=== PATIENT | female | born 1960 | race Two or more races ===

== ENCOUNTER 2022-11-18 09:34 | Emergency (ER) | payer MEDICARE, SELFPAY ==
[2022-11-18 09:54] VITALS: PULSE 75; RESP 18; TEMP 36.6; O2SAT 100; BMI 27.1
--- NOTE | 2022-11-18 09:59 | XR_ITS ---
The [address] [address] Patient Name: VIC POST MRN: [id number] date: 1960 Sex: F Assigned Patient Location: ER Current Patient Location: ED.MAIN Accession/Order Number: [id number] Exam Date: 11/18/2022 10:25 Report Date: 11/18/2022 11:14 At the request of: FLORIN RITTER Procedure: XR ribs RT min 3V w CXR1V PROCEDURE: XR shoulder RT min 2V, XR ribs RT min 3V w CXR1V HISTORY: fall COMPARISON: None. FINDINGS: BONES:Mild degenerative changes of the acromioclavicular joint and glenohumeral joint. Nondisplaced fractures involving the lateral right third and fourth ribs. SOFT TISSUES:No visible soft tissue swelling. EFFUSION:None visible. OTHER: Negative. XR/XR ribs RT min 3V w CXR1V IMPRESSION: 1. Acute, nondisplaced fractures of the lateral right third and fourth ribs. No appreciable pneumothorax or pleural effusion. 2. Mild degenerative changes of the shoulder joints. Electronically authenticated by: JAMES ALEX Date: 11/18/2022 11:14
--- NOTE | 2022-11-18 09:59 | XR_ITS ---
The [address] [address] Patient Name: VIC POST MRN: [id number] date: 1960 Sex: F Assigned Patient Location: ER Current Patient Location: ED.MAIN Accession/Order Number: [id number] Exam Date: 11/18/2022 10:25 Report Date: 11/18/2022 11:14 At the request of: FLORIN RITTER Procedure: XR shoulder RT min 2V PROCEDURE: XR shoulder RT min 2V, XR ribs RT min 3V w CXR1V HISTORY: fall COMPARISON: None. FINDINGS: BONES:Mild degenerative changes of the acromioclavicular joint and glenohumeral joint. Nondisplaced fractures involving the lateral right third and fourth ribs. SOFT TISSUES:No visible soft tissue swelling. EFFUSION:None visible. OTHER: Negative. XR/XR shoulder RT min 2V IMPRESSION: 1. Acute, nondisplaced fractures of the lateral right third and fourth ribs. No appreciable pneumothorax or pleural effusion. 2. Mild degenerative changes of the shoulder joints. Electronically authenticated by: JAMES ALEX Date: 11/18/2022 11:14
--- NOTE | 2022-11-18 09:59 | XR_ITS ---
The [address] [address] Patient Name: VIC POST MRN: [id number] date: 1960 Sex: F Assigned Patient Location: ER Current Patient Location: ER Accession/Order Number: [id number] Exam Date: 11/18/2022 10:25 Report Date: 11/18/2022 11:17 At the request of: FLORIN RITTER Procedure: XR wrist RT min 3V PROCEDURE: XR wrist RT min 3V HISTORY: fall ; pain after falling COMPARISON: None. FINDINGS: BONES:Thin curvilinear calcification lateral to the lateral margin of the distal radius without appreciable donor site. Intact carpal bones and joint spaces. SOFT TISSUES:No visible soft tissue swelling. Marked atherosclerotic disease. EFFUSION:None visible. OTHER: Negative. XR/XR wrist RT min 3V IMPRESSION: 1. Tiny cortical avulsion fracture from lateral margin of distal radius versus artifact from atherosclerotic disease. Correlate for tenderness in this area. Electronically authenticated by: JAMES ALEX Date: 11/18/2022 11:17
--- NOTE | 2022-11-18 10:00 | ED.FALL1 ---
HPI - Fall General Chief Complaint: Fall Stated Complaint: FELL INJURED R ARM Time Seen by Provider: 11/18/22 09:44 Source: patient Mode of arrival: walk-in History of Present Illness HPI Narrative: 62-year-old female presents for pain in her right wrist and shoulder and ribs. Two days ago she was walking and tripped on the sidewalk and fell and landed on this area. She didn't hit her head. She doesn't take blood thinners. the pain is moderate to severe and worse when she moves. No abdominal pain or complaints of shortness of breath. Related Data Home Medications Medication Instructions Recorded Confirmed atorvastatin 10 mg tablet 10 mg PO DAILY 11/18/22 11/18/22 carvedilol 25 mg tablet 25 mg PO BID 11/18/22 11/18/22 furosemide 40 mg tablet 40 mg PO BID 11/18/22 11/18/22 magnesium oxide 400 mg (241.3 mg 400 mg PO DAILY PRN constipation 11/18/22 11/18/22 magnesium) tablet pantoprazole 40 mg tablet,delayed 40 mg PO BID 11/18/22 11/18/22 release sodium di- and 1 tab PO QID 11/18/22 11/18/22 monophosphate-potassium phos monobasic 250 mg tablet (Loi-Phos Neutral) spironolactone 100 mg tablet 50 mg PO BID 11/18/22 11/18/22 ursodiol 300 mg capsule 300 mg PO QID 11/18/22 11/18/22 Previous Rx's Medication Instructions Recorded tramadol 50 mg tablet 50 mg PO Q8H PRN pain #20 tabs 11/18/22 Allergies Allergy/AdvReac Type Severity Reaction Status Date / Time No Known Drug Allergies Allergy Verified 11/18/22 09:57 Review of Systems ROS Narrative A ten point review of systems is negative except as noted above. Exam Narrative Exam Narrative: Nurses note and vital signs reviewed and patient is not hypoxic. General: The patient appears in no apparent distress. Skin: Warm, dry, no pallor noted. There is no rash noted. Head: Normocephalic, atraumatic Eye: Normal conjunctiva, no drainage Ears, Nose, Mouth, and Throat: oral mucosa is moist. Nares patent. Cardiovascular: Regular Rate and Rhythm Respiratory: Patient is in no distress, no accessory muscle use, lungs are clear to auscultation, no wheezing, rales or rhonchi Back: cervical, thoracic, lumbar spines are nontender GI: nontender Musculoskeletal: right hip is nontender. The right knee has some bruising and minimal tenderness. She has some mild swelling in the right wrist. Skin intact. Fingers have full range of motion. Right elbow nontender. She is reluctant to move her right shoulder and seems to have some tenderness in the scapular area. She also has some tenderness laterally in the rib region but no crepitus or break in the skin. Neurological: A&O Psychiatric: Cooperative Constitutional Vital Signs, click to edit/add: Last Vital Signs Temp 97.9 F 11/18/22 09:54 Pulse 75 11/18/22 09:54 Resp 18 11/18/22 09:54 BP 92/54 11/18/22 10:03 Pulse Ox 100 11/18/22 09:54 O2 Del Method Room Air 11/18/22 09:54 Course Vital Signs Vital signs: Vital Signs Temperature 97.9 F 11/18/22 09:54 Pulse Rate 75 11/18/22 09:54 Respiratory Rate 18 11/18/22 09:54 Pulse Oximetry 100 11/18/22 09:54 Oxygen Delivery Method Room Air 11/18/22 09:54 Temperature 97.9 F 11/18/22 09:54 Pulse Rate 75 11/18/22 09:54 Respiratory Rate 18 11/18/22 09:54 Blood Pressure 92/54 11/18/22 10:03 Pulse Oximetry 100 11/18/22 09:54 Oxygen Delivery Method Room Air 11/18/22 09:54 MDM - Fall MDM Narrative Medical decision making narrative: right 3rd and 4th rib fractures are identified. She had questionable avulsion fracture of the distal radius but on physical exam she has no tenderness in that area and I do not feel that is an acute fracture. Splint applied, application checked by me and found to be appropriate, she is neurovascularly intact. CAT scan also shows questionable liver finding. She'll raise sees a liver specialist in both [place] and in [place] and had an ultrasound of her liver two weeks ago. She'll follow-up with her established liver specialist in that regard. Treatment diagnosis and follow-up were discussed with the patient Differential Diagnosis Differential diagnosis: Likely fracture of wrist and other (rib fracture, chest contusion, pneumothorax) Lab Data Attestation: I reviewed the patient's lab results. Labs: Lab Results 11/18/22 Range/Units 11:29 WBC 8.0 (4.0-11.0) 10^3/uL RBC 3.42 L (4.20-5.40) 10^6/uL Hgb 10.7 L (12.0-16.0) g/dL Hct 31.2 L (36.0-48.0) % MCV 91.2 (81.0-99.0) fL MCH 31.3 (26.7-34.0) pg MCHC 34.3 (29.9-35.2) g/dL RDW 15.4 H (11.0-15.0) % Plt Count 73 L (150-450) 10^3/uL MPV 12.2 (9.5-13.5) fL Neut % (Auto) 79.9 H (43.0-75.0) % Lymph % (Auto) 8.1 L (20.5-60.0) % [facility] % (Auto) 11.0 (1.7-12.0) % Eos % (Auto) 0.2 L (0.9-7.0) % Baso % (Auto) 0.4 (0.2-2.0) % Neut # (Auto) 6.4 (1.4-6.5) 10^3/uL Lymph # (Auto) 0.7 L (1.2-3.8) 10^3/uL [facility] # (Auto) 0.9 H (0.3-0.8) 10^3/uL Eos # (Auto) 0.0 (0.0-0.7) 10^3/uL Baso # (Auto) 0.0 (0.0-0.1) 10^3/uL Abs Immat Gran (auto) 0.03 (0.00-0.03) 10^3/uL Imm/Tot Granulo (auto) 0.4 (0.0-0.5) % Sodium 126 L (136-145) mmol/L Potassium 4.5 (3.5-5.1) mmol/L Chloride 95 L (98-107) mmol/L Carbon Dioxide 26.5 (21.0-32.0) mmol/L Anion Gap 9.0 BUN 14.0 (7.0-18.0) mg/dL Creatinine 0.91 (0.55-1.02) mg/dL Est GFR ( Amer) >60 (>=60) Est GFR (Non-Af Amer) >60 (>=60) BUN/Creatinine Ratio 15.4 Glucose 370 H (74-106) mg/dL Calcium 7.6 L (8.5-10.1) mg/dL Imaging Data rib x-rays, chest CT, knee x-ray, wrist x-ray: Radiologist's impression: Procedure: CT chest w con EXAMINATION: CT chest w con HISTORY: fall, 3rd and 4th rib fractures COMPARISON: CT abdomen pelvis 03/30/2021 TECHNIQUE: Multi-planar CT images were obtained without and/or with IV contrast as indicated by examination type. Axial, Coronal, and Sagittal images. Dose reduction techniques were achieved by using automated exposure control and/or adjustment of mA and/or kV according to patient size and/or use of iterative reconstruction technique. FINDINGS: LUNGS: No visible pulmonary disease. PLEURA: No mass, effusion, or pneumothorax. VASCULATURE: No abnormality. FLORINA: No mass or adenopathy. MEDIASTINUM: No mass or adenopathy. CARDIAC: Atherosclerotic coronary artery disease. No pericardial effusion. AORTA: No aneurysm or dissection. CHEST WALL: No mass or axillary adenopathy. BONES: Nondisplaced acute fractures of the anterior lateral right third and fourth ribs (best seen on the coronal view). Sclerosis of a short segment of the anterior lateral left sixth and seventh ribs. LIMITED ABDOMEN: Heterogeneous nodular liver with new geographic shaped 6.0 x 4.6 x 4.7 cm area within the posterior medial right hepatic lobe demonstrating mixed density and heterogeneous enhancement. Limited images of the upper abdomen. OTHER: Negative. IMPRESSION: 1. Nondisplaced acute right third and fourth rib fractures. No pneumothorax or pleural effusion. 2. Sclerotic, slightly expansile appearance of the lateral left sixth and seventh ribs; old fractures versus bone lesions (new compared to 03/30/2021). 3. Heterogeneously enhancing geographic shaped lesion within posterior right hepatic lobe which is new since 03/30/2021 and suspicious for neoplasm. Follow-up CT abdomen pelvis with multiphase liver enhancement is recommended for further evaluation. 4. Heterogeneous nodular liver suggestive of cirrhosis. Electronically authenticated by: JAMES ALEX Date: 11/18/2022 12:26 Procedure: XR ribs RT min 3V w CXR1V PROCEDURE: XR shoulder RT min 2V, XR ribs RT min 3V w CXR1V HISTORY: fall COMPARISON: None. FINDINGS: BONES:Mild degenerative changes of the acromioclavicular joint and glenohumeral joint. Nondisplaced fractures involving the lateral right third and fourth ribs. SOFT TISSUES:No visible soft tissue swelling. EFFUSION:None visible. OTHER: Negative. IMPRESSION: 1. Acute, nondisplaced fractures of the lateral right third and fourth ribs. No appreciable pneumothorax or pleural effusion. 2. Mild degenerative changes of the shoulder joints. Electronically authenticated by: JAMES ALEX Date: 11/18/2022 11:14 Procedure: XR wrist RT min 3V PROCEDURE: XR wrist RT min 3V HISTORY: fall ; pain after falling COMPARISON: None. FINDINGS: BONES:Thin curvilinear calcification lateral to the lateral margin of the distal radius without appreciable donor site. Intact carpal bones and joint spaces. SOFT TISSUES:No visible soft tissue swelling. Marked atherosclerotic disease. EFFUSION:None visible. OTHER: Negative. IMPRESSION: 1. Tiny cortical avulsion fracture from lateral margin of distal radius versus artifact from atherosclerotic disease. Correlate for tenderness in this area. Electronically authenticated by: JAMES ALEX Date: 11/18/2022 11:17 Procedure: XR shoulder RT min 2V PROCEDURE: XR shoulder RT min 2V, XR ribs RT min 3V w CXR1V HISTORY: fall COMPARISON: None. FINDINGS: BONES:Mild degenerative changes of the acromioclavicular joint and glenohumeral joint. Nondisplaced fractures involving the lateral right third and fourth ribs. SOFT TISSUES:No visible soft tissue swelling. EFFUSION:None visible. OTHER: Negative. IMPRESSION: 1. Acute, nondisplaced fractures of the lateral right third and fourth ribs. No appreciable pneumothorax or pleural effusion. 2. Mild degenerative changes of the shoulder joints. Electronically authenticated by: JAMES ALEX Date: 11/18/2022 11:14 Procedure: XR knee RT 3V PROCEDURE: XR knee RT 3V HISTORY: fall COMPARISON: None. FINDINGS: BONES:No fracture, acute abnormality, or significant arthropathy. SOFT TISSUES:No visible soft tissue swelling. EFFUSION:None visible. OTHER: Atherosclerotic disease. IMPRESSION: 1. No acute bone abnormality or significant degenerative joint disease. Electronically authenticated by: JAMES ALEX Date: 11/18/2022 11:19 Discharge Plan Discharge Chief Complaint: Fall Clinical Impression: Closed rib fracture Patient Disposition: Home, Self-Care Time of Disposition Decision: 13:34 Condition: Good Mode of Transportation: Private Vehicle Prescriptions / Home Meds: New tramadol 50 mg tablet 50 mg PO Q8H PRN (Reason: pain) Qty: 20 0RF No Action atorvastatin 10 mg tablet 10 mg PO DAILY carvedilol 25 mg tablet 25 mg PO BID furosemide 40 mg tablet 40 mg PO BID magnesium oxide 400 mg (241.3 mg magnesium) tablet 400 mg PO DAILY PRN (Reason: constipation) pantoprazole 40 mg tablet,delayed release (DR/EC) 40 mg PO BID Loi-Phos 250 Neutral 250 mg tablet 1 tab PO QID spironolactone 100 mg tablet 50 mg PO BID ursodiol 300 mg capsule 300 mg PO QID Instructions: Rib Fracture (ED) Additional Instructions: follow-up with PCP in one week, return for any worsening symptoms Stand Alone Forms: Portal Instructions Referrals: Physician,Non-Staff, MD [Primary Care Provider] - 1 week
--- NOTE | 2022-11-18 10:01 | XR_ITS ---
The [address] [address] Patient Name: VIC POST MRN: [id number] date: 1960 Sex: F Assigned Patient Location: ER Current Patient Location: ED.MAIN Accession/Order Number: [id number] Exam Date: 11/18/2022 10:25 Report Date: 11/18/2022 11:19 At the request of: FLORIN RITTER Procedure: XR knee RT 3V PROCEDURE: XR knee RT 3V HISTORY: fall COMPARISON: None. FINDINGS: BONES:No fracture, acute abnormality, or significant arthropathy. SOFT TISSUES:No visible soft tissue swelling. EFFUSION:None visible. OTHER: Atherosclerotic disease. XR/XR knee RT 3V IMPRESSION: 1. No acute bone abnormality or significant degenerative joint disease. Electronically authenticated by: JAMES ALEX Date: 11/18/2022 11:19
[2022-11-18 10:03] VITALS: BP 92/54
--- NOTE | 2022-11-18 11:22 | CT_ITS ---
[address] [address] Patient Name: VIC POST MRN: [id number] date: 1960 Sex: F Assigned Patient Location: ER Current Patient Location: Accession/Order Number: [id number] Exam Date: 11/18/2022 11:55 Report Date: 11/18/2022 12:26 At the request of: FLORIN RITTER Procedure: CT chest w con EXAMINATION: CT chest w con HISTORY: fall, 3rd and 4th rib fractures COMPARISON: CT abdomen pelvis 03/30/2021 TECHNIQUE: Multi-planar CT images were obtained without and/or with IV contrast as indicated by examination type. Axial, Coronal, and Sagittal images. Dose reduction techniques were achieved by using automated exposure control and/or adjustment of mA and/or kV according to patient size and/or use of iterative reconstruction technique. FINDINGS: LUNGS: No visible pulmonary disease. PLEURA: No mass, effusion, or pneumothorax. VASCULATURE: No abnormality. FLORINA: No mass or adenopathy. MEDIASTINUM: No mass or adenopathy. CARDIAC: Atherosclerotic coronary artery disease. No pericardial effusion. AORTA: No aneurysm or dissection. CHEST WALL: No mass or axillary adenopathy. BONES: Nondisplaced acute fractures of the anterior lateral right third and fourth ribs (best seen on the coronal view). Sclerosis of a short segment of the anterior lateral left sixth and seventh ribs. LIMITED ABDOMEN: Heterogeneous nodular liver with new geographic shaped 6.0 x 4.6 x 4.7 cm area within the posterior medial right hepatic lobe demonstrating mixed density and heterogeneous enhancement. Limited images of the upper abdomen. OTHER: Negative. CT/CT chest w con IMPRESSION: 1. Nondisplaced acute right third and fourth rib fractures. No pneumothorax or pleural effusion. 2. Sclerotic, slightly expansile appearance of the lateral left sixth and seventh ribs; old fractures versus bone lesions (new compared to 03/30/2021). 3. Heterogeneously enhancing geographic shaped lesion within posterior right hepatic lobe which is new since 03/30/2021 and suspicious for neoplasm. Follow-up CT abdomen pelvis with multiphase liver enhancement is recommended for further evaluation. 4. Heterogeneous nodular liver suggestive of cirrhosis. Electronically authenticated by: JAMES ALEX Date: 11/18/2022 12:26
[2022-11-18 11:43] LABS: BUN Creatinine Ratio 15.4; Basophils Percent Auto 0.4 % (0.2-2.0); Calcium 7.6 mg/dL (8.5-10.1); Carbon Dioxide 26.5 mmol/L (21.0-32.0); Chloride 95 mmol/L (98-107); Eosinophils Percent Auto 0.2 % (0.9-7.0); Estimated GFR (African America >60 (>=60); Estimated GFR (Non-African Ame >60 (>=60); Glucose 370 mg/dL (74-106); Hematocrit 31.2 % (36.0-48.0); Hemoglobin 10.7 g/dL (12.0-16.0); Immature Granulocytes Abs Auto 0.03 10^3/uL (0.00-0.03); Immature Granulocytes Pct Auto 0.4 % (0.0-0.5); Lymphocytes Absolute Auto 0.7 10^3/uL (1.2-3.8); Lymphocytes Percent Auto 8.1 % (20.5-60.0); Mean Corpuscular HGB Conc 34.3 g/dL (29.9-35.2); Mean Corpuscular Hemoglobin 31.3 pg (26.7-34.0); Mean Corpuscular Volume 91.2 fL (81.0-99.0); Mean Platelet Volume 12.2 fL (9.5-13.5); Monocytes Absolute Auto 0.9 10^3/uL (0.3-0.8); Neutrophils Absolute Auto 6.4 10^3/uL (1.4-6.5); Neutrophils Percent Auto 79.9 % (43.0-75.0); Platelet Count 73 10^3/uL (150-450); Potassium 4.5 mmol/L (3.5-5.1); Red Blood Count 3.42 10^6/uL (4.20-5.40); Red Cell Distribution Width 15.4 % (11.0-15.0); Sodium 126 mmol/L (136-145)
--- NOTE | 2022-11-18 15:18 | RESP.RT ---
done per nursing
== END 2022-11-18 13:50 | disposition home or self-care (01) ==
PROVIDERS: Emergency Provider Emergency Medicine
DX: S22.41XA Multiple fractures of ribs, right side, initial encounter for closed fracture (principal); W01.0XXA Fall on same level from slipping, tripping and stumbling without subsequent striking against object, initial encounter; Z79.899 Other long term (current) drug therapy
CPT/HCPCS: 36415; 71101; 71260; 73030; 73110; 73562; 80048; 85025; 94667; 99284; Q9967

== ENCOUNTER 2023-06-22 15:01 | Emergency (ER) | payer MEDICARE, SELFPAY ==
[2023-06-22 15:25] VITALS: BP 127/65; PULSE 89; TEMP 36.7; O2SAT 99; BMI 24.9
--- NOTE | 2023-06-22 15:29 | XR_ITS ---
The [address] [address] Patient Name: VIC POST MRN: [id number] date: 1960 Sex: F Assigned Patient Location: ER Current Patient Location: ER Accession/Order Number: [id number] Exam Date: 06/22/2023 15:50 Report Date: 06/22/2023 16:19 At the request of: NASRA CALDWELL Procedure: XR knee RT 4V PROCEDURE: XR knee RT 4V COMPARISON: 11/18/2022 HISTORY: fall, right knee pain FINDINGS: BONES:No fracture, acute abnormality, or significant arthropathy. SOFT TISSUES:Medial soft tissue swelling EFFUSION:None visible. OTHER: Moderate vascular calcifications XR/XR knee RT 4V IMPRESSION: Medial soft tissue swelling, no acute fracture Electronically authenticated by: LAURENT PETTY Date: 06/22/2023 16:19
--- NOTE | 2023-06-22 15:30 | ED_ITS ---
HPI HPI - Extremity Injury (Lower) General Chief Complaint: Extremity Injury, Lower Stated Complaint: lower pain right knee Time Seen by Provider: 06/22/23 15:12 Source: patient Mode of arrival: Wheelchair Limitations: no limitations History of Present Illness HPI Narrative: Patient fell two days ago and landed onto a bent right knee. She complains of pain and swelling to the anterior right knee. She also scraped up the left knee but I can move it and put weight on it ok . Related Data Home Medications ?Medication ?Instructions ?Recorded ?Confirmed atorvastatin 10 mg tablet 10 mg PO DAILY 11/18/22 06/22/23 furosemide 40 mg tablet 40 mg PO BID 11/18/22 06/22/23 magnesium oxide 400 mg (241.3 mg 400 mg PO DAILY PRN constipation 11/18/22 06/22/23 magnesium) tablet pantoprazole 40 mg tablet,delayed 40 mg PO BID 11/18/22 06/22/23 release sodium di- and 1 tab PO QID 11/18/22 06/22/23 monophosphate-potassium phos monobasic 250 mg tablet (Loi-Phos Neutral) spironolactone 100 mg tablet 50 mg PO BID 11/18/22 06/22/23 ursodiol 300 mg capsule 300 mg PO QID 11/18/22 06/22/23 gabapentin 300 mg capsule 300 mg PO Q8H 06/22/23 06/22/23 Allergies Allergy/AdvReac Type Severity Reaction Status Date / Time No Known Drug Allergies Allergy Verified 11/18/22 09:57 Opioid HPI Opioid Management Most Recent Pain and Opioid Data: Last Pain Scale 7 06/22/23 15:27 Exam Narrative Exam Narrative: Vital signs reviewed and nurse's notes. The patient is not hypoxic. afebrile General: The patient appears well and in no apparent distress. Patient is resting comfortably on cart. GCS = 15. Skin: warm, intact, no pallor noted Head: Normocephalic, atraumatic Eye: Normal conjunctiva Cardiovascular: normal peripheral perfusion Respiratory: No acute distress, no accessory muscle use. Musculoskeletal: No evidence of deformity to the L knee, where superficial abras ions are noted but no erythema or sign of infection. RIGHT KNEE: There is moderate amount of suprapatellar swelling. There is no ecchymosis. No erythema or warmth noted. DP and PT pulses are intact 2+. Normal sensation, normal capillary refill less than 2 seconds. There is no cyanosis or mottling noted. The patient has tenderness to the medial aspect of the right knee. No pain with right patellar manipulation. The patient has no laxity with varus or valgus stressing. The patient has negative anterior drawer and Robin testing. The patient was able to flex and extend although with pain. Patient was able to extend leg off the cart without difficulty. No tenderness noted to the 5th MT, midfoot, ankle or proximal fibular area. The patient has no pelvic instability. The patient has no shortening or rotation noted to the bilateral lower extremities. Neurological: alert and orient x4, normal sensory and motor observed. Psychiatric: Cooperative Constitutional Vital Signs, click to edit/add: Last Vital Signs Temp 98.0 F 06/22/23 15:25 Pulse 89 06/22/23 15:25 Resp 16 06/22/23 15:25 BP 127/65 06/22/23 15:25 Pulse Ox 99 06/22/23 15:25 O2 Del Method Room Air 06/22/23 15:25 Course Vital Signs Vital signs: Vital Signs Temperature 98.0 F 06/22/23 15:25 Pulse Rate 89 06/22/23 15:25 Respiratory Rate 16 06/22/23 15:25 Blood Pressure 127/65 06/22/23 15:25 Pulse Oximetry 99 06/22/23 15:25 Oxygen Delivery Method Room Air 06/22/23 15:25 Temperature 98.0 F 06/22/23 15:25 Pulse Rate 89 06/22/23 15:25 Respiratory Rate 16 06/22/23 15:25 Blood Pressure 127/65 06/22/23 15:25 Pulse Oximetry 99 06/22/23 15:25 Oxygen Delivery Method Room Air 06/22/23 15:25 MDM - Extremity Injury (Lower) MDM Narrative Medical decision making narrative: Patient has liver problems and was reluctant to take tylenol or ibuprofen for the pain. Xrays of the right knee obtained. Imaging Data xr knee: Radiologist's impression: PROCEDURE: XR knee RT 4V COMPARISON: 11/18/2022 HISTORY: fall, right knee pain FINDINGS: BONES:No fracture, acute abnormality, or significant arthropathy. SOFT TISSUES:Medial soft tissue swelling EFFUSION:None visible. OTHER: Moderate vascular calcifications IMPRESSION: Medial soft tissue swelling, no acute fracture Electronically authenticated by: LAURENT PETTY Date: 06/22/2023 16:19 Discharge Plan Discharge Stand Alone Forms: Portal Instructions Chief Complaint: Extremity Injury, Lower Clinical Impression: Right knee sprain, Knee pain, right Patient Disposition: Home, Self-Care Time of Disposition Decision: 16:28 Prescriptions / Home Meds: No Action atorvastatin 10 mg tablet 10 mg PO DAILY furosemide 40 mg tablet 40 mg PO BID magnesium oxide 400 mg (241.3 mg magnesium) tablet 400 mg PO DAILY PRN (Reason: constipation) pantoprazole 40 mg tablet,delayed release (DR/EC) 40 mg PO BID Loi-Phos 250 Neutral 250 mg tablet 1 tab PO QID spironolactone 100 mg tablet 50 mg PO BID ursodiol 300 mg capsule 300 mg PO QID gabapentin 300 mg capsule 300 mg PO Q8H Print Language: Yoruba Instructions: Knee Sprain (ED), Knee Pain (ED) Referrals: FAY BERMUDEZ [Primary Care Provider] - 1 week Florentin Evans MD [Physician] - 06/28/23 9:30 am
== END 2023-06-22 16:38 | disposition home or self-care (01) ==
PROVIDERS: Emergency Provider Emergency Medicine; PCP Nurse Practitioner
DX: S83.91XA Sprain of unspecified site of right knee, initial encounter (principal); M25.561 Pain in right knee; W19.XXXA Unspecified fall, initial encounter; Z79.899 Other long term (current) drug therapy
CPT/HCPCS: 73564; 99283

== ENCOUNTER 2024-04-07 15:52 | Emergency (ER) | payer MEDICARE, SELFPAY ==
[2024-04-07 16:14] VITALS: BP 102/40; PULSE 70; TEMP 36.8; O2SAT 98; BMI 27.4
[2024-04-07 17:02] LABS: Internal Control Within Normal Limits; SARS-CoV-2 Ag NEGATIVE (NEGATIVE)
--- NOTE | 2024-04-07 17:41 | ED.URI1 ---
HPI - URI/Sore Throat General Chief Complaint: Upper Respiratory Infection Stated Complaint: Flu Symptoms Time Seen by Provider: 04/07/24 17:07 Source: patient History of Present Illness HPI Narrative: Patient is a 64-year-old female presents to the emergency department for 2-day history of flulike illness. She states her granddaughter had COVID last week. Patient has had no fevers, chest pain or shortness of breath. She reports a cough and nasal congestion and 2 days of diarrhea. No medications taken prior to arrival. She denies abdominal pain or vomiting. Related Data Home Medications ?Medication ?Instructions ?Recorded ?Confirmed atorvastatin 10 mg tablet 10 mg PO DAILY 11/18/22 06/22/23 furosemide 40 mg tablet 40 mg PO BID 11/18/22 06/22/23 magnesium oxide 400 mg (241.3 mg 400 mg PO DAILY PRN constipation 11/18/22 06/22/23 magnesium) tablet pantoprazole 40 mg tablet,delayed 40 mg PO BID 11/18/22 06/22/23 release sodium di- and 1 tab PO QID 11/18/22 06/22/23 monophosphate-potassium phos monobasic 250 mg tablet (Loi-Phos Neutral) spironolactone 100 mg tablet 50 mg PO BID 11/18/22 06/22/23 ursodiol 300 mg capsule 300 mg PO QID 11/18/22 06/22/23 gabapentin 300 mg capsule 300 mg PO Q8H 06/22/23 06/22/23 Previous Rx's ?Medication ?Instructions ?Recorded uadwiyphevlarna-znrnetapudlslsb-PG 10 ml PO Q6H PRN cold symptoms 04/07/24 2 mg-30 mg-10 mg/5 mL oral syrup #200 mL (Bromfed DM) ondansetron 4 mg disintegrating 4 mg PO Q6H PRN nausea and 04/07/24 tablet vomiting #12 tabs Allergies Allergy/AdvReac Type Severity Reaction Status Date / Time No Known Drug Allergies Allergy Verified 11/18/22 09:57 Review of Systems ROS Constitutional Denies: fever or chills Ears, nose, mouth, and throat Reports: nasal congestion; Denies: throat pain Cardiovascular Denies: chest pain Respiratory Reports: cough; Denies: shortness of breath Gastrointestinal Reports: diarrhea; Denies: nausea or vomiting Integumentary/Breast Denies: rash Neurological Denies: numbness in extremities or weakness in extremities Hematologic/Lymphatic Denies: easy bruising or easy bleeding PFSH PFS Social History Little interest or pleasure in doing things: not at all Feeling down, depressed, or hopeless: not at all Exam Narrative Exam Narrative: Gen.: Awake, alert, in no distress Head: Normocephalic, atraumatic ENT: Moist mucous membranes Respiratory: No respiratory distress, lungs clear bilaterally Cardio: Regular rate and rhythm Gastrointestinal: Abdomen is soft, nondistended and nontender to palpation Extremities: Moves extremities equally Psych: Normal mood and affect Neuro: No focal neuro deficit Skin: Warm, dry, intact Constitutional Vital Signs, click to edit/add: Last Vital Signs Temp 98.2 F 04/07/24 16:14 Pulse 70 04/07/24 16:14 Resp 18 04/07/24 16:14 BP 102/40 L 04/07/24 16:14 Pulse Ox 98 04/07/24 16:14 O2 Del Method Room Air 04/07/24 16:14 Course Vital Signs Vital signs: Vital Signs Temperature 98.2 F 04/07/24 16:14 Pulse Rate 70 04/07/24 16:14 Respiratory Rate 18 04/07/24 16:14 Blood Pressure 102/40 L 04/07/24 16:14 Pulse Oximetry 98 04/07/24 16:14 Oxygen Delivery Method Room Air 04/07/24 16:14 Temperature 98.2 F 04/07/24 16:14 Pulse Rate 70 04/07/24 16:14 Respiratory Rate 18 04/07/24 16:14 Blood Pressure 102/40 L 04/07/24 16:14 Pulse Oximetry 98 04/07/24 16:14 Oxygen Delivery Method Room Air 04/07/24 16:14 MDM - URI/Sore Throat MDM Narrative Medical decision making narrative: COVID test is negative, patient is hemodynamically stable with normal vital signs. She has no abdominal pain or vomiting. She has no complaints of chest pain or shortness of breath. She was given instructions for likely viral illness, Bromfed-DM and Zofran given for home. Push fluids. Return to the ER if symptoms change or worsen. SUPERVISED APC VISIT, PHYSICIAN ATTESTATION: Based on the medical record the care appears appropriate. ? Medical Records Attestation: I reviewed the patient's medical records. Lab Data Attestation: I reviewed the patient's lab results. Labs: Lab Results 04/07/24 Range/Units 16:20 SARS-CoV-2 Ag (CV2AG) Negative (NEGATIVE) Discharge Plan Discharge Chief Complaint: Upper Respiratory Infection Clinical Impression: Upper respiratory infection, Flu-like symptoms Patient Disposition: Home, Self-Care Time of Disposition Decision: 17:38 Condition: Good Prescriptions / Home Meds: New fopuymehcrqyhju-ynonpiuri-SY [Bromfed DM] 2-30-10 mg/5 mL syrup 10 ml PO Q6H PRN (Reason: cold symptoms) Qty: 200 0RF ondansetron 4 mg tablet,disintegrating 4 mg PO Q6H PRN (Reason: nausea and vomiting) Qty: 12 0RF No Action atorvastatin 10 mg tablet 10 mg PO DAILY furosemide 40 mg tablet 40 mg PO BID magnesium oxide 400 mg (241.3 mg magnesium) tablet 400 mg PO DAILY PRN (Reason: constipation) pantoprazole 40 mg tablet,delayed release (DR/EC) 40 mg PO BID Loi-Phos 250 Neutral 250 mg tablet 1 tab PO QID spironolactone 100 mg tablet 50 mg PO BID ursodiol 300 mg capsule 300 mg PO QID gabapentin 300 mg capsule 300 mg PO Q8H Print Language: Kazakh Instructions: Upper Respiratory Infection (ED) Referrals: FAY BERMUDEZ [Primary Care Provider] - 1 week
[2024-04-07] MEDS: ONDANSETRON 4 MG RAPDIS TABLET SL (18:10)
[2024-04-07] MEDS: DEXAMETHASONE SOD PHOS 10 MG/ML VIAL PO (18:10)
[2024-04-07 18:16] VITALS: PULSE 76; O2SAT 97; O2SAT 99
== END 2024-04-07 18:17 | disposition home or self-care (01) ==
PROVIDERS: Emergency Provider Student in an Organized Health Care Education/Training Program; PCP Nurse Practitioner
DX: J06.9 Acute upper respiratory infection, unspecified (principal); R05.9 Cough, unspecified
CPT/HCPCS: 87811; 99283; J1100; Q0162

== ENCOUNTER 2024-04-18 15:33 | Outpatient (OUT) | payer MEDICARE, SELFPAY ==
--- NOTE | 2024-04-18 16:00 | XR_ITS ---
The [address] [address] Patient Name: VIC POST MRN: [id number] date: 1960 Sex: F Assigned Patient Location: [facility] Current Patient Location: [facility] Accession/Order Number: [id number] Exam Date: 04/18/2024 16:37 Report Date: 04/18/2024 16:46 At the request of: FAY BERMUDEZ Procedure: XR chest 2V PA AND LATERAL CHEST: CLINICAL HISTORY: Wheezing, cough, body aches COMPARISON: 11/18/2022 chest x-ray and CT There is no focal parenchymal consolidation, effusion or pneumothorax. The cardiac, hilar and mediastinal silhouettes are within normal limits. There is no vascular congestion. There is subtle dextroscoliotic curvature. No acute osseous abnormalities are seen. There are hemostasis clips at the right upper quadrant. New embolization coils are present in the epigastric region. XR/XR chest 2V IMPRESSION: NO ACUTE CARDIOPULMONARY ABNORMALITY. Impression dictated by: Mari Tanner M.D.04/18/2024 4:46 PM Dictation Location: [place] [address] Electronically authenticated by: [id number] Y Date: 04/18/2024 16:46
== END 2024-04-18 15:34 | disposition home or self-care (01) ==
LOC: RAD 15:34
PROVIDERS: PCP Nurse Practitioner; Visit Provider Nurse Practitioner
DX: R06.02 Shortness of breath (principal); R06.2 Wheezing
CPT/HCPCS: 71046

== ENCOUNTER 2024-09-14 20:47 | Inpatient (IN) | payer MEDICARE, SELFPAY ==
[2024-09-14 20:52] VITALS: BP 155/94; PULSE 100; TEMP 37.2; O2SAT 98; BMI 20.1
[2024-09-14 20:53] VITALS: O2SAT 99
[2024-09-14 20:56] VITALS: BP 158/93; O2SAT 99
--- OUTSIDE RECORDS SUMMARY | 2024-09-14 20:56 | XMS_ITS | CCD ---
Author Organization [facility] CliniSymt Care Team Providers Care Distribution System Operator Name Role Phone DC Procedure Practitioner Unavailab ADALBERTO Campbell Surgeon Unavailable ADALBERTO VOGEL Attending Unavailable ADALBERTO VOGEL Admitting Unavailable SELF, REFERRED Referring Unavailable RAIN HEBERT Primary Care Unavailable PHONG, DR RAIN Strong Primary Care Unavailable PHONG, DR RAIN Strong Consulting Unavailable PHONG, DR RAIN Strong Attending Unavailable PHONG, DR RAIN Strong Admitting Unavailable LAURENT CLARK JR Attending Unavailable LAURENT CLARK JR Admitting Unavailable LAURENT CLARK JR Consulting Unavailable PHONG, DR RAIN Strong Primary Care Unavailable HEBERT, DR RAIN Strong Primary Care Unavailable MISC, DR LINDSEY Attending Unavailable MISC, DR LINDSEY Admitting Unavailable MISC, DR LINDSEY Consulting Unavailable FLORIN RITTER Admitting Unavailable FLORIN RITTER Attending Unavailable PHONG, DR RAIN Strong Primary Care Unavailable ZIEBER, DR JAMES Edward Consulting Unavailable FLORIN RITTER Consulting Unavailable JAVI, DR HAMMONDS Attending Unavailable JAVI, DR HAMMONDS Admitting Unavailable PHONG, DR RAIN Strong Primary Care Unavailable JAVI, DR HAMMONDS Consulting Unavailable JAVI, DR HAMMONDS Consulting Unavailable MARY, DR DELUNA Admitting Unavailable PHONG, DR RAIN Strong Primary Care Unavailable MARY, DR DELUNA Attending Unavailable Jena Melara Consulting Unavailable MARGARITA KEENE Attending Unavailable MARGARITA KEENE Admitting Unavailable MARGARITA KEENE Consulting Unavailable PHONG, DR RAIN Strong Primary Care Unavailable FELISHA DA SILVA Consulting Unavailable JOSIE PATTERSON Consulting Unavailable Sonal Jj Consulting Unavailable MAPUS, TONDRA Attending Unavailable MAPUS, TONDRA Admitting Unavailable MAPUS, TONDRA Consulting Unavailable PHONG, DR RAIN Strong Primary Care Unavailable LAURENT CLARK JR Attending Unavailable LAURENT CLARK JR Admitting Unavailable LAURENT CLARK JR Consulting Unavailable PHONG, DR RAIN Strong Primary Care Unavailable Mapus, Tondra Unavailable Laurnet Clark Unavailable Mickey Lovett Unavailable MD Rain Hebert Primary Care Provider Mapus RESAW FEEDER Tona Bryson Attending Provider MD Mickey Lovett Other Provider MD Rain Hebert Primary Care Provider Map, RESAW FEEDER Tondra K Attending Provider MD Nimesh Chin Attending Provider Nimesh Chin Unavailable MD Rain Hebert Primary Care Provider Mapus RESAW FEEDERWily Schulza Bryson Attending Provider MD Nimesh Chin Attending Provider NO FAMILY, PHYSICIAN Primary Care Provider Unava ilable MD Mickey Lovett Other Provider Al Gómez Unavailable Rain Hebert MD Primary Care Provider [phone] Nimesh Chin Unavailable MD Rain Hebert Primary Care Provider [employer] RESAW FEEDER Tona K Attending Provider NO FAMILY, PHYSICIAN Primary Care Provider Unava ilable MD Nimesh Chin Attending Provider MD Nimesh Chin Attending Provider [phone] JESSIE Lewis Primary Care Provider MD Mickey Lovett Other Provider Map[employer] RESAW FEEDER Tondra Massey Attending Provider [phone] NICOL Lewis-Jona Ward Primary Care Provider ALLY Elama Bryson Attending Provider MD Mickey Lovett Other Provider DO Harsha Wren Emergency Provider MD Danielle Sterling Admit Provider MD Danielle Glass Attending Provider Nimesh Chin MD Unavailable RAIN HEBERT Primary Care Unavailable SALLIE WEST ([place]) Referring Unavailable MD Arnoldo Arguello Attending Provider MD Nimesh Chin Other Provider Rain Hebert MD Primary Care Provider Joshua, JITTERBUG OPERATOR-C Chapis Ward Primary Care Provider ALLY Elam Attending Provider Joshua, JITTERBUG OPERATOR-C Chapis Ward Primary Care Provider MD Mickey Lovett Attending Provider MD Jena Cohen Referring Provider Joshua, Chapis L Admitting Unavailable Joshua, Chapis L Attending Unavailable Joshua, Chapis L Attending Unavailable Joshua, Chapis L Admitting Unavailable Joshua, Chapis L Attending Unavailable Joshua, Chapis L Attending Unavailable Joshua, Chapis L Attending Unavailable Joshua, Chapis L Primary Care Physician Dalia HOWE, Al Willams Unavailable Nimesh Chin MD Unavailable Joshua JITTERBUG OPERATOR-C, Chapis Ward Primary Care Provider Harsha Wren DO Emergency Provider Sarah Wolf MD Admit Provider Sarah Helm MD Attending Provider [phone] Teodora Fajardo MD Other Provider Rubin Kang MD Other Provider Jillian Mohan APRN Other Provider [phone] Jasiel Issa DO Other Provider Tremayne Pak MD Other Provider George Arciniega MD Other Provider Tamanna Barajas MD Other Provider Roger Robbins DO Other Provider Jena Long MD Other Provider Solo Waite DO Other Provider Forest Quiroz MD Attending Provider Darion Goss DO Emergency Provider [phone] Jordan Thomson DO Attending Provider Roger Robbins DO Attending Provider [phone] RAIN HEBERT Primary Care Unavailable Narda'ANGUIANOJENA Bolanos S Referring Unavailable NOEMI LOCKETT Attending Unavailable RAIN HEBERT Primary Care Unavailable Narda'JENA ANGUIANO Referring Unavailable Harsha Wren DO Emergency Provider Gini Roberto MD, Digna Other Provider Roger Robbins DO Attending Provider Tremayne Pak MD Attending Provider Kraig Hubbard DO Other Provider Kali Mccrary MD Other Provider Ricardo Mena DO Other Provider Emely HOWE, Deshaun Emergency Provider [phone] Mack Carmona MD Admit Provider Aly Hooks MD Attending Provider [phone] Scotty, Teodora Consulting Unavailable Forest Quiroz Attending Unavailable Chapis Lewis Primary Care Unavailable Sarah Helm Admitting Unavailable Rubin Kang Consulting Unavailable Jillian Mohan Consulting Unavailable Jasiel Issa Jr Consulting UnavailTremayne Mclaughlin Consulting Unavaila ble George Arciniega Consulting Unavailable Tamanna Barajas Consulting Unavailable Roger Robbins Consulting Unavailable Jena Long II Consulting UnavailSolo Jorge Consulting Unavailable Mack Carmona Admitting Unavailab Aly Villaseñor Attending Unavailable Joshua, Chapis Ward Primary Care Unavailable Keister, Darion Bolanos Attending Unavailable Keister, Darion A Admitting Unavailable Joshua, Chapis Ward Primary Care Unavailable Itzel, Roger A Attending Unavailable Itzel, Roger A Admitting Unavailable Joshua, Chapis Ward Primary Care Unavailable Jena Cohen Referring Unavailable Bakhous, Aziz Admitting Unavailable Joshua, Chapis Ward Primary Care Unavailable Bakhous, Aziz Attending Unavailable Bunting, Jordan R Attending Unavailable Bunting, Jordan R Admitting Unavailable Joshua, Chapis Ward Primary Care Unavailable Itzel, Roger A Attending Unavailable Itzel, Roger A Admitting Unavailable Joshua, Chapis Ward Primary Care Unavailable Joshua, Chapis L Attending Unavailable MOE KELLEY Attending Unavailab le Joshua, Chapis L Admitting Unavailable Joshua, Chapis L Attending Unavailable Joshua, Chapis L Attending Unavailable Joshua, Chapis L Attending Unavailable Allergies Allergy Classification Reported Allergen(s) Allergy Type Date of Onset Reaction(s) Facility (2 sources) No Known Medication Allergies; Translations: [No Known Medication Allergies] Propensity to adverse reactions (disorder) [facility] Medications Current Medications Medication Drug Class(es) Dates Sig (Normalized) Sig (Original) Acetaminophen / HYDROcodone (3 sources) Opioid Agonist HYDROcodone-Acet am inophen Active atorvastatin 10 mg oral tablet (20 sources) HMG-CoA Reductase Inhibitor Start: 01-03-2019 End: 06-04-2023 take 1 tablet by mouth once daily atorvastatin 10 mg Tab 10 mg = 1 tab(s), Oral, Daily, Refills(s) 0 Start Date: 01/03/19 Status: Ordered Repeat number: 1 blood sugar diagnostic (ONE TOUCH TEST MISC) (16 sources) blood sugar diagnostic (ONE TOUCH TEST MISC) Active blood sugar diag nostic (ONE TOUCH TEST MISC) Blood-Glucose Meter kit (2 sources) Start: 08-21-2024 Blood-Glucose Meter kit Active August 21, 2024 12:00am As Directed Calcium Carbonate-Vitamin D2 600 mg calcium- 200 unit tablet (2 sources) Start: 08-19-2024 take 1 tablet by mouth once daily Calcium Carbonate-Vitamin D2 600 mg calcium- 200 unit tablet Active 1 TAB PO Daily August 19, 2024 12:00am Complies with drug therapy 60 actuat fluticasone propionate 0.05 mg/actuat dry powder inhaler (16 sources) Corticosteroid take 1 puff(s) by inhalation twice daily Fluticasone Propionate 50 mcg/actuation diskus inhaler Inhale 1 Puff as instructed twice daily. Active Comment on above: Inhale 1 Puff as ins tructed twice daily. fluticasone / salmeterol (1 source) Corticosteroid, beta2-Adrenergic Agonist Start: 04-18-2024 End: 07-17-2024 take 1 puff(s) by inhalation twice daily Advair Diskus 250 mcg-50 mcg inhalation powder 1 puff(s), Inhalation, BID for 90 day(s), 180 EA, Refill(s) 0, [facility], 155.8, cm, 04/18/24 14:43:00 EST, Height/Length Dosing, 61.8, kg, 04/18/24 14:43:00 EST, Weight Dosing Start Date: 04/18/24 Stop Date: 07/17/24 Status: Ordered furosemide 20 mg oral tablet (20 sources) Loop Diuretic Start: 11-30-2023 take 1 tablet by mouth once daily Furosemide (Lasix) 20 mg tablet Active 20 MG PO Daily November 30, 2023 2:31pm Complies with drug therapy Start: 06-15-2023 End: 11-30-2023 take 1 tablet by mouth twice daily Furosemide (Lasix) 20 mg tablet Discontinued 20 MG PO Twice daily June 15, 2023 12:00am November 30, 2023 2:32pm Start: 06-01-2023 End: 08-27-2023 take 1 tablet by mouth once daily furosemide (LASIX) 20 mg tablet Take 1 tablet by mouth once daily. 90 tablet 3 08/27/2023 Active Start: 04-18-2023 End: 05-24-2023 take 1 tablet by mouth twice daily Furosemide 40 mg tablet Discontinued 40 MG PO Twice daily April 20, 2023 1:29pm May 24, 2023 1:16pm Start: 12-25-2020 take 1 tablet by karel th every twelve hours Furosemide 40 MG 1 tablet Orally TWICE A DAY for 30 days Apr, Active Start: 12-25-2020 take 40 mg by mouth once daily Furosemide Active 40 MG PO Daily April 20, 2023 12:29pm Start: 12-25-2020 End: 04-20-2023 take 1 tablet by mouth once daily Furosemide 20 mg tablet Discontinued 20 MG PO Daily December 25, 2020 12:00am April 20, 2023 1:29pm Comment on above: furosemide 40 mg tab let TAKE 1 TABLET BY MOUTH ONCE DAILY Take 1 tablet by karel th once daily. gabapentin 300 mg oral capsule (20 sources) Anti-epileptic Agent Start: End: take 1 capsule by mouth three times daily gabapentin 300 mg Cap 300 mg = 1 cap(s), Oral, TID, X 90 day(s), # 270 cap(s), Refills(s) 3, Pharmacy: [id number], 155.8, cm, 01/13/24 14:55:00 EST, Height/Length Dosing, 64.7, kg, 01/13/24 14:55:00 EST, Weight Dosing Start Date: 01/13/24 Stop Date: 01/07/25 Status: Ordered Quantity: 270.0 Unit: cap(s) Repeat number: 4 Comment on above: Take 300 mg by mouth three times daily. Insulin Aspart U-100 100 unit/mL (3 mL) Insulin Pen (4 sources) Start: 5 inject 4 [IU] by subcutaneous injection once before mealtime Insulin Aspart U-100 100 unit/mL (3 mL) Insulin Pen Active 4 UNIT SUBCUT 3x/Day before meals 0 July 08, 2024 12:00am 3 ml insulin aspart, human 100 unt/ml pen injector (20 sources) Insulin Analog Start: 5 inject 5 [IU] by subcutaneous injection once before mealtime Insulin Aspart U-100 100 unit/mL (3 mL) Insulin Pen Active 5 UNIT SUBCUT 3x/Day before meals 4.5 August 21, 2024 12:00am Complies with drug therapy Start: 08-19-2024 inject 10 [IU] by kay bcutaneous injection once before mealtime Insulin Aspart U-100 100 unit/mL (3 mL) Insulin Pen Active 10 UNIT SUBCUT 3x/Day before meals August 19, 2024 12:00am Complies with drug therapy Start: 07-08-2024 End: 08-19-2024 inject 4 [IU] by subcutaneous injection once before mealtime Insulin Aspart U-100 100 unit/mL (3 mL) Insulin Pen Discontinued 4 UNIT SUBCUT 3x/Day before meals 0 July 08, 2024 12:00am August 19, 2024 8:24pm Start: 07-21-2023 End: 07-21-2023 inject 50 [IU] by subcutaneous injection once daily Insulin Aspart (Niacinamide) (Fiasp Flextouch U-100 Insulin) 100 unit/mL (3 mL) insulin pen Active 0 SUBCUT Use as Directed July 21, 2023 2:32pm 4-6-8-10 units ac according to meal size plus ISS 1:30 ac, (hs if >200 half dose)(expect up to 50 units/day) Complies with drug therapy Start: 05-24-2023 End: 07-21-2023 Insulin Aspart U-100 (Novolo g Flexpen U-100 Insulin) 100 unit/mL (3 mL) insulin pen Discontinued 0 UNIT SUBCUT Every 6 hours Protocol: *If the corrective scale dose has been administered within the past 4 hours, do not use corrective scale again unless approved by prescriber* Condition: Corrective Scale #1 (TDI Condition: Dose/Route: Instructions: Condition: Fingerstick Blood Glucose Dose/Route: Insulin Units Condition: 150-199 mg/dl Dose/Route: 1 unit Condition: 200-249 mg/dl Dose/Route: 2 unit Condition: 250-299 mg/dl Dose/Route: 3 unit Condition: 300-349 mg/dl Dose/Route: 4 unit Condition: 350-399 mg/dl Dose/Route: 5 unit Condition: greater than or = 400 mg/dl Dose/Route: 6 unit Instructions: Call Provider June 15, 2023 1:44pm July 21, 2023 1:59pm Please contact the information source for Protocol details. Start: 04-20-2023 End: 05-24-2023 Insulin Aspart (Niacinamide) (Fiasp Flextouch U-100 Insulin) 100 unit/mL (3 mL) insulin pen Discontinued 0 SUBCUT .COMPLEX April 20, 2023 1:30pm May 24, 2023 1:16pm 8-10-15-18 units ac according to meal size plus ISS 1:20 ac, (hs if >200 half dose),(expect up to 50 units/day) Start: 04-18-2023 End: 04-20-2023 Insulin Aspart (Niacinamide) (Fiasp Flextouch U-100 Insulin) 100 unit/mL (3 mL) insulin pen Discontinued 0 SUBCUT .COMPLEX April 18, 2023 1:00am April 20, 2023 1:34pm subcutaneously; FreeTextSi-10-15-18 units ac according to meal size plus ISS 1:20 ac, (hs if >200 half dose). Subcutaneous qid; Note: Source Status: Taking(expect up to 50 units/day); Provider: Papa Massey Start: 02-11-2021 Fiasp FlexTouc h 100 UNIT/ML 10-12-15 units ac according to meal size. Corrective scale 1:20 ac (hs if >200 half dose) Subcutaneous as directed Aug, Active Start: 02-10-2021 inject 38 [IU] by kay bcutaneous injection once Fiasp FlexTouch 100 units/mL injectable solution See Instructions, 38 units sub q once a eber, Refills(s) 0 Start Date: 02/10/21 Status: Ordered Repeat number: 1 Fiasp FlexTouch 100 UNIT/ML 8-10-15-18 units ac according to meal size plus ISS 1:20 ac, (hs if >200 half dose). Subcutaneous qid (expect up to 50 units/day) Active 3 ml insulin glargine 100 unt/ml pen injector (20 sources) Insulin Analog Start: 08-19-2024 Insulin Glargi ne (Lantus Solostar U-100 Insulin) 100 unit/mL (3 mL) Insulin Pen Active 42 UNIT SUBCUT Twice daily August 19, 2024 12:00am Complies with drug therapy Start: 07-08-2024 End: 08-19-2024 Insulin Glargine (Lantus Yeimi ostar U-100 Insulin) 100 unit/mL (3 mL) Insulin Pen Discontinued 42 UNIT SUBCUT Daily 0 July 08, 2024 12:00am August 19, 2024 8:24pm Start: 05-31-2023 inject 30 [IU] by kay bcutaneous injection once daily in the morning insulin glargine 100 unit/mL (3 mL) Inject 30 Units subcutaneously every morning. Daily at 9 am 05/31/2023 Active Start: 07-14-2019 End: 04-20-2023 Insulin Glargine U-300 Conc (Toujeo Solostar U-300 Insulin) 300 unit/mL (1.5 mL) Insulin Pen Discontinued 40 UNIT SUBCUT Daily July 14, 2019 12:00am April 20, 2023 1:31pm Start: 01-03-2019 End: 07-14-2019 inject 25 [IU] by subcutaneous injection once daily Insulin Glargine (Lantus U-100 Insulin) 100 unit/mL Solution Discontinued 25 UNIT SUBCUT Daily January 03, 2019 1:00am July 14, 2019 7:57am insulin glargine U-300 conc (TOUJEO SOLOSTAR U-300 INSULIN) 300 unit/mL (1.5 mL) Inject 100 Units subcutaneously daily at bedtime. 0 Active Comment on above: Inject 100 Units sub cutaneously daily at bedtime. Inject 30 Units subc utaneously every morning. Daily at 9 am insulin lispro 100 unt/ml injectable solution (20 sources) Insulin Analog Start: 09-08-19 inject 38 [IU] by subcutaneous injection once daily HumaLOG 100 units/mL injectable solution 38 unit(s), SubCutaneous, Daily, # 10 mL, Refills(s) 3, Pharmacy: [id number], 155.8, cm, 08/30/24 14:09:00 EDT, Height/Length Dosing, 61.8, kg, 08/30/24 14:15:00 EDT, Weight Dosing Start Date: 09/07/24 Status: Ordered Quantity: 10.0 Unit: mL Repeat number: 4 Start: 05-31-2023 inject 5 [IU] by sub cutaneous injection at mealtime insulin lispro 100 unit/mL injection Inject 5 Units subcutaneously with meals. Please hold if skipping a meal 05/31/2023 Active Start: 08-23-2017 End: 08-23-2017 inject 3 [IU] by subcutaneous injection three times daily Insulin Lispro (Humalog U-100 Insulin) 100 unit/mL Cartridge Discontinued 3 UNITS SUBCUT Three times daily August 23, 2017 12:00am August 23, 2017 11:36am insulin lispro ( HUMALOG PEN SUBCUTANEOUS) Inject subcutaneously. 0 Active Comment on above: Inject subcutaneousl y. Inject 5 Units subcu taneously with meals. Please hold if skipping a meal isopropyl alcohol 0.7 ml/ml medicated pad (2 sources) Start: 08-22-19 Alcohol Swabs pads, medicated Active 1 PAD TOPICAL Four times daily 100 August 21, 2024 12:00am glucose checks four times daily Complies with drug therapy iv contrast (will be provided with radiology test) (1 source) Start: 07-20-19 End: 07-21-19 iv contrast (will be provided with radiology test) MRI PANC/TRISTAN Inject, intravenously, once for 1 dose. No IV access, insert saline lock prior to the beginning of sedation, infusion, injection of imaging exam. Discontinue saline lock post exam. If Pt. has a central line or IVAD, may access for administration according to line specific nursing protocol. Once exam is complete flush line and de-access according to line specific nursing protocol in the MR contrast administration guidelines link. 1 Each 0 07/20/2023 07/21/2023 Active levoFLOXacin 500 mg oral tablet (1 source) Quinolone Antimicrobial Start: 04-18-19 End: 04-25-19 take 1 tablet by mouth every twenty-four hours levofloxacin 500 mg Tab 500 mg = 1 tab(s), Oral, q24hr, X 7 day(s), # 7 tab(s), Refills(s) 0, Pharmacy: [id number], 155.8, cm, 04/18/24 14:43:00 EST, Height/Length Dosing, 61.8, kg, 04/18/24 14:43:00 EST, Weight Dosing Start Date: 04/18/24 Stop Date: 04/25/24 Status: Ordered magnesium oxide 400 mg oral tablet (20 sources) Start: 11-30-19 take 1 tablet by mouth once daily Magnesium Oxide 400 mg magnesium tablet Active 400 MG PO Daily November 30, 2023 12:00am Complies with drug therapy Start: 06-03-2023 End: 06-15-2023 take 1 capsule by mouth once daily Magnesium Oxide 400 mg magnesium capsule Discontinued 400 MG PO Daily June 03, 2023 5:20pm June 15, 2023 1:45pm Start: 04-18-2023 End: 05-24-2023 take 1 tablet by mouth once daily as needed Start: 07-14-2022 take 1 tablet by karel th every twenty-four hours Start: 07-13-2022 magnesium oxid e See Instructions, one orally daily, Refills(s) 0 Start Date: 07/13/22 Status: Ordered Repeat number: 1 Start: 07-13-2022 magnesium oxid e See Instructions, one orally daily, Refills(s) 0 Start Date: 07/13/22 Status: Ordered pantoprazole 40 mg delayed release oral tablet (20 sources) Proton Pump Inhibitor Start: 06-15-2023 take 1 tablet by mouth once daily Pantoprazole [address] Tab See Instructions, TAKE 1 TABLET BY MOUTH DAILY, # 90 tab(s), Refills(s) 3, Pharmacy: [id number], 155.8, cm, 12/21/22 13:11:00 EDT, Height/Length Dosing, 70, kg, 12/21/22 13:11:00 EDT, Weight Dosing Start Date: 01/10/24 Status: Ordered Quantity: 90.0 Unit: tab(s) Repeat number: 1 Start: 05-24-2023 End: 06-15-2023 take 40 mg intravenously twice daily Pantoprazole 40 mg Recon Soln Discontinued 40 MG IV-PUSH Twice daily May 24, 2023 12:00am June 15, 2023 1:45pm Start: 05-24-2023 End: 06-15-2023 take 40 mg intravenously twice daily Pantoprazole 40 mg Recon Soln Discontinued 40 MG IV-PUSH Twice daily May 24, 2023 12:00am June 15, 2023 1:45pm Start: 04-18-2023 take 1 tablet by mouth once da stanislaw Start: 10-27-2022 End: 05-24-2023 take 1 tablet by mouth twice daily Pantoprazole 40 mg tablet,delayed release (DR/EC) Discontinued 40 MG PO Twice daily 60 October 27, 2022 12:00am May 24, 2023 1:16pm Start: 01-03-2019 End: 10-27-2022 take 1 tablet by mouth once daily Pantoprazole 40 mg tablet,delayed release (DR/EC) Discontinued 40 MG PO Daily January 03, 2019 1:00am October 27, 2022 1:01pm Comment on above: Take 40 mg by mouth once daily. polyethylene glycol 3350 [id number] mg powder for oral solution (20 sources) Osmotic Laxative Start: 07-08-2024 Polyethylene Glycol 3350 (Miralax) 17 gram/dose powder Active 17 GM PO Daily as needed for constipation July 08, 2024 1:21pm Complies with drug therapy Start: 05-31-2023 End: 07-08-2024 Polyethylene Glycol 3350 (Mi ralax) 17 gram/dose powder Discontinued 17 GM PO Three times daily June 15, 2023 12:00am July 08, 2024 1:21pm Comment on above: Take 1 Packet by karel three times a day. Dissolve dose in 4 - 8 ounces of liquid and take as directed. rifAXIMin 550 mg oral tablet (10 sources) Rifamycin Antibacterial Start: End: take 1 tablet by mouth twice daily rifAXIMin (XIFAXAN) 550 mg tablet Indications: Hepatic encephalopathy (HCC) Take 1 tablet by mouth two times a day. 60 tablet 11 05/28/2023 05/22/2024 Active Comment on above: Take 1 tablet by karel two times a day. Sennosides (Senna Lax) 8.6 mg Tablet (4 sources) Start: 025 take 1 tablet by mouth twice daily as needed for constipation Sennosides (Senna Lax) 8.6 mg Tablet Active 8.6 MG PO Twice daily as needed for constipation 0 July 08, 2024 12:00am tiotropium (16 sources) Anticholinergic take 2 puff(s) by inhalation once daily tiotropium bromide 1.25 mcg/actuation mist Inhale 2 Puffs as instructed once daily. Active take 2 puff(s) by inhalation onc e daily tiotropium bromide 1.25 mcg/actuation mist Inhale 2 Puffs as instructed once daily. 0 Active Comment on above: Inhale 2 Puffs as in structed once daily. traMADol hydrochloride 50 mg oral tablet (3 sources) Opioid Agonist Start: 08-30-2024 take 1 tablet by mouth every four hours as needed for pain traMADOL 50 mg Tab TAKE 1 TABLET BY MOUTH EVERY 4 HOURS NEEDED FOR PAIN FOR 7 DAYS Start Date: 08/30/24 Status: Ordered Repeat number: 1 Start: 08-23-2024 take 1 tablet by karel th every four hours as needed for pain Tramadol 50 mg tablet Active 50 MG PO Q4H as needed for Pain 42 7 August 23, 2024 12:00am dispense 42 (forty-two) tablets diagnosis S72.141D Complies with drug therapy Vitamin A 8000 UNIT (20 sources) take 1 capsule by mouth once richi ly at mealtime take 1 capsule by mo uth once daily at mealtime Vitamin A 8000 UNIT 1 capsule with food or milk Orally Once a day Active Vitamin D 125 MCG (5000 UT) (20 sources) take 1 capsule by mouth two time s weekly take 1 capsule by mouth two time s weekly Vitamin D 125 MCG (5000 UT) 1 Capsule orally Twice a week Active Completed/Discontinued Medications Medication Drug Class(es) Dates Sig (Normalized) Sig (Original) acetaminophen 325 mg oral tablet (6 sources) Start: 07-08-2024 End: 08-21-2024 take 1-3 tablets by mouth every six hours as needed for pain Acetaminophen (Tylenol) 325 mg Tablet Discontinued 650 MG PO Every 6 hours as needed for Pain Scale 1 - 3 or fever 0 July 08, 2024 12:00am August 21, 2024 3:01pm 50 ml albumin human, senior living 250 mg/ml injection (12 sources) Human Serum Albumin Start: 05-24-2023 End: 06-15-2023 take 25 g intravenously twice daily Albumin, Human 25 % (Flexbumin 25 %) 25 % Parenteral Solution Discontinued 25 GM IV Twice daily 0 May 24, 2023 12:00am June 15, 2023 1:42pm albuterol 0.83 mg/ml inhalation solution (19 sources) beta2-Adrenergic Agonist Start: 05-24-2023 End: 06-15-2023 take 2.5 mg by inhalation every three hours as needed Albuterol Sulfate 2.5 mg /3 mL (0.083 %) Solution For Nebulization Discontinued 2.5 MG INHALATION Q3H as needed for Shortness Of Breath 0 May 24, 2023 12:00am June 15, 2023 1:42pm take 1 puff(s) by in halation every four hours as needed Ventolin HFA 90 MCG/ACT 1 puff as needed Inhalation every 4 hrs for 90 days Not-Taking Albuterol (Eqv-ProAir HFA) 90 mcg/inh inhalation aerosol (2 sources) Start: 04-18-2024 take 8.5 g by inhalation every six hours Albuterol (Eqv-ProAir HFA) 90 mcg/inh inhalation aerosol 180 mcg, 2 inh, Inhalation, q6hr, 8.5 gm, Refill(s) 0, [facility], 155.8, cm, 04/18/24 14:43:00 EST, Height/Length Dosing, 61.8, kg, 04/18/24 14:43:00 EST, Weight Dosing Start Date: 04/18/24 Status: Ordered Quantity: 8.5 Unit: g Repeat number: 1 Indications: Nasal congestion; Dizziness and giddiness; Nicotine dependence, unspecified, uncomplicated; Unspecified cirrhosis of liver; Hypo-osmolality and hyponatremia; Wheezing; Chronic obstructive pulmonary disease, unspecified; Body mass index [BMI] 25.0-25.9, adult; Hypomagnesemia; Start: 04-18-2024 take 8.5 g by inhala tion every six hours Albuterol (Eqv-ProAir HFA) 90 mcg/inh inhalation aerosol 180 mcg, 2 inh, Inhalation, q6hr, 8.5 gm, Refill(s) 0, [employer] #[id number], 155.8, cm, 04/18/24 14:43:00 EST, Height/Length Dosing, 61.8, kg, 04/18/24 14:43:00 EST, Weight Dosing Start Date: 04/18/24 Status: Ordered amitriptyline hydrochloride 10 mg oral tablet (4 sources) Tricyclic Antidepressant take 1 tablet by mouth once daily at bedtime amitriptyline (ELAVIL) 10 mg tablet Take 10 mg by mouth daily at bedtime. 0 Active Comment on above: Take 10 mg by mouth daily at bedtime. baclofen 10 mg oral tablet (20 sources) gamma-Aminobutyric Acid-ergic Agonist Start: End: take 1 tablet by mouth three times daily Baclofen 10 mg Tablet Discontinued 10 MG PO Three times daily August 23, 2017 12:00am July 14, 2019 7:56am Comment on above: Take 10 mg by mouth three times daily. carvedilol 25 mg oral tablet (20 sources) alpha-Adrenergic Bg, beta-Adrenergic Bg Start: take 25 mg by mouth once daily at mealtime Carvedilol Active 25 MG PO Daily May 24, 2023 12:00am must administer with a meal/food Start: 05-24-2023 End: 06-15-2023 take 1 tablet by mouth once daily Carvedilol 6.25 mg Tablet Discontinued 6.25 MG PO Daily May 24, 2023 12:00am June 15, 2023 1:43pm Hold for SBP Start: 01-03-2019 End: 10-27-2022 take 1 tablet by mouth once daily Carvedilol 25 mg tablet Discontinued 25 MG PO Daily January 03, 2019 1:00am October 27, 2022 1:00pm Start: 01-03-2019 End: 05-24-2023 take 1 tablet by mouth twice daily at mealtime Carvedilol 25 mg tablet Discontinued 25 MG PO Twice daily May 24, 2023 12:00am May 24, 2023 1:16pm must administer with a meal/food Comment on above: Take 25 mg by mouth twice daily with meals. cefdinir 300 mg oral capsule (6 sources) Cephalosporin Antibacterial Start: 2024 End: 2024 take [id number] capsule by mouth twice daily in the evening Cefdinir 300 mg Capsule Discontinued 300 MG PO Twice daily 0 July 08, 2024 12:00am July 10, 2024 12:13pm last dose 5 pm cefTRIAXone 1000 mg injection (12 sources) Cephalosporin Antibacterial Start: 2023 End: 2023 take 1 g intravenously every twenty-four hours Ceftriaxone 1 gram Recon Soln Discontinued 1 GM IV Q24H 0 May 24, 2023 12:00am June 15, 2023 1:43pm cholecalciferol 0.125 mg oral tablet (20 sources) Vitamin D Start: 2023 End: 2023 take 1 tablet by mouth every week Cholecalciferol (Vitamin D3) (Vitamin D3) 125 mcg (5,000 unit) tablet Discontinued 125 MCG PO every week June 15, 2023 1:43pm July 21, 2023 2:03pm Start: 12-25-2020 End: 04-20-2023 take 1 tablet by mouth once daily Cholecalciferol (Vitamin D3) (Vitamin D3) 125 mcg (5,000 unit) Tablet Discontinued 125 MCG PO Daily December 25, 2020 12:00am April 20, 2023 1:34pm Start: 12-25-2020 take 1 tablet by [facility] once daily cholecalciferol 5000 intl units (125 mcg) oral tab See Instructions, 3000 units orally daily, Refills(s) 0 Start Date: 12/25/20 Status: Ordered docusate sodium 100 mg oral capsule (20 sources) Start: 04-18-2023 End: 06-15-2023 take 1 capsule by mouth once daily Docusate Sodium 100 mg capsule Discontinued 100 MG PO Daily April 20, 2023 1:28pm May 24, 2023 1:26am Start: 12-21-2022 Colace 100 mg Cap 100 mg = 1 cap(s), Oral, TID, Oral, 0 Refill(s), Refills(s) 0 Start Date: 12/21/22 Status: Ordered Repeat number: 1 take [address] [facility] every twenty-four hours take [address] [facility] every twelve hours Docusate Sodium 100 MG 1 capsule as needed Orally twice a day Active Docusate Sodium Active ergocalciferol 1.25 mg oral capsule (20 sources) Provitamin D2 Compound Start: 07-21-2023 End: 06-30-2024 Ergocalciferol (Vitamin D2) 1,250 mcg (50,000 unit) capsule Discontinued [id number] UNIT PO every week November 30, 2023 2:42pm June 30, 2024 10:44pm Start: 07-21-2023 End: 11-30-2023 Ergocalciferol (Vitamin D2) 1,250 mcg (50,000 unit) capsule Discontinued [id number] UNIT PO every week July 21, 2023 12:00am November 30, 2023 2:42pm Start: 07-21-2023 End: 11-30-2023 take 45858 [IU] by mouth every week Ergocalciferol (Vitamin D2) Discontinued [id number] UNIT PO every week July 21, 2023 12:00am November 30, 2023 2:42pm Start: 07-21-2023 take 12132 [IU] by m outh every week Ergocalciferol (Vitamin D2) Active [id number] UNIT PO every week July 21, 2023 12:00am Start: 06-05-2023 End: 03-01-2024 take 1 capsule by mouth every week ergocalciferol 50,000 unit capsule (VITAMIN D2, DRISDOL) Indications: 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 7 capsule 01/18/2024 Active Comment on above: Take 1 capsule by mo uth one time a week for 7 doses. escitalopram 10 mg oral tablet (1 source) Serotonin Reuptake Inhibitor Start: 08-31-19 take 1 tablet by mouth once daily Lexapro 10 mg Tab 10 mg = 1 tab(s), Oral, Daily, # 90 tab(s), Refills(s) 0 Start Date: 08/30/24 Status: Ordered Quantity: 90.0 Unit: tab(s) Repeat number: 1 Indications: Major depressive disorder, single episode, moderate; Retention of urine, unspecified; Body mass index [BMI] 25.0-25.9, adult; Metabolic encephalopathy; Generalized anxiety disorder; Encounter for follow-up examination after completed treatment for conditions other than malignant neoplasm; Dependence on wheelchair; Unspecified visual loss; Biliary cirrhosis, unspecified; 30 actuat fluticasone furoate 0.2 mg/actuat / vilanterol 0.025 mg/actuat dry powder inhaler (7 sources) Corticosteroid, beta2-Adrenergic Agonist Start: 08-01-19 take 1 puff(s) by inhalation once daily Breo Ellipta 200-25 MCG/INH 1 puff Inhalation Once a day for 30 days Jul, Not-Taking folic acid 20 mg oral capsule (20 sources) Start: 08-24-19 18 End: 01-04-20 19 take 1 capsule by mouth once daily Folic Acid 20 mg Capsule Discontinued 20 MG PO Daily August 23, 2017 12:00am January 03, 2019 10:59am glucose 0.4 mg/mg oral gel (12 sources) Start: 05-24-19 End: 07-01-19 Dextrose (Glutose-15) 40 % Gel Discontinued 0.6 GM PO PRN as needed for Hypoglycemia May 24, 2023 12:00am June 30, 2024 11:27pm Handicap Placard (1 source) Start: 08-31-19 Handicap Placard Handicap Placard, See Instructions, 1 EA, 0, 5 years, Supply Start Date: 08/30/24 Status: Ordered Quantity: 1.0 Unit: EA Repeat number: 1 Indications: Retention of urine, unspecified; Metabolic encephalopathy; Encounter for follow-up examination after completed treatment for conditions other than malignant neoplasm; Dependence on wheelchair; Unspecified visual loss; Biliary cirrhosis, unspecified; Insulin Aspart U-100 (Novolog Flexpen U-100 Insulin) 100 unit/mL (3 mL) insulin pen (10 sources) Start: 06-15-19 End: 07-21-19 Insulin Aspart U-100 (Novolog Flexpen U-100 Insulin) 100 unit/mL (3 mL) insulin pen Discontinued 0 UNIT SUBCUT Every 6 hours June 15, 2023 1:44pm July 21, 2023 1:59pm Please contact the information source for Protocol details. Start: 06-15-2023 End: 07-21-2023 Insulin Aspart U-100 (Novolo g Flexpen U-100 Insulin) 100 unit/mL (3 mL) insulin pen Discontinued 0 UNIT SUBCUT Every 6 hours June 15, 2023 1:44pm July 21, 2023 1:59pm Start: 06-15-2023 Insulin Aspart U-100 (Novolog Flexpen U-100 Insulin) 100 unit/mL (3 mL) insulin pen Active 0 UNIT SUBCUT Every 6 hours June 15, 2023 1:44pm Insulin Aspart U-100 (Novolo g Flexpen U-100 Insulin) 100 unit/mL (3 mL) Insulin Pen (10 sources) Start: 05-24-2023 End: 06-15-2023 Insulin Aspart U-100 (Novolo g Flexpen U-100 Insulin) 100 unit/mL (3 mL) Insulin Pen Discontinued 0 UNIT SUBCUT Every 6 hours May 24, 2023 12:00am June 15, 2023 1:48pm Please contact the information source for Protocol details. Start: 05-24-2023 End: 06-15-2023 Insulin Aspart U-100 (Novolo g Flexpen U-100 Insulin) 100 unit/mL (3 mL) Insulin Pen Discontinued 0 UNIT SUBCUT Every 6 hours 0 May 24, 2023 12:00am June 15, 2023 1:48pm 3 ml insulin degludec 200 unt/ml pen injector (20 sources) Insulin Analog Start: 08-30-2024 inject 44 [IU] by subcutaneous injection once daily Tresiba FlexTouch 200 units/mL subcutaneous solution 44 unit(s), SubCutaneous, Daily, # 9 mL, Refills(s) 5, Pharmacy: [facility] #[id number], 155.8, cm, 08/30/24 14:09:00 EDT, Height/Length Dosing, 61.8, kg, 08/30/24 14:15:00 EDT, Weight Dosing Start Date: 08/30/24 Status: Ordered Quantity: 9.0 Unit: mL Repeat number: 6 Indications: Major depressive disorder, single episode, moderate; Body mass index [BMI] 25.0-25.9, adult; Retention of urine, unspecified; Metabolic encephalopathy; Generalized anxiety disorder; Encounter for follow-up examination after completed treatment for conditions other than malignant neoplasm; Dependence on wheelchair; Unspecified visual loss; Type 1 diabetes mellitus with hyperglycemia; Biliary cirrhosis, unspecified; Start: 07-21-2023 End: 07-08-2024 Insulin Degludec (Tresiba Flextouch U-100) 100 unit/mL (3 mL) insulin pen Discontinued 0 SUBCUT Daily July 21, 2023 12:00am July 08, 2024 1:21pm 30 units subcut QAM Start: 04-18-2023 End: 05-24-2023 Insulin Degludec (Tresiba Flextouch U-100) 100 unit/mL (3 mL) insulin pen Discontinued 38 UNIT SUBCUT Every morning April 20, 2023 1:30pm May 24, 2023 1:16pm Start: 09-23-2021 inject 38 [IU] by kay bcutaneous injection once daily in the morning Tresiba FlexTouch 100 UNIT/ML 38 units Subcutaneous once daily in the morning Aug, Active Start: 02-11-2021 inject 40 [IU] by kay bcutaneous injection once daily in the morning Tresiba FlexTouch 100 UNIT/ML 40 units Subcutaneous qam (titrate up to 50 units/day) Jan, Active Start: 02-10-2021 Tresiba FlexTo uch 100 units/mL subcutaneous solution See Instructions, use as directed sliding scale, Refills(s) 0 Start Date: 02/10/21 Status: Ordered Repeat number: 1 inject 36 [IU] by kay bcutaneous injection once daily in the morning Tresiba FlexTouch 100 UNIT/ML 36 units Subcutaneous once daily in the morning Active inject 34 [IU] by kay bcutaneous injection once daily in the morning Tresiba FlexTouch 100 UNIT/ML 34 units Subcutaneous qam (titrate up to 50 units/day) Active Insulin Degludec (Tresiba Flextouch U-100) 100 unit/mL (3 mL) insulin pen (20 sources) Start: 07-21-2023 End: 07-08-2024 Insulin Degludec (Tresiba Flextouch U-100) 100 unit/mL (3 mL) insulin pen Discontinued 0 SUBCUT Daily July 21, 2023 12:00am July 08, 2024 1:21pm 30 units subcut QAM Start: 07-21-2023 Insulin Deglud ec (Tresiba Flextouch U-100) 100 unit/mL (3 mL) insulin pen Active 0 SUBCUT Daily July 21, 2023 12:00am 30 units subcut QAM Start: 04-20-2023 End: 05-24-2023 Insulin Degludec (Tresiba Fl extouch U-100) 100 unit/mL (3 mL) insulin pen Discontinued 38 UNIT SUBCUT Every morning April 20, 2023 1:30pm May 24, 2023 1:16pm Start: 04-20-2023 Insulin Deglud ec (Tresiba Flextouch U-100) 100 unit/mL (3 mL) insulin pen Active 34 UNIT SUBCUT Every morning April 20, 2023 1:30pm Start: 04-20-2023 Insulin Deglud ec (Tresiba Flextouch U-100) 100 unit/mL (3 mL) insulin pen Active 38 UNIT SUBCUT Every morning April 20, 2023 12:30pm Start: 04-18-2023 End: 04-20-2023 Insulin Degludec (Tresiba Fl extouch U-100) 100 unit/mL (3 mL) insulin pen Discontinued 38 UNIT SUBCUT April 18, 2023 1:00am April 20, 2023 1:34pm [employer] units Subcutaneous once daily in the morning; Note: Source Status: Taking; Provider: Papa Massey Start: 04-18-2023 End: 04-20-2023 Insulin Degludec (Tresiba Fl extouch U-100) 100 unit/mL (3 mL) insulin pen Discontinued 38 UNIT SUBCUT April 18, 2023 12:00am April 20, 2023 12:34pm [employer] units Subcutaneous once daily in the morning; Note: Source Status: Taking; Provider: Papa Massey insulin glulisine, human 100 unt/ml injectable solution (20 sources) Insulin Analog Start: 07-14-2019 End: 04-20-2023 Insulin Glulisine U-100 (Apidra U-100 Insulin) 100 unit/mL Solution Discontinued 36 - 38 UNIT SUBCUT Every morning July 14, 2019 12:00am April 20, 2023 1:32pm inject 100 [IU] by s ubcutaneous injection three times daily at mealtime insulin glulisine U-100 (APIDRA SOLOSTAR U-100 INSULIN) 100 unit/mL sub-Q pen Inject 100 Units subcutaneously three times daily with meals. 0 Active Apidra 100 UNIT/ ML 1012-15 ac according to meal size plus ISS 1:15 ac, (hs if >200 half dose). SQ as directed Not-Taking Comment on above: Inject 100 Units sub cutaneously three times daily with meals. insulin isophane, human 70 unt/ml / insulin, regular, human 30 unt/ml injectable suspension (20 sources) Insulin Start: End: Insulin Nph And Regular Human 100 unit/mL (70-30) Suspension Discontinued 22 UNITS SUBCUT Twice daily August 23, 2017 12:00am January 03, 2019 10:59am insulin, regular, human 100 unt/ml injectable solution (4 sources) Insulin insulin regular human 100 unit/mL injection Inject subcutaneously three times daily before meals. 0 Active Comment on above: Inject subcutaneousl y three times daily before meals. melatonin 5 mg oral tablet (6 sources) Start: 025 End: 025 take 1 tablet by mouth once daily at bedtime Melatonin 5 mg Tablet Discontinued 5 MG PO Daily at bedtime 0 July 08, 2024 12:00am August 21, 2024 3:02pm metFORMIN hydrochloride 500 mg oral tablet (20 sources) Biguanide Start: 018 End: 019 take 1 tablet by mouth twice daily Metformin 500 mg Tablet Discontinued 500 MG PO Twice daily August 23, 2017 12:00am January 03, 2019 11:08am take 1 tablet by karel th once daily at breakfast metFORMIN (GLUCOPHAGE) 500 mg tablet Zeus e 500 mg by mouth daily with breakfast. 0 Active Comment on above: Take 500 mg by mouth daily with breakfast. Metoclopramide (7 sources) Dopamine-2 Receptor Antagonist Reglan Not-Taking midodrine hydrochloride 5 mg oral tablet (20 sources) alpha-Adrenergic Agonist Start: 05-24-19 End: 06-15-19 take 2 tablets by mouth once Midodrine 5 mg Tablet Discontinued 10 MG PO 3x/Day at 7a,12p,5p 0 May 24, 2023 12:00am June 15, 2023 1:45pm Start: 05-24-2023 End: 06-15-2023 take 10 mg by mouth once Midodrine Discontinued 10 MG PO 3x/Day at 7a,12p,5p 0 May 24, 2023 12:00am June 15, 2023 1:45pm Start: 04-18-2023 End: 05-24-2023 take 1 tablet by mouth three times daily Midodrine 5 mg tablet Discontinued 5 MG PO Three times daily April 20, 2023 1:32pm May 24, 2023 1:16pm Start: 04-18-2023 End: 04-20-2023 take 1 tablet by mouth three times daily Midodrine Discontinued 1 TAB PO Three times daily April 18, 2023 1:00am April 20, 2023 1:34pm [employer] tablet Orally Three times a day; Note: Source Status: Taking; Refills: 1; Qty: 270 tablets; Provider: Rachell Arevalo Start: 07-08-2021 midodrine (PRO AMATINE) 2.5 mg tablet Take by mouth q 8 HR. 0 07/08/2021 Active Start: 07-08-2021 take 1 tablet by karel th every eight hours Midodrine HCl 2.5 MG 1 tablet Orally Three times a day for 30 day(s) June, Active take 1 tablet by karel th every eight hours Midodrine HCl 5 MG 1 tablet Orally Three times a day for 90 days Active Comment on above: Take by mouth q 8 HR . MV-Min-Vit [id number] 1,000-50 mg tbef (4 sources) MV-Min-Vit B-[id number] 1,000-50 mg tbef Take by mouth. 0 Active Comment on above: Take by mouth. 24 hr nicotine 0.875 mg/hr transdermal system (6 sources) Cholinergic Nicotinic Agonist Start: 07-09-19 End: 08-22-19 apply 1 dose transdermal route every twenty-four hours Nicotine 21 mg/24 hr Patch 24 Hour Discontinued 21 MG TRANSDERML Daily July 08, 2024 12:00am August 21, 2024 3:02pm obeticholic acid 5 mg oral tablet (20 sources) Farnesoid X Receptor Agonist Start: 04-18-19 End: 06-15-19 take 1 tablet by mouth once daily Obeticholic Acid (Ocaliva) 5 mg tablet Discontinued 5 MG PO Daily April 20, 2023 1:00am June 15, 2023 1:45pm Start: 01-03-2019 End: 04-20-2023 take 2 tablets by mouth once daily Obeticholic Acid 5 mg tablet Discontinued 10 MG PO Daily January 03, 2019 1:00am April 20, 2023 1:33pm Start: 01-03-2019 End: 04-20-2023 take 10 mg by mouth once daily Obeticholic Acid Discon tinued 10 MG PO Daily January 03, 2019 1:00am April 20, 2023 1:33pm Start: 03-23-2018 take 1 tablet by karel th every twenty-four hours oxyCODONE hydrochloride 5 mg oral tablet (6 sources) Opioid Agonist Start: 07-08-2024 End: 08-21-2024 take 1 tablet by mouth every six hours as needed for pain Oxycodone 5 mg Tablet Discontinued 5 MG PO Every 6 hours as needed for Pain Scale 4 - 7 12 3 July 08, 2024 August 21, 2024 3:01pm Potassium (7 sources) Potassium Not-Taking Potassium Active potassium phosphate 155 mg / sodium phosphate, dibasic 852 mg / sodium phosphate, monobasic 130 mg oral tablet (20 sources) Start: 04-20-2023 End: 05-24-2023 take 2 tablets by mouth once daily Sod Phos Di, Richardson-K Phos Richardson (Phosphorous) 250 mg tablet Discontinued 2 TAB PO Daily April 20, 2023 1:33pm May 24, 2023 1:26am Start: 10-27-2022 End: 04-20-2023 take 4 tablets by mouth once daily Sod Phos Di, Richardson-K Phos Richardson (Phosphorous) 250 mg Tablet Discontinued 4 TAB PO Daily October 27, 2022 12:00am April 20, 2023 1:34pm Start: 07-14-2022 take 1 tablet by karel th every six hours Start: 07-13-2022 take 1 tablet by karel th three times daily potassium phosphate-sodium phosphate 250 mg-45 mg-298 mg oral tablet 1 tab(s), Oral, TID, Refill(s) 0, Oral, 0 Refill(s) Start Date: 07/13/22 Status: Ordered sennosides, senior living 8.6 mg oral tablet (2 sources) Start: 07-08-2024 End: 08-21-2024 take 1 tablet by mouth twice daily as needed for constipation Sennosides (Senna Lax) 8.6 mg Tablet Discontinued 8.6 MG PO Twice daily as needed for constipation 0 July 08, 2024 12:00am August 21, 2024 3:02pm spironolactone 100 mg oral tablet (20 sources) Aldosterone Antagonist Start: 06-15-2023 End: 07-21-2023 Spironolactone 100 mg tablet Discontinued 50 MG PO Once June 15, 2023 1:46pm July 21, 2023 2:01pm Start: 06-15-2023 End: 07-21-2023 take 50 mg by mouth once Spironolactone Discontinued 50 MG PO Once June 15, 2023 1:46pm July 21, 2023 2:01pm Start: 06-01-2023 End: 08-27-2023 take 1 tablet by mouth once daily Spironolactone 50 mg tablet Active 50 MG PO Daily July 21, 2023 12:00am Complies with drug therapy Start: 05-24-2023 End: 06-15-2023 Spironolactone 100 mg Tablet Discontinued 50 MG PO Twice daily 0 May 24, 2023 12:00am June 15, 2023 1:48pm Start: 05-24-2023 End: 06-15-2023 take 50 mg by mouth twice daily Spironolactone Discontinued 50 MG PO Twice daily 0 May 24, 2023 12:00am June 15, 2023 1:48pm Start: 05-04-2023 End: 05-24-2023 take 0.5 tablet by mouth twice daily Spironolactone 100 mg tablet Discontinued 100 MG PO Twice daily May 24, 2023 12:00am May 24, 2023 1:16pm patient take 1/2 tab twice a day Start: 05-07-2021 take 1 tablet by karel th every twelve hours Spironolactone 100 MG 1 tablet Orally TWICE A DAY for 30 days Apr, Active Start: 04-05-2021 spironolactone (ALDACTONE) 50 mg tablet Take 150 mg by mouth. 0 04/05/2021 Active Start: 12-25-2020 End: 05-04-2023 spironolactone 100 mg Tab 10 0 mg = 1 tab(s), Oral, Daily, Oral, 0 Refill(s), Refills(s) 0 Start Date: 12/25/20 Status: Ordered Repeat number: 1 take 0.5 tablet by [facility] twice daily Comment on above: Take 150 mg by mouth . Take 1 tablet by karel th once daily. ursodiol 250 mg oral tablet (20 sources) Bile Acid Start: 06-15-2023 take 1 tablet by mouth twice daily Ursodiol 250 mg tablet Active 250 MG PO Twice daily June 15, 2023 12:00am Complies with drug therapy Start: 05-31-2023 End: 05-23-2024 take 2 tablets by mouth twice daily at mealtime ursodiol 250 mg Tab 300 mg, TAKE 2 TABLETS BY MOUTH TWICE DAILY WITH MEALS Start Date: 04/18/24 Status: Ordered Repeat number: 1 Start: 11-21-2019 End: 06-15-2023 take 1 capsule by mouth four times daily Ursodiol 300 mg capsule Discontinued 300 MG PO Four times daily October 27, 2022 12:00am June 15, 2023 1:47pm take 1 capsule by mo uth twice daily ursodiol (ACTIGALL) 300 mg capsule Take 300 mg by mouth twice daily. 0 Active Comment on above: Take 300 mg by mouth twice daily. Take 2 tablets by mo uth two times a day with meals. vitamin a 17930 unt oral capsule (20 sources) Vitamin A Start: 07-21-2023 End: 06-30-2024 take 1 capsule by mouth once daily Vitamin A 3,000 mcg (10,000 unit) capsule Discontinued 3000 MCG PO Daily July 21, 2023 12:00am June 30, 2024 10:44pm Start: 05-31-2023 End: 07-05-2023 take 1 capsule by mouth once daily vitamin A (AQUASOL A) 10,000 unit capsule Take 1 capsule by mouth once daily. 30 capsule 1 07/05/2023 Active Start: 04-20-2023 End: 05-24-2023 Vitamin A 2,400 mcg capsule Discontinued 8000 UNIT PO Daily April 20, 2023 1:00am May 24, 2023 1:16pm Start: 04-20-2023 End: 05-24-2023 take 8000 [IU] by mouth once daily Vitamin A Discontinued 8000 UNIT PO Daily April 20, 2023 1:00am May 24, 2023 1:16pm Start: 04-20-2023 take 2400 ug by mout h once daily Vitamin A Active 2400 MCG PO Daily April 20, 2023 12:00am Start: 01-03-2018 take 1 capsule by mo ut once daily Vitamin A 8,000 unit capsule Take 1 capsule by mouth once daily. 30 capsule 0 01/03/2018 Active Comment on above: Take 1 capsule by mo uth once daily. Problems Active Problems Problem Classification Problem Date Documented Da te Episodic/Chronic Abdominal hernia (3 sources) Umbilical hernia with obstruction, without gangrene; Translations: [Other and unspecified ventral hernia with obstruction, without gangrene] Onset: Episodic Abdominal pain (4 sources) Unspecified abdominal pain; Translations: [UNSPECIFIED ABDOMINAL PAIN] Onset: 1 Episodic Administrative/social admission (20 sources) Dietary management surveillance; Translations: [Dietary counseling and surveillance] Onset: 1 Resolved: 2 Episodic Alcohol-related disorders (12 sources) Alcoholic cirrhosis; Translations: [Alcoholic cirrhosis of liver with ascites] Onset: 4 05-31-2023 Chronic Anal and rectal conditions (20 sources) Rectal pain; Translations: [Other specified diseases of anus and rectum] Episodic Anxiety disorders (1 source) Generalized anxiety disorder 08-30-2024 Chronic Blindness and vision defects (1 source) Blindness AND/OR vision impairment level 08-30-2024 Chronic Blindness and vision defects (20 sources) Presbyopia; Translations: [Presbyopia] Episodic Cataract (20 sources) Nuclear senile cataract; Translations: [Age-related nuclear cataract, bilateral] Chronic Chronic obstructive pulmonary disease and bronchiectasis (20 sources) Emphysema, unspecified; Translations: [Chronic obstructive lung disease] Onset: 2 01-12-2024 Chronic Comment on above: noted in 06/22/2023 POC page 2. added per [facility] policy. Coagulation and hemorrhagic disorders (17 sources) Thrombocytopenic disorder; Translations: [Thrombocytopenia, unspecified] Onset: 5 01-12-2024 Chronic Comment on above: noted in 06/22/2023 POC page 2. added per [facility] policy. Conditions associated with dizziness or vertigo (2 sources) Dizziness 04-18-2024 Episodic Deficiency and other anemia (13 sources) Anemia; Translations: [Anemia, unspecified] 05-24-2023 Episodic Deficiency and other anemia (4 sources) Anemia, unspecified; Translations: [Anemia, unspecified] 05-24-2023 Episodic Deficiency and other anemia (2 sources) Iron deficiency anemia 01-12-2024 Episodic Comment on above: noted in 06/22/2023 POC page 2. added per [facility] policy. 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 added per [facility] policy. Diabetes mellitus without complication (20 sources) Type 1 diabetes mellitus without complications; Translations: [Type 1 diabetes mellitus] Onset: 1 Resolved: 3 Chronic Comment on above: linked DM with HLD p er [facility] policy. Diabetes mellitus without complication (20 sources) Hyperglycemia; Translations: [Hyperglycemia, unspecified] Onset: 5 06-30-2024 Episodic Disorders of lipid metabolism (20 sources) Hyperlipidemia, unspecified; Translations: [Hyperlipidemia] Onset: 1 Resolved: 2 Chronic Comment on above: noted in 07/21/2023 Endocrinology Consult Note page 7. added per OP CDI policy. E Codes: Fall (18 sources) Fall; Translations: [Unspecified fall, initial encounter] Onset: 5 07-01-2024 Episodic Esophageal disorders (20 sources) Gastro-esophageal reflux disease without esophagitis; Translations: [Secondary esophageal varices without bleeding] Onset: 2 Resolved: 2 Chronic Comment on above: noted in 05/24/2023 [facility] DC Summary page 1. added per OP CDI policy. noted in 06/22/2023 POC page 2. added per OP CDI policy. Essential hypertension (20 sources) Hypertensive disorder; Translations: [Essential (primary) hypertension] Onset: 5 07-21-2023 Chronic Fluid and electrolyte disorders (20 sources) Hypo-osmolality and hyponatremia; Translations: [Hyponatremia] Onset: 2 Resolved: 2 Episodic Comment on above: noted in 12/09/2023 Nephrology Consult Note page 6. added per OP CDI policy. Fracture of neck of femur (hip) (20 sources) Closed fracture of hip; Translations: [Fracture of unspecified part of neck of right femur, initial encounter for closed fracture] Onset: 5 06-30-2024 Episodic Gastrointestinal hemorrhage (20 sources) Hematemesis; Translations: [Hematemesis] Episodic Genitourinary symptoms and ill-defined conditions (1 source) Retention of urine 08-30-2024 Episodic Glaucoma (20 sources) Open angle with borderline intraocular pressure; Translations: [Open angle with borderline findings, high risk, bilateral] Chronic Hemorrhoids (20 sources) Unspecified hemorrhoids; Translations: [Lesion of rectum] Onset: 4 Resolved: 4 Episodic Mood disorders (1 source) Moderate major depression 08-30-2024 Chronic Nutritional deficiencies (20 sources) Vitamin D deficiency, unspecified; Translations: [Vitamin D deficiency] Onset: 2 Resolved: 4 Chronic Comment on above: noted in 06/22/2023 HH POC page 2. added per OP CDI policy. noted in 12/09/2023 Nephrology Consult Note page 6. added per OP CDI policy. 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; Translations: [NURSING HOME CURRENT USE OF INSULIN] Onset: 1 Resolved: 2 Episodic Other aftercare (20 sources) Long-term current use of insulin; Translations: [termite exterminator (current) use of insulin] Episodic Other aftercare (1 source) Post-discharge follow-up 08-30-2024 Episodic Other circulatory disease (1 source) Presence of other vascular implants and grafts; Translations: [S/P TIPS (transjugular intrahepatic portosystemic shunt)] Onset: 4 Chronic Other circulatory disease (3 sources) Hypotension, unspecified Onset: 2 Resolved: 2 Episodic Other circulatory disease (12 sources) Chronic hypotension; Translations: [Other hypotension] 06-15-2023 Episodic Other connective tissue disease (1 source) Other muscle spasm; Translations: [OTHER MUSCLE SPASM] Onset: 2 Episodic Other connective tissue disease (1 source) Fibromyalgia; Translations: [FIBROMYALGIA] Onset: 2 Episodic Other connective tissue disease (2 sources) Weakness of right hand 12-21-2022 Episodic Other gastrointestinal disorders (20 sources) Constipation; Translations: [Constipation, unspecified] Episodic Other gastrointestinal disorders (2 sources) Lesion of rectum 01-12-2024 Episodic Comment on above: noted in 12/09/2023 Nephrology Consult Note page 6. added per OP [facility]I policy. Other gastrointestinal disorders (1 source) Other ascites; Translations: [Other ascites] Onset: 5 Episodic Other injuries and conditions due to external causes (12 sources) Wound 07-03-2024 Episodic Other injuries and conditions due to external causes (1 source) Encounter for examination and observation following other accident; Translations: [Encounter for examination and observation following other accident] Onset: 5 Episodic Other liver diseases (20 sources) Unspecified cirrhosis of liver; Translations: [Cirrhotic] Onset: 1 Resolved: 2 Chronic Other liver diseases (20 sources) Primary biliary cirrhosis; Translations: [Biliary cirrhosis] Onset: 2 Resolved: 2 Chronic Other liver diseases (20 sources) Primary biliary cholangitis; Translations: [Primary biliary cirrhosis] 10-13-2022 Chronic Other liver diseases (20 sources) Cirrhosis of liver; Translations: [Unspecified cirrhosis of liver] Onset: 4 Chronic Comment on above: noted in 12/09/2023 Nephrology Consult Note page 6. added per OP CDI policy. Other liver diseases (11 sources) Biliary cirrhosis; Translations: [Biliary cirrhosis, unspecified] 12-25-2020 Chronic Other liver diseases (12 sources) Portal hypertension; Translations: [Portal hypertension] Onset: 4 05-31-2023 Chronic Other liver diseases (12 sources) Portal hypertensive gastropathy; Translations: [Portal hypertension] 06-01-2023 Chronic Other liver diseases (3 sources) Portal hypertension; Translations: [Portal hypertension] 05-24-2023 Chronic Other lower respiratory disease (2 sources) Wheezing 04-18-2024 Episodic Other nervous system disorders (5 sources) Metabolic encephalopathy; Translations: [Metabolic encephalopathy] 08-19-2024 Chronic Other nervous system disorders (1 source) Metabolic encephalopathy; Translations: [Metabolic encephalopathy] Onset: 5 Chronic Other non-traumatic joint disorders (2 sources) Pain in wrist 12-21-2022 Episodic Other nutritional; endocrine; and metabolic disorders (20 sources) Hypophosphatemia; Translations: [Other disorders of phosphorus metabolism] Onset: 4 Resolved: 4 06-15-2023 Chronic Comment on above: noted in 12/09/2023 Nephrology Consult Note page 6. added per OP CDI policy. Other nutritional; endocrine; and metabolic disorders (20 sources) Hypomagnesemia; Translations: [Hypomagnesemia] 06-15-2023 Chronic Comment on above: noted in 12/09/2023 Nephrology Consult Note page 6. added per OP CDI policy. Other nutritional; endocrine; and metabolic disorders (5 sources) Hypomagnesemia; Translations: [Disorders of magnesium metabolism] Onset: 4 06-15-2023 Chronic Other nutritional; endocrine; and metabolic disorders (5 sources) Other disorders of phosphorus metabolism; Translations: [Disorders of phosphorus metabolism] Onset: 4 06-15-2023 Chronic Other nutritional; endocrine; and metabolic disorders (20 sources) Overweight; Translations: [Overweight] Episodic Other nutritional; endocrine; and metabolic disorders (20 sources) Body mass index 25-29 - overweight; Translations: [Body mass index (BMI) 28.0-28.9, adult] Episodic Other nutritional; endocrine; and metabolic disorders (3 sources) Body mass index (BMI) 26.0-26.9, adult Onset: 1 Resolved: 1 Episodic Other nutritional; endocrine; and metabolic disorders (2 sources) Body mass index (BMI) 25.0-25.9, adult Onset: 2 Resolved: 2 Episodic Other nutritional; endocrine; and metabolic disorders (1 source) Overweight in adulthood with body mass index of 25 or more but less than 30 08-30-2024 Episodic Other screening for suspected conditions (not mental disorders or infectious disease) (1 source) Patient encounter status; Translations: [Encounter for screening for osteoporosis] 07-05-2023 Episodic Other upper respiratory disease (20 sources) Allergic rhinitis; Translations: [Allergic rhinitis, unspecified] Chronic Other upper respiratory disease (2 sources) Congestion of nasal sinus 04-18-2024 Episodic Residual codes; unclassified (1 source) Dependence on wheelchair 08-30-2024 Chronic Residual codes; unclassified (1 source) Acquired absence of other specified parts of digestive tract; Translations: [ACQ ABSENCE OTH PART DIGESTV TRACT] Onset: 2 Episodic Residual codes; unclassified (3 sources) Other specified postprocedural states; Translations: [Other postprocedural status] Onset: 2 Resolved: 2 Episodic Residual codes; unclassified (5 sources) Patient's noncompliance with other medical treatment and regimen Onset: 2 Resolved: 2 Episodic Residual codes; unclassified (1 source) Body mass index (BMI) 24.0-24.9, adult Episodic Residual codes; unclassified (14 sources) Localized edema; Translations: [Localized edema] 06-15-2023 Episodic Comment on above: noted in 12/09/2023 Nephrology Consult Note page 6. added per OP [facility]I policy. Residual codes; unclassified (10 sources) Body mass index 20-24 - normal; Translations: [Body mass index (BMI) 22.0-22.9, adult] 07-21-2023 Episodic Residual codes; unclassified (1 source) Body mass index (BMI) 22.0-22.9, adult; Translations: [Body Mass Index between 19-24, adult] 07-21-2023 Episodic Residual codes; unclassified (2 sources) Tobacco user 01-13-2024 Episodic Residual codes; unclassified (4 sources) Altered mental status; Translations: [Altered mental status, unspecified] 08-19-2024 Episodic Residual codes; unclassified (4 sources) Postprocedural state finding; Translations: [Other specified postprocedural states] 07-26-2024 Episodic Residual codes; unclassified (1 source) Other specified health status; Translations: [Other specified health status] Onset: 5 Episodic Substance-related disorders (20 sources) Nicotine dependence, cigarettes, uncomplicated; Translations: [Nicotine dependence] Onset: 2 05-31-2023 Chronic Unclassified (1 source) CONTACT W/AND (SUSP) EXPOS COVID-19; Translations: [CONTACT W/AND (SUSP) EXPOS COVID-19] Onset: 2 Unclassified (2 sources) History of nicotine dependence 01-12-2024 Comment on above: noted in 06/22/2023 POC page 2. added per OP [facility]I policy. Unclassified (2 sources) Long-term current use of insulin 01-12-2024 Comment on above: noted in 06/22/2023 POC page 2. added per OP [facility]I policy. Unclassified (2 sources) Neuropathy due to type 1 diabetes mellitus 01-13-2024 Unclassified (4 sources) Please arrange a follow-up appointment once discharged from SNF. Unclassified (4 sources) You have been scheduled for a follow up appointment for the following date and time, please call to reschedule if needed. Unclassified (2 sources) You have been scheduled for a follow up appointment for the following date and time, please call to reschedule if needed. This appointment will be with KIKE Schwab. Past or Other Problems Problem Classification Problem Date Documented Da te Episodic/Chronic Acute posthemorrhagic anemia (9 sources) Acute posthemorrhagic anemia; Translations: [Acute posthemorrhagic anemia] Onset: 05-25-2023 Resolved: 05-31-2023 05-31-2023 Episodic Nausea and vomiting (4 sources) Nausea; Translations: [NAUSEA] Onset: 09-04-2020 Episodic Other aftercare (12 sources) Insulin dose changed; Translations: [[facility] (current) use of insulin] Onset: 05-28-2023 05-31-2023 Episodic Other circulatory disease (5 sources) Other hypotension; Translations: [Chronic hypotension] Onset: 11-23-2023 06-15-2023 Episodic Other endocrine disorders (9 sources) Hypoglycemia; Translations: [Hypoglycemia, unspecified] Onset: 05-25-2023 Resolved: 05-31-2023 05-31-2023 Chronic Other gastrointestinal disorders (20 sources) Ascites; Translations: [Other ascites] Onset: 05-29-2023 05-31-2023 Episodic Other gastrointestinal disorders (1 source) Personal history of other diseases of the digestive system Onset: 04-08-2021 Resolved: 04-08-2021 Episodic Residual codes; unclassified (9 sources) Localized edema; Translations: [Edema] Onset: 07-08-2021 Resolved: 10-14-2021 Episodic Results Test Name Value Interpretation Reference Range Facility Ambulatory Visit Summaryon 0 7-02-2025 Ambulatory Visit Summary Ambulatory Visit Summary TERESA LYLE :1960 Visit Date:08/30/2024 Ambulatory Visit Instructions Your Diagnosis Blindness Wheelchair dependent Hospital discharge follow-up Metabolic encephalopathy Urinary retention Biliary cirrhosis Moderate major depression Generalized anxiety disorder BMI 25.0-25.9,adult Your Care Team Attending Physician - Chapis Dumont Primary Care Physician - Chapis Dumont This Is Your Medications List Misc Prescription (Handicap Placard) albuterol (Albuterol (Eqv-ProAir HFA) 90 mcg/inh inhalation aerosol) atorvastatin (atorvastatin 10 mg Tab) docusate (Colace 100 mg Cap) furosemide (Lasix 40 mg Tab) gabapentin (gabapentin 300 mg Cap) insulin aspart (Fiasp FlexTouch 100 units/mL injectable solution) insulin degludec (Tresiba FlexTouch 100 units/mL subcutaneous solution) magnesium oxide pantoprazole (Pantoprazole [address] Tab) spironolactone (spironolactone 100 mg Tab) tramadol (traMADOL 50 mg Tab) ursodiol (ursodiol 250 mg Tab) Procedures Performed Colonoscopy, EGD (esophagogastroduodenoscop ic) electrohydraulic lithotripsy of bezoar in stomach. Discharge Vitals Temperature (Temporal Artery) 36.8 ???C Heart Rate (Peripheral) 100 Respiratory Rate 18 Blood Pressure 112/74 Height 155.8 cm Height 61 in Weight 61.80 kg Weight 136.246 lb BMI 25.46 What to do next Scheduled Follow-Up Appointments Wednesday 10:20 AM EDT With: NICOLE KELLEY PA-C Where: [facility] [address] [place] [address]- Wednesday 2:20 PM EDT With: Chapis Dumont Where: [address] [address]- Wednesday 2:30 PM EDT With: Where: [facility] [address] [address]- Medications What How Much When Why Instructions New Misc Prescription (Handicap Placchristal) See instructions Blindness Wheelchair dependent Hospital discharge follow-up Metabolic encephalopathy Urinary retention Biliary cirrhosis 5 years Printed Prescription Unchanged albuterol (Albuterol (Eqv-ProAir HFA) 90 mcg/ inh inhalation aerosol) 2 Inhalation Inhalation Every 6 hours Wheezing Cirrhosis of liver with ascites Congestion of nasal sinus Dizziness Hypomagnesemia Hypo-osmolality and hyponatremia BMI 25.0-25.9,adult Smoker Chronic obstructive pulmonary disease (COPD) Unchanged atorvastatin (atorvastatin 10 mg Tab) 1 Tablets By Mouth Every day Unchanged docusate (Colace 100 mg Cap) 1 Capsules By Mouth 3 times a day Oral, 0 Refill(s) Unchanged furosemide (Lasix 40 mg Tab) Oral, 0 Refill(s) Unchanged gabapentin (gabapentin 300 mg Cap) 1 Capsules By Mouth 3 times a day Duration: 90 Days Unchanged insulin aspart (Fiasp FlexTouch 100 units/ mL injectable solution) See instructions 38 units sub q once a eber Unchanged insulin degludec (Tresiba FlexTouch 100 units/ mL subcutaneous solution) See instructions use as directed sliding scale Unchanged magnesium oxide See instructions one orally daily Unchanged pantoprazole (Pantoprazole [address] Tab) See instructions TAKE 1 TABLET BY MOUTH DAILY Unchanged spironolactone (spironolactone 100 mg Tab) 1 Tablets By Mouth Every day Oral, 0 Refill(s) Unchanged tramadol (traMADOL 50 mg Tab) TAKE 1 TABLET BY MOUTH EVERY 4 HOURS NEEDED FOR PAIN FOR 7 DAYS Unchanged ursodiol (ursodiol 250 mg Tab) 300 Milligram TAKE 2 TABLETS BY MOUTH TWICE DAILY WITH MEALS Allergies No Known Medication Allergies Problems Ongoing - Any problem that you are currently receiving treatment for. Biliary cirrhosis Blindness BMI 25.0-25.9,adult Chronic obstructive pulmonary disease (COPD) Cirrhosis of liver Cirrhosis of liver with ascites Congestion of nasal sinus Diabetic neuropathy, type I diabetes mellitus Dizziness Esophageal varices determined by endoscopy Gastro-esophageal reflux disease without esophagitis Generalized anxiety disorder Hospital discharge follow-up Hyperlipidemia Hypertensive disorder Hypo-osmolality and hyponatremia Hypomagnesemia Hypophosphatemia Iron deficiency anemia Localized edema [facility] (current) use of insulin Metabolic encephalopathy Moderate major depression Moderate protein-calorie malnutrition Personal history of nicotine dependence Rectal varices Right hand weakness Right wrist pain Thrombocytopenia Type 1 diabetes mellitus with hyperglycemia Type 1 diabetes mellitus with hyperlipidemia Urinary retention Vitamin D deficiency Wheelchair dependent Wheezing Historical - Any problem that you are no longer receiving treatment for. Hyperlipidemia Type 1 diabetes mellitus Patient Survey You may receive a survey via text or e-mail asking about your office v (more content not included)... [facility] Family Medicine Office/Clini c Noteon 08-30-2024 Family Medicine Office/Clinic Note Family Medicine Office/Clinic Note [facility] Staff Teresa is a 64 year old female presenting with TCM: Feeling better since she has been home. Her daughter states she does not think the urinary retention has gotten better, her output seems low Hospital: [facility] Admission date: 08/19/24 Discharge date: 08/21/24 Symptoms the patient presented with: urinary retention has a Newman catheter- Has an appt with urology on 09/12/24 with Nicole Kelley PAVAN - 12 PHQ - 15 History of Present Illness pt presents today for TCM follow up Review of Systems PHQ Score Initial Depression Screen Score: 3 SCORE Detailed Depression Screen Score: 15 Total Depression Screen Score: 18 Physical Exam Vitals & Measurements T: 36.8 ???C(Temporal Artery) HR: 100(Peripheral) RR: 18 BP: 112/74 SpO2: 99% HT: 155.8 cm HT: 61 in WT: 61.80 kg WT: 136.246 lb BMI: 25.46 General: alert, no acute distress ENMT: oral mucosa moist, no pharyngeal erythema or exudate Cardiovascular: regular rate and rhythm, normal peripheral perfusion Respiratory: Lungs CTA, respirations non labored Extremities: no deformity, no trauma Neurological: oriented x 4, LOC appropriate for age, CN II-XII intact, motor strength equal & normal bilaterally, speech normal indwelling cath intact, draining dark yellow urine Assessment/Plan 1. Blindness (H54.7: Unspecified visual loss) scheduled for eye surgery on 09/08 Ordered: escitalopram, 10 mg = 1 tab(s), Oral, Daily, # 90 tab(s), Refills(s) 0 insulin degludec, 44 unit(s), SubCutaneous, Daily, # 9 mL, Refills(s) 5, Pharmacy: [facility], 155.8, cm, 08/30/24 14:09:00 EDT, Height/Length Dosing, 61.8, kg, 08/30/24 14:15:00 EDT, Weight Dosing Misc Prescription, Handicap Placard, See Instructions, 1 EA, 0, 5 years, Supply TCM [facility] 14 day disch [id number] 2. Wheelchair dependent (Z99.3: Dependence on wheelchair) currently uses wheelchair. will order handicap placard Ordered: escitalopram, 10 mg = 1 tab(s), Oral, Daily, # 90 tab(s), Refills(s) 0 insulin degludec, 44 unit(s), SubCutaneous, Daily, # 9 mL, Refills(s) 5, Pharmacy: [facility], 155.8, cm, 08/30/24 14:09:00 EDT, Height/Length Dosing, 61.8, kg, 08/30/24 14:15:00 EDT, Weight Dosing Misc Prescription, Handicap Placard, See Instructions, 1 EA, 0, 5 years, Supply [employer] [facility] 14 disch [id number] 3. Hospital discharge follow-up (Z09: Encounter for follow-up examination after completed treatment for conditions other than malignant neoplasm) pt presents today for hospital follow up. went to hospital with altered mental status. was treated for metabolic encephalopathy and UTI with retention. Ordered: escitalopram, 10 mg = 1 tab(s), Oral, Daily, # 90 tab(s), Refills(s) 0 insulin degludec, 44 unit(s), SubCutaneous, Daily, # 9 mL, Refills(s) 5, Pharmacy: [facility], 155.8, cm, 08/30/24 14:09:00 EDT, Height/Length Dosing, 61.8, kg, 08/30/24 14:15:00 EDT, Weight Dosing Misc Prescription, Handicap Placard, See Instructions, 1 EA, 0, 5 years, Supply [employer] [facility] 14 day disch [id number] 4. Metabolic encephalopathy (G93.41: Metabolic encephalopathy) stable upon D/C from hospital. Ordered: escitalopram, 10 mg = 1 tab(s), Oral, Daily, # 90 tab(s), Refills(s) 0 insulin degludec, 44 unit(s), SubCutaneous, Daily, # 9 mL, Refills(s) 5, Pharmacy: [facility], 155.8, cm, 08/30/24 14:09:00 EDT, Height/Length Dosing, 61.8, kg, 08/30/24 14:15:00 EDT, Weight Dosing Misc Prescription, Handicap Placard, See Instructions, 1 EA, 0, 5 years, Supply TCM [facility] 14 disch [id number] 5. Urinary retention (R33.9: Retention of urine, unspecified) Newman catheter intact. will follow up with urology in 2 weeks. draining dark yellow urine Ordered: escitalopram, 10 mg = 1 tab(s), Oral, Daily, # 90 tab(s), Refills(s) 0 insulin degludec, 44 unit(s), SubCutaneous, Daily, # 9 mL, Refills(s) 5, Pharmacy: [facility], 155.8, cm, 08/30/24 14:09:00 EDT, Height/Length Dosing, 61.8, kg, 08/30/24 14:15:00 EDT, Weight Dosing Misc Prescription, Handicap Placard, See Instructions, 1 EA, 0, 5 years, Supply TCM [facility] 14 disch [id number] 6. Biliary cirrhosis (K74.5: Biliary cirrhosis, unspecified) stable at this time Ordered: escitalopram, 10 mg = 1 tab(s), Oral, Daily, # 90 tab(s), Refills(s) 0 insulin degludec, 44 unit(s), SubCutaneous, Daily, # 9 mL, Refills(s) 5, Pharmacy: [facility], 155.8, cm, 08/30/24 14:09:00 EDT, Height/Length Dosing, 61.8, kg, 08/30/24 14:15:00 EDT, Weight Dosing Misc Prescription, Handicap Placard, See Instructions, 1 EA, 0, 5 years, Supply TCM [facility] 14 disch [id number] 7. Moderate major depression (F32.1: Major depressive disorder, single episode, moderate) pt has been through a lot with her health the last couple of months. is usually very independent and is trying to adjust to having people help her. with her vision loss she is unab (more content not included)... [facility] Comment on above: Result Comment: Elec tronically Signed By: Chapis Dumont\.br\Date and Time Signed: 08/30/24 14:47 EDT X-ray reportOrdered By: Farrukh Lange on 08-23-2024 Study report [facility] [address] [place] [address] XRay Report Signed Patient: Teresa Lyle MR#: [id number] : 1960 Acct:[id number] Age/Sex: 64 / F ADM Date: 5 Loc: [facility] Room: Type: [facility] CLI Attending Dr: Roger Robbins DO Copies to: Roger Robbins DO~ Ordering Provider: Roger Robbins DO Date of Service: 08/23/24 XR/XR femur RT 2V*: S72.141D - Displaced intertrochanteric fracture of right ... ([id number]) XR/XR pelvis 1-2V: S72.141D - Displaced intertrochanteric fracture of right ... 2 views of the right femur INDICATION: Follow-up right femur intramedullary rosina COMPARISON: 07/18/2024 Findings: Stable Postsurgical changes status post placement of intramedullary rosina and interlocking screw through the intertrochanteric hip fracture. Near-anatomic osseous alignment. There are vascular calculations. The remainder of the pelvis left hip intact. XR/XR pelvis 1-2V IMPRESSION: Expected postsurgical changes status post ORIF right femur fracture Impression dictated by: Navarro Lange M.D. 08/23/2024 6:47 PM Dictation Location: [place] [address] Transcribed By: [facility] 08/23/241846 Dictated By: Navarro Lange MD 08/23/241844 Signed By: 08/23/241846 [facility] Work Phone: XR femur RT 2V*on 08-23-2024 XR femur RT 2V* [facility] [address] [place] [address] XRay Report Signed Patient: Teresa Lyle MR#: [id number] : 1960 Acct:[id number] Age/Sex: 64 / F ADM Date: 08/23/24 Loc: [facility] Room: Type: [facility] CL Attending Dr: Roger Robbins DO Copies to: Roger Robbins DO Ordering Provider: Roger Robbins DO Date of Service: 08/23/24 XR/XR femur RT 2V*: S72.141D - Displaced intertrochanteric fracture of right ... ([id number]) XR/XR pelvis 1-2V: S72.141D - Displaced intertrochanteric fracture of right ... 2 views of the right femur INDICATION: Follow-up right femur intramedullary rosina COMPARISON: 07/18/2024 Findings: Stable Postsurgical changes status post placement of intramedullary rosina and interlocking screw through the intertrochanteric hip fracture. Near-anatomic osseous alignment. There are vascular calculations. The remainder of the pelvis left hip intact. XR/XR pelvis 1-2V IMPRESSION: Expected postsurgical changes status post ORIF right femur fracture Impression dictated by: Navarro Lange M.D. 08/23/2024 6:47 PM Dictation Location: [place] [address] Transcribed By: [facility] 08/23/241846 Dictated By: Navarro Lange MD 08/23/241844 Signed By: 08/23/241846 Normal [facility] Alanine aminotransferase [En zymatic activity/volume] in Serum or PlasmaOrdered By: Mack Carmona on 08-21-2024 ALT [Catalytic activity/Vol] 41 U/L Normal 7 [facility] Comment on above: Performed By: #### C MP ####[facility] [id number] [place] [address] [facility] Albumin [Mass/volume] in Ser um or Plasma by Bromocresol green (BCG) dye binding methoOrdered By: Mack Carmona on 08-21-2024 Albumin BCG dye [Mass/Vol] 2.2 g/dL Low 3.5-5.7 [facility] Alkaline phosphatase [Enzyma tic activity/volume] in Serum or PlasmaOrdered By: Mack Carmona on 08-21-2024 ALP [Catalytic activity/Vol] 292 U/L High 34-104 [facility] Comment on above: Performed By: #### C MP ####[place] [id number] [facility] Anisocytosis [Presence] in B lood by Light microscopyOrdered By: Mack Carmona on 08-21-2024 Anisocytosis Ql (Bld) Slight Normal [facility] Comment on above: Performed By: #### D IFF CBC ####[place] [id number] [facility] Aspartate aminotransferase [ Enzymatic activity/volume] in Serum or PlasmaOrdered By: Mack Carmona on 08-21-2024 AST [Catalytic activity/Vol] 61 U/L High 13-39 [facility] Comment on above: Performed By: #### C MP ####[place] [id number] [facility] Band form neutrophils/100 le ukocytes in Blood by Manual countOrdered By: Mack Carmona on 08-21-2024 Band form neutrophils/100 WBC (Bld) 3 % Normal 0-5 [facility] Comment on above: Performed By: #### D IFF CBC ####[place] [id number] [facility] Basophils Auto (Bld) [#/Vol] Ordered By: Mack Carmona on 08-21-2024 Basophils (Bld) [#/Vol] N/A [facility] Basophils/100 WBC Auto (Bld) Ordered By: Mackmatthew Carmona on 08-21-2024 Basophils/100 WBC (Bld) N/A [facility] Bilirubin.total [Mass/volume ] in Serum or PlasmaOrdered By: Mack Carmona on 08-21-2024 Bilirubin [Mass/Vol] 1.1 mg/dL High 0.3-1.0 [facility] Comment on above: Performed By: #### C MP ####[facility] Calcium [Mass/volume] in Ser um or PlasmaOrdered By: Mack Carmona on 08-21-2024 Calcium [Mass/Vol] 7.6 mg/dL Low 8.6-10.3 [facility] Comment on above: Performed By: #### C MP ####[facility] Capillary blood glucose elis urement by glucometer (mass/volume)Ordered By: Aly Hooks on 08-21-2024 Glucose [Mass/Vol] 387 mg/dL Normal [facility] Comment on above: Random Glucose Refer ence Range is dependent on time and content of last meal. Glucose of more than 200 mg/dL in a nonstressed, ambulatory subject supports the diagnosis of Diabetes Mellitus. Result Comment: [place] [facility] Glucose Reference Range is dependent on time and content of last meal. Glucose of more than 200 mg/dL in a nonstressed, ambulatory subject supports the diagnosis of Diabetes Mellitus. PERFORMED BY: [facility] [address] [place] [address] PATHOLOGIST BUILDING ENGINEER CHAD FREY M.D. Performed By: #### C RP, TSH3, ESR, BMP, BHOB, LIPASE, HEPATIC, SCAN CBC, PT #### [facility] [address] [place] [address] [place] Carbon dioxide, total [Moles /volume] in Serum or PlasmaOrdered By: Mack Carmona on 08-21-2024 CO2 [Moles/Vol] 25.9 mmol/L Normal 21.0-31.0 [facility] Comment on above: Performed By: #### C MP ####[facility] Chloride [Moles/volume] in S michael or PlasmaOrdered By: Mack Carmona on 08-21-2024 Chloride [Moles/Vol] 106 mmol/L Normal 98-107 [facility] Comment on above: Performed By: #### C MP ####[place] [address] [place] [address] [facility] Comprehensive Metabolic Pane gerhard 08-21-2024 Albumin [Mass/Vol] 2.2 g/dL Low 3.5-5.7 [facility] Comment on above: Performed By: #### C MP ####[place] [id number] [facility] Creatinine Clr Calc Pharmacy 96.11 Normal [facility] Comment on above: Result Comment: PERF ORMED BY: [facility] [address] [place] [id number] PATHOLOGIST BUILDING ENGINEER CHAD FREY M.D. Performed By: #### C MP ####[place] [id number] [facility] GFR/1.73 sq M.predicted MDRD (S/P/Bld) [Vol rate/Area] mL/min/{1.73_m2} Normal [facility] Comment on above: Performed By: #### C MP ####[address] [address] [facility] Creatinine [Mass/volume] in Serum or PlasmaOrdered By: Mack Carmona on 08-21-2024 Creatinine [Mass/Vol] 0.48 mg/dL Low 0.60-1.20 [facility] Comment on above: Performed By: #### C MP ####[place] [id number] [facility] Diff and CBCon 08-21-2024 Giant Platelet Tally 1 /100{WBC} Normal [facility] Comment on above: Performed By: #### D IFF CBC ####[place] [id number] [facility] Hypochromasia Slight Normal [facility] Comment on above: Performed By: #### D IFF CBC ####[address] [address] [facility] Mean Corpuscular HGB Conc 33.2 g/dL Normal 32.0-35.0 [facility] Comment on above: Performed By: #### D IFF CBC ####[place] [address] [place] [id number] [facility] Ovalocytes Slight Normal [facility] Comment on above: Performed By: #### D IFF CBC ####[address] [address] [facility] Platelet Estimate Decreased Normal Normal [facility] Comment on above: Performed By: #### D IFF CBC ####[place] [id number] [facility] Platelet Morphology Normal Normal Normal [facility] Comment on above: Result Comment: PERF ORMED BY: [facility] [address] [address] PATHOLOGIST BUILDING ENGINEER CHAD FREY M.D. Performed By: #### D IFF CBC ####[place] [id number] [facility] Poikilocytosis Slight Normal [facility] Comment on above: Performed By: #### D IFF CBC ####[place] [id number] [facility] White Blood Count 4.0 [CFU]/mL Normal 3.8-11.6 [facility] Comment on above: Performed By: #### D IFF CBC ####[place] [id number] [facility] Eosinophils Auto (Bld) [#/Vo l]Ordered By: Mack Carmona on 08-21-2024 Eosinophils (Bld) [#/Vol] N/A [facility] Eosinophils/100 WBC Auto (Bl d)Ordered By: Mack Carmona on 08-21-2024 Eosinophils/100 WBC (Bld) N/A [facility] Eosinophils/100 leukocytes i n Blood by Manual countOrdered By: Mack Carmona on 08-21-2024 Eosinophils/100 WBC (Bld) 3 % Normal 1-3 [facility] Comment on above: Performed By: #### D IFF CBC ####[facility] [address] [place] [id number] [facility] Erythrocyte distribution wid th [Ratio] by Automated countOrdered By: Mack Carmona on 08-21-2024 Erythrocyte distribution width (RBC) [Ratio] 25.1 % High 11.9-15.3 [facility] Comment on above: Performed By: #### D IFF CBC ####[facility] Erythrocyte morphology findi ng [Identifier] in BloodOrdered By: Mack Carmona on 08-21-2024 RBC morphology finding Nom (Bld) N/A [facility] Erythrocytes [#/volume] in B lood by Automated countOrdered By: Mack Carmona on 08-21-2024 RBC (Bld) [#/Vol] 4.40 10*6/uL Normal 3.60-5.00 [facility] Comment on above: Performed By: #### D IFF CBC ####[facility] [place] [id number] [facility] Giant platelets/100 leukocyt es [Ratio] in Blood by Manual countOrdered By: Mack Carmona on 08-21-2024 Giant platelets/100 WBC Manual cnt (Bld) [Ratio] 1 /100{WBC} [facility] Glucose Poct Glucometerson 0 08-21-2024 Glucose [Mass/Vol] 306 mg/dL Normal [facility] Comment on above: Result Comment: [place] Glucose Reference Range is dependent on time and content of last meal. Glucose of more than 200 mg/dL in a nonstressed, ambulatory subject supports the diagnosis of Diabetes Mellitus. PERFORMED BY: [facility] [address] [place] [address] PATHOLOGIST BUILDING ENGINEER CHAD FREY M.D. Performed By: #### C RP, TSH3, ESR, BMP, BHOB, LIPASE, HEPATIC, SCAN CBC, PT #### [facility] [address] Commemt1 Glu2: Cleaned Meter Normal [facility] Comment on above: Result Comment: PERF ORMED BY: [facility] [address] [place] [id number] PATHOLOGIST BUILDING ENGINEER CHAD FREY M.D. Performed By: #### G LUGM ####Point of Care testing, Glucose [Mass/Vol] 227 mg/dL Normal [facility] Comment on above: Result Comment: [place] [facility] Glucose Reference Range is dependent on time and content of last meal. Glucose of more than 200 mg/dL in a nonstressed, ambulatory subject supports the diagnosis of Diabetes Mellitus. Performed By: #### G LUGM ####Point of Care testing, Glucose [Mass/volume] in Ser um or PlasmaOrdered By: Mack Carmona on 08-21-2024 Glucose [Mass/Vol] 280 mg/dL Significant change down 70-100 [facility] Comment on above: Delta: 174 on -625ADA recommended reference rangeRandom Glucose Reference Range is dependent on time and content of last meal. Glucose of more than 200 mg/dL in a nonstressed, ambulatory subject supports the diagnosis of Diabetes Mellitus. Result Comment: [place] [facility] Glucose Reference Range is dependent on time and content of last meal. Glucose of more than 200 mg/dL in a nonstressed, ambulatory subject supports the diagnosis of Diabetes Mellitus. ADA recommended reference range Performed By: #### C MP ####[place] [address] [place] [id number] [facility] Hematocrit [Volume Fraction] of Blood by Automated countOrdered By: Mack Carmona on 08-21-2024 Hematocrit (Bld) [Volume fraction] 39.2 % Normal 34.0-46.4 [facility] Comment on above: Performed By: #### D IFF CBC ####[facility] Hemoglobin [Mass/volume] in BloodOrdered By: Mack Carmona on 08-21-2024 Hemoglobin (Bld) [Mass/Vol] 13.0 g/dL Normal 11.8-15.4 [facility] Comment on above: Performed By: #### D IFF CBC ####[address] Hypochromia LM Ql (Bld)Order ed By: Mack Carmona on 08-21-2024 Hypochromia Ql (Bld) Slight [facility] Leukocytes [#/volume] correc lyly for nucleated erythrocytes in Blood by Automated counOrdered By: Mack Carmona on 08-21-2024 WBC corrected for nucl RBC Auto (Bld) [#/Vol] 4.0 10*3/uL 3.8-11.6 [facility] Leukocytes [#/volume] in Blo od by Automated countOrdered By: Mack Carmona on 08-21-2024 WBC (Bld) [#/Vol] 4.0 10*3/uL Normal 3.8-11.6 [facility] Comment on above: Performed By: #### D IFF CBC ####[address] Lymphocytes Auto (Bld) [#/Vo l]Ordered By: Mack Carmona on 08-21-2024 Lymphocytes (Bld) [#/Vol] N/A [facility] Lymphocytes/100 WBC Auto (Bl d)Ordered By: Mack Carmona on 08-21-2024 Lymphocytes/100 WBC (Bld) N/A [facility] Lymphocytes/100 leukocytes i n Blood by Manual countOrdered By: Mack Carmona on 08-21-2024 Lymphocytes/100 WBC (Bld) 15 % Low 18-42 [facility] Comment on above: Performed By: #### D IFF CBC ####[address] MCH [Entitic mass] by Automa lyly countOrdered By: Mack Carmona on 08-21-2024 MCH (RBC) [Entitic mass] 29.6 pg Normal 24.7-34.3 [facility] Comment on above: Performed By: #### D IFF CBC ####[address] MCHC Auto (RBC) [Mass/Vol]Or dered By: Mack Carmona on 08-21-2024 MCHC (RBC) [Mass/Vol] 33.2 g/dL 32.0-35.0 [facility] MCV [Entitic volume] by Auto mated countOrdered By: Mack Carmona on 08-21-2024 MCV (RBC) [Entitic vol] 89.1 fL Normal 80-100 [facility] Comment on above: Performed By: #### D IFF CBC ####[facility] [address] [place] [address] [facility] Monocytes Auto (Bld) [#/Vol] Ordered By: Mack Carmona on 08-21-2024 Monocytes (Bld) [#/Vol] N/A [facility] Monocytes/100 WBC Auto (Bld) Ordered By: Mack Carmona on 08-21-2024 Monocytes/100 WBC (Bld) N/A [facility] Monocytes/100 leukocytes in Blood by Manual countOrdered By: Mack Carmona on 08-21-2024 Monocytes/100 WBC (Bld) 5 % Normal 2-11 [facility] Comment on above: Performed By: #### D IFF CBC ####[facility] [address] [place] [id number] [facility] Neutrophils Auto (Bld) [#/Vo l]Ordered By: Mack Carmona on 08-21-2024 Neutrophils (Bld) [#/Vol] N/A [facility] Neutrophils/100 WBC Auto (Bl d)Ordered By: Mack Carmona on 08-21-2024 Neutrophils/100 WBC (Bld) N/A [facility] No Panel InformationOrdered By: Mack Carmona on 08-21-2024 Estimated GFR (CKD-EPI) > 60.0 mL/Min [facility] Creatinine Clearance (Chem 96.11 [facility] Bedside Glucose Comment Glu2: cleaned meter [facility] Nucleated erythrocytes [Pres ence] in Blood by Automated countOrdered By: Mack Carmona on 08-21-2024 Nucleated RBC Auto Ql (Bld) N/A [facility] Ovalocytes [Presence] in Blo od by Light microscopyOrdered By: Mack Carmona on 08-21-2024 Ovalocytes LM Ql (Bld) Slight [facility] Platelet adequacy [Presence] in Blood by Light microscopyOrdered By: Mack Carmona on 08-21-2024 Platelets LM Ql (Bld) Decreased Normal [facility] Platelet mean volume [Entiti c volume] in Blood by Automated countOrdered By: Mack Carmona on 08-21-2024 Platelet mean volume (Bld) [Entitic vol] 9.2 fL Normal 6.3-10.7 [facility] Comment on above: Performed By: #### D IFF CBC ####[place] [address] Platelet morphology finding [Identifier] in BloodOrdered By: Mack Carmona on 08-21-2024 Platelet morphology finding Nom (Bld) Normal Normal [facility] Platelets [#/volume] in Bloo d by Automated countOrdered By: Mack Carmona on 08-21-2024 Platelets (Bld) [#/Vol] 62 10*3/uL Low 150-450 [facility] Comment on above: Performed By: #### D IFF CBC ####[place] [id number] [facility] Poikilocytosis [Presence] in Blood by Light microscopyOrdered By: Mack Carmona on 08-21-2024 Poikilocytosis LM Ql (Bld) [facility] Potassium [Moles/volume] in Serum or PlasmaOrdered By: Mack Carmona on 08-21-2024 Potassium [Moles/Vol] 4.9 mmol/L Normal 3.5-5.1 [facility] Comment on above: Performed By: #### C MP ####[address] Protein [Mass/volume] in Ser um or PlasmaOrdered By: Mack Carmona on 06-23-2025 Protein [Mass/Vol] 5.6 g/dL Low 6.4-8.9 [facility] Comment on above: Performed By: #### C MP ####[address] Segmented neutrophils/100 le ukocytes in Blood by Manual countOrdered By: Mack Carmona on 08-21-2024 Segmented neutrophils/100 WBC (Bld) 74 % High 50-70 [facility] Comment on above: Performed By: #### D IFF CBC ####[address] Serum globulin measurement b y calculation (mass/volume)Ordered By: Mack Carmona on Globulin (S) [Mass/Vol] 3.4 g/dL Normal [facility] Comment on above: Performed By: #### C MP ####[address] Serum or plasma albumin/glob ulin mass ratioOrdered By: Mack Carmona on 08-21-2024 Albumin/Globulin [Mass ratio] 0.6 {ratio} [facility] Comment on above: Performed By: #### C MP ####[address] Serum or plasma anion gap de terminationOrdered By: Mack Carmona on 08-21-2024 Anion gap [Moles/Vol] 6.0 mmol/L Normal 6.0-15.0 [facility] Comment on above: Performed By: #### C MP ####[address] Sodium [Moles/volume] in Ser um or PlasmaOrdered By: Mack Carmona on 08-21-2024 Sodium [Moles/Vol] 133 mmol/L Low 136-145 [facility] Comment on above: Performed By: #### C MP ####[address] Urea nitrogen [Mass/volume] in Serum or PlasmaOrdered By: Mack Carmona on 08-21-2024 Urea nitrogen [Mass/Vol] 10 mg/dL Normal 7-25 [facility] Comment on above: Performed By: #### C MP ####[facility] A1C with Estimated Average G luon 08-20-2024 Glucose [Mass/Vol] 263 mg/dL Normal [facility] Comment on above: Result Comment: PERF ORMED BY: [place] [address] PATHOLOGIST BUILDING ENGINEER CHAD FREY M.D. Performed By: #### C RP, TSH3, ESR, BMP, BHOB, LIPASE, HEPATIC, SCAN CBC, PT #### [address] BioFire Not Detectedon 08-20 [employer] Not Detected Not detected Normal Not Detecte [facility] Comment on above: Result Comment: This is a duplicate RP2.1 COVID (PCR) result to be used for statistical tracking purpose only. PERFORMED BY: [place] [address] PATHOLOGIST BUILDING ENGINEER CHAD FREY M.D. Performed By: #### C RP, TSH3, ESR, BMP, BHOB, LIPASE, HEPATIC, SCAN CBC, PT #### [facility] [address] [place] [address] Blood estimated average gluc ose determination by estimation from glycated hemoglobinOrdered By: Mack Carmona on 08-20-2024 Average glucose Estimated from glycated hemoglobin (Bld) [Mass/Vol] 263 mg/dL [facility] COVID-19 Detected/Not Detect edOrdered By: Mack Carmona on 08-20-2024 SARS-CoV-2 (COVID-19) RNA QUYNH+non-probe Ql (Nph) Not detected Not Detecte [facility] Comment on above: This is a duplicate RP2.1 COVID (PCR) result to be used for statistical tracking purpose only. Cholesterol [Mass/volume] in Serum or PlasmaOrdered By: Mack Carmona on 08-20-2024 Cholesterol [Mass/Vol] 148 mg/dL Normal 140-200 [facility] Comment on above: Chol less than 200 m g/dl low riskChol 201-239 mg/dl borderline riskChol 240 mg/dl and greater high risk Order Comment: GOPI Epps Result Comment: Chol less than 200 mg/dl low risk Chol 201-239 mg/dl borderline risk Chol 240 mg/dl and greater high risk Performed By: #### V [id number], PTT, SCAN CBC, PT, TSH3 wRFLX, [id number], LIPID, CMP, MG ####[facility] [address] [place] [address] [facility] Cholesterol in HDL [Mass/vol ume] in Serum or PlasmaOrdered By: Mack Carmona on 08-20-2024 Cholesterol in HDL [Mass/Vol] 58 mg/dL Normal 23-92 [facility] Comment on above: HDL CHOL ATP-III CLA SSIFICATION Cardiovascular RiskHDL > or equal to 60 mg/dL LOWHDL < 40 mg/dL HIGH Order Comment: [facility]I Epps Result Comment: HDL CHOL ATP-III CLASSIFICATION Cardiovascular Risk HDL > or equal to 60 mg/dL LOW HDL < 40 mg/dL HIGH Performed By: #### V [id number], PTT, SCAN CBC, PT, TSH3 wRFLX, [id number], LIPID, CMP, MG ####[facility] [address] [place] [address] [facility] Cholesterol in LDL Calc [Mas s/Vol]Ordered By: Mack Carmona on 08-20-2024 Cholesterol in LDL [Mass/Vol] 79 mg/dL 0-100 [facility] Comment on above: LDL ATP III CLASSIFI CATIONLDL less than 100 mg/dL OptimalLDL 100-129 mg/dL Near or above optimalLDL 130-159 mg/dL Borderline highLDL 160-189 mg/dL HighLDL greater than 189 mg/dL Very high Cholesterol in VLDL Calc [Ma ss/Vol]Ordered By: Mack Carmona on 08-20-2024 Cholesterol in VLDL [Mass/Vol] 11 mg/dL [facility] Comprehensive Metabolic Pane gerhard 06-22-2025 Albumin [Mass/Vol] 2.2 g/dL Low 3.5-5.7 [facility] Comment on above: Order Comment: FASTI NG Y Performed By: #### V [id number], PTT, SCAN CBC, PT, TSH3 wRFLX, [id number], LIPID, CMP, MG ####[place] [id number] [facility] Albumin/Globulin [Mass ratio] 0.6 {ratio} Normal [facility] Comment on above: Order Comment: FASTI NG Y Performed By: #### V [id number], PTT, SCAN CBC, PT, TSH3 wRFLX, [id number], LIPID, CMP, MG ####[place] [id number] [facility] ALP [Catalytic activity/Vol] 296 U/L High 34-104 [facility] Comment on above: Order Comment: FASTI NG Y Performed By: #### V [id number], PTT, SCAN CBC, PT, TSH3 wRFLX, [id number], LIPID, CMP, MG ####[address] ALT [Catalytic activity/Vol] 41 U/L Normal 7-52 [facility] Comment on above: Order Comment: FASTI NG Y Performed By: #### V [id number], PTT, SCAN CBC, PT, TSH3 wRFLX, [id number], LIPID, CMP, MG ####[address] Anion gap [Moles/Vol] 5.3 mmol/L Low 6.0-15.0 [facility] Comment on above: Order Comment: FASTI NG Y Performed By: #### V [id number], PTT, SCAN CBC, PT, TSH3 wRFLX, [id number], LIPID, CMP, MG ####[place] [id number] [facility] AST [Catalytic activity/Vol] 57 U/L High 13-39 [facility] Comment on above: Order Comment: FASTI NG Y Performed By: #### V [id number], PTT, SCAN CBC, PT, TSH3 wRFLX, [id number], LIPID, CMP, MG ####[address] Bilirubin [Mass/Vol] 1.0 mg/dL Normal 0.3-1.0 [facility] Comment on above: Order Comment: FASTI NG Y Performed By: #### V [id number], PTT, SCAN CBC, PT, TSH3 wRFLX, [id number], LIPID, CMP, MG ####[address] Calcium [Mass/Vol] 7.9 mg/dL Low 8.6-10.3 [facility] Comment on above: Order Comment: FASTI NG Y Performed By: #### V [id number], PTT, SCAN CBC, PT, TSH3 wRFLX, [id number], LIPID, CMP, MG ####[address] Chloride [Moles/Vol] 108 mmol/L High 98-107 [facility] Comment on above: Order Comment: FASTI NG Y Performed By: #### V [id number], PTT, SCAN CBC, PT, TSH3 wRFLX, [id number], LIPID, CMP, MG ####[address] CO2 [Moles/Vol] 25.8 mmol/L Normal 21.0-31.0 [facility] Comment on above: Order Comment: FASTI NG Y Performed By: #### V [id number], PTT, SCAN CBC, PT, TSH3 wRFLX, [id number], LIPID, CMP, MG ####[address] Creatinine [Mass/Vol] 0.34 mg/dL Low 0.60-1.20 [facility] Comment on above: Order Comment: FASTI NG Y Performed By: #### V [id number], PTT, SCAN CBC, PT, TSH3 wRFLX, [id number], LIPID, CMP, MG ####[facility] [address] Creatinine Clr Calc Pharmacy 135.69 Normal [facility] Comment on above: Order Comment: FASTI NG Y Performed By: #### V [id number], PTT, SCAN CBC, PT, TSH3 wRFLX, [id number], LIPID, CMP, MG ####[address] GFR/1.73 sq M.predicted MDRD (S/P/Bld) [Vol rate/Area] mL/min/{1.73_m2} Normal [facility] Comment on above: Order Comment: FASTI NG Y Performed By: #### V [id number], PTT, SCAN CBC, PT, TSH3 wRFLX, [id number], LIPID, CMP, MG ####[address] Globulin (S) [Mass/Vol] 3.5 g/dL Normal [facility] Comment on above: Order Comment: FASTI NG Y Performed By: #### V [id number], PTT, SCAN CBC, PT, TSH3 wRFLX, [id number], LIPID, CMP, MG ####[address] Glucose [Mass/Vol] 174 mg/dL Significant change down 70-100 [facility] Comment on above: Order Comment: FASTI NG Y Result Comment: [facility] Glucose Reference Range is dependent on time and content of last meal. Glucose of more than 200 mg/dL in a nonstressed, ambulatory subject supports the diagnosis of Diabetes Mellitus. ADA recommended reference range Performed By: #### V [id number], PTT, SCAN CBC, PT, TSH3 wRFLX, [id number], LIPID, CMP, MG ####[address] Potassium [Moles/Vol] 4.1 mmol/L Normal 3.5-5.1 [facility] Comment on above: Order Comment: FASTI NG Y Performed By: #### V [id number], PTT, SCAN CBC, PT, TSH3 wRFLX, [id number], LIPID, CMP, MG ####[facility] [place] [address] [facility] Protein [Mass/Vol] 5.7 g/dL Low 6.4-8.9 [facility] Comment on above: Order Comment: FASTI NG Y Performed By: #### V [id number], PTT, SCAN CBC, PT, TSH3 wRFLX, [id number], LIPID, CMP, MG ####[place] [id number] [place] [id number] [facility] Sodium [Moles/Vol] 135 mmol/L Significant change down 136-145 [facility] Comment on above: Order Comment: FASTI NG Y Performed By: #### V [id number], PTT, SCAN CBC, PT, TSH3 wRFLX, [id number], LIPID, CMP, MG ####[place] [address] [place] [address] [facility] Urea nitrogen [Mass/Vol] 9 mg/dL Normal 7-25 [facility] Comment on above: Order Comment: FASTI NG Y Performed By: #### V [id number], PTT, SCAN CBC, PT, TSH3 wRFLX, [id number], LIPID, CMP, MG ####[place] [address] [place] [id number] [facility] Folate [Mass/volume] in Seru m or PlasmaOrdered By: Mack Carmona on 08-20-2024 Folate [Mass/Vol] 13.1 ng/mL >5.9 [facility] Comment on above: Folate reference ran ge: >5.9 ng/mlThe WHO technical consultation on folate and vitamin [id number] has determined that folate concentrations lessthan 4 ng/ml are considered deficient. Glucose Poct Glucometerson 0 08-20-2024 Commemt1 Glu2: Cleaned Meter Normal [facility] Comment on above: Result Comment: PERF ORMED BY: [facility] [address] [place] [id number] PATHOLOGIST BUILDING ENGINEER CHAD FREY M.D. Performed By: #### G LULS ####Point of Care testing, Glucose [Mass/Vol] 322 mg/dL Normal [facility] Comment on above: Result Comment: [place] om Glucose Reference Range is dependent on time and content of last meal. Glucose of more than 200 mg/dL in a nonstressed, ambulatory subject supports the diagnosis of Diabetes Mellitus. Performed By: #### G LULS ####Point of Care testing, Glucose [Mass/Vol] 251 mg/dL Normal [facility] Comment on above: Result Comment: [place] Glucose Reference Range is dependent on time and content of last meal. Glucose of more than 200 mg/dL in a nonstressed, ambulatory subject supports the diagnosis of Diabetes Mellitus. PERFORMED BY: [place] [address] PATHOLOGIST BUILDING ENGINEER CHAD FREY M.D. Performed By: #### G LULS ####Point of Care testing, Glucose [Mass/Vol] 209 mg/dL Normal [facility] Comment on above: Result Comment: [place] Glucose Reference Range is dependent on time and content of last meal. Glucose of more than 200 mg/dL in a nonstressed, ambulatory subject supports the diagnosis of Diabetes Mellitus. PERFORMED BY: [place] [address] PATHOLOGIST BUILDING ENGINEER CHAD FREY M.D. Performed By: #### C RP, TSH3, ESR, BMP, BHOB, LIPASE, HEPATIC, SCAN CBC, PT #### [address] Glucose [Mass/Vol] 167 mg/dL Normal [facility] Comment on above: Result Comment: [place] Glucose Reference Range is dependent on time and content of last meal. Glucose of more than 200 mg/dL in a nonstressed, ambulatory subject supports the diagnosis of Diabetes Mellitus. PERFORMED BY: [place] [address] PATHOLOGIST BUILDING ENGINEER CHAD FREY M.D. Performed By: #### C RP, TSH3, ESR, BMP, BHOB, LIPASE, HEPATIC, SCAN CBC, PT #### [address] Hemoglobin A1c/Hemoglobin.to jesus alberto in BloodOrdered By: Mack Carmona on 08-20-2024 HbA1c (Bld) [Mass fraction] 10.8 % High 4.3-5.6 [facility] Comment on above: Increased risk for d iabetes: 5.7 - 6.4diabetes: >6.4glycemic control for adults with diabetes: <7.0 Result Comment: Incr eased risk for diabetes: 5.7 - 6.4 diabetes: >6.4 glycemic control for adults with diabetes: <7.0 Performed By: #### C RP, TSH3, ESR, BMP, BHOB, LIPASE, HEPATIC, SCAN CBC, PT #### [facility] [address] INR in Platelet poor plasma by Coagulation assayOrdered By: Mack Carmona on 08-20-2024 INR Coag (PPP) [Relative time] 1.1 {INR} Normal [facility] Comment on above: INR Therapeutic Rang e A) Pre- and Peroperative OAT started two weeks before surgery. NOT HIP SURGERY: 1.5 - 2.5 HIP SURGERY: 2 - 3B) Primary and secondary prevention of venous THROMBOSIS: 2 - 3C) Active venous thrombosis, pulmonary embolismand prevention of recurrent venous thrombosis: 2 - 3D) Prevention of arterial thromboembolismincluding patients with mechanical heart valves: 3 - 4.5 Result Comment: INR Therapeutic Range A) Pre- and Peroperative OAT started two weeks before surgery. NOT HIP SURGERY: 1.5 - 2.5 HIP SURGERY: 2 - 3 B) Primary and secondary prevention of venous THROMBOSIS: 2 - 3 C) Active venous thrombosis, pulmonary embolism and prevention of recurrent venous thrombosis: 2 - 3 D) Prevention of arterial thromboembolism including patients with mechanical heart valves: 3 - 4.5 Performed By: #### V [id number], PTT, SCAN CBC, PT, TSH3 wRFLX, [id number], LIPID, CMP, MG ####[facility] [id number] [place] [id number] [facility] Lipid Panelon 08-20-2024 LDL Cholesterol,Calculate d 79 mg/dL Normal 0-100 [facility] Comment on above: Order Comment: FASTI BELNE Y Result Comment: LDL ATP III CLASSIFICATION LDL less than 100 mg/dL Optimal LDL 100-129 mg/dL Near or above optimal LDL 130-159 mg/dL Borderline high LDL 160-189 mg/dL High LDL greater than 189 mg/dL Very high Performed By: #### V [id number], PTT, SCAN CBC, PT, TSH3 wRFLX, [id number], LIPID, CMP, MG ####[place] [address] Triglyceride w/Reflex 57 mg/dL Normal 0-149 [facility] Comment on above: Order Comment: FASTI NG Y Result Comment: TRIG ATP III CLASSIFICATION TRIG less than 150 mg/dL Normal TRIG 150-199 mg/dL Borderline high TRIG 200-500 mg/dL High TRIG greater than 500 mg/dL Very high Standard traceable to the Center for Disease Conrtrol and Prevention (CDC) test method. Performed By: #### V [id number], PTT, SCAN CBC, PT, TSH3 wRFLX, [id number], LIPID, CMP, MG ####[address] VLDL CHOLESTEROL 11 mg/dL Normal [facility] Comment on above: Order Comment: FASTI NG Y Performed By: #### V [id number], PTT, SCAN CBC, PT, TSH3 wRFLX, [id number], LIPID, CMP, MG ####[address] Magnesium [Mass/volume] in S michael or PlasmaOrdered By: Mack Carmona on 08-20-2024 Magnesium [Mass/Vol] 1.9 mg/dL Normal 1.9-2.7 [facility] Comment on above: Order Comment: FASTI NG Y Performed By: #### V [id number], PTT, SCAN CBC, PT, TSH3 wRFLX, [id number], LIPID, CMP, MG ####[address] Partial Thromboplastin Timeo n 08-20-2024 aPTT Coag (Bld) [Time] 30.8 s Normal 25.1-36.5 [facility] Comment on above: Result Comment: A he matocrit value greater than 55% may lead to inaccurate results in coagulation testing. Patients having hematocrit values >55% require a special collection tube for coagulation studies. Please contact the laboratory at [phone] for redraw instructions. PERFORMED BY: [facility] [address] [place] [address] PATHOLOGIST BUILDING ENGINEER CHAD FREY M.D. Performed By: #### V [id number], PTT, SCAN CBC, PT, TSH3 wRFLX, [id number], LIPID, CMP, MG ####[facility] [place] [address] [facility] Platelets Large [Presence] i n Blood by Light microscopyOrdered By: Mack Carmona on 08-20-2024 Platelets Large LM Ql (Bld) Slight [facility] Prothrombin time (PT)Ordered By: Mack Carmona on 08-20-2024 PT Coag (PPP) [Time] 12.5 s Normal 9.0-12.9 [facility] Comment on above: A hematocrit value g reater than 55% may lead to inaccurate results in coagulation testing. Patients having hematocrit values >55% require a special collection tube for coagulation studies. Please contact the laboratory at [phone] for redraw instructions. Result Comment: A he matocrit value greater than 55% may lead to inaccurate results in coagulation testing. Patients having hematocrit values >55% require a special collection tube for coagulation studies. Please contact the laboratory at [phone] for redraw instructions. Performed By: #### V [id number], PTT, SCAN CBC, PT, TSH3 wRFLX, [id number], LIPID, CMP, MG ####[facility] [place] [address] [facility] Respiratory (Upper) Panel, P CRon 08-20-2024 Respiratory (Upper) Panel, PCR Adenovirus Not detected Bordetella parapertussis Not detected Chlamydia pneumoniae Not detected Coronavirus 229E Not detected Coronavirus HKU1 Not detected Coronavirus NL63 Not detected Coronavirus OC43 Not detected Influenza A Not detected Influenza B Not detected Human Metapneumovirus Not detected Mycoplasma pneumoniae Not detected Parainfluenza Virus 1 Not detected Parainfluenza Virus 2 Not detected Parainfluenza Virus 3 Not detected Parainfluenza Virus 4 Not detected Bordetella pertussis-ptxP Not detected Human Rhino/Enterovirus Not detected Resp. Syncytial Virus Not detected COVID-19 Detected/Not Detected Not detected Blank Space -- FLUA TEST INCLUDES Influenza A tests for the following clinically FLUA TEST INCLUDES significant subtypes: FLUA TEST INCLUDES - Influenza A FLUA TEST INCLUDES - Influenza A H1 FLUA TEST INCLUDES - Influenza A H1 2009 FLUA TEST INCLUDES - Influenza A H3 Blank Space -- PERFORMED BY: [place] [address] PATHOLOGIST BUILDING ENGINEER CHAD FREY M.D. Normal [facility] Comment on above: Performed By: #### C RP, TSH3, ESR, BMP, BHOB, LIPASE, HEPATIC, SCAN CBC, PT #### [facility] [address] Respiratory pathogens DNA an d RNA panel - Nasopharynx by QUYNH with non-probe detectionOrdered By: Mack Carmona on 08-20-2024 Respiratory pathogens DNA and RNA panel QUYNH+non-probe (Nph) [facility] Scan and CBCon 08-20-2024 Anisocytosis Ql (Bld) Marked Normal [facility] Comment on above: Performed By: #### V [id number], PTT, SCAN CBC, PT, TSH3 wRFLX, [id number], LIPID, CMP, MG ####[facility] [id number] Basophils (Bld) [#/Vol] 0.0 10*3/uL Normal 0.0-0.2 [facility] Comment on above: Performed By: #### V [id number], PTT, SCAN CBC, PT, TSH3 wRFLX, [id number], LIPID, CMP, MG ####[address] Basophils/100 WBC (Bld) 1.4 % Normal . [facility] Comment on above: Performed By: #### V [id number], PTT, SCAN CBC, PT, TSH3 wRFLX, [id number], LIPID, CMP, MG ####[address] Eosinophils (Bld) [#/Vol] 0.2 10*3/uL Normal 0.0-0.45 [facility] Comment on above: Performed By: #### V [id number], PTT, SCAN CBC, PT, TSH3 wRFLX, [id number], LIPID, CMP, MG ####[address] Eosinophils/100 WBC (Bld) 5.7 % Normal . [facility] Comment on above: Performed By: #### V [id number], PTT, SCAN CBC, PT, TSH3 wRFLX, [id number], LIPID, CMP, MG ####[address] Erythrocyte distribution width (RBC) [Ratio] 25.2 % High 11.9-15.3 [facility] Comment on above: Performed By: #### V [id number], PTT, SCAN CBC, PT, TSH3 wRFLX, [id number], LIPID, CMP, MG ####[address] Hematocrit (Bld) [Volume fraction] 40.1 % Normal 34.0-46.4 [facility] Comment on above: Performed By: #### V [id number], PTT, SCAN CBC, PT, TSH3 wRFLX, [id number], LIPID, CMP, MG ####[address] Hemoglobin (Bld) [Mass/Vol] 13.0 g/dL Normal 11.8-15.4 [facility] Comment on above: Performed By: #### V [id number], PTT, SCAN CBC, PT, TSH3 wRFLX, [id number], LIPID, CMP, MG ####[address] Large Platelets Slight Normal [facility] Comment on above: Result Comment: PERF ORMED BY: [facility] [address] [place] [place] [address] PATHOLOGIST BUILDING ENGINEER CHAD FREY M.D. Performed By: #### V [id number], PTT, SCAN CBC, PT, TSH3 wRFLX, [id number], LIPID, CMP, MG ####[address] Lymphocytes (Bld) [#/Vol] 0.9 10*3/uL Low 1.00-4.8 [facility] Comment on above: Performed By: #### V [id number], PTT, SCAN CBC, PT, TSH3 wRFLX, [id number], LIPID, CMP, MG ####[address] Lymphocytes/100 WBC (Bld) 27.9 % Normal . [facility] Comment on above: Performed By: #### V [id number], PTT, SCAN CBC, PT, TSH3 wRFLX, [id number], LIPID, CMP, MG ####[address] MCH (RBC) [Entitic mass] 29.1 pg Normal 24.7-34.3 [facility] Comment on above: Performed By: #### V [id number], PTT, SCAN CBC, PT, TSH3 wRFLX, [id number], LIPID, CMP, MG ####[address] MCV (RBC) [Entitic vol] 90.3 fL Normal 80-100 [facility] Comment on above: Performed By: #### V [id number], PTT, SCAN CBC, PT, TSH3 wRFLX, [id number], LIPID, CMP, MG ####[address] Mean Corpuscular HGB Conc 32.3 g/dL Normal 32.0-35.0 [facility] Comment on above: Performed By: #### V [id number], PTT, SCAN CBC, PT, TSH3 wRFLX, [id number], LIPID, CMP, MG ####[address] Monocytes (Bld) [#/Vol] 0.3 10*3/uL Normal 0.0-0.8 [facility] Comment on above: Performed By: #### V [id number], PTT, SCAN CBC, PT, TSH3 wRFLX, [id number], LIPID, CMP, MG ####[address] Monocytes/100 WBC (Bld) 8.7 % Normal . [facility] Comment on above: Performed By: #### V [id number], PTT, SCAN CBC, PT, TSH3 wRFLX, [id number], LIPID, CMP, MG ####[address] Neutrophils (Bld) [#/Vol] 1.8 10*3/uL Normal 1.8-7.7 [facility] Comment on above: Performed By: #### V [id number], PTT, SCAN CBC, PT, TSH3 wRFLX, [id number], LIPID, CMP, MG ####[address] Neutrophils/100 WBC (Bld) 56.3 % Normal . [facility] Comment on above: Performed By: #### V [id number], PTT, SCAN CBC, PT, TSH3 wRFLX, [id number], LIPID, CMP, MG ####[address] NRBC% 0.1 /100{WBC} Normal 0-0.5 [facility] Comment on above: Performed By: #### V [id number], PTT, SCAN CBC, PT, TSH3 wRFLX, [id number], LIPID, CMP, MG ####[address] Platelet Estimate Decreased Normal Normal [facility] Comment on above: Performed By: #### V [id number], PTT, SCAN CBC, PT, TSH3 wRFLX, [id number], LIPID, CMP, MG ####[place] [id number] [facility] Platelet mean volume (Bld) [Entitic vol] 9.6 fL Normal 6.3-10.7 [facility] Comment on above: Performed By: #### V [id number], PTT, SCAN CBC, PT, TSH3 wRFLX, [id number], LIPID, CMP, MG ####[address] Platelets (Bld) [#/Vol] 54 10*3/uL Low 150-450 [facility] Comment on above: Performed By: #### V [id number], PTT, SCAN CBC, PT, TSH3 wRFLX, [id number], LIPID, CMP, MG ####[address] RBC (Bld) [#/Vol] 4.44 10*6/uL Normal 3.60-5.00 [facility] Comment on above: Performed By: #### V [id number], PTT, SCAN CBC, PT, TSH3 wRFLX, [id number], LIPID, CMP, MG ####[place] [id number] [facility] WBC (Bld) [#/Vol] 3.2 10*3/uL Low 3.8-11.6 [facility] Comment on above: Performed By: #### V [id number], PTT, SCAN CBC, PT, TSH3 wRFLX, [id number], LIPID, CMP, MG ####[place] [id number] [place] White Blood Count 3.2 [CFU]/mL Low 3.8-11.6 [facility] Comment on above: Performed By: #### V [id number], PTT, SCAN CBC, PT, TSH3 wRFLX, [id number], LIPID, CMP, MG ####[place] [address] Serum or plasma total choles terol/high density lipoprotein (HDL) cholesterol mass ratOrdered By: Mack Carmona on 08-20-2024 Cholesterol.total/Cho lesterol in HDL [Mass ratio] 2.6 {ratio} Normal <5.0 [facility] Comment on above: Order Comment: FASTI NG Y Performed By: #### V [id number], PTT, SCAN CBC, PT, TSH3 wRFLX, [id number], LIPID, CMP, MG ####[place] [address] Thyroid Stim Hormone w/Rflxo n 08-20-2024 Thyroid Stim Hormone w/Rflx 1.24 u[iU]/mL Normal 0.45-5.33 [facility] Comment on above: Order Comment: FASTI NG Y Performed By: #### V [id number], PTT, SCAN CBC, PT, TSH3 wRFLX, [id number], LIPID, CMP, MG ####[address] Thyrotropin [Units/volume] i n Serum or PlasmaOrdered By: Mack Carmona on 08-20-2024 TSH Qn 1.24 m[IU]/L 0.45-5.33 [facility] Triglyceride [Mass/volume] i n Serum or PlasmaOrdered By: Mack Carmona on 08-20-2024 Triglyceride [Mass/Vol] 57 mg/dL 0-149 [facility] Comment on above: TRIG ATP III CLASSIF ICATIONTRIG less than 150 mg/dL NormalTRIG 150-199 mg/dL Borderline highTRIG 200-500 mg/dL High TRIG greater than 500 mg/dL Very highStandard traceable to the Center for Disease Conrtrol and Prevention (CDC) test method. Vit. B12/Folate Profileon Folate 13.1 ng/mL Normal >5.9 [facility] Comment on above: Order Comment: FASTI NG Y Result Comment: Sophia te reference range: >5.9 ng/ml The WHO technical consultation on folate and vitamin b12 deficiencies has determined that folate concentrations less than 4 ng/ml are considered deficient. Performed By: #### V [id number], PTT, SCAN CBC, PT, TSH3 wRFLX, [id number], LIPID, CMP, MG ####[facility] [place] [address] [facility] Vitamin B12 ser/plasOrdered By: Mack Carmona on 08-20-2024 Cobalamin (Vitamin B12) [Mass/Vol] 1345 pg/mL High 180-914 [facility] Comment on above: Order Comment: FASTI NG Y Performed By: #### V [id number], PTT, SCAN CBC, PT, TSH3 wRFLX, [id number], LIPID, CMP, MG ####[place] [address] [place] [address] [facility] Vitamin D 25 Hydroxy Totalon 08-20-2024 Vitamin D 25 Hydroxy Total 26.3 ng/mL Low 30-100 [facility] Comment on above: Order Comment: FASTI NG Y Result Comment: DEVAN MIN D STATUS 25([place])VITAMIN D RANGE (ng/mL) Deficient <20 Insufficient 20 to <30 Sufficient 30 to 100 Reference: Mynor MF,Benson NC, Bola GIRON, et al. Evaluation,treatment, and prevention of vitamin D deficiency; an Endocrine Society clinical practice guideline. JCEM. 2010; 96(7):1911-30. PERFORMED BY: [facility] [address] [place] [address] PATHOLOGIST BUILDING ENGINEER CHAD FREY M.D. Performed By: #### V [id number], PTT, SCAN CBC, PT, TSH3 wRFLX, [id number], LIPID, CMP, MG ####[place] [address] [place] [address] [facility] Vitamin D+Metabolites [Mass/ volume] in Serum or PlasmaOrdered By: Mack Carmona on 08-20-2024 Vitamin D+Metabolites [Mass/Vol] 26.3 ng/mL Low 30-100 [facility] Comment on above: VITAMIN D STATUS 25( [place])VITAMIN D RANGE (ng/mL) Deficient <20 Insufficient 20 to <30Sufficient 30 to 100Reference: Mynor MF,Benson NC, Bola GIRON, et al. Evaluation,treatment, and prevention of vitamin D deficiency; an Endocrine Society clinical practice guideline. JCEM. 2010; 96(7):1911-30. aPTT in Platelet poor plasma by Coagulation assayOrdered By: Mack Carmona on 08-20-2024 aPTT Coag (PPP) [Time] 30.8 s 25.1-36.5 [facility] Comment on above: A hematocrit value g reater than 55% may lead to inaccurate results in coagulation testing. Patients having hematocrit values >55% require a special collection tube for coagulation studies. Please contact the laboratory at [phone] for redraw instructions. Acetaminophen [Mass/volume] in Serum or PlasmaOrdered By: Deshaun Han on 08-19-2024 Acetaminophen [Mass/Vol] 7.9 ug/mL Low 10.0-30.0 [facility] Comment on above: Result Comment: PERF ORMED BY: [facility] [address] [place] [address] PATHOLOGIST BUILDING ENGINEER CHAD FREY M.D. Performed By: #### C RP, TSH3, ESR, BMP, BHOB, LIPASE, HEPATIC, SCAN CBC, PT #### [facility] [address] [place] [id number] [facility] Amphetamine Screen Ql (U)Ord ered By: Deshaun Han on 08-19-2024 Amphetamines Ql (U) Negative Negative [facility] Appearance of UrineOrdered B y: Deshaun Han on 08-19-2024 Appearance (U) Clear Normal Clear [facility] Comment on above: Order Comment: Name Collection Type:: Clean-Voided Midstream Performed By: #### C RP, TSH3, ESR, BMP, BHOB, LIPASE, HEPATIC, SCAN CBC, PT #### [facility] [address] Barbiturates [Presence] in U rine by Screen methodOrdered By: Deshaun Han on 08-19-2024 Barbiturates Screen Ql (U) Negative Negative [facility] Basic Metabolic Panelon 07-31 Anion gap [Moles/Vol] 8.5 mmol/L Normal 6.0-15.0 [facility] Comment on above: Performed By: #### C RP, TSH3, ESR, BMP, BHOB, LIPASE, HEPATIC, SCAN CBC, PT #### [facility] [address] Calcium [Mass/Vol] 8.0 mg/dL Low 8.6-10.3 [facility] Comment on above: Performed By: #### C RP, TSH3, ESR, BMP, BHOB, LIPASE, HEPATIC, SCAN CBC, PT #### [facility] [address] Chloride [Moles/Vol] 101 mmol/L Normal 98-107 [facility] Comment on above: Performed By: #### C RP, TSH3, ESR, BMP, BHOB, LIPASE, HEPATIC, SCAN CBC, PT #### [facility] [address] CO2 [Moles/Vol] 24.3 mmol/L Normal 21.0-31.0 [facility] Comment on above: Performed By: #### C RP, TSH3, ESR, BMP, BHOB, LIPASE, HEPATIC, SCAN CBC, PT #### [facility] [address] Creatinine [Mass/Vol] 0.59 mg/dL Low 0.60-1.20 [facility] Comment on above: Performed By: #### C RP, TSH3, ESR, BMP, BHOB, LIPASE, HEPATIC, SCAN CBC, PT #### [facility] [address] Creatinine Clr Calc Pharmacy 78.19 Normal [facility] Comment on above: Performed By: #### C RP, TSH3, ESR, BMP, BHOB, LIPASE, HEPATIC, SCAN CBC, PT #### [facility] [address] [place] [id number] [place] GFR/1.73 sq M.predicted MDRD (S/P/Bld) [Vol rate/Area] mL/min/{1.73_m2} Normal [facility] Comment on above: Performed By: #### C RP, TSH3, ESR, BMP, BHOB, LIPASE, HEPATIC, SCAN CBC, PT #### [facility] [address] [place] [id number] [place] Glucose [Mass/Vol] 571 mg/dL Off scale high 70-100 [facility] Comment on above: Result Comment: Crit ical Result Called to and read back by: KEITH ARDON at: 08/19/2024 15:24:41 by:LFM Random Glucose Reference Range is dependent on time and content of last meal. Glucose of more than 200 mg/dL in a nonstressed, ambulatory subject supports the diagnosis of Diabetes Mellitus. ADA recommended reference range Performed By: #### C RP, TSH3, ESR, BMP, BHOB, LIPASE, HEPATIC, SCAN CBC, PT #### [facility] [address] [place] [id number] [place] Potassium [Moles/Vol] 4.8 mmol/L Normal 3.5-5.1 [facility] Comment on above: Result Comment: Hemo lysis is present at a level that could interfere with the result. Contact lab if redraw is required Performed By: #### C RP, TSH3, ESR, BMP, BHOB, LIPASE, HEPATIC, SCAN CBC, PT #### [facility] [address] [place] [address] [place] Sodium [Moles/Vol] 129 mmol/L Low 136-145 [facility] Comment on above: Performed By: #### C RP, TSH3, ESR, BMP, BHOB, LIPASE, HEPATIC, SCAN CBC, PT #### [facility] [address] [place] [address] [place] Urea nitrogen [Mass/Vol] 12 mg/dL Normal 7-25 [facility] Comment on above: Performed By: #### C RP, TSH3, ESR, BMP, BHOB, LIPASE, HEPATIC, SCAN CBC, PT #### [facility] [address] Benzodiazepines Screen Ql (U )Ordered By: Deshaun Han on 08-19-2024 Benzodiazepines Ql (U) Negative Negative [facility] Benzoylecgonine [Presence] i n Urine by Screen methodOrdered By: Deshaun Han on 08-19-2024 Benzoylecgonine Screen Ql (U) Negative Negative [facility] Beta Hydroxybuterateon 08-19 Beta Hydroxybuterate 0.15 mmol/L Normal 0.02-0.27 [facility] Comment on above: Performed By: #### C RP, TSH3, ESR, BMP, BHOB, LIPASE, HEPATIC, SCAN CBC, PT ####[facility] [id number] Beta hydroxybutyrate [Moles/ volume] in Serum or PlasmaOrdered By: Deshaun Han on 08-19-2024 Beta hydroxybutyrate [Moles/Vol] 0.15 mmol/L 0.02-0.27 [facility] Bilirubin Test strip Ql (U)O rdered By: Deshaun Han on 08-19-2024 Bilirubin Ql (U) Negative Negative [facility] Bilirubin.direct [Mass/volum e] in Serum or PlasmaOrdered By: Deshaun Han on 08-19-2024 Bilirubin.direct [Mass/Vol] 0.30 mg/dL High 0.03-0.18 [facility] Blood Cultureon 08-19-2024 Bacteria identified Cx Nom (Bld) NO GROWTH 5 DAYS PERFORMED BY: [place] [address] PATHOLOGIST BUILDING ENGINEER CHAD Sosa [facility] Comment on above: Performed By: #### C UBLD ####[facility] [id number] Bacteria identified Cx Nom (Bld) NO GROWTH 5 DAYS PERFORMED BY: [address] [place] [address] PATHOLOGIST BUILDING ENGINEER CHAD Sosa [facility] Comment on above: Performed By: #### C UBLD ####[address] C reactive protein [Mass/vol ume] in Serum or PlasmaOrdered By: Deshaun Han on 08-19-2024 CRP [Mass/Vol] 1.3 mg/dL High 0.0-0.5 [facility] C-Reactive Proteinon 025 C-Reactive Protein 1.3 mg/dL High 0.0-0.5 [facility] Comment on above: Performed By: #### C RP, TSH3, ESR, BMP, BHOB, LIPASE, HEPATIC, SCAN CBC, PT #### [address] Performed By: #### C RP, TSH3, ESR, BMP, BHOB, LIPASE, HEPATIC, SCAN CBC, PT ####[address] abdomen pelvis w conon CT abdomen pelvis w con [facility] [place] [address] CT Scan Report Signed Patient: Tersea Lyle MR#: [id number] : 1960 Acct:[id number] Age/Sex: 64 / F ADM Date: 08/19/24 Loc: Room: [address] [place] [address] Type: DIS INOo Attending Dr: Aly Hooks MD Copies to: MD Deshaun Mcgowan MD Ordering Provider: Deshaun Han MD Date of Service: 08/19/24 CT/CT abdomen pelvis w con: discharge from umbilicus, abdo pain CT ABDOMEN AND PELVIS WITH INTRAVENOUS CONTRAST: CLINICAL HISTORY: Constipation for 2 days. COMPARISON: None TECHNIQUE: Spiral images were obtained through the abdomen and pelvis following the administration of intravenous contrast. This CT exam was performed using one or more following dose reduction techniques: Automated exposure control, adjustment of the mA and/or kV according to patient size, or use of iterative reconstruction technique. FINDINGS: Lung Bases: [Minimal atelectasis.] Organs:Cirrhotic liver with TIPS shunt noted. Gallbladder has been removed. Splenomegaly measuring 13.6 cm. A focal pancreatic abnormality. Adrenal glands appear unremarkable. No enhancing renal mass or hydronephrosis. Abdominal aorta appears normal in caliber.[ GI: There appears to be coil embolization in the region of the GE junction. Stomach is nondistended. Small bowel appears nondilated. Appendix is normal. No acute colonic abnormality.[ Pelvis:[Urinary bladder is grossly distended to the L4 vertebral body level. Uterus is atrophic. Peritoneum/Retroperitoneum :No free air or free fluid or lymphadenopathy.[ Abd wall/Bones:Body wall anasarca. Small amount of fluid within it appears to be within a ventral hernia. Osseous structures demonstrate degenerative change. Chronic appearing compression deformity L2 vertebral body. Right hip hardware. CT/CT abdomen pelvis w con IMPRESSION: No acute findings. Impression dictated by: Rubin Aaron Jr., DJordanaOJordana 08/19/2024 4:25 PM Dictation Location: [place] [address] Transcribed By: [facility] 08/19/24 1625 Dictated By: Rubin Aaron Jr, DO 08/19/24 1614 Signed By: 08/19/24 1625 Normal [facility] CT head/brain wo conon 08-19 CT head/brain wo con [facility] [place] [address] [place] [address] CT Scan Report Signed Patient: Teresa Lyle MR#: [id number] : 1960 Acct:[id number] Age/Sex: 64 / F ADM Date: 08/19/24 Loc: 3T Room: [address] [place] [address] Type: DIS INOo Attending Dr: Aly Hooks MD Copies to: MD Deshaun Mcgowan MD Ordering Provider: Deshaun Han MD Date of Service: 08/19/24 CT/CT head/brain wo con: ams, unclear baseline CT BRAIN WITHOUT CONTRAST: CLINICAL HISTORY: Altered mental status COMPARISON: CT brain 06/30/2024 TECHNIQUE: Contiguous axial unenhanced images were obtained through the brain. This CT exam was performed using one or more following dose reduction techniques: Automated exposure control, adjustment of the mA and/or kV according to patient size, or use of iterative reconstruction technique. FINDINGS: There is no evidence of midline shift, intra or extra-axial fluid collection, hemorrhage or CT evidence of stroke. Cortical atrophy with chronic microvascular ischemic changes similar to the prior study. Posterior fossa appears unremarkable. Visualized intraorbital contents demonstrate no acute findings. Visualized paranasal sinuses are clear. The surrounding soft tissues are normal. CT/CT head/brain wo con IMPRESSION: NO ACUTE INTRACRANIAL ABNORMALITY. Impression dictated by: Rubin Aaron Jr., D.OJordana 08/19/2024 4:14 PM Dictation Location: [facility]--18 Transcribed By: [facility] 08/19/24 161 Dictated By: Rubin Aaron Jr, DO 08/19/24 1612 Signed By: 08/19/24 1614 Normal [facility] Cannabinoids [Presence] in U rine by Screen methodOrdered By: Deshaun Han on 08-19-2024 Cannabinoids Screen Ql (U) Negative Negative [facility] Comment on above: These are unconfirme d results and should not be used for legal purposes. Drug Cut-Off Concentration: AMPH 1000 ng/mL TIM 200 ng/mL DONI 200 ng/mL COCM 300 ng/mL OP 300 ng/mL PCP 25 ng/mL THC 20 ng/mL Color of Urine by AutoOrdere d By: Deshaun Han on 08-19-2024 Color (U) Light-yellow Normal Yellow [facility] Comment on above: Order Comment: Name Collection Type:: Clean-Voided Midstream Performed By: #### C RP, TSH3, ESR, BMP, BHOB, LIPASE, HEPATIC, SCAN CBC, PT #### [facility] [address] [place] [id number] [facility] Drug Screen,Urineon 08-20-19 Amphetamine Screen,Urine Negative Normal Negative [facility] Comment on above: Performed By: #### C RP, TSH3, ESR, BMP, BHOB, LIPASE, HEPATIC, SCAN CBC, PT #### [facility] [address] [place] [address] [facility] Barbiturate Screen,Urine Negative Normal Negative [facility] Comment on above: Performed By: #### C RP, TSH3, ESR, BMP, BHOB, LIPASE, HEPATIC, SCAN CBC, PT #### [facility] [address] Benzodiazepines Screen,Urine Negative Normal Negative [facility] Comment on above: Performed By: #### C RP, TSH3, ESR, BMP, BHOB, LIPASE, HEPATIC, SCAN CBC, PT #### [address] Cannabinoid Screen,Urine Negative Normal Negative [facility] Comment on above: Result Comment: Thes e are unconfirmed results and should not be used for legal purposes. Drug Cut-Off Concentration: AMPH 1000 ng/mL TIM 200 ng/mL DONI 200 ng/mL COCM 300 ng/mL OP 300 ng/mL PCP 25 ng/mL THC 20 ng/mL PERFORMED BY: [place] [address] PATHOLOGIST BUILDING ENGINEER CHAD FREY M.D. Performed By: #### C RP, TSH3, ESR, BMP, BHOB, LIPASE, HEPATIC, SCAN CBC, PT #### [address] Cocaine Screen,Urine Negative Normal Negative [facility] Comment on above: Performed By: #### C RP, TSH3, ESR, BMP, BHOB, LIPASE, HEPATIC, SCAN CBC, PT #### [address] Opiate Screen,Urine Negative Normal Negative [facility] Comment on above: Performed By: #### C RP, TSH3, ESR, BMP, BHOB, LIPASE, HEPATIC, SCAN CBC, PT #### [address] Phencyclidine Screen,Urine Negative Normal Negative [facility] Comment on above: Performed By: #### C RP, TSH3, ESR, BMP, BHOB, LIPASE, HEPATIC, SCAN CBC, PT #### [address] ECG 12 lead ECG 08-19-2024 ECG 12 lead ECG [facility] [place] [address] [place] [address] Electrocardiograph Report Signed Patient: Teresa Lyle MR#: [id number] : 1960 Acct:[id number] Age/Sex: 64 / F ADM Date: 08/19/24 Loc: Room: [address] [place] [address] Type: ADM IN Attending Dr: Mack Carmona MD Ordering Provider: Deshaun Han MD Date of Service: 08/19/24 ECG/ECG 12 lead ECG: Abdominal Pain Copies to: Test Reason : Blood Pressure : 141/65 mmHG Vent. Rate : 80 BPM Atrial Rate : 80 BPM P-R Int : 128 ms QRS Dur : 82 ms QT Int : 386 ms P-R-T Axes : 61 71 80 degrees QTcB Int : 445 ms Normal sinus rhythm Normal ECG When compared with ECG of 30-Jun-2024 19:29, QRS axis shifted left Confirmed by NAOMI TORRE DO ([id number]) on 08/20/2024 1:43:12 AM Referred By: Electronically Signed By: NAOMI TORRE DO Transcribed By: MUS Signed By Naomi Torre DO 0143 Normal [facility] Erythrocyte Sedimentation Ra tobias 08-19-2024 ESR (Bld) [Velocity] 59 mm/h High 0-29 [facility] Comment on above: Result Comment: PERF ORMED BY: [place] [address] PATHOLOGIST BUILDING ENGINEER CHAD FREY M.D. Performed By: #### C RP, TSH3, ESR, BMP, BHOB, LIPASE, HEPATIC, SCAN CBC, PT ####[facility] [id number] [place] [id number] [facility] Erythrocyte sedimentation ra te by Photometric methodOrdered By: Deshaun Han on 08-19-2024 ESR Photometric method (Bld) [Velocity] 59 mm/hr High 0-29 [facility] Ethanol [Mass/volume] in Ser um or PlasmaOrdered By: Deshaun Han on 08-19-2024 Ethanol [Mass/Vol] mg/dL Normal [facility] Comment on above: Performed By: #### C RP, TSH3, ESR, BMP, BHOB, LIPASE, HEPATIC, SCAN CBC, PT #### [address] Ethyl Alcohol Profileon 06-2 Percent Ethanol Not performed Normal [facility] Comment on above: Result Comment: PERF ORMED BY: [place] [address] PATHOLOGIST BUILDING ENGINEER CHAD FREY M.D. Performed By: #### C RP, TSH3, ESR, BMP, BHOB, LIPASE, HEPATIC, SCAN CBC, PT #### [address] Glucose Poct Glucometerson 0 08-19-2024 Glucose [Mass/Vol] 396 mg/dL Normal [facility] Comment on above: Result Comment: [place] om Glucose Reference Range is dependent on time and content of last meal. Glucose of more than 200 mg/dL in a nonstressed, ambulatory subject supports the diagnosis of Diabetes Mellitus. PERFORMED BY: [place] [address] PATHOLOGIST BUILDING ENGINEER CHAD FREY M.D. Performed By: #### G LULS ####Point of Care testing, Commemt1 Normal [facility] Comment on above: Result Comment: Glu2 : WILL NOTIFY DR/RN PERFORMED BY: [place] [address] PATHOLOGIST BUILDING ENGINEER CHAD FREY M.D. Performed By: #### C RP, TSH3, ESR, BMP, BHOB, LIPASE, HEPATIC, SCAN CBC, PT #### [address] Glucose [Mass/Vol] 424 mg/dL Off scale high [facility] Comment on above: Result Comment: [place] Glucose Reference Range is dependent on time and content of last meal. Glucose of more than 200 mg/dL in a nonstressed, ambulatory subject supports the diagnosis of Diabetes Mellitus. Performed By: #### C RP, TSH3, ESR, BMP, BHOB, LIPASE, HEPATIC, SCAN CBC, PT #### [facility] [address] Glucose [Mass/volume] in Uri ne by Test stripOrdered By: Deshaun Han on 08-19-2024 Glucose Test strip (U) [Mass/Vol] >=1000 mg/dL High Normal [facility] Hemoglobin Test strip Ql (U) Ordered By: Deshaun Han on 08-19-2024 Hemoglobin Ql (U) Negative Negative [facility] Hepatic Panelon 08-19-2024 Albumin [Mass/Vol] 2.6 g/dL Low 3.5-5.7 [facility] Comment on above: Performed By: #### C RP, TSH3, ESR, BMP, BHOB, LIPASE, HEPATIC, SCAN CBC, PT #### [facility] [address] Albumin/Globulin [Mass ratio] 0.7 {ratio} Normal [facility] Comment on above: Performed By: #### C RP, TSH3, ESR, BMP, BHOB, LIPASE, HEPATIC, SCAN CBC, PT #### [facility] [address] ALP [Catalytic activity/Vol] 345 U/L High 34-104 [facility] Comment on above: Performed By: #### C RP, TSH3, ESR, BMP, BHOB, LIPASE, HEPATIC, SCAN CBC, PT #### [facility] [address] ALT [Catalytic activity/Vol] 46 U/L Normal 7-52 [facility] Comment on above: Performed By: #### C RP, TSH3, ESR, BMP, BHOB, LIPASE, HEPATIC, SCAN CBC, PT #### [address] AST [Catalytic activity/Vol] 70 U/L High 13-39 [facility] Comment on above: Performed By: #### C RP, TSH3, ESR, BMP, BHOB, LIPASE, HEPATIC, SCAN CBC, PT #### [facility] [address] Bilirubin [Mass/Vol] 1.4 mg/dL High 0.3-1.0 [facility] Comment on above: Result Comment: Samp les from patients who have taken Naproxen have shown spurious elevation in Total Bilirubin levels. A metabolite of Naproxen, O-desmethylnaproxen, has been shown to interfere with the Jendrassik-Grof method for measuring Total Bilirubin. Performed By: #### C RP, TSH3, ESR, BMP, BHOB, LIPASE, HEPATIC, SCAN CBC, PT #### [address] Bilirubin,Indirect 1.1 mg/dL Normal [facility] Comment on above: Performed By: #### C RP, TSH3, ESR, BMP, BHOB, LIPASE, HEPATIC, SCAN CBC, PT #### [address] Bilirubin.indirect [Mass/Vol] 0.30 mg/dL High 0.03-0.18 [facility] Comment on above: Performed By: #### C RP, TSH3, ESR, BMP, BHOB, LIPASE, HEPATIC, SCAN CBC, PT #### [address] Globulin (S) [Mass/Vol] 4.0 g/dL Normal [facility] Comment on above: Performed By: #### C RP, TSH3, ESR, BMP, BHOB, LIPASE, HEPATIC, SCAN CBC, PT #### [address] Protein [Mass/Vol] 6.6 g/dL Normal 6.4-8.9 [facility] Comment on above: Performed By: #### C RP, TSH3, ESR, BMP, BHOB, LIPASE, HEPATIC, SCAN CBC, PT #### [address] Ketones [Presence] in Urine by Test stripOrdered By: Deshaun Han on 08-19-2024 Ketones Ql (U) Negative Normal Negative [facility] Comment on above: Order Comment: Name Collection Type:: Clean-Voided Midstream Performed By: #### C RP, TSH3, ESR, BMP, BHOB, LIPASE, HEPATIC, SCAN CBC, PT #### [facility] [address] Lactate [Moles/volume] in Se rum or PlasmaOrdered By: Deshaun Han on 08-19-2024 Lactate [Moles/Vol] 2.8 mmol/L Critically high 0.5-1.9 [facility] Comment on above: Critical Result : Ca lled to and read back by: COCO NEWMAN at: 08/19/2024 19:35:53 by:LFMLactic Acid reference range has been updated to 0.5 1.9 mmol/L and the critical range of 2.0 or greater. Lactic Acidon 08-19-2024 Lactate [Moles/Vol] 2.1 mmol/L Off scale high 0.5-1.9 [facility] Comment on above: Result Comment: Crit ical Result : Called to and read back by: TERESITA YOUNG at: 08/19/2024 15:25:19 by:LFM Lactic Acid reference range has been updated to 0.5 ? 1.9 mmol/L and the critical range of 2.0 or greater. PERFORMED BY: [place] [address] PATHOLOGIST BUILDING ENGINEER CHAD FREY M.D. Performed By: #### L ACTIC ####[facility] [id number] [place] [id number] [facility] Lactic Acid Reflexon 025 Lactic Acid Reflex 2.8 mmol/L Off scale high 0.5-1.9 [facility] Comment on above: Result Comment: Crit ical Result : Called to and read back by: COCO NEWMAN at: 08/19/2024 19:35:53 by:LFM Lactic Acid reference range has been updated to 0.5 ? 1.9 mmol/L and the critical range of 2.0 or greater. PERFORMED BY: [place] [address] PATHOLOGIST BUILDING ENGINEER CHAD FREY M.D. Performed By: #### C RP, TSH3, ESR, BMP, BHOB, LIPASE, HEPATIC, SCAN CBC, PT #### [facility] [address] Leukocyte esterase [Presence ] in Urine by Test stripOrdered By: Deshaun Han on 08-19-2024 Leukocyte esterase Test strip Ql (U) Negative Normal Negative [facility] Comment on above: Order Comment: Name Collection Type:: Clean-Voided Midstream Performed By: #### C RP, TSH3, ESR, BMP, BHOB, LIPASE, HEPATIC, SCAN CBC, PT #### [facility] [address] Lipase [Enzymatic activity/v olume] in Serum or PlasmaOrdered By: Deshaun Han on 08-19-2024 Lipase [Catalytic activity/Vol] 26.0 U/L Normal 11.0-82.0 [facility] Comment on above: Performed By: #### C RP, TSH3, ESR, BMP, BHOB, LIPASE, HEPATIC, SCAN CBC, PT #### [facility] [address] Monocyte distribution width [Entitic volume] in Blood by AutomatedOrdered By: Deshaun Han on 08-19-2024 Monocyte distribution width Auto (Bld) [Entitic vol] 19.02 % 0.00-20.00 [facility] Nitrite Test strip Ql (U)Ord ered By: Deshaun Han on 08-19-2024 Nitrite Ql (U) Negative Negative [facility] Opiates [Presence] in Urine by Screen methodOrdered By: Deshaun Han on 08-19-2024 Opiates Screen Ql (U) Negative Negative [facility] Phencyclidine Screen Ql (U)O rdered By: Deshaun Han on 08-19-2024 Phencyclidine Ql (U) Negative Negative [facility] Polychromasia [Presence] in Blood by Light microscopyOrdered By: Deshaun Han on 08-19-2024 Polychromasia LM Ql (Bld) Moderate [facility] Protein Test strip (U) [Mass /Vol]Ordered By: Deshaun Han on 08-19-2024 Protein (U) [Mass/Vol] Negative Negative [facility] Prothrombin Time INRon 08-19 INR Coag (PPP) [Relative time] 1.2 {INR} Normal [facility] Comment on above: Result Comment: INR Therapeutic Range A) Pre- and Peroperative OAT started two weeks before surgery. NOT HIP SURGERY: 1.5 - 2.5 HIP SURGERY: 2 - 3 B) Primary and secondary prevention of venous THROMBOSIS: 2 - 3 C) Active venous thrombosis, pulmonary embolism and prevention of recurrent venous thrombosis: 2 - 3 D) Prevention of arterial thromboembolism including patients with mechanical heart valves: 3 - 4.5 PERFORMED BY: [place] [address] PATHOLOGIST BUILDING ENGINEER CHAD FREY M.D. Performed By: #### C RP, TSH3, ESR, BMP, BHOB, LIPASE, HEPATIC, SCAN CBC, PT #### [place] [id number] [facility] PT Coag (PPP) [Time] 13.5 s High 9.0-12.9 [facility] Comment on above: Result Comment: A he matocrit value greater than 55% may lead to inaccurate results in coagulation testing. Patients having hematocrit values >55% require a special collection tube for coagulation studies. Please contact the laboratory at [phone] for redraw instructions. Performed By: #### C RP, TSH3, ESR, BMP, BHOB, LIPASE, HEPATIC, SCAN CBC, PT #### [place] [id number] [place] Salicylateon 08-19-2024 Salicylate <1.5 Low 15.0-30.0 [facility] Comment on above: Result Comment: Carmencita ents treated with Sulfasalazine may generate a false high result for Salicylate. Performed By: #### C RP, TSH3, ESR, BMP, BHOB, LIPASE, HEPATIC, SCAN CBC, PT #### [place] [address] [place] Salicylates [Mass/volume] in Serum or PlasmaOrdered By: Deshaun Han on 08-19-2024 Salicylates [Mass/Vol] mg/dL Low 15.0-30.0 [facility] Comment on above: Patients treated wit h Sulfasalazine may generate a false high result for Salicylate. Scan and CBCon 08-19-2024 Anisocytosis Ql (Bld) Slight Normal [facility] Comment on above: Performed By: #### C RP, TSH3, ESR, BMP, BHOB, LIPASE, HEPATIC, SCAN CBC, PT #### [address] Basophils (Bld) [#/Vol] 0.0 10*3/uL Normal 0.0-0.2 [facility] Comment on above: Performed By: #### C RP, TSH3, ESR, BMP, BHOB, LIPASE, HEPATIC, SCAN CBC, PT #### [address] Basophils/100 WBC (Bld) 0.8 % Normal . [facility] Comment on above: Performed By: #### C RP, TSH3, ESR, BMP, BHOB, LIPASE, HEPATIC, SCAN CBC, PT #### [address] Eosinophils (Bld) [#/Vol] 0.1 10*3/uL Normal 0.0-0.45 [facility] Comment on above: Performed By: #### C RP, TSH3, ESR, BMP, BHOB, LIPASE, HEPATIC, SCAN CBC, PT #### [address] Eosinophils/100 WBC (Bld) 2.6 % Normal . [facility] Comment on above: Performed By: #### C RP, TSH3, ESR, BMP, BHOB, LIPASE, HEPATIC, SCAN CBC, PT #### [address] Erythrocyte distribution width (RBC) [Ratio] 25.2 % High 11.9-15.3 [facility] Comment on above: Performed By: #### C RP, TSH3, ESR, BMP, BHOB, LIPASE, HEPATIC, SCAN CBC, PT #### [address] Hematocrit (Bld) [Volume fraction] 40.2 % Normal 34.0-46.4 [facility] Comment on above: Performed By: #### C RP, TSH3, ESR, BMP, BHOB, LIPASE, HEPATIC, SCAN CBC, PT #### [address] Hemoglobin (Bld) [Mass/Vol] 13.2 g/dL Normal 11.8-15.4 [facility] Comment on above: Performed By: #### C RP, TSH3, ESR, BMP, BHOB, LIPASE, HEPATIC, SCAN CBC, PT #### [address] Hypochromasia Slight Normal [facility] Comment on above: Performed By: #### C RP, TSH3, ESR, BMP, BHOB, LIPASE, HEPATIC, SCAN CBC, PT #### [address] Lymphocytes (Bld) [#/Vol] 0.8 10*3/uL Low 1.00-4.8 [facility] Comment on above: Performed By: #### C RP, TSH3, ESR, BMP, BHOB, LIPASE, HEPATIC, SCAN CBC, PT #### [address] Lymphocytes/100 WBC (Bld) 23.3 % Normal . [facility] Comment on above: Performed By: #### C RP, TSH3, ESR, BMP, BHOB, LIPASE, HEPATIC, SCAN CBC, PT #### [address] MCH (RBC) [Entitic mass] 29.7 pg Normal 24.7-34.3 [facility] Comment on above: Performed By: #### C RP, TSH3, ESR, BMP, BHOB, LIPASE, HEPATIC, SCAN CBC, PT #### [address] MCV (RBC) [Entitic vol] 90.7 fL Normal 80-100 [facility] Comment on above: Performed By: #### C RP, TSH3, ESR, BMP, BHOB, LIPASE, HEPATIC, SCAN CBC, PT #### [address] Mean Corpuscular HGB Conc 32.8 g/dL Normal 32.0-35.0 [facility] Comment on above: Performed By: #### C RP, TSH3, ESR, BMP, BHOB, LIPASE, HEPATIC, SCAN CBC, PT #### [address] Monocytes (Bld) [#/Vol] 0.3 10*3/uL Normal 0.0-0.8 [facility] Comment on above: Performed By: #### C RP, TSH3, ESR, BMP, BHOB, LIPASE, HEPATIC, SCAN CBC, PT #### [address] Monocytes/100 WBC (Bld) 19.02 % Normal 0.00-20.00 [facility] Comment on above: Performed By: #### C RP, TSH3, ESR, BMP, BHOB, LIPASE, HEPATIC, SCAN CBC, PT #### [address] Monocytes/100 WBC (Bld) 9.3 % Normal . [facility] Comment on above: Performed By: #### C RP, TSH3, ESR, BMP, BHOB, LIPASE, HEPATIC, SCAN CBC, PT #### [address] Neutrophils (Bld) [#/Vol] 2.1 10*3/uL Normal 1.8-7.7 [facility] [facility] Comment on above: Performed By: #### C RP, TSH3, ESR, BMP, BHOB, LIPASE, HEPATIC, SCAN CBC, PT #### [address] Neutrophils/100 WBC (Bld) 64.0 % Normal . [facility] Comment on above: Performed By: #### C RP, TSH3, ESR, BMP, BHOB, LIPASE, HEPATIC, SCAN CBC, PT #### [facility] [address] NRBC% 0.2 /100{WBC} Normal 0-0.5 The [facility] Comment on above: Performed By: #### C RP, TSH3, ESR, BMP, BHOB, LIPASE, HEPATIC, SCAN CBC, PT #### [facility] [address] Platelet Estimate Decreased Normal Normal The [facility] Comment on above: Performed By: #### C RP, TSH3, ESR, BMP, BHOB, LIPASE, HEPATIC, SCAN CBC, PT #### [address] Platelet mean volume (Bld) [Entitic vol] 9.9 fL Normal 6.3-10.7 The [facility] Comment on above: Performed By: #### C RP, TSH3, ESR, BMP, BHOB, LIPASE, HEPATIC, SCAN CBC, PT #### [facility] [address] Platelet Morphology Normal Normal Normal The [facility] Comment on above: Performed By: #### C RP, TSH3, ESR, BMP, BHOB, LIPASE, HEPATIC, SCAN CBC, PT #### [address] Platelets (Bld) [#/Vol] 56 10*3/uL Low 150-450 [facility] Comment on above: Performed By: #### C RP, TSH3, ESR, BMP, BHOB, LIPASE, HEPATIC, SCAN CBC, PT #### [address] Polychromasia Moderate Normal The [facility] Comment on above: Performed By: #### C RP, TSH3, ESR, BMP, BHOB, LIPASE, HEPATIC, SCAN CBC, PT #### [address] RBC (Bld) [#/Vol] 4.43 10*6/uL Normal 3.60-5.00 The [facility] Comment on above: Performed By: #### C RP, TSH3, ESR, BMP, BHOB, LIPASE, HEPATIC, SCAN CBC, PT #### [address] WBC (Bld) [#/Vol] 3.3 10*3/uL Low 3.8-11.6 The [facility] Comment on above: Performed By: #### C RP, TSH3, ESR, BMP, BHOB, LIPASE, HEPATIC, SCAN CBC, PT #### [address] White Blood Count 3.3 [CFU]/mL Low 3.8-11.6 The [facility] Comment on above: Performed By: #### C RP, TSH3, ESR, BMP, BHOB, LIPASE, HEPATIC, SCAN CBC, PT #### [address] Serum or plasma ethanol elis urement (mass/volume)Ordered By: Deshaun Han on 08-19-2024 Ethanol [Mass/Vol] TNP [facility] Comment on above: Test not performed Serum or plasma non-glucuron idated bilirubin measurement (mass/volume)Ordered By: Deshaun Han on 08-19-2024 Bilirubin.indirect [Mass/Vol] 1.1 mg/dL [facility] Specific gravity Test strip (U) [Rel density]Ordered By: Deshaun Han on 08-19-2024 Specific gravity (U) [Rel density] 1.029 1.001-1.03 0 [facility] Thyroid Stimulating Hormoneo n 08-19-2024 TSH Qn 1.23 m[IU]/L Normal 0.45-5.33 The [facility] Comment on above: Result Comment: PERF ORMED BY: [place] [address] PATHOLOGIST BUILDING ENGINEER CHAD FREY M.D. Performed By: #### C RP, TSH3, ESR, BMP, BHOB, LIPASE, HEPATIC, SCAN CBC, PT #### [place] [address] [place] Performed By: #### C RP, TSH3, ESR, BMP, BHOB, LIPASE, HEPATIC, SCAN CBC, PT ####[facility] Troponin I High Sensitivityo n 08-19-2024 Troponin I High Sensitivity 5 Normal 0-15 [facility] Comment on above: Result Comment: The Troponin units of report have been changed to meet the Chest Pain Accreditation requirement, element EC5.M1l2. Troponin units are changed from pg/ml to ng/L. Also, the decimal is removed and results are in whole numbers. PERFORMED BY: [place] [address] PATHOLOGIST BUILDING ENGINEER CHAD FREY M.D. Performed By: #### C RP, TSH3, ESR, BMP, BHOB, LIPASE, HEPATIC, SCAN CBC, PT #### [facility] [address] Troponin I.cardiac [Mass/vol ume] in Serum or Plasma by Detection limit <= 0.01 ng/mLOrdered By: Deshaun Han on 08-19-2024 Troponin I.cardiac DL <= 0.01 ng/mL [Mass/Vol] 5 ng/L 0-15 [facility] Comment on above: The Troponin units o f report have been changed to meet the Chest Pain Accreditation requirement, element EC5.M1l2. Troponin units are changed from pg/ml to ng/L. Also, the decimal is removed and results are in whole numbers. Urinalysison 08-19-2024 Bilirubin,Urine Negative Normal Negative The [facility] Comment on above: Order Comment: Name Collection Type:: Clean-Voided Midstream Performed By: #### C RP, TSH3, ESR, BMP, BHOB, LIPASE, HEPATIC, SCAN CBC, PT #### [facility] [address] Glucose Ql (U) >= Normal Normal The [facility] Comment on above: Order Comment: Name Collection Type:: Clean-Voided Midstream Performed By: #### C RP, TSH3, ESR, BMP, BHOB, LIPASE, HEPATIC, SCAN CBC, PT #### [address] Nitrite,Urine Negative Normal Negative The [facility] Comment on above: Order Comment: Name Collection Type:: Clean-Voided Midstream Performed By: #### C RP, TSH3, ESR, BMP, BHOB, LIPASE, HEPATIC, SCAN CBC, PT #### [address] Occult Blood,Urine Negative Normal Negative The [facility] Comment on above: Order Comment: Name Collection Type:: Clean-Voided Midstream Result Comment: PERF ORMED BY: [place] [address] PATHOLOGIST BUILDING ENGINEER CHAD FREY M.D. Performed By: #### C RP, TSH3, ESR, BMP, BHOB, LIPASE, HEPATIC, SCAN CBC, PT #### [address] Protein,Urine Negative Normal Negative [facility] Comment on above: Order Comment: Name Collection Type:: Clean-Voided Midstream Performed By: #### C RP, TSH3, ESR, BMP, BHOB, LIPASE, HEPATIC, SCAN CBC, PT #### [address] Specificy [place],Urine 1.029 Normal 1.001-1.03 0 [facility] Comment on above: Order Comment: Name Collection Type:: Clean-Voided Midstream Performed By: #### C RP, TSH3, ESR, BMP, BHOB, LIPASE, HEPATIC, SCAN CBC, PT #### [address] Urobilinogen,Urine Normal Normal Normal The [facility] Comment on above: Order Comment: Name Collection Type:: Clean-Voided Midstream Performed By: #### C RP, TSH3, ESR, BMP, BHOB, LIPASE, HEPATIC, SCAN CBC, PT #### [address] Urobilinogen Test strip (U) [Mass/Vol]Ordered By: Deshaun Han on 08-19-2024 Urobilinogen (U) [Mass/Vol] Normal mg/dL Normal [facility] pH of Urine by Test stripOrd ered By: Deshaun Han on 08-19-2024 pH (U) 7.0 [pH] Normal 5.0-9.0 [facility] Comment on above: Order Comment: Name Collection Type:: Clean-Voided Midstream Performed By: #### C RP, TSH3, ESR, BMP, BHOB, LIPASE, HEPATIC, SCAN CBC, PT #### [facility] [address] CNCOon 08-10-2024 CNCO Letter Text Normal [facility] X-ray reportOrdered By: Gerardo Cardenas on 07-26-2024 Study report [facility] [address] [place] [address] XRay Report Signed Patient: Teresa Lyle MR#: [id number] : 1960 Acct:[id number] Age/Sex: 64 / F ADM Date: 5 Loc: [facility] Room: Type: [facility] Attending Dr: Roegr Robbins DO Copies to: Roger Robbins DO~ Ordering Provider: Roger Robbins DO Date of Service: 07/26/24 XR/XR femur RT 2V*: S72.141D - Displaced intertrochanteric fracture of right ... XR femur RT 2V* 07/26/2024 2:52 PM SIGNS AND SYMPTOMS: Follow-up hardware fixation of right femur PROTOCOL: Frontal and lateral radiographs of the right femur COMPARISON: 07/10/2024 FINDINGS: There is hardware fixation of the right femur is redemonstration of an intertrochanteric fracture of the right hip. There is no hardware complication or change in alignment. Vascular calcifications are present in the soft tissues. XR/XR femur RT 2V* IMPRESSION: Status post hardware fixation of an intertrochanteric fracture of the right hip without hardware complication or malalignment. Impression dictated by: Gerardo Cardenas M.D. 07/26/2024 4:59 PM Dictation Location: RADIO-PC-23 Transcribed By: CHRISTIN 07/26/241658 Dictated By: Gerardo Cardenas II, MD 07/26/241657 Signed By: 07/26/241658 [facility] Work Phone: Study report [facility] [address] [place] [id number] XRay Report Signed Patient: Teresa Lyle MR#: [id number] : 1960 Acct:[id number] Age/Sex: 64 / F ADM Date: 5 Loc: [facility] Room: Type: [facility] Attending Dr: Roger Robbins DO Copies to: Roger Robbins DO~ Ordering Provider: Roger Robbins DO Date of Service: 07/26/24 XR/XR pelvis 1-2V: S72.141D - Displaced intertrochanteric fracture of right ... XR pelvis 1-2V 07/26/2024 2:52 PM SIGNS AND SYMPTOMS: ^S72.141D - Displaced intertrochanteric fracture of right ... PROTOCOL: Frontal radiograph of the pelvis COMPARISON: 07/10/2024 FINDINGS: There is intramedullary rosina fixation of an intertrochanteric fracture of the right hip similar prior exam. There is mild narrowing of the joint spaces of the hips. Vascular calcifications are present in the pelvis. XR/XR pelvis 1-2V IMPRESSION: No acute bony injury. Status post hardware fixation of an intertrochanteric fracture of the right hip without significant interval change. Impression dictated by: Gerardo Cardenas M.D. 07/26/2024 5:00 PM Dictation Location: RADIO-PC-23 Transcribed By: CHRISTIN 07/26/241699 Dictated By: Gerardo Cardenas II, MD 07/26/241658 Signed By: 07/26/241699 [facility] Work Phone: XR femur RT 2V*on 07-26-2024 XR femur RT 2V* [facility] [address] [place] [address] XRay Report Signed Patient: Teresa Lyle MR#: [id number] : 1960 Acct:[id number] Age/Sex: 64 / F ADM Date: 07/26/24 Loc: [facility] Room: Type: REG CLI Attending Dr: Roger Robbins DO Copies to: Roger Robbins DO Ordering Provider: Roger Robbins DO Date of Service: 07/26/24 XR/XR femur RT 2V*: S72.141D - Displaced intertrochanteric fracture of right ... XR femur RT 2V* 07/26/2024 2:52 PM SIGNS AND SYMPTOMS: Follow-up hardware fixation of right femur PROTOCOL: Frontal and lateral radiographs of the right femur COMPARISON: 07/10/2024 FINDINGS: There is hardware fixation of the right femur is redemonstration of an intertrochanteric fracture of the right hip. There is no hardware complication or change in alignment. Vascular calcifications are present in the soft tissues. XR/XR femur RT 2V* IMPRESSION: Status post hardware fixation of an intertrochanteric fracture of the right hip without hardware complication or malalignment. Impression dictated by: Gerardo Cardenas M.D. 07/26/2024 4:59 PM Dictation Location: [place] [address] Transcribed By: [facility] 07/26/241658 Dictated By: Gerardo Cardenas II, MD 07/26/24 165 Signed By: 07/26/24 1659 Normal [facility] XR pelvis 1-2Von 07-26-2024 XR pelvis 1-2V [facility] [address] [place] [address] XRay Report Signed Patient: Teresa Lyle MR#: [id number] : 1960 Acct:[id number] Age/Sex: 64 / F ADM Date: 07/26/24 Loc: [facility] Room: Type: REG CLI Attending Dr: Roger Robbins DO Copies to: Roger Robbins DO Ordering Provider: Roger Robbins DO Date of Service: 07/26/24 XR/XR pelvis 1-2V: S72.141D - Displaced intertrochanteric fracture of right ... XR pelvis 1-2V 07/26/2024 2:52 PM SIGNS AND SYMPTOMS: S72.141D - Displaced intertrochanteric fracture of right ... PROTOCOL: Frontal radiograph of the pelvis COMPARISON: 07/10/2024 FINDINGS: There is intramedullary rosina fixation of an intertrochanteric fracture of the right hip similar prior exam. There is mild narrowing of the joint spaces of the hips. Vascular calcifications are present in the pelvis. XR/XR pelvis 1-2V IMPRESSION: No acute bony injury. Status post hardware fixation of an intertrochanteric fracture of the right hip without significant interval change. Impression dictated by: Gerardo Cardenas M.D. 07/26/2024 5:00 PM Dictation Location: [place] [address] Transcribed By: [facility] 07/26/24 1700 Dictated By: Gerardo Cardenas II, MD 07/26/24 1659 Signed By: 07/26/24 1700 Normal [facility] Anisocytosis LM Ql (Bld)Orde red By: Jordan Thomson on 07-14-2024 Anisocytosis Ql (Bld) Anisocytosis [Pres ence] in Blood by Light microscopy [facility] Anisocytosis [Presence] in B lood by Light microscopyOrdered By: Jordan Thomson on 07-14-2024 Anisocytosis Ql (Bld) Marked Normal [facility] Comment on above: Performed By: #### C RP, TSH3, ESR, BMP, BHOB, LIPASE, HEPATIC, SCAN CBC, PT #### [facility] [address] Basophils Auto (Bld) [#/Vol] Ordered By: Jordan Thomson on 07-14-2024 Basophils (Bld) [#/Vol] Automated basophil count 0.0-0.2 [facility] Basophils [#/volume] in Bloo d by Automated countOrdered By: Jordan Thomson on 07-14-2024 Basophils (Bld) [#/Vol] 0.1 10*3/uL Normal 0.0-0.2 [facility] Comment on above: Performed By: #### C RP, TSH3, ESR, BMP, BHOB, LIPASE, HEPATIC, SCAN CBC, PT #### [facility] [address] [place] [address] [place] Basophils/100 WBC Auto (Bld) Ordered By: Jordan Bunting on 07-14-2024 Basophils/100 WBC (Bld) Automated basophil % . [facility] Basophils/100 leukocytes in Blood by Automated countOrdered By: Jordan Bunting on 07-14-2024 Basophils/100 WBC (Bld) 1.6 % Normal . [facility] Comment on above: Performed By: #### C RP, TSH3, ESR, BMP, BHOB, LIPASE, HEPATIC, SCAN CBC, PT #### [place] [address] [place] Eosinophils Auto (Bld) [#/Vo l]Ordered By: Jordan Bunting on 07-14-2024 Eosinophils (Bld) [#/Vol] Automated eosinophil count 0.0-0.45 [facility] Eosinophils [#/volume] in Bl ood by Automated countOrdered By: Jordan Bunting on 07-14-2024 Eosinophils (Bld) [#/Vol] 0.1 10*3/uL Normal 0.0-0.45 [facility] Comment on above: Performed By: #### C RP, TSH3, ESR, BMP, BHOB, LIPASE, HEPATIC, SCAN CBC, PT #### [facility] [address] [place] [address] [place] Eosinophils/100 WBC Auto (Bl d)Ordered By: Jordan Bunting on 07-14-2024 Eosinophils/100 WBC (Bld) Automated eosinophil % . [facility] Eosinophils/100 leukocytes i n Blood by Automated countOrdered By: Jordan Bunting on 07-14-2024 Eosinophils/100 WBC (Bld) 3.9 % Normal . [facility] Comment on above: Performed By: #### C RP, TSH3, ESR, BMP, BHOB, LIPASE, HEPATIC, SCAN CBC, PT #### [facility] [address] Erythrocyte distribution wid th Auto (RBC) [Ratio]Ordered By: Jordan Bunting on 07-14-2024 Erythrocyte distribution width (RBC) [Ratio] Erythrocyte distribution width [Ratio] by Automated count High 11.9-15.3 [facility] Erythrocyte distribution wid th [Ratio] by Automated countOrdered By: Jordan Bunting on 07-14-2024 Erythrocyte distribution width (RBC) [Ratio] 30.2 % High 11.9-15.3 [facility] Comment on above: Performed By: #### C RP, TSH3, ESR, BMP, BHOB, LIPASE, HEPATIC, SCAN CBC, PT #### [address] Erythrocyte morphology findi ng [Identifier] in BloodOrdered By: Jordan Bunting on 07-14-2024 RBC morphology finding Nom (Bld) RBC morphology [facility] RBC morphology finding Nom (Bld) N/A [facility] Erythrocytes [#/volume] in B lood by Automated countOrdered By: Jordan Bunting on 07-14-2024 RBC (Bld) [#/Vol] 3.99 10*6/uL Normal 3.60-5.00 [facility] Comment on above: Performed By: #### C RP, TSH3, ESR, BMP, BHOB, LIPASE, HEPATIC, SCAN CBC, PT #### [address] Hematocrit Auto (Bld) [Volum e fraction]Ordered By: Jordan Bunting on 07-14-2024 Hematocrit (Bld) [Volume fraction] Hematocrit [Volume Fraction] of Blood by Automated count Low 34.0-46.4 [facility] Hematocrit [Volume Fraction] of Blood by Automated countOrdered By: Jordan Bunting on 07-14-2024 Hematocrit (Bld) [Volume fraction] 32.9 % Low 34.0-46.4 [facility] Comment on above: Performed By: #### C RP, TSH3, ESR, BMP, BHOB, LIPASE, HEPATIC, SCAN CBC, PT #### [place] [address] [place] Hemoglobin [Mass/volume] in BloodOrdered By: Jordan Bunting on 07-14-2024 Hemoglobin (Bld) [Mass/Vol] Hemoglobin [Mass/volume] in Blood Low 11.8-15.4 [facility] Hemoglobin (Bld) [Mass/Vol] 10.6 g/dL Low 11.8-15.4 [facility] Comment on above: Performed By: #### C RP, TSH3, ESR, BMP, BHOB, LIPASE, HEPATIC, SCAN CBC, PT #### [facility] [address] Hypochromia LM Ql (Bld)Order ed By: Jordan Bunting on 07-14-2024 Hypochromia Ql (Bld) Hypochromia [Presen ce] in Blood by Light microscopy [facility] Hypochromia Ql (Bld) Moderate [facility] Leukocytes [#/volume] correc lyly for nucleated erythrocytes in Blood by Automated counOrdered By: Jordan Bunting on 07-14-2024 WBC corrected for nucl RBC Auto (Bld) [#/Vol] Leukocytes [#/volume] corrected for nucleated erythrocytes in Blood by Automated coun Low 3.8-11.6 [facility] WBC corrected for nucl RBC Auto (Bld) [#/Vol] 3.7 10*3/uL Low 3.8-11.6 [facility] Leukocytes [#/volume] in Blo od by Automated countOrdered By: Jordan Thomson on 07-14-2024 WBC (Bld) [#/Vol] 3.7 10*3/uL Low 3.8-11.6 [facility] Comment on above: Performed By: #### C RP, TSH3, ESR, BMP, BHOB, LIPASE, HEPATIC, SCAN CBC, PT #### [facility] [address] Lymphocytes Auto (Bld) [#/Vo l]Ordered By: Jordan Bunting on 07-14-2024 Lymphocytes (Bld) [#/Vol] Lymphocytes [#/volume] in Blood by Automated count Low 1.00-4.8 [facility] Lymphocytes [#/volume] in Bl ood by Automated countOrdered By: Jordan Bunting on 07-14-2024 Lymphocytes (Bld) [#/Vol] 0.8 10*3/uL Low 1.00-4.8 [facility] Comment on above: Performed By: #### C RP, TSH3, ESR, BMP, BHOB, LIPASE, HEPATIC, SCAN CBC, PT #### [facility] [address] Lymphocytes/100 WBC Auto (Bl d)Ordered By: Jordan Bunting on 07-14-2024 Lymphocytes/100 WBC (Bld) Lymphocytes/100 leukocytes in Blood by Automated count . [facility] Lymphocytes/100 leukocytes i n Blood by Automated countOrdered By: Jordan Bunting on 07-14-2024 Lymphocytes/100 WBC (Bld) 22.1 % Normal . [facility] Comment on above: Performed By: #### C RP, TSH3, ESR, BMP, BHOB, LIPASE, HEPATIC, SCAN CBC, PT #### [facility] [address] MCH Auto (RBC) [Entitic mass ]Ordered By: Jordan Bunting on 07-14-2024 MCH (RBC) [Entitic mass] MCH [Entitic mass] by Automated count 24.7-34.3 [facility] MCH [Entitic mass] by Automa lyly countOrdered By: Jordan Bunting on 07-14-2024 MCH (RBC) [Entitic mass] 26.6 pg Normal 24.7-34.3 [facility] Comment on above: Performed By: #### C RP, TSH3, ESR, BMP, BHOB, LIPASE, HEPATIC, SCAN CBC, PT #### [facility] [address] MCHC Auto (RBC) [Mass/Vol]Or dered By: Jordan Bunting on 07-14-2024 MCHC (RBC) [Mass/Vol] MCHC [Mass/volume] by Automated count 32.0-35.0 [facility] MCHC (RBC) [Mass/Vol] 32.2 g/dL 32.0-35.0 [facility] MCV Auto (RBC) [Entitic vol] Ordered By: Jordan Bunting on 07-14-2024 MCV (RBC) [Entitic vol] MCV [Entitic volume] by Automated count 80-100 [facility] MCV [Entitic volume] by Auto mated countOrdered By: Jordan Bunting on 07-14-2024 MCV (RBC) [Entitic vol] 82.6 fL Normal 80-100 [facility] Comment on above: Performed By: #### C RP, TSH3, ESR, BMP, BHOB, LIPASE, HEPATIC, SCAN CBC, PT #### [facility] [address] [place] [address] [place] Microcytes LM Ql (Bld)Ordere d By: Jordan Bunting on 07-14-2024 Microcytes Ql (Bld) Microcytes [Presence ] in Blood by Light microscopy [facility] Microcytes Ql (Bld) Slight [facility] Monocytes Auto (Bld) [#/Vol] Ordered By: Jordan Bunting on 07-14-2024 Monocytes (Bld) [#/Vol] Automated blood monocyte count 0.0-0.8 [facility] Monocytes [#/volume] in Bloo d by Automated countOrdered By: Jordan Bunting on 07-14-2024 Monocytes (Bld) [#/Vol] 0.4 10*3/uL Normal 0.0-0.8 [facility] Comment on above: Performed By: #### C RP, TSH3, ESR, BMP, BHOB, LIPASE, HEPATIC, SCAN CBC, PT #### [facility] [address] [place] [address] [place] Monocytes/100 WBC Auto (Bld) Ordered By: Jordan Bunting on 07-14-2024 Monocytes/100 WBC (Bld) Automated monocyte % . [facility] Monocytes/100 leukocytes in Blood by Automated countOrdered By: Jordan Bunting on 07-14-2024 Monocytes/100 WBC (Bld) 11.9 % Normal . [facility] Comment on above: Performed By: #### C RP, TSH3, ESR, BMP, BHOB, LIPASE, HEPATIC, SCAN CBC, PT #### [facility] [address] Neutrophils Auto (Bld) [#/Vo l]Ordered By: Jordan Bunting on 07-14-2024 Neutrophils (Bld) [#/Vol] Neutrophils [#/volume] in Blood by Automated count 1.8-7.7 [facility] Neutrophils [#/volume] in Bl ood by Automated countOrdered By: Jordan Bunting on 07-14-2024 Neutrophils (Bld) [#/Vol] 2.2 10*3/uL Normal 1.8-7.7 [facility] Comment on above: Performed By: #### C RP, TSH3, ESR, BMP, BHOB, LIPASE, HEPATIC, SCAN CBC, PT #### [facility] [address] Neutrophils/100 WBC Auto (Bl d)Ordered By: Jordan Bunting on 07-14-2024 Neutrophils/100 WBC (Bld) Automated neutrophil % . [facility] Neutrophils/100 leukocytes i n Blood by Automated countOrdered By: Jordan Bunting on 07-14-2024 Neutrophils/100 WBC (Bld) 60.5 % Normal . [facility] Comment on above: Performed By: #### C RP, TSH3, ESR, BMP, BHOB, LIPASE, HEPATIC, SCAN CBC, PT #### [facility] [address] Nucleated erythrocytes [Pres ence] in Blood by Automated countOrdered By: Jordan Bunting on 07-14-2024 Nucleated RBC Auto Ql (Bld) Nucleated erythrocytes [Presence] in Blood by Automated count 0-0.5 [facility] Nucleated RBC Auto Ql (Bld) 0.3 /100{WBC} 0-0.5 [facility] Platelet adequacy [Presence] in Blood by Light microscopyOrdered By: Jordan Bunting on 07-14-2024 Platelets LM Ql (Bld) Platelet adequacy [Presence] in Blood by Light microscopy Normal [facility] Platelets LM Ql (Bld) Decreased Normal [facility] Platelet mean volume Auto (B ld) [Entitic vol]Ordered By: Jordan Bunting on 07-14-2024 Platelet mean volume (Bld) [Entitic vol] Platelet mean volume [Entitic volume] in Blood by Automated count 6.3-10.7 [facility] Platelet mean volume [Entiti c volume] in Blood by Automated countOrdered By: Jordan Bunting on 07-14-2024 Platelet mean volume (Bld) [Entitic vol] 8.4 fL Normal 6.3-10.7 [facility] Comment on above: Performed By: #### C RP, TSH3, ESR, BMP, BHOB, LIPASE, HEPATIC, SCAN CBC, PT #### [facility] [address] Platelet morphology finding [Identifier] in BloodOrdered By: Jordan Bunting on 07-14-2024 Platelet morphology finding Nom (Bld) Platelet morphology finding [Identifier] in Blood Normal [facility] Platelet morphology finding Nom (Bld) Normal Normal [facility] Platelets Auto (Bld) [#/Vol] Ordered By: Jordan Bunting on 07-14-2024 Platelets (Bld) [#/Vol] Platelets [#/volume] in Blood by Automated count Low 150-450 [facility] Platelets [#/volume] in Bloo d by Automated countOrdered By: Jordan Bunting on 07-14-2024 Platelets (Bld) [#/Vol] 81 10*3/uL Low 150-450 [facility] Comment on above: Performed By: #### C RP, TSH3, ESR, BMP, BHOB, LIPASE, HEPATIC, SCAN CBC, PT #### [facility] [address] Polychromasia [Presence] in Blood by Light microscopyOrdered By: Jordan Bunting on 07-14-2024 Polychromasia LM Ql (Bld) Polychromasia [Presence] in Blood by Light microscopy [facility] Polychromasia LM Ql (Bld) Slight [facility] RBC Auto (Bld) [#/Vol]Ordere d By: Jordan Bunting on 07-14-2024 RBC (Bld) [#/Vol] Erythrocytes [#/volu me] in Blood by Automated count 3.60-5.00 [facility] Scan and CBCon 07-14-2024 Hypochromasia Moderate Normal [facility] Comment on above: Performed By: #### C RP, TSH3, ESR, BMP, BHOB, LIPASE, HEPATIC, SCAN CBC, PT #### [address] Mean Corpuscular HGB Conc 32.2 g/dL Normal 32.0-35.0 [facility] Comment on above: Performed By: #### C RP, TSH3, ESR, BMP, BHOB, LIPASE, HEPATIC, SCAN CBC, PT #### [address] Microcytosis Slight Normal [facility] Comment on above: Performed By: #### C RP, TSH3, ESR, BMP, BHOB, LIPASE, HEPATIC, SCAN CBC, PT #### [address] NRBC% 0.3 /100{WBC} Normal 0-0.5 [facility] Comment on above: Performed By: #### C RP, TSH3, ESR, BMP, BHOB, LIPASE, HEPATIC, SCAN CBC, PT #### [address] Platelet Estimate Decreased Normal Normal [facility] Comment on above: Performed By: #### C RP, TSH3, ESR, BMP, BHOB, LIPASE, HEPATIC, SCAN CBC, PT #### [address] Platelet Morphology Normal Normal Normal [facility] Comment on above: Result Comment: PERF ORMED BY: [place] [address] PATHOLOGIST BUILDING ENGINEER ADALBERTO MARTEL M.D. Performed By: #### C RP, TSH3, ESR, BMP, BHOB, LIPASE, HEPATIC, SCAN CBC, PT #### [address] Polychromasia Slight Normal [facility] Comment on above: Performed By: #### C RP, TSH3, ESR, BMP, BHOB, LIPASE, HEPATIC, SCAN CBC, PT #### [facility] [address] [place] [id number] [facility] Stomatocytes Slight Normal [facility] Comment on above: Performed By: #### C RP, TSH3, ESR, BMP, BHOB, LIPASE, HEPATIC, SCAN CBC, PT #### [facility] [address] [place] [id number] [place] Stomatocytes [Presence] in B lood by Light microscopyOrdered By: Jordan Thomson on 07-14-2024 Stomatocytes LM Ql (Bld) Red blood cell stomatocyte detection [facility] Stomatocytes LM Ql (Bld) Slight [facility] WBC Auto (Bld) [#/Vol]Ordere d By: Jordan Thomson on 07-14-2024 WBC (Bld) [#/Vol] Leukocytes [#/volume ] in Blood by Automated count Low 3.8-11.6 [facility] X-ray reportOrdered By: Gerardo Cardenas on 07-10-2024 Study report [facility] [place] [address] [place], [place] [id number] XRay Report Signed Patient: Teresa Lyle MR#: [id number] : 1960 Acct:[id number] Age/Sex: 64 / F ADM Date: Loc: ER Room: Type: [facility] ER Attending Dr: Copies to: Darion Goss DO~ Ordering Provider: Darion Goss DO Date of Service: 07/10/24 XR/XR pelvis 1-2V: . XR pelvis 1-2V 07/10/2024 12:51 PM SIGNS AND SYMPTOMS: Fall, recent right hip fracture PROTOCOL: Frontal radiograph of the pelvis COMPARISON: 07/02/2024 FINDINGS: There is hardware fixation of a previous intertrochanteric fracture of the righthip. No hardware complication or malalignment. There is mild narrowing of the joint spaces of the hips. The bony ring of the pelvis is intact. XR/XR pelvis 1-2V IMPRESSION: There is hardware fixation of a previous intertrochanteric fracture of the righthip. No hardware complication or malalignment. Impression dictated by: Gerardo Cardenas M.D. 07/10/2024 1:00 PM Dictation Location: RADIO-PC-24 Transcribed By: CHRISTIN 07/10/24 1300 Dictated By: Gerardo Cadrenas II, MD 07/10/241258 Signed By: 07/10/24 1300 [facility] Work Phone: Study report [place] [address] XRay Report Signed Patient: Teresa Lyle MR#: [id number] : 1960 Acct:[id number] Age/Sex: 64 / F ADM Date: 5 Loc: ER Room: Type: [facility] ER Attending Dr: Copies to: Darion Goss DO~ Ordering Provider: Darion Goss DO Date of Service: 07/10/24 XR/XR femur RT 2V*: Fall XR femur RT 2V* 07/10/2024 12:17 PM SIGNS AND SYMPTOMS: Fall, right hip and leg pain, recent right hip fracture PROTOCOL: Frontal and lateral radiographs of the right femur COMPARISON: 07/02/2024 FINDINGS: There is evidence of previous intramedullary rosina fixation of a fracture of the right femur with mild subluxation of the lesser trochanter similar to the prior exam. Skin donita overlie the lateral aspect of the right hip with improvementin subcutaneous emphysema. The visualized right hemipelvis is grossly intact. Vascular calcifications are present in the soft tissues. XR/XR femur RT 2V* IMPRESSION: There is evidence of previous intramedullary rosina fixation of a fracture of the right femur with mild subluxation of the lesser trochanter similar to the prior exam. No significant interval change. Impression dictated by: Gerardo Cardenas M.D. 07/10/2024 12:59 PM Dictation Location: RADIO-PC-24 Transcribed By: CHRISTIN 07/10/24 1259 Dictated By: Gerardo Cardenas II, MD 07/10/24 1250 Signed By: 07/10/241258 [facility] Work Phone: XR femur RT 2V*on 07-10-2024 XR femur RT 2V* [facility] [address] [address] XRay Report Signed Patient: Teresa Lyle MR#: [id number] : 1960 Acct:[id number] Age/Sex: 64 / F ADM Date: 07/10/24 Loc: ER Room: Type: [facility] ER Attending Dr: Copies to: Darion Goss DO Ordering Provider: Darion Goss DO Date of Service: 07/10/24 XR/XR femur RT 2V*: Fall XR femur RT 2V* 07/10/2024 12:17 PM SIGNS AND SYMPTOMS: Fall, right hip and leg pain, recent right hip fracture PROTOCOL: Frontal and lateral radiographs of the right femur COMPARISON: 07/02/2024 FINDINGS: There is evidence of previous intramedullary rosina fixation of a fracture of the right femur with mild subluxation of the lesser trochanter similar to the prior exam. Skin donita overlie the lateral aspect of the right hip with improvement in subcutaneous emphysema. The visualized right hemipelvis is grossly intact. Vascular calcifications are present in the soft tissues. XR/XR femur RT 2V* IMPRESSION: There is evidence of previous intramedullary rosina fixation of a fracture of the right femur with mild subluxation of the lesser trochanter similar to the prior exam. No significant interval change. Impression dictated by: Gerardo Cardenas M.D. 07/10/2024 12:59 PM Dictation Location: [place] [address] Transcribed By: [facility] 07/10/24 1259 Dictated By: Gerardo Cardenas II, MD 07/10/24 1258 Signed By: 07/10/24 1259 Normal [facility] XR pelvis 1-2Von 07-10-2024 XR pelvis 1-2V [facility] Main [address] [address] XRay Report Signed Patient: Teresa Lyle MR#: [id number] : 1960 Acct:[id number] Age/Sex: 64 / F ADM Date: 07/10/24 Loc: ER Room: Type: [facility] ER Attending Dr: Copies to: Darion Goss DO Ordering Provider: Darion Goss DO Date of Service: 07/10/24 XR/XR pelvis 1-2V: . XR pelvis 1-2V 07/10/2024 12:51 PM SIGNS AND SYMPTOMS: Fall, recent right hip fracture PROTOCOL: Frontal radiograph of the pelvis COMPARISON: 07/02/2024 FINDINGS: There is hardware fixation of a previous intertrochanteric fracture of the right hip. No hardware complication or malalignment. There is mild narrowing of the joint spaces of the hips. The bony ring of the pelvis is intact. XR/XR pelvis 1-2V IMPRESSION: There is hardware fixation of a previous intertrochanteric fracture of the right hip. No hardware complication or malalignment. Impression dictated by: Gerardo Cardenas M.D. 07/10/2024 1:00 PM Dictation Location: [place] [address] Transcribed By: [facility] 07/10/24 1300 Dictated By: Gerardo Cardenas II, MD 07/10/24 1259 Signed By: 07/10/24 1300 Normal [facility] Basic Metabolic Panelon 06-29 Creatinine Clr Calc Pharmacy 115.42 Normal [facility] Comment on above: Result Comment: PERF ORMED BY: [place] [address] PATHOLOGIST BUILDING ENGINEER ADALBERTO MARTEL M.D. Performed By: #### C RP, TSH3, ESR, BMP, BHOB, LIPASE, HEPATIC, SCAN CBC, PT #### [facility] [address] [place] [address] [place] GFR/1.73 sq M.predicted MDRD (S/P/Bld) [Vol rate/Area] mL/min/{1.73_m2} Normal [facility] Comment on above: Performed By: #### C RP, TSH3, ESR, BMP, BHOB, LIPASE, HEPATIC, SCAN CBC, PT #### [facility] [address] [place] [address] [place] Calcium [Mass/volume] in Ser um or PlasmaOrdered By: Sylvia Centeno on 07-08-2024 Calcium [Mass/Vol] Calcium [Mass/volume ] in Serum or Plasma Low 8.6-10.3 [facility] Calcium [Mass/Vol] 7.7 mg/dL Low 8.6-10.3 [facility] Comment on above: Performed By: #### C RP, TSH3, ESR, BMP, BHOB, LIPASE, HEPATIC, SCAN CBC, PT #### [facility] [address] Capillary blood glucose elis urement by glucometer (mass/volume)Ordered By: Forest Quiroz on 07-08-2024 Glucose [Mass/Vol] 193 mg/dL Normal [facility] Comment on above: Random Glucose Refer ence Range is dependent on time and content of last meal. Glucose of more than 200 mg/dL in a nonstressed, ambulatory subject supports the diagnosis of Diabetes Mellitus. Result Comment: [place] [facility] Glucose Reference Range is dependent on time and content of last meal. Glucose of more than 200 mg/dL in a nonstressed, ambulatory subject supports the diagnosis of Diabetes Mellitus. Performed By: #### C RP, TSH3, ESR, BMP, BHOB, LIPASE, HEPATIC, SCAN CBC, PT #### [facility] [address] [place] [address] [place] Carbon dioxide, total [Moles /volume] in Serum or PlasmaOrdered By: Sylvia Centeno on 07-08-2024 CO2 [Moles/Vol] Carbon dioxide, tota l [Moles/volume] in Serum or Plasma 21.0-31.0 [facility] CO2 [Moles/Vol] 24.7 mmol/L Normal 21.0-31.0 [facility] Comment on above: Performed By: #### C RP, TSH3, ESR, BMP, BHOB, LIPASE, HEPATIC, SCAN CBC, PT #### [facility] [address] Chloride [Moles/volume] in S michael or PlasmaOrdered By: Sylvia Centeno on 07-08-2024 Chloride [Moles/Vol] Chloride [Moles/vol ume] in Serum or Plasma 98-107 [facility] Chloride [Moles/Vol] 102 mmol/L Normal 98-107 [facility] Comment on above: Performed By: #### C RP, TSH3, ESR, BMP, BHOB, LIPASE, HEPATIC, SCAN CBC, PT #### [facility] [address] Creatinine [Mass/volume] in Serum or PlasmaOrdered By: Sylvia Centeno on 07-08-2024 Creatinine [Mass/Vol] Creatinine [Mass/v olume] in Serum or Plasma Low 0.60-1.20 [facility] Creatinine [Mass/Vol] 0.46 mg/dL Low 0.60-1.20 [facility] Comment on above: Performed By: #### C RP, TSH3, ESR, BMP, BHOB, LIPASE, HEPATIC, SCAN CBC, PT #### [facility] [address] Glucose Glucometer (BldC) [M ass/Vol]Ordered By: Forest Quiroz on 07-08-2024 Glucose [Mass/Vol] Capillary blood gluc ose measurement by glucometer (mass/volume) [facility] Comment on above: Random Glucose Refer ence Range is dependent on time and content of last meal. Glucose of more than 200 mg/dL in a nonstressed, ambulatory subject supports the diagnosis of Diabetes Mellitus. Glucose Poct Glucometerson 0 07-08-2024 Commemt1 Glu2: Cleaned Meter Normal [facility] Comment on above: Result Comment: PERF ORMED BY: [place] [address] PATHOLOGIST BUILDING ENGINEER ADALBERTO MARTEL M.D. Performed By: #### C RP, TSH3, ESR, BMP, BHOB, LIPASE, HEPATIC, SCAN CBC, PT #### [facility] [address] [id number] [facility] Commemt1 Glu2: Cleaned Meter Normal [facility] Comment on above: Result Comment: PERF ORMED BY: [place] [address] PATHOLOGIST BUILDING ENGINEER ADALBERTO MARTEL M.D. Performed By: #### C RP, TSH3, ESR, BMP, BHOB, LIPASE, HEPATIC, SCAN CBC, PT #### [facility] [address] [id number] [facility] Glucose [Mass/Vol] 177 mg/dL Normal [facility] Comment on above: Result Comment: [facility] Glucose Reference Range is dependent on time and content of last meal. Glucose of more than 200 mg/dL in a nonstressed, ambulatory subject supports the diagnosis of Diabetes Mellitus. Performed By: #### C RP, TSH3, ESR, BMP, BHOB, LIPASE, HEPATIC, SCAN CBC, PT #### [facility] [address] [place] [address] [place] Glucose [Mass/volume] in Ser um or PlasmaOrdered By: Sylvia Centeno on 07-08-2024 Glucose [Mass/Vol] Glucose [Mass/volume ] in Serum or Plasma 70-100 [facility] Comment on above: ADA recommended refe rence rangeRandom Glucose Reference Range is dependent on time and content of last meal. Glucose of more than 200 mg/dL in a nonstressed, ambulatory subject supports the diagnosis of Diabetes Mellitus. Glucose [Mass/Vol] 90 mg/dL Normal 70-100 [facility] Comment on above: ADA recommended refe rence rangeRandom Glucose Reference Range is dependent on time and content of last meal. Glucose of more than 200 mg/dL in a nonstressed, ambulatory subject supports the diagnosis of Diabetes Mellitus. Result Comment: [place] [facility] Glucose Reference Range is dependent on time and content of last meal. Glucose of more than 200 mg/dL in a nonstressed, ambulatory subject supports the diagnosis of Diabetes Mellitus. ADA recommended reference range Performed By: #### C RP, TSH3, ESR, BMP, BHOB, LIPASE, HEPATIC, SCAN CBC, PT #### [facility] [address] [id number] [facility] No Panel InformationOrdered By: Forest Quiroz on 07-08-2024 Bedside Glucose Comment Glu2: cleaned meter [facility] No Panel InformationOrdered By: Sylvia Centeno on 07-08-2024 Estimated GFR (CKD-EPI) > 60.0 mL/Min [facility] Creatinine Clearance (Chem 115.42 [facility] Potassium [Moles/volume] in Serum or PlasmaOrdered By: Sylvia Centeno on 07-08-2024 Potassium [Moles/Vol] Potassium [Moles/v olume] in Serum or Plasma 3.5-5.1 [facility] Potassium [Moles/Vol] 4.4 mmol/L Normal 3.5-5.1 [facility] Comment on above: Performed By: #### C RP, TSH3, ESR, BMP, BHOB, LIPASE, HEPATIC, SCAN CBC, PT #### [facility] [address] Serum or plasma anion gap de terminationOrdered By: Sylvia Centeno on 07-08-2024 Anion gap [Moles/Vol] Serum or plasma an ion gap determination 6.0-15.0 [facility] Anion gap [Moles/Vol] 8.7 mmol/L Normal 6.0-15.0 [facility] Comment on above: Performed By: #### C RP, TSH3, ESR, BMP, BHOB, LIPASE, HEPATIC, SCAN CBC, PT #### [facility] [address] Sodium [Moles/volume] in Ser um or PlasmaOrdered By: Sylvia Centeno on 07-08-2024 Sodium [Moles/Vol] Sodium [Moles/volume ] in Serum or Plasma Significant change up 136-145 [facility] Comment on above: Delta: 125 on Sodium [Moles/Vol] 131 mmol/L Significant change down 136-145 [facility] Comment on above: [place]: 125 on Performed By: #### C RP, TSH3, ESR, BMP, BHOB, LIPASE, HEPATIC, SCAN CBC, PT #### [facility] [address] Urea nitrogen [Mass/volume] in Serum or PlasmaOrdered By: Sylvia Centeno on 07-08-2024 Urea nitrogen [Mass/Vol] Urea nitrogen [Mass/volume] in Serum or Plasma 09-22 [facility] Urea nitrogen [Mass/Vol] 10 mg/dL Normal 09-22 [facility] Comment on above: Performed By: #### C RP, TSH3, ESR, BMP, BHOB, LIPASE, HEPATIC, SCAN CBC, PT #### [facility] [address] Basic Metabolic Panelon Anion gap [Moles/Vol] 8.8 mmol/L Normal 6.0-15.0 [facility] Comment on above: Performed By: #### B MP ####[place] [id number] [address] Calcium [Mass/Vol] 7.4 mg/dL Low 8.6-10.3 [facility] Comment on above: Performed By: #### B MP ####[place] [address] [address] Chloride [Moles/Vol] 97 mmol/L Low 98-107 [facility] Comment on above: Performed By: #### B MP ####[address] CO2 [Moles/Vol] 23.7 mmol/L Normal 21.0-31.0 [facility] Comment on above: Performed By: #### B MP ####[address] Creatinine [Mass/Vol] 0.48 mg/dL Low 0.60-1.20 [facility] Comment on above: Performed By: #### B MP ####[place] [phone] [facility] Creatinine Clr Calc Pharmacy 107.55 Normal [facility] Comment on above: Result Comment: PERF ORMED BY: [address] [place] [id number] PATHOLOGIST BUILDING ENGINEER ADALBERTO MARTEL M.D. Performed By: #### B MP ####[address] [address] [facility] GFR/1.73 sq M.predicted MDRD (S/P/Bld) [Vol rate/Area] mL/min/{1.73_m2} Normal [facility] Comment on above: Performed By: #### B MP ####[address] Glucose [Mass/Vol] 153 mg/dL High 70-100 [facility] Comment on above: Result Comment: [facility] Glucose Reference Range is dependent on time and content of last meal. Glucose of more than 200 mg/dL in a nonstressed, ambulatory subject supports the diagnosis of Diabetes Mellitus. ADA recommended reference range Performed By: #### B MP ####[address] Potassium [Moles/Vol] 4.5 mmol/L Normal 3.5-5.1 [facility] Comment on above: Performed By: #### B MP ####[address] Sodium [Moles/Vol] 125 mmol/L Low 136-145 [facility] Comment on above: Performed By: #### B MP ####[address] Urea nitrogen [Mass/Vol] 11 mg/dL Normal 7-25 [facility] Comment on above: Performed By: #### B MP ####[place] [address] [place] Basophils Auto (Bld) [#/Vol] Ordered By: Sylvia Centeno on 07-07-2024 Basophils (Bld) [#/Vol] Automated basophil count 0.0-0.2 [facility] Basophils [#/volume] in Bloo d by Automated countOrdered By: Sylvia Centeno on 07-07-2024 Basophils (Bld) [#/Vol] 0.1 10*3/uL Normal 0.0-0.2 [facility] Comment on above: Result Comment: PERF ORMED BY: [facility] [address] [place] [address] PATHOLOGIST BUILDING ENGINEER ADALBERTO MARTEL M.D. Performed By: #### C BC ####[address] Basophils/100 WBC Auto (Bld) Ordered By: Sylvia Centeno on 07-07-2024 Basophils/100 WBC (Bld) Automated basophil % . [facility] Basophils/100 leukocytes in Blood by Automated countOrdered By: Sylvia Jackson on 07-07-2024 Basophils/100 WBC (Bld) 0.8 % Normal . [facility] Comment on above: Performed By: #### C BC ####[address] Complete Blood Count Auto Di ffon 07-07-2024 Mean Corpuscular HGB Conc 32.4 g/dL Normal 32.0-35.0 [facility] Comment on above: Performed By: #### C BC ####[address] NRBC% 0.2 /100{WBC} Normal 0-0.5 [facility] Comment on above: Performed By: #### C BC ####[address] Eosinophils Auto (Bld) [#/Vo l]Ordered By: Sylvia Centeno on 07-07-2024 Eosinophils (Bld) [#/Vol] Automated eosinophil count 0.0-0.45 [facility] Eosinophils [#/volume] in Bl ood by Automated countOrdered By: Sylvia Jackson on 07-07-2024 Eosinophils (Bld) [#/Vol] 0.1 10*3/uL Normal 0.0-0.45 [facility] Comment on above: Performed By: #### C BC ####[address] Eosinophils/100 WBC Auto (Bl d)Ordered By: Sylvia Centeno on 07-07-2024 Eosinophils/100 WBC (Bld) Automated eosinophil % . [facility] Eosinophils/100 leukocytes i n Blood by Automated countOrdered By: Sylviawily GoldsmithRonelManuel on 07-07-2024 Eosinophils/100 WBC (Bld) 1.4 % Normal . [facility] Comment on above: Performed By: #### C BC ####[place] [address] [place] [address] [facility] Erythrocyte distribution wid th Auto (RBC) [Ratio]Ordered By: Sylvia GoldsmithRonel Manuel on 07-07-2024 Erythrocyte distribution width (RBC) [Ratio] Erythrocyte distribution width [Ratio] by Automated count High 11.9-15.3 [facility] Erythrocyte distribution wid th [Ratio] by Automated countOrdered By: Sylviawily GoldsmithRonelManuel on 07-07-2024 Erythrocyte distribution width (RBC) [Ratio] 21.1 % High 11.9-15.3 [facility] Comment on above: Performed By: #### C BC ####[place] [id number] [facility] Erythrocytes [#/volume] in B lood by Automated countOrdered By: Sylviawily GoldsmithRonel Caputoy on 07-07-2024 RBC (Bld) [#/Vol] 3.70 10*6/uL Normal 3.60-5.00 [facility] Comment on above: Performed By: #### C BC ####[address] [address] [facility] Glucose Poct Glucometerson 0 07-07-2024 Glucose [Mass/Vol] 174 mg/dL Normal [facility] Comment on above: Result Comment: [place] Glucose Reference Range is dependent on time and content of last meal. Glucose of more than 200 mg/dL in a nonstressed, ambulatory subject supports the diagnosis of Diabetes Mellitus. PERFORMED BY: [facility] [address] [place] [address] PATHOLOGIST BUILDING ENGINEER ADALBERTO MARTEL M.D. Performed By: #### G LULS ####Point of Care testing, Commemt1 Glu2: Cleaned Meter Normal [facility] Comment on above: Result Comment: PERF ORMED BY: [place] [address] PATHOLOGIST BUILDING ENGINEER ADALBERTO MARTEL M.D. Performed By: #### G LULS ####Point of Care testing, Glucose [Mass/Vol] 184 mg/dL Normal [facility] Comment on above: Result Comment: [place] [facility] Glucose Reference Range is dependent on time and content of last meal. Glucose of more than 200 mg/dL in a nonstressed, ambulatory subject supports the diagnosis of Diabetes Mellitus. Performed By: #### G LULS ####Point of Care testing, Glucose [Mass/Vol] 283 mg/dL Normal [facility] Comment on above: Result Comment: [place] [facility] Glucose Reference Range is dependent on time and content of last meal. Glucose of more than 200 mg/dL in a nonstressed, ambulatory subject supports the diagnosis of Diabetes Mellitus. PERFORMED BY: [place] [phone] PATHOLOGIST BUILDING ENGINEER ADALBERTO MARTEL M.D. Performed By: #### C RP, TSH3, ESR, BMP, BHOB, LIPASE, HEPATIC, SCAN CBC, PT #### [address] Glucose [Mass/Vol] 182 mg/dL Normal [facility] Comment on above: Result Comment: [place] [facility] Glucose Reference Range is dependent on time and content of last meal. Glucose of more than 200 mg/dL in a nonstressed, ambulatory subject supports the diagnosis of Diabetes Mellitus. PERFORMED BY: [place] [address] PATHOLOGIST BUILDING ENGINEER ADALBERTO MARTEL M.D. Performed By: #### G LULS ####Point of Care testing, Hematocrit Auto (Bld) [Volum e fraction]Ordered By: Sylvia Centeno on 07-07-2024 Hematocrit (Bld) [Volume fraction] Hematocrit [Volume Fraction] of Blood by Automated count Low 34.0-46.4 [facility] Hematocrit [Volume Fraction] of Blood by Automated countOrdered By: Sylvia Centeno on 07-07-2024 Hematocrit (Bld) [Volume fraction] 28.6 % Low 34.0-46.4 [facility] Comment on above: Performed By: #### C BC ####[facility] [place] [id number] [facility] Hemoglobin [Mass/volume] in BloodOrdered By: Sylvia Centeno on 07-07-2024 Hemoglobin (Bld) [Mass/Vol] Hemoglobin [Mass/volume] in Blood Low 11.8-15.4 [facility] Hemoglobin (Bld) [Mass/Vol] 9.3 g/dL Low 11.8-15.4 [facility] Comment on above: Performed By: #### C BC ####[place] [id number] [place] [id number] [facility] Leukocytes [#/volume] correc lyly for nucleated erythrocytes in Blood by Automated counOrdered By: Sylvia Centeno on 07-07-2024 WBC corrected for nucl RBC Auto (Bld) [#/Vol] Leukocytes [#/volume] corrected for nucleated erythrocytes in Blood by Automated coun 3.8-11.6 [facility] WBC corrected for nucl RBC Auto (Bld) [#/Vol] 6.5 10*3/uL 3.8-11.6 [facility] Leukocytes [#/volume] in Blo od by Automated countOrdered By: Sylvia Jackson on 07-07-2024 WBC (Bld) [#/Vol] 6.5 10*3/uL Normal 3.8-11.6 [facility] Comment on above: Performed By: #### C BC ####[place] [id number] [place] [id number] [facility] Lymphocytes Auto (Bld) [#/Vo l]Ordered By: Sylvia Centeno on 07-07-2024 Lymphocytes (Bld) [#/Vol] Lymphocytes [#/volume] in Blood by Automated count 1.00-4.8 [facility] Lymphocytes [#/volume] in Bl ood by Automated countOrdered By: Sylvia Jackson on 07-07-2024 Lymphocytes (Bld) [#/Vol] 1.0 10*3/uL Normal 1.00-4.8 [facility] Comment on above: Performed By: #### C BC ####[address] Lymphocytes/100 WBC Auto (Bl d)Ordered By: Sylvia Centeno on 07-07-2024 Lymphocytes/100 WBC (Bld) Lymphocytes/100 leukocytes in Blood by Automated count . [facility] Lymphocytes/100 leukocytes i n Blood by Automated countOrdered By: Sylvia Centeno on 07-07-2024 Lymphocytes/100 WBC (Bld) 14.7 % Normal . [facility] Comment on above: Performed By: #### C BC ####[address] MCH Auto (RBC) [Entitic mass ]Ordered By: Sylvia Centeno on 07-07-2024 MCH (RBC) [Entitic mass] MCH [Entitic mass] by Automated count 24.7-34.3 [facility] MCH [Entitic mass] by Automa lyly countOrdered By: Sylvia Centeno on 07-07-2024 MCH (RBC) [Entitic mass] 25.0 pg Normal 24.7-34.3 [facility] Comment on above: Performed By: #### C BC ####[address] MCHC Auto (RBC) [Mass/Vol]Or dered By: Sylvia Centeno on 07-07-2024 MCHC (RBC) [Mass/Vol] MCHC [Mass/volume] by Automated count 32.0-35.0 [facility] MCHC (RBC) [Mass/Vol] 32.4 g/dL 32.0-35.0 [facility] MCV Auto (RBC) [Entitic vol] Ordered By: Sylvia Centeno on 07-07-2024 MCV (RBC) [Entitic vol] MCV [Entitic volume] by Automated count Low 80-100 [facility] MCV [Entitic volume] by Auto mated countOrdered By: Sylvia Centeno on 07-07-2024 MCV (RBC) [Entitic vol] 77.2 fL Low 80-100 [facility] Comment on above: Performed By: #### C BC ####[place] [id number] [place] [id number] [facility] Monocytes Auto (Bld) [#/Vol] Ordered By: Sylvia Centeno on 07-07-2024 Monocytes (Bld) [#/Vol] Automated blood monocyte count High 0.0-0.8 [facility] Monocytes [#/volume] in Bloo d by Automated countOrdered By: Sylvia Centeno on 07-07-2024 Monocytes (Bld) [#/Vol] 0.9 10*3/uL High 0.0-0.8 [facility] Comment on above: Performed By: #### C BC ####[place] [id number] [facility] Monocytes/100 WBC Auto (Bld) Ordered By: Sylvia Centeno on 07-07-2024 Monocytes/100 WBC (Bld) Automated monocyte % . [facility] Monocytes/100 leukocytes in Blood by Automated countOrdered By: Sylvia Jackson on 07-07-2024 Monocytes/100 WBC (Bld) 13.6 % Normal . [facility] Comment on above: Performed By: #### C BC ####[place] [id number] [facility] Neutrophils Auto (Bld) [#/Vo l]Ordered By: Sylvia Centeno on 07-07-2024 Neutrophils (Bld) [#/Vol] Neutrophils [#/volume] in Blood by Automated count 1.8-7.7 [facility] Neutrophils [#/volume] in Bl ood by Automated countOrdered By: Sylvia Jackson on 07-07-2024 Neutrophils (Bld) [#/Vol] 4.5 10*3/uL Normal 1.8-7.7 [facility] Comment on above: Performed By: #### C BC ####[address] [place] [address] [facility] Neutrophils/100 WBC Auto (Bl d)Ordered By: Sylvia Centeno on 07-07-2024 Neutrophils/100 WBC (Bld) Automated neutrophil % . [facility] Neutrophils/100 leukocytes i n Blood by Automated countOrdered By: Sylvia Centeno on 07-07-2024 Neutrophils/100 WBC (Bld) 69.5 % Normal . [facility] Comment on above: Performed By: #### C BC ####[facility] [id number] [place] [address] [facility] Nucleated erythrocytes [Pres ence] in Blood by Automated countOrdered By: Sylvia Centeno on 07-07-2024 Nucleated RBC Auto Ql (Bld) Nucleated erythrocytes [Presence] in Blood by Automated count 0-0.5 [facility] Nucleated RBC Auto Ql (Bld) 0.2 /100{WBC} 0-0.5 [facility] Platelet mean volume Auto (B ld) [Entitic vol]Ordered By: Sylvia Centeno on 07-07-2024 Platelet mean volume (Bld) [Entitic vol] Platelet mean volume [Entitic volume] in Blood by Automated count 6.3-10.7 [facility] Platelet mean volume [Entiti c volume] in Blood by Automated countOrdered By: Sylvia Centeno on 07-07-2024 Platelet mean volume (Bld) [Entitic vol] 8.3 fL Normal 6.3-10.7 [facility] Comment on above: Performed By: #### C BC ####[facility] [id number] [place] [address] [facility] Platelets Auto (Bld) [#/Vol] Ordered By: Sylvia Centeno on 07-07-2024 Platelets (Bld) [#/Vol] Platelets [#/volume] in Blood by Automated count Low 150-450 [facility] Platelets [#/volume] in Bloo d by Automated countOrdered By: Sylvia Centeno on 07-07-2024 Platelets (Bld) [#/Vol] 136 10*3/uL Low 150-450 [facility] Comment on above: Performed By: #### C BC ####[address] RBC Auto (Bld) [#/Vol]Ordere d By: Sylvia Centeno on 07-07-2024 RBC (Bld) [#/Vol] Erythrocytes [#/volu me] in Blood by Automated count 3.60-5.00 [facility] WBC Auto (Bld) [#/Vol]Ordere d By: Sylvia Centeno on 07-07-2024 WBC (Bld) [#/Vol] Leukocytes [#/volume ] in Blood by Automated count 3.8-11.6 [facility] Complete Blood Count Auto Di ffon 07-06-2024 Basophils (Bld) [#/Vol] 0.1 10*3/uL Normal 0.0-0.2 [facility] Comment on above: Result Comment: PERF ORMED BY: [facility] [address] [place] [address] PATHOLOGIST BUILDING ENGINEER ADALBERTO MARTEL M.D. Performed By: #### C BC ####[address] Basophils/100 WBC (Bld) 0.8 % Normal . [facility] Comment on above: Performed By: #### C BC ####[address] Eosinophils (Bld) [#/Vol] 0.1 10*3/uL Normal 0.0-0.45 [facility] Comment on above: Performed By: #### C BC ####[address] Eosinophils/100 WBC (Bld) 1.4 % Normal . [facility] Comment on above: Performed By: #### C BC ####[address] Erythrocyte distribution width (RBC) [Ratio] 20.7 % High 11.9-15.3 [facility] Comment on above: Performed By: #### C BC ####[address] Hematocrit (Bld) [Volume fraction] 28.6 % Low 34.0-46.4 [facility] Comment on above: Performed By: #### C BC ####[address] Hemoglobin (Bld) [Mass/Vol] 9.3 g/dL Low 11.8-15.4 [facility] Comment on above: Performed By: #### C BC ####[address] Lymphocytes (Bld) [#/Vol] 1.4 10*3/uL Normal 1.00-4.8 [facility] Comment on above: Performed By: #### C BC ####[address] Lymphocytes/100 WBC (Bld) 16.6 % Normal . [facility] Comment on above: Performed By: #### C BC ####[address] MCH (RBC) [Entitic mass] 24.8 pg Normal 24.7-34.3 [facility] Comment on above: Performed By: #### C BC ####[address] MCV (RBC) [Entitic vol] 76.6 fL Low 80-100 [facility] Comment on above: Performed By: #### C BC ####[address] Mean Corpuscular HGB Conc 32.4 g/dL Normal 32.0-35.0 [facility] Comment on above: Performed By: #### C BC ####[address] Monocytes (Bld) [#/Vol] 1.2 10*3/uL High 0.0-0.8 [facility] Comment on above: Performed By: #### C BC ####[address] Monocytes/100 WBC (Bld) 14.0 % Normal . [facility] Comment on above: Performed By: #### C BC ####[place] [id number] [facility] Neutrophils (Bld) [#/Vol] 5.6 10*3/uL Normal 1.8-7.7 [facility] Comment on above: Performed By: #### C BC ####[address] Neutrophils/100 WBC (Bld) 67.2 % Normal . [facility] Comment on above: Performed By: #### C BC ####[address] NRBC% 0.8 /100{WBC} High 0-0.5 [facility] Comment on above: Performed By: #### C BC ####[address] Platelet mean volume (Bld) [Entitic vol] 8.5 fL Normal 6.3-10.7 [facility] Comment on above: Performed By: #### C BC ####[place] [id number] [facility] Platelets (Bld) [#/Vol] 152 10*3/uL Normal 150-450 [facility] Comment on above: Performed By: #### C BC ####[place] [id number] [facility] RBC (Bld) [#/Vol] 3.73 10*6/uL Normal 3.60-5.00 [facility] Comment on above: Performed By: #### C BC ####[place] [id number] [facility] WBC (Bld) [#/Vol] 8.3 10*3/uL Normal 3.8-11.6 [facility] Comment on above: Performed By: #### C BC ####[address] [place] [address] [facility] Glucose Poct Glucometerson 0 07-06-2024 Glucose [Mass/Vol] 245 mg/dL Normal [facility] Comment on above: Result Comment: [facility] Glucose Reference Range is dependent on time and content of last meal. Glucose of more than 200 mg/dL in a nonstressed, ambulatory subject supports the diagnosis of Diabetes Mellitus. PERFORMED BY: [place] [address] PATHOLOGIST BUILDING ENGINEER ADALBERTO MARTEL M.D. Performed By: #### G LULS ####Point of Care testing, Glucose [Mass/Vol] 138 mg/dL Normal [facility] Comment on above: Result Comment: [facility] Glucose Reference Range is dependent on time and content of last meal. Glucose of more than 200 mg/dL in a nonstressed, ambulatory subject supports the diagnosis of Diabetes Mellitus. PERFORMED BY: [place] [address] PATHOLOGIST BUILDING ENGINEER ADALBERTO MARTEL M.D. Performed By: #### G LULS ####Point of Care testing, Commemt1 Glu2: Cleaned Meter Normal [facility] Comment on above: Result Comment: PERF ORMED BY: [place] [address] PATHOLOGIST BUILDING ENGINEER ADALBERTO MARTEL M.D. Performed By: #### C RP, TSH3, ESR, BMP, BHOB, LIPASE, HEPATIC, SCAN CBC, PT #### [address] Glucose [Mass/Vol] 333 mg/dL Normal [facility] Comment on above: Result Comment: [facility] Glucose Reference Range is dependent on time and content of last meal. Glucose of more than 200 mg/dL in a nonstressed, ambulatory subject supports the diagnosis of Diabetes Mellitus. Performed By: #### C RP, TSH3, ESR, BMP, BHOB, LIPASE, HEPATIC, SCAN CBC, PT #### [address] Commemt1 Glu2: Cleaned Meter Normal [facility] Comment on above: Result Comment: PERF ORMED BY: [facility] [address] [facility] [place] [id number] PATHOLOGIST BUILDING ENGINEER ADALBERTO MARTEL M.D. Performed By: #### C RP, TSH3, ESR, BMP, BHOB, LIPASE, HEPATIC, SCAN CBC, PT #### [facility] [address] [place] [id number] [facility] Glucose [Mass/Vol] 270 mg/dL Normal [facility] Comment on above: Result Comment: [facility] Glucose Reference Range is dependent on time and content of last meal. Glucose of more than 200 mg/dL in a nonstressed, ambulatory subject supports the diagnosis of Diabetes Mellitus. Performed By: #### C RP, TSH3, ESR, BMP, BHOB, LIPASE, HEPATIC, SCAN CBC, PT #### [facility] [address] [place] [id number] [facility] No Panel InformationOrdered By: Sylvia Centeno on 07-06-2024 Urine Osmolality 502 mosm 250-900 [facility] Osmolality, Urineon 07-07-19 25 Osmolality, Urine 502 mosm Normal 250-900 [facility] Comment on above: Order Comment: SPOKE WITH ZAIDA, TRANSFERRED TO NURSE EXT WITH NO ANSWER @1503. CALLED AGAIN @1524 AND SPOKE TO ZAIDA AGAIN. SHE TOLD ME TO CALL 4N, I INFORMED HER OUR 3 EXTENTION NUMBERS FOR 4N STATED NUMBER NOT IN SERVICE. SHE DID NOT TRANSFER ME TO THE NURSE I NEEDED, STATED SHE WILL HAVE NURSE CALL ME. CALLED BACK AND SPOKE WITH A NURSE ON 4N. COLLECTION TIME 1430, COLLECTED BY LENCHO CINTRON [id number]) Result Comment: PERF ORMED BY: [facility] [address] [facility] [place] [id number] PATHOLOGIST BUILDING ENGINEER ADALBERTO MARTEL M.D. Performed By: #### C RP, TSH3, ESR, BMP, BHOB, LIPASE, HEPATIC, SCAN CBC, PT #### [facility] [address] [place] [id number] [facility] Sodium [Moles/volume] in Uri neOrdered By: Sylviawily RamirezManuel on 07-06-2024 Sodium (U) [Moles/Vol] Sodium [Moles/volume] in Urine [facility] Comment on above: No reference range e stablished Sodium (U) [Moles/Vol] 11.0 mmol/L Normal [facility] Comment on above: No reference range e stablished Order Comment: SPOKE WITH AARTI CERDA, TRANSFERRED TO NURSE EXT WITH NO ANSWER @1503. CALLED AGAIN @1524 AND SPOKE TO ZAIDA AGAIN. SHE TOLD ME TO CALL 4N, I INFORMED HER OUR 3 EXTENTION NUMBERS FOR 4N STATED NUMBER NOT IN SERVICE. SHE DID NOT TRANSFER ME TO THE NURSE I NEEDED, STATED SHE WILL HAVE NURSE CALL ME. CALLED BACK AND SPOKE WITH A NURSE ON 4N. COLLECTION TIME 1430, COLLECTED BY LENCHO CINTRON ([id number]) Result Comment: No r eference range established PERFORMED BY: [place] [address] PATHOLOGIST BUILDING ENGINEER ADALBERTO MARTEL M.D. Performed By: #### C RP, TSH3, ESR, BMP, BHOB, LIPASE, HEPATIC, SCAN CBC, PT #### [address] Basic Metabolic Panelon 05-0 Anion gap [Moles/Vol] 9.5 mmol/L Normal 6.0-15.0 [facility] Comment on above: Performed By: #### C RP, TSH3, ESR, BMP, BHOB, LIPASE, HEPATIC, SCAN CBC, PT #### [address] Calcium [Mass/Vol] 7.4 mg/dL Low 8.6-10.3 [facility] Comment on above: Performed By: #### C RP, TSH3, ESR, BMP, BHOB, LIPASE, HEPATIC, SCAN CBC, PT #### [address] Chloride [Moles/Vol] 97 mmol/L Low 98-107 [facility] Comment on above: Performed By: #### C RP, TSH3, ESR, BMP, BHOB, LIPASE, HEPATIC, SCAN CBC, PT #### [facility] [address] CO2 [Moles/Vol] 24.3 mmol/L Normal 21.0-31.0 [facility] Comment on above: Performed By: #### C RP, TSH3, ESR, BMP, BHOB, LIPASE, HEPATIC, SCAN CBC, PT #### [facility] [address] Creatinine [Mass/Vol] 0.39 mg/dL Low 0.60-1.20 [facility] Comment on above: Performed By: #### C RP, TSH3, ESR, BMP, BHOB, LIPASE, HEPATIC, SCAN CBC, PT #### [facility] [address] Creatinine Clr Calc Pharmacy 132.36 Normal [facility] Comment on above: Performed By: #### C RP, TSH3, ESR, BMP, BHOB, LIPASE, HEPATIC, SCAN CBC, PT #### [facility] [address] GFR/1.73 sq M.predicted MDRD (S/P/Bld) [Vol rate/Area] mL/min/{1.73_m2} Normal [facility] Comment on above: Performed By: #### C RP, TSH3, ESR, BMP, BHOB, LIPASE, HEPATIC, SCAN CBC, PT #### [facility] [address] Glucose [Mass/Vol] 204 mg/dL High 70-100 [facility] Comment on above: Result Comment: [place] Glucose Reference Range is dependent on time and content of last meal. Glucose of more than 200 mg/dL in a nonstressed, ambulatory subject supports the diagnosis of Diabetes Mellitus. ADA recommended reference range Performed By: #### C RP, TSH3, ESR, BMP, BHOB, LIPASE, HEPATIC, SCAN CBC, PT #### [facility] [address] Potassium [Moles/Vol] 4.8 mmol/L Normal 3.5-5.1 [facility] Comment on above: Performed By: #### C RP, TSH3, ESR, BMP, BHOB, LIPASE, HEPATIC, SCAN CBC, PT #### [address] Sodium [Moles/Vol] 126 mmol/L Low 136-145 [facility] Comment on above: Performed By: #### C RP, TSH3, ESR, BMP, BHOB, LIPASE, HEPATIC, SCAN CBC, PT #### [address] Urea nitrogen [Mass/Vol] 17 mg/dL Normal 7-25 [facility] Comment on above: Performed By: #### C RP, TSH3, ESR, BMP, BHOB, LIPASE, HEPATIC, SCAN CBC, PT #### [address] Complete Blood Count Auto Di ffon 07-05-2024 Basophils (Bld) [#/Vol] 0.1 10*3/uL Normal 0.0-0.2 [facility] Comment on above: Result Comment: PERF ORMED BY: [place] [address] PATHOLOGIST BUILDING ENGINEER ADALBERTO MARTEL M.D. Performed By: #### C BC, OSMO ####[address] Basophils/100 WBC (Bld) 0.7 % Normal . [facility] Comment on above: Performed By: #### C BC, OSMO ####[address] Eosinophils (Bld) [#/Vol] 0.1 10*3/uL Normal 0.0-0.45 [facility] Comment on above: Performed By: #### C BC, OSMO ####[address] Eosinophils/100 WBC (Bld) 1.0 % Normal . [facility] Comment on above: Performed By: #### C BC, OSMO ####[place] [id number] [facility] Erythrocyte distribution width (RBC) [Ratio] 20.9 % High 11.9-15.3 [facility] Comment on above: Performed By: #### C BC, OSMO ####[address] Hematocrit (Bld) [Volume fraction] 27.5 % Low 34.0-46.4 [facility] Comment on above: Performed By: #### C BC, OSMO ####[place] [id number] [facility] Hemoglobin (Bld) [Mass/Vol] 9.0 g/dL Low 11.8-15.4 [facility] Comment on above: Performed By: #### C BC, OSMO ####[address] Lymphocytes (Bld) [#/Vol] 1.4 10*3/uL Normal 1.00-4.8 [facility] Comment on above: Performed By: #### C BC, OSMO ####[address] Lymphocytes/100 WBC (Bld) 18.1 % Normal . [facility] Comment on above: Performed By: #### C BC, OSMO ####[place] [id number] [facility] MCH (RBC) [Entitic mass] 24.5 pg Low 24.7-34.3 [facility] Comment on above: Performed By: #### C BC, OSMO ####[place] [phone] [facility] MCV (RBC) [Entitic vol] 74.8 fL Low 80-100 [facility] Comment on above: Performed By: #### C BC, OSMO ####[place] [phone] [facility] Mean Corpuscular HGB Conc 32.8 g/dL Normal 32.0-35.0 [facility] Comment on above: Performed By: #### C BC, OSMO ####[address] [address] [facility] Monocytes (Bld) [#/Vol] 1.2 10*3/uL High 0.0-0.8 [facility] Comment on above: Performed By: #### C BC, OSMO ####[address] [address] [facility] Monocytes/100 WBC (Bld) 15.0 % Normal . [facility] Comment on above: Performed By: #### C AZALEA, OSMO ####[address] [address] [facility] Neutrophils (Bld) [#/Vol] 5.1 10*3/uL Normal 1.8-7.7 [facility] Comment on above: Performed By: #### C AZALEA, OSMO ####[place] [id number] [facility] Neutrophils/100 WBC (Bld) 65.2 % Normal . [facility] Comment on above: Performed By: #### C AZALEA, OSMO ####[address] [address] [facility] NRBC% 0.4 /100{WBC} Normal 0-0.5 [facility] Comment on above: Performed By: #### C AZALEA, OSMO ####[place] [id number] [facility] Platelet mean volume (Bld) [Entitic vol] 8.5 fL Normal 6.3-10.7 The [facility] Comment on above: Performed By: #### C BC, OSMO ####[address] [address] [facility] Platelets (Bld) [#/Vol] 130 10*3/uL Low 150-450 [facility] Comment on above: Performed By: #### C BC, OSMO ####[place] [id number] [facility] RBC (Bld) [#/Vol] 3.67 10*6/uL Normal 3.60-5.00 The [facility] Comment on above: Performed By: #### C BC, OSMO ####[facility] WBC (Bld) [#/Vol] 7.8 10*3/uL Normal 3.8-11.6 [facility] Comment on above: Performed By: #### C BC, OSMO ####[facility] [place] [id number] [facility] Cortisolon 07-05-2024 Cortisol 8.4 ug/dL Normal [facility] Comment on above: Result Comment: Refe rence range: AM 6 - 24 ug/dl PM <10 ug/dl [facility] user experience architect and method: [employer] UNICEL DXI, POLYCLONAL ANTIBODY CORTISOL ASSAY. PERFORMED BY: [place] [address] PATHOLOGIST BUILDING ENGINEER ADALBERTO MARTEL M.D. Performed By: #### C RP, TSH3, ESR, BMP, BHOB, LIPASE, HEPATIC, SCAN CBC, PT #### [facility] [address] Cortisol [Mass/volume] in Se rum or PlasmaOrdered By: Sylvia Centeno on 07-05-2024 Cortisol [Mass/Vol] Random cortisol measurement [facility] Comment on above: [facility] user experience architect and method:[employer] UNICEL DXI, POLYCLONAL ANTIBODY CORTISOL ASSAY.Reference range: AM 6 - 24 ug/dl PM <10 ug/dl Cortisol [Mass/Vol] 8.4 ug/dL [facility] Comment on above: [facility] user experience architect and method:[employer] UNICEL DXI, POLYCLONAL ANTIBODY CORTISOL ASSAY.Reference range: AM 6 - 24 ug/dl PM <10 ug/dl Glucose Poct Glucometerson 0 07-05-2024 Glucose [Mass/Vol] 327 mg/dL Normal [facility] Comment on above: Result Comment: [place] Glucose Reference Range is dependent on time and content of last meal. Glucose of more than 200 mg/dL in a nonstressed, ambulatory subject supports the diagnosis of Diabetes Mellitus. PERFORMED BY: [place] [id number] PATHOLOGIST BUILDING ENGINEER ADALBERTO MARTEL M.D. Performed By: #### C RP, TSH3, ESR, BMP, BHOB, LIPASE, HEPATIC, SCAN CBC, PT #### [facility] [address] [place] [address] [place] Glucose [Mass/Vol] 309 mg/dL Normal [facility] Comment on above: Result Comment: [place] [facility] Glucose Reference Range is dependent on time and content of last meal. Glucose of more than 200 mg/dL in a nonstressed, ambulatory subject supports the diagnosis of Diabetes Mellitus. PERFORMED BY: [place] [address] PATHOLOGIST BUILDING ENGINEER ADALBERTO MARTEL M.D. Performed By: #### C RP, TSH3, ESR, BMP, BHOB, LIPASE, HEPATIC, SCAN CBC, PT #### [place] [address] [place] Glucose [Mass/Vol] 326 mg/dL Normal [facility] Comment on above: Result Comment: [place] [facility] Glucose Reference Range is dependent on time and content of last meal. Glucose of more than 200 mg/dL in a nonstressed, ambulatory subject supports the diagnosis of Diabetes Mellitus. PERFORMED BY: [place] [address] PATHOLOGIST BUILDING ENGINEER ADALBERTO MARTEL M.D. Performed By: #### C RP, TSH3, ESR, BMP, BHOB, LIPASE, HEPATIC, SCAN CBC, PT #### [facility] [address] [place] [address] [place] Glucose [Mass/Vol] 285 mg/dL Normal [facility] Comment on above: Result Comment: [place] om Glucose Reference Range is dependent on time and content of last meal. Glucose of more than 200 mg/dL in a nonstressed, ambulatory subject supports the diagnosis of Diabetes Mellitus. PERFORMED BY: [place] [id number] PATHOLOGIST BUILDING ENGINEER ADALBERTO MARTEL M.D. Performed By: #### G VICKIE ####Point of Care testing, Magnesium [Mass/volume] in S michael or PlasmaOrdered By: Sylvia Centeno on 07-05-2024 Magnesium [Mass/Vol] Magnesium [Mass/vol ume] in Serum or Plasma 1.9-2.7 [facility] Magnesium [Mass/Vol] 1.9 mg/dL Normal 1.9-2.7 [facility] Comment on above: Performed By: #### C RP, TSH3, ESR, BMP, BHOB, LIPASE, HEPATIC, SCAN CBC, PT #### [facility] [address] Osmolalityon 07-05-2024 Osmolality 274 mosm Low 278-305 [facility] Comment on above: Result Comment: PERF ORMED BY: [place] [address] PATHOLOGIST BUILDING ENGINEER ADALBERTO MARTEL M.D. Performed By: #### C BC, OSMO ####[facility] [id number] Osmolality measurementOrdere d By: Sylvia Centeno on 07-05-2024 Osmolality (Unsp spec) [Osmolality] Osmolality measurement Low 278-305 [facility] Osmolality (Unsp spec) [Osmolality] 274 mosm Low 278-305 [facility] Thyrotropin [Units/volume] i n Serum or PlasmaOrdered By: Sylvia Centeno on 07-05-2024 TSH Qn Thyrotropin [Units/v olume] in Serum or Plasma 0.45-5.33 [facility] TSH Qn 1.72 m[IU]/L Normal 0.45-5.33 [facility] Comment on above: Performed By: #### C RP, TSH3, ESR, BMP, BHOB, LIPASE, HEPATIC, SCAN CBC, PT #### [facility] [address] US venous duplex LE RTon US venous duplex LE RT [facility] [address] [place] [address] [place] [address] Ultrasound Report Signed Patient: Teresa Lyle MR#: [id number] : 1960 Acct:[id number] Age/Sex: 64 / F ADM Date: 06/30/24 Loc: 4N Room: 6V7615-1 Type: ADM IN Attending Dr: Digna Roberto MD Ordering Provider: Sylvia Centeno APRN Date of Service: 07/04/24 US/US venous duplex LE RT: edema, calf pain, postop Copies to: ALLY Haddad MD RIGHT LOWER EXTREMITY VENOUS DUPLEX INDICATION: Right leg edema, pain and tenderness. Unilateral right lower extremity venous duplex Doppler study was obtained utilizing B-mode, color- flow and spectral Doppler. FINDINGS: The right common femoral, femoral, and popliteal veins showed adequate compressibility, color-flow and augmentation. The right posterior tibial and peroneal veins were compressible, as well as proximal greater saphenous vein. The contralateral left common femoral vein was compressible with color-flow and augmentation. US/US venous duplex LE RT IMPRESSION: NO EVIDENCE OF DEEP VENOUS THROMBOSIS IN THE RIGHT LOWER EXTREMITY. NO SUPERFICIAL THROMBOPHLEBITIS WAS NOTED. Impression dictated by: Harsha Garces MD,FACS,FSVS 07/05/2024 7:38 AM Dictation Location: [place] [address] Tech: Raegan Christianbarber Transcribed By: [facility] 07/05/24 0738 Dictated By: Harsha Garces MD 07/05/24 0737 Signed By: 07/05/24 0738 Normal [facility] Basic Metabolic Panelon Anion gap [Moles/Vol] 8.2 mmol/L Normal 6.0-15.0 [facility] Comment on above: Performed By: #### B MARCELL, CBC ####[facility] [id number] [place] [id number] [facility] Calcium [Mass/Vol] 7.6 mg/dL Low 8.6-10.3 [facility] Comment on above: Performed By: #### B MP, CBC ####[facility] [address] Chloride [Moles/Vol] 98 mmol/L Normal 98-107 [facility] Comment on above: Performed By: #### B MP, CBC ####[address] CO2 [Moles/Vol] 23.7 mmol/L Normal 21.0-31.0 [facility] Comment on above: Performed By: #### B MP, CBC ####[address] Creatinine [Mass/Vol] 0.42 mg/dL Low 0.60-1.20 [facility] Comment on above: Performed By: #### B MP, CBC ####[address] Creatinine Clr Calc Pharmacy 123.08 Normal [facility] Comment on above: Result Comment: PERF ORMED BY: [place] [address] PATHOLOGIST BUILDING ENGINEER ADALBERTO MARTEL M.D. Performed By: #### B MP, CBC ####[address] GFR/1.73 sq M.predicted MDRD (S/P/Bld) [Vol rate/Area] mL/min/{1.73_m2} Normal [facility] Comment on above: Performed By: #### B MP, CBC ####[address] Glucose [Mass/Vol] 276 mg/dL High 70-100 [facility] Comment on above: Result Comment: [place] Glucose Reference Range is dependent on time and content of last meal. Glucose of more than 200 mg/dL in a nonstressed, ambulatory subject supports the diagnosis of Diabetes Mellitus. ADA recommended reference range Performed By: #### B MP, CBC ####[address] Potassium [Moles/Vol] 4.9 mmol/L Normal 3.5-5.1 [facility] Comment on above: Performed By: #### B MP, CBC ####[address] Sodium [Moles/Vol] 125 mmol/L Low 136-145 [facility] Comment on above: Performed By: #### B MP, CBC ####[place] [id number] [facility] Urea nitrogen [Mass/Vol] 18 mg/dL Normal 7-25 [facility] Comment on above: Performed By: #### B MP, CBC ####[place] [id number] [facility] Complete Blood Count Auto Di ffon 07-04-2024 Basophils (Bld) [#/Vol] 0.0 10*3/uL Normal 0.0-0.2 [facility] Comment on above: Result Comment: PERF ORMED BY: [facility] [address] [facility] [place] [address] PATHOLOGIST BUILDING ENGINEER ADALBERTO MARTEL M.D. Performed By: #### B MP, CBC ####[address] Basophils/100 WBC (Bld) 0.5 % Normal . [facility] Comment on above: Performed By: #### B MP, CBC ####[address] Eosinophils (Bld) [#/Vol] 0.0 10*3/uL Normal 0.0-0.45 [facility] Comment on above: Performed By: #### B MP, CBC ####[place] [id number] [facility] Eosinophils/100 WBC (Bld) 0.4 % Normal . [facility] Comment on above: Performed By: #### B MP, CBC ####[address] Erythrocyte distribution width (RBC) [Ratio] 21.4 % High 11.9-15.3 [facility] Comment on above: Performed By: #### B MP, CBC ####[address] Hematocrit (Bld) [Volume fraction] 24.7 % Low 34.0-46.4 [facility] Comment on above: Performed By: #### B MP, CBC ####[address] Hemoglobin (Bld) [Mass/Vol] 7.7 g/dL Low 11.8-15.4 [facility] Comment on above: Performed By: #### B MP, CBC ####[address] Lymphocytes (Bld) [#/Vol] 1.1 10*3/uL Normal 1.00-4.8 [facility] Comment on above: Performed By: #### B MP, CBC ####[address] Lymphocytes/100 WBC (Bld) 16.2 % Normal . [facility] Comment on above: Performed By: #### B MP, CBC ####[address] MCH (RBC) [Entitic mass] 23.3 pg Low 24.7-34.3 [facility] Comment on above: Performed By: #### B MP, CBC ####[address] MCV (RBC) [Entitic vol] 74.5 fL Low 80-100 [facility] Comment on above: Performed By: #### B MP, CBC ####[address] Mean Corpuscular HGB Conc 31.3 g/dL Low 32.0-35.0 [facility] Comment on above: Performed By: #### B MP, CBC ####[address] Monocytes (Bld) [#/Vol] 1.0 10*3/uL High 0.0-0.8 [facility] Comment on above: Performed By: #### B MP, CBC ####[address] [address] [facility] Monocytes/100 WBC (Bld) 15.1 % Normal . [facility] Comment on above: Performed By: #### B MP, CBC ####[address] [address] [facility] Neutrophils (Bld) [#/Vol] 4.7 10*3/uL Normal 1.8-7.7 [facility] Comment on above: Performed By: #### B MP, CBC ####[address] [address] [facility] Neutrophils/100 WBC (Bld) 67.8 % Normal . [facility] Comment on above: Performed By: #### B MP, CBC ####[address] NRBC% 0.2 /100{WBC} Normal 0-0.5 [facility] Comment on above: Performed By: #### B MP, CBC ####[place] [id number] [facility] Platelet mean volume (Bld) [Entitic vol] 8.5 fL Normal 6.3-10.7 [facility] Comment on above: Performed By: #### B MP, CBC ####[address] [address] [facility] Platelets (Bld) [#/Vol] 116 10*3/uL Low 150-450 [facility] Comment on above: Performed By: #### B MP, CBC ####[address] [address] [facility] RBC (Bld) [#/Vol] 3.31 10*6/uL Low 3.60-5.00 [facility] Comment on above: Performed By: #### B MP, CBC ####[address] [address] [facility] WBC (Bld) [#/Vol] 6.9 10*3/uL Normal 3.8-11.6 [facility] Comment on above: Performed By: #### B MP, CBC ####[facility] [id number] Glucose Poct Glucometerson 0 07-04-2024 Glucose [Mass/Vol] 299 mg/dL Normal [facility] Comment on above: Result Comment: [place] om Glucose Reference Range is dependent on time and content of last meal. Glucose of more than 200 mg/dL in a nonstressed, ambulatory subject supports the diagnosis of Diabetes Mellitus. PERFORMED BY: [facility] 1111 [place] [address] PATHOLOGIST BUILDING ENGINEER ADALBERTO MARTEL M.D. Performed By: #### G LULS ####Point of Care testing, Glucose [Mass/Vol] 311 mg/dL Normal [facility] Comment on above: Result Comment: [place] Glucose Reference Range is dependent on time and content of last meal. Glucose of more than 200 mg/dL in a nonstressed, ambulatory subject supports the diagnosis of Diabetes Mellitus. PERFORMED BY: [place] [address] PATHOLOGIST BUILDING ENGINEER ADALBERTO MARTEL M.D. Performed By: #### G LULS ####Point of Care testing, Commemt1 Glu2: Cleaned Meter Normal [facility] Comment on above: Result Comment: PERF ORMED BY: [place] [address] PATHOLOGIST BUILDING ENGINEER ADALBERTO MARTEL M.D. Performed By: #### C RP, TSH3, ESR, BMP, BHOB, LIPASE, HEPATIC, SCAN CBC, PT #### [facility] [address] Glucose [Mass/Vol] 276 mg/dL Normal [facility] Comment on above: Result Comment: [place] Glucose Reference Range is dependent on time and content of last meal. Glucose of more than 200 mg/dL in a nonstressed, ambulatory subject supports the diagnosis of Diabetes Mellitus. Performed By: #### C RP, TSH3, ESR, BMP, BHOB, LIPASE, HEPATIC, SCAN CBC, PT #### [address] Glucose [Mass/Vol] 299 mg/dL Normal [facility] Comment on above: Result Comment: [facility] Glucose Reference Range is dependent on time and content of last meal. Glucose of more than 200 mg/dL in a nonstressed, ambulatory subject supports the diagnosis of Diabetes Mellitus. PERFORMED BY: [place] [address] PATHOLOGIST BUILDING ENGINEER ADALBERTO MARTEL M.D. Performed By: #### G VICKIE ####Point of Care testing, Aerobic culture with sensiti vityOrdered By: Digna Roberto on 07-03-2024 Bacteria identified Aer cx Nom (Unsp spec) Aerobic culture with sensitivity [facility] Bacteria identified Aer cx Nom (Unsp spec) 2 Days [facility] Basic Metabolic Panelon Anion gap [Moles/Vol] 9.6 mmol/L Normal 6.0-15.0 [facility] Comment on above: Performed By: #### C RP, TSH3, ESR, BMP, BHOB, LIPASE, HEPATIC, SCAN CBC, PT #### [address] Calcium [Mass/Vol] 7.4 mg/dL Low 8.6-10.3 [facility] Comment on above: Performed By: #### C RP, TSH3, ESR, BMP, BHOB, LIPASE, HEPATIC, SCAN CBC, PT #### [place] [address] [place] Chloride [Moles/Vol] 99 mmol/L Normal 98-107 [facility] Comment on above: Performed By: #### C RP, TSH3, ESR, BMP, BHOB, LIPASE, HEPATIC, SCAN CBC, PT #### [place] [address] [place] CO2 [Moles/Vol] 23.9 mmol/L Normal 21.0-31.0 [facility] Comment on above: Performed By: #### C RP, TSH3, ESR, BMP, BHOB, LIPASE, HEPATIC, SCAN CBC, PT #### [facility] [address] Creatinine [Mass/Vol] 0.49 mg/dL Low 0.60-1.20 [facility] Comment on above: Performed By: #### C RP, TSH3, ESR, BMP, BHOB, LIPASE, HEPATIC, SCAN CBC, PT #### [facility] [address] Creatinine Clr Calc Pharmacy 94.15 Normal [facility] Comment on above: Result Comment: PERF ORMED BY: [place] [address] PATHOLOGIST BUILDING ENGINEER ADALBERTO MARTEL M.D. Performed By: #### C RP, TSH3, ESR, BMP, BHOB, LIPASE, HEPATIC, SCAN CBC, PT #### [address] GFR/1.73 sq M.predicted MDRD (S/P/Bld) [Vol rate/Area] mL/min/{1.73_m2} Normal [facility] Comment on above: Performed By: #### C RP, TSH3, ESR, BMP, BHOB, LIPASE, HEPATIC, SCAN CBC, PT #### [address] Glucose [Mass/Vol] 291 mg/dL High 70-100 [facility] Comment on above: Result Comment: [facility] Glucose Reference Range is dependent on time and content of last meal. Glucose of more than 200 mg/dL in a nonstressed, ambulatory subject supports the diagnosis of Diabetes Mellitus. ADA recommended reference range Performed By: #### C RP, TSH3, ESR, BMP, BHOB, LIPASE, HEPATIC, SCAN CBC, PT #### [address] Potassium [Moles/Vol] 4.5 mmol/L Normal 3.5-5.1 [facility] Comment on above: Performed By: #### C RP, TSH3, ESR, BMP, BHOB, LIPASE, HEPATIC, SCAN CBC, PT #### [address] Sodium [Moles/Vol] 128 mmol/L Low 136-145 [facility] Comment on above: Performed By: #### C RP, TSH3, ESR, BMP, BHOB, LIPASE, HEPATIC, SCAN CBC, PT #### [address] Urea nitrogen [Mass/Vol] 18 mg/dL Normal 7-25 [facility] Comment on above: Performed By: #### C RP, TSH3, ESR, BMP, BHOB, LIPASE, HEPATIC, SCAN CBC, PT #### [address] Complete Blood Count Auto Di ffon 07-03-2024 Basophils (Bld) [#/Vol] 0.0 10*3/uL Normal 0.0-0.2 [facility] Comment on above: Result Comment: PERF ORMED BY: [place] [address] PATHOLOGIST BUILDING ENGINEER ADALBERTO MARTEL M.D. Performed By: #### C RP, TSH3, ESR, BMP, BHOB, LIPASE, HEPATIC, SCAN CBC, PT #### [address] Basophils/100 WBC (Bld) 0.6 % Normal . [facility] Comment on above: Performed By: #### C RP, TSH3, ESR, BMP, BHOB, LIPASE, HEPATIC, SCAN CBC, PT #### [address] Eosinophils (Bld) [#/Vol] 0.0 10*3/uL Normal 0.0-0.45 [facility] Comment on above: Performed By: #### C RP, TSH3, ESR, BMP, BHOB, LIPASE, HEPATIC, SCAN CBC, PT #### [address] Eosinophils/100 WBC (Bld) 0.4 % Normal . [facility] Comment on above: Performed By: #### C RP, TSH3, ESR, BMP, BHOB, LIPASE, HEPATIC, SCAN CBC, PT #### [address] Erythrocyte distribution width (RBC) [Ratio] 21.7 % High 11.9-15.3 [facility] Comment on above: Performed By: #### C RP, TSH3, ESR, BMP, BHOB, LIPASE, HEPATIC, SCAN CBC, PT #### [address] Hematocrit (Bld) [Volume fraction] 26.9 % Low 34.0-46.4 [facility] Comment on above: Performed By: #### C RP, TSH3, ESR, BMP, BHOB, LIPASE, HEPATIC, SCAN CBC, PT #### [address] Hemoglobin (Bld) [Mass/Vol] 8.6 g/dL Low 11.8-15.4 [facility] Comment on above: Performed By: #### C RP, TSH3, ESR, BMP, BHOB, LIPASE, HEPATIC, SCAN CBC, PT #### [address] Lymphocytes (Bld) [#/Vol] 0.6 10*3/uL Low 1.00-4.8 [facility] Comment on above: Performed By: #### C RP, TSH3, ESR, BMP, BHOB, LIPASE, HEPATIC, SCAN CBC, PT #### [address] Lymphocytes/100 WBC (Bld) 10.5 % Normal . [facility] Comment on above: Performed By: #### C RP, TSH3, ESR, BMP, BHOB, LIPASE, HEPATIC, SCAN CBC, PT #### [address] MCH (RBC) [Entitic mass] 24.1 pg Low 24.7-34.3 [facility] Comment on above: Performed By: #### C RP, TSH3, ESR, BMP, BHOB, LIPASE, HEPATIC, SCAN CBC, PT #### [address] MCV (RBC) [Entitic vol] 74.9 fL Low 80-100 [facility] Comment on above: Performed By: #### C RP, TSH3, ESR, BMP, BHOB, LIPASE, HEPATIC, SCAN CBC, PT #### [address] Mean Corpuscular HGB Conc 32.2 g/dL Normal 32.0-35.0 [facility] Comment on above: Performed By: #### C RP, TSH3, ESR, BMP, BHOB, LIPASE, HEPATIC, SCAN CBC, PT #### [address] Monocytes (Bld) [#/Vol] 0.9 10*3/uL High 0.0-0.8 [facility] Comment on above: Performed By: #### C RP, TSH3, ESR, BMP, BHOB, LIPASE, HEPATIC, SCAN CBC, PT #### [address] Monocytes/100 WBC (Bld) 15.7 % Normal . [facility] Comment on above: Performed By: #### C RP, TSH3, ESR, BMP, BHOB, LIPASE, HEPATIC, SCAN CBC, PT #### [address] Neutrophils (Bld) [#/Vol] 4.2 10*3/uL Normal 1.8-7.7 [facility] Comment on above: Performed By: #### C RP, TSH3, ESR, BMP, BHOB, LIPASE, HEPATIC, SCAN CBC, PT #### [address] Neutrophils/100 WBC (Bld) 72.8 % Normal . [facility] Comment on above: Performed By: #### C RP, TSH3, ESR, BMP, BHOB, LIPASE, HEPATIC, SCAN CBC, PT #### [address] NRBC% 0.1 /100{WBC} Normal 0-0.5 [facility] Comment on above: Performed By: #### C RP, TSH3, ESR, BMP, BHOB, LIPASE, HEPATIC, SCAN CBC, PT #### [facility] [address] Platelet mean volume (Bld) [Entitic vol] 9.1 fL Normal 6.3-10.7 [facility] Comment on above: Performed By: #### C RP, TSH3, ESR, BMP, BHOB, LIPASE, HEPATIC, SCAN CBC, PT #### [facility] [address] Platelets (Bld) [#/Vol] 106 10*3/uL Low 150-450 [facility] Comment on above: Performed By: #### C RP, TSH3, ESR, BMP, BHOB, LIPASE, HEPATIC, SCAN CBC, PT #### [facility] [address] RBC (Bld) [#/Vol] 3.59 10*6/uL Low 3.60-5.00 [facility] Comment on above: Performed By: #### C RP, TSH3, ESR, BMP, BHOB, LIPASE, HEPATIC, SCAN CBC, PT #### [address] WBC (Bld) [#/Vol] 5.8 10*3/uL Normal 3.8-11.6 [facility] Comment on above: Performed By: #### C RP, TSH3, ESR, BMP, BHOB, LIPASE, HEPATIC, SCAN CBC, PT #### [facility] [address] Glucose Poct Glucometerson 0 07-03-2024 Glucose [Mass/Vol] 279 mg/dL Normal [facility] Comment on above: Result Comment: [place] Glucose Reference Range is dependent on time and content of last meal. Glucose of more than 200 mg/dL in a nonstressed, ambulatory subject supports the diagnosis of Diabetes Mellitus. PERFORMED BY: [place] [address] PATHOLOGIST BUILDING ENGINEER ADALBERTO MARTEL M.D. Performed By: #### G LULS ####Point of Care testing, Glucose [Mass/Vol] 369 mg/dL Normal [facility] Comment on above: Result Comment: [facility] Glucose Reference Range is dependent on time and content of last meal. Glucose of more than 200 mg/dL in a nonstressed, ambulatory subject supports the diagnosis of Diabetes Mellitus. PERFORMED BY: [place] [address] PATHOLOGIST BUILDING ENGINEER ADALBERTO MARTEL M.D. Performed By: #### G LULS ####Point of Care testing, Commemt1 Normal [facility] Comment on above: Result Comment: Glu2 : WILL NOTIFY DR/RN Performed By: #### C RP, TSH3, ESR, BMP, BHOB, LIPASE, HEPATIC, SCAN CBC, PT #### [address] Commemt2 Cleaned Meter Normal [facility] Comment on above: Result Comment: PERF ORMED BY: [place] [address] PATHOLOGIST BUILDING ENGINEER ADALBERTO MARTEL M.D. Performed By: #### C RP, TSH3, ESR, BMP, BHOB, LIPASE, HEPATIC, SCAN CBC, PT #### [address] Glucose [Mass/Vol] 412 mg/dL Off scale high [facility] Comment on above: Result Comment: [facility] Glucose Reference Range is dependent on time and content of last meal. Glucose of more than 200 mg/dL in a nonstressed, ambulatory subject supports the diagnosis of Diabetes Mellitus. Performed By: #### C RP, TSH3, ESR, BMP, BHOB, LIPASE, HEPATIC, SCAN CBC, PT #### [address] Commemt1 Normal [facility] Comment on above: Result Comment: Glu2 : Will Repeat Test PERFORMED BY: [place] [id number] PATHOLOGIST BUILDING ENGINEER ADALBERTO MARTEL M.D. Performed By: #### C RP, TSH3, ESR, BMP, BHOB, LIPASE, HEPATIC, SCAN CBC, PT #### [facility] [address] [place] [id number] [facility] Glucose [Mass/Vol] 438 mg/dL Off scale high [facility] Comment on above: Result Comment: [place] Glucose Reference Range is dependent on time and content of last meal. Glucose of more than 200 mg/dL in a nonstressed, ambulatory subject supports the diagnosis of Diabetes Mellitus. Performed By: #### C RP, TSH3, ESR, BMP, BHOB, LIPASE, HEPATIC, SCAN CBC, PT #### [facility] [address] Glucose [Mass/Vol] 302 mg/dL Normal [facility] Comment on above: Result Comment: [facility] Glucose Reference Range is dependent on time and content of last meal. Glucose of more than 200 mg/dL in a nonstressed, ambulatory subject supports the diagnosis of Diabetes Mellitus. PERFORMED BY: [place] [address] PATHOLOGIST BUILDING ENGINEER ADALBERTO MARTEL M.D. Performed By: #### G VICKIE ####Point of Care testing, MRSA - MSSA Nasal PCRon MRSA - MSSA Nasal PCR MRSA Result MRSA Negative MSSA Result MSSA Negative Real-time PCR Test performed by real-time PCR Reference Range Reference Range for all targets = Neg / Not Detected Reference Note 20 -- Reference Note 26 -- PERFORMED BY: [place] [address] PATHOLOGIST BUILDING ENGINEER ADALBERTO MARTEL M.D. Normal [facility] Comment on above: Performed By: #### C RP, TSH3, ESR, BMP, BHOB, LIPASE, HEPATIC, SCAN CBC, PT #### [facility] [address] No Panel InformationOrdered By: Sylvia Centeno on 07-03-2024 Nasal Screen MRSA/MSSA [facility] No Panel InformationOrdered By: Digna Roberto on 07-03-2024 Bedside Glucose #2 Comment Cleaned meter [facility] Superficial Wound Cultureon 07-03-2024 Superficial Wound Culture Heavy Normal Skin Hortencia 2 Days PERFORMED BY: [place] [address] PATHOLOGIST BUILDING ENGINEER ADALBERTO MARTEL M.D. Normal [facility] Comment on above: Performed By: #### C USUP ####[address] BNP ser/plasOrdered By: Darin Waite on 07-02-2024 Natriuretic peptide B (Bld) [Mass/Vol] 50.0 pg/mL Normal 5-100 [facility] Comment on above: Result Comment: PERF ORMED BY: [place] [address] PATHOLOGIST BUILDING ENGINEER ADALBERTO MARTEL M.D. Performed By: #### C RP, TSH3, ESR, BMP, BHOB, LIPASE, HEPATIC, SCAN CBC, PT #### [address] Complete Blood Count Auto Di ffon 07-02-2024 Basophils (Bld) [#/Vol] 0.1 10*3/uL Normal 0.0-0.2 [facility] Comment on above: Result Comment: PERF ORMED BY: [place] [address] PATHOLOGIST BUILDING ENGINEER MOHAMED M EL-FAKHARANY M.D. Performed By: #### C RP, TSH3, ESR, BMP, BHOB, LIPASE, HEPATIC, SCAN CBC, PT #### [address] Basophils/100 WBC (Bld) 2.4 % Normal . [facility] Comment on above: Performed By: #### C RP, TSH3, ESR, BMP, BHOB, LIPASE, HEPATIC, SCAN CBC, PT #### [address] Eosinophils (Bld) [#/Vol] 0.1 10*3/uL Normal 0.0-0.45 [facility] Comment on above: Performed By: #### C RP, TSH3, ESR, BMP, BHOB, LIPASE, HEPATIC, SCAN CBC, PT #### [address] Eosinophils/100 WBC (Bld) 1.1 % Normal . [facility] Comment on above: Performed By: #### C RP, TSH3, ESR, BMP, BHOB, LIPASE, HEPATIC, SCAN CBC, PT #### [address] Erythrocyte distribution width (RBC) [Ratio] 21.2 % High 11.9-15.3 [facility] Comment on above: Performed By: #### C RP, TSH3, ESR, BMP, BHOB, LIPASE, HEPATIC, SCAN CBC, PT #### [address] Hematocrit (Bld) [Volume fraction] 28.1 % Low 34.0-46.4 [facility] Comment on above: Performed By: #### C RP, TSH3, ESR, BMP, BHOB, LIPASE, HEPATIC, SCAN CBC, PT #### [address] Hemoglobin (Bld) [Mass/Vol] 9.0 g/dL Low 11.8-15.4 [facility] Comment on above: Performed By: #### C RP, TSH3, ESR, BMP, BHOB, LIPASE, HEPATIC, SCAN CBC, PT #### [address] [place] [address] [place] Lymphocytes (Bld) [#/Vol] 0.9 10*3/uL Low 1.00-4.8 [facility] Comment on above: Performed By: #### C RP, TSH3, ESR, BMP, BHOB, LIPASE, HEPATIC, SCAN CBC, PT #### [address] Lymphocytes/100 WBC (Bld) 16.8 % Normal . [facility] Comment on above: Performed By: #### C RP, TSH3, ESR, BMP, BHOB, LIPASE, HEPATIC, SCAN CBC, PT #### [address] MCH (RBC) [Entitic mass] 23.5 pg Low 24.7-34.3 [facility] Comment on above: Performed By: #### C RP, TSH3, ESR, BMP, BHOB, LIPASE, HEPATIC, SCAN CBC, PT #### [address] MCV (RBC) [Entitic vol] 73.1 fL Low 80-100 [facility] Comment on above: Performed By: #### C RP, TSH3, ESR, BMP, BHOB, LIPASE, HEPATIC, SCAN CBC, PT #### [address] Mean Corpuscular HGB Conc 32.1 g/dL Normal 32.0-35.0 [facility] Comment on above: Performed By: #### C RP, TSH3, ESR, BMP, BHOB, LIPASE, HEPATIC, SCAN CBC, PT #### [address] Monocytes (Bld) [#/Vol] 0.7 10*3/uL Normal 0.0-0.8 [facility] Comment on above: Performed By: #### C RP, TSH3, ESR, BMP, BHOB, LIPASE, HEPATIC, SCAN CBC, PT #### [address] Monocytes/100 WBC (Bld) 14.2 % Normal . [facility] Comment on above: Performed By: #### C RP, TSH3, ESR, BMP, BHOB, LIPASE, HEPATIC, SCAN CBC, PT #### [address] Neutrophils (Bld) [#/Vol] 3.4 10*3/uL Normal 1.8-7.7 [facility] Comment on above: Performed By: #### C RP, TSH3, ESR, BMP, BHOB, LIPASE, HEPATIC, SCAN CBC, PT #### [address] Neutrophils/100 WBC (Bld) 65.5 % Normal . [facility] Comment on above: Performed By: #### C RP, TSH3, ESR, BMP, BHOB, LIPASE, HEPATIC, SCAN CBC, PT #### [address] NRBC% 0.1 /100{WBC} Normal 0-0.5 [facility] Comment on above: Performed By: #### C RP, TSH3, ESR, BMP, BHOB, LIPASE, HEPATIC, SCAN CBC, PT #### [address] Platelet mean volume (Bld) [Entitic vol] 8.3 fL Normal 6.3-10.7 [facility] Comment on above: Performed By: #### C RP, TSH3, ESR, BMP, BHOB, LIPASE, HEPATIC, SCAN CBC, PT #### [address] Platelets (Bld) [#/Vol] 88 10*3/uL Low 150-450 [facility] Comment on above: Performed By: #### C RP, TSH3, ESR, BMP, BHOB, LIPASE, HEPATIC, SCAN CBC, PT #### [address] RBC (Bld) [#/Vol] 3.84 10*6/uL Normal 3.60-5.00 The [facility] Comment on above: Performed By: #### C RP, TSH3, ESR, BMP, BHOB, LIPASE, HEPATIC, SCAN CBC, PT #### [facility] [address] WBC (Bld) [#/Vol] 5.2 10*3/uL Normal 3.8-11.6 [facility] Comment on above: Performed By: #### C RP, TSH3, ESR, BMP, BHOB, LIPASE, HEPATIC, SCAN CBC, PT #### [facility] [address] Glucose Poct Glucometerson 0 07-02-2024 Glucose [Mass/Vol] 351 mg/dL Normal [facility] Comment on above: Result Comment: [place] [facility] Glucose Reference Range is dependent on time and content of last meal. Glucose of more than 200 mg/dL in a nonstressed, ambulatory subject supports the diagnosis of Diabetes Mellitus. PERFORMED BY: [place] [address] PATHOLOGIST BUILDING ENGINEER ADALBERTO MARTEL M.D. Performed By: #### C RP, TSH3, ESR, BMP, BHOB, LIPASE, HEPATIC, SCAN CBC, PT #### [address] Glucose [Mass/Vol] 222 mg/dL Normal [facility] Comment on above: Result Comment: [place] Glucose Reference Range is dependent on time and content of last meal. Glucose of more than 200 mg/dL in a nonstressed, ambulatory subject supports the diagnosis of Diabetes Mellitus. PERFORMED BY: [place] [address] PATHOLOGIST BUILDING ENGINEER ADALBERTO MARTEL M.D. Performed By: #### G LULS ####Point of Care testing, Glucose [Mass/Vol] 267 mg/dL Normal [facility] Comment on above: Result Comment: [place] Glucose Reference Range is dependent on time and content of last meal. Glucose of more than 200 mg/dL in a nonstressed, ambulatory subject supports the diagnosis of Diabetes Mellitus. PERFORMED BY: [place] [phone] PATHOLOGIST BUILDING ENGINEER ADALBERTO MARTEL M.D. Performed By: #### G LULS ####Point of Care testing, Glucose [Mass/Vol] 266 mg/dL Normal [facility] Comment on above: Result Comment: [facility] Glucose Reference Range is dependent on time and content of last meal. Glucose of more than 200 mg/dL in a nonstressed, ambulatory subject supports the diagnosis of Diabetes Mellitus. PERFORMED BY: [place] [address] PATHOLOGIST BUILDING ENGINEER ADALBERTO MARTEL M.D. Performed By: #### C RP, TSH3, ESR, BMP, BHOB, LIPASE, HEPATIC, SCAN CBC, PT #### [address] Glucose [Mass/Vol] 208 mg/dL Normal [facility] Comment on above: Result Comment: [facility] Glucose Reference Range is dependent on time and content of last meal. Glucose of more than 200 mg/dL in a nonstressed, ambulatory subject supports the diagnosis of Diabetes Mellitus. PERFORMED BY: [place] [address] PATHOLOGIST BUILDING ENGINEER ADALBERTO MARTEL M.D. Performed By: #### C RP, TSH3, ESR, BMP, BHOB, LIPASE, HEPATIC, SCAN CBC, PT #### [address] Commemt1 Glu2: Cleaned Meter Normal [facility] Comment on above: Result Comment: PERF ORMED BY: [place] [address] PATHOLOGIST BUILDING ENGINEER ADALBERTO MARTEL M.D. Performed By: #### G LULS ####Point of Care testing, Glucose [Mass/Vol] 249 mg/dL Normal [facility] Comment on above: Result Comment: [place] Glucose Reference Range is dependent on time and content of last meal. Glucose of more than 200 mg/dL in a nonstressed, ambulatory subject supports the diagnosis of Diabetes Mellitus. Performed By: #### G LUGM ####Point of Care testing, INR in Platelet poor plasma by Coagulation assayOrdered By: Roger Robbins on 07-02-2024 INR Coag (PPP) [Relative time] INR in Platelet poor plasma by Coagulation assay [facility] Comment on above: INR Therapeutic Rang e A) Pre- and Peroperative OAT started two weeks before surgery. NOT HIP SURGERY: 1.5 - 2.5 HIP SURGERY: 2 - 3B) Primary and secondary prevention of venous THROMBOSIS: 2 - 3C) Active venous thrombosis, pulmonary embolismand prevention of recurrent venous thrombosis: 2 - 3D) Prevention of arterial thromboembolismincluding patients with mechanical heart valves: 3 - 4.5 INR Coag (PPP) [Relative time] 1.2 {INR} Normal [facility] Comment on above: INR Therapeutic Rang e A) Pre- and Peroperative OAT started two weeks before surgery. NOT HIP SURGERY: 1.5 - 2.5 HIP SURGERY: 2 - 3B) Primary and secondary prevention of venous THROMBOSIS: 2 - 3C) Active venous thrombosis, pulmonary embolismand prevention of recurrent venous thrombosis: 2 - 3D) Prevention of arterial thromboembolismincluding patients with mechanical heart valves: 3 - 4.5 Result Comment: INR Therapeutic Range A) Pre- and Peroperative OAT started two weeks before surgery. NOT HIP SURGERY: 1.5 - 2.5 HIP SURGERY: 2 - 3 B) Primary and secondary prevention of venous THROMBOSIS: 2 - 3 C) Active venous thrombosis, pulmonary embolism and prevention of recurrent venous thrombosis: 2 - 3 D) Prevention of arterial thromboembolism including patients with mechanical heart valves: 3 - 4.5 PERFORMED BY: [facility] [address] [place] [address] PATHOLOGIST BUILDING ENGINEER ADALBERTO MARTEL M.D. Performed By: #### P T ####[facility] [id number] [place] [address] [facility] Natriuretic peptide B [Mass/ Vol]Ordered By: Solo Waite on 07-02-2024 Natriuretic peptide B (Bld) [Mass/Vol] BNP ser/plas 5-100 [facility] Prothrombin time (PT)Ordered By: Roger Robbins on 07-02-2024 PT Coag (PPP) [Time] Prothrombin time (PT) High 9.0- 12.9 [facility] Comment on above: A hematocrit value g reater than 55% may lead to inaccurate results in coagulation testing. Patients having hematocrit values >55% require a special collection tube for coagulation studies. Please contact the laboratory at [phone] for redraw instructions. PT Coag (PPP) [Time] 14.0 s High 9.0-12.9 [facility] Comment on above: A hematocrit value g reater than 55% may lead to inaccurate results in coagulation testing. Patients having hematocrit values >55% require a special collection tube for coagulation studies. Please contact the laboratory at [phone] for redraw instructions. Result Comment: A he matocrit value greater than 55% may lead to inaccurate results in coagulation testing. Patients having hematocrit values >55% require a special collection tube for coagulation studies. Please contact the laboratory at [phone] for redraw instructions. Performed By: #### P T ####[facility] [id number] X-ray reportOrdered By: Loco Aaron on 07-02-2024 Study report [facility] [address] [place] [address] [place] [address] XRay Report Signed Patient: Teresa Lyle MR#: [id number] : 1960 Acct:[id number] Age/Sex: 64 / F ADM Date: 5 Loc: Room: [address] [place] [address] Type: ADM IN Attending Dr: Digna Roberto MD Copies to: DO Digna Peraza MD~ Ordering Provider: Roger Robbins DO Date of Service: 07/02/24 XR/XR hip RT min 2V(w/wo pelvis)*: . Intraoperative study. Reason for exam: Right TFN Findings: 6 images were obtained intraoperatively. Hardware was placed Cumulative Air Kerma in mGy: 10.6 mGy XR/XR hip RT min 2V(w/wo pelvis)* Impression: Intraoperative study. Impression dictated by: Rubin Aaron Jr., D.O. 07/02/2024 8:33 PM Dictation Location: RADIO-PC-18 Transcribed By: CHRISTIN 07/02/242032 Dictated By: Rubin Aaron Jr, DO 07/02/242031 Signed By: 07/02/242032 [facility] X-ray reportOrdered By: Farrukh Lange on 07-02-2024 Study report [place] [address] XRay Report Signed Patient: Teresa Lyle MR#: [id number] : 1960 Acct:[id number] Age/Sex: 64 / F ADM Date: Loc: Room: [address] [place] [address] Type: ADM IN Attending Dr: Digna Roberto MD Copies to: DO Digna Peraza MD~ Ordering Provider: Roger Robbins DO Date of Service: 07/02/24 XR/XR pelvis 1-2V: Hip Fracture Post op ([id number]) XR/XR femur RT 2V*: Hip Fracture Post op X-ray femur, 2 views, single view pelvis INDICATION: Postop fracture COMPARISON: 06/30/2024: Postsurgical changes status post placement of intramedullary rosina and interlocking screw through the intertrochanteric hip fracture. Near-anatomic osseous alignment. Overlying gas and surgical clips consistent with interval surgery. There are vascular calculations. The remainder of the pelvis left hip intact. XR/XR femur RT 2V* IMPRESSION: Expected postsurgical changes status post ORIF right hip fracture Impression dictated by: Navarro Lange M.D. 07/02/2024 9:51 AM Dictation Location: RADIO-PC-29 Transcribed By: CHRISTIN 07/02/24950 Dictated By: Navarro Lange MD 07/02/24946 Signed By: 07/02/24950 [facility] Work Phone: XR hip RT min 2V(w/wo pelvis )*on 07-02-2024 XR hip RT min 2V(w/wo pelvis)* [facility] Main [address] [address] XRay Report Signed Patient: Teresa Lyle MR#: [id number] : 1960 Acct:[id number] Age/Sex: 64 / F ADM Date: 06/30/24 Loc: 4N Room: [address] [place] [address] Type: ADM IN Attending Dr: Digna Roberto MD Copies to: DO Digna Peraza MD Ordering Provider: Roger Robbins DO Date of Service: 07/02/24 XR/XR hip RT min 2V(w/wo pelvis)*: . Intraoperative study. Reason for exam: Right TFN Findings: 6 images were obtained intraoperatively. Hardware was placed Cumulative Air Kerma in mGy: 10.6 mGy XR/XR hip RT min 2V(w/wo pelvis)* Impression: Intraoperative study. Impression dictated by: Rubin Aaron Jr., D.OJordana 07/02/2024 8:33 PM Dictation Location: RADIO-PC-18 Transcribed By: [facility] 07/02/242032 Dictated By: Rubin Aaron Jr, DO 07/02/242031 Signed By: 07/02/242032 Normal [facility] XR pelvis 1-2Von 07-02-2024 XR pelvis 1-2V [address] [address] XRay Report Signed Patient: Teresa Lyle MR#: [id number] : 1960 Acct:[id number] Age/Sex: 64 / F ADM Date: 06/30/24 Loc: 4N Room: [address] [place] [address] Type: ADM IN Attending Dr: Digna Roberto MD Copies to: DO Digna Peraza MD Ordering Provider: Roger Robbins DO Date of Service: 07/02/24 XR/XR pelvis 1-2V: Hip Fracture Post op ([id number]) XR/XR femur RT 2V*: Hip Fracture Post op X-ray femur, 2 views, single view pelvis INDICATION: Postop fracture COMPARISON: 06/30/2024: Postsurgical changes status post placement of intramedullary rosina and interlocking screw through the intertrochanteric hip fracture. Near-anatomic osseous alignment. Overlying gas and surgical clips consistent with interval surgery. There are vascular calculations. The remainder of the pelvis left hip intact. XR/XR femur RT 2V* IMPRESSION: Expected postsurgical changes status post ORIF right hip fracture Impression dictated by: Navarro Lange M.D. 07/02/2024 9:51 AM Dictation Location: [facility]- Transcribed By: [facility] 07/02/2451 Dictated By: Navarro Lange MD 07/02/2447 Signed By: 07/02/2451 Normal [facility] A1C with Estimated Average G neeru 07-01-2024 Glucose [Mass/Vol] 332 mg/dL Normal [facility] Comment on above: Result Comment: PERF ORMED BY: [facility] [address] [address] PATHOLOGIST BUILDING ENGINEER ADALBERTO MARTEL M.D. Performed By: #### P TT, PT, MG, BMP, FE and TIBC, A1C WTH eA, SABAS, CBC ####[place] [id number] [place] [id number] [facility] Basic Metabolic Panelon 05-0 Anion gap [Moles/Vol] 7.5 mmol/L Normal 6.0-15.0 [facility] Comment on above: Performed By: #### P TT, PT, MG, BMP, FE and TIBC, A1C WTH eA, SABAS, CBC ####[place] [address] [place] [address] [facility] Calcium [Mass/Vol] 7.7 mg/dL Low 8.6-10.3 [facility] Comment on above: Performed By: #### P TT, PT, MG, BMP, FE and TIBC, A1C WTH eA, SABAS, CBC ####[place] [address] [place] [id number] [facility] Chloride [Moles/Vol] 105 mmol/L Normal 98-107 [facility] Comment on above: Performed By: #### P TT, PT, MG, BMP, FE and TIBC, A1C WTH eA, SABAS, CBC ####[address] CO2 [Moles/Vol] 23.5 mmol/L Normal 21.0-31.0 [facility] Comment on above: Performed By: #### P TT, PT, MG, BMP, FE and TIBC, A1C WTH eA, SABAS, CBC ####[address] Creatinine [Mass/Vol] 0.39 mg/dL Low 0.60-1.20 [facility] Comment on above: Performed By: #### P TT, PT, MG, BMP, FE and TIBC, A1C WTH eA, SABAS, CBC ####[address] Creatinine Clr Calc Pharmacy 118.29 Normal [facility] Comment on above: Performed By: #### P TT, PT, MG, BMP, FE and TIBC, A1C WTH eA, SABAS, CBC ####[address] GFR/1.73 sq M.predicted MDRD (S/P/Bld) [Vol rate/Area] mL/min/{1.73_m2} Normal [facility] Comment on above: Performed By: #### P TT, PT, MG, BMP, FE and TIBC, A1C WTH eA, SABAS, CBC ####[address] Glucose [Mass/Vol] 294 mg/dL Significant change up 70-100 [facility] Comment on above: Result Comment: [place] Glucose Reference Range is dependent on time and content of last meal. Glucose of more than 200 mg/dL in a nonstressed, ambulatory subject supports the diagnosis of Diabetes Mellitus. ADA recommended reference range Performed By: #### P TT, PT, MG, BMP, FE and TIBC, A1C WTH eA, SABAS, CBC ####[address] [place] [address] [place] Potassium [Moles/Vol] 4.0 mmol/L Normal 3.5-5.1 [facility] Comment on above: Performed By: #### P TT, PT, MG, BMP, FE and TIBC, A1C WTH eA, SABAS, CBC ####[place] [address] [address] Sodium [Moles/Vol] 132 mmol/L Low 136-145 [facility] Comment on above: Performed By: #### P TT, PT, MG, BMP, FE and TIBC, A1C WTH eA, SABAS, CBC ####[place] [address] [address] Urea nitrogen [Mass/Vol] 11 mg/dL Normal 7-25 [facility] Comment on above: Performed By: #### P TT, PT, MG, BMP, FE and TIBC, A1C WTH eA, SABAS, CBC ####[place] [address] [address] Blood estimated average gluc ose determination by estimation from glycated hemoglobinOrdered By: Coco Zamora on 07-01-2024 Average glucose Estimated from glycated hemoglobin (Bld) [Mass/Vol] Glucose mean value [Mass/volume] in Blood Estimated from glycated hemoglobin [facility] Average glucose Estimated from glycated hemoglobin (Bld) [Mass/Vol] 332 mg/dL [facility] Complete Blood Count Auto Di ffon 07-01-2024 Basophils (Bld) [#/Vol] 0.1 10*3/uL Normal 0.0-0.2 [facility] Comment on above: Result Comment: PERF ORMED BY: [facility] [address] [place] [address] PATHOLOGIST BUILDING ENGINEER ADALBERTO MARTEL M.D. Performed By: #### C RP, TSH3, ESR, BMP, BHOB, LIPASE, HEPATIC, SCAN CBC, PT #### [facility] [address] Basophils/100 WBC (Bld) 1.3 % Normal . [facility] Comment on above: Performed By: #### C RP, TSH3, ESR, BMP, BHOB, LIPASE, HEPATIC, SCAN CBC, PT #### [address] Eosinophils (Bld) [#/Vol] 0.1 10*3/uL Normal 0.0-0.45 [facility] Comment on above: Performed By: #### C RP, TSH3, ESR, BMP, BHOB, LIPASE, HEPATIC, SCAN CBC, PT #### [address] Eosinophils/100 WBC (Bld) 2.0 % Normal . [facility] Comment on above: Performed By: #### C RP, TSH3, ESR, BMP, BHOB, LIPASE, HEPATIC, SCAN CBC, PT #### [address] Erythrocyte distribution width (RBC) [Ratio] 21.2 % High 11.9-15.3 [facility] Comment on above: Performed By: #### C RP, TSH3, ESR, BMP, BHOB, LIPASE, HEPATIC, SCAN CBC, PT #### [address] Hematocrit (Bld) [Volume fraction] 28.2 % Low 34.0-46.4 [facility] Comment on above: Performed By: #### C RP, TSH3, ESR, BMP, BHOB, LIPASE, HEPATIC, SCAN CBC, PT #### [address] Hemoglobin (Bld) [Mass/Vol] 9.0 g/dL Low 11.8-15.4 [facility] Comment on above: Performed By: #### C RP, TSH3, ESR, BMP, BHOB, LIPASE, HEPATIC, SCAN CBC, PT #### [address] Lymphocytes (Bld) [#/Vol] 1.0 10*3/uL Normal 1.00-4.8 [facility] Comment on above: Performed By: #### C RP, TSH3, ESR, BMP, BHOB, LIPASE, HEPATIC, SCAN CBC, PT #### [address] Lymphocytes/100 WBC (Bld) 18.3 % Normal . [facility] Comment on above: Performed By: #### C RP, TSH3, ESR, BMP, BHOB, LIPASE, HEPATIC, SCAN CBC, PT #### [address] MCH (RBC) [Entitic mass] 23.5 pg Low 24.7-34.3 [facility] Comment on above: Performed By: #### C RP, TSH3, ESR, BMP, BHOB, LIPASE, HEPATIC, SCAN CBC, PT #### [address] MCV (RBC) [Entitic vol] 73.2 fL Low 80-100 [facility] Comment on above: Performed By: #### C RP, TSH3, ESR, BMP, BHOB, LIPASE, HEPATIC, SCAN CBC, PT #### [address] Mean Corpuscular HGB Conc 32.1 g/dL Normal 32.0-35.0 [facility] Comment on above: Performed By: #### C RP, TSH3, ESR, BMP, BHOB, LIPASE, HEPATIC, SCAN CBC, PT #### [address] Monocytes (Bld) [#/Vol] 0.7 10*3/uL Normal 0.0-0.8 [facility] Comment on above: Performed By: #### C RP, TSH3, ESR, BMP, BHOB, LIPASE, HEPATIC, SCAN CBC, PT #### [address] Monocytes/100 WBC (Bld) 13.8 % Normal . [facility] Comment on above: Performed By: #### C RP, TSH3, ESR, BMP, BHOB, LIPASE, HEPATIC, SCAN CBC, PT #### [address] Neutrophils (Bld) [#/Vol] 3.4 10*3/uL Normal 1.8-7.7 [facility] Comment on above: Performed By: #### C RP, TSH3, ESR, BMP, BHOB, LIPASE, HEPATIC, SCAN CBC, PT #### [facility] [address] Neutrophils/100 WBC (Bld) 64.6 % Normal . [facility] Comment on above: Performed By: #### C RP, TSH3, ESR, BMP, BHOB, LIPASE, HEPATIC, SCAN CBC, PT #### [facility] [address] NRBC% 0.1 /100{WBC} Normal 0-0.5 [facility] Comment on above: Performed By: #### C RP, TSH3, ESR, BMP, BHOB, LIPASE, HEPATIC, SCAN CBC, PT #### [facility] [address] Platelet mean volume (Bld) [Entitic vol] 8.4 fL Normal 6.3-10.7 The [facility] Comment on above: Performed By: #### C RP, TSH3, ESR, BMP, BHOB, LIPASE, HEPATIC, SCAN CBC, PT #### [facility] [address] [place] [address] [place] Platelets (Bld) [#/Vol] 85 10*3/uL Significant change down 150-450 [facility] Comment on above: Performed By: #### C RP, TSH3, ESR, BMP, BHOB, LIPASE, HEPATIC, SCAN CBC, PT #### [facility] [address] [place] [address] [place] RBC (Bld) [#/Vol] 3.85 10*6/uL Normal 3.60-5.00 The [facility] Comment on above: Performed By: #### C RP, TSH3, ESR, BMP, BHOB, LIPASE, HEPATIC, SCAN CBC, PT #### [facility] [address] [place] [address] [place] WBC (Bld) [#/Vol] 5.3 10*3/uL Normal 3.8-11.6 The [facility] Comment on above: Performed By: #### C RP, TSH3, ESR, BMP, BHOB, LIPASE, HEPATIC, SCAN CBC, PT #### [address] Basophils (Bld) [#/Vol] 0.0 10*3/uL Normal 0.0-0.2 [facility] Comment on above: Result Comment: PERF ORMED BY: [place] [address] PATHOLOGIST BUILDING ENGINEER ADALBERTO MARTEL M.D. Performed By: #### P TT, PT, MG, BMP, FE and TIBC, A1C WTH eA, SABAS, CBC ####[address] Basophils/100 WBC (Bld) 0.8 % Normal . [facility] Comment on above: Performed By: #### P TT, PT, MG, BMP, FE and TIBC, A1C WTH eA, SABAS, CBC ####[address] Eosinophils (Bld) [#/Vol] 0.1 10*3/uL Normal 0.0-0.45 [facility] Comment on above: Performed By: #### P TT, PT, MG, BMP, FE and TIBC, A1C WTH eA, SABAS, CBC ####[address] Eosinophils/100 WBC (Bld) 1.1 % Normal . [facility] Comment on above: Performed By: #### P TT, PT, MG, BMP, FE and TIBC, A1C WTH eA, SABAS, CBC ####[address] Erythrocyte distribution width (RBC) [Ratio] 21.8 % High 11.9-15.3 [facility] Comment on above: Performed By: #### P TT, PT, MG, BMP, FE and TIBC, A1C WTH eA, SABAS, CBC ####[place] [address] [place] Hematocrit (Bld) [Volume fraction] 29.5 % Low 34.0-46.4 [facility] Comment on above: Performed By: #### P TT, PT, MG, BMP, FE and TIBC, A1C WTH eA, SABAS, CBC ####[address] Hemoglobin (Bld) [Mass/Vol] 9.5 g/dL Low 11.8-15.4 [facility] Comment on above: Performed By: #### P TT, PT, MG, BMP, FE and TIBC, A1C WTH eA, SABAS, CBC ####[address] Lymphocytes (Bld) [#/Vol] 0.8 10*3/uL Low 1.00-4.8 [facility] Comment on above: Performed By: #### P TT, PT, MG, BMP, FE and TIBC, A1C WTH eA, SABAS, CBC ####[address] Lymphocytes/100 WBC (Bld) 13.6 % Normal . [facility] Comment on above: Performed By: #### P TT, PT, MG, BMP, FE and TIBC, A1C WTH eA, SABAS, CBC ####[address] MCH (RBC) [Entitic mass] 23.7 pg Low 24.7-34.3 [facility] Comment on above: Performed By: #### P TT, PT, MG, BMP, FE and TIBC, A1C WTH eA, SABAS, CBC ####[address] MCV (RBC) [Entitic vol] 73.9 fL Low 80-100 [facility] Comment on above: Performed By: #### P TT, PT, MG, BMP, FE and TIBC, A1C WTH eA, SABAS, CBC ####[address] Mean Corpuscular HGB Conc 32.1 g/dL Normal 32.0-35.0 [facility] Comment on above: Performed By: #### P TT, PT, MG, BMP, FE and TIBC, A1C WTH eA, SABAS, CBC ####[address] Monocytes (Bld) [#/Vol] 0.8 10*3/uL Normal 0.0-0.8 [facility] Comment on above: Performed By: #### P TT, PT, MG, BMP, FE and TIBC, A1C WTH eA, SABAS, CBC ####[address] Monocytes/100 WBC (Bld) 12.8 % Normal . [facility] Comment on above: Performed By: #### P TT, PT, MG, BMP, FE and TIBC, A1C WTH eA, SABAS, CBC ####[address] Neutrophils (Bld) [#/Vol] 4.2 10*3/uL Normal 1.8-7.7 [facility] Comment on above: Performed By: #### P TT, PT, MG, BMP, FE and TIBC, A1C WTH eA, SABAS, CBC ####[address] Neutrophils/100 WBC (Bld) 71.7 % Normal . [facility] Comment on above: Performed By: #### P TT, PT, MG, BMP, FE and TIBC, A1C WTH eA, SABAS, CBC ####[address] NRBC% 0.1 /100{WBC} Normal 0-0.5 The [facility] Comment on above: Performed By: #### P TT, PT, MG, BMP, FE and TIBC, A1C WTH eA, SABAS, CBC ####[address] Platelet mean volume (Bld) [Entitic vol] 8.8 fL Normal 6.3-10.7 The [facility] Comment on above: Performed By: #### P TT, PT, MG, BMP, FE and TIBC, A1C WTH eA, SABAS, CBC ####[place] [id number] [facility] Platelets (Bld) [#/Vol] 58 10*3/uL Low 150-450 [facility] Comment on above: Performed By: #### P TT, PT, MG, BMP, FE and TIBC, A1C WTH eA, SABAS, CBC ####[place] [id number] [facility] RBC (Bld) [#/Vol] 3.99 10*6/uL Normal 3.60-5.00 The [facility] Comment on above: Performed By: #### P TT, PT, MG, BMP, FE and TIBC, A1C WTH eA, SABAS, CBC ####[address] WBC (Bld) [#/Vol] 5.9 10*3/uL Normal 3.8-11.6 The [facility] Comment on above: Performed By: #### P TT, PT, MG, BMP, FE and TIBC, A1C WTH eA, SABAS, CBC ####[address] Ferritin [Mass/volume] in Se rum or PlasmaOrdered By: Coco Zamora on 07-01-2024 Ferritin [Mass/Vol] Ferritin [Mass/volum e] in Serum or Plasma 11.0-306.8 [facility] Ferritin [Mass/Vol] 11.3 ng/mL Normal 11.0-306.8 [facility] Comment on above: Result Comment: PERF ORMED BY: [facility] [address] [place] [id number] PATHOLOGIST BUILDING ENGINEER ADALBERTO MARTEL M.D. Performed By: #### P TT, PT, MG, BMP, FE and TIBC, A1C WTH eA, SABAS, CBC ####[place] [id number] [facility] Glucose Poct Glucometerson 0 07-01-2024 Glucose [Mass/Vol] 261 mg/dL Normal The [facility] Comment on above: Result Comment: [place] om Glucose Reference Range is dependent on time and content of last meal. Glucose of more than 200 mg/dL in a nonstressed, ambulatory subject supports the diagnosis of Diabetes Mellitus. PERFORMED BY: [place] [address] PATHOLOGIST BUILDING ENGINEER ADALBERTO MARTEL M.D. Performed By: #### C RP, TSH3, ESR, BMP, BHOB, LIPASE, HEPATIC, SCAN CBC, PT #### [address] Glucose [Mass/Vol] 351 mg/dL Normal [facility] Comment on above: Result Comment: [place] om Glucose Reference Range is dependent on time and content of last meal. Glucose of more than 200 mg/dL in a nonstressed, ambulatory subject supports the diagnosis of Diabetes Mellitus. PERFORMED BY: [place] [address] PATHOLOGIST BUILDING ENGINEER ADALBERTO MARTEL M.D. Performed By: #### G LULS ####Point of Care testing, Glucose [Mass/Vol] 270 mg/dL Normal [facility] Comment on above: Result Comment: [place] om Glucose Reference Range is dependent on time and content of last meal. Glucose of more than 200 mg/dL in a nonstressed, ambulatory subject supports the diagnosis of Diabetes Mellitus. PERFORMED BY: [place] [address] PATHOLOGIST BUILDING ENGINEER ADALBERTO MARTEL M.D. Performed By: #### C RP, TSH3, ESR, BMP, BHOB, LIPASE, HEPATIC, SCAN CBC, PT #### [address] Glucose [Mass/Vol] 269 mg/dL Normal [facility] Comment on above: Result Comment: [place] Glucose Reference Range is dependent on time and content of last meal. Glucose of more than 200 mg/dL in a nonstressed, ambulatory subject supports the diagnosis of Diabetes Mellitus. PERFORMED BY: [place] [address] PATHOLOGIST BUILDING ENGINEER ADALBERTO MARTEL M.D. Performed By: #### C RP, TSH3, ESR, BMP, BHOB, LIPASE, HEPATIC, SCAN CBC, PT #### [facility] [address] Commemt1 Normal [facility] Comment on above: Result Comment: Glu2 : WILL NOTIFY DR/RN PERFORMED BY: [place] [address] PATHOLOGIST BUILDING ENGINEER ADALBERTO MARTEL M.D. Performed By: #### C RP, TSH3, ESR, BMP, BHOB, LIPASE, HEPATIC, SCAN CBC, PT #### [facility] [address] [place] [id number] [facility] Glucose [Mass/Vol] 430 mg/dL Off scale high Th e [facility] Comment on above: Result Comment: [place] Glucose Reference Range is dependent on time and content of last meal. Glucose of more than 200 mg/dL in a nonstressed, ambulatory subject supports the diagnosis of Diabetes Mellitus. Performed By: #### C RP, TSH3, ESR, BMP, BHOB, LIPASE, HEPATIC, SCAN CBC, PT #### [facility] [address] [place] [id number] [facility] Hemoglobin A1c/Hemoglobin.to jesus alberto in BloodOrdered By: Coco Zamora on 07-01-2024 HbA1c (Bld) [Mass fraction] Hemoglobin A1c percentage High 4.3-5.6 [facility] Comment on above: Increased risk for d iabetes: 5.7 - 6.4diabetes: >6.4glycemic control for adults with diabetes: <7.0 HbA1c (Bld) [Mass fraction] 13.2 % High 4.3-5.6 [facility] Comment on above: Increased risk for d iabetes: 5.7 - 6.4diabetes: >6.4glycemic control for adults with diabetes: <7.0 Result Comment: Incr eased risk for diabetes: 5.7 - 6.4 diabetes: >6.4 glycemic control for adults with diabetes: <7.0 Performed By: #### P TT, PT, MG, BMP, FE and TIBC, A1C WTH eA, SABAS, CBC ####[address] Iron [Mass/volume] in Serum or PlasmaOrdered By: Coco Zamora on 07-01-2024 Iron [Mass/Vol] Iron [Mass/volume] i n Serum or Plasma Low 50-212 [facility] Iron [Mass/Vol] 17 ug/dL Low 50-212 [facility] Comment on above: Performed By: #### P TT, PT, MG, BMP, FE and TIBC, A1C WTH eA, SABAS, CBC ####[address] Iron and TIBC Profileon 05-0 % Iron Saturation 5.2 % Low 20-50 The [facility] Comment on above: Performed By: #### P TT, PT, MG, BMP, FE and TIBC, A1C WTH eA, SABAS, CBC ####[address] Total Iron Binding Capacity 328 ug/dL Normal 255-450 [facility] Comment on above: Performed By: #### P TT, PT, MG, BMP, FE and TIBC, A1C WTH eA, SABAS, CBC ####[address] LeukoReduced RBCon LeukoReduced RBC TRANSFUSED 07/04/24 1330 Normal [facility] Magnesiumon 07-01-2024 Magnesium [Mass/Vol] 1.8 mg/dL Low 1.9-2.7 [facility] Comment on above: Performed By: #### P TT, PT, MG, BMP, FE and TIBC, A1C WTH eA, SABAS, CBC ####[address] Partial Thromboplastin Timeo n 07-01-2024 aPTT Coag (Bld) [Time] 37.3 s High 25.1-36.5 [facility] Comment on above: Result Comment: A he matocrit value greater than 55% may lead to inaccurate results in coagulation testing. Patients having hematocrit values >55% require a special collection tube for coagulation studies. Please contact the laboratory at [phone] for redraw instructions. PERFORMED BY: [facility] [address] [place] [id number] PATHOLOGIST BUILDING ENGINEER ADALBERTO MARTEL M.D. Performed By: #### P TT, PT, MG, BMP, FE and TIBC, A1C WTH eA, SABAS, CBC ####[place] [address] [place] [address] [facility] Platelet Pheresis LRon 07-01 Platelet Pheresis LR TRANSFUSED 07/01/24 1736 Normal [facility] Prothrombin Time INRon 07-01 INR Coag (PPP) [Relative time] 1.2 {INR} Normal [facility] Comment on above: Result Comment: INR Therapeutic Range A) Pre- and Peroperative OAT started two weeks before surgery. NOT HIP SURGERY: 1.5 - 2.5 HIP SURGERY: 2 - 3 B) Primary and secondary prevention of venous THROMBOSIS: 2 - 3 C) Active venous thrombosis, pulmonary embolism and prevention of recurrent venous thrombosis: 2 - 3 D) Prevention of arterial thromboembolism including patients with mechanical heart valves: 3 - 4.5 Performed By: #### P TT, PT, MG, BMP, FE and TIBC, A1C WTH eA, SABAS, CBC ####[place] [id number] [facility] PT Coag (PPP) [Time] 13.6 s High 9.0-12.9 [facility] Comment on above: Result Comment: A he matocrit value greater than 55% may lead to inaccurate results in coagulation testing. Patients having hematocrit values >55% require a special collection tube for coagulation studies. Please contact the laboratory at [phone] for redraw instructions. Performed By: #### P TT, PT, MG, BMP, FE and TIBC, A1C WTH eA, SABAS, CBC ####[place] [id number] [facility] Serum or plasma 25-hydroxyca lciferol measurement (mass/volume)Ordered By: Coco Zamora on 07-01-2024 25-hydroxyvitamin D2 [Mass/Vol] Serum or plasma 25-hydroxycalciferol measurement (mass/volume) . [facility] Comment on above: This test was develo ped and its performance characteristicsdetermined by [facility]. It has not been cleared or approvedby the Food and Drug Administration. 25-hydroxyvitamin D2 [Mass/Vol] 11 ng/mL . [facility] Comment on above: This test was develo ped and its performance characteristicsdetermined by [facility]. It has not been cleared or approvedby the Food and Drug Administration. Serum or plasma 25-hydroxyvi tamin D measurement (mass/volume)Ordered By: Coco Zamora on 07-01-2024 25-hydroxyvitamin D [Mass/Vol] Serum or plasma 25-hydroxyvitamin D measurement (mass/volume) Low . [facility] Comment on above: Reference Range:All Ages: Target levels 30 - 100 25-hydroxyvitamin D [Mass/Vol] 15 ng/mL Low . [facility] Comment on above: Reference Range:All Ages: Target levels 30 - 100 Serum or plasma calcidiol me asurement (mass/volume)Ordered By: Coco Zamora on 07-01-2024 25-hydroxyvitamin D3 [Mass/Vol] Serum or plasma calcidiol measurement (mass/volume) . [facility] Comment on above: This test was develo ped and its performance characteristicsdetermined by [facility]. It has not been cleared or approvedby the Food and Drug Administration.Performed at: [facility] [id number] [place], [place] [id number] Director: John Rao MD, Phone: [phone] 25-hydroxyvitamin D3 [Mass/Vol] 4.2 ng/mL . [facility] Comment on above: This test was develo ped and its performance characteristicsdetermined by [facility]. It has not been cleared or approvedby the Food and Drug Administration.Performed at: [facility] [id number] [place], [place] [id number] Director: John Rao MD, Phone: [phone] Serum or plasma iron binding capacity measurement (mass/volume)Ordered By: Coco Zamora on 07-01-2024 Iron binding capacity [Mass/Vol] Iron binding capacity [Mass/volume] in Serum or Plasma 255-450 [facility] Iron binding capacity [Mass/Vol] 328 ug/dL 255-450 [facility] Serum or plasma iron saturat ion measurement (mass fraction)Ordered By: Coco Zamora on 07-01-2024 Iron saturation [Mass fraction] Iron saturation [Mass Fraction] in Serum or Plasma Low 20-50 [facility] Iron saturation [Mass fraction] 5.2 % Low 20-50 [facility] Transferrin [Mass/volume] in Serum or PlasmaOrdered By: Coco Zamora on 07-01-2024 Transferrin [Mass/Vol] Transferrin [Mass/volume] in Serum or Plasma 203-362 [facility] Transferrin [Mass/Vol] 234 mg/dL Normal -362 [facility] Comment on above: Performed By: #### P TT, PT, MG, BMP, FE and TIBC, A1C WTH eA, SABAS, CBC ####[facility] [id number] [place] [id number] [facility] Type and Screenon 07-01-2024 ABO and Rh group Nom (Bld) Blood group A Rh(D) positive Normal [facility] Comment on above: Order Comment: Trans fuse now? Y Number of units to transfuse now? 2 Comment Hold 1 unit for OR procedure tomorrow Transfuse now? N Transfuse now? Y Number of units to transfuse now? 1 Vitamin D 25 Hydroxy,Tot+D2+ D3on 07-01-2024 [facility] Vitamin D 25 OH 15 ng/mL Low . [facility] Comment on above: Result Comment: Refe rence Range: All Ages: Target levels 30 - 100 Performed By: #### V ITD+D2+D3 ####[facility] , Vitamin D-2 11 ng/mL Normal . [facility] Comment on above: Result Comment: This test was developed and its performance characteristics determined by [facility]. It has not been cleared or approved by the Food and Drug Administration. Performed By: #### V ITD+D2+D3 ####[facility] , Vitamin D-3 4.2 ng/mL Normal . [facility] Comment on above: Result Comment: This test was developed and its performance characteristics determined by [facility]. It has not been cleared or approved by the Food and Drug Administration. Performed at: [facility] [address] [place] [id number] [employer] Professor: John Rao MD, Phone: [phone] PERFORMED BY: [place] [address] PATHOLOGIST BUILDING ENGINEER ADALBERTO MATREL M.D. Performed By: #### V ITD+D2+D3 ####[facility] , aPTT in Platelet poor plasma by Coagulation assayOrdered By: Coco Zamora on 07-01-2024 aPTT Coag (PPP) [Time] Activated partial thromboplastin time (aPTT) in platelet poor plasma by coagulation a High 25.1-36.5 [facility] Comment on above: A hematocrit value g reater than 55% may lead to inaccurate results in coagulation testing. Patients having hematocrit values >55% require a special collection tube for coagulation studies. Please contact the laboratory at [phone] for redraw instructions. aPTT Coag (PPP) [Time] 37.3 s High 25.1-36.5 [facility] Comment on above: A hematocrit value g reater than 55% may lead to inaccurate results in coagulation testing. Patients having hematocrit values >55% require a special collection tube for coagulation studies. Please contact the laboratory at [phone] for redraw instructions. Alanine aminotransferase [En zymatic activity/volume] in Serum or PlasmaOrdered By: Harsha Wren on 06-30-2024 ALT [Catalytic activity/Vol] Alanine aminotransferase [Enzymatic activity/volume] in Serum or Plasma [facility] ALT [Catalytic activity/Vol] 34 U/L Normal [address] Comment on above: Performed By: #### C RP, TSH3, ESR, BMP, BHOB, LIPASE, HEPATIC, SCAN CBC, PT #### [facility] [address] [place] [address] [place] Albumin [Mass/volume] in Ser um or Plasma by Bromocresol green (BCG) dye binding methoOrdered By: Harsha Yolette on 06-30-2024 Albumin BCG dye [Mass/Vol] Albumin [Mass/volume] in Serum or Plasma by Bromocresol green (BCG) dye binding metho Low 3.5-5.7 [facility] Albumin BCG dye [Mass/Vol] 2.4 g/dL Low 3.5-5.7 [facility] Alkaline phosphatase [Enzyma tic activity/volume] in Serum or PlasmaOrdered By: Harsha Wren on 06-30-2024 ALP [Catalytic activity/Vol] Alkaline phosphatase [Enzymatic activity/volume] in Serum or Plasma High 34-104 [facility] ALP [Catalytic activity/Vol] 201 U/L [facility] 34-104 [facility] Comment on above: Performed By: #### C RP, TSH3, ESR, BMP, BHOB, LIPASE, HEPATIC, SCAN CBC, PT #### [facility] [address] Appearance of UrineOrdered B y: Harsha Villaarthy on 06-30-2024 Appearance (U) Urine appearance Clear [facility] Appearance (U) Clear Normal Clear [facility] Comment on above: Order Comment: Name Collection Type:: Newman Catheter Performed By: #### U A ####[facility] Aspartate aminotransferase [ Enzymatic activity/volume] in Serum or PlasmaOrdered By: Harsha Wren on 06-30-2024 AST [Catalytic activity/Vol] Aspartate aminotransferase [Enzymatic activity/volume] in Serum or Plasma High 13-39 [facility] AST [Catalytic activity/Vol] 43 U/L [facility] 13-39 [facility] Comment on above: Performed By: #### C RP, TSH3, ESR, BMP, BHOB, LIPASE, HEPATIC, SCAN CBC, PT #### [facility] [address] Basic Metabolic Panelon 050 Anion gap [Moles/Vol] 11.3 mmol/L Normal 6.0-15.0 [facility] Comment on above: Performed By: #### C RP, TSH3, ESR, BMP, BHOB, LIPASE, HEPATIC, SCAN CBC, PT #### [facility] [address] Calcium [Mass/Vol] 8.0 mg/dL Low 8.6-10.3 [facility] Comment on above: Performed By: #### C RP, TSH3, ESR, BMP, BHOB, LIPASE, HEPATIC, SCAN CBC, PT #### [facility] [address] Chloride [Moles/Vol] 98 mmol/L Normal 98-107 [facility] Comment on above: Performed By: #### C RP, TSH3, ESR, BMP, BHOB, LIPASE, HEPATIC, SCAN CBC, PT #### [address] CO2 [Moles/Vol] 23.2 mmol/L Normal 21.0-31.0 [facility] Comment on above: Performed By: #### C RP, TSH3, ESR, BMP, BHOB, LIPASE, HEPATIC, SCAN CBC, PT #### [facility] [address] Creatinine [Mass/Vol] 0.59 mg/dL Low 0.60-1.20 [facility] Comment on above: Performed By: #### C RP, TSH3, ESR, BMP, BHOB, LIPASE, HEPATIC, SCAN CBC, PT #### [address] Creatinine Clr Calc Pharmacy 85.81 Normal [facility] Comment on above: Performed By: #### C RP, TSH3, ESR, BMP, BHOB, LIPASE, HEPATIC, SCAN CBC, PT #### [place] [address] [place] GFR/1.73 sq M.predicted MDRD (S/P/Bld) [Vol rate/Area] mL/min/{1.73_m2} Normal [facility] Comment on above: Performed By: #### C RP, TSH3, ESR, BMP, BHOB, LIPASE, HEPATIC, SCAN CBC, PT #### [facility] [address] Glucose [Mass/Vol] 605 mg/dL Off scale high 70-100 [facility] Comment on above: Result Comment: Crit ical Result Called to and read back by: YUE MICHEL at: 06/30/2024 21:23:58 by:LFM Random Glucose Reference Range is dependent on time and content of last meal. Glucose of more than 200 mg/dL in a nonstressed, ambulatory subject supports the diagnosis of Diabetes Mellitus. ADA recommended reference range Performed By: #### C RP, TSH3, ESR, BMP, BHOB, LIPASE, HEPATIC, SCAN CBC, PT #### [facility] [address] Potassium [Moles/Vol] 4.5 mmol/L Normal 3.5-5.1 [facility] Comment on above: Performed By: #### C RP, TSH3, ESR, BMP, BHOB, LIPASE, HEPATIC, SCAN CBC, PT #### [facility] [address] Sodium [Moles/Vol] 128 mmol/L Low 136-145 [facility] Comment on above: Performed By: #### C RP, TSH3, ESR, BMP, BHOB, LIPASE, HEPATIC, SCAN CBC, PT #### [facility] [address] Urea nitrogen [Mass/Vol] 10 mg/dL Normal 7-25 [facility] Comment on above: Performed By: #### C RP, TSH3, ESR, BMP, BHOB, LIPASE, HEPATIC, SCAN CBC, PT #### [facility] [address] [place] [address] [place] Basophils Auto (Bld) [#/Vol] Ordered By: Harsha Wren on 06-30-2024 Basophils (Bld) [#/Vol] Automated basophil count 0.0-0.2 [facility] Basophils/100 WBC Auto (Bld) Ordered By: Harsha Wren on 06-30-2024 Basophils/100 WBC (Bld) Automated basophil % . [facility] Bilirubin Test strip Ql (U)O rdered By: Harsha Wren on 06-30-2024 Bilirubin Ql (U) Bilirubin.total [Pre sence] in Urine by Test strip Negative [facility] Bilirubin Ql (U) Negative Negative [facility] Bilirubin.direct [Mass/volum e] in Serum or PlasmaOrdered By: Harsha Wren on 06-30-2024 Bilirubin.direct [Mass/Vol] Bilirubin.direct [Mass/volume] in Serum or Plasma High 0.03-0.18 [facility] Bilirubin.direct [Mass/Vol] 0.50 mg/dL High 0.03-0.18 [facility] Bilirubin.total [Mass/volume ] in Serum or PlasmaOrdered By: Harsha Wren on 06-30-2024 Bilirubin [Mass/Vol] Bilirubin.total [Mass/volume] in Serum or Plasma High 0.3-1.0 [facility] Bilirubin [Mass/Vol] 1.2 mg/dL High 0.3-1.0 [facility] Comment on above: Performed By: #### C RP, TSH3, ESR, BMP, BHOB, LIPASE, HEPATIC, SCAN CBC, PT #### [address] cervical spine wo conon 0 06-30-2024 CT cervical spine wo con [facility] [address] [place] [address] [place] [address] CT Scan Report Signed Patient: Teresa Lyle MR#: [id number] : 1960 Acct:[id number] Age/Sex: 64 / F ADM Date: 06/30/24 Loc: ER Room: Type: [facility] ER Attending Dr: Copies to: Harsha Wren DO Ordering Provider: Harsha Wren DO Date of Service: 06/30/24 CT/CT cervical spine wo con: r/o fx CT CERVICAL SPINE WITHOUT CONTRAST WITH 3D RECONSTRUCTIONS: CLINICAL HISTORY: Fell down 3 steps, right hip pain COMPARISON: None TECHNIQUE: Spiral axial unenhanced images were obtained through the cervical spine. Sagittal, coronal and 3D volume-rendered reconstructions were also reviewed. This CT exam was performed using one or more following dose reduction techniques: Automated exposure control, adjustment of the mA and/or kV according to patient size, or use of iterative reconstruction technique. FINDINGS: No fracture malalignment. Mild multilevel degenerative changes with intervertebral space narrowing greatest C5-C6. Overall mild multilevel facet arthropathy. Mild dextrocurvature. Lung apices are grossly clear. No prevertebral soft tissue swelling CT/CT cervical spine wo con IMPRESSION: NO CERVICAL SPINE FRACTURE Impression dictated by: Navarro Lange M.D. 06/30/2024 8:34 PM Dictation Location: [place] [address] Transcribed By: [facility] 06/30/242033 Dictated By: Navarro Lange MD 06/30/242030 Signed By: 06/30/242033 Normal [facility] CT head/brain wo conon 06-30 CT head/brain wo con [facility] [place] [address] CT Scan Report Signed Patient: Teresa Lyle MR#: [id number] : 1960 Acct:[id number] Age/Sex: 64 / F ADM Date: 06/30/24 Loc: ER Room: Type: PRE ER Attending Dr: Copies to: Harsha Wren DO Ordering Provider: Harsha Wren DO Date of Service: 06/30/24 CT/CT head/brain wo con: r/o ich CT BRAIN WITHOUT CONTRAST: CLINICAL HISTORY: Fell down 3 steps, right-sided hip pain COMPARISON: None TECHNIQUE: Contiguous axial unenhanced images were obtained through the brain. This CT exam was performed using one or more following dose reduction techniques: Automated exposure control, adjustment of the mA and/or kV according to patient size, or use of iterative reconstruction technique. FINDINGS: There is no evidence of midline shift, intra or extra-axial fluid collection, hemorrhage or CT evidence of large vascular distribution stroke. There are intracranial vascular calc ifications Visualized intraorbital contents appear unremarkable. Mild ethmoid sinus mucoperiosteal thickening The surrounding soft tissues are normal. CT/CT head/brain wo con IMPRESSION: NO ACUTE INTRACRANIAL ABNORMALITY. Impression dictated by: Navarro Lange M.D. 06/30/2024 8:22 PM Dictation Location: [facility]- Transcribed By: [place] 06/30/242021 Dictated By: Navarro Lange MD 06/30/242016 Signed By: 06/30/242021 Normal [facility] Calcium [Mass/volume] in Ser um or PlasmaOrdered By: Harsha Wren on 06-30-2024 Calcium [Mass/Vol] Calcium [Mass/volume ] in Serum or Plasma Low 8.6-10.3 [facility] Carbon dioxide, total [Moles /volume] in Serum or PlasmaOrdered By: Harsha Wren on 06-30-2024 CO2 [Moles/Vol] Carbon dioxide, tota l [Moles/volume] in Serum or Plasma 21.0-31.0 [facility] Chloride [Moles/volume] in S michael or PlasmaOrdered By: Harsha Wren on 06-30-2024 Chloride [Moles/Vol] Chloride [Moles/vol ume] in Serum or Plasma 98-107 [facility] Color Auto (U)Ordered By: Felicity Wren on 06-30-2024 Color (U) Color of Urine by Auto [facility] Color of Urine by AutoOrdere d By: Harsha Wren on 06-30-2024 Color (U) Light-yellow Normal Yellow [facility] Comment on above: Order Comment: Name Collection Type:: Newman Catheter Performed By: #### U A ####[facility] [place] [id number] [facility] Complete Blood Count Auto Di ffon 06-30-2024 Basophils (Bld) [#/Vol] 0.1 10*3/uL Normal 0.0-0.2 [facility] Comment on above: Result Comment: PERF ORMED BY: [facility] [address] [place] [id number] PATHOLOGIST BUILDING ENGINEER ADALBERTO MARTEL M.D. Performed By: #### C RP, TSH3, ESR, BMP, BHOB, LIPASE, HEPATIC, SCAN CBC, PT #### [address] Basophils/100 WBC (Bld) 1.1 % Normal . [facility] Comment on above: Performed By: #### C RP, TSH3, ESR, BMP, BHOB, LIPASE, HEPATIC, SCAN CBC, PT #### [address] Eosinophils (Bld) [#/Vol] 0.1 10*3/uL Normal 0.0-0.45 [facility] Comment on above: Performed By: #### C RP, TSH3, ESR, BMP, BHOB, LIPASE, HEPATIC, SCAN CBC, PT #### [address] Eosinophils/100 WBC (Bld) 1.0 % Normal . [facility] Comment on above: Performed By: #### C RP, TSH3, ESR, BMP, BHOB, LIPASE, HEPATIC, SCAN CBC, PT #### [address] Erythrocyte distribution width (RBC) [Ratio] 22.6 % High 11.9-15.3 [facility] Comment on above: Performed By: #### C RP, TSH3, ESR, BMP, BHOB, LIPASE, HEPATIC, SCAN CBC, PT #### [address] Hematocrit (Bld) [Volume fraction] 35.1 % Normal 34.0-46.4 [facility] Comment on above: Performed By: #### C RP, TSH3, ESR, BMP, BHOB, LIPASE, HEPATIC, SCAN CBC, PT #### [address] Hemoglobin (Bld) [Mass/Vol] 11.0 g/dL Low 11.8-15.4 [facility] Comment on above: Performed By: #### C RP, TSH3, ESR, BMP, BHOB, LIPASE, HEPATIC, SCAN CBC, PT #### [address] Lymphocytes (Bld) [#/Vol] 0.7 10*3/uL Low 1.00-4.8 [facility] Comment on above: Performed By: #### C RP, TSH3, ESR, BMP, BHOB, LIPASE, HEPATIC, SCAN CBC, PT #### [address] Lymphocytes/100 WBC (Bld) 13.2 % Normal . [facility] Comment on above: Performed By: #### C RP, TSH3, ESR, BMP, BHOB, LIPASE, HEPATIC, SCAN CBC, PT #### [address] MCH (RBC) [Entitic mass] 23.4 pg Low 24.7-34.3 [facility] Comment on above: Performed By: #### C RP, TSH3, ESR, BMP, BHOB, LIPASE, HEPATIC, SCAN CBC, PT #### [address] MCV (RBC) [Entitic vol] 75.1 fL Low 80-100 [facility] Comment on above: Performed By: #### C RP, TSH3, ESR, BMP, BHOB, LIPASE, HEPATIC, SCAN CBC, PT #### [address] Mean Corpuscular HGB Conc 31.2 g/dL Low 32.0-35.0 [facility] Comment on above: Performed By: #### C RP, TSH3, ESR, BMP, BHOB, LIPASE, HEPATIC, SCAN CBC, PT #### [address] Monocytes (Bld) [#/Vol] 0.5 10*3/uL Normal 0.0-0.8 [facility] Comment on above: Performed By: #### C RP, TSH3, ESR, BMP, BHOB, LIPASE, HEPATIC, SCAN CBC, PT #### [address] Monocytes/100 WBC (Bld) 20.23 % High 0.00-20.00 [facility] Comment on above: Result Comment: For adults in ED, MDW > 20.0 may be associated with a higher risk of sepsis during the first 12 hrs of hospital admission Performed By: #### C RP, TSH3, ESR, BMP, BHOB, LIPASE, HEPATIC, SCAN CBC, PT #### [address] Monocytes/100 WBC (Bld) 10.2 % Normal . [facility] Comment on above: Performed By: #### C RP, TSH3, ESR, BMP, BHOB, LIPASE, HEPATIC, SCAN CBC, PT #### [address] Neutrophils (Bld) [#/Vol] 3.9 10*3/uL Normal 1.8-7.7 [facility] Comment on above: Performed By: #### C RP, TSH3, ESR, BMP, BHOB, LIPASE, HEPATIC, SCAN CBC, PT #### [address] Neutrophils/100 WBC (Bld) 74.5 % Normal . [facility] Comment on above: Performed By: #### C RP, TSH3, ESR, BMP, BHOB, LIPASE, HEPATIC, SCAN CBC, PT #### [address] NRBC% 0.0 /100{WBC} Normal 0-0.5 [facility] Comment on above: Performed By: #### C RP, TSH3, ESR, BMP, BHOB, LIPASE, HEPATIC, SCAN CBC, PT #### [address] Platelet mean volume (Bld) [Entitic vol] 8.8 fL Normal 6.3-10.7 [facility] Comment on above: Performed By: #### C RP, TSH3, ESR, BMP, BHOB, LIPASE, HEPATIC, SCAN CBC, PT #### [address] Platelets (Bld) [#/Vol] 65 10*3/uL Low 150-450 [facility] Comment on above: Performed By: #### C RP, TSH3, ESR, BMP, BHOB, LIPASE, HEPATIC, SCAN CBC, PT #### [facility] [address] [place] [id number] [facility] RBC (Bld) [#/Vol] 4.68 10*6/uL Normal 3.60-5.00 [facility] Comment on above: Performed By: #### C RP, TSH3, ESR, BMP, BHOB, LIPASE, HEPATIC, SCAN CBC, PT #### [facility] [address] [place] [id number] [facility] WBC (Bld) [#/Vol] 5.2 10*3/uL Normal 3.8-11.6 [facility] Comment on above: Performed By: #### C RP, TSH3, ESR, BMP, BHOB, LIPASE, HEPATIC, SCAN CBC, PT #### [facility] [address] [place] [phone] [facility] Creatinine [Mass/volume] in Serum or PlasmaOrdered By: Harsha Wren on 06-30-2024 Creatinine [Mass/Vol] Creatinine [Mass/v olume] in Serum or Plasma Low 0.60-1.20 [facility] ECG 12 lead ECGon 06-30-2024 ECG 12 lead ECG [facility] [address] [place] [address] [place] [address] Electrocardiograph Report Signed Patient: Teresa Lyle MR#: [id number] : 1960 Acct:[id number] Age/Sex: 64 / F ADM Date: 06/30/24 Loc: Room: 6D2719-6 Type: ADM IN Attending Dr: Digna Roberto MD Ordering Provider: Harsha Wren DO Date of Service: 06/30/2404/25/1924 ECG/ECG 12 lead ECG: Extremity Injury, Lower Copies to: Test Reason : Blood Pressure : 157/69 mmHG Vent. Rate : 85 BPM Atrial Rate : 85 BPM P-R Int : 132 ms QRS Dur : 80 ms QT Int : 366 ms P-R-T Axes : 64 105 51 degrees QTcB Int : 435 ms Normal sinus rhythm Rightward axis Confirmed by Harsha Wren DO ([id number]) on 07/02/2024 1:07:04 AM Referred By: Electronically Signed By: Harsha Wren DO Transcribed By: MUS Signed By Harsha Wren DO 0107 Normal [facility] Eosinophils Auto (Bld) [#/Vo l]Ordered By: Harsha Wren on 06-30-2024 Eosinophils (Bld) [#/Vol] Automated eosinophil count 0.0-0.45 [facility] Eosinophils/100 WBC Auto (Bl d)Ordered By: Harsha Wren on 06-30-2024 Eosinophils/100 WBC (Bld) Automated eosinophil % . [facility] Erythrocyte distribution wid th Auto (RBC) [Ratio]Ordered By: Harsha Wren on 06-30-2024 Erythrocyte distribution width (RBC) [Ratio] Erythrocyte distribution width [Ratio] by Automated count High 11.9-15.3 [facility] Globulin Calc (S) [Mass/Vol] Ordered By: Harsha Wren on 06-30-2024 Globulin (S) [Mass/Vol] Serum globulin measurement by calculation (mass/volume) [facility] Glucose Glucometer (BldC) [M ass/Vol]Ordered By: Sarah Helm on 06-30-2024 Glucose [Mass/Vol] Capillary blood gluc ose measurement by glucometer (mass/volume) Critically high [facility] Comment on above: Random Glucose Refer ence Range is dependent on time and content of last meal. Glucose of more than 200 mg/dL in a nonstressed, ambulatory subject supports the diagnosis of Diabetes Mellitus. Glucose Poct Glucometerson 0 06-30-2024 Commemt1 Normal [facility] Comment on above: Result Comment: Glu2 : WILL NOTIFY DR/RN Performed By: #### C RP, TSH3, ESR, BMP, BHOB, LIPASE, HEPATIC, SCAN CBC, PT #### [facility] [address] [place] [address] Commemt2 Cleaned Meter Normal [facility] Comment on above: Result Comment: PERF ORMED BY: [address] [place] [address] PATHOLOGIST BUILDING ENGINEER ADALBERTO MARTEL M.D. Performed By: #### C RP, TSH3, ESR, BMP, BHOB, LIPASE, HEPATIC, SCAN CBC, PT #### [facility] [address] [place] [address] [place] Glucose [Mass/Vol] 408 mg/dL Off scale high Th [facility] Comment on above: Result Comment: [place] Glucose Reference Range is dependent on time and content of last meal. Glucose of more than 200 mg/dL in a nonstressed, ambulatory subject supports the diagnosis of Diabetes Mellitus. Performed By: #### C RP, TSH3, ESR, BMP, BHOB, LIPASE, HEPATIC, SCAN CBC, PT #### [facility] [address] [place] [address] [place] Glucose [Mass/volume] in Ser um or PlasmaOrdered By: Harsha Wren on 06-30-2024 Glucose [Mass/Vol] Glucose [Mass/volume ] in Serum or Plasma Critically high 70-100 [facility] Comment on above: Critical Result Call ed to and read back by: YUE MICHEL at: 06/30/2024 21:23:58 by:[email or web address] recommended reference rangeRandom Glucose Reference Range is dependent on time and content of last meal. Glucose of more than 200 mg/dL in a nonstressed, ambulatory subject supports the diagnosis of Diabetes Mellitus. Glucose [Mass/volume] in Uri ne by Test stripOrdered By: Harsha Wren on 06-30-2024 Glucose Test strip (U) [Mass/Vol] Glucose [Mass/volume] in Urine by Test strip [facility] Normal [facility] Glucose Test strip (U) [Mass/Vol] >=1000 mg/dL [facility] Hematocrit Auto (Bld) [Volum e fraction]Ordered By: Harsha Wren on 06-30-2024 Hematocrit (Bld) [Volume fraction] Hematocrit [Volume Fraction] of Blood by Automated count 34.0-46.4 [facility] Hemoglobin Test strip Ql (U) Ordered By: Harsha Wren on 06-30-2024 Hemoglobin Ql (U) Hemoglobin [Presence ] in Urine by Test strip Negative [facility] Hemoglobin Ql (U) Negative Negative [facility] Hemoglobin [Mass/volume] in BloodOrdered By: Harsha Wren on 06-30-2024 Hemoglobin (Bld) [Mass/Vol] Hemoglobin [Mass/volume] in Blood Low 11.8-15.4 [facility] Hepatic Panelon 06-30-2024 Albumin [Mass/Vol] 2.4 g/dL Low 3.5-5.7 [facility] Comment on above: Performed By: #### C RP, TSH3, ESR, BMP, BHOB, LIPASE, HEPATIC, SCAN CBC, PT #### [facility] [address] Bilirubin,Indirect 0.7 mg/dL Normal [facility] Comment on above: Performed By: #### C RP, TSH3, ESR, BMP, BHOB, LIPASE, HEPATIC, SCAN CBC, PT #### [facility] [address] Bilirubin.indirect [Mass/Vol] 0.50 mg/dL High 0.03-0.18 [facility] Comment on above: Performed By: #### C RP, TSH3, ESR, BMP, BHOB, LIPASE, HEPATIC, SCAN CBC, PT #### [facility] [address] Ketones Test strip Ql (U)Ord ered By: Harsha Wren on 06-30-2024 Ketones Ql (U) Ketones [Presence] i n Urine by Test strip Negative [facility] Ketones [Presence] in Urine by Test stripOrdered By: Harsha Wren on 06-30-2024 Ketones Ql (U) Negative Normal Negative [facility] Comment on above: Order Comment: Name Collection Type:: Newman Catheter Performed By: #### U A ####[facility] Leukocyte esterase [Presence ] in Urine by Test stripOrdered By: Harsha Wren on 06-30-2024 Leukocyte esterase Test strip Ql (U) Leukocyte esterase [Presence] in Urine by Test strip Negative [facility] Leukocyte esterase Test strip Ql (U) Negative Normal Negative [facility] Comment on above: Order Comment: Name Collection Type:: Newman Catheter Performed By: #### U A ####[facility] [address] Leukocytes [#/volume] correc lyly for nucleated erythrocytes in Blood by Automated counOrdered By: Harsha Wren on 06-30-2024 WBC corrected for nucl RBC Auto (Bld) [#/Vol] Leukocytes [#/volume] corrected for nucleated erythrocytes in Blood by Automated coun 3.8-11.6 [facility] Lipase [Enzymatic activity/v olume] in Serum or PlasmaOrdered By: Harsha Wren on 06-30-2024 Lipase [Catalytic activity/Vol] Lipase [Enzymatic activity/volume] in Serum or Plasma 11.0-82.0 [facility] Lipase [Catalytic activity/Vol] 58.0 U/L Normal 11.0-82.0 [facility] Comment on above: Result Comment: PERF ORMED BY: [facility] [address] [place] [address] PATHOLOGIST BUILDING ENGINEER ADALBERTO MARTEL M.D. Performed By: #### C RP, TSH3, ESR, BMP, BHOB, LIPASE, HEPATIC, SCAN CBC, PT #### [facility] [address] Lymphocytes Auto (Bld) [#/Vo l]Ordered By: Harsha Wren on 06-30-2024 Lymphocytes (Bld) [#/Vol] Lymphocytes [#/volume] in Blood by Automated count Low 1.00-4.8 [facility] Lymphocytes/100 WBC Auto (Bl d)Ordered By: Harsha Wren on 06-30-2024 Lymphocytes/100 WBC (Bld) Lymphocytes/100 leukocytes in Blood by Automated count . [facility] MCH Auto (RBC) [Entitic mass ]Ordered By: Harsha Wren on 06-30-2024 MCH (RBC) [Entitic mass] MCH [Entitic mass] by Automated count Low 24.7-34.3 [facility] MCHC Auto (RBC) [Mass/Vol]Or dered By: Harsha Wren on 06-30-2024 MCHC (RBC) [Mass/Vol] MCHC [Mass/volume] by Automated count Low 32.0-35.0 [facility] MCV Auto (RBC) [Entitic vol] Ordered By: Harsha Wren on 06-30-2024 MCV (RBC) [Entitic vol] MCV [Entitic volume] by Automated count Low 80-100 [facility] Monocyte distribution width [Entitic volume] in Blood by AutomatedOrdered By: Harsha Wren on 06-30-2024 Monocyte distribution width Auto (Bld) [Entitic vol] Monocyte distribution width [Entitic volume] in Blood by Automated High 0.00-20.00 [facility] Comment on above: For adults in ED, MD W > 20.0 may be associated with a higher risk of sepsis during the first 12 hrs of hospital admission Monocyte distribution width Auto (Bld) [Entitic vol] 20.23 % High 0.00-20.00 [facility] Comment on above: For adults in ED, MD W > 20.0 may be associated with a higher risk of sepsis during the first 12 hrs of hospital admission Monocytes Auto (Bld) [#/Vol] Ordered By: Harsha Wren on 06-30-2024 Monocytes (Bld) [#/Vol] Automated blood monocyte count 0.0-0.8 [facility] Monocytes/100 WBC Auto (Bld) Ordered By: Harsha Wren on 06-30-2024 Monocytes/100 WBC (Bld) Automated monocyte % . [facility] Neutrophils Auto (Bld) [#/Vo l]Ordered By: Harsha Wren on 06-30-2024 Neutrophils (Bld) [#/Vol] Neutrophils [#/volume] in Blood by Automated count 1.8-7.7 [facility] Neutrophils/100 WBC Auto (Bl d)Ordered By: Harsha Wren on 06-30-2024 Neutrophils/100 WBC (Bld) Automated neutrophil % . [facility] Nitrite Test strip Ql (U)Ord ered By: Harsha Wren on 06-30-2024 Nitrite Ql (U) Nitrite [Presence] i n Urine by Test strip Negative [facility] Nitrite Ql (U) Negative Negative [facility] No Panel InformationOrdered By: Sarah Helm on 06-30-2024 Bedside Glucose #2 Comment Cleaned meter [facility] Bedside Glucose Comment See comment [facility] Comment on above: Glu2: WILL NOTIFY DR /RN No Panel InformationOrdered By: Harsha Wren on 06-30-2024 Estimated GFR (CKD-EPI) > 60.0 mL/Min [facility] Creatinine Clearance (Chem 85.81 [facility] Nucleated erythrocytes [Pres ence] in Blood by Automated countOrdered By: Harsha Wren on 06-30-2024 Nucleated RBC Auto Ql (Bld) Nucleated erythrocytes [Presence] in Blood by Automated count 0-0.5 [facility] Platelet mean volume Auto (B ld) [Entitic vol]Ordered By: Harsha Wren on 06-30-2024 Platelet mean volume (Bld) [Entitic vol] Platelet mean volume [Entitic volume] in Blood by Automated count 6.3-10.7 [facility] Platelets Auto (Bld) [#/Vol] Ordered By: Harsha Wren on 06-30-2024 Platelets (Bld) [#/Vol] Platelets [#/volume] in Blood by Automated count Low 150-450 [facility] Potassium [Moles/volume] in Serum or PlasmaOrdered By: Harsha Wren on 06-30-2024 Potassium [Moles/Vol] Potassium [Moles/v olume] in Serum or Plasma 3.5-5.1 [facility] Protein Test strip (U) [Mass /Vol]Ordered By: Harsha Wren on 06-30-2024 Protein (U) [Mass/Vol] Protein [Mass/volume] in Urine by Test strip Negative [facility] Protein (U) [Mass/Vol] Negative Negative [facility] Protein [Mass/volume] in Ser um or PlasmaOrdered By: Harsha Wren on 06-30-2024 Protein [Mass/Vol] Protein [Mass/volume ] in Serum or Plasma 6.4-8.9 [facility] Protein [Mass/Vol] 6.5 g/dL Normal 6.4-8.9 [facility] Comment on above: Performed By: #### C RP, TSH3, ESR, BMP, BHOB, LIPASE, HEPATIC, SCAN CBC, PT #### [facility] [address] RBC Auto (Bld) [#/Vol]Ordere d By: Harsha Wren on 06-30-2024 RBC (Bld) [#/Vol] Erythrocytes [#/volu me] in Blood by Automated count 3.60-5.00 [facility] Serum globulin measurement b y calculation (mass/volume)Ordered By: Harsha Wren on 06-30-2024 Globulin (S) [Mass/Vol] 4.1 g/dL Normal [facility] Comment on above: Performed By: #### C RP, TSH3, ESR, BMP, BHOB, LIPASE, HEPATIC, SCAN CBC, PT #### [address] Serum or plasma albumin/glob ulin mass ratioOrdered By: Harsha Wren on 06-30-2024 Albumin/Globulin [Mass ratio] Serum or plasma albumin/globulin mass ratio [facility] Albumin/Globulin [Mass ratio] 0.6 {ratio} Normal [facility] Comment on above: Performed By: #### C RP, TSH3, ESR, BMP, BHOB, LIPASE, HEPATIC, SCAN CBC, PT #### [facility] [address] [place] [address] Serum or plasma anion gap de terminationOrdered By: Harsha Wren on 06-30-2024 Anion gap [Moles/Vol] Serum or plasma an ion gap determination 6.0-15.0 [facility] Serum or plasma non-glucuron idated bilirubin measurement (mass/volume)Ordered By: Harsha Wren on 06-30-2024 Bilirubin.indirect [Mass/Vol] Serum or plasma non-glucuronidated bilirubin measurement (mass/volume) [facility] Bilirubin.indirect [Mass/Vol] 0.7 mg/dL [facility] Sodium [Moles/volume] in Ser um or PlasmaOrdered By: Harsha Wren on 06-30-2024 Sodium [Moles/Vol] Sodium [Moles/volume ] in Serum or Plasma Low 136-145 [facility] Specific gravity Test strip (U) [Rel density]Ordered By: Harsha Wren on 06-30-2024 Specific gravity (U) [Rel density] Specific gravity of Urine by Test strip 1.001-1.03 0 [facility] Specific gravity (U) [Rel density] 1.027 1.001-1.03 0 [facility] Urea nitrogen [Mass/volume] in Serum or PlasmaOrdered By: Harsha Wren on 06-30-2024 Urea nitrogen [Mass/Vol] Urea nitrogen [Mass/volume] in Serum or Plasma 7 [facility] Urinalysison 06-30-2024 Bilirubin,Urine Negative Normal Negative [facility] Comment on above: Order Comment: Name Collection Type:: Newman Catheter Performed By: #### U A ####[place] [address] [place] [address] [facility] Glucose Ql (U) >= High Normal [facility] Comment on above: Order Comment: Name Collection Type:: Newman Catheter Performed By: #### U A ####[address] [address] [facility] Nitrite,Urine Negative Normal Negative [facility] Comment on above: Order Comment: Name Collection Type:: Newman Catheter Performed By: #### U A ####[address] [address] [facility] Occult Blood,Urine Negative Normal Negative [facility] Comment on above: Order Comment: Name Collection Type:: Newman Catheter Result Comment: PERF ORMED BY: [facility] [address] [place] [address] PATHOLOGIST BUILDING ENGINEER ADALBERTO MARTEL M.D. Performed By: #### U A ####[address] [address] [facility] Protein,Urine Negative Normal Negative [facility] Comment on above: Order Comment: Name Collection Type:: Newman Catheter Performed By: #### U A ####[address] [address] [facility] Specificy [place],Urine 1.027 Normal 1.001-1.03 0 [facility] Comment on above: Order Comment: Name Collection Type:: Newman Catheter Performed By: #### U A ####[place] [address] Urobilinogen,Urine Normal Normal Normal [facility] Comment on above: Order Comment: Name Collection Type:: Newman Catheter Performed By: #### U A ####[place] [address] [place] [id number] [facility] Urobilinogen Test strip (U) [Mass/Vol]Ordered By: Harsha Wren on 06-30-2024 Urobilinogen (U) [Mass/Vol] Urobilinogen [Mass/volume] in Urine by Test strip Normal [facility] Urobilinogen (U) [Mass/Vol] Normal mg/dL Normal [facility] WBC Auto (Bld) [#/Vol]Ordere d By: Harsha Wren on 06-30-2024 WBC (Bld) [#/Vol] Leukocytes [#/volume ] in Blood by Automated count 3.8-11.6 [facility] X-ray reportOrdered By: Farrukh Lange on 06-30-2024 Study report [place] [address] XRay Report Signed Patient: Teresa Lyle MR#: [id number] : 1960 Acct:[id number] Age/Sex: 64 / F ADM Date: Loc: ER Room: Type: [facility] ER Attending Dr: Copies to: Harsha Wren DO~ Ordering Provider: Harsha Wren DO Date of Service: 06/30/24 XR/XR chest 1V portable: Extremity Injury, Lower SINGLE VIEW CHEST CLINICAL HISTORY: Fall on stairs, pain right leg, history of the leg in external rotation COMPARISON: None FINDINGS: Unremarkable cardiomediastinal silhouette.. Suspected TIPS. Surgical clips right upper quadrant. Lungs are clear. No effusion or pneumothorax XR/XR chest 1V portable IMPRESSION: NO ACUTE FINDINGS Impression dictated by: Navarro Lange M.D. 06/30/2024 9:07 PM Dictation Location: RADIO-PC-29 Transcribed By: CHRISTIN 06/30/242106 Dictated By: Navarro Lange MD 06/30/242104 Signed By: 06/30/242106 [facility] Work Phone: Study report [place] [address] XRay Report Signed Patient: Teresa Lyle MR#: [id number] : 1960 Acct:[id number] Age/Sex: 64 / F ADM Date: 5 Loc: ER Room: Type: [facility] ER Attending Dr: Copies to: Harsha Wren DO~ Ordering Provider: Harsha Wren DO Date of Service: 06/30/24 XR/XR ankle RT min 3V*: Extremity Injury, Lower ([id number]) XR/XR femur RT 2V*: Extremity Injury, Lower ([id number]) XR/XR pelvis 1-2V: Extremity Injury, Lower ([id number]) XR/XR tibia fibula RT 2V*: Extremity Injury, Lower AP PELVIS/2 VIEWS OF THE FEMUR, SINGLE LATERAL VIEW OF THE TIBIA-FIBULA AND 2 VIEWS OF THE RIGHT ANKLE: CLINICAL HISTORY: Fell down 3 steps, right hip pain COMPARISON: None FINDINGS: Pelvis is intact. Left hip and proximal femur intact. There is a right sided intertrochanteric hip fracture. Avulsion of the lesser trochanter noted. . 90 degrees of angulation noted. The remainder of the right femur is intact. There are vascular calcifications. No hip dislocation. Degenerative changes at the level of the knee. Degenerative changes at level of the ankle. Otherwise no fractures involving the tibia fibula on the single lateral view XR/XR pelvis 1-2V IMPRESSION: RIGHT-SIDED INTERTROCHANTERIC HIP FRACTURE WITH 90 DEGREES ANGULATION. NO PELVIC FRACTURE, ADDITIONAL RIGHT FEMUR FRACTURE, RIGHT ANKLE FRACTURE, OR RIGHT TIBIA-FIBULA FRACTURE IDENTIFIED. Impression dictated by: Navarro Lange M.D. 06/30/2024 8:31 PM Dictation Location: RADIO-PC-29 Transcribed By: CHRISTIN 06/30/242030 Dictated By: Navarro Lange MD 06/30/242025 Signed By: 06/30/242030 [facility] Work Phone: XR ankle RT min 3V*on 2024 XR ankle RT min 3V* [facility] [place] [address] [place] [address] XRay Report Signed Patient: Teresa Lyle MR#: [id number] : 1960 Acct:[id number] Age/Sex: 64 / F ADM Date: 06/30/24 Loc: ER Room: Type: [facility] ER Attending Dr: Copies to: Harsha Wren DO Ordering Provider: Harsha Wren DO Date of Service: 06/30/24 XR/XR ankle RT min 3V*: Extremity Injury, Lower ([id number]) XR/XR femur RT 2V*: Extremity Injury, Lower ([id number]) XR/XR pelvis 1-2V: Extremity Injury, Lower ([id number]) XR/XR tibia fibula RT 2V*: Extremity Injury, Lower AP PELVIS/2 VIEWS OF THE FEMUR, SINGLE LATERAL VIEW OF THE TIBIA-FIBULA AND 2 VIEWS OF THE RIGHT ANKLE: CLINICAL HISTORY: Fell down 3 steps, right hip pain COMPARISON: None FINDINGS: Pelvis is intact. Left hip and proximal femur intact. There is a right sided intertrochanteric hip fracture. Avulsion of the lesser trochanter noted. . 90 degrees of angulation noted. The remainder of the right femur is intact. There are vascular calcifications. No hip dislocation. Degenerative changes at the level of the knee. Degenerative changes at level of the ankle. Otherwise no fractures involving the tibia fibula on the single lateral view XR/XR pelvis 1-2V IMPRESSION: RIGHT-SIDED INTERTROCHANTERIC HIP FRACTURE WITH 90 DEGREES ANGULATION. NO PELVIC FRACTURE, ADDITIONAL RIGHT FEMUR FRACTURE, RIGHT ANKLE FRACTURE, OR RIGHT TIBIA-FIBULA FRACTURE IDENTIFIED. Impression dictated by: Navarro Lange M.D. 06/30/2024 8:31 PM Dictation Location: RADIO-PC-29 Transcribed By: CHRISTIN 06/30/242030 Dictated By: Navarro Lange MD 06/30/242025 Signed By: 06/30/242030 Normal [facility] XR chest 1V portableon 06-30 XR chest 1V portable [facility] [place] [address] XRay Report Signed Patient: Teresa Lyle MR#: [id number] : 1960 Acct:[id number] Age/Sex: 64 / F ADM Date: 06/30/24 Loc: ER Room: Type: [facility] ER Attending Dr: Copies to: Harsha Wren DO Ordering Provider: Harsha Wren DO Date of Service: 06/30/24 XR/XR chest 1V portable: Extremity Injury, Lower SINGLE VIEW CHEST CLINICAL HISTORY: Fall on stairs, pain right leg, history of the leg in external rotation COMPARISON: None FINDINGS: Unremarkable cardiomediastinal silhouette.. Suspected TIPS. Surgical clips right upper quadrant. Lungs are clear. No effusion or pneumothorax XR/XR chest 1V portable IMPRESSION: NO ACUTE FINDINGS Impression dictated by: Navarro Lange M.D. 06/30/2024 9:07 PM Dictation Location: RADIO-PC-29 Transcribed By: [facility] 06/30/242106 Dictated By: Navarro Lange MD 06/30/242104 Signed By: 06/30/242106 Normal [facility] pH Test strip (U)Ordered By: Harsha Wren on 06-30-2024 pH (U) pH of Urine by Test strip 5.0-9.0 [facility] pH of Urine by Test stripOrd ered By: Harsha Wren on 06-30-2024 pH (U) 6.5 [pH] Normal 5.0-9.0 [facility] Comment on above: Order Comment: Name Collection Type:: Newman Catheter Performed By: #### U A ####[facility] [id number] [place] [address] [place] Reminderson 04-24-2024 Reminders Reminders From: Chapis Dumont To: B - Clinical; Sent: 04/21/2024 08:25:37 EST Show up: 04/21/2024 08:23:00 EST Subject: Ambulatory Reminder Due Date/Time: 04/22/2024 08:22:00 EST she is anemic and her diabetes is out of control. HGBA1C is 11. Is she taking any medication for her diabetes? It says joanne on her list, but I do not see where she has filled it. I will send in iron supplements and medication for her diabetes as soon as I find out what, if anything, she is taking Results: Date Result Name Ind Value Ref Range 04/18/2024 15:15 WBC 8.9 E9/L (4.0 - 11.0) 04/18/2024 15:15 RBC 4.9 E12/L (4.3 - 5.9) 04/18/2024 15:15 HGB ((L)) 11.0 gm/dL (12.0 - 16.0) 04/18/2024 15:15 Hct 35.4 % (34.0 - 46.0) 04/18/2024 15:15 MCV ((L)) 72.5 fL (80.0 - 100.0) 04/18/2024 15:15 MCH ((L)) 22.6 pg (27.0 - 34.0) 04/18/2024 15:15 MCHC ((L)) 31.1 gm/dL (31.4 - 36.0) 04/18/2024 15:15 RDW ((H)) 23.8 % (10.9 - 14.2) 04/18/2024 15:15 Platelet ((L)) 89.0 E9/L (150.0 - 500.0) 04/18/2024 15:15 MPV 9.8 fL (6.4 - 10.8) 04/18/2024 15:15 Neutro Auto ((H)) 84.4 % (36.0 - 75.0) 04/18/2024 15:15 Lymph Auto ((L)) 10.0 % (14.0 - 50.0) 04/18/2024 15:15 Richardson Auto 4.8 % (4.0 - 14.0) 04/18/2024 15:15 Eos Auto 0.2 % (0.0 - 8.0) 04/18/2024 15:15 Basophil Auto 0.6 % (0.0 - 2.0) 04/18/2024 15:15 Neutro Absolute 7.5 E9/L (2.0 - 7.5) 04/18/2024 15:15 Lymph Absolute ((L)) 0.9 E9/L (1.0 - 4.0) 04/18/2024 15:15 Richardson Absolute 0.4 E9/L (0.2 - 1.0) 04/18/2024 15:15 Eos Absolute 0.0 E9/L (0.0 - 0.5) 04/18/2024 15:15 Basophil Absolute 0.0 E9/L (0.0 - 0.2) 04/18/2024 15:15 RBC Morph SEE MORPHOLOGY 04/18/2024 15:15 Microcyte PRESENT 04/18/2024 15:15 Hypochromasia PRESENT 04/18/2024 15:15 Ovalocytes PRESENT 04/18/2024 15:15 Glucose Lvl ((H)) 330 mg/dL (55 - 199) 04/18/2024 15:15 BUN 6 mg/dL (5 - 21) 04/18/2024 15:15 Creatinine 0.5 mg/dL (0.5 - 1.3) 04/18/2024 15:15 eGFR 106 mL/min/1.73 m2 (>=59 - ) 04/18/2024 15:15 BUN/Creat Ratio 12 (10 - 20) 04/18/2024 15:15 Sodium Lvl ((L)) 129 mmol/L (135 - 145) 04/18/2024 15:15 Potassium Lvl 4.8 mmol/L (3.5 - 5.3) 04/18/2024 15:15 Chloride ((L)) 99 mmol/L (101 - 111) 04/18/2024 15:15 CO2 25 mmol/L (21 - 31) 04/18/2024 15:15 AGAP 10 mEq/L (6 - 16) 04/18/2024 15:15 Calcium Lvl ((L)) 7.6 mg/dL (8.9 - 11.1) 04/18/2024 15:15 Alk Phos ((H)) 219 Int._Unit/L (21 - 98) 04/18/2024 15:15 ALT 22 Int._Unit/L (6 - 46) 04/18/2024 15:15 AST 39 Int._Unit/L (5 - 43) 04/18/2024 15:15 Total Protein 7.2 gm/dL (6.0 - 7.8) 04/18/2024 15:15 Albumin Lvl ((L)) 2.5 gm/dL (3.3 - 5.0) 04/18/2024 15:15 Globulin ((H)) 4.7 gm/dL (1.4 - 4.0) 04/18/2024 15:15 A/G Ratio ((L)) 0.5 (1.1 - 2.2) 04/18/2024 15:15 Bili Total ((H)) 2.0 mg/dL (0.0 - 1.1) 04/18/2024 15:15 Hgb A1C % ((H)) 11.8 % ( - <=5.9) 04/18/2024 15:15 Chol ((L)) 86 mg/dL (120 - 200) 04/18/2024 15:15 Trig 69 mg/dL ( - <=149) 04/18/2024 15:15 HDL 26 mg/dL 04/18/2024 15:15 LDL Direct 49 mg/dL ( - <=129) 04/18/2024 15:15 VLDL 14 mg/dL (7 - 40) 04/18/2024 15:15 TSH 1.38 mcIU/mL (0.34 - 5.60) LVM for pt to return call, please advise pt of message below Pt returned call and informed of lab results. Not sure how accurate this information is. Pt seemed to unsure of her answers. She does not check her blood sugars. She states she is taking lantus 30 u daily and another short acting insulin on a sliding scale but does not check her blood sugars( she called it uyen) . She said she takes about 5-6 units in am and if she eats at lunch she will take another 7 units. She states she is due to see her Diabetes provider Ajay Elam and will contact them. From: Cassia French LPN (B - Clinical) To: Chapis Dumont; Sent: 04/24/2024 15:08:40 EST Show up: 04/24/2024 15:08:00 EST Subject: Lab results Normal [facility] CBC w/ Auto Diffon 5 Basophils/100 WBC (Bld) 0.6 % Normal 0.0-2.0 [facility] Comment on above: Performed By: #### 2 [id number] #### [facility] [address] [place] [address] Basophils/Leukocytes Auto (Bld) [Pure # fraction] 0.0 E9/L Normal 0.0-0.2 [facility] Comment on above: Performed By: #### 2 [id number] #### [facility] [address] [place] [address] Eosinophils (Bld) [#/Vol] 0.0 E9/L Normal 0.0-0.5 [facility] Comment on above: Performed By: #### 2 872372 #### [facility] [address] [place] [address] Eosinophils/100 WBC (Bld) 0.2 % Normal 0.0-8.0 [facility] Comment on above: Performed By: #### 2 855951 #### [facility] [address] [place] [address] Erythrocyte distribution width (RBC) [Ratio] 23.8 % High 10.9-14.2 [facility] Comment on above: Performed By: #### 2 100758 #### [facility] [address] [place] [address] Hematocrit (Bld) [Volume fraction] 35.4 % Normal 34.0-46.0 [facility] Comment on above: Performed By: #### 2 116472 #### [facility] [address] [place] [address] Hemoglobin (Bld) [Mass/Vol] 11.0 g/dL Low 12.0-16.0 [facility] Comment on above: Performed By: #### 2 [id number] #### [facility] [address] [place] [address] Hypochromia Auto Ql (Bld) PRESENT Invalid Interpretation Code [facility] Comment on above: Performed By: #### 2 [id number] #### [facility] [address] [place] [address] Lymphocytes (Bld) [#/Vol] 0.9 E9/L Low 1.0-4.0 [facility] Comment on above: Performed By: #### 2 847735 #### [facility] [address] [place] [address] Lymphocytes/100 WBC (Bld) 10.0 % Low 14.0-50.0 [facility] Comment on above: Performed By: #### 2 444593 #### [facility] [address] [place] [address] MCH (RBC) [Entitic mass] 22.6 pg Low 27.0-34.0 [facility] Comment on above: Performed By: #### 2 [id number] #### [facility] [address] [place] [address] MCHC (RBC) [Mass/Vol] 31.1 g/dL Low 31.4-36.0 [facility] Comment on above: Performed By: #### 2 363459 #### [facility] [address] [place] [address] MCV (RBC) [Entitic vol] 72.5 fL Low 80.0-100.0 [facility] Comment on above: Performed By: #### 2 657371 #### [facility] [address] [place] [address] Microcytes Ql (Bld) PRESENT Invalid Interpretation Code [facility] Comment on above: Performed By: #### 2 914202 #### [facility] [address] [place] [address] Monocytes (Bld) [#/Vol] 0.4 E9/L Normal 0.2-1.0 [facility] Comment on above: Performed By: #### 2 184996 #### [facility] [address] [place] [address] Neutrophils (Bld) [#/Vol] 7.5 E9/L Normal 2.0-7.5 [facility] Comment on above: Performed By: #### 2 125154 #### [facility] [address] [place] [address] Neutrophils/100 WBC (Bld) 84.4 % High 36.0-75.0 [facility] Comment on above: Performed By: #### 2 587215 #### [facility] [address] [place] [address] Ovalocytes LM Ql (Bld) PRESENT Invalid Interpretation Code [facility] Comment on above: Performed By: #### 2 807905 #### [facility] [address] [place] [address] Platelet mean volume (Bld) [Entitic vol] 9.8 fL Normal 6.4-10.8 [facility] Comment on above: Performed By: #### 2 449092 #### [facility] [address] [place] [address] Platelets (Bld) [#/Vol] 89.0 E9/L Low 150.0-500. 0 [facility] Comment on above: Result Comment: Cheryl pheral smear review performed. Performed By: #### 2 103083 #### [facility] [address] [place] [address] RBC (Bld) [#/Vol] 4.9 E12/L Normal 4.3-5.9 [facility] Comment on above: Performed By: #### 2 297807 #### [facility] [address] [place] [address] RBC size Nom (Bld) SEE MORPHOLOGY Invalid Interpretation Code [facility] Comment on above: Performed By: #### 2 528791 #### [facility] [address] [place] [address] WBC corrected for nucl RBC Auto (Bld) [#/Vol] 8.9 E9/L Normal 4.0-11.0 [facility] Comment on above: Performed By: #### 2 042695 #### [facility] [address] [place] [address] CMPon 04-19-2024 Albumin [Mass/Vol] 2.5 g/dL Low 3.3-5.0 [facility] Comment on above: Performed By: #### 2 174915 #### [facility] [address] [place] [address] Albumin/Globulin (S) [Mass conc ratio] 0.5 Low 1.1-2.2 [facility] Comment on above: Performed By: #### 2 241989 #### [facility] [address] [place] [address] ALP [Catalytic activity/Vol] 219 Int._Unit/L High 21-98 [facility] Comment on above: Performed By: #### 2 751356 #### [facility] [address] [place] [address] ALT No additional P-5'-P [Catalytic activity/Vol] 22 Int._Unit/L Normal 6-46 [facility] Comment on above: Performed By: #### 2 218305 #### [facility] [address] [place] [address] Anion gap [Moles/Vol] 10 mmol/L Normal 6-16 [facility] Comment on above: Performed By: #### 2 336850 #### [facility] [address] [place] [address] AST [Catalytic activity/Vol] 39 Int._Unit/L Normal 5-43 [facility] Comment on above: Performed By: #### 2 454403 #### [facility] [address] [place] [address] Bilirubin [Mass/Vol] 2.0 mg/dL High 0.0-1.1 [facility] Comment on above: Performed By: #### 2 398447 #### [facility] [address] [place] [address] Calcium [Mass/Vol] 7.6 mg/dL Low 8.9-11.1 [facility] Comment on above: Performed By: #### 2 457470 #### [facility] [address] [place] [address] Chloride [Moles/Vol] 99 mmol/L Low 101-111 [facility] Comment on above: Performed By: #### 2 403127 #### [facility] [address] [place] [address] CO2 [Moles/Vol] 25 mmol/L Normal 21-31 [facility] Comment on above: Performed By: #### 2 597849 #### [facility] [address] [place] [address] Creatinine [Mass/Vol] 0.5 mg/dL Normal 0.5-1.3 [facility] Comment on above: Performed By: #### 2 856810 #### [facility] [address] [place] [address] Globulin (S) [Mass/Vol] 4.7 g/dL High 1.4-4.0 [facility] Comment on above: Performed By: #### 2 182298 #### [facility] [address] [place] [address] Glucose [Mass/Vol] 330 mg/dL High 55-199 [facility] Comment on above: Performed By: #### 2 521066 #### [facility] [address] [place] [address] Potassium [Moles/Vol] 4.8 mmol/L Normal 3.5-5.3 [facility] Comment on above: Performed By: #### 2 713051 #### [facility] [address] [place] [address] Protein [Mass/Vol] 7.2 g/dL Normal 6.0-7.8 [facility] Comment on above: Performed By: #### 2 822472 #### [facility] [address] [place] [address] Sodium [Moles/Vol] 129 mmol/L Low 135-145 [facility] Comment on above: Performed By: #### 2 352565 #### [facility] [address] [place] [address] Urea nitrogen [Mass/Vol] 6 mg/dL Normal 5-21 [facility] Comment on above: Performed By: #### 2 876058 #### [facility] [address] [place] [address] Urea nitrogen/Creatinine [Mass ratio] 12 No Units Normal 10-20 [facility] Comment on above: Performed By: #### 2 702831 #### [facility] [address] [place] [address] [id number] 04-19-2024 HbA1c (Bld) [Mass fraction] 11.8 % High <=5.9 [facility] Comment on above: Performed By: #### 7 [id number] #### [facility] [address] [place] [address] Lipid Panelon 04-19-2024 Cholesterol [Mass/Vol] 86 mg/dL Low 120-200 [facility] Comment on above: Performed By: #### 2 206070 #### [facility] [address] [place] [address] Cholesterol in HDL [Mass/Vol] 26 mg/dL Invalid Interpretation Code [facility] Comment on above: Result Comment: '>= 60 LOW RISK' '<= 40 HIGH RISK' Performed By: #### 2 685544 #### [facility] [address] [place] [address] Cholesterol in LDL [Mass/Vol] 49 mg/dL Normal <=129 [facility] Comment on above: Performed By: #### 2 974146 #### [facility] [address] [place] [address] Cholesterol in VLDL [Mass/Vol] 14 mg/dL Normal 7-40 [facility] Comment on above: Performed By: #### 2 806910 #### [facility] [address] [place] [address] Triglyceride [Mass/Vol] 69 mg/dL Normal <=149 [facility] Comment on above: Performed By: #### 2 561045 #### [facility] [address] [place] [address] TSHon 04-19-2024 TSH Qn 1.38 m[IU]/L Normal 0.34-5.60 [facility] Comment on above: Performed By: #### 2 208091 #### [facility] [address] [place] [address] eGFRon 04-19-2024 eGFR 106 mL/min/1.73 m2 Normal >=59 [facility] Comment on above: Performed By: #### 1 [id number] #### [facility] [address] [place] [address] Family Medicine Office/Clini c Noteon 04-18-2024 Family Medicine Office/Clinic Note Family Medicine Office/Clinic Note HPI Staff Please speak with patient about scheduling an AWV, patient has declined in past. [place] is a 64 year old female presenting for sick visit Respiratory C/O: Onset: 1 week Body aches: yes Chest congestion: yes Chills: no Cough: yes Sputum production: yes Sore throat: no Ear complaints: yes Eye itching/watering: no Fever: no Headache: yes Nasal congestion: yes Nasal discharge: yes Poor appetite: yes Reduced activity: yes Sinus pain/pressure: yes Sneezing: no Wheezing: no Ill contacts: no Remedies tried: Questions/Concerns: Pt has fallen a few times recently no injuries. Was seen at [facility] ER on 04/06 for URI covid test was negative History of Present Illness PT PRESENTS TODAY FOR ER FOLLOW UP. Review of Systems PHQ Score Initial Depression Screen Score: 0 SCORE Physical Exam Vitals & Measurements T: 36.9 ???C(Tympanic) HR: 76(Peripheral) RR: 18 BP: 130/74 SpO2: 96% HT: 61 in HT: 155.8 cm WT: 61.80 kg WT: 136.246 lb BMI: 25.46 General: alert, no acute distress ENMT: oral mucosa moist, no pharyngeal erythema or exudate Cardiovascular: regular rate and rhythm, normal peripheral perfusion Respiratory: Lungs expiratory wheezes, respirations non labored Extremities: no deformity, no trauma Neurological: oriented x 4, LOC appropriate for age, CN II-XII intact, motor strength equal & normal bilaterally, speech normal Assessment/Plan 1. Wheezing (R06.2: Wheezing) chest x ray ordered. 40mg kenalog given in office. Ordered: albuterol, 180 mcg, 2 inh, Inhalation, q6hr, 8.5 gm, Refill(s) 0, [facility], 155.8, cm, 04/18/24 14:43:00 EST, Height/Length Dosing, 61.8, kg, 04/18/24 14:43:00 EST, Weight Dosing fluticasone-salmeterol, 1 puff(s), Inhalation, BID for 90 day(s), 180 EA, Refill(s) 0, [facility], 155.8, cm, 04/18/24 14:43:00 EST, Height/Length Dosing, 61.8, kg, 04/18/24 14:43:00 EST, Weight Dosing levofloxacin, 500 mg = 1 tab(s), Oral, q24hr, X 7 day(s), # 7 tab(s), Refills(s) 0, Pharmacy: [facility], 155.8, cm, 04/18/24 14:43:00 EST, Height/Length Dosing, 61.8, kg, 04/18/24 14:43:00 EST, Weight Dosing triamcinolone, 40 mg = 1 mL, Injection, IntraARTICULAR, Once, Stop date 04/18/24 15:03:00 EST, Routine, Start date 04/18/24 15:03:00 EST, 04/18/24 15:03:00 EST CBC w/ Auto Diff Comprehensive Metabolic Panel HgbA1c Lab Specimen Collect 29217 Lipid Panel Thyroid Stimulating Hormone 2. Congestion of nasal sinus (R09.81: Nasal congestion) covid and flu negative Ordered: albuterol, 180 mcg, 2 inh, Inhalation, q6hr, 8.5 gm, Refill(s) 0, [facility], 155.8, cm, 04/18/24 14:43:00 EST, Height/Length Dosing, 61.8, kg, 04/18/24 14:43:00 EST, Weight Dosing fluticasone-salmeterol, 1 puff(s), Inhalation, BID for 90 day(s), 180 EA, Refill(s) 0, [facility], 155.8, cm, 04/18/24 14:43:00 EST, Height/Length Dosing, 61.8, kg, 04/18/24 14:43:00 EST, Weight Dosing levofloxacin, 500 mg = 1 tab(s), Oral, q24hr, X 7 day(s), # 7 tab(s), Refills(s) 0, Pharmacy: [facility], 155.8, cm, 04/18/24 14:43:00 EST, Height/Length Dosing, 61.8, kg, 04/18/24 14:43:00 EST, Weight Dosing triamcinolone, 40 mg = 1 mL, Injection, IntraARTICULAR, Once, Stop date 04/18/24 15:03:00 EST, Routine, Start date 04/18/24 15:03:00 EST, 04/18/24 15:03:00 EST CBC w/ Auto Diff Comprehensive Metabolic Panel HgbA1c Lab Specimen Collect [id number] Lipid Panel Thyroid Stimulating Hormone 3. Dizziness (R42: Dizziness and giddiness) CBC checked Ordered: albuterol, 180 mcg, 2 inh, Inhalation, q6hr, 8.5 gm, Refill(s) 0, [facility], 155.8, cm, 04/18/24 14:43:00 EST, Height/Length Dosing, 61.8, kg, 04/18/24 14:43:00 EST, Weight Dosing fluticasone-salmeterol, 1 puff(s), Inhalation, BID for 90 day(s), 180 EA, Refill(s) 0, [facility], 155.8, cm, 04/18/24 14:43:00 EST, Height/Length Dosing, 61.8, kg, 04/18/24 14:43:00 EST, Weight Dosing levofloxacin, 500 mg = 1 tab(s), Oral, q24hr, X 7 day(s), # 7 tab(s), Refills(s) 0, Pharmacy: [facility], 155.8, cm, 04/18/24 14:43:00 EST, Height/Length Dosing, 61.8, kg, 04/18/24 14:43:00 EST, Weight Dosing triamcinolone, 40 mg = 1 mL, Injection, IntraARTICULAR, Once, Stop date 04/18/24 15:03:00 EST, Routine, Start date 04/18/24 15:03:00 EST, 04/18/24 15:03:00 EST CBC w/ Auto Diff Comprehensive Metabolic Panel HgbA1c Lab Specimen Collect 53941 Lipid Panel Thyroid Stimulating Hormone 4. Hypomagnesemia (E83.42: Hypomagnesemia) CMP drawn Ordered: albuterol, 180 mcg, 2 inh, Inhalation, q6hr, 8.5 gm, Refill(s) 0, [facility], 155.8, cm, 04/18/24 14:43:00 EST, Height/Length Dosing, 61.8, kg, 04/18/24 14:43:00 EST, Weight Dosing fluticasone-salmeterol, 1 puff(s), Inhalation, BID for 90 day(s), 180 EA, Refill(s) 0, [facility], 155.8, cm, 04/18/24 14:43:00 EST, Height/Length Dosing, 61.8, (more content not included)... Normal [facility] Comment on above: Result Comment: Elec tronically Signed By: Chapis [email or web address].[email or web address]\Date and Time Signed: 04/18/24 15:41 EST Anthony 01-18-2024 CNOV Office Visit (GASTA5 ) -- TERESA LYLE ([id number]) 1960 F Date Time Provider Department 01/18/24 11:30 AM NOEMI LOCKETT GASTA5 During your visit today, we recorded the following information about you: Temperature Pulse Blood pressure Weight 98.5 degrees 84/minute 126/41 63.6 kg Height 1.575 m Noemi Lockett APRN.CNP 01/19/2024 4:47 PM Signed NAME: Teresa Lyle CLINIC NO: [id number] REFERRING PHYSICIAN: Jena Cohen PRESENTING COMPLAINT: follow up HPI: Teresa Lyle is a 63 year old female is here on follow up for 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 Pmhx includes DM, GERD, COPD, fibromylgia, ventral hernia, arthritis GAL with Dr. Cohen on 07/05/23. 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 Now s/p hospitalization for variceal bleeding locally-s/p EGD locally with varices; transferred here, and underwent TIPS with substantial reduction in hepatic venous pressure gradient. No further issues with bleeding Lower extremity edema managed with diuretics Hepatic encephalopathy managed with MiraLAX (unfortunately, unable to afford rifaximin)-but per her sister, relatively intact mental status when taking medicines When last seen, relatively low MELD -likely too early still to begin transplant eval Long discussion today re issues, complications of liver disease, threshold for OLT eval, process, etc. Suggested 1. Portal Htn Liver vascular Dopplers every 6 months 2. Cirrhosis -labs pending from today to recalc MELD -imaging per protocol 3. PBC -currently on uros, with most recent labs with normalization of alkaline phosphatase -BMD 4. OLT -likely still too early to be considered - will plan to f/u in liver clinic 5. Volume overload -2 g sodium diet (not yet adherent) -Daily weights -Continue current diuretics Interval hx: She is doing ok Here today with her sister Concerned about feeling bloated, wondering if she is retaining water Currently taking Chris 500 mg BID PT currently denies jaundice, confusion/disorientation, ascites, hematemesis, dark/tarry stools, curt colored stools, or dark urine. All other systems reviewed and are negative REVIEW OF SYSTEMS GENERAL: No unexplained weight changes or fevers. HEENT: Negative for severe headaches, negative for changes in hearing or vision. NECK: Negative for lumps, masses or pain. RESPIRATORY: Negative for coughing, wheezing or significant dyspnea. CARDIOVASCULAR: Negative for chest pain or heart palpitations. GASTROINTESTINAL: Negative for rectal bleeding or black tarry stools. GENITOURINARY: Negative for dysuria or urinary incontinence. MUSCULOSKELETAL: Negative for unexplained joint pains, dislocations or fractures. NEUROLOGIC: Negative for unexplained weakness or vertigo. SKIN: Negative for new lesions or rashes. ENDOCRINE: Negative for cold or heat intolerance . Current Outpatient Medications Medication Sig Dispense Refill furosemide (LASIX) 20 mg tablet Take 1 tablet by mouth once daily. 90 tablet 3 spironolactone (ALDACTONE) 50 mg tablet Take 1 tablet by mouth once daily. 90 tablet 3 ursodiol (CHRIS) 250 mg tablet Take 2 tablets by mouth two times a day with meals. 120 tablet 11 vitamin A (AQUASOL A) 10,000 unit capsule Take 1 capsule by mouth once daily. 30 capsule 1 ergocalciferol 50,000 unit capsule (VITAMIN D2, DRISDOL) Take 1 capsule by mouth one time a week for 7 doses. 7 capsule 0 insulin glargine 100 unit/mL (3 mL) Inject 30 Units subcutaneously every morning. Daily at 9 am polyethylene glycol 3350 17 gram packet Take 1 Packet by mouth three times a day. Dissolve dose in 4 - 8 ounces of liquid and take as directed. 100 Packet 1 insulin lispro 100 unit/mL injection Inject 5 Units subcutaneously with meals. Please hold if skipping a meal rifAXIMin (XIFAXAN) 550 mg tablet Take 1 tablet by mouth two times a day. 60 tablet 11 atorvastatin (LIPITOR) 10 mg tablet gabapentin (NEURONTIN) 300 mg capsule Take 300 mg by mouth three times daily. pantoprazole DR (PROTONIX) 40 mg tablet Take 40 mg by mouth once daily. blood sugar diagnostic ([facility] [place]) (Patient not taking: Reported on 08/17/2022) Fluticasone Propionate 50 mcg/actuation diskus inhaler Inhale 1 Puff as instructed twice daily. (Patient not taking: Reported on 06/11/2023) tiotropium bromide 1.25 mcg/actuation mist Inhale 2 Puffs as instructed once daily. (Patient not t (more content not included)... 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 Now status post right hepatic vein to right portal vein TIPS. TECHNIQUE: Magnet: 1.5T scanner. Multiplanar MRI of the abdomen with multiple sequences, performed before and after intravenous contrast. Additional MR cholangiopancreatography sequences were performed. Image post-processing {Maximum intensity Projection (MIP), Volume-rendered (VR), Surface shaded display images (SSD) or complex volumetric analysis} was performed with images created, reviewed and archived, but without concurrent physician supervision. Contrast: Intravenous: 11 ml of Dotarem COMPARISON: Ultrasound 07/05/2023, 06/06/2023, CT abdomen pelvis 05/24/2023. RESULT: Liver: Cirrhotic liver morphology with diffuse T2 bright parenchymal lacelike fibrosis, periportal edema and hypertrophy of the caudate lobe consistent with known diagnosis of primary biliary cholangitis. No hepatic steatosis. Multiple regenerative nodules. No mass. Biliary: No intrahepatic or extrahepatic bile duct dilation. No biliary filling defect. Gallbladder is absent. Spleen: No mass. No splenomegaly. Pancreas: Normal caliber main pancreatic duct. Multifocal cystic pancreatic lesions communicating with the main duct likely side branch IPMNs and without worrisome features. For example: * 1.1 cm cystic pancreatic body lesion (8:26). * 1.9 cm multicystic pancreatic tail lesion (8:22). Adrenals: No mass. Kidneys: No solid or cystic mass. No hydronephrosis. GI: No dilated bowel or wall thickening along imaged segments. Lymph nodes: Nonspecific, 1.0 cm short axis diameter aortocaval node (24:57). No additional abnormally enlarged lymph nodes. Mesentery / Peritoneum / Retroperitoneum: Trace perihepatic ascites. No mass. Trace volume abdominal ascites. Vasculature: The celiac axis and SMA are patent. The portal vein, splenic vein, SMV, and hepatic veins are patent. Patent right hepatic vein to right portal vein TIPS within the sensitivity secondary to artifact. No aortic or iliac artery aneurysm. Recanalized paraumbilical vein. Bones/Soft Tissues: Degenerative changes. Fat and fluid containing ventral epigastric hernia. Lower chest: Unremarkable. 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 Now status post right hepatic vein to right portal vein TIPS. TECHNIQUE: Magnet: 1.5T scanner. Multiplanar MRI of the abdomen with multiple sequences, performed before and after intravenous contrast. Additional MR cholangiopancreatography sequences were performed. Image post-processing {Maximum intensity Projection (MIP), Volume-rendered (VR), Surface shaded display images (SSD) or complex volumetric analysis} was performed with images created, reviewed and archived, but without concurrent physician supervision. Contrast: Intravenous: 11 ml of Dotarem COMPARISON: Ultrasound 07/05/2023, 06/06/2023, CT abdomen pelvis 05/24/2023. RESULT: Liver: Cirrhotic liver morphology with diffuse T2 bright parenchymal lacelike fibrosis, periportal edema and hypertrophy of the caudate lobe consistent with known diagnosis of primary biliary cholangitis. No hepatic steatosis. Multiple regenerative nodules. No mass. Biliary: No intrahepatic or extrahepatic bile duct dilation. No biliary filling defect. Gallbladder is absent. Spleen: No mass. No splenomegaly. Pancreas: Normal caliber main pancreatic duct. Multifocal cystic pancreatic lesions communicating with the main duct likely side branch IPMNs and without worrisome features. For example: * 1.1 cm cystic pancreatic body lesion (8:26). * 1.9 cm multicystic pancreatic tail lesion (8:22). Adrenals: No mass. Kidneys: No solid or cystic mass. No hydronephrosis. GI: No dilated bowel or wall thickening along imaged segments. Lymph nodes: Nonspecific, 1.0 cm short axis diameter aortocaval node (24:57). No additional abnormally enlarged lymph nodes. Mesentery / Peritoneum / Retroperitoneum: Trace perihepatic ascites. No mass. Trace volume abdominal ascites. Vasculature: The celiac axis and SMA are patent. The portal vein, splenic vein, SMV, and hepatic veins are patent. Patent right hepatic vein to right portal vein TIPS within the sensitivity secondary to artifact. No aortic or iliac artery aneurysm. Recanalized paraumbilical vein. Bones/Soft Tissues: Degenerative changes. Fat and fluid containing ventral epigastric hernia. Lower chest: Unremarkable. IMPRESSION IMPRESSION: Cirrhotic liver morphology and sequela of portal hypertension secondary to primary biliary cholangitis. No hepatic lesion. Multifocal cystic pancreatic lesions, likely side branch IPMNs and without worrisome features. See guidance as below. ACTIONABLE RESULT: FOLLOW-UP Acuity: Actionable Findings: Pancreas/Biliary Routing Code: PB_1 Recommendation: MRI PANCREAS/BILIARY WO/W IV CONTRAST Time Frame: In one year. COMMUNICATION: Results will be communicated with the ordering provider via [employer] staff message or phone message by [facility] within 2 business days of report finalization. 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 Now status post right hepatic vein to right portal vein TIPS. TECHNIQUE: Magnet: 1.5T scanner. Multiplanar MRI of the abdomen with multiple sequences, performed before and after intravenous contrast. Additional MR cholangiopancreatography sequences were performed. Image post-processing {Maximum intensity Projection (MIP), Volume-rendered (VR), Surface shaded display images (SSD) or complex volumetric analysis} was performed with images created, reviewed and archived, but without concurrent physician supervision. Contrast: Intravenous: 11 ml of Dotarem COMPARISON: Ultrasound 07/05/2023, 06/06/2023, CT abdomen pelvis 05/24/2023. RESULT: Liver: Cirrhotic liver morphology with diffuse T2 bright parenchymal lacelike fibrosis, periportal edema and hypertrophy of the caudate lobe consistent with known diagnosis of primary biliary cholangitis. No hepatic steatosis. Multiple regenerative nodules. No mass. Biliary: No intrahepatic or extrahepatic bile duct dilation. No biliary filling defect. Gallbladder is absent. Spleen: No mass. No splenomegaly. Pancreas: Normal caliber main pancreatic duct. Multifocal cystic pancreatic lesions communicating with the main duct likely side branch IPMNs and without worrisome features. For example: * 1.1 cm cystic pancreatic body lesion (8:26). * 1.9 cm multicystic pancreatic tail lesion (8:22). Adrenals: No mass. Kidneys: No solid or cystic mass. No hydronephrosis. GI: No dilated bowel or wall thickening along imaged segments. Lymph nodes: Nonspecific, 1.0 cm short axis diameter aortocaval node (24:57). No additional abnormally enlarged lymph nodes. Mesentery / Peritoneum / Retroperitoneum: Trace perihepatic ascites. No mass. Trace volume abdominal ascites. Vasculature: The celiac axis and SMA are patent. The portal vein, splenic vein, SMV, and hepatic veins are patent. Patent right hepatic vein to right portal vein TIPS within the sensitivity secondary to artifact. No aortic or iliac artery aneurysm. Recanalized paraumbilical vein. Bones/Soft Tissues: Degenerative changes. Fat and fluid containing ventral epigastric hernia. Lower chest: Unremarkable. 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 Now status post right hepatic vein to right portal vein TIPS. TECHNIQUE: Magnet: 1.5T scanner. Multiplanar MRI of the abdomen with multiple sequences, performed before and after intravenous contrast. Additional MR cholangiopancreatography sequences were performed. Image post-processing {Maximum intensity Projection (MIP), Volume-rendered (VR), Surface shaded display images (SSD) or complex volumetric analysis} was performed with images created, reviewed and archived, but without concurrent physician supervision. Contrast: Intravenous: 11 ml of Dotarem COMPARISON: Ultrasound 07/05/2023, 06/06/2023, CT abdomen pelvis 05/24/2023. RESULT: Liver: Cirrhotic liver morphology with diffuse T2 bright parenchymal lacelike fibrosis, periportal edema and hypertrophy of the caudate lobe consistent with known diagnosis of primary biliary cholangitis. No hepatic steatosis. Multiple regenerative nodules. No mass. Biliary: No intrahepatic or extrahepatic bile duct dilation. No biliary filling defect. Gallbladder is absent. Spleen: No mass. No splenomegaly. Pancreas: Normal caliber main pancreatic duct. Multifocal cystic pancreatic lesions communicating with the main duct likely side branch IPMNs and without worrisome features. For example: * 1.1 cm cystic pancreatic body lesion (8:26). * 1.9 cm multicystic pancreatic tail lesion (8:22). Adrenals: No mass. Kidneys: No solid or cystic mass. No hydronephrosis. GI: No dilated bowel or wall thickening along imaged segments. Lymph nodes: Nonspecific, 1.0 cm short axis diameter aortocaval node (24:57). No additional abnormally enlarged lymph nodes. Mesentery / Peritoneum / Retroperitoneum: Trace perihepatic ascites. No mass. Trace volume abdominal ascites. Vasculature: The celiac axis and SMA are patent. The portal vein, splenic vein, SMV, and hepatic veins are patent. Patent right hepatic vein to right portal vein TIPS within the sensitivity secondary to artifact. No aortic or iliac artery aneurysm. Recanalized paraumbilical vein. Bones/Soft Tissues: Degenerative changes. Fat and fluid containing ventral epigastric hernia. Lower chest: Unremarkable. IMPRESSION IMPRESSION: Cirrhotic liver morphology and sequela of portal hypertension secondary to primary biliary cholangitis. No hepatic lesion. Multifocal cystic pancreatic lesions, likely side branch IPMNs and without worrisome features. See guidance as below. ACTIONABLE RESULT: FOLLOW-UP Acuity: Actionable Findings: Pancreas/Biliary Routing Code: PB_1 Recommendation: MRI PANCREAS/BILIARY WO/W IV CONTRAST Time Frame: In one year. COMMUNICATION: Results will be communicated with the ordering provider via [employer] staff message or phone message by [facility] within 2 business days of report finalization. 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 Now status post right hepatic vein to right portal vein TIPS. TECHNIQUE: Magnet: 1.5T scanner. Multiplanar MRI of the abdomen with multiple sequences, performed before and after intravenous contrast. Additional MR cholangiopancreatography sequences were performed. Image post-processing {Maximum intensity Projection (MIP), Volume-rendered (VR), Surface shaded display images (SSD) or complex volumetric analysis} was performed with images created, reviewed and archived, but without concurrent physician supervision. Contrast: Intravenous: 11 ml of Dotarem COMPARISON: Ultrasound 07/05/2023, 06/06/2023, CT abdomen pelvis 05/24/2023. RESULT: Liver: Cirrhotic liver morphology with diffuse T2 bright parenchymal lacelike fibrosis, periportal edema and hypertrophy of the caudate lobe consistent with known diagnosis of primary biliary cholangitis. No hepatic steatosis. Multiple regenerative nodules. No mass. Biliary: No intrahepatic or extrahepatic bile duct dilation. No biliary filling defect. Gallbladder is absent. Spleen: No mass. No splenomegaly. Pancreas: Normal caliber main pancreatic duct. Multifocal cystic pancreatic lesions communicating with the main duct likely side branch IPMNs and without worrisome features. For example: * 1.1 cm cystic pancreatic body lesion (8:26). * 1.9 cm multicystic pancreatic tail lesion (8:22). Adrenals: No mass. Kidneys: No solid or cystic mass. No hydronephrosis. GI: No dilated bowel or wall thickening along imaged segments. Lymph nodes: Nonspecific, 1.0 cm short axis diameter aortocaval node (24:57). No additional abnormally enlarged lymph nodes. Mesentery / Peritoneum / Retroperitoneum: Trace perihepatic ascites. No mass. Trace volume abdominal ascites. Vasculature: The celiac axis and SMA are patent. The portal vein, splenic vein, SMV, and hepatic veins are patent. Patent right hepatic vein to right portal vein TIPS within the sensitivity secondary to artifact. No aortic or iliac artery aneurysm. Recanalized paraumbilical vein. Bones/Soft Tissues: Degenerative changes. Fat and fluid containing ventral epigastric hernia. Lower chest: Unremarkable. IMPRESSION: Cirrhotic liver morphology and sequela of portal hypertension secondary to primary biliary cholangitis. No hepatic lesion. Multifocal cystic pancreatic lesions, likely side branch IPMNs and without worrisome features. See guidance as below. ACTIONABLE RESULT: FOLLOW-UP Acuity: Actionable Findings: Pancreas/Biliary Routing Code: PB_1 Recommendation: MRI PANCREAS/BILIARY WO/W IV CONTRAST Time Frame: In one year. COMMUNICATION: Results will be communicated with the ordering provider via [employer] staff message or phone message by [facility] within 2 business days of report finalization. 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 Now status post right hepatic vein to right portal vein TIPS. TECHNIQUE: Magnet: 1.5T scanner. Multiplanar MRI of the abdomen with multiple sequences, performed before and after intravenous contrast. Additional MR cholangiopancreatography sequences were performed. Image post-processing {Maximum intensity Projection (MIP), Volume-rendered (VR), Surface shaded display images (SSD) or complex volumetric analysis} was performed with images created, reviewed and archived, but without concurrent physician supervision. Contrast: Intravenous: 11 ml of Dotarem COMPARISON: Ultrasound 07/05/2023, 06/06/2023, CT abdomen pelvis 05/24/2023. RESULT: Liver: Cirrhotic liver morphology with diffuse T2 bright parenchymal lacelike fibrosis, periportal edema and hypertrophy of the caudate lobe consistent with known diagnosis of primary biliary cholangitis. No hepatic steatosis. Multiple regenerative nodules. No mass. Biliary: No intrahepatic or extrahepatic bile duct dilation. No biliary filling defect. Gallbladder is absent. Spleen: No mass. No splenomegaly. Pancreas: Normal caliber main pancreatic duct. Multifocal cystic pancreatic lesions communicating with the main duct likely side branch IPMNs and without worrisome features. For example: * 1.1 cm cystic pancreatic body lesion (8:26). * 1.9 cm multicystic pancreatic tail lesion (8:22). Adrenals: No mass. Kidneys: No solid or cystic mass. No hydronephrosis. GI: No dilated bowel or wall thickening along imaged segments. Lymph nodes: Nonspecific, 1.0 cm short axis diameter aortocaval node (24:57). No additional abnormally enlarged lymph nodes. Mesentery / Peritoneum / Retroperitoneum: Trace perihepatic ascites. No mass. Trace volume abdominal ascites. Vasculature: The celiac axis and SMA are patent. The portal vein, splenic vein, SMV, and hepatic veins are patent. Patent right hepatic vein to right portal vein TIPS within the sensitivity secondary to artifact. No aortic or iliac artery aneurysm. Recanalized paraumbilical vein. Bones/Soft Tissues: Degenerative changes. Fat and fluid containing ventral epigastric hernia. Lower chest: Unremarkable. IMPRESSION: Cirrhotic liver morphology and sequela of portal hypertension secondary to primary biliary cholangitis. No hepatic lesion. Multifocal cystic pancreatic lesions, likely side branch IPMNs and without worrisome features. See guidance as below. ACTIONABLE RESULT: FOLLOW-UP Acuity: Actionable Findings: Pancreas/Biliary Routing Code: PB_1 Recommendation: MRI PANCREAS/BILIARY WO/W IV CONTRAST Time Frame: In one year. COMMUNICATION: Results will be communicated with the ordering provider via [employer] staff message or phone message by [facility] within 2 business days of report finalization. --END OF FINDING-- Tire Finisher: EDDIE Transcribe Date/Time: Jan 18 2024 11:12A Dictated by : JOSE RAMON JENNINGS MD This examination was interpreted and the report reviewed and electronically signed by: ALEXEY SILVA MD on Jan 18 2024 4:53PM EST [id number] ACTIONABLE Invalid Interpretation Code [facility] No Panel InformationOrdered By: [facility] Provider on 01-18-2024 Interpretation and review of laboratory results Abnormal [facility] Radiology Result ACTIONABLE Abnormal [facility] Comment on above: This report contains an incidental or actionable finding. This finding may be a new finding separate from the reason your provider ordered the imaging test or it may be an already known finding that needs additional or continued follow-up. Because of this incidental or actionable finding, you may need another test (imaging or a different type of test). Please contact your provider for the next steps. [facility] No Panel Informationon 01-17 IMPRESSION: Cirrhotic liver morphology and sequela of portal hypertension secondary to primary biliary cholangitis. No hepatic lesion. Multifocal cystic pancreatic lesions, likely side branch IPMNs and without worrisome features. See guidance as below. ACTIONABLE RESULT: FOLLOW-UP Acuity: Actionable Findings: Pancreas/Biliary Routing Code: PB_1 Recommendation: MRI PANCREAS/BILIARY WO/W IV CONTRAST Time Frame: In one year. COMMUNICATION: Results will be communicated with the ordering provider via [employer] staff message or phone message by [facility] within 2 business days of report finalization. 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 Moderate protein-calorie malnutrition BMI 26.0-26.9,adult Smoker Your Care Team Attending Physician - Chapis Dumont Primary Care Physician - Chapis Dumont This Is Your Medications List atorvastatin (atorvastatin 10 mg Tab) carvedilol (Coreg 25 mg Tab) cholecalciferol (cholecalciferol 5000 intl units (125 mcg) oral tab) docusate (Colace 100 mg Cap) furosemide (Lasix 40 mg Tab) gabapentin (gabapentin 300 mg Cap) insulin aspart (Fiasp FlexTouch 100 units/mL injectable solution) insulin degludec (Tresiba FlexTouch 100 units/mL subcutaneous solution) insulin glulisine (Apidra 100 units/mL injectable solution) magnesium oxide meloxicam (meloxicam 7.5 mg Tab) midodrine (midodrine 2.5 mg oral tablet) obeticholic acid (Ocaliva 5 mg oral tablet) pantoprazole (Pantoprazole [address] Tab) potassium phosphate-sodium phosphate (potassium phosphate-sodium phosphate 250 mg-45 mg-298 mg oral tablet) spironolactone (spironolactone 100 mg Tab) ursodiol (ursodiol 300 mg Cap) Procedures Performed Colonoscopy, EGD (esophagogastroduodenoscop ic) electrohydraulic lithotripsy of bezoar in stomach. Discharge Vitals Temperature (Oral) 36.7 ???C Heart Rate (Peripheral) 84 Respiratory Rate 20 Blood Pressure 154/88 Height 155.8 cm Height 61 in Weight 64.7 kg Weight 142.639 lb BMI 26.65 Medications What How Much When Why Instructions New gabapentin (gabapentin 300 mg Cap) 1 Capsules By Mouth 3 times a day Duration: 90 Days Refills: 3 Pickup at [id number] Unchanged atorvastatin (atorvastatin 10 mg Tab) 1 Tablets By Mouth Every day Unchanged carvedilol (Coreg 25 mg Tab) 1 Tablets By Mouth 2 times a day Oral, 0 Refill(s) Unchanged cholecalciferol (cholecalciferol 5000 intl units (125 mcg) oral tab) See instructions 3000 units orally daily Unchanged docusate (Colace 100 mg Cap) 1 Capsules By Mouth 3 times a day Oral, 0 Refill(s) Unchanged furosemide (Lasix 40 mg Tab) Oral, 0 Refill(s) Unchanged insulin aspart (Fiasp FlexTouch 100 units/ mL injectable solution) See instructions 38 units sub q once a eber Unchanged insulin degludec (Tresiba FlexTouch 100 units/ mL subcutaneous solution) See instructions use as directed sliding scale Unchanged insulin glulisine (Apidra 100 units/ mL injectable solution) Subcutaneous, 0 Refill(s) Unchanged magnesium oxide See instructions one orally daily Unchanged meloxicam (meloxicam 7.5 mg Tab) 1 Tablets By Mouth Every day Right wrist pain Right hand weakness BMI 28.0-28.9,adult Over weight Smoker Unchanged midodrine (midodrine 2.5 mg oral tablet) 1 Tablets By Mouth 3 times a day Oral, 0 Refill(s) Unchanged obeticholic acid (Ocaliva 5 mg oral tablet) 1 Tablets By Mouth Every day Oral, 0 Refill(s) Unchanged pantoprazole (Pantoprazole [address] Tab) See instructions TAKE 1 TABLET BY MOUTH DAILY Unchanged potassium phosphate-sodium phosphate (potassium phosphate-sodium phosphate 250 mg-45 mg-298 mg oral tablet) 1 Tablets By Mouth 3 times a day Oral, 0 Refill(s) Unchanged spironolactone (spironolactone 100 mg Tab) 1 Tablets By Mouth Every day Oral, 0 Refill(s) Unchanged ursodiol (ursodiol 300 mg Cap) 1 Capsules By Mouth 4 times a day Oral, 0 Refill(s) Pharmacy Information [id number]: [address] [id number] [phone] Allergies No Known Medication Allergies Problems Ongoing - Any problem that you are currently receiving treatment for. 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 Hyperlipidemia Type 1 diabetes mellitus Patient Survey You may receive a survey via text or e-mail asking about your office visit. Please share your experience with us by completing your survey. We appreciate your feedback and thank you for choosing us for your care. Normal [facility] Family Medicine Office/Clini c Noteon 01-13-2024 Family Medicine Office/Clinic Note Family Medicine Office/Clinic Note HPI Staff eTresa is a 63 year old female presenting for medication refill Gabapentin needs refilled [facility] said she was too young to get bone density US scheduled @ on February 16 she thinks it is for pancreas History of Present Illness pt presents today for med refill Review of Systems PHQ Score Initial Depression Screen Score: 0 SCORE Physical Exam Vitals & Measurements T: 36.7 ???C(Oral) HR: 84(Peripheral) RR: 20 BP: 154/88 SpO2: 98% HT: 61 in HT: 155.8 cm WT: 64.7 kg WT: 142.639 lb BMI: 26.65 General: alert, no acute distress ENMT: oral mucosa moist, no pharyngeal erythema or exudate Cardiovascular: regular rate and rhythm, normal peripheral perfusion Respiratory: Lungs CTA, respirations non labored Extremities: no deformity, no trauma Neurological: oriented x 4, LOC appropriate for age, CN II-XII intact, motor strength equal & normal bilaterally, speech normal Assessment/Plan 1. Diabetic neuropathy, type I diabetes mellitus (E10.40: Type 1 diabetes mellitus with diabetic neuropathy, unspecified) pt states the gabapentin has really helped with the neuropathy pain. she has nopt had any falls since starting it. 2. 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 Moderate protein-calorie malnutrition (E44.0: Moderate protein-calorie malnutrition) 4. BMI 26.0-26.9,adult (Z68.26: Body mass index [BMI] 26.0-26.9, adult) BMI education given 5. Smoker (F17.200: Nicotine dependence, unspecified, uncomplicated) consider not smoking Orders: gabapentin, 300 mg = 1 cap(s), Oral, TID, X 90 day(s), # 270 cap(s), Refills(s) 3, Pharmacy: [id number], 155.8, cm, 01/13/24 14:55:00 EST, Height/Length Dosing, 64.7, kg, 01/13/24 14:55:00 EST, Weight Dosing gabapentin, 300 mg = 1 cap(s), Oral, TID, # 90 cap(s), Refills(s) 5, Pharmacy: [id number], 155.8, cm, 12/21/22 13:11:00 EDT, Height/Length Dosing, 70, kg, 12/21/22 13:11:00 EDT, Weight Dosing pantoprazole, 40 mg = 1 tab(s), Oral, Daily, # 90 tab(s), Refills(s) 3, Pharmacy: [id number], 155.8, cm, 12/21/22 13:11:00 EDT, Height/Length Dosing, 70, kg, 12/21/22 13:11:00 EDT, Weight Dosing Follow-up No qualifying data available Problem List/Past Medical History Ongoing Chronic obstructive pulmonary disease (COPD) Cirrhosis of liver with ascites Diabetic neuropathy, type I diabetes mellitus Esophageal varices determined by endoscopy Gastro-esophageal reflux disease without esophagitis Hyperlipidemia Hypertensive disorder Hypo-osmolality and hyponatremia Hypomagnesemia Hypophosphatemia Iron deficiency anemia Localized edema [facility] (current) use of insulin Moderate protein-calorie malnutrition Personal history of nicotine dependence Rectal varices Right hand weakness Right wrist pain Thrombocytopenia Type 1 diabetes mellitus with hyperglycemia Type 1 diabetes mellitus with hyperlipidemia Vitamin D deficiency Historical Hyperlipidemia Type 1 diabetes mellitus Procedure/Surgical History Colonoscopy, EGD (esophagogastroduodenoscop ic) electrohydraulic lithotripsy of bezoar in stomach. Medications Apidra 100 units/mL injectable solution atorvastatin 10 mg Tab, 10 mg= 1 tab(s), Oral, Daily cholecalciferol 5000 intl units (125 mcg) oral tab, See Instructions Colace 100 mg Cap, 100 mg= 1 cap(s), Oral, TID Coreg 25 mg Tab, 25 mg= 1 tab(s), Oral, BID Fiasp FlexTouch 100 units/mL injectable solution, See Instructions gabapentin 300 mg Cap, 300 mg= 1 cap(s), Oral, TID, 3 refills Lasix 40 mg Tab magnesium oxide, See Instructions meloxicam 7.5 mg Tab, 7.5 mg= 1 tab(s), Oral, Daily midodrine 2.5 mg oral tablet, 2.5 mg= 1 tab(s), Oral, TID Ocaliva 5 mg oral tablet, 5 mg= 1 tab(s), Oral, Daily Pantoprazole [address] Tab, See Instructions potassium phosphate-sodium phosphate 250 mg-45 mg-298 mg oral tablet, 1 tab(s), Oral, TID spironolactone 100 mg Tab, 100 mg= 1 tab(s), Oral, Daily Tresiba FlexTouch 100 units/mL subcutaneous solution, See Instructions ursodiol 300 mg Cap, 300 mg= 1 cap(s), Oral, QID Allergies No Known Medication Allergies Social History Alcohol Never., 01/13/2024 Substance Abuse Never., 01/13/2024 Tobacco 10 or more cigarettes (1/2 pack or more)/day in last 30 days Tobacco Use:., 01/13/2024 Family History Family history is negative Immunizations Vaccine Date Status influenza virus vaccine, inactivated 10/20/2021 Recorded SARSCoV2 mRNA(fzbtaaony-criw-uzcbzp ) vac 05/27/2021 Recorded hepatitis B adult vaccine 10/23/2020 Recorded SARS-CoV-2 (COVID-19) mRNA BNT-162b2 vax 07/24/2020 Recorded SARS-CoV-2 (COVID-19) mRNA BNT-162b2 vax 07/03/2020 Recorded influenza virus vaccine, inactivated 11/01/2019 Recorded pneumococcal 23-valent vaccine 11/23/2017 Recorded influenza virus vaccine, inactivated 11/23/2017 Recorded influenza vir (more content not included)... Normal [facility] Comment on above: Result Comment: Elec tronically Signed By: Chapis Dumont\Date and Time Signed: 01/13/24 15:10 EST AFP Tumor Marker, Serumon AFP Tumor Marker, Serum <1.8 Normal 0.0-9.2 [facility] Comment on above: Result Comment: [facility] Electrochemiluminescence Immunoassay (ECLIA) Values obtained with different assay methods or kits cannot be used interchangeably. Results cannot be interpreted as absolute evidence of the presence or absence of malignant disease. This test is not interpretable in females. Performed at: [facility] [id number] [employer] Professor: Bret Montgomery PhD, Phone: [phone] PERFORMED BY: [place] [address] PATHOLOGIST BUILDING ENGINEER CLAU PONCE M.D. Performed By: #### C RP, TSH3, ESR, BMP, BHOB, LIPASE, HEPATIC, SCAN CBC, PT #### [address] Alanine aminotransferase [En zymatic activity/volume] in Serum or PlasmaOrdered By: Jena Cohen on 11-23-2023 ALT [Catalytic activity/Vol] 25 U/L Normal 7-52 [facility] Comment on above: Performed By: #### C RP, TSH3, ESR, BMP, BHOB, LIPASE, HEPATIC, SCAN CBC, PT #### [place] [address] [place] Albumin [Mass/volume] in Ser um or Plasma by Bromocresol green (BCG) dye binding methoOrdered By: Jena Cohen on 11-23-2023 Albumin BCG dye [Mass/Vol] 2.8 g/dL Low 3.5-5.7 [facility] Alkaline phosphatase [Enzyma tic activity/volume] in Serum or PlasmaOrdered By: Jena Cohen on 11-23-2023 ALP [Catalytic activity/Vol] 222 U/L High 34-104 [facility] Comment on above: Performed By: #### C RP, TSH3, ESR, BMP, BHOB, LIPASE, HEPATIC, SCAN CBC, PT #### [facility] [address] Anisocytosis [Presence] in B lood by Light microscopyOrdered By: Jena Cohen on 11-23-2023 Anisocytosis Ql (Bld) Marked Normal [facility] Comment on above: Performed By: #### C RP, TSH3, ESR, BMP, BHOB, LIPASE, HEPATIC, SCAN CBC, PT #### [address] Aspartate aminotransferase [ Enzymatic activity/volume] in Serum or PlasmaOrdered By: Jena Cohen on 11-23-2023 AST [Catalytic activity/Vol] 43 U/L High 13-39 [facility] Comment on above: Performed By: #### C RP, TSH3, ESR, BMP, BHOB, LIPASE, HEPATIC, SCAN CBC, PT #### [address] Automated basophil %Ordered By: Jena Cohen on 11-23-2023 Basophils/100 WBC (Bld) 1.0 % Normal . [facility] Comment on above: Performed By: #### C RP, TSH3, ESR, BMP, BHOB, LIPASE, HEPATIC, SCAN CBC, PT #### [address] Automated basophil countOrde red By: Jena Cohen on 11-23-2023 Basophils (Bld) [#/Vol] 0.0 10*3/uL Normal 0.0-0.2 [facility] Comment on above: Performed By: #### C RP, TSH3, ESR, BMP, BHOB, LIPASE, HEPATIC, SCAN CBC, PT #### [address] Automated blood monocyte cou ntOrdered By: Jena Cohen on 11-23-2023 Monocytes (Bld) [#/Vol] 0.4 10*3/uL Normal 0.0-0.8 [facility] Comment on above: Performed By: #### C RP, TSH3, ESR, BMP, BHOB, LIPASE, HEPATIC, SCAN CBC, PT #### [address] [place] [address] [place] Automated eosinophil %Ordere d By: Jena Cohen on 11-23-2023 Eosinophils/100 WBC (Bld) 4.4 % Normal . [facility] Comment on above: Performed By: #### C RP, TSH3, ESR, BMP, BHOB, LIPASE, HEPATIC, SCAN CBC, PT #### [facility] [address] Automated eosinophil countOr dered By: Jena Cohen on 11-23-2023 Eosinophils (Bld) [#/Vol] 0.2 10*3/uL Normal 0.0-0.45 [facility] Comment on above: Performed By: #### C RP, TSH3, ESR, BMP, BHOB, LIPASE, HEPATIC, SCAN CBC, PT #### [facility] [address] Automated monocyte %Ordered By: Jena Cohen on 11-23-2023 Monocytes/100 WBC (Bld) 10.4 % Normal . [facility] Comment on above: Performed By: #### C RP, TSH3, ESR, BMP, BHOB, LIPASE, HEPATIC, SCAN CBC, PT #### [facility] [address] Automated neutrophil %Ordere d By: Jena Cohen on 11-23-2023 Neutrophils/100 WBC (Bld) 62.1 % Normal . [facility] Comment on above: Performed By: #### C RP, TSH3, ESR, BMP, BHOB, LIPASE, HEPATIC, SCAN CBC, PT #### [facility] [address] Basic Metabolic Panelon 10-31 GFR/1.73 sq M.predicted MDRD (S/P/Bld) [Vol rate/Area] mL/min/{1.73_m2} Normal [facility] Comment on above: Performed By: #### C RP, TSH3, ESR, BMP, BHOB, LIPASE, HEPATIC, SCAN CBC, PT #### [address] Bilirubin.direct [Mass/volum e] in Serum or PlasmaOrdered By: Jena Cohen on 11-23-2023 Bilirubin.direct [Mass/Vol] 0.70 mg/dL High 0.03-0.18 [facility] Bilirubin.total [Mass/volume ] in Serum or PlasmaOrdered By: Jena Cohen on 11-23-2023 Bilirubin [Mass/Vol] 1.5 mg/dL High 0.3-1.0 [facility] Comment on above: Samples from patient s who have taken Naproxen have shown spurious elevation in Total Bilirubin levels. A metabolite of Naproxen, O-desmethylnaproxen, has been shown to interfere with the Jendrassik-Grof method for measuring Total Bilirubin. Result Comment: Samp les from patients who have taken Naproxen have shown spurious elevation in Total Bilirubin levels. A metabolite of Naproxen, O-desmethylnaproxen, has been shown to interfere with the Jendrassik-Grof method for measuring Total Bilirubin. Performed By: #### C RP, TSH3, ESR, BMP, BHOB, LIPASE, HEPATIC, SCAN CBC, PT #### [facility] [address] [place] [address] [place] Calcium [Mass/volume] in Ser um or PlasmaOrdered By: Jena Cohen on 11-23-2023 Calcium [Mass/Vol] 8.0 mg/dL Low 8.6-10.3 [facility] Comment on above: Result Comment: PERF ORMED BY: [facility] [address] [place] [address] PATHOLOGIST BUILDING ENGINEER CLAU PONCE M.D. Performed By: #### C RP, TSH3, ESR, BMP, BHOB, LIPASE, HEPATIC, SCAN CBC, PT #### [facility] [address] [place] [id number] [place] Carbon dioxide, total [Moles /volume] in Serum or PlasmaOrdered By: Jena Cohen on 11-23-2023 CO2 [Moles/Vol] 25.9 mmol/L Normal 21.0-31.0 [facility] Comment on above: Performed By: #### C RP, TSH3, ESR, BMP, BHOB, LIPASE, HEPATIC, SCAN CBC, PT #### [facility] [address] [place] [address] [place] Chloride [Moles/volume] in S michael or PlasmaOrdered By: Jena Cohen on 11-23-2023 Chloride [Moles/Vol] 103 mmol/L Normal 98-107 [facility] Comment on above: Performed By: #### C RP, TSH3, ESR, BMP, BHOB, LIPASE, HEPATIC, SCAN CBC, PT #### [facility] [address] Creatinine [Mass/volume] in Serum or PlasmaOrdered By: Jena Cohen on 11-23-2023 Creatinine [Mass/Vol] 0.61 mg/dL Normal 0.60-1.20 [facility] Comment on above: Performed By: #### C RP, TSH3, ESR, BMP, BHOB, LIPASE, HEPATIC, SCAN CBC, PT #### [facility] [address] Erythrocyte distribution wid th [Ratio] by Automated countOrdered By: Jena Cohen on 11-23-2023 Erythrocyte distribution width (RBC) [Ratio] 20.5 % High 11.9-15.3 [facility] Comment on above: Performed By: #### C RP, TSH3, ESR, BMP, BHOB, LIPASE, HEPATIC, SCAN CBC, PT #### [facility] [address] [place] [address] [place] Erythrocytes [#/volume] in B lood by Automated countOrdered By: Jena Cohen on 11-23-2023 RBC (Bld) [#/Vol] 4.48 10*6/uL Normal 3.60-5.00 [facility] Comment on above: Performed By: #### C RP, TSH3, ESR, BMP, BHOB, LIPASE, HEPATIC, SCAN CBC, PT #### [facility] [address] [place] [address] [place] Glucose [Mass/volume] in Ser um or PlasmaOrdered By: Jena Cohen on 11-23-2023 Glucose [Mass/Vol] 334 mg/dL High 70-100 [facility] Comment on above: ADA recommended refe rence rangeRandom Glucose Reference Range is dependent on time and content of last meal. Glucose of more than 200 mg/dL in a nonstressed, ambulatory subject supports the diagnosis of Diabetes Mellitus. Result Comment: [place] om Glucose Reference Range is dependent on time and content of last meal. Glucose of more than 200 mg/dL in a nonstressed, ambulatory subject supports the diagnosis of Diabetes Mellitus. ADA recommended reference range Performed By: #### C RP, TSH3, ESR, BMP, BHOB, LIPASE, HEPATIC, SCAN CBC, PT #### [facility] [address] Hematocrit [Volume Fraction] of Blood by Automated countOrdered By: Jena Cohen on 11-23-2023 Hematocrit (Bld) [Volume fraction] 31.2 % Low 34.0-46.4 [facility] Comment on above: Performed By: #### C RP, TSH3, ESR, BMP, BHOB, LIPASE, HEPATIC, SCAN CBC, PT #### [facility] [address] Hemoglobin [Mass/volume] in BloodOrdered By: Jena Cohen on 11-23-2023 Hemoglobin (Bld) [Mass/Vol] 9.7 g/dL Low 11.8-15.4 [facility] Comment on above: Performed By: #### C RP, TSH3, ESR, BMP, BHOB, LIPASE, HEPATIC, SCAN CBC, PT #### [facility] [address] Hepatic Panelon 11-23-2023 Albumin [Mass/Vol] 2.8 g/dL Low 3.5-5.7 [facility] Comment on above: Performed By: #### C RP, TSH3, ESR, BMP, BHOB, LIPASE, HEPATIC, SCAN CBC, PT #### [facility] [address] Bilirubin,Indirect 0.8 mg/dL Normal [facility] Comment on above: Performed By: #### C RP, TSH3, ESR, BMP, BHOB, LIPASE, HEPATIC, SCAN CBC, PT #### [facility] [address] Bilirubin.indirect [Mass/Vol] 0.70 mg/dL High 0.03-0.18 [facility] Comment on above: Performed By: #### C RP, TSH3, ESR, BMP, BHOB, LIPASE, HEPATIC, SCAN CBC, PT #### [address] Hypochromia LM Ql (Bld)Order ed By: Jena Cohen on 11-23-2023 Hypochromia Ql (Bld) Moderate [facility] INR in Platelet poor plasma by Coagulation assayOrdered By: Jena Cohen on 11-23-2023 INR Coag (PPP) [Relative time] 1.2 {INR} Normal [facility] Comment on above: INR Therapeutic Rang e A) Pre- and Peroperative OAT started two weeks before surgery. NOT HIP SURGERY: 1.5 - 2.5 HIP SURGERY: 2 - 3B) Primary and secondary prevention of venous THROMBOSIS: 2 - 3C) Active venous thrombosis, pulmonary embolismand prevention of recurrent venous thrombosis: 2 - 3D) Prevention of arterial thromboembolismincluding patients with mechanical heart valves: 3 - 4.5 Result Comment: INR Therapeutic Range A) Pre- and Peroperative OAT started two weeks before surgery. NOT HIP SURGERY: 1.5 - 2.5 HIP SURGERY: 2 - 3 B) Primary and secondary prevention of venous THROMBOSIS: 2 - 3 C) Active venous thrombosis, pulmonary embolism and prevention of recurrent venous thrombosis: 2 - 3 D) Prevention of arterial thromboembolism including patients with mechanical heart valves: 3 - 4.5 PERFORMED BY: [place] [address] PATHOLOGIST BUILDING ENGINEER CLAU PONCE M.D. Performed By: #### C RP, TSH3, ESR, BMP, BHOB, LIPASE, HEPATIC, SCAN CBC, PT #### [address] Leukocytes [#/volume] correc lyly for nucleated erythrocytes in Blood by Automated counOrdered By: Jena Cohen on 11-23-2023 WBC corrected for nucl RBC Auto (Bld) [#/Vol] 3.7 10*3/uL Low 3.8-11.6 [facility] Leukocytes [#/volume] in Blo od by Automated countOrdered By: Jena Cohen on 11-23-2023 WBC (Bld) [#/Vol] 3.7 10*3/uL Low 3.8-11.6 [facility] Comment on above: Performed By: #### C RP, TSH3, ESR, BMP, BHOB, LIPASE, HEPATIC, SCAN CBC, PT #### [address] Lymphocytes [#/volume] in Bl ood by Automated countOrdered By: Jena Cohen on 11-23-2023 Lymphocytes (Bld) [#/Vol] 0.8 10*3/uL Low 1.00-4.8 [facility] Comment on above: Performed By: #### C RP, TSH3, ESR, BMP, BHOB, LIPASE, HEPATIC, SCAN CBC, PT #### [facility] [address] Lymphocytes/100 leukocytes i n Blood by Automated countOrdered By: Jena Cohen on 11-23-2023 Lymphocytes/100 WBC (Bld) 22.1 % Normal . [facility] Comment on above: Performed By: #### C RP, TSH3, ESR, BMP, BHOB, LIPASE, HEPATIC, SCAN CBC, PT #### [facility] [address] MCH [Entitic mass] by Automa lyly countOrdered By: Jena Cohen on 11-23-2023 MCH (RBC) [Entitic mass] 21.7 pg Low 24.7-34.3 [facility] Comment on above: Performed By: #### C RP, TSH3, ESR, BMP, BHOB, LIPASE, HEPATIC, SCAN CBC, PT #### [address] MCHC Auto (RBC) [Mass/Vol]Or dered By: Jena Cohen on 11-23-2023 MCHC (RBC) [Mass/Vol] 31.2 g/dL Low 32.0-35.0 [facility] MCV [Entitic volume] by Auto mated countOrdered By: Jena Cohen on 11-23-2023 MCV (RBC) [Entitic vol] 69.6 fL Low 80-100 [facility] Comment on above: Performed By: #### C RP, TSH3, ESR, BMP, BHOB, LIPASE, HEPATIC, SCAN CBC, PT #### [facility] [address] Magnesium [Mass/volume] in S michael or PlasmaOrdered By: Mickey Lovett on 11-23-2023 Magnesium [Mass/Vol] 1.7 mg/dL Low 1.9-2.7 [facility] Comment on above: Performed By: #### C RP, TSH3, ESR, BMP, BHOB, LIPASE, HEPATIC, SCAN CBC, PT #### [facility] [address] Microcytes LM Ql (Bld)Ordere d By: Jena Cohen on 11-23-2023 Microcytes Ql (Bld) Moderate [facility] Neutrophils [#/volume] in Bl ood by Automated countOrdered By: Jena Cohen on 11-23-2023 Neutrophils (Bld) [#/Vol] 2.3 10*3/uL Normal 1.8-7.7 [facility] Comment on above: Performed By: #### C RP, TSH3, ESR, BMP, BHOB, LIPASE, HEPATIC, SCAN CBC, PT #### [facility] [address] No Panel InformationOrdered By: Jena Cohen on 11-23-2023 Estimated GFR (CKD-EPI) > 60.0 mL/Min [facility] Creatinine Clearance (Chem N/A [facility] Nucleated erythrocytes [Pres ence] in Blood by Automated countOrdered By: Jena Cohen on 11-23-2023 Nucleated RBC Auto Ql (Bld) 0.2 /100{WBC} 0-0.5 [facility] Ovalocyte detectionOrdered B y: Jena Cohen on 11-23-2023 Ovalocytes LM Ql (Bld) Slight [facility] Phosphate [Mass/volume] in S michael or PlasmaOrdered By: Mickey Lovett on 11-23-2023 Phosphate [Mass/Vol] 3.5 mg/dL Normal 2.5-4.5 [facility] Comment on above: Performed By: #### R ENAL ####[facility] [id number] Platelet adequacy [Presence] in Blood by Light microscopyOrdered By: Jena Cohen on 11-23-2023 Platelets LM Ql (Bld) Decreased Normal [facility] Platelet mean volume [Entiti c volume] in Blood by Automated countOrdered By: Jena Cohen on 11-23-2023 Platelet mean volume (Bld) [Entitic vol] 9.0 fL Normal 6.3-10.7 [facility] Comment on above: Performed By: #### C RP, TSH3, ESR, BMP, BHOB, LIPASE, HEPATIC, SCAN CBC, PT #### [facility] [address] [place] [address] [place] Platelet morphology finding [Identifier] in BloodOrdered By: Jena Cohen on 11-23-2023 Platelet morphology finding Nom (Bld) Normal Normal [facility] Platelets [#/volume] in Bloo d by Automated countOrdered By: Jena Cohen on 11-23-2023 Platelets (Bld) [#/Vol] 63 10*3/uL Low 150-450 [facility] Comment on above: Performed By: #### C RP, TSH3, ESR, BMP, BHOB, LIPASE, HEPATIC, SCAN CBC, PT #### [facility] [address] [place] [address] [place] Poikilocytosis [Presence] in Blood by Light microscopyOrdered By: Jena Cohen on 11-23-2023 Poikilocytosis LM Ql (Bld) [facility] Polychromasia [Presence] in Blood by Light microscopyOrdered By: Jena Cohen on 11-23-2023 Polychromasia LM Ql (Bld) [facility] Potassium [Moles/volume] in Serum or PlasmaOrdered By: Jena Cohen on 11-23-2023 Potassium [Moles/Vol] 4.1 mmol/L Normal 3.5-5.1 [facility] Comment on above: Performed By: #### C RP, TSH3, ESR, BMP, BHOB, LIPASE, HEPATIC, SCAN CBC, PT #### [facility] [address] Protein [Mass/volume] in Ser um or PlasmaOrdered By: Jena Cohen on 11-23-2023 Protein [Mass/Vol] 6.9 g/dL Normal 6.4-8.9 [facility] Comment on above: Performed By: #### C RP, TSH3, ESR, BMP, BHOB, LIPASE, HEPATIC, SCAN CBC, PT #### [facility] [address] Prothrombin time (PT)Ordered By: Jena Cohen on 11-23-2023 PT Coag (PPP) [Time] 14.2 s High 9.0-12.9 [facility] Comment on above: A hematocrit value g reater than 55% may lead to inaccurate results in coagulation testing. Patients having hematocrit values >55% require a special collection tube for coagulation studies. Please contact the laboratory at [phone] for redraw instructions. Result Comment: A he matocrit value greater than 55% may lead to inaccurate results in coagulation testing. Patients having hematocrit values >55% require a special collection tube for coagulation studies. Please contact the laboratory at [phone] for redraw instructions. Performed By: #### C RP, TSH3, ESR, BMP, BHOB, LIPASE, HEPATIC, SCAN CBC, PT #### [facility] [address] RBC morphologyOrdered By: Mirian Cohen on 11-23-2023 RBC morphology finding Nom (Bld) N/A [facility] Renal Function Panelon 11-22 Albumin [Mass/Vol] 2.7 g/dL Low 3.5-5.7 [facility] Comment on above: Result Comment: PERF ORMED BY: [facility] [place] [id number] PATHOLOGIST BUILDING ENGINEER CLAU PONCE M.D. Performed By: #### R ENAL ####[place] [id number] [facility] Anion gap [Moles/Vol] 7.0 mmol/L Normal 6.0-15.0 [facility] Comment on above: Performed By: #### R ENAL ####[address] Calcium [Mass/Vol] 7.9 mg/dL Low 8.6-10.3 [facility] Comment on above: Performed By: #### R ENAL ####[address] Chloride [Moles/Vol] 103 mmol/L Normal 98-107 [facility] Comment on above: Performed By: #### R ENAL ####[address] CO2 [Moles/Vol] 26.1 mmol/L Normal 21.0-31.0 [facility] Comment on above: Performed By: #### R ENAL ####[address] Creatinine [Mass/Vol] 0.61 mg/dL Normal 0.60-1.20 [facility] Comment on above: Performed By: #### R ENAL ####[address] GFR/1.73 sq M.predicted MDRD (S/P/Bld) [Vol rate/Area] mL/min/{1.73_m2} Normal [facility] Comment on above: Performed By: #### R ENAL ####[address] Glucose [Mass/Vol] 337 mg/dL High 70-100 [facility] Comment on above: Result Comment: [place] Glucose Reference Range is dependent on time and content of last meal. Glucose of more than 200 mg/dL in a nonstressed, ambulatory subject supports the diagnosis of Diabetes Mellitus. ADA recommended reference range Performed By: #### R ENAL ####[place] [id number] Potassium [Moles/Vol] 4.1 mmol/L Normal 3.5-5.1 [facility] Comment on above: Performed By: #### R ENAL ####[place] [address] Sodium [Moles/Vol] 132 mmol/L Low 136-145 [facility] Comment on above: Performed By: #### R ENAL ####[place] [address] Urea nitrogen [Mass/Vol] 10 mg/dL Normal 7-25 [facility] Comment on above: Performed By: #### R ENAL ####[address] Scan and CBCon 11-23-2023 Hypochromasia Moderate Normal [facility] Comment on above: Performed By: #### C RP, TSH3, ESR, BMP, BHOB, LIPASE, HEPATIC, SCAN CBC, PT #### [facility] [address] Mean Corpuscular HGB Conc 31.2 g/dL Low 32.0-35.0 [facility] Comment on above: Performed By: #### C RP, TSH3, ESR, BMP, BHOB, LIPASE, HEPATIC, SCAN CBC, PT #### [facility] [address] Microcytosis Moderate Normal [facility] Comment on above: Performed By: #### C RP, TSH3, ESR, BMP, BHOB, LIPASE, HEPATIC, SCAN CBC, PT #### [facility] [address] NRBC% 0.2 /100{WBC} Normal 0-0.5 [facility] Comment on above: Performed By: #### C RP, TSH3, ESR, BMP, BHOB, LIPASE, HEPATIC, SCAN CBC, PT #### [address] Ovalocytes Slight Normal [facility] Comment on above: Performed By: #### C RP, TSH3, ESR, BMP, BHOB, LIPASE, HEPATIC, SCAN CBC, PT #### [facility] [address] Platelet Estimate Decreased Normal Normal [facility] Comment on above: Performed By: #### C RP, TSH3, ESR, BMP, BHOB, LIPASE, HEPATIC, SCAN CBC, PT #### [facility] [address] Platelet Morphology Normal Normal Normal [facility] Comment on above: Result Comment: PERF ORMED BY: [place] [address] PATHOLOGIST BUILDING ENGINEER CLAU PONCE M.D. Performed By: #### C RP, TSH3, ESR, BMP, BHOB, LIPASE, HEPATIC, SCAN CBC, PT #### [address] Poikilocytosis Slight Normal [facility] Comment on above: Performed By: #### C RP, TSH3, ESR, BMP, BHOB, LIPASE, HEPATIC, SCAN CBC, PT #### [address] Polychromasia Slight Normal [facility] Comment on above: Performed By: #### C RP, TSH3, ESR, BMP, BHOB, LIPASE, HEPATIC, SCAN CBC, PT #### [address] Tear Drop Cells Slight Normal [facility] Comment on above: Performed By: #### C RP, TSH3, ESR, BMP, BHOB, LIPASE, HEPATIC, SCAN CBC, PT #### [address] Serum globulin measurement b y calculation (mass/volume)Ordered By: Jena Cohen on 11-23-2023 Globulin (S) [Mass/Vol] 4.1 g/dL Normal [facility] Comment on above: Performed By: #### C RP, TSH3, ESR, BMP, BHOB, LIPASE, HEPATIC, SCAN CBC, PT #### [facility] [address] Serum or plasma albumin/glob ulin mass ratioOrdered By: Jena Cohen on 11-23-2023 Albumin/Globulin [Mass ratio] 0.7 {ratio} Normal [facility] Comment on above: Performed By: #### C RP, TSH3, ESR, BMP, BHOB, LIPASE, HEPATIC, SCAN CBC, PT #### [facility] [address] Serum or plasma [id number] protein tumor marker measurement (mass/volume)Ordered By: Jena Cohen on 11-23-2023 AFP.tumor marker [Mass/Vol] ng/mL 0.0-9.2 [facility] Comment on above: [employer] El ectrochemiluminescence Immunoassay(ECLIA)Values obtained with different assay methods or kits cannotbe used interchangeably. Results cannot be interpreted asabsolute evidence of the presence or absence of malignantdisease.This test is not interpretable in females.Performed at: [facility] Director: Bret Montogmery PhD, Phone: [phone] Serum or plasma anion gap de terminationOrdered By: Jena Cohen on 11-23-2023 Anion gap [Moles/Vol] 7.2 mmol/L Normal 6.0-15.0 [facility] Comment on above: Performed By: #### C RP, TSH3, ESR, BMP, BHOB, LIPASE, HEPATIC, SCAN CBC, PT #### [address] Serum or plasma non-glucuron idated bilirubin measurement (mass/volume)Ordered By: Jena Cohen on 11-23-2023 Bilirubin.indirect [Mass/Vol] 0.8 mg/dL [facility] Sodium [Moles/volume] in Ser um or PlasmaOrdered By: Jena Cohen on 11-23-2023 Sodium [Moles/Vol] 132 mmol/L Low 136-145 [facility] Comment on above: Performed By: #### C RP, TSH3, ESR, BMP, BHOB, LIPASE, HEPATIC, SCAN CBC, PT #### [facility] [address] Teardrop cell detectionOrder ed By: Jena Cohen on 11-23-2023 Dacrocytes LM Ql (Bld) Slight [facility] Urea nitrogen [Mass/volume] in Serum or PlasmaOrdered By: Jena Cohen on 11-23-2023 Urea nitrogen [Mass/Vol] 10 mg/dL Normal 7-25 [facility] Comment on above: Performed By: #### C RP, TSH3, ESR, BMP, BHOB, LIPASE, HEPATIC, SCAN CBC, PT #### [facility] [address] [place] [id number] [facility] Vitamin D 25 Hydroxy Totalon 11-23-2023 Vitamin D 25 Hydroxy Total 25.6 ng/mL Low 30-100 [facility] Comment on above: Result Comment: DEVAN MIN D STATUS 25(OH)VITAMIN D RANGE (ng/mL) Deficient <20 Insufficient 20 to <30 Sufficient 30 to 100 Reference: Benson Teran, Bola GIRON, et al. Evaluation,treatment, and prevention of vitamin D deficiency; an Endocrine Society clinical practice guideline. JCEM. 2010; 96(7):1911-30. PERFORMED BY: [place] [address] PATHOLOGIST BUILDING ENGINEER CLAU PONCE M.D. Performed By: #### C RP, TSH3, ESR, BMP, BHOB, LIPASE, HEPATIC, SCAN CBC, PT #### [facility] [address] [place] [id number] [facility] Vitamin D+Metabolites [Mass/ volume] in Serum or PlasmaOrdered By: Mickey Lovett on 11-23-2023 Vitamin D+Metabolites [Mass/Vol] 25.6 ng/mL Low 30-100 [facility] Comment on above: VITAMIN D STATUS 25( OH)VITAMIN D RANGE (ng/mL) Deficient <20 Insufficient 20 to <30Sufficient 30 to 100Reference: Benson Teran, Bola GIRON, et al. Evaluation,treatment, and prevention of vitamin D deficiency; an Endocrine Society clinical practice guideline. JCEM. 2010; 96(7):1911-30. Consultation Noteon 07-22-19 Consultation Note [id number] Normal [facility] Record[facility] 2023 Home Health Records [id number] Normal [facility] Alanine aminotransferase [En zymatic activity/volume] in Serum or PlasmaOrdered By: Ajay Elam on 07-16-2023 ALT [Catalytic activity/Vol] 19 U/L 7-52 [facility] Albumin [Mass/volume] in Ser um or Plasma by Bromocresol green (BCG) dye binding methoOrdered By: Ajay Elam on 07-16-2023 Albumin BCG dye [Mass/Vol] 2.8 g/dL 3.5-5.7 [facility] Alkaline phosphatase [Enzyma tic activity/volume] in Serum or PlasmaOrdered By: Ajay Elam on 07-16-2023 ALP [Catalytic activity/Vol] 227 U/L 34-104 [facility] Aspartate aminotransferase [ Enzymatic activity/volume] in Serum or PlasmaOrdered By: Ajay Elam on 07-16-2023 AST [Catalytic activity/Vol] 36 U/L 13-39 [facility] Bilirubin.total [Mass/volume ] in Serum or PlasmaOrdered By: Ajay Elam on 07-16-2023 Bilirubin [Mass/Vol] 1.5 mg/dL 0.3-1.0 [facility] Comment on above: Samples from patient s who have taken Naproxen have shown spurious elevation in Total Bilirubin levels. A metabolite of Naproxen, O-desmethylnaproxen, has been shown to interfere with the Ashley method for measuring Total Bilirubin. Calcium [Mass/volume] in Ser um or PlasmaOrdered By: Ajay Elam on 07-16-2023 Calcium [Mass/Vol] 8.3 mg/dL 8.6-10.3 [facility] Carbon dioxide, total [Moles /volume] in Serum or PlasmaOrdered By: Ajay Elam on 07-16-2023 CO2 [Moles/Vol] 26.4 mmol/L 21.0-31.0 [facility] Chloride [Moles/volume] in S michael or PlasmaOrdered By: Ajay Elam on 07-16-2023 Chloride [Moles/Vol] 103 mmol/L 98-107 [facility] Cholesterol [Mass/volume] in Serum or PlasmaOrdered By: Ajay Elam on 07-16-2023 Cholesterol [Mass/Vol] 116 mg/dL 140-200 [facility] Comment on above: Chol less than 200 m g/dl low riskChol 201-239 mg/dl borderline riskChol 240 mg/dl and greater high risk Cholesterol in LDL Calc [Mas s/Vol]Ordered By: Ajay Elam on 07-16-2023 Cholesterol in LDL [Mass/Vol] 55 mg/dL 0-100 [facility] Comment on above: LDL ATP III CLASSIFI CATIONLDL less than 100 mg/dL OptimalLDL 100-129 mg/dL Near or above optimalLDL 130-159 mg/dL Borderline highLDL 160-189 mg/dL HighLDL greater than 189 mg/dL Very high Cholesterol in VLDL Calc [Ma ss/Vol]Ordered By: Ajay Elam on 07-16-2023 Cholesterol in VLDL [Mass/Vol] 15 mg/dL [facility] Creatinine [Mass/volume] in Serum or PlasmaOrdered By: Ajay Elam on 07-16-2023 Creatinine [Mass/Vol] 0.55 mg/dL 0.60-1.20 [facility] Creatinine [Mass/volume] in UrineOrdered By: Ajay Elam on 07-16-2023 Creatinine (U) [Mass/Vol] 81.0 mg/dL [facility] Comment on above: No reference range e stablished Globulin Calc (S) [Mass/Vol] Ordered By: Ajay Elam on 07-16-2023 Globulin (S) [Mass/Vol] 4.2 g/dL [facility] Glucose [Mass/volume] in Ser um or PlasmaOrdered By: Ajay Elam on 07-16-2023 Glucose [Mass/Vol] 197 mg/dL 70-100 [facility] Comment on above: ADA recommended refe rence rangeRandom Glucose Reference Range is dependent on time and content of last meal. Glucose of more than 200 mg/dL in a nonstressed, ambulatory subject supports the diagnosis of Diabetes Mellitus. Glucose mean value [Mass/vol ume] in Blood Estimated from glycated hemoglobinOrdered By: Ajay Elam on 07-16-2023 Average glucose Estimated from glycated hemoglobin (Bld) [Mass/Vol] 237 mg/dL [facility] Hemoglobin A1c percentageOrd ered By: Ajay Elam on 07-16-2023 HbA1c (Bld) [Mass fraction] 9.9 % 4.3-5.6 [facility] Comment on above: Increased risk for d iabetes: 5.7 - 6.4diabetes: >6.4glycemic control for adults with diabetes: <7.0 Microalbumin [Mass/volume] i n UrineOrdered By: Ajay Elam on 07-16-2023 Albumin DL <= 20 mg/L (U) [Mass/Vol] mg/dL 0.0-1.8 [facility] No Panel InformationOrdered By: Ajay Elam on 07-16-2023 Estimated GFR (CKD-EPI) > 60.0 mL/Min [facility] Creatinine Clearance (Chem N/A [facility] Potassium [Moles/volume] in Serum or PlasmaOrdered By: Ajay Elam on 07-16-2023 Potassium [Moles/Vol] 4.6 mmol/L 3.5-5.1 [facility] Protein [Mass/volume] in Ser um or PlasmaOrdered By: Ajay Elam on 07-16-2023 Protein [Mass/Vol] 7.0 g/dL 6.4-8.9 [facility] Serum or plasma albumin/glob ulin mass ratioOrdered By: Ajay Elam on 07-16-2023 Albumin/Globulin [Mass ratio] 0.7 {ratio} [facility] Serum or plasma anion gap de terminationOrdered By: Ajay Elam on 07-16-2023 Anion gap [Moles/Vol] 8.2 mmol/L 6.0-15.0 [facility] Serum or plasma high density lipoprotein (HDL) cholesterol measurementOrdered By: Ajay Elam on 07-16-2023 Cholesterol in HDL [Mass/Vol] 45 mg/dL 23-92 [facility] Comment on above: HDL CHOL ATP-III CLA SSIFICATION Cardiovascular RiskHDL > or equal to 60 mg/dL LOWHDL < 40 mg/dL HIGH Serum or plasma total choles terol/high density lipoprotein (HDL) cholesterol mass ratOrdered By: Ajay Elam on 07-16-2023 Cholesterol.total/Cho lesterol in HDL [Mass ratio] 2.6 {ratio} <5.0 [facility] Sodium [Moles/volume] in Ser um or PlasmaOrdered By: Ajay Elam on 07-16-2023 Sodium [Moles/Vol] 133 mmol/L 136-145 [facility] Triglyceride [Mass/volume] i n Serum or PlasmaOrdered By: Ajay Elam on 07-16-2023 Triglyceride [Mass/Vol] 79 mg/dL 0-149 [facility] Comment on above: TRIG ATP III CLASSIF ICATIONTRIG less than 150 mg/dL NormalTRIG 150-199 mg/dL Borderline highTRIG 200-500 mg/dL High TRIG greater than 500 mg/dL Very highStandard traceable to the Center for Disease Conrtrol and Prevention (CDC) test method. Urea nitrogen [Mass/volume] in Serum or PlasmaOrdered By: Ajay Elam on 07-16-2023 Urea nitrogen [Mass/Vol] 11 mg/dL 7- [facility] Urine microalbumin/creatinin e mass ratioOrdered By: Ajay Elam on 07-16-2023 Albumin/Creatinine DL <= 20 mg/L (U) [Mass ratio] TNP [facility] Comment on above: Test not performed [facility] Health Record[facility] 2023 Home Health Records [id number] Normal [facility] No Panel InformationOrdered By: Ccf Provider on 07-05-2023 Interpretation and review of laboratory results Abnormal [facility] Radiology Result ACTIONABLE Abnormal [facility] Comment on above: This report contains an incidental or actionable finding. This finding may be a new finding separate from the reason your provider ordered the imaging test or it may be an already known finding that needs additional or continued follow-up. Because of this incidental or actionable finding, you may need another test (imaging or a different type of test). Please contact your provider for the next steps. [facility] No Panel Informationon 07-04 IMPRESSION: PATENT TIPS WITHOUT VELOCITY GRADIENT. PATENT HEPATIC VASCULATURE WITH APPROPRIATELY DIRECTED FLOW. CIRRHOTIC LIVER MORPHOLOGY. NO HEPATIC LESION. NO SPLENOMEGALY OR ASCITES. TWO SUBCENTIMETER ANECHOIC/HYPOECHOIC PANCREAS HEAD LESIONS WHICH WERE NOT VISUALIZED ON PRIOR ULTRASOUND, AND ARE EVALUATED WITH LIMITATION ON PRIOR PORTAL VENOUS PHASE CT. AT CLINICAL DISCRETION THESE MAY BE FOLLOWED WITH MRCP/PANCREAS-BILIARY MRI. ACTIONABLE RESULT: FOLLOW-UP Acuity: Actionable Findings: Pancreas/Biliary Routing Code: PB_1 Recommendation: MRI PANCREAS/BILIARY WO/W IV CONTRAST Time Frame: At the discretion of the clinical team. COMMUNICATION: Results will be communicated with the ordering provider via [employer] staff message or phone message by [facility] Support Services within 2 business days of report finalization. --END OF FINDING-- [employer]ire Finisher: [employer] Transcribe Date/Time: Jul 05 2023 1:50P Dictated by : VERONA SANDRA MD This examination was interpreted and the report reviewed and electronically signed by: VERONA SANDRA MD on Jul 05 2023 2:01PM [facility] DIVISION OF RADIOLOGY Radiology Study observation (narrative) [facility] US.doppler Abdominal vessels on 07-05-2023 * * *Final Report* * * DATE OF EXAM: Jul 05 2023 1:15PM [facility] 1233 - US ABD LIVER VASCULAR / PROCEDURE REASON: S/P TIPS (transjugular intrahepatic portosystemic shunt) * * * * Physician Interpretation * * * * EXAMINATION: LIVER VASCULAR ULTRASOUND WITH DOPPLER IMAGING CLINICAL HISTORY: Cirrhosis, status post TIPS TECHNIQUE: Sonography of the liver with color and spectral Doppler imaging of the hepatic vasculature was performed. Images were obtained and stored in a permanent archive. MQ: [id number] COMPARISON: CT 05/24/2023, liver vascular ultrasound 06/03/2023 RESULT: Sonographic Findings: Pancreas: Normal sonographic appearance. Portions obscured: tail Other: 0.5 x 1.0 cm low-attenuation/anechoic ventral pancreas head lesion corresponding to a small low-attenuation lesion on prior CT (3:38), likely a small side branch IPMN. In addition, there is a 1.0 x 0.7 cm lesion more inferiorly the pancreas head not well imaged on the prior exam. Liver: Echotexture: Coarse Echogenicity: Heterogeneous Surface contour: Nodular Lesions: None. Biliary: No intrahepatic biliary duct dilation. CBD: 0.2 cm at the hilum. Gallbladder: Prior cholecystectomy Right Kidney: No hydronephrosis. Spleen: Craniocaudal length 10.0 cm, normal. There are no splenic lesions. Other: No significant ascites HEPATIC VASCULATURE: PORTAL SYSTEM: -Splenic Vein: Patent with antegrade flow (towards the liver). -Main PV: Patent with phasic antegrade flow (towards liver and TIPS). 41 cm/sec -Right anterior PV: Patent with retrograde flow (towards TIPS). -Right posterior PV: Not identified separately from the TIPS. -Left PV: Patent with retrograde flow (towards TIPS). Splenorenal shunt: Area obscured Recanalized paraumbilical vein: Present TIPS extends from the right hepatic vein to the right portal vein. The TIPS is patent. Stent near portal vein: 95 cm/s Mid stent: 140 - 150 cm/s Stent near hepatic vein: 144 cm/s HEPATIC ARTERIES: - Main GIRON: Normal waveform PSV: 86-104 cm/sec. RI: 0.77, 0.78 - Right anterior GIRON: Normal waveform - Right posterior GIRON: Normal waveform - Left GIRON: Normal waveform HEPATIC VEINS: -Left: Patent with triphasic waveform. -Middle: Patent with triphasic waveform. -Right: Patent with triphasic waveform. IVC: Patent with normal, phasic wave form. DIVISION OF RADIOLOGY Provider, [facility] - 07/05/2023 * * *Final Report* * * DATE OF EXAM: Jul 05 2023 1:15PM JOSE 1233 - US ABD LIVER VASCULAR / PROCEDURE REASON: S/P TIPS (transjugular intrahepatic portosystemic shunt) * * * * Physician Interpretation * * * * EXAMINATION: LIVER VASCULAR ULTRASOUND WITH DOPPLER IMAGING CLINICAL HISTORY: Cirrhosis, status post TIPS TECHNIQUE: Sonography of the liver with color and spectral Doppler imaging of the hepatic vasculature was performed. Images were obtained and stored in a permanent archive. MQ: USLV_1 COMPARISON: CT 05/24/2023, liver vascular ultrasound 06/03/2023 RESULT: Sonographic Findings: Pancreas: Normal sonographic appearance. Portions obscured: tail Other: 0.5 x 1.0 cm low-attenuation/anechoic ventral pancreas head lesion corresponding to a small low-attenuation lesion on prior CT (3:38), likely a small side branch IPMN. In addition, there is a 1.0 x 0.7 cm lesion more inferiorly the pancreas head not well imaged on the prior exam. Liver: Echotexture: Coarse Echogenicity: Heterogeneous Surface contour: Nodular Lesions: None. Biliary: No intrahepatic biliary duct dilation. CBD: 0.2 cm at the hilum. Gallbladder: Prior cholecystectomy Right Kidney: No hydronephrosis. Spleen: Craniocaudal length 10.0 cm, normal. There are no splenic lesions. Other: No significant ascites HEPATIC VASCULATURE: PORTAL SYSTEM: -Splenic Vein: Patent with antegrade flow (towards the liver). -Main PV: Patent with phasic antegrade flow (towards liver and TIPS). 41 cm/sec -Right anterior PV: Patent with retrograde flow (towards TIPS). -Right posterior PV: Not identified separately from the TIPS. -Left PV: Patent with retrograde flow (towards TIPS). Splenorenal shunt: Area obscured Recanalized paraumbilical vein: Present TIPS extends from the right hepatic vein to the right portal vein. The TIPS is patent. Stent near portal vein: 95 cm/s Mid stent: 140 - 150 cm/s Stent near hepatic vein: 144 cm/s HEPATIC ARTERIES: - Main GIRON: Normal waveform PSV: 86-104 cm/sec. RI: 0.77, 0.78 - Right anterior GIRON: Normal waveform - Right posterior GIRON: Normal waveform - Left GIRON: Normal waveform HEPATIC VEINS: -Left: Patent with triphasic waveform. -Middle: Patent with triphasic waveform. -Right: Patent with triphasic waveform. IVC: Patent with normal, phasic wave form. IMPRESSION IMPRESSION: PATENT TIPS WITHOUT VELOCITY GRADIENT. PATENT HEPATIC VASCULATURE WITH APPROPRIATELY DIRECTED FLOW. CIRRHOTIC LIVER MORPHOLOGY. NO HEPATIC LESION. NO SPLENOMEGALY OR ASCITES. TWO SUBCENTIMETER ANECHOIC/HYPOECHOIC PANCREAS HEAD LESIONS WHICH WERE NOT VISUALIZED ON PRIOR ULTRASOUND, AND ARE EVALUATED WITH LIMITATION ON PRIOR PORTAL VENOUS PHASE CT. AT CLINICAL DISCRETION THESE MAY BE FOLLOWED WITH MRCP/PANCREAS-BILIARY MRI. ACTIONABLE RESULT: FOLLOW-UP Acuity: Actionable Findings: Pancreas/Biliary Routing Code: PB_1 Recommendation: MRI PANCREAS/BILIARY WO/W IV CONTRAST Time Frame: At the discretion of the clinical team. COMMUNICATION: Results will be communicated with the ordering provider via [employer] staff message or phone message by Imaging Support Services within 2 business days of report finalization. --END OF FINDING-- Tire Finisher: PSCB Transcribe Date/Time: Jul 05 2023 1:50P Dictated by : VERONA SANDRA MD This examination was interpreted and the report reviewed and electronically signed by: VERONA SANDRA MD on Jul 05 2023 2:01PM [facility] US.doppler Unspecified body regionon 07-05-2023 * * *Final Report* * * DATE OF EXAM: Jul 05 2023 1:47PM JOSE 1033 - US DOPPLER COMPLETE / PROCEDURE REASON: S/P TIPS (transjugular intrahepatic portosystemic shunt) * * * * Physician Interpretation * * * * EXAMINATION: LIVER VASCULAR ULTRASOUND WITH DOPPLER IMAGING CLINICAL HISTORY: Cirrhosis, status post TIPS TECHNIQUE: Sonography of the liver with color and spectral Doppler imaging of the hepatic vasculature was performed. Images were obtained and stored in a permanent archive. MQ: USLV_1 COMPARISON: CT 05/24/2023, liver vascular ultrasound 06/03/2023 RESULT: Sonographic Findings: Pancreas: Normal sonographic appearance. Portions obscured: tail Other: 0.5 x 1.0 cm low-attenuation/anechoic ventral pancreas head lesion corresponding to a small low-attenuation lesion on prior CT (3:38), likely a small side branch IPMN. In addition, there is a 1.0 x 0.7 cm lesion more inferiorly the pancreas head not well imaged on the prior exam. Liver: Echotexture: Coarse Echogenicity: Heterogeneous Surface contour: Nodular Lesions: None. Biliary: No intrahepatic biliary duct dilation. CBD: 0.2 cm at the hilum. Gallbladder: Prior cholecystectomy Right Kidney: No hydronephrosis. Spleen: Craniocaudal length 10.0 cm, normal. There are no splenic lesions. Other: No significant ascites HEPATIC VASCULATURE: PORTAL SYSTEM: -Splenic Vein: Patent with antegrade flow (towards the liver). -Main PV: Patent with phasic antegrade flow (towards liver and TIPS). 41 cm/sec -Right anterior PV: Patent with retrograde flow (towards TIPS). -Right posterior PV: Not identified separately from the TIPS. -Left PV: Patent with retrograde flow (towards TIPS). Splenorenal shunt: Area obscured Recanalized paraumbilical vein: Present TIPS extends from the right hepatic vein to the right portal vein. The TIPS is patent. Stent near portal vein: 95 cm/s Mid stent: 140 - 150 cm/s Stent near hepatic vein: 144 cm/s HEPATIC ARTERIES: - Main GIRON: Normal waveform PSV: 86-104 cm/sec. RI: 0.77, 0.78 - Right anterior GIRON: Normal waveform - Right posterior GIRON: Normal waveform - Left GIRON: Normal waveform HEPATIC VEINS: -Left: Patent with triphasic waveform. -Middle: Patent with triphasic waveform. -Right: Patent with triphasic waveform. IVC: Patent with normal, phasic wave form. DIVISION OF RADIOLOGY Provider, [facility] - 07/05/2023 * * *Final Report* * * DATE OF EXAM: Jul 05 2023 1:47PM JOSE 1033 - US DOPPLER COMPLETE / PROCEDURE REASON: S/P TIPS (transjugular intrahepatic portosystemic shunt) * * * * Physician Interpretation * * * * EXAMINATION: LIVER VASCULAR ULTRASOUND WITH DOPPLER IMAGING CLINICAL HISTORY: Cirrhosis, status post TIPS TECHNIQUE: Sonography of the liver with color and spectral Doppler imaging of the hepatic vasculature was performed. Images were obtained and stored in a permanent archive. MQ: USLV_1 COMPARISON: CT 05/24/2023, liver vascular ultrasound 06/03/2023 RESULT: Sonographic Findings: Pancreas: Normal sonographic appearance. Portions obscured: tail Other: 0.5 x 1.0 cm low-attenuation/anechoic ventral pancreas head lesion corresponding to a small low-attenuation lesion on prior CT (3:38), likely a small side branch IPMN. In addition, there is a 1.0 x 0.7 cm lesion more inferiorly the pancreas head not well imaged on the prior exam. Liver: Echotexture: Coarse Echogenicity: Heterogeneous Surface contour: Nodular Lesions: None. Biliary: No intrahepatic biliary duct dilation. CBD: 0.2 cm at the hilum. Gallbladder: Prior cholecystectomy Right Kidney: No hydronephrosis. Spleen: Craniocaudal length 10.0 cm, normal. There are no splenic lesions. Other: No significant ascites HEPATIC VASCULATURE: PORTAL SYSTEM: -Splenic Vein: Patent with antegrade flow (towards the liver). -Main PV: Patent with phasic antegrade flow (towards liver and TIPS). 41 cm/sec -Right anterior PV: Patent with retrograde flow (towards TIPS). -Right posterior PV: Not identified separately from the TIPS. -Left PV: Patent with retrograde flow (towards TIPS). Splenorenal shunt: Area obscured Recanalized paraumbilical vein: Present TIPS extends from the right hepatic vein to the right portal vein. The TIPS is patent. Stent near portal vein: 95 cm/s Mid stent: 140 - 150 cm/s Stent near hepatic vein: 144 cm/s HEPATIC ARTERIES: - Main GIRON: Normal waveform PSV: 86-104 cm/sec. RI: 0.77, 0.78 - Right anterior GIRON: Normal waveform - Right posterior GIRON: Normal waveform - Left GIRON: Normal waveform HEPATIC VEINS: -Left: Patent with triphasic waveform. -Middle: Patent with triphasic waveform. -Right: Patent with triphasic waveform. IVC: Patent with normal, phasic wave form. IMPRESSION IMPRESSION: PATENT TIPS WITHOUT VELOCITY GRADIENT. PATENT HEPATIC VASCULATURE WITH APPROPRIATELY DIRECTED FLOW. CIRRHOTIC LIVER MORPHOLOGY. NO HEPATIC LESION. NO SPLENOMEGALY OR ASCITES. TWO SUBCENTIMETER ANECHOIC/HYPOECHOIC PANCREAS HEAD LESIONS WHICH WERE NOT VISUALIZED ON PRIOR ULTRASOUND, AND ARE EVALUATED WITH LIMITATION ON PRIOR PORTAL VENOUS PHASE CT. AT CLINICAL DISCRETION THESE MAY BE FOLLOWED WITH MRCP/PANCREAS-BILIARY MRI. ACTIONABLE RESULT: FOLLOW-UP Acuity: Actionable Findings: Pancreas/Biliary Routing Code: PB_1 Recommendation: MRI PANCREAS/BILIARY WO/W IV CONTRAST Time Frame: At the discretion of the clinical team. COMMUNICATION: Results will be communicated with the ordering provider via [employer] staff message or phone message by Imaging Support Services within 2 business days of report finalization. --END OF FINDING-- Tire Finisher: EDDIE Transcribe Date/Time: Jul 05 2023 1:50P Dictated by : VERONA SANDRA MD This examination was interpreted and the report reviewed and electronically signed by: VERONA SANDRA MD on Jul 05 2023 2:01PM [facility] Retail - Clinical Noteon Retail - Clinical Note [id number]#1.00TIFF Normal [facility] ED Note-Physicianon 06-23-19 ED Note-Physician [id number]#1.00TIFF [facility] RAD - MISCon 06-23-2023 RAD - MISC [id number]#1.00TIFF [facility] Home Health Recordson 2023 Home Health Records [id number]#1.00TIFF [facility] Consultation Noteon 06-21-19 Consultation Note [id number]#1.00TIFF [facility] Home Health Recordson 2023 Home Health Records [id number]#1.00TIFF Normal [facility] US ABD LIVER VASCULARon US ABD LIVER VASCULAR * * *Final Report* * * DATE OF EXAM: Jun 03 2023 3:06PM FVU 1233 - US ABD LIVER VASCULAR / PROCEDURE REASON: S/P TIPS (transjugular intrahepatic portosystemic shunt) * * * * Physician Interpretation * * * * EXAMINATION: LIVER VASCULAR ULTRASOUND WITH DOPPLER IMAGING CLINICAL HISTORY: Cirrhosis post TIPS 05/28/2023. TECHNIQUE: Sonography of the liver with color and spectral Doppler imaging of the hepatic vasculature was performed. Images were obtained and stored in a permanent archive. MQ: USLV_1 COMPARISON: Ultrasound 05/25/2023, 11/15/2019, CT 05/24/2023. RESULT: Sonographic Findings: Pancreas: Normal sonographic appearance where visualized. Portions obscured: Head and tail. Liver: Echotexture: Coarse Echogenicity: Heterogeneous Surface contour: Nodular Lesions: None. Biliary: No intrahepatic biliary duct dilation. CBD: 0.2 cm at the hilum. Gallbladder: Cholecystectomy. Right Kidney: No hydronephrosis. Spleen: Craniocaudal length 12.2 cm, normal. There are no splenic lesions. Other: Small volume ascites. HEPATIC VASCULATURE: PORTAL SYSTEM: -Splenic Vein: Patent with antegrade flow (towards the liver). -Main PV: Patent with phasic antegrade flow (towards liver and TIPS). 53 cm/sec -Right anterior PV: Poorly seen, appears patent with retrograde flow where visualized (towards TIPS). -Right posterior PV: Not identified separately from the TIPS. -Left PV: Poorly seen. Splenorenal shunt: Not seen. Recanalized paraumbilical vein: Not seen. TIPS extends from the right hepatic vein to the right portal vein. The TIPS appears grossly patent, however assessment is technically limited by artifact. Stent near portal vein: 126 - 204 cm/s Mid stent: 156 - 188 cm/s Stent near hepatic vein: 107 - 130 cm/s HEPATIC ARTERIES: - Main GIRON: Normal waveform PSV: 177 cm/sec. RI: 0.78 - Right anterior GIRON: Normal waveform - Right posterior GIRON: Normal waveform - Left GIRON: Normal waveform HEPATIC VEINS: -Left: Patent with triphasic waveform. -Middle: Patent with triphasic waveform. -Right: Not identified separately from the TIPS. IVC: Patent with normal, phasic waveform where visualized. IMPRESSION: TIPS appears grossly patent, however technically limited by artifact. Technically limited Doppler assessment of the intrahepatic portal veins with main and anterior right portal veins grossly patent with appropriately directed flow post TIPS as detailed. Short interval sonographic surveillance recommended. Cirrhotic liver morphology. No focal hepatic lesions. Small volume ascites. Tire Finisher: EDDIE Transcribe Date/Time: Jun 06 2023 2:35P Dictated by : VICKY ARCEO DO This examination was interpreted and the report reviewed and electronically signed by: VICKY ARCEO DO on Jun 06 2023 2:50PM EST [id number] [facility] US DOPPLER COMPLETEon 2023 US DOPPLER COMPLETE * * *Final Report* * * DATE OF EXAM: Jun 03 2023 3:06PM FVU 1033 - US DOPPLER COMPLETE / PROCEDURE REASON: S/P TIPS (transjugular intrahepatic portosystemic shunt) * * * * Physician Interpretation * * * * EXAMINATION: LIVER VASCULAR ULTRASOUND WITH DOPPLER IMAGING CLINICAL HISTORY: Cirrhosis post TIPS 05/28/2023. TECHNIQUE: Sonography of the liver with color and spectral Doppler imaging of the hepatic vasculature was performed. Images were obtained and stored in a permanent archive. MQ: USLV_1 COMPARISON: Ultrasound 05/25/2023, 11/15/2019, CT 05/24/2023. RESULT: Sonographic Findings: Pancreas: Normal sonographic appearance where visualized. Portions obscured: Head and tail. Liver: Echotexture: Coarse Echogenicity: Heterogeneous Surface contour: Nodular Lesions: None. Biliary: No intrahepatic biliary duct dilation. CBD: 0.2 cm at the hilum. Gallbladder: Cholecystectomy. Right Kidney: No hydronephrosis. Spleen: Craniocaudal length 12.2 cm, normal. There are no splenic lesions. Other: Small volume ascites. HEPATIC VASCULATURE: PORTAL SYSTEM: -Splenic Vein: Patent with antegrade flow (towards the liver). -Main PV: Patent with phasic antegrade flow (towards liver and TIPS). 53 cm/sec -Right anterior PV: Poorly seen, appears patent with retrograde flow where visualized (towards TIPS). -Right posterior PV: Not identified separately from the TIPS. -Left PV: Poorly seen. Splenorenal shunt: Not seen. Recanalized paraumbilical vein: Not seen. TIPS extends from the right hepatic vein to the right portal vein. The TIPS appears grossly patent, however assessment is technically limited by artifact. Stent near portal vein: 126 - 204 cm/s Mid stent: 156 - 188 cm/s Stent near hepatic vein: 107 - 130 cm/s HEPATIC ARTERIES: - Main GIRON: Normal waveform PSV: 177 cm/sec. RI: 0.78 - Right anterior GIRON: Normal waveform - Right posterior GIRON: Normal waveform - Left GIRON: Normal waveform HEPATIC VEINS: -Left: Patent with triphasic waveform. -Middle: Patent with triphasic waveform. -Right: Not identified separately from the TIPS. IVC: Patent with normal, phasic waveform where visualized. IMPRESSION: TIPS appears grossly patent, however technically limited by artifact. Technically limited Doppler assessment of the intrahepatic portal veins with main and anterior right portal veins grossly patent with appropriately directed flow post TIPS as detailed. Short interval sonographic surveillance recommended. Cirrhotic liver morphology. No focal hepatic lesions. Small volume ascites. Tire Finisher: EDDIE Transcribe Date/Time: Jun 06 2023 2:35P Dictated by : VICKY ARCEO DO This examination was interpreted and the report reviewed and electronically signed by: VICKY ARCEO DO on Jun 06 2023 2:50PM EST [id number] [facility] [place] 06-02-19 [facility] Case Information Case Priority: None Programs: -- Referral Source: Rf Design Engineer Referral Reason: Care coordination Case Type: Transition Care Management Risk Score: -- Case Status: Enrolled (June 02, 2023) Date Assigned: June 02, 2023 Assigned By: Hayden Sahu Date Enrolled: June 02, 2023 Assigned Primary Personnel: Hayden Sahu Assigned Secondary Personnel: -- Case Physician: Chapis Dumont Problems Ongoing Hypertensive disorder Right hand weakness Right wrist pain Historical Hyperlipidemia Type 1 diabetes mellitus Procedure/Surgical History Colonoscopy, EGD (esophagogastroduodenoscop ic) electrohydraulic lithotripsy of bezoar in stomach. Home Medications Apidra 100 units/mL injectable solution atorvastatin 10 mg Tab, 10 mg= 1 tab(s), Oral, Daily cholecalciferol 5000 intl units (125 mcg) oral tab, See Instructions Colace 100 mg Cap, 100 mg= 1 cap(s), Oral, TID Coreg 25 mg Tab, 25 mg= 1 tab(s), Oral, BID Fiasp FlexTouch 100 units/mL injectable solution, See Instructions gabapentin 300 mg Cap, 300 mg= 1 cap(s), Oral, TID gabapentin 300 mg Cap, 300 mg= 1 cap(s), Oral, TID, 5 refills Lasix 40 mg Tab magnesium oxide, See Instructions meloxicam 7.5 mg Tab, 7.5 mg= 1 tab(s), Oral, Daily midodrine 2.5 mg oral tablet, 2.5 mg= 1 tab(s), Oral, TID Ocaliva 5 mg oral tablet, 5 mg= 1 tab(s), Oral, Daily Pantoprazole [address] Tab, 40 mg= 1 tab(s), Oral, Daily Pantoprazole [address] Tab, 40 mg= 1 tab(s), Oral, Daily, 3 refills potassium phosphate-sodium phosphate 250 mg-45 mg-298 mg oral tablet, 1 tab(s), Oral, TID spironolactone 100 mg Tab, 100 mg= 1 tab(s), Oral, Daily Tresiba FlexTouch 100 units/mL subcutaneous solution, See Instructions ursodiol 300 mg Cap, 300 mg= 1 cap(s), Oral, QID Allergies No Known Medication Allergies Social History Tobacco 10 or more cigarettes (1/2 pack or more)/day in last 30 days Tobacco Use:. Never Smokeless Tobacco Use:. Cigarettes, 12/21/2022 Family History Family history is negative Screenings and Assessments 06/02/23 10:41:00 Result Name Value Comment Phone Call Monitoring Consent Agreed to continue call Phone Verification Patient Information Full name, street address and date of verified CM Program Enrollment Provides verbal consent for enrollment Goals and Interventions Care Plan Progress Note Admit Date: 05/24/23- [facility] Date of Discharge: 05/31/23- [facility], NO D/C SUMMARY AVAILABLE Follow-up appointment scheduled? no, patient has [facility] f/u this week, patient not sure on date, will arrange PCP f/u there after. Patient did not want to double schedule Did you understand your discharge instructions? yes Are you able to follow them? yes Did you receive new medications? yes, unable to review at time of call Have you filled the Rx's? yes Are you taking them as prescribed? yes Are you having difficulty eating or swallowing your pills? no Are you having any stomach upset, diarrhea or constipation? no How are you sleeping? fine Are you having any pain? no Do you have everything you need at home to care for yourself? yes Do you have Home Health? yes, [facility] Called patient for initial Transitional Care Management Program call. No d/c summary available. Patient states she understands her d/c instructions and denies any questions. Reviewed dx of esophageal varices and rectal varices. Patient underwent a TIPS procedure on 05/27. Patient unable to reconcile medications at time of call, will complete at OV. Patient states she is doing 'okay.' Patient has not yet picked up her walker, states she has the rx. CN discussed area suppliers. Patient states home health is coming to home today. Patient states she has a follow up with sx and US sometime this week, she can't recall at the time. Patient states her bowels are normal and denies any urinary system issues. Patient states she is eating good. Denies any unusual bleeding. Patient does not currently have PCP f/u scheduled. States she would like to arrange, however she does not remember when her [facility] f/u is and will call back after she finds the information to arrange. TCM program and gave contact info. Patient denies any further questions or concerns. Communication Events Date: June 02, 2023 Method: Phone call Type: Outbound Duration (min): 8 Outcome: Case discussion Contact Type: patient care coordinator Contact Name: Hayden Sahu Notes: TCM#1- see tcm note. Created By: Hayden Sahu [facility] ED Note-Physicianon 05-25-19 24 ED Note-Physician [id number]#1.00TIFF [facility] Operative Reporton Operative Report [id number]#1.00TIFF [facility] Outside Hospital Correspo ndenceon 05-25-2023 Outside [facility] Correspondence [id number]#1.00TIFF [facility] Absolute reticulocyte countO rdered By: Harsha Wren on 05-24-2023 Reticulocytes (Bld) [#/Vol] 0.036 10*6/uL 0.024-0.08 4 [facility] Activated partial thrombopla stin time (aPTT) in platelet poor plasma by coagulation aOrdered By: Danielle Glass on 05-24-2023 aPTT Coag (PPP) [Time] 46.8 s 25.1-36.5 [facility] Comment on above: A hematocrit value g reater than 55% may lead to inaccurate results in coagulation testing. Patients having hematocrit values >55% require a special collection tube for coagulation studies. Please contact the laboratory at [phone] for redraw instructions. Alanine aminotransferase [En zymatic activity/volume] in Serum or PlasmaOrdered By: Harsha Wren on 05-24-2023 ALT [Catalytic activity/Vol] 13 U/L 7-52 [facility] Albumin [Mass/volume] in Bod y fluidOrdered By: Arnoldo Arguello on 05-24-2023 Albumin (Body fld) [Mass/Vol] < 1.5 g/dL [facility] Comment on above: No reference range e stablished Albumin [Mass/volume] in Ser um or Plasma by Bromocresol green (BCG) dye binding methoOrdered By: Harsha Wren on 05-24-2023 Albumin BCG dye [Mass/Vol] 2.3 g/dL 3.5-5.7 [facility] Alkaline phosphatase [Enzyma tic activity/volume] in Serum or PlasmaOrdered By: Harsha Wren on 05-24-2023 ALP [Catalytic activity/Vol] 129 U/L 34-104 [facility] Anisocytosis LM Ql (Bld)Orde red By: Harsha Wren on 05-24-2023 Anisocytosis Ql (Bld) S[facility] Aspartate aminotransferase [ Enzymatic activity/volume] in Serum or PlasmaOrdered By: Harsha Wren on 05-24-2023 AST [Catalytic activity/Vol] 33 U/L 13-39 [facility] Basophils Auto (Bld) [#/Vol] Ordered By: Harsha Wren on 05-24-2023 Basophils (Bld) [#/Vol] N/A [facility] Basophils/100 WBC Auto (Bld) Ordered By: Harsha Wren on 05-24-2023 Basophils/100 WBC (Bld) N/A [facility] Bilirubin.direct [Mass/volum e] in Serum or PlasmaOrdered By: Harsha Wren on 05-24-2023 Bilirubin.direct [Mass/Vol] 0.30 mg/dL 0.03-0.18 [facility] Bilirubin.total [Mass/volume ] in Serum or PlasmaOrdered By: Harsha Wren on 05-24-2023 Bilirubin [Mass/Vol] 1.0 mg/dL 0.3-1.0 [facility] Body fluid differential cell countOrdered By: Arnoldo Arguello on 05-24-2023 Differential panel (Body fld) 78 % [facility] Comment on above: The reference interv al and other method performance specifications have not been established for this body fluid. The test result must be integrated into the clinical context for interpretation. Calcium [Mass/volume] in Ser um or PlasmaOrdered By: Danielle Glass on 05-24-2023 Calcium [Mass/Vol] 7.5 mg/dL 8.6-10.3 [facility] Calcium [Mass/volume] in Ser um or PlasmaOrdered By: Harsha Wren on 05-24-2023 Calcium [Mass/Vol] 7.4 mg/dL 8.6-10.3 [facility] Carbon dioxide, total [Moles /volume] in Serum or PlasmaOrdered By: Danielle Glass on 05-24-2023 CO2 [Moles/Vol] 25.2 mmol/L 21.0-31.0 [facility] Carbon dioxide, total [Moles /volume] in Serum or PlasmaOrdered By: Harsha Wren on 05-24-2023 CO2 [Moles/Vol] 23.0 mmol/L 21.0-31.0 [facility] [facility] Cells Counted Total [#] in B betty fluidOrdered By: Arnoldo Arguello on 05-24-2023 Cells Counted Total (Body fld) [#] 32 mm^3 [facility] Comment on above: The reference interv al and other method performance specifications have not been established for this body fluid. The test result must be integrated into the clinical context for interpretation. Chloride [Moles/volume] in S michael or PlasmaOrdered By: Danielle Glass on 05-24-2023 Chloride [Moles/Vol] 105 mmol/L 98-107 [facility] Chloride [Moles/volume] in S michael or PlasmaOrdered By: Harsha Wren on 05-24-2023 Chloride [Moles/Vol] 103 mmol/L 98-107 [facility] Color of Spun Body fluidOrde red By: Arnoldo Arguello on 05-24-2023 Color (Spun body fld) Straw [facility] Comment on above: The reference interv al and other method performance specifications have not been established for this body fluid. The test result must be integrated into the clinical context for interpretation. Creatinine [Mass/volume] in Serum or PlasmaOrdered By: Danielle Glass on 05-24-2023 Creatinine [Mass/Vol] 0.70 mg/dL 0.60-1.20 [facility] Creatinine [Mass/volume] in Serum or PlasmaOrdered By: Harsha Wren on 05-24-2023 Creatinine [Mass/Vol] 0.75 mg/dL 0.60-1.20 [facility] Determination of appearance of body fluidOrdered By: Arnoldo Arguello on 05-24-2023 Appearance (Body fld) Clear [facility] Comment on above: The reference interv al and other method performance specifications have not been established for this body fluid. The test result must be integrated into the clinical context for interpretation. Eosinophils Auto (Bld) [#/Vo l]Ordered By: Harsha Wren on 05-24-2023 Eosinophils (Bld) [#/Vol] N/A [facility] Eosinophils/100 WBC Auto (Bl d)Ordered By: Harsha Wren on 05-24-2023 Eosinophils/100 WBC (Bld) N/A [facility] Erythrocyte distribution wid th Auto (RBC) [Ratio]Ordered By: Danielle Yvonnedarvin on 05-24-2023 Erythrocyte distribution width (RBC) [Ratio] 22.3 % 11.9-15.3 [facility] Erythrocyte distribution wid th Auto (RBC) [Ratio]Ordered By: Harsha Wren on 05-24-2023 Erythrocyte distribution width (RBC) [Ratio] 20.9 % 11.9-15.3 [facility] Evaluation of color of body fluidOrdered By: Arnoldo Arguello on 05-24-2023 Color (Body fld) Straw [facility] Comment on above: The reference interv al and other method performance specifications have not been established for this body fluid. The test result must be integrated into the clinical context for interpretation. Ferritin [Mass/volume] in Se rum or PlasmaOrdered By: Harsha Wren on 05-24-2023 Ferritin [Mass/Vol] 12.7 ng/mL 11.0-306.8 [facility] Globulin Calc (S) [Mass/Vol] Ordered By: Harsha Wren on 05-24-2023 Globulin (S) [Mass/Vol] 3.7 g/dL [facility] Glucose Glucometer (BldC) [M ass/Vol]Ordered By: Arnoldo Arguello on 05-24-2023 Glucose [Mass/Vol] 89 mg/dL [facility] Comment on above: Random Glucose Refer ence Range is dependent on time and content of last meal. Glucose of more than 200 mg/dL in a nonstressed, ambulatory subject supports the diagnosis of Diabetes Mellitus. Glucose [Mass/volume] in Ser um or PlasmaOrdered By: Danielle Glass on 05-24-2023 Glucose [Mass/Vol] 37 mg/dL 70-100 [facility] Comment on above: Delta: 195 on Critical Result Called to and read back by: RAMÓN FIGUEROA at: 05/24/2023 10:02:08 by:LFMADA recommended reference rangeRandom Glucose Reference Range is dependent on time and content of last meal. Glucose of more than 200 mg/dL in a nonstressed, ambulatory subject supports the diagnosis of Diabetes Mellitus. Glucose [Mass/volume] in Ser um or PlasmaOrdered By: Harsha Wren on 05-24-2023 Glucose [Mass/Vol] 195 mg/dL 70-100 [facility] Comment on above: ADA recommended refe rence rangeRandom Glucose Reference Range is dependent on time and content of last meal. Glucose of more than 200 mg/dL in a nonstressed, ambulatory subject supports the diagnosis of Diabetes Mellitus. Gram stain for investigation of transfusion reactionOrdered By: Arnoldo Arguello on 05-24-2023 Microscopic observation Gram stain Nom (Unsp spec) No Anaerobes Isolated 3 Days [facility] Hematocrit Auto (Bld) [Volum e fraction]Ordered By: Danielle Glass on 05-24-2023 Hematocrit (Bld) [Volume fraction] 24.6 % 34.0-46.4 [facility] Hematocrit Auto (Bld) [Volum e fraction]Ordered By: Harsha Wren on 05-24-2023 Hematocrit (Bld) [Volume fraction] 21.5 % 34.0-46.4 [facility] Hemoglobin [Mass/volume] in BloodOrdered By: Danielle Glass on 05-24-2023 Hemoglobin (Bld) [Mass/Vol] 7.9 g/dL 11.8-15.4 [facility] Hemoglobin [Mass/volume] in BloodOrdered By: Harsha Wren on 05-24-2023 Hemoglobin (Bld) [Mass/Vol] 6.7 g/dL 11.8-15.4 [facility] Hypochromia LM Ql (Bld)Order ed By: Harsha Wren on 05-24-2023 Hypochromia Ql (Bld) Moderate [facility] INR in Platelet poor plasma by Coagulation assayOrdered By: Danielle lGass on 05-24-2023 INR Coag (PPP) [Relative time] 1.3 {INR} [facility] Comment on above: INR Therapeutic Rang e A) Pre- and Peroperative OAT started two weeks before surgery. NOT HIP SURGERY: 1.5 - 2.5 HIP SURGERY: 2 - 3B) Primary and secondary prevention of venous THROMBOSIS: 2 - 3C) Active venous thrombosis, pulmonary embolismand prevention of recurrent venous thrombosis: 2 - 3D) Prevention of arterial thromboembolismincluding patients with mechanical heart valves: 3 - 4.5 Iron [Mass/volume] in Serum or PlasmaOrdered By: Harsha Wren on 05-24-2023 Iron [Mass/Vol] 15 ug/dL 50-212 [facility] Iron binding capacity [Mass/ volume] in Serum or PlasmaOrdered By: Harsha Wren on 05-24-2023 Iron binding capacity [Mass/Vol] 381 ug/dL 255-450 [facility] Lactate dehydrogenase [Enzym atic activity/volume] in Body fluid by Lactate to pyruvatOrdered By: Arnoldo Arguello on 05-24-2023 LDH Lactate to pyruvate reaction (Body fld) [Catalytic activity/Vol] 41 [IU]/mL [facility] Comment on above: No reference range e stablished Leukocytes [#/volume] correc lyly for nucleated erythrocytes in Blood by Automated counOrdered By: Danielle Glass on 05-24-2023 WBC corrected for nucl RBC Auto (Bld) [#/Vol] 4.8 10*3/uL 3.8-11.6 [facility] Leukocytes [#/volume] correc lyly for nucleated erythrocytes in Blood by Automated counOrdered By: Harsha Wren on 05-24-2023 WBC corrected for nucl RBC Auto (Bld) [#/Vol] 5.4 10*3/uL 3.8-11.6 [facility] Lipase [Enzymatic activity/v olume] in Serum or PlasmaOrdered By: Harsha Wren on 05-24-2023 Lipase [Catalytic activity/Vol] 32.0 U/L 11.0-82.0 [facility] Lymphocytes Auto (Bld) [#/Vo l]Ordered By: Harsha Wren on 05-24-2023 Lymphocytes (Bld) [#/Vol] N/A [facility] Lymphocytes/100 WBC Auto (Bl d)Ordered By: Hasrha Wren on 05-24-2023 Lymphocytes/100 WBC (Bld) N/A [facility] MCH Auto (RBC) [Entitic mass ]Ordered By: Danielle Glass on 05-24-2023 MCH (RBC) [Entitic mass] 22.8 pg 24.7-34.3 [facility] MCH Auto (RBC) [Entitic mass ]Ordered By: Harsha Wren on 05-24-2023 MCH (RBC) [Entitic mass] 21.4 pg 24.7-34.3 [facility] MCHC Auto (RBC) [Mass/Vol]Or dered By: Danielle Glass on 05-24-2023 MCHC (RBC) [Mass/Vol] 32.3 g/dL 32.0-35.0 [facility] MCHC Auto (RBC) [Mass/Vol]Or dered By: Harsha Wren on 05-24-2023 MCHC (RBC) [Mass/Vol] 31.3 g/dL 32.0-35.0 [facility] MCV Auto (RBC) [Entitic vol] Ordered By: Danielle Glass on 05-24-2023 MCV (RBC) [Entitic vol] 70.5 fL 80-100 [facility] MCV Auto (RBC) [Entitic vol] Ordered By: Harsha Wren on 05-24-2023 MCV (RBC) [Entitic vol] 68.6 fL 80-100 [facility] Manual body fluid eosinophil s/100 leukocytesOrdered By: Arnoldo Arguello on 05-24-2023 Eosinophils/100 WBC Manual cnt (Body fld) 0 /100{WBC} 0-3 [facility] Manual body fluid erythrocyt es count (number/volume)Ordered By: Arnoldo Arguello on 05-24-2023 RBC Manual cnt (Body fld) [#/Vol] 115 /uL [facility] Comment on above: The reference interv al and other method performance specifications have not been established for this body fluid. The test result must be integrated into the clinical context for interpretation. Manual body fluid lymphocyte s/100 leukocytesOrdered By: Arnoldo Arguello on 05-24-2023 Lymphocytes/100 WBC Manual cnt (Body fld) 22 % [facility] Comment on above: The reference interv al and other method performance specifications have not been established for this body fluid. The test result must be integrated into the clinical context for interpretation. Microcytes LM Ql (Bld)Ordere d By: Harsha Wren on 05-24-2023 Microcytes Ql (Bld) Slight [facility] Monocyte distribution width [Entitic volume] in Blood by AutomatedOrdered By: Harsha Wren on 05-24-2023 Monocyte distribution width Auto (Bld) [Entitic vol] 17.10 % 0.00-20.00 [facility] Monocytes Auto (Bld) [#/Vol] Ordered By: Harsha Wren on 05-24-2023 Monocytes (Bld) [#/Vol] N/A [facility] Monocytes/100 WBC Auto (Bld) Ordered By: Harsha Wren on 05-24-2023 Monocytes/100 WBC (Bld) N/A [facility] Neutrophils Auto (Bld) [#/Vo l]Ordered By: Harsha Wren on 05-24-2023 Neutrophils (Bld) [#/Vol] N/A [facility] Neutrophils/100 WBC Auto (Bl d)Ordered By: Harsha Wren on 05-24-2023 Neutrophils/100 WBC (Bld) N/A [facility] Neutrophils/100 WBC Manual c nt (Body fld)Ordered By: Arnoldo Arguello on 05-24-2023 Neutrophils/100 WBC (Body fld) 0 % [facility] Comment on above: The reference interv al and other method performance specifications have not been established for this body fluid. The test result must be integrated into the clinical context for interpretation. No Panel InformationOrdered By: Arnoldo Arguello on 05-24-2023 Bedside Glucose Comment See comment [facility] Comment on above: Glu2: Result Not Con firmed No Panel InformationOrdered By: Danielle Glass on 05-24-2023 Estimated GFR (CKD-EPI) > 60.0 mL/Min [facility] Creatinine Clearance (Chem 75.22 [facility] No Panel InformationOrdered By: Harsha Wren on 05-24-2023 Estimated GFR (CKD-EPI) > 60.0 mL/Min [facility] Creatinine Clearance (Chem 70.32 [facility] Nucleated erythrocytes [Pres ence] in Blood by Automated countOrdered By: Harsha Wren on 05-24-2023 Nucleated RBC Auto Ql (Bld) N/A [facility] Platelet adequacy [Presence] in Blood by Light microscopyOrdered By: Harsha Wren on 05-24-2023 Platelets LM Ql (Bld) Decreased Normal [facility] Platelet mean volume Auto (B ld) [Entitic vol]Ordered By: Danielle Glass on 05-24-2023 Platelet mean volume (Bld) [Entitic vol] 9.1 fL 6.3-10.7 [facility] Platelet mean volume Auto (B ld) [Entitic vol]Ordered By: Harsha Wren on 05-24-2023 Platelet mean volume (Bld) [Entitic vol] 9.2 fL 6.3-10.7 [facility] Platelet morphology finding [Identifier] in BloodOrdered By: Harsha Wren on 05-24-2023 Platelet morphology finding Nom (Bld) N/A [facility] Platelets Auto (Bld) [#/Vol] Ordered By: Danielle Glass on 05-24-2023 Platelets (Bld) [#/Vol] 96 10*3/uL 150-450 [facility] Platelets Auto (Bld) [#/Vol] Ordered By: Harsha Wren on 05-24-2023 Platelets (Bld) [#/Vol] 88 10*3/uL 150-450 [facility] Platelets Large [Presence] i n Blood by Light microscopyOrdered By: Harsha Wren on 05-24-2023 Platelets Large LM Ql (Bld) Slight [facility] Polychromasia [Presence] in Blood by Light microscopyOrdered By: Harsha Wren on 05-24-2023 Polychromasia LM Ql (Bld) Moderate [facility] Potassium [Moles/volume] in Serum or PlasmaOrdered By: Danielle Glass on 05-24-2023 Potassium [Moles/Vol] 3.8 mmol/L 3.5-5.1 [facility] Potassium [Moles/volume] in Serum or PlasmaOrdered By: Harsha Wren on 05-24-2023 Potassium [Moles/Vol] 3.9 mmol/L 3.5-5.1 [facility] Protein [Mass/volume] in Bod y fluidOrdered By: Arnoldo Arguello on 05-24-2023 Protein (Body fld) [Mass/Vol] g/dL [facility] Protein [Mass/volume] in Ser um or PlasmaOrdered By: Harsha Wren on 05-24-2023 Protein [Mass/Vol] 6.0 g/dL 6.4-8.9 [facility] Prothrombin time (PT)Ordered By: Danielle Glass on 05-24-2023 PT Coag (PPP) [Time] 15.4 s 9.0-12.9 [facility] Comment on above: A hematocrit value g reater than 55% may lead to inaccurate results in coagulation testing. Patients having hematocrit values >55% require a special collection tube for coagulation studies. Please contact the laboratory at [phone] for redraw instructions. RBC Auto (Bld) [#/Vol]Ordere d By: Danielle Glass on 05-24-2023 RBC (Bld) [#/Vol] 3.48 10*6/uL 3.60-5.00 [facility] RBC Auto (Bld) [#/Vol]Ordere d By: Harsha Wren on 05-24-2023 RBC (Bld) [#/Vol] 3.13 10*6/uL 3.60-5.00 [facility] RBC morphologyOrdered By: Felicity Wren on 05-24-2023 RBC morphology finding Nom (Bld) N/A [facility] Reticulocytes/100 RBC Auto ( Bld)Ordered By: Harsha Wren on 05-24-2023 Reticulocytes/100 RBC (Bld) 1.2 % 0.5-1.5 [facility] Serum or plasma albumin/glob ulin mass ratioOrdered By: Harsha Wren on 05-24-2023 Albumin/Globulin [Mass ratio] 0.6 {ratio} [facility] Serum or plasma anion gap de terminationOrdered By: Danielle Glass on 05-24-2023 Anion gap [Moles/Vol] 6.6 mmol/L 6.0-15.0 [facility] Serum or plasma anion gap de terminationOrdered By: Harsha Wren on 05-24-2023 Anion gap [Moles/Vol] 8.9 mmol/L 6.0-15.0 [facility] Serum or plasma non-glucuron idated bilirubin measurement (mass/volume)Ordered By: Harsha Wren on 05-24-2023 Bilirubin.indirect [Mass/Vol] 0.7 mg/dL [facility] Sodium [Moles/volume] in Ser um or PlasmaOrdered By: Danielle Glass on 05-24-2023 Sodium [Moles/Vol] 133 mmol/L 136-145 [facility] Sodium [Moles/volume] in Ser um or PlasmaOrdered By: Harsha Wren on 05-24-2023 Sodium [Moles/Vol] 131 mmol/L 136-145 [facility] Transferrin [Mass/volume] in Serum or PlasmaOrdered By: Harsha Wren on 05-24-2023 Transferrin [Mass/Vol] 272 mg/dL 203-362 [facility] Urea nitrogen [Mass/volume] in Serum or PlasmaOrdered By: Danielle Glass on 05-24-2023 Urea nitrogen [Mass/Vol] 12 mg/dL 09-22 [facility] Urea nitrogen [Mass/volume] in Serum or PlasmaOrdered By: Harsha Wren on 05-24-2023 Urea nitrogen [Mass/Vol] 13 mg/dL 09-22 [facility] WBC Auto (Bld) [#/Vol]Ordere d By: Harsha Wren on 05-24-2023 WBC (Bld) [#/Vol] 5.4 10*3/uL 3.8-11.6 [facility] Consultation Noteon 04-21-19 Consultation Note [id number] Normal [facility] Glucose mean value [Mass/vol ume] in Blood Estimated from glycated hemoglobinOrdered By: Ajay Elam on 04-13-2023 Average glucose Estimated from glycated hemoglobin (Bld) [Mass/Vol] 252 mg/dL [facility] Hemoglobin A1c percentageOrd ered By: Ajay Elam on 04-13-2023 HbA1c (Bld) [Mass fraction] 10.4 % 4.3-5.6 [facility] Comment on above: Increased risk for d iabetes: 5.7 - 6.4diabetes: >6.4glycemic control for adults with diabetes: <7.0 Alanine aminotransferase [En zymatic activity/volume] in Serum or PlasmaOrdered By: Mickey Lovett on 02-02-2023 ALT [Catalytic activity/Vol] 14 U/L [facility] Albumin [Mass/volume] in Ser um or Plasma by Bromocresol green (BCG) dye binding methoOrdered By: Mickey Lovett on 02-02-2023 Albumin BCG dye [Mass/Vol] 2.5 g/dL 3.5-5.7 [facility] Alkaline phosphatase [Enzyma tic activity/volume] in Serum or PlasmaOrdered By: Mickey Lovett on 02-02-2023 ALP [Catalytic activity/Vol] 193 U/L 34-104 [facility] Aspartate aminotransferase [ Enzymatic activity/volume] in Serum or PlasmaOrdered By: Mickey Lovett on 02-02-2023 AST [Catalytic activity/Vol] 26 U/L 13-39 [facility] Bilirubin.total [Mass/volume ] in Serum or PlasmaOrdered By: Mcikey Lovett on 02-02-2023 Bilirubin [Mass/Vol] 1.2 mg/dL 0.3-1.0 [facility] Calcium [Mass/volume] in Ser um or PlasmaOrdered By: Mickey Lovett on 02-02-2023 Calcium [Mass/Vol] 7.8 mg/dL 8.6-10.3 [facility] Carbon dioxide, total [Moles /volume] in Serum or PlasmaOrdered By: Mickey Lovett on 02-02-2023 CO2 [Moles/Vol] 27.0 mmol/L 21.0-31.0 [facility] Chloride [Moles/volume] in S michael or PlasmaOrdered By: Mickey Lovett on 02-02-2023 Chloride [Moles/Vol] 102 mmol/L 98-107 [facility] Creatinine [Mass/volume] in Serum or PlasmaOrdered By: Mickey Lovett on 02-02-2023 Creatinine [Mass/Vol] 0.60 mg/dL 0.60-1.20 [facility] Globulin Calc (S) [Mass/Vol] Ordered By: Mickey Lovett on 02-02-2023 Globulin (S) [Mass/Vol] 3.7 g/dL [facility] Glucose Glucometer (BldC) [M ass/Vol]Ordered By: Nimesh Chin on 02-02-2023 Glucose [Mass/Vol] 131 mg/dL [facility] Comment on above: Random Glucose Refer ence Range is dependent on time and content of last meal. Glucose of more than 200 mg/dL in a nonstressed, ambulatory subject supports the diagnosis of Diabetes Mellitus. Glucose [Mass/volume] in Ser um or PlasmaOrdered By: Mickey Lovett on 02-02-2023 Glucose [Mass/Vol] 124 mg/dL 70-100 [facility] Comment on above: ADA recommended refe rence rangeRandom Glucose Reference Range is dependent on time and content of last meal. Glucose of more than 200 mg/dL in a nonstressed, ambulatory subject supports the diagnosis of Diabetes Mellitus. Magnesium [Mass/volume] in S michael or PlasmaOrdered By: Mickey Lovett on 02-02-2023 Magnesium [Mass/Vol] 1.7 mg/dL 1.9-2.7 [facility] No Panel InformationOrdered By: Nimesh Chni on 02-02-2023 Bedside Glucose Comment Glu2: cleaned meter [facility] No Panel InformationOrdered By: Mickey Lovett on 02-02-2023 Estimated GFR (CKD-EPI) > 60.0 mL/Min [facility] Creatinine Clearance (Chem 90.73 [facility] Phosphate [Mass/volume] in S michael or PlasmaOrdered By: Mickey Lovett on 02-02-2023 Phosphate [Mass/Vol] 2.9 mg/dL 2.5-4.5 [facility] Potassium [Moles/volume] in Serum or PlasmaOrdered By: Mickey Lovett on 02-02-2023 Potassium [Moles/Vol] 3.9 mmol/L 3.5-5.1 [facility] Protein [Mass/volume] in Ser um or PlasmaOrdered By: Mickey Lovett on 02-02-2023 Protein [Mass/Vol] 6.2 g/dL 6.4-8.9 [facility] Serum or plasma albumin/glob ulin mass ratioOrdered By: Mickey Lovett on 02-02-2023 Albumin/Globulin [Mass ratio] 0.7 {ratio} [facility] Serum or plasma anion gap de terminationOrdered By: Mickey Lovett on 02-02-2023 Anion gap [Moles/Vol] 6.9 mmol/L 6.0-15.0 [facility] Sodium [Moles/volume] in Ser um or PlasmaOrdered By: Mickey Lovett on 02-02-2023 Sodium [Moles/Vol] 132 mmol/L 136-145 [facility] Urea nitrogen [Mass/volume] in Serum or PlasmaOrdered By: Mickey Lovett on 02-02-2023 Urea nitrogen [Mass/Vol] 9 mg/dL 7-25 [facility] Vitamin D+Metabolites [Mass/ volume] in Serum or PlasmaOrdered By: Mickey Lovett on 02-02-2023 Vitamin D+Metabolites [Mass/Vol] 31.1 ng/mL 30-100 [facility] Comment on above: VITAMIN D STATUS 25( [place])VITAMIN D RANGE (ng/mL) Deficient <20 Insufficient 20 to <30Sufficient 30 to 100Reference: Mynor MF,Benson FORDE, Bola GIRON, et al. Evaluation,treatment, and prevention of vitamin D deficiency; an Endocrine Society clinical practice guideline. JCEM. 2010; 96(7):1911-30. A1C HEMOGLOBINon 11-11-2022 HbA1c (Bld) [Mass fraction] 11.6 % [facility] [employer] Other Glucose - FINGER STICKon Glucose [Mass/Vol] 139 mg/dL [facility] [employer] Other HbA1c (Bld) [Mass fraction]o n 11-11-2022 A1C HEMOGLOBIN [facility] [employer] Other Glucose Glucometer (BldC) [M ass/Vol]Ordered By: Nimesh Chin on 10-27-2022 Glucose [Mass/Vol] 118 mg/dL [facility] Comment on above: Random Glucose Refer ence Range is dependent on time and content of last meal. Glucose of more than 200 mg/dL in a nonstressed, ambulatory subject supports the diagnosis of Diabetes Mellitus. No Panel InformationOrdered By: Nimesh Chin on 10-27-2022 Bedside Glucose Comment Glu2: cleaned meter [facility] Activated partial thrombopla stin time (aPTT) in platelet poor plasma by coagulation aOrdered By: Nimesh Chin on 10-08-2022 aPTT Coag (PPP) [Time] 45.7 s 25.1-36.5 [facility] Alanine aminotransferase [En zymatic activity/volume] in Serum or PlasmaOrdered By: Nimesh Chin on 10-08-2022 ALT [Catalytic activity/Vol] 28 U/L 7-52 [facility] Albumin [Mass/volume] in Ser um or Plasma by Bromocresol green (BCG) dye binding methoOrdered By: Nimesh Chin on 10-08-2022 Albumin BCG dye [Mass/Vol] 2.8 g/dL 3.5-5.7 [facility] Alkaline phosphatase [Enzyma tic activity/volume] in Serum or PlasmaOrdered By: Nimesh Chin on 10-08-2022 ALP [Catalytic activity/Vol] 196 U/L 34-104 [facility] Anisocytosis LM Ql (Bld)Orde red By: Nimesh Chin on 10-08-2022 Anisocytosis Ql (Bld) Slight [facility] Aspartate aminotransferase [ Enzymatic activity/volume] in Serum or PlasmaOrdered By: Nimesh Chin on 10-08-2022 AST [Catalytic activity/Vol] 52 U/L 13-39 [facility] Basophils Auto (Bld) [#/Vol] Ordered By: Nimesh Chin on 10-08-2022 Basophils (Bld) [#/Vol] 0.1 10*3/uL 0.0-0.2 [facility] Basophils/100 WBC Auto (Bld) Ordered By: Nimesh Chin on 10-08-2022 Basophils/100 WBC (Bld) 1.1 % . [facility] Bilirubin.total [Mass/volume ] in Serum or PlasmaOrdered By: Nimesh Chin on 10-08-2022 Bilirubin [Mass/Vol] 1.1 mg/dL 0.3-1.0 [facility] Calcium [Mass/volume] in Ser um or PlasmaOrdered By: Nimesh Chin on 10-08-2022 Calcium [Mass/Vol] 8.2 mg/dL 8.6-10.3 [facility] Carbon dioxide, total [Moles /volume] in Serum or PlasmaOrdered By: Nimesh Chin on 10-08-2022 CO2 [Moles/Vol] 26.5 mmol/L 21.0-31.0 [facility] Chloride [Moles/volume] in S michael or PlasmaOrdered By: Nimesh Chin on 10-08-2022 Chloride [Moles/Vol] 101 mmol/L 98-107 [facility] Creatinine [Mass/volume] in Serum or PlasmaOrdered By: Nimesh Chin on 10-08-2022 Creatinine [Mass/Vol] 0.69 mg/dL 0.60-1.20 [facility] Eosinophils Auto (Bld) [#/Vo l]Ordered By: Nimesh Chin on 10-08-2022 Eosinophils (Bld) [#/Vol] 0.1 10*3/uL 0.0-0.45 [facility] Eosinophils/100 WBC Auto (Bl d)Ordered By: Nimesh Chin on 10-08-2022 Eosinophils/100 WBC (Bld) 1.6 % . [facility] Erythrocyte distribution wid th Auto (RBC) [Ratio]Ordered By: Nimesh Chin on 10-08-2022 Erythrocyte distribution width (RBC) [Ratio] 16.8 % 11.9-15.3 [facility] Globulin Calc (S) [Mass/Vol] Ordered By: Nimesh Chin on 10-08-2022 Globulin (S) [Mass/Vol] 3.8 g/dL [facility] Glucose [Mass/volume] in Ser um or PlasmaOrdered By: Nimesh Chin on 10-08-2022 Glucose [Mass/Vol] 158 mg/dL 70-100 [facility] Comment on above: ADA recommended refe rence rangeRandom Glucose Reference Range is dependent on time and content of last meal. Glucose of more than 200 mg/dL in a nonstressed, ambulatory subject supports the diagnosis of Diabetes Mellitus. Hematocrit Auto (Bld) [Volum e fraction]Ordered By: Nimesh Chin on 10-08-2022 Hematocrit (Bld) [Volume fraction] 40.5 % 34.0-46.4 [facility] Hemoglobin [Mass/volume] in BloodOrdered By: Nimesh Chin on 10-08-2022 Hemoglobin (Bld) [Mass/Vol] 13.4 g/dL 11.8-15.4 [facility] Leukocytes [#/volume] correc lyly for nucleated erythrocytes in Blood by Automated counOrdered By: Nimesh Chin on 10-08-2022 WBC corrected for nucl RBC Auto (Bld) [#/Vol] 4.7 10*3/uL 3.8-11.6 [facility] Lymphocytes Auto (Bld) [#/Vo l]Ordered By: Nimesh Chin on 10-08-2022 Lymphocytes (Bld) [#/Vol] 0.7 10*3/uL 1.00-4.8 [facility] Lymphocytes/100 WBC Auto (Bl d)Ordered By: Nimesh Chin on 10-08-2022 Lymphocytes/100 WBC (Bld) 14.5 % . [facility] MCH Auto (RBC) [Entitic mass ]Ordered By: Nimesh Chin on 10-08-2022 MCH (RBC) [Entitic mass] 29.9 pg 24.7-34.3 [facility] MCHC Auto (RBC) [Mass/Vol]Or dered By: Nimesh Chin on 10-08-2022 MCHC (RBC) [Mass/Vol] 33.1 g/dL 32.0-35.0 [facility] MCV Auto (RBC) [Entitic vol] Ordered By: Nimesh Chin on 10-08-2022 MCV (RBC) [Entitic vol] 90.4 fL 80-100 [facility] Monocytes Auto (Bld) [#/Vol] Ordered By: Nimesh Chin on 10-08-2022 Monocytes (Bld) [#/Vol] 0.5 10*3/uL 0.0-0.8 [facility] Monocytes/100 WBC Auto (Bld) Ordered By: Nimesh Chin on 10-08-2022 Monocytes/100 WBC (Bld) 10.9 % . [facility] Neutrophils Auto (Bld) [#/Vo l]Ordered By: Nimesh Chin on 10-08-2022 Neutrophils (Bld) [#/Vol] 3.4 10*3/uL 1.8-7.7 [facility] Neutrophils/100 WBC Auto (Bl d)Ordered By: Nimesh Chin on 10-08-2022 Neutrophils/100 WBC (Bld) 71.9 % . [facility] No Panel InformationOrdered By: Nimesh Chin on 10-08-2022 Estimated GFR (CKD-EPI) > 60.0 mL/Min [facility] Creatinine Clearance (Chem N/A [facility] Nucleated erythrocytes [Pres ence] in Blood by Automated countOrdered By: Nimesh Chin on 10-08-2022 Nucleated RBC Auto Ql (Bld) 0.2 /100{WBC} 0-0.5 [facility] Platelet adequacy [Presence] in Blood by Light microscopyOrdered By: Nimesh Chin on 10-08-2022 Platelets LM Ql (Bld) Decreased Normal [facility] Platelet mean volume Auto (B ld) [Entitic vol]Ordered By: Nimesh Chin on 10-08-2022 Platelet mean volume (Bld) [Entitic vol] 10.5 fL 6.3-10.7 [facility] Platelet morphology finding [Identifier] in BloodOrdered By: Nimesh Chin on 10-08-2022 Platelet morphology finding Nom (Bld) N/A [facility] Platelets Auto (Bld) [#/Vol] Ordered By: Nimesh Chin on 10-08-2022 Platelets (Bld) [#/Vol] 63 10*3/uL 150-450 [facility] Potassium [Moles/volume] in Serum or PlasmaOrdered By: Nimesh Chin on 10-08-2022 Potassium [Moles/Vol] 4.1 mmol/L 3.5-5.1 [facility] Protein [Mass/volume] in Ser um or PlasmaOrdered By: Nimesh Chin on 10-08-2022 Protein [Mass/Vol] 6.6 g/dL 6.4-8.9 [facility] RBC Auto (Bld) [#/Vol]Ordere d By: Nimesh Chin on 10-08-2022 RBC (Bld) [#/Vol] 4.48 10*6/uL 3.60-5.00 [facility] RBC morphologyOrdered By: Yolanda Chin on 10-08-2022 RBC morphology finding Nom (Bld) N/A [facility] Serum or plasma albumin/glob ulin mass ratioOrdered By: Nimesh Chin on 10-08-2022 Albumin/Globulin [Mass ratio] 0.7 {ratio} [facility] Serum or plasma [id number] protein tumor marker measurement (mass/volume)Ordered By: Nimesh Chin on 10-08-2022 AFP.tumor marker [Mass/Vol] ng/mL 0.0-9.2 [facility] Comment on above: [employer] El ectrochemiluminescence Immunoassay(ECLIA)Values obtained with different assay methods or kits cannotbe used interchangeably. Results cannot be interpreted asabsolute evidence of the presence or absence of malignantdisease.This test is not interpretable in females.Performed at: [facility] [id number] Director: Bret Montgomery PhD, Phone: [phone] Serum or plasma anion gap de terminationOrdered By: Nimesh Chin on 10-08-2022 Anion gap [Moles/Vol] 9.6 mmol/L 6.0-15.0 [facility] Sodium [Moles/volume] in Ser um or PlasmaOrdered By: Nimesh Chin on 10-08-2022 Sodium [Moles/Vol] 133 mmol/L 136-145 [facility] Urea nitrogen [Mass/volume] in Serum or PlasmaOrdered By: Nimesh Chin on 10-08-2022 Urea nitrogen [Mass/Vol] 13 mg/dL 7-25 [facility] WBC Auto (Bld) [#/Vol]Ordere d By: Nimesh Chin on 10-08-2022 WBC (Bld) [#/Vol] 4.7 10*3/uL 3.8-11.6 [facility] A1C HEMOGLOBINon 08-03-2022 HbA1c (Bld) [Mass fraction] 13.2 % [employer] Other Glucose - FINGER [employer]on Glucose [Mass/Vol] 202 mg/dL [employer] Other HbA1c (Bld) [Mass fraction]o n 08-03-2022 A1C HEMOGLOBIN [employer] Other Alanine aminotransferase [En zymatic activity/volume] in Serum or PlasmaOrdered By: Mickey Lovett on 07-01-2022 ALT [Catalytic activity/Vol] 35 U/L 7-52 [facility] Albumin [Mass/volume] in Ser um or Plasma by Bromocresol green (BCG) dye binding methoOrdered By: Mickey Lovett on 07-01-2022 Albumin BCG dye [Mass/Vol] 3.0 g/dL 3.5-5.7 [facility] Alkaline phosphatase [Enzyma tic activity/volume] in Serum or PlasmaOrdered By: Mickey Lovett on 07-01-2022 ALP [Catalytic activity/Vol] 231 U/L 34-104 [facility] Aspartate aminotransferase [ Enzymatic activity/volume] in Serum or PlasmaOrdered By: Mickey Lovett on 07-01-2022 AST [Catalytic activity/Vol] 53 U/L 13-39 [facility] Bilirubin.total [Mass/volume ] in Serum or PlasmaOrdered By: Mickey Lovett on 07-01-2022 Bilirubin [Mass/Vol] 1.0 mg/dL 0.3-1.0 [facility] Calcium [Mass/volume] in Ser um or PlasmaOrdered By: Mickey Lovett on 07-01-2022 Calcium [Mass/Vol] 8.1 mg/dL 8.6-10.3 [facility] Carbon dioxide, total [Moles /volume] in Serum or PlasmaOrdered By: Mickey Lovett on 07-01-2022 CO2 [Moles/Vol] 26.9 mmol/L 21.0-31.0 [facility] Chloride [Moles/volume] in S michael or PlasmaOrdered By: Mickey Lovett on 07-01-2022 Chloride [Moles/Vol] 99 mmol/L 98-107 [facility] Creatinine [Mass/volume] in Serum or PlasmaOrdered By: Mickey Lovett on 07-01-2022 Creatinine [Mass/Vol] 0.76 mg/dL 0.60-1.20 [facility] Globulin Calc (S) [Mass/Vol] Ordered By: Mickey Lovett on 07-01-2022 Globulin (S) [Mass/Vol] 4.1 g/dL [facility] Glucose Glucometer (BldC) [M ass/Vol]Ordered By: Nimesh Chin on 07-01-2022 Glucose [Mass/Vol] 126 mg/dL [facility] Comment on above: Random Glucose Refer ence Range is dependent on time and content of last meal. Glucose of more than 200 mg/dL in a nonstressed, ambulatory subject supports the diagnosis of Diabetes Mellitus. Glucose [Mass/volume] in Ser um or PlasmaOrdered By: Mickey Lovett on 07-01-2022 Glucose [Mass/Vol] 136 mg/dL 70-100 [facility] Comment on above: ADA recommended refe rence rangeRandom Glucose Reference Range is dependent on time and content of last meal. Glucose of more than 200 mg/dL in a nonstressed, ambulatory subject supports the diagnosis of Diabetes Mellitus. Magnesium [Mass/volume] in S michael or PlasmaOrdered By: Mickey Lovett on 07-01-2022 Magnesium [Mass/Vol] 1.8 mg/dL 1.9-2.7 [facility] No Panel InformationOrdered By: Nimesh Chin on 07-01-2022 Bedside Glucose Comment Glu2: cleaned meter [facility] No Panel InformationOrdered By: Mickey Lovett on 07-01-2022 Estimated GFR (CKD-EPI) > 60.0 mL/Min [facility] Creatinine Clearance (Chem 70.95 [facility] Phosphate [Mass/volume] in S michael or PlasmaOrdered By: Mickey Lovett on 07-01-2022 Phosphate [Mass/Vol] 3.4 mg/dL 3.7-7.2 [facility] Potassium [Moles/volume] in Serum or PlasmaOrdered By: Mickey Lovett on 07-01-2022 Potassium [Moles/Vol] 4.2 mmol/L 3.5-5.1 [facility] Protein [Mass/volume] in Ser um or PlasmaOrdered By: Mickey Lovett on 07-01-2022 Protein [Mass/Vol] 7.1 g/dL 6.4-8.9 [facility] Serum or plasma albumin/glob ulin mass ratioOrdered By: Mickey Lovett on 07-01-2022 Albumin/Globulin [Mass ratio] 0.7 {ratio} [facility] Serum or plasma anion gap de terminationOrdered By: Mickey Lovett on 07-01-2022 Anion gap [Moles/Vol] 10.3 mmol/L 6.0-15.0 [facility] Sodium [Moles/volume] in Ser um or PlasmaOrdered By: Mickey Lovett on 07-01-2022 Sodium [Moles/Vol] 132 mmol/L 136-145 [facility] Urea nitrogen [Mass/volume] in Serum or PlasmaOrdered By: Mickey Lovett on 07-01-2022 Urea nitrogen [Mass/Vol] 20 mg/dL 7-25 [facility] A1C HEMOGLOBINon 04-20-2022 HbA1c (Bld) [Mass fraction] 11.9 % [employer] Other Basophils Auto (Bld) [#/Vol] Ordered By: Nimesh Chin on 04-20-2022 Basophils (Bld) [#/Vol] 0.1 10*3/uL 0.0-0.2 [facility] Basophils/100 WBC Auto (Bld) Ordered By: Nimesh Chin on 04-20-2022 Basophils/100 WBC (Bld) 0.8 % . [facility] Body fluid albumin measureme nt (mass/volume)Ordered By: Nimesh Chin on 04-20-2022 Albumin (Body fld) [Mass/Vol] 2.8 g/dL 3.2-5.5 [facility] Creatinine and Glomerular fi ltration rate.predicted panel (S/P/Bld)Ordered By: Nmiesh Chin on 04-20-2022 Creatinine [Mass/Vol] 0.76 mg/dL 0.44-1.03 [facility] Eosinophils Auto (Bld) [#/Vo l]Ordered By: Nimesh Chin on 04-20-2022 Eosinophils (Bld) [#/Vol] 0.1 10*3/uL 0.0-0.45 [facility] Eosinophils/100 WBC Auto (Bl d)Ordered By: Nimesh Chin on 04-20-2022 Eosinophils/100 WBC (Bld) 1.0 % . [facility] Erythrocyte distribution wid th Auto (RBC) [Ratio]Ordered By: Nimesh Chin on 04-20-2022 Erythrocyte distribution width (RBC) [Ratio] 13.6 % 11.9-15.3 [facility] Estimated glomerular filtrat ion rate (GFR) non- AmericanOrdered By: Nimesh Chin on 04-20-2022 GFR/1.73 sq M.predicted among non-blacks MDRD (S/P/Bld) [Vol rate/Area] > 60 mL/Min [facility] Globulin Calc (S) [Mass/Vol] Ordered By: Nimesh Chin on 04-20-2022 Globulin (S) [Mass/Vol] 4.3 g/dL [facility] Glucose - FINGER [employer]on Glucose [Mass/Vol] 239 mg/dL [employer] Other HbA1c (Bld) [Mass fraction]o n 04-20-2022 A1C HEMOGLOBIN [employer] Other Hematocrit Auto (Bld) [Volum e fraction]Ordered By: Nimesh Chin on 04-20-2022 Hematocrit (Bld) [Volume fraction] 42.1 % 34.0-46.4 [facility] Hemoglobin [Mass/volume] in BloodOrdered By: Nimesh Chin on 04-20-2022 Hemoglobin (Bld) [Mass/Vol] 14.0 g/dL 11.8-15.4 [facility] - CoagulationOrde red By: Nimesh Chin on 04-20-2022 PT Coag (PPP) [Time] 13.5 s 9.0-12.9 [facility] Leukocytes [#/volume] correc lyly for nucleated erythrocytes in Blood by Automated counOrdered By: Nimesh Chin on 04-20-2022 WBC corrected for nucl RBC Auto (Bld) [#/Vol] 6.6 10*3/uL 3.8-11.6 [facility] Lymphocytes Auto (Bld) [#/Vo l]Ordered By: Nimesh Chin on 04-20-2022 Lymphocytes (Bld) [#/Vol] 0.9 10*3/uL 1.00-4.8 [facility] Lymphocytes/100 WBC Auto (Bl d)Ordered By: Nimesh Chin on 04-20-2022 Lymphocytes/100 WBC (Bld) 13.0 % . [facility] MCH Auto (RBC) [Entitic mass ]Ordered By: Nimesh Chin on 04-20-2022 MCH (RBC) [Entitic mass] 31.4 pg 24.7-34.3 [facility] MCHC Auto (RBC) [Mass/Vol]Or dered By: Nimesh Chin on 04-20-2022 MCHC (RBC) [Mass/Vol] 33.3 g/dL 32.0-35.0 [facility] MCV Auto (RBC) [Entitic vol] Ordered By: Nimesh Chin on 04-20-2022 MCV (RBC) [Entitic vol] 94.4 fL 80-100 [facility] Monocytes Auto (Bld) [#/Vol] Ordered By: iNmesh Chin on 04-20-2022 Monocytes (Bld) [#/Vol] 0.5 10*3/uL 0.0-0.8 [facility] Monocytes/100 WBC Auto (Bld) Ordered By: Nimesh hCin on 04-20-2022 Monocytes/100 WBC (Bld) 7.4 % . [facility] Neutrophils Auto (Bld) [#/Vo l]Ordered By: Nimesh Chin on 04-20-2022 Neutrophils (Bld) [#/Vol] 5.1 10*3/uL 1.8-7.7 [facility] Neutrophils/100 WBC Auto (Bl d)Ordered By: Nimesh Chin on 04-20-2022 Neutrophils/100 WBC (Bld) 77.8 % . [facility] No Panel InformationOrdered By: Nimesh Chin on 04-20-2022 Estimated GFR () > 60 mL/Min [facility] Comment on above: GFR estimated refere nce range: According to KDOQI guidelines, <60 ml/min/1.73m2 is sufficient to diagnose a patient with chronic kidney disease. Pharmacy Creatinine Clearance (Chem N/A [facility] Nucleated erythrocytes [Pres ence] in Blood by Automated countOrdered By: Nimesh Chin on 04-20-2022 Nucleated RBC Auto Ql (Bld) 0.3 /100{WBC} 0-0.5 [facility] Platelet adequacy [Presence] in Blood by Light microscopyOrdered By: Nimesh Chin on 04-20-2022 Platelets LM Ql (Bld) Decreased Normal [facility] Platelet mean volume Auto (B ld) [Entitic vol]Ordered By: Nimesh Chin on 04-20-2022 Platelet mean volume (Bld) [Entitic vol] 11.4 fL 6.3-10.7 [facility] Platelet morphology finding [Identifier] in BloodOrdered By: Nimesh Chin on 04-20-2022 Platelet morphology finding Nom (Bld) N/A [facility] Platelet poor plasma interna tional normalized ratio (INR) by coagulation assay (relatOrdered By: Nimesh Chin on 04-20-2022 INR Coag (PPP) [Relative time] 1.2 {INR} [facility] Comment on above: INR Therapeutic Rang e A) Pre- and Peroperative OAT started two weeks before surgery. NOT HIP SURGERY: 1.5 - 2.5 HIP SURGERY: 2 - 3B) Primary and secondary prevention of venous THROMBOSIS: 2 - 3C) Active venous thrombosis, pulmonary embolismand prevention of recurrent venous thrombosis: 2 - 3D) Prevention of arterial thromboembolismincluding patients with mechanical heart valves: 3 - 4.5 Platelets Auto (Bld) [#/Vol] Ordered By: Nimesh Chin on 04-20-2022 Platelets (Bld) [#/Vol] 80 10*3/uL 150-450 [facility] Protein [Mass/volume] in Ser um or PlasmaOrdered By: Nimesh Chin on 04-20-2022 Protein [Mass/Vol] 7.1 g/dL 6.1-7.9 [facility] RBC Auto (Bld) [#/Vol]Ordere d By: Nimesh Chin on 04-20-2022 RBC (Bld) [#/Vol] 4.46 10*6/uL 3.60-5.00 [facility] RBC morphologyOrdered By: Yolanda Chin on 04-20-2022 RBC morphology finding Nom (Bld) Normal Normal [facility] Serum or plasma alanine grajeda otransferase measurement without P-5'-P (enzymatic activiOrdered By: Nimesh Chin on 04-20-2022 ALT No additional P-5'-P [Catalytic activity/Vol] 26 U/L 10-60 [facility] Serum or plasma albumin/glob ulin mass ratioOrdered By: Nimesh Chin on 04-20-2022 Albumin/Globulin [Mass ratio] 0.7 {ratio} [facility] Serum or plasma alkaline jordan sphatase measurement (enzymatic activity/volume)Ordered By: Nimesh Chin on 04-20-2022 ALP [Catalytic activity/Vol] 211 U/L 32-92 [facility] Serum or plasma [id number] protein tumor marker measurement (mass/volume)Ordered By: Nimesh Chin on 04-20-2022 AFP.tumor marker [Mass/Vol] 2.0 ng/mL 0.0-9.2 [facility] Comment on above: [employer] El ectrochemiluminescence Immunoassay(ECLIA)Values obtained with different assay methods or kits cannotbe used interchangeably. Results cannot be interpreted asabsolute evidence of the presence or absence of malignantdisease.This test is not interpretable in females.Performed at: [facility] [id number] Director: Bret Montgomery PhD, Phone: [phone] Serum or plasma anion gap de terminationOrdered By: Nimesh Chin on 04-20-2022 Anion gap [Moles/Vol] 11.9 mmol/L 6.0-15.0 [facility] Serum or plasma aspartate am inotransferase measurement (enzymatic activity/volume)Ordered By: Nimesh Chin on 04-20-2022 AST [Catalytic activity/Vol] 49 U/L 10-42 [facility] Serum or plasma calcium elis urement (mass/volume)Ordered By: Nimesh Chin on 04-20-2022 Calcium [Mass/Vol] 8.7 mg/dL 8.2-10.2 [facility] Serum or plasma chloride neo surement (moles/volume)Ordered By: Nimesh Chin on 04-20-2022 Chloride [Moles/Vol] 94 mmol/L 95-114 [facility] Serum or plasma glucose elis urement (mass/volume)Ordered By: Nimesh Chin on 04-20-2022 Glucose [Mass/Vol] 217 mg/dL 70-100 [facility] Comment on above: ADA recommended refe rence rangeRandom Glucose Reference Range is dependent on time and content of last meal. Glucose of more than 200 mg/dL in a nonstressed, ambulatory subject supports the diagnosis of Diabetes Mellitus. Serum or plasma potassium me asurement (moles/volume)Ordered By: Nimesh Chin on 04-20-2022 Potassium [Moles/Vol] 4.8 mmol/L 3.5-5.1 [facility] Serum or plasma sodium measu rement (moles/volume)Ordered By: Nimesh Chin on 04-20-2022 Sodium [Moles/Vol] 128 mmol/L 136-146 [facility] Serum or plasma total biliru bin measurement (mass/volume)Ordered By: Nimesh Chin on 04-20-2022 Bilirubin [Mass/Vol] 1.4 mg/dL 0.3-1.2 [facility] Comment on above: Samples from patient s who have taken Naproxen have shown spurious elevation in Total Bilirubin levels. A metabolite of Naproxen, O-desmethylnaproxen, has been shown to interfere with the Handy-Danny method for measuring Total Bilirubin. Serum or plasma total carbon dioxide measurement (moles/volume)Ordered By: Nimesh Chin on 04-20-2022 CO2 [Moles/Vol] 26.9 mmol/L 22.0-30.0 [facility] Serum or plasma urea nitroge n measurement (mass/volume)Ordered By: Nimesh Chin on 04-20-2022 Urea nitrogen [Mass/Vol] 15 mg/dL 9-23 [facility] WBC Auto (Bld) [#/Vol]Ordere d By: Nimesh Chin on 04-20-2022 WBC (Bld) [#/Vol] 6.6 10*3/uL 3.8-11.6 [facility] Albumin [Mass/volume] in Ser um or PlasmaOrdered By: Ajay Elam on 02-25-2022 Albumin [Mass/Vol] 3.1 g/dL 3.2-5.5 [facility] Basophils Auto (Bld) [#/Vol] Ordered By: Laurent Clark on 02-25-2022 Basophils (Bld) [#/Vol] 0.0 10*3/uL 0.0-0.2 [facility] Basophils/100 WBC Auto (Bld) Ordered By: Laurent Clark on 02-25-2022 Basophils/100 WBC (Bld) 0.7 % . [facility] Cholesterol [Mass/volume] in Serum or PlasmaOrdered By: Ajay Elam on 02-25-2022 Cholesterol [Mass/Vol] 130 mg/dL 140-200 [facility] Comment on above: Chol less than 200 m g/dl low riskChol 201-239 mg/dl borderline riskChol 240 mg/dl and greater high risk Cholesterol in LDL Calc [Mas s/Vol]Ordered By: Ajay Elam on 02-25-2022 Cholesterol in LDL [Mass/Vol] 59 mg/dL 0-100 [facility] Comment on above: LDL ATP III CLASSIFI CATIONLDL less than 100 mg/dL OptimalLDL 100-129 mg/dL Near or above optimalLDL 130-159 mg/dL Borderline highLDL 160-189 mg/dL HighLDL greater than 189 mg/dL Very high Cholesterol in VLDL Calc [Ma ss/Vol]Ordered By: Ajay Elam on 02-25-2022 Cholesterol in VLDL [Mass/Vol] 16 mg/dL [facility] Creatinine [Mass/volume] in UrineOrdered By: Ajay Elam on 02-25-2022 Creatinine (U) [Mass/Vol] 107.5 mg/dL [facility] Comment on above: No reference range e stablished Creatinine and Glomerular fi ltration rate.predicted panel (S/P/Bld)Ordered By: Ajay Elam on 02-25-2022 Creatinine [Mass/Vol] 0.76 mg/dL 0.44-1.03 [facility] Eosinophils Auto (Bld) [#/Vo l]Ordered By: Laurent Clark on 02-25-2022 Eosinophils (Bld) [#/Vol] 0.1 10*3/uL 0.0-0.45 [facility] Eosinophils/100 WBC Auto (Bl d)Ordered By: Laurent Clark on 02-25-2022 Eosinophils/100 WBC (Bld) 1.9 % . [facility] Erythrocyte distribution wid th Auto (RBC) [Ratio]Ordered By: Laurent Clark on 02-25-2022 Erythrocyte distribution width (RBC) [Ratio] 13.1 % 11.9-15.3 [facility] Estimated glomerular filtrat ion rate (GFR) non- AmericanOrdered By: Ajay Elam on 02-25-2022 GFR/1.73 sq M.predicted among non-blacks MDRD (S/P/Bld) [Vol rate/Area] > 60 mL/Min [facility] Globulin Calc (S) [Mass/Vol] Ordered By: Ajay Elam on 02-25-2022 Globulin (S) [Mass/Vol] 4.6 g/dL [facility] Hematocrit Auto (Bld) [Volum e fraction]Ordered By: Lauretn Clark on 02-25-2022 Hematocrit (Bld) [Volume fraction] 46.1 % 34.0-46.4 [facility] Hemoglobin [Mass/volume] in BloodOrdered By: Laurent Clark on 02-25-2022 Hemoglobin (Bld) [Mass/Vol] 15.7 g/dL 11.8-15.4 [facility] - Chemistry and C hemistry - challengeOrdered By: Mickey Lovett on 02-25-2022 Magnesium [Mass/Vol] 1.8 mg/dL 1.6-2.6 [facility] - CoagulationOrde red By: Laurent Clark on 02-25-2022 PT Coag (PPP) [Time] 13.0 s 9.0-12.9 [facility] Leukocytes [#/volume] correc lyly for nucleated erythrocytes in Blood by Automated counOrdered By: Laurent Clark on 02-25-2022 WBC corrected for nucl RBC Auto (Bld) [#/Vol] 5.6 10*3/uL 3.8-11.6 [facility] Lymphocytes Auto (Bld) [#/Vo l]Ordered By: Laurent Clark on 02-25-2022 Lymphocytes (Bld) [#/Vol] 0.7 10*3/uL 1.00-4.8 [facility] Lymphocytes/100 WBC Auto (Bl d)Ordered By: Laurent Clark on 02-25-2022 Lymphocytes/100 WBC (Bld) 11.7 % . [facility] MCH Auto (RBC) [Entitic mass ]Ordered By: Lauernt Clark on 02-25-2022 MCH (RBC) [Entitic mass] 32.9 pg 24.7-34.3 [facility] MCHC Auto (RBC) [Mass/Vol]Or dered By: Laurent Clark on 02-25-2022 MCHC (RBC) [Mass/Vol] 34.2 g/dL 32.0-35.0 [facility] MCV Auto (RBC) [Entitic vol] Ordered By: Laurent Clark on 02-25-2022 MCV (RBC) [Entitic vol] 96.2 fL 80-100 [facility] Monocytes Auto (Bld) [#/Vol] Ordered By: Laurent Clark on 02-25-2022 Monocytes (Bld) [#/Vol] 0.4 10*3/uL 0.0-0.8 [facility] Monocytes/100 WBC Auto (Bld) Ordered By: Laurent Clark on 02-25-2022 Monocytes/100 WBC (Bld) 7.6 % . [facility] Neutrophils Auto (Bld) [#/Vo l]Ordered By: Laurent Clark on 02-25-2022 Neutrophils (Bld) [#/Vol] 4.4 10*3/uL 1.8-7.7 [facility] Neutrophils/100 WBC Auto (Bl d)Ordered By: Laurent Clark on 02-25-2022 Neutrophils/100 WBC (Bld) 78.1 % . [facility] No Panel InformationOrdered By: Ajay Elam on 02-25-2022 Estimated GFR () > 60 mL/Min [facility] Comment on above: GFR estimated refere nce range: According to KDOQI guidelines, <60 ml/min/1.73m2 is sufficient to diagnose a patient with chronic kidney disease. Pharmacy Creatinine Clearance (Chem N/A [facility] Nucleated erythrocytes [Pres ence] in Blood by Automated countOrdered By: Laurent Clark on 02-25-2022 Nucleated RBC Auto Ql (Bld) 0.2 /100{WBC} 0-0.5 [facility] Phosphate [Mass/volume] in S michael or PlasmaOrdered By: Mickey Lovett on 02-25-2022 Phosphate [Mass/Vol] 3.8 mg/dL 2.5-4.6 [facility] Platelet adequacy [Presence] in Blood by Light microscopyOrdered By: Laurent Clark on 02-25-2022 Platelets LM Ql (Bld) Decreased Normal [facility] Platelet mean volume Auto (B ld) [Entitic vol]Ordered By: Laurent Clark on 02-25-2022 Platelet mean volume (Bld) [Entitic vol] 10.2 fL 6.3-10.7 [facility] Platelet morphology finding [Identifier] in BloodOrdered By: Laurent Clark on 02-25-2022 Platelet morphology finding Nom (Bld) N/A [facility] Platelet poor plasma interna tional normalized ratio (INR) by coagulation assay (relatOrdered By: Laurent Clark on 02-25-2022 INR Coag (PPP) [Relative time] 1.2 {INR} [facility] Comment on above: INR Therapeutic Rang e A) Pre- and Peroperative OAT started two weeks before surgery. NOT HIP SURGERY: 1.5 - 2.5 HIP SURGERY: 2 - 3B) Primary and secondary prevention of venous THROMBOSIS: 2 - 3C) Active venous thrombosis, pulmonary embolismand prevention of recurrent venous thrombosis: 2 - 3D) Prevention of arterial thromboembolismincluding patients with mechanical heart valves: 3 - 4.5 Platelets Auto (Bld) [#/Vol] Ordered By: Laurent Clark on 02-25-2022 Platelets (Bld) [#/Vol] 69 10*3/uL 150-450 [facility] Platelets Large [Presence] i n Blood by Light microscopyOrdered By: Laurent Clark on 02-25-2022 Platelets Large LM Ql (Bld) Slight [facility] Polychromasia [Presence] in Blood by Light microscopyOrdered By: Laurent Clark on 02-25-2022 Polychromasia LM Ql (Bld) Slight [facility] Protein [Mass/volume] in Ser um or PlasmaOrdered By: Ajay Elam on 02-25-2022 Protein [Mass/Vol] 7.7 g/dL 6.1-7.9 [facility] RBC Auto (Bld) [#/Vol]Ordere d By: Laurent Clark on 02-25-2022 RBC (Bld) [#/Vol] 4.79 10*6/uL 3.60-5.00 [facility] RBC morphologyOrdered By: Michael Clark on 02-25-2022 RBC morphology finding Nom (Bld) N/A [facility] Serum or plasma alanine grajeda otransferase measurement without P-5'-P (enzymatic activiOrdered By: Ajay Elam on 02-25-2022 ALT No additional P-5'-P [Catalytic activity/Vol] 34 U/L 10-60 [facility] Serum or plasma albumin/glob ulin mass ratioOrdered By: Ajay Elam on 02-25-2022 Albumin/Globulin [Mass ratio] 0.7 {ratio} [facility] Serum or plasma alkaline jordan sphatase measurement (enzymatic activity/volume)Ordered By: Ajay Elam on 02-25-2022 ALP [Catalytic activity/Vol] 160 U/L 32-92 [facility] Serum or plasma [id number] protein tumor marker measurement (mass/volume)Ordered By: Laurent Clark on 02-25-2022 AFP.tumor marker [Mass/Vol] 2.7 ng/mL 0.0-9.2 [facility] Comment on above: [employer] El ectrochemiluminescence Immunoassay(ECLIA)Values obtained with different assay methods or kits cannotbe used interchangeably. Results cannot be interpreted asabsolute evidence of the presence or absence of malignantdisease.This test is not interpretable in females.Performed at: [facility] [address] [id number] Director: Bret Montgomery PhD, Phone: [phone] Serum or plasma anion gap de terminationOrdered By: Ajay Elam on 02-25-2022 Anion gap [Moles/Vol] 13.4 mmol/L 6.0-15.0 [facility] Serum or plasma aspartate am inotransferase measurement (enzymatic activity/volume)Ordered By: Ajay Elam on 02-25-2022 AST [Catalytic activity/Vol] 49 U/L 10-42 [facility] Serum or plasma calcium elis urement (mass/volume)Ordered By: Ajay Elam on 02-25-2022 Calcium [Mass/Vol] 8.8 mg/dL 8.2-10.2 [facility] Serum or plasma chloride neo surement (moles/volume)Ordered By: Ajay Elam on 02-25-2022 Chloride [Moles/Vol] 94 mmol/L 95-114 [facility] Serum or plasma glucose elis urement (mass/volume)Ordered By: Ajay Elam on 02-25-2022 Glucose [Mass/Vol] 308 mg/dL 70-100 [facility] Comment on above: ADA recommended refe rence rangeRandom Glucose Reference Range is dependent on time and content of last meal. Glucose of more than 200 mg/dL in a nonstressed, ambulatory subject supports the diagnosis of Diabetes Mellitus. Serum or plasma high density lipoprotein (HDL) cholesterol measurementOrdered By: Ajay Elam on 02-25-2022 Cholesterol in HDL [Mass/Vol] 54 mg/dL 35-85 [facility] Comment on above: HDL CHOL ATP-III CLA SSIFICATION Cardiovascular RiskHDL > or equal to 60 mg/dL LOWHDL < 40 mg/dL HIGH Serum or plasma potassium me asurement (moles/volume)Ordered By: Ajay Elam on 02-25-2022 Potassium [Moles/Vol] 4.8 mmol/L 3.5-5.1 [facility] Serum or plasma sodium measu rement (moles/volume)Ordered By: Ajay Elam on 02-25-2022 Sodium [Moles/Vol] 126 mmol/L 136-146 [facility] Serum or plasma total biliru bin measurement (mass/volume)Ordered By: Ajay Elam on 02-25-2022 Bilirubin [Mass/Vol] 1.7 mg/dL 0.3-1.2 [facility] Comment on above: Samples from patient s who have taken Naproxen have shown spurious elevation in Total Bilirubin levels. A metabolite of Naproxen, O-desmethylnaproxen, has been shown to interfere with the Handy-Danny method for measuring Total Bilirubin. Serum or plasma total carbon dioxide measurement (moles/volume)Ordered By: Ajay Elam on 02-25-2022 CO2 [Moles/Vol] 23.4 mmol/L 22.0-30.0 [facility] Serum or plasma total choles terol/high density lipoprotein (HDL) cholesterol mass ratOrdered By: Ajay Elam on 02-25-2022 Cholesterol.total/Cho lesterol in HDL [Mass ratio] 2.4 {ratio} <5.0 [facility] Serum or plasma urea nitroge n measurement (mass/volume)Ordered By: Ajay Elam on 02-25-2022 Urea nitrogen [Mass/Vol] 14 mg/dL 9- [facility] Triglyceride [Mass/volume] i n Serum or PlasmaOrdered By: Ajay [facility] on 02-25-2022 Triglyceride [Mass/Vol] 83 mg/dL 35-149 [facility] Comment on above: TRIG ATP III CLASSIF ICATIONTRIG less than 150 mg/dL NormalTRIG 150-199 mg/dL Borderline highTRIG 200-500 mg/dL High TRIG greater than 500 mg/dL Very highStandard traceable to the Center for Disease Conrtrol and Prevention (CDC) test method. Urine microalbumin measureme nt with detection limit of 20 mg/L or less (mass/volume)Ordered By: Ajay Elam on 02-25-2022 Albumin DL <= 20 mg/L (U) [Mass/Vol] 0.4 mg/dL 0.0-1.8 [facility] Urine microalbumin/creatinin e mass ratioOrdered By: Ajay Elam on 02-25-2022 Albumin/Creatinine DL <= 20 mg/L (U) [Mass ratio] 3.0 mg/g 0.0-30.0 [facility] Comment on above: 30-300 mg/g indicate s an increased risk for diabetic nephropathy. Greater than 300 mg/g is consistent with clinical nephropathy. (Am. J. Kidney Disease 1995, 25:107) WBC Auto (Bld) [#/Vol]Ordere d By: Laurent Clark on 02-25-2022 WBC (Bld) [#/Vol] 5.6 10*3/uL 3.8-11.6 [facility] A1C HEMOGLOBINon 01-05-2022 HbA1c (Bld) [Mass fraction] 11 % [employer] Other Glucose - FINGER STICKon Glucose [Mass/Vol] 195 mg/dL [employer] Other HbA1c (Bld) [Mass fraction]o n 01-05-2022 A1C HEMOGLOBIN [employer] Other A1C HEMOGLOBINon 09-23-2021 HbA1c (Bld) [Mass fraction] 9.3 % [employer] [facility] [employer] Other Glucose - FINGER STICKon Glucose [Mass/Vol] 151 mg/dL [employer] Other HbA1c (Bld) [Mass fraction]o n 09-23-2021 A1C HEMOGLOBIN [employer] Other OSMOLALITYon 05-14-2021 Osmolality [Osmolality] 273 mosm/kg Critically low 275-295 [facility] Comment on above: Performed By: #### C BC #### [facility] [address] [place] [address] Edy Mari OSMOLALITY URINEon Osmolality, Urine 221 mOsmol/kg Normal [facility] Comment on above: Result Comment: 24 h r : 300 - 900 Random: 50 - 1400 After 12hr fluid restriction: >850 Performed By: #### C BC #### [facility] [address] [id number] Edy Mari MAGNESIUMon 05-12-2021 Magnesium [Mass/Vol] 1.7 mg/dL Normal 1.6-2.3 [facility] Comment on above: Performed By: #### C MP #### [facility] [address] [place], [place] [phone] Edy Mari PROF CHEM 8 (BAS METB)on Anion gap [Moles/Vol] 10.0 mmol/L Normal [facility] Comment on above: Performed By: #### C MP #### [facility] [address] [place] [address] Edy Mari Calcium [Mass/Vol] 8.1 mg/dL Critically low 8.4-10.2 [facility] Comment on above: Performed By: #### C MP #### [facility] [address] [place] [address] Edy Mari Chloride [Moles/Vol] 93 mmol/L Critically low 98-107 [facility] Comment on above: Performed By: #### C MP #### [facility] [address] [place] [address] Edy Mari CO2 [Moles/Vol] 30.2 mmol/L Critically high 22.0-30.0 [facility] Comment on above: Performed By: #### C MP #### [facility] [address] [place] [address] Edy Mari Creatinine [Mass/Vol] 0.75 mg/dL Normal 0.52-1.04 [facility] Comment on above: Performed By: #### C MP #### [facility] [address] [place], [place] [address] Edy Mari EGFR-AF NIGERIAN >60 Normal >=60 [facility] Comment on above: Performed By: #### C MP #### [facility] [address] [place], [place] [address] Edy Mari EGFR-NON AF NIGERIAN >60 Normal >=60 [facility] Comment on above: Performed By: #### C MP #### [facility] [address] [place], [place] [phone] Edy Mari Glucose [Mass/Vol] 269 mg/dL Critically high 74-106 [facility] Comment on above: Performed By: #### C MP #### [facility] [address] [employer] [place] [address] Edy Mari Potassium [Moles/Vol] 4.2 mmol/L Normal 3.4-5.0 [facility] Comment on above: Performed By: #### C MP #### [facility] [address] [place] [address] Edy Mari Sodium [Moles/Vol] 129 mmol/L Critically low 137-145 [facility] Comment on above: Performed By: #### C MP #### [facility] [address] [place] [address] Edy Mari Urea nitrogen [Mass/Vol] 11.0 mg/dL Normal 7.0-17.0 [facility] Comment on above: Performed By: #### C MP #### [facility] [address] [place], [place] [address] Edy Mari Urea nitrogen/Creatinine [Mass ratio] 14.7 mg/mg Normal [facility] Comment on above: Performed By: #### C MP #### [facility] [address] [place], [place] [phone] Edy Mari SODIUM RANDOM URINEon 2021 Sodium (U) [Moles/Vol] 68 mmol/L Normal 30-90 [facility] Comment on above: Performed By: #### C MP #### [facility] [address] [place], [place] [address] Edy Mari VITAMIN D 25 OHon 05-12-2021 VIT D 25-OH 37.7 ng/mL Normal [facility] Comment on above: Performed By: #### C BC #### [facility] [address] [place] [address] Edy Mari VIT D RANGES SEE BELOW Normal [facility] Comment on above: Result Comment: <20 ng/mL Vit D deficient 20 - <30 ng/mL Vit D insufficient 30 - 100 ng/mL Vit D sufficient >100 ng/mL Potential Toxicity Performed By: #### C BC #### [facility] [address] [place] [address] Edy Mari ACETONE SERUMon 05-09-2021 ACETONE Negative Normal NEGATIVE [facility] Comment on above: Performed By: #### C BC #### [facility] [address] [place], [place] [address] Edy Mari CBC AUTO DIFFon 05-09-2021 BASO # 0.1 103/ul Normal 0.0-0.1 [facility] Comment on above: Performed By: #### C MP #### [facility] [address] [id number] Edy Mari Basophils/100 WBC (Bld) 0.7 % Normal 0.2-2.0 [facility] Comment on above: Performed By: #### C MP #### [facility] [address] [phone] Edy Mari EO # 0.2 103/ul Normal 0.0-0.7 [facility] Comment on above: Performed By: #### C MP #### [facility] [address] [phone] Edy Mari Eosinophils/100 WBC (Bld) 2.0 % Normal 0.9-7.0 [facility] Comment on above: Performed By: #### C MP #### [facility] [address] [phone] Edy Mari Erythrocyte distribution width (RBC) [Ratio] 12.8 % Normal 11.0-15.0 [facility] Comment on above: Performed By: #### C MP #### [facility] [address] [place], [place] [address] Edy Mari Hematocrit (Bld) [Volume fraction] 43.1 % Normal 36.0-48.0 [facility] Comment on above: Performed By: #### C MP #### [facility] [address] [phone] Edy Mari Hemoglobin (Bld) [Mass/Vol] 15.1 g/dL Normal 12.0-16.0 [facility] Comment on above: Performed By: #### C MP #### [facility] [address] [phone] Edy Mari IG # 0.03 10e3/ul Normal 0.00-0.03 [facility] Comment on above: Performed By: #### C MP #### [facility] [address] [place], [place] [address] Edy Mari IG % 0.4 % Normal 0.0-0.5 [facility] Comment on above: Performed By: #### C MP #### [facility] [address] [place], [place] [address] Edy Mari LYMPH # 1.0 103/ul Critically low 1.2-3.8 [facility] Comment on above: Performed By: #### C MP #### [facility] [address] [place], [place] [address] Edy Guerra Lymphocytes/100 WBC (Bld) 13.0 % Critically low 20.5-60.0 [facility] Comment on above: Performed By: #### C MP #### [facility] [address] [place], [place] [address] Edy Guerra MANUAL DIFF REQ NO Normal [facility] Comment on above: Performed By: #### C MP #### [facility] [address] [place], [place] [address] Edyjax Salmeronen MCH (RBC) [Entitic mass] 32.1 pg Normal 26.7-34.0 [facility] Comment on above: Performed By: #### C MP #### [facility] [address] [place], [place] [address] Edyjax Guerra MCHC (RBC) [Mass/Vol] 35.0 g/dL Normal 29.9-35.2 [facility] Comment on above: Performed By: #### C MP #### [facility] [address] [place] [address] Edyjax Guerra MCV (RBC) [Entitic vol] 91.7 fL Normal 81.0-99.0 [facility] Comment on above: Performed By: #### C MP #### [facility] [address] [place], [place] [address] Edy Mari MONO # 0.7 103/ul Normal 0.3-0.8 [facility] Comment on above: Performed By: #### C MP #### [facility] [address] [place], [place] [address] Edyjax Guerra Monocytes/100 WBC (Bld) 8.8 % Normal 1.7-12.0 [facility] Comment on above: Performed By: #### C MP #### [facility] [address] [place], [place] [address] Edy Guerra NEUT # 5.6 103/ul Normal 1.4-6.5 [facility] Comment on above: Performed By: #### C MP #### [facility] [address] [place], [place] [address] Edy Guerra Neutrophils/100 WBC (Bld) 75.1 % Critically high 43.0-75.0 [facility] Comment on above: Performed By: #### C MP #### [facility] [address] [place] [address] Edy Guerra Platelet mean volume (Bld) [Entitic vol] 10.8 fL Normal 9.5-13.5 [facility] Comment on above: Performed By: #### C MP #### [facility] [address] [place] [address] Edyjax Salmeronen PLT 115 103/ul Critically low 150-450 [facility] Comment on above: Performed By: #### C MP #### [facility] [address] [place] [address] Edy Mari RBC 4.70 106/ul Normal 4.20-5.40 [facility] Comment on above: Performed By: #### C MP #### [facility] [address] [place] [address] Edyjax Salmeronen WBC 7.4 103/ul Normal 4.0-11.0 [facility] Comment on above: Performed By: #### C MP #### [facility] [address] [place], [place] [address] Edyjax Guerra ER URINE PROFILEon 2 Bilirubin Ql (U) Negative Normal NEGATIVE [facility] Comment on above: Performed By: #### C BC #### [facility] [address] [place], [place] [address] Edy Mari Clarity (U) CLEAR Normal CLEAR [facility] Comment on above: Performed By: #### C BC #### [facility] [address] [place] [address] Edy Mari Color (U) LT. YELLOW Normal YELLOW [facility] Comment on above: Performed By: #### C BC #### [facility] [address] [place] [address] Edy Mari ERUAHD A micrscopic examina tion will be performed if indicated. Normal [facility] Comment on above: Performed By: #### C BC #### [facility] [address] [place] [address] Edy Mari Glucose Ql (U) >1000 Abnormal NEGATIVE [facility] Comment on above: Performed By: #### C BC #### [facility] [address] [place] [address] Edy Mari Hemoglobin Ql (U) Negative Normal NEGATIVE [facility] Comment on above: Performed By: #### C BC #### [facility] [address] [place] [address] Edy Mari Ketones Ql (U) Negative Normal NEGATIVE [facility] Comment on above: Performed By: #### C BC #### [facility] [address] [place] [address] Edy Mari LEUKOCYTES Negative Normal NEGATIVE [facility] Comment on above: Performed By: #### C BC #### [facility] [address] [place] [address] Edy Mari Nitrite Ql (U) Negative Normal NEGATIVE [facility] Comment on above: Performed By: #### C BC #### [facility] [address] [place] [address] Edy Mari pH (U) 6.5 [pH] Normal 5-9 [facility] Comment on above: Performed By: #### C BC #### [facility] [address] [place] [address] Edy Mari SPEC GRAVITY <=1.005 Abnormal 1.005-<=1. 025 [facility] Comment on above: Performed By: #### C BC #### [facility] [address] [place] [address] Edy Mari UA PROTEIN Negative Normal NEGATIVE/ TRACE [facility] Comment on above: Performed By: #### C BC #### [facility] [address] [place] [address] Edy Guerra UR MICRO IND NOT INDICATED Normal [facility] Comment on above: Performed By: #### C BC #### [facility] [address] [place], [place] [address] Edy Guerra Urobilinogen Qn (U) 0.2 {Bin'U}/dL Normal 0.2 - 1. 0 [facility] Comment on above: Performed By: #### C BC #### [facility] [address] [place], [place] [address] Edy Guerra PH VENOUS BLOODon 05-09-2021 PCO2 VENOUS 43.4 mmHg Normal 40.0-52.0 [facility] Comment on above: Performed By: #### C BC #### [facility] [address] [place] [address] Edy Guerra pH VENOUS 7.431 Critically high 7.330-7.43 0 [facility] Comment on above: Performed By: #### C BC #### [facility] [address] [place] [address] Edy Guerra POINT OF CARE GLUCOSEon 04-29 Glucose [Mass/Vol] 222 mg/dL Critically high 74-106 [facility] Comment on above: Performed By: #### C BC #### [facility] [address] [place], [place] [address] Edy Guerra PROF 14(COMP METB)on 022 Albumin [Mass/Vol] 2.4 g/dL Critically low 3.5-5.0 [facility] Comment on above: Performed By: #### C MP #### [facility] [address] [place], [place] [address] Edy Mari Albumin/Globulin [Mass ratio] 0.5 {ratio} Normal [facility] Comment on above: Performed By: #### C MP #### [facility] [address] [place] [address] Edy Mari ALP [Catalytic activity/Vol] 125 U/L Normal 38-126 [facility] Comment on above: Performed By: #### C MP #### [facility] [address], [place] [address] Edy Mari ALT [Catalytic activity/Vol] 19 U/L Normal 9-52 [facility] Comment on above: Performed By: #### C MP #### [facility] [address], [place] [address] Edy Mari Anion gap [Moles/Vol] 8.8 mmol/L Normal [facility] Comment on above: Performed By: #### C MP #### [facility] [address] [phone] Edy Mari AST [Catalytic activity/Vol] 24 U/L Normal 14-36 [facility] Comment on above: Performed By: #### C MP #### [facility] [address] [place], [place] [address] Edy Mari Bilirubin [Mass/Vol] 1.2 mg/dL Normal 0.2-1.3 [facility] Comment on above: Performed By: #### C MP #### [facility] [address], [place] [address] Edy Mari Calcium [Mass/Vol] 8.0 mg/dL Critically low 8.4-10.2 [facility] Comment on above: Performed By: #### C MP #### [facility] [address] [place], [place] [address] Edy Mari Chloride [Moles/Vol] 91 mmol/L Critically low 98-107 [facility] Comment on above: Performed By: #### C MP #### [facility] [address], [place] [address] Edy Mari CO2 [Moles/Vol] 27.4 mmol/L Normal 22.0-30.0 [facility] Comment on above: Performed By: #### C MP #### [facility] [address], [place] [address] Edy Mari Creatinine [Mass/Vol] 0.72 mg/dL Normal 0.52-1.04 [facility] Comment on above: Performed By: #### C MP #### [facility] [address] [phone] Edy Mari EGFR-AF NIGERIAN >60 Normal >=60 [facility] Comment on above: Performed By: #### C MP #### [facility] [address] [phone] Edy Mari EGFR-NON AF NIGERIAN >60 Normal >=60 [facility] Comment on above: Performed By: #### C MP #### [facility] [address] [address] Edy Mari Globulin (S) [Mass/Vol] 4.4 g/dL Normal [facility] Comment on above: Performed By: #### C MP #### [facility] [address] [place] [address] Edy Mari Glucose [Mass/Vol] 307 mg/dL Critically high 74-106 [facility] Comment on above: Performed By: #### C MP #### [facility] [address] [address] Edy Mari Potassium [Moles/Vol] 4.2 mmol/L Normal 3.4-5.0 [facility] Comment on above: Performed By: #### C MP #### [facility] [address] [place] [address] Edy Mari Protein [Mass/Vol] 6.8 g/dL Normal 6.1-8.2 [facility] Comment on above: Performed By: #### C MP #### [facility] [address] [place] [address] Edy Mari Sodium [Moles/Vol] 123 mmol/L Critically low 137-145 [facility] Comment on above: Result Comment: TEST REPEATED CRITICAL VALUE VERIFIED Performed By: #### C MP #### [facility] [address] [place] [address] Edy Mari Urea nitrogen [Mass/Vol] 10.0 mg/dL Normal 7.0-17.0 [facility] Comment on above: Performed By: #### C MP #### [facility] [address] [place] [address] Edy Guerra Urea nitrogen/Creatinine [Mass ratio] 13.9 mg/mg Normal [facility] Comment on above: Performed By: #### C MP #### [facility] [address] [phone] Edy Guerra PROF CHEM 8 (BAS METB)on Anion gap [Moles/Vol] 9.1 mmol/L Normal [facility] Comment on above: Performed By: #### C BC #### [facility] [address] [phone] Edy Mari Calcium [Mass/Vol] 7.4 mg/dL Critically low 8.4-10.2 [facility] Comment on above: Performed By: #### C BC #### [facility] [address] [address] Edy Mari Chloride [Moles/Vol] 94 mmol/L Critically low 98-107 [facility] Comment on above: Performed By: #### C BC #### [facility] [address] [phone] Edy Mari CO2 [Moles/Vol] 26.8 mmol/L Normal 22.0-30.0 [facility] Comment on above: Performed By: #### C BC #### [facility] [address] [place], [place] [address] Edy Mari Creatinine [Mass/Vol] 0.81 mg/dL Normal 0.52-1.04 [facility] Comment on above: Performed By: #### C BC #### [facility] [address] [place], [place] [address] Edy Mari EGFR-AF NIGERIAN >60 Normal >=60 [facility] Comment on above: Performed By: #### C BC #### [facility] [address] [place], [place] [address] Edy Mari EGFR-NON AF NIGERIAN >60 Normal >=60 [facility] Comment on above: Performed By: #### C BC #### [facility] [address] [phone] Edy Mari Glucose [Mass/Vol] 535 mg/dL Critically high 74-106 T [facility] Comment on above: Performed By: #### C BC #### [facility] [address] [id number] Edy Mari Potassium [Moles/Vol] 4.9 mmol/L Normal 3.4-5.0 [facility] Comment on above: Performed By: #### C BC #### [facility] [address] [id number] Edy Mari Sodium [Moles/Vol] 125 mmol/L Critically low 137-145 [facility] Comment on above: Performed By: #### C BC #### [facility] [address] [place], [place] [id number] Edy Mari Urea nitrogen [Mass/Vol] 9.0 mg/dL Normal 7.0-17.0 [facility] Comment on above: Performed By: #### C BC #### [facility] [address] [place] [address] Edy Mari Urea nitrogen/Creatinine [Mass ratio] 11.1 mg/mg Normal [facility] Comment on above: Performed By: #### C BC #### [facility] [address] [place], [place] [id number] Edy Mari CBC AUTO DIFFon 03-31-2021 BASO # 0.1 103/ul Normal 0.0-0.1 [facility] Comment on above: Performed By: #### C MP #### [facility] [address] [place], [place] [id number] Edy Mari Basophils/100 WBC (Bld) 0.6 % Normal 0.2-2.0 [facility] Comment on above: Performed By: #### C MP #### [facility] [address] [place], [place] [id number] Edy Mari EO # 0.1 103/ul Normal 0.0-0.7 [facility] Comment on above: Performed By: #### C MP #### [facility] [address] [place], [place] [phone] Edy Mari Eosinophils/100 WBC (Bld) 0.9 % Normal 0.9-7.0 [facility] Comment on above: Performed By: #### C MP #### [facility] [address] [address] Edyjax Guerra Erythrocyte distribution width (RBC) [Ratio] 13.7 % Normal 11.0-15.0 [facility] Comment on above: Performed By: #### C MP #### [facility] [address] [address] Edy Mari Hematocrit (Bld) [Volume fraction] 50.9 % Critically high 36.0-48.0 [facility] Comment on above: Performed By: #### C MP #### [facility] [address] [place] [address] Edy Mari Hemoglobin (Bld) [Mass/Vol] 17.1 g/dL Critically high 12.0-16.0 [facility] Comment on above: Performed By: #### C MP #### [facility] [address] [place] [address] Edy Mari IG # 0.03 10e3/ul Normal 0.00-0.03 [facility] Comment on above: Performed By: #### C MP #### [facility] [address] [place] [address] Edy Mari IG % 0.3 % Normal 0.0-0.5 [facility] Comment on above: Performed By: #### C MP #### [facility] [address] [place] [address] Edy Mari LYMPH # 1.1 103/ul Critically low 1.2-3.8 [facility] Comment on above: Performed By: #### C MP #### [facility] [address] [place] [address] Edy Guerra Lymphocytes/100 WBC (Bld) 10.0 % Critically low 20.5-60.0 [facility] Comment on above: Performed By: #### C MP #### [facility] [address] [place], [place] [phone] Edy Guerra MANUAL DIFF REQ NO Normal [facility] Comment on above: Performed By: #### C MP #### [facility] [address], [place] [address] Edyjax Guerra MCH (RBC) [Entitic mass] 31.6 pg Normal 26.7-34.0 [facility] Comment on above: Performed By: #### C MP #### [facility] [address] [id number] Edy Guerra MCHC (RBC) [Mass/Vol] 33.6 g/dL Normal 29.9-35.2 [facility] Comment on above: Performed By: #### C MP #### [facility] [address] [phone] Edyjax Guerra MCV (RBC) [Entitic vol] 94.1 fL Normal 81.0-99.0 [facility] Comment on above: Performed By: #### C MP #### [facility] [address] [place], [place] [address] Edy Salmeronen MONO # 1.0 103/ul Critically high 0.3-0.8 [facility] Comment on above: Performed By: #### C MP #### [facility] [address] [id number] Edyjax Salmeronen Monocytes/100 WBC (Bld) 9.3 % Normal 1.7-12.0 [facility] Comment on above: Performed By: #### C MP #### [facility] [address] [phone] Edy Guerra NEUT # 8.5 103/ul Critically high 1.4-6.5 [facility] Comment on above: Performed By: #### C MP #### [facility] [address] [place], [place] [phone] Edy Mari Neutrophils/100 WBC (Bld) 78.9 % Critically high 43.0-75.0 [facility] Comment on above: Performed By: #### C MP #### [facility] [address] [phone] Edy Mari Platelet mean volume (Bld) [Entitic vol] 11.5 fL Normal 9.5-13.5 [facility] Comment on above: Performed By: #### C MP #### [facility] [address], [place] [address] Edy Guerra PLT 91 103/ul Critically low 150-450 [facility] Comment on above: Performed By: #### C MP #### [facility] [address], [place] [address] Edy Guerra RBC 5.41 106/ul Critically high 4.20-5.40 [facility] Comment on above: Performed By: #### C MP #### [facility] [address], [place] [address] Edy Salmeronen WBC 10.8 103/ul Normal 4.0-11.0 [facility] Comment on above: Performed By: #### C MP #### [facility] [address], [place] [address] ABD/PELV W CONon 03-31-19 CT ABD/PELV W CON EXAMINATION: CT SCAN OF THE ABDOMEN AND PELVIS WITH INTRAVENOUS CONTRAST DATE OF EXAM: 03/30/2021 11:23 PM EST HISTORY: GENERALIZED ABDOMINAL PAIN in a 61-year-old female COMPARISON: 10/02/2020. TECHNIQUE: CT examination of the abdomen and pelvis was performed following the intravenous administration of IV contrast. CT dose lowering techniques were used, to include: automated exposure control, adjustment for patient size, and/or use of iterative reconstruction. Contrast: Omnipaque 300 FINDINGS: Lines and Tubes: None Lower Chest: Heart measures within normal with coronary artery calcifications. Free Air: None. Liver: The liver is shrunken with a nodular contour and heterogeneous parenchyma. There is perihepatic free fluid. Gallbladder: Removed Common Bile Duct: Mildly prominent in this patient who is status post cholecystectomy. Pancreas: There is a fluid attenuating region seen in the pancreatic tail that measures approximately 17 mm. The pancreatic duct is unaltered limits of normal. Several fluid attenuating regions which are subcentimeter in size are seen within the pancreatic head. Spleen: Normal Adrenal Glands: Right: Normal Left: Normal Kidneys: Right Kidney: Normal. Right Ureter: Normal. Left Kidney: Normal. Left Ureter: Normal. GI Tract: Stomach: Decompressed Small Bowel: There is fluid filled dilated small bowel which is seen within the umbilical hernia. Abdominal wall defect in the umbilicus measures 3.4 cm x 2.6 cm. There is dilated fluid-filled small bowel with prominent small bowel wall concerning for early vascular compromise within the abdominal wall hernia. There is also a focal loop of small bowel seen within the anterior right hemipelvis that measures 3 cm. Appendix: Normal on axial image 92 and coronal image 39 through 35 Large Bowel: Diverticulosis seen in the sigmoid colon. Decompressed Mesentery/Peritoneum: There is edema and inflammation seen within the small bowel mesentery with prominent vessels within the mesentery. Vasculature: Aorta: Normal. IVC: Normal. Suzie Vein: Normal. Retroperitoneum: Normal Abdominal/Pelvic Wall: Abdominal wall defect in the umbilicus measures 3.4 cm x 2.6 cm. There is dilated fluid-filled small bowel with prominent small bowel wall concerning for early vascular compromise within the abdominal wall hernia. Bladder: Bladder wall is prominent. Reproductive: The uterus is in neutral position. Musculoskeletal: Normal Free Fluid: There is free fluid seen in bilateral colonic gutters. There is also free fluid seen in the pelvis. IMPRESSION: 1. Small bowel obstruction caused by a small bowel and omental fat filled umbilical hernia with dilated small bowel within the hernia and prominence wall enhancement concerning for early vascular compromise and/or strangulation. General surgery consultation is recommended. 2. Bladder wall prominence. Please correlate for cystitis. 3. Normal appendix. 4. Diverticulosis. 5. Pancreatic tail and head cystic lesions with the largest seen in the tail. 6. Status post cholecystectomy. 7. Cirrhotic liver. Critical results were called by Dr. Sonal Jj MD to Dr. Keene At 03/31/2021 12:12 AM EST. Electronically authenticated by: SONAL JJ Date: 2021-03-31 00:39 Normal [facility] Covid-19 PCR (CVDTBH)on 03-03 SARS-CoV-2 (COVID-19) RNA QUYNH+probe Ql (Unsp spec) Not detected Normal NOT DETECTED [facility] Comment on above: Result Comment: This test is not yet approved or cleared by the [place] FDA. When there are no FDA-approved or cleared tests available, and other criteria are met, FDA can make tests available under an emergency access mechanism called an Emergency Use Authorization (EUA). The EUA for this test is supported by the [place] of Health and Human Service's (HHS's) declaration that circumstances exist to justify the emergency use of in vitro diagnostics for the detection and/or diagnosis of the virus that causes COVID-19. This EUA will remain in effect (meaning this test can be used) for the duration of the COVID-19 declaration justifying emergency of IVDs, unless it is terminated or revoked by FDA (after which the test may no longer be used). When diagnostic testing is negative, the possibility of a false negative should be considered in the context of a patient's recent exposures and the presence of clinical signs and symptoms consistent with SARS-CoV-2. Performed By: #### C MP #### [facility] [address] [place] [address] Edy Guerra LACTATE/LACTIC ACIDon 2021 Lactate [Moles/Vol] 2.1 mmol/L Critically high 0.7-2.0 [facility] Comment on above: Performed By: #### C BC #### [facility] [address] [place] [address] Edy Guerra PROF 14(COMP METB)on 022 Albumin [Mass/Vol] 3.2 g/dL Critically low 3.5-5.0 [facility] Comment on above: Performed By: #### C MP #### [facility] [address] [place] [address] Dr. Dallin Harper Albumin/Globulin [Mass ratio] 0.6 {ratio} Normal [facility] Comment on above: Performed By: #### C MP #### [facility] [address] [place] [address] Dr. Dallin Harper ALP [Catalytic activity/Vol] 168 U/L Critically high 38-126 [facility] Comment on above: Performed By: #### C MP #### [facility] [address] [place] [address] Dr. Dallin Harper ALT [Catalytic activity/Vol] 22 U/L Normal 9-52 [facility] Comment on above: Performed By: #### C MP #### [facility] [address] [place] [address] Dr. Dallin Harper Anion gap [Moles/Vol] 11.5 mmol/L Normal [facility] Comment on above: Performed By: #### C MP #### [facility] [address] [address] [address] Dallin Harper AST [Catalytic activity/Vol] 30 U/L Normal 14-36 [facility] Comment on above: Performed By: #### C MP #### [facility] [address] [address] [address] Dallin Harper Bilirubin [Mass/Vol] 1.8 mg/dL Critically high 0.2-1.3 [facility] Comment on above: Performed By: #### C MP #### [facility] [address] [address] [address] Dallin Harper Calcium [Mass/Vol] 9.0 mg/dL Normal 8.4-10.2 [facility] Comment on above: Performed By: #### C MP #### [facility] [address] [address] [address] Dallin Harper Chloride [Moles/Vol] 95 mmol/L Critically low 98-107 [facility] Comment on above: Performed By: #### C MP #### [facility] [address] [address] [address] Dallin Harper CO2 [Moles/Vol] 26.0 mmol/L Normal 22.0-30.0 [facility] Comment on above: Performed By: #### C MP #### [facility] [address] [address] [address] Dallin Harper Creatinine [Mass/Vol] 0.93 mg/dL Normal 0.52-1.04 [facility] Comment on above: Performed By: #### C MP #### [facility] [address] [address] [address] Dallin Harper EGFR-AF NIGERIAN >60 Normal >=60 [facility] Comment on above: Performed By: #### C MP #### [facility] [address] [address] [address] Dallin Harper EGFR-NON AF NIGERIAN >60 Normal >=60 [facility] Comment on above: Performed By: #### C MP #### [facility] [address] [address] [address] Dallin Harper Globulin (S) [Mass/Vol] 5.3 g/dL Normal [facility] Comment on above: Performed By: #### C MP #### [facility] [address] [address] [address] Dallin Harper Glucose [Mass/Vol] 289 mg/dL Critically high 74-106 [facility] Comment on above: Performed By: #### C MP #### [facility] [address] [address] [address] Dallin Harper Potassium [Moles/Vol] 4.5 mmol/L Normal 3.4-5.0 [facility] Comment on above: Performed By: #### C MP #### [facility] [address] [address] [address] Dallin Harper Protein [Mass/Vol] 8.5 g/dL Critically high 6.1-8.2 [facility] Comment on above: Performed By: #### C MP #### [facility] [address] [address] [address] Dallin Harper Sodium [Moles/Vol] 128 mmol/L Critically low 137-145 [facility] Comment on above: Performed By: #### C MP #### [facility] [address] [address] [address] Dallin Harper Urea nitrogen [Mass/Vol] 20.0 mg/dL Critically high 7.0-17.0 [facility] Comment on above: Performed By: #### C MP #### [facility] [address] [address] [address] Dallin Harper Urea nitrogen/Creatinine [Mass ratio] 21.5 mg/mg Normal [facility] Comment on above: Performed By: #### C MP #### [facility] [address] [place] [address] Dr. Dallin Harper XR CHEST 1 Von 03-31-2021 XR CHEST 1 V XR CHEST 1 V 03/31/2021 3:13 AM EST Indication: NAUSEA WITH VOMITING, UNSPECIFIED Technique: Portable AP radiograph of the chest was obtained. Comparison: February 11, 2020 Findings: The lungs are adequately inflated. No acute rib fractures, pneumothorax or mediastinal shift. No consolidation, edema, or effusion. Heart is normal in size and contour. Enteric tube noted with tip and side-port below the diaphragm. There is diffuse gaseous distention of bowel in the upper abdomen. Impression: 1. No acute findings in the chest. 2. Diffuse gaseous distention of bowel in the upper abdomen. Enteric tube in adequate position. Electronically authenticated by: FELISHA DA SILVA Date: 2021-03-31 03:58 Normal [facility] LIPID PROFILEon 02-18-2021 CHOL-HDL RATIO NORM SEE BELOW Normal [facility] Comment on above: Result Comment: 3.3 - 4.4 LOW RISK 4.4 - 7.1 AVERAGE RISK 7.1 - 11.0 MODERATE RISK >11.0 HIGH RISK Performed By: #### L IPID, CMP #### [facility] [address] [address] [address] Dallin Harper Cholesterol [Mass/Vol] 94 mg/dL Normal <=200 [facility] Comment on above: Performed By: #### L IPID, CMP #### [facility] [address] [address] [address] Dallin Harper Cholesterol in HDL [Mass/Vol] 44 mg/dL Normal [facility] Comment on above: Performed By: #### L IPID, CMP #### [facility] [address] [address] [address] Dallin Harper Cholesterol in LDL [Mass/Vol] 38.4 mg/dL Normal [facility] Comment on above: Performed By: #### L IPID, CMP #### [facility] [address] [address] [address] Dallin Harper Cholesterol.total/Cho lesterol in HDL [Mass ratio] 2.1 {ratio} Normal [facility] Comment on above: Performed By: #### L IPID, CMP #### [facility] [address] [address] [address] Dallin Harper HDL NORMAL > or = 60 mg/dl - LO W CARDIOVASCULAR RISK <40 mg/dl - HIGH CARDIOVASCULAR RISK Normal [facility] Comment on above: Performed By: #### L IPID, CMP #### [facility] [address] [address] [address] Dallin Harper LDL CALC NORMAL SEE BELOW Normal [facility] Comment on above: Result Comment: <100 mg/dl OPTIMAL 100 - 129 mg/dl NEAR OR ABOVE OPTIMAL 130 - 159 mg/dl BORDERLINE HIGH 160 - 189 mg/dl HIGH >190 mg/dl VERY HIGH Performed By: #### L IPID, CMP #### [facility] [address] [address] [address] Dallin Harper Triglyceride [Mass/Vol] 58 mg/dL Normal <=150 [facility] Comment on above: Performed By: #### L IPID, CMP #### [facility] [address] [address] [address] Dallin Harper VLDL CALC 11.6 mg/dL Normal [facility] Comment on above: Performed By: #### L IPID, CMP #### [facility] [address] [address] [address] Dallin Harper MICROALB CREAT RATIO RANDOMo n 02-18-2021 mALB <1.3 Normal <=30.0 [facility] Comment on above: Performed By: #### C MP #### [facility] [address] [place] [address] Edy Guerra URINE CREAT 55.13 mg/dL Normal 20.00-300. 00 [facility] Comment on above: Performed By: #### C MP #### [facility] [address] [address] Edy Guerra PROF 14(COMP METB)on 021 Albumin [Mass/Vol] 2.6 g/dL Critically low 3.5-5.0 [facility] Comment on above: Performed By: #### L IPID, CMP #### [facility] [address] [place] [address] Dr. Dallin Harper Albumin/Globulin [Mass ratio] 0.5 {ratio} Normal [facility] Comment on above: Performed By: #### L IPID, CMP #### [facility] [address] [address] [address] Dallin Harper ALP [Catalytic activity/Vol] 158 U/L Critically high 38-126 [facility] Comment on above: Performed By: #### L IPID, CMP #### [facility] [address] [address] [address] Dallin Harper ALT [Catalytic activity/Vol] 17 U/L Normal 9-52 [facility] Comment on above: Performed By: #### L IPID, CMP #### [facility] [address] [address] [address] Dallin Harper Anion gap [Moles/Vol] 11.0 mmol/L Normal [facility] Comment on above: Performed By: #### L IPID, CMP #### [facility] [address] [address] [address] Dallin Harper AST [Catalytic activity/Vol] 28 U/L Normal 14-36 [facility] Comment on above: Performed By: #### L IPID, CMP #### [facility] [address] [address] [address] Dallin Harper Bilirubin [Mass/Vol] 1.0 mg/dL Normal 0.2-1.3 [facility] Comment on above: Performed By: #### L IPID, CMP #### [facility] [address] [address] [address] Dallin Harper Calcium [Mass/Vol] 8.5 mg/dL Normal 8.4-10.2 [facility] Comment on above: Performed By: #### L IPID, CMP #### [facility] [address] [address] [address] Dallin Harper Chloride [Moles/Vol] 102 mmol/L Normal 98-107 [facility] Comment on above: Performed By: #### L IPID, CMP #### [facility] [address] [address] [address] Dallin Harper CO2 [Moles/Vol] 28.7 mmol/L Normal 22.0-30.0 [facility] Comment on above: Performed By: #### L IPID, CMP #### [facility] [address] [address] [address] Dallin Harper Creatinine [Mass/Vol] 0.60 mg/dL Normal 0.52-1.04 [facility] Comment on above: Performed By: #### L IPID, CMP #### [facility] [address] [address] [address] Dallin Harper EGFR-AF NIGERIAN >60 Normal >=60 [facility] Comment on above: Performed By: #### L IPID, CMP #### [facility] [address] [address] [address] Dallin Harper EGFR-NON AF NIGERIAN >60 Normal >=60 [facility] Comment on above: Performed By: #### L IPID, CMP #### [facility] [address] [address] [address] Dallin Harper Globulin (S) [Mass/Vol] 4.8 g/dL Normal [facility] Comment on above: Performed By: #### L IPID, CMP #### [facility] [address] [address] [address] Dallin Harper Glucose [Mass/Vol] 229 mg/dL Critically high 74-106 [facility] Comment on above: Performed By: #### L IPID, CMP #### [facility] [address] [address] [address] Dallin Harper Potassium [Moles/Vol] 4.7 mmol/L Normal 3.4-5.0 [facility] Comment on above: Performed By: #### L IPID, CMP #### [facility] [address] [address] [address] Dallin Hraper Protein [Mass/Vol] 7.4 g/dL Normal 6.1-8.2 [facility] Comment on above: Performed By: #### L IPID, CMP #### [facility] [address] [address] [address] Dallin Harper Sodium [Moles/Vol] 137 mmol/L Normal 137-145 [facility] Comment on above: Performed By: #### L IPID, CMP #### [facility] [address] [address] [address] Dallin Harper Urea nitrogen [Mass/Vol] 8.0 mg/dL Normal 7.0-17.0 [facility] Comment on above: Performed By: #### L IPID, CMP #### [facility] [address] [address] [address] Dallin Harper Urea nitrogen/Creatinine [Mass ratio] 13.3 mg/mg Normal [facility] Comment on above: Performed By: #### L IPID, CMP #### [facility] [address] [address] [address] Dallin Harper A1C HEMOGLOBINon 02-11-2021 HbA1c (Bld) [Mass fraction] 8.8 % [employer] Other Glucose - FINGER STICKon Glucose [Mass/Vol] 129 mg/dL [employer] Other HbA1c (Bld) [Mass fraction]o n 02-11-2021 A1C HEMOGLOBIN [facility] [employer] Other PROF CHEM 8 (BAS METB)on Anion gap [Moles/Vol] 9.1 mmol/L Normal [facility] Comment on above: Performed By: #### C BC #### [facility] [address] [address] Edy Mari Calcium [Mass/Vol] 8.0 mg/dL Critically low 8.4-10.2 [facility] Comment on above: Performed By: #### C BC #### [facility] [address] [address] Edy Mari Chloride [Moles/Vol] 103 mmol/L Normal 98-107 [facility] Comment on above: Performed By: #### C BC #### [facility] [address] [address] Edy Mari CO2 [Moles/Vol] 28.1 mmol/L Normal 22.0-30.0 [facility] Comment on above: Performed By: #### C BC #### [facility] [address] [id number] Edy Mari Creatinine [Mass/Vol] 0.55 mg/dL Normal 0.52-1.04 [facility] Comment on above: Performed By: #### C BC #### [facility] [address] [id number] Edy Mari EGFR-AF NIGERIAN >60 Normal >=60 [facility] Comment on above: Performed By: #### C BC #### [facility] [address] [place] [address] Edy Mari EGFR-NON AF NIGERIAN >60 Normal >=60 [facility] Comment on above: Performed By: #### C BC #### [facility] Laboratory [address] [place] [address] Edy Mari Glucose [Mass/Vol] 173 mg/dL Critically high 74-106 T [facility] Comment on above: Performed By: #### C BC #### [facility] [address] [place] [address] Edy Mari Potassium [Moles/Vol] 4.2 mmol/L Normal 3.4-5.0 [facility] Comment on above: Performed By: #### C BC #### [facility] [address] [place] [address] Edy Mari Sodium [Moles/Vol] 136 mmol/L Critically low 137-145 Th [facility] Comment on above: Performed By: #### C BC #### [facility] [address] [place] [address] Edy Mari Urea nitrogen [Mass/Vol] 8.0 mg/dL Normal 7.0-17.0 [facility] Comment on above: Performed By: #### C BC #### [facility] [address] [place] [address] Edy Mari Urea nitrogen/Creatinine [Mass ratio] 14.5 mg/mg Normal [facility] Comment on above: Performed By: #### C BC #### [facility] [address] [place], [place] [id number] Edy Mari AFP (TUMOR MARKER)on 021 AFP, Serum, Tumor Marker 1.7 ng/mL Normal 0.0-8.3 [facility] Comment on above: Result Comment: [employer] Electrochemiluminescence Immunoassay (ECLIA) . Values obtained with different assay methods or kits cannot be used interchangeably. Results cannot be interpreted as absolute evidence of the presence or absence of malignant disease. . This test is not interpretable in females. Performed By: #### C MP #### [facility] [address] [place] [address] Edy Mari CBC AUTO DIFFon 10-29-2020 BASO # 0.1 103/ul Normal 0.0-0.1 [facility] Comment on above: Performed By: #### C BC #### [facility] [address] [place] [address] Edy Mari Basophils/100 WBC (Bld) 0.7 % Normal 0.2-2.0 [facility] Comment on above: Performed By: #### C BC #### [facility] [address] [place] [address] Edy Mari EO # 0.2 103/ul Normal 0.0-0.7 [facility] Comment on above: Performed By: #### C BC #### [facility] [address] [place] [address] Edy Mari Eosinophils/100 WBC (Bld) 2.2 % Normal 0.9-7.0 [facility] Comment on above: Performed By: #### C BC #### [facility] [address] [place] [address] Edy Mari Erythrocyte distribution width (RBC) [Ratio] 13.4 % Normal 11.0-15.0 [facility] Comment on above: Performed By: #### C BC #### [facility] [address] [place] [address] Edy Mari Hematocrit (Bld) [Volume fraction] 44.8 % Normal 36.0-48.0 [facility] Comment on above: Performed By: #### C BC #### [facility] [address] [place], [place] [id number] Edy Mari Hemoglobin (Bld) [Mass/Vol] 15.2 g/dL Normal 12.0-16.0 [facility] Comment on above: Performed By: #### C BC #### [facility] [address] [place] [address] Edyjax Guerra IG # 0.02 10e3/ul Normal 0.00-0.03 [facility] Comment on above: Performed By: #### C BC #### [facility] [address] [place] [address] Edyjax Guerra IG % 0.3 % Normal 0.0-0.5 [facility] Comment on above: Performed By: #### C BC #### [facility] [address] [place] [address] Edyjax Guerra LYMPH # 1.1 103/ul Critically low 1.2-3.8 [facility] Comment on above: Performed By: #### C BC #### [facility] [address] [place] [address] Edy Guerra Lymphocytes/100 WBC (Bld) 15.0 % Critically low 20.5-60.0 [facility] Comment on above: Performed By: #### C BC #### [facility] [address] [place] [address] Edy Guerra MANUAL DIFF REQ NO Normal [facility] Comment on above: Performed By: #### C BC #### [facility] [address] [place] [address] Edy Guerra MCH (RBC) [Entitic mass] 32.8 pg Normal 26.7-34.0 [facility] Comment on above: Performed By: #### C BC #### [facility] [address] [place] [address] Edy Guerra MCHC (RBC) [Mass/Vol] 33.9 g/dL Normal 29.9-35.2 [facility] Comment on above: Performed By: #### C BC #### [facility] [address] [place] [address] Edy Guerra MCV (RBC) [Entitic vol] 96.8 fL Normal 81.0-99.0 [facility] Comment on above: Performed By: #### C BC #### [facility] [address] [place], [place] [address] Edy Salmeronen MONO # 0.8 103/ul Normal 0.3-0.8 [facility] Comment on above: Performed By: #### C BC #### [facility] [address] [place] [id number] Edyjax Salmeronen Monocytes/100 WBC (Bld) 10.6 % Normal 1.7-12.0 [facility] Comment on above: Performed By: #### C BC #### [facility] [address] [place] [id number] Edy Mari NEUT # 5.2 103/ul Normal 1.4-6.5 [facility] Comment on above: Performed By: #### C BC #### [facility] [address] [place], [place] [address] Edy Mari Neutrophils/100 WBC (Bld) 71.2 % Normal 43.0-75.0 [facility] Comment on above: Performed By: #### C BC #### [facility] [address] [place], [place] [address] Edyjax Guerra Platelet mean volume (Bld) [Entitic vol] 11.5 fL Normal 9.5-13.5 [facility] Comment on above: Performed By: #### C BC #### [facility] [address] [place], [place] [address] Edy Mari PLT 106 103/ul Critically low 150-450 [facility] Comment on above: Performed By: #### C BC #### [facility] [address] [place], [place] [address] Edy Mari RBC 4.63 106/ul Normal 4.20-5.40 [facility] Comment on above: Performed By: #### C BC #### [facility] [address] [place], [place] [address] Edy Mari WBC 7.3 103/ul Normal 4.0-11.0 [facility] Comment on above: Performed By: #### C BC #### [facility] [address] [place] [id number] Edy Mari PROF 14(COMP METB)on 021 Albumin [Mass/Vol] 2.6 g/dL Critically low 3.5-5.0 [facility] Comment on above: Performed By: #### C MP #### [facility] [address] [place] [id number] Edy Mari Albumin/Globulin [Mass ratio] 0.5 {ratio} Normal [facility] Comment on above: Performed By: #### C MP #### [facility] [address] [place] [id number] Edy Mari ALP [Catalytic activity/Vol] 194 U/L Critically high 38-126 [facility] Comment on above: Performed By: #### C MP #### [facility] [address] [place] [address] Edy Mari ALT [Catalytic activity/Vol] 23 U/L Normal 9-52 [facility] Comment on above: Performed By: #### C MP #### [facility] [address] [place], [place] [address] Edy Mari Anion gap [Moles/Vol] 10.2 mmol/L Normal [facility] Comment on above: Performed By: #### C MP #### [facility] [address] [place] [address] Edy Mari AST [Catalytic activity/Vol] 40 U/L Critically high 14-36 [facility] Comment on above: Performed By: #### C MP #### [facility] [address] [place], [place] [address] Edy Mari Bilirubin [Mass/Vol] 1.3 mg/dL Normal 0.2-1.3 [facility] Comment on above: Performed By: #### C MP #### [facility] [address] [place], [place] [address] Edy Mari Calcium [Mass/Vol] 8.7 mg/dL Normal 8.4-10.2 [facility] Comment on above: Performed By: #### C MP #### [facility] [address] [employer] [place] [address] Edy Mari Chloride [Moles/Vol] 93 mmol/L Critically low 98-107 [facility] Comment on above: Performed By: #### C MP #### [facility] [address] [place] [phone] Edy Mari CO2 [Moles/Vol] 28.5 mmol/L Normal 22.0-30.0 [facility] Comment on above: Performed By: #### C MP #### [facility] [address] [place] [address] Edy Mari Creatinine [Mass/Vol] 0.72 mg/dL Normal 0.52-1.04 [facility] Comment on above: Performed By: #### C MP #### [facility] [address] [place] [address] Edy Mari EGFR-AF NIGERIAN >60 Normal >=60 [facility] Comment on above: Performed By: #### C MP #### [facility] [address] [place] [address] Edy Mari EGFR-NON AF NIGERIAN >60 Normal >=60 [facility] Comment on above: Performed By: #### C MP #### [facility] [address] [place], [place] [address] Edy Mari Globulin (S) [Mass/Vol] 5.3 g/dL Normal [facility] Comment on above: Performed By: #### C MP #### [facility] [address] [place] [address] Edy Mari Glucose [Mass/Vol] 237 mg/dL Critically high 74-106 [facility] Comment on above: Performed By: #### C MP #### [facility] [address] [place] [address] Edy Mari Potassium [Moles/Vol] 4.7 mmol/L Normal 3.4-5.0 [facility] Comment on above: Performed By: #### C MP #### [facility] [address] [place] [address] Edy Mari Protein [Mass/Vol] 7.9 g/dL Normal 6.1-8.2 [facility] Comment on above: Performed By: #### C MP #### [facility] [address] [place] [phone] Edy Mari Sodium [Moles/Vol] 127 mmol/L Critically low 137-145 [facility] Comment on above: Performed By: #### C MP #### [facility] [address] [place] [phone] Edy Mari Urea nitrogen [Mass/Vol] 8.0 mg/dL Normal 7.0-17.0 [facility] Comment on above: Performed By: #### C MP #### [facility] [address] [place] [phone] Edyjax Guerra Urea nitrogen/Creatinine [Mass ratio] 11.1 mg/mg Normal [facility] Comment on above: Performed By: #### C MP #### [facility] [address] [place] [address] Edy Guerra PROTIMEon 10-29-2020 INR Coag (PPP) [Relative time] 1.18 {INR} Normal [facility] Comment on above: Performed By: #### C BC #### [facility] [address] [place], [place] [address] Edy Mari INR GUIDELINES SEE BELOW Normal [facility] Comment on above: Result Comment: GABY RED INR: 2.0 - 3.0 CONDITIONS NOT LISTED BELOW 2.5 - 3.5 FOR PROSTHETIC HEART VALVE REPLACEMENT 2.5 - 3.5 RECURRENT THROMBOSIS Performed By: #### C BC #### [facility] [address] [place], [place] [address] Edy Mari PT Coag (PPP) [Time] 12.6 s Critically high 9.0-11.6 [facility] Comment on above: Performed By: #### C BC #### [facility] [address] [place], [place] [address] Edyjax Guerra BASIC METABOLIC PANELon 09-30 Calcium [Mass/Vol] 7.7 mg/dL Low 8.6-10.3 [facility] Comment on above: Order Comment: No: D o not add to previous draw Performed By: #### 1 69, 12787 #### [facility] [address] [place] [address], [place] Chloride [Moles/Vol] 102 mmol/L Normal 98-107 [facility] Comment on above: Order Comment: No: D o not add to previous draw Performed By: #### 1 69, 90731 #### [facility] [address] [place] [address], [place] CO2 [Moles/Vol] 23 mmol/L Normal 21-31 [facility] Comment on above: Order Comment: No: D o not add to previous draw Performed By: #### 1 69, 00812 #### [facility] [address] [place] [address], [place] Creatinine [Mass/Vol] 0.57 mg/dL Low 0.60-1.20 [facility] Comment on above: Order Comment: No: D o not add to previous draw Performed By: #### 1 69, 22698 #### [facility] [address] [place] [address], [place] GFR/1.73 sq M.predicted among blacks MDRD (S/P/Bld) [Vol rate/Area] mL/min/{1.73_m2} Normal >60 [facility] Comment on above: Order Comment: No: D o not add to previous draw Performed By: #### 1 69, 34211 #### [facility] [address] [place] [address], [place] GFR/1.73 sq M.predicted among non-blacks MDRD (S/P/Bld) [Vol rate/Area] mL/min/{1.73_m2} Normal >60 [facility] Comment on above: Order Comment: No: D o not add to previous draw Performed By: #### 1 69, 85284 #### [facility] [address] [place] [address], [place] Glucose [Mass/Vol] 226 mg/dL High 70-100 [facility] Comment on above: Order Comment: No: D o not add to previous draw Performed By: #### 1 69, 52690 #### [facility] [address] [place] [address], [facility] Potassium [Moles/Vol] 4.4 mmol/L Normal 3.5-5.1 [facility] Comment on above: Order Comment: No: D o not add to previous draw Performed By: #### 1 69, 26469 #### [facility] [address] [place] [address], [facility] Sodium [Moles/Vol] 131 mmol/L Low 136-145 [facility] Comment on above: Order Comment: No: D o not add to previous draw Performed By: #### 1 69, 12086 #### [facility] [address] Urea nitrogen [Mass/Vol] 10 mg/dL Normal 7-25 [facility] Comment on above: Order Comment: No: D o not add to previous draw Performed By: #### 1 69, 19962 #### [facility] [address] [facility] [place] [address], [facility] CBC W/DIFFon 10-18-2020 ABS IMM GRANS 0.0 10*3/uL Normal 0.0-0.2 [facility] Comment on above: Order Comment: No: D o not add to previous draw Performed By: #### 9 9908, 36883 #### [facility] [address] [place] [address], [facility] ABS NEUTROPHILS 5.1 10*3/uL Normal 1.6-7.6 [facility] Comment on above: Order Comment: No: D o not add to previous draw Performed By: #### 9 9908, 31439 #### [facility] [address] [place] [id number], [facility] Basophils (Bld) [#/Vol] 0.0 10*3/uL Normal 0.0-0.2 [facility] Comment on above: Order Comment: No: D o not add to previous draw Performed By: #### 9 9908, 75953 #### [facility] [address] [place] [address], [place] Basophils/100 WBC (Bld) 0.6 % Normal 0.0-1.0 [facility] Comment on above: Order Comment: No: D o not add to previous draw Performed By: #### 9 9908, 26286 #### [facility] [address] [place] [address], [place] Eosinophils (Bld) [#/Vol] 0.1 10*3/uL Normal 0.0-0.5 [facility] Comment on above: Order Comment: No: D o not add to previous draw Performed By: #### 9 9908, 43509 #### [facility] [address] [place] [id number], [place] Eosinophils/100 WBC (Bld) 1.8 % Normal 0.0-6.0 [facility] Comment on above: Order Comment: No: D o not add to previous draw Performed By: #### 9 9908, 86633 #### [facility] [address] [place] [id number], [place] Erythrocyte distribution width (RBC) [Ratio] 13.0 % Normal 11.5-15.0 [facility] Comment on above: Order Comment: No: D o not add to previous draw Performed By: #### 9 9908, 90784 #### [facility] [address] [place] [address], [place] Hematocrit (Bld) [Volume fraction] 39.2 % Normal 36.0-45.0 [facility] Comment on above: Order Comment: No: D o not add to previous draw Performed By: #### 9 9908, 50224 #### [facility] [address] [place] [address], [place] Hemoglobin (Bld) [Mass/Vol] 13.2 g/dL Normal 12.0-15.0 [facility] Comment on above: Order Comment: No: D o not add to previous draw Performed By: #### 9 9908, 11481 #### [facility] [address] [place] [address], [facility] IMM PLATELET FRAC 7.0 % High 0.8-6.3 [facility] Comment on above: Order Comment: No: D o not add to previous draw Performed By: #### 9 9908, 60560 #### [facility] [address] [place] [address], [facility] IMMATURE GRANS 0.4 % Normal 0.0-1.0 [facility] Comment on above: Order Comment: No: D o not add to previous draw Performed By: #### 9 9908, 69871 #### [facility] [address] [place] [address], [facility] Lymphocytes (Bld) [#/Vol] 1.0 10*3/uL Low 1.2-4.0 [facility] Comment on above: Order Comment: No: D o not add to previous draw Performed By: #### 9 9908, 88341 #### [facility] [address] [facility] [place] [address], [facility] Lymphocytes/100 WBC (Bld) 14.5 % Low 20.0-45.0 [facility] Comment on above: Order Comment: No: D o not add to previous draw Performed By: #### 9 9908, 64472 #### [facility] [address] [place] [id number], [facility] MCH (RBC) [Entitic mass] 32.7 pg Normal 27.0-33.0 [facility] Comment on above: Order Comment: No: D o not add to previous draw Performed By: #### 9 9908, 17606 #### [facility] [address] [place] [address], [facility] MCHC (RBC) [Mass/Vol] 33.7 g/dL Normal 32.0-35.0 [facility] Comment on above: Order Comment: No: D o not add to previous draw Performed By: #### 9 9908, 35790 #### [facility] [address] [place] [id number], [facility] MCV (RBC) [Entitic vol] 97.0 fL Normal 82.0-98.0 [facility] Comment on above: Order Comment: No: D o not add to previous draw Performed By: #### 9 9908, 29771 #### [facility] [address] [place] [address], [facility] Monocytes (Bld) [#/Vol] 0.8 10*3/uL Normal 0.1-1.0 [facility] Comment on above: Order Comment: No: D o not add to previous draw Performed By: #### 9 9908, 12826 #### [facility] [address] [place] [address], [facility] MONOS 11.3 % Normal 5.0-12.0 [facility] Comment on above: Order Comment: No: D o not add to previous draw Performed By: #### 9 9908, 25604 #### [facility] [address] [place] [id number], [facility] Neutrophils/100 WBC (Bld) 71.4 % Normal 40.0-72.0 [facility] Comment on above: Order Comment: No: D o not add to previous draw Performed By: #### 9 9908, 54830 #### [facility] [address] [place] [id number], [place] Nucleated RBC/100 WBC (Bld) [Ratio] 0 % Normal 0-0 [facility] Comment on above: Order Comment: No: D o not add to previous draw Performed By: #### 9 9908, 02929 #### [facility] [address] [place] [address], [facility] PLAT CNT 90 10*3/uL Low 150-400 [facility] Comment on above: Order Comment: No: D o not add to previous draw Performed By: #### 9 9908, 12937 #### [facility] [address] [place] [address], [place] RBC (Bld) [#/Vol] 4.04 10*6/uL Normal 3.80-5.00 [facility] Comment on above: Order Comment: No: D o not add to previous draw Performed By: #### 9 9908, 37363 #### [facility] [address] [place] [address], [facility] WBC (Bld) [#/Vol] 7.17 10*3/uL Normal 4.00-10.60 [facility] Comment on above: Order Comment: No: D o not add to previous draw Performed By: #### 9 9908, 20256 #### [facility] [address] [place] [address], [facility] MAGNESIUM BLOODon 10-18-2020 Magnesium [Mass/Vol] 1.6 mg/dL Low 1.9-2.7 [facility] Comment on above: Order Comment: No: D o not add to previous draw Performed By: #### 1 69, 75211 #### [facility] [address] [place] [address], [facility] POC GLUCOSE LABon 10-18-2020 Glucose [Mass/Vol] 261 mg/dL High 70-100 [facility] Comment on above: Performed By: #### 1 69, 45188 #### [facility] [address] [place] [address], [place] Glucose [Mass/Vol] 153 mg/dL High 70-100 [facility] Comment on above: Performed By: #### 1 69, 52124 #### [facility] [address] [place] [address], [facility] BASIC METABOLIC PANELon 08-1 Calcium [Mass/Vol] 7.8 mg/dL Low 8.6-10.3 [facility] Comment on above: Order Comment: No: D o not add to previous draw Performed By: #### 0 0071, 12081 #### [facility] [address] [place] [address], [place] Chloride [Moles/Vol] 104 mmol/L Normal 98-107 [facility] Comment on above: Order Comment: No: D o not add to previous draw Performed By: #### 0 0071, 07884 #### [facility] [address] [place] [address], [facility] CO2 [Moles/Vol] 25 mmol/L Normal 21-31 [facility] Comment on above: Order Comment: No: D o not add to previous draw Performed By: #### 0 0071, 67078 #### [facility] [address] [place] [address], [place] Creatinine [Mass/Vol] 0.45 mg/dL Low 0.60-1.20 [facility] Comment on above: Order Comment: No: D o not add to previous draw Performed By: #### 0 0071, 67813 #### [facility] [address] [place] [address], [place] GFR/1.73 sq M.predicted among blacks MDRD (S/P/Bld) [Vol rate/Area] mL/min/{1.73_m2} Normal >60 [facility] Comment on above: Order Comment: No: D o not add to previous draw Performed By: #### 0 0071, 54487 #### [facility] [address] [place] [address], [place] GFR/1.73 sq M.predicted among non-blacks MDRD (S/P/Bld) [Vol rate/Area] mL/min/{1.73_m2} Normal >60 [facility] Comment on above: Order Comment: No: D o not add to previous draw Performed By: #### 0 0071, 42850 #### [facility] [address] [place] [address], [place] Glucose [Mass/Vol] 53 mg/dL Low 70-100 [facility] Comment on above: Order Comment: No: D o not add to previous draw Performed By: #### 0 0071, 47863 #### [facility] [address] [place] [address], [facility] Potassium [Moles/Vol] 4.3 mmol/L Normal 3.5-5.1 [facility] Comment on above: Order Comment: No: D o not add to previous draw Performed By: #### 0 0071, 04959 #### [facility] [address] [place] [address], [place] Sodium [Moles/Vol] 134 mmol/L Low 136-145 [facility] Comment on above: Order Comment: No: D o not add to previous draw Performed By: #### 0 0071, 54800 #### [facility] [address] [place] [address], [facility] Urea nitrogen [Mass/Vol] 7 mg/dL Normal 7-25 [facility] Comment on above: Order Comment: No: D o not add to previous draw Performed By: #### 0 0071, 17272 #### [facility] [address] [place] [address], [facility] CBC COMPLETE BLOOD COUNTon 0 - Erythrocyte distribution width (RBC) [Ratio] 13.3 % Normal 11.5-15.0 [facility] Comment on above: Order Comment: No: D o not add to previous draw Performed By: #### 1 0070, 24778 #### [facility] [address] [place] [address], [place] Hematocrit (Bld) [Volume fraction] 42.8 % Normal 36.0-45.0 [facility] Comment on above: Order Comment: No: D o not add to previous draw Performed By: #### 1 69, 22629 #### [facility] [address] [place] [address], [facility] Hemoglobin (Bld) [Mass/Vol] 13.8 g/dL Normal 12.0-15.0 [facility] Comment on above: Order Comment: No: D o not add to previous draw Performed By: #### 1 69, 23447 #### [facility] [address] [place] [address], [facility] IMM PLATELET FRAC 5.9 % Normal 0.8-6.3 [facility] Comment on above: Order Comment: No: D o not add to previous draw Performed By: #### 1 69, #### [facility] [address] [facility] [place] [id number], [facility] MCH (RBC) [Entitic mass] 32.1 pg Normal 27.0-33.0 [facility] Comment on above: Order Comment: No: D o not add to previous draw Performed By: #### 1 69, 95704 #### [facility] [address] [facility] [place] [address], [facility] MCHC (RBC) [Mass/Vol] 32.2 g/dL Normal 32.0-35.0 [facility] Comment on above: Order Comment: No: D o not add to previous draw Performed By: #### 1 69, 45897 #### [facility] [address] [place] [address], [facility] MCV (RBC) [Entitic vol] 99.5 fL High 82.0-98.0 [facility] Comment on above: Order Comment: No: D o not add to previous draw Performed By: #### 1 69, 28295 #### [facility] [address] [place] [id number], [facility] Nucleated RBC/100 WBC (Bld) [Ratio] 0 % Normal 0-0 [facility] Comment on above: Order Comment: No: D o not add to previous draw Performed By: #### 1 69, 21439 #### [facility] [address] [place] [address], [facility] PLAT CNT 97 10*3/uL Low 150-400 [facility] Comment on above: Order Comment: No: D o not add to previous draw Result Comment: Prev iously Resulted 109 Performed By: #### 1 69, 58346 #### [facility] [address] [place] [address], [place] RBC (Bld) [#/Vol] 4.30 10*6/uL Normal 3.80-5.00 [facility] Comment on above: Order Comment: No: D o not add to previous draw Performed By: #### 1 69, 80307 #### [facility] [address] [place] [address], [place] WBC (Bld) [#/Vol] 6.62 10*3/uL Normal 4.00-10.60 [facility] Comment on above: Order Comment: No: D o not add to previous draw Performed By: #### 1 69, 64889 #### [facility] [address] [place] [address], [place] MAGNESIUM BLOODon 10-17-2020 Magnesium [Mass/Vol] 1.9 mg/dL Normal 1.9-2.7 [facility] Comment on above: Order Comment: No: D o not add to previous draw Performed By: #### 0 0071, 40861 #### [facility] [address] [place] [address], [place] POC GLUCOSE LABon 10-17-2020 Glucose [Mass/Vol] 205 mg/dL High 70-100 [facility] Comment on above: Performed By: #### 9 9909, 81234 #### [facility] [address] [place] [address], [place] Glucose [Mass/Vol] 165 mg/dL High 70-100 [facility] Comment on above: Performed By: #### 1 69, 49664 #### [facility] [address] [place] [address], [place] Glucose [Mass/Vol] 190 mg/dL High 70-100 [facility] Comment on above: Performed By: #### 1 69, 34859 #### [facility] [address] [place] [address], [place] Glucose [Mass/Vol] 228 mg/dL High 70-100 [facility] Comment on above: Performed By: #### 1 69, 56820 #### [facility] [address] [place] [address], [place] Glucose [Mass/Vol] 162 mg/dL High 70-100 [facility] Comment on above: Performed By: #### 1 69, 78852 #### [facility] [address] [place] [address], [place] Glucose [Mass/Vol] 66 mg/dL Low 70-100 [facility] Comment on above: Performed By: #### 9 09, 63763 #### [facility] [address] [facility] [place] [address], [facility] *AFB CULTUREon 10-16-2020 *AFB CULTURE Clinical Report: (D) Specimen/Source: FLUID/PARACENTESIS FLUID Collected: 10/16/2020 13:15 Status: Final Last Updated: 12/30/2020 07:37 (1) Paracentesis Fluid AFB (Final) No Acid Fast Bacilli Seen CULT RES (Final) No growth after 42 days of incubation Normal [facility] Comment on above: Order Comment: No: D o not add to previous draw Performed By: #### 1 69, 96600 #### [facility] [address] [facility] [place] [address], [facility] *ANAEROBIC CULTUREon 021 *ANAEROBIC CULTURE Clinical Report: (D) Specimen/Source: FLUID/PARACENTESIS FLUID Collected: 10/16/2020 13:15 Status: Final Last Updated: 10/21/2020 09:04 (1) Paracentesis FLuid No: Do not add to previous draw CULT RES (Final) No Anaerobes Isolated 5 Days Normal [facility] Comment on above: Order Comment: Parac entesis FLuidNo: Do not add to previous draw Performed By: #### 9 9909, 07310 #### [facility] [address] [facility]. [address] *BODY FLUID CULTUREon 2020 *BODY FLUID CULTURE Clinical Report: (D) Specimen/Source: FLUID/PARACENTESIS FLUID Collected: 10/16/2020 13:15 Status: Final Last Updated: 10/21/2020 08:49 (1) No: Do not add to previous draw GRAM (Final) Polys Present No Bacteria Seen CYTOSPUN (Final) This Gram Stain was done on a cytocentrifuged specimen CULT RES (Final) No Growth Day 5 Normal [facility] Comment on above: Order Comment: No: D o not add to previous draw Performed By: #### 9 9909, 13448 #### [facility] [address] [facility] [place] [address], [facility] ALBUMIN FLUID MISCon 021 Albumin [Mass/Vol] g/dL Normal [facility] Comment on above: Result Comment: The reference range and other method performance specifications have not been established for this test in fluids. the test result should be integrated into the clinical context for interpretation. Performed By: #### 1 0070, 73644 #### [facility] [address] [place] [address], [facility] BASIC METABOLIC PANELon 09-29 Calcium [Mass/Vol] 8.0 mg/dL Low 8.6-10.3 [facility] Comment on above: Order Comment: No: D o not add to previous draw Performed By: #### 9 9909, 85122 #### [facility] [address] [place] [address], [place] Chloride [Moles/Vol] 106 mmol/L Normal 98-107 [facility] Comment on above: Order Comment: No: D o not add to previous draw Performed By: #### 9 9908, 70651 #### [facility] [address] [place] [address], [place] CO2 [Moles/Vol] 22 mmol/L Normal 21-31 [facility] Comment on above: Order Comment: No: D o not add to previous draw Performed By: #### 9 9908, 01540 #### [facility] [address] [place] [address], [place] Creatinine [Mass/Vol] 0.40 mg/dL Low 0.60-1.20 [facility] Comment on above: Order Comment: No: D o not add to previous draw Performed By: #### 9 9908, 38227 #### [facility] [address] [place] [address], [place] GFR/1.73 sq M.predicted among blacks MDRD (S/P/Bld) [Vol rate/Area] mL/min/{1.73_m2} Normal >60 [facility] Comment on above: Order Comment: No: D o not add to previous draw Performed By: #### 9 9908, 40481 #### [facility] [address] [place] [address], [place] GFR/1.73 sq M.predicted among non-blacks MDRD (S/P/Bld) [Vol rate/Area] mL/min/{1.73_m2} Normal >60 [facility] Comment on above: Order Comment: No: D o not add to previous draw Performed By: #### 9 9908, 16788 #### [facility] [address] [place] [address], [place] Glucose [Mass/Vol] 76 mg/dL Normal 70-100 [facility] Comment on above: Order Comment: No: D o not add to previous draw Performed By: #### 9 9908, 83831 #### [facility] [address] Potassium [Moles/Vol] 4.0 mmol/L Normal 3.5-5.1 [facility] Comment on above: Order Comment: No: D o not add to previous draw Performed By: #### 9 9908, 86187 #### [facility] [address] [facility] [address] Sodium [Moles/Vol] 134 mmol/L Low 136-145 [facility] Comment on above: Order Comment: No: D o not add to previous draw Performed By: #### 9 9908, 45442 #### [facility] [address] [facility]. [address] Urea nitrogen [Mass/Vol] 6 mg/dL Low 7-25 [facility] Comment on above: Order Comment: No: D o not add to previous draw Performed By: #### 9 9908, 14940 #### [facility] [address] [facility]. [address] CBC W/DIFFon 10-16-2020 ABS IMM GRANS 0.0 10*3/uL Normal 0.0-0.2 [facility] Comment on above: Order Comment: No: D o not add to previous draw Performed By: #### 9 9909, 03628 #### [facility] [address] [facility] [place] [address], [facility] ABS NEUTROPHILS 4.3 10*3/uL Normal 1.6-7.6 [facility] Comment on above: Order Comment: No: D o not add to previous draw Performed By: #### 9 9908, 03611 #### [facility] [address] [facility] [place] [address], [facility] Basophils (Bld) [#/Vol] 0.1 10*3/uL Normal 0.0-0.2 [facility] Comment on above: Order Comment: No: D o not add to previous draw Performed By: #### 9 9908, 71146 #### [facility] [address] [place] [address], [facility] Basophils/100 WBC (Bld) 1.0 % Normal 0.0-1.0 [facility] Comment on above: Order Comment: No: D o not add to previous draw Performed By: #### 9 9908, 45923 #### [facility] [address] [place] [address], [facility] Eosinophils (Bld) [#/Vol] 0.2 10*3/uL Normal 0.0-0.5 [facility] Comment on above: Order Comment: No: D o not add to previous draw Performed By: #### 9 9908, 85208 #### [facility] [address] [place] [address], [facility] Eosinophils/100 WBC (Bld) 2.7 % Normal 0.0-6.0 [facility] Comment on above: Order Comment: No: D o not add to previous draw Performed By: #### 9 9908, 93486 #### [facility] [address] [place] [address], [facility] Erythrocyte distribution width (RBC) [Ratio] 13.4 % Normal 11.5-15.0 [facility] Comment on above: Order Comment: No: D o not add to previous draw Performed By: #### 9 9908, 33143 #### [facility] [address] [place] [address], [place] Hematocrit (Bld) [Volume fraction] 43.6 % Normal 36.0-45.0 [facility] Comment on above: Order Comment: No: D o not add to previous draw Performed By: #### 9 9908, 40828 #### [facility] [address] [place] [address], [place] Hemoglobin (Bld) [Mass/Vol] 14.4 g/dL Normal 12.0-15.0 [facility] Comment on above: Order Comment: No: D o not add to previous draw Performed By: #### 9 9908, 77081 #### [facility] [address] [place] [id number], [facility] IMM PLATELET FRAC 5.7 % Normal 0.8-6.3 [facility] Comment on above: Order Comment: No: D o not add to previous draw Performed By: #### 9 9908, 23110 #### [facility] [address] [place] [address], [facility] IMMATURE GRANS 0.4 % Normal 0.0-1.0 [facility] Comment on above: Order Comment: No: D o not add to previous draw Performed By: #### 9 9908, 59548 #### [facility] [address] [place] [id number], [facility] Lymphocytes (Bld) [#/Vol] 1.1 10*3/uL Low 1.2-4.0 [facility] Comment on above: Order Comment: No: D o not add to previous draw Performed By: #### 9 9908, 26264 #### [facility] [address] [facility] [place] [address], [facility] Lymphocytes/100 WBC (Bld) 16.6 % Low 20.0-45.0 [facility] Comment on above: Order Comment: No: D o not add to previous draw Performed By: #### 9 9908, 86969 #### [facility] [address] [place] [id number], [facility] MCH (RBC) [Entitic mass] 32.6 pg Normal 27.0-33.0 [facility] Comment on above: Order Comment: No: D o not add to previous draw Performed By: #### 9 9908, 40974 #### [facility] [address] [place] [address], [facility] MCHC (RBC) [Mass/Vol] 33.0 g/dL Normal 32.0-35.0 [facility] Comment on above: Order Comment: No: D o not add to previous draw Performed By: #### 9 9908, 26029 #### [facility] [address] [facility] [place] [address], [facility] MCV (RBC) [Entitic vol] 98.6 fL High 82.0-98.0 [facility] Comment on above: Order Comment: No: D o not add to previous draw Performed By: #### 9 9908, 16480 #### [facility] [address] [place] [address], [facility] Monocytes (Bld) [#/Vol] 0.9 10*3/uL Normal 0.1-1.0 [facility] Comment on above: Order Comment: No: D o not add to previous draw Performed By: #### 9 9908, 68062 #### [facility] [address] [facility]. [address] MONOS 14.1 % High 5.0-12.0 [facility] Comment on above: Order Comment: No: D o not add to previous draw Performed By: #### 9 9908, 87359 #### [facility] [address] [facility] [place] [address], [facility] Neutrophils/100 WBC (Bld) 65.2 % Normal 40.0-72.0 [facility] Comment on above: Order Comment: No: D o not add to previous draw Performed By: #### 9 9908, 30065 #### [facility] [address] [facility] [place] [address], [facility] Nucleated RBC/100 WBC (Bld) [Ratio] 0 % Normal 0-0 [facility] Comment on above: Order Comment: No: D o not add to previous draw Performed By: #### 9 9908, 87019 #### [facility] [address] [facility] [place] [address], [facility] PLAT CNT 109 10*3/uL Low 150-400 [facility] Comment on above: Order Comment: No: D o not add to previous draw Performed By: #### 9 9909, 07287 #### [facility] [address] [place] [address], [facility] RBC (Bld) [#/Vol] 4.42 10*6/uL Normal 3.80-5.00 [facility] Comment on above: Order Comment: No: D o not add to previous draw Performed By: #### 9 9909, 60789 #### [facility] [address] [place] [address], [facility] WBC (Bld) [#/Vol] 6.67 10*3/uL Normal 4.00-10.60 [facility] Comment on above: Order Comment: No: D o not add to previous draw Performed By: #### 9 9909, 67515 #### [facility] [address] [facility] [place] [address], [facility] CT ABDOMEN AND PELVIS W IV C [facility] 10-16-2020 CT ABDOMEN AND PELVIS W IV CONTRAST [facility] Department of Radiology [address] [place] [id number] Patient Name: TERESA LYLE : 1960 Sex: F Age: Race: NA Pt. Location: [facility] Patient Status: E Ordered Date: 10/15/2020 8:45:00 PM Completed Date: 10/15/2020 10:01 PM Requesting Provider: OPAL MOSES Attending Provider: JAISON JOHNS Report Copy To: Signs & Symptoms: Abdominal Pain(specify) History: See Comments Comments: Obstruction Exam: CT ABDOMEN AND PELVIS W IV CONTRAST CT ABDOMEN AND PELVIS W IV CONTRAST 10/15/2020 10:01 PM CLINICAL INDICATION: Abdominal Pain(specify) TECHNOLOGIST COMMENTS: abdomen pain, constipation, and painful urination for one month QUESTION FOR THE RADIOLOGIST: Obstruction PROTOCOL: Axial CT images of the abdomen/pelvis were obtained with IV contrast. CONTRAST: Contrast: OMNIPAQUE 350 (LOCM), 100 milliliter, Intravenous TECHNIQUE: Multiple detector CT axial slices of the abdomen and pelvis were obtained with IV contrast. Multiplanar reformats were performed and viewed on a separate workstation and reviewed to further define anatomy and possible pathology. All CT scans at this facility use dose modulation, iterative reconstruction, and/or weight based dosing when appropriate to reduce radiation dose to as low as reasonably achievable COMPARISON: None. FINDINGS: Lung bases show no acute findings No free air Large amount of free fluid throughout the abdomen and pelvis and extending through a ventral hernia into the subcutaneous tissues. The liver is cirrhotic and nodular and hypoplastic. Clean pancreas adrenal glands and kidneys show no acute findings Uterus and adnexa unremarkable No evidence for small bowel obstruction IMPRESSION: 1. No acute findings 2. Extensive ascites and evidence for cirrhotic liver as well as a large ventral hernia contains ascites. It's possible that this is symptomatic and should be correlated clinically. The fluid within the hernia measures as much as 12 cm diameter. Electronically signed: Duran Archibald. Transcribed by: [email or web address], User Resident: Electronically Signed by: DURAN ARCHIBALD @ 10/15/2020 10:16 PM Normal [facility] Comment on above: Order Comment: Obstr uction FLUID CELL COUNTon 1 Lymphocytes/100 WBC (Bld) 19 % Normal [facility] Comment on above: Order Comment: Parac entesis FLuidNo: Do not add to previous draw Performed By: #### 9 9909, 56460 #### [facility] [address] [place] [address], [facility] MESOTHELIAL 65 % Normal [facility] Comment on above: Order Comment: Parac entesis FLuidNo: Do not add to previous draw Performed By: #### 9 9908, 70325 #### [facility] [address] [place] [address], [place] OTHER F1 Diff done by cytospin Normal [facility] Comment on above: Order Comment: Parac entesis FLuidNo: Do not add to previous draw Performed By: #### 9 9908, 97045 #### [facility] [address] [place] [address], [place] OTHER F3 Checked by Berta Urbina M.D. Normal [facility] Comment on above: Order Comment: Parac entesis FLuidNo: Do not add to previous draw Result Comment: Resu lt changed by JIMENA on 10/17/2020 10:09. The previous value was Preliminary report; verified report to follow. Performed By: #### 9 9908, 31726 #### [facility] [address] [place] [address], [place] RBC 2553 RBC/uL Normal [facility] Comment on above: Order Comment: Parac entesis FLuidNo: Do not add to previous draw Performed By: #### 9 9908, 71558 #### [facility] [address] [place] [address], [place] SEGS 16 % Normal [facility] Comment on above: Order Comment: Parac entesis FLuidNo: Do not add to previous draw Performed By: #### 9 9908, 43569 #### [facility] [address] [place] [address], [place] SOURCE Paracentesis Normal [facility] Comment on above: Order Comment: Parac entesis FLuidNo: Do not add to previous draw Performed By: #### 9 9908, 14576 #### [facility] [address] [place] [address], [place] TOTAL VOLUME 1000 ml Normal [facility] Comment on above: Order Comment: Parac entesis FLuidNo: Do not add to previous draw Performed By: #### 9 9909, 03362 #### [facility] [address] [place] [address], [facility] WBC 372 WBC/uL Normal [facility] Comment on above: Order Comment: Parac entesis FLuidNo: Do not add to previous draw Result Comment: Some reference interval(s) and other method performance specifications have not been established for analytes on this body fluid. The test result must be integrated into the clinical context for interpretation. Performed By: #### 9 9909, 01424 #### [facility] [address] [place] [id number], [facility] LDH FLUIDon 10-16-2020 LDH 74 Units/L Normal [facility] Comment on above: Order Comment: No: D o not add to previous draw Result Comment: The reference range and other method performance specifications have not been established for this test in fluids. the test result should be integrated into the clinical context for interpretation. Performed By: #### 1 0070, 98379 #### [facility] [address] [place] [address], [facility] LIVER BATTERYon 10-16-2020 Albumin [Mass/Vol] 2.4 g/dL Low 3.5-5.7 [facility] Comment on above: Order Comment: No: D o not add to previous draw Performed By: #### 9 99, 62920 #### [facility] [address] [place] [address], [facility] ALKALINE PHOSPH 160 IU/L High 34-104 [facility] Comment on above: Order Comment: No: D o not add to previous draw Performed By: #### 9 9909, 01942 #### [facility] [address] [place] [id number], [facility] ALT [Catalytic activity/Vol] 10 U/L Normal 7-52 [facility] Comment on above: Order Comment: No: D o not add to previous draw Performed By: #### 9 99, 50586 #### [facility] [address] [place] [address], [facility] AST [Catalytic activity/Vol] 25 U/L Normal 13-39 [facility] Comment on above: Order Comment: No: D o not add to previous draw Performed By: #### 9 99, 73112 #### [facility] [address] [place] [address], [place] Bilirubin [Mass/Vol] 1.0 mg/dL Normal 0.3-1.0 [facility] Comment on above: Order Comment: No: D o not add to previous draw Performed By: #### 9 [id number], 08520 #### [facility] [address] [place] [address], [facility] Bilirubin.direct [Mass/Vol] 0.4 mg/dL High 0.0-0.2 [facility] Comment on above: Order Comment: No: D o not add to previous draw Performed By: #### 9 9908, 18527 #### [facility] [address] [place] [address], [facility] Protein [Mass/Vol] 5.8 g/dL Low 6.0-8.3 [facility] Comment on above: Order Comment: No: D o not add to previous draw Performed By: #### 9 9909, 79104 #### [facility] [address] [place] [address], [place] MAGNESIUM BLOODon 10-16-2020 Magnesium [Mass/Vol] 1.6 mg/dL Low 1.9-2.7 [facility] Comment on above: Order Comment: No: D o not add to previous draw Performed By: #### 9 9908, 49738 #### [facility] [address] [place] [address], [place] PHOSPHORUS BLOODon Phosphate [Mass/Vol] 3.9 mg/dL Normal 2.5-5.0 [facility] Comment on above: Order Comment: No: D o not add to previous draw Performed By: #### 9 9908, 16957 #### [facility] [address] [place] [address], [place] POC GLUCOSE LABon 10-16-2020 Glucose [Mass/Vol] 268 mg/dL High 70-100 [facility] Comment on above: Performed By: #### 1 69, 38880 #### [facility] [address] [place] [address], [place] Glucose [Mass/Vol] 142 mg/dL High 70-100 [facility] Comment on above: Performed By: #### 9 9908, 01170 #### [facility] [address] [place] [address], [place] Glucose [Mass/Vol] 91 mg/dL Normal 70-100 [facility] Comment on above: Performed By: #### 1 69, 63771 #### [facility] [address] [place] [address], [place] Glucose [Mass/Vol] 77 mg/dL Normal 70-100 [facility] Comment on above: Order Comment: No: D o not add to previous draw Performed By: #### 1 69, 47571 #### [facility] [address] [place] [address], [place] Glucose [Mass/Vol] 74 mg/dL Normal 70-100 [facility] Comment on above: Performed By: #### 1 69, 60966 #### [facility] [address] [place] [address], [place] T PROT FLUIDon 10-16-2020 Protein [Mass/Vol] g/dL Normal [facility] Comment on above: Result Comment: The reference range and other method performance specifications have not been established for this test in fluids. the test result should be integrated into the clinical context for interpretation. Performed By: #### 1 69, 43290 #### [facility] [address] [place] [address], [place] US PARACENTESISon 10-16-2020 US PARACENTESIS [facility] Department of Radiology [address] [place] [address] Patient Name: TERESA LYLE : 1960 Sex: F Age: Race: NA Pt. Location: [id number] Patient Status: I Ordered Date: 10/16/2020 11:45:00 AM Completed Date: 10/16/2020 02:04 PM Requesting Provider: MATT GIBBONS Attending Provider: ADALBERTO VOGEL Report Copy To: Signs & Symptoms: Abnormal Labs History: See Comments Comments: Please drain: diagnostic reasons Exam: US PARACENTESIS US PARACENTESIS 10/16/2020 2:04 PM CLINICAL INDICATIONS: Abnormal Labs TECHNOLOGIST COMMENTS: QUESTION FOR THE RADIOLOGIST: Please drain: diagnostic reasons PROTOCOL: COMPARISON: Abdomen and pelvis CT from the day before. FINDINGS: Ultrasound examination of the abdomen revealed the presence of small to moderate amount of ascites in all quadrants with adjacent peristalsing bowel loops visualized and moderately distended urinary bladder in the pelvis. The procedure was explained in details to the patient and informed consent was obtained. The skin was prepped in sterile fashion. 1% lidocaine was used for local anesthesia. Access into the ascitic fluid from right lower abdomen approach was achieved and 1.4 L of clear yellowish straw color fluid was obtained using vacuum bottles. Post procedure adequate hemostasis was achieved by manual compression. Patient tolerated the procedure well. IMPRESSION: Successful ultrasound-guided paracentesis without complications Electronically signed: Ike Rodriguez Transcribed by: [id number], User Resident: Electronically Signed by: IKE MARTINObey @ 10/16/2020 02:24 PM Normal [facility] Comment on above: Order Comment: No: D o not add to previous draw APTTon 10-15-2020 aPTT Coag (Bld) [Time] 40.4 s High 25.0-35.0 [facility] Comment on above: Result Comment: ALL RESULTS MUST BE INTERPRETED WITH RESPECT TO BLOOD DRAWING ARTIFACT OR DILUTION ERROR OF ANTICOAGULANT AT THE TIME OF SAMPLING. THE APTT SHOULD NOT BE USED TO MONITOR UNFRACTIONATED HEPARIN THERAPY, THIS LABORATORY NO LONGER HAS AN ESTABLISHED THERAPEUTIC RANGE BASED ON THE APTT. IT IS RECOMMENDED THAT THE UFH - HEPARIN ASSAY (ANTI-XA ACTIVITY) BE USED FOR THIS PURPOSE. Performed By: #### 1 0070, 34690 #### [facility] [address] [place] [address], [facility] BASIC METABOLIC PANELon 09-29 Calcium [Mass/Vol] 8.3 mg/dL Low 8.6-10.3 [facility] Comment on above: Performed By: #### 9 9909, 71088 #### [facility] [address] [place] [address], [facility] Chloride [Moles/Vol] 100 mmol/L Normal 98-107 [facility] Comment on above: Performed By: #### 9 9909, 71166 #### [facility] [address] [place] [id number], [facility] CO2 [Moles/Vol] 24 mmol/L Normal 21-31 [facility] Comment on above: Performed By: #### 9 9909, 34159 #### [facility] [address] [place] [id number], [facility] Creatinine [Mass/Vol] 0.47 mg/dL Low 0.60-1.20 [facility] Comment on above: Performed By: #### 9 9909, 29307 #### [facility] [address] [place] [address], [facility] GFR/1.73 sq M.predicted among blacks MDRD (S/P/Bld) [Vol rate/Area] mL/min/{1.73_m2} Normal >60 [facility] Comment on above: Performed By: #### 9 9908, 17399 #### [facility] [address] [place] [address], [place] GFR/1.73 sq M.predicted among non-blacks MDRD (S/P/Bld) [Vol rate/Area] mL/min/{1.73_m2} Normal >60 [facility] Comment on above: Performed By: #### 9 9908, 61354 #### [facility] [address] [place] [address], [facility] Glucose [Mass/Vol] 164 mg/dL High 70-100 [facility] Comment on above: Performed By: #### 9 9908, 76338 #### [facility] [address] [place] [address], [facility] Potassium [Moles/Vol] 4.1 mmol/L Normal 3.5-5.1 [facility] Comment on above: Performed By: #### 9 9908, 67664 #### [facility] [address] [place] [address], [place] Sodium [Moles/Vol] 129 mmol/L Low 136-145 [facility] Comment on above: Performed By: #### 9 9908, 62017 #### [facility] [address] [place] [address], [place] Urea nitrogen [Mass/Vol] 7 mg/dL Normal 7-25 [facility] Comment on above: Performed By: #### 9 9908, 82167 #### [facility] [address] [place] [address], [place] CBC W/DIFFon 10-15-2020 ABS IMM GRANS 0.0 10*3/uL Normal 0.0-0.2 [facility] Comment on above: Performed By: #### 9 9908, 01200 #### [facility] [address] [place] [address], [facility] ABS NEUTROPHILS 5.4 10*3/uL Normal 1.6-7.6 [facility] Comment on above: Performed By: #### 9 9908, 08434 #### [facility] [address] [place] [address], [facility] Basophils (Bld) [#/Vol] 0.1 10*3/uL Normal 0.0-0.2 [facility] Comment on above: Performed By: #### 9 9908, 77524 #### [facility] [address] [place] [address], [facility] Basophils/100 WBC (Bld) 0.8 % Normal 0.0-1.0 [facility] Comment on above: Performed By: #### 9 9908, 95185 #### [facility] [address] [facility] [place] [address], [facility] Eosinophils (Bld) [#/Vol] 0.2 10*3/uL Normal 0.0-0.5 [facility] Comment on above: Performed By: #### 9 9908, 58550 #### [facility] [address] [place] [address], [facility] Eosinophils/100 WBC (Bld) 2.2 % Normal 0.0-6.0 [facility] Comment on above: Performed By: #### 9 9908, 70827 #### [facility] [address] [place] [address], [facility] Erythrocyte distribution width (RBC) [Ratio] 13.2 % Normal 11.5-15.0 [facility] Comment on above: Performed By: #### 9 9908, 53295 #### [facility] [address] [place] [address], [facility] Hematocrit (Bld) [Volume fraction] 43.0 % Normal 36.0-45.0 [facility] Comment on above: Performed By: #### 9 9908, 23035 #### [facility] [address] [facility] [place] [address], [facility] Hemoglobin (Bld) [Mass/Vol] 14.5 g/dL Normal 12.0-15.0 [facility] Comment on above: Performed By: #### 9 9908, 81551 #### [facility] [address] [facility] IMMATURE GRANS 0.3 % Normal 0.0-1.0 [facility] Comment on above: Performed By: #### 9 9908, 62569 #### [facility] [address] [facility]. [address] Lymphocytes (Bld) [#/Vol] 1.1 10*3/uL Low 1.2-4.0 [facility] Comment on above: Performed By: #### 9908, 82258 #### [facility] [address] [facility]. [address] Lymphocytes/100 WBC (Bld) 14.5 % Low 20.0-45.0 [facility] Comment on above: Performed By: #### 9908, 08300 #### [facility] [address] [facility] [place] [address], [facility] MCH (RBC) [Entitic mass] 32.5 pg Normal 27.0-33.0 [facility] Comment on above: Performed By: #### 9 9908, 38045 #### [facility] [address] [facility] [place] [address], [facility] MCHC (RBC) [Mass/Vol] 33.7 g/dL Normal 32.0-35.0 [facility] Comment on above: Performed By: #### 9908, 26210 #### [facility] [address] [facility]. [address] MCV (RBC) [Entitic vol] 96.4 fL Normal 82.0-98.0 [facility] Comment on above: Performed By: #### 9 9908, 80996 #### [facility] [address] [facility] [place] [address], [facility] Monocytes (Bld) [#/Vol] 0.9 10*3/uL Normal 0.1-1.0 [facility] Comment on above: Performed By: #### 9 9908, 76215 #### [facility] [address] [facility]. [address] MONOS 11.3 % Normal 5.0-12.0 [facility] Comment on above: Performed By: #### 9 9908, 21717 #### [facility] [address] [facility]. [address] Neutrophils/100 WBC (Bld) 70.9 % Normal 40.0-72.0 [facility] Comment on above: Performed By: #### 9 9908, 51592 #### [facility] [address] [facility]. [address] Nucleated RBC/100 WBC (Bld) [Ratio] 0 % Normal 0-0 [facility] Comment on above: Performed By: #### 9 9908, 10988 #### [facility] [address] [facility] [place] [address], [facility] PLAT CNT 108 10*3/uL Low 150-400 [facility] Comment on above: Performed By: #### 9 9908, 24877 #### [facility] [address] [facility] [place] [address], [facility] RBC (Bld) [#/Vol] 4.46 10*6/uL Normal 3.80-5.00 [facility] Comment on above: Performed By: #### 9 9908, 80961 #### [facility] [address] [facility] [place] [address], [facility] WBC (Bld) [#/Vol] 7.63 10*3/uL Normal 4.00-10.60 [facility] Comment on above: Performed By: #### 9 9908, 48645 #### [facility] [address] [place] [address], [facility] LACTATE WITH REFLEXon 2020 Lactate [Moles/Vol] 0.9 mmol/L Normal .5-2.2 [facility] Comment on above: Performed By: #### 3 1414 #### [facility] [address] [facility] [place] [address], [facility] LIVER BATTERYon 10-15-2020 Albumin [Mass/Vol] 2.7 g/dL Low 3.5-5.7 [facility] Comment on above: Performed By: #### 9 9908, 55413 #### [facility] [address] [place] [address], [facility] ALKALINE PHOSPH 175 IU/L High 34-104 [facility] Comment on above: Performed By: #### 9 9908, 37502 #### [facility] [address] [facility] [place] [address], [facility] ALT [Catalytic activity/Vol] 12 U/L Normal 7-52 [facility] Comment on above: Performed By: #### 9 9908, 10613 #### [facility] [address] [place] [address], [facility] AST [Catalytic activity/Vol] 28 U/L Normal 13-39 [facility] Comment on above: Performed By: #### 9 9908, 10574 #### [facility] [address] [place] [address], [facility] Bilirubin [Mass/Vol] 1.2 mg/dL High 0.3-1.0 [facility] Comment on above: Performed By: #### 9 9908, 55724 #### [facility] [address] [place] [address], [facility] Bilirubin.direct [Mass/Vol] 0.4 mg/dL High 0.0-0.2 [facility] Comment on above: Performed By: #### 9 9909, 43791 #### [facility] [address] [place] [address], [facility] Protein [Mass/Vol] 6.4 g/dL Normal 6.0-8.3 [facility] Comment on above: Performed By: #### 9 9909, 41561 #### [facility] [address] [facility] [address] POC SARS COV2 ANTIGEN NEGATI VEon 10-15-2020 POC SARS COV2 ANTIGEN NEG Negative Normal NEGATIVE [facility] Comment on above: Result Comment: Nega tive results from patients with symptom onset beyond seven days, should be treated presumptive and confirmation with a molecular assay, if necessary, for patient management, may be performed. Negative results do not rule out SARS-CoV-2 infection and should not be used as the sole basis for treatment or patient management decisions, including infection control decisions. Negative results should be considered in the context of a patient?s recent exposures, history and the presence of clinical signs and symptoms consistent with COVID-19. The [employer] COVID-19 Ag Card is a lateral flow immunoassay intended for the qualitative detection of nucleocapsid protein antigen from SARS-CoV-2 in direct nasal swabs from individuals within the first seven days of symptom onset. Testing is limited to laboratories certified under the Clinical Laboratory Improvement Amendments of 1988 (CLIA), 42 U.S.C. ???263a, that meet the requirements to perform moderate, high or waived complexity tests. This test is authorized for use at the Point of Care (POC), i.e., in patient care settings operating under a CLIA Certificate of Waiver, Certificate of Compliance, or Certificate of Accreditation. Performed By: #### 1 0070, 99708 #### [facility] [address] [place] [address], [facility] PROTHROMBIN TIMEon INR Coag (PPP) [Relative time] 1.13 {INR} Normal 0.91-1.16 [facility] Comment on above: Result Comment: ACCC P RECOMMENDED INR FOR WARFARIN THERAPY -------- ------- CONDITION INR PROPHYLAXIS OF VENOUS THROMBOSIS 2-3 (HIGH-RISK SURGERY) TREATMENT OF VENOUS THROMBOSIS 2-3 TREATMENT OF PULMONARY EMBOLISM 2-3 PREVENTION OF SYSTEMIC EMBOLISM: 2-3 ACUTE MYOCARDIAL INFARCTION TISSUE HEART VALVES VALVULAR HEART DISEASE ATRIAL FIBRILLATION RECURRENT SYSTEMIC EMBOLISM MECHANICAL HEART VALVE 2.5-3.5 FROM: ORAL ANTICOAGULANTS. MECHANISM OF ACTION, CLINICAL EFFECTIVENESS, AND OPTIMAL THERAPEUTIC RANGE. CHEST 1995;108:231S-246S. Performed By: #### 1 69, 48279 #### [facility] [address] [place] [address], [facility] PT Coag (PPP) [Time] 14.6 s Normal 12.3-14.8 [facility] Comment on above: Result Comment: ALL RESULTS MUST BE INTERPRETED WITH RESPECT TO BLOOD DRAWING ARTIFACT OR DILUTION ERROR OF ANTICOAGULANT AT THE TIME OF SAMPLING. Performed By: #### 1 007, 87644 #### [facility] [address] [place] [id number], [facility] TYPE AND SCREENon 10-15-2020 ABO INTERPRETATION A Normal [facility] Comment on above: Performed By: #### 1 69, 10820 #### [facility] [address] [place] [address], [place] RH INTERPRETATION Positive Normal [facility] Comment on above: Performed By: #### 1 007, 30257 #### [facility] [address] [place] [address], [facility] URINALYSIS REFLEXon 10-16-19 21 Appearance (U) CLEAR Normal CLEAR [facility] Comment on above: Order Comment: Crite libby for reflexing a culture was not met. Please call the lab at [phone] within 24 hours of collection time if culture is needed Performed By: #### 3 0965 #### [facility] [address] [place] [address], [place] Bilirubin Ql (U) Negative Normal NEGATIVE [facility] Comment on above: Order Comment: Crite libby for reflexing a culture was not met. Please call the lab at [phone] within 24 hours of collection time if culture is needed Performed By: #### 3 0965 #### [facility] [address] [place] [address], [place] Color (U) YELLOW Normal YELLOW [facility] Comment on above: Order Comment: Crite libby for reflexing a culture was not met. Please call the lab at [phone] within 24 hours of collection time if culture is needed Performed By: #### 3 0965 #### [facility] [address] [address], [place] Glucose Ql (U) Negative Normal NEGATIVE [facility] Comment on above: Order Comment: Crite libby for reflexing a culture was not met. Please call the lab at [phone] within 24 hours of collection time if culture is needed Performed By: #### 3 0965 #### [facility] [address] [place] [address], [place] Hemoglobin Ql (U) Negative Normal NEGATIVE [facility] Comment on above: Order Comment: Crite libby for reflexing a culture was not met. Please call the lab at [phone] within 24 hours of collection time if culture is needed Performed By: #### 3 0965 #### [facility] [address] [place] [address], [place] KETONE Negative Normal NEGATIVE [facility] Comment on above: Order Comment: Crite libby for reflexing a culture was not met. Please call the lab at [phone] within 24 hours of collection time if culture is needed Performed By: #### 3 0965 #### [facility] [address] [place] [address], [place] LEUK MINDA Negative Normal NEGATIVE [facility] Comment on above: Order Comment: Crite libby for reflexing a culture was not met. Please call the lab at [phone] within 24 hours of collection time if culture is needed Performed By: #### 3 0965 #### [facility] [address] [place] [address], [place] MICRO NOT DONE Normal [facility] Comment on above: Order Comment: Crite libby for reflexing a culture was not met. Please call the lab at [phone] within 24 hours of collection time if culture is needed Result Comment: Micr oscopics not performed on urines with negative chemical reactions unless requested in original order Performed By: #### 3 0965 #### [facility] [address] [facility] [place] [address], [place] Nitrite Ql (U) Negative Normal NEGATIVE [facility] Comment on above: Order Comment: Crite libby for reflexing a culture was not met. Please call the lab at [phone] within 24 hours of collection time if culture is needed Performed By: #### 3 0965 #### [facility] [address] [facility] [place] [address], [facility] pH (U) 8.0 [pH] Normal 5.0-8.0 [facility] Comment on above: Order Comment: Crite libby for reflexing a culture was not met. Please call the lab at [phone] within 24 hours of collection time if culture is needed Performed By: #### 3 0965 #### [facility] [address] [place] [address], [place] Protein Ql (U) Negative Normal NEGATIVE [facility] Comment on above: Order Comment: Crite libby for reflexing a culture was not met. Please call the lab at [phone] within 24 hours of collection time if culture is needed Performed By: #### 3 0965 #### [facility] [address] [place] [address], [facility] SPEC GRAV 1.005 Low 1.015-1.02 0 [facility] Comment on above: Order Comment: Crite libby for reflexing a culture was not met. Please call the lab at [phone] within 24 hours of collection time if culture is needed Performed By: #### 3 0965 #### [facility] [address] [place] [address], [facility] AMYLASEon 10-02-2020 Amylase [Catalytic activity/Vol] 34 U/L Normal 31-110 [facility] Comment on above: Performed By: #### C BC #### [facility] [address] [place] [address] Edy Mari CBC AUTO DIFFon 10-02-2020 BASO # 0.1 103/ul Normal 0.0-0.1 [facility] Comment on above: Performed By: #### C BC #### [facility] [address] [place] [address] Edy Mari Basophils/100 WBC (Bld) 0.5 % Normal 0.2-2.0 [facility] Comment on above: Performed By: #### C BC #### [facility] [address] [place] [address] Edy Mari EO # 0.1 103/ul Normal 0.0-0.7 [facility] Comment on above: Performed By: #### C BC #### [facility] [address] [place] [address] Edy Mari Eosinophils/100 WBC (Bld) 0.6 % Critically low 0.9-7.0 [facility] Comment on above: Performed By: #### C BC #### [facility] [address] [place] [address] Edy Mari Erythrocyte distribution width (RBC) [Ratio] 13.7 % Normal 11.0-15.0 [facility] Comment on above: Performed By: #### C BC #### [facility] [address] [place] [address] Edy Mari Hematocrit (Bld) [Volume fraction] 48.5 % Critically high 36.0-48.0 [facility] Comment on above: Performed By: #### C BC #### [facility] [address] [place] [address] Edy Guerra Hemoglobin (Bld) [Mass/Vol] 16.1 g/dL Critically high 12.0-16.0 [facility] Comment on above: Performed By: #### C BC #### [facility] [address] [place] [address] Edy Guerra IG # 0.03 10e3/ul Normal 0.00-0.03 [facility] Comment on above: Performed By: #### C BC #### [facility] [address] [place] [address] Edy Guerra IG % 0.3 % Normal 0.0-0.5 [facility] Comment on above: Performed By: #### C BC #### [facility] [address] [place] [address] Edy Guerra LYMPH # 0.9 103/ul Critically low 1.2-3.8 [facility] Comment on above: Performed By: #### C BC #### [facility] [address] [place] [address] Edy Guerra Lymphocytes/100 WBC (Bld) 9.2 % Critically low 20.5-60.0 [facility] Comment on above: Performed By: #### C BC #### [facility] [address] [place] [address] Edy Guerra MANUAL DIFF REQ NO Normal [facility] Comment on above: Performed By: #### C BC #### [facility] [address] [place], [place] [id number] Edy Guerra MCH (RBC) [Entitic mass] 32.3 pg Normal 26.7-34.0 [facility] Comment on above: Performed By: #### C BC #### [facility] [address] [place] [address] Edy Guerra MCHC (RBC) [Mass/Vol] 33.2 g/dL Normal 29.9-35.2 [facility] Comment on above: Performed By: #### C BC #### [facility] [address] [id number] Edy Guerra MCV (RBC) [Entitic vol] 97.4 fL Normal 81.0-99.0 [facility] Comment on above: Performed By: #### C BC #### [facility] [address] [id number] Edy Guerra MONO # 0.8 103/ul Normal 0.3-0.8 [facility] Comment on above: Performed By: #### C BC #### [facility] [address] [id number] Edy Guerra Monocytes/100 WBC (Bld) 8.1 % Normal 1.7-12.0 [facility] Comment on above: Performed By: #### C BC #### [facility] [address] [id number] Edy Salmeronen NEUT # 8.0 103/ul Critically high 1.4-6.5 [facility] Comment on above: Performed By: #### C BC #### [facility] [address] [place], [place] [phone] Edy Guerra Neutrophils/100 WBC (Bld) 81.3 % Critically high 43.0-75.0 [facility] Comment on above: Performed By: #### C BC #### [facility] [address] [id number] Edy Guerra Platelet mean volume (Bld) [Entitic vol] 12.7 fL Normal 9.5-13.5 [facility] Comment on above: Performed By: #### C BC #### [facility] [address] [id number] Edyjax Salmeronen PLT 85 103/ul Critically low 150-450 [facility] Comment on above: Performed By: #### C BC #### [facility] [address] [id number] Edy Mari RBC 4.98 106/ul Normal 4.20-5.40 [facility] Comment on above: Performed By: #### C BC #### [facility] [address], [place] [address] Edy Guerra WBC 9.8 103/ul Normal 4.0-11.0 [facility] Comment on above: Performed By: #### C BC #### [facility] [address], [place] [address] ABD/PELV W CONon 10-03-19 CT ABD/PELV W CON EXAMINATION: CT ABD/ PELV W CON HISTORY: UNSPECIFIED ABDOMINAL PAIN ; new onset pain and nausea; umbilical hernia for 5 months COMPARISON: CT abdomen pelvis 09/04/2020 TECHNIQUE: CT images were created with IV contrast. Axial, Coronal, and Sagittal images. Dose reduction techniques were achieved by using automated exposure control and/or adjustment of mA and/or kV according to patient size and/or use of iterative reconstruction technique. FINDINGS: LUNG BASES: No visible pulmonary or pleural disease. LIVER: Small liver with marked nodularity consistent with cirrhosis. Moderate amount of free fluid surrounding the liver and scattered throughout the abdomen and pelvis consistent with ascites. BILIARY: Cholecystectomy. PANCREAS: No lesion, fluid collection, ductal dilatation, or atrophy. SPLEEN: Mild splenomegaly, 12.7 cm. Collateral circulation within the upper abdomen and anterior abdomen along with enlarged paraesophageal vessels. ADRENALS: No mass or enlargement. KIDNEYS: No mass, obstruction, or calcification. BOWEL/MESENTERY: Abnormally distended air and fluid-filled small bowel, 3.2 cm in diameter. Mild circumferential wall thickening of the proximal colon. Diverticulosis of the distal colon without acute inflammatory changes. The colon is empty of stool. Large periumbilical hernia containing a loop of small bowel with abnormal dilation of the bowel proximal to the hernia sac and collapsed small bowel distal to the hernia sac. AORTA/VASCULAR: Marked atherosclerotic disease of the aorta and major branches. No aneurysm. RETROPERITONEUM: Mild lymphadenopathy. LYMPH NODES: No pelvic lymphadenopathy. URINARY BLADDER: No visible focal wall thickening, lesion, or calculus. PELVIC ORGANS: Small mass within the right fundal region, likely a leiomyoma. ABDOMINAL WALL: Large periumbilical hernia, 12.1 cm in diameter with wide neck. Hernia sac contains a loop of small bowel which shows mild wall thickening. Large amount of fluid within the hernia sac. BONES: No bony lesion or fracture. OTHER: Negative. IMPRESSION: 1. Distal small bowel obstruction secondary to a loop of small bowel within the periumbilical large hernia sac; bowel is obstructed proximal to this point. 2. Diverticulosis of the mid and distal colon without acute inflammatory changes. 3. Cirrhosis: Small nodular appearance of liver, moderate-large amount of ascites, mild splenomegaly, and collateral circulation well demonstrated within the upper abdomen. Electronically authenticated by: JAMES ALEX Date: 2020-10-02 15:36 Normal [facility] LACTATE/LACTIC ACIDon 2020 Lactate [Moles/Vol] 1.7 mmol/L Normal 0.7-2.0 [facility] Comment on above: Performed By: #### C BC #### [facility] [address] [place], [place] [phone] Edy Mari LIPASEon 10-02-2020 Lipase [Catalytic activity/Vol] 56.0 U/L Normal 23.0-300.0 [facility] Comment on above: Performed By: #### C BC #### [facility] [address] [place], [place] [phone] Edy Mari LIVER PROFILEon 10-02-2020 Albumin [Mass/Vol] 2.6 g/dL Critically low 3.5-5.0 [facility] Comment on above: Performed By: #### C BC #### [facility] [address] [place], [place] [phone] Edy Mari Albumin/Globulin [Mass ratio] 0.6 {ratio} Normal [facility] Comment on above: Performed By: #### C BC #### [facility] [address] [place], [place] [phone] Edy Mari ALP [Catalytic activity/Vol] 203 U/L Critically high 38-126 [facility] Comment on above: Performed By: #### C BC #### [facility] [address] [place], [place] [phone] Edy Mari ALT [Catalytic activity/Vol] 21 U/L Normal 9-52 [facility] Comment on above: Performed By: #### C BC #### [facility] [address] [place] [employer] [place] [address] Edy Mari AST [Catalytic activity/Vol] 43 U/L Critically high 14-36 [facility] Comment on above: Performed By: #### C BC #### [facility] [address] [place] [address] Edy Mari BILI, CONJUGATED 0.5 mg/dL Critically high 0.0-0.3 [facility] Comment on above: Performed By: #### C BC #### [facility] [address] [place], [place] [phone] Edy Mari Bilirubin [Mass/Vol] 1.5 mg/dL Critically high 0.2-1.3 [facility] Comment on above: Performed By: #### C BC #### [facility] [address] [place], [place] [phone] Edy Mari Globulin (S) [Mass/Vol] 4.7 g/dL Normal [facility] Comment on above: Performed By: #### C BC #### [facility] [address] [place], [place] [address] Edy Mari Protein [Mass/Vol] 7.3 g/dL Normal 6.1-8.2 [facility] Comment on above: Performed By: #### C BC #### [facility] [address] [place], [place] [address] Edy Mari PROF CHEM 8 (BAS METB)on Anion gap [Moles/Vol] 15.3 mmol/L Normal [facility] Comment on above: Performed By: #### C BC #### [facility] [address] [place], [place] [address] Edy Mari Calcium [Mass/Vol] 8.5 mg/dL Normal 8.4-10.2 [facility] Comment on above: Performed By: #### C BC #### [facility] [address] [place], [place] [address] Edy Mari Chloride [Moles/Vol] 100 mmol/L Normal 98-107 [facility] Comment on above: Performed By: #### C BC #### [facility] [address] [place], [place] [address] Edy Mari CO2 [Moles/Vol] 23.5 mmol/L Normal 22.0-30.0 [facility] Comment on above: Performed By: #### C BC #### [facility] [address], [place] [address] Edy Mari Creatinine [Mass/Vol] 0.74 mg/dL Normal 0.52-1.04 [facility] Comment on above: Performed By: #### C BC #### [facility] [address], [place] [address] Edy Mari EGFR-AF NIGERIAN >60 Normal >=60 [facility] Comment on above: Performed By: #### C BC #### [facility] [address] [phone] Edy Mari EGFR-NON AF NIGERIAN >60 Normal >=60 [facility] Comment on above: Performed By: #### C BC #### [facility] [address] [place], [place] [phone] Edy Mari Glucose [Mass/Vol] 245 mg/dL Critically high 74-106 [facility] Comment on above: Performed By: #### C BC #### [facility] [address], [place] [address] Edy Mari Potassium [Moles/Vol] 4.8 mmol/L Normal 3.4-5.0 [facility] Comment on above: Performed By: #### C BC #### [facility] [address] [place], [place] [address] Edy Mari Sodium [Moles/Vol] 134 mmol/L Critically low 137-145 [facility] Comment on above: Performed By: #### C BC #### [facility] [address] [place] [address] Edy Mari Urea nitrogen [Mass/Vol] 13.0 mg/dL Normal 7.0-17.0 [facility] Comment on above: Performed By: #### C BC #### [facility] [address], [place] [address] Edy Mari Urea nitrogen/Creatinine [Mass ratio] 17.6 mg/mg Normal [facility] Comment on above: Performed By: #### C BC #### [facility] [address] [place] [address] Edy Guerra PROTIMEon 10-02-2020 INR Coag (PPP) [Relative time] 1.14 {INR} Normal [facility] Comment on above: Performed By: #### P TT, PT #### [facility] [address] [place] [address] Edy Guerra INR GUIDELINES SEE BELOW Normal [facility] Comment on above: Result Comment: GABY RED INR: 2.0 - 3.0 CONDITIONS NOT LISTED BELOW 2.5 - 3.5 FOR PROSTHETIC HEART VALVE REPLACEMENT 2.5 - 3.5 RECURRENT THROMBOSIS Performed By: #### P TT, PT #### [facility] [address] [place] [address] Edy Guerra PT Coag (PPP) [Time] 12.2 s Critically high 9.0-11.6 [facility] Comment on above: Performed By: #### P TT, PT #### [facility] [address] [place] [address] Edy Guerra PTTon 10-02-2020 aPTT Coag (Bld) [Time] 36.0 s Normal 22.3-36.2 [facility] Comment on above: Performed By: #### P TT, PT #### [facility] [address] [place] [address] Edy Mari CBC AUTO DIFFon 09-04-2020 BASO # 0.0 103/ul Normal 0.0-0.1 [facility] Comment on above: Performed By: #### C BC #### [facility] [address] [place] [address] Edy Guerra Basophils/100 WBC (Bld) 0.5 % Normal 0.2-2.0 [facility] Comment on above: Performed By: #### C BC #### [facility] [address] [place] [address] Edy Mari EO # 0.2 103/ul Normal 0.0-0.7 [facility] Comment on above: Performed By: #### C BC #### [facility] [address] [phone] Edy Mari Eosinophils/100 WBC (Bld) 2.0 % Normal 0.9-7.0 [facility] Comment on above: Performed By: #### C BC #### [facility] [address] [place] [address] Edy Mari Erythrocyte distribution width (RBC) [Ratio] 14.1 % Normal 11.0-15.0 [facility] Comment on above: Performed By: #### C BC #### [facility] [address] [place] [address] Edy Mari Hematocrit (Bld) [Volume fraction] 42.7 % Normal 36.0-48.0 [facility] Comment on above: Performed By: #### C BC #### [facility] [address] [place] [address] Edy Mari Hemoglobin (Bld) [Mass/Vol] 14.7 g/dL Normal 12.0-16.0 [facility] Comment on above: Performed By: #### C BC #### [facility] [address] [place] [address] Edy Mari IG # 0.02 10e3/ul Normal 0.00-0.03 [facility] Comment on above: Performed By: #### C BC #### [facility] [address] [place] [address] Edy Mari IG % 0.2 % Normal 0.0-0.5 [facility] Comment on above: Performed By: #### C BC #### [facility] [address] [place] [address] Edy Mari LYMPH # 0.9 103/ul Critically low 1.2-3.8 [facility] Comment on above: Performed By: #### C BC #### [facility] [address] [place] [address] Edy Mari Lymphocytes/100 WBC (Bld) 10.9 % Critically low 20.5-60.0 [facility] Comment on above: Performed By: #### C BC #### [facility] [address] [place] [address] Edy Guerra MANUAL DIFF REQ NO Normal [facility] Comment on above: Performed By: #### C BC #### [facility] [address] [address] Edy Guerra MCH (RBC) [Entitic mass] 33.1 pg Normal 26.7-34.0 [facility] Comment on above: Performed By: #### C BC #### [facility] [address] [place] [address] Edy Guerra MCHC (RBC) [Mass/Vol] 34.4 g/dL Normal 29.9-35.2 [facility] Comment on above: Performed By: #### C BC #### [facility] [address] [place] [address] Edy Guerra MCV (RBC) [Entitic vol] 96.2 fL Normal 81.0-99.0 [facility] Comment on above: Performed By: #### C BC #### [facility] [address] [place] [address] Edy Guerra MONO # 0.7 103/ul Normal 0.3-0.8 [facility] Comment on above: Performed By: #### C BC #### [facility] [address] [place] [address] Edy Guerra Monocytes/100 WBC (Bld) 8.1 % Normal 1.7-12.0 [facility] Comment on above: Performed By: #### C BC #### [facility] [address] [place] [address] Edy Guerra NEUT # 6.8 103/ul Critically high 1.4-6.5 [facility] Comment on above: Performed By: #### C BC #### [facility] [address] [place], [place] [phone] Edy Guerra Neutrophils/100 WBC (Bld) 78.3 % Critically high 43.0-75.0 [facility] Comment on above: Performed By: #### C BC #### [facility] [address] [place] [address] Edyjax Guerra Platelet mean volume (Bld) [Entitic vol] 12.1 fL Normal 9.5-13.5 [facility] Comment on above: Performed By: #### C BC #### [facility] [address], [place] [address] Edy Guerra PLT 80 103/ul Critically low 150-450 [facility] Comment on above: Performed By: #### C BC #### [facility] [address], [place] [address] Edy Guerra RBC 4.44 106/ul Normal 4.20-5.40 [facility] Comment on above: Performed By: #### C BC #### [facility] [address], [place] [address] Edy Guerra WBC 8.6 103/ul Normal 4.0-11.0 [facility] Comment on above: Performed By: #### C BC #### [facility] [address], [place] [address] ABD/PELV W CONon 09-05-[address] ABD/PELV W CON EXAMINATION: CT ABD/ PELV W CON HISTORY: Acute left sided abdominal pain with nausea COMPARISON: Small bowel series x-rays 08/07/2019 TECHNIQUE: CT abdomen pelvis multiple axial views after administration of 100 mL Omnipaque 300 IV contrast. Coronal and sagittal reformats. Dose reduction techniques were achieved by using automated exposure control and/or adjustment of mA and/or kV according to patient size and/or use of iterative reconstruction technique. FINDINGS: Large left lower ventral abdominal wall hernia sac containing multiple loops of dilated fluid-filled small bowel, but with a small wall defect of less than 8 mm. Cirrhotic morphology of the liver with moderate right perihepatic ascites. Large intrapelvic ascites. Borderline spleen 12.5 cm craniocaudal length. Portal venous vasculature without filling defect. Moderate gastroesophageal varices and ventral abdominal peritoneal venous collaterals. Pancreas, adrenal glands, kidneys are otherwise unremarkable. Right colonic wall is edematous thickening. Uterus and pelvic structures are unremarkable. Urinary bladder demonstrate mild circumferential wall thickening, correlate with urinalysis for underlying urinary tract inflammation or infection. There are no dilated appendix. No acute bony abnormality. Diffuse atheromatous calcified plaque throughout the visualized intra-abdominal arterial vasculature. IMPRESSION: Large left lower ventral abdominal wall hernia sac containing multiple loops of dilated fluid-filled small bowel, but with a small wall defect of less than 8 mm. Correlate clinically for incarceration or strangulation with probable developing partial mall bowel obstruction. Cirrhotic morphology of the liver with intra-abdominal and pelvic ascites, gastroesophageal varices, and borderline splenomegaly. Additional findings as above. Electronically authenticated by: JENA MELARA Date: 2020-09-04 03:20 Normal [facility] URINE PROFILEon 1 Bilirubin Ql (U) Negative Normal NEGATIVE [facility] Comment on above: Performed By: #### C MP #### [facility] [address] [place] [address] Edy Mari Clarity (U) CLEAR Normal CLEAR [facility] Comment on above: Performed By: #### C MP #### [facility] [address] [place] [address] Edy Mari Color (U) LT. YELLOW Normal YELLOW [facility] Comment on above: Performed By: #### C MP #### [facility] [address] [place] [address] Edy Mari ERUAHD A micrscopic examina tion will be performed if indicated. Normal [facility] Comment on above: Performed By: #### C MP #### [facility] [address] [place] [address] Edy Mari Glucose Ql (U) 250 mg/dl Abnormal NEGATIVE [facility] Comment on above: Performed By: #### C MP #### [facility] [address] [place] [address] Edy Mari Hemoglobin Ql (U) Negative Normal NEGATIVE [facility] Comment on above: Performed By: #### C MP #### [facility] [address] [place] [address] Edy Mari Ketones Ql (U) Negative Normal NEGATIVE [facility] Comment on above: Performed By: #### C MP #### [facility] [address] [place] [address] Edy Mari LEUKOCYTES Negative Normal NEGATIVE [facility] Comment on above: Performed By: #### C MP #### [facility] [address] [place] [address] Edy Guerra Nitrite Ql (U) Negative Normal NEGATIVE [facility] Comment on above: Performed By: #### C MP #### [facility] [address] [place], [place] [address] Edy Guerra pH (U) 6.5 [pH] Normal 5-9 [facility] Comment on above: Performed By: #### C MP #### [facility] [address] [place] [address] Edy Guerra SPEC GRAVITY 1.015 Normal 1.005-<=1. 025 [facility] Comment on above: Performed By: #### C MP #### [facility] [address] [place] [address] Edy Guerra UA PROTEIN Negative Normal NEGATIVE/ TRACE [facility] Comment on above: Performed By: #### C MP #### [facility] [address] [place] [address] Edy Guerra UR MICRO IND NOT INDICATED Normal [facility] Comment on above: Performed By: #### C MP #### [facility] [address] [place] [address] Edy Guerra Urobilinogen Qn (U) 0.2 {Bin'U}/dL Normal 0.2 - 1. 0 [facility] Comment on above: Performed By: #### C MP #### [facility] [address] [place] [address] Edy Guerra LACTATE/LACTIC ACIDon 2020 Lactate [Moles/Vol] 1.2 mmol/L Normal 0.7-2.0 [facility] Comment on above: Performed By: #### L ACT #### [facility] [address] [place], [place] [phone] Edy Guerra PROF 14(COMP METB)on 021 Albumin [Mass/Vol] 2.4 g/dL Critically low 3.5-5.0 [facility] Comment on above: Performed By: #### C BC #### [facility] [address] [place] [address] Edy Mari Albumin/Globulin [Mass ratio] 0.5 {ratio} Normal [facility] Comment on above: Performed By: #### C BC #### [facility] [address], [place] [address] Edy Mari ALP [Catalytic activity/Vol] 211 U/L Critically high 38-126 [facility] Comment on above: Performed By: #### C BC #### [facility] [address], [place] [address] Edy Mari ALT [Catalytic activity/Vol] 28 U/L Normal 9-52 [facility] Comment on above: Performed By: #### C BC #### [facility] [address] [id number] Edy Mari Anion gap [Moles/Vol] 9.8 mmol/L Normal [facility] Comment on above: Performed By: #### C BC #### [facility] [address] [place] [address] Edy Mari AST [Catalytic activity/Vol] 46 U/L Critically high 14-36 [facility] Comment on above: Performed By: #### C BC #### [facility] [address] [place] [id number] Edy Mari Bilirubin [Mass/Vol] 1.1 mg/dL Normal 0.2-1.3 [facility] Comment on above: Performed By: #### C BC #### [facility] [address] [place], [place] [id number] Edy Mari Calcium [Mass/Vol] 8.2 mg/dL Critically low 8.4-10.2 [facility] Comment on above: Performed By: #### C BC #### [facility] [address] [place] [id number] Edy Mari Chloride [Moles/Vol] 100 mmol/L Normal 98-107 [facility] Comment on above: Performed By: #### C BC #### [facility] [address] [place] [address] Edy Mari CO2 [Moles/Vol] 25.7 mmol/L Normal 22.0-30.0 [facility] Comment on above: Performed By: #### C BC #### [facility] [address], [place] [address] Edy Mari Creatinine [Mass/Vol] 0.74 mg/dL Normal 0.52-1.04 [facility] Comment on above: Performed By: #### C BC #### [facility] [address], [place] [address] Edy Mari EGFR-AF NIGERIAN >60 Normal >=60 [facility] Comment on above: Performed By: #### C BC #### [facility] [address], [place] [address] Edy Mari EGFR-NON AF NIGERIAN >60 Normal >=60 [facility] Comment on above: Performed By: #### C BC #### [facility] [address] [place], [place] [phone] Edy Mari Globulin (S) [Mass/Vol] 4.8 g/dL Normal [facility] Comment on above: Performed By: #### C BC #### [facility] [address] [place] [address] Edy Mari Glucose [Mass/Vol] 259 mg/dL Critically high 74-106 [facility] Comment on above: Performed By: #### C BC #### [facility] [address] [place], [place] [phone] Edy Mari Potassium [Moles/Vol] 4.5 mmol/L Normal 3.4-5.0 [facility] Comment on above: Performed By: #### C BC #### [facility] [address] [place] [address] Edy Mari Protein [Mass/Vol] 7.2 g/dL Normal 6.1-8.2 [facility] Comment on above: Performed By: #### C BC #### [facility] [address] [place], [place] [phone] Edy Mari Sodium [Moles/Vol] 131 mmol/L Critically low 137-145 [facility] Comment on above: Performed By: #### C BC #### [facility] [address] [place], [place] [phone] Edy Mari Urea nitrogen [Mass/Vol] 11.0 mg/dL Normal 7.0-17.0 [facility] Comment on above: Performed By: #### C BC #### [facility] [address], [place] [address] Edy Guerra Urea nitrogen/Creatinine [Mass ratio] 14.9 mg/mg Normal [facility] Comment on above: Performed By: #### C BC #### [facility] [address], [place] [address] Edy Guerra Body fluid albumin measureme nt (mass/volume)on 12-20-2017 Albumin (Body fld) [Mass/Vol] 3.3 g/dL 3.2-5.5 [facility] Cholesterol [Mass/volume] in Serum or Plasmaon 12-20-2017 Cholesterol [Mass/Vol] 194 mg/dL 140-200 [facility] Comment on above: Chol less than 200 m g/dl low riskChol 201-239 mg/dl borderline riskChol 240 mg/dl and greater high risk Cholesterol in LDL Calc [Mas s/Vol]on 12-20-2017 Cholesterol in LDL [Mass/Vol] 110 mg/dL 0-100 [facility] Comment on above: LDL ATP III CLASSIFI CATIONLDL less than 100 mg/dL OptimalLDL 100-129 mg/dL Near or above optimalLDL 130-159 mg/dL Borderline highLDL 160-189 mg/dL HighLDL greater than 189 mg/dL Very high Cholesterol in VLDL Calc [Ma ss/Vol]on 12-20-2017 Cholesterol in VLDL [Mass/Vol] 19 mg/dL [facility] Creatinine [Mass/volume] in Urineon 12-20-2017 Creatinine (U) [Mass/Vol] 11.6 mg/dL [facility] Comment on above: No reference range e stablished Creatinine and Glomerular fi ltration rate.predicted panel (S/P/Bld)on 12-20-2017 Creatinine [Mass/Vol] 0.54 mg/dL 0.44-1.03 [facility] Estimated glomerular filtrat ion rate (GFR) non- Americanon 12-20-2017 GFR/1.73 sq M.predicted among non-blacks MDRD (S/P/Bld) [Vol rate/Area] mL/min/{1.73_m2} [facility] Globulin Calc (S) [Mass/Vol] on 12-20-2017 Globulin (S) [Mass/Vol] 4.0 g/dL [facility] - Chemistry and C hemistry - challengeon 12-20-2017 Cholesterol.total/Cho lesterol in HDL [Mass ratio] 3.0 {ratio} <5.0 [facility] GFR/1.73 sq M.predicted among blacks MDRD (S/P/Bld) [Vol rate/Area] mL/min/{1.73_m2} [facility] Comment on above: GFR estimated refere nce range: According to KDOQI guidelines, <60 ml/min/1.73m2 is sufficient to diagnose a patient with chronic kidney disease. No Panel Informationon 12-20 Pharmacy Creatinine Clearance (Chem N/A [facility] Protein [Mass/volume] in Ser um or Plasmaon 12-20-2017 Protein [Mass/Vol] 7.3 g/dL 6.1-7.9 [facility] Serum or plasma alanine grajeda otransferase measurement without P-5'-P (enzymatic activion 12-20-2017 ALT No additional P-5'-P [Catalytic activity/Vol] 27 U/L [facility] Serum or plasma albumin/glob ulin mass ratioon 12-20-2017 Albumin/Globulin [Mass ratio] 0.8 {ratio} [facility] Serum or plasma alkaline jordan sphatase measurement (enzymatic activity/volume)on 12-20-2017 ALP [Catalytic activity/Vol] 185 U/L 32-92 [facility] Serum or plasma aspartate am inotransferase measurement (enzymatic activity/volume)on 12-20-2017 AST [Catalytic activity/Vol] 41 U/L [facility] Serum or plasma calcidiol me asurement (mass/volume)on 12-20-2017 25-hydroxyvitamin D3 [Mass/Vol] 31.3 ng/mL 30-100 [facility] Comment on above: VITAMIN D STATUS 25( [place])VITAMIN D RANGE (ng/mL) Deficient <20 Insufficient 20 to <30Sufficient 30 to 100Reference: Mynor MF,Benson NC, Bola GIRON, et al. Evaluation,treatment, and prevention of vitamin D deficiency; an Endocrine Society clinical practice guideline. JCEM. 2010; 96(7):1911-30. Serum or plasma calcium elis urement (mass/volume)on 12-20-2017 Calcium [Mass/Vol] 8.8 mg/dL 8.2-10.2 [facility] Serum or plasma chloride neo surement (moles/volume)on 12-20-2017 Chloride [Moles/Vol] 103 mmol/L 95-114 [facility] Serum or plasma glucose elis urement (mass/volume)on 12-20-2017 Glucose [Mass/Vol] 172 mg/dL 70-100 [facility] Comment on above: ADA recommended refe rence rangeRandom Glucose Reference Range is dependent on time and content of last meal. Glucose of more than 200 mg/dL in a nonstressed, ambulatory subject supports the diagnosis of Diabetes Mellitus. Serum or plasma high density lipoprotein (HDL) cholesterol measurementon 12-20-2017 Cholesterol in HDL [Mass/Vol] 65 mg/dL 35-85 [facility] Comment on above: HDL CHOL ATP-III CLA SSIFICATION Cardiovascular RiskHDL > or equal to 60 mg/dL LOWHDL < 40 mg/dL HIGH Serum or plasma potassium me asurement (moles/volume)on 12-20-2017 Potassium [Moles/Vol] 4.0 mmol/L 3.5-5.1 [facility] Serum or plasma sodium measu rement (moles/volume)on 12-20-2017 Sodium [Moles/Vol] 137 mmol/L 136-146 [facility] Serum or plasma total biliru bin measurement (mass/volume)on 12-20-2017 Bilirubin [Mass/Vol] 1.2 mg/dL 0.3-1.2 [facility] Serum or plasma total carbon dioxide measurement (moles/volume)on 12-20-2017 CO2 [Moles/Vol] 25.8 mmol/L 22.0-30.0 [facility] Serum or plasma urea nitroge n measurement (mass/volume)on 12-20-2017 Urea nitrogen [Mass/Vol] 6 mg/dL - [facility] Triglyceride [Mass/volume] i n Serum or Plasmaon 12-20-2017 Triglyceride [Mass/Vol] 97 mg/dL 35-149 [facility] Comment on above: TRIG ATP III CLASSIF ICATIONTRIG less than 150 mg/dL NormalTRIG 150-199 mg/dL Borderline highTRIG 200-500 mg/dL High TRIG greater than 500 mg/dL Very highStandard traceable to the Center for Disease Conrtrol and Prevention (CDC) test method. Urine microalbumin measureme nt with detection limit of 20 mg/L or less (mass/volume)on 12-20-2017 Albumin DL <= 20 mg/L (U) [Mass/Vol] mg/dL 0.0-1.8 [facility] Urine microalbumin/creatinin e mass ratioon 12-20-2017 Albumin/Creatinine DL <= 20 mg/L (U) [Mass ratio] TNP [facility] Comment on above: Test not performed Vitamin B12 ser/plason 12-20 Cobalamin (Vitamin B12) [Mass/Vol] 823 pg/mL 180-914 [facility] Vital Signs Date Time Vital Sign Value Performing Clinician Facility 08-21-2024 16:00-0400 Body temperature 97.8 [degF] Chapis Joshua JITTERBUG OPERATOR-C Work Phone: [facility] 08-21-2024 16:00-0400 Diastolic blood pressure 73 mm[Hg] Chapis Joshua JITTERBUG OPERATOR-C Work Phone: [facility] 08-21-2024 16:00-0400 Heart rate 89 /min Chapis Joshua JITTERBUG OPERATOR-C Work Phone: [facility] 08-21-2024 16:00-0400 Respiratory rate 18 /min Chapis Joshua JITTERBUG OPERATOR-C Work Phone: [facility] 08-21-2024 16:00-0400 SaO2% (BldA) [Mass fraction] 100 % Chapis Joshua JITTERBUG OPERATOR-C Work Phone: [facility] 08-21-2024 16:00-0400 Systolic blood pressure 124 mm[Hg] Chapis Joshua JITTERBUG OPERATOR-C Work Phone: [facility] 08-21-2024 06:00-0400 Body weight 54.5 kg Chapis Joshua JITTERBUG OPERATOR-C Work Phone: [facility] 08-19-2024 21:03-0400 Body height 157.48 cm Chapis Joshua JITTERBUG OPERATOR-C Work Phone: [facility] 07-10-2024 15:08-0400 Diastolic blood pressure 72 mm[Hg] Chapis Joshua JITTERBUG OPERATOR-C Work Phone: [facility] 07-10-2024 15:08-0400 Heart rate 93 /min Chapis Joshau JITTERBUG OPERATOR-C Work Phone: [facility] 07-10-2024 15:08-0400 Respiratory rate 16 /min Chapis Joshua JITTERBUG OPERATOR-C Work Phone: [facility] 07-10-2024 15:08-0400 SaO2% (BldA) [Mass fraction] 100 % Chapis Joshua JITTERBUG OPERATOR-C Work Phone: [facility] 07-10-2024 15:08-0400 Systolic blood pressure 156 mm[Hg] Chapis Joshua JITTERBUG OPERATOR-C Work Phone: [facility] 07-10-2024 12:09-0400 Body height 165.1 cm Chapis Joshua JITTERBUG OPERATOR-C Work Phone: [facility] 07-10-2024 12:09-0400 Body temperature 97.8 [degF] Chapis Joshua JITTERBUG OPERATOR-C Work Phone: [facility] 07-10-2024 12:09-0400 Body weight 64.7 kg Chapis Joshua JITTERBUG OPERATOR-C Work Phone: [facility] 07-08-2024 12:00-0400 Body temperature 97.4 [degF] Chapis Joshua JITTERBUG OPERATOR-C Work Phone: [facility] 07-08-2024 12:00-0400 Diastolic blood pressure 65 mm[Hg] Chapis Joshua JITTERBUG OPERATOR-C Work Phone: [facility] 07-08-2024 12:00-0400 Heart rate 97 /min Chapis Joshua JITTERBUG OPERATOR-C Work Phone: [facility] 07-08-2024 12:00-0400 Respiratory rate 16 /min Chapis Joshua JITTERBUG OPERATOR-C Work Phone: [facility] 07-08-2024 12:00-0400 SaO2% (BldA) [Mass fraction] 98 % Chapis Joshua JITTERBUG OPERATOR-C Work Phone: [facility] 07-08-2024 12:00-0400 Systolic blood pressure 119 mm[Hg] Chapis Joshua JITTERBUG OPERATOR-C Work Phone: [facility] 07-08-2024 06:06-0400 Body weight 69 kg Chapis Joshua JITTERBUG OPERATOR-C Work Phone: [facility] 07-07-2024 16:29-0400 Body height 157.48 cm Chapis Joshua JITTERBUG OPERATOR-C Work Phone: [facility] 07-02-2024 09:20-0400 Inhaled oxygen flow rate 8 L/min Chapis Joshua JITTERBUG OPERATOR-C Work Phone: [facility] 06-30-2024 21:41-0400 Diastolic blood pressure 69 mm[Hg] Chapis Joshua JITTERBUG OPERATOR-C Work Phone: [facility] 06-30-2024 21:41-0400 Heart rate 95 /min Chapis Joshua JITTERBUG OPERATOR-C Work Phone: [facility] 06-30-2024 21:41-0400 Respiratory rate 16 /min Chapis Joshua JITTERBUG OPERATOR-C Work Phone: [facility] 06-30-2024 21:41-0400 SaO2% (BldA) [Mass fraction] 99 % Chapis Joshua JITTERBUG OPERATOR-C Work Phone: [facility] 06-30-2024 21:41-0400 Systolic blood pressure 155 mm[Hg] Chapis Joshua JITTERBUG OPERATOR-C Work Phone: [facility] 06-30-2024 19:20-0400 Body height 157.48 cm Chapis Joshua JITTERBUG OPERATOR-C Work Phone: [facility] 06-30-2024 19:20-0400 Body temperature 98.1 [degF] Chapis Joshua JITTERBUG OPERATOR-C Work Phone: [facility] 06-30-2024 19:20-0400 Body weight 62.3 kg Chapis Joshua JITTERBUG OPERATOR-C Work Phone: [facility] 01-18-2024 11:30-0500 Body height 157.5 cm Noemi Lockett RESAW FEEDER.CIRCULATION ASSISTANT Work Phone: [facility] 01-18-2024 11:30-0500 Body mass index (BMI) [Ratio] 25.65 kg/m2 Noemi Lockett RESAW FEEDER.CIRCULATION ASSISTANT Work Phone: [facility] 01-18-2024 11:30-0500 Body temperature 98.49 [degF] Noemi Lockett RESAW FEEDER.CIRCULATION ASSISTANT Work Phone: [facility] 01-18-2024 11:30-0500 Body weight 63.6 kg Noemi Lockett RESAW FEEDER.CIRCULATION ASSISTANT Work Phone: [facility] 01-18-2024 11:30-0500 Diastolic blood pressure 41 mm[Hg] Noemi Lockett APRN.CIRCULATION ASSISTANT Work Phone: [facility] Comment on above: Patient states headache lack of sleep no distress 01-18-2024 11:30-0500 Heart rate 84 /min Noemi Lockett RESAW FEEDER.CIRCULATION ASSISTANT Work Phone: [facility] 01-18-2024 11:30-0500 SaO2% (BldA) [Mass fraction] 100 % Noemi Lockett RESAW FEEDER.CIRCULATION ASSISTANT Work Phone: [facility] 01-18-2024 11:30-0500 Systolic blood pressure 126 mm[Hg] Noemi Lockett RESAW FEEDER.CIRCULATION ASSISTANT Work Phone: [facility] Comment on above: Patient states headache lack of sleep no distress 11-30-2023 10:26-0400 Body height 157.48 cm JITTERBUG OPERATOR-C Chapis Joshua Work Phone: [facility] 11-30-2023 10:26-0400 Body mass index (BMI) [Ratio] 24.7 kg/m2 JITTERBUG OPERATOR-C Chapis Joshua Work Phone: [facility] 11-30-2023 10:26-0400 Body temperature 98 [degF] JITTERBUG OPERATOR-C Chapis Joshua Work Phone: [facility] 11-30-2023 10:26-0400 Body weight 61.34 kg JITTERBUG OPERATOR-C Chapis Joshua Work Phone: [facility] 11-30-2023 10:26-0400 Diastolic blood pressure 61 mm[Hg] JITTERBUG OPERATOR-C Chapis Joshua Work Phone: [facility] 11-30-2023 10:26-0400 Heart rate 81 /min JITTERBUG OPERATOR-C Chapis Joshua Work Phone: [facility] 11-30-2023 10:26-0400 Respiratory rate 16 /min JITTERBUG OPERATOR-C Chapis Joshua Work Phone: [facility] 11-30-2023 10:26-0400 SaO2% (BldA) [Mass fraction] 99 % JITTERBUG OPERATOR-C Chapis Joshua Work Phone: [facility] 11-30-2023 10:26-0400 Systolic blood pressure 143 mm[Hg] JITTERBUG OPERATOR-C Chapis Joshua Work Phone: [facility] 07-21-2023 13:54-0400 Body height 157.48 cm JITTERBUG OPERATOR-C Chapis Joshua Work Phone: [facility] 07-21-2023 13:54-0400 Body mass index (BMI) [Ratio] 22.6 kg/m2 JITTERBUG OPERATOR-C Chapis Joshua Work Phone: [facility] 07-21-2023 13:54-0400 Body weight 56.24 kg JITTERBUG OPERATOR-C Chapis Joshua Work Phone: [facility] 07-21-2023 13:54-0400 Diastolic blood pressure 74 mm[Hg] JITTERBUG OPERATOR-C Chapis Joshua Work Phone: [facility] 07-21-2023 13:54-0400 Heart rate 80 /min JITTERBUG OPERATOR-C Chapis Joshua Work Phone: [facility] 07-21-2023 13:54-0400 Respiratory rate 18 /min JITTERBUG OPERATOR-C Chapis Joshua Work Phone: [facility] 07-21-2023 13:54-0400 SaO2% (BldA) [Mass fraction] 99 % JITTERBUG OPERATOR-C Chapis Joshua Work Phone: [facility] 07-21-2023 13:54-0400 Systolic blood pressure 133 mm[Hg] JITTERBUG OPERATOR-C Chapis Joshua Work Phone: [facility] 07-05-2023 10:53-0400 Body height 157.5 cm Jena Cohen MD Work Phone: [facility] 07-05-2023 10:53-0400 Body mass index (BMI) [Ratio] 23.15 kg/m2 Jena Cohen MD Work Phone: [facility] 07-05-2023 10:53-0400 Body temperature 98.1 [degF] Jena Cohen MD Work Phone: [facility] 07-05-2023 10:53-0400 Body weight 57.4 kg Jena Cohen MD Work Phone: [facility] 07-05-2023 10:53-0400 Diastolic blood pressure 51 mm[Hg] Jena Cohen MD Work Phone: [facility] 07-05-2023 10:53-0400 Heart rate 86 /min Jena Cohen MD Work Phone: [facility] 07-05-2023 10:53-0400 SaO2% (BldA) [Mass fraction] 100 % Jena Cohen MD Work Phone: [facility] 07-05-2023 10:53-0400 Systolic blood pressure 110 mm[Hg] Jena Cohen MD Work Phone: [facility] 06-15-2023 13:40-0400 Body height 157.48 cm JITTERBUG OPERATOR-C Chapis Joshua Work Phone: [facility] 06-15-2023 13:40-0400 Body mass index (BMI) [Ratio] 23.4 kg/m2 JITTERBUG OPERATOR-C Chapis Joshua Work Phone: [facility] 06-15-2023 13:40-0400 Body temperature 96 [degF] JITTERBUG OPERATOR-C Chapis Joshua Work Phone: [facility] 06-15-2023 13:40-0400 Body weight 58.17 kg JITTERBUG OPERATOR-C Chapis Joshua Work Phone: [facility] 06-15-2023 13:40-0400 Diastolic blood pressure 68 mm[Hg] JITTERBUG OPERATOR-C Chapis Joshua Work Phone: [facility] 06-15-2023 13:40-0400 Heart rate 84 /min JITTERBUG OPERATOR-C Chapis Joshua Work Phone: [facility] 06-15-2023 13:40-0400 Respiratory rate 16 /min JITTERBUG OPERATOR-C Chapis Joshua Work Phone: [facility] 06-15-2023 13:40-0400 SaO2% (BldA) [Mass fraction] 99 % JITTERBUG OPERATOR-C Chapis Joshua Work Phone: [facility] 06-15-2023 13:40-0400 Systolic blood pressure 130 mm[Hg] JITTERBUG OPERATOR-C Chapis Joshua Work Phone: [facility] 06-11-2023 16:05-0400 Body height 157.5 cm Moon Bhardwajdenberry RESAW FEEDER.CIRCULATION ASSISTANT Work Phone: [facility] 06-11-2023 16:05-0400 Body temperature 97.39 [degF] Moon Rosinadenberry RESAW FEEDER.CIRCULATION ASSISTANT Work Phone: [facility] 06-11-2023 16:05-0400 Body weight 61.5 kg Moon Roddenberry RESAW FEEDER.CIRCULATION ASSISTANT Work Phone: [facility] 06-11-2023 16:05-0400 Diastolic blood pressure 51 mm[Hg] Moon Roddenberry RESAW FEEDER.CIRCULATION ASSISTANT Work Phone: [facility] 06-11-2023 16:05-0400 Heart rate 84 /min Moon Rosinadenberry RESAW FEEDER.CIRCULATION ASSISTANT Work Phone: [facility] 06-11-2023 16:05-0400 SaO2% (BldA) [Mass fraction] 100 % Moon Rosinadenberry RESAW FEEDER.CIRCULATION ASSISTANT Work Phone: [facility] 06-11-2023 16:05-0400 Systolic blood pressure 127 mm[Hg] Moon Roddenberry RESAW FEEDER.CIRCULATION ASSISTANT Work Phone: [facility] 05-24-2023 21:00-0400 Diastolic blood pressure 59 mm[Hg] JITTERBUG OPERATOR-C Chapis Joshua Work Phone: [facility] 05-24-2023 21:00-0400 Heart rate 72 /min JITTERBUG OPERATOR-C Chapis Joshua Work Phone: [facility] 05-24-2023 21:00-0400 Respiratory rate 20 /min JITTERBUG OPERATOR-C Chapis Joshua Work Phone: [facility] 05-24-2023 21:00-0400 SaO2% (BldA) [Mass fraction] 100 % JITTERBUG OPERATOR-C Chapis Joshua Work Phone: [facility] 05-24-2023 21:00-0400 Systolic blood pressure 111 mm[Hg] JITTERBUG OPERATOR-C Chapis Joshua Work Phone: [facility] 05-24-2023 16:04-0400 Body temperature 97.5 [degF] JITTERBUG OPERATOR-C Chapis Joshua Work Phone: [facility] 05-24-2023 15:11-0400 Inhaled oxygen flow rate 2 L/min JITTERBUG OPERATOR-C Chapis Joshua Work Phone: [facility] 05-24-2023 03:02-0400 Body height 157.48 cm JITTERBUG OPERATOR-C Chapis Joshua Work Phone: [facility] 05-24-2023 03:02-0400 Body temperature 98.6 [degF] JITTERBUG OPERATOR-C Chapis Joshua Work Phone: [facility] 05-24-2023 03:02-0400 Body weight 66 kg JITTERBUG OPERATOR-C Chapis Joshua Work Phone: [facility] 05-24-2023 03:02-0400 Diastolic blood pressure 68 mm[Hg] JITTERBUG OPERATOR-C Chapis Joshua Work Phone: [facility] 05-24-2023 03:02-0400 Heart rate 88 /min JITTERBUG OPERATOR-C Chapis Joshua Work Phone: [facility] 05-24-2023 03:02-0400 Respiratory rate 24 /min JITTERBUG OPERATOR-C Chapis Joshua Work Phone: [facility] 05-24-2023 03:02-0400 SaO2% (BldA) [Mass fraction] 99 % JITTERBUG OPERATOR-C Chapis Joshua Work Phone: [facility] 05-24-2023 03:02-0400 Systolic blood pressure 145 mm[Hg] JITTERBUG OPERATOR-C Chapis Joshua Work Phone: [facility] 02-09-2023 11:40-0500 Body height 157.48 cm JITTERBUG OPERATOR-C Chapis Joshua Work Phone: [facility] 02-02-2023 13:20-0500 Diastolic blood pressure 73 mm[Hg] JITTERBUG OPERATOR-C Chapis Joshua Work Phone: [facility] 02-02-2023 13:20-0500 Heart rate 61 /min JITTERBUG OPERATOR-C Chapis Joshua Work Phone: [facility] 02-02-2023 13:20-0500 Respiratory rate 18 /min JITTERBUG OPERATOR-C Chaips Joshua Work Phone: [facility] 02-02-2023 13:20-0500 SaO2% (BldA) [Mass fraction] 100 % JITTERBUG OPERATOR-C Chapis Joshua Work Phone: [facility] 02-02-2023 13:20-0500 Systolic blood pressure 106 mm[Hg] JITTERBUG OPERATOR-C Chapis Joshua Work Phone: [facility] 02-02-2023 11:42-0500 Body height 157.48 cm JITTERBUG OPERATOR-C Chapis Joshua Work Phone: [facility] 02-02-2023 11:42-0500 Body weight 68.94 kg JITTERBUG OPERATOR-C Chapis Joshua Work Phone: [facility] 11-11-2022 15:15-0400 Body height 157.48 cm Tondra Mapus Other [employer] Other 11-11-2022 15:15-0400 Body mass index (BMI) [Ratio] 24.91 kg/m2 Tondra Mapus Other [employer] Other 11-11-2022 15:15-0400 Body weight 61.78 kg Tondra Mapus Other [employer] Other 11-11-2022 15:15-0400 Diastolic blood pressure 68 mm[Hg] Tondra Mapus Other [employer] Other 11-11-2022 15:15-0400 Respiratory rate 18 /min Tondra Mapus Other [employer] Other 11-11-2022 15:15-0400 SaO2% (BldA) [Mass fraction] 99 % Tondra Mapus Other [employer] Other 11-11-2022 15:15-0400 Systolic blood pressure 119 mm[Hg] Tondra Mapus Other [employer] Other 10-27-2022 13:33-0400 Diastolic blood pressure 58 mm[Hg] MD Rain Hebert Work Phone: [facility] 10-27-2022 13:33-0400 Heart rate 87 /min MD Rain Hebert Work Phone: [facility] 10-27-2022 13:33-0400 Respiratory rate 16 /min MD Rain Hebert Work Phone: [facility] 10-27-2022 13:33-0400 SaO2% (BldA) [Mass fraction] 100 % MD Rain Hebert Work Phone: [facility] 10-27-2022 13:33-0400 Systolic blood pressure 108 mm[Hg] MD Rain Hebert Work Phone: [facility] 10-27-2022 11:12-0400 Body height 157.48 cm MD Rain Hebert Work Phone: [facility] 10-27-2022 11:12-0400 Body weight 68.03 kg MD Rain Hebert Work Phone: [facility] 10-08-2022 14:45-0400 Body height 157.48 cm Nimesh Chin Other [facility] [employer] Other 10-08-2022 14:45-0400 Body mass index (BMI) [Ratio] 26.15 kg/m2 Nimesh Chin Other [employer] Other 10-08-2022 14:45-0400 Body weight 64.86 kg Nimehs Chin Other [employer] Other 10-08-2022 14:45-0400 Diastolic blood pressure 74 mm[Hg] Nimesh Chin Other [employer] Other 10-08-2022 14:45-0400 Systolic blood pressure 110 mm[Hg] Nimesh Chin Other [employer] Other 08-17-2022 12:57-0400 Body height 157.5 cm Moon Roddenberry RESAW FEEDER.CIRCULATION ASSISTANT Work Phone: [facility] 08-17-2022 12:57-0400 Body temperature 98.01 [degF] Moon Roddenberry RESAW FEEDER.CIRCULATION ASSISTANT Work Phone: [facility] 08-17-2022 12:57-0400 Body weight 62.32 kg Moon Roddenberry RESAW FEEDER.CIRCULATION ASSISTANT Work Phone: [facility] 08-17-2022 12:57-0400 Diastolic blood pressure 59 mm[Hg] Moon Roddenberry RESAW FEEDER.CIRCULATION ASSISTANT Work Phone: [facility] 08-17-2022 12:57-0400 Heart rate 77 /min Moon Roddenberry RESAW FEEDER.CIRCULATION ASSISTANT Work Phone: [facility] 08-17-2022 12:57-0400 SaO2% (BldA) [Mass fraction] 98 % Moon Roddenberry RESAW FEEDER.CIRCULATION ASSISTANT Work Phone: [facility] 08-17-2022 12:57-0400 Systolic blood pressure 120 mm[Hg] Moon Roddenberry RESAW FEEDER.CIRCULATION ASSISTANT Work Phone: [facility] 08-03-2022 15:00-0400 Body height 157.48 cm Tondra Mapus Other [employer] Other 08-03-2022 15:00-0400 Body mass index (BMI) [Ratio] 26.23 kg/m2 Tondra Mapus Other [employer] Other 08-03-2022 15:00-0400 Body weight 65.05 kg Tondra Mapus Other [employer] Other 08-03-2022 15:00-0400 Diastolic blood pressure 70 mm[Hg] Tondra Mapus Other [employer] Other 08-03-2022 15:00-0400 Respiratory rate 18 /min Tondra Mapus Other [employer] Other 08-03-2022 15:00-0400 SaO2% (BldA) [Mass fraction] 98 % Tondra Mapus Other [employer] Other 08-03-2022 15:00-0400 Systolic blood pressure 106 mm[Hg] Tondra Mapus Other [employer] Other 07-01-2022 10:38-0400 Diastolic blood pressure 58 mm[Hg] MD Rain Hebert Work Phone: [facility] 07-01-2022 10:38-0400 Heart rate 68 /min MD Rain Hebert Work Phone: [facility] 07-01-2022 10:38-0400 Respiratory rate 16 /min MD Rain Hebert Work Phone: [facility] 07-01-2022 10:38-0400 SaO2% (BldA) [Mass fraction] 100 % MD Rain Hebert Work Phone: [facility] 07-01-2022 10:38-0400 Systolic blood pressure 96 mm[Hg] MD Rain Hebert Work Phone: [facility] 07-01-2022 08:27-0400 Body height 157.48 cm MD Rain Hebert Work Phone: [facility] 07-01-2022 08:27-0400 Body weight 67.58 kg MD Rain Hebert Work Phone: [facility] 04-20-2022 15:00-0500 Body height 157.48 cm Tondra Mapus Other [employer] Other 04-20-2022 15:00-0500 Body mass index (BMI) [Ratio] 25.86 kg/m2 Tondra Mapus Other [employer] Other 04-20-2022 15:00-0500 Body weight 64.14 kg Tondra Mapus Other [employer] Other 04-20-2022 15:00-0500 Diastolic blood pressure 65 mm[Hg] Tondra Mapus Other [employer] Other 04-20-2022 15:00-0500 Respiratory rate 18 /min Tondra Mapus Other [employer] Other 04-20-2022 15:00-0500 SaO2% (BldA) [Mass fraction] 99 % Tondra Mapus Other [employer] Other 04-20-2022 15:00-0500 Systolic blood pressure 108 mm[Hg] Tondra Mapus Other [employer] Other 03-18-2022 14:00-0500 Body height 157.48 cm Nimesh Chin Other [employer] Other 03-18-2022 14:00-0500 Body mass index (BMI) [Ratio] 25.05 kg/m2 Nimesh Chin Other [employer] Other 03-18-2022 14:00-0500 Body weight 62.14 kg Nimesh Chin Other [employer] Other 03-18-2022 14:00-0500 Diastolic blood pressure 58 mm[Hg] Nimesh Kiddy Other [employer] Other 03-18-2022 14:00-0500 Systolic blood pressure 104 mm[Hg] Nimesh Chin Other [employer] Other 03-10-2022 15:40-0500 Body height 157.48 cm Aziz Subtexts Other [employer] Other 03-10-2022 15:40-0500 Body mass index (BMI) [Ratio] 25.02 kg/m2 [employer]iz [employer] Other [employer] Other 03-10-2022 15:40-0500 Body temperature 97.7 [degF] Aziz Bakhous Other [employer] Other 03-10-2022 15:40-0500 Body weight 62.05 kg Aziz Bakhous Other [employer] Other 03-10-2022 15:40-0500 Diastolic blood pressure 40 mm[Hg] Aziz Bakhous Other [employer] Other 03-10-2022 15:40-0500 Respiratory rate 16 /min Aziz Bakleslies Other [employer] Other 03-10-2022 15:40-0500 SaO2% (BldA) [Mass fraction] 97 % Mickey Melaras Other [employer] Other 03-10-2022 15:40-0500 Systolic blood pressure 80 mm[Hg] Christosiz Bakleslies Other [employer] Other 01-05-2022 16:00-0500 Body height 157.48 cm Tondra Mapus Other [employer] Other 01-05-2022 16:00-0500 Body mass index (BMI) [Ratio] 26.52 kg/m2 Tondra Mapus Other [employer] Other 01-05-2022 16:00-0500 Body weight 65.77 kg Tondra Mapus Other [employer] Other 01-05-2022 16:00-0500 Diastolic blood pressure 64 mm[Hg] Tondra Mapus Other [employer] Other 01-05-2022 16:00-0500 Respiratory rate 16 /min Tondra Mapus Other [employer] Other 01-05-2022 16:00-0500 SaO2% (BldA) [Mass fraction] 100 % Tondra Mapus Other [employer] Other 01-05-2022 16:00-0500 Systolic blood pressure 111 mm[Hg] Tondra Mapus Other [employer] Other 09-23-2021 15:30-0400 Body height 157.48 cm Tondra Mapus Other [employer] Other 09-23-2021 15:30-0400 Body mass index (BMI) [Ratio] 25.53 kg/m2 Tondra Mapus Other [employer] Other 09-23-2021 15:30-0400 Body weight 63.32 kg Tondra Mapus Other [employer] Other 09-23-2021 15:30-0400 Diastolic blood pressure 70 mm[Hg] Tondra Mapus Other [employer] Other 09-23-2021 15:30-0400 Respiratory rate 18 /min Tondra Mapus Other [employer] Other 09-23-2021 15:30-0400 SaO2% (BldA) [Mass fraction] 100 % Tondra Mapus Other [employer] Other 09-23-2021 15:30-0400 Systolic blood pressure 111 mm[Hg] Tondra Mapus Other [employer] Other 08-12-2021 16:30-0400 Body height 157.48 cm Laurent Clark Other [employer] Other 08-12-2021 16:30-0400 Body mass index (BMI) [Ratio] 25.24 kg/m2 Laurent Clark Other [employer] Other 08-12-2021 16:30-0400 Body weight 62.6 kg Laurent Clark Other [employer] Other 08-12-2021 16:30-0400 Diastolic blood pressure 68 mm[Hg] Laurent Clark Other [employer] Other 08-12-2021 16:30-0400 Systolic blood pressure 125 mm[Hg] Laurent Clark Other [employer] Other 07-08-2021 16:00-0400 Body height 157.48 cm Azdiogo [employer] Other [employer] Other 07-08-2021 16:00-0400 Body mass index (BMI) [Ratio] 25.09 kg/m2 [employer] Other [employer] Other 07-08-2021 16:00-0400 Body temperature 97.3 [degF] Aziz [employer] Other [employer] Other 07-08-2021 16:00-0400 Body weight 62.23 kg Azdiogo [employer] Other [employer] Other 07-08-2021 16:00-0400 Diastolic blood pressure 49 mm[Hg] Aziz [employer] Other [employer] Other 07-08-2021 16:00-0400 Respiratory rate 20 /min Aziz [employer] Other [employer] Other 07-08-2021 16:00-0400 SaO2% (BldA) [Mass fraction] 98 % Azdiogo Bakhous Other [employer] Other 07-08-2021 16:00-0400 Systolic blood pressure 91 mm[Hg] Mickey Lovett Other [employer] Other 04-08-2021 16:15-0500 Body height 157.48 cm Laurent Clark Other [employer] Other 04-08-2021 16:15-0500 Body mass index (BMI) [Ratio] 23.77 kg/m2 Laurent Clark Other [employer] Other 04-08-2021 16:15-0500 Body weight 58.97 kg Laurent Clark Other [employer] Other 02-11-2021 16:30-0500 Body height 157.48 cm Tondra Mapus Other [employer] Other 02-11-2021 16:30-0500 Body mass index (BMI) [Ratio] 26.52 kg/m2 Tondra Mapus Other [employer] Other 02-11-2021 16:30-0500 Body weight 65.77 kg Tondra Mapus Other [employer] Other 02-11-2021 16:30-0500 Diastolic blood pressure 66 mm[Hg] Tondra Mapus Other [employer] Other 02-11-2021 16:30-0500 Respiratory rate 16 /min Tondra Mapus Other [employer] Other 02-11-2021 16:30-0500 SaO2% (BldA) [Mass fraction] 99 % Ajay Kiddus Other [facility] [employer] Other 02-11-2021 16:30-0500 Systolic blood pressure 112 mm[Hg] Ajay Kiddus Other [facility] [employer] Other 12-22-2018 14:36-0400 Body height 157.48 cm MD Rain Hebert Work Phone: [facility] 12-22-2018 14:36-0400 Body weight 63.23 kg MD Rain Hebert Work Phone: [facility] Encounters Encounter Date Encounter Type Care Provider Facility Start: 10-11-2024 ambulatory Chapis L Joshua Facility: [facility] Start: 09-12-2024 ambulatory PA-C NICOLE KELLEY Facility:[facility] Start: 09-12-2024 End: 09-12-2024 Patient encounter procedure [facility] Start: 09-11-2024 ambulatory Chapis Joshua Facility:[facility] Start: 08-30-2024 End: 08-30-2024 ambulatory Chapis L Joshua Facility:[facility] Selma linn Start: 08-23-2024 End: 08-23-2024 Patient encounter procedure Roger Robbins [facility] Work Phone: Start: 08-23-2024 End: 08-23-2024 ambulatory Chapis Sylvia Joshua JITTERBUG OPERATOR-C Work Phone: [facility] Work Phone: Start: 08-22-2024 ambulatory Chapis L Joshua Facility: [id number] Start: 08-19-2024 End: 08-21-2024 ambulatory Mack Carmona Facility:[facility] Start: 08-19-2024 End: 08-21-2024 Evaluation and management of inpatient Aly Hooks MD -[facility] Work Phone: Start: 07-26-2024 End: 07-26-2024 ambulatory Chapis Ward Joshua JITTERBUG OPERATOR-C Work Phone: [facility] Work Phone: Start: 07-26-2024 End: 07-26-2024 Patient encounter procedure Chapis Joshua JITTERBUG OPERATOR-C Work Phone: [facility] Work Phone: Start: 07-26-2024 End: 07-26-2024 Patient encounter procedure Chapis Joshua JITTERBUG OPERATOR-C Work Phone: [facility] Start: 07-26-2024 End: 07-26-2024 ambulatory Chapis Ward Joshua JITTERBUG OPERATOR-C Work Phone: [facility] Work Phone: Start: 07-14-2024 End: 07-14-2024 ambulatory Jordan R Bunting Facility:[facility] Start: 07-14-2024 End: 07-14-2024 Departed Referred Chapis Joshua JITTERBUG OPERATOR-C Work Phone: [facility] Work Phone: Start: 07-10-2024 End: 07-10-2024 Emergency department patient visit Chapis Joshua JITTERBUG OPERATOR-C Work Phone: [facility] Work Phone: Start: 07-03-2024 Non-patient / Non-visit Chapis Joshua JITTERBUG OPERATOR-C Work Phone: [facility] Work Phone: Start: 07-01-2024 Non-patient / Non-visit Chapis Joshua JITTERBUG OPERATOR-C Work Phone: [facility] Work Phone: Start: 06-30-2024 End: 07-08-2024 Evaluation and management of inpatient Chapis Joshua JITTERBUG OPERATOR-C Work Phone: [facility] Work Phone: Start: 06-28-2024 End: 06-28-2024 ambulatory No Follow Up Required Community Outreach Start: 06-28-2024 End: 06-28-2024 Follow-up encounter No Follow Up Required Community Outreach Comment on above: Community Outreach ( Screening Mammogram Referral/ Learning And Development Specialist/) Start: 06-27-2024 End: 06-27-2024 ambulatory No Follow Up Required [facility] Out[facility] Start: 06-27-2024 End: 06-27-2024 Follow-up encounter No Follow Up Required Community Outreach Comment on above: Community Outreach ( Screening Mammogram Referral/ Learning And Development Specialist ) Start: 04-18-2024 End: 04-18-2024 Lab Drop off Chapis L Joshua [facility] Start: 04-18-2024 End: 04-18-2024 ambulatory Chapis L Joshua Facility:[facility] Start: 01-18-2024 End: 01-18-2024 Patient encounter procedure Noemi Lockett RESAW FEEDER.CIRCULATION ASSISTANT Work Phone: Gastroenterology Comment on above: 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); Vitamin D deficiency Start: 01-18-2024 End: 01-18-2024 ambulatory [facility] Facility:[facility] Start: 01-18-2024 End: 01-18-2024 ambulatory [facility] Facility:[facility] Start: 01-18-2024 End: 01-18-2024 Subsequent hospital visit by physician Mri 4 [facility] (I-Stat/1.5t/3t) Work Phone: MRI Q Comment on above: 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) [K74.3] Start: 01-13-2024 End: 01-13-2024 ambulatory Chapis L Joshua Facility:[facility] Josephine esteves Start: 11-30-2023 End: 11-30-2023 ambulatory JITTERBUG OPERATOR-C Chapis Sylvia Joshua Work Phone: [facility] Work Phone: Start: 11-30-2023 End: 11-30-2023 Patient encounter procedure JITTERBUG OPERATOR-C Chapis Lewis Work Phone: [facility] Nephrology [facility] Work Phone: Start: 11-23-2023 End: 11-23-2023 Patient encounter procedure JITTERBUG OPERATOR-C Chapis Lewis Work Phone: [facility] [place] Work Phone: Start: 11-23-2023 End: 11-23-2023 ambulatory JITTERBUG OPERATOR-C Chapis Sylvia Lewis Work Phone: [facility] Work Phone: Start: 08-27-2023 Refill Jena bolanos MD Work Phone: [facility] Comment on above: Refill Request Start: 07-21-2023 End: 07-21-2023 ambulatory JITTERBUG OPERATOR-C Chapis Lewis Work Phone: [facility] Work Phone: Start: 07-21-2023 End: 07-21-2023 Patient encounter procedure JITTERBUG OPERATOR-Jona Chapis Joshua Work Phone: [facility] Work Phone: Start: 07-20-2023 Orders Only Jena bolanos MD Work Phone: Gastroenterology Comment on above: 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) Start: 07-16-2023 Telephone encounter Jena Lyon MD Work Phone: Gastroenterology Start: 07-16-2023 End: 07-16-2023 ambulatory JITTERBUG OPERATOR-C Chapis Lewis Work Phone: [facility] Work Phone: Start: 07-16-2023 End: 07-16-2023 Patient encounter procedure JITTERBUG OPERATOR-C Chapis Lewis Work Phone: [facility] [place] Work Phone: Start: 07-05-2023 End: 07-05-2023 Subsequent hospital visit by physician Main A21 5 Work Phone: Radiology Comment on above: 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] Start: 07-05-2023 End: 07-05-2023 Patient encounter procedure Jena Cohen MD Work Phone: Gastroenterology Comment on above: Encounter for screen ing for osteoporosis (Primary Dx); 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); Esophageal varices without bleeding, unspecified esophageal varices type (HCC); Malnutrition of moderate degree (HCC) Start: 06-30-2023 End: 06-30-2023 ambulatory Chapis L Joshua Facility:[facility] Start: 06-29-2023 End: 06-29-2023 ambulatory Chapis L Joshua Facility:[facility] Start: 06-15-2023 Telephone encounter Moon brooks APRN.CIRCULATION ASSISTANT Work Phone: Gastroenterology Comment on above: [facility] Start: 06-15-2023 End: 06-15-2023 ambulatory JITTERBUG OPERATOR-C Chapis Lewis Work Phone: [facility] Work Phone: Start: 06-15-2023 End: 06-15-2023 Patient encounter procedure JITTERBUG OPERATOR-C Chapis Lewis Work Phone: [facility] Nephrology [facility] Work Phone: Start: 06-11-2023 End: 06-11-2023 Patient encounter procedure Moon Roper APRN.CIRCULATION ASSISTANT Work Phone: Gastroenterology Comment on above: 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); Esophageal varices without bleeding, unspecified esophageal varices type (HCC); Malnutrition of moderate degree (HCC) Start: 06-03-2023 ambulatory RAIN Lemons ity:[facility] Start: 06-03-2023 End: 06-03-2023 Subsequent hospital visit by physician [facility] Work Phone: Radiology Comment on above: 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] Start: 06-02-2023 End: 06-14-2023 ambulatory Chapis Lewis Facility:[id number] Start: 05-24-2023 End: 05-24-2023 Non-patient / Non-visit JITTERBUG OPERATOR-C Chapis Lewis Work Phone: [facility] Gastroenterology Work Phone: Start: 05-24-2023 End: 05-24-2023 Non-patient / Non-visit JITTERBUG OPERATOR-C Chapis Lewis Work Phone: [facility] Work Phone: Start: 05-24-2023 End: 05-24-2023 Evaluation and management of inpatient JITTERBUG OPERATOR-C Chapis Lewis Work Phone: [facility] Work Phone: Start: 04-20-2023 End: 04-20-2023 ambulatory JITTERBUG OPERATOR-C Chapis Lewis Work Phone: [facility] Work Phone: Start: 04-20-2023 End: 04-20-2023 Patient encounter procedure JITTERBUG OPERATOR-C Chapis Lewis Work Phone: [facility] Work Phone: Start: 04-13-2023 End: 04-13-2023 ambulatory JITTERBUG OPERATOR-C Chapis Lewis Work Phone: [facility] Work Phone: Start: 04-13-2023 End: 04-13-2023 Patient encounter procedure JITTERBUG OPERATOR-C Chapis Lewis Work Phone: [facility] [place] Work Phone: Start: 04-01-2023 End: 04-01-2023 ambulatory Tondra Mapus Other [employer] Other Start: 04-01-2023 Telephone encounter Tondra Mapus [facility] Start: 03-17-2023 End: 03-17-2023 ambulatory Tondra Mapus Other [employer] Other Start: 03-17-2023 Telephone encounter Tondra Mapus [facility] Start: 03-10-2023 End: 03-10-2023 ambulatory Azdiogo Melaras Other [employer] Other Start: 03-10-2023 Telephone encounter Azdiogo Melaras [facility] Start: 2023 End: 2023 ambulatory Nimesh Chin Other [employer] Other Start: 2023 Telephone encounter Nimesh Chin [facility] Start: 02-11-2023 End: 02-11-2023 ambulatory Tondra Mapus Other [employer] Other Start: 02-11-2023 Telephone encounter Tondra Mapus [facility] Start: 02-09-2023 End: 02-09-2023 Patient encounter procedure JITTERBUG OPERATOR-C Chapis Lewis Work Phone: [facility] Work Phone: Start: 02-04-2023 End: 02-04-2023 ambulatory Nimesh Chin Other [employer] Other Start: 02-04-2023 Telephone encounter Nimesh DHILLON [facility] Gastroenterology Start: 02-02-2023 End: 02-02-2023 Admission to same day surgery center JESSIE Lewis Work Phone: [facility] Work Phone: Start: 01-27-2023 End: 01-27-2023 ambulatory Nimesh Chin Other [employer] Other Start: 01-27-2023 Telephone encounter Nimesh DHILLON [facility] Gastroenterology Start: 12-02-2022 End: 12-02-2022 ambulatory Nimesh Chin Other [employer] Other Start: 12-02-2022 Telephone encounter Nimesh DHILLON [facility] Gastroenterology Start: 11-11-2022 (DM) Diabetes Tondra Mapus [facility] Start: 11-11-2022 End: 11-11-2022 ambulatory Tondra Mapus Other [employer] Other Start: 10-28-2022 End: 10-28-2022 ambulatory Tondra Mapus Other [employer] Other Start: 10-28-2022 Telephone encounter Tondra Mapus [facility] Start: 10-27-2022 Telephone encounter Nimesh DHILLON [facility] Gastroenterology Start: 10-27-2022 End: 10-27-2022 Admission to same day surgery center MD Rain Hebert Work Phone: [facility] Work Phone: Start: 10-27-2022 End: 10-27-2022 ambulatory MD Rain Hebert Work Phone: [facility] Work Phone: Start: 10-20-2022 End: 10-20-2022 ambulatory MD Rain Hebert Work Phone: [facility] Work Phone: Start: 10-20-2022 End: 10-20-2022 Patient encounter procedure MD Rain Hebert Work Phone: [facility] Work Phone: Start: 10-13-2022 Orders Only Moon jang RESAW FEEDER.CIRCULATION ASSISTANT Work Phone: Gastroenterology Comment on above: Rectal varices (Prim nat Dx); Primary biliary cirrhosis (HCC) Consult (TIPS) Start: 10-08-2022 End: 10-08-2022 ambulatory MD Rain Hebert Work Phone: [facility] Other Start: 10-08-2022 End: 10-08-2022 Patient encounter procedure Nimesh AGUILLON Gastroenterology Start: 08-28-2022 Telephone encounter Moon brooks RESAW FEEDER.CIRCULATION ASSISTANT Work Phone: Gastroenterology Comment on above: Request Outside [facility] Records Start: 08-17-2022 End: 08-17-2022 Patient encounter procedure Moon Roper RESAW FEEDER.CIRCULATION ASSISTANT Work Phone: Gastroenterology Comment on above: 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) Start: 08-03-2022 Registered Recurring MD Rain maldonado Work Phone: [facility] Work Phone: Start: 08-03-2022 (DM) Diabetes Tondra Mapus [facility] Start: 08-03-2022 End: 08-03-2022 ambulatory Tondra Mapus Other [employer] Other Start: 07-23-2022 End: 07-23-2022 ambulatory Tondra Mapus Other [employer] Other Start: 07-23-2022 Telephone encounter Tondra Mapus [facility] Start: 07-02-2022 End: 07-02-2022 ambulatory Nimesh Chin Other [employer] Other Start: 07-02-2022 Telephone encounter Nimesh DHILLON G Gastroenterology Start: 07-01-2022 End: 07-01-2022 Admission to same day surgery center MD Rain Hebert Work Phone: [facility] Work Phone: Start: 07-01-2022 End: 07-01-2022 ambulatory MD Rain Hebert Work Phone: [facility] Work Phone: Start: 05-25-2022 End: 05-25-2022 ambulatory Nimesh Chin Other [employer] Other Start: 05-25-2022 Telephone encounter Nimesh DHILLON G Gastroenterology Start: 04-27-2022 End: 04-27-2022 ambulatory Tondra Elam Other [employer] Other Start: 04-27-2022 Telephone encounter Ajay Delvalle [facility] Start: 04-20-2022 End: 04-20-2022 Patient encounter procedure MD Rain Hebert Work Phone: [facility] [place] Work Phone: Start: 04-20-2022 Registered Recurring MD Rain maldonado Work Phone: [facility] Work Phone: Start: 04-20-2022 (DM) Diabetes Tondrbehzad Elam [facility] Start: 04-20-2022 End: 04-20-2022 ambulatory MD Rain Hebert Work Phone: [facility] Work Phone: Start: 03-18-2022 End: 03-18-2022 ambulatory Nimesh Chin Other [employer] Other Start: 03-18-2022 Patient encounter procedure Nimesh Chin [facility] Start: 03-10-2022 End: 03-10-2022 ambulatory Aziz Bakhous Other [employer] Other Start: 03-10-2022 Office outpatient visit 25 minutes Aziz Bakhous [facility] Start: 03-06-2022 End: 03-06-2022 ambulatory Tondra Mapus Other [employer] Other Start: 03-06-2022 Telephone encounter Tondra Mapus [facility] Start: 02-25-2022 End: 02-25-2022 ambulatory MD Rain Hebert Work Phone: [facility] [facility] Work Phone: Start: 02-25-2022 End: 02-25-2022 Patient encounter procedure MD Rain Hebert Work Phone: [facility] [place] Work Phone: Start: 01-05-2022 Registered Recurring MD Rain maldonado Work Phone: [facility] Work Phone: Start: 01-05-2022 (DM) Diabetes Tondra Mapus [facility] Start: 01-05-2022 End: 01-05-2022 ambulatory Tondra Mapus Other [employer] Other Start: 10-15-2021 End: 10-15-2021 ambulatory Tondra Mapus Other [employer] Other Start: 10-15-2021 Telephone encounter Tondra Mapus [facility] Start: 10-14-2021 End: 10-14-2021 ambulatory Laurent Clark Other [employer] Other Start: 10-14-2021 Telephone encounter Laurent Clark [facility] Start: 10-13-2021 End: 10-13-2021 ambulatory Laurent Clark Other [employer] Other Start: 10-13-2021 Telephone encounter Laurent Clark [facility] Start: 10-06-2021 End: 10-06-2021 ambulatory Tondra Mapus Other [employer] Other Start: 10-06-2021 Telephone encounter Tondra Mapus [facility] Start: 09-23-2021 (DM) Diabetes Tondra Mapus [facility] Start: 09-23-2021 End: 09-23-2021 ambulatory Tondra Mapus Other [employer] Other Start: 08-12-2021 End: 08-12-2021 ambulatory Laurent Clark Other [employer] Other Start: 08-12-2021 Office outpatient visit 25 minutes Laurent Clark [facility] Start: 08-05-2021 End: 08-05-2021 ambulatory Tondra Mapus Other [employer] Other Start: 08-05-2021 Telephone encounter Tondra Mapus [facility] Start: 07-16-2021 End: 07-16-2021 ambulatory Tondra Mapus Other [employer] Other Start: 07-16-2021 Telephone encounter Tondra Mapus [facility] Start: 07-08-2021 End: 07-08-2021 ambulatory Christosdiogo Melaras Other [employer] Other Start: 07-08-2021 Office outpatient ne w 30 minutes Mickey Lovett [facility] Start: 06-18-2021 End: 06-18-2021 ambulatory Tondra Mapus Other [employer] Other Start: 06-18-2021 Telephone encounter Tondra Mapus [facility] Start: 05-12-2021 End: 05-13-[address] RAIN HEBERT Facility:[facility]1 Start: 05-09-2021 End: 05-09-[address] NASRA CALDWELL Facility:[facility]1 Start: 05-08-2021 End: 05-08-2021 ambulatory Tondra Mapus Other [employer] Other Start: 05-08-2021 Telephone encounter Tondra Mapus [facility] Start: 05-07-2021 End: 05-08-2021 ambulatory LAURENT CLARK Facility:[facility]1 Start: 05-07-2021 Telephone encounter Laurent Clark [facility] Start: 05-05-2021 End: 05-05-2021 ambulatory Laurent Clark Other [employer] Other Start: 05-05-2021 Telephone encounter Laurent Clark [facility] Start: 04-16-2021 End: 04-16-2021 ambulatory Tondra Mapus Other [employer] Other Start: 04-16-2021 Telephone encounter Tondra Mapus [facility] Start: 04-09-2021 End: 04-09-2021 ambulatory Laurent Clakr Other [employer] Other Start: 04-09-2021 Telephone encounter Laurent Clark [facility] Start: 04-08-2021 End: 04-08-2021 ambulatory Laurent Clark Other [employer] Other Start: 04-08-2021 Office outpatient visit 25 minutes Laurent Clark [facility] Start: 03-30-2021 End: 03-31-2021 ambulatory MARGARITA KEENE Facility:[facility]1 Start: 03-18-2021 End: 03-18-2021 ambulatory Laurent Amber Other [employer] Other Start: 03-18-2021 Telephone encounter Laurent Amber [facility] Start: 02-19-2021 End: 02-19-2021 ambulatory Tondra Mapus Other [employer] Other Start: 02-19-2021 Telephone encounter Tondra Mapus [facility] Start: 02-18-2021 End: 02-19-2021 ambulatory TONDRA MAPUS Facility:[facility]1 Start: 02-11-2021 (DM) Diabetes Tondra Mapus [facility] Start: 02-11-2021 End: 02-11-2021 ambulatory Tondra Mapus Other [employer] Other Start: 12-18-2020 Telephone encounter Tondra Mapus [facility] Start: 12-04-2020 End: 12-05-[address] RAIN HEBERT Facility:[facility]1 Start: 10-29-2020 End: 10-30-2020 ambulatory LAURENT CLARK JR Facility:[facility]1 Start: 10-16-2020 End: 10-18-2020 ambulatory DC Facility:[facility] Start: 10-02-2020 End: 10-02-2020 ambulatory FLORIN RITTER Facility:[facility]1 Start: 09-04-2020 End: 09-04-[address] NASRA CALDWELL Facility:[facility]1 Procedures Date Procedure Procedure Detail Performing Clinician Start: 08-23-2024 Plain radiography of pelvis Chapis Lewis [employer] Work Phone: Start: 08-23-2024 Plain X-ray of right femur Chapis Lewis N P[facility] Work Phone: Start: 08-20-2024 Respiratory Panel (PCR) Chapis Lewis [employer] Work Phone: Start: 08-19-2024 CT of head without contrast Chapis Joshua [employer] Work Phone: Start: 08-19-2024 Computed tomography of abdomen and pelvis with contrast Chapis Joshua [employer] Work Phone: Start: 07-26-2024 Plain radiography of pelvis Chapis Joshua [employer] Work Phone: Start: 07-26-2024 Plain X-ray of right femur Chapis Joshua N [facility] Work Phone: Start: 07-10-2024 Plain radiography of pelvis Chapis Joshua [employer] Work Phone: Start: 07-10-2024 Plain X-ray of right femur Chapis Joshua N [facility] Work Phone: Start: 07-04-2024 Duplex scan of lower limb veins Chapis Hari wab [employer] Work Phone: Start: 07-03-2024 Aerobic microbial culture Chapis Joshua [employer] Work Phone: Start: 07-03-2024 Nasal Screen MRSA/MSSA Chapis Joshua [employer] Work Phone: Start: 07-02-2024 Plain radiography of pelvis Chapis Joshua [employer] Work Phone: Start: 07-02-2024 Plain X-ray of right femur Chapis Joshua N P[facility] Work Phone: Start: 07-02-2024 Plain X-ray of right hip Chapis Joshua [employer] Work Phone: Start: 07-01-2024 Antibody screen Teodora Fajardo Comment on above: Order Comment: Transfuse now? Y Number o f units to transfuse now? 2 Comment Hold 1 unit for OR procedure tomorrow Transfuse now? N Transfuse now? Y Number of units to transfuse now? 1 Result Comment: PERF ORMED BY: [facility] [address] [place] [address] PATHOLOGIST BUILDING ENGINEER ADALBERTO MARTEL M.D. Start: 06-30-2024 Plain X-ray of right tibia and right fibula Chapis Joshua [employer] Work Phone: Start: 06-30-2024 X-ray of right ankle Chapis Villagomezab [employer] Work Phone: Start: 06-30-2024 CT cervical spine without contrast Chapis Villagomezab [employer] Work Phone: Start: 06-30-2024 CT of head without contrast Chapis Villagomezab [employer] Work Phone: Start: 06-30-2024 Plain chest X-ray Chapis Villagomezab [employer] Work Phone: Start: 06-30-2024 Plain radiography of pelvis Chapis Villagomezab [employer] Work Phone: Start: 06-30-2024 Plain X-ray of right femur Chapis Villagomezab N P-C Work Phone: Start: 01-18-2024 3d rendering w/interp&postproc diff work station Jena Cohen MD Work Phone: Start: 01-18-2024 Mri abdomen w/o & w/contrast material Jena Cohen MD Work Phone: Start: 07-05-2023 Dup-scan artl aisha abdl/pel/scrot&/rpr orgn com Sallie STOKES-Jona Work Phone: Start: 07-05-2023 US ABD LIVER VASCULAR Sallie STOKES-C Work Phone: Start: 05-29-2023 H/O: surgery S/P TIPS (transjugular intrahepatic portosystemic shunt) Us 2 Work Phone: Start: 05-24-2023 Investigation of transfusion reaction [employer] Chapis Joshua Work Phone: Start: 05-24-2023 Ultrasonography guided puncture and aspiration of abdomen [employer] Chapis Joshua Work Phone: Start: 05-24-2023 Computed tomography of abdomen and pelvis with contrast [employer] Chapis Joshua Work Phone: Start: 02-02-2023 Esophagogastroduodenoscopy JESSIE botello Work Phone: Start: 10-27-2022 Esophagogastroduodenoscopy MD Rain Hebert Work Phone: Start: 10-20-2022 Ultrasound elastography of liver MD Rain Hebert Work Phone: Start: 07-01-2022 Destruction internal hemorrhoid thermal energy MD Rain Hebert Work Phone: Start: 10-15-2020 Antibody screen Comment on above: Performed By: #### [id number] #### [address] Start: 10-15-2020 Abdom paracentesis dx/ther w/imaging guidance ADALBERTO VOGEL Colonoscopy Chapis Lewis Esophagogastroduoden oscopic electrohydraulic lithotripsy of bezoar in stomach Chapis Lewis H/O: surgery S/P TIPS (transjugular intrahepatic portosystemic shunt) [facility] Work Phone: H/O: surgery S/P TIPS (transjugular intrahepatic portosystemic shunt) [facility] 5 Work Phone: Plan of Treatment Date Care Activity Detail Author Start: 10-23-2025 LIPID SCREEN LIPID SCREEN [facility] Start: 08-23-2024 Plain radiography of pelvis XR pelvis 1-2V [facility] Start: 08-23-2024 Plain X-ray of right femur XR femur RT 2V* [facility] Start: 08-23-2024 XR Femur - right 2 Views [facility] Start: 08-23-2024 XR Pelvis 1 or 2 Views [facility] Start: 08-21-2024 [facility] Start: 08-19-2024 [facility] Start: 08-19-2024 Hospital admission [facility] Start: 08-19-2024 Bacteria identified in Blood by Culture Blood Culture [facility] Start: 07-26-2024 Plain radiography of pelvis XR pelvis 1-2V [facility] Start: 07-26-2024 Plain X-ray of right femur XR femur RT 2V* [facility] Start: 07-26-2024 XR Femur - right 2 Views [facility] Start: 07-26-2024 XR Pelvis 1 or 2 Views [facility] Start: 07-12-2024 End: 07-12-2024 Patient encounter procedure 07/12/2024 1:00 PM EDT Office Visit Gastroenterology [address] [address] Jena Cohen MD [address] [place] [address] biliary cirrhosis f/u - ok per pt Sujit R [facility]SS Gastroenterology Comment on above: biliary cirrhosis f/u - ok per pt Sujit R PSS Start: 07-09-2024 [facility] Start: 07-08-2024 [facility] Start: 07-03-2024 Administration of prophylactic treatment [facility] Start: 07-03-2024 Referral to rehabilitation physician [facility] Start: 07-01-2024 aPTT in Platelet poor plasma by Coagulation assay [facility] Start: 07-01-2024 [facility] Start: 06-30-2024 Consultation [facility] Start: 06-30-2024 [facility] Start: 06-30-2024 Hospital admission [facility] Start: 06-30-2024 Reposition Right Hip Joint with Internal Fixation Device, Percutaneous Approach Reposition Right Hip Joint with Internal Fixation Device, Percutaneous Approach [facility] Start: 05-23-2024 Diabetic foot examination Diabetic Foot Exam [facility] Start: 04-01-2024 DIABETES SCREEN DIABETES SCREEN [facility] Start: 01-18-2024 End: 04-18-2024 [id number] [Mass/volume] in Serum or Plasma ALPHA FETOPROTEIN Lab Routine 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) Expected: 01/18/2024, Expires: 04/18/2024 [facility] Comment on above: Expected: 01/18/2024, Expires: Start: 01-18-2024 End: 01-17-2025 Basic metabolic 2000 panel - Serum or Plasma BASIC METABOLIC PANEL Lab Routine 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) Expected: 01/18/2024, Expires: 01/17/2025 [facility] Comment on above: Expected: 01/18/2024, Expires: Start: 01-18-2024 End: 01-17-2025 CBC W Auto Differential panel - Blood COMPLETE BLOOD COUNT AND DIFFERENTIAL Lab Routine 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) Expected: 01/18/2024, Expires: 01/17/2025 [facility] Comment on above: Expected: 01/18/2024, Expires: Start: 01-18-2024 End: 01-17-2025 Hepatic function 2000 panel - Serum or Plasma HEPATIC FUNCTION PNL Lab Routine 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) Expected: 01/18/2024, Expires: 01/17/2025 [facility] Work Phone: Comment on above: Expected: 01/18/2024, Expires: Start: 01-18-2024 End: 01-17-2025 PT panel - Platelet poor plasma by Coagulation assay PROTHROMBIN TIME Lab Routine 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) Expected: 01/18/2024, Expires: 01/17/2025 [facility] Comment on above: Expected: 01/18/2024, Expires: Start: 01-18-2024 End: 04-18-2024 Retinol [Mass/volume] in Serum or Plasma VITAMIN A/RETINOL Lab Routine 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) Expected: 01/18/2024, Expires: 04/18/2024 [facility] Comment on above: Expected: 01/18/2024, Expires: Start: 01-18-2024 End: 01-18-2024 Patient encounter procedure 01/18/2024 11:30 AM EST Office Visit Gastroenterology [address] [place] [address] Jena Cohen MD [address] [place] [address] Primary Biliary Cirrhosis Follow Up Gastroenterology Comment on above: Primary Biliary Cirrhosis Follow Up Start: 01-18-2024 End: 01-18-2024 Patient encounter procedure Radiology Comment on above: Encounter for screening for osteoporosis [Z13.820] DXA Start: 01-18-2024 End: 01-18-2024 Patient encounter procedure MRI Q Comment on above: MRI 3D POST PROCESSING DXA Start: 01-05-2024 End: 08-03-2024 US.doppler Abdominal vessels US ABD LIVER VASCULAR Radiology Routine Encounter for screening for osteoporosis Expected: 01/05/2024, Expires: 08/03/2024 [facility] Comment on above: Expected: 01/05/2024, Expires: Start: 11-27-2023 Hemoglobin A1c measurement HbA1C [facility] Start: 10-31-2023 Covid-19 Vaccine ( season) Covid-19 Vaccine () [facility] Start: 10-31-2023 Influenza vaccination [facility] Start: 07-20-2023 End: 07-20-2023 ambulatory 07/20/2023 1:30 PM EDT Radiology Radiology [address] [address] F/U (EM) prepped BT Radiology Comment on above: F/U (EM) prepped BT Start: 07-16-2023 [facility] Start: 06-11-2023 End: 09-10-2023 CBC W Auto Differential panel - Blood COMPLETE BLOOD COUNT AND DIFFERENTIAL Lab Routine 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) Expected: 06/11/2023, Expires: 09/10/2023 [facility] Work Phone: Comment on above: Expected: 06/11/2023, Expires: Start: 06-11-2023 End: 09-10-2023 Comprehensive metabolic 2000 panel - Serum or Plasma COMPREHENSIVE METABOLIC PANEL Lab Routine 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) Expected: 06/11/2023, Expires: 09/10/2023 [facility] Work Phone: Comment on above: Expected: 06/11/2023, Expires: 4 Start: 06-11-2023 End: 09-10-2023 Hepatitis B virus surface Ab [Presence] in Serum HEPATITIS B SURFACE ANTIBODY Lab Routine 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) Expected: 06/11/2023, Expires: 09/10/2023 [facility] Work Phone: Comment on above: Expected: 06/11/2023, Expires: 4 Start: 06-11-2023 End: 09-10-2023 PT panel - Platelet poor plasma by Coagulation assay PROTHROMBIN TIME Lab Routine 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) Expected: 06/11/2023, Expires: 09/10/2023 [facility] Work Phone: Comment on above: Expected: 06/11/2023, Expires: Start: 05-24-2023 Drainage of Peritoneal Cavity, Percutaneous Approach Drainage of Peritoneal Cavity, Percutaneous Approach [facility] Start: 05-24-2023 Inspection of Upper Intestinal Tract, Via Natural or Artificial Opening Endoscopic Inspection of Upper Intestinal Tract, Via Natural or Artificial Opening Endoscopic [facility] Start: 05-24-2023 [facility] Start: 05-24-2023 Referral to oracle fusion middleware architect [facility] Start: 05-24-2023 Hospital admission [facility] Start: 05-24-2023 Sleep disorder assessment [facility] Start: 05-24-2023 [facility] Start: 05-24-2023 Computed tomography of abdomen and pelvis with contrast CT abdomen pelvis w con [facility] Start: 05-24-2023 CT Abdomen and Pelvis W contrast IV [facility] Start: 05-24-2023 [facility] Start: 03-01-2023 Behavioral Health Screening Behavioral Health Screening [facility] Start: 02-02-2023 [facility] Start: 11-17-2022 End: 01-17-2023 CBC W Auto Differential panel - Blood CBC + DIFF Lab Routine 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) Expected: 11/17/2022 (Approximate), Expires: 01/17/2023 [facility] Work Phone: Comment on above: Expected: 11/17/2022 (Approximate), Expi res: 01/17/2023 Start: 11-17-2022 End: 01-17-2023 Comprehensive metabolic 2000 panel - Serum or Plasma COMP METABOLIC PANEL Lab Routine 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) Expected: 11/17/2022 (Approximate), Expires: 01/17/2023 [facility] Work Phone: Comment on above: Expected: 11/17/2022 (Approximate), Expi res: 01/17/2023 Start: 10-30-2022 Covid-19 Vaccine () Covid-19 Vaccine () [facility] Start: 10-30-2022 Influenza vaccination INFLUENZA (#1) [facility] Start: 10-27-2022 [facility] Start: 10-20-2022 [facility] Start: 08-17-2022 End: 10-17-2022 PT panel - Platelet poor plasma by Coagulation assay PROTHROMBIN TIME/PT Lab Routine 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) Expected: 08/17/2022 (Approximate), Expires: 10/17/2022 [facility] Work Phone: Comment on above: Expected: 08/17/2022 (Approximate), Expi res: 10/17/2022 Start: 07-01-2022 [facility] Start: 2022 RSV Vaccine (1 - 1-dose 60+ series) RSV Vaccine (1 - 1-dose 60+ series) [facility] Start: 2022 RSV Vaccine (1 - Risk 60-74 years 1-dose series) RSV Vaccine (1 - Risk 60-74 years 1-dose series) [facility] Start: 03-01-2022 DEPRESSION ASSESSMENT DEPRESSION ASSESSMENT [facility] Start: 10-23-2021 Hepatitis B surface antibody level LDL Cholesterol [facility] Start: 07-22-2021 COVID-19 VACCINE (4 - Booster for Pfizer series) COVID-19 VACCINE (4 - Booster for Pfizer series) [facility] Start: 07-22-2021 COVID-19 VACCINE (4 - Pfizer series) COVID-19 VACCINE (4 - Pfizer series) [facility] Start: 11-20-2020 HEPATITIS B (2 of 2 - CpG risk 2-dose series) HEPATITIS B (2 of 2 - CpG risk 2-dose series) [facility] Start: 11-20-2020 Hepatitis B Vaccine (2 of 2 - CpG risk 2-dose series) Hepatitis B Vaccine (2 of 2 - CpG risk 2-dose series) [facility] Start: 11-23-2018 Pneumococcal vaccination Pneumococcal Vaccine (2 of 2 - PCV) [facility] Start: 11-23-2018 Pneumococcal Vaccine: 50+ (2 of 2 - PCV) Pneumococcal Vaccine: 50+ (2 of 2 - PCV) [facility] Start: 2012 SHINGRIX VACCINE (1 of 2) SHINGRIX VACCINE (1 of 2) [facility] Start: 2007 COLOGUARD (FIT-DNA) COLOGUARD (FIT-DNA) [facility] Start: 2007 Colonoscopy COLONOSCOPY [facility] Start: 2007 COLORECTAL CANCER SCREENING COLORECTAL CANCER SCREENING [facility] Start: [address] COLONOGRAPHY [facility] Start: 2007 FECAL OCCULT BLOOD FECAL OCCULT BLOOD [facility] Start: 2007 Screening for malignant neoplasm of colon [facility] Start: 2007 SIGMOIDOSCOPY SIGMOIDOSCOPY [facility] Start: 2002 Mammography MAMMOGRAM [facility] Start: 2002 Screening for malignant neoplasm of breast Mammogram Screening [facility] Start: 1992 HPV TESTING HPV TESTING [facility] Start: 1992 Screening for malignant neoplasm of cervix HPV Testing [facility] Start: 1983 PAP TESTING PAP TESTING [facility] Start: 1983 Screening for malignant neoplasm of cervix [facility] Start: 1981 Urine microalbumin profile [facility] Start: 1980 Annual PCP Team Chronic Disease Visit Annual PCP Team Chronic Disease Visit [facility] Start: 1980 Anxiety Screening Anxiety Screening [facility] Start: 1980 Depression Screening Depression Screening [facility] Start: 1972 Glaucoma screening Dilated Retinal Exam [facility] Start: 1972 Hepatitis B screening Urine Albumin:Creatinine Ratio [facility] Start: 1968 PNEUMOCOCCAL (1 - PCV) PNEUMOCOCCAL (1 - PCV) [facility] End: 07-04-2024 [id number] [Mass/volume] in Serum or Plasma ALPHA FETOPROTEIN Lab Routine Encounter for screening for osteoporosis 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 tumor marker [Mass/volume] in Serum or Plasma [facility] [id number]. 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) Every 3 months for 4 Occurrences starting 07/05/2023 until 07/04/2024 [facility] Comment on above: Every 3 months for 4 Occurrences startin g 07/05/2023 until 07/04/2024 End: 07-04-2024 CBC W Auto Differential panel - Blood COMPLETE BLOOD COUNT AND DIFFERENTIAL Lab Routine Encounter for screening for osteoporosis 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) Every 3 months for 4 Occurrences starting 07/05/2023 until 07/04/2024 [facility] Comment on above: Every 3 months for 4 Occurrences startin g 07/05/2023 until 07/04/2024 Comprehensive metabo lic 2000 panel - Serum or Plasma [facility] End: 08-03-2024 DXA Skeletal system.axial Views for bone density DXA-AXIAL SKELETON Radiology Routine Encounter for screening for osteoporosis 1 Occurrences starting 07/05/2023 until 08/03/2024 [facility] Work Phone: Comment on above: 1 Occurrences starting 07/05/2023 until 08/03/2024 End: 07-04-2024 Hepatic function 2000 panel - Serum or Plasma HEPATIC FUNCTION PNL Lab Routine Encounter for screening for osteoporosis 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) Every 3 months for 4 Occurrences starting 07/05/2023 until 07/04/2024 [facility] Comment on above: Every 3 months for 4 Occurrences startin g 07/05/2023 until 07/04/2024 INR in Platelet poor plasma by Coagulation assay [facility] End: 08-18-2024 MR Biliary ducts and Pancreatic duct WO and W contrast IV MRI PANC/TRISTAN WO/W IVCON Radiology Routine 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) 1 Occurrences starting 07/20/2023 until 08/18/2024 [facility] Work Phone: Comment on above: 1 Occurrences starting 07/20/2023 until 08/18/2024 End: 08-18-2024 MR Unspecified body region 3D post processing MRI 3D POST PROCESSING Radiology Routine 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) 1 Occurrences starting 07/20/2023 until 08/18/2024 [facility] Comment on above: 1 Occurrences starting 07/20/2023 until 08/18/2024 Patient Education [facility] Work Phone: Patient referral [facility] Work Phone: Prothrombin time (PT) [facility] End: 07-04-2024 PT panel - Platelet poor plasma by Coagulation assay PROTHROMBIN TIME Lab Routine Encounter for screening for osteoporosis 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) Every 3 months for 4 Occurrences starting 07/05/2023 until 07/04/2024 [facility] Comment on above: Every 3 months for 4 Occurrences startin g 07/05/2023 until 07/04/2024 Renal function 1999 panel - Serum or Plasma [facility] Renal function 1999 panel - Serum or Plasma [facility] US.doppler Abdominal vessels US ABD LIVER VASCULAR Radiology Routine S/P TIPS (transjugular intrahepatic portosystemic shunt) 06/03/2023 3:06 PM EDT [facility] Work Phone: US.doppler Unspecifi ed body region US DOPPLER COMPLETE Radiology Routine S/P TIPS (transjugular intrahepatic portosystemic shunt) 06/03/2023 3:06 PM EDT [facility] Work Phone: End: 08-03-2024 US.doppler Unspecified body region US DOPPLER COMPLETE Radiology Routine Encounter for screening for osteoporosis 1 Occurrences starting 07/05/2023 until 08/03/2024 [facility] Comment on above: 1 Occurrences starting 07/05/2023 until 08/03/2024 [facility] Immunizations Immunization Date Immunization Notes Care Provider Lydia bui 10-20-2021 influenza virus vaccine, unspecified formulation Us 2 Work Phone: [facility] 05-27-2021 SARS-CoV-2 mRNA (deimrdcyeak-pxae-gcxar se) vaccine Chapis Joshua [facility] 10-23-2020 Hepatitis B vaccine (recombinant), CpG adjuvanted Moon Roddenberry RESAW FEEDER.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 Work Phone: [facility] 10-23-2020 hepatitis B vaccine, adult dosage Chapis Joshua [facility] 10-23-2020 hepatitis B vaccine, unspecified formulation Moon Roddenberry RESAW FEEDER.CIRCULATION ASSISTANT Work Phone: [facility] 07-24-2020 COVID-19 mRNA, Comirnaty (Pfizer) MD Rain Hebert Work Phone: [facility] 07-03-2020 COVID-19 mRNA, Comirnaty (Pfizer) MD Rain Hebert Work Phone: [facility] 11-01-2019 influenza virus vaccine, unspecified formulation Chapis Joshua [facility] 11-23-2017 influenza virus vaccine, unspecified formulation Chapis Joshua [facility] 11-23-2017 pneumococcal polysaccharide vaccine, 23 valent Chapis Joshua [facility] 11-21-2016 influenza virus vaccine, unspecified formulation Chapis Joshua [facility] 11-06-2015 influenza virus vaccine, unspecified formulation Chapis Joshua [facility] 12-12-2014 influenza virus vaccine, unspecified formulation Chapis Joshua [facility] Payers Date Payer Category Payer Medicare [id number] 2023 Self-pay [id number] 2017 Medicare [id number] 2017 Medicare (Managed Care) O [employer] HMO [id number] 1960 Unknown [id number] 2.16840.1.716212.3.579. 2.647 1960 Unknown [id number] 2.16840.1.330684.3.579. 2.593 1962 Unknown [id number] 2.16.840.1.729618.3.579. 2.593 1962 Unknown [id number] 2.16.840.1.489832.3.579. 2.593 1962 Unknown [id number] 2.16.840.1.389239.3.579. 2.593 1962 Unknown [id number] 2.16.840.1.152025.3.579. 2.593 1962 Unknown [id number] 2.16.840.1.918387.3.579. 2.593 1962 Unknown [id number] 2.16.840.1.025158.3.579. 2.593 1962 Unknown [id number] 2.16.840.1.262420.3.579. 2.593 1962 Unknown [id number] 2.16.840.1.126584.3.579. 2.593 1962 Unknown [id number] 2.16.840.1.028814.3.579. 2.727 1962 Unknown [id number] 2.16.840.1.123556.3.579. 2.727 1962 Unknown [id number] 2.16.840.1.566343.3.579. 2.727 1962 Unknown [id number] 2.16.840.1.697047.3.579. 2.727 1962 Unknown [id number] 2.16.840.1.117731.3.579. 2.727 1962 Unknown [id number] 2.16.840.1.202367.3.579. 2.727 1962 Unknown [id number] 2.16.840.1.704625.3.579. 2.727 1962 Unknown [id number] 2.16.840.1.159950.3.579. 2.727 1962 Unknown [id number] 2.16.840.1.627763.3.579. 2.727 1962 Unknown [id number] 2.16.840.1.539359.3.579. 2.727 1959 Unknown [id number] Unknown [id number] Unknown HCAP/HFA/FAP Active [id number] Unknown [id number] 2.16.840.1.410169.3.579. 2.531 Unknown [id number] 2.16.840.1.984253.3.579. 2.531 Unknown [id number] 2.16.840.1.510467.3.579. 2.531 Unknown [id number] 2.16.840.1.839560.3.579. 2.531 Unknown [id number] 2.16.840.1.728536.3.579. 2.531 Unknown [id number] 2.16.840.1.984471.3.579. 2.531 Unknown [id number] 2.16.840.1.089906.3.579. 2.531 Social History Date Type Detail Facility Start: 08-17-2022 End: 05-26-2023 Sex Assigned At [facility] Start: 12-25-2020 End: 07-10-2024 Tobacco smoking status MTIS Smoker (finding) [facility] Start: 1960 Sex Assigned At Female [facility] Start: 08-17-2022 End: 08-19-2024 Tobacco smoking status [facility] Smokes tobacco daily [facility] History of tobacco use Cigarette Smoker C [facility] Start: 08-17-2022 End: 05-26-2023 Cigarettes smoked current (pack per day) - Reported 1 [facility] Start: 08-17-2022 End: 01-18-2024 Tobacco use and exposure Smokeless tobacco non-user [facility] Start: 08-17-2022 End: 01-18-2024 Alcohol intake Ex-drinker (finding) [facility] Start: 1960 Sex Assigned At Not on file C [facility] National Score (1-10 0), lower number is lower risk 74 [facility] Start: 04-13-2023 Tobacco smoking stat us MTIS Tobacco smoking consumption unknown (finding) [facility] Has the electric, Spock, oil, or water company threatened to shut off services in your home in past 12Mo No [facility] (I/We) worried елена er (my/our) food would run out before (I/we) got money to buy more. Sometimes true [facility] Start: 01-13-2024 Tobacco smoking status Heavy t obacco smoker (finding) [facility] Start: 06-30-2024 End: 07-27-2024 Sex Female (finding) [facility] Start: 08-20-2024 SDOH Follow up SDOH Follow up [facility] Work Phone: Start: 08-30-2024 Tobacco smoking status Light t obacco smoker (finding) [facility] Sexual Orientation [facility] Medical Equipment Procedure Code Equipment Code Equipment Origin al Text Equipment Identifier Dates ORIF, hip Orthopaedic bone screw, non-bioabsorbable, non-sterile ()[id number] FDA Start: 07-02-2024 ORIF, hip Femur nail, sterile ( [id number] FDA Start: 07-02-2024 ORIF, hip Spiral blade [id number] FDA Start: 07-02-2024 [id number] Start: 08-23-2013 Comment on above: before meals and at bedtime. Use as instructed lancets (OneTouc h Delica Plus Lancet) Start: 04-18-2023 lancets (OneTouc h Delica Plus Lancet) Start: 04-18-2023 Coil Embl 14mmx4 0cm Conc 3d - [id number] Start: 05-28-2023 Coil Embl 14mmx4 0cm Conc 3d - [id number] Start: 05-28-2023 Stent Endopros 8 cm 8-10mm [place] - [id number] Start: 05-28-2023 lancets (OneTouc h Delica Plus Lancet) Start: 04-18-2023 End: 05-24-2023 lancets (OneTouc h Delica Plus Lancet) Start: 04-18-2023 End: 05-24-2023 lancets (OneTouc h Delica Plus Lancet) Start: 04-18-2023 End: 05-24-2023 Blood Sugar Diagnostic (Onetouch Ultra Test) strip Start: 10-05-2023 lancets (OneTouc h Delica Plus Lancet) Start: 04-18-2023 End: 05-24-2023 Blood Sugar Diagnostic (Onetouch Ultra Test) strip Start: 10-05-2023 lancets (OneTouc h Delica Plus Lancet) Start: 04-18-2023 End: 05-24-2023 Blood Sugar Diagnostic (Onetouch Ultra Test) strip Start: 10-05-2023 lancets (OneTouc h Delica Plus Lancet) Start: 04-18-2023 End: 05-24-2023 Blood Sugar Diagnostic (Onetouch Ultra Test) strip Start: 10-05-2023 lancets (OneTouc h Delica Plus Lancet) Start: 04-18-2023 End: 05-24-2023 Blood Sugar Diagnostic (Onetouch Ultra Test) strip Start: 10-05-2023 lancets (OneTouc h Delica Plus Lancet) Start: 04-18-2023 End: 05-24-2023 Blood Sugar Diagnostic (Onetouch Ultra Test) strip Start: 10-05-2023 lancets (OneTouc h Delica Plus Lancet) Start: 04-18-2023 End: 05-24-2023 Blood Sugar Diagnostic (Onetouch Ultra Test) strip Start: 10-05-2023 lancets (OneTouc h Delica Plus Lancet) Start: 04-18-2023 End: 05-24-2023 Blood Sugar Diagnostic (Onetouch Ultra Test) strip Start: 10-05-2023 Blood Sugar Diagnostic strip Start: 08-21-2024 Lancets misc Start: 08-21-2024 Pen Needle, Diabetic (Ulticare Pen Needle) 31 gauge x 3/16 Needle Start: 08-21-2024 lancets (OneTouc h Delica Plus Lancet) Start: 04-18-2023 End: 05-24-2023 Blood Sugar Diagnostic (Onetouch Ultra Test) strip Start: 10-05-2023 Blood Sugar Diagnostic strip Start: 08-21-2024 Lancets misc Start: 08-21-2024 Pen Needle, Diabetic (Ulticare Pen Needle) 31 gauge x 3/16 Needle Start: 08-21-2024 lancets (OneTouc h Delica Plus Lancet) Start: 04-18-2023 End: 05-24-2023 Goals Date Patient Goal Desired Activity /State Functional Status Date Assessment Result Facility 08-21-2024 Functional status Patient at Baseline [facility] Work Phone: 07-08-2024 Functional status Patient is Pro gressing Toward Baseline [facility] Work Phone: 05-24-2023 Functional status Patient is Pro gressing Toward Baseline [facility] Work Phone: Mental Status Date Assessment Result Facility 08-21-2024 Cognitive function Cognitive Sta tus Patient at Baseline [facility] Work Phone: 07-08-2024 Cognitive function Cognitive Sta tus Patient is Progressing Toward Baseline [facility] Work Phone: 05-24-2023 Cognitive function Cognitive Sta tus Patient is Progressing Toward Baseline [facility] Work Phone: Clinical Notes 10-19-2020 to 07-08-2024 Note Date & Type Note Facility 07-08-2024 Discharge summary [facility] 07-05-2024 Progress note Note Date/Time July 05, 2024 8:40pm [facility] [address] [place] [address] Hospitalist Progress Note Signed Patient: Teresa Lyle MR#: [id number] : 1960 Acct:[id number] Age/Sex: 64 / F Adm Date: 5 Loc: 4N Room: [address] [place] [address] Type: ADM IN Attending Dr: Digna Roberto MD Copies to: ~ Date of Service: 07/05/2024 Subjective Subjective Narrative: Patient seen and examined. Resting in bed. Ongoing right hip pain, edema in leg. Adequate intake. Nursing with no concerns, bowel regimen held with looserstools. Insurance denied inpatient rehab, referral has been sent to facility per case management. Exam Physical Exam Vital Signs: Temp Pulse Resp BP Pulse Ox O2 Del Method O2 Flow Rate 99.8 F H 103 H 16 132/66 99 Room Air 8 07/05/24 08:00 07/05/24 08:00 07/05/24 08:00 07/05/24 08:00 07/05/24 08:00 07/05/24 08:00 07/02/24 09:20 Narrative: CONST- alert, in bed, elderly female, legally blind CARD- RRR no abnormal heart tones PULM- dimin without wheeze or rhonchi, RA ABD- S/NT, NABS EXTREM- 1+RLE edema, calves nontender Skin?right hip surgical dressing in place site not seen. Umbilical dressing present Objective Lab Results 07/05/24 04:47 07/05/24 04:47 Microbiology Results Microbiology 07/03/24 10:45 Umbilical Superficial Wound Culture - Final Heavy Normal Skin Hortencia 2 Days Meds Allergies and Active Meds Allergies No Known Allergies Allergy (Verified 06/30/24 19:20) Active Meds: Active Medications Generic Name Dose Route Start Last Admin Trade Name Freq PRN Reason Stop Dose Admin Acetaminophen 650 mg 06/30/24 22:32 07/02/24 13:44 Acetaminophen 325 Mg Tablet PO 06/30/25 21:59 650 mg Q6HR PRN Administration Pain Scale 1 - 3 or fever Atorvastatin Calcium 10 mg 07/01/24 09:00 07/05/24 08:20 Atorvastatin 10 Mg Tablet PO 07/01/25 08:59 10 mg DAILY HARI Administration Dextrose 0 gm 06/30/24 22:05 Dextrose 50% In Water 25 Gm/50 Ml Syringe IV-PUSH 06/30/25 22:04 PRN PRN Hypoglycemia Enoxaparin Sodium 40 mg 07/05/24 10:00 Enoxaparin 40 Mg/0.4 Ml Syringe SUBCUT 07/05/25 09:59 DAILY@1000 HARI Furosemide 20 mg 07/01/24 09:00 07/04/24 08:57 Furosemide 20 Mg Tablet PO 07/01/25 08:59 20 mg DAILY HARI Administration Glucose 0 gm 06/30/24 22:05 Dextrose 40% Gel 15 Gm Tube PO 06/30/25 22:04 PRN PRN Hypoglycemia Hydromorphone HCl 0.5 mg 06/30/24 22:00 07/04/24 02:28 Hydromorphone 0.5 Mg/0.5 Ml Syringe IV-PUSH 0.5 mg Q4H PRN Administration Pain Scale 8 - 10 Ceftriaxone Sodium 1 gm in 50 mls @ 100 mls/hr 07/03/24 15:30 07/04/24 17:06 Rocephin IV 100 mls/hr Q24H HARI Administration Insulin Aspart 0 units 07/01/24 08:00 07/05/24 08:19 Insulin Aspart 300 Units/3 Ml SUBCUT 07/01/25 07:59 4 units TID.WM.HS HARI Administration Protocol Insulin Aspart 4 units 07/01/24 11:30 07/05/24 08:19 Insulin Aspart 300 Units/3 Ml SUBCUT 07/01/25 11:29 4 units TID.AC HARI Administration Insulin Glargine 24 units 07/01/24 09:00 07/05/24 08:19 Insulin Glargine 300 Units/3 Ml Insuln.Pen SUBCUT 07/01/25 08:59 24 units DAILY HARI Administration Lactulose 10 gm 06/30/24 22:00 Lactulose 20 Gm/30 Ml Udc PO 06/30/25 21:59 DAILY PRN Constipation Lidocaine HCl 0.1 ml 06/30/24 23:04 Lidocaine 1% 50 Ml Vial INTRADERMA PREOP PRN Venipuncture x 1 Dose Magnesium Oxide 400 mg 07/01/24 09:00 07/05/24 08:20 Magnesium Oxide 400 Mg Tablet PO 07/01/25 08:59 400 mg DAILY HARI Administration Melatonin 5 mg 07/04/24 22:00 07/04/24 21:25 Melatonin 5 Mg Tablet PO 07/04/25 21:59 5 mg QHS HARI Administration Nicotine 1 each 07/01/24 10:50 07/05/24 08:21 Nicotine Patch 21 Mg/24hr 1 Each Patch.Td24 TRANSDERML 08/11/24 09:01 Not Given DAILY HARI Ursodiol 250 Mg 250 mg 07/01/24 09:00 07/05/24 08:21 Tablet PO 07/01/25 08:59 250 mg BID HARI Administration Ondansetron HCl 4 mg 06/30/24 22:00 Ondansetron 4 Mg/2 Ml Vial IV-PUSH 06/30/25 21:59 Q6H PRN Nausea And Vomiting Oxycodone HCl 5 mg 06/30/24 22:00 07/05/24 08:20 Oxycodone Ir 5 Mg Tablet PO 5 mg Q6HR PRN Administration Pain Scale 4 - 7 Pantoprazole Sodium 40 mg 07/01/24 09:00 07/05/24 08:21 Pantoprazole 40 Mg Tablet.Dr PO 07/01/25 08:59 40 mg DAILY HARI Administration Polyethylene Glycol 17 gm 07/01/24 09:00 07/05/24 08:21 Polyethylene Glycol 3350 17 Gm Powd.Pack PO 07/01/25 08:59 Not Given TID HARI Sennosides 8.6 mg 07/01/24 09:00 07/05/24 08:21 Sennosides 8.6 Mg Tablet PO 07/01/25 08:59 Not Given BID HARI Sodium Chloride 0 ml 06/30/24 19:23 07/05/24 09:35 Sodium Chloride 0.9 % 10 Ml Syringe IV-PUSH 06/30/25 19:22 10 ml PRN PRN Administration Flush Sodium Chloride 0 ml 07/01/24 07:00 Sodium Chloride 0.9 % 10 Ml Syringe IV-PUSH 07/01/25 06:59 PRN PRN Flush Spironolactone 50 mg 07/01/24 09:00 07/05/24 08:21 Spironolactone 50 Mg Tablet PO 07/01/25 08:59 50 mg DAILY HARI Administration A&P - Hospitalist Assessment/Plan (1) Closed right hip fracture: (2) Diabetes: (3) Hyperglycemia: (4) Thrombocytopenia: (5) Primary biliary cholangitis: (6) Tobacco dependence: Plan Closed right intertrochanteric fracture s/p ORIF 07/23 Macrocytic anemia, iron deficient - Orthopedics on consult for further plan of care postop, pain management, bowelregimen - Transfuse 2 units platelets preop, Ferrlecit. 07/04 transfuse 1 unit PRBC - Therapy evaluations postop, plan inpatient rehab pending insurance approval. Probable discharge next 24-48hr - RLE edema/ calf pain- u/s negative for DVT. Enoxaparin for DVT prophylaxis Chronic drainage from prior umbilical hernia repair site?reported approximately 5 years ago at the [facility] - Seen by wound nurses, culture obtained?no growth to date, MRSA swab negative - Surgical consult appreciated with removal of old sutures noted in umbilicus - Ceftriaxone- plan 1 week antibiotic therapy regardless of culture results due to malodorous purulent drainage from site of old/ chronic would, initially IV x3days then will change to PO Hyponatremia -hold furosemide -TSH 1.72, cortisol 8.4. Urine sodium pending Hypomagnesemia resolved - Replete, trend lab T1DM with hyperglycemia, uncontrolled -Glargine, SSIC, A1c 9.4. Insulin increased 07/05 Tobacco dependence -Nicotine replacement, smoking cessation education Chronic conditions 1. PBC/Thrombocytopenia likely due to liver disease- no signs of bleeding, continues spironolactone, furosemide on hold 2. HLD?atorvastatin, ursodiol 3. Legal blindness 4. GERD-pantoprazole Documented By: Sylvia Centeno APRN 09/22 1148 Signed By: <Electronically signed by ALLY Centeno> 07/05/24 1217 <Electronically signed by Digna Roberto MD> 07/05/242039 [facility] Work Phone: [phone] 399-181505-07-2025 [place] [address] Hospitalist Progress Note Signed Patient: Teresa Lyle MR#: [id number] : 1960 Acct:[id number] Age/Sex: 64 / F Adm Date: 5 Loc: Room: [address] [place] [address] Type: ADM IN Attending Dr: Digna Roberto MD Copies to: ~ Date of Service: 07/05/2024 Subjective Subjective Narrative: Patient seen and examined. Resting in bed. Ongoing right hip pain, edema in leg. Adequate intake. Nursing with no concerns, bowel regimen held with looserstools. Insurance denied inpatient rehab, referral has been sent to facility per case management. Exam Physical Exam Vital Signs: Temp Pulse Resp BP Pulse Ox O2 Del Method O2 Flow Rate 99.8 F H 103 H 16 132/66 99 Room Air 8 07/05/24 08:00 07/05/24 08:00 07/05/24 08:00 07/05/24 08:00 07/05/24 08:00 07/05/24 08:00 07/02/24 09:20 Narrative: CONST- alert, in bed, elderly female, legally blind CARD- RRR no abnormal heart tones PULM- dimin without wheeze or rhonchi, RA ABD- S/NT, NABS EXTREM- 1+RLE edema, calves nontender Skin?right hip surgical dressing in place site not seen. Umbilical dressing present Objective Lab Results 07/05/24 04:47 07/05/24 04:47 Microbiology Results Microbiology 07/03/24 10:45 Umbilical Superficial Wound Culture - Final Heavy Normal Skin Hortencia 2 Days Meds Allergies and Active Meds Allergies No Known Allergies Allergy (Verified 06/30/24 19:20) Active Meds: Active Medications Generic Name Dose Route Start Last Admin Trade Name Freq PRN Reason Stop Dose Admin Acetaminophen 650 mg 06/30/24 22:32 07/02/24 13:44 Acetaminophen 325 Mg Tablet PO 06/30/25 21:59 650 mg Q6HR PRN Administration Pain Scale 1 - 3 or fever Atorvastatin Calcium 10 mg 07/01/24 09:00 07/05/24 08:20 Atorvastatin 10 Mg Tablet PO 07/01/25 08:59 10 mg DAILY HARI Administration Dextrose 0 gm 06/30/24 22:05 Dextrose 50% In Water 25 Gm/50 Ml Syringe IV-PUSH 06/30/25 22:04 PRN PRN Hypoglycemia Enoxaparin Sodium 40 mg 07/05/24 10:00 Enoxaparin 40 Mg/0.4 Ml Syringe SUBCUT 07/05/25 09:59 DAILY@1000 HARI Furosemide 20 mg 07/01/24 09:00 07/04/24 08:57 Furosemide 20 Mg Tablet PO 07/01/25 08:59 20 mg DAILY HARI Administration Glucose 0 gm 06/30/24 22:05 Dextrose 40% Gel 15 Gm Tube PO 06/30/25 22:04 PRN PRN Hypoglycemia Hydromorphone HCl 0.5 mg 06/30/24 22:00 07/04/24 02:28 Hydromorphone 0.5 Mg/0.5 Ml Syringe IV-PUSH 0.5 mg Q4H PRN Administration Pain Scale 8 - 10 Ceftriaxone Sodium 1 gm in 50 mls @ 100 mls/hr 07/03/24 15:30 07/04/24 17:06 Rocephin IV 100 mls/hr Q24H HARI Administration Insulin Aspart 0 units 07/01/24 08:00 07/05/24 08:19 Insulin Aspart 300 Units/3 Ml SUBCUT 07/01/25 07:59 4 units TID.WM.HS HARI Administration Protocol Insulin Aspart 4 units 07/01/24 11:30 07/05/24 08:19 Insulin Aspart 300 Units/3 Ml SUBCUT 07/01/25 11:29 4 units TID.AC HARI Administration Insulin Glargine 24 units 07/01/24 09:00 07/05/24 08:19 Insulin Glargine 300 Units/3 Ml Insuln.Pen SUBCUT 07/01/25 08:59 24 units DAILY HARI Administration Lactulose 10 gm 06/30/24 22:00 Lactulose 20 Gm/30 Ml Udc PO 06/30/25 21:59 DAILY PRN Constipation Lidocaine HCl 0.1 ml 06/30/24 23:04 Lidocaine 1% 50 Ml Vial INTRADERMA PREOP PRN Venipuncture x 1 Dose Magnesium Oxide 400 mg 07/01/24 09:00 07/05/24 08:20 Magnesium Oxide 400 Mg Tablet PO 07/01/25 08:59 400 mg DAILY HARI Administration Melatonin 5 mg 07/04/24 22:00 07/04/24 21:25 Melatonin 5 Mg Tablet PO 07/04/25 21:59 5 mg QHS HARI Administration Nicotine 1 each 07/01/24 10:50 07/05/24 08:21 Nicotine Patch 21 Mg/24hr 1 Each Patch.Td24 TRANSDERML 08/11/24 09:01 Not Given DAILY HARI Ursodiol 250 Mg 250 mg 07/01/24 09:00 07/05/24 08:21 Tablet PO 07/01/25 08:59 250 mg BID HARI Administration Ondansetron HCl 4 mg 06/30/24 22:00 Ondansetron 4 Mg/2 Ml Vial IV-PUSH 06/30/25 21:59 Q6H PRN Nausea And Vomiting Oxycodone HCl 5 mg 06/30/24 22:00 07/05/24 08:20 Oxycodone Ir 5 Mg Tablet PO 5 mg Q6HR PRN Administration Pain Scale 4 - 7 Pantoprazole Sodium 40 mg 07/01/24 09:00 07/05/24 08:21 Pantoprazole 40 Mg Tablet. PO 07/01/25 08:59 40 mg DAILY HARI Administration Polyethylene Glycol 17 gm 07/01/24 09:00 07/05/24 08:21 Polyethylene Glycol 3350 17 Gm Powd.Pack PO 07/01/25 08:59 Not Given TID HARI Sennosides 8.6 mg 07/01/24 09:00 07/05/24 08:21 Sennosides 8.6 Mg Tablet PO 07/01/25 08:59 Not Given BID HARI Sodium Chloride 0 ml 06/30/24 19:23 07/05/24 09:35 Sodium Chloride 0.9 % 10 Ml Syringe IV-PUSH 06/30/25 19:22 10 ml PRN PRN Administration Flush Sodium Chloride 0 ml 07/01/24 07:00 Sodium Chloride 0.9 % 10 Ml Syringe IV-PUSH 07/01/25 06:59 PRN PRN Flush Spironolactone 50 mg 07/01/24 09:00 07/05/24 08:21 Spironolactone 50 Mg Tablet PO 07/01/25 08:59 50 mg DAILY HARI Administration A&P - Hospitalist Assessment/Plan (1) Closed right hip fracture: (2) Diabetes: (3) Hyperglycemia: (4) Thrombocytopenia: (5) Primary biliary cholangitis: (6) Tobacco dependence: Plan Closed right intertrochanteric fracture s/p ORIF 07/23 Macrocytic anemia, iron deficient - Orthopedics on consult for further plan of care postop, pain management, bowelregimen - Transfuse 2 units platelets preop, Ferrlecit. 5/6 transfuse 1 unit PRBC - Therapy evaluations postop, plan inpatient rehab pending insurance approval. Probable discharge next 24-48hr - RLE edema/ calf pain- u/s negative for DVT. Enoxaparin for DVT prophylaxis Chronic drainage from prior umbilical hernia repair site?reported approximately 5 years ago at the [facility] - Seen by wound nurses, culture obtained?no growth to date, MRSA swab negative - Surgical consult appreciated with removal of old sutures noted in umbilicus - Ceftriaxone- plan 1 week antibiotic therapy regardless of culture results due to malodorous purulent drainage from site of old/ chronic would, initially IV x3days then will change to PO Hyponatremia -hold furosemide -TSH 1.72, cortisol 8.4. Urine sodium pending Hypomagnesemia resolved - Replete, trend lab T1DM with hyperglycemia, uncontrolled -Glargine, SSIC, A1c 9.4. Insulin increased 07/05 Tobacco dependence -Nicotine replacement, smoking cessation education Chronic conditions 1. PBC/Thrombocytopenia likely due to liver disease- no signs of bleeding, continues spironolactone, furosemide on hold 2. HLD?atorvastatin, ursodiol 3. Legal blindness 4. GERD-pantoprazole Documented By: Sylvia Centeno APRN 09/22 1148 Signed By: 07/05/24 1217 07/05/242039 [facility]05-07-2025 Radiology Diagnostic study note [facility] [place] [address] [place] [address] Ultrasound Report Signed Patient: Teresa Lyle MR#: [id number] : 1960 Acct:[id number] Age/Sex: 64 / F ADM Date: 5 Loc: Room: [address] [place] [address] Type: ADM IN Attending Dr: Digna Roberto MD Ordering Provider: Sylvia Centeno APRN Date of Service: 07/04/24 US/US venous duplex LE RT: edema, calf pain, postop Copies to: ALLY Haddad MD~ RIGHT LOWER EXTREMITY VENOUS DUPLEX INDICATION: Right leg edema, pain and tenderness. Unilateral right lower extremity venous duplex Doppler study was obtained utilizing B-mode, color-flow and spectral Doppler. FINDINGS: The right common femoral, femoral, and popliteal veins showed adequate compressibility, color-flow and augmentation. The right posterior tibial and peroneal veins were compressible, as wellas proximal greater saphenous vein. The contralateral left common femoral vein was compressible with color-flow and augmentation. US/US venous duplex LE RT IMPRESSION: NO EVIDENCE OF DEEP VENOUS THROMBOSIS IN THE RIGHT LOWER EXTREMITY. NO SUPERFICIAL THROMBOPHLEBITISWAS NOTED. Impression dictated by: Harsha Garces MD,FACS,FSVS 07/05/2024 7:38 AM Dictation Location: [place] [address] Tech: Raegan Wright Transcribed By: PWS 07/05/24737 Dictated By: Harsha Garces MD 07/05/2437 Signed By: 07/05/24737 [facility] Work Phone: [phone] Progress note Author Sylvia Centeno [facility] Note Date/Time July 04, 2024 5:18pm [facility] [address] [place] [address] Hospitalist Progress Note Signed Patient: Teresa Lyle MR#: [id number] : 1960 Acct:[id number] Age/Sex: 64 / F Adm Date: 5 Loc: Room: [address] [place] [address] Type: ADM IN Attending Dr: Digna Roberto MD Copies to: ~ Date of Service: 07/02/2024 Subjective Subjective Narrative: Patient seen and examined. Sister is present visiting. Patient is still sleepyafter hip surgery today. She indicates pain is minimal. Liquid lunch is at bedside and she is not interested in eating just yet. Denies any abdominal painor nausea. No shortness of breath or chest pain. Exam Physical Exam Vital Signs: Temp Pulse Resp BP Pulse Ox O2 Del Method O2 Flow Rate 97.8 F 98 16 119/57 L 96 Room Air 8 07/02/24 09:55 07/02/24 09:55 07/02/24 09:55 07/02/24 09:55 07/02/24 09:55 07/02/24 10:56 07/02/24 09:20 Narrative: CONST- alert, in bed, elderly female CARD- RRR no abnormal heart tones PULM- dimin without wheeze or rhonchi, RA ABD- S/NT, NABS EXTREM- no edema BLE, calves nontender Objective Lab Results 07/02/24 06:57 07/01/24 05:50 Meds Allergies and Active Meds Allergies No Known Allergies Allergy (Verified 06/30/24 19:20) Active Meds: Active Medications Generic Name Dose Route Start Last Admin Trade Name Freq PRN Reason Stop Dose Admin Acetaminophen 650 mg 06/30/24 22:32 07/01/24 15:09 Acetaminophen 325 Mg Tablet PO 06/30/25 21:59 650 mg Q6HR PRN Administration Pain Scale 1 - 3 or fever Atorvastatin Calcium 10 mg 07/01/24 09:00 07/02/24 10:39 Atorvastatin 10 Mg Tablet PO 07/01/25 08:59 10 mg DAILY HARI Administration Dextrose 0 gm 06/30/24 22:05 Dextrose 50% In Water 25 Gm/50 Ml Syringe IV-PUSH 06/30/25 22:04 PRN PRN Hypoglycemia Furosemide 20 mg 07/01/24 09:00 07/02/24 10:39 Furosemide 20 Mg Tablet PO 07/01/25 08:59 20 mg DAILY HARI Administration Glucose 0 gm 06/30/24 22:05 Dextrose 40% Gel 15 Gm Tube PO 06/30/25 22:04 PRN PRN Hypoglycemia Hydromorphone HCl 0.5 mg 06/30/24 22:00 07/02/24 04:50 Hydromorphone 0.5 Mg/0.5 Ml Syringe IV-PUSH 0.5 mg Q4H PRN Administration Pain Scale 8 - 10 Lactated Ringer's 1,000 mls @ 50 mls/hr 07/01/24 00:05 07/01/24 21:58 Lactated Ringers IV 07/01/25 00:04 50 mls/hr .Q20H HARI Administration Ferric Sodium Gluconate 110 mls @ 110 mls/hr 07/02/24 09:00 07/02/24 10:47 Complex 125 mg/ Sodium IV 07/05/24 09:01 110 mls/hr Chloride QAM HARI Administration Cefazolin Sodium 1 gm in 50 mls @ 100 mls/hr 07/02/24 14:30 Ancef IV 07/02/24 22:59 Q8H HARI Insulin Aspart 0 units 07/01/24 08:00 07/02/24 11:53 Insulin Aspart 300 Units/3 Ml SUBCUT 07/01/25 07:59 8 units TID.WM.HS HARI Administration Protocol Insulin Aspart 4 units 07/01/24 11:30 07/02/24 11:54 Insulin Aspart 300 Units/3 Ml SUBCUT 07/01/25 11:29 4 units TID.AC HARI Administration Insulin Glargine 24 units 07/01/24 09:00 07/02/24 10:39 Insulin Glargine 300 Units/3 Ml Insuln.Pen SUBCUT 07/01/25 08:59 24 units DAILY HARI Administration Insulin Human Regular 0 unit 07/02/24 09:30 07/02/24 09:34 Insulin Regular, Human 1,000 Unit/10 Ml SUBCUT 07/02/24 12:30 3 unit PROTOCOL HARI Administration Protocol Lactulose 10 gm 06/30/24 22:00 Lactulose 20 Gm/30 Ml Udc PO 06/30/25 21:59 DAILY PRN Constipation Lidocaine HCl 0.1 ml 06/30/24 23:04 Lidocaine 1% 50 Ml Vial INTRADERMA PREOP PRN Venipuncture x 1 Dose Magnesium Oxide 400 mg 07/01/24 09:00 07/02/24 10:38 Magnesium Oxide 400 Mg Tablet PO 07/01/25 08:59 400 mg DAILY HARI Administration Nicotine 1 each 07/01/24 10:50 07/02/24 10:40 Nicotine Patch 21 Mg/24hr 1 Each Patch.Td24 TRANSDERML 08/11/24 09:01 1 each DAILY AHRI Administration Ursodiol 250 Mg 250 mg 07/01/24 09:00 07/02/24 10:39 Tablet PO 07/01/25 08:59 250 mg BID HARI Administration Ondansetron HCl 4 mg 06/30/24 22:00 Ondansetron 4 Mg/2 Ml Vial IV-PUSH 06/30/25 21:59 Q6H PRN Nausea And Vomiting Oxycodone HCl 5 mg 06/30/24 22:00 07/01/24 15:09 Oxycodone Ir 5 Mg Tablet PO 5 mg Q6HR PRN Administration Pain Scale 4 - 7 Pantoprazole Sodium 40 mg 07/01/24 09:00 07/02/24 10:39 Pantoprazole 40 Mg Tablet.Dr PO 07/01/25 08:59 40 mg DAILY HARI Administration Polyethylene Glycol 17 gm 07/01/24 09:00 07/02/24 10:38 Polyethylene Glycol 3350 17 Gm Powd.Pack PO 07/01/25 08:59 17 gm TID HARI Administration Sennosides 8.6 mg 07/01/24 09:00 07/02/24 10:38 Sennosides 8.6 Mg Tablet PO 07/01/25 08:59 8.6 mg BID HARI Administration Sodium Chloride 0 ml 06/30/24 19:23 06/30/24 20:28 Sodium Chloride 0.9 % 10 Ml Syringe IV-PUSH 06/30/25 19:22 10 ml PRN PRN Administration Flush Sodium Chloride 0 ml 07/01/24 07:00 Sodium Chloride 0.9 % 10 Ml Syringe IV-PUSH 07/01/25 06:59 PRN PRN Flush Spironolactone 50 mg 07/01/24 09:00 07/02/24 10:40 Spironolactone 50 Mg Tablet PO 07/01/25 08:59 50 mg DAILY HARI Administration A&P - Hospitalist Assessment/Plan (1) Closed right hip fracture: (2) Diabetes: (3) Hyperglycemia: (4) Thrombocytopenia: (5) Primary biliary cholangitis: (6) Tobacco dependence: Plan Closed right intertrochanteric fracture s/p ORIF 07/23 Macrocytic anemia, iron deficient - Orthopedics on consult for further plan of care postop - Transfuse 2 units platelets preop, Ferrlecit - Therapy evaluations postop - Cefazolin postop per Ortho preference Hypomagnesemia - Replete, trend lab T1DM with hyperglycemia, uncontrolled -Glargine, SSI C, A1c 9.4 Tobacco dependence -Nicotine replacement, smoking cessation education Chronic conditions 1. PBC/Thrombocytopenia likely due to liver disease- no signs of bleeding, continues furosemide and spironolactone 2. HLD?atorvastatin, ursodiol Documented By: Sylvia Centeno APRN 06/23 1220 Signed By: <Electronically signed by ALLY Centeno> 07/02/24 1644 <Electronically signed by Digna Roberto MD> 07/04/24 1710 [facility] Work Phone: [phone]) 528-917305-06-2025 Progress note Author Sylvia Centeno [facility] Note Date/Time July 04, 2024 5:18pm [facility] [address] [place] [address] Hospitalist Progress Note Signed Patient: Teresa Lyle MR#: [id number] : 1960 Acct:[id number] Age/Sex: 64 / F Adm Date: 5 Loc: 4N Room: [address] [place] [address] Type: ADM IN Attending Dr: Digna Roberto MD Copies to: ~ Date of Service: 07/04/2024 Subjective Subjective Narrative: Patient is seen and examined. Her Sister Susanna is present bedside. Patient states she had an omelette for breakfast today. Currently reporting her postoperative pain is 8. On exam she has some edema of the right lower extremity with associated calf tenderness. She offers no other complaints. Nursing staff indicates the patient had some confusion last evening after increased dose of Dilaudid. Exam Physical Exam Vital Signs: Temp Pulse Resp BP Pulse Ox O2 Del Method O2 Flow Rate 97.2 F L 106 H 15 117/56 L 98 Room Air 8 07/04/24 11:50 07/04/24 11:50 07/04/24 11:50 07/04/24 11:50 07/04/24 11:50 07/04/24 09:21 07/02/24 09:20 Narrative: CONST- alert, in bed, elderly female CARD- RRR no abnormal heart tones PULM- dimin without wheeze or rhonchi, RA ABD- S/NT, NABS EXTREM- no edema BLE, calves nontender Skin?right hip surgical dressing in place site not seen. Umbilical dressing present Objective Lab Results 07/04/24 06:26 07/04/24 06:26 Microbiology Results Microbiology 07/03/24 10:45 Umbilical Superficial Wound Culture - Preliminary Moderate Normal Skin Hortencia 1 Day 07/03/24 15:15 Nasal Nasal Screen MRSA/MSSA - Final Meds Allergies and Active Meds Allergies No Known Allergies Allergy (Verified 06/30/24 19:20) Active Meds: Active Medications Generic Name Dose Route Start Last Admin Trade Name Freq PRN Reason Stop Dose Admin Acetaminophen 650 mg 06/30/24 22:32 07/02/24 13:44 Acetaminophen 325 Mg Tablet PO 06/30/25 21:59 650 mg Q6HR PRN Administration Pain Scale 1 - 3 or fever Atorvastatin Calcium 10 mg 07/01/24 09:00 07/04/24 08:57 Atorvastatin 10 Mg Tablet PO 07/01/25 08:59 10 mg DAILY HARI Administration Dextrose 0 gm 06/30/24 22:05 Dextrose 50% In Water 25 Gm/50 Ml Syringe IV-PUSH 06/30/25 22:04 PRN PRN Hypoglycemia Furosemide 20 mg 07/01/24 09:00 07/04/24 08:57 Furosemide 20 Mg Tablet PO 07/01/25 08:59 20 mg DAILY HARI Administration Glucose 0 gm 06/30/24 22:05 Dextrose 40% Gel 15 Gm Tube PO 06/30/25 22:04 PRN PRN Hypoglycemia Hydromorphone HCl 0.5 mg 06/30/24 22:00 07/04/24 02:28 Hydromorphone 0.5 Mg/0.5 Ml Syringe IV-PUSH 0.5 mg Q4H PRN Administration Pain Scale 8 - 10 Lactated Ringer's 1,000 mls @ 50 mls/hr 07/01/24 00:05 07/04/24 08:59 Lactated Ringers IV 07/01/25 00:04 Not Given .Q20H HARI Ferric Sodium Gluconate 110 mls @ 110 mls/hr 07/02/24 09:00 07/04/24 09:02 Complex 125 mg/ Sodium IV 07/05/24 09:01 110 mls/hr Chloride QAM HARI Administration Ceftriaxone Sodium 1 gm in 50 mls @ 100 mls/hr 07/03/24 15:30 07/03/24 15:03 Rocephin IV 100 mls/hr Q24H HARI Administration Sodium Chloride 100 mls @ 20 mls/hr 07/04/24 09:52 0.9% Sodium Chloride 100 Ml IV 07/05/24 09:51 PROTOCOL PRN BLOOD TRANSFUSION Insulin Aspart 0 units 07/01/24 08:00 07/04/24 11:47 Insulin Aspart 300 Units/3 Ml SUBCUT 07/01/25 07:59 8 units TID.WM.HS HARI Administration Protocol Insulin Aspart 4 units 07/01/24 11:30 07/04/24 11:47 Insulin Aspart 300 Units/3 Ml SUBCUT 07/01/25 11:29 4 units TID.AC HARI Administration Insulin Glargine 24 units 07/01/24 09:00 07/04/24 08:14 Insulin Glargine 300 Units/3 Ml Insuln.Pen SUBCUT 07/01/25 08:59 24 units DAILY HARI Administration Lactulose 10 gm 06/30/24 22:00 Lactulose 20 Gm/30 Ml Udc PO 06/30/25 21:59 DAILY PRN Constipation Lidocaine HCl 0.1 ml 06/30/24 23:04 Lidocaine 1% 50 Ml Vial INTRADERMA PREOP PRN Venipuncture x 1 Dose Magnesium Oxide 400 mg 07/01/24 09:00 07/04/24 08:56 Magnesium Oxide 400 Mg Tablet PO 07/01/25 08:59 400 mg DAILY HARI Administration Melatonin 5 mg 07/04/24 22:00 Melatonin 5 Mg Tablet PO 07/04/25 21:59 QHS HARI Nicotine 1 each 07/01/24 10:50 07/04/24 08:59 Nicotine Patch 21 Mg/24hr 1 Each Patch.Td24 TRANSDERML 08/11/24 09:01 Not Given DAILY HARI Ursodiol 250 Mg 250 mg 07/01/24 09:00 07/04/24 08:59 Tablet PO 07/01/25 08:59 250 mg BID HARI Administration Ondansetron HCl 4 mg 06/30/24 22:00 Ondansetron 4 Mg/2 Ml Vial IV-PUSH 06/30/25 21:59 Q6H PRN Nausea And Vomiting Oxycodone HCl 5 mg 06/30/24 22:00 07/04/24 08:57 Oxycodone Ir 5 Mg Tablet PO 5 mg Q6HR PRN Administration Pain Scale 4 - 7 Pantoprazole Sodium 40 mg 07/01/24 09:00 07/04/24 08:57 Pantoprazole 40 Mg Tablet.Dr PO 07/01/25 08:59 40 mg DAILY HARI Administration Polyethylene Glycol 17 gm 07/01/24 09:00 07/04/24 08:56 Polyethylene Glycol 3350 17 Gm Powd.Pack PO 07/01/25 08:59 17 gm TID HARI Administration Sennosides 8.6 mg 07/01/24 09:00 07/04/24 08:57 Sennosides 8.6 Mg Tablet PO 07/01/25 08:59 8.6 mg BID HARI Administration Sodium Chloride 0 ml 06/30/24 19:23 06/30/24 20:28 Sodium Chloride 0.9 % 10 Ml Syringe IV-PUSH 06/30/25 19:22 10 ml PRN PRN Administration Flush Sodium Chloride 0 ml 07/01/24 07:00 Sodium Chloride 0.9 % 10 Ml Syringe IV-PUSH 07/01/25 06:59 PRN PRN Flush Spironolactone 50 mg 07/01/24 09:00 07/04/24 09:00 Spironolactone 50 Mg Tablet PO 07/01/25 08:59 Not Given DAILY HARI Trazodone HCl 25 mg 07/03/24 22:39 Trazodone 50 Mg Tablet PO 07/03/25 22:38 QHS PRN Insomnia A&P - Hospitalist Assessment/Plan (1) Closed right hip fracture: (2) Diabetes: (3) Hyperglycemia: (4) Thrombocytopenia: (5) Primary biliary cholangitis: (6) Tobacco dependence: Plan Closed right intertrochanteric fracture s/p ORIF 07/23 Macrocytic anemia, iron deficient - Orthopedics on consult for further plan of care postop, pain management, bowelregimen - Transfuse 2 units platelets preop, Ferrlecit. 07/04 transfuse 1 unit PRBC - Therapy evaluations postop, plan inpatient rehab pending insurance approval. Probable discharge next 24-48hr - RLE edema/ calf pain- u/s to r/o DVT. Enoxaparin added DVT prophylaxis - 07/04 episode of confusion noted last brian, mentation improved today Chronic drainage from prior umbilical hernia repair site?reported approximately 5 years ago at the [facility] - Seen by wound nurses, culture obtained?pending, MRSA swab negative - Surgical consult appreciated with removal of old sutures noted in umbilicus - Ceftriaxone- plan 1 week antibiotic therapy regardless of culture results due to malodorous purulent drainage from site of old/ chronic would, initially IV x3days then will change to PO Hyponatremia -hold furosemide -lab workup pending Hypomagnesemia - Replete, trend lab T1DM with hyperglycemia, uncontrolled -Glargine, SSIC, A1c 9.4 Tobacco dependence -Nicotine replacement, smoking cessation education Chronic conditions 1. PBC/Thrombocytopenia likely due to liver disease- no signs of bleeding, continues furosemide and spironolactone 2. HLD?atorvastatin, ursodiol 3. Legal blindness 4. GERD-pantoprazole Documented By: Sylvia Centeno APRN 08/23 1225 Signed By: <Electronically signed by ALLY Centeno> 07/04/24 1417 <Electronically signed by Digna Roberto MD> 07/04/24 2028 [facility] Work Phone: [phone] 647-693905-06-2025 [place] [id number] Progress Note Signed Patient: Teresa Lyle MR#: [id number] : 1960 Acct:[id number] Age/Sex: 64 / F Adm Date: 5 Loc: Room: [address] [place] [address] Type: ADM IN Attending Dr: Digna Roberto MD Copies to: ~ Date of Service: 07/02/2024 Subjective Subjective Narrative: Patient seen and examined. Sister is present visiting. Patient is still sleepyafter hip surgery today. She indicates pain is minimal. Liquid lunch is at bedside and she is not interested in eating just yet. Denies any abdominal painor nausea. No shortness of breath or chest pain. Exam Physical Exam Vital Signs: Temp Pulse Resp BP Pulse Ox O2 Del Method O2 Flow Rate 97.8 F 98 16 119/57 L 96 Room Air 8 07/02/24 09:55 07/02/24 09:55 07/02/24 09:55 07/02/24 09:55 07/02/24 09:55 07/02/24 10:56 07/02/24 09:20 Narrative: CONST- alert, in bed, elderly female CARD- RRR no abnormal heart tones PULM- dimin without wheeze or rhonchi, RA ABD- S/NT, NABS EXTREM- no edema BLE, calves nontender Objective Lab Results 07/02/24 06:57 07/01/24 05:50 Meds Allergies and Active Meds Allergies No Known Allergies Allergy (Verified 06/30/24 19:20) Active Meds: Active Medications Generic Name Dose Route Start Last Admin Trade Name Freq PRN Reason Stop Dose Admin Acetaminophen 650 mg 06/30/24 22:32 07/01/24 15:09 Acetaminophen 325 Mg Tablet PO 06/30/25 21:59 650 mg Q6HR PRN Administration Pain Scale 1 - 3 or fever Atorvastatin Calcium 10 mg 07/01/24 09:00 07/02/24 10:39 Atorvastatin 10 Mg Tablet PO 07/01/25 08:59 10 mg DAILY HARI Administration Dextrose 0 gm 06/30/24 22:05 Dextrose 50% In Water 25 Gm/50 Ml Syringe IV-PUSH 06/30/25 22:04 PRN PRN Hypoglycemia Furosemide 20 mg 07/01/24 09:00 07/02/24 10:39 Furosemide 20 Mg Tablet PO 07/01/25 08:59 20 mg DAILY HARI Administration Glucose 0 gm 06/30/24 22:05 Dextrose 40% Gel 15 Gm Tube PO 06/30/25 22:04 PRN PRN Hypoglycemia Hydromorphone HCl 0.5 mg 06/30/24 22:00 07/02/24 04:50 Hydromorphone 0.5 Mg/0.5 Ml Syringe IV-PUSH 0.5 mg Q4H PRN Administration Pain Scale 8 - 10 Lactated Ringer's 1,000 mls @ 50 mls/hr 07/01/24 00:05 07/01/24 21:58 Lactated Ringers IV 07/01/25 00:04 50 mls/hr .Q20H HARI Administration Ferric Sodium Gluconate 110 mls @ 110 mls/hr 07/02/24 09:00 07/02/24 10:47 Complex 125 mg/ Sodium IV 07/05/24 09:01 110 mls/hr Chloride QAM HARI Administration Cefazolin Sodium 1 gm in 50 mls @ 100 mls/hr 07/02/24 14:30 Ancef IV 07/02/24 22:59 Q8H HARI Insulin Aspart 0 units 07/01/24 08:00 07/02/24 11:53 Insulin Aspart 300 Units/3 Ml SUBCUT 07/01/25 07:59 8 units TID.WM.HS HARI Administration Protocol Insulin Aspart 4 units 07/01/24 11:30 07/02/24 11:54 Insulin Aspart 300 Units/3 Ml SUBCUT 07/01/25 11:29 4 units TID.AC HARI Administration Insulin Glargine 24 units 07/01/24 09:00 07/02/24 10:39 Insulin Glargine 300 Units/3 Ml Insuln.Pen SUBCUT 07/01/25 08:59 24 units DAILY HARI Administration Insulin Human Regular 0 unit 07/02/24 09:30 07/02/24 09:34 Insulin Regular, Human 1,000 Unit/10 Ml SUBCUT 07/02/24 12:30 3 unit PROTOCOL HARI Administration Protocol Lactulose 10 gm 06/30/24 22:00 Lactulose 20 Gm/30 Ml Udc PO 06/30/25 21:59 DAILY PRN Constipation Lidocaine HCl 0.1 ml 06/30/24 23:04 Lidocaine 1% 50 Ml Vial INTRADERMA PREOP PRN Venipuncture x 1 Dose Magnesium Oxide 400 mg 07/01/24 09:00 07/02/24 10:38 Magnesium Oxide 400 Mg Tablet PO 07/01/25 08:59 400 mg DAILY HARI Administration Nicotine 1 each 07/01/24 10:50 07/02/24 10:40 Nicotine Patch 21 Mg/24hr 1 Each Patch.Td24 TRANSDERML 08/11/24 09:01 1 each DAILY HARI Administration Ursodiol 250 Mg 250 mg 07/01/24 09:00 07/02/24 10:39 Tablet PO 07/01/25 08:59 250 mg BID HARI Administration Ondansetron HCl 4 mg 06/30/24 22:00 Ondansetron 4 Mg/2 Ml Vial IV-PUSH 06/30/25 21:59 Q6H PRN Nausea And Vomiting Oxycodone HCl 5 mg 06/30/24 22:00 07/01/24 15:09 Oxycodone Ir 5 Mg Tablet PO 5 mg Q6HR PRN Administration Pain Scale 4 - 7 Pantoprazole Sodium 40 mg 07/01/24 09:00 07/02/24 10:39 Pantoprazole 40 Mg Tablet.Dr PO 07/01/25 08:59 40 mg DAILY HARI Administration Polyethylene Glycol 17 gm 07/01/24 09:00 07/02/24 10:38 Polyethylene Glycol 3350 17 Gm Powd.Pack PO 07/01/25 08:59 17 gm TID HARI Administration Sennosides 8.6 mg 07/01/24 09:00 07/02/24 10:38 Sennosides 8.6 Mg Tablet PO 07/01/25 08:59 8.6 mg BID HARI Administration Sodium Chloride 0 ml 06/30/24 19:23 06/30/24 20:28 Sodium Chloride 0.9 % 10 Ml Syringe IV-PUSH 06/30/25 19:22 10 ml PRN PRN Administration Flush Sodium Chloride 0 ml 07/01/24 07:00 Sodium Chloride 0.9 % 10 Ml Syringe IV-PUSH 07/01/25 06:59 PRN PRN Flush Spironolactone 50 mg 07/01/24 09:00 07/02/24 10:40 Spironolactone 50 Mg Tablet PO 07/01/25 08:59 50 mg DAILY HARI Administration A&P - Hospitalist Assessment/Plan (1) Closed right hip fracture: (2) Diabetes: (3) Hyperglycemia: (4) Thrombocytopenia: (5) Primary biliary cholangitis: (6) Tobacco dependence: Plan Closed right intertrochanteric fracture s/p ORIF 07/23 Macrocytic anemia, iron deficient - Orthopedics on consult for further plan of care postop - Transfuse 2 units platelets preop, Ferrlecit - Therapy evaluations postop - Cefazolin postop per Ortho preference Hypomagnesemia - Replete, trend lab T1DM with hyperglycemia, uncontrolled -Glargine, SSI C, A1c 9.4 Tobacco dependence -Nicotine replacement, smoking cessation education Chronic conditions 1. PBC/Thrombocytopenia likely due to liver disease- no signs of bleeding, continues furosemide andspironolactone 2. HLD?atorvastatin, ursodiol Documented By: Sylvia Centeno APRN 06/23 1220 Signed By: 07/02/24 1644 07/04/24 1718 [facility]05-06-2025 [place] [address] Hospitalist Progress Note Signed Patient: Teresa Lyle MR#: [id number] : 1960 Acct:[id number] Age/Sex: 64 / F Adm Date: 5 Loc: 4N Room: 5U8153-9 Type: ADM IN Attending Dr: Digna Roberto MD Copies to: ~ Date of Service: 07/04/2024 Subjective Subjective Narrative: Patient is seen and examined. Her Sister Susanna is present bedside. Patient states she had an omelette for breakfast today. Currently reporting her postoperative pain is 8. On exam she has some edema of the right lower extremity with associated calf tenderness. She offers no other complaints. Nursingstaff indicates the patient had some confusion last evening after increased dose of Dilaudid. Exam Physical Exam Vital Signs: Temp Pulse Resp BP Pulse Ox O2 Del Method O2 Flow Rate 97.2 F L 106 H 15 117/56 L 98 Room Air 8 07/04/24 11:50 07/04/24 11:50 07/04/24 11:50 07/04/24 11:50 07/04/24 11:50 07/04/24 09:21 07/02/24 09:20 Narrative: CONST- alert, in bed, elderly female CARD- RRR no abnormal heart tones PULM- dimin without wheeze or rhonchi, RA ABD- S/NT, NABS EXTREM- no edema BLE, calves nontender Skin?right hip surgical dressing in place site not seen. Umbilical dressing present Objective Lab Results 07/04/24 06:26 07/04/24 06:26 Microbiology Results Microbiology 07/03/24 10:45 Umbilical Superficial Wound Culture - Preliminary Moderate Normal Skin Hortencia 1 Day 07/03/24 15:15 Nasal Nasal Screen MRSA/MSSA - Final Meds Allergies and Active Meds Allergies No Known Allergies Allergy (Verified 06/30/24 19:20) Active Meds: Active Medications Generic Name Dose Route Start Last Admin Trade Name Freq PRN Reason Stop Dose Admin Acetaminophen 650 mg 06/30/24 22:32 07/02/24 13:44 Acetaminophen 325 Mg Tablet PO 06/30/25 21:59 650 mg Q6HR PRN Administration Pain Scale 1 - 3 or fever Atorvastatin Calcium 10 mg 07/01/24 09:00 07/04/24 08:57 Atorvastatin 10 Mg Tablet PO 07/01/25 08:59 10 mg DAILY HARI Administration Dextrose 0 gm 06/30/24 22:05 Dextrose 50% In Water 25 Gm/50 Ml Syringe IV-PUSH 06/30/25 22:04 PRN PRN Hypoglycemia Furosemide 20 mg 07/01/24 09:00 07/04/24 08:57 Furosemide 20 Mg Tablet PO 07/01/25 08:59 20 mg DAILY HARI Administration Glucose 0 gm 06/30/24 22:05 Dextrose 40% Gel 15 Gm Tube PO 06/30/25 22:04 PRN PRN Hypoglycemia Hydromorphone HCl 0.5 mg 06/30/24 22:00 07/04/24 02:28 Hydromorphone 0.5 Mg/0.5 Ml Syringe IV-PUSH 0.5 mg Q4H PRN Administration Pain Scale 8 - 10 Lactated Ringer's 1,000 mls @ 50 mls/hr 07/01/24 00:05 07/04/24 08:59 Lactated Ringers IV 07/01/25 00:04 Not Given .Q20H HARI Ferric Sodium Gluconate 110 mls @ 110 mls/hr 07/02/24 09:00 07/04/24 09:02 Complex 125 mg/ Sodium IV 07/05/24 09:01 110 mls/hr Chloride QAM HARI Administration Ceftriaxone Sodium 1 gm in 50 mls @ 100 mls/hr 07/03/24 15:30 07/03/24 15:03 Rocephin IV 100 mls/hr Q24H HARI Administration Sodium Chloride 100 mls @ 20 mls/hr 07/04/24 09:52 0.9% Sodium Chloride 100 Ml IV 07/05/24 09:51 PROTOCOL PRN BLOOD TRANSFUSION Insulin Aspart 0 units 07/01/24 08:00 07/04/24 11:47 Insulin Aspart 300 Units/3 Ml SUBCUT 07/01/25 07:59 8 units TID.WM.HS HARI Administration Protocol Insulin Aspart 4 units 07/01/24 11:30 07/04/24 11:47 Insulin Aspart 300 Units/3 Ml SUBCUT 07/01/25 11:29 4 units TID.AC HARI Administration Insulin Glargine 24 units 07/01/24 09:00 07/04/24 08:14 Insulin Glargine 300 Units/3 Ml Insuln.Pen SUBCUT 07/01/25 08:59 24 units DAILY HARI Administration Lactulose 10 gm 06/30/24 22:00 Lactulose 20 Gm/30 Ml Udc PO 06/30/25 21:59 DAILY PRN Constipation Lidocaine HCl 0.1 ml 06/30/24 23:04 Lidocaine 1% 50 Ml Vial INTRADERMA PREOP PRN Venipuncture x 1 Dose Magnesium Oxide 400 mg 07/01/24 09:00 07/04/24 08:56 Magnesium Oxide 400 Mg Tablet PO 07/01/25 08:59 400 mg DAILY HARI Administration Melatonin 5 mg 07/04/24 22:00 Melatonin 5 Mg Tablet PO 07/04/25 21:59 QHS HARI Nicotine 1 each 07/01/24 10:50 07/04/24 08:59 Nicotine Patch 21 Mg/24hr 1 Each Patch.Td24 TRANSDERML 08/11/24 09:01 Not Given DAILY HARI Ursodiol 250 Mg 250 mg 07/01/24 09:00 07/04/24 08:59 Tablet PO 07/01/25 08:59 250 mg BID HARI Administration Ondansetron HCl 4 mg 06/30/24 22:00 Ondansetron 4 Mg/2 Ml Vial IV-PUSH 06/30/25 21:59 Q6H PRN Nausea And Vomiting Oxycodone HCl 5 mg 06/30/24 22:00 07/04/24 08:57 Oxycodone Ir 5 Mg Tablet PO 5 mg Q6HR PRN Administration Pain Scale 4 - 7 Pantoprazole Sodium 40 mg 07/01/24 09:00 07/04/24 08:57 Pantoprazole 40 Mg Tablet.Dr PO 07/01/25 08:59 40 mg DAILY HARI Administration Polyethylene Glycol 17 gm 07/01/24 09:00 07/04/24 08:56 Polyethylene Glycol 3350 17 Gm Powd.Pack PO 07/01/25 08:59 17 gm TID HARI Administration Sennosides 8.6 mg 07/01/24 09:00 07/04/24 08:57 Sennosides 8.6 Mg Tablet PO 07/01/25 08:59 8.6 mg BID HARI Administration Sodium Chloride 0 ml 06/30/24 19:23 06/30/24 20:28 Sodium Chloride 0.9 % 10 Ml Syringe IV-PUSH 06/30/25 19:22 10 ml PRN PRN Administration Flush Sodium Chloride 0 ml 07/01/24 07:00 Sodium Chloride 0.9 % 10 Ml Syringe IV-PUSH 07/01/25 06:59 PRN PRN Flush Spironolactone 50 mg 07/01/24 09:00 07/04/24 09:00 Spironolactone 50 Mg Tablet PO 07/01/25 08:59 Not Given DAILY HARI Trazodone HCl 25 mg 07/03/24 22:39 Trazodone 50 Mg Tablet PO 07/03/25 22:38 QHS PRN Insomnia A&P - Hospitalist Assessment/Plan (1) Closed right hip fracture: (2) Diabetes: (3) Hyperglycemia: (4) Thrombocytopenia: (5) Primary biliary cholangitis: (6) Tobacco dependence: Plan Closed right intertrochanteric fracture s/p ORIF 07/23 Macrocytic anemia, iron deficient - Orthopedics on consult for further plan of care postop, pain management, bowelregimen - Transfuse 2 units platelets preop, Ferrlecit. 07/04 transfuse 1 unit PRBC - Therapy evaluations postop, plan inpatient rehab pending insurance approval. Probable discharge next 24-48hr - RLE edema/ calf pain- u/s to r/o DVT. Enoxaparin added DVT prophylaxis - 07/04 episode of confusion noted last brian, mentation improved today Chronic drainage from prior umbilical hernia repair site?reported approximately 5 years ago at the [facility] - Seen by wound nurses, culture obtained?pending, MRSA swab negative - Surgical consult appreciated with removal of old sutures noted in umbilicus - Ceftriaxone- plan 1 week antibiotic therapy regardless of culture results due to malodorous purulent drainage from site of old/ chronic would, initially IV x3days then will change to PO Hyponatremia -hold furosemide -lab workup pending Hypomagnesemia - Replete, trend lab T1DM with hyperglycemia, uncontrolled -Glargine, SSIC, A1c 9.4 Tobacco dependence -Nicotine replacement, smoking cessation education Chronic conditions 1. PBC/Thrombocytopenia likely due to liver disease- no signs of bleeding, continues furosemide andspironolactone 2. HLD?atorvastatin, ursodiol 3. Legal blindness 4. GERD-pantoprazole Documented By: Sylvia Centeno APRN 08/23 1225 Signed By: 07/04/24 1417 07/04/24 1718 [facility]05-06-2025 Progress note Author Roger Robbins [facility] Note Date/Time July 04, 2024 11:27a m [facility] [address] [place] [address] Orthopedic Progress Note Signed Patient: Teresa Lyle MR#: [id number] : 1960 Acct:[id number] Age/Sex: 64 / F Adm Date: 5 Loc: 4N Room: 2J3099-9 Type: ADM IN Attending Dr: Digna Roberto MD Copies to: ~ Date of Service: 07/04/2024 Subjective Subjective Interval History: Patient doing well this morning. No acute complaints. Exam Physical Exam Vital Signs: Temp Pulse Resp BP Pulse Ox O2 Del Method O2 Flow Rate 98.8 F 113 H 17 112/65 94 L Room Air 8 07/04/24 08:20 07/04/24 08:20 07/04/24 08:20 07/04/24 08:20 07/04/24 08:20 07/04/24 09:21 07/02/24 09:20 Narrative: Patient seen evaluated on regular nursing floor. She is resting in supine position. She is alert and pleasant conversation. No acute distress. Right hip evaluated. Surgical dressings benign. Thigh is soft compressible. Motion is tolerable. Able to move the foot and ankle today without difficulty. No abnormal calf tenderness Objective Labs Labs: Laboratory Results - last 24 hr 07/01/24 07/03/24 07/03/24 05:50 12:34 12:36 Corrected WBC Uncorrected WBC Count RBC Hgb Hct MCV MCH MCHC RDW Plt Count MPV Neut % (Auto) Lymph % (Auto) Richardson % (Auto) Eos % (Auto) Baso % (Auto) Nucleat RBC Rel Count Neut # (Auto) Lymph # (Auto) Richardson # (Auto) Eos # (Auto) Baso # (Auto) PHA Creatinine Clear Sodium Potassium Chloride Carbon Dioxide Anion Gap BUN Creatinine Est GFR (CKD-EPI) Glucose POC Glucose 438 H* 412 H* POC Glucose Comment Calcium Blood Type A Positive Antibody Screen Negative Crossmatch ([facility]) See Detail 07/03/24 07/03/24 07/03/24 12:36 15:26 21:01 Corrected WBC Uncorrected WBC Count RBC Hgb Hct MCV MCH MCHC RDW Plt Count MPV Neut % (Auto) Lymph % (Auto) Richardson % (Auto) Eos % (Auto) Baso % (Auto) Nucleat RBC Rel Count Neut # (Auto) Lymph # (Auto) Richardson # (Auto) Eos # (Auto) Baso # (Auto) PHA Creatinine Clear Sodium Potassium Chloride Carbon Dioxide Anion Gap BUN Creatinine Est GFR (CKD-EPI) Glucose POC Glucose 369 279 POC Glucose Comment Cleaned meter Calcium Blood Type Antibody Screen Crossmatch ([facility]) 07/04/24 07/04/24 06:26 07:45 Corrected WBC 6.9 Uncorrected WBC Count 6.9 RBC 3.31 L Hgb 7.7 L Hct 24.7 L MCV 74.5 L MCH 23.3 L MCHC 31.3 L RDW 21.4 H Plt Count 116 L MPV 8.5 Neut % (Auto) 67.8 Lymph % (Auto) 16.2 Richardson % (Auto) 15.1 Eos % (Auto) 0.4 Baso % (Auto) 0.5 Nucleat RBC Rel Count 0.2 Neut # (Auto) 4.7 Lymph # (Auto) 1.1 Richardson # (Auto) 1.0 H Eos # (Auto) 0.0 Baso # (Auto) 0.0 PHA Creatinine Clear 123.08 Sodium 125 L Potassium 4.9 Chloride 98 Carbon Dioxide 23.7 Anion Gap 8.2 BUN 18 Creatinine 0.42 L Est GFR (CKD-EPI) > 60.0 Glucose 276 H POC Glucose 299 POC Glucose Comment Calcium 7.6 L Blood Type Antibody Screen Crossmatch ([facility]) Micro Microbiology Results: Microbiology 07/03/24 10:45 Umbilical Superficial Wound Culture - Preliminary Moderate Normal Skin Hortencia 1 Day 07/03/24 15:15 Nasal Nasal Screen MRSA/MSSA - Final Assessment / Plan Assessment and plan (1) Intertrochanteric fracture of right hip: Code(s): S72.141A - Displaced intertrochanteric fracture of right femur, initial encounter for closed fracture Plan POD #2 S/P left TFN for intertrochanteric hip fracture -WBAT -DVT prophylaxis per primary -Pain control per primary -PT/OT -Maintain postoperative dressing, change as needed -Ice to the operative site as needed -ABLA, Hgb 7.7 (8.6), monitor vitals transfuse per primary -Calcium/vitamin D supplementation -Protein supplementation -Stable for discharge from orthopedic standpoint -Plan for follow-up in office as scheduled, call office with any questions or concerns No further intervention from orthopedic standpoint. We will plan for follow-up x-rays and wound check in approximately 3 weeks. Maintain all hospital precautions until follow-up. Will need to consider DEXA scan at follow-up visit. Continue baseline calcium and vitamin D supplementation along with protein supplementation with every meal. Dr. Roger Robbins [facility] [address] [place], [place] [address] Documented By: Roger Robbins DO 07/04/24 1126 Signed By: <Electronically signed by Roger Robbins DO> 07/04/24 1127 [facility] Work Phone: 1(874) 520-315305-06-[address] [address] Orthopedic Progress Note Signed Patient: Teresa Lyle MR#: [id number] : 1960 Acct:[id number] Age/Sex: 64 / F Adm Date: 5 Loc: 4N Room: 4V6995-0 Type: ADM IN Attending Dr: Digna Roberto MD Copies to: ~ Date of Service: 07/04/2024 Subjective Subjective Interval History: Patient doing well this morning. No acute complaints. Exam Physical Exam Vital Signs: Temp Pulse Resp BP Pulse Ox O2 Del Method O2 Flow Rate 98.8 F 113 H 17 112/65 94 L Room Air 8 07/04/24 08:20 07/04/24 08:20 07/04/24 08:20 07/04/24 08:20 07/04/24 08:20 07/04/24 09:21 07/02/24 09:20 Narrative: Patient seen evaluated on regular nursing floor. She is resting in supine position. She is alert and pleasant conversation. No acute distress. Right hip evaluated. Surgical dressings benign. Thigh is soft compressible. Motion is tolerable. Able to move the foot and ankle today without difficulty. No abnormal calf tenderness Objective Labs Labs: Laboratory Results - last 24 hr 07/01/24 07/03/24 07/03/24 05:50 12:34 12:36 Corrected WBC Uncorrected WBC Count RBC Hgb Hct MCV MCH MCHC RDW Plt Count MPV Neut % (Auto) Lymph % (Auto) Richardson % (Auto) Eos % (Auto) Baso % (Auto) Nucleat RBC Rel Count Neut # (Auto) Lymph # (Auto) Richardson # (Auto) Eos # (Auto) Baso # (Auto) PHA Creatinine Clear Sodium Potassium Chloride Carbon Dioxide Anion Gap BUN Creatinine Est GFR (CKD-EPI) Glucose POC Glucose 438 H* 412 H* POC Glucose Comment Calcium Blood Type A Positive Antibody Screen Negative Crossmatch ([facility]) See Detail 07/03/24 07/03/24 07/03/24 12:36 15:26 21:01 Corrected WBC Uncorrected WBC Count RBC Hgb Hct MCV MCH MCHC RDW Plt Count MPV Neut % (Auto) Lymph % (Auto) Richardson % (Auto) Eos % (Auto) Baso % (Auto) Nucleat RBC Rel Count Neut # (Auto) Lymph # (Auto) Richardson # (Auto) Eos # (Auto) Baso # (Auto) PHA Creatinine Clear Sodium Potassium Chloride Carbon Dioxide Anion Gap BUN Creatinine Est GFR (CKD-EPI) Glucose POC Glucose 369 279 POC Glucose Comment Cleaned meter Calcium Blood Type Antibody Screen Crossmatch ([facility]) 07/04/24 07/04/24 06:26 07:45 Corrected WBC 6.9 Uncorrected WBC Count 6.9 RBC 3.31 L Hgb 7.7 L Hct 24.7 L MCV 74.5 L MCH 23.3 L MCHC 31.3 L RDW 21.4 H Plt Count 116 L MPV 8.5 Neut % (Auto) 67.8 Lymph % (Auto) 16.2 Richardson % (Auto) 15.1 Eos % (Auto) 0.4 Baso % (Auto) 0.5 Nucleat RBC Rel Count 0.2 Neut # (Auto) 4.7 Lymph # (Auto) 1.1 Richardson # (Auto) 1.0 H Eos # (Auto) 0.0 Baso # (Auto) 0.0 PHA Creatinine Clear 123.08 Sodium 125 L Potassium 4.9 Chloride 98 Carbon Dioxide 23.7 Anion Gap 8.2 BUN 18 Creatinine 0.42 L Est GFR (CKD-EPI) > 60.0 Glucose 276 H POC Glucose 299 POC Glucose Comment Calcium 7.6 L Blood Type Antibody Screen Crossmatch ([facility]) Micro Microbiology Results: Microbiology 07/03/24 10:45 Umbilical Superficial Wound Culture - Preliminary Moderate Normal Skin Hortencia 1 Day 07/03/24 15:15 Nasal Nasal Screen MRSA/MSSA - Final Assessment / Plan Assessment and plan (1) Intertrochanteric fracture of right hip: Code(s): S72.141A - Displaced intertrochanteric fracture of right femur, initial encounter for closed fracture Plan POD #2 S/P left TFN for intertrochanteric hip fracture -WBAT -DVT prophylaxis per primary -Pain control per primary -PT/OT -Maintain postoperative dressing, change as needed -Ice to the operative site as needed -ABLA, Hgb 7.7 (8.6), monitor vitals transfuse per primary -Calcium/vitamin D supplementation -Protein supplementation -Stable for discharge from orthopedic standpoint -Plan for follow-up in office as scheduled, call office with any questions or concerns No further intervention from orthopedic standpoint. We will plan for follow-up x-rays and wound check in approximately 3 weeks. Maintain all hospital precautions until follow-up. Will need to consider DEXA scan at follow-up visit. Continue baseline calcium and vitamin D supplementation along with protein supplementation with every meal. Dr[facility] [address] [place] [address] Documented By: Roger Robbins DO 07/04/24 112 Signed By: 07/04/24 1127 [facility]05-06-2025 Progress note Author Sylvia Centeno [facility] Note Date/Time July 03, 2024 10:23p m [facility] [address] [place] [address] Hospitalist Progress Note Signed Patient: Teresa Lyle MR#: [id number] : 1960 Acct:[id number] Age/Sex: 64 / F Adm Date: 5 Loc: 4N Room: [address] [place] [address] Type: ADM IN Attending Dr: Digna Roberto MD Copies to: ~ Date of Service: 07/03/2024 Subjective Subjective Narrative: Patient is seen and examined. No visitors are present. She awakens for my visit but mostly keeps her eyes shut. She indicates she is having some right hip pain, just finished working with therapy and being dialyzed out. Nursing staff brings to provider attention umbilical dressing from prior umbilical hernia repair. No records are available in clinasymt or the [facility] EMR. I did discuss with her daughter Ladi, reports that she had complications after gallbladder surgery resulting in umbilical hernia and underwent hernia repair approximately 5 years ago as a part of [facility]. Daughter indicates there has been pain and drainage at the site ongoing since that time.. Seen by wound staff with culture obtained, appearance of sutures within the umbilicus are noted, malodorous purulent discharge reported. Exam Physical Exam Vital Signs: Temp Pulse Resp BP Pulse Ox O2 Del Method O2 Flow Rate 98.8 F 103 H 18 132/67 98 Room Air 8 07/03/24 07:57 07/03/24 07:57 07/03/24 07:57 07/03/24 07:57 07/03/24 07:57 07/03/24 08:00 07/02/24 09:20 Narrative: CONST- alert, in bed, elderly female CARD- RRR no abnormal heart tones PULM- dimin without wheeze or rhonchi, RA ABD- S/NT, NABS EXTREM- no edema BLE, calves nontender Skin?right hip surgical dressing in place site not seen. Ambulatory with dressing present, noted malodorous purulent drainage Objective Lab Results 07/03/24 05:42 07/03/24 05:42 Meds Allergies and Active Meds Allergies No Known Allergies Allergy (Verified 06/30/24 19:20) Active Meds: Active Medications Generic Name Dose Route Start Last Admin Trade Name Freq PRN Reason Stop Dose Admin Acetaminophen 650 mg 06/30/24 22:32 07/02/24 13:44 Acetaminophen 325 Mg Tablet PO 06/30/25 21:59 650 mg Q6HR PRN Administration Pain Scale 1 - 3 or fever Atorvastatin Calcium 10 mg 07/01/24 09:00 07/03/24 08:30 Atorvastatin 10 Mg Tablet PO 07/01/25 08:59 10 mg DAILY HARI Administration Dextrose 0 gm 06/30/24 22:05 Dextrose 50% In Water 25 Gm/50 Ml Syringe IV-PUSH 06/30/25 22:04 PRN PRN Hypoglycemia Furosemide 20 mg 07/01/24 09:00 07/03/24 08:30 Furosemide 20 Mg Tablet PO 07/01/25 08:59 20 mg DAILY HARI Administration Glucose 0 gm 06/30/24 22:05 Dextrose 40% Gel 15 Gm Tube PO 06/30/25 22:04 PRN PRN Hypoglycemia Hydromorphone HCl 0.5 mg 06/30/24 22:00 07/03/24 09:23 Hydromorphone 0.5 Mg/0.5 Ml Syringe IV-PUSH 0.5 mg Q4H PRN Administration Pain Scale 8 - 10 Lactated Ringer's 1,000 mls @ 50 mls/hr 07/01/24 00:05 07/02/24 16:39 Lactated Ringers IV 07/01/25 00:04 Not Given .Q20H HARI Ferric Sodium Gluconate 110 mls @ 110 mls/hr 07/02/24 09:00 07/03/24 08:41 Complex 125 mg/ Sodium IV 07/05/24 09:01 110 mls/hr Chloride QAM HARI Administration Insulin Aspart 0 units 07/01/24 08:00 07/03/24 08:31 Insulin Aspart 300 Units/3 Ml SUBCUT 07/01/25 07:59 12 units TID.WM.HS HARI Administration Protocol Insulin Aspart 4 units 07/01/24 11:30 07/03/24 08:31 Insulin Aspart 300 Units/3 Ml SUBCUT 07/01/25 11:29 4 units TID.AC HARI Administration Insulin Glargine 24 units 07/01/24 09:00 07/03/24 08:30 Insulin Glargine 300 Units/3 Ml Insuln.Pen SUBCUT 07/01/25 08:59 24 units DAILY HARI Administration Lactulose 10 gm 06/30/24 22:00 Lactulose 20 Gm/30 Ml Udc PO 06/30/25 21:59 DAILY PRN Constipation Lidocaine HCl 0.1 ml 06/30/24 23:04 Lidocaine 1% 50 Ml Vial INTRADERMA PREOP PRN Venipuncture x 1 Dose Magnesium Oxide 400 mg 07/01/24 09:00 07/03/24 08:29 Magnesium Oxide 400 Mg Tablet PO 07/01/25 08:59 400 mg DAILY HARI Administration Nicotine 1 each 07/01/24 10:50 07/03/24 08:32 Nicotine Patch 21 Mg/24hr 1 Each Patch.Td24 TRANSDERML 08/11/24 09:01 Not Given DAILY HARI Ursodiol 250 Mg 250 mg 07/01/24 09:00 07/03/24 08:33 Tablet PO 07/01/25 08:59 250 mg BID HARI Administration Ondansetron HCl 4 mg 06/30/24 22:00 Ondansetron 4 Mg/2 Ml Vial IV-PUSH 06/30/25 21:59 Q6H PRN Nausea And Vomiting Oxycodone HCl 5 mg 06/30/24 22:00 07/02/24 21:06 Oxycodone Ir 5 Mg Tablet PO 5 mg Q6HR PRN Administration Pain Scale 4 - 7 Pantoprazole Sodium 40 mg 07/01/24 09:00 07/03/24 08:29 Pantoprazole 40 Mg Tablet. PO 07/01/25 08:59 40 mg DAILY HARI Administration Polyethylene Glycol 17 gm 07/01/24 09:00 07/03/24 08:29 Polyethylene Glycol 3350 17 Gm Powd.Pack PO 07/01/25 08:59 17 gm TID HARI Administration Sennosides 8.6 mg 07/01/24 09:00 07/03/24 08:33 Sennosides 8.6 Mg Tablet PO 07/01/25 08:59 Not Given BID HARI Sodium Chloride 0 ml 06/30/24 19:23 06/30/24 20:28 Sodium Chloride 0.9 % 10 Ml Syringe IV-PUSH 06/30/25 19:22 10 ml PRN PRN Administration Flush Sodium Chloride 0 ml 07/01/24 07:00 Sodium Chloride 0.9 % 10 Ml Syringe IV-PUSH 07/01/25 06:59 PRN PRN Flush Spironolactone 50 mg 07/01/24 09:00 07/03/24 08:30 Spironolactone 50 Mg Tablet PO 07/01/25 08:59 50 mg DAILY HARI Administration A&P - Hospitalist Assessment/Plan (1) Closed right hip fracture: (2) Diabetes: (3) Hyperglycemia: (4) Thrombocytopenia: (5) Primary biliary cholangitis: (6) Tobacco dependence: Plan Closed right intertrochanteric fracture s/p ORIF 07/23 Macrocytic anemia, iron deficient - Orthopedics on consult for further plan of care postop - Transfuse 2 units platelets preop, Ferrlecit - Therapy evaluations postop Chronic drainage from prior umbilical hernia repair site?reported approximately 5 years ago at the [facility] - Seen by wound nurses, culture obtained?pending, MRSA swab pending - Surgical consult - Ceftriaxone Hypomagnesemia - Replete, trend lab T1DM with hyperglycemia, uncontrolled -Glargine, SSIC, A1c 9.4 Tobacco dependence -Nicotine replacement, smoking cessation education Chronic conditions 1. PBC/Thrombocytopenia likely due to liver disease- no signs of bleeding, continues furosemide and spironolactone 2. HLD?atorvastatin, ursodiol Documented By: Sylvia Centeno APRN 07/23 1038 Signed By: <Electronically signed by ALLY Centeno> 07/03/24 1432 <Electronically signed by Digna Roberto MD> 07/03/24 8938 [facility] Work Phone: [phone]) 115-497005-05-2025 Consult note Author Kraig Hubbard [facility] Note Date/Time July 03, 2024 8:45pm [facility] [address] [place] [address] General Surgery Consult Note Signed Patient: Teresa Lyle MR#: [id number] : 1960 Acct:[id number] Age/Sex: 64 / F Adm Date: 5 Loc: Room: [address] [place] [address] Type: ADM IN Attending Dr: Digna Roberto MD Copies to: DO Chapis Madrid CNP, MD~ History of Present Illness Date of consult: 07/03/2024 Requesting/Attending Provider: Digna Roberto MD History of present illness: [place] was admitted for an ankle fracture and is currently under the care of the hospitalist as well as orthopedic surgeon. I was consulted for a longstanding chronic wound of the umbilicus. The patient states that she had surgery in the past to repair an umbilical hernia, the area however continues to seep and is not healing. She does have a specialist in [place] that take care of her. She apparently was not offered additional surgical treatment. [facility] Medical History Esophageal varices with band ligation BMI 22.0-22.9, adult Dietary counseling and surveillance Hyperlipidemia Lower GI bleed Diabetes type 2 Dietary counseling and surveillance Type 1 diabetes mellitus with hyperglycemia Vitamin D deficiency HTN (hypertension) GERD (gastroesophageal reflux disease) Asthma Arthritis Umbilical hernia PVD (peripheral vascular disease) COPD (chronic obstructive pulmonary disease) Rheumatoid arthritis Diabetes Surgical History History of hernia repair S/P TIPS (transjugular intrahepatic portosystemic shunt) History of cholecystectomy History of esophagogastroduodenoscopy (EGD) Family History Mother Diabetes Heart disease Father Diabetes Sister Diabetes Sister Diabetes Brother Cancer Legacy FamHx Relation: Brother(s); Legacy FamHx Problem: Diagnosed with Cancer Family history of mental disorder Legacy FamHx Relation: Brother(s); Legacy FamHx Problem: Diagnosed with Mental Illness Diabetes Legacy FamHx Relation: Brother(s) Father Dementia Diabetes Family/Other Legacy FamHx Problem: DENIES FAMILY HX OF COLON CANCER:1 daughter insulin resistant:1 sister cancer liver:1 brother blood cancer:1 brother cirrhois Grandparent Legacy FamHx Relation: Maternal Grand Father Grandparent Legacy FamHx Relation: Maternal Grand Mother Grandparent Diabetes Legacy FamHx Relation: Paternal Grand Father Legacy FamHx Relation: Paternal Grand Father Grandparent Legacy FamHx Relation: Paternal Grand Mother Diabetes Legacy FamHx Relation: Paternal Grand Mother Mother Diabetes Heart disease 63 yrs Mother Diabetes Sister Cancer Legacy FamHx Problem: Diagnosed with Cancer Diabetes Social History Smoking Status: Current every day smoker Tobacco Type: cigarettes Substance Use Type: None Social History Comments: muscle and tissue damage lives in a duplex Allergies & Medications Medications and Allergies Allergies No Known Allergies Allergy (Verified 06/30/24 19:20) Home Medications gabapentin 300 mg capsule 300 mg PO TID #0 caps 05/24/23 [Rx Confirmed 06/30/24] atorvastatin 10 mg tablet 10 mg PO DAILY 90 days #90 tabs 06/04/23 [Rx Confirmed 06/30/24] pantoprazole 40 mg tablet,delayed release 40 mg PO DAILY 06/15/23 [History Confirmed 06/30/24] polyethylene glycol 3350 17 gram/dose oral powder (Miralax) 17 g PO TID 06/15/23[History Confirmed 06/30/24] ursodiol 250 mg tablet 250 mg PO BID 06/15/23 [History Confirmed 06/30/24] insulin aspart (niacinamide)(U-100) 100 unit/mL(3 mL) subcutaneous pen (Fiasp FlexTouch U-100 Insulin) See Rx Instructions subcut USEASDIRECTD 90 days #15 mL 07/21/23 [Rx Confirmed 06/30/24] insulin degludec 100 unit/mL (3 mL) subcutaneous pen (Tresiba FlexTouch U-100 insulin) See Rx Instructions subcut DAILY 07/21/23 [History Confirmed 06/30/24] spironolactone 50 mg tablet 50 mg PO DAILY 07/21/23 [History Confirmed 06/30/24] blood sugar diagnostic (SAY Media Ultra Test strips) #400 ea 10/05/23 [Rx Confirmed 06/30/24] furosemide 20 mg tablet (Lasix) 20 mg PO DAILY 11/30/23 [History Confirmed 06/30/24] magnesium oxide 400 mg PO DAILY #90 tabs 11/30/23 [Rx Confirmed 06/30/24] Active Medications Acetaminophen (Acetaminophen 325 Mg Tablet) 650 mg PO Q6HR PRN PRN Reason: Pain Scale 1 - 3 or fever Stop: 06/30/25 21:59 Last Admin: 07/02/24 13:44 Dose: 650 mg Atorvastatin Calcium (Atorvastatin 10 Mg Tablet) 10 mg PO DAILY HARI Stop: 07/01/25 08:59 Last Admin: 07/03/24 08:30 Dose: 10 mg Dextrose (Dextrose 50% In Water 25 Gm/50 Ml Syringe) 0 gm IV-PUSH PRN PRN PRN Reason: Hypoglycemia Stop: 06/30/25 22:04 Furosemide (Furosemide 20 Mg Tablet) 20 mg PO DAILY HARI Stop: 07/01/25 08:59 Last Admin: 07/03/24 08:30 Dose: 20 mg Glucose (Dextrose 40% Gel 15 Gm Tube) 0 gm PO PRN PRN PRN Reason: Hypoglycemia Stop: 06/30/25 22:04 Hydromorphone HCl (Hydromorphone 0.5 Mg/0.5 Ml Syringe) 0.5 mg IV-PUSH Q4H PRN PRN Reason: Pain Scale 8 - 10 Last Admin: 07/03/24 15:31 Dose: 0.5 mg Lactated Ringer's (Lactated Ringers) 1,000 mls @ 50 mls/hr IV .Q20H HARI Stop: 07/01/25 00:04 Last Admin: 07/03/24 13:04 Dose: 50 mls/hr Ferric Sodium Gluconate Complex 125 mg/ Sodium Chloride 110 mls @ 110 mls/hr IVQAM [facility] Stop: 07/05/24 09:01 Last Admin: 07/03/24 08:41 Dose: 110 mls/hr Ceftriaxone Sodium (Rocephin) 1 gm in 50 mls @ 100 mls/hr IV Q24H [facility] Last Admin: 07/03/24 15:03 Dose: 100 mls/hr Insulin Aspart (Insulin Aspart 300 Units/3 Ml) 0 units SUBCUT TID.WM.HS [facility]; Protocol Stop: 07/01/25 07:59 Last Admin: 07/03/24 17:13 Dose: 14 units Insulin Aspart (Insulin Aspart 300 Units/3 Ml) 4 units SUBCUT TID.AC [facility] Stop: 07/01/25 11:29 Last Admin: 07/03/24 17:13 Dose: 4 units Insulin Glargine (Insulin Glargine 300 Units/3 Ml Insuln.Pen) 24 units SUBCUT DAILY [facility] Stop: 07/01/25 08:59 Last Admin: 07/03/24 08:30 Dose: 24 units Lactulose (Lactulose 20 Gm/30 Ml Udc) 10 gm PO DAILY PRN PRN Reason: Constipation Stop: 06/30/25 21:59 Lidocaine HCl (Lidocaine 1% 50 Ml Vial) 0.1 ml INTRADERMA PREOP PRN PRN Reason: Venipuncture x 1 Dose Magnesium Oxide (Magnesium Oxide 400 Mg Tablet) 400 mg PO DAILY [facility] Stop: 07/01/25 08:59 Last Admin: 07/03/24 08:29 Dose: 400 mg Nicotine (Nicotine Patch 21 Mg/24hr 1 Each Patch.Td24) 1 each TRANSDERML DAILY [facility] Stop: 08/11/24 09:01 Last Admin: 07/03/24 08:32 Dose: Not Given Ursodiol 250 Mg (Tablet) 250 mg PO BID [facility] Stop: 07/01/25 08:59 Last Admin: 07/03/24 08:33 Dose: 250 mg Ondansetron HCl (Ondansetron 4 Mg/2 Ml Vial) 4 mg IV-PUSH Q6H PRN PRN Reason: Nausea And Vomiting Stop: 06/30/25 21:59 Oxycodone HCl (Oxycodone Ir 5 Mg Tablet) 5 mg PO Q6HR PRN PRN Reason: Pain Scale 4 - 7 Last Admin: 07/03/24 14:26 Dose: 5 mg Pantoprazole Sodium (Pantoprazole 40 Mg Tablet.Dr) 40 mg PO DAILY HARI Stop: 07/01/25 08:59 Last Admin: 07/03/24 08:29 Dose: 40 mg Polyethylene Glycol (Polyethylene Glycol 3350 17 Gm Powd.Pack) 17 gm PO TID HARI Stop: 07/01/25 08:59 Last Admin: 07/03/24 14:23 Dose: 17 gm Sennosides (Sennosides 8.6 Mg Tablet) 8.6 mg PO BID HARI Stop: 07/01/25 08:59 Last Admin: 07/03/24 08:33 Dose: Not Given Sodium Chloride (Sodium Chloride 0.9 % 10 Ml Syringe) 0 ml IV-PUSH PRN PRN PRN Reason: Flush Stop: 06/30/25 19:22 Last Admin: 06/30/24 20:28 Dose: 10 ml Sodium Chloride (Sodium Chloride 0.9 % 10 Ml Syringe) 0 ml IV-PUSH PRN PRN PRN Reason: Flush Stop: 07/01/25 06:59 Spironolactone (Spironolactone 50 Mg Tablet) 50 mg PO DAILY [facility] Stop: 07/01/25 08:59 Last Admin: 07/03/24 08:30 Dose: 50 mg Exam Physical Exam Vital Signs: Temp Pulse Resp BP Pulse Ox O2 Del Method O2 Flow Rate 98.5 F 103 H 18 118/65 98 Room Air 8 07/03/24 15:10 07/03/24 15:10 07/03/24 15:10 07/03/24 15:10 07/03/24 15:10 07/03/24 16:00 07/02/24 09:20 Const General: cooperative Nutritional Appearance: average body habitus Orientation: alert, awake and oriented x3 Resp Effort & Inspection: normal respiratory effort and able to speak in complete sentences Auscultation: clear to auscultation bilaterally GI Inspection: non-distended Palpation: soft and no guarding Auscultation: normal bowel sounds Other: Examination of her abdomen shows a nonhealing wound of the umbilicus. There is some drainage in the area in addition there are several heavy #1 Prolene suturesthat are sticking out of the wound. On examination they are not providing any function there is loosely lying there. They did will however prevent healing ofthe wound as they protrude through the skin. Results - Gen. Surgery Intake and Output 24 hour I&O: Intake & Output 07/03/24 07/03/24 07/03/24 07:59 15:59 23:59 Intake Total 630 / 730 100 / 730 Output Total 650 / 1250 350 / 1250 250 / 1250 Balance -650 / -520 280 / -520 -150 / -520 Weight 66.7 kg Labs 07/03/24 05:42 07/03/24 05:42 Laboratory Results - last 72 hr 07/03/24 15:26: POC Glucose 369 07/03/24 12:36: POC Glucose Comment Cleaned meter 07/03/24 12:36: POC Glucose 412 H*, POC Glucose Comment 07/03/24 12:34: POC Glucose 438 H*, POC Glucose Comment 07/03/24 07:52: POC Glucose 302 07/03/24 05:42: Corrected WBC 5.8, Uncorrected WBC Count 5.8, RBC 3.59 L, Hgb 8.6 L, Hct 26.9 L, MCV 74.9 L, MCH 24.1 L, MCHC 32.2, RDW 21.7 H, Plt Count 106 L, MPV 9.1, Neut % (Auto) 72.8, Lymph % (Auto) 10.5, Richardson % (Auto) 15.7, Eos % (Auto) 0.4, Baso % (Auto) 0.6, Nucleat RBC Rel Count 0.1, Neut # (Auto) 4.2, Lymph # (Auto) 0.6 L, Richardson # (Auto) 0.9 H, Eos # (Auto) 0.0, Baso # (Auto) 0.0, PHA Creatinine Clear 94.15, Sodium 128 L, Potassium 4.5, Chloride 99, Carbon Dioxide 23.9, Anion Gap 9.6, BUN 18, Creatinine 0.49 L, Est GFR (CKD-EPI) > 60.0, Glucose 291 H, Calcium 7.4 L 07/02/24 21:06: POC Glucose 351 07/02/24 16:37: POC Glucose 222 07/02/24 11:52: POC Glucose 267 07/02/24 10:37: POC Glucose 266 07/02/24 09:28: POC Glucose 208 07/02/24 07:54: POC Glucose 249, POC Glucose Comment Glu2: cleaned meter 07/02/24 06:57: Corrected WBC 5.2, Uncorrected WBC Count 5.2, RBC 3.84, Hgb 9.0 L, Hct 28.1 L, MCV 73.1 L, MCH 23.5 L, MCHC 32.1, RDW 21.2 H, Plt Count 88 L, MPV 8.3, Neut % (Auto) 65.5, Lymph % (Auto) 16.8, Richardson % (Auto) 14.2, Eos % (Auto) 1.1, Baso % (Auto) 2.4, Nucleat RBC Rel Count 0.1, Neut # (Auto) 3.4, Lymph # (Auto) 0.9 L, Richardson # (Auto) 0.7, Eos # (Auto) 0.1, Baso # (Auto) 0.1, PT14.0 H, INR 1.2, B- Natriuretic Peptide 50.0 07/01/24 22:11: Corrected WBC 5.3, Uncorrected WBC Count 5.3, RBC 3.85, Hgb 9.0 L, Hct 28.2 L, MCV 73.2 L, MCH 23.5 L, MCHC 32.1, RDW 21.2 H, Plt Count 85 L D, MPV 8.4, Neut % (Auto) 64.6, Lymph % (Auto) 18.3, Richardson % (Auto) 13.8, Eos % (Auto) 2.0, Baso % (Auto) 1.3, Nucleat RBC Rel Count 0.1, Neut # (Auto) 3.4, Lymph # (Auto) 1.0, Richardson # (Auto) 0.7, Eos # (Auto) 0.1, Baso # (Auto) 0.1 07/01/24 21:54: POC Glucose 261 07/01/24 16:44: POC Glucose 351 07/01/24 11:58: POC Glucose 270 07/01/24 09:02: POC Glucose 269 07/01/24 05:50: Corrected WBC 5.9, Uncorrected WBC Count 5.9, RBC 3.99, Hgb 9.5 L, Hct 29.5 L, MCV 73.9 L, MCH 23.7 L, MCHC 32.1, RDW 21.8 H, Plt Count 58 L, MPV 8.8, Neut % (Auto) 71.7, Lymph % (Auto) 13.6, Richardson % (Auto) 12.8, Eos % (Auto) 1.1, Baso % (Auto) 0.8, Nucleat RBC Rel Count 0.1, Neut # (Auto) 4.2, Lymph # (Auto) 0.8 L, Richardson # (Auto) 0.8, Eos # (Auto) 0.1, Baso # (Auto) 0.0, PT13.6 H, INR 1.2, APTT 37.3 H, PHA Creatinine Clear 118.29, Sodium 132 L, Potassium 4.0, Chloride 105, Carbon Dioxide 23.5, Anion Gap 7.5, BUN 11, Creatinine 0.39 L, Est GFR (CKD-EPI) > 60.0, Glucose 294 H D, Estimat Average Glucose 332, Hemoglobin A1c 13.2 H, Calcium 7.7 L, Magnesium 1.8 L, Iron 17 L, TIBC 328, Iron Saturation 5.2 L, Transferrin 234, Ferritin 11.3, Blood Type A Positive, Antibody Screen Negative 07/01/24 00:26: POC Glucose 430 H*, POC Glucose Comment 06/30/24 22:41: POC Glucose Comment Cleaned meter 06/30/24 22:41: POC Glucose 408 H*, POC Glucose Comment 06/30/24 20:50: Urine Color Light-yellow, Urine Appearance Clear, Urine pH 6.5, Ur Specific [place] 1.027, Urine Protein Negative, Urine Glucose (UA) >=1000 H, Urine Ketones Negative, Urine Occult Blood Negative, Urine Nitrite Negative, Urine Bilirubin Negative, Urine Urobilinogen Normal, Ur Leukocyte Esterase Negative 06/30/24 20:36: Corrected WBC 5.2, Uncorrected WBC Count 5.2, RBC 4.68, Hgb 11.0L, Hct 35.1, MCV 75.1 L, MCH 23.4 L, MCHC 31.2 L, RDW 22.6 H, Plt Count 65 L, MPV 8.8, Neut % (Auto) 74.5, Lymph % (Auto) 13.2, Richardson % (Auto) 10.2, Eos % (Auto) 1.0, Baso % (Auto) 1.1, Nucleat RBC Rel Count 0.0, Neut # (Auto) 3.9, Lymph # (Auto) 0.7 L, Richardson # (Auto) 0.5, Eos # (Auto) 0.1, Baso # (Auto) 0.1, Monocyte Dist Width 20.23 H, PHA Creatinine Clear 85.81, Sodium 128 L, Potassium4.5, Chloride 98, Carbon Dioxide 23.2, Anion Gap 11.3, BUN 10, Creatinine 0.59 L, Est GFR (CKD-EPI) > 60.0, Glucose 605 H*, Calcium 8.0 L, Total Bilirubin 1.2 H, Direct Bilirubin 0.50 H, Indirect Bilirubin 0.7, AST 43 H, ALT 34, Alkaline Phosphatase 201 H, Total Protein 6.5, Albumin 2.4 L, Globulin 4.1, Albumin/Globulin Ratio 0.6, Lipase 58.0 Microbiology Microbiology - Results from entire visit 07/03/24 15:15 Nasal Nasal Screen MRSA/MSSA - Final A&P - General Surgery (1) Closed right hip fracture: (2) Diabetes: (3) Hyperglycemia: (4) Thrombocytopenia: (5) Primary biliary cholangitis: (6) Tobacco dependence: (7) Non-healing wound: Plan On examination she has a nonhealing wound part of the issue is that she has heavy #1 Prolene sutures that are protruding through the incision preventing closure. The sutures on examination are not providing any function they do not hold any wound close they are just at this time loosely mobile. I therefore resected the sutures and dressed the wound. She can continue with wound care atthis time there is nothing further that I can offer her. If additional surgery is needed to possibly remove a mesh if there is a mesh in there then she will need to go back to her original surgeon or to someone at the [facility] where she is being treated for her cirrhosis. I will sign off the case at this time. Documented By: Kraig Hubbard DO 07/03/24 20 37 Signed By: <Electronically signed by Kraig Hubbard DO> 07/03/242044 [facility] Work Phone: [phone] 412-972105-05-2025 [place] [address] Hospitalist Progress Note Signed Patient: Teresa Lyle MR#: [id number] : 1960 Acct:[id number] Age/Sex: 64 / F Adm Date: 5 Loc: Room: [address] [place] [address] Type: ADM IN Attending Dr: Digna Roberto MD Copies to: ~ Date of Service: 07/03/2024 Subjective Subjective Narrative: Patient is seen and examined. No visitors are present. She awakens for my visit but mostly keeps her eyes shut. She indicates she is having some right hip pain, just finished working with therapy andbeing dialyzed out. Nursing staff brings to provider attention umbilical dressing from prior umbilical hernia repair. No records are available in [facility] or the [facility] EMR. I did discuss with her daughter Ladi, reports that she had complications after gallbladder surgery resulting in umbilical hernia and underwent hernia repair approximately 5 years ago as a part of [facility]. Daughter indicates there has been pain and drainage at the site ongoing since that time.. Seen by wound staff with culture obtained, appearance of sutures within the umbilicus are noted, malodorous purulent discharge reported. Exam Physical Exam Vital Signs: Temp Pulse Resp BP Pulse Ox O2 Del Method O2 Flow Rate 98.8 F 103 H 18 132/67 98 Room Air 8 07/03/24 07:57 07/03/24 07:57 07/03/24 07:57 07/03/24 07:57 07/03/24 07:57 07/03/24 08:00 07/02/24 09:20 Narrative: CONST- alert, in bed, elderly female CARD- RRR no abnormal heart tones PULM- dimin without wheeze or rhonchi, RA ABD- S/NT, NABS EXTREM- no edema BLE, calves nontender Skin?right hip surgical dressing in place site not seen. Ambulatory with dressing present, noted malodorous purulent drainage Objective Lab Results 07/03/24 05:42 07/03/24 05:42 Meds Allergies and Active Meds Allergies No Known Allergies Allergy (Verified 06/30/24 19:20) Active Meds: Active Medications Generic Name Dose Route Start Last Admin Trade Name Freq PRN Reason Stop Dose Admin Acetaminophen 650 mg 06/30/24 22:32 07/02/24 13:44 Acetaminophen 325 Mg Tablet PO 06/30/25 21:59 650 mg Q6HR PRN Administration Pain Scale 1 - 3 or fever Atorvastatin Calcium 10 mg 07/01/24 09:00 07/03/24 08:30 Atorvastatin 10 Mg Tablet PO 07/01/25 08:59 10 mg DAILY HARI Administration Dextrose 0 gm 06/30/24 22:05 Dextrose 50% In Water 25 Gm/50 Ml Syringe IV-PUSH 06/30/25 22:04 PRN PRN Hypoglycemia Furosemide 20 mg 07/01/24 09:00 07/03/24 08:30 Furosemide 20 Mg Tablet PO 07/01/25 08:59 20 mg DAILY HARI Administration Glucose 0 gm 06/30/24 22:05 Dextrose 40% Gel 15 Gm Tube PO 06/30/25 22:04 PRN PRN Hypoglycemia Hydromorphone HCl 0.5 mg 06/30/24 22:00 07/03/24 09:23 Hydromorphone 0.5 Mg/0.5 Ml Syringe IV-PUSH 0.5 mg Q4H PRN Administration Pain Scale 8 - 10 Lactated Ringer's 1,000 mls @ 50 mls/hr 07/01/24 00:05 07/02/24 16:39 Lactated Ringers IV 07/01/25 00:04 Not Given .Q20H HARI Ferric Sodium Gluconate 110 mls @ 110 mls/hr 07/02/24 09:00 07/03/24 08:41 Complex 125 mg/ Sodium IV 07/05/24 09:01 110 mls/hr Chloride QAM HARI Administration Insulin Aspart 0 units 07/01/24 08:00 07/03/24 08:31 Insulin Aspart 300 Units/3 Ml SUBCUT 07/01/25 07:59 12 units TID.WM.HS HARI Administration Protocol Insulin Aspart 4 units 07/01/24 11:30 07/03/24 08:31 Insulin Aspart 300 Units/3 Ml SUBCUT 07/01/25 11:29 4 units TID.AC HARI Administration Insulin Glargine 24 units 07/01/24 09:00 07/03/24 08:30 Insulin Glargine 300 Units/3 Ml Insuln.Pen SUBCUT 07/01/25 08:59 24 units DAILY HARI Administration Lactulose 10 gm 06/30/24 22:00 Lactulose 20 Gm/30 Ml Udc PO 06/30/25 21:59 DAILY PRN Constipation Lidocaine HCl 0.1 ml 06/30/24 23:04 Lidocaine 1% 50 Ml Vial INTRADERMA PREOP PRN Venipuncture x 1 Dose Magnesium Oxide 400 mg 07/01/24 09:00 07/03/24 08:29 Magnesium Oxide 400 Mg Tablet PO 07/01/25 08:59 400 mg DAILY HARI Administration Nicotine 1 each 07/01/24 10:50 07/03/24 08:32 Nicotine Patch 21 Mg/24hr 1 Each Patch.Td24 TRANSDERML 08/11/24 09:01 Not Given DAILY HARI Ursodiol 250 Mg 250 mg 07/01/24 09:00 07/03/24 08:33 Tablet PO 07/01/25 08:59 250 mg BID HARI Administration Ondansetron HCl 4 mg 06/30/24 22:00 Ondansetron 4 Mg/2 Ml Vial IV-PUSH 06/30/25 21:59 Q6H PRN Nausea And Vomiting Oxycodone HCl 5 mg 06/30/24 22:00 07/02/24 21:06 Oxycodone Ir 5 Mg Tablet PO 5 mg Q6HR PRN Administration Pain Scale 4 - 7 Pantoprazole Sodium 40 mg 07/01/24 09:00 07/03/24 08:29 Pantoprazole 40 Mg Tablet.Dr PO 07/01/25 08:59 40 mg DAILY HARI Administration Polyethylene Glycol 17 gm 07/01/24 09:00 07/03/24 08:29 Polyethylene Glycol 3350 17 Gm Powd.Pack PO 07/01/25 08:59 17 gm TID HARI Administration Sennosides 8.6 mg 07/01/24 09:00 07/03/24 08:33 Sennosides 8.6 Mg Tablet PO 07/01/25 08:59 Not Given BID HARI Sodium Chloride 0 ml 06/30/24 19:23 06/30/24 20:28 Sodium Chloride 0.9 % 10 Ml Syringe IV-PUSH 06/30/25 19:22 10 ml PRN PRN Administration Flush Sodium Chloride 0 ml 07/01/24 07:00 Sodium Chloride 0.9 % 10 Ml Syringe IV-PUSH 07/01/25 06:59 PRN PRN Flush Spironolactone 50 mg 07/01/24 09:00 07/03/24 08:30 Spironolactone 50 Mg Tablet PO 07/01/25 08:59 50 mg DAILY HARI Administration A&P - Hospitalist Assessment/Plan (1) Closed right hip fracture: (2) Diabetes: (3) Hyperglycemia: (4) Thrombocytopenia: (5) Primary biliary cholangitis: (6) Tobacco dependence: Plan Closed right intertrochanteric fracture s/p ORIF 07/23 Macrocytic anemia, iron deficient - Orthopedics on consult for further plan of care postop - Transfuse 2 units platelets preop, Ferrlecit - Therapy evaluations postop Chronic drainage from prior umbilical hernia repair site?reported approximately 5 years ago at the [facility] - Seen by wound nurses, culture obtained?pending, MRSA swab pending - Surgical consult - Ceftriaxone Hypomagnesemia - Replete, trend lab T1DM with hyperglycemia, uncontrolled -Glargine, SSIC, A1c 9.4 Tobacco dependence -Nicotine replacement, smoking cessation education Chronic conditions 1. PBC/Thrombocytopenia likely due to liver disease- no signs of bleeding, continues furosemide andspironolactone 2. HLD?atorvastatin, ursodiol Documented By: Sylvia Centeno APRN 07/23 1038 Signed By: 07/03/24 1432 07/03/24 2223 [facility]05-05-2025 [place] [address] General Surgery Consult Note Signed Patient: Teresa Lyle MR#: [id number] : 1960 Acct:[id number] Age/Sex: 64 / F Adm Date: 5 Loc: N Room: [address] [place] [address] Type: ADM IN Attending Dr: Digna Roberto MD Copies to: DO Chapis Madrid CNP, MD~ History of Present Illness Date of consult: 07/03/2024 Requesting/Attending Provider: Digna Roberto MD History of present illness: [place] was admitted for an ankle fracture and is currently under the care of the hospitalist as wellas orthopedic surgeon. I was consulted for a longstanding chronic wound of the umbilicus. The patient states that she had surgery in the past to repair an umbilical hernia, the area however continuesto seep and is not healing. She does have a specialist in [place] that take care of her. She apparently was not offered additional surgical treatment. [facility] Medical History Esophageal varices with band ligation BMI 22.0-22.9, adult Dietary counseling and surveillance Hyperlipidemia Lower GI bleed Diabetes type 2 Dietary counseling and surveillance Type 1 diabetes mellitus with hyperglycemia Vitamin D deficiency HTN (hypertension) GERD (gastroesophageal reflux disease) Asthma Arthritis Umbilical hernia PVD (peripheral vascular disease) COPD (chronic obstructive pulmonary disease) Rheumatoid arthritis Diabetes Surgical History History of hernia repair S/P TIPS (transjugular intrahepatic portosystemic shunt) History of cholecystectomy History of esophagogastroduodenoscopy (EGD) Family History Mother Diabetes Heart disease Father Diabetes Sister Diabetes Sister Diabetes Brother Cancer Legacy FamHx Relation: Brother(s); Legacy FamHx Problem: Diagnosed with Cancer Family history of mental disorder Legacy FamHx Relation: Brother(s); Legacy FamHx Problem: Diagnosed with Mental Illness Diabetes Legacy FamHx Relation: Brother(s) Father Dementia Diabetes Family/Other Legacy FamHx Problem: DENIES FAMILY HX OF COLON CANCER:1 daughter insulin resistant:1 sister cancer liver:1 brother blood cancer:1 brother cirrhois Grandparent Legacy FamHx Relation: Maternal Grand Father Grandparent Legacy FamHx Relation: Maternal Grand Mother Grandparent Diabetes Legacy FamHx Relation: Paternal Grand Father Legacy FamHx Relation: Paternal Grand Father Grandparent Legacy FamHx Relation: Paternal Grand Mother Diabetes Legacy FamHx Relation: Paternal Grand Mother Mother Diabetes Heart disease 63 yrs Mother Diabetes Sister Cancer Legacy FamHx Problem: Diagnosed with Cancer Diabetes Social History Smoking Status: Current every day smoker Tobacco Type: cigarettes Substance Use Type: None Social History Comments: muscle and tissue damage lives in a duplex Allergies & Medications Medications and Allergies Allergies No Known Allergies Allergy (Verified 06/30/24 19:20) Home Medications gabapentin 300 mg capsule 300 mg PO TID #0 caps 05/24/23 [Rx Confirmed 06/30/24] atorvastatin 10 mg tablet 10 mg PO DAILY 90 days #90 tabs 06/04/23 [Rx Confirmed 06/30/24] pantoprazole 40 mg tablet,delayed release 40 mg PO DAILY 06/15/23 [History Confirmed 06/30/24] polyethylene glycol 3350 17 gram/dose oral powder (Miralax) 17 g PO TID 06/15/23[History Confirmed 06/30/24] ursodiol 250 mg tablet 250 mg PO BID 06/15/23 [History Confirmed 06/30/24] insulin aspart (niacinamide)(U-100) 100 unit/mL(3 mL) subcutaneous pen (Fiasp FlexTouch U-100 Insulin) See Rx Instructions subcut USEASDIRECTD 90 days #15 mL 07/21/23 [Rx Confirmed 06/30/24] insulin degludec 100 unit/mL (3 mL) subcutaneous pen (Tresiba FlexTouch U-100 insulin) See Rx Instructions subcut DAILY 07/21/23 [History Confirmed 06/30/24] spironolactone 50 mg tablet 50 mg PO DAILY 07/21/23 [History Confirmed 06/30/24] blood sugar diagnostic (Enable HealthcareTouch Ultra Test strips) #400 ea 10/05/23 [Rx Confirmed 06/30/24] furosemide 20 mg tablet (Lasix) 20 mg PO DAILY 11/30/23 [History Confirmed 06/30/24] magnesium oxide 400 mg PO DAILY #90 tabs 11/30/23 [Rx Confirmed 06/30/24] Active Medications Acetaminophen (Acetaminophen 325 Mg Tablet) 650 mg PO Q6HR PRN PRN Reason: Pain Scale 1 - 3 or fever Stop: 06/30/25 21:59 Last Admin: 07/02/24 13:44 Dose: 650 mg Atorvastatin Calcium (Atorvastatin 10 Mg Tablet) 10 mg PO DAILY HARI Stop: 07/01/25 08:59 Last Admin: 07/03/24 08:30 Dose: 10 mg Dextrose (Dextrose 50% In Water 25 Gm/50 Ml Syringe) 0 gm IV-PUSH PRN PRN PRN Reason: Hypoglycemia Stop: 06/30/25 22:04 Furosemide (Furosemide 20 Mg Tablet) 20 mg PO DAILY [facility] Stop: 07/01/25 08:59 Last Admin: 07/03/24 08:30 Dose: 20 mg Glucose (Dextrose 40% Gel 15 Gm Tube) 0 gm PO PRN PRN PRN Reason: Hypoglycemia Stop: 06/30/25 22:04 Hydromorphone HCl (Hydromorphone 0.5 Mg/0.5 Ml Syringe) 0.5 mg IV-PUSH Q4H PRN PRN Reason: Pain Scale 8 - 10 Last Admin: 07/03/24 15:31 Dose: 0.5 mg Lactated Ringer's (Lactated Ringers) 1,000 mls @ 50 mls/hr IV .Q20H [facility] Stop: 07/01/25 00:04 Last Admin: 07/03/24 13:04 Dose: 50 mls/hr Ferric Sodium Gluconate Complex 125 mg/ Sodium Chloride 110 mls @ 110 mls/hr IVQAM [facility] Stop: 07/05/24 09:01 Last Admin: 07/03/24 08:41 Dose: 110 mls/hr Ceftriaxone Sodium (Rocephin) 1 gm in 50 mls @ 100 mls/hr IV Q24H [facility] Last Admin: 07/03/24 15:03 Dose: 100 mls/hr Insulin Aspart (Insulin Aspart 300 Units/3 Ml) 0 units SUBCUT TID.WM.HS [facility]; Protocol Stop: 07/01/25 07:59 Last Admin: 07/03/24 17:13 Dose: 14 units Insulin Aspart (Insulin Aspart 300 Units/3 Ml) 4 units SUBCUT TID.AC [facility] Stop: 07/01/25 11:29 Last Admin: 07/03/24 17:13 Dose: 4 units Insulin Glargine (Insulin Glargine 300 Units/3 Ml Insuln.Pen) 24 units SUBCUT DAILY [facility] Stop: 07/01/25 08:59 Last Admin: 07/03/24 08:30 Dose: 24 units Lactulose (Lactulose 20 Gm/30 Ml Udc) 10 gm PO DAILY PRN PRN Reason: Constipation Stop: 06/30/25 21:59 Lidocaine HCl (Lidocaine 1% 50 Ml Vial) 0.1 ml INTRADERMA PREOP PRN PRN Reason: Venipuncture x 1 Dose Magnesium Oxide (Magnesium Oxide 400 Mg Tablet) 400 mg PO DAILY [facility] Stop: 07/01/25 08:59 Last Admin: 07/03/24 08:29 Dose: 400 mg Nicotine (Nicotine Patch 21 Mg/24hr 1 Each Patch.Td24) 1 each TRANSDERML DAILY HARI Stop: 08/11/24 09:01 Last Admin: 07/03/24 08:32 Dose: Not Given Ursodiol 250 Mg (Tablet) 250 mg PO BID [facility] Stop: 07/01/25 08:59 Last Admin: 07/03/24 08:33 Dose: 250 mg Ondansetron HCl (Ondansetron 4 Mg/2 Ml Vial) 4 mg IV-PUSH Q6H PRN PRN Reason: Nausea And Vomiting Stop: 06/30/25 21:59 Oxycodone HCl (Oxycodone Ir 5 Mg Tablet) 5 mg PO Q6HR PRN PRN Reason: Pain Scale 4 - 7 Last Admin: 07/03/24 14:26 Dose: 5 mg Pantoprazole Sodium (Pantoprazole 40 Mg Tablet.Dr) 40 mg PO DAILY [facility] Stop: 07/01/25 08:59 Last Admin: 07/03/24 08:29 Dose: 40 mg Polyethylene Glycol (Polyethylene Glycol 3350 17 Gm Powd.Pack) 17 gm PO TID [facility] Stop: 07/01/25 08:59 Last Admin: 07/03/24 14:23 Dose: 17 gm Sennosides (Sennosides 8.6 Mg Tablet) 8.6 mg PO BID [facility] Stop: 07/01/25 08:59 Last Admin: 07/03/24 08:33 Dose: Not Given Sodium Chloride (Sodium Chloride 0.9 % 10 Ml Syringe) 0 ml IV-PUSH PRN PRN PRN Reason: Flush Stop: 06/30/25 19:22 Last Admin: 06/30/24 20:28 Dose: 10 ml Sodium Chloride (Sodium Chloride 0.9 % 10 Ml Syringe) 0 ml IV-PUSH PRN PRN PRN Reason: Flush Stop: 07/01/25 06:59 Spironolactone (Spironolactone 50 Mg Tablet) 50 mg PO DAILY [facility] Stop: 07/01/25 08:59 Last Admin: 07/03/24 08:30 Dose: 50 mg Exam Physical Exam Vital Signs: Temp Pulse Resp BP Pulse Ox O2 Del Method O2 Flow Rate 98.5 F 103 H 18 118/65 98 Room Air 8 07/03/24 15:10 07/03/24 15:10 07/03/24 15:10 07/03/24 15:10 07/03/24 15:10 07/03/24 16:00 07/02/24 09:20 Const General: cooperative Nutritional Appearance: average body habitus Orientation: alert, awake and oriented x3 Resp Effort & Inspection: normal respiratory effort and able to speak in complete sentences Auscultation: clear to auscultation bilaterally GI Inspection: non-distended Palpation: soft and no guarding Auscultation: normal bowel sounds Other: Examination of her abdomen shows a nonhealing wound of the umbilicus. There is some drainage in thearea in addition there are several heavy #1 Prolene suturesthat are sticking out of the wound. On examination they are not providing any function there is loosely lying there. They did will however prevent healing ofthe wound as they protrude through the skin. Results - Gen. Surgery Intake and Output 24 hour I&O: Intake & Output 07/03/24 07/03/24 07/03/24 07:59 15:59 23:59 Intake Total 630 / 730 100 / 730 Output Total 650 / 1250 350 / 1250 250 / 1250 Balance -650 / -520 280 / -520 -150 / -520 Weight 66.7 kg Labs 07/03/24 05:42 07/03/24 05:42 Laboratory Results - last 72 hr 07/03/24 15:26: POC Glucose 369 07/03/24 12:36: POC Glucose Comment Cleaned meter 07/03/24 12:36: POC Glucose 412 H*, POC Glucose Comment 07/03/24 12:34: POC Glucose 438 H*, POC Glucose Comment 07/03/24 07:52: POC Glucose 302 07/03/24 05:42: Corrected WBC 5.8, Uncorrected WBC Count 5.8, RBC 3.59 L, Hgb 8.6 L, Hct 26.9 L, MCV 74.9 L, MCH 24.1 L, MCHC 32.2, RDW 21.7 H, Plt Count 106 L, MPV 9.1, Neut % (Auto) 72.8, Lymph % (Auto) 10.5, Richardson % (Auto) 15.7, Eos % (Auto) 0.4, Baso % (Auto) 0.6, Nucleat RBC Rel Count 0.1, Neut# (Auto) 4.2, Lymph # (Auto) 0.6 L, Richardson # (Auto) 0.9 H, Eos # (Auto) 0.0, Baso # (Auto) 0.0, PHA Creatinine Clear 94.15, Sodium 128 L, Potassium 4.5, Chloride 99, Carbon Dioxide 23.9, Anion Gap 9.6,BUN 18, Creatinine 0.49 L, Est GFR (CKD-EPI) > 60.0, Glucose 291 H, Calcium 7.4 L 07/02/24 21:06: POC Glucose 351 07/02/24 16:37: POC Glucose 222 07/02/24 11:52: POC Glucose 267 07/02/24 10:37: POC Glucose 266 07/02/24 09:28: POC Glucose 208 07/02/24 07:54: POC Glucose 249, POC Glucose Comment Glu2: cleaned meter 07/02/24 06:57: Corrected WBC 5.2, Uncorrected WBC Count 5.2, RBC 3.84, Hgb 9.0 L, Hct 28.1 L, MCV 73.1 L, MCH 23.5 L, MCHC 32.1, RDW 21.2 H, Plt Count 88 L, MPV 8.3, Neut % (Auto) 65.5, Lymph % (Auto) 16.8, Richardson % (Auto) 14.2, Eos % (Auto) 1.1, Baso % (Auto) 2.4, Nucleat RBC Rel Count 0.1, Neut # (Auto) 3.4, Lymph # (Auto) 0.9 L, Richardson # (Auto) 0.7, Eos # (Auto) 0.1, Baso # (Auto) 0.1, PT14.0 H, INR 1.2, B-Natriuretic Peptide 50.0 07/01/24 22:11: Corrected WBC 5.3, Uncorrected WBC Count 5.3, RBC 3.85, Hgb 9.0 L, Hct 28.2 L, MCV 73.2 L, MCH 23.5 L, MCHC 32.1, RDW 21.2 H, Plt Count 85 L D, MPV 8.4, Neut % (Auto) 64.6, Lymph % (Auto) 18.3, Richardson % (Auto) 13.8, Eos % (Auto) 2.0, Baso % (Auto) 1.3, Nucleat RBC Rel Count 0.1, Neut # (Auto) 3.4, Lymph # (Auto) 1.0, Richardson # (Auto) 0.7, Eos # (Auto) 0.1, Baso # (Auto) 0.1 07/01/24 21:54: POC Glucose 261 07/01/24 16:44: POC Glucose 351 07/01/24 11:58: POC Glucose 270 07/01/24 09:02: POC Glucose 269 07/01/24 05:50: Corrected WBC 5.9, Uncorrected WBC Count 5.9, RBC 3.99, Hgb 9.5 L, Hct 29.5 L, MCV 73.9 L, MCH 23.7 L, MCHC 32.1, RDW 21.8 H, Plt Count 58 L, MPV 8.8, Neut % (Auto) 71.7, Lymph % (Auto) 13.6, Richardson % (Auto) 12.8, Eos % (Auto) 1.1, Baso % (Auto) 0.8, Nucleat RBC Rel Count 0.1, Neut # (Auto) 4.2, Lymph # (Auto) 0.8 L, Richardson # (Auto) 0.8, Eos # (Auto) 0.1, Baso # (Auto) 0.0, PT13.6 H, INR 1.2, APTT 37.3 H, PHA Creatinine Clear 118.29, Sodium 132 L, Potassium 4.0, Chloride 105, CarbonDioxide 23.5, Anion Gap 7.5, BUN 11, Creatinine 0.39 L, Est GFR (CKD-EPI) > 60.0, Glucose 294 H D, Estimat Average Glucose 332, Hemoglobin A1c 13.2 H, Calcium 7.7 L, Magnesium 1.8 L, Iron 17 L, TIBC 328, Iron Saturation 5.2 L, Transferrin 234, Ferritin 11.3, Blood Type A Positive, Antibody Screen Negative 07/01/24 00:26: POC Glucose 430 H*, POC Glucose Comment 06/30/24 22:41: POC Glucose Comment Cleaned meter 06/30/24 22:41: POC Glucose 408 H*, POC Glucose Comment 06/30/24 20:50: Urine Color Light-yellow, Urine Appearance Clear, Urine pH 6.5, Ur Specific Gravity1.027, Urine Protein Negative, Urine Glucose (UA) >=1000 H, Urine Ketones Negative, Urine OccultBlood Negative, Urine Nitrite Negative, Urine Bilirubin Negative, Urine Urobilinogen Normal, Ur Leukocyte Esterase Negative 06/30/24 20:36: Corrected WBC 5.2, Uncorrected WBC Count 5.2, RBC 4.68, Hgb 11.0L, Hct 35.1, MCV 75.1 L, MCH 23.4 L, MCHC 31.2 L, RDW 22.6 H, Plt Count 65 L, MPV 8.8, Neut % (Auto) 74.5, Lymph % (Auto) 13.2, Richardson % (Auto) 10.2, Eos % (Auto) 1.0, Baso % (Auto) 1.1, Nucleat RBC Rel Count 0.0, Neut # (Auto) 3.9, Lymph # (Auto) 0.7 L, Richardson # (Auto) 0.5, Eos # (Auto) 0.1, Baso # (Auto) 0.1, Monocyte Dist Width 20.23 H, PHA Creatinine Clear 85.81, Sodium 128 L, Potassium4.5, Chloride 98, Carbon Dioxide 23.2, Anion Gap 11.3, BUN 10, Creatinine 0.59 L, Est GFR (CKD-EPI) > 60.0, Glucose 605 H*, Calcium 8.0 L, Total Bilirubin 1.2 H, Direct Bilirubin 0.50 H, Indirect Bilirubin 0.7, AST 43 H, ALT 34, Alkaline Phosphatase 201 H, Total Protein 6.5, Albumin 2.4 L, Globulin 4.1, Albumin/Globulin Ratio0.6, Lipase 58.0 Microbiology Microbiology - Results from entire visit 07/03/24 15:15 Nasal Nasal Screen MRSA/MSSA - Final A&P - General Surgery (1) Closed right hip fracture: (2) Diabetes: (3) Hyperglycemia: (4) Thrombocytopenia: (5) Primary biliary cholangitis: (6) Tobacco dependence: (7) Non-healing wound: Plan On examination she has a nonhealing wound part of the issue is that she has heavy #1 Prolene sutures that are protruding through the incision preventing closure. The sutures on examination are not providing any function they do not hold any wound close they are just at this time loosely mobile. I therefore resected the sutures and dressed the wound. She can continue with wound care atthis time there is nothing further that I can offer her. If additional surgery is needed to possibly remove a mesh if there is a mesh in there then she will need to go back to her original surgeon or to someone at the [facility] where she is being treated for her cirrhosis. I will sign off the case at this time. Documented By: Kraig Hubbard, 07/03/24 Signed By: 07/03/242044 [facility]05-05-2025 Consult note Author Tremayne Pak [facility] Note Date/Time July 03, 2024 1:47pm [facility] [address] [place] [address] Physiatry (Rehab) Consult Note Signed Patient: Teresa Lyle MR#: [id number] : 1960 Acct:[id number] Age/Sex: 64 / F Adm Date: 5 Loc: Room: [address] [place] [address] Type: ADM IN Attending Dr: Digna Roberto MD Copies to: MD Chapis Delatorre CIRCULATION ASSISTANT Digna Roberto MD~ HPI Consult Date: 07/03/24 Requesting Physician: Digna Roberto MD Primary Care Provider: Chapis Lewis NP-C Consult Narrative Reason for consult: Evaluation for inpatient rehab HPI: Ms. Lyle is a 64 year old female with a PMH of cirrhosis of the liver, primary biliary sclerosis, rectal varices, esophageal varices, TIPS procedure, T2DM, COPD, PVD who presents with multifactorial functional decline in the setting of right hip fracture s/p TFN. Patient seen today. Lying in bed. Admits to significant pain in the right hip. No chest pain, SOB, fever, chills. Noted functional deficits. Review of Systems Review of Systems All other systems reviewed & are negative unless noted below or in HPI [facility] Medical History Esophageal varices with band ligation BMI 22.0-22.9, adult Dietary counseling and surveillance Hyperlipidemia Lower GI bleed Diabetes type 2 Dietary counseling and surveillance Type 1 diabetes mellitus with hyperglycemia Vitamin D deficiency HTN (hypertension) GERD (gastroesophageal reflux disease) Asthma Arthritis Umbilical hernia PVD (peripheral vascular disease) COPD (chronic obstructive pulmonary disease) Rheumatoid arthritis Diabetes Surgical History History of hernia repair S/P TIPS (transjugular intrahepatic portosystemic shunt) History of cholecystectomy History of esophagogastroduodenoscopy (EGD) Family History Mother Diabetes Heart disease Father Diabetes Sister Diabetes Sister Diabetes Brother Cancer Legacy FamHx Relation: Brother(s); Legacy FamHx Problem: Diagnosed with Cancer Family history of mental disorder Legacy FamHx Relation: Brother(s); Legacy FamHx Problem: Diagnosed with Mental Illness Diabetes Legacy FamHx Relation: Brother(s) Father Dementia Diabetes Family/Other Legacy FamHx Problem: DENIES FAMILY HX OF COLON CANCER:1 daughter insulin resistant:1 sister cancer liver:1 brother blood cancer:1 brother cirrhois Grandparent Legacy FamHx Relation: Maternal Grand Father Grandparent Legacy FamHx Relation: Maternal Grand Mother Grandparent Diabetes Legacy FamHx Relation: Paternal Grand Father Legacy FamHx Relation: Paternal Grand Father Grandparent Legacy FamHx Relation: Paternal Grand Mother Diabetes Legacy FamHx Relation: Paternal Grand Mother Mother Diabetes Heart disease 63 yrs Mother Diabetes Sister Cancer Legacy FamHx Problem: Diagnosed with Cancer Diabetes Social History Smoking Status: Current every day smoker Tobacco Type: cigarettes Substance Use Type: None Social History Comments: muscle and tissue damage lives in a duplex Meds Medications and Allergies Allergies No Known Allergies Allergy (Verified 06/30/24 19:20) Home Medications gabapentin 300 mg capsule 300 mg PO TID #0 caps 05/24/23 [Rx Confirmed 06/30/24] atorvastatin 10 mg tablet 10 mg PO DAILY 90 days #90 tabs 06/04/23 [Rx Confirmed 06/30/24] pantoprazole 40 mg tablet,delayed release 40 mg PO DAILY 06/15/23 [History Confirmed 06/30/24] polyethylene glycol 3350 17 gram/dose oral powder (Miralax) 17 g PO TID 06/15/23[History Confirmed 06/30/24] ursodiol 250 mg tablet 250 mg PO BID 06/15/23 [History Confirmed 06/30/24] insulin aspart (niacinamide)(U-100) 100 unit/mL(3 mL) subcutaneous pen (Fiasp FlexTouch U-100 Insulin) See Rx Instructions subcut USEASDIRECTD 90 days #15 mL 07/21/23 [Rx Confirmed 06/30/24] insulin degludec 100 unit/mL (3 mL) subcutaneous pen (Tresiba FlexTouch U-100 insulin) See Rx Instructions subcut DAILY 07/21/23 [History Confirmed 06/30/24] spironolactone 50 mg tablet 50 mg PO DAILY 07/21/23 [History Confirmed 06/30/24] blood sugar diagnostic (Enable HealthcareTouch Ultra Test strips) #400 ea 10/05/23 [Rx Confirmed 06/30/24] furosemide 20 mg tablet (Lasix) 20 mg PO DAILY 11/30/23 [History Confirmed 06/30/24] magnesium oxide 400 mg PO DAILY #90 tabs 11/30/23 [Rx Confirmed 06/30/24] Exam Physical Exam Vital Signs: Temp Pulse Resp BP Pulse Ox O2 Del Method O2 Flow Rate 98.4 F 103 H 18 118/66 98 Room Air 8 07/03/24 12:00 07/03/24 12:00 07/03/24 12:00 07/03/24 12:00 07/03/24 12:00 07/03/24 12:00 07/02/24 09:20 Narrative: NAD. Resting in bed. Appears uncomfortable due to pain Extremities well perfused No respiratory distress RLE strength and ROM limited by pain Abdomen soft, non distended Results - Phys. Rehab Labs Labs: Laboratory Results - last 24 hr 07/01/24 07/02/24 07/02/24 05:50 16:37 21:06 Corrected WBC Uncorrected WBC Count RBC Hgb Hct MCV MCH MCHC RDW Plt Count MPV Neut % (Auto) Lymph % (Auto) Richardson % (Auto) Eos % (Auto) Baso % (Auto) Nucleat RBC Rel Count Neut # (Auto) Lymph # (Auto) Richardson # (Auto) Eos # (Auto) Baso # (Auto) PHA Creatinine Clear Sodium Potassium Chloride Carbon Dioxide Anion Gap BUN Creatinine Est GFR (CKD-EPI) Glucose POC Glucose 222 351 POC Glucose Comment Calcium Blood Type A Positive Antibody Screen Negative 07/03/24 07/03/24 07/03/24 05:42 07:52 12:34 Corrected WBC 5.8 Uncorrected WBC Count 5.8 RBC 3.59 L Hgb 8.6 L Hct 26.9 L MCV 74.9 L MCH 24.1 L MCHC 32.2 RDW 21.7 H Plt Count 106 L MPV 9.1 Neut % (Auto) 72.8 Lymph % (Auto) 10.5 Richardson % (Auto) 15.7 Eos % (Auto) 0.4 Baso % (Auto) 0.6 Nucleat RBC Rel Count 0.1 Neut # (Auto) 4.2 Lymph # (Auto) 0.6 L Richardson # (Auto) 0.9 H Eos # (Auto) 0.0 Baso # (Auto) 0.0 PHA Creatinine Clear 94.15 Sodium 128 L Potassium 4.5 Chloride 99 Carbon Dioxide 23.9 Anion Gap 9.6 BUN 18 Creatinine 0.49 L Est GFR (CKD-EPI) > 60.0 Glucose 291 H POC Glucose 302 438 H* POC Glucose Comment Calcium 7.4 L Blood Type Antibody Screen 07/03/24 07/03/24 12:36 12:36 Corrected WBC Uncorrected WBC Count RBC Hgb Hct MCV MCH MCHC RDW Plt Count MPV Neut % (Auto) Lymph % (Auto) Richardson % (Auto) Eos % (Auto) Baso % (Auto) Nucleat RBC Rel Count Neut # (Auto) Lymph # (Auto) Richardson # (Auto) Eos # (Auto) Baso # (Auto) PHA Creatinine Clear Sodium Potassium Chloride Carbon Dioxide Anion Gap BUN Creatinine Est GFR (CKD-EPI) Glucose POC Glucose 412 H* POC Glucose Comment Cleaned meter Calcium Blood Type Antibody Screen Assessment/Plan (1) Fall: (2) Intertrochanteric fracture of right hip: (3) Tobacco dependence: (4) Vitamin D deficiency: (5) HTN (hypertension): Qualifiers: Hypertension type: unspecified Qualified Code(s): I10 - Essential (primary) hypertension (6) Hyperlipidemia: Qualifiers: Hyperlipidemia type: unspecified Qualified Code(s): E78.5 - Hyperlipidemia, unspecified (7) Cirrhosis of liver with ascites: Qualifiers: Hepatic cirrhosis type: unspecified hepatic cirrhosis Qualified Code(s): K74.60 - Unspecified cirrhosis of liver; R18.8 - Other ascites (8) Impaired mobility and activities of daily living: Plan This is a 64-year-old female who presents with multifactorial functional declinein the setting of right femur fracture s/p TFN. She has continued impaired mobility and impaired independence with ADLs and IADLs requiring PT/OT 5-7 days/week 3 hours/day to maximize safety and independence with functional ability and self-care. Primary Rehabilitation Diagnosis: Hip fracture Patient is appropriate for acute inpatient rehab facility once medically stable per primary service and consultants. The patient has functional deficits requiring both active and ongoing therapeutic intervention of at least 2 disciplines of therapy, physical therapy/Occupational Therapy +/- speech therapy. Patient has worked appropriately with multiple disciplines of therapy on acute care, and demonstrates ability to tolerate and participate and make reasonable gains with at least a 15 hour/week inpatient rehabilitation program. Due to medical complexity as noted, rehabilitation physician supervision is bothreasonable and necessary, including [id number] visits at least 3 days/week with the need to treat, manage and modify course of treatment, including participating in at least once weekly interdisciplinary team conferences. The patient requires multidisciplinary rehabilitation treatment including rehabilitation physician at least 3 times per week, 24-hour rehabilitation nursing, physical occupational therapy, plus/minus speech-language pathology, rehabilitation case management, nutrition services, plus minus rehabilitation psychology. This case cannot be best/most appropriately managed at a lower level of care. Estimated length of rehabilitation stay: 12 Days Prior Level of Function: IND Expected functional status at discharge from rehab: Self-care (ADLs) : Mod I Bed Mobility/Transfers: Mod I Ambulation: Mod I There is a reasonable plan in place for discharge to the community. Overall prognosis is fair to good to make functional gains that would make substantial difference in the eventual discharge setting. Patient was personally seen by me, Dr. Pak, on the day of encounter, reviewed the history and the relevant portions of the chart, including current orders, allied health and contamination consultant notes, labs/imaging and performed carbone elements of exam and I formulated the plan of care and facilitated the medical decision making. I completed a substantive portion of this encounter, the medical decision makingportion of this note in its entirety, including Allied health note review, nursing note review, contamination consultant note review, discussion with nursing and case management, and more than 50% of my time was spent on counseling and coordination of care, time spent 50 minutes Documented By: Tremayne Pak MD [id number] Signed By: <Electronically signed by Tremayne Pak MD> 07/03/24 1342 [facility] Work Phone: [phone] 305-932505-05-2025 [place] [address] Physiatry (Rehab) Consult Note Signed Patient: Teresa Lyle MR#: [id number] : 1960 Acct:[id number] Age/Sex: 64 / F Adm Date: 5 Loc: 4N Room: [address] [place] [address] Type: ADM IN Attending Dr: Digna Roberto MD Copies to: MD Chapis Delatorre CIRCULATION ASSISTANT Digna Roberto MD~ HPI Consult Date: 07/03/24 Requesting Physician: Digna Roberto MD Primary Care Provider: Chapis Lewis JITTERBUG OPERATOR-C Consult Narrative Reason for consult: Evaluation for inpatient rehab HPI: Ms. Lyle is a 64 year old female with a PMH of cirrhosis of the liver, primary biliary sclerosis, rectal varices, esophageal varices, TIPS procedure, T2DM, COPD, PVD who presents with multifactorial functional decline in the setting of right hip fracture s/p TFN. Patient seen today. Lying in bed. Admits to significant pain in the right hip. No chest pain, SOB, fever, chills. Noted functional deficits. Review of Systems Review of Systems All other systems reviewed & are negative unless noted below or in HPI [facility] Medical History Esophageal varices with band ligation BMI 22.0-22.9, adult Dietary counseling and surveillance Hyperlipidemia Lower GI bleed Diabetes type 2 Dietary counseling and surveillance Type 1 diabetes mellitus with hyperglycemia Vitamin D deficiency HTN (hypertension) GERD (gastroesophageal reflux disease) Asthma Arthritis Umbilical hernia PVD (peripheral vascular disease) COPD (chronic obstructive pulmonary disease) Rheumatoid arthritis Diabetes Surgical History History of hernia repair S/P TIPS (transjugular intrahepatic portosystemic shunt) History of cholecystectomy History of esophagogastroduodenoscopy (EGD) Family History Mother Diabetes Heart disease Father Diabetes Sister Diabetes Sister Diabetes Brother Cancer Legacy FamHx Relation: Brother(s); Legacy FamHx Problem: Diagnosed with Cancer Family history of mental disorder Legacy FamHx Relation: Brother(s); Legacy FamHx Problem: Diagnosed with Mental Illness Diabetes Legacy FamHx Relation: Brother(s) Father Dementia Diabetes Family/Other Legacy FamHx Problem: DENIES FAMILY HX OF COLON CANCER:1 daughter insulin resistant:1 sister cancer liver:1 brother blood cancer:1 brother cirrhois Grandparent Legacy FamHx Relation: Maternal Grand Father Grandparent Legacy FamHx Relation: Maternal Grand Mother Grandparent Diabetes Legacy FamHx Relation: Paternal Grand Father Legacy FamHx Relation: Paternal Grand Father Grandparent Legacy FamHx Relation: Paternal Grand Mother Diabetes Legacy FamHx Relation: Paternal Grand Mother Mother Diabetes Heart disease 63 yrs Mother Diabetes Sister Cancer Legacy FamHx Problem: Diagnosed with Cancer Diabetes Social History Smoking Status: Current every day smoker Tobacco Type: cigarettes Substance Use Type: None Social History Comments: muscle and tissue damage lives in a duplex Meds Medications and Allergies Allergies No Known Allergies Allergy (Verified 06/30/24 19:20) Home Medications gabapentin 300 mg capsule 300 mg PO TID #0 caps 05/24/23 [Rx Confirmed 06/30/24] atorvastatin 10 mg tablet 10 mg PO DAILY 90 days #90 tabs 06/04/23 [Rx Confirmed 06/30/24] pantoprazole 40 mg tablet,delayed release 40 mg PO DAILY 06/15/23 [History Confirmed 06/30/24] polyethylene glycol 3350 17 gram/dose oral powder (Miralax) 17 g PO TID 06/15/23[History Confirmed 06/30/24] ursodiol 250 mg tablet 250 mg PO BID 06/15/23 [History Confirmed 06/30/24] insulin aspart (niacinamide)(U-100) 100 unit/mL(3 mL) subcutaneous pen (Fiasp FlexTouch U-100 Insulin) See Rx Instructions subcut USEASDIRECTD 90 days #15 mL 07/21/23 [Rx Confirmed 06/30/24] insulin degludec 100 unit/mL (3 mL) subcutaneous pen (Tresiba FlexTouch U-100 insulin) See Rx Instructions subcut DAILY 07/21/23 [History Confirmed 06/30/24] spironolactone 50 mg tablet 50 mg PO DAILY 07/21/23 [History Confirmed 06/30/24] blood sugar diagnostic (Enable HealthcareTouch Ultra Test strips) #400 ea 10/05/23 [Rx Confirmed 06/30/24] furosemide 20 mg tablet (Lasix) 20 mg PO DAILY 11/30/23 [History Confirmed 06/30/24] magnesium oxide 400 mg PO DAILY #90 tabs 11/30/23 [Rx Confirmed 06/30/24] Exam Physical Exam Vital Signs: Temp Pulse Resp BP Pulse Ox O2 Del Method O2 Flow Rate 98.4 F 103 H 18 118/66 98 Room Air 8 07/03/24 12:00 07/03/24 12:00 07/03/24 12:00 07/03/24 12:00 07/03/24 12:00 07/03/24 12:00 07/02/24 09:20 Narrative: NAD. Resting in bed. Appears uncomfortable due to pain Extremities well perfused No respiratory distress RLE strength and ROM limited by pain Abdomen soft, non distended Results - Phys. Rehab Labs Labs: Laboratory Results - last 24 hr 07/01/24 07/02/24 07/02/24 05:50 16:37 21:06 Corrected WBC Uncorrected WBC Count RBC Hgb Hct MCV MCH MCHC RDW Plt Count MPV Neut % (Auto) Lymph % (Auto) Richardson % (Auto) Eos % (Auto) Baso % (Auto) Nucleat RBC Rel Count Neut # (Auto) Lymph # (Auto) Richardson # (Auto) Eos # (Auto) Baso # (Auto) PHA Creatinine Clear Sodium Potassium Chloride Carbon Dioxide Anion Gap BUN Creatinine Est GFR (CKD-EPI) Glucose POC Glucose 222 351 POC Glucose Comment Calcium Blood Type A Positive Antibody Screen Negative 07/03/24 07/03/24 07/03/24 05:42 07:52 12:34 Corrected WBC 5.8 Uncorrected WBC Count 5.8 RBC 3.59 L Hgb 8.6 L Hct 26.9 L MCV 74.9 L MCH 24.1 L MCHC 32.2 RDW 21.7 H Plt Count 106 L MPV 9.1 Neut % (Auto) 72.8 Lymph % (Auto) 10.5 Richardson % (Auto) 15.7 Eos % (Auto) 0.4 Baso % (Auto) 0.6 Nucleat RBC Rel Count 0.1 Neut # (Auto) 4.2 Lymph # (Auto) 0.6 L Richardson # (Auto) 0.9 H Eos # (Auto) 0.0 Baso # (Auto) 0.0 PHA Creatinine Clear 94.15 Sodium 128 L Potassium 4.5 Chloride 99 Carbon Dioxide 23.9 Anion Gap 9.6 BUN 18 Creatinine 0.49 L Est GFR (CKD-EPI) > 60.0 Glucose 291 H POC Glucose 302 438 H* POC Glucose Comment Calcium 7.4 L Blood Type Antibody Screen 07/03/24 07/03/24 12:36 12:36 Corrected WBC Uncorrected WBC Count RBC Hgb Hct MCV MCH MCHC RDW Plt Count MPV Neut % (Auto) Lymph % (Auto) Richardson % (Auto) Eos % (Auto) Baso % (Auto) Nucleat RBC Rel Count Neut # (Auto) Lymph # (Auto) Richardson # (Auto) Eos # (Auto) Baso # (Auto) PHA Creatinine Clear Sodium Potassium Chloride Carbon Dioxide Anion Gap BUN Creatinine Est GFR (CKD-EPI) Glucose POC Glucose 412 H* POC Glucose Comment Cleaned meter Calcium Blood Type Antibody Screen Assessment/Plan (1) Fall: (2) Intertrochanteric fracture of right hip: (3) Tobacco dependence: (4) Vitamin D deficiency: (5) HTN (hypertension): Qualifiers: Hypertension type: unspecified Qualified Code(s): I10 - Essential (primary) hypertension (6) Hyperlipidemia: Qualifiers: Hyperlipidemia type: unspecified Qualified Code(s): E78.5 - Hyperlipidemia, unspecified (7) Cirrhosis of liver with ascites: Qualifiers: Hepatic cirrhosis type: unspecified hepatic cirrhosis Qualified Code(s): K74.60 - Unspecified cirrhosis of liver; R18.8 - Other ascites (8) Impaired mobility and activities of daily living: Plan This is a 64-year-old female who presents with multifactorial functional declinein the setting of right femur fracture s/p TFN. She has continued impaired mobility and impaired independence with ADLsand IADLs requiring PT/OT 5-7 days/week 3 hours/day to maximize safety and independence with functional ability and self-care. Primary Rehabilitation Diagnosis: Hip fracture Patient is appropriate for acute inpatient rehab facility once medically stable per primary serviceand consultants. The patient has functional deficits requiring both active and ongoing therapeutic intervention of at least 2 disciplines of therapy, physical therapy/Occupational Therapy +/- speech t herapy. Patient has worked appropriately with multiple disciplines of therapy on acute care, and demonstrates ability to tolerate and participate and make reasonable gains with at least a 15 hour/week inpatient rehabilitation program. Due to medical complexity as noted, rehabilitation physician supervision is bothreasonable and necessary, including [id number] visits at least 3 days/week with the need to treat, manage and modify course of treatment, including participating in at least once weekly interdisciplinary team conferences. The patient requires multidisciplinary rehabilitation treatment including rehabilitation physician at least 3 times per week, 24-hour rehabilitation nursing, physical occupational therapy, plus/minusspeech-language pathology, rehabilitation case management, nutrition services, plus minus rehabilitation psychology. This case cannot be best/most appropriately managed at a lower level of care. Estimated length of rehabilitation stay: 12 Days Prior Level of Function: IND Expected functional status at discharge from rehab: Self-care (ADLs) : Mod I Bed Mobility/Transfers: Mod I Ambulation: Mod I There is a reasonable plan in place for discharge to the community. Overall prognosis is fair to good to make functional gains that would make substantial difference in the eventual discharge setting. Patient was personally seen by me, Dr. Pak, on the day of encounter, reviewed the history and the relevant portions of the chart, including current orders, allied health and contamination consultant notes, labs/imaging and performed carbone elements of exam and I formulated the plan of care and facilitated the medical decision making. I completed a substantive portion of this encounter, the medical decision makingportion of this note in its entirety, including Allied health note review, nursing note review, contamination consultant note review,discussion with nursing and case management, and more than 50% of my time was spent on counseling and coordination of care, time spent 50 minutes Documented By: Tremayne Pak MD 1332 Signed By: 07/03/24 1347 [facility]05-05-2025 Progress note Author Roger Robbins [facility] Note Date/Time July 03, 2024 8:21am [facility] [address] [place], [place] [id number] Orthopedic Progress Note Signed Patient: Teresa Lyle MR#: [id number] : 1960 Acct:[id number] Age/Sex: 64 / F Adm Date: 5 Loc: 4N Room: 2C8637-6 Type: ADM IN Attending Dr: Digna Roberto MD Copies to: ~ Date of Service: 07/03/2024 Subjective Subjective Interval History: Patient doing well today. No complaints. Pain well-controlled Exam Physical Exam Vital Signs: Temp Pulse Resp BP Pulse Ox O2 Del Method O2 Flow Rate 98.7 F 100 16 132/68 96 Room Air 8 07/03/24 04:35 07/03/24 04:35 07/03/24 04:35 07/03/24 04:35 07/03/24 04:35 07/03/24 04:35 07/02/24 09:20 Narrative: Patient seen evaluated on regular nursing floor. She is resting in supine position. She is alert and pleasant conversation. No acute distress. Right hip evaluated. Surgical dressings benign. Thigh is soft compressible. Motions tolerable. Able to move the foot and ankle today without difficulty. No abnormal calf tenderness Objective Labs Labs: Laboratory Results - last 24 hr 07/01/24 07/02/24 07/02/24 05:50 06:57 07:54 Corrected WBC Uncorrected WBC Count RBC Hgb Hct MCV MCH MCHC RDW Plt Count MPV Neut % (Auto) Lymph % (Auto) Richardson % (Auto) Eos % (Auto) Baso % (Auto) Nucleat RBC Rel Count Neut # (Auto) Lymph # (Auto) Richardson # (Auto) Eos # (Auto) Baso # (Auto) PT 14.0 H INR 1.2 PHA Creatinine Clear Sodium Potassium Chloride Carbon Dioxide Anion Gap BUN Creatinine Est GFR (CKD-EPI) Glucose POC Glucose 249 POC Glucose Comment Glu2: cleaned meter Calcium B-Natriuretic Peptide 50.0 Blood Type A Positive Antibody Screen Negative 05/06/2307/02/24 07/02/24 09:28 10:37 11:52 Corrected WBC Uncorrected WBC Count RBC Hgb Hct MCV MCH MCHC RDW Plt Count MPV Neut % (Auto) Lymph % (Auto) Richardson % (Auto) Eos % (Auto) Baso % (Auto) Nucleat RBC Rel Count Neut # (Auto) Lymph # (Auto) Richardson # (Auto) Eos # (Auto) Baso # (Auto) PT INR PHA Creatinine Clear Sodium Potassium Chloride Carbon Dioxide Anion Gap BUN Creatinine Est GFR (CKD-EPI) Glucose POC Glucose 208 266 267 POC Glucose Comment Calcium B-Natriuretic Peptide Blood Type Antibody Screen 07/02/24 07/02/24 07/03/24 16:37 21:06 05:42 Corrected WBC 5.8 Uncorrected WBC Count 5.8 RBC 3.59 L Hgb 8.6 L Hct 26.9 L MCV 74.9 L MCH 24.1 L MCHC 32.2 RDW 21.7 H Plt Count 106 L MPV 9.1 Neut % (Auto) 72.8 Lymph % (Auto) 10.5 Richardson % (Auto) 15.7 Eos % (Auto) 0.4 Baso % (Auto) 0.6 Nucleat RBC Rel Count 0.1 Neut # (Auto) 4.2 Lymph # (Auto) 0.6 L Richardson # (Auto) 0.9 H Eos # (Auto) 0.0 Baso # (Auto) 0.0 PT INR PHA Creatinine Clear 94.15 Sodium 128 L Potassium 4.5 Chloride 99 Carbon Dioxide 23.9 Anion Gap 9.6 BUN 18 Creatinine 0.49 L Est GFR (CKD-EPI) > 60.0 Glucose 291 H POC Glucose 222 351 POC Glucose Comment Calcium 7.4 L B-Natriuretic Peptide Blood Type Antibody Screen Assessment / Plan Assessment and plan (1) Intertrochanteric fracture of right hip: Code(s): S72.141A - Displaced intertrochanteric fracture of right femur, initial encounter for closed fracture Plan POD #1 S/P left TFN for intertrochanteric hip fracture -WBAT -Antibiotic prophylaxis for 23 hours -DVT prophylaxis per primary -Pain control per primary -PT/OT -Maintain postoperative dressing, change as needed -Ice to the operative site as needed -ABLA, Hgb 8.6, monitor vitals transfuse per primary -Calcium/vitamin D supplementation -Protein supplementation, shakes with every meal -Stable for discharge from orthopedic standpoint -Plan for follow-up in office as scheduled, call office with any questions or concerns We will plan for follow-up x-rays and wound check in approximately 3 weeks. Maintain all hospital precautions until follow-up. Will need to consider DEXA scan at follow-up visit. Continue baseline calcium and vitamin D supplementation along with protein supplementation with every meal. Dr. Roger Robbins [facility] [address] [facility] [place], [place] [address] Documented By: Roger Robbins DO 07/03/24 0734 Signed By: <Electronically signed by Roger Robbins DO> 07/03/24 0821 [facility] Work Phone: [phone]) 906-615205-05-[address] [address] Orthopedic Progress Note Signed Patient: Teresa Lyle MR#: [id number] : 1960 Acct:[id number] Age/Sex: 64 / F Adm Date: 5 Loc: 4N Room: [address] [place] [address] Type: ADM IN Attending Dr: Digna Roberto MD Copies to: ~ Date of Service: 07/03/2024 Subjective Subjective Interval History: Patient doing well today. No complaints. Pain well-controlled Exam Physical Exam Vital Signs: Temp Pulse Resp BP Pulse Ox O2 Del Method O2 Flow Rate 98.7 F 100 16 132/68 96 Room Air 8 07/03/24 04:35 07/03/24 04:35 07/03/24 04:35 07/03/24 04:35 07/03/24 04:35 07/03/24 04:35 07/02/24 09:20 Narrative: Patient seen evaluated on regular nursing floor. She is resting in supine position. She is alert and pleasant conversation. No acute distress. Right hip evaluated. Surgical dressings benign. Thigh is soft compressible. Motions tolerable. Ableto move the foot and ankle today without difficulty. No abnormal calf tenderness Objective Labs Labs: Laboratory Results - last 24 hr 07/01/24 07/02/24 07/02/24 05:50 06:57 07:54 Corrected WBC Uncorrected WBC Count RBC Hgb Hct MCV MCH MCHC RDW Plt Count MPV Neut % (Auto) Lymph % (Auto) Richardson % (Auto) Eos % (Auto) Baso % (Auto) Nucleat RBC Rel Count Neut # (Auto) Lymph # (Auto) Richardson # (Auto) Eos # (Auto) Baso # (Auto) PT 14.0 H INR 1.2 PHA Creatinine Clear Sodium Potassium Chloride Carbon Dioxide Anion Gap BUN Creatinine Est GFR (CKD-EPI) Glucose POC Glucose 249 POC Glucose Comment Glu2: cleaned meter Calcium B-Natriuretic Peptide 50.0 Blood Type A Positive Antibody Screen Negative 07/02/24 07/02/24 07/02/24 09:28 10:37 11:52 Corrected WBC Uncorrected WBC Count RBC Hgb Hct MCV MCH MCHC RDW Plt Count MPV Neut % (Auto) Lymph % (Auto) Richardson % (Auto) Eos % (Auto) Baso % (Auto) Nucleat RBC Rel Count Neut # (Auto) Lymph # (Auto) Richardson # (Auto) Eos # (Auto) Baso # (Auto) PT INR PHA Creatinine Clear Sodium Potassium Chloride Carbon Dioxide Anion Gap BUN Creatinine Est GFR (CKD-EPI) Glucose POC Glucose 208 266 267 POC Glucose Comment Calcium B-Natriuretic Peptide Blood Type Antibody Screen 07/02/24 07/02/24 07/03/24 16:37 21:06 05:42 Corrected WBC 5.8 Uncorrected WBC Count 5.8 RBC 3.59 L Hgb 8.6 L Hct 26.9 L MCV 74.9 L MCH 24.1 L MCHC 32.2 RDW 21.7 H Plt Count 106 L MPV 9.1 Neut % (Auto) 72.8 Lymph % (Auto) 10.5 Richardson % (Auto) 15.7 Eos % (Auto) 0.4 Baso % (Auto) 0.6 Nucleat RBC Rel Count 0.1 Neut # (Auto) 4.2 Lymph # (Auto) 0.6 L Richardson # (Auto) 0.9 H Eos # (Auto) 0.0 Baso # (Auto) 0.0 PT INR PHA Creatinine Clear 94.15 Sodium 128 L Potassium 4.5 Chloride 99 Carbon Dioxide 23.9 Anion Gap 9.6 BUN 18 Creatinine 0.49 L Est GFR (CKD-EPI) > 60.0 Glucose 291 H POC Glucose 222 351 POC Glucose Comment Calcium 7.4 L B-Natriuretic Peptide Blood Type Antibody Screen Assessment / Plan Assessment and plan (1) Intertrochanteric fracture of right hip: Code(s): S72.141A - Displaced intertrochanteric fracture of right femur, initial encounter for closed fracture Plan POD #1 S/P left TFN for intertrochanteric hip fracture -WBAT -Antibiotic prophylaxis for 23 hours -DVT prophylaxis per primary -Pain control per primary -PT/OT -Maintain postoperative dressing, change as needed -Ice to the operative site as needed -ABLA, Hgb 8.6, monitor vitals transfuse per primary -Calcium/vitamin D supplementation -Protein supplementation, shakes with every meal -Stable for discharge from orthopedic standpoint -Plan for follow-up in office as scheduled, call office with any questions or concerns We will plan for follow-up x-rays and wound check in approximately 3 weeks. Maintain all hospital precautions until follow-up. Will need to consider DEXA scan at follow-up visit. Continue baseline calcium and vitamin D supplementation along with protein supplementation with every meal. Dr. [facility] [address] [place] [address] Documented By: Roger Robbins DO 07/03/24 0734 Signed By: 07/03/24 0821 [facility]05-04-2025 Progress note Author Yahaira Turner [facility] Note Date/Time July 02, 2024 1:39pm [facility] [address] [place] [address] Hospitalist Progress Note Signed Patient: Teresa Lyle MR#: [id number] : 1960 Acct:[id number] Age/Sex: 64 / F Adm Date: 5 Loc: 4N Room: 2C1861-2 Type: ADM IN Attending Dr: Digna Roberto MD Copies to: ~ Date of Service: 07/01/2024 Subjective Subjective Narrative: Seen and examined at bedside, sleepy, comfortably and reporting minimal pain, onroom air with SpO2 above 90%. No fever or chills noted vital signs with blood pressure well-controlled. Discussed plan of care with her, agreeable. Exam Physical Exam Vital Signs: Temp Pulse Resp BP Pulse Ox O2 Del Method 98.2 F 87 16 123/69 100 Room Air 07/01/24 08:00 07/01/24 08:00 07/01/24 08:00 07/01/24 08:00 07/01/24 08:00 07/01/24 08:00 Narrative: CONST-sleepy, easily arousable, cooperative CARDIAC?normal rate, regular rhythm, normal S1 & S2. PULM?diminished without wheeze or rhonchi, RA, no accessory muscle use or cough noted ABD ? Soft. Bowel sounds are normal. No distention No tenderness EXTREM?right lower extremity tenderness SKIN? W/D good turgor Objective Lab Results 07/01/24 05:50 07/01/24 05:50 Meds Allergies and Active Meds Allergies No Known Allergies Allergy (Verified 06/30/24 19:20) Active Meds: Active Medications Generic Name Dose Route Start Last Admin Trade Name Freq PRN Reason Stop Dose Admin Acetaminophen 650 mg 06/30/24 22:32 06/30/24 23:33 Acetaminophen 325 Mg Tablet PO 06/30/25 21:59 650 mg Q6HR PRN Administration Pain Scale 1 - 3 or fever Atorvastatin Calcium 10 mg 07/01/24 09:00 Atorvastatin 10 Mg Tablet PO 07/01/25 08:59 DAILY HARI Dextrose 0 gm 06/30/24 22:05 Dextrose 50% In Water 25 Gm/50 Ml Syringe IV-PUSH 06/30/25 22:04 PRN PRN Hypoglycemia Furosemide 20 mg 07/01/24 09:00 Furosemide 20 Mg Tablet PO 07/01/25 08:59 DAILY HARI Glucose 0 gm 06/30/24 22:05 Dextrose 40% Gel 15 Gm Tube PO 06/30/25 22:04 PRN PRN Hypoglycemia Hydromorphone HCl 0.5 mg 06/30/24 22:00 07/01/24 05:50 Hydromorphone 0.5 Mg/0.5 Ml Syringe IV-PUSH 0.5 mg Q4H PRN Administration Pain Scale 8 - 10 Lactated Ringer's 1,000 mls @ 50 mls/hr 07/01/24 00:05 06/30/24 23:34 Lactated Ringers IV 07/01/25 00:04 50 mls/hr .Q20H HARI Administration Lactated Ringer's 1,000 mls @ 20 mls/hr 07/01/24 07:00 07/01/24 09:04 Lactated Ringers IV 07/02/24 06:59 Not Given .Q24H ONE Ferric Sodium Gluconate 110 mls @ 110 mls/hr 07/02/24 09:00 Complex 125 mg/ Sodium IV 07/05/24 09:01 Chloride QAM [facility] Insulin Aspart 0 units 07/01/24 08:00 07/01/24 09:04 Insulin Aspart 300 Units/3 Ml SUBCUT 07/01/25 07:59 8 units TID.WM.HS [facility] Administration Protocol Insulin Glargine 24 units 07/01/24 09:00 Insulin Glargine 300 Units/3 Ml Insuln.Pen SUBCUT 07/01/25 08:59 DAILY HARI Lactulose 10 gm 06/30/24 22:00 Lactulose 20 Gm/30 Ml Udc PO 06/30/25 21:59 DAILY PRN Constipation Lidocaine HCl 0.1 ml 06/30/24 23:04 Lidocaine 1% 50 Ml Vial INTRADERMA PREOP PRN Venipuncture x 1 Dose Magnesium Oxide 400 mg 07/01/24 09:00 Magnesium Oxide 400 Mg Tablet PO 07/01/25 08:59 DAILY [facility] Non-Formulary Medication 0 unit 07/01/24 08:30 Insulin Aspart (Niacinamide) [Fiasp Flextouch U-100 Insulin] SUBCUT 07/02/2607:29 USEASDIRECTD [facility] Ursodiol 250 Mg 250 mg 07/01/24 09:00 Tablet PO 07/01/25 08:59 BID [facility] Ondansetron HCl 4 mg 06/30/24 22:00 Ondansetron 4 Mg/2 Ml Vial IV-PUSH 06/30/25 21:59 Q6H PRN Nausea And Vomiting Oxycodone HCl 5 mg 06/30/24 22:00 06/30/24 23:33 Oxycodone Ir 5 Mg Tablet PO 5 mg Q6HR PRN Administration Pain Scale 4 - 7 Pantoprazole Sodium 40 mg 07/01/24 09:00 Pantoprazole 40 Mg Tablet. PO 07/01/25 08:59 DAILY [facility] Polyethylene Glycol 17 gm 07/01/24 09:00 Polyethylene Glycol 3350 17 Gm Powd.Pack PO 07/01/25 08:59 TID [facility] Sennosides 8.6 mg 07/01/24 09:00 Sennosides 8.6 Mg Tablet PO 07/01/25 08:59 BID HARI Sodium Chloride 0 ml 06/30/24 19:23 06/30/24 20:28 Sodium Chloride 0.9 % 10 Ml Syringe IV-PUSH 06/30/25 19:22 10 ml PRN PRN Administration Flush Sodium Chloride 0 ml 07/01/24 07:00 Sodium Chloride 0.9 % 10 Ml Syringe IV-PUSH 07/01/25 06:59 PRN PRN Flush Spironolactone 50 mg 07/01/24 09:00 Spironolactone 50 Mg Tablet PO 07/01/25 08:59 DAILY HARI A&P - Hospitalist Assessment/Plan (1) Closed right hip fracture: (2) Diabetes: (3) Hyperglycemia: (4) Thrombocytopenia: (5) Primary biliary cholangitis: (6) Tobacco dependence: Plan *CLOSED RIGHT INTERTROCHANTERIC FRACTURE *MICROCYTIC ANEMIA * Orthopedics consulted, plan for fixation of her right hip was deferred today due to hyperglycemia and hemoglobin of 9.5.. N.p.o. after midnight in anticipation of surgery tomorrow * Hemoglobin 9.5, drop 11.0 on admission, 1 unit PRBCs ordered by orthopedics * Anemia panel with low iron and low iron saturation,Start IV Ferrlecit 125 mg x 4 doses * Continue pain management with Acetaminophen, Oxy IR, hydromorphone as needed * Continue Zofran as needed * PT/OT to eval and treat postop * Continue to monitor CBC Hypomagnesemia?replenish T1DM with hyperglycemia, uncontrolled * Fingersticks ACHS,Lantus 24 units daily, 4 units with meals SSIC, A1c, 9.4 Vitamin D i pending * Pseudohyponatremia- corrected sodium 136 for hyperglycemia Tobacco dependence?tobacco cessation, nicotine patch Chronic conditions 1.PBC/Thrombocytopenia likely due to liver disease- no signs of bleeding, current level 65,000-on furosemide, spironolactone 2.HLD?atorvastatin, ursodiol DVT PPx?SCDs Diet order?1800 ADA, n.p.o. midnight CODE STATUS?full code Documented By: Yahaira Turner APRN 07/01/24 1015 Signed By: <Electronically signed by ALLY Turner> 07/01/24 1140 <Electronically signed by Digna Roberto MD> 07/02/24 1339 [facility] Work Phone: 1(895) 789-687805-04-2025 [place] [address] Hospitalist Progress Note Signed Patient: Teresa Lyle MR#: [id number] : 1960 Acct:[id number] Age/Sex: 64 / F Adm Date: 5 Loc: 4N Room: [address] [place] [address] Type: ADM IN Attending Dr: Digna Roberto MD Copies to: ~ Date of Service: 07/01/2024 Subjective Subjective Narrative: Seen and examined at bedside, sleepy, comfortably and reporting minimal pain, onroom air with SpO2 above 90%. No fever or chills noted vital signs with blood pressure well-controlled. Discussed plan of care with her, agreeable. Exam Physical Exam Vital Signs: Temp Pulse Resp BP Pulse Ox O2 Del Method 98.2 F 87 16 123/69 100 Room Air 07/01/24 08:00 07/01/24 08:00 07/01/24 08:00 07/01/24 08:00 07/01/24 08:00 07/01/24 08:00 Narrative: CONST-sleepy, easily arousable, cooperative CARDIAC?normal rate, regular rhythm, normal S1 & S2. PULM?diminished without wheeze or rhonchi, RA, no accessory muscle use or cough noted ABD ? Soft. Bowel sounds are normal. No distention No tenderness EXTREM?right lower extremity tenderness SKIN? W/D good turgor Objective Lab Results 07/01/24 05:50 07/01/24 05:50 Meds Allergies and Active Meds Allergies No Known Allergies Allergy (Verified 06/30/24 19:20) Active Meds: Active Medications Generic Name Dose Route Start Last Admin Trade Name Freq PRN Reason Stop Dose Admin Acetaminophen 650 mg 06/30/24 22:32 06/30/24 23:33 Acetaminophen 325 Mg Tablet PO 06/30/25 21:59 650 mg Q6HR PRN Administration Pain Scale 1 - 3 or fever Atorvastatin Calcium 10 mg 07/01/24 09:00 Atorvastatin 10 Mg Tablet PO 07/01/25 08:59 DAILY HARI Dextrose 0 gm 06/30/24 22:05 Dextrose 50% In Water 25 Gm/50 Ml Syringe IV-PUSH 06/30/25 22:04 PRN PRN Hypoglycemia Furosemide 20 mg 07/01/24 09:00 Furosemide 20 Mg Tablet PO 07/01/25 08:59 DAILY [facility] Glucose 0 gm 06/30/24 22:05 Dextrose 40% Gel 15 Gm Tube PO 06/30/25 22:04 PRN PRN Hypoglycemia Hydromorphone HCl 0.5 mg 06/30/24 22:00 07/01/24 05:50 Hydromorphone 0.5 Mg/0.5 Ml Syringe IV-PUSH 0.5 mg Q4H PRN Administration Pain Scale 8 - 10 Lactated Ringer's 1,000 mls @ 50 mls/hr 07/01/24 00:05 06/30/24 23:34 Lactated Ringers IV 07/01/25 00:04 50 mls/hr .Q20H HARI Administration Lactated Ringer's 1,000 mls @ 20 mls/hr 07/01/24 07:00 07/01/24 09:04 Lactated Ringers IV 07/02/24 06:59 Not Given .Q24H ONE Ferric Sodium Gluconate 110 mls @ 110 mls/hr 07/02/24 09:00 Complex 125 mg/ Sodium IV 07/05/24 09:01 Chloride QAM [facility] Insulin Aspart 0 units 07/01/24 08:00 07/01/24 09:04 Insulin Aspart 300 Units/3 Ml SUBCUT 07/01/25 07:59 8 units TID.WM.HS [facility] Administration Protocol Insulin Glargine 24 units 07/01/24 09:00 Insulin Glargine 300 Units/3 Ml Insuln.Pen SUBCUT 07/01/25 08:59 DAILY HARI Lactulose 10 gm 06/30/24 22:00 Lactulose 20 Gm/30 Ml Udc PO 06/30/25 21:59 DAILY PRN Constipation Lidocaine HCl 0.1 ml 06/30/24 23:04 Lidocaine 1% 50 Ml Vial INTRADERMA PREOP PRN Venipuncture x 1 Dose Magnesium Oxide 400 mg 07/01/24 09:00 Magnesium Oxide 400 Mg Tablet PO 07/01/25 08:59 DAILY [facility] Non-Formulary Medication 0 unit 07/01/24 08:30 Insulin Aspart (Niacinamide) [Fiasp Flextouch U-100 Insulin] SUBCUT 07/02/2607:29 USEASDIRECTD [facility] Ursodiol 250 Mg 250 mg 07/01/24 09:00 Tablet PO 07/01/25 08:59 BID [facility] Ondansetron HCl 4 mg 06/30/24 22:00 Ondansetron 4 Mg/2 Ml Vial IV-PUSH 06/30/25 21:59 Q6H PRN Nausea And Vomiting Oxycodone HCl 5 mg 06/30/24 22:00 06/30/24 23:33 Oxycodone Ir 5 Mg Tablet PO 5 mg Q6HR PRN Administration Pain Scale 4 - 7 Pantoprazole Sodium 40 mg 07/01/24 09:00 Pantoprazole 40 Mg Tablet. PO 07/01/25 08:59 DAILY HARI Polyethylene Glycol 17 gm 07/01/24 09:00 Polyethylene Glycol 3350 17 Gm Powd.Pack PO 07/01/25 08:59 TID [facility] Sennosides 8.6 mg 07/01/24 09:00 Sennosides 8.6 Mg Tablet PO 07/01/25 08:59 BID [facility] Sodium Chloride 0 ml 06/30/24 19:23 06/30/24 20:28 Sodium Chloride 0.9 % 10 Ml Syringe IV-PUSH 06/30/25 19:22 10 ml PRN PRN Administration Flush Sodium Chloride 0 ml 07/01/24 07:00 Sodium Chloride 0.9 % 10 Ml Syringe IV-PUSH 07/01/25 06:59 PRN PRN Flush Spironolactone 50 mg 07/01/24 09:00 Spironolactone 50 Mg Tablet PO 07/01/25 08:59 DAILY [facility] A&P - Hospitalist Assessment/Plan (1) Closed right hip fracture: (2) Diabetes: (3) Hyperglycemia: (4) Thrombocytopenia: (5) Primary biliary cholangitis: (6) Tobacco dependence: Plan *CLOSED RIGHT INTERTROCHANTERIC FRACTURE *MICROCYTIC ANEMIA * Orthopedics consulted, plan for fixation of her right hip was deferred today due to hyperglycemiaand hemoglobin of 9.5.. N.p.o. after midnight in anticipation of surgery tomorrow * Hemoglobin 9.5, drop 11.0 on admission, 1 unit PRBCs ordered by orthopedics * Anemia panel with low iron and low iron saturation,Start IV Ferrlecit 125 mg x 4 doses * Continue pain management with Acetaminophen, Oxy IR, hydromorphone as needed * Continue Zofran as needed * PT/OT to eval and treat postop * Continue to monitor CBC Hypomagnesemia?replenish T1DM with hyperglycemia, uncontrolled * Fingersticks ACHS,Lantus 24 units daily, 4 units with meals SSIC, A1c, 9.4 Vitamin D i pending * Pseudohyponatremia- corrected sodium 136 for hyperglycemia Tobacco dependence?tobacco cessation, nicotine patch Chronic conditions 1.PBC/Thrombocytopenia likely due to liver disease- no signs of bleeding, current level 65,000-on furosemide, spironolactone 2.HLD?atorvastatin, ursodiol DVT PPx?SCDs Diet order?1800 ADA, n.p.o. midnight CODE STATUS?full code Documented By: Yahaira Turner APRN 07/01/24 1015 Signed By: 07/01/24 1140 07/02/24 1339 [facility]05-03-2025 Consult note Author Roger Robbins [facility] Note Date/Time July 01, 2024 11:33a m [facility] [address] [place] [address] Orthopedic Consult Note Signed Patient: Teresa Lyle MR#: [id number] : 1960 Acct:[id number] Age/Sex: 64 / F Adm Date: 5 Loc: Room: [address] [place] [address] Type: ADM IN Attending Dr: Digna Roberto MD Copies to: DO Digna Rizo CNP, MD~ History of Present Illness HPI Consult date: 07/01/2024 Requesting provider: Digna Roberto MD Consult reason: fracture History of present illness: 64-year-old female with significant Past medical history presenting with a rightintertrochanteric hip fracture. Patient had ground-level fall which resulted inright hip pain and inability to ambulate. Brought to emergency department wherex-rays were done of the pelvis and right femur showing a right intertrochanterichip fracture. Other imaging workup was found to be negative. She has poorly controlled diabetes with initial glucose readings in the 600s. She has chronic liver disease as well as pack-a-day smoker. She has chronic anemia. She does admit to right hip pain. Pain medications help. Denies numbness or tingling ofthe right lower extremity [facility] Medical History Esophageal varices with band ligation BMI 22.0-22.9, adult Dietary counseling and surveillance Hyperlipidemia Lower GI bleed Diabetes type 2 Dietary counseling and surveillance Type 1 diabetes mellitus with hyperglycemia Vitamin D deficiency HTN (hypertension) GERD (gastroesophageal reflux disease) Asthma Arthritis Umbilical hernia PVD (peripheral vascular disease) COPD (chronic obstructive pulmonary disease) Rheumatoid arthritis Diabetes Surgical History History of hernia repair S/P TIPS (transjugular intrahepatic portosystemic shunt) History of cholecystectomy History of esophagogastroduodenoscopy (EGD) Family History Mother Diabetes Heart disease Father Diabetes Sister Diabetes Sister Diabetes Brother Cancer Legacy FamHx Relation: Brother(s); Legacy FamHx Problem: Diagnosed with Cancer Family history of mental disorder Legacy FamHx Relation: Brother(s); Legacy FamHx Problem: Diagnosed with Mental Illness Diabetes Legacy FamHx Relation: Brother(s) Father Dementia Diabetes Family/Other Legacy FamHx Problem: DENIES FAMILY HX OF COLON CANCER:1 daughter insulin resistant:1 sister cancer liver:1 brother blood cancer:1 brother cirrhois Grandparent Legacy FamHx Relation: Maternal Grand Father Grandparent Legacy FamHx Relation: Maternal Grand Mother Grandparent Diabetes Legacy FamHx Relation: Paternal Grand Father Legacy FamHx Relation: Paternal Grand Father Grandparent Legacy FamHx Relation: Paternal Grand Mother Diabetes Legacy FamHx Relation: Paternal Grand Mother Mother Diabetes Heart disease 63 yrs Mother Diabetes Sister Cancer Legacy FamHx Problem: Diagnosed with Cancer Diabetes Social History Smoking Status: Current every day smoker Tobacco Type: cigarettes Substance Use Type: None Social History Comments: muscle and tissue damage lives in a duplex Allergies & Medications Medications and Allergies Allergies No Known Allergies Allergy (Verified 06/30/24 19:20) Home Medications gabapentin 300 mg capsule 300 mg PO TID #0 caps 05/24/23 [Rx Confirmed 06/30/24] atorvastatin 10 mg tablet 10 mg PO DAILY 90 days #90 tabs 06/04/23 [Rx Confirmed 06/30/24] pantoprazole 40 mg tablet,delayed release 40 mg PO DAILY 06/15/23 [History Confirmed 06/30/24] polyethylene glycol 3350 17 gram/dose oral powder (Miralax) 17 g PO TID 06/15/23[History Confirmed 06/30/24] ursodiol 250 mg tablet 250 mg PO BID 06/15/23 [History Confirmed 06/30/24] insulin aspart (niacinamide)(U-100) 100 unit/mL(3 mL) subcutaneous pen (Fiasp FlexTouch U-100 Insulin) See Rx Instructions subcut USEASDIRECTD 90 days #15 mL 07/21/23 [Rx Confirmed 06/30/24] insulin degludec 100 unit/mL (3 mL) subcutaneous pen (Tresiba FlexTouch U-100 insulin) See Rx Instructions subcut DAILY 07/21/23 [History Confirmed 06/30/24] spironolactone 50 mg tablet 50 mg PO DAILY 07/21/23 [History Confirmed 06/30/24] blood sugar diagnostic (OneTouch Ultra Test strips) #400 ea 10/05/23 [Rx Confirmed 06/30/24] furosemide 20 mg tablet (Lasix) 20 mg PO DAILY 11/30/23 [History Confirmed 06/30/24] magnesium oxide 400 mg PO DAILY #90 tabs 11/30/23 [Rx Confirmed 06/30/24] Exam Physical Exam Vital Signs: Temp Pulse Resp BP Pulse Ox O2 Del Method 98.2 F 90 18 136/67 98 Room Air 07/01/24 04:10 07/01/24 04:10 07/01/24 04:10 07/01/24 04:10 07/01/24 04:10 07/01/24 04:10 Narrative: Patient seen evaluated on regular nursing floor. She is resting in supine position. She is alert and pleasant conversation. No acute distress. Right hip is evaluated. Her leg is shortened and externally rotated. Her thighis soft compressible. Pain with any motion of the hip. No tenderness of the knee. Able move the ankle up and down without difficulty and wiggle toes. Footis warm and well-perfused with normal sensation. Results - Orthopedics Lab Results 07/01/24 05:50 07/01/24 05:50 Labs: Laboratory Results - Last 48 hrs. 07/01/24 05:50: Corrected WBC 5.9, Uncorrected WBC Count 5.9, RBC 3.99, Hgb 9.5 L, Hct 29.5 L, MCV 73.9 L, MCH 23.7 L, MCHC 32.1, RDW 21.8 H, Plt Count 58 L, MPV 8.8, Neut % (Auto) 71.7, Lymph % (Auto) 13.6, Richardson % (Auto) 12.8, Eos % (Auto) 1.1, Baso % (Auto) 0.8, Nucleat RBC Rel Count 0.1, Neut # (Auto) 4.2, Lymph # (Auto) 0.8 L, Richardson # (Auto) 0.8, Eos # (Auto) 0.1, Baso # (Auto) 0.0 07/01/24 00:26: POC Glucose 430 H*, POC Glucose Comment 06/30/24 22:41: POC Glucose Comment Cleaned meter 06/30/24 22:41: POC Glucose 408 H*, POC Glucose Comment 06/30/24 20:50: Urine Color Light-yellow, Urine Appearance Clear, Urine pH 6.5, Ur Specific [place] 1.027, Urine Protein Negative, Urine Glucose (UA) >=1000 H, Urine Ketones Negative, Urine Occult Blood Negative, Urine Nitrite Negative, Urine Bilirubin Negative, Urine Urobilinogen Normal, Ur Leukocyte Esterase Negative 06/30/24 20:36: Corrected WBC 5.2, Uncorrected WBC Count 5.2, RBC 4.68, Hgb 11.0L, Hct 35.1, MCV 75.1 L, MCH 23.4 L, MCHC 31.2 L, RDW 22.6 H, Plt Count 65 L, MPV 8.8, Neut % (Auto) 74.5, Lymph % (Auto) 13.2, Richardson % (Auto) 10.2, Eos % (Auto) 1.0, Baso % (Auto) 1.1, Nucleat RBC Rel Count 0.0, Neut # (Auto) 3.9, Lymph # (Auto) 0.7 L, Richardson # (Auto) 0.5, Eos # (Auto) 0.1, Baso # (Auto) 0.1, Monocyte Dist Width 20.23 H, PHA Creatinine Clear 85.81, Sodium 128 L, Potassium4.5, Chloride 98, Carbon Dioxide 23.2, Anion Gap 11.3, BUN 10, Creatinine 0.59 L, Est GFR (CKD-EPI) > 60.0, Glucose 605 H*, Calcium 8.0 L, Total Bilirubin 1.2 H, Direct Bilirubin 0.50 H, Indirect Bilirubin 0.7, AST 43 H, ALT 34, Alkaline Phosphatase 201 H, Total Protein 6.5, Albumin 2.4 L, Globulin 4.1, Albumin/Globulin Ratio 0.6, Lipase 58.0 H & H 06/30/24 07/01/24 Range/Units 20:36 05:50 Hgb 11.0 L 9.5 L (11.8-15.4) g/dL Hct 35.1 29.5 L (34.0-46.4) % All other labs are normal. Imaging & Diagnostic Results Imaging/Diagnostics: X-rays of the pelvis and right hip are reviewed. They show a comminuted right intertrochanteric fracture with shortening and varus angulation. Large lesser trochanter comminution Assessment/Plan (1) Intertrochanteric fracture of right hip: Code(s): S72.141A - Displaced intertrochanteric fracture of right femur, initial encounter for closed fracture Plan Philly presents with right intertrochanteric hip fracture. At this juncture we have discussed the findings and diagnosis as well as personally reviewed appropriate imaging and performed interpretation of related testing and examination with the patient in office today. Prior medical notes from the ED and hospital service and history have been reviewed. I do recommend surgical intervention for fixation of her right hip. I do not feel that she is medicallyoptimized currently in order to proceed with surgery. She has been hyperglycemicsince admission. She also has hypoalbuminemia. Anemia with hemoglobin 9.5. Platelets of 65K. Today we will plan to obtain and transfuse 2 units of platelets in preparation for surgical intervention tomorrow. We will need to repeat a CBC after those platelets are transfused. If her hemoglobin drops I would recommend 1U PRBC be transfused as well. Will need an extra unit of platelets on hold for surgery. Optimize glucose control. N.p.o. after midnightfor surgical intervention tomorrow Teresa presents with right intertrochanteric hip fracture. At this juncture we have discussed the findings and diagnosis as well as reviewed appropriate imaging and performed interpretation of testing. Surgical intervention is recommended. Prior medical notes and history have been reviewed. Surgical versusnon-operative management have been discussed in detail and non-operative management was given as an option. The risks of surgical intervention were given. Pre-operative optimization will be done prior to surgical procedure to limit cheryl-operative risks. I have discussed the planned procedure, how and who performs the procedure, and the personnel involved. Cardiovascular, pulmonary, and other life threatening episodes can occur during surgery although there is alow risk of these happening. Surgical risks including bleeding, neurovascular injury, wound closure problems, clotting disorders including pulmoary embolism and infection were discussed. Cheryl-operative risks including infection, bleeding, wound healing problems, and need for further surgery were discussed. It was discussed that there is a possibility of blood transfusion with any surgical procedure and the risks involved in receiving a blood transfusion. Possibility of, and need for, future bracing or DME use, physical or occupational therapy, mental therapy, rehabilitation, pain management and need for secondary procedures was discussed. I have warned against smoking and the use of tobacco products due to the risks associated with them, in particular, poor healing. I have advised against the detention use of narcotic pain medication. I have advised to follow all post-operative instructions in order toobtain the best outcome. Informed consent has been verbally affirmed and signed as indicated. Plan for right hip long TFN The patient has been involved in our cooperative treatment plan and agrees to move forward with treatment at this time. Documented By: Roger Robbins DO 07/01/24 0704 Signed By: <Electronically signed by Roger Robbins DO> 07/01/24 8326 [facility] Work Phone: [phone] [address] Orthopedic Consult Note Signed Patient: Teresa Lyle MR#: [id number] : 1960 Acct:[id number] Age/Sex: 64 / F Adm Date: 5 Loc: 4N Room: 3D3133-1 Type: ADM IN Attending Dr: Digna Roberto MD Copies to: DO Digna Rizo CNP, MD~ History of Present Illness HPI Consult date: 07/01/2024 Requesting provider: Digna Roberto MD Consult reason: fracture History of present illness: 64-year-old female with significant Past medical history presenting with a rightintertrochanteric hip fracture. Patient had ground-level fall which resulted inright hip pain and inability to ambulate. Brought to emergency department wherex-rays were done of the pelvis and right femur showing a right intertrochanterichip fracture. Other imaging workup was found to be negative. She has poorly controlled diabetes with initial glucose readings in the 600s. She has chronic liver disease as well as pack-a-day smoker. She has chronic anemia. She does admit to right hip pain. Pain medications help. Denies numbness or tingling ofthe right lower extremity [facility] Medical History Esophageal varices with band ligation BMI 22.0-22.9, adult Dietary counseling and surveillance Hyperlipidemia Lower GI bleed Diabetes type 2 Dietary counseling and surveillance Type 1 diabetes mellitus with hyperglycemia Vitamin D deficiency HTN (hypertension) GERD (gastroesophageal reflux disease) Asthma Arthritis Umbilical hernia PVD (peripheral vascular disease) COPD (chronic obstructive pulmonary disease) Rheumatoid arthritis Diabetes Surgical History History of hernia repair S/P TIPS (transjugular intrahepatic portosystemic shunt) History of cholecystectomy History of esophagogastroduodenoscopy (EGD) Family History Mother Diabetes Heart disease Father Diabetes Sister Diabetes Sister Diabetes Brother Cancer Legacy FamHx Relation: Brother(s); Legacy FamHx Problem: Diagnosed with Cancer Family history of mental disorder Legacy FamHx Relation: Brother(s); Legacy FamHx Problem: Diagnosed with Mental Illness Diabetes Legacy FamHx Relation: Brother(s) Father Dementia Diabetes Family/Other Legacy FamHx Problem: DENIES FAMILY HX OF COLON CANCER:1 daughter insulin resistant:1 sister cancer liver:1 brother blood cancer:1 brother cirrhois Grandparent Legacy FamHx Relation: Maternal Grand Father Grandparent Legacy FamHx Relation: Maternal Grand Mother Grandparent Diabetes Legacy FamHx Relation: Paternal Grand Father Legacy FamHx Relation: Paternal Grand Father Grandparent Legacy FamHx Relation: Paternal Grand Mother Diabetes Legacy FamHx Relation: Paternal Grand Mother Mother Diabetes Heart disease 63 yrs Mother Diabetes Sister Cancer Legacy FamHx Problem: Diagnosed with Cancer Diabetes Social History Smoking Status: Current every day smoker Tobacco Type: cigarettes Substance Use Type: None Social History Comments: muscle and tissue damage lives in a duplex Allergies & Medications Medications and Allergies Allergies No Known Allergies Allergy (Verified 06/30/24 19:20) Home Medications gabapentin 300 mg capsule 300 mg PO TID #0 caps 05/24/23 [Rx Confirmed 06/30/24] atorvastatin 10 mg tablet 10 mg PO DAILY 90 days #90 tabs 06/04/23 [Rx Confirmed 06/30/24] pantoprazole 40 mg tablet,delayed release 40 mg PO DAILY 06/15/23 [History Confirmed 06/30/24] polyethylene glycol 3350 17 gram/dose oral powder (Miralax) 17 g PO TID 06/15/23[History Confirmed 06/30/24] ursodiol 250 mg tablet 250 mg PO BID 06/15/23 [History Confirmed 06/30/24] insulin aspart (niacinamide)(U-100) 100 unit/mL(3 mL) subcutaneous pen (Fiasp FlexTouch U-100 Insulin) See Rx Instructions subcut USEASDIRECTD 90 days #15 mL 07/21/23 [Rx Confirmed 06/30/24] insulin degludec 100 unit/mL (3 mL) subcutaneous pen (Tresiba FlexTouch U-100 insulin) See Rx Instructions subcut DAILY 07/21/23 [History Confirmed 06/30/24] spironolactone 50 mg tablet 50 mg PO DAILY 07/21/23 [History Confirmed 06/30/24] blood sugar diagnostic (Ansibleuch Ultra Test strips) #400 ea 10/05/23 [Rx Confirmed 06/30/24] furosemide 20 mg tablet (Lasix) 20 mg PO DAILY 11/30/23 [History Confirmed 06/30/24] magnesium oxide 400 mg PO DAILY #90 tabs 11/30/23 [Rx Confirmed 06/30/24] Exam Physical Exam Vital Signs: Temp Pulse Resp BP Pulse Ox O2 Del Method 98.2 F 90 18 136/67 98 Room Air 07/01/24 04:10 07/01/24 04:10 07/01/24 04:10 07/01/24 04:10 07/01/24 04:10 07/01/24 04:10 Narrative: Patient seen evaluated on regular nursing floor. She is resting in supine position. She is alert and pleasant conversation. No acute distress. Right hip is evaluated. Her leg is shortened and externally rotated. Her thighis soft compressible.Pain with any motion of the hip. No tenderness of the knee. Able move the ankle up and down withoutdifficulty and wiggle toes. Footis warm and well-perfused with normal sensation. Results - Orthopedics Lab Results 07/01/24 05:50 07/01/24 05:50 Labs: Laboratory Results - Last 48 hrs. 07/01/24 05:50: Corrected WBC 5.9, Uncorrected WBC Count 5.9, RBC 3.99, Hgb 9.5 L, Hct 29.5 L, MCV 73.9 L, MCH 23.7 L, MCHC 32.1, RDW 21.8 H, Plt Count 58 L, MPV 8.8, Neut % (Auto) 71.7, Lymph % (Auto) 13.6, Richardson % (Auto) 12.8, Eos % (Auto) 1.1, Baso % (Auto) 0.8, Nucleat RBC Rel Count 0.1, Neut # (Auto) 4.2, Lymph # (Auto) 0.8 L, Richardson # (Auto) 0.8, Eos # (Auto) 0.1, Baso # (Auto) 0.0 07/01/24 00:26: POC Glucose 430 H*, POC Glucose Comment 06/30/24 22:41: POC Glucose Comment Cleaned meter 06/30/24 22:41: POC Glucose 408 H*, POC Glucose Comment 06/30/24 20:50: Urine Color Light-yellow, Urine Appearance Clear, Urine pH 6.5, Ur Specific Gravity1.027, Urine Protein Negative, Urine Glucose (UA) >=1000 H, Urine Ketones Negative, Urine OccultBlood Negative, Urine Nitrite Negative, Urine Bilirubin Negative, Urine Urobilinogen Normal, Ur Leukocyte Esterase Negative 06/30/24 20:36: Corrected WBC 5.2, Uncorrected WBC Count 5.2, RBC 4.68, Hgb 11.0L, Hct 35.1, MCV 75.1 L, MCH 23.4 L, MCHC 31.2 L, RDW 22.6 H, Plt Count 65 L, MPV 8.8, Neut % (Auto) 74.5, Lymph % (Auto) 13.2, Richardson % (Auto) 10.2, Eos % (Auto) 1.0, Baso % (Auto) 1.1, Nucleat RBC Rel Count 0.0, Neut # (Auto) 3.9, Lymph # (Auto) 0.7 L, Richardson # (Auto) 0.5, Eos # (Auto) 0.1, Baso # (Auto) 0.1, Monocyte Dist Width 20.23 H, PHA Creatinine Clear 85.81, Sodium 128 L, Potassium4.5, Chloride 98, Carbon Dioxide 23.2, Anion Gap 11.3, BUN 10, Creatinine 0.59 L, Est GFR (CKD-EPI) > 60.0, Glucose 605 H*, Calcium 8.0 L, Total Bilirubin 1.2 H, Direct Bilirubin 0.50 H, Indirect Bilirubin 0.7, AST 43 H, ALT 34, Alkaline Phosphatase 201 H, Total Protein 6.5, Albumin 2.4 L, Globulin 4.1, Albumin/Globulin Ratio0.6, Lipase 58.0 H & H 06/30/24 07/01/24 Range/Units 20:36 05:50 Hgb 11.0 L 9.5 L (11.8-15.4) g/dL Hct 35.1 29.5 L (34.0-46.4) % All other labs are normal. Imaging & Diagnostic Results Imaging/Diagnostics: X-rays of the pelvis and right hip are reviewed. They show a comminuted right intertrochanteric fracture with shortening and varus angulation. Large lesser trochanter comminution Assessment/Plan (1) Intertrochanteric fracture of right hip: Code(s): S72.141A - Displaced intertrochanteric fracture of right femur, initial encounter for closed fracture Plan Philly presents with right intertrochanteric hip fracture. At this juncture we have discussed the findings and diagnosis as well as personally reviewed appropriate imaging and performed interpretationof related testing and examination with the patient in office today. Prior medical notes from the ED and hospital service and history have been reviewed. I do recommend surgical intervention for fixation of her right hip. I do not feel that she is medicallyoptimized currently in order to proceed with surgery. She has been hyperglycemicsince admission. She also has hypoalbuminemia. Anemia with hemo globin 9.5. Platelets of 65K. Today we will plan to obtain and transfuse 2 units of platelets in preparation for surgical intervention tomorrow. We will need to repeat a CBC after those platelets aretransfused. If her hemoglobin drops I would recommend 1U PRBC be transfused as well. Will need an extra unit of platelets on hold for surgery. Optimize glucose control. N.p.o. after midnightfor surgical intervention tomorrow Teresa presents with right intertrochanteric hip fracture. At this juncture we have discussed the findings and diagnosis as well as reviewed appropriate imaging and performed interpretation of testing. Surgical intervention is recommended. Prior medical notes and history have been reviewed. Surgical versusnon-operative management have been discussed in detail and non-operative management was given as an option. The risks of surgical intervention were given. Pre-operative optimization will be done prior to surgical procedure to limit cheryl-operative risks. I have discussed the planned procedure, how and who performs the procedure, and the personnel involved. Cardiovascular, pulmonary, and other life threatening episodes can occur during surgery although there is alow risk of these happening. Surgical risks including bleeding, neurovascular injury, wound closure problems, clotting disorders including pulmoary embolism and infection were discussed. Cheryl-operative risks including infection, bleeding, wound healing problems, and need for further surgery were discussed. It was discussed that there is a possibility of blood transfusion with any surgical procedure and the risks involved inreceiving a blood transfusion. Possibility of, and need for, future bracing or DME use, physical oroccupational therapy, mental therapy, rehabilitation, pain management and need for secondary procedures was discussed. I have warned against smoking and the use of tobacco products due to the risks associated with them, in particular, poor healing. I have advised against the superintendent terminal use of narcotic pain medication. I have advised to follow all post-operative instructions in order toobtain the best outcome. Informed consent has been verbally affirmed and signed as indicated. Plan for right hip long TFN The patient has been involved in our cooperative treatment plan and agrees to move forward with treatment at this time. Documented By: Roger Robbins DO 07/01/24 0704 Signed By: 07/01/24 1133 [facility]05-03-2025 History and physical note Author Coco Zamora [facility] Note Date/Time July 01, 2024 12:11a m [facility] [address] [place] [address] Hospitalist H&P Signed Patient: Teresa Lyle MR#: [id number] : 1960 Acct:[id number] Age/Sex: 64 / F Adm Date: 5 Loc: 4N Room: [address] [place] [address] Type: ADM IN Attending Dr: Sarah Helm MD Copies to: MD Coco Finn CNP, RESAW FEEDER~ HPI DATE OF EXAMINATION: 06/30/24 CHIEF COMPLAINT: right leg pain after fall from the stairs HISTORY OF PRESENT ILLNESS: Ms. Lyle is a 64-year-old female with a PMH of cirrhosis of the liver, primary biliary sclerosis, rectal varices, esophageal varices, TIPS procedure, T2DM, COPD, PVD, cataracts?poor vision that presented to the emergency room tonight for right lower extremity pain after falling up the stairs. Patient states that she was cleaning up a dog mess on the stairs and she slipped and fell. She denies any dizziness, does not believe she hit her head but she is not sure, denies loss of consciousness. She reports that she has cataracts and up until April she had blurry vision, daughter at bedside said after said she cannot see much of anything. States that she does have appointmentset up with nephrology. Daughter reports that patient has been lost to some follow-ups due to lack of transportation. She sees a Dr. Cohen in [place] for her liver disease and she is also to see Dr. Chin but has not seen him yet. States that she did not take her insulin today, states sometimes she forgets before she starts eating. She is a pack-a-day smoker, denies alcohol or marijuana use. She denies chest pain, shortness of breath, fever or chills, nausea vomiting. Pelvic x-ray shows a right-sided intertrochanteric hip fracture with 90 degrees angulation, no other acute fracture, no pelvic fracture. CT of the head showed no acute intracranial abnormality. Chest x-ray showed no acute cardiopulmonary findings. CT of the C-spine showed no cervical spine fracture. Right ankle andtib-fib were negative for fracture. EKG is sinus rhythm. She received 10 unitsof regular insulin IV and hydromorphone, 1 L saline bolus. She will be admittedas inpatient to the surgical floor. Review of Systems Review of Systems Review of systems: A 10 point review of systems was obtained, negative unless noted in the HPI or below. [facility] Medical History Esophageal varices with band ligation BMI 22.0-22.9, adult Dietary counseling and surveillance Hyperlipidemia Lower GI bleed Diabetes type 2 Dietary counseling and surveillance Type 1 diabetes mellitus with hyperglycemia Vitamin D deficiency HTN (hypertension) GERD (gastroesophageal reflux disease) Asthma Arthritis Umbilical hernia PVD (peripheral vascular disease) COPD (chronic obstructive pulmonary disease) Rheumatoid arthritis Diabetes Surgical History History of hernia repair S/P TIPS (transjugular intrahepatic portosystemic shunt) History of cholecystectomy History of esophagogastroduodenoscopy (EGD) Family History Mother Diabetes Heart disease Father Diabetes Sister Diabetes Sister Diabetes Brother Cancer Legacy FamHx Relation: Brother(s); Legacy FamHx Problem: Diagnosed with Cancer Family history of mental disorder Legacy FamHx Relation: Brother(s); Legacy FamHx Problem: Diagnosed with Mental Illness Diabetes Legacy FamHx Relation: Brother(s) Father Dementia Diabetes Family/Other Legacy FamHx Problem: DENIES FAMILY HX OF COLON CANCER:1 daughter insulin resistant:1 sister cancer liver:1 brother blood cancer:1 brother cirrhois Grandparent Legacy FamHx Relation: Maternal Grand Father Grandparent Legacy FamHx Relation: Maternal Grand Mother Grandparent Diabetes Legacy FamHx Relation: Paternal Grand Father Legacy FamHx Relation: Paternal Grand Father Grandparent Legacy FamHx Relation: Paternal Grand Mother Diabetes Legacy FamHx Relation: Paternal Grand Mother Mother Diabetes Heart disease 63 yrs Mother Diabetes Sister Cancer Legacy FamHx Problem: Diagnosed with Cancer Diabetes Social History Marital Status: Smoking Status: Current every day smoker Tobacco Type: cigarettes Substance Use Type: None Social History Comments: muscle and tissue damage lives in a duplex Meds Medications and Allergies Allergies No Known Allergies Allergy (Verified 06/30/24 19:20) Home Medications gabapentin 300 mg capsule 300 mg PO TID #0 caps 05/24/23 [Rx Confirmed 06/30/24] atorvastatin 10 mg tablet 10 mg PO DAILY 90 days #90 tabs 06/04/23 [Rx Confirmed 06/30/24] pantoprazole 40 mg tablet,delayed release 40 mg PO DAILY 06/15/23 [History Confirmed 06/30/24] polyethylene glycol 3350 17 gram/dose oral powder (Miralax) 17 g PO TID 06/15/23[History Confirmed 06/30/24] ursodiol 250 mg tablet 250 mg PO BID 06/15/23 [History Confirmed 06/30/24] insulin aspart (niacinamide)(U-100) 100 unit/mL(3 mL) subcutaneous pen (Fiasp FlexTouch U-100 Insulin) See Rx Instructions subcut USEASDIRECTD 90 days #15 mL 07/21/23 [Rx Confirmed 06/30/24] insulin degludec 100 unit/mL (3 mL) subcutaneous pen (Tresiba FlexTouch U-100 insulin) See Rx Instructions subcut DAILY 07/21/23 [History Confirmed 06/30/24] spironolactone 50 mg tablet 50 mg PO DAILY 07/21/23 [History Confirmed 06/30/24] blood sugar diagnostic (Enable HealthcareTouch Ultra Test strips) #400 ea 10/05/23 [Rx Confirmed 06/30/24] furosemide 20 mg tablet (Lasix) 20 mg PO DAILY 11/30/23 [History Confirmed 06/30/24] magnesium oxide 400 mg PO DAILY #90 tabs 11/30/23 [Rx Confirmed 06/30/24] Exam Physical Exam Vital Signs: Temp Pulse Resp BP Pulse Ox O2 Del Method 98.1 F 95 16 155/69 H 99 Room Air 06/30/24 19:20 06/30/24 21:41 06/30/24 21:41 06/30/24 21:41 06/30/24 21:41 06/30/24 21:41 Narrative: CONST- Older than stated age HEAD - Normocephalic and atraumatic EENT-Sclera nonicteric, conjunctive are non-erythemic, dry oral mucosa, pharynx clear, poor vision NECK-Supple, no cervical lymphadenopathy CARDIAC-normal rate, regular rhythm, S1 & S2. PULM-diminished without wheeze or rhonchi, RA, no accessory muscle use or cough noted, clubbing to fingers ABD - Soft. Bowel sounds are normal. No distention. No tenderness EXTREM- scant edema BLE calves, tenderness and pain to RLE SKIN- W/D good turgor MS- MAEX4 spontaneously, RLE shortened, outward rotation, swelling to hip NEURO- A&Ox3 speech clear and tongue midline, equal facial symmetry, no focal motor deficits PSYCH-Mood, affect, and behavior appropriate Results - Hospitalist H&P Lab Results Labs: Laboratory Last Values Corrected WBC 5.2 X10E3/uL (3.8-11.6) 06/30/24 20:36 Uncorrected WBC Count 5.2 x10E3/uL (3.8-11.6) 06/30/24 20:36 RBC 4.68 x10E6/uL (3.60-5.00) 06/30/24 20:36 Hgb 11.0 g/dL (11.8-15.4) L 06/30/24 20:36 Hct 35.1 % (34.0-46.4) 06/30/24 20:36 MCV 75.1 fl (80-100) L 06/30/24 20:36 MCH 23.4 pg (24.7-34.3) L 06/30/24 20:36 MCHC 31.2 g/dL (32.0-35.0) L 06/30/24 20:36 RDW 22.6 % (11.9-15.3) H 06/30/24 20:36 Plt Count 65 x10E3/uL (150-450) L 06/30/24 20:36 MPV 8.8 fl (6.3-10.7) 06/30/24 20:36 Neut % (Auto) 74.5 % (.) 06/30/24 20:36 Lymph % (Auto) 13.2 % (.) 06/30/24 20:36 Richardson % (Auto) 10.2 % (.) 06/30/24 20: Eos % (Auto) 1.0 % (.) 06/30/24: Baso % (Auto) 1.1 % (.) 06/30/24 20: Nucleat RBC Rel Count 0.0 /100 WBC (0-0.5) 06/30/24: Neut # (Auto) 3.9 x10E3/uL (1.8-7.7) 06/30/24 20: Lymph # (Auto) 0.7 x10E3/uL (1.00-4.8) L 06/30/24 20:36 Richardson # (Auto) 0.5 x10E3/uL (0.0-0.8) 06/30/24 20: Eos # (Auto) 0.1 x10E3/uL (0.0-0.45) 06/30/24: Baso # (Auto) 0.1 x10E3/uL (0.0-0.2) 06/30/24: Monocyte Dist Width 20.23 % (0.00-20.00) H 06/30/24 20: PHA Creatinine Clear 85.81 06/30/24 20: Sodium 128 mmol/L (136-145) L 06/30/24 20: Potassium 4.5 mmol/L (3.5-5.1) 06/30/24 20: Chloride 98 mmol/L (98-107) 06/30/24: Carbon Dioxide 23.2 mmol/L (21.0-31.0) 06/30/24: Anion Gap 11.3 mEq/L (6.0-15.0) 06/30/24 20:36 BUN 10 mg/dL (7-25) 06/30/24: Creatinine 0.59 mg/dL (0.60-1.20) L 06/30/24 20:36 Est GFR (CKD-EPI) > 60.0 mL/Min 06/30/24 20:36 Glucose 605 mg/dL (70-100) H* 06/30/24 20:36 Calcium 8.0 mg/dL (8.6-10.3) L 06/30/24 20:36 Total Bilirubin 1.2 mg/dl (0.3-1.0) H 06/30/24 20:36 Direct Bilirubin 0.50 mg/dL (0.03-0.18) H 06/30/24 20:36 Indirect Bilirubin 0.7 mg/dL 06/30/24 20:36 AST 43 U/L (13-39) H 06/30/24 20:36 ALT 34 U/L (7-52) 06/30/24 20:36 Alkaline Phosphatase 201 U/L (34-104) H 06/30/24 20:36 Total Protein 6.5 gm/dL (6.4-8.9) 06/30/24 20:36 Albumin 2.4 gm/dL (3.5-5.7) L 06/30/24 20:36 Globulin 4.1 gm/dL 06/30/24 20:36 Albumin/Globulin Ratio 0.6 06/30/24 20:36 Lipase 58.0 U/L (11.0-82.0) 06/30/24 20:36 Urine Color Light-yellow (Yellow) 06/30/24 20:50 Urine Appearance Clear (Clear) 06/30/24 20:50 Urine pH 6.5 (5.0-9.0) 06/30/24 20:50 Ur Specific [place] 1.027 (1.001-1.030) 06/30/24 20:50 Urine Protein Negative mg/dL (Negative) 06/30/24 20:50 Urine Glucose (UA) >=1000 mg/dL (Normal) H 06/30/24 20:50 Urine Ketones Negative (Negative) 06/30/24 20:50 Urine Occult Blood Negative (Negative) 06/30/24 20:50 Urine Nitrite Negative (Negative) 06/30/24 20:50 Urine Bilirubin Negative (Negative) 06/30/24 20:50 Urine Urobilinogen Normal mg/dL (Normal) 06/30/24 20:50 Ur Leukocyte Esterase Negative (Negative) 06/30/24 20:50 Assessment & Plan Assessment/Plan (1) Closed right hip fracture: (2) Diabetes: (3) Hyperglycemia: (4) Thrombocytopenia: (5) Primary biliary cholangitis: (6) Tobacco dependence: Plan Closed right intertrochanteric fracture - Consult orthopedics - Acetaminophen, Oxy IR, hydromorphone as needed - Zofran as needed - NPO at midnight, LR @ 50cc/hr - CBC, BMP, Mag, PT/INR, PTT in am - PT/OT post op DM with Hyperglycemia- uncontrolled T1DM - Fingersticks ACHS, SSIC, A1c, Vitamin D in am - Pseudohyponatremia- corrected sodium 136 for hyperglycemia Tobacco dependence?tobacco cessation Chronic conditions Thrombocytopenia likely due to liver disease- no signs of bleeding, current level 65,000 PBC HTN HLD COPD DVT PPx?SCDs Diet order?1800 ADA, n.p.o. midnight CODE STATUS?full code Attending Physician Attestation: I personally reviewed the history, performed the carbone elements of the exam, formulated the plan of care and confirmed the written note. I agree with the findings and plan as documented in this note and have edited it if needed to reflect my findings and plan. Sarah Cao MD IP vs OBS Justification Based on differential dx, clinical care plan, and risk of adverse events, if untreated, in my clinical judgement this patient requires an acute care setting as: INPATIENT because of an expectation of an over 2 midnight stay. Estimated length of stay (# of days): 3 Documented By: Coco Zamora APRN 06/30/242206 Signed By: <Electronically signed by ALLY Zamora> 06/30/242256 <Electronically signed by Sarah Helm MD> 07/01/24 0011 [facility] Work Phone: 1(567) 921-695805-03-2025 History and physical [place] [id number] Hospitalist H&P Signed Patient: Teresa Lyle MR#: [id number] : 1960 Acct:[id number] Age/Sex: 64 / F Adm Date: 5 Loc: 4N Room: 6O8600-1 Type: ADM IN Attending Dr: Sarah Helm MD Copies to: MD Coco Finn CNP, RESAW FEEDER~ HPI DATE OF EXAMINATION: 06/30/24 CHIEF COMPLAINT: right leg pain after fall from the stairs HISTORY OF PRESENT ILLNESS: Ms. Lyle is a 64-year-old female with a PMH of cirrhosis of the liver, primary biliary sclerosis, rectal varices, esophageal varices, TIPS procedure, T2DM, COPD, PVD, cataracts?poor vision that presented to the emergency room tonight for right lower extremity pain after falling up the stairs. Patient states that she was cleaning up a dog mess on the stairs and she slipped and fell. She denies any dizziness, does not believe she hit her head but she is not sure, denies loss of consciousness. She reports that she has cataracts and up until April she had blurry vision, daughter at bedside said after e said she cannot see much of anything. States that she does have appointmentset up with nephrology. Daughter reports that patient has been lost to some follow- ups due to lack of transportation. She sees a Dr. Cohen in [place] for her liver disease and she is also to see Dr. Chin but has not seen him yet. States that she did not take her insulin today, states sometimes sheforgets before she starts eating. She is a pack-a-day smoker, denies alcohol or marijuana use. She denies chest pain, shortness of breath, fever or chills, nausea vomiting. Pelvic x-ray shows a right-sided intertrochanteric hip fracture with 90 degrees angulation, no other acute fracture, no pelvic fracture. CT of the head showed no acute intracranial abnormality. Chestx-ray showed no acute cardiopulmonary findings. CT of the C-spine showed no cervical spine fracture. Right ankle andtib-fib were negative for fracture. EKG is sinus rhythm. She received 10 unitsof regular insulin IV and hydromorphone, 1 L saline bolus. She will be admittedas inpatient to the surgical floor. Review of Systems Review of Systems Review of systems: A 10 point review of systems was obtained, negative unless noted in the HPI or below. PMFSH Medical History Esophageal varices with band ligation BMI 22.0-22.9, adult Dietary counseling and surveillance Hyperlipidemia Lower GI bleed Diabetes type 2 Dietary counseling and surveillance Type 1 diabetes mellitus with hyperglycemia Vitamin D deficiency HTN (hypertension) GERD (gastroesophageal reflux disease) Asthma Arthritis Umbilical hernia PVD (peripheral vascular disease) COPD (chronic obstructive pulmonary disease) Rheumatoid arthritis Diabetes Surgical History History of hernia repair S/P TIPS (transjugular intrahepatic portosystemic shunt) History of cholecystectomy History of esophagogastroduodenoscopy (EGD) Family History Mother Diabetes Heart disease Father Diabetes Sister Diabetes Sister Diabetes Brother Cancer Legacy FamHx Relation: Brother(s); Legacy FamHx Problem: Diagnosed with Cancer Family history of mental disorder Legacy FamHx Relation: Brother(s); Legacy FamHx Problem: Diagnosed with Mental Illness Diabetes Legacy FamHx Relation: Brother(s) Father Dementia Diabetes Family/Other Legacy FamHx Problem: DENIES FAMILY HX OF COLON CANCER:1 daughter insulin resistant:1 sister cancer liver:1 brother blood cancer:1 brother cirrhois Grandparent Legacy FamHx Relation: Maternal Grand Father Grandparent Legacy FamHx Relation: Maternal Grand Mother Grandparent Diabetes Legacy FamHx Relation: Paternal Grand Father Legacy FamHx Relation: Paternal Grand Father Grandparent Legacy FamHx Relation: Paternal Grand Mother Diabetes Legacy FamHx Relation: Paternal Grand Mother Mother Diabetes Heart disease 63 yrs Mother Diabetes Sister Cancer Legacy FamHx Problem: Diagnosed with Cancer Diabetes Social History Marital Status: Smoking Status: Current every day smoker Tobacco Type: cigarettes Substance Use Type: None Social History Comments: muscle and tissue damage lives in a duplex Meds Medications and Allergies Allergies No Known Allergies Allergy (Verified 06/30/24 19:20) Home Medications gabapentin 300 mg capsule 300 mg PO TID #0 caps 05/24/23 [Rx Confirmed 06/30/24] atorvastatin 10 mg tablet 10 mg PO DAILY 90 days #90 tabs 06/04/23 [Rx Confirmed 06/30/24] pantoprazole 40 mg tablet,delayed release 40 mg PO DAILY 06/15/23 [History Confirmed 06/30/24] polyethylene glycol 3350 17 gram/dose oral powder (Miralax) 17 g PO TID 06/15/23[History Confirmed 06/30/24] ursodiol 250 mg tablet 250 mg PO BID 06/15/23 [History Confirmed 06/30/24] insulin aspart (niacinamide)(U-100) 100 unit/mL(3 mL) subcutaneous pen (Fiasp FlexTouch U-100 Insulin) See Rx Instructions subcut USEASDIRECTD 90 days #15 mL 07/21/23 [Rx Confirmed 06/30/24] insulin degludec 100 unit/mL (3 mL) subcutaneous pen (Tresiba FlexTouch U-100 insulin) See Rx Instructions subcut DAILY 07/21/23 [History Confirmed 06/30/24] spironolactone 50 mg tablet 50 mg PO DAILY 07/21/23 [History Confirmed 06/30/24] blood sugar diagnostic (Ansibleuch Ultra Test strips) #400 ea 10/05/23 [Rx Confirmed 06/30/24] furosemide 20 mg tablet (Lasix) 20 mg PO DAILY 11/30/23 [History Confirmed 06/30/24] magnesium oxide 400 mg PO DAILY #90 tabs 11/30/23 [Rx Confirmed 06/30/24] Exam Physical Exam Vital Signs: Temp Pulse Resp BP Pulse Ox O2 Del Method 98.1 F 95 16 155/69 H 99 Room Air 06/30/24 19:20 06/30/24 21:41 06/30/24 21:41 06/30/24 21:41 06/30/24 21:41 06/30/24 21:41 Narrative: CONST- Older than stated age HEAD - Normocephalic and atraumatic EENT-Sclera nonicteric, conjunctive are non-erythemic, dry oral mucosa, pharynx clear, poor vision NECK-Supple, no cervical lymphadenopathy CARDIAC-normal rate, regular rhythm, S1 & S2. PULM-diminished without wheeze or rhonchi, RA, no accessory muscle use or cough noted, clubbing to fingers ABD - Soft. Bowel sounds are normal. No distention. No tenderness EXTREM- scant edema BLE calves, tenderness and pain to RLE SKIN- W/D good turgor MS- MAEX4 spontaneously, RLE shortened, outward rotation, swelling to hip NEURO- A&Ox3 speech clear and tongue midline, equal facial symmetry, no focal motor deficits PSYCH-Mood, affect, and behavior appropriate Results - Hospitalist H&P Lab Results Labs: Laboratory Last Values Corrected WBC 5.2 X10E3/uL (3.8-11.6) 06/30/24 20:36 Uncorrected WBC Count 5.2 x10E3/uL (3.8-11.6) 06/30/24 20:36 RBC 4.68 x10E6/uL (3.60-5.00) 06/30/24 20:36 Hgb 11.0 g/dL (11.8-15.4) L 06/30/24 20:36 Hct 35.1 % (34.0-46.4) 06/30/24 20:36 MCV 75.1 fl (80-100) L 06/30/24 20:36 MCH 23.4 pg (24.7-34.3) L 06/30/24 20:36 MCHC 31.2 g/dL (32.0-35.0) L 06/30/24 20:36 RDW 22.6 % (11.9-15.3) H 06/30/24 20:36 Plt Count 65 x10E3/uL (150-450) L 06/30/24 20:36 MPV 8.8 fl (6.3-10.7) 06/30/24 20:36 Neut % (Auto) 74.5 % (.) 06/30/24 20:36 Lymph % (Auto) 13.2 % (.) 06/30/24 20:36 Richardson % (Auto) 10.2 % (.) 06/30/24 20:36 Eos % (Auto) 1.0 % (.) 06/30/24 20: Baso % (Auto) 1.1 % (.) 06/30/24 20:36 Nucleat RBC Rel Count 0.0 /100 WBC (0-0.5) 06/30/24 20:36 Neut # (Auto) 3.9 x10E3/uL (1.8-7.7) 06/30/24 20:36 Lymph # (Auto) 0.7 x10E3/uL (1.00-4.8) L 06/30/24 20:36 Richardson # (Auto) 0.5 x10E3/uL (0.0-0.8) 06/30/24 20:36 Eos # (Auto) 0.1 x10E3/uL (0.0-0.45) 06/30/24 20:36 Baso # (Auto) 0.1 x10E3/uL (0.0-0.2) 06/30/24 20:36 Monocyte Dist Width 20.23 % (0.00-20.00) H 06/30/24 20:36 PHA Creatinine Clear 85.81 06/30/24 20:36 Sodium 128 mmol/L (136-145) L 06/30/24 20:36 Potassium 4.5 mmol/L (3.5-5.1) 06/30/24 20:36 Chloride 98 mmol/L (98-107) 06/30/24 20:36 Carbon Dioxide 23.2 mmol/L (21.0-31.0) 06/30/24 20:36 Anion Gap 11.3 mEq/L (6.0-15.0) 06/30/24 20:36 BUN 10 mg/dL (7-25) 06/30/24 20:36 Creatinine 0.59 mg/dL (0.60-1.20) L 06/30/24 20:36 Est GFR (CKD-EPI) > 60.0 mL/Min 06/30/24 20:36 Glucose 605 mg/dL (70-100) H* 06/30/24 20:36 Calcium 8.0 mg/dL (8.6-10.3) L 06/30/24 20:36 Total Bilirubin 1.2 mg/dl (0.3-1.0) H 06/30/24 20:36 Direct Bilirubin 0.50 mg/dL (0.03-0.18) H 06/30/24 20:36 Indirect Bilirubin 0.7 mg/dL 06/30/24 20:36 AST 43 U/L (13-39) H 06/30/24 20:36 ALT 34 U/L (7-52) 06/30/24 20:36 Alkaline Phosphatase 201 U/L (34-104) H 06/30/24 20:36 Total Protein 6.5 gm/dL (6.4-8.9) 06/30/24 20:36 Albumin 2.4 gm/dL (3.5-5.7) L 06/30/24 20:36 Globulin 4.1 gm/dL 06/30/24 20:36 Albumin/Globulin Ratio 0.6 06/30/24 20:36 Lipase 58.0 U/L (11.0-82.0) 06/30/24 20:36 Urine Color Light-yellow (Yellow) 06/30/24 20:50 Urine Appearance Clear (Clear) 06/30/24 20:50 Urine pH 6.5 (5.0-9.0) 06/30/24 20:50 Ur Specific [place] 1.027 (1.001-1.030) 06/30/24 20:50 Urine Protein Negative mg/dL (Negative) 06/30/24 20:50 Urine Glucose (UA) >=1000 mg/dL (Normal) H 06/30/24 20:50 Urine Ketones Negative (Negative) 06/30/24 20:50 Urine Occult Blood Negative (Negative) 06/30/24 20:50 Urine Nitrite Negative (Negative) 06/30/24 20:50 Urine Bilirubin Negative (Negative) 06/30/24 20:50 Urine Urobilinogen Normal mg/dL (Normal) 06/30/24 20:50 Ur Leukocyte Esterase Negative (Negative) 06/30/24 20:50 Assessment & Plan Assessment/Plan (1) Closed right hip fracture: (2) Diabetes: (3) Hyperglycemia: (4) Thrombocytopenia: (5) Primary biliary cholangitis: (6) Tobacco dependence: Plan Closed right intertrochanteric fracture - Consult orthopedics - Acetaminophen, Oxy IR, hydromorphone as needed - Zofran as needed - NPO at midnight, LR @ 50cc/hr - CBC, BMP, Mag, PT/INR, PTT in am - PT/OT post op DM with Hyperglycemia- uncontrolled T1DM - Fingersticks ACHS, SSIC, A1c, Vitamin D in am - Pseudohyponatremia- corrected sodium 136 for hyperglycemia Tobacco dependence?tobacco cessation Chronic conditions Thrombocytopenia likely due to liver disease- no signs of bleeding, current level 65,000 PBC HTN HLD COPD DVT PPx?SCDs Diet order?1800 ADA, n.p.o. midnight CODE STATUS?full code Attending Physician Attestation: I personally reviewed the history, performed the carbone elements of the exam, formulated the plan of care and confirmed the written note. I agree with the findings and plan as documented in this note and have edited it if needed to reflect my findings and plan. Sarah Cao MD IP vs OBS Justification Based on differential dx, clinical care plan, and risk of adverse events, if untreated, in my clinical judgement this patient requires an acute care setting as: INPATIENT because of an expectation ofan over 2 midnight stay. Estimated length of stay (# of days): 3 Documented By: Coco Zamora, RESAW FEEDER 06/30/242206 Signed By: 06/30/24225607/01/24 0011 [facility]05-02-2025 Evaluation note* Diagnosis Onset Date Resolution Status Admit Date Cirrhosis of liver with ascites acut e June 30, 2024 9:16pm Closed right hip fracture acute June 30, 2024 9:16pm Diabetes acute June 30, 2024 9:16pm Fall acute June 30, 2024 9:16pm HTN (hypertension) acute June d2024 9:16pm Hyperglycemia acute June 30 9:16pm Hyperlipidemia acute June 30 025 9:16pm Impaired mobility and activi ties of daily living acute June 30, 2024 9: 16pm Intertrochanteric fracture o f right hip acute June 30, 2024 9: 16pm Non-healing wound acute June 9:16pm Primary biliary cholangitis acute June 30, 2024 9:16pm Thrombocytopenia acute June 30, 2024 9:16pm Tobacco dependence acute June d2024 9:16pm Vitamin D deficiency acute June 30, 2024 9:16pm [facility] Work Phone: 1(862) 785-682605-02-2025 Evaluation note* Diagnosis Onset Date Resolution Status Admit Date Cirrhosis of liver with ascites acut e June 30, 2024 9:16pm Diabetes acute June 30, 2024 9:16pm HTN (hypertension) acute June d2024 9:16pm Hyperlipidemia acute May 2nd, 2 025 9:16pm Impaired mobility and activi ties of daily living acute June 30, 2024 9: 16pm Intertrochanteric fracture o f right hip acute June 30, 2024 9: 16pm Non-healing wound acute June 9:16pm Primary biliary cholangitis acute June 30, 2024 9:16pm Thrombocytopenia acute June 30, 2024 9:16pm Tobacco dependence acute June d2024 9:16pm Vitamin D deficiency acute June 30, 2024 9:16pm Fall resolved June 30, 2024 9:16pm Hyperglycemia resolved June 30 9:16pm Closed right hip fracture deleted June 30, 2024 9:16pm Intertrochanteric fracture o f right hip acute July 26, 2024 2:13pm Other specified postprocedur al states noneactive July 26, 2024 2:13pm [facility] Work Phone: 1(851) 719-216805-02-2025 Evaluation note* Diagnosis Onset Date Resolution Status Admit Date Cirrhosis of liver with ascites acut e June 30, 2024 9:16pm Diabetes acute June 30, 2024 9:16pm HTN (hypertension) acute June 9:16pm Hyperlipidemia acute June 30 025 9:16pm Impaired mobility and activi ties of daily living acute June 30, 2024 9: 16pm Intertrochanteric fracture o f right hip acute June 30, 2024 9: 16pm Non-healing wound acute June 9:16pm Primary biliary cholangitis acute June 30, 2024 9:16pm Thrombocytopenia acute June 30, 2024 9:16pm Tobacco dependence acute June 2n d2024 9:16pm Vitamin D deficiency acute June 30, 2024 9:16pm Fall resolved June 30, 2024 9:16pm Hyperglycemia resolved June 30 9:16pm Closed right hip fracture deleted June 30, 2024 9:16pm Intertrochanteric fracture o f right hip acute July 26, 2024 2:13pm Other specified postprocedur al states noneactive July 26, 2024 2:13pm Acute metabolic encephalopathy acute August 19, 2024 5:37pm Altered mental status acute Jul 5:37pm Hyperglycemia acute August 19, 2024 5:37pm Intertrochanteric fracture o f right hip acute August 23, 2024 2:42pm Other specified postprocedur al states noneactive August 23, 2024 2:42pm [facility] Work Phone: 1(359) 748-971205-02-2025 Radiology Diagnostic study [facility] [place] [address] [place], [place] [id number] CT Scan Report Signed Patient: Teresa Lyle MR#: [id number] : 1960 Acct:[id number] Age/Sex: 64 / F ADM Date: 5 Loc: ER Room: Type: [facility] ER Attending Dr: Copies to: Harsha Wren DO~ Ordering Provider: Harsha Wren DO Date of Service: 06/30/24 CT/CT cervical spine wo con: r/o fx CT CERVICAL SPINE WITHOUT CONTRAST WITH 3D RECONSTRUCTIONS: CLINICAL HISTORY: Fell down 3 steps, right hip pain COMPARISON: None TECHNIQUE: Spiral axial unenhanced images were obtained through the cervical spine. Sagittal, coronal and 3D volume-rendered reconstructions were also reviewed. This CT exam was performed using one or more following dose reductiontechniques: Automated exposure control, adjustment of the mA and/or kV accordingto patient size, or use of iterative reconstruction technique. FINDINGS: No fracture malalignment. Mild multilevel degenerative changes with intervertebral space narrowing greatest C5-C6. Overall mild multilevel facet arthropathy. Mild dextrocurvature. Lung apices are grossly clear. No prevertebral soft tissue swelling CT/CT cervical spine wo con IMPRESSION: NO CERVICAL SPINE FRACTURE Impression dictated by: Navarro Lange M.D. 06/30/2024 8:34 PM Dictation Location: [place] [address] Transcribed By: [facility] 06/30/242033 Dictated By: Navarro Lange MD 06/30/242030 Signed By: 06/30/242033 [facility] Work Phone: 1(638) 359-667305-02-2025 [facility] [address] [address] [address] Scan Report Signed Patient: Teresa Lyle MR#: [id number] : 1960 Acct:[id number] Age/Sex: 64 / F ADM Date: 5 Loc: ER Room: Type: PRE ER Attending Dr: Copies to: Harsha Wren DO~ Ordering Provider: Harsha Wren DO Date of Service: 06/30/24 CT/CT head/brain wo con: r/o ich CT BRAIN WITHOUT CONTRAST: CLINICAL HISTORY: Fell down 3 steps, right-sided hip pain COMPARISON: None TECHNIQUE: Contiguous axial unenhanced images were obtained through the brain. This CT exam was performed using one or more following dose reduction techniques: Automated exposure control, adjustmentof the mA and/or kV accordingto patient size, or use of iterative reconstruction technique. FINDINGS: There is no evidence of midline shift, intra or extra-axial fluid collection, hemorrhage or CT evidence of large vascular distribution stroke. There are intracranial vascular calcifications Visualized intraorbital contents appear unremarkable. Mild ethmoid sinus mucoperiosteal thickening The surrounding soft tissues are normal. CT/CT head/brain wo con IMPRESSION: NO ACUTE INTRACRANIAL ABNORMALITY. Impression dictated by: Navarro Lange M.D. 06/30/2024 8:22 PM Dictation Location: [place] [address] Transcribed By: [facility] 06/30/242021 Dictated By: Navarro Lange MD 06/30/242016 Signed By: 06/30/242021 [facility] Work Phone: 1([phone]) 455-727305-02-2025 Evaluation note* Diagnosis Onset Date Resolution Status Admit Date Closed right hip fracture acute June 30, 2024 9:16pm Diabetes acute June 30, 2024 9:16pm Hyperglycemia acute June 30 9:16pm Primary biliary cholangitis acute June 30, 2024 9:16pm Thrombocytopenia acute June 30, 2024 9:16pm Tobacco dependence acute June 9:16pm [facility] Work Phone: 1(355) 583-886204-30-2025 NoteHNO ID: [id number] Author: ?, ?, ? Service: ? Author Type: ? Type: Progress Notes Filed: 06/28/2024 11:18 Note Text: [facility] Provider Action/FYI Patient is referred by Gary for screening mammogram. LMOVM to call me back to schedule. Letter sent. [facility] History of Present illness Narrative* Laz Reed - 06/28/2024 11:14 AM EDT [facility] Provider Action/FYI Patient is referred by Gary for screening mammogram. LMOVM to call me back to schedule. Letter sent. Laz Reed [facility] NotePatient Outreach (HEMAC[facility]) TERESA LYLE ([id number]) 1960 F Date Time Provider Department 06/28/24 NO FOLLOW UP REQUIRED HEMACO During your visit today, we recorded the following information about you: Laz Reed 06/28/2024 11:18 AM Signed [facility] Provider Action/THEODOREI Patient is referred by Gary for screening mammogram. LMOVM to call me back to schedule. Letter sent. Laz Reed Allergies As of Date: 06/28/2024 (No Known Allergies) Date Reviewed: 01/18/2024 Reviewed by: Arelis Montalvo LPN - Fully Assessed Reason for Visit: Community Outreach [Other] Cmt: Screening Mammogram Referral/ Learning And Development Specialist Prescriptions as of 06/28/2024 - ergocalciferol 50,000 unit capsule (VITAMIN D2, DRISDOL) Take 1 capsule by mouth one time a week for 7 doses. - furosemide (LASIX) 20 mg tablet Take 1 tablet by mouth once daily. - spironolactone (ALDACTONE) 50 mg tablet Take 1 tablet by mouth once daily. - vitamin A (AQUASOL A) 10,000 unit capsule Take 1 capsule by mouth once daily. - insulin glargine 100 unit/mL (3 mL) Inject 30 Units subcutaneously every morning. Daily at 9 am - polyethylene glycol 3350 17 gram packet Take 1 Packet by mouth three times a day. Dissolve dose in 4 - 8 ounces of liquid and take as directed. - insulin lispro 100 unit/mL injection Inject 5 Units subcutaneously with meals. Please hold if skipping a meal - atorvastatin (LIPITOR) 10 mg tablet - blood sugar diagnostic (ONE TOUCH [facility]) - gabapentin (NEURONTIN) 300 mg capsule Take 300 mg by mouth three times daily. - pantoprazole DR (PROTONIX) 40 mg tablet Take 40 mg by mouth once daily. - Fluticasone Propionate 50 mcg/actuation diskus inhaler Inhale 1 Puff as instructed twice daily. - tiotropium bromide 1.25 mcg/actuation mist Inhale 2 Puffs as instructed once daily. - blood sugar diagnostic test strip before meals and at bedtime. 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*05/25/2023 ABLA (acute blood loss anemia) [D62] 05/25/2023 05/31/2023 Hypoglycemia [E16.2] 05/25/2023 05/31/2023 Nicotine use disorder, F17.2 [F17.200] 05/27/2023 Malnutrition of moderate degree (HCC) [E44.0] 05/27/2023 Hypophosphataemia [E83.39] 05/28/2023 05/31/2023 Type 2 diabetes mellitus with hyperglycemia, wi*05/28/2023 Insulin dose changed (HCC) [Z79.4] 05/28/2023 Portal hypertension (HCC) [K76.6] 05/28/2023 Esophageal varices without bleeding (HCC) [I85.*05/29/2023 Other ascites [R18.8] 05/29/2023 S/P TIPS (transjugular intrahepatic portosystem*05/29/2023 Vitamin D deficiency [E55.9] 05/29/2023 Alcoholic cirrhosis of liver with ascites (HCC)*05/29/2023 Frailty [R54] 05/29/2023 Moderate protein-calorie malnutrition (HCC) [E4*05/29/2023 05/31/2023 Letter Text Encounter Status:Closed by LAZ REED on 06/28/24[facility] 06-27-2024 NoteHNO ID: [id number] Author: ?, ?, ? Service: ? Author Type: ? Type: Progress Notes Filed: 06/27/2024 15:39 Note Text: [facility] Provider Action/FYI Patient is referred by Gary for screening mammogram. LMOVM to call me back to schedule. [facility] History of Present illness Narrative* Laz Reed - 06/27/2024 3:12 PM EDT [facility] Provider Action/FYI Patient is referred by Gary for screening mammogram. LMOVM to call me back to schedule. Laz Reed documented [facility] NotePatient Outreach ([facility]) TERESA LYLE ([id number]) 1960 F Date Time Provider Department 06/27/24 NO FOLLOW UP REQUIRED HEMACO During your visit today, we recorded the following information about you: Laz Reed 06/27/2024 3:39 PM Signed [facility] Provider Action/THEODOREI Patient is referred by Gary for screening mammogram. LMOVM to call me back to schedule. Laz Reed Allergies As of Date: 06/27/2024 (No Known Allergies) Date Reviewed: 01/18/2024 Reviewed by: Rocky Jason, Arelis, MANUFACTURING ENGINEERING MANAGER - Fully Assessed Reason for Visit: Community Outreach [Other] Cmt: Screening Mammogram Referral/ Learning And Development Specialist Prescriptions as of 06/27/2024 - ergocalciferol 50,000 unit capsule (VITAMIN D2, DRISDOL) Take 1 capsule by mouth one time a week for 7 doses. - furosemide (LASIX) 20 mg tablet Take 1 tablet by mouth once daily. - spironolactone (ALDACTONE) 50 mg tablet Take 1 tablet by mouth once daily. - vitamin A (AQUASOL A) 10,000 unit capsule Take 1 capsule by mouth once daily. - insulin glargine 100 unit/mL (3 mL) Inject 30 Units subcutaneously every morning. Daily at 9 am - polyethylene glycol 3350 17 gram packet Take 1 Packet by mouth three times a day. Dissolve dose in 4 - 8 ounces of liquid and take as directed. - insulin lispro 100 unit/mL injection Inject 5 Units subcutaneously with meals. Please hold if skipping a meal - atorvastatin (LIPITOR) 10 mg tablet - blood sugar diagnostic (ONE TOUCH TEST [facility]) - gabapentin (NEURONTIN) 300 mg capsule Take 300 mg by mouth three times daily. - pantoprazole DR (PROTONIX) 40 mg tablet Take 40 mg by mouth once daily. - Fluticasone Propionate 50 mcg/actuation diskus inhaler Inhale 1 Puff as instructed twice daily. - tiotropium bromide 1.25 mcg/actuation mist Inhale 2 Puffs as instructed once daily. - blood sugar diagnostic test strip before meals and at bedtime. 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*05/25/2023 ABLA (acute blood loss anemia) [D62] 05/25/2023 05/31/2023 Hypoglycemia [E16.2] 05/25/2023 05/31/2023 Nicotine use disorder, F17.2 [F17.200] 05/27/2023 Malnutrition of moderate degree (HCC) [E44.0] 05/27/2023 Hypophosphataemia [E83.39] 05/28/2023 05/31/2023 Type 2 diabetes mellitus with hyperglycemia, wi*05/28/2023 Insulin dose changed (HCC) [Z79.4] 05/28/2023 Portal hypertension (HCC) [K76.6] 05/28/2023 Esophageal varices without bleeding (HCC) [I85.*05/29/2023 Other ascites [R18.8] 05/29/2023 S/P TIPS (transjugular intrahepatic portosystem*05/29/2023 Vitamin D deficiency [E55.9] 05/29/2023 Alcoholic cirrhosis of liver with ascites (HCC)*05/29/2023 Frailty [R54] 05/29/2023 Moderate protein-calorie malnutrition (HCC) [E4*05/29/2023 05/31/2023 Encounter Status:Closed by LAZ REED on 06/27/24[facility] 04-18-2024 Evaluation + Plan note Diagnostic Tests Pending * CBC w/ Auto Diff 04/18/24 * Comprehensive Metabolic Panel 04/18/24 * HgbA1c 04/18/24 * Lipid Panel 04/18/24 * Thyroid Stimulating Hormone 04/18/24 [facility] [id number] Instructions* Patient Instructions* Noemi Lockett APRN.CNP - 01/18/2024 12:01 PM EST Blood work in April locally Schedule bone density scan to be done near you Continue with medications as prescribed Follow up in [address] Cohen [facility] NoteHNO ID: [id number] Author: NOEMI LOCKETT APRN.CNP Service: ? Author Type: Nurse Practitioner Type: Progress Notes Filed: 01/19/2024 16:47 Note Text: NAME: Teresa Lyle [facility] NO: [id number] REFERRING PHYSICIAN: Jena Cohen PRESENTING COMPLAINT: follow up HPI: Teresa Lyle is a 63 year old female is here on follow up for 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 Pmhx includes DM, GERD, COPD, fibromylgia, ventral hernia, arthritis GAL with Dr. Cohen on 07/05/23. 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 Now s/p hospitalization for variceal bleeding locally-s/p EGD locally with varices; transferred here, and underwent TIPS with substantial reduction in hepatic venous pressure gradient. No further issues with bleeding Lower extremity edema managed with diuretics Hepatic encephalopathy managed with MiraLAX (unfortunately, unable to afford rifaximin)-but per her sister, relatively intact mental status when taking medicines When last seen, relatively low MELD -likely too early still to begin transplant eval Long discussion today re issues, complications of liver disease, threshold for OLT eval, process, etc. Suggested 1. Portal Htn Liver vascular Dopplers every 6 months 2. Cirrhosis -labs pending from today to recalc MELD -imaging per protocol 3. PBC -currently on uros, with most recent labs with normalization of alkaline phosphatase -BMD 4. OLT -likely still too early to be considered - will plan to f/u in liver clinic 5. Volume overload -2 g sodium diet (not yet adherent) -Daily weights -Continue current diuretics Interval hx: She is doing ok Here today with her sister Concerned about feeling bloated, wondering if she is retaining water Currently taking Chris 500 mg BID PT currently denies jaundice, confusion/disorientation, ascites, hematemesis, dark/tarry stools, curt colored stools, or dark urine. All other systems reviewed and are negative REVIEW OF SYSTEMS GENERAL: No unexplained weight changes or fevers. HEENT: Negative for severe headaches, negative for changes in hearing or vision. NECK: Negative for lumps, masses or pain. RESPIRATORY: Negative for coughing, wheezing or significant dyspnea. CARDIOVASCULAR: Negative for chest pain or heart palpitations. GASTROINTESTINAL: Negative for rectal bleeding or black tarry stools. GENITOURINARY: Negative for dysuria or urinary incontinence. MUSCULOSKELETAL: Negative for unexplained joint pains, dislocations or fractures. NEUROLOGIC: Negative for unexplained weakness or vertigo. SKIN: Negative for new lesions or rashes. ENDOCRINE: Negative for cold or heat intolerance . Current Outpatient Medications Medication Sig Dispense Refill furosemide (LASIX) 20 mg tablet Take 1 tablet by mouth once daily. 90 tablet 3 spironolactone (ALDACTONE) 50 mg tablet Take 1 tablet by mouth once daily. 90 tablet 3 ursodiol (CHRIS) 250 mg tablet Take 2 tablets by mouth two times a day with meals. 120 tablet 11 vitamin A (AQUASOL A) 10,000 unit capsule Take 1 capsule by mouth once daily. 30 capsule 1 ergocalciferol 50,000 unit capsule (VITAMIN D2, DRISDOL) Take 1 capsule by mouth one time a week for 7 doses. 7 capsule 0 insulin glargine 100 unit/mL (3 mL) Inject 30 Units subcutaneously every morning. Daily at 9 am polyethylene glycol 3350 17 gram packet Take 1 Packet by mouth three times a day. Dissolve dose in 4 - 8 ounces of liquid and take as directed. 100 Packet 1 insulin lispro 100 unit/mL injection Inject 5 Units subcutaneously with meals. Please hold if skipping a meal rifAXIMin (XIFAXAN) 550 mg tablet Take 1 tablet by mouth two times a day. 60 tablet 11 atorvastatin (LIPITOR) 10 mg tablet gabapentin (NEURONTIN) 300 mg capsule Take 300 mg by mouth three times daily. pantoprazole DR (PROTONIX) 40 mg tablet Take 40 mg by mouth once daily. blood sugar diagnostic ([facility] [place] [facility]) (Patient not taking: Reported on 08/17/2022) Fluticasone Propionate 50 mcg/actuation diskus inhaler Inhale 1 Puff as instructed twice daily. (Patient not taking: Reported on 06/11/2023) tiotropium bromide 1.25 mcg/actuation mist Inhale 2 Puffs as instructed once daily. (Patient not taking: Reported on 08/17/2022) blood sugar diagnostic test strip before meals and at bedtime. Use as instructed (Patient not taking: Reported on 08/17/2022) No current facility-administered medications for this visit. ALLERGIES No Known Allergies Social History Tobacco Use Sm (more content not included)...[facility]11-19-2024 History of Present illness Narrative* Noemi Lockett, ALLY.CIRCULATION ASSISTANT - 01/18/2024 11:43 AM EST NAME: Teresa Lyle CLINIC NO: [id number] REFERRING PHYSICIAN: Jena Cohen PRESENTING COMPLAINT: follow up HPI: Teresa Lyle is a 63 year old female is here on follow up for 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 Pmhx includes DM, GERD, COPD, fibromylgia, ventralhernia, arthritis GAL with Dr. Cohen on 07/05/23. 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 Now s/p hospitalization for variceal bleeding locally-s/p EGD locally with varices; transferred here, and underwent TIPS with substantial reduction in hepatic venous pressure gradient. No further issues with bleeding Lower extremity edema managed with diuretics Hepatic encephalopathy managed with MiraLAX (unfortunately, unable to afford rifaximin)-but per hersister, relatively intact mental status when taking medicines When last seen, relatively low MELD -likely too early still to begin transplant eval Long discussion today re issues, complications of liver disease, threshold for OLT eval, process, etc. Suggested 1. Portal Htn Liver vascular Dopplers every 6 months 2. Cirrhosis -labs pending from today to recalc MELD -imaging per protocol 3. PBC -currently on uros, with most recent labs with normalization of alkaline phosphatase -BMD 4. OLT -likely still too early to be considered - will plan to f/u in liver clinic 5. Volume overload -2 g sodium diet (not yet adherent) -Daily weights -Continue current diuretics Interval hx: She is doing ok Here today with her sister Concerned about feeling bloated, wondering if she is retaining water Currently taking Chris 500 mg BID PT currently denies jaundice, confusion/disorientation, ascites, hematemesis, dark/tarry stools, curt colored stools, or dark urine. All other systems reviewed and are negative REVIEW OF SYSTEMS GENERAL: No unexplained weight changes or fevers. HEENT: Negative for severe headaches, negative for changes in hearing or vision. NECK: Negative for lumps, masses or pain. RESPIRATORY: Negative for coughing, wheezing or significant dyspnea. CARDIOVASCULAR: Negative for chest pain or heart palpitations. GASTROINTESTINAL: Negative for rectal bleeding or black tarry stools. GENITOURINARY: Negative for dysuria or urinary incontinence. MUSCULOSKELETAL: Negative for unexplained joint pains, dislocations or fractures. NEUROLOGIC: Negative for unexplained weakness or vertigo. SKIN: Negative for new lesions or rashes. ENDOCRINE: Negative for cold or heat intolerance . Current Outpatient Medications Medication Sig Dispense Refill furosemide (LASIX) 20 mg tablet Take 1 tablet by mouth once daily. 90 tablet 3 spironolactone (ALDACTONE) 50 mg tablet Take 1 tablet by mouth once daily. 90 tablet 3 ursodiol (CHRIS) 250 mg tablet Take 2 tablets by mouth two times a day with meals. 120 tablet 11 vitamin A (AQUASOL A) 10,000 unit capsule Take 1 capsule by mouth once daily. 30 capsule 1 ergocalciferol 50,000 unit capsule (VITAMIN D2, DRISDOL) Take 1 capsule by mouth one time a week for 7 doses. 7 capsule 0 insulin glargine 100 unit/mL (3 mL) Inject 30 Units subcutaneously every morning. Daily at 9 am polyethylene glycol 3350 17 gram packet Take 1 Packet by mouth three times a day. Dissolve dose in 4 - 8 ounces of liquid and take as directed. 100 Packet 1 insulin lispro 100 unit/mL injection Inject 5 Units subcutaneously with meals. Please hold if skipping a meal rifAXIMin (XIFAXAN) 550 mg tablet Take 1 tablet by mouth two times a day. 60 tablet 11 atorvastatin (LIPITOR) 10 mg tablet gabapentin (NEURONTIN) 300 mg capsule Take 300 mg by mouth three times daily. pantoprazole DR (PROTONIX) 40 mg tablet Take 40 mg by mouth once daily. blood sugar diagnostic ([facility] [place] [facility]) (Patient not taking: Reported on 08/17/2022) Fluticasone Propionate 50 mcg/actuation diskus inhaler Inhale 1 Puff as instructed twice daily. (Patient not taking: Reported on 06/11/2023) tiotropium bromide 1.25 mcg/actuation mist Inhale 2 Puffs as instructed once daily. (Patient not taking: Reported on 08/17/2022) blood sugar diagnostic test strip before meals and at bedtime. Use as instructed (Patient not taking: Reported on 08/17/2022) No current facility-administered medications for this visit. ALLERGIES No Known Allergies Social History Tobacco Use Smoking status: Every Day Current packs/day: 1.00 Types: Cigarettes Smokeless tobacco: Never Substance Use Topics Alcohol use: Not Currently Drug use: Not Currently PAST MEDICAL HISTORY Diagnosis Date Arthritis Ascites Chronic back pain COPD (chronic obstructive pulmonary disease) (HCC) Current every day smoker 1 PPD Diabetes (HCC) Esophageal varices (HCC) s/p band ligation Fibromyalgia GERD (gastroesophageal reflux disease) Hyperlipidemia Peripheral neuropathy Primary biliary cirrhosis (HCC) @SHX@ No family history on file. PHYSICAL EXAM BP 126/41[Patient states headache lack of sleep no distress[ Pulse 84 Temp (Src) 98.5 (Temporal) Ht 5' 2 (1.58m) Wt 140 lb 3.4 oz (63.6kg) SpO2 100% BMI 25.64 kg/(m^2). General Appearance: Well appearing, alert, in no acute distress, well-hydrated, well nourished. Eyes: PERRLA, conjunctiva and sclera normal Oropharynx: Lips, tongue, and oral mucosa normal. There is no thrush or oral ulcers. Lungs:breathing comfortably Heart: regular rate Abdomen: not distended Extremities: no cyanosis or edema Skin: no jaundice, no spider angiomas, no palmar erythema Neuro:alert, oriented x 3, pleasant and in no acute distress Recent Labs: Hemoglobin (g/dL) Date Value 07/05/2023 10.0 10/23/2020 14.3 Hematocrit (%) Date Value 07/05/2023 32.9 10/23/2020 43.2 WBC (k/uL) Date Value 07/05/2023 4.40 10/23/2020 7.80 Glucose (mg/dL) Date Value 07/05/2023 339 10/23/2020 250 Potassium (mmol/L) Date Value 07/05/2023 4.7 04/04/2021 4.0 10/23/2020 4.2 Sodium (mmol/L) Date Value 07/05/2023 128 10/23/2020 129 Chloride (mmol/L) Date Value 07/05/2023 96 10/23/2020 96 CO2 (mmol/L) Date Value 07/05/2023 24 10/23/2020 25 Creatinine (mg/dL) Date Value 07/05/2023 0.47 10/23/2020 0.56 BUN (mg/dL) Date Value 07/05/2023 14 10/23/2020 9 Anion Gap (mmol/L) Date Value 07/05/2023 8 10/23/2020 8 Calcium (mg/dL) Date Value 10/23/2020 8.7 Calcium, Total (mg/dL) Date Value 07/05/2023 8.6 Albumin (g/dL) Date Value 07/05/2023 2.8 (L) Bilirubin, Total (mg/dL) Date Value 07/05/2023 1.2 Bilirubin, Conjug (mg/dL) Date Value 10/23/2020 0.4 (H) Alkaline Phosphatase (U/L) Date Value 07/05/2023 274 (H) AST (U/L) Date Value 07/05/2023 36 (H) ALT (U/L) Date Value 07/05/2023 20 Protein, Total (g/dL) Date Value 07/05/2023 7.3 Imaging: LVUS 07/05/23 IMPRESSION: PATENT TIPS WITHOUT VELOCITY GRADIENT. PATENT HEPATIC VASCULATURE WITH APPROPRIATELY DIRECTED FLOW. CIRRHOTIC LIVER MORPHOLOGY. NO HEPATIC LESION. NO SPLENOMEGALY OR ASCITES. TWO SUBCENTIMETER ANECHOIC/HYPOECHOIC PANCREAS HEAD LESIONS WHICH WERE NOT VISUALIZED ON PRIOR ULTRASOUND, AND ARE EVALUATED WITH LIMITATION ON PRIOR PORTAL VENOUS PHASE CT. AT CLINICAL DISCRETION THESE MAY BE FOLLOWED WITH MRCP/PANCREAS-BILIARY MRI. LVUS 06/06/23 IMPRESSION: TIPS appears grossly patent, however technically limited by artifact. Technically limited Doppler assessment of the intrahepatic portal veins with main and anterior right portal veins grossly patent with appropriately directed flow post TIPS as detailed. Short interval sonographic surveillance recommended. Cirrhotic liver morphology. No focal hepatic lesions. Small volume ascites. Assessment IMPRESSION/ PLAN Teresa Lyle is a 63 year old female is here on follow up for PBS related cirrhosis c/b portl htn( ascites, PHG, EVL) now s/p TIPS in 04/2023, reduction of portosystemic gradient from 18 mmHg to 6 mmHg . Pmhx includes DM, GERD, COPD, fibromylgia, ventral hernia, arthritis MELD 3.0: 18 at 07/05/2023 10:22 AM MELD-Na: 9 at 07/05/2023 10:22 AM Calculated from: Serum Creatinine: 0.47 mg/dL (Using min of 1 mg/dL) at 07/05/2023 10:22 AM Serum Sodium: 128 mmol/L at 07/05/2023 10:22 AM Total Bilirubin: 1.2 mg/dL at 07/05/2023 10:22 AM Serum Albumin: 2.8 g/dL at 07/05/2023 10:22 AM INR(ratio): 1.2 at 07/05/2023 10:22 AM Age at listing (hypothetical): 63 years Sex: Female at 07/05/2023 10:22 AM EV: hx of EVL, now s/p TIPS procedure Ascites: s/p TIPS, last paracentesis in 04/2023. HE: On miralax. Could not afford Rifaximin at the time. Sx managed but having around 2 bowel movements/day HCC Screening: LVUS 07/05/23 with no liver lesion, MRCP completed today, results are pending. Bone Health: needs bone density scan completed, will send order with her to have done locally. Follow up in [address] Vicki Lockett APRN.COURT Lockett APRN.COURT January 18, 2024 11:43 AM documented in this [facility]Cl[facility] History of Present illness Narrative* Samantha Eaton RN - 01/18/2024 8:30 AM EST Radiology Service Progress Note DATE OF SERVICE: January 18, 2024 TIME: 9:13 AM PATIENT WEIGHT: 142 LBS PATIENT IDENTITY VERIFICATION COMPLETED USING TWO (2) STANDARD IDENTIFIERS: Name and Date of confirmed by patient verbally and Name and Date of confirmed by identification band. FALL SCREENING: Has the patient had 2 falls in the last year or 1 fall with injury or currently using an Ambulatory Assistive Device (Walker, Cane, Wheelchair, Crutches, etc.)? Yes, Patient High Riskfor Falls What interventions were put in place to prevent falls during this visit? Non- Skid Socks Used, Yellow Falls Risk Wristband Applied, Instructed Patient to Call for Help if Needed, Offered Assistance with Transfers/Clothing, Instructed Patient to Remain Seated (Not on Exam Table) Until Exam, and Increased Observations by Caregivers PATIENT GENDER DATA: Female. status: : No status: NO. ALLERGIES: Reviewed and unchanged CONTRAST ALLERGY: No EXAM: MRI - CONTRAST TYPE: GROUP II IV SITE: Ambulatory: A peripheral IV was started in the Left antecubital site with a Angio cath: 22gauge. and A Saline lock was inserted per protocol IV SITE APPEARANCE: Clean,Dry and Intact SIGNATURE: Samantha Eaton RN PATIENT NAME: Teresa Lyle DATE: January 18, 2024 TIME: 9:13 AM * Susanna Murry RT(R) - 01/18/2024 8:30 AM EST Radiology Service Progress Note PATIENT NAME: Teresa Lyle DATE OF SERVICE: January 18, 2024 TIME: 10:11 AM PATIENT IDENTITY VERIFICATION COMPLETED USING TWO (2) IDENTIFIERS: Name and Date of confirmedby patient verbally and Name and Date of confirmed by identification band. FALL SCREENING: Has the patient had 2 falls in the last year or 1 fall with injury or currently using an Ambulatory Assistive Device (Walker, Cane, Wheelchair, Crutches, etc.)? Yes, Patient High Riskfor Falls What interventions were put in place to prevent falls during this visit? Yellow Falls Risk Wristband Applied, Instructed Patient to Call for Help if Needed, Offered Assistance with Transfers/Clothing, Instructed Patient to Remain Seated (Not on Exam Table) Until Exam, Increased Observations by Caregivers, and Patient Refused Interventions/Assistance PATIENT GENDER DATA: Female. status: : No status: NO. PATIENT RELEVANT IMPLANT DATA REVIEWED: Yes PATIENT PRESENTS WITH AN IMPLANTABLE OR ATTACHED BIOLOGY SPECIMEN TECHNICIAN: No RADIOLOGY DEPARTMENT: MR; Exam(s) Completed: Body: Pancreas/Biliary PERIPHERAL IV DATA: Site assessment: Clean,Dry and Intact, Site disposition Discontinued SIGNED BY: RT Ju(R) January 18, 2024 10:11 AM documented in this encounterClerm[facility]11-[facility]24 NoteHNO ID: [id number] Author: SAMANTHA EATON RN Service: Nursing Author Type: Registered Nurse Type: Progress Notes Filed: 01/18/2024 09:19 Note Text: Radiology Service Progress Note DATE OF SERVICE: January 18, 2024 TIME: 9:13 AM PATIENT WEIGHT: 142 LBS PATIENT IDENTITY VERIFICATION COMPLETED USING TWO (2) STANDARD IDENTIFIERS: Name and Date of confirmed by patient verbally and Name and Date of confirmed by identification band. FALL SCREENING: Has the patient had 2 falls in the last year or 1 fall with injury or currently using an Ambulatory Assistive Device (Walker, Cane, Wheelchair, Crutches, etc.)? Yes, Patient High Risk for Falls What interventions were put in place to prevent falls during this visit? Non-Skid Socks Used, Yellow Falls Risk Wristband Applied, Instructed Patient to Call for Help if Needed, Offered Assistance with Transfers/Clothing, Instructed Patient to Remain Seated (Not on Exam Table) Until Exam, and Increased Observations by Caregivers PATIENT GENDER DATA: Female. status: : No status: NO. ALLERGIES: Reviewed and unchanged CONTRAST ALLERGY: No EXAM: MRI - CONTRAST TYPE: GROUP II IV SITE: Ambulatory: A peripheral IV was started in the Left antecubital site with a Angio cath: 22 gauge. and A Saline lock was inserted per protocol IV SITE APPEARANCE: Clean,Dry and Intact SIGNATURE: Samantha Eaton RN PATIENT NAME: Teresa Lyle DATE: January 18, 2024 TIME: 9:13 [facility]11-19-2024 NoteHNO ID: [id number] Author: SUSANNA MURRY RT(R) Service: Radiology Author Type: Technologist Type: Progress Notes Filed: 01/18/2024 10:12 Note Text: Radiology Service Progress Note PATIENT NAME: Teresa Lyle DATE OF SERVICE: January 18, 2024 TIME: 10:11 AM PATIENT IDENTITY VERIFICATION COMPLETED USING TWO (2) IDENTIFIERS: Name and Date of confirmed by patient verbally and Name and Date of confirmed by identification band. FALL SCREENING: Has the patient had 2 falls in the last year or 1 fall with injury or currently using an Ambulatory Assistive Device (Walker, Cane, Wheelchair, Crutches, etc.)? Yes, Patient High Risk for Falls What interventions were put in place to prevent falls during this visit? Yellow Falls Risk Wristband Applied, Instructed Patient to Call for Help if Needed, Offered Assistance with Transfers/Clothing, Instructed Patient to Remain Seated (Not on Exam Table) Until Exam, Increased Observations by Caregivers, and Patient Refused Interventions/Assistance PATIENT GENDER DATA: Female. status: : No status: NO. PATIENT RELEVANT IMPLANT DATA REVIEWED: Yes PATIENT PRESENTS WITH AN IMPLANTABLE OR ATTACHED BIOLOGY SPECIMEN TECHNICIAN: No RADIOLOGY DEPARTMENT: MR; Exam(s) Completed: Body: Pancreas/Biliary PERIPHERAL IV DATA: Site assessment: Clean,Dry and Intact, Site disposition Discontinued SIGNED BY: Susanna Murry, RT(R) January 18, 2024 10:11 [facility]05-18-2024 Telephone encounter Note* Telephone Encounter - Jena Cohen MD - 07/17/2023 10:34 PM EDT I think this is in reference to the bone mineral density test - can you try and figure out why this fails diagnostic necessity ? Thanks [facility] Miscellaneous Notes* Telephone Encounter - Jena Cohen MD - 07/17/2023 10:34 PM EDT I think this is in reference to the bone mineral density test - can you try and figure out why this fails diagnostic necessity ? Thanks * Telephone Encounter - Yoko Platt - 07/16/2023 3:59 PM EDT Diagnosis Fails Medical Necessity Fax from [facility] Scanned under external correspondence/Insurance Yoko Newells[employer] documented in this encounterClerm[facility]05-[facility] Telephone encounter Note * Telephone Encounter - Yoko Platt - 07/16/2023 3:59 PM EDT Diagnosis Fails Medical Necessity Fax from [facility] Scanned under external correspondence/Insurance Yoko Newellsolo [employer] [facility]-06-[facility] Instructions* Patient Instructions* Jena Cohen MD - 07/05/2023 12:19 PM EDT BONE MINERAL DENSITY PATIENT INSTRUCTIONS Bone mineral density testing measures the amount of calcium in certain parts of your bones. This information determines how strong your bones are. The test is used to detect osteoporosis, a disease in which the bone's mineral content and density are low, increasing a person's risk of fractures. Thelumbar spine (lower back) and the hip are the skeletal sites usually examined. For the test, remember that: 1. You cannot take this test if you are . 2. Eat a normal diet on the day of the test. 3. Take your medications as you normally would. 4. DO NOT take calcium supplements (such as Tums) for 24 hours before the test. 5. On the day of the test, leave valuables (jewelry or credit cards) at home. 6. The test should be performed prior to oral, rectal or IV contrast studies, or at least 7 days after any of these studies. For the test, you may be asked to wear a hospital gown. You will lie on your back, on a padded table, in a comfortable position. Generally, you can resume your usual activities immediately. documented in this encounterClerm[facility]05-06-2024 History of Present illness Narrative* Jena Cohen MD - 07/05/2023 11:48 AM EDT Hepatology Staff I saw and examined the patient. I agree with the resident's findings and plan of care. 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 [place] -h/o chronic back pain - on steroids, baclofen, amitryptylline -h/o EtOh: 20-> max 12 beers/d ~ 2x/ mo -> stopped mother's day 2019 -s/p EGD / colonoscopy -hemorrhoids Liver disease has been c/b -UGIB attrib to EV -s/p EGD 07/2017 w EVL as inpt at [place] -s/p f/u EGD done at [facility] 09/17/2017 -+/- HE -vol overload; on aldactone 100 (08/28/2019) + lasix 20 mg/d (started 08/07/2019) -portal Htn -ascites - s/p LVP x 1 @ [facility] -itching - now resolved Since last seen -still seeing GI locally: Dr Gómez then Dr Paredes, now Dr Gale -had been getting Egds locally -stopped obeticholic acid -developed GI bleed w BRBPR -s/p admission here 05/24/2023- 05/31/2023 Per d/c summary PROCEDURES DURING HOSPITALIZATION: >EGD at OSH 05/23: Large EV, severe PHG, not banded given significant scarring from prior banding >ECHO - May 25, EF 54%, normal LV and RV function, no valvular disease >TIPS 05/28/23 - reduction in gradient to 16mmHg from 6mmHg >LVUS 05/25/23- cirrhotic liver, mild tristan dil, s/p cholecystectomy, mod volume ascites, bidirectional flow in right posterior portal vein and left portal vein 2/2 portal HTN >Paracentesis 05/27/23- 4.7 liters removed, negative for SBP. HOSPITAL COURSE: Ms. 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 She was transferred to the [facility] MICU 05/23, where she was HDS on RA. Hepatology evaluated pt in ICU; started uroso, work up for TIPS, ceftriaxone, and octreotide for portal HTN bleed. Patient underwent LVUS, and ECHO for TIPS work up, ECHO with normal RV, normal RVSP, EF ~50% and thus underwent TIPS completed on May 27 with reduction in HVPG 16 mmHg-->6 mmHg. She completed a 7 day course of IV Ceftriaxone 1g. Octreotide was discontinued post-TIPS Post TIPS, patient was groggy and confused. She was empirically started on lactulose and Rifaximin.Patient's mental status continued to improve and she was switched to Miralax. Low dose diuretics started on 05/29 (lasix 20 mg daily and aldactone 50 mg daily) As an inpt underwent TIPS placement 05/28/23 with reduction of portosystemic gradient from 18 mmHg to 6 mmHg after dilatation with 8 mm balloon. Coil embolization of esophageal varix -s/p US done 06/03/23 IMPRESSION: TIPS appears grossly patent, however technically limited by artifact. Technically limited Doppler assessment of the intrahepatic portal veins with main and anterior right portal veins grossly patent with appropriately directed flow post TIPS as detailed. Short intervalsonographic surveillance recommended. Cirrhotic liver morphology. No focal hepatic lesions. Small volume ascites. -seen in followup by Moon Roper 06/11/23 -still smoking 1 ppd -has lost significant weight -taking miralax titrated to effect Current Outpatient Medications on File Prior to Visit Medication Sig insulin regular human (NOVOLIN R REGULAR U-100 INSULN) 100 unit/mL injection Inject subcutaneously three times daily before meals. baclofen (LIORESAL) 10 mg tablet Take 10 mg by mouth three times daily. blood sugar diagnostic (ONE TOUCH TEST MISC) gabapentin (NEURONTIN) 300 mg capsule Take 300 mg by mouth three times daily. amitriptyline (ELAVIL) 10 mg tablet Take 10 mg by mouth daily at bedtime. insulin lispro (HUMALOG PEN SUBCUTANEOUS) Inject subcutaneously. pantoprazole DR (PROTONIX) 40 mg tablet Take 40 mg by mouth once daily. carvedilol (COREG) 25 mg tablet Take 25 mg by mouth twice daily with meals. Fluticasone Propionate 50 mcg/actuation diskus inhaler Inhale 1 Puff as instructed twice daily. tiotropium bromide (SPIRIVA RESPIMAT) 1.25 mcg/actuation mist Inhale 2 Puffs as instructed once daily. MV-Min-Vit [id number] (AIR PROTECTOR) 1,000-50 mg tbef Take by mouth. blood sugar diagnostic (FREESTYLE INSULINX) test strip before meals and at bedtime. Use as instructed Vitamin A 8,000 unit capsule Take 1 capsule by mouth once daily. metFORMIN (GLUCOPHAGE) 500 mg tablet Take 500 mg by mouth daily with breakfast. ursodiol (ACTIGALL) 300 mg capsule Take 300 mg by mouth twice daily. No current facility-administered medications on file prior to visit. O/E BP 110/51 (BP Site: Left Arm, BP Position: Sitting, BP Cuff Size: Regular Adult) Pulse 86 Temp 36.7 C (98.1 F) (Temporal) Ht 157.5 cm (5' 2 ) Wt 57.4 kg (126 lb 8.7 oz) SpO2 100% BMI 23.15 kg/m Body mass index is 23.15 kg/m . skin: w+d HEENT: nc/at Chest: clear to A+P CVS: rrr Abd: soft, nt, nd/scaphoid. 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 Now s/p hospitalization for variceal bleeding locally-s/p EGD locally with varices; transferred here, and underwent TIPS with substantial reduction in hepatic venous pressure gradient. No further issues with bleeding Lower extremity edema managed with diuretics Hepatic encephalopathy managed with MiraLAX (unfortunately, unable to afford rifaximin)-but per hersister, relatively intact mental status when taking medicines When last seen, relatively low MELD -likely too early still to begin transplant eval Long discussion today re issues, complications of liver disease, threshold for OLT eval, process, etc. Suggested 1. Portal Htn Liver vascular Dopplers every 6 months 2. Cirrhosis -labs pending from today to recalc MELD -imaging per protocol 3. PBC -currently on uros, with most recent labs with normalization of alkaline phosphatase -BMD 4. OLT -likely still too early to be considered - will plan to f/u in liver clinic 5. Volume overload -2 g sodium diet (not yet adherent) -Daily weights -Continue current diuretics F/u on phone RTC ~ 4- 5 mo Jena Cohen MD MELD 3.0: 12 at 05/31/2023 6:52 AM MELD-Na: 9 at 05/31/2023 6:52 AM Calculated from: Serum Creatinine: 0.54 mg/dL (Using min of 1 mg/dL) at 05/30/2023 4:05 AM Serum Sodium: 137 mmol/L at 05/30/2023 4:05 AM Total Bilirubin: 1.0 mg/dL at 05/30/2023 4:05 AM Serum Albumin: 2.2 g/dL at 05/30/2023 4:05 AM INR(ratio): 1.3 at 05/31/2023 6:52 AM Age at listing (hypothetical): 63 years Sex: Female at 05/31/2023 6:52 AM * Ronny Medina MD - 07/05/2023 11:02 AM EDT NAME: Teresa Lyle CLINIC NO: [id number] REFERRING PHYSICIAN: Nimesh Chin PRESENTING COMPLAINT: PBC cirrhosis HPI: Teresa Lyle is a 62 year old female with PMHx COPD, T2DM c/b peripheral neuropathy, tobaccoabuse, cholecystectomy, fibromyalgia, chronic back pain, diagnosed with PBC at the time of cholecystectomy,is here on follow up for PBC cirrhosis c/b GI bleed and esophageal varices. Last seen by Dr. Cohen 10/23/20. Admitted 05/23-05/31/23 for GI bleed with subsequent TIPS placement Per hospital discharge summary: Ms. 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 She was transferred to the [facility] MICU 05/23, where she was HDS on RA. Hepatology evaluated pt in ICU; started uroso, work up for TIPS, ceftriaxone, and octreotide for portal HTN bleed. Patient underwent LVUS, and ECHO for TIPS work up, ECHO with normal RV, normal RVSP, EF ~50% and thus underwent TIPS completed on May 27 with reduction in HVPG 16 mmHg-->6 mmHg. She completed a 7 day course of IV Ceftriaxone 1g. Octreotide was discontinued post-TIPS Post TIPS, patient was groggy and confused. She was empirically started on lactulose and Rifaximin.Patient's mental status continued to improve and she was switched to Miralax. Low dose diuretics started on 05/29 (lasix 20 mg daily and aldactone 50 mg daily) Patient was skilled for home with [facility] and deemed stable for discharge on 05/31/2023 Since Last visit 06/11/23: Overall, feeling much improved since admission Taking Miralax TID, reports having 3 BM. Still on ursodiol 250mg BID Takes Lasix 40mg BID, 50mg daily, and Atorvastatin 10mg. Stopped Midodrine and Carvedilol. Scheudled for Liver Vascular US Today 07/05/23 Had total of 6.2L drained in para at [facility], 4.7L at [facility] (05/27/23). ETOH use: Denies Nutrition: predominantly eating fruits / salads, chicken for protein. EV: Denies. S/p TIPS placement 05/28/23 Ascites: Left lower leg edema. Improved on Lasix 20mg BID, Aldactone 50 mg tablet . States she usually adheres to low Na diet. HE: Much improved since admission. States Miralax 3x daily 2BMs. HCC screening: LVUS 06/03/23 with patent TIPS/ cirrhotic liver morphology. No focal hepatic lesions. Endorses weight loss (Wt 169 lbs in 05/22, 135 lbs in 06/11/23, 126 lbs today 07/05/23). Denies jaundice, RUQ pain, N/V/D/Constipation, hematochezia, hematemesis, ascites, episodes of confusion. IMAGING: US ABD Liver Vascualr 06/03/23 TIPS appears grossly patent, however technically limited by artifact. Technically limited Doppler assessment of the intrahepatic portal veins with main and anterior right portal veins grossly patent with appropriately directed flow post TIPS as detailed. Short interval sonographic surveillance recommended. Cirrhotic liver morphology. No focal hepatic lesions. Small volume ascites REVIEW OF SYSTEMS GENERAL: No unexplained weight changes or fevers. GASTROINTESTINAL: BRBPR occasionally. GENITOURINARY: Negative for dysuria or urinary incontinence. MUSCULOSKELETAL: Negative for unexplained joint pains, dislocations or fractures. NEUROLOGIC: Negative for unexplained weakness or vertigo. SKIN: Negative for new lesions or rashes. Pruritus. Current Outpatient Medications Medication Sig Dispense Refill ursodiol (CHRIS) 250 mg tablet Take 2 tablets by mouth two times a day with meals. 360 tablet 2 insulin glargine 100 unit/mL (3 mL) Inject 30 Units subcutaneously every morning. Daily at 9 am furosemide (LASIX) 20 mg tablet Take 1 tablet by mouth once daily. spironolactone (ALDACTONE) 50 mg tablet Take 1 tablet by mouth once daily. ergocalciferol 50,000 unit capsule (VITAMIN D2, DRISDOL) Take 1 capsule by mouth one time a week for 7 doses. 7 capsule 0 polyethylene glycol 3350 17 gram packet Take 1 Packet by mouth three times a day. Dissolve dose in 4 - 8 ounces of liquid and take as directed. 100 Packet 1 insulin lispro 100 unit/mL injection Inject 5 Units subcutaneously with meals. Please hold if skipping a meal vitamin A (AQUASOL A) 10,000 unit capsule Take 1 capsule by mouth once daily. 30 capsule 1 rifAXIMin (XIFAXAN) 550 mg tablet Take 1 tablet by mouth two times a day. 60 tablet 11 atorvastatin (LIPITOR) 10 mg tablet gabapentin (NEURONTIN) 300 mg capsule Take 300 mg by mouth three times daily. pantoprazole DR (PROTONIX) 40 mg tablet Take 40 mg by mouth once daily. blood sugar diagnostic (ONE TOUCH TEST [facility]) (Patient not taking: Reported on 08/17/2022) Fluticasone Propionate 50 mcg/actuation diskus inhaler Inhale 1 Puff as instructed twice daily. (Patient not taking: Reported on 06/11/2023) tiotropium bromide 1.25 mcg/actuation mist Inhale 2 Puffs as instructed once daily. (Patient not taking: Reported on 08/17/2022) blood sugar diagnostic test strip before meals and at bedtime. Use as instructed (Patient not taking: Reported on 08/17/2022) No current facility-administered medications for this visit. ALLERGIES No Known Allergies Social History Tobacco Use Smoking status: Every Day Packs/day: 1 Types: Cigarettes Smokeless tobacco: Never Substance Use Topics Alcohol use: Not Currently Drug use: Not Currently PAST MEDICAL HISTORY Diagnosis Date Arthritis Ascites Chronic back pain COPD (chronic obstructive pulmonary disease) ([facility]) Current every day smoker 1 PPD Diabetes (HCC) Esophageal varices (HCC) s/p band ligation Fibromyalgia GERD (gastroesophageal reflux disease) Hyperlipidemia Peripheral neuropathy Primary biliary cirrhosis (HCC) @[facility]@ No family history on file. PHYSICAL EXAM BP 110/51 Pulse 86 Temp (Src) 98.1 (Temporal) Ht 5' 2 (1.58m) Wt 126 lb 8.7 oz (57.4kg) SpO2 100% BMI 23.14 kg/(m^2). General Appearance: Thin, alert, in no acute distress, well-hydrated, well nourished. Eyes: conjunctiva and sclera normal Abdomen: not distended, soft and depressible, no guarding or rebound, no palpable. No mass, no organomegaly. . Extremities: Clubbed fingers on all digits in both hands. Skin: no jaundice, no spider angiomas, no palmar erythema Neuro:alert, oriented x 3, pleasant and in no acute distress Recent Labs: Hemoglobin (g/dL) Date Value 05/31/2023 8.2 10/23/2020 14.3 Hematocrit (%) Date Value 05/31/2023 25.7 10/23/2020 43.2 WBC (k/uL) Date Value 05/31/2023 5.29 10/23/2020 7.80 Glucose (mg/dL) Date Value 05/30/2023 79 10/23/2020 250 Potassium (mmol/L) Date Value 05/30/2023 4.1 04/04/2021 4.0 10/23/2020 4.2 Sodium (mmol/L) Date Value 05/30/2023 137 10/23/2020 129 Chloride (mmol/L) Date Value 05/30/2023 106 10/23/2020 96 CO2 (mmol/L) Date Value 05/30/2023 24 10/23/2020 25 Creatinine (mg/dL) Date Value 05/30/2023 0.54 10/23/2020 0.56 BUN (mg/dL) Date Value 05/30/2023 9 10/23/2020 9 Anion Gap (mmol/L) Date Value 05/30/2023 7 10/23/2020 8 Calcium (mg/dL) Date Value 10/23/2020 8.7 Calcium, Total (mg/dL) Date Value 05/30/2023 7.3 Albumin (g/dL) Date Value 05/30/2023 2.2 (L) Bilirubin, Total (mg/dL) Date Value 05/30/2023 1.0 Bilirubin, Conjug (mg/dL) Date Value 10/23/2020 0.4 (H) Alkaline Phosphatase (U/L) Date Value 05/30/2023 118 AST (U/L) Date Value 05/30/2023 133 (H) ALT (U/L) Date Value 05/30/2023 56 (H) Protein, Total (g/dL) Date Value 05/30/2023 4.9 (L) MELD 3.0: 12 at 05/31/2023 6:52 AM MELD-Na: 9 at 05/31/2023 6:52 AM Calculated from: Serum Creatinine: 0.54 mg/dL (Using min of 1 mg/dL) at 05/30/2023 4:05 AM Serum Sodium: 137 mmol/L at 05/30/2023 4:05 AM Total Bilirubin: 1.0 mg/dL at 05/30/2023 4:05 AM Serum Albumin: 2.2 g/dL at 05/30/2023 4:05 AM INR(ratio): 1.3 at 05/31/2023 6:52 AM Age at listing (hypothetical): 63 years Sex: Female at 05/31/2023 6:52 AM Assessment IMPRESSION Teresa Lyle is a 62 year old female with PMHx COPD, T2DM c/b peripheral neuropathy, tobacco abuse, cholecystectomy, fibromyalgia, chronic back pain, diagnosed with PBC at the time of cholecystectomy,is here on follow up for PBC cirrhosis c/b GI bleed and esophageal varices. Patient was admitted to [facility] then transferred to [facility] on 05/23 - 05/31/23 for portal-HTN related bleeding 2/2 large EV. She underwent two paracentesis on 05/23 and 05/26 (6.2L and 4.7L, negative for SBP) and underwent TIPSon 05/28/23 with reduction in HVPG from 16 -> 6 mmHg. She was started on Lactulose before switching to miralax in patient, as well as low dose diuretics. Current calculated MELD score of 12 labs from 05/2023. PLAN Cirrhosis: - likely 2/2 PBC with possible [place] - MELD of 12 - S/p TIPS 05/28/23 - Reduction in gradient from 16 mmHg to 6 mmHg - Paracentesis: 05/22 6.2L + 4.7 L - PBC: continue Chris Rectal hemorrhage/varices: - flex sig 04/2022 with rectal varices - does not have follow up with Dr. Chin scheduled. Advised to continue following up locally as sheis not interested in following up at [facility] EV: BRBPR. Continue Coreg. Will obtain records. If no recent EGD, may need EGD given rectal varices. Ascites: continue with current diuretics. <2,000mg Na diet. - History of 2x Paracentesis (05/23 [facility] 6.2L + 05/26 [facility]: 4.7 L) HE: Was previously on Lactulose, converted to Miralax TID with ~3 Bms daily, no corroboration on HE. documented [facility] Miscellaneous Notes* Telephone Encounter - Julia Banda RN - 06/15/2023 2:54 PM EDT Received message from Moon Roper CNP and speciality pharmacy that pt needs assistance withcompleting [employer] PAP application. Outgoing call placed to pt. Pt verified by name and . Pt states they did not complete their portion of the [employer] forms for Xifaxan. Pt's portion to be overnighted to her home address. Office portion completed and faxed to [employer]. Julia Banda RN June 15, 2023 3:22 PM documented in this encounterClermont [facility]04-12-2024 Instructions* Patient Instructions* Moon Roper APRN.COURT - 06/11/2023 5:03 PM EDT Please continue ursodiol 500mg twice daily Please continue Miralax with goal of 3 bowel movements daily Please adhere to <2,000mg sodium diet Please be 6 hours fasting prior to your next ultrasound documented in this encounterClerm[facility]04-12-2024 History of Present illness Narrative* Moon Roper APRN.CNP - 06/11/2023 4:00 PM EDT NAME: Teresa Lyle CLINIC NO: [id number] REFERRING PHYSICIAN: Sallie West PRESENTING COMPLAINT: hospital discharge follow up HPI: Teresa Lyle is a 63 year old female is here on follow up for hospital discharge. Admitted 05/23-05/31/23 for GI bleed with subsequent TIPS placement Per hospital discharge summary: Ms. 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 She was transferred to the [facility] MICU 05/23, where she was HDS on RA. Hepatology evaluated pt in ICU; started uroso, work up for TIPS, ceftriaxone, and octreotide for portal HTN bleed. Patient underwent LVUS, and ECHO for TIPS work up, ECHO with normal RV, normal RVSP, EF ~50% and thus underwent TIPS completed on May 27 with reduction in HVPG 16 mmHg-->6 mmHg. She completed a 7 day course of IV Ceftriaxone 1g. Octreotide was discontinued post-TIPS Post TIPS, patient was groggy and confused. She was empirically started on lactulose and Rifaximin.Patient's mental status continued to improve and she was switched to Miralax. Low dose diuretics started on 05/29 (lasix 20 mg daily and aldactone 50 mg daily) Patient was skilled for home with [facility] and deemed stable for discharge on 05/31/2023 Since admission: Overall, feeling much improved since admission Still on ursodiol 500mg BID ETOH use: Denies Nutrition: Improved since admission, admits increased protein intake EV: Denies. S/p TIPS placement 05/28/23 Ascites: Left lower leg edema. Improved on Lasix 20mg BID, Aldactone 50 mg tablet . States she usually adheres to low Na diet. HE: Much improved since admission. States Miralax 3x daily 2BMs. HCC screening: LVUS 06/03/23 with patent TIPS/ cirrhotic liver morphology. No focal hepatic lesions. Denies jaundice, RUQ pain, nausea, vomiting, constipation, diarrhea, hematochezia, hematemesis, ascites, episodes of confusion. IMAGING: LVUS 06/03/23: IMPRESSION: TIPS appears grossly patent, however technically limited by artifact. Technically limited Doppler assessment of the intrahepatic portal veins with main and anterior right portal veins grossly patent with appropriately directed flow post TIPS as detailed. Short interval sonographic surveillance recommended. Cirrhotic liver morphology. No focal hepatic lesions. Small volume ascites. RESULT: Sonographic Findings: Pancreas: Normal sonographic appearance where visualized. Portions obscured: Head and tail. Liver: Echotexture: Coarse Echogenicity: Heterogeneous Surface contour: Nodular Lesions: None. Biliary: No intrahepatic biliary duct dilation. CBD: 0.2 cm at the hilum. Gallbladder: Cholecystectomy. Right Kidney: No hydronephrosis. Spleen: Craniocaudal length 12.2 cm, normal. There are no splenic lesions. Other: Small volume ascites. HEPATIC VASCULATURE: PORTAL SYSTEM: -Splenic Vein: Patent with antegrade flow (towards the liver). -Main PV: Patent with phasic antegrade flow (towards liver and TIPS). 53 cm/sec -Right anterior PV: Poorly seen, appears patent with retrograde flow where visualized (towards TIPS). -Right posterior PV: Not identified separately from the TIPS. -Left PV: Poorly seen. Splenorenal shunt: Not seen. Recanalized paraumbilical vein: Not seen. TIPS extends from the right hepatic vein to the right portal vein. The TIPS appears grossly patent, however assessment is technically limited by artifact. Stent near portal vein: 126 - 204 cm/s Mid stent: 156 - 188 cm/s Stent near hepatic vein: 107 - 130 cm/s HEPATIC ARTERIES: - Main GIRON: Normal waveform PSV: 177 cm/sec. RI: 0.78 - Right anterior GIRON: Normal waveform - Right posterior GIRON: Normal waveform - Left GIRON: Normal waveform HEPATIC VEINS: -Left: Patent with triphasic waveform. -Middle: Patent with triphasic waveform. -Right: Not identified separately from the TIPS. IVC: Patent with normal, phasic waveform where visualized. REVIEW OF SYSTEMS GENERAL: No unexplained weight changes or fevers. GASTROINTESTINAL: Negative for rectal bleeding or black tarry stools. MUSCULOSKELETAL: Negative for unexplained joint pains, dislocations or fractures. No asterixis. NEUROLOGIC: Negative for unexplained weakness or vertigo. SKIN: Negative for new lesions or rashes. Current Outpatient Medications Medication Sig Dispense Refill ursodiol (CHRIS) 250 mg tablet Take 2 tablets by mouth two times a day with meals. insulin glargine 100 unit/mL (3 mL) Inject 30 Units subcutaneously every morning. Daily at 9 am furosemide (LASIX) 20 mg tablet Take 1 tablet by mouth once daily. spironolactone (ALDACTONE) 50 mg tablet Take 1 tablet by mouth once daily. ergocalciferol 50,000 unit capsule (VITAMIN D2, DRISDOL) Take 1 capsule by mouth one time a week for 7 doses. 7 capsule 0 polyethylene glycol 3350 17 gram packet Take 1 Packet by mouth three times a day. Dissolve dose in 4 - 8 ounces of liquid and take as directed. 100 Packet 1 insulin lispro 100 unit/mL injection Inject 5 Units subcutaneously with meals. Please hold if skipping a meal vitamin A (AQUASOL A) 10,000 unit capsule Take 1 capsule by mouth once daily. 30 capsule 1 rifAXIMin (XIFAXAN) 550 mg tablet Take 1 tablet by mouth two times a day. 60 tablet 11 atorvastatin (LIPITOR) 10 mg tablet blood sugar diagnostic ([facility]) (Patient not taking: Reported on 08/17/2022) gabapentin (NEURONTIN) 300 mg capsule Take 300 mg by mouth three times daily. pantoprazole DR (PROTONIX) 40 mg tablet Take 40 mg by mouth once daily. Fluticasone Propionate 50 mcg/actuation diskus inhaler Inhale 1 Puff as instructed twice daily. (Patient not taking: Reported on 08/17/2022) tiotropium bromide 1.25 mcg/actuation mist Inhale 2 Puffs as instructed once daily. (Patient not taking: Reported on 08/17/2022) blood sugar diagnostic test strip before meals and at bedtime. Use as instructed (Patient not taking: Reported on 08/17/2022) No current facility-administered medications for this visit. ALLERGIES No Known Allergies Social History Tobacco Use Smoking status: Every Day Packs/day: 1 Types: Cigarettes Smokeless tobacco: Never Substance Use Topics Alcohol use: Not Currently Drug use: Not Currently PAST MEDICAL HISTORY Diagnosis Date Arthritis Ascites Chronic back pain COPD (chronic obstructive pulmonary disease) (HCC) Current every day smoker 1 PPD Diabetes (HCC) Esophageal varices (HCC) s/p band ligation Fibromyalgia GERD (gastroesophageal reflux disease) Hyperlipidemia Peripheral neuropathy Primary biliary cirrhosis (HCC) @SHX@ No family history on file. PHYSICAL EXAM There were no vitals taken for this visit. General Appearance: Well appearing, alert, in no acute distress, well-hydrated, well nourished. Eyes: conjunctiva and sclera normal Abdomen: not distended Extremities: no cyanosis. 1+ edema Skin: no jaundice, no spider angiomas, no palmar erythema Neuro:alert, oriented x 3, pleasant and in no acute distress Recent Labs: Hemoglobin (g/dL) Date Value 05/31/2023 8.2 10/23/2020 14.3 Hematocrit (%) Date Value 05/31/2023 25.7 10/23/2020 43.2 WBC (k/uL) Date Value 05/31/2023 5.29 10/23/2020 7.80 Glucose (mg/dL) Date Value 05/30/2023 79 10/23/2020 250 Potassium (mmol/L) Date Value 05/30/2023 4.1 04/04/2021 4.0 10/23/2020 4.2 Sodium (mmol/L) Date Value 05/30/2023 137 10/23/2020 129 Chloride (mmol/L) Date Value 05/30/2023 106 10/23/2020 96 CO2 (mmol/L) Date Value 05/30/2023 24 10/23/2020 25 Creatinine (mg/dL) Date Value 05/30/2023 0.54 10/23/2020 0.56 BUN (mg/dL) Date Value 05/30/2023 9 10/23/2020 9 Anion Gap (mmol/L) Date Value 05/30/2023 7 10/23/2020 8 Calcium (mg/dL) Date Value 10/23/2020 8.7 Calcium, Total (mg/dL) Date Value 05/30/2023 7.3 Albumin (g/dL) Date Value 05/30/2023 2.2 (L) Bilirubin, Total (mg/dL) Date Value 05/30/2023 1.0 Bilirubin, Conjug (mg/dL) Date Value 10/23/2020 0.4 (H) Alkaline Phosphatase (U/L) Date Value 05/30/2023 118 AST (U/L) Date Value 05/30/2023 133 (H) ALT (U/L) Date Value 05/30/2023 56 (H) Protein, Total (g/dL) Date Value 05/30/2023 4.9 (L) MELD 3.0: 12 at 05/31/2023 6:52 AM MELD-Na: 9 at 05/31/2023 6:52 AM Calculated from: Serum Creatinine: 0.54 mg/dL (Using min of 1 mg/dL) at 05/30/2023 4:05 AM Serum Sodium: 137 mmol/L at 05/30/2023 4:05 AM Total Bilirubin: 1.0 mg/dL at 05/30/2023 4:05 AM Serum Albumin: 2.2 g/dL at 05/30/2023 4:05 AM INR(ratio): 1.3 at 05/31/2023 6:52 AM Age at listing (hypothetical): 63 years Sex: Female at 05/31/2023 6:52 AM Assessment IMPRESSION Teresa Lyle is a 63 year old female is here on follow up for hospital discharge. [facility] completed on May 27 with reduction in HVPG 16 mmHg-->6 mmHg. Post TIPS,patient was groggy and confused. She was empirically started on lactulose and Rifaximin. Patient's mental status continued to improve and she was switched to Miralax. Low dose diuretics started on 05/29 (lasix 20 mg daily and aldactone 50 mg daily). She has been doing well since discharge with improvement in both fluid retention and confusion. Her MELD 3.0 score is 12 from 05/31/23. 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 Not immune to HBV. Received 1 Heplisav vaccine dose. Will assess for immunity to HBV. Follow up as scheduled. Please contact sooner if you have questions or problems develop. Moon Roper APRN.CNP June 11, 2023 12:44 PM documented in this [facility]Cl[facility]04[facility] NoteHNO ID: [id number] Author: AMAYA DOMÍNGUEZ RDMS Service: ? Author Type: Technologist Type: Progress Notes Filed: 06/03/2023 15:07 Note Text: Radiology Service Progress Note PATIENT NAME: Teresa Lyle DATE OF SERVICE: June 03, 2023 TIME: 3:07 PM PATIENT IDENTITY VERIFICATION COMPLETED USING TWO (2) IDENTIFIERS: Name and Date of confirmed by patient verbally and Name and Date of confirmed by identification band. FALL SCREENING: Has the patient had 2 falls in the last year or 1 fall with injury or currently using an Ambulatory Assistive Device (Walker, Cane, Wheelchair, Crutches, etc.)? No PATIENT GENDER DATA: Female. status: : No status: N/A PATIENT RELEVANT IMPLANT DATA REVIEWED: Not Applicable PATIENT PRESENTS WITH AN IMPLANTABLE OR ATTACHED BIOLOGY SPECIMEN TECHNICIAN: No RADIOLOGY DEPARTMENT: Ultrasound PERIPHERAL IV DATA: Not applicable SIGNED BY: Amaya Domínguez RDMS June 03, 2023 3:07 [facility]04-04-2024 History of Present illness Narrative* Amaya Domínguez RDMS - 06/03/2023 1:45 PM EDT Radiology Service Progress Note PATIENT NAME: Teresa Lyle DATE OF SERVICE: June 03, 2023 TIME: 3:07 PM PATIENT IDENTITY VERIFICATION COMPLETED USING TWO (2) IDENTIFIERS: Name and Date of confirmedby patient verbally and Name and Date of confirmed by identification band. FALL SCREENING: Has the patient had 2 falls in the last year or 1 fall with injury or currently using an Ambulatory Assistive Device (Walker, Cane, Wheelchair, Crutches, etc.)? No PATIENT GENDER DATA: Female. status: : No status: N/A PATIENT RELEVANT IMPLANT DATA REVIEWED: Not Applicable PATIENT PRESENTS WITH AN IMPLANTABLE OR ATTACHED BIOLOGY SPECIMEN TECHNICIAN: No RADIOLOGY DEPARTMENT: Ultrasound PERIPHERAL IV DATA: Not applicable SIGNED BY: Amaya Domínguez RDMS June 03, 2023 3:07 PM documented in this encounterClerm[facility]03-30-2024 History of Past illness Narrative* Problem Noted Date Diagnosed Date Resolved Date Moderate protein-calorie malnutrition 05/29/2023 05/31/2023 Hypophosphataemia 05/28/2023 05/31/2023 ABLA (acute blood loss anemia) 05/25/2023 05/31/2023 Hypoglycemia 05/25/2023 05/31/2023 Rectal varices 05/24/2023 05/31/2023 documented as of this encounter (statuses as of 06/04/2023) [facility]03-30[facility] History of Past illness Narrative* Problem Noted Date Diagnosed Date Resolved Date Moderate protein-calorie malnutrition 05/29/2023 05/31/2023 Hypophosphataemia 05/28/2023 05/31/2023 ABLA (acute blood loss anemia) 05/25/2023 05/31/2023 Hypoglycemia 05/25/2023 05/31/2023 Rectal varices 05/24/2023 05/31/2023 documented as of this encounter (statuses as of 06/16/2023) [facility]03-30[facility] History of Past illness Narrative* Problem Noted Date Diagnosed Date Resolved Date Moderate protein-calorie malnutrition 05/29/2023 05/31/2023 Hypophosphataemia 05/28/2023 05/31/2023 ABLA (acute blood loss anemia) 05/25/2023 05/31/2023 Hypoglycemia 05/25/2023 05/31/2023 Rectal varices 05/24/2023 05/31/2023 documented as of this encounter (statuses as of 06/17/2023) [facility]03-28-2024 [id number] [facility]01-10-2024 Evaluation note* Encounter Date Diagnosis Assessment Notes Treatment Notes Treatment Clinical Notes Mar, Hypotension, unspecified hypotension type (ICD-10 - I95.9) [employer] Other 12-14-2023 Evaluation note* Encounter Date Diagnosis Assessment Notes Treatment Notes Treatment Clinical Notes Jan, Hyperlipidemia LDL goal <100 (ICD-10 - E78.5) [employer] Other 09-13-2023 Evaluation note* Encounter Date Diagnosis Assessment Notes Treatment Notes Treatment Clinical Notes Oct, Type 1 diabetes mellitus (ICD-10 - E10.9) Learning About Low Blood Sugar (Hypoglycemia) in Diabetes material was printed 1. Uncontrolled, Type 1 diabetes with A1C of 11.6%. 2. Blood glucose above target. Glucose checks noted once daily, pt likely missing meal dosing through the day. Discussed with pt cgm, pt agreeable to sending order. Reviewed with pt she will need to schedule apt with DE when gets device for instruction on use/application. Pt verbalizes understanding. 3. Patient is alert, oriented and receptive to making changes or counseling. Notes: Seen for an assessment of current glucose pattern, changes in treatment plan, with this time spent in counseling and coordination of care related to diabetes, risks, and benefits of treatment, medications, and side effects. TOPICS REVIEWED: 1. Time was spent reviewing: a. Basic concepts of diabetes, progressive beta cell , concepts of basal/bolus/correct sandy insulin requirements. Basal: The goal is fasting blood glucose of 90-130mg. IF fasting blood glucose starts to run under 100mg 3x's/ week, decrease dose by 10%. Bolus: The goal is to hold the blood glucose level steady meal to meal. If pt. is going to have increased physical activity after a meal, decrease the schedule meal dose prior to the activity by 30-50%. If pt. skips a meal do not take this dose. Correction: The goal is to correct an elevated glucose back into the 100-150mg range b. Nutrition: Concepts of healthy diet, encouraged to decrease saturated fat in diet and increase non-starchy vegetables and fruits in diet. BMI: Pt. needs to select one small change to decrease caloric intake or increase physical activity to help decrease weight. c. Correct treatment of hypoglycemia, carry a glucose source at all times on your person, in vehicles, and at bedside. Can use glucose tablets/4, four ounces of pop or juice equal to 15 G of carbohydrate. Blood glucose should be 100 mg/dl or higher when driving. d. ADA glucose goals for age and medical complexity reviewed e. Patient questions addressed 2. Activity/exercise: Encouraged to start any form of physical activity. Start low level and increase slowly to a minimal goal of 150 minutes/week. Limit activity to what is allowed by other issues such as cardiac, pulmonary or orthopedic restrictions. 3. Standards of care: Reminded to have an annual dilated eye exam, A1C every 3 months, urine testing for microalbumin once/year, check feet daily and report any cuts or sores that do not appear to be healing. 4. Meter: Plan to check blood glucose: Please check blood glucose levels 4 times/day. Back to back meals reveal effectiveness of bolus dosing. The blood glucose data is used to determine insulin doses, and confirm symptoms for hypoglycemia and hyperglcyemia. 5. [facility]. Contact office if any issues or concerns with patterns of hypoglycemia, hyperglycemia, or diabetes medication issues. 6. Prescriptions: ALEXX PAP: Fiasp, Tresiba given today; order for dexcom g7 cgm quality control/sensors to dme. 7. Prescriptions will not be filled unless you are compliant with follow up appointments or have a follow up appointment scheduled as ordered by your provider. Refills should be requested at the time of your visit. 8. Pt would greatly benefit from detention personal use of CGM device with ability for high/low alarm feature. Recommend insulin injections >3 times/day with insulin to carb ratio/corrective factor and requires frequent self adjustment of insulin based on carbohydrate intake, physical activity blood glucose monitoring. A CGM would improve ease of access to glucose results and reduce risk of hypoglcyemia/hyperg lycemia. Oct, Insulin long-term use (ICD-10 - Z79.4) Oct, Dietary counseling and surveillance (ICD-10 - Z71.3) see above 13 Oct, 2022 Hyperlipidemia, unspecified hyperlipidemia type (ICD-10 - E78.5) 01/2022 ldl 59 at target, on statin. Oct, Non-adherence to medical treatment (ICD-10 - Z91.19) see above 13 Oct, 2022 BMI 24.0-24.9, adult (ICD-10 - Z68.24) [employer] Other [id number] Procedure [facility]08-15-2023 Miscellaneous Notes* Telephone Encounter - Julia Banda RN - 10/13/2022 12:26 PM EDT Incoming call from patient. Pt verified by name and . Reviewed Moon Roper CNP message in detail. Ph# provided for scheduling. Pt is scheduled with Dr. Cohen for 11/24/22. Plans to keep this for now. Julia Banda RN October 13, 2022 12:27 PM * Telephone Encounter - Julia Banda RN - 10/13/2022 12:00 PM EDT Called pt with no answer. VVM left for pt to return call to office when able. Office ph# provided. Julia Banda RN October 13, 2022 12:01 PM * Telephone Encounter - Julia Banda RN - 10/13/2022 11:55 AM EDT ----- Message from Moon Roper APRN.CIRCULATION ASSISTANT sent at 10/13/2022 7:24 AM EDT ----- Honorio Dumont, This is a patient who formerly saw Dr. Cohen although due to location, follows with local GI. She was sent for possible TIPS procedure given rectal variceal hemorrhage. We reviewed TIPS procedure along with risks/benefits. Patient did not seem amenable to TIPS given risks and coming back to [facility] given her location. However, I reviewed her records and please call patient and advise that given her rectal bleed, I placed an order for a TIPS consultation. If she is open to the consult, please help arrange scheduling. She also mentioned that she would like to be followed locally; however, she stated she did not have follow up with local GI planned. Please ensure that she schedules follows up locally. If not, please help arrange follow up with Dr. Cohen in 3 months. Thanks in advance, Moon documented in this encounterCl[facility]08-10-2023 Evaluation note* Encounter Date Diagnosis Assessment Notes Treatment Notes Treatment Clinical Notes Sep, Primary biliary cirrhosis (ICD-10 - K74.3) Patient reports that she has a small amount of intermittent rectal bleeding Paitent is to increase corig to BID Paitent is due for blood work today Patient is to have a fibroscan to be scheduled today [employer] Other 07-10-2023 Miscellaneous Notes* Telephone Encounter - Julia Banda RN - 09/07/2022 12:56 PM EDT Records received in chart. Julia Banda RN September 07, 2022 12:56 PM * Telephone Encounter - Julia Banda RN - 08/28/2022 3:23 PM EDT Outgoing call placed to pt. Pt verified by name and . Pt confirms location and ph# of Dr. Chin. Pt gives consent to obtain medical records. Dr. Nimesh Chin: Medical records request form faxed. Julia Banda RN August 28, 2022 3:34 PM * Telephone Encounter - Julia Banda RN - 08/28/2022 1:54 PM EDT ----- Message from Moon Roper APRN.CIRCULATION ASSISTANT sent at 08/27/2022 8:32 AM EDT ----- Regarding: Outside Records Hi Julia, This patient came for possible TIPS. I can see a referral was placed, but I cannot see any recent records from her local GI (Dr. Nimesh Chin - [place], [place]). Is there any way we can obtain her flex sig report and recent records? (Last imaging, last EGD). Please let me know if any other information is needed, and please let me know when that informationis obtained. Thanks in advance, Moon documented in this encounterCl[facility]06-19-2023 History of Present illness Narrative* Moon Roper APRN.COURT - 08/17/2022 12:54 PM EDT NAME: Teresa Lyle [facility] NO: [id number] REFERRING PHYSICIAN: Nimesh Chin PRESENTING COMPLAINT: PBC cirrhosis HPI: Teresa Lyle is a 62 year old female with PMHx COPD, T2DM c/b peripheral neuropathy, tobaccoabuse, cholecystectomy, fibromyalgia, chronic back pain, diagnosed with PBC at the time of cholecystectomy,is here on follow up for PBC cirrhosis c/b GI bleed and esophageal varices. Last seen by Dr. Cohen 10/23/20. 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, diagnosed at time of cholecystectomy Course has been c/b fatigue (in setting of fibromyalgia), portal Htn - s/p EV bleeding -> s/p EVL to obliteration Previously referred for OLT eval, albeit w low MELD / MELD na (=7) - and therefore deferred Now referred back in the context of development of volume overload Managed with diuretics, and an no added salt diet, with resolution Most recent labs however still with relatively low MELD (based on bloodwork from [place] from , MELD Na = 7)-likely too early still to begin transplant eval Interested in hernia repair, but recent development of ascites implying portal Htn Long discussion today re issues, complications of liver disease, threshold for OLT eval, process, implications of portal Htn / ascites on surgical outcome. Suggested 1. Portal Htn -cont NSBB -Continues to undergo screening EGD w EVL to obliteration by Dr Gómez 2. Cirrhosis -labs pending from today to recalc MELD -imaging per protocol (will request images from outside hospital but will plan repeat ultrasound today) -PETH 3. PBC -currently on uros + obeticholic acid - but based on most recent labs, still with elevated alkalinephosphatase Will repeat antimitochondrial antibody status, confirm dosing based on weight Consider addition of fibrates -BMD 4. OLT -likely still too early to be considered - will plan to f/u in liver clinic 5. Volume overload -2 g sodium diet (not yet adherent) -Daily weights -Continue current diuretics 6. RHM Discussed issues / overlap of liver disease and metabolic syndrome, risk of progression -strongly recommended to stop smoking, improved DM control (?consult w endocrine given Hgb A1C >8) F/u on phone RTC ~ 4- 5 mo Since last visit: Following locally with Dr. Nimesh Chin, referred here for possible TIPS evaluation due to rectal varices (Flex sig 04/2022: cannot see report, only referral) Cannot see records PBC: On Ocaliva 5 mg daily, Ursodiol 300 mg TID Placed on midodrine 2.5 mg per nephrology about 1 year prior. Still on Coreg 25 mg daily. Reports pruritus States umbilical hernia repair surgery about 2-3 yrs ago ([facility]) Now with leaking of serosanguinous fluid from umbilicus for the last 6 months. Has not followed up with general surgery States nausea 3 times per week. Eating makes it worse. Dramamine helps alleviate nausea. Constipation/diarrhea occasionally BRBPR occasionally, sometimes fills up toilet bowl. Last episode over 1 month prior. She told Dr. Chin who advised likely rectal varices Episodes of confusion - forgets where she is going some times Uncontrolled DMII.On Trusiba for about one year. Metabolic syndrome risk factors: DMII, high HDL States she does not want to follow up here if she does not have to 07/04/2022 lab work: A1c 13.2 AP 231, AST/ALT 53/35 T. Bili 1.0 Cr 0.76 Na 132 INR 1.2 (04/2022) Plt 80 (04/2022) EV: Admits BRBPR s/p felx sig (04/2022) with rectal varices. Last EGD 12/2018 (cannot see records) that I can review. On Coreg 25 mg daily. Ascites: Aldactone 100 mg daily, Lasix 40 mg daily States she follows with nephrology [id number] locally 07/14 d/t to water pills . Reports recently being told to decrease Aldactone back to 50 mg daily HE: States worsening confusion, sometimes forgets where she is HCC screening: Most recent CTAP w IV CON 03/30/21 with no hepatic lesion noted. Denies jaundice, abdominal pain, vomiting, constipation, hematemesis, ascites. IMAGING: CTAP 03/30/21: EXAMINATION: CT SCAN OF THE ABDOMEN AND PELVIS WITH INTRAVENOUS CONTRAST DATE OF EXAM: 03/30/2021 11:23 PM EST HISTORY: GENERALIZED ABDOMINAL PAIN in a 61-year-old female COMPARISON: 10/02/2020. TECHNIQUE: CT examination of the abdomen and pelvis was performed following the intravenous administration of IV contrast. CT dose lowering techniques were used, to include: automated exposure control, adjustment for patient size, and/or use of iterative reconstruction. Contrast: Omnipaque 300 FINDINGS: Lines and Tubes: None Lower Chest: Heart measures within normal with coronary artery calcifications. Free Air: None. Liver: The liver is shrunken with a nodular contour and heterogeneous parenchyma. There is perihepatic free fluid. Gallbladder: Removed Common Bile Duct: Mildly prominent in this patient who is status post cholecystectomy. Pancreas: There is a fluid attenuating region seen in the pancreatic tail that measures approximately 17 mm. The pancreatic duct is unaltered limits of normal. Several fluid attenuating regions which are subcentimeter in size are seen within the pancreatic head. Spleen: Normal Adrenal Glands: Right: Normal Left: Normal Kidneys: Right Kidney: Normal. Right Ureter: Normal. Left Kidney: Normal. Left Ureter: Normal. GI Tract: Stomach: Decompressed Small Bowel: There is fluid filled dilated small bowel which is seen within the umbilical hernia. Abdominal wall defect in the umbilicus measures 3.4 cm x 2.6 cm. There is dilated fluid-filled small bowel with prominent small bowel wall concerning for early vascular compromise within the abdominal wall hernia. There is also a focal loop of small bowel seen within the anterior right hemipelvis that measures 3 cm. Appendix: Normal on axial image 92 and coronal image 39 through 35 Large Bowel: Diverticulosis seen in the sigmoid colon. Decompressed Mesentery/Peritoneum: There is edema and inflammation seen within the small bowel mesentery with prominent vessels within the mesentery. Vasculature: Aorta: Normal. IVC: Normal. Suzie Vein: Normal. Retroperitoneum: Normal Abdominal/Pelvic Wall: Abdominal wall defect in the umbilicus measures 3.4 cm x 2.6 cm. There is dilated fluid-filled small bowel with prominent small bowel wall concerning for early vascular compromise within the abdominal wall hernia. Bladder: Bladder wall is prominent. Reproductive: The uterus is in neutral position. Musculoskeletal: Normal Free Fluid: There is free fluid seen in bilateral colonic gutters. There is also free fluid seen in the pelvis. IMPRESSION: 1. Small bowel obstruction caused by a small bowel and omental fat filled umbilical hernia with dilated small bowel within the hernia and prominence wall enhancement concerning for early vascular compromise and/or strangulation. General surgery consultation is recommended. 2. Bladder wall prominence. Please correlate for cystitis. 3. Normal appendix. 4. Diverticulosis. 5. Pancreatic tail and head cystic lesions with the largest seen in the tail. 6. Status post cholecystectomy. 7. Cirrhotic liver. Critical results were called by Dr. Sonal Jj MD to Dr. Keene At 03/31/2021 12:12 AM EST. Electronically authenticated by: SONAL JJ Date: 2021-03-31 00:39 REVIEW OF SYSTEMS GENERAL: No unexplained weight changes or fevers. GASTROINTESTINAL: BRBPR occasionally. GENITOURINARY: Negative for dysuria or urinary incontinence. MUSCULOSKELETAL: Negative for unexplained joint pains, dislocations or fractures. NEUROLOGIC: Negative for unexplained weakness or vertigo. SKIN: Negative for new lesions or rashes. Pruritus. Current Outpatient Medications Medication Sig Dispense Refill atorvastatin (LIPITOR) 10 mg tablet furosemide (LASIX) 40 mg tablet furosemide 40 mg tablet TAKE 1 TABLET BY MOUTH ONCE DAILY spironolactone (ALDACTONE) 50 mg tablet Take 150 mg by mouth. midodrine (PROAMATINE) 2.5 mg tablet Take by mouth q 8 HR. insulin glargine U-300 conc (TOUJEO SOLOSTAR U-300 INSULIN) 300 unit/mL (1.5 mL) Inject 100 Units subcutaneously daily at bedtime. insulin glulisine U-100 (APIDRA SOLOSTAR U-100 INSULIN) 100 unit/mL sub-Q pen Inject 100 Units subcutaneously three times daily with meals. gabapentin (NEURONTIN) 300 mg capsule Take 300 mg by mouth three times daily. pantoprazole DR (PROTONIX) 40 mg tablet Take 40 mg by mouth once daily. carvedilol (COREG) 25 mg tablet Take 25 mg by mouth twice daily with meals. Vitamin A 8,000 unit capsule Take 1 capsule by mouth once daily. 30 capsule 0 insulin regular human (NOVOLIN R REGULAR U-100 INSULN) 100 unit/mL injection Inject subcutaneously three times daily before meals. baclofen (LIORESAL) 10 mg tablet Take 10 mg by mouth three times daily. blood sugar diagnostic ([facility]) amitriptyline (ELAVIL) 10 mg tablet Take 10 mg by mouth daily at bedtime. metFORMIN (GLUCOPHAGE) 500 mg tablet Take 500 mg by mouth daily with breakfast. insulin lispro (HUMALOG PEN SUBCUTANEOUS) Inject subcutaneously. Fluticasone Propionate 50 mcg/actuation diskus inhaler Inhale 1 Puff as instructed twice daily. tiotropium bromide (SPIRIVA RESPIMAT) 1.25 mcg/actuation mist Inhale 2 Puffs as instructed once daily. MV-Min-Vit [id number] (AIR PROTECTOR) 1,000-50 mg tbef Take by mouth. ursodiol (ACTIGALL) 300 mg capsule Take 300 mg by mouth twice daily. blood sugar diagnostic (FREESTYLE INSULINX) test strip before meals and at bedtime. Use as instructed No current facility-administered medications for this visit. ALLERGIES No Known Allergies Social History Tobacco Use Smoking status: Every Day Smokeless tobacco: Never PAST MEDICAL HISTORY Diagnosis Date Arthritis Ascites Chronic back pain COPD (chronic obstructive pulmonary disease) (HCC) Current every day smoker 1 PPD Diabetes (HCC) Esophageal varices (HCC) s/p band ligation Fibromyalgia GERD (gastroesophageal reflux disease) Hyperlipidemia Peripheral neuropathy Primary biliary cirrhosis (HCC) @SHX@ No family history on file. PHYSICAL EXAM There were no vitals taken for this visit. General Appearance: Well appearing, alert, in no acute distress, well-hydrated, well nourished. Eyes: conjunctiva and sclera normal Abdomen: not distended, soft and depressible, no guarding or rebound, no palpable. No mass, no organomegaly. Serous fluid noted surrounding umbilicus. Extremities: no cyanosis or edema Skin: no jaundice, no spider angiomas, no palmar erythema Neuro:alert, oriented x 3, pleasant and in no acute distress Recent Labs: Hemoglobin (g/dL) Date Value 10/23/2020 14.3 Hematocrit (%) Date Value 10/23/2020 43.2 WBC (k/uL) Date Value 10/23/2020 7.80 Glucose (mg/dL) Date Value 10/23/2020 250 Potassium (mmol/L) Date Value 04/04/2021 4.0 10/23/2020 4.2 Sodium (mmol/L) Date Value 10/23/2020 129 Chloride (mmol/L) Date Value 10/23/2020 96 CO2 (mmol/L) Date Value 10/23/2020 25 Creatinine (mg/dL) Date Value 10/23/2020 0.56 BUN (mg/dL) Date Value 10/23/2020 9 Anion Gap (mmol/L) Date Value 10/23/2020 8 Calcium (mg/dL) Date Value 10/23/2020 8.7 Albumin (g/dL) Date Value 10/23/2020 2.9 (L) Bilirubin, Total (mg/dL) Date Value 10/23/2020 0.7 Bilirubin, Conjug (mg/dL) Date Value 10/23/2020 0.4 (H) Alkaline Phosphatase (U/L) Date Value 10/23/2020 200 (H) AST (U/L) Date Value 10/23/2020 35 ALT (U/L) Date Value 10/23/2020 15 Protein, Total (g/dL) Date Value 10/23/2020 7.3 Computed MELD-Na unavailable. Necessary lab results were not found in the last year. Computed MELD unavailable. Necessary lab results were not found in the last year. Assessment IMPRESSION Teresa Lyle is a 62 year old female with PMHx COPD, T2DM c/b peripheral neuropathy, tobacco abuse, cholecystectomy, fibromyalgia, chronic back pain, diagnosed with PBC at the time of cholecystectomy,is here on follow up for PBC cirrhosis c/b GI bleed and esophageal varices. She also Since last visit with Dr. Cohen 10/23/20, she has been managed locally by Dr. Nimesh Chin who has referred [facility]to [facility] for possible TIPS procedure d/t rectal hemorrhage s/p flex sig 04/2022. Discussed TIPS procedure with patient. She is reluctant to move forward at this time; however, will request records to besent over for further evaluation before referring for TIPS evaluation. Patient does state worsening confusion although no asterixis or overt signs of HE were noted on exam today. Will obtain records to determine if she is need of HCC screening/EGD. Current calculated MELD score of 8 labs from 06/2022 (INR 04/2022), too well for transplant evaluation at this time. PLAN Cirrhosis: - likely r/t PBC with possible [place] - MELD of 8, too well for transplant - PBC: continue Chris and Ocaliva - will obtain new MELD labs today Rectal hemorrhage/varices: - flex sig 04/2022 with rectal varices - TIPS procedure and risks/benefits discussed, she is not interested in TIPS procedure at this time - Will try to obtain records including flex sig report - does not have follow up with Dr. Chin scheduled. Advised to continue following up locally as sheis not interested in following up at [facility] EV: BRBPR. Continue Coreg. Will obtain records. If no recent EGD, may need EGD given rectal varices. Ascites: continue with current diuretics. <2,000mg Na diet. HE: will continue to monitor for now. Advised discussion of trialing lactulose with local GI; however, would like to obtain records beforehand. HCC screening: to obtain recent records before placing imaging. Umbilical leaking: - s/p umbilical hernia repair surgery - advised to discuss with general surgery Follow up in [address] Cohen. Please contact sooner if you have questions or problems develop. Moon Roper APRN.CNP August 17, 2022 12:57 PM [facility]* Encounter Date Diagnosis Assessment Notes Treatment Notes Treatment Clinical Notes Jul, Type 1 diabetes mellitus (ICD-10 - E10.9) Learning About Low Blood Sugar (Hypoglycemia) in Diabetes material was printed 1. Uncontrolled, Type 1 diabetes with A1C of 13.2%. 2. Blood glucose above target. Recommend increasing tresiba to 38 units qam. Modify fiasp to 8-10-15-18 units ac according to meal size plus corrective cecy 1:20 ac, (hs if >200 half dose). Recommend testing glucose ac, hs and being consistent with taking meal/corrective insulin as above, admits to not taking enough insulin for meals. Pt verbalizes understanding. Declines referral to [place]. Note: pt reports can't afford cgm. 3. Patient is alert, oriented and receptive to making changes or counseling. Notes: Seen for an assessment of current glucose pattern, changes in treatment plan, with this time spent in counseling and coordination of care related to diabetes, risks, and benefits of treatment, medications, and side effects. TOPICS REVIEWED: 1. Time was spent reviewing: a. Basic concepts of diabetes, progressive beta cell , concepts of basal/bolus/correct sandy insulin requirements. Basal: The goal is fasting blood glucose of 90-130mg. IF fasting blood glucose starts to run under 100mg 3x's/ week, decrease dose by 10%. Bolus: The goal is to hold the blood glucose level steady meal to meal. If pt. is going to have increased physical activity after a meal, decrease the schedule meal dose prior to the activity by 30-50%. If pt. skips a meal do not take this dose. Correction: The goal is to correct an elevated glucose back into the 100-150mg range b. Nutrition: Concepts of healthy diet, encouraged to decrease saturated fat in diet and increase non-starchy vegetables and fruits in diet. BMI: Pt. needs to select one small change to decrease caloric intake or increase physical activity to help decrease weight. c. Correct treatment of hypoglycemia, carry a glucose source at all times on your person, in vehicles, and at bedside. Can use glucose tablets/4, four ounces of pop or juice equal to 15 G of carbohydrate. Blood glucose should be 100 mg/dl or higher when driving. d. ADA glucose goals for age and medical complexity reviewed e. Patient questions addressed 2. Activity/exercise: Encouraged to start any form of physical activity. Start low level and increase slowly to a minimal goal of 150 minutes/week. Limit activity to what is allowed by other issues such as cardiac, pulmonary or orthopedic restrictions. 3. Standards of care: Reminded to have an annual dilated eye exam, A1C every 3 months, urine testing for microalbumin once/year, check feet daily and report any cuts or sores that do not appear to be healing. 4. Meter: Plan to check blood glucose: Please check blood glucose levels 4 times/day. Back to back meals reveal effectiveness of bolus dosing. The blood glucose data is used to determine insulin doses, and confirm symptoms for hypoglycemia and hyperglcyemia. 5. [facility] Contact office if any issues or concerns with patterns of hypoglycemia, hyperglycemia, or diabetes medication issues. 6. Prescriptions: [employer] PAP: Fiasp, Tresiba/pen needles picked up today 7. Prescriptions will not be filled unless you are compliant with follow up appointments or have a follow up appointment scheduled as ordered by your provider. Refills should be requested at the time of your visit. 8. Recommend referral to [place], pt declines. Jul, Insulin long-term use (ICD-10 - Z79.4) Jul, Dietary counseling and surveillance (ICD-10 - Z71.3) see above Jul, Hyperlipidemia, unspecified hyperlipidemia type (ICD-10 - E78.5) 01/2022 ldl 59 at target, on statin. Jul, Non-adherence to medical treatment (ICD-10 - Z91.19) see above Jul, BMI 26.0-26.9,adult (ICD-10 - Z68.26) see above [employer] Other 05-04-2023 Evaluation note* Encounter Date Diagnosis Assessment Notes Treatment Notes Treatment Clinical Notes June, Primary biliary cirrhosis (ICD-10 - K74.3) [employer] Other 05-03-2023 [facility] Encounter Date Diagnosis Assessment Notes Treatment Notes Treatment Clinical Notes Apr, Primary biliary cirrhosis (ICD-10 - K74.3) [employer] Other 02-20-2023 Evaluation note* Encounter Date Diagnosis Assessment Notes Treatment Notes Treatment Clinical Notes Apr, Type 1 diabetes mellitus (ICD-10 - E10.9) Learning About Low Blood Sugar (Hypoglycemia) in Diabetes material was printed 1. Uncontrolled, Type 1 diabetes with A1C of 11.9%. 2. Blood glucose above target. Readings often above target from missed meal dose or underestimation of insulin for carbs. Pt reports only taking 8-10 units of fiasp with meals. Reviewed with pt meal dosing 6-9-12-15 units ac according to meal size plus corrective scale ac. Pt has not been consistent with testing glucose ac, hs- which contributes to higher glucose pattern when not using corrective scale. Recommend she increase tresiba from 34 to 36 units am. Pt verbalizes understanding. Note: pt reported could not afford carmelita cgm. 3. Patient is alert, oriented and receptive to making changes or counseling. Notes: Seen for an assessment of current glucose pattern, changes in treatment plan, with this time spent in counseling and coordination of care related to diabetes, risks, and benefits of treatment, medications, and side effects. TOPICS REVIEWED: 1. Time was spent reviewing: a. Basic concepts of diabetes, progressive beta cell , concepts of basal/bolus/correcti ve insulin requirements. Basal: The goal is fasting blood glucose of 90-130mg. IF fasting blood glucose starts to run under 100mg 3x's/ week, decrease dose by 10%. Bolus: The goal is to hold the blood glucose level steady meal to meal. If pt. is going to have increased physical activity after a meal, decrease the schedule meal dose prior to the activity by 30-50%. If pt. skips a meal do not take this dose. Correction: The goal is to correct an elevated glucose back into the 100-150mg range b. Nutrition: Concepts of healthy diet, encouraged to decrease saturated fat in diet and increase non-starchy vegetables and fruits in diet. BMI: Pt. needs to select one small change to decrease caloric intake or increase physical activity to help decrease weight. c. Correct treatment of hypoglycemia, carry a glucose source at all times on your person, in vehicles, and at bedside. Can use glucose tablets/4, four ounces of pop or juice equal to 15 G of carbohydrate. Blood glucose should be 100 mg/dl or higher when driving. d. ADA glucose goals for age and medical complexity reviewed e. Patient questions addressed 2. Activity/exercise: Encouraged to start any form of physical activity. Start low level and increase slowly to a minimal goal of 150 minutes/week. Limit activity to what is allowed by other issues such as cardiac, pulmonary or orthopedic restrictions. 3. Standards of care: Reminded to have an annual dilated eye exam, A1C every 3 months, urine testing for microalbumin once/year, check feet daily and report any cuts or sores that do not appear to be healing. 4. Meter: Plan to check blood glucose: Please check blood glucose levels 4 times/day. Back to back meals reveal effectiveness of bolus dosing. The blood glucose data is used to determine insulin doses, and confirm symptoms for hypoglycemia and hyperglcyemia. 5. [facility]. Contact office if any issues or concerns with patterns of hypoglycemia, hyperglycemia, or diabetes medication issues. 6. Prescriptions: Gets [employer] for tresiba/fiasp. Refill request for Atorvastatin sent to [facility] in [place] 04/20/22 7. Prescriptions will not be filled unless you are compliant with follow up appointments or have a follow up appointment scheduled as ordered by your provider. Refills should be requested at the time of your visit. Apr, Insulin long-term use (ICD-10 - Z79.4) Apr, Dietary counseling and surveillance (ICD-10 - Z71.3) see above Apr, Hyperlipidemia, unspecified hyperlipidemia type (ICD-10 - E78.5) 01/2022 ldl 59 at target, on statin. Apr, Non-adherence to medical treatment (ICD-10 - Z91.19) see above Apr, BMI 25.0-25.9,adult (ICD-10 - Z68.25) [employer] Other 01-18-2023 Evaluation note* Encounter Date Diagnosis Assessment Notes Treatment Notes Treatment Clinical Notes Mar, Hemorrhoids (ICD-10 - K64.9) Flex sig +/- HET Mar, Rectal bleeding (ICD-10 - K62.5) Mar, Primary biliary cirrhosis (ICD-10 - K74.3) Labs as indicated above [employer] Other 01-10-2023 Evaluation note* Encounter Date Diagnosis Assessment Notes Treatment Notes Treatment Clinical Notes Mar, Hyponatremia (ICD-10 - E87.1) Hyponatremia is likely from liver cirrhosis with depleted intravascular volume from third spacing from hypoalbuminemia. Pt has been on high spironolactone which also causes sodium renal loss.Low BP also causes ADH upgrade. Serum sodium has been between 126-1 29 depending on the serum glucose level. Patient asymptomatic. Please avoid thiazide diuretics Mar, Localized edema (ICD-10 - R60.0) well controlled. Will decrease aldactone to 50 mg PO BID for low BP Mar, Cirrhosis of liver without ascites, unspecified hepatic cirrhosis type (ICD-10 - K74.60) From primary biliary cirrhosis. Patient follows with GI Mar, Hypotension, unspecified hypotension type (ICD-10 - I95.9) Likely from diuretics and and liver cirrhosis. I will reduce aldactone dose and increase midodrine to 5 mg PO TID [employer] Other 11-07-2022 Evaluation note* Encounter Date Diagnosis Assessment Notes Treatment Notes Treatment Clinical Notes Dec, Type 1 diabetes mellitus (ICD-10 - E10.9) Learning About Low Blood Sugar (Hypoglycemia) in Diabetes material was printed 1. Uncontrolled, Type 1 diabetes with A1C of 11%. 2. Blood glucose above target. Pt had increased tresiba to 40 units, recommend based on her weight she reduce to 34 units once daily. Readings often above target from missed meal dose or underestimation of insulin for carbs. Modified her meal dosing- see above. Note: pt could not afford carmelita cgm. 3. Patient is alert, oriented and receptive to making changes or counseling. Notes: Seen for an assessment of current glucose pattern, changes in treatment plan, with this time spent in counseling and coordination of care related to diabetes, risks, and benefits of treatment, medications, and side effects. TOPICS REVIEWED: 1. Time was spent reviewing: a. Basic concepts of diabetes, progressive beta cell , concepts of basal/bolus/correct sandy insulin requirements. Basal: The goal is fasting blood glucose of 90-130mg. IF fasting blood glucose starts to run under 100mg 3x's/ week, decrease dose by 10%. Bolus: The goal is to hold the blood glucose level steady meal to meal. If pt. is going to have increased physical activity after a meal, decrease the schedule meal dose prior to the activity by 30-50%. If pt. skips a meal do not take this dose. Correction: The goal is to correct an elevated glucose back into the 100-150mg range b. Nutrition: Concepts of healthy diet, encouraged to decrease saturated fat in diet and increase non-starchy vegetables and fruits in diet. BMI: Pt. needs to select one small change to decrease caloric intake or increase physical activity to help decrease weight. c. Correct treatment of hypoglycemia, carry a glucose source at all times on your person, in vehicles, and at bedside. Can use glucose tablets/4, four ounces of pop or juice equal to 15 G of carbohydrate. Blood glucose should be 100 mg/dl or higher when driving. d. ADA glucose goals for age and medical complexity reviewed e. Patient questions addressed 2. Activity/exercise: Encouraged to start any form of physical activity. Start low level and increase slowly to a minimal goal of 150 minutes/week. Limit activity to what is allowed by other issues such as cardiac, pulmonary or orthopedic restrictions. 3. Standards of care: Reminded to have an annual dilated eye exam, A1C every 3 months, urine testing for microalbumin once/year, check feet daily and report any cuts or sores that do not appear to be healing. 4. Meter: Plan to check blood glucose: Please check blood glucose levels 4 times/day. Back to back meals reveal effectiveness of bolus dosing. The blood glucose data is used to determine insulin doses, and confirm symptoms for hypoglycemia and hyperglcyemia. 5. [facility]. Contact office if any issues or concerns with patterns of hypoglycemia, hyperglycemia, or diabetes medication issues. 6. Prescriptions: Gets [employer] pap for tresiba/fiasp 7. Prescriptions will not be filled unless you are compliant with follow up appointments or have a follow up appointment scheduled as ordered by your provider. Refills should be requested at the time of your visit. Dec, Insulin long-term use (ICD-10 - Z79.4) Dec, Dietary counseling and surveillance (ICD-10 - Z71.3) see above Dec, Hyperlipidemia, unspecified hyperlipidemia type (ICD-10 - E78.5) 01/2021 ldl 38.4, on statin. Dec, Non-adherence to medical treatment (ICD-10 - Z91.19) Dec, BMI 26.0-26.9,adult (ICD-10 - Z68.26) [employer] Other 08-16-2022 Evaluation note* Encounter Date Diagnosis Assessment Notes Treatment Notes Treatment Clinical Notes Sep, Localized edema (ICD-10 - R60.0) [employer] Other 08-15-2022 Evaluation note* Encounter Date Diagnosis Assessment Notes Treatment Notes Treatment Clinical Notes Sep, Localized edema (ICD-10 - R60.0) [employer] Other 07-26-2022 Evaluation note* Encounter Date Diagnosis Assessment Notes Treatment Notes Treatment Clinical Notes Aug, Type 1 diabetes mellitus (ICD-10 - E10.9) Learning About Low Blood Sugar (Hypoglycemia) in Diabetes material was printed 1. Uncontrolled, Type 1 diabetes with A1C of 9.3%. 2. Blood glucose improved, remain above target. Several incidence of hypglycemia recommend she reduce tresiba from 40 to 38 units. Readings often above target from missed meal dose or underestimation of insulin for carbs. Will also modify corrective scale, see above. Note: pt could not afford carmelita cgm. 3. Patient is alert, oriented and receptive to making changes or counseling. Notes: Seen for an assessment of current glucose pattern, changes in treatment plan, with this time spent in counseling and coordination of care related to diabetes, risks, and benefits of treatment, medications, and side effects. TOPICS REVIEWED: 1. Time was spent reviewing: a. Basic concepts of diabetes, progressive beta cell , concepts of basal/bolus/correcti ve insulin requirements. Basal: The goal is fasting blood glucose of 90-130mg. IF fasting blood glucose starts to run under 100mg 3x's/ week, decrease dose by 10%. Bolus: The goal is to hold the blood glucose level steady meal to meal. If pt. is going to have increased physical activity after a meal, decrease the schedule meal dose prior to the activity by 30-50%. If pt. skips a meal do not take this dose. Correction: The goal is to correct an elevated glucose back into the 100-150mg range b. Nutrition: Concepts of healthy diet, encouraged to decrease saturated fat in diet and increase non-starchy vegetables and fruits in diet. BMI: Pt. needs to select one small change to decrease caloric intake or increase physical activity to help decrease weight. c. Correct treatment of hypoglycemia, carry a glucose source at all times on your person, in vehicles, and at bedside. Can use glucose tablets/4, four ounces of pop or juice equal to 15 G of carbohydrate. Blood glucose should be 100 mg/dl or higher when driving. d. ADA glucose goals for age and medical complexity reviewed e. Patient questions addressed 2. Activity/exercise: Encouraged to start any form of physical activity. Start low level and increase slowly to a minimal goal of 150 minutes/week. Limit activity to what is allowed by other issues such as cardiac, pulmonary or orthopedic restrictions. 3. Standards of care: Reminded to have an annual dilated eye exam, A1C every 3 months, urine testing for microalbumin once/year, check feet daily and report any cuts or sores that do not appear to be healing. 4. Meter: Plan to check blood glucose: Please check blood glucose levels 4 times/day. Back to back meals reveal effectiveness of bolus dosing. The blood glucose data is used to determine insulin doses, and confirm symptoms for hypoglycemia and hyperglcyemia. 5. [facility] 3 [facility]. Contact office if any issues or concerns with patterns of hypoglycemia, hyperglycemia, or diabetes medication issues. 6. Prescriptions: Gets [employer] pap for tresiba/fiasp 7. [facility]pt [facility] for [facility]21 Aug, Insulin long-term use (ICD-10 - Z79.4) Aug, Dietary counseling and surveillance (ICD-10 - Z71.3) see above Aug, Hyperlipidemia, unspecified hyperlipidemia type (ICD-10 - E78.5) 01/2021 ldl 38.4, on statin. Aug, BMI 25.0-25.9,adult (ICD-10 - Z68.25) Aug, Non-adherence to medical treatment (ICD-10 - Z91.19) [employer] Other 06-14-2022 Evaluation note* Encounter Date Diagnosis Assessment Notes Treatment Notes Treatment Clinical Notes Jul, Primary biliary cirrhosis (ICD-10 - K74.3) CONTINUE URSODIOL 300 MG QID CONTINUE OCALIVA 5 MG DAILY Jul, Secondary esophageal varices without bleeding (ICD-10 - I85.10) [employer] Other 05-10-2022 Evaluation note* Encounter Date Diagnosis Assessment Notes Treatment Notes Treatment Clinical Notes June, Hyponatremia (ICD-10 - E87.1) Hyponatremia is likely from liver cirrhosis with depleted intravascular volume from third spacing from hypoalbuminemia. Also patient had dose of spironolactone which also causes sodium renal loss. Serum sodium has been between 126-1 29 depending on the serum glucose level. Patient asymptomatic. I will continue same dose of Lasix and spironolactone. Advised the patient to follow low-sodium diet with fluid restriction Please avoid thiazide diuretics June, Localized edema (ICD-10 - R60.0) June, Cirrhosis of liver without ascites, unspecified hepatic cirrhosis type (ICD-10 - K74.60) From primary biliary cirrhosis. Patient follows with GI June, Hypotension, unspecified hypotension type (ICD-10 - I95.9) Likely from diuretics and and liver cirrhosis. I will start the patient on midodrine 2.5 mg 3 times daily June, Other Patient only on Coreg and diuretics. Low blood pressure noted. I will start midodrine 2.5 mg 3 times daily. [employer] Other 03-09-2022 Evaluation note* Encounter Date Diagnosis Assessment Notes Treatment Notes Treatment Clinical Notes Apr, Primary biliary cirrhosis (ICD-10 - K74.3) Apr, Secondary esophageal varices without bleeding (ICD-10 - I85.10) [employer] Other 03-07-2022 Evaluation note* Encounter Date Diagnosis Assessment Notes Treatment Notes Treatment Clinical Notes Apr, Primary biliary cirrhosis (ICD-10 - K74.3) [employer] Other 02-09-2022 Evaluation note* Encounter Date Diagnosis Assessment Notes Treatment Notes Treatment Clinical Notes Apr, Primary biliary cirrhosis (ICD-10 - K74.3) [employer] Other 02-08-2022 Evaluation note* Encounter Date Diagnosis Assessment Notes Treatment Notes Treatment Clinical Notes Apr, Primary biliary cirrhosis (ICD-10 - K74.3) CONTINUE ALL MEDICATIONS WITHOUT CHANGE F/U HERE 3 WEEKS Apr, Other specified postprocedural states (ICD-10 - Z98.890) Apr, Personal history of other diseases of the digestive system (ICD-10 - Z87.19) Apr, Other PT ENCOURAGED T O MAKE FOLLOW UP APPT WITH SURGEON REGARDING DRAINAGE TUBES BEING REMOVED CONTINUE ALL MEDICATIONS WITHOUT CHANGE [employer] Other 01-18-2022 Evaluation note* Encounter Date Diagnosis Assessment Notes Treatment Notes Treatment Clinical Notes Mar, Primary biliary cirrhosis (ICD-10 - K74.3) [employer] Other 12-14-2021 Evaluation note* Encounter Date Diagnosis Assessment Notes Treatment Notes Treatment Clinical Notes Jan, Type 1 diabetes mellitus (ICD-10 - E10.9) Learning About Low Blood Sugar (Hypoglycemia) in Diabetes material was printed 1. Uncontrolled, Type 1 diabetes with A1C of 8.8%. 2. Blood glucose above target with a great deal of variability. According to [employer] cgm download 01/29/2021- 1: Avg glucose 213. >250-32%, >180-30%, 70-180-36%, <70-1%, <54-1%. CV 34.3%. Reviewed download with pt, readings above target either from missed meal dose or underestimation of carbs for meal. Reviewed with pt for higher carb meals will need to use large meal dosing. Reviewed importance of prebolus, will switch from apidra to fiasp ability to bolus 5 minutes ac and from toujeo to tresiba- pt filled out rx assist for alexx. Discussed with pt consideration of SAID pump. Discussed insulin pump with pt, she declines. 3. Patient is alert, oriented and receptive to making changes or counseling. Notes: Seen for an assessment of current glucose pattern, changes in treatment plan, with this time spent in counseling and coordination of care related to diabetes, risks, and benefits of treatment, medications, and side effects. TOPICS REVIEWED: 1. Time was spent reviewing: a. Basic concepts of diabetes, progressive beta cell , concepts of basal/bolus/correct sandy insulin requirements. Basal: The goal is fasting blood glucose of 90-130mg. IF fasting blood glucose starts to run under 100mg 3x's/ week, decrease dose by 10%. Bolus: The goal is to hold the blood glucose level steady meal to meal. If pt. is going to have increased physical activity after a meal, decrease the schedule meal dose prior to the activity by 30-50%. If pt. skips a meal do not take this dose. Correction: The goal is to correct an elevated glucose back into the 100-150mg range b. Nutrition: Concepts of healthy diet, encouraged to decrease saturated fat in diet and increase non-starchy vegetables and fruits in diet. BMI: Pt. needs to select one small change to decrease caloric intake or increase physical activity to help decrease weight. c. Correct treatment of hypoglycemia, carry a glucose source at all times on your person, in vehicles, and at bedside. Can use glucose tablets/4, four ounces of pop or juice equal to 15 G of carbohydrate. Blood glucose should be 100 mg/dl or higher when driving. d. ADA glucose goals for age and medical complexity reviewed e. Patient questions addressed 2. Activity/exercise: Encouraged to start any form of physical activity. Start low level and increase slowly to a minimal goal of 150 minutes/week. Limit activity to what is allowed by other issues such as cardiac, pulmonary or orthopedic restrictions. 3. Standards of care: Reminded to have an annual dilated eye exam, A1C every 3 months, urine testing for microalbumin once/year, check feet daily and report any cuts or sores that do not appear to be healing. 4. Meter: Plan to check blood glucose: Please check blood glucose levels 4 times/day. Back to back meals reveal effectiveness of bolus dosing. The blood glucose data is used to determine insulin doses, and confirm symptoms for hypoglycemia and hyperglcyemia. 5. [facility]. Contact office if any issues or concerns with patterns of hypoglycemia, hyperglycemia, or diabetes medication issues. 6. Prescriptions: applied for pap for tresiba/fiasp through a[facility] will be sent in after 03/01/20. She reports has one toujeo pen left, she was given sample toujeo max x2 pens today- she reports she is ok on the apidra. 14 Jan, 2021 Insulin long-term use (ICD-10 - Z79.4) Jan, Dietary counseling and surveillance (ICD-10 - Z71.3) see above 14 Jan, 2021 Hyperlipidemia, unspecified hyperlipidemia type (ICD-10 - E78.5) 06/2019 ldl 43, on statin. 14 Jan, 2021 BMI 26.0-26.9,adult (ICD-10 - Z68.26) see above [employer] Other 08-21-2021 NoteMR#: [id number] I [facility] Pt. Name: Teresa Lyle Admitted: 10/15/2020 Discharged: 10/18/2020 Date of : 1960 Physician: Bri Best MD DISCHARGE SUMMARY PRINCIPAL DIAGNOSIS: Ventral hernia without obstruction. SECONDARY DIAGNOSES: Decompensated liver cirrhosis with ascites, chronic obstructive pulmonary disease, and diabetes. PROCEDURES AND TREATMENT: Include the following; 60-year-old female with past medical history of diabetes, COPD, and liver cirrhosis, presented to the emergency department for evaluation of abdominal hernia, which has been becoming larger. The patient reported that her hernia had not been reducible for the past [address] scan was obtained at an outside hospital that showed partial obstruction due to hernia. She was directed to come to [facility] for further evaluation. In the emergency department, hernia was reducible. New CT scan was obtained that was negative for acute findings, but did reveal excessive ascites and evidence for cirrhotic liver as well as large ventral hernia containing ascites. She was admitted for observation and for GI consultation. GI team saw and evaluated the patient. They ordered a paracentesis that was completed with 1.4 L of fluid removed. There was no evidence of SBP. GI team also started the patient on salt restriction to 2 g per day as well as 20 mg of Lasix to be added to her current home medication, which she tolerated without any effect on blood pressure. Today, decision was made that the patient could safely be discharged home with followup with her motor vehicle dispatcher at [facility]. The patient was instructed that after ascites improved, she could follow up with the surgical team to discuss hernia repair. The patient stated that she already had followup appointment scheduled with motor vehicle dispatcher at [facility]. All discharge instructions were explained to the patient. She verbalized understanding and was agreeable with the plan. She was then discharged to home in stable condition. The patient was seen and examined on day of discharge and this discharge summary is in conjunction with any daily progress note from the day of discharge. Electronically Signed by: Bri Best MD 11/13/2020 11:03 A Bri Best MD I personally saw this patient on the day of the encounter, performed the carbone portion(s) of the service and participated in the management and confirm the resident's documentation. Please note there may be an additional personal documentation from me. Date Dict: 10/18/2020/03:01 Myra/Natalie Patterson CNP Date Trans: 10/19/2020 05:55 A/zee [id number] cc: Rain Hebert M.D. [address] [place], [place] [address]Discharge summary Author Sylvia Centeno [facility] Note Date/Time July 08, 2024 4:13p [facility] ENTER [address] [place] [address] Discharge Summary Signed Patient: Teresa Lyle MR#: [id number] : 1960 Acct:[id number] Age/Sex: 64 / F Adm Date: 5 Loc: 4N Room: 4F2399-[address]: Forest Quiroz MD Copies to: Chapis Lewis [facility] ALLY Haddad MD~ Providers Date of Admission: 06/30/24 Date of Discharge: 07/08/24 Discharging Provider: Forest Quiroz Additional Discharging Provider: Forest Quiroz Primary Care Provider: Chapis Lewis Consults: 06/30/24 22:00 Consult to Orthopedic Surgery Routine Comment: Consulting Provider: [facility] Reason For Exam: right hip fracture Has Provider Been Notified: Yes Date of Notification: 07/01/24 Time of Notification: 08:32 Extended Comment: on schedule for OR 07/02/24 09:20 Consult to Occupational Therapy Routine Comment: Physician Instructions: Consult to OT for:: Evaluation and Treat Consult to Physical Therapy Routine Comment: Physician Instructions: Consult to PT for:: Evaluation and Treat 07/03/24 06:25 Consult to Physiatry Routine Comment: Consulting Provider: [facility] - Rehab Reason For Exam: rehab Has Provider Been Notified: Yes Date of Notification: 07/03/24 Time of Notification: 06:07/03/24 10:57 Consult to General Surgery Routine Comment: Consulting Provider: [facility] Reason For Exam: old umb hernia site infection and ?sutures Has Provider Been Notified: Yes Date of Notification: 07/03/24 Time of Notification: 11:17 Discharge Diagnosis (1) Closed right hip fracture: (2) Diabetes: (3) Hyperglycemia: (4) Thrombocytopenia: (5) Primary biliary cholangitis: (6) Tobacco dependence: Final Diagnosis Final Discharge Diagnosis: Closed right hip fracture Diabetes with hyperglycemia Primary biliary cholangitis with thrombocytopenia Tobacco dependence Complication from prior umbilical hernia repair site Acute blood loss anemia Hyponatremia Hypomagnesemia Summary Hospital Course Hospital course: This is a 64-year-old female with a history of primary biliary cholangitis with thrombocytopenia, hyperlipidemia, legal blindness, GERD, diabetes, anemia, tobacco dependence. She presented to the hospital June 30 after sustaining a fallwith right intertrochanteric fracture. She underwent ORIF July 02 with orthopedicservices. She had postoperative anemia, did require 1 unit PRBC transfusion on July 04. She also received Ferrlecit in hospital as well as 2 units of platelets preoperatively. Postoperative edema of the right lower extremity ultrasound with no evidence for DVT. She was seen by therapy services with recommendationsfor ongoing rehab, denied inpatient rehab unit and eventually [facility], noting she wasactually medically stable for discharge July 05. She also during hospital stay had drainage from a prior umbilical hernia repair site that was done approximately 5 years prior, she was seen by surgical services with concern for old sutures still noted in the umbilicus as well as treated with antibiotic therapy due to purulent discharge from the site however culture without any growth. Furosemide was held while in hospital for for several days due to hyponatremia, resumed prior to discharge. Magnesium was repleted for low levels. Glucoses were elevated and A1c was noted to be 9.4 during hospital stay, glargine was increased during hospitalization. She was provided with nicotine replacement and coached on smoking cessation education during hospital stay. Chronic conditions otherwise remained stable while in hospital. Time Spent with Patient Time spent providing/coordinating discharge services (# min): 40 Surgeries and Procedures Operation Date: 07/01/24 12:30 <No data on this case meets the specified criteria> Operation Date: 07/02/24 08:00 Actual Procedures p OR Right Hip TFN (Right) - Roger Robbins, DO Discharge Plan Discharge Plan Patient Disposition: [facility] Facility Activity: Ambulate as Tolerated Comment: See ortho recs below Diet: Diabetic Additional Instructions: SNF to manage: -PT/OT to eval and treat -Monitor VS per protocol -High fall risk precautions -Perform GI and orthopedic assessments -Turn and reposition every 2 hours -Offload heels every 2 hours -Dietitian recommendations: Glucerna, 1 container, BID with meals -Monitor FSBS ACHS -Change dressing daily: *umbilicus surgical site- Clean with Vashe. Skin prep the cheryl wound. Silvasorb gel to the wound bed. Top with Telfa and secure with Opsite. -Change dressing every 3 days: *Mepilex border foam to Coccyx for added protection. -See ortho recs below -Continue use of incentive spirometry every 4 hours while awake -Care to be managed by SNF providers. Orthopedic surgery discharge instructions You are to remain weightbearing as tolerated on your operative extremity. You may change your dressings as needed after discharge from hospital. One week after surgery you may leave the incision open to air as long as there is no drainage. Ice the operative area for the first week after surgery, 20 minutes on and 20 minutes off for 3 hours a day. Continue therapy as instructed. Work on range of motion exercises as instructed in the hospital. Take all medications as prescribed. You should take calcium and vitamin D supplementation as well as a multivitamin. I also recommend using boost shakes for protein supplementation which will help with healing. Your sutures/donita may be removed 3 weeks postoperatively as long as there is no incisional drainage or issues. X-ray should be taken of your operative site at 3 weeks, 6 weeks and 3 months postoperatively. These can be taken at your care facility, if you are still residing in one, and sent to Dr. Robbins's office for review. You do not need to come in if you are still staying at a care facility. If you have been discharged from a care facility, or you are discharged home after yourhospital stay, you should follow-up with Dr. Robbins at 3 weeks, 6 weeks and 3 months postoperatively. Please monitor wound for any increased redness, irritation, pain or drainage. If there are any questions or concerns please callDr. Robbins's office. Dr. Roger Robbins [facility] [address] [place] [address] Instructions: Hope Pamphlet Prescriptions: New sennosides [Senna Lax] 8.6 mg Tablet 8.6 mg PO BID PRN (Reason: constipation) Qty: 0 0RF nicotine 21 mg/24 hr Patch 24 Hour 21 mg transdermal DAILY Qty: 0 0RF cefdinir 300 mg Capsule 300 mg PO BID Qty: 0 0RF Rx Instructions: last dose 07/09 pm insulin aspart U-100 100 unit/mL (3 mL) Insulin Pen 4 unit subcut TID.AC Qty: 0 0RF insulin glargine [Lantus Solostar U-100 Insulin] 100 unit/mL (3 mL) Insulin Pen 42 unit subcut DAILY Qty: 0 0RF melatonin 5 mg Tablet 5 mg PO QHS Qty: 0 0RF acetaminophen [Tylenol] 325 mg Tablet 650 mg PO Q6HR PRN (Reason: Pain Scale 1 - 3 or fever) Qty: 0 0RF oxycodone 5 mg Tablet 5 mg PO Q6HR PRN (Reason: Pain Scale 4 - 7) 3 Days Qty: 12 0RF Continued (DME) OneTouch Ultra Test Strip See Rx Instructions .ROUTE .MEDSUPPLY Qty: 400 1RF Rx Instructions: As directed four times a day gabapentin 300 mg Capsule 300 mg PO TID 3 Days Qty: 9 0RF pantoprazole 40 mg tablet,delayed release (DR/EC) 40 mg PO DAILY ursodiol 250 mg tablet 250 mg PO BID furosemide [Lasix] 20 mg tablet 20 mg PO DAILY magnesium oxide 400 mg magnesium tablet 400 mg PO DAILY Qty: 90 1RF atorvastatin 10 mg tablet 10 mg PO DAILY 90 Days Qty: 90 3RF spironolactone 50 mg tablet 50 mg PO DAILY Fiasp FlexTouch U-100 Insulin 100 unit/mL (3 mL) insulin pen See Rx Instructions subcut USEASDIRECTD 90 Days Qty: 15 0RF Rx Instructions: 4-6-8-10 units ac according to meal size plus ISS 1:30 ac, (hs if >200 half dose)(expect up to 50 units/day) Changed polyethylene glycol 3350 [Miralax] 17 gram/dose powder 17 g PO DAILY PRN (Reason: constipation) Qty: 1 0RF Discontinued insulin degludec [Tresiba FlexTouch U-100] 100 unit/mL (3 mL) insulin pen See Rx Instructions subcut DAILY Rx Instructions: 30 units subcut QAM Follow Up: Roger Robbins DO [Active Staff] - 07/26/24 2:15 pm (You have been scheduled for a follow up appointment for the following date and time, please call to reschedule if needed.) Chapis Lewis, NICOL-C [Primary Care Provider] - (Please arrange a follow-up appointment once discharged from SNF. ) Exam Physical Exam Vital Signs: Temp Pulse Resp BP Pulse Ox O2 Del Method O2 Flow Rate 97.4 F L 97 16 119/65 98 Room Air 8 07/08/24 12:00 07/08/24 12:00 07/08/24 12:00 07/08/24 12:00 07/08/24 12:00 07/08/24 12:00 07/02/24 09:20 Narrative: CONST- alert, in chair, elderly female, legally blind CARD- RRR no abnormal heart tones PULM- dimin without wheeze or rhonchi, RA ABD- S/NT, NABS EXTREM- 1+RLE edema, calves nontender Skin?right hip surgical dressing in place site not seen. Umbilical dressing present Diagnostic Studies Completed and Pending Studies Pending studies at discharge: 07/09/24 05:00 BMP [Basic Metabolic Panel] [CHEM] IN AM Labs on day of discharge: 07/08/24 11:10: POC Glucose 193, POC Glucose Comment Glu2: cleaned meter 07/08/24 07:44: POC Glucose 177, POC Glucose Comment Glu2: cleaned meter 07/08/24 05:11: PHA Creatinine Clear 115.42, Sodium 131 L D, Potassium 4.4, Chloride 102, Carbon Dioxide 24.7, Anion Gap 8.7, BUN 10, Creatinine 0.46 L, Est GFR (CKD-EPI) > 60.0, Glucose 90, Calcium 7.7 L 07/07/24 21:04: POC Glucose 174 07/07/24 16:39: POC Glucose 184, POC Glucose Comment Glu2: cleaned meter 07/01/24 05:50: 25-OH Vitamin D Total 15 L, 1,25 Dihydroxy Vit D2 11, 25-Hydroxy Vitamin D3 4.2 Attending Provider Attestation Attending Physician Attestation: I reviewed the history and current clinical course. I formulated the plan of care together with Ms. Jacobo CNP and confirmed above written note. Documented By: Sylvia Centeno APRN 06/29 1324 Signed By: <Electronically signed by ALLY Centeno> 07/08/24 1611 <Electronically signed by Forest Quiroz MD> 07/09/24 1525 [facility] Work Phone: Evaluation + Plan note Future Appointments Appointment Date:09/20/2024 01:30:00 PM Scheduled Provider:Berta Abreu PA-C Location:[facility] Appointment Type:URO New Patient Appointment Date:10/11/2024 02:20:00 PM Scheduled Provider:Chapis Dumont Location:[facility] Appointment Type:FM Open Appointment Date:10/11/2024 02:30:00 PM Scheduled Provider: Location:[facility] Appointment Type: Medicare Wellness Subsequent [facility] evaluation noteNo InformationNort [employer] Other Evaluation noteNo assessment information available [facility] Work Phone: evaluylcxf note* Diagnosis 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 Rectal varices- Primary Unspecified hemorrhoids without mention of complication Primary biliary cirrhosis (HCC) Biliary cirrhosis [facility] Diagnosis Onset Date Resolution Status Dietary counseling and surveillance acute Hyperlipidemia acute Type 1 diabetes mellitus with hyperglycemia acute [facility] Work Phone: evaluation note* Diagnosis Onset Date Resolution Status Dietary counseling and surveillance acute Hyperlipidemia acute Type 1 diabetes mellitus with hyperglycemia acute Anemia acute BRBPR (bright red blood per rectum) acute GI bleed acute [facility] Work Phone: Evaluation note* Diagnosis S/P TIPS (transjugular intrahepatic portosystemic shunt) Other postprocedural status [facility] Diagnosis Onset Date Resolution Status Dietary counseling and surveillance acute Type 1 diabetes mellitus with hyperglycemia acute Anemia acute Diabetes acute Esophageal varices determined by endoscopy acute GI bleed acute Portal hypertensive gastropathy acute Primary biliary cholangitis acute Rectal varices acute Chronic hypotension acute Cirrhosis of liver with ascites acute Hypomagnesemia acute Hyponatremia acute Hypophosphatemia acute Localized edema acute Vitamin D deficiency acute [facility] Work Phone: Evaluation note* Diagnosis 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 Esophageal varices without bleeding, unspecified esophageal varices type (HCC) Malnutrition of moderate degree (HCC) Malnutrition of moderate degree [facility] Diagnosis S/P TIPS (transjugular intrahepatic portosystemic shunt) Other postprocedural status [facility] Diagnosis Encounter for screening for osteoporosis- Primary Special screening for osteoporosis 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) Esophageal varices without bleeding, unspecified esophageal varices type (HCC) Malnutrition of moderate degree (HCC) Malnutrition of moderate degree [facility] Diagnosis 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 [facility] Diagnosis Onset Date Resolution Status Anemia acute Diabetes acute Esophageal varices determined by endoscopy acute GI bleed acute Portal hypertensive gastropathy acute Primary biliary cholangitis acute Rectal varices acute Chronic hypotension acute Cirrhosis of liver with ascites acute Hypomagnesemia acute Hyponatremia acute Hypophosphatemia acute Localized edema acute Vitamin D deficiency acute [facility] Work Phone: Evaluation note* Diagnosis Onset Date Resolution Status Anemia acute Diabetes acute Esophageal varices determined by endoscopy acute GI bleed acute Portal hypertensive gastropathy acute Primary biliary cholangitis acute Rectal varices acute Chronic hypotension acute Cirrhosis of liver with ascites acute Hypomagnesemia acute Hyponatremia acute Hypophosphatemia acute Localized edema acute Vitamin D deficiency acute BMI 22.0-22.9, adult acute Dietary counseling and surveillance acute HTN (hypertension) acute Hyperlipidemia acute Type 1 diabetes mellitus with hyperglycemia acute [facility] Work Phone: Evaluation note* Diagnosis Onset Date Resolution Status Chronic hypotension acute Cirrhosis of liver with ascites acute Hypomagnesemia acute Hyponatremia acute Hypophosphatemia acute Localized edema acute Vitamin D deficiency acute [facility] Work Phone: Evaluation note* Diagnosis 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) [facility] 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 Vitamin D deficiency Unspecified vitamin D deficiency [facility] Author Nimesh Chin [facility] July 01, 2022 9:56am Note Date/Time July 01, 2022 9:56am [facility] EN[facility] [address] [place] [address] Gastroenterology H&P Signed Patient: Teresa Lyle MR#: [id number] : 1960 Acct:[id number] Age/Sex: 62 / F Adm Date: 3 Loc: Room: Type: [facility] Attending Dr: Nimesh Chin MD Copies to: Nimesh Chin MD NO FAMILY PHYSICIAN~ Date of Service: 07/01/2022 HISTORY & PHYSICAL: Patient's history with special attention to the cardiovascular, pulmonary systems and the current problem was reviewed with the patient immediately prior to the procedure. Present medications and doses reviewed in the EMR. Allergies and pertinent laboratory tests were also reviewedat this time in the EMR. The physical examination, as below, was then performed. Indication, assessment and HPI: This is a 62-year-old female who presents for flex sig to evaluate rectal bleeding, history of PBC and clinically significant portal hypertension Family history of GI malignancy? No PHYSICAL EXAMINATION Mouth and Pharynx : Moist mucus membranes, normal dentition Cardiac: Regular rate, regular rhythm Pulmonary: Clear to auscultation bilaterally, no wheezing Neurological: Alert and oriented x3, no focal deficits noted Abdomen: Abdomen soft, non-tender REVIEW OF SYSTEMS Constitutional: Denies malaise, fevers Cardiovascular: Denies chest pain, palpitations Respiratory: Denies shortness of breath, wheezing Gastrointestinal: Per HPI Genitourinary: Denies dysuria, polyuria Musculoskeletal: Denies joint swelling, joint stiffness Neurological: Denies numbness, tingling Integumentary: Denies rashes, skin lesions Endocrine: Denies fatigue, weight loss Written informed consent obtained from the patient. Risks (including but not limited to perforation, infection, bloating, bleeding, need for emergent surgeryand loss of life), benefits and alternatives explained and questions answered. The patient verbalized understanding. Based on history patient is an appropriate candidate for the procedure. 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 Medical History Neuropathy of legs Medical History asthma Medical History COPD Medical History allergic rhinitis Surgical History Cholecystectomy Surgical History HERNIA Surgical History bands on esophagus for varicosi ties Surgical History EGD 01/17 Hospitalization History SEE ABOVE SURGERY Hospitalization History RT FX FOOT Hospitalization History hiatal hernial/ duodenit is, gastritis 06/2017 Hospitalization History [facility] 09[facility]2020 [employer] Other Hisdmiy general Narrative - Reported* Type Description Date Medical History Diagnosed with DM as Gestational DM since that time Medical History Arthritis Medical History 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 Medical History Neuropathy of legs Medical History asthma Medical History COPD Medical History allergic rhinitis Surgical History Cholecystectomy Surgical History HERNIA Surgical History bands on esophagus for varicosi ties Surgical History EGD 01/17 Surgical History Hernia repair 03/31/2021 Hospitalization History SEE ABOVE SURGERY Hospitalization History RT FX FOOT Hospitalization History hiatal hernial/ duodenit is, gastritis 06/2017 Hospitalization History [facility] 09[facility]2020 Hospitalization History [facility] -Hernia repair 03/31/2021 [employer] Other Hismueq general Narrative - Reported* Type Description Date Medical History Diagnosed with DM as Gestational DM since that time Medical History Arthritis Medical History 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 Medical History Neuropathy of legs Medical History asthma Medical History COPD Medical History allergic rhinitis Surgical History Cholecystectomy Surgical History HERNIA Surgical History bands on esophagus for varicosi ties Surgical History EGD 01/17 Surgical History Hernia repair 03/31/2021 Hospitalization History SEE ABOVE SURGERY Hospitalization History RT FX FOOT Hospitalization History hiatal hernial/ duodenit is, gastritis 06/2017 Hospitalization History [facility]2020 Hospitalization History [facility] -Hernia repair 03/31/2021 [employer] Other Hisstsz general Narrative - Reported* Type Description Date Medical History Diagnosed with DM as Gestational DM since that time Medical History Arthritis Medical History 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 Medical History Neuropathy of legs Medical History asthma Medical History COPD Medical History allergic rhinitis Surgical History Cholecystectomy Surgical History HERNIA Surgical History bands on esophagus for varicosi ties Surgical History EGD 01/17 Surgical History Hernia repair 03/31/2021 Surgical History PARTIAL COLONOSCOPY 06/30/2022 Hospitalization History SEE ABOVE SURGERY Hospitalization History RT FX FOOT Hospitalization History hiatal hernial/ duodenit is, gastritis 06/2017 Hospitalization History [facility]2020 Hospitalization History [facility] -Hernia repair 03/31/2021 [employer] Other Hospital course Narrative No data available for this section [facility] Hospital Discharge instructions Additional Instructions DISCHARGE INSTRUCTIONS FOR FLEXIBLE SIGMOIDOSCOPY WHAT TO EXPECT: - You may feel full, gassy or cramping after your procedure. In some cases, this may be from a few hours to a day. Walking may help relieve the discomfort. - You should begin to recover from anesthesia within 1 hour of the procedure, however may feel groggy for the next 24 hours. DO's AND DON'Ts: - Call your doctor right away if you have a hard abdomen, severe pain, are passing lots of bright red blood or clots. - Call your doctor if you develop any rashes, hives or difficulty breathing. - Let your doctor know if you have not had a bowel movement by 3 days after your procedure. - If you take 81 mg aspirin for your heart it is safe to resume this medication. - If you take other blood thinner medications your doctor will instruct you when these can safely be resumed. - Do NOT drive for 24 hours. - Do NOT operate machinery such as power tools, Delphin mowers, snow blowers, sewing machines, etc. for 24 hours. - Avoid alcoholic beverages and drugs for allergies, nerves, or sleep. - Do NOT stay alone. Do NOT leave your child unattended. - Do NOT make important personal or business decisions or sign any legal documents. - Eat solid foods and drink liquids in smaller amounts than usual until normal appetite returns. If you should experience an upset stomach, liquids high in sugar content (soda, Alonso-Aid, non-acid juices) are recommended. - You can resume normal activities tomorrow. FOLLOW UP & RECOMMENDATIONS: -Dr. Chin's office will give you referral to [facility] pathology for consideration of the special procedure for your rectal bleeding -Notify the doctor if you have any problems. -Follow up with PCP. -Office number [phone].[facility] Work Phone: Hospital Discharge instructions Additional Instructions DISCHARGE INSTRUCTIONS FOR UPPER ENDOSCOPY WHAT TO EXPECT: - You may feel full, gassy or cramping after your procedure. In some cases, this may be from a few hours to a day. Walking may help relieve the discomfort. - Your throat may feel sore today from the scope that the doctor passed through your throat to visualize your stomach. Take a throat lozenge or suck on ice to ease the discomfort. - You may notice some streaks of blood in your sputum if the doctor has taken a biopsy. - You should begin to recover from anesthesia within 1 hour of the procedure, however may feel groggy for the next 24 hours. DO's AND DON'Ts: - Call your doctor right away if you have a hard abdomen, severe pain, vomiting or if you cough up large amounts of blood. - Call your doctor if you develop any rashes, hives or difficulty breathing. - If you take 81 mg aspirin for your heart it is safe to resume this medication. - If you take other blood thinner medications your doctor will instruct you when these can safely be resumed. - Do NOT drive for 24 hours. - Do NOT operate machinery such as power tools, lawn mowers, snow blowers, sewing machines, etc. for 24 hours. - Avoid alcoholic beverages and drugs for allergies, nerves, or sleep. - Do NOT stay alone. Do NOT leave your child unattended. - Do NOT make important personal or business decisions or sign any legal documents. - Eat solid foods and drink liquids in smaller amounts than usual until normal appetite returns. If you should experience an upset stomach, liquids high in sugar content (soda, Alonso-Aid, non-acid juices) are recommended. - Do NOT smoke. - Do take it easy today. You need not stay in bed, but avoid strenuous activities such as jogging or working out. FOLLOW UP & RECOMMENDATIONS: -You can have a full liquid diet for the remainder of the day, starting tomorrow you should be on a soft diet for 24 to 48 hours. -Make sure you take your carvedilol 25 mg twice daily -Increase your pantoprazole to 40 mg twice daily. Take this 30 minutes before your first meal and 30 minutes before your last meal the day. -Dr. Chin's office will schedule you a repeat EGD in about 12 weeks -Keep your office appointment as scheduled -Notify the doctor if you have any problems. -Follow up with PCP. -Office number [phone].[facility] Work Phone: Hospital Discharge instructions No data available for this section [facility] Hospital Discharge instructions Additional Instructions If your symptoms return/worsen or you develop any further concerns or symptoms please see your doctor or return to the emergency department immediately. It is imperative that you go over today's visit and all results with your primary care provider.[facility] Work Phone: Progress note No data available for this section [facility] Reason for referral (narrative)* Reason Referral to [facility] for TIPS evaluation due to rectal varices. Please send flex sig report. Diagnosis 1 Primary biliary cirr hosis (K74.3) Referral Organization [facility] Referring Provider First Name Nimesh Referring Provider Last Name Elsy Referring Provider Specialty Gastroenter ology Referred Organization [facility] [address] [place] [place],[address] Referred Provider Specialty Hepatology Referral Priority Routine [employer] Other Reason for referral (narrative)* Diagnostic Procedure Only (Routine) - Closed Specialty Diagnoses / Procedures Referred By Contac t Referred To Contact US IMAGING Diagnoses S/P TIPS (transjugular intrahepatic portosystemic shunt) Procedures US DOPPLER COMPLETE DUP-SCAN ARTL AISHA ABDL/PEL/SCROT&/RPR ORGN COM Sallie West PA-C [address] [place] [address] [facility] [place] [address] Referral ID Status Reason Start Date Expiration Date V isits Requested Visits Authorized [id number] Closed Auto-Generate d Referral 06/29/2023 06/28/2024 1 1 * Diagnostic Procedure Only (Routine) - Closed Specialty Diagnoses / Procedures Referred By Contac t Referred To Contact US IMAGING Diagnoses S/P TIPS (transjugular intrahepatic portosystemic shunt) Procedures US ABD LIVER VASCULAR US ABDOMINAL REAL TIME W/IMAGE LIMITED DUP-SCAN ARTL AISHA ABDL/PEL/SCROT&/RPR ORGN COM Sallie West PA-C [address] [place] [address] Us Imaging [facility] Referral ID Status Reason Start Date Expiration Date V isits Requested Visits Authorized [id number] Closed Auto-Generate d Referral 06/29/2023 06/28/2024 1 [facility] Diagnostic Procedure Only (Routine) - Pending Review Specialty Diagnoses / Procedures Referred By Contac t Referred To Contact US IMAGING Diagnoses Encounter for screening for osteoporosis Procedures US DOPPLER COMPLETE DUP-SCAN ARTL AISHA ABDL/PEL/SCROT&/RPR ORGN COM Jena Cohen MD [address] [facility] [address] [place] [id number] [place] [address] Referral ID Status Reason Start Date Expiration Date Visits Requested Visits Authorized [id number] Pending Review Auto-Generat ed Referral 07/05/2023 08/03/2024 1 1 * Diagnostic Procedure Only (Routine) - Authorized Specialty Diagnoses / Procedures Referred By Contac t Referred To Contact US IMAGING Diagnoses Encounter for screening for osteoporosis Procedures US ABD LIVER VASCULAR US ABDOMINAL REAL TIME W/IMAGE LIMITED DUP-SCAN ARTL AISHA ABDL/PEL/SCROT&/RPR ORGN COM Jena Cohen MD [address] [place] [address] [facility] [place] [address] Referral ID Status Reason Start Date Expiration Date Visits Requested Visits Authorized [id number] Authorized Auto-Generat ed Referral 01/05/2024 08/03/2024 1 1 * Diagnostic Procedure Only (Routine) - Pending Review Specialty Diagnoses / Procedures Referred By Contac t Referred To Contact XR IMAGING Diagnoses Encounter for screening for osteoporosis Procedures DXA-AXIAL SKELETON Jena Cohen MD [address] [place] [address] Xr Imaging [facility] Referral ID Status Reason Start Date Expiration Date Visits Requested Visits Authorized [id number] Pending Review Auto-Generat ed Referral 07/05/2023 08/03/2024 1 1 [facility] for visit Narrative* Diagnostic Procedure Only (Routine) - Closed Specialty Diagnoses / Procedures Referred By Contac t Referred To Contact US IMAGING Diagnoses S/P TIPS (transjugular intrahepatic portosystemic shunt) Procedures US ABD LIVER VASCULAR US ABDOMINAL REAL TIME W/IMAGE LIMITED DUP-SCAN ARTL AISHA ABDL/PEL/SCROT&/RPR ORGN COM Sallie West PA-C [address] [place] [id number] [facility] [place] [address] Referral ID Status Reason Start Date Expiration Date V isits Requested Visits Authorized [id number] Closed Auto-Generate d Referral 05/28/2023 06/26/2024 1 1 [facility] for visit Narrative* Diagnostic Procedure Only (Routine) - Closed Specialty Diagnoses / Procedures Referred By Rl t Referred To Contact US IMAGING Diagnoses S/P TIPS (transjugular intrahepatic portosystemic shunt) Procedures US DOPPLER COMPLETE DUP-SCAN ARTL AISHA ABDL/PEL/SCROT&/RPR ORGN COM Sallie West PA-C [address] [place] [address] [facility] [place] [address] Referral ID Status Reason Start Date Expiration Date V isits Requested Visits Authorized [id number] Closed Auto-Generate d Referral 06/29/2023 06/28/2024 1 1 [facility] Summary Purpose Family History Relationship Condition Age at Onset Recorded Date/T lisset Not Specified Diabetes mellitus Unknown Heart disease Unknown father Diabetes mellitus Unknown sister Diabetes mellitus Unknown Relationship Condition Age at Onset Recorded Date/T lisset Not Specified Diabetes mellitus Unknown Heart disease Unknown father Diabetes mellitus Unknown sister Diabetes mellitus Unknown brother Malignant neoplasm Unknown Family history of mental disorder Unknown Diabetes mellitus Unknown father Dementia Unknown family member Unknown grandparent Unknown grandparent Diabetes mellitus Unknown Unknown sister Malignant neoplasm Unknown Relationship Condition Age at Onset Recorded Date/T lisset mother Diabetes mellitus Unknown Heart disease Unknown father Diabetes mellitus Unknown sister Diabetes mellitus Unknown brother Malignant neoplasm Unknown Family history of mental disorder Unknown Diabetes mellitus Unknown father Dementia Unknown family member Unknown grandparent Unknown grandparent Diabetes mellitus Unknown Unknown sister Malignant neoplasm Unknown Advance Directives Advance Directive Response Recorded Date/ Time Advance Directives No August 19 10:22am Advance Directive Response Recorded Date/ Time Advance Directives No August 19 11:22am Advance Directive Response Recorded Date/ Time Advance Directives No April 5:31pm Date Activated Date Inactivated Comments 05/24/2023 11:51 PM 06/01/2023 12:46 AM Question Answer Comments Full Code Order Discussed With: Patient Date Activated Date Inactivated Comments 05/24/2023 11:51 PM 06/01/2023 12:46 AM Question Answer Comments Full Code Order Discussed With: Patient Chief Complaint and Reason for Visit Chief Complaint E10.49 E87.1 R60.0 K74.6 I95.9 E10.9 E7835 Chief Complaint E87.1 R60.0 K74.6 I9 5.9 E10.9 E7835 E10.49 K74.3 Chief Complaint E10.49 K74.3 hemorrhoid, rectal bleed e87.1 r60.0 k74.60 I95.9 Chief Complaint E10.49 K76.3 Chief Complaint E10.49 K76.3 Primary Biliary Cirrhosis Chief Complaint E10.49 K76.3 Primary Biliary Cirrhosis Cirrhosis Chief Complaint Esophageal Varices Renal 6 Month Follow Up E10.9 E87.1 R60.0 K74.60 I95.9 E83.42 E83.39 Chief Complaint Esophageal Varices Renal 6 Month Follow Up E10.9 E87.1 R60.0 K74.60 I95.9 E83.42 E83.39 Reason for Visit Dietary counseling a nd surveillance Hyperlipidemia Type 1 diabetes mellitus with hyperglycemia Chief Complaint E10.9 E87.1 R60.0 K7 4.60 I95.9 E83.42 E83.39 abd swelling,rectal bleeding,rt leg swelling Reason for Visit Dietary counseling a nd surveillance Hyperlipidemia Type 1 diabetes mellitus with hyperglycemia Anemia BRBPR (bright red blood per rectum) GI bleed Chief Complaint E10.9 E87.1 R60.0 K7 4.60 I95.9 E83.42 E83.39 abd swelling,rectal bleeding,rt leg swelling abd swelling,rectal bleeding,rt leg swelling abd swelling,rectal bleeding,rt leg swelling RENAL 6 month f/u Reason for Visit Dietary counseling a nd surveillance Type 1 diabetes mellitus with hyperglycemia Anemia Diabetes Esophageal varices determined by endoscopy GI bleed Portal hypertensive gastropathy Primary biliary cholangitis Rectal varices Chronic hypotension Cirrhosis of liver with ascites Hypomagnesemia Hyponatremia Hypophosphatemia Localized edema Vitamin D deficiency Chief Complaint abd swelling,rectal bleeding,rt leg swelling abd swelling,rectal bleeding,rt leg swelling abd swelling,rectal bleeding,rt leg swelling RENAL 6 month f/u e87.1 r60.0 k74.60 I95.9 e83.42 e83.39 Reason for Visit Anemia Diabetes Esophageal varices determined by endoscopy GI bleed Portal hypertensive gastropathy Primary biliary cholangitis Rectal varices Chronic hypotension Cirrhosis of liver with ascites Hypomagnesemia Hyponatremia Hypophosphatemia Localized edema Vitamin D deficiency Chief Complaint abd swelling,rectal bleeding,rt leg swelling abd swelling,rectal bleeding,rt leg swelling abd swelling,rectal bleeding,rt leg swelling RENAL 6 month f/u e87.1 r60.0 k74.60 I95.9 e83.42 e83.39 meter Reason for Visit Anemia Diabetes Esophageal varices determined by endoscopy GI bleed Portal hypertensive gastropathy Primary biliary cholangitis Rectal varices Chronic hypotension Cirrhosis of liver with ascites Hypomagnesemia Hyponatremia Hypophosphatemia Localized edema Vitamin D deficiency BMI 22.0-22.9, adult Dietary counseling and surveillance HTN (hypertension) Hyperlipidemia Type 1 diabetes mellitus with hyperglycemia Chief Complaint Z13.820 K74.3 E83.39 E55.9 E83.42 I95.89 K74.60 Chief Complaint Z13.820 K74.3 E83.39 E55.9 E83.42 I95.89 K74.60 RENAL 6 MONTH F/U Reason for Visit Chronic hypotension Cirrhosis of liver with ascites Hypomagnesemia Hyponatremia Hypophosphatemia Localized edema Vitamin D deficiency Chief Complaint Admit Date fall June 30, 2024 9:16pm Reason for Visit Admit Date Closed right hip fracture June 30, 2024 9:16pm Diabetes June 30, 2024 9:16pm Hyperglycemia June 30, 2024 9:16pm Primary biliary cholangitis June 30 9:16pm Thrombocytopenia June 30, 2024 9:16pm Tobacco dependence June 30, 2024 9:16pm Chief Complaint Admit Date fall June 30, 2024 9:16pm fall July 01, 2024 7:04am fall July 03, 2024 1:32pm Reason for Visit Admit Date Cirrhosis of liver with ascites June 30, 2024 9:16pm Closed right hip fracture June 30, 2024 9:16pm Diabetes June 30, 2024 9:16pm Fall June 30, 2024 9:16pm HTN (hypertension) June 30, 2024 9:16pm Hyperglycemia June 30, 2024 9:16pm Hyperlipidemia June 30, 2024 9:16pm Impaired mobility and activities of zane y living June 30, 2024 9:16pm Intertrochanteric fracture of right hip June 30, 2024 9:16pm Non-healing wound June 30, 2024 9:16pm Primary biliary cholangitis June 30 9:16pm Thrombocytopenia June 30, 2024 9:16pm Tobacco dependence June 30, 2024 9:16pm Vitamin D deficiency June 30, 2024 9:16p m Chief Complaint Admit Date fall June 30, 2024 9:16pm fall July 01, 2024 7:04am fall July 03, 2024 1:32pm fall July 10, 2024 12:06 pm Chief Complaint Admit Date fall June 30, 2024 9:16pm fall July 01, 2024 7:04am fall July 03, 2024 1:32pm fall July 10, 2024 12:06 pm I10 I73.9 J45. J44.9 July 14, 2024 7:15 am S72.141D - Displaced intertrochanteric f racture of July 26, 2024 7:25am 3 WK POST OP July 26, 2024 2:13p m Reason for Visit Admit Date Cirrhosis of liver with ascites June 30, 2024 9:16pm Diabetes June 30, 2024 9:16pm HTN (hypertension) June 30, 2024 9:16pm Hyperlipidemia June 30, 2024 9:16pm Impaired mobility and activities of zane y living June 30, 2024 9:16pm Intertrochanteric fracture of right hip June 30, 2024 9:16pm Non-healing wound June 30, 2024 9:16pm Primary biliary cholangitis June 30 9:16pm Thrombocytopenia June 30, 2024 9:16pm Tobacco dependence June 30, 2024 9:16pm Vitamin D deficiency June 30, 2024 9:16p m Fall June 30, 2024 9:16pm Hyperglycemia June 30, 2024 9:16pm Closed right hip fracture June 30, 2024 9:16pm Intertrochanteric fracture of right hip July 26, 2024 2:13pm Other specified postprocedural states Ma y 2024 2:13pm Chief Complaint Admit Date fall June 30, 2024 9:16pm fall July 01, 2024 7:04am fall July 03, 2024 1:32pm fall July 10, 2024 12:06 pm I10 I73.9 J45. J44.9 July 14, 2024 7:15 am S72.141D - Displaced intertrochanteric f racture of July 26, 2024 7:25am 3 WK POST OP July 26, 2024 2:13p m abd pain August 19, 2024 5:37 pm S72.141D - Displaced intertrochanteric f racture of August 23, 2024 2:33pm 4 WEEKS August 23, 2024 2:42 pm Reason for Visit Admit Date Cirrhosis of liver with ascites June 30, 2024 9:16pm Diabetes June 30, 2024 9:16pm HTN (hypertension) June 30, 2024 9:16pm Hyperlipidemia June 30, 2024 9:16pm Impaired mobility and activities of zane y living June 30, 2024 9:16pm Intertrochanteric fracture of right hip June 30, 2024 9:16pm Non-healing wound June 30, 2024 9:16pm Primary biliary cholangitis June 30 9:16pm Thrombocytopenia June 30, 2024 9:16pm Tobacco dependence June 30, 2024 9:16pm Vitamin D deficiency June 30, 2024 9:16p m Fall June 30, 2024 9:16pm Hyperglycemia June 30, 2024 9:16pm Closed right hip fracture June 30, 2024 9:16pm Intertrochanteric fracture of right hip July 26, 2024 2:13pm Other specified postprocedural states Ma y 2024 2:13pm Acute metabolic encephalopathy July 5:37pm Altered mental status August 19, 2024 5: 37pm Hyperglycemia August 19, 2024 5:37 pm Intertrochanteric fracture of right hip August 23, 2024 2:42pm Other specified postprocedural states 2024 2:42pm Reason for Referral Specialty Diagnoses / Procedures Referred By Rl t Referred To Contact MR IMAGING Diagnoses 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) Procedures MRI 3D POST PROCESSING 3D RENDERING W/INTERP&POSTPROC DIFF WORK STATION Jena Cohen MD [address] [place] [phone] Mr Imaging [facility] Referral ID Status Reason Start Date Expiration Date Visits Requested Visits Authorized [id number] Pending Review Auto-Generat ed Referral 07/20/2023 08/18/2024 1 1 Specialty Diagnoses / Procedures Referred By Contac t Referred To Contact MR IMAGING Diagnoses 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) Procedures MRI PANC/RTISTAN WO/W IVCON MRI ABDOMEN W/O & W/CONTRAST MATERIAL Jena Cohen MD [address] [place] [address] Mr Imaging [facility] Referral ID Status Reason Start Date Expiration Date Visits Requested Visits Authorized [id number] Pending Review Auto-Generat ed Referral 07/20/2023 08/18/2024 1 1 Specialty Diagnoses / Procedures Referred By Contac t Referred To Contact Diagnoses Rectal varices Primary biliary cirrhosis (HCC) Procedures CONSULT TO TIPS CLINIC OFFICE/OUTPATIENT [facility] 60-74 MINUTES Moon Roper APRN.CIRCULATION ASSISTANT [address] [place] [id number] Referral ID Status Reason Start Date Expiration Date Visits Requested Visits Authorized [id number] Authorized PCP Requested Referral 10/13/2022 10/13/2023 1 1 Additional Source Comments INFORMATION SOURCE (unrecogn ized section and content) DATE CREATED AUTHOR 01/19/2021 [facility] DATE CREATED AUTHOR AUTHOR'S ORGANIZ ATION 05/14/2021 [facility] DATE CREATED AUTHOR AUTHOR'S ORGANIZ ATION 06/06/2023 [facility] DATE CREATED AUTHOR AUTHOR'S ORGANIZ ATION 04/20/2024 [facility] DATE CREATED AUTHOR AUTHOR'S ORGANIZ ATION 04/21/2024 [facility] DATE CREATED AUTHOR AUTHOR'S ORGANIZ ATION 08/13/2024 [facility] DATE CREATED AUTHOR AUTHOR'S ORGANIZ ATION 09/10/2024 [facility] DATE CREATED AUTHOR AUTHOR'S ORGANIZ ATION 09/11/2024 Manolo Amezcua [facility] REASON FOR VISIT (unrecogniz ed section and content) Reason Comments New Patient Primary biliary cirr hosis Reason Comments Request Outside Medical Records Reason Comments Consult TIPS [facility] Reason Comments New Patient Follow up hospital d ischarge Reason Comments Established Patient Follow up Biliary Ci rrhosis Reason Onset Date Comments Refill Request 08/27/2023 Reason Comments Radiology MRI Specialty Diagnoses / Procedures Referred By Contac t Referred To Contact MR IMAGING Diagnoses 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) Procedures MRI PANC/TRISTAN WO/W IVCON MRI ABDOMEN W/O & W/CONTRAST MATERIAL Jena Cohen MD [address] [place] [address] [place] [id number] Referral ID Status Reason Start Date Expiration Date V isits Requested Visits Authorized [id number] Closed Auto-Generate d Referral 07/20/2023 08/18/2024 1 1 Reason Comments Established Patient Hepatic cirrhosis du e to primary biliary cholangitis Reason Onset Date Comments Community Outreach 06/27/2024 Screening Nasim mogram Referral/ Learning And Development Specialist Reason Onset Date Comments Community Outreach 06/28/2024 Screening Nasim mogram Referral/ Learning And Development Specialist Care Teams (unrecognized sec tion and content) Personnel Name: Chapis Dumont Address: [address] [place] [address]- Telecom: Team Status: Active Member Role Status Dates Chapis Lewis NP-Jona Primary Care Provider Active Team Status: Inactive Member Role Status Dates JESSIE Lee Primary Care Provider Active Start: June 30, 2024 End: July 08, 2024 Harsha Wren DO Emergency Provider Active Start: June 30, 2024 End: July 08, 2024 Sarah Helm MD Admit Provider Active Sta rt: June 30, 2024 End: July 08, 2024 Teodora Fajardo MD Other Provider Active Start: Felicity epps 2024 End: July 08, 2024 Rubin Kang MD Other Provider Active Start: Luis Antonio perry 2024 End: July 08, 2024 Jillian Mohan APRN Other Provider Active St art: June 30, 2024 End: July 08, 2024 Jasiel Issa Jr, DO Other Provider Active S tart: June 30, 2024 End: July 08, 2024 Tremayne Pak MD Other Provider Active Start: June 30, 2024 End: July 08, 2024 George Arciniega MD Other Provider Active Start: M ay 2024 End: July 08, 2024 Tamanna Barajas MD Other Provider Active Star t: June 30, 2024 End: July 08, 2024 Roger Robbins DO Other Provider Active Start : June 30, 2024 End: July 08, 2024 Jena Long II, MD Other Provider Active S tart: June 30, 2024 End: July 08, 2024 Solo Waite DO Other Provider Active Start: June 30, 2024 End: July 08, 2024 Forest Quiroz MD Attending Provider Active S tart: June 30, 2024 End: July 08, 2024 Team Status: Active Member Role Status Dates Chapis Lewis JITTERBUG OPERATOR-C Primary Care Provider Active Start: July 01, 2024 Harsha Wren DO Emergency Provider Active Start: July 01, 2024 Sarah Helm MD Admit Provider Active Sta rt: July 01, 2024 Digna Roberto MD Other Provider Active Start: M ay 2024 George Arciniega MD Other Provider Active Start: M ay 2024 Tamanna Barajas MD Other Provider Active Star t: July 01, 2024 Roger Robbins DO Attending Provider, Other Provider Active Start: July 01, 2024 Jena Long II, MD Other Provider Active S tart: July 01, 2024 Solo Waite DO Other Provider Active Start: July 01, 2024 Team Status: Active Member Role Status Dates Chapis Lewis JITTERBUG OPERATOR-C Primary Care Provider Active Start: July 03, 2024 Harsha Wren DO Emergency Provider Active Start: July 03, 2024 Sarah Helm MD Admit Provider Active Sta rt: July 03, 2024 Digna Roberto MD Other Provider Active Start: M ay 2024 George Arciniega MD Other Provider Active Start: M ay 2024 Tamanna Barajas MD Other Provider Active Star t: July 03, 2024 Roger Robbins , DO Other Provider Active Start : July 03, 2024 Jena Long II, MD Other Provider Active S tart: July 03, 2024 Solo Waite , DO Other Provider Active Start: July 03, 2024 Teodora Fajardo MD Other Provider Active Start: Ma y 2024 Rubin Kang MD Other Provider Active Start: M ay 2024 Jillian Mohan APRN Other Provider Active St art: July 03, 2024 Jasiel Issa Jr, DO Other Provider Active S tart: July 03, 2024 Tremayne Pak MD Attending Pr juanita, Other Provider Active Start: July 03, 2024 Kraig Hubbard , DO Other Provider Active Sta rt: July 03, 2024 Kali Mccrary MD Other Provider Active Start: July 03, 2024 Ricardo Mena , Other Provider Active Start: Ma y 2024 Team Status: Active Member Role Status Dates Chapis Lewis NP-C Primary Care Provider Active Start: June 30, 2024 Harsha Wren , DO Emergency Provider Active Start: June 30, 2024 Sarah Helm MD Admit Provider, A ttending Provider Active Start: June 30, 2024 Team Status: Active Member Role Status Dates PHYSICIAN NO FAMILY Primary Care Provider Active Team Status: Active Member Role Status Dates Rain Hebert MD Primary Care Provider Active Ajay Elam APRN Attending Provider Active Team Status: Inactive Member Role Status Dates Rain Hebert MD Primary Care Provider Active Nimesh Chin MD Attending Provider Active Team Status: Inactive Member Role Status Dates Nimesh Chin MD Attending Provider Active PHYSICIAN NO FAMILY Primary Care Provider Active Mickey Lovett MD Other Provider Active Team Status: Inactive Member Role Status Dates Rain Hebert MD Primary Care Provider Active Ajay Elam APRN Attending Provider Active Mickey Lovett MD Other Provider Active Team Status: Active Member Role Status Dates Rain Hebert MD Primary Care Provider Active Distribution System Operator Relationship Specialty Start Date End Date Rain Hebert MD [address] [place] [address] [phone] (work) PCP - General Family Medicine 09/25/19 Al G[facility]mez [address] [place] [address] Gastroenterology 09/22/19 Nimesh Chin [address] [place] [address] Referring Gastroenterology 07/06/22 Distribution System Operator Relationship Specialty Start Date End Date Rain Hebert MD [address] [place] [address] PCP - General Family Medicine 09/25/19 Al G[facility]mez [address] [place] [address] Gastroenterology 09/22/19 Nimesh Chin [address] [place] [address] Referring Gastroenterology 07/06/22 Team Status: Inactive Member Role Status Dates PHYSICIAN NO FAMILY Primary Care Provider Active Nimesh Chin MD Attending Provider Active Distribution System Operator Relationship Specialty Start Date End Date Rain Hebert MD [address] [place] [address] PCP - General Family Medicine 09/25/19 Al G[facility]mez [address] [place] [address] Gastroenterology 09/22/19 Nimesh Chin [address] [place] [address] Referring Gastroenterology 07/06/22 Team Status: Inactive Member Role Status Dates Nimesh Chin MD Attending Provider Active S tart: February 02, 2023 End: February 02, 2023 Chapis eLwis NP-C Primary Care Provider Active Start: February 02, 2023 End: February 02, 2023 Mickey Lovett MD Other Provider Active Start: Janell 2022 End: February 02, 2023 Team Status: Inactive Member Role Status Dates Mickey Lovett MD Attending Provider Active Star t: February 09, 2023 End: February 09, 2023 Team Status: Inactive Member Role Status Dates Chapis Lewis JITTERBUG OPERATOR-C Primary Care Provider Active Start: April 13, 2023 End: April 13, 2023 Ajay Elam APRN Attending Provider Active Start: April 13, 2023 End: April 13, 2023 Mickey Lovett MD Other Provider Active Start: [facility] 2023 End: April 13, 2023 Team Status: Inactive Member Role Status Dates Chapis Lewis JITTERBUG OPERATOR-C Primary Care Provider Active Start: April 20, 2023 End: April 20, 2023 Ajay Elam APRN Attending Provider Active Start: April 20, 2023 End: April 20, 2023 Team Status: Active Member Role Status Dates Chapis Lewis JITTERBUG OPERATOR-C Primary Care Provider Active Start: May 24, 2023 Harsha Wren DO Emergency Provider Active Start: May 24, 2023 Danielle Glass MD Admit Provider, Atte nding Provider Active Start: May 24, 2023 Distribution System Operator Relationship Specialty Start Date End Date Rain Hebert MD [address] [facility] [place] [address] PCP - General Family Medicine 09/25/19 Al G[address]mez [address] [place] [address] Gastroenterology 09/22/19 Nimesh Chin MD [address] [place] [address] [place] [address] Referring Gastroenterology 07/06/22 Team Status: Inactive Member Role Status Dates Chapis Lewis NP-C Primary Care Provider Active Start: May 24, 2023 End: May 24, 2023 Harsha Wren DO Emergency Provider Active Start: May 24, 2023 End: May 24, 2023 Danielle Glass MD Admit Provider Active Start: May 24, 2023 End: May 24, 2023 Arnoldo Arguello MD Attending Provider Active Sta rt: May 24, 2023 End: May 24, 2023 Nimesh Chin MD Other Provider Active Start : May 24, 2023 End: May 24, 2023 Team Status: Active Member Role Status Dates Chapis Lewis JITTERBUG OPERATOR-C Primary Care Provider Active Start: May 24, 2023 End: May 24, 2023 Harsha Wren DO Emergency Provider Active Start: May 24, 2023 End: May 24, 2023 Danielle Galss MD Admit Provider, Atte nding Provider, Other Provider Active Start: May 24, 2023 End: May 24, 2023 Team Status: Active Member Role Status Dates Chapis Lewis NP-C Primary Care Provider Active Start: May 24, 2023 End: May 24, 2023 Harsha Wren DO Emergency Provider Active Start: May 24, 2023 End: May 24, 2023 Danielle Glass MD Admit Provider Active Start: May 24, 2023 End: May 24, 2023 Arnoldo Arguello MD Other Provider Active Start: May 24, 2023 End: May 24, 2023 Nimesh Chin MD Attending Provider, Other Provider Active Start: May 24, 2023 End: May 24, 2023 Team Status: Inactive Member Role Status Dates Chapis Lewis NP-C Primary Care Provider Active Start: June 15, 2023 End: June 15, 2023 Mickey Lovett MD Attending Provider Active Star t: June 15, 2023 End: June 15, 2023 Distribution System Operator Relationship Specialty Start Date End Date Rain Hebert MD [address] [place] [address] PCP - General Family Medicine 09/25/19 [place] [address] Gastroenterology 09/22/19 [place] [address] Referring Gastroenterology 07/06/22 Distribution System Operator Relationship Specialty Start Date End Date Rain Hebert MD [address] [place] [address] PCP - General Family Medicine 09/25/19 [place] [address] Gastroenterology 09/22/19 Nimesh Chin MD [address] [place] [address] Referring Gastroenterology 07/06/22 Distribution System Operator Relationship Specialty Start Date End Date Rain Hebert MD [address] [place] [address] PCP - General Family Medicine 09/25/19 Al G[address]z [address] [place] [address] Gastroenterology 09/22/19 Nimesh Chin MD [address] [place] [address] Referring Gastroenterology 07/06/22 Distribution System Operator Relationship Specialty Start Date End Date Rain Hebert MD [address] [place] [address] PCP - General Family Medicine 09/25/19 Al G[address] [facility] [place] [address] Gastroenterology 09/22/19 Nimesh Chin MD Mary [address] [facility] [place] [address] Referring Gastroenterology 07/06/22 Team Status: Inactive Member Role Status Dates Chapis Lewis NP-C Primary Care Provider Active Start: July 16, 2023 End: July 16, 2023 Ajay Elam APRN Attending Provider Active Start: July 16, 2023 End: July 16, 2023 Team Status: Inactive Member Role Status Dates Chapis Lewis NP-C Primary Care Provider Active Start: July 21, 2023 End: July 21, 2023 Ajay Elam APRN Attending Provider Active Start: July 21, 2023 End: July 21, 2023 Distribution System Operator Relationship Specialty Start Date End Date Rain Hebert MD [address] [place] [address] PCP - General Family Medicine 09/25/19 Al G[address]me[address] [facility] [place] [address] Gastroenterology 09/22/19 Nimesh Chin MD [address] [facility] [place] [address] Referring Gastroenterology 07/06/22 Team Status: Inactive Member Role Status Dates JESSIE Lee Primary Care Provider Active Start: November 23, 2023 End: November 23, 2023 Mickey Lovett MD Attending Provider Active Star t: November 23, 2023 End: November 23, 2023 Jena Cohen MD Referring Provider Active Sta rt: November 23, 2023 End: November 23, 2023 Team Status: Inactive Member Role Status Dates JESSIE Lee Primary Care Provider Active Start: November 30, 2023 End: November 30, 2023 Mickey Lovett MD Attending Provider Active Star t: November 30, 2023 End: November 30, 2023 Distribution System Operator Relationship Specialty Start Date End Date Rain Hebert MD [address] [facility] [place] [address] PCP - General Family Medicine 09/25/19 Al Gómez [address] [facility] [address] [place] [address] Gastroenterology 09/22/19 Nimesh Chin MD [address] [place] [address] Referring Gastroenterology 07/06/22 Distribution System Operator Relationship Specialty Start Date End Date Rain Hebert MD [address] [facility] [place] [address] PCP - General Family Medicine 09/25/19 Al Gómez [address] [place] [address] Gastroenterology 09/22/19 Nimesh Chin MD [address] [address] Referring Gastroenterology 07/06/22 Distribution System Operator Relationship Specialty Start Date End Date Rain Hebert MD [address] [facility] [place] [place] [address] PCP - General Family Medicine 09/25/19 Al Gómez MD [address] [place] [address] Gastroenterology 09/22/19 Nimesh Chin MD [address] [place] [address] Referring Gastroenterology 07/06/22 Team Status: Inactive Member Role Status Dates Chapis Lewis JITTERBUG OPERATOR-C Primary Care Provider Active Start: July 10, 2024 End: July 10, 2024 Darion Goss DO Emergency Provider Active Start: July 10, 2024 End: July 10, 2024 Team Status: Inactive Member Role Status Dates Chapis Lewis JITTERBUG OPERATOR-C Primary Care Provider Active Start: July 14, 2024 End: July 14, 2024 Jordan Thomson DO Attending Provider Active Start: July 14, 2024 End: July 14, 2024 Team Status: Active Member Role Status Dates Roger Robbins DO Attending Provider Active S tart: July 26, 2024 Chapis Lewis JITTERBUG OPERATOR-C Primary Care Provider Active Start: July 26, 2024 Team Status: Inactive Member Role Status Dates Chapis Lewis NP-C Primary Care Provider Active Start: July 26, 2024 End: July 26, 2024 Roger Robbins DO Attending Provider Active S tart: July 26, 2024 End: July 26, 2024 Team Status: Inactive Member Role Status Dates Roger Robbins , DO Attending Provider Active S tart: July 26, 2024 End: July 26, 2024 Chapis Sylvia Joshua , JITTERBUG OPERATOR-C Primary Care Provider Active Start: July 26, 2024 End: July 26, 2024 Team Status: Active Member Role Status Dates Chapis Lewis JITTERBUG OPERATOR-C Primary Care Provider Active Start: July 01, 2024 Harsha Wren , DO Emergency Provider Active Start: July 01, 2024 Sarah Helm MD Admit Provider Active Sta rt: July 01, 2024 Digna Roberto MD Other Provider Active Start: M ay 2024 George Arciniega MD Other Provider Active Start: M ay 2024 Tamanna Barajas MD Other Provider Active Star t: July 01, 2024 Roger Robbins , DO Attending Provider Active S tart: July 01, 2024 Roger Robbins , DO Other Provider Active Start : July 01, 2024 Jena Long II, MD Other Provider Active S tart: July 01, 2024 Solo Waite , DO Other Provider Active Start: July 01, 2024 Team Status: Active Member Role Status Dates Chapis Lewis JITTERBUG OPERATOR-C Primary Care Provider Active Start: July 03, 2024 Harsha Wren , Emergency Provider Active Start: July 03, 2024 Sarah Helm MD Admit Provider Active Sta rt: July 03, 2024 Digna Roberto MD Other Provider Active Start: M ay 2024 George Arciniega MD Other Provider Active Start: M ay 2024 Tamanna Barajas MD Other Provider Active Star t: July 03, 2024 Roger Robbins DO Other Provider Active Start : July 03, 2024 Jena Long II, MD Other Provider Active S tart: July 03, 2024 Solo Waite DO Other Provider Active Start: July 03, 2024 Teodora Fajardo MD Other Provider Active Start: Ma y 2024 Rubin Kang MD Other Provider Active Start: M ay 2024 Jillian Mohan APRN Other Provider Active St art: July 03, 2024 Jasiel Issa Jr DO Other Provider Active S tart: July 03, 2024 Tremayne Pak MD Attending Provider Active Start: July 03, 2024 Tremayne Pak MD Other Provider Active Start: July 03, 2024 Kraig Hubbard , Other Provider Active Sta rt: July 03, 2024 Kali Mccrary MD Other Provider Active Start: July 03, 2024 Ricardo Mena DO Other Provider Active Start: Felicity epps 2024 Team Status: Inactive Member Role Status Dates Deshaun Han MD Emergency Provider Active Sta rt: August 19, 2024 End: August 21, 2024 Mack Carmona MD Admit Provider Active Start: August 19, 2024 End: August 21, 2024 Aly Hooks MD Attending Provider Active Start: August 19, 2024 End: August 21, 2024 Chapis Lewis JITTERBUG OPERATOR-C Primary Care Provider Active Start: August 19, 2024 End: August 21, 2024 Team Status: Active Member Role Status Dates Roger Robbins DO Attending Provider Active S tart: August 23, 2024 Chapis Lewis , JITTERBUG OPERATOR-C Primary Care Provider Active Start: August 23, 2024 Team Status: Inactive Member Role Status Dates Chapis Lewis JITTERBUG OPERATOR-C Primary Care Provider Active Start: August 23, 2024 End: August 23, 2024 Roger Robbins DO Attending Provider Active S tart: August 23, 2024 End: August 23, 2024 Team Status: Inactive Member Role Status Dates Roger Robbins DO Attending Provider Active S tart: August 23, 2024 End: August 23, 2024 Chapis Lewis , JITTERBUG OPERATOR-C Primary Care Provider Active Start: August 23, 2024 End: August 23, 2024 Goals (unrecognized section and content) Goals may be documented in a n alternate section Source Comments (unrecognize d section and content) In the event this informatio n is protected by the Federal Confidentiality of Alcohol and Drug Abuse Patient Records regulations: The Federal rules restrict any use of the information to criminally investigate or prosecute any alcohol or drug abuse patient.[facility] the event this information is protected by the Federal Confidentiality of Alcohol and Drug Abuse Patient Records regulations: The Federal rules restrict any use of the information to criminally investigate or prosecute any alcohol or drug abuse patient.[facility] the event this information is protected by the Federal Confidentiality of Alcohol and Drug Abuse Patient Records regulations: The Federal rules restrict any use of the information to criminally investigate or prosecute any alcohol or drug abuse patient.[facility] the event this information is protected by the Federal Confidentiality of Alcohol and Drug Abuse Patient Records regulations: The Federal rules restrict any use of the information to criminally investigate or prosecute any alcohol or drug abuse patient.[facility] the event this information is protected by the Federal Confidentiality of Alcohol and Drug Abuse Patient Records regulations: The Federal rules restrict any use of the information to criminally investigate or prosecute any alcohol or drug abuse patient.[facility] the event this information is protected by the Federal Confidentiality of Alcohol and Drug Abuse Patient Records regulations: The Federal rules restrict any use of the information to criminally investigate or prosecute any alcohol or drug abuse patient.[facility] the event this information is protected by the Federal Confidentiality of Alcohol and Drug Abuse Patient Records regulations: The Federal rules restrict any use of the information to criminally investigate or prosecute any alcohol or drug abuse patient.[facility] the event this information is protected by the Federal Confidentiality of Alcohol and Drug Abuse Patient Records regulations: The Federal rules restrict any use of the information to criminally investigate or prosecute any alcohol or drug abuse patient.[facility] the event this information is protected by the Federal Confidentiality of Alcohol and Drug Abuse Patient Records regulations: The Federal rules restrict any use of the information to criminally investigate or prosecute any alcohol or drug abuse patient.[facility] the event this information is protected by the Federal Confidentiality of Alcohol and Drug Abuse Patient Records regulations: The Federal rules restrict any use of the information to criminally investigate or prosecute any alcohol or drug abuse patient.[facility] the event this information is protected by the Federal Confidentiality of Alcohol and Drug Abuse Patient Records regulations: The Federal rules restrict any use of the information to criminally investigate or prosecute any alcohol or drug abuse patient.[facility] the event this information is protected by the Federal Confidentiality of Alcohol and Drug Abuse Patient Records regulations: The Federal rules restrict any use of the information to criminally investigate or prosecute any alcohol or drug abuse patient.[facility] the event this information is protected by the Federal Confidentiality of Alcohol and Drug Abuse Patient Records regulations: The Federal rules restrict any use of the information to criminally investigate or prosecute any alcohol or drug abuse patient.[facility] the event this information is protected by the Federal Confidentiality of Alcohol and Drug Abuse Patient Records regulations: The Federal rules restrict any use of the information to criminally investigate or prosecute any alcohol or drug abuse patient.[facility] the event this information is protected by the Federal Confidentiality of Alcohol and Drug Abuse Patient Records regulations: The Federal rules restrict any use of the information to criminally investigate or prosecute any alcohol or drug abuse patient.[facility] the event this information is protected by the Federal Confidentiality of Alcohol and Drug Abuse Patient Records regulations: The Federal rules restrict any use of the information to criminally investigate or prosecute any alcohol or drug abuse patient.[facility] FOR RECORDS PERTAINING TO PATIENTS WHO ARE OR HAVE BEEN ENROLLED IN A CHEMICAL DEPENDENCY/SUBSTANCEABUSE PROGRAM, SOME INFORMATION MAY BE OMITTED. This clinical summary was aggregated from multiple sources. Caution should be exercised in using it in the provision of clinical care. This summary normalizes information from multiple sources, and as a consequence, information in this document may materially change the coding, format and clinical context of patient data. In addition, data may be omitted in some cases. CLINICAL DECISIONS SHOULD BE BASED ON THE PRIMARY CLINICAL RECORDS. [facility]. provides no warranty or guarantee of the accuracy or completeness of information in this document.
[2024-09-14 21:00] VITALS: BP 167/79; O2SAT 100
--- NOTE | 2024-09-14 21:13 | XR_ITS ---
The [address] [address] Patient Name: VIC POST MRN: [id number] date: 1960 Sex: F Assigned Patient Location: ED.MAIN Current Patient Location: ED.MAIN Accession/Order Number: [id number] Exam Date: 09/14/2024 22:43 Report Date: 09/14/2024 22:46 At the request of: MARGARITA STEPHENS MD Procedure: XR chest 1V XR chest 1V 09/14/2024 10:34 PM SIGNS AND SYMPTOMS: Altered mental status, confusion PROTOCOL: Frontal radiograph of the chest COMPARISON: 04/18/2024 FINDINGS: The trachea is midline. The heart and mediastinal structures are within normal limits. The lung parenchyma is clear. The bony thorax is intact. XR/XR chest 1V IMPRESSION: No acute cardiopulmonary pathology. Impression dictated by: Gerardo Cardenas M.D. 09/14/2024 10:46 PM Dictation Location: [place] [address] Electronically authenticated by: [id number] Date: 09/14/2024 22:46
--- NOTE | 2024-09-14 21:13 | CT_ITS ---
The [address] [address] Patient Name: VIC POST MRN: [id number] date: 1960 Sex: F Assigned Patient Location: ED.MAIN Current Patient Location: ED.MAIN Accession/Order Number: [id number] Exam Date: 09/14/2024 22:47 Report Date: 09/14/2024 22:52 At the request of: MARGARITA STEPHENS MD Procedure: CT head/brain wo con CT head/brain wo con 09/14/2024 10:34 PM SIGNS AND SYMPTOMS: ^altered mental status TECHNIQUE:Multi-detector CT axial slices of the brain were obtained without IV contrast. CT was performed with one or more of the following dose reduction techniques: Automated exposure control, adjustment of the mA and/or kV according to patient size, or use of iterative reconstruction technique. COMPARISON: None. FINDINGS: There is no shift of the midline structures, acute intracranial bleeding, mass effects, or evidence of acute ischemia. Benign-appearing calcifications are present in the deep robles nuclei. Atherosclerotic changes are noted in the intracranial segments of the internal carotid arteries and V4 segment of the left vertebral artery. The ventricular system is normal in size. The brainstem and the cerebellum are unremarkable. The visualized intraorbital contents, the visualized paranasal sinuses, and the infratemporal soft tissues show no acute abnormality. The osseous structures in the skull base and the calvarium show no abnormality. CT/CT head/brain wo con IMPRESSION: No acute intracranial pathology. Impression dictated by: Gerardo Cardenas M.D. 09/14/2024 10:52 PM Dictation Location: [place] [address] Electronically authenticated by: [id number] Y Date: 09/14/2024 22:52
--- NOTE | 2024-09-14 21:13 | ECG_ITS ---
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
--- NOTE | 2024-09-14 21:15 | ED.AMS1 ---
HPI - Altered Mental Status General Chief Complaint: Altered Mental Status Stated Complaint: other Time Seen by Provider: 09/14/24 21:09 Source: EMR Mode of arrival: ambulance History of Present Illness HPI narrative: brought to ER from home. History limited as patient is by herself. Reported altered mental status. She is disoriented. Does not know where she is , the year etc. She is in no distress. has indwelling shipman. Patient has history of STANTON cirrhosis Related Data Home Medications ?Medication ?Instructions ?Recorded ?Confirmed atorvastatin 10 mg tablet 10 mg PO DAILY 11/18/22 09/14/24 furosemide 40 mg tablet 40 mg PO BID 11/18/22 09/14/24 magnesium oxide 400 mg (241.3 mg 400 mg PO DAILY constipation 11/18/22 09/15/24 magnesium) tablet pantoprazole 40 mg tablet,delayed 40 mg PO DAILY 11/18/22 09/15/24 release spironolactone 100 mg tablet 50 mg PO BID 11/18/22 09/14/24 ursodiol 300 mg capsule 300 mg PO QID 11/18/22 09/14/24 gabapentin 300 mg capsule 300 mg PO Q8H 06/22/23 09/14/24 albuterol sulfate 90 mcg/actuation 2 inh inhalation Q6H PRN shortness 09/14/24 09/14/24 aerosol inhaler of breath or wheezing insulin aspart 1 sliding scale dose subcut 09/14/24 09/14/24 (niacinamide)(U-100) 100 unit/mL(3 USEASDIRECTD mL) subcutaneous pen (Fiasp FlexTouch U-100 Insulin) insulin degludec 200 unit/mL (3 40 unit subcut BID 09/14/24 09/14/24 mL) subcutaneous pen (Tresiba FlexTouch U-200 insulin) polyethylene glycol 3350 17 17 g PO TID 09/15/24 09/15/24 gram/dose oral powder (Miralax) tramadol 50 mg tablet 50 mg PO Q4H PRN pain 09/15/24 09/15/24 Allergies Allergy/AdvReac Type Severity Reaction Status Date / Time No Known Drug Allergies Allergy Verified 09/14/24 21:43 Review of Systems ROS Status of ROS unobtainable due to mental status [facility] Medical History (Updated 07/18/25 @ 12:05 by Arnoldo Arguello MD) COPD (chronic obstructive pulmonary disease) ?J44.9 - Chronic obstructive pulmonary disease, unspecified (ICD-10) Urinary retention ?R33.9 - Retention of urine, unspecified (ICD-10) Nonalcoholic steatohepatitis (STANTON) ?K75.81 - Nonalcoholic steatohepatitis (STANTON) (ICD-10) Surgical History (Updated 09/15/24 @ 09:41 by Anila Kong RN) S/P TIPS (transjugular intrahepatic portosystemic shunt) ?Z95.828 - Presence of other vascular implants and grafts (ICD-10) History of open reduction and internal fixation (ORIF) procedure ?Z98.890 - Other specified postprocedural states (ICD-10) Family History (Updated 09/15/24 @ 10:14 by Anila Kong RN) Mother Family history of myocardial infarction Family history of CHF (congestive heart failure) Family history of diabetes mellitus Sister Family history of hypertension Brother Family history of cancer Social History (Updated 09/15/24 @ 10:13 by Anila Kong RN) Within the past year, how often did you have a drink containing alcohol: never Score interpretation: A score less than 3 is consistent with normal alcohol consumption. Smoking status: Current some day smoker Non-prescribed substance use: denies use Highest level of school completed/degree received: high school graduate Little interest or pleasure in doing things: not at all Feeling down, depressed, or hopeless: more than half the days Exam Constitutional Vital Signs, click to edit/add: Last Vital Signs Temp 98.0 F 09/18/24 11:59 Pulse 100 H 09/18/24 11:59 Resp 16 09/18/24 11:59 BP 140/73 09/18/24 11:59 Pulse Ox 99 09/18/24 11:59 O2 Del Method Room Air 09/18/24 11:59 Common normals: no apparent distress and alert HENMT Common normals: normocephalic and head/scalp atraumatic Eye Common normals: PERRL and EOMs intact bilaterally Respiratory Common normals: normal respiratory effort, no retractions, no use of accessory muscles and clear to auscultation bilaterally Cardio Common normals: regular rate, regular rhythm, S1 normal heart sound and S2 normal heart sound GI Common normals: Normal to inspection, nondistended, normoactive bowel sounds present, soft to palpation and non-tender Extremity Common normals: normal to inspection Neuro Common normals: CN's II-XII intact bilaterally and moves all extremities Sensorium/orientation: oriented to person Course Vital Signs Vital signs: Vital Signs Temperature 98.9 F 09/14/24 20:52 Pulse Rate 100 H 09/14/24 20:52 Respiratory Rate 20 09/14/24 20:52 Blood Pressure 155/94 H 09/14/24 20:52 Pulse Oximetry 98 09/14/24 20:52 Oxygen Delivery Method Room Air 09/14/24 20:52 Temperature 98.0 F 09/18/24 11:59 Pulse Rate 100 H 09/18/24 11:59 Respiratory Rate 16 09/18/24 11:59 Blood Pressure 140/73 09/18/24 11:59 Pulse Oximetry 99 09/18/24 11:59 Oxygen Delivery Method Room Air 09/18/24 11:59 MDM - Altered Mental Status MDM Narrative Medical decision making narrative: patient presents with altered mental state. History of STANTON cirrhosis. Non compliant with lactulose. No complaint of pain. Oriented to self. No distress and cooperative. CT brain and cxray neg. labs with elevated ammonia level and UA positive but patient has shipman in place and is afebrile. Discussed with hospitalist and will plan in patient admission Lab Data Labs: Lab Results 09/14/24 09/14/24 09/15/24 Range/Units 21:00 21:40 00:12 WBC 6.4 (4.0-11.0) 10^3/uL RBC 5.45 H (4.20-5.40) 10^6/uL Hgb 16.2 H (12.0-16.0) g/dL Hct 48.5 H (36.0-48.0) % MCV 89.0 (81.0-99.0) fL MCH 29.7 (26.7-34.0) pg MCHC 33.4 (29.9-35.2) g/dL RDW 17.5 H (11.0-15.0) % Plt Count 94 L (150-450) 10^3/uL MPV 10.8 (9.5-13.5) fL Seg Neuts % (Manual) 84.0 H (43.0-75.0) Lymphocytes % (Manual) 10.0 L (20.5-60.0) % Monocytes % (Manual) 6.0 (1.7-12.0) % Eosinophils % (Manual) 0.0 L (0.9-7.0) % Basophils % (Manual) 0.0 L (0.2-2.0) % Neutrophils # (Manual) 5.37 (1.4-6.5) 10^3/uL Lymphocytes # (Manual) 0.64 L (1.20-3.80) 10^3/uL Monocytes # (Manual) 0.38 (0.30-0.80) 10^3/uL Eosinophils # (Manual) 0.00 (0.00-0.70) 10^3/uL Basophils # (Manual) 0.00 (0.00-0.10) 10^3/uL Sodium 137 (136-145) mmol/L Potassium 4.7 (3.5-5.1) mmol/L Chloride 106 (98-107) mmol/L Carbon Dioxide 24.6 (21.0-32.0) mmol/L Anion Gap 11.1 BUN 11.0 (7.0-18.0) mg/dL Creatinine 0.57 (0.55-1.02) mg/dL Est GFR ( Amer) >60 (>=60 mL/min/1.73m^2) Est GFR (Non-Af Amer) >60 (>=60 mL/min/1.73m^2) BUN/Creatinine Ratio 19.3 Glucose 131 H (74-106) mg/dL Lactate 2.1 H* (0.4-2.0) mmol/L Calcium 9.0 (8.5-10.1) mg/dL Total Bilirubin 1.9 H (0.2-1.0) mg/dL AST 66 H (15-37) U/L ALT 39 (14-59) U/L Alkaline Phosphatase 379 H (46-116) U/L Ammonia 73 H* (11-32) umol/L Troponin I High Sens 6.2 (4.0-51.3) pg/mL Total Protein 7.8 (6.4-8.2) g/dL Albumin 2.2 L (3.4-5.0) g/dL Globulin 5.6 g/dL Albumin/Globulin Ratio 0.4 Urine Color Lt. yellow (YELLOW) Urine Clarity Sl cloudy (CLEAR) Urine pH 7.0 (5.0-9.0) Ur Specific [place] <=1.005 A (1.005-1.025) Urine Protein Negative (NEG/TRACE) mg/dL Urine Glucose (UA) Negative (NEGATIVE) mg/dL Urine Ketones Negative (NEGATIVE) mg/dL Urine Occult Blood Moderate A (NEGATIVE) Urine Nitrite Negative (NEGATIVE) Urine Bilirubin Negative (NEGATIVE) Urine Urobilinogen 2.0 A (0.2-1.0) EU/dL Ur Leukocyte Esterase Large A (NEGATIVE) Urine RBC 10-20 A (0-2) #/HPF Urine WBC 50-75 A (NONE SEEN) #/HPF Ur Squamous Epith Cells Few A (NONE/RARE) #/LPF Urine Crystals None seen (None Seen) #/HPF Urine Bacteria Large A (NONE SEEN) #/HPF Urine Casts None seen (NONE SEEN) #/LPF Urine Mucus Moderate A (NONE SEEN) Ur Culture Indicated? Yes-[facility] Ethanol Quant <3 mg/dL Specimen Source Blood A.calcoaceticus-baumannii cmplx PCR Not detected (NOT DETECTE) Bacteroides fragilis Not detected (NOT DETECTE) Isabel albicans (PCR) Not detected (NOT DETECTE) Isabel auris (PCR) Not detected (NOT DETECTE) C. glabrata (PCR) Not detected (NOT DETECTE) C. krusei (PCR) Not detected (NOT DETECTE) C. parapsilosis (PCR) Not detected (NOT DETECTE) C. tropicalis (PCR) Not detected (NOT DETECTE) C. neoform/gattii (PCR) Not detected (NOT DETECTE) Enterobacterales (PCR) Not detected (NOT DETECTE) E. cloacae complex PCR Not detected (NOT DETECTE) Enterococc faecalis PCR Not detected (NOT DETECTE) Enterococc faecium PCR Not detected (NOT DETECTE) E. coli (PCR) Not detected (NOT DETECTE) H. influenzae (PCR) Not detected (NOT DETECTE) Klebsiella aerogenes (PCR) Not detected (NOT DETECTE) Klebsiella oxytoca PCR Not detected (NOT DETECTE) K. pneumoniae group (PCR) Not detected (NOT DETECTE) List. monocytogenes PCR Not detected (NOT DETECTE) N. meningitidis (PCR) Not detected (NOT DETECTE) Proteus spp. (copies/mL) Not detected (NOT DETECTE) Salmonella spp. (PCR) Not detected (NOT DETECTE) Serratia marcescens PCR Not detected (NOT DETECTE) Staphylococcus sp PCR Detected A* (NOT DETECTE) Staph aureus (PCR) Not detected (NOT DETECTE) mecA/C & MREJ Resist Gene Not applicable (NOT DETECTE) mecA/C-Methicil Resis Gene Not detected (NOT DETECTE) mcr-1 Colistin Res Gene PCR Not applicable (NOT DETECTE) Staph epidermidis (PCR) Detected A* (NOT DETECTE) Staph lugdunensis (TEM-PCR) Not detected (NOT DETECTE) S. maltophilia (PCR) Not detected (NOT DETECTE) Streptococcus sp PCR Not detected (NOT DETECTE) Strep agalactiae (PCR) Not detected (NOT DETECTE) Strep pneumoniae (PCR) Not detected (NOT DETECTE) S. pyogenes (PCR) Not detected (NOT DETECTE) P. aeruginosa (PCR) Not detected (NOT DETECTE) Diego/B-Vanco Res Genes Not applicable (NOT DETECTE) blaIMP Car res Gene PCR Not applicable (NOT DETECTE) KPC (blaKPC) Detect PCR Not applicable (NOT DETECTE) NDM (blaNDM) Detect PCR Not applicable (NOT DETECTE) OXA-48 Carbapenem Resis Gene (PCR) Not applicable (NOT DETECTE) blaVIM Car Res Gene PCR Not applicable (NOT DETECTE) CTX-M ESBL (PCR) Not applicable (NOT DETECTE) Discharge Plan Discharge Chief Complaint: Altered Mental Status Clinical Impression: Altered mental status, Hyperammonemia, Pyuria Patient Disposition: Admitted As Inpatient Discharge Date/Time: 09/15/24 01:30
[2024-09-14 21:21] VITALS: O2SAT 99
[2024-09-14 21:27] LABS: Glucose Urine UA NEGATIVE (NEGATIVE)
[2024-09-14 21:30] VITALS: BP 172/86
[2024-09-14 21:40] LABS: Cast Seen? NONE SEEN #/LPF (NONE SEEN); Crystals Seen? None Seen #/HPF (None Seen); Urine Culture Indicated YES-FRMC
[2024-09-14 21:59] LABS: Hematocrit 48.5 % (36.0-48.0); Hemoglobin 16.2 g/dL (12.0-16.0); Mean Corpuscular HGB Conc 33.4 g/dL (29.9-35.2); Mean Corpuscular Hemoglobin 29.7 pg (26.7-34.0); Mean Corpuscular Volume 89.0 fL (81.0-99.0); Platelet Count 94 10^3/uL (150-450); Red Blood Count 5.45 10^6/uL (4.20-5.40); White Blood Count 6.4 10^3/uL (4.0-11.0)
[2024-09-14 22:21] LABS: Anion Gap 11.1
[2024-09-14 22:23] LABS: Alanine Aminotransferase 39 U/L (14-59); Albumin Globulin Ratio 0.4; Albumin Level 2.2 g/dL (3.4-5.0); Alkaline Phosphatase 379 U/L (46-116); Aspartate Amino Transferase 66 U/L (15-37); Blood Urea Nitrogen 11.0 mg/dL (7.0-18.0); Calcium 9.0 mg/dL (8.5-10.1); Carbon Dioxide 24.6 mmol/L (21.0-32.0); Chloride 106 mmol/L (98-107); Estimated GFR (African America >60 (>=60 mL/min/1.73m^2); Estimated GFR (Non-African Ame >60 (>=60 mL/min/1.73m^2); Globulin 5.6 g/dL; Glucose 131 mg/dL (74-106); Potassium 4.7 mmol/L (3.5-5.1); Sodium 137 mmol/L (136-145); Total Protein 7.8 g/dL (6.4-8.2)
[2024-09-14 22:27] LABS: Basophils Abs Manual 0.00 10^3/uL (0.00-0.10); Basophils Percent Manual 0.0 % (0.2-2.0); Eosinophils Absolute Manual 0.00 10^3/uL (0.00-0.70); Eosinophils Percent Manual 0.0 % (0.9-7.0); Lymphocytes Absolute Manual 0.64 10^3/uL (1.20-3.80); Lymphocytes Percent Manual 10.0 % (20.5-60.0); Monocytes Absolute Manual 0.38 10^3/uL (0.30-0.80); Monocytes Percent Manual 6.0 % (1.7-12.0); Segmented Neut Absolute Manual 5.37 10^3/uL (1.4-6.5); Segmented Neutrophils % Manual 84.0 (43.0-75.0)
[2024-09-14 22:33] LABS: Ammonia 73 umol/L (11-32); Lactate/Lactic Acid 2.1 mmol/L (0.4-2.0)
[2024-09-15] VITALS (14 sets, daily range): BP systolic 129–175; BP diastolic 68–84; PULSE 78–98; TEMP 36.6–37; O2SAT 96–99; BMI 20.9
--- OUTSIDE RECORDS SUMMARY | 2024-09-15 01:38 | XMS_ITS | CCD ---
Author Organization [facility] CliniSyky Care Team Providers Care Criminal Lawyer Name Role Phone CT Procedure Practitioner Unavailab ADALBERTO Campbell Surgeon Unavailable [...] Care Unavailable JAVI, DR HAMMONDS Consulting Unavailable AJVI, DR HAMMONDS Consulting Unavailable MARY, DR DELUNA [...] Strong Primary Care Unavailable [place], Tondra Unavailable Laurent Clark Unavailable Mickey Lovett Unavailable MD Rain Hebert Primary Care Provider [place] NIGHT COURT MAGISTRATE Tona Bryson Attending Provider [phone] MD Mickey Lovett Other Provider MD Rain Hebert Primary Care Provider [phone] Map, NIGHT COURT MAGISTRATE Tondra K Attending Provider [phone] MD Nimesh Chin Attending Provider Nimesh Chin Unavailable MD Rain Hebert Primary Care Provider [place] NIGHT COURT MAGISTRATEWily Schulza Bryson Attending Provider MD Nimesh Chin Attending Provider NO FAMILY, PHYSICIAN Primary Care Provider Unava ilable MD Mickey Lovett Other Provider Al Gómez Unavailable Rain Hebert MD Primary Care Provider Nimesh Chin Unavailable MD Rain Hebert Primary Care Provider [place] NIGHT COURT MAGISTRATE Tona K Attending Provider NO FAMILY, PHYSICIAN Primary Care Provider Unava ilable MD Nimesh Chin Attending Provider [phone] MD Nimesh Chin Attending Provider [phone] JESSIE Lewis Primary Care Provider MD Mickey Lovett Other Provider [place] NIGHT [address] MAGISTRATE Tondra Massey Attending Provider NICOL Lewis-Jona Ward Primary Care Provider ALLY Elama Bryson Attending Provider MD Mickey Lovett Other Provider DO Harsha Wren Emergency Provider MD Danielle Sterling Admit Provider MD Danielle Glass Attending Provider Nimesh Chin MD Unavailable RAIN HEBERT Primary Care Unavailable SALLIE WEST ([place]) Referring Unavailable MD Arnoldo Arguello Attending Provider MD Nimesh Chin Other Provider Rain Hebert MD Primary Care Provider [phone] Joshua, ASSOCIATE PROFESSOR OF COMMUNICATION-C Chapis Ward Primary Care Provider ALLY Elam Attending Provider Joshua, ASSOCIATE PROFESSOR OF COMMUNICATION-C Chapis Ward Primary Care Provider MD Mickey [...] Willams Unavailable Nimesh Chin MD Unavailable Joshua ASSOCIATE PROFESSOR OF COMMUNICATION-C, Chapis Ward Primary Care Provider [phone] Harsha Wren DO Emergency Provider Sarah Wolf MD Admit Provider Sarah Helm MD Attending Provider Teodora Fajardo MD Other Provider Rubin Kang MD Other Provider Jillian Mohan APRN Other Provider Jasiel Issa DO Other Provider Tremayne Pak MD Other Provider [phone] George Arciniega MD Other Provider Tamanna Barajas MD Other Provider Roger Robbins DO Other Provider Jena Long MD Other Provider Solo Waite DO Other Provider Forest Quiroz MD Attending Provider [phone] Darion Goss DO Emergency Provider Jordan Thomson DO Attending Provider Roger Robbins DO Attending Provider RAIN HEBERT Primary Care Unavailable Narda'ANGUIANOJENA Bolanos S Referring Unavailable NOEMI LOCKETT Attending Unavailable RAIN HEBERT Primary Care Unavailable Narda'JENA ANGUIANO Referring Unavailable Harsha Wren DO Emergency Provider Gini Roberto MD, Digna Other Provider Roger Robbins DO Attending Provider Tremayne Pak MD Attending Provider [phone] Kraig Hubbard DO Other Provider Kali Mccrary MD Other Provider Ricardo Mena DO Other Provider Emely HOWE, Deshaun Emergency Provider [phone] Mack Carmona MD Admit Provider lAy Hooks MD Attending Provider Scotty, Teodora Consulting Unavailable Forest Quiroz Attending [...] Medication Allergies] Propensity to adverse reactions (disorder) [facility] Repository Medications Current Medications Medication Drug Class(es) [...] for 90 day(s), 180 EA, Refill(s) 0, [facility], 155.8, cm, 04/18/24 14:43:00 EST, Height/Length [...] day(s), # 270 cap(s), Refills(s) 3, Pharmacy: [facility], 155.8, cm, 01/13/24 14:55:00 EST, Height/Length [...] Daily, # 10 mL, Refills(s) 3, Pharmacy: [facility], 155.8, cm, 08/30/24 14:09:00 EDT, Height/Length [...] day(s), # 7 tab(s), Refills(s) 0, Pharmacy: [facility], 155.8, cm, 04/18/24 14:43:00 EST, Height/Length [...] DAILY, # 90 tab(s), Refills(s) 3, Pharmacy: [facility], 155.8, cm, 12/21/22 13:11:00 EDT, Height/Length [...] by mouth once daily. polyethylene glycol 3350 15025 mg powder for oral solution (20 sources) [...] 21, 2024 3:01pm 50 ml albumin human, custodial 250 mg/ml injection (12 sources) Human Serum [...] inh, Inhalation, q6hr, 8.5 gm, Refill(s) 0, [facility], 155.8, cm, 04/18/24 14:43:00 EST, [...] inh, Inhalation, q6hr, 8.5 gm, Refill(s) 0, [facility], 155.8, cm, 04/18/24 14:43:00 EST, [...] Cephalosporin Antibacterial Start: 2024 End: 2024 take [id number] capsule by mouth twice daily in the [...] 1:34pm Start: 12-25-2020 take 1 tablet by [facility] once daily cholecalciferol 5000 intl units [...] Repeat number: 1 take 1 capsule by [facility] every twenty-four hours take 1 capsule by [facility] every twelve hours Docusate Sodium 100 MG 1 capsule as needed Orally twice a day Active Docusate Sodium Active ergocalciferol 1.25 mg oral capsule (20 sources) Provitamin D2 Compound Start: 07-21-2023 End: 06-30-2024 Ergocalciferol (Vitamin D2) 1,250 mcg (50,000 unit) capsule Discontinued 79169 UNIT PO every week November 30, 2023 2:42pm June 30, 2024 10:44pm Start: 07-21-2023 End: 11-30-2023 Ergocalciferol (Vitamin D2) 1,250 mcg (50,000 unit) capsule Discontinued 64493 UNIT PO every week July 21, 2023 12:00am November 30, 2023 2:42pm Start: 07-21-2023 End: 11-30-2023 take 54217 [IU] by mouth every week Ergocalciferol (Vitamin D2) Discontinued 12890 UNIT PO every week July 21, 2023 12:00am November 30, 2023 2:42pm Start: 07-21-2023 take 37981 [IU] by m outh every week Ergocalciferol (Vitamin D2) Active 61321 UNIT PO every week July 21, 2023 [...] Daily, # 9 mL, Refills(s) 5, Pharmacy: [facility], 155.8, cm, 08/30/24 14:09:00 EDT, Height/Length [...] by mouth q 8 HR . MV-Min-Vit Q-Judc-Dpxtoq-Hb124 1,000-50 mg tbef (4 sources) MV-Min-Vit U-Dfoe-Rdimbv-Hb124 1,000-50 mg tbef Take by mouth. 0 [...] by mouth once daily Sod Phos Di, Power-K Phos Power (Phosphorous) 250 mg tablet Discontinued 2 TAB PO Daily April 20, 2023 1:33pm May 24, 2023 1:26am Start: 10-27-2022 End: 04-20-2023 take 4 tablets by mouth once daily Sod Phos Di, Power-K Phos Power (Phosphorous) 250 mg Tablet Discontinued 4 TAB PO Daily October 27, 2022 12:00am April 20, 2023 1:34pm Start: 07-14-2022 take 1 tablet by k[facility] every six hours Start: 07-13-2022 take 1 tablet by k[facility] three times daily potassium phosphate-sodium phosphate 250 mg-45 mg-298 mg oral tablet 1 tab(s), Oral, TID, Refill(s) 0, Oral, 0 Refill(s) Start Date: 07/13/22 Status: Ordered sennosides, custodial 8.6 mg oral tablet (2 sources) Start: [...] Repeat number: 1 take 0.5 tablet by [facility] twice daily Comment on above: Take [...] times a day with meals. vitamin a 79576 unt oral capsule (20 sources) Vitamin A [...] Chronic Comment on above: noted in 05/24/2023 [facility] [place] Summary page 1. added per OP [...] 2 Chronic Other aftercare (1 source) Other correction (current) drug therapy; Translations: [OTH MANAGER WOUND CARE CURRENT DRUG THERAPY] Onset: 2 Episodic Other aftercare (7 sources) superintendent terminal (current) use of insulin; Translations: [RESIDENTIAL CURRENT USE OF INSULIN] Onset: 1 Resolved: 2 Episodic Other aftercare (20 sources) Long-term current use of insulin; Translations: [superintendent terminal (current) use of insulin] Episodic Other aftercare [...] aftercare (12 sources) Insulin dose changed; Translations: [[facility] (current) use of insulin] Onset: 05-28-2023 05-31-2023 [...] NICOLE KELLEY PA-C Where: [facility] [address] [place] [address]- Wednesday 2:20 PM EDT With: Chapis Dumont Where: [address] [address]- Wednesday 2:30 PM EDT With: Where: [facility] Medicine [address] [address]- Medications What How Much When Why Instructions [...] Hypomagnesemia Hypophosphatemia Iron deficiency anemia Localized edema [facility] (current) use of insulin Metabolic encephalopathy Moderate [...] office v (more content not included)... Normal [facility] Family Medicine Office/Clini c Noteon 08-30-2024 Family Medicine Office/Clinic Note Family Medicine Office/Clinic Note [facility] Staff Teresa is a 64 year old female presenting with TCM: Feeling better since she has been home. Her daughter states she does not think the urinary retention has gotten better, her output seems low Hospital: [facility] [place]mission date: 08/19/24 Discharge date: 08/21/24 Symptoms [...] Daily, # 9 mL, Refills(s) 5, Pharmacy: [facility], 155.8, cm, 08/30/24 14:09:00 EDT, Height/Length Dosing, 61.8, kg, 08/30/24 14:15:00 EDT, Weight Dosing Misc Prescription, Handicap Placard, See Instructions, 1 EA, 0, 5 years, Supply TCM [facility] 14 day disch [id number] 2. Wheelchair dependent (Z99.3: Dependence on wheelchair) currently uses wheelchair. will order handicap placard Ordered: escitalopram, 10 mg = 1 tab(s), Oral, Daily, # 90 tab(s), Refills(s) 0 insulin degludec, 44 unit(s), SubCutaneous, Daily, # 9 mL, Refills(s) 5, Pharmacy: [facility], 155.8, cm, 08/30/24 14:09:00 EDT, Height/Length Dosing, 61.8, kg, 08/30/24 14:15:00 EDT, Weight Dosing Misc Prescription, Handicap Placard, See Instructions, 1 EA, 0, 5 years, Supply [employer] [facility] 14 disch [id number] 3. Hospital discharge follow-up (Z09: Encounter for [...] Daily, # 9 mL, Refills(s) 5, Pharmacy: [facility], 155.8, cm, 08/30/24 14:09:00 EDT, Height/Length Dosing, 61.8, kg, 08/30/24 14:15:00 EDT, Weight Dosing Misc Prescription, Handicap Placard, See Instructions, 1 EA, 0, 5 years, Supply [employer] [facility] 14 day disch 58665 4. Metabolic encephalopathy (G93.41: Metabolic encephalopathy) stable upon D/C from hospital. Ordered: escitalopram, 10 mg = 1 tab(s), Oral, Daily, # 90 tab(s), Refills(s) 0 insulin degludec, 44 unit(s), SubCutaneous, Daily, # 9 mL, Refills(s) 5, Pharmacy: [facility], 155.8, cm, 08/30/24 14:09:00 EDT, Height/Length Dosing, 61.8, kg, 08/30/24 14:15:00 EDT, Weight Dosing Misc Prescription, Handicap Placard, See Instructions, 1 EA, 0, 5 years, Supply TCM [facility] 14 disch [id number] 5. Urinary retention (R33.9: Retention of urine, unspecified) Newman catheter intact. will follow up with urology in 2 weeks. draining dark yellow urine Ordered: escitalopram, 10 mg = 1 tab(s), Oral, Daily, # 90 tab(s), Refills(s) 0 insulin degludec, 44 unit(s), SubCutaneous, Daily, # 9 mL, Refills(s) 5, Pharmacy: [facility], 155.8, cm, 08/30/24 14:09:00 EDT, Height/Length Dosing, 61.8, kg, 08/30/24 14:15:00 EDT, Weight Dosing Misc Prescription, Handicap Placard, See Instructions, 1 EA, 0, 5 years, Supply TCM [facility] 14 disch 70650 6. Biliary cirrhosis (K74.5: Biliary cirrhosis, unspecified) stable at this time Ordered: escitalopram, 10 mg = 1 tab(s), Oral, Daily, # 90 tab(s), Refills(s) 0 insulin degludec, 44 unit(s), SubCutaneous, Daily, # 9 mL, Refills(s) 5, Pharmacy: [facility], 155.8, cm, 08/30/24 14:09:00 EDT, Height/Length Dosing, 61.8, kg, 08/30/24 14:15:00 EDT, Weight Dosing Misc Prescription, Handicap Placard, See Instructions, 1 EA, 0, 5 years, Supply TCM [facility] 14 disch [id number] 7. Moderate major depression (F32.1: Major depressive disorder, single episode, moderate) pt has been through a lot with her health the last couple of months. is usually very independent and is trying to adjust to having people help her. with her vision loss she is unab (more content not included)... Normal [facility] Comment on above: Result Comment: Elec tronically Signed By: Chapis Dumont\.br\Date and Time Signed: 08/30/24 14:47 EDT X-ray reportOrdered By: Farrukh Lange on 08-23-2024 Study report [facility] [address] [place] [address] XRay Report Signed Patient: Teresa yLle MR#: [id number] : 1960 Acct:[id number] Age/Sex: 64 / F ADM Date: 5 Loc: [facility] Room: Type: [facility] CLI Attending Dr: Roger Robbins DO Copies to: Roger Robbins DO~ Ordering Provider: Roger Robbins DO Date of Service: 08/23/24 XR/XR femur RT 2V*: S72.141D - Displaced intertrochanteric fracture of right ... ([id number]) XR/XR pelvis 1-2V: S72.141D - Displaced intertrochanteric [...] Lange M.D. 08/23/2024 6:47 PM Dictation Location: [place] [address] Transcribed By: [facility] 08/23/241846 Dictated By: Navarro Lange MD 08/23/241844 Signed By: 08/23/241846 [facility] Work Phone: XR femur RT 2V*on 08-23-2024 XR femur RT 2V* [facility] [address] [place] [address] XRay Report Signed Patient: Teresa Lyle MR#: [id number] : 1960 Acct:[id number] Age/Sex: 64 / F ADM Date: 08/23/24 Loc: [facility] Room: Type: [facility] CL Attending Dr: Roger Robbins DO Copies to: Roger Robbins DO Ordering Provider: Roger Robbins DO Date of Service: 08/23/24 XR/XR femur RT 2V*: S72.141D - Displaced intertrochanteric fracture of right ... ([id number]) XR/XR pelvis 1-2V: S72.141D - Displaced intertrochanteric [...] Lange M.D. 08/23/2024 6:47 PM Dictation Location: [place] [address] Transcribed By: [facility] 08/23/241846 Dictated By: Navarro Lange MD 08/23/241844 Signed By: 08/23/241846 Normal [facility] Alanine aminotransferase [En zymatic activity/volume] in Serum or PlasmaOrdered By: Mack Carmona on 08-21-2024 ALT [Catalytic activity/Vol] 41 U/L Normal 7 [facility] Comment on above: Performed By: #### C MP ####[facility] [address] [place] [address] [facility] Albumin [Mass/volume] in Ser um or Plasma by Bromocresol green (BCG) dye binding methoOrdered By: Mack Carmona on 08-21-2024 Albumin BCG dye [Mass/Vol] 2.2 g/dL Low 3.5-5.7 [facility] Alkaline phosphatase [Enzyma tic activity/volume] in Serum or PlasmaOrdered By: Mack Carmona on 08-21-2024 ALP [Catalytic activity/Vol] 292 U/L High 34-104 [facility] Comment on above: Performed By: #### C MP ####[place] [id number] [facility] Anisocytosis [Presence] in B lood by Light microscopyOrdered By: Mack Carmona on 08-21-2024 Anisocytosis Ql (Bld) Slight Normal [facility] Comment on above: Performed By: #### D IFF CBC ####[place] [id number] [facility] Aspartate aminotransferase [ Enzymatic activity/volume] in Serum or PlasmaOrdered By: Mack Carmona on 08-21-2024 AST [Catalytic activity/Vol] 61 U/L High 13-39 [facility] Comment on above: Performed By: #### C MP ####[place] [id number] [facility] Band form neutrophils/100 le ukocytes in Blood by Manual countOrdered By: Mack Carmona on 08-21-2024 Band form neutrophils/100 WBC (Bld) 3 % Normal 0-5 [facility] Comment on above: Performed By: #### D IFF CBC ####[place] [id number] [facility] Basophils Auto (Bld) [#/Vol] Ordered By: Mack Carmona on 08-21-2024 Basophils (Bld) [#/Vol] N/A [facility] Basophils/100 WBC Auto (Bld) Ordered By: Mackmatthew Carmona on 08-21-2024 Basophils/100 WBC (Bld) N/A [facility] Bilirubin.total [Mass/volume ] in Serum or PlasmaOrdered By: Mack Carmona on 08-21-2024 Bilirubin [Mass/Vol] 1.1 mg/dL High 0.3-1.0 [facility] Comment on above: Performed By: #### C MP ####[facility] Calcium [Mass/volume] in Ser um or PlasmaOrdered By: Mack Carmona on 08-21-2024 Calcium [Mass/Vol] 7.6 mg/dL Low 8.6-10.3 [facility] Comment on above: Performed By: #### C MP ####[facility] Capillary blood glucose elis urement by glucometer (mass/volume)Ordered By: Aly Hooks on 08-21-2024 Glucose [Mass/Vol] 387 mg/dL Normal [facility] Comment on above: Random Glucose Refer ence Range is dependent on time and content of last meal. Glucose of more than 200 mg/dL in a nonstressed, ambulatory subject supports the diagnosis of Diabetes Mellitus. Result Comment: [place] om Glucose Reference Range is dependent on time and content of last meal. Glucose of more than 200 mg/dL in a nonstressed, ambulatory subject supports the diagnosis of Diabetes Mellitus. PERFORMED BY: [facility] [address] [place] [address] PATHOLOGIST KEY BED INSTALLER CHAD FREY M.D. Performed By: #### C RP, TSH3, ESR, BMP, BHOB, LIPASE, HEPATIC, SCAN CBC, PT #### [facility] [address] [place] [address] [place] Carbon dioxide, total [Moles /volume] in Serum or PlasmaOrdered By: Mack Carmona on 08-21-2024 CO2 [Moles/Vol] 25.9 mmol/L Normal 21.0-31.0 [facility] Comment on above: Performed By: #### C MP ####[facility] Chloride [Moles/volume] in S michael or PlasmaOrdered By: Mack Carmona on 08-21-2024 Chloride [Moles/Vol] 106 mmol/L Normal 98-107 [facility] Comment on above: Performed By: #### C MP ####[place] [address] [place] [address] [facility] Comprehensive Metabolic Pane gerhard 08-21-2024 Albumin [Mass/Vol] 2.2 g/dL Low 3.5-5.7 [facility] Comment on above: Performed By: #### C MP ####[place] [id number] [facility] Creatinine Clr Calc Pharmacy 96.11 Normal [facility] Comment on above: Result Comment: PERF ORMED BY: [facility] [address] [place] [id number] PATHOLOGIST KEY BED INSTALLER CHAD FREY M.D. Performed By: #### C MP ####[place] [id number] [facility] GFR/1.73 sq M.predicted MDRD (S/P/Bld) [Vol rate/Area] mL/min/{1.73_m2} Normal [facility] Comment on above: Performed By: #### C MP ####[address] [address] [facility] Creatinine [Mass/volume] in Serum or PlasmaOrdered By: Mack Carmona on 08-21-2024 Creatinine [Mass/Vol] 0.48 mg/dL Low 0.60-1.20 [facility] Comment on above: Performed By: #### C MP ####[place] [id number] [facility] Diff and CBCon 08-21-2024 Giant Platelet Tally 1 /100{WBC} Normal [facility] Comment on above: Performed By: #### D IFF CBC ####[place] [id number] [facility] Hypochromasia Slight Normal [facility] Comment on above: Performed By: #### D IFF CBC ####[address] [address] [facility] Mean Corpuscular HGB Conc 33.2 g/dL Normal 32.0-35.0 [facility] Comment on above: Performed By: #### D IFF CBC ####[place] [address] [place] [id number] [facility] Ovalocytes Slight Normal [facility] Comment on above: Performed By: #### D IFF CBC ####[address] [address] [facility] Platelet Estimate Decreased Normal Normal [facility] Comment on above: Performed By: #### D IFF CBC ####[place] [id number] [facility] Platelet Morphology Normal Normal Normal [facility] Comment on above: Result Comment: PERF ORMED BY: [facility] [address] [place] [address] PATHOLOGIST KEY BED INSTALLER CHAD FREY M.D. Performed By: #### D IFF CBC ####[place] [id number] [facility] Poikilocytosis Slight Normal [facility] Comment on above: Performed By: #### D IFF CBC ####[place] [id number] [facility] White Blood Count 4.0 [CFU]/mL Normal 3.8-11.[address] [facility] Comment on above: Performed By: #### D IFF CBC ####[place] [id number] [facility] Eosinophils Auto (Bld) [#/Vo l]Ordered By: Mack Carmona on 08-21-2024 Eosinophils (Bld) [#/Vol] N/A [facility] Eosinophils/100 WBC Auto (Bl d)Ordered By: Mack Carmona on 08-21-2024 Eosinophils/100 WBC (Bld) N/A [facility] Eosinophils/100 leukocytes i n Blood by Manual countOrdered By: Mack Carmona on 08-21-2024 Eosinophils/100 WBC (Bld) 3 % Normal 1-3 [facility] Comment on above: Performed By: #### D IFF CBC ####[facility] [address] [place] [id number] [facility] Erythrocyte distribution wid th [Ratio] by Automated countOrdered By: Mack Carmona on 08-21-2024 Erythrocyte distribution width (RBC) [Ratio] 25.1 % High 11.9-15.3 [facility] Comment on above: Performed By: #### D IFF CBC ####[facility] Erythrocyte morphology findi ng [Identifier] in BloodOrdered By: Mack Carmona on 08-21-2024 RBC morphology finding Nom (Bld) N/A [facility] Erythrocytes [#/volume] in B lood by Automated countOrdered By: Mack Carmona on 08-21-2024 RBC (Bld) [#/Vol] 4.40 10*6/uL Normal 3.60-5.00 [facility] Comment on above: Performed By: #### D IFF CBC ####[facility] [place] [id number] [facility] Giant platelets/100 leukocyt es [Ratio] in Blood by Manual countOrdered By: Mack Carmona on 08-21-2024 Giant platelets/100 WBC Manual cnt (Bld) [Ratio] 1 /100{WBC} [facility] Glucose Poct Glucometerson 0 08-21-2024 Glucose [Mass/Vol] 306 mg/dL Normal [facility] Comment on above: Result Comment: [place] Glucose Reference Range is dependent on time and content of last meal. Glucose of more than 200 mg/dL in a nonstressed, ambulatory subject supports the diagnosis of Diabetes Mellitus. PERFORMED BY: [facility] [address] [place] [address] PATHOLOGIST KEY BED INSTALLER CHAD FREY M.D. Performed By: #### C RP, TSH3, ESR, BMP, BHOB, LIPASE, HEPATIC, SCAN CBC, PT #### [facility] [address] Commemt1 Glu2: Cleaned Meter Normal [facility] Comment on above: Result Comment: PERF ORMED BY: [facility] [address] [place] [id number] PATHOLOGIST KEY BED INSTALLER CHAD FREY M.D. Performed By: #### G LUGM ####Point of Care testing, Glucose [Mass/Vol] 227 mg/dL Normal [facility] Comment on above: Result Comment: [place] om Glucose Reference Range is dependent on time and content of last meal. Glucose of more than 200 mg/dL in a nonstressed, ambulatory subject supports the diagnosis of Diabetes Mellitus. Performed By: #### G LUGM ####Point of Care testing, Glucose [Mass/volume] in Ser um or PlasmaOrdered By: Mack Carmona on 08-21-2024 Glucose [Mass/Vol] 280 mg/dL Significant change down 70-100 [facility] Comment on above: Delta: 174 on -625ADA recommended reference rangeRandom Glucose Reference Range is dependent on time and content of last meal. Glucose of more than 200 mg/dL in a nonstressed, ambulatory subject supports the diagnosis of Diabetes Mellitus. Result Comment: [place] Glucose Reference Range is dependent on time and content of last meal. Glucose of more than 200 mg/dL in a nonstressed, ambulatory subject supports the diagnosis of Diabetes Mellitus. ADA recommended reference range Performed By: #### C MP ####[place] [address] [place] [id number] [facility] Hematocrit [Volume Fraction] of Blood by Automated countOrdered By: Mack Carmona on 08-21-2024 Hematocrit (Bld) [Volume fraction] 39.2 % Normal 34.0-46.4 [facility] Comment on above: Performed By: #### D IFF CBC ####[facility] Hemoglobin [Mass/volume] in BloodOrdered By: Mack Carmona on 08-21-2024 Hemoglobin (Bld) [Mass/Vol] 13.0 g/dL Normal 11.8-15.4 [facility] Comment on above: Performed By: #### D IFF CBC ####[address] Hypochromia LM Ql (Bld)Order ed By: Mack Carmona on 08-21-2024 Hypochromia Ql (Bld) Slight [facility] Leukocytes [#/volume] correc lyly for nucleated erythrocytes in Blood by Automated counOrdered By: Mack Carmona on 08-21-2024 WBC corrected for nucl RBC Auto (Bld) [#/Vol] 4.0 10*3/uL 3.8-11.6 [facility] Leukocytes [#/volume] in Blo od by Automated countOrdered By: Mack Carmona on 08-21-2024 WBC (Bld) [#/Vol] 4.0 10*3/uL Normal 3.8-11.6 [facility] Comment on above: Performed By: #### D IFF CBC ####[address] Lymphocytes Auto (Bld) [#/Vo l]Ordered By: Mack Carmona on 08-21-2024 Lymphocytes (Bld) [#/Vol] N/A [facility] Lymphocytes/100 WBC Auto (Bl d)Ordered By: Mack Carmona on 08-21-2024 Lymphocytes/100 WBC (Bld) N/A [facility] Lymphocytes/100 leukocytes i n Blood by Manual countOrdered By: Mack Carmona on 08-21-2024 Lymphocytes/100 WBC (Bld) 15 % Low 18-42 [facility] Comment on above: Performed By: #### D IFF CBC ####[address] MCH [Entitic mass] by Automa lyly countOrdered By: Mack Carmona on 08-21-2024 MCH (RBC) [Entitic mass] 29.6 pg Normal 24.7-34.3 [facility] Comment on above: Performed By: #### D IFF CBC ####[address] MCHC Auto (RBC) [Mass/Vol]Or dered By: Mack Carmona on 08-21-2024 MCHC (RBC) [Mass/Vol] 33.2 g/dL 32.0-35.0 [facility] MCV [Entitic volume] by Auto mated countOrdered By: Mack Carmona on 08-21-2024 MCV (RBC) [Entitic vol] 89.1 fL Normal 80-100 [facility] Comment on above: Performed By: #### D IFF CBC ####[facility] [address] [place] [address] [facility] Monocytes Auto (Bld) [#/Vol] Ordered By: Mack Carmona on 08-21-2024 Monocytes (Bld) [#/Vol] N/A [facility] Monocytes/100 WBC Auto (Bld) Ordered By: Mack Carmona on 08-21-2024 Monocytes/100 WBC (Bld) N/A [facility] Monocytes/100 leukocytes in Blood by Manual countOrdered By: Mack Camrona on 08-21-2024 Monocytes/100 WBC (Bld) 5 % Normal 2-11 [facility] Comment on above: Performed By: #### D IFF CBC ####[facility] [address] [place] [id number] [facility] Neutrophils Auto (Bld) [#/Vo l]Ordered By: Mack Carmona on 08-21-2024 Neutrophils (Bld) [#/Vol] N/A [facility] Neutrophils/100 WBC Auto (Bl d)Ordered By: Mack Carmona on 08-21-2024 Neutrophils/100 WBC (Bld) N/A [facility] No Panel InformationOrdered By: Mack Carmona on 08-21-2024 Estimated GFR (CKD-EPI) > 60.0 mL/Min [facility] Creatinine Clearance (Chem 96.11 [facility] Bedside Glucose Comment Glu2: cleaned meter [facility] Nucleated erythrocytes [Pres ence] in Blood by Automated countOrdered By: Mack Carmona on 08-21-2024 Nucleated RBC Auto Ql (Bld) N/A [facility] Ovalocytes [Presence] in Blo od by Light microscopyOrdered By: Mack Carmona on 08-21-2024 Ovalocytes LM Ql (Bld) Slight [facility] Platelet adequacy [Presence] in Blood by Light microscopyOrdered By: Mack Carmona on 08-21-2024 Platelets LM Ql (Bld) Decreased Normal [facility] Platelet mean volume [Entiti c volume] in Blood by Automated countOrdered By: Mack Carmona on 08-21-2024 Platelet mean volume (Bld) [Entitic vol] 9.2 fL Normal 6.3-10.7 [facility] Comment on above: Performed By: #### D IFF CBC ####[place] [address] Platelet morphology finding [Identifier] in BloodOrdered By: Mack Carmona on 08-21-2024 Platelet morphology finding Nom (Bld) Normal Normal [facility] Platelets [#/volume] in Bloo d by Automated countOrdered By: Mack Carmona on 08-21-2024 Platelets (Bld) [#/Vol] 62 10*3/uL Low 150-450 [facility] Comment on above: Performed By: #### D IFF CBC ####[place] [id number] [facility] Poikilocytosis [Presence] in Blood by Light microscopyOrdered By: Mack Carmona on 08-21-2024 Poikilocytosis LM Ql (Bld) [facility] Potassium [Moles/volume] in Serum or PlasmaOrdered By: Mack Carmona on 08-21-2024 Potassium [Moles/Vol] 4.9 mmol/L Normal 3.5-5.1 [facility] Comment on above: Performed By: #### C MP ####[address] Protein [Mass/volume] in Ser um or PlasmaOrdered By: Mack Carmona on 06-23-2025 Protein [Mass/Vol] 5.6 g/dL Low 6.4-8.9 [facility] Comment on above: Performed By: #### C MP ####[address] Segmented neutrophils/100 le ukocytes in Blood by Manual countOrdered By: Mack Carmona on 08-21-2024 Segmented neutrophils/100 WBC (Bld) 74 % High 50-70 [facility] Comment on above: Performed By: #### D IFF CBC ####[address] Serum globulin measurement b y calculation (mass/volume)Ordered By: Mack Carmona on Globulin (S) [Mass/Vol] 3.4 g/dL Normal [facility] Comment on above: Performed By: #### C MP ####[address] Serum or plasma albumin/glob ulin mass ratioOrdered By: Mack Carmona on 08-21-2024 Albumin/Globulin [Mass ratio] 0.6 {ratio} [facility] Comment on above: Performed By: #### C MP ####[address] Serum or plasma anion gap de terminationOrdered By: Mack Carmona on 08-21-2024 Anion gap [Moles/Vol] 6.0 mmol/L Normal 6.0-15.0 [facility] Comment on above: Performed By: #### C MP ####[address] Sodium [Moles/volume] in Ser um or PlasmaOrdered By: Mack Carmona on 08-21-2024 Sodium [Moles/Vol] 133 mmol/L Low 136-145 [facility] Comment on above: Performed By: #### C MP ####[address] Urea nitrogen [Mass/volume] in Serum or PlasmaOrdered By: Mack Carmona on 08-21-2024 Urea nitrogen [Mass/Vol] 10 mg/dL Normal 7-25 [facility] Comment on above: Performed By: #### C MP ####[facility] A1C with Estimated Average G luon 08-20-2024 Glucose [Mass/Vol] 263 mg/dL Normal [facility] Comment on above: Result Comment: PERF ORMED BY: [place] [address] PATHOLOGIST KEY BED INSTALLER CHAD FREY M.D. Performed By: #### C RP, TSH3, ESR, BMP, BHOB, LIPASE, HEPATIC, SCAN CBC, PT #### [address] BioFire Not Detectedon 08-20 BioFire Not Detected Not detected Normal Not Detecte [facility] Comment on above: Result Comment: This is a duplicate RP2.1 COVID (PCR) result to be used for statistical tracking purpose only. PERFORMED BY: [place] [address] PATHOLOGIST KEY BED INSTALLER CHAD FREY M.D. Performed By: #### C RP, TSH3, ESR, BMP, BHOB, LIPASE, HEPATIC, SCAN CBC, PT #### [facility] [address] [place] [address] Blood estimated average gluc ose determination by estimation from glycated hemoglobinOrdered By: Mack Carmona on 08-20-2024 Average glucose Estimated from glycated hemoglobin (Bld) [Mass/Vol] 263 mg/dL [facility] COVID-19 Detected/Not Detect edOrdered By: Mack Carmona on 08-20-2024 SARS-CoV-2 (COVID-19) RNA QUYNH+non-probe Ql (Nph) Not detected Not Detecte [facility] Comment on above: This is a duplicate RP2.1 COVID (PCR) result to be used for statistical tracking purpose only. Cholesterol [Mass/volume] in Serum or PlasmaOrdered By: Mack Carmona on 08-20-2024 Cholesterol [Mass/Vol] 148 mg/dL Normal 140-200 [facility] Comment on above: Chol less than 200 m g/dl low riskChol 201-239 mg/dl borderline riskChol 240 mg/dl and greater high risk Order Comment: GOPI Epps Result Comment: Chol less than 200 mg/dl low risk Chol 201-239 mg/dl borderline risk Chol 240 mg/dl and greater high risk Performed By: #### V [id number], PTT, SCAN CBC, PT, TSH3 wRFLX, [id number], LIPID, CMP, MG ####[facility] [id number] [place] [address] [facility] Cholesterol in HDL [Mass/vol ume] in Serum or PlasmaOrdered By: Mack Carmona on 08-20-2024 Cholesterol in HDL [Mass/Vol] 58 mg/dL Normal 23-92 [facility] Comment on above: HDL CHOL ATP-III CLA SSIFICATION Cardiovascular RiskHDL > or equal to 60 mg/dL LOWHDL < 40 mg/dL HIGH Order Comment: GOPI Epps Result Comment: HDL CHOL ATP-III CLASSIFICATION Cardiovascular Risk HDL > or equal to 60 mg/dL LOW HDL < 40 mg/dL HIGH Performed By: #### V [id number], PTT, SCAN CBC, PT, TSH3 wRFLX, [id number], LIPID, CMP, MG ####[facility] [id number] [place] [address] [facility] Cholesterol in LDL Calc [Mas s/Vol]Ordered By: Mack Carmona on 08-20-2024 Cholesterol in LDL [Mass/Vol] 79 mg/dL 0-100 [facility] Comment on above: LDL ATP III CLASSIFI CATIONLDL less than 100 mg/dL OptimalLDL 100-129 mg/dL Near or above optimalLDL 130-159 mg/dL Borderline highLDL 160-189 mg/dL HighLDL greater than 189 mg/dL Very high Cholesterol in VLDL Calc [Ma ss/Vol]Ordered By: Mack Carmona on 08-20-2024 Cholesterol in VLDL [Mass/Vol] 11 mg/dL [facility] Comprehensive Metabolic Pane gerhard 06-22-2025 Albumin [Mass/Vol] 2.2 g/dL Low 3.5-5.7 [facility] Comment on above: Order Comment: FASTI NG Y Performed By: #### V [id number], PTT, SCAN CBC, PT, TSH3 wRFLX, [id number], LIPID, CMP, MG ####[place] [id number] [facility] Albumin/Globulin [Mass ratio] 0.6 {ratio} Normal [facility] Comment on above: Order Comment: FASTI NG Y Performed By: #### V [id number], PTT, SCAN CBC, PT, TSH3 wRFLX, [id number], LIPID, CMP, MG ####[place] [id number] [facility] ALP [Catalytic activity/Vol] 296 U/L High 34-104 [facility] Comment on above: Order Comment: FASTI NG Y Performed By: #### V [id number], PTT, SCAN CBC, PT, TSH3 wRFLX, [id number], LIPID, CMP, MG ####[address] ALT [Catalytic activity/Vol] 41 U/L Normal 7-52 [facility] Comment on above: Order Comment: FASTI NG Y Performed By: #### V [id number], PTT, SCAN CBC, PT, TSH3 wRFLX, [id number], LIPID, CMP, MG ####[address] Anion gap [Moles/Vol] 5.3 mmol/L Low 6.0-15.0 [facility] Comment on above: Order Comment: FASTI NG Y Performed By: #### V [id number], PTT, SCAN CBC, PT, TSH3 wRFLX, [id number], LIPID, CMP, MG ####[place] [id number] [facility] AST [Catalytic activity/Vol] 57 U/L High 13-39 [facility] Comment on above: Order Comment: FASTI NG Y Performed By: #### V [id number], PTT, SCAN CBC, PT, TSH3 wRFLX, [id number], LIPID, CMP, MG ####[address] Bilirubin [Mass/Vol] 1.0 mg/dL Normal 0.3-1.0 [facility] Comment on above: Order Comment: FASTI NG Y Performed By: #### V [id number], PTT, SCAN CBC, PT, TSH3 wRFLX, [id number], LIPID, CMP, MG ####[address] Calcium [Mass/Vol] 7.9 mg/dL Low 8.6-10.3 [facility] Comment on above: Order Comment: FASTI NG Y Performed By: #### V [id number], PTT, SCAN CBC, PT, TSH3 wRFLX, [id number], LIPID, CMP, MG ####[address] Chloride [Moles/Vol] 108 mmol/L High 98-107 [facility] Comment on above: Order Comment: FASTI NG Y Performed By: #### V [id number], PTT, SCAN CBC, PT, TSH3 wRFLX, [id number], LIPID, CMP, MG ####[address] CO2 [Moles/Vol] 25.8 mmol/L Normal 21.0-31.0 [facility] Comment on above: Order Comment: FASTI NG Y Performed By: #### V [id number], PTT, SCAN CBC, PT, TSH3 wRFLX, [id number], LIPID, CMP, MG ####[address] Creatinine [Mass/Vol] 0.34 mg/dL Low 0.60-1.20 [facility] Comment on above: Order Comment: FASTI NG Y Performed By: #### V [id number], PTT, SCAN CBC, PT, TSH3 wRFLX, [id number], LIPID, CMP, MG ####[facility] [address] Creatinine Clr Calc Pharmacy 135.69 Normal [facility] Comment on above: Order Comment: FASTI NG Y Performed By: #### V [id number], PTT, SCAN CBC, PT, TSH3 wRFLX, [id number], LIPID, CMP, MG ####[address] GFR/1.73 sq M.predicted MDRD (S/P/Bld) [Vol rate/Area] mL/min/{1.73_m2} Normal [facility] Comment on above: Order Comment: FASTI NG Y Performed By: #### V [id number], PTT, SCAN CBC, PT, TSH3 wRFLX, [id number], LIPID, CMP, MG ####[address] Globulin (S) [Mass/Vol] 3.5 g/dL Normal [facility] Comment on above: Order Comment: FASTI NG Y Performed By: #### V [id number], PTT, SCAN CBC, PT, TSH3 wRFLX, [id number], LIPID, CMP, MG ####[address] Glucose [Mass/Vol] 174 mg/dL Significant change down 70-100 [facility] Comment on above: Order Comment: FASTI NG Y Result Comment: [facility] Glucose Reference Range is dependent on time and content of last meal. Glucose of more than 200 mg/dL in a nonstressed, ambulatory subject supports the diagnosis of Diabetes Mellitus. ADA recommended reference range Performed By: #### V [id number], PTT, SCAN CBC, PT, TSH3 wRFLX, [id number], LIPID, CMP, MG ####[address] Potassium [Moles/Vol] 4.1 mmol/L Normal 3.5-5.1 [facility] Comment on above: Order Comment: FASTI NG Y Performed By: #### V [id number], PTT, SCAN CBC, PT, TSH3 wRFLX, [id number], LIPID, CMP, MG ####[facility] [place] [address] [facility] Protein [Mass/Vol] 5.7 g/dL Low 6.4-8.9 [facility] Comment on above: Order Comment: FASTI NG Y Performed By: #### V [id number], PTT, SCAN CBC, PT, TSH3 wRFLX, [id number], LIPID, CMP, MG ####[place] [address] [place] [id number] [facility] Sodium [Moles/Vol] 135 mmol/L Significant change down 136-145 [facility] Comment on above: Order Comment: FASTI NG Y Performed By: #### V [id number], PTT, SCAN CBC, PT, TSH3 wRFLX, [id number], LIPID, CMP, MG ####[place] [address] [place] [address] [facility] Urea nitrogen [Mass/Vol] 9 mg/dL Normal 7-25 [facility] Comment on above: Order Comment: FASTI NG Y Performed By: #### V [id number], PTT, SCAN CBC, PT, TSH3 wRFLX, [id number], LIPID, CMP, MG ####[place] [address] [place] [id number] [facility] Folate [Mass/volume] in Seru m or PlasmaOrdered By: Mack Carmona on 08-20-2024 Folate [Mass/Vol] 13.1 ng/mL >5.9 [facility] Comment on above: Folate reference ran ge: >5.9 ng/mlThe WHO technical consultation on folate and vitamin [id number] has determined that folate concentrations lessthan 4 ng/ml are considered deficient. Glucose Poct Glucometerson 0 08-20-2024 Commemt1 Glu2: Cleaned Meter Normal [facility] Comment on above: Result Comment: PERF ORMED BY: [facility] [address] [place] [id number] PATHOLOGIST KEY BED INSTALLER CHAD FREY M.D. Performed By: #### G LULS ####Point of Care testing, Glucose [Mass/Vol] 322 mg/dL Normal [facility] Comment on above: Result Comment: [place] Glucose Reference Range is dependent on time and content of last meal. Glucose of more than 200 mg/dL in a nonstressed, ambulatory subject supports the diagnosis of Diabetes Mellitus. Performed By: #### G LULS ####Point of Care testing, Glucose [Mass/Vol] 251 mg/dL Normal [facility] Comment on above: Result Comment: [place] Glucose Reference Range is dependent on time and content of last meal. Glucose of more than 200 mg/dL in a nonstressed, ambulatory subject supports the diagnosis of Diabetes Mellitus. PERFORMED BY: [place] [address] PATHOLOGIST KEY BED INSTALLER CHAD FREY M.D. Performed By: #### G LULS ####Point of Care testing, Glucose [Mass/Vol] 209 mg/dL Normal [facility] Comment on above: Result Comment: [place] Glucose Reference Range is dependent on time and content of last meal. Glucose of more than 200 mg/dL in a nonstressed, ambulatory subject supports the diagnosis of Diabetes Mellitus. PERFORMED BY: [place] [address] PATHOLOGIST KEY BED INSTALLER CHAD FREY M.D. Performed By: #### C RP, TSH3, ESR, BMP, BHOB, LIPASE, HEPATIC, SCAN CBC, PT #### [address] Glucose [Mass/Vol] 167 mg/dL Normal [facility] Comment on above: Result Comment: [place] Glucose Reference Range is dependent on time and content of last meal. Glucose of more than 200 mg/dL in a nonstressed, ambulatory subject supports the diagnosis of Diabetes Mellitus. PERFORMED BY: [place] [address] PATHOLOGIST KEY BED INSTALLER CHAD FREY M.D. Performed By: #### C RP, TSH3, ESR, BMP, BHOB, LIPASE, HEPATIC, SCAN CBC, PT #### [address] Hemoglobin A1c/Hemoglobin.to jesus alberto in BloodOrdered By: Mack Carmona on 08-20-2024 HbA1c (Bld) [Mass fraction] 10.8 % High 4.3-5.6 [facility] Comment on above: Increased risk for d iabetes: 5.7 - 6.4diabetes: >6.4glycemic control for adults with diabetes: <7.0 Result Comment: Incr eased risk for diabetes: 5.7 - 6.4 diabetes: >6.4 glycemic control for adults with diabetes: <7.0 Performed By: #### C RP, TSH3, ESR, BMP, BHOB, LIPASE, HEPATIC, SCAN CBC, PT #### [facility] [address] INR in Platelet poor plasma by Coagulation assayOrdered By: Mack Carmona on 08-20-2024 INR Coag (PPP) [Relative time] 1.1 {INR} Normal [facility] Comment on above: INR Therapeutic Rang e [...] 3 - 4.5 Performed By: #### V [id number], PTT, SCAN CBC, PT, TSH3 wRFLX, [id number], LIPID, CMP, MG ####[facility] [address] [place] [id number] [facility] Lipid Panelon 08-20-2024 LDL Cholesterol,Calculate d 79 mg/dL Normal 0-100 [facility] Comment on above: Order Comment: FASTI BELEN Y Result Comment: LDL ATP III CLASSIFICATION LDL less than 100 mg/dL Optimal LDL 100-129 mg/dL Near or above optimal LDL 130-159 mg/dL Borderline high LDL 160-189 mg/dL High LDL greater than 189 mg/dL Very high Performed By: #### V [id number], PTT, SCAN CBC, PT, TSH3 wRFLX, [id number], LIPID, CMP, MG ####[place] [address] Triglyceride w/Reflex 57 mg/dL Normal 0-149 [facility] Comment on above: Order Comment: FASTI NG Y Result Comment: TRIG ATP III CLASSIFICATION TRIG less than 150 mg/dL Normal TRIG 150-199 mg/dL Borderline high TRIG 200-500 mg/dL High TRIG greater than 500 mg/dL Very high Standard traceable to the Center for Disease Conrtrol and Prevention (CDC) test method. Performed By: #### V [id number], PTT, SCAN CBC, PT, TSH3 wRFLX, [id number], LIPID, CMP, MG ####[address] VLDL CHOLESTEROL 11 mg/dL Normal [facility] Comment on above: Order Comment: FASTI NG Y Performed By: #### V [id number], PTT, SCAN CBC, PT, TSH3 wRFLX, [id number], LIPID, CMP, MG ####[address] Magnesium [Mass/volume] in S michael or PlasmaOrdered By: Mack Carmona on 08-20-2024 Magnesium [Mass/Vol] 1.9 mg/dL Normal 1.9-2.7 [facility] Comment on above: Order Comment: FASTI NG Y Performed By: #### V [id number], PTT, SCAN CBC, PT, TSH3 wRFLX, [id number], LIPID, CMP, MG ####[address] Partial Thromboplastin Timeo n 08-20-2024 aPTT Coag (Bld) [Time] 30.8 s Normal 25.1-36.5 [facility] Comment on above: Result Comment: A he matocrit value greater than 55% may lead to inaccurate results in coagulation testing. Patients having hematocrit values >55% require a special collection tube for coagulation studies. Please contact the laboratory at [phone] for redraw instructions. PERFORMED BY: [facility] [address] [place] [address] PATHOLOGIST KEY BED INSTALLER CHAD FREY M.D. Performed By: #### V [id number], PTT, SCAN CBC, PT, TSH3 wRFLX, [id number], LIPID, CMP, MG ####[facility] [place] [address] [facility] Platelets Large [Presence] i n Blood by Light microscopyOrdered By: Mack Carmona on 08-20-2024 Platelets Large LM Ql (Bld) Slight [facility] Prothrombin time (PT)Ordered By: Mack Carmona on 08-20-2024 PT Coag (PPP) [Time] 12.5 s Normal 9.0-12.9 [facility] Comment on above: A hematocrit value g reater than 55% may lead to inaccurate results in coagulation testing. Patients having hematocrit values >55% require a special collection tube for coagulation studies. Please contact the laboratory at [phone] for redraw instructions. Result Comment: A he matocrit value greater than 55% may lead to inaccurate results in coagulation testing. Patients having hematocrit values >55% require a special collection tube for coagulation studies. Please contact the laboratory at [phone] for redraw instructions. Performed By: #### V [id number], PTT, SCAN CBC, PT, TSH3 wRFLX, [id number], LIPID, CMP, MG ####[facility] [place] [address] [facility] Respiratory (Upper) Panel, P CRon 08-20-2024 Respiratory [...] A H3 Blank Space -- PERFORMED BY: [place] [address] PATHOLOGIST KEY BED INSTALLER CHAD FREY M.D. Normal [facility] Comment on above: Performed By: #### C RP, TSH3, ESR, BMP, BHOB, LIPASE, HEPATIC, SCAN CBC, PT #### [facility] [address] Respiratory pathogens DNA an d RNA panel - Nasopharynx by QUYNH with non-probe detectionOrdered By: Mack Carmona on 08-20-2024 Respiratory pathogens DNA and RNA panel QUYNH+non-probe (Nph) [facility] Scan and CBCon 08-20-2024 Anisocytosis Ql (Bld) Marked Normal [facility] Comment on above: Performed By: #### V [id number], PTT, SCAN CBC, PT, TSH3 wRFLX, [id number], LIPID, CMP, MG ####[facility] [id number] Basophils (Bld) [#/Vol] 0.0 10*3/uL Normal 0.0-0.2 [facility] Comment on above: Performed By: #### V [id number], PTT, SCAN CBC, PT, TSH3 wRFLX, [id number], LIPID, CMP, MG ####[address] Basophils/100 WBC (Bld) 1.4 % Normal . [facility] Comment on above: Performed By: #### V [id number], PTT, SCAN CBC, PT, TSH3 wRFLX, [id number], LIPID, CMP, MG ####[address] Eosinophils (Bld) [#/Vol] 0.2 10*3/uL Normal 0.0-0.45 [facility] [facility] Comment on above: Performed By: #### V [id number], PTT, SCAN CBC, PT, TSH3 wRFLX, [id number], LIPID, CMP, MG ####[address] Eosinophils/100 WBC (Bld) 5.7 % Normal . [facility] Comment on above: Performed By: #### V [id number], PTT, SCAN CBC, PT, TSH3 wRFLX, [id number], LIPID, CMP, MG ####[address] Erythrocyte distribution width (RBC) [Ratio] 25.2 % High 11.9-15.3 [facility] Comment on above: Performed By: #### V [id number], PTT, SCAN CBC, PT, TSH3 wRFLX, [id number], LIPID, CMP, MG ####[address] Hematocrit (Bld) [Volume fraction] 40.1 % Normal 34.0-46.4 [facility] Comment on above: Performed By: #### V [id number], PTT, SCAN CBC, PT, TSH3 wRFLX, [id number], LIPID, CMP, MG ####[address] Hemoglobin (Bld) [Mass/Vol] 13.0 g/dL Normal 11.8-15.4 [facility] Comment on above: Performed By: #### V [id number], PTT, SCAN CBC, PT, TSH3 wRFLX, [id number], LIPID, CMP, MG ####[address] Large Platelets Slight Normal [facility] Comment on above: Result Comment: PERF ORMED BY: [facility] [address] [place] [address] PATHOLOGIST KEY BED INSTALLER CHAD FREY M.D. Performed By: #### V [id number], PTT, SCAN CBC, PT, TSH3 wRFLX, [id number], LIPID, CMP, MG ####[address] Lymphocytes (Bld) [#/Vol] 0.9 10*3/uL Low 1.00-4.8 [facility] Comment on above: Performed By: #### V [id number], PTT, SCAN CBC, PT, TSH3 wRFLX, [id number], LIPID, CMP, MG ####[address] Lymphocytes/100 WBC (Bld) 27.9 % Normal . [facility] Comment on above: Performed By: #### V [id number], PTT, SCAN CBC, PT, TSH3 wRFLX, [id number], LIPID, CMP, MG ####[address] MCH (RBC) [Entitic mass] 29.1 pg Normal 24.7-34.3 [facility] Comment on above: Performed By: #### V [id number], PTT, SCAN CBC, PT, TSH3 wRFLX, [id number], LIPID, CMP, MG ####[address] MCV (RBC) [Entitic vol] 90.3 fL Normal 80-100 [facility] Comment on above: Performed By: #### V [id number], PTT, SCAN CBC, PT, TSH3 wRFLX, [id number], LIPID, CMP, MG ####[address] Mean Corpuscular HGB Conc 32.3 g/dL Normal 32.0-35.0 [facility] Comment on above: Performed By: #### V [id number], PTT, SCAN CBC, PT, TSH3 wRFLX, [id number], LIPID, CMP, MG ####[address] Monocytes (Bld) [#/Vol] 0.3 10*3/uL Normal 0.0-0.8 [facility] Comment on above: Performed By: #### V [id number], PTT, SCAN CBC, PT, TSH3 wRFLX, [id number], LIPID, CMP, MG ####[address] Monocytes/100 WBC (Bld) 8.7 % Normal . [facility] Comment on above: Performed By: #### V [id number], PTT, SCAN CBC, PT, TSH3 wRFLX, [id number], LIPID, CMP, MG ####[address] Neutrophils (Bld) [#/Vol] 1.8 10*3/uL Normal 1.8-7.7 [facility] Comment on above: Performed By: #### V [id number], PTT, SCAN CBC, PT, TSH3 wRFLX, [id number], LIPID, CMP, MG ####[address] Neutrophils/100 WBC (Bld) 56.3 % Normal . [facility] Comment on above: Performed By: #### V [id number], PTT, SCAN CBC, PT, TSH3 wRFLX, [id number], LIPID, CMP, MG ####[address] NRBC% 0.1 /100{WBC} Normal 0-0.5 [facility] Comment on above: Performed By: #### V [id number], PTT, SCAN CBC, PT, TSH3 wRFLX, [id number], LIPID, CMP, MG ####[address] Platelet Estimate Decreased Normal Normal [facility] Comment on above: Performed By: #### V [id number], PTT, SCAN CBC, PT, TSH3 wRFLX, [id number], LIPID, CMP, MG ####[place] [id number] [facility] Platelet mean volume (Bld) [Entitic vol] 9.6 fL Normal 6.3-10.7 [facility] Comment on above: Performed By: #### V [id number], PTT, SCAN CBC, PT, TSH3 wRFLX, [id number], LIPID, CMP, MG ####[address] Platelets (Bld) [#/Vol] 54 10*3/uL Low 150-450 [facility] Comment on above: Performed By: #### V [id number], PTT, SCAN CBC, PT, TSH3 wRFLX, [id number], LIPID, CMP, MG ####[address] RBC (Bld) [#/Vol] 4.44 10*6/uL Normal 3.60-5.[address] [facility] Comment on above: Performed By: #### V [id number], PTT, SCAN CBC, PT, TSH3 wRFLX, [id number], LIPID, CMP, MG ####[place] [id number] [facility] WBC (Bld) [#/Vol] 3.2 10*3/uL Low 3.8-11.6 [facility] Comment on above: Performed By: #### V [id number], PTT, SCAN CBC, PT, TSH3 wRFLX, [id number], LIPID, CMP, MG ####[place] [id number] [place] White Blood Count 3.2 [CFU]/mL Low 3.8-11.[address] [facility] Comment on above: Performed By: #### V [id number], PTT, SCAN CBC, PT, TSH3 wRFLX, [id number], LIPID, CMP, MG ####[place] [address] Serum or plasma total choles terol/high density lipoprotein (HDL) cholesterol mass ratOrdered By: Mack Carmona on 08-20-2024 Cholesterol.total/Cho lesterol in HDL [Mass ratio] 2.6 {ratio} Normal <5.0 [facility] Comment on above: Order Comment: FASTI NG Y Performed By: #### V [id number], PTT, SCAN CBC, PT, TSH3 wRFLX, [id number], LIPID, CMP, MG ####[place] [address] Thyroid Stim Hormone w/Rflxo n 08-20-2024 Thyroid Stim Hormone w/Rflx 1.24 u[iU]/mL Normal 0.45-5.33 [facility] Comment on above: Order Comment: FASTI NG Y Performed By: #### V [id number], PTT, SCAN CBC, PT, TSH3 wRFLX, [id number], LIPID, CMP, MG ####[address] Thyrotropin [Units/volume] i n Serum or PlasmaOrdered By: Mack Carmona on 08-20-2024 TSH Qn 1.24 m[IU]/L 0.45-5.33 [facility] Triglyceride [Mass/volume] i n Serum or PlasmaOrdered By: Mack Carmona on 08-20-2024 Triglyceride [Mass/Vol] 57 mg/dL 0-149 [facility] Comment on above: TRIG ATP III CLASSIF ICATIONTRIG less than 150 mg/dL NormalTRIG 150-199 mg/dL Borderline highTRIG 200-500 mg/dL High TRIG greater than 500 mg/dL Very highStandard traceable to the Center for Disease Conrtrol and Prevention (CDC) test method. Vit. B12/Folate Profileon Folate 13.1 ng/mL Normal >5.9 [facility] Comment on above: Order Comment: FASTI NG Y Result Comment: Sophia te reference range: >5.9 ng/ml The WHO technical consultation on folate and vitamin b12 deficiencies has determined that folate concentrations less than 4 ng/ml are considered deficient. Performed By: #### V [id number], PTT, SCAN CBC, PT, TSH3 wRFLX, [id number], LIPID, CMP, MG ####[facility] [place] [address] [facility] Vitamin B12 ser/plasOrdered By: Mack Carmona on 08-20-2024 Cobalamin (Vitamin B12) [Mass/Vol] 1345 pg/mL High 180-914 [facility] Comment on above: Order Comment: FASTI NG Y Performed By: #### V [id number], PTT, SCAN CBC, PT, TSH3 wRFLX, [id number], LIPID, CMP, MG ####[place] [address] [place] [address] [facility] Vitamin D 25 Hydroxy Totalon 08-20-2024 Vitamin D 25 Hydroxy Total 26.3 ng/mL Low 30-100 [facility] Comment on above: Order Comment: FASTI NG Y Result Comment: DEVAN MIN D STATUS 25(OH)VITAMIN D RANGE (ng/mL) Deficient <20 Insufficient 20 to <30 Sufficient 30 to 100 Reference: Mynor MF,Benson NC, Bola GIRON, et al. Evaluation,treatment, and prevention of vitamin D deficiency; an Endocrine Society clinical practice guideline. JCEM. 2010; 96(7):1911-30. PERFORMED BY: [facility] [address] [place] [address] PATHOLOGIST KEY BED INSTALLER CHAD FREY M.D. Performed By: #### V [id number], PTT, SCAN CBC, PT, TSH3 wRFLX, [id number], LIPID, CMP, MG ####[place] [address] [place] [address] [facility] Vitamin D+Metabolites [Mass/ volume] in Serum or PlasmaOrdered By: Mack Carmona on 08-20-2024 Vitamin D+Metabolites [Mass/Vol] 26.3 ng/mL Low 30-100 [facility] Comment on above: VITAMIN D STATUS 25( [place])VITAMIN D RANGE (ng/mL) Deficient <20 Insufficient 20 to <30Sufficient 30 to 100Reference: Mynor MF,Benson NC, Bola GIRON, et al. Evaluation,treatment, and prevention of vitamin D deficiency; an Endocrine Society clinical practice guideline. JCEM. 2010; 96(7):1911-30. aPTT in Platelet poor plasma by Coagulation assayOrdered By: Mack Carmona on 08-20-2024 aPTT Coag (PPP) [Time] 30.8 s 25.1-36.5 [facility] Comment on above: A hematocrit value g reater than 55% may lead to inaccurate results in coagulation testing. Patients having hematocrit values >55% require a special collection tube for coagulation studies. Please contact the laboratory at [phone] for redraw instructions. Acetaminophen [Mass/volume] in Serum or PlasmaOrdered By: Deshaun Han on 08-19-2024 Acetaminophen [Mass/Vol] 7.9 ug/mL Low 10.0-30.0 [facility] Comment on above: Result Comment: PERF ORMED BY: [facility] [address] [place] [address] PATHOLOGIST KEY BED INSTALLER CHAD FREY M.D. Performed By: #### C RP, TSH3, ESR, BMP, BHOB, LIPASE, HEPATIC, SCAN CBC, PT #### [facility] [address] [place] [id number] [facility] Amphetamine Screen Ql (U)Ord ered By: Deshaun Han on 08-19-2024 Amphetamines Ql (U) Negative Negative [facility] Appearance of UrineOrdered B y: Deshaun Han on 08-19-2024 Appearance (U) Clear Normal Clear [facility] Comment on above: Order Comment: Name Collection Type:: Clean-Voided Midstream Performed By: #### C RP, TSH3, ESR, BMP, BHOB, LIPASE, HEPATIC, SCAN CBC, PT #### [facility] [address] Barbiturates [Presence] in U rine by Screen methodOrdered By: Deshaun Han on 08-19-2024 Barbiturates Screen Ql (U) Negative Negative [facility] Basic Metabolic Panelon 07-31 Anion gap [Moles/Vol] 8.5 mmol/L Normal 6.0-15.0 [facility] Comment on above: Performed By: #### C RP, TSH3, ESR, BMP, BHOB, LIPASE, HEPATIC, SCAN CBC, PT #### [facility] [address] Calcium [Mass/Vol] 8.0 mg/dL Low 8.6-10.3 [facility] Comment on above: Performed By: #### C RP, TSH3, ESR, BMP, BHOB, LIPASE, HEPATIC, SCAN CBC, PT #### [facility] [address] Chloride [Moles/Vol] 101 mmol/L Normal 98-107 [facility] Comment on above: Performed By: #### C RP, TSH3, ESR, BMP, BHOB, LIPASE, HEPATIC, SCAN CBC, PT #### [facility] [address] CO2 [Moles/Vol] 24.3 mmol/L Normal 21.0-31.0 [facility] Comment on above: Performed By: #### C RP, TSH3, ESR, BMP, BHOB, LIPASE, HEPATIC, SCAN CBC, PT #### [facility] [address] Creatinine [Mass/Vol] 0.59 mg/dL Low 0.60-1.20 [facility] Comment on above: Performed By: #### C RP, TSH3, ESR, BMP, BHOB, LIPASE, HEPATIC, SCAN CBC, PT #### [facility] [address] Creatinine Clr Calc Pharmacy 78.19 Normal [facility] Comment on above: Performed By: #### C RP, TSH3, ESR, BMP, BHOB, LIPASE, HEPATIC, SCAN CBC, PT #### [facility] [address] [place] [id number] [place] GFR/1.73 sq M.predicted MDRD (S/P/Bld) [Vol rate/Area] mL/min/{1.73_m2} Normal [facility] Comment on above: Performed By: #### C RP, TSH3, ESR, BMP, BHOB, LIPASE, HEPATIC, SCAN CBC, PT #### [facility] [address] [place] [id number] [place] Glucose [Mass/Vol] 571 mg/dL Off scale high 70-100 [facility] Comment on above: Result Comment: [...] BHOB, LIPASE, HEPATIC, SCAN CBC, PT #### [facility] [address] [place] [id number] [place] Potassium [Moles/Vol] 4.8 mmol/L Normal 3.5-5.1 [facility] Comment on above: Result Comment: Hemo lysis is present at a level that could interfere with the result. Contact lab if redraw is required Performed By: #### C RP, TSH3, ESR, BMP, BHOB, LIPASE, HEPATIC, SCAN CBC, PT #### [facility] [address] [place] [address] [place] Sodium [Moles/Vol] 129 mmol/L Low 136-145 [facility] Comment on above: Performed By: #### C RP, TSH3, ESR, BMP, BHOB, LIPASE, HEPATIC, SCAN CBC, PT #### [facility] [address] [place] [address] [place] Urea nitrogen [Mass/Vol] 12 mg/dL Normal 7-25 [facility] Comment on above: Performed By: #### C RP, TSH3, ESR, BMP, BHOB, LIPASE, HEPATIC, SCAN CBC, PT #### [facility] [address] Benzodiazepines Screen Ql (U )Ordered By: Deshaun Han on 08-19-2024 Benzodiazepines Ql (U) Negative Negative [facility] Benzoylecgonine [Presence] i n Urine by Screen methodOrdered By: Deshaun Han on 08-19-2024 Benzoylecgonine Screen Ql (U) Negative Negative [facility] Beta Hydroxybuterateon 08-19 Beta Hydroxybuterate 0.15 mmol/L Normal 0.02-0.27 [facility] Comment on above: Performed By: #### C RP, TSH3, ESR, BMP, BHOB, LIPASE, HEPATIC, SCAN CBC, PT ####[facility] [id number] Beta hydroxybutyrate [Moles/ volume] in Serum or PlasmaOrdered By: Deshaun Han on 08-19-2024 Beta hydroxybutyrate [Moles/Vol] 0.15 mmol/L 0.02-0.27 [facility] Bilirubin Test strip Ql (U)O rdered By: Deshaun Han on 08-19-2024 Bilirubin Ql (U) Negative Negative [facility] Bilirubin.direct [Mass/volum e] in Serum or PlasmaOrdered By: Deshaun Han on 08-19-2024 Bilirubin.direct [Mass/Vol] 0.30 mg/dL High 0.03-0.18 [facility] Blood Cultureon 08-19-2024 Bacteria identified Cx Nom (Bld) NO GROWTH 5 DAYS PERFORMED BY: [place] [address] PATHOLOGIST KEY BED INSTALLER CHAD Sosa [facility] Comment on above: Performed By: #### C UBLD ####[facility] [id number] Bacteria identified Cx Nom (Bld) NO GROWTH 5 DAYS PERFORMED BY: [address] [place] [address] PATHOLOGIST KEY BED INSTALLER CHAD Sosa [facility] Comment on above: Performed By: #### C UBLD ####[address] C reactive protein [Mass/vol ume] in Serum or PlasmaOrdered By: Deshaun Han on 08-19-2024 CRP [Mass/Vol] 1.3 mg/dL High 0.0-0.5 [facility] C-Reactive Proteinon 025 C-Reactive Protein 1.3 mg/dL High 0.0-0.5 [facility] Comment on above: Performed By: #### C RP, TSH3, ESR, BMP, BHOB, LIPASE, HEPATIC, SCAN CBC, PT #### [address] Performed By: #### C RP, TSH3, ESR, BMP, BHOB, LIPASE, HEPATIC, SCAN CBC, PT ####[address] abdomen pelvis w conon CT abdomen pelvis w con [facility] [place] [address] CT Scan Report Signed Patient: Teresa Lyle MR#: [id number] : 1960 Acct:[id number] Age/Sex: 64 / F ADM Date: 08/19/24 Loc: Room: [address] [place] [address] Type: DIS INOo Attending Dr: Aly Hooks [...] Jr., DJordanaOJordana 08/19/2024 4:25 PM Dictation Location: [place] [address] Transcribed By: [facility] 08/19/24 1625 Dictated By: Rubin Aaron Jr, DO 08/19/24 1614 Signed By: 08/19/24 1625 Normal [facility] CT head/brain wo conon 08-19 CT head/brain wo con [facility] [place] [address] [place] [address] CT Scan Report Signed Patient: Teresa Lyle MR#: [id number] : 1960 Acct:[id number] Age/Sex: 64 / F ADM Date: 08/19/24 Loc: 3T Room: [address] [place] [address] Type: DIS INOo Attending Dr: Aly Hooks [...] Jr., D.OJordana 08/19/2024 4:14 PM Dictation Location: [facility]--18 Transcribed By: [facility] 08/19/24 161 Dictated By: Rubin Aaron Jr, DO 08/19/24 1612 Signed By: 08/19/24 1614 Normal [facility]ician [facility] Cannabinoids [Presence] in U rine by Screen methodOrdered By: Deshaun Han on 08-19-2024 Cannabinoids Screen Ql (U) Negative Negative [facility] Comment on above: These are unconfirme d results and should not be used for legal purposes. Drug Cut-Off Concentration: AMPH 1000 ng/mL ITM 200 ng/mL DONI 200 ng/mL COCM 300 ng/mL OP 300 ng/mL PCP 25 ng/mL THC 20 ng/mL Color of Urine by AutoOrdere d By: Deshaun Han on 08-19-2024 Color (U) Light-yellow Normal Yellow [facility] Comment on above: Order Comment: Name Collection Type:: Clean-Voided Midstream Performed By: #### C RP, TSH3, ESR, BMP, BHOB, LIPASE, HEPATIC, SCAN CBC, PT #### [facility] [address] [place] [id number] [facility] Drug Screen,Urineon 08-20-19 Amphetamine Screen,Urine Negative Normal Negative [facility] Comment on above: Performed By: #### C RP, TSH3, ESR, BMP, BHOB, LIPASE, HEPATIC, SCAN CBC, PT #### [facility] [address] [place] [address] [facility] Barbiturate Screen,Urine Negative Normal Negative [facility] Comment on above: Performed By: #### C RP, TSH3, ESR, BMP, BHOB, LIPASE, HEPATIC, SCAN CBC, PT #### [facility] [address] Benzodiazepines Screen,Urine Negative Normal Negative [facility] Comment on above: Performed By: #### C RP, TSH3, ESR, BMP, BHOB, LIPASE, HEPATIC, SCAN CBC, PT #### [address] Cannabinoid Screen,Urine Negative Normal Negative [facility] Comment on above: Result Comment: Thes e are unconfirmed results and should not be used for legal purposes. Drug Cut-Off Concentration: AMPH 1000 ng/mL TIM 200 ng/mL DONI 200 ng/mL COCM 300 ng/mL OP 300 ng/mL PCP 25 ng/mL THC 20 ng/mL PERFORMED BY: [place] [address] PATHOLOGIST KEY BED INSTALLER CHAD FERY M.D. Performed By: #### C RP, TSH3, ESR, BMP, BHOB, LIPASE, HEPATIC, SCAN CBC, PT #### [address] Cocaine Screen,Urine Negative Normal Negative [facility] Comment on above: Performed By: #### C RP, TSH3, ESR, BMP, BHOB, LIPASE, HEPATIC, SCAN CBC, PT #### [address] Opiate Screen,Urine Negative Normal Negative [facility] Comment on above: Performed By: #### C RP, TSH3, ESR, BMP, BHOB, LIPASE, HEPATIC, SCAN CBC, PT #### [address] Phencyclidine Screen,Urine Negative Normal Negative [facility] Comment on above: Performed By: #### C RP, TSH3, ESR, BMP, BHOB, LIPASE, HEPATIC, SCAN CBC, PT #### [address] ECG 12 lead ECG 08-19-2024 ECG 12 lead ECG [facility] [place] [address] [place] [address] Electrocardiograph Report Signed Patient: Teresa Lyle MR#: [id number] : 1960 Acct:[id number] Age/Sex: 64 / F ADM Date: 08/19/24 Loc: Room: [address] [place] [address] Type: ADM IN Attending Dr: Mack Carmona [...] By Naomi Torre DO 0143 Normal [facility] Erythrocyte Sedimentation Ra tobias 08-19-2024 ESR (Bld) [Velocity] 59 mm/h High 0-29 [facility] Comment on above: Result Comment: PERF ORMED BY: [place] [address] PATHOLOGIST KEY BED INSTALLER CHAD FREY M.D. Performed By: #### C RP, TSH3, ESR, BMP, BHOB, LIPASE, HEPATIC, SCAN CBC, PT ####[facility] [id number] [place] [id number] [facility] Erythrocyte sedimentation ra te by Photometric methodOrdered By: Deshaun Han on 08-19-2024 ESR Photometric method (Bld) [Velocity] 59 mm/hr High 0-29 [facility] Ethanol [Mass/volume] in Ser um or PlasmaOrdered By: Deshaun Han on 08-19-2024 Ethanol [Mass/Vol] mg/dL Normal [facility] Comment on above: Performed By: #### C RP, TSH3, ESR, BMP, BHOB, LIPASE, HEPATIC, SCAN CBC, PT #### [address] Ethyl Alcohol Profileon 06-2 Percent Ethanol Not performed Normal [facility] Comment on above: Result Comment: PERF ORMED BY: [place] [address] PATHOLOGIST KEY BED INSTALLER CHAD FREY M.D. Performed By: #### C RP, TSH3, ESR, BMP, BHOB, LIPASE, HEPATIC, SCAN CBC, PT #### [address] Glucose Poct Glucometerson 0 08-19-2024 Glucose [Mass/Vol] 396 mg/dL Normal [facility] Comment on above: Result Comment: [place] om Glucose Reference Range is dependent on time and content of last meal. Glucose of more than 200 mg/dL in a nonstressed, ambulatory subject supports the diagnosis of Diabetes Mellitus. PERFORMED BY: [place] [address] PATHOLOGIST KEY BED INSTALLER CHAD FREY M.D. Performed By: #### G LULS ####Point of Care testing, Commemt1 Normal [facility] Comment on above: Result Comment: Glu2 : WILL NOTIFY DR/RN PERFORMED BY: [place] [address] PATHOLOGIST KEY BED INSTALLER CHAD FREY M.D. Performed By: #### C RP, TSH3, ESR, BMP, BHOB, LIPASE, HEPATIC, SCAN CBC, PT #### [address] Glucose [Mass/Vol] 424 mg/dL Off scale high [facility] Comment on above: Result Comment: [place] Glucose Reference Range is dependent on time and content of last meal. Glucose of more than 200 mg/dL in a nonstressed, ambulatory subject supports the diagnosis of Diabetes Mellitus. Performed By: #### C RP, TSH3, ESR, BMP, BHOB, LIPASE, HEPATIC, SCAN CBC, PT #### [facility] [address] Glucose [Mass/volume] in Uri ne by Test stripOrdered By: Deshaun Han on 08-19-2024 Glucose Test strip (U) [Mass/Vol] >=1000 mg/dL High Normal [facility] Hemoglobin Test strip Ql (U) Ordered By: Deshaun Han on 08-19-2024 Hemoglobin Ql (U) Negative Negative [facility] Hepatic Panelon 08-19-2024 Albumin [Mass/Vol] 2.6 g/dL Low 3.5-5.7 [facility] Comment on above: Performed By: #### C RP, TSH3, ESR, BMP, BHOB, LIPASE, HEPATIC, SCAN CBC, PT #### [facility] [address] Albumin/Globulin [Mass ratio] 0.7 {ratio} Normal [facility] Comment on above: Performed By: #### C RP, TSH3, ESR, BMP, BHOB, LIPASE, HEPATIC, SCAN CBC, PT #### [facility] [address] ALP [Catalytic activity/Vol] 345 U/L High 34-104 [facility] Comment on above: Performed By: #### C RP, TSH3, ESR, BMP, BHOB, LIPASE, HEPATIC, SCAN CBC, PT #### [facility] [address] ALT [Catalytic activity/Vol] 46 U/L Normal 7-52 [facility] Comment on above: Performed By: #### C RP, TSH3, ESR, BMP, BHOB, LIPASE, HEPATIC, SCAN CBC, PT #### [address] AST [Catalytic activity/Vol] 70 U/L High 13-39 [facility] Comment on above: Performed By: #### C RP, TSH3, ESR, BMP, BHOB, LIPASE, HEPATIC, SCAN CBC, PT #### [facility] [address] Bilirubin [Mass/Vol] 1.4 mg/dL High 0.3-1.0 [facility] Comment on above: Result Comment: Samp les from patients who have taken Naproxen have shown spurious elevation in Total Bilirubin levels. A metabolite of Naproxen, O-desmethylnaproxen, has been shown to interfere with the Jendrassik-Grof method for measuring Total Bilirubin. Performed By: #### C RP, TSH3, ESR, BMP, BHOB, LIPASE, HEPATIC, SCAN CBC, PT #### [address] Bilirubin,Indirect 1.1 mg/dL Normal [facility] Comment on above: Performed By: #### C RP, TSH3, ESR, BMP, BHOB, LIPASE, HEPATIC, SCAN CBC, PT #### [address] Bilirubin.indirect [Mass/Vol] 0.30 mg/dL High 0.03-0.18 [facility] Comment on above: Performed By: #### C RP, TSH3, ESR, BMP, BHOB, LIPASE, HEPATIC, SCAN CBC, PT #### [address] Globulin (S) [Mass/Vol] 4.0 g/dL Normal [facility] Comment on above: Performed By: #### C RP, TSH3, ESR, BMP, BHOB, LIPASE, HEPATIC, SCAN CBC, PT #### [address] Protein [Mass/Vol] 6.6 g/dL Normal 6.4-8.9 [facility] Comment on above: Performed By: #### C RP, TSH3, ESR, BMP, BHOB, LIPASE, HEPATIC, SCAN CBC, PT #### [address] Ketones [Presence] in Urine by Test stripOrdered By: Deshaun Han on 08-19-2024 Ketones Ql (U) Negative Normal Negative [facility] Comment on above: Order Comment: Name Collection Type:: Clean-Voided Midstream Performed By: #### C RP, TSH3, ESR, BMP, BHOB, LIPASE, HEPATIC, SCAN CBC, PT #### [facility] [address] Lactate [Moles/volume] in Se rum or PlasmaOrdered By: Deshaun Han on 08-19-2024 Lactate [Moles/Vol] 2.8 mmol/L Critically high 0.5-1.9 [facility] Comment on above: Critical Result : Ca lled to and read back by: COCO NEWMAN at: 08/19/2024 19:35:53 by:LFMLactic Acid reference range has been updated to 0.5 1.9 mmol/L and the critical range of 2.0 or greater. Lactic Acidon 08-19-2024 Lactate [Moles/Vol] 2.1 mmol/L Off scale high 0.5-1.9 [facility] Comment on above: Result Comment: Crit ical Result : Called to and read back by: TERESITA YOUNG at: 08/19/2024 15:25:19 by:LFM Lactic Acid reference range has been updated to 0.5 ? 1.9 mmol/L and the critical range of 2.0 or greater. PERFORMED BY: [place] [address] PATHOLOGIST KEY BED INSTALLER CHAD FREY M.D. Performed By: #### L ACTIC ####[facility] [id number] [place] [id number] [facility] Lactic Acid Reflexon 025 Lactic Acid Reflex 2.8 mmol/L Off scale high 0.5-1.9 [facility] Comment on above: Result Comment: Crit ical Result : Called to and read back by: COCO NEWMAN at: 08/19/2024 19:35:53 by:LFM Lactic Acid reference range has been updated to 0.5 ? 1.9 mmol/L and the critical range of 2.0 or greater. PERFORMED BY: [place] [address] PATHOLOGIST KEY BED INSTALLER CHAD FREY M.D. Performed By: #### C RP, TSH3, ESR, BMP, BHOB, LIPASE, HEPATIC, SCAN CBC, PT #### [facility] [address] Leukocyte esterase [Presence ] in Urine by Test stripOrdered By: Deshaun Han on 08-19-2024 Leukocyte esterase Test strip Ql (U) Negative Normal Negative [facility] Comment on above: Order Comment: Name Collection Type:: Clean-Voided Midstream Performed By: #### C RP, TSH3, ESR, BMP, BHOB, LIPASE, HEPATIC, SCAN CBC, PT #### [facility] [address] Lipase [Enzymatic activity/v olume] in Serum or PlasmaOrdered By: Deshaun Han on 08-19-2024 Lipase [Catalytic activity/Vol] 26.0 U/L Normal 11.0-82.0 [facility] Comment on above: Performed By: #### C RP, TSH3, ESR, BMP, BHOB, LIPASE, HEPATIC, SCAN CBC, PT #### [facility] [address] Monocyte distribution width [Entitic volume] in Blood by AutomatedOrdered By: Deshaun Han on 08-19-2024 Monocyte distribution width Auto (Bld) [Entitic vol] 19.02 % 0.00-20.00 [facility] Nitrite Test strip Ql (U)Ord ered By: Deshaun Han on 08-19-2024 Nitrite Ql (U) Negative Negative [facility] Opiates [Presence] in Urine by Screen methodOrdered By: Deshaun Han on 08-19-2024 Opiates Screen Ql (U) Negative Negative [facility] Phencyclidine Screen Ql (U)O rdered By: Deshaun Han on 08-19-2024 Phencyclidine Ql (U) Negative Negative [facility] Polychromasia [Presence] in Blood by Light microscopyOrdered By: Deshaun Han on 08-19-2024 Polychromasia LM Ql (Bld) Moderate [facility] Protein Test strip (U) [Mass /Vol]Ordered By: Deshaun Han on 08-19-2024 Protein (U) [Mass/Vol] Negative Negative [facility] Prothrombin Time INRon 08-19 INR Coag (PPP) [Relative time] 1.2 {INR} Normal [facility] Comment on above: Result Comment: [...] heart valves: 3 - 4.5 PERFORMED BY: [place] [address] PATHOLOGIST KEY BED INSTALLER CHAD FREY M.D. Performed By: #### C RP, TSH3, ESR, BMP, BHOB, LIPASE, HEPATIC, SCAN CBC, PT #### [place] [id number] [facility] PT Coag (PPP) [Time] 13.5 s High 9.0-12.9 [facility] Comment on above: Result Comment: A he matocrit value greater than 55% may lead to inaccurate results in coagulation testing. Patients having hematocrit values >55% require a special collection tube for coagulation studies. Please contact the laboratory at [phone] for redraw instructions. Performed By: #### C RP, TSH3, ESR, BMP, BHOB, LIPASE, HEPATIC, SCAN CBC, PT #### [place] [id number] [place] Salicylateon 08-19-2024 Salicylate <1.5 Low 15.0-30.0 [facility] Comment on above: Result Comment: Carmencita ents treated with Sulfasalazine may generate a false high result for Salicylate. Performed By: #### C RP, TSH3, ESR, BMP, BHOB, LIPASE, HEPATIC, SCAN CBC, PT #### [place] [address] [place] Salicylates [Mass/volume] in Serum or PlasmaOrdered By: Deshaun Han on 08-19-2024 Salicylates [Mass/Vol] mg/dL Low 15.0-30.0 [facility] Comment on above: Patients treated wit h Sulfasalazine may generate a false high result for Salicylate. Scan and CBCon 08-19-2024 Anisocytosis Ql (Bld) Slight Normal [facility] Comment on above: Performed By: #### C RP, TSH3, ESR, BMP, BHOB, LIPASE, HEPATIC, SCAN CBC, PT #### [address] Basophils (Bld) [#/Vol] 0.0 10*3/uL Normal 0.0-0.2 [facility] Comment on above: Performed By: #### C RP, TSH3, ESR, BMP, BHOB, LIPASE, HEPATIC, SCAN CBC, PT #### [address] Basophils/100 WBC (Bld) 0.8 % Normal . [facility] Comment on above: Performed By: #### C RP, TSH3, ESR, BMP, BHOB, LIPASE, HEPATIC, SCAN CBC, PT #### [address] Eosinophils (Bld) [#/Vol] 0.1 10*3/uL Normal 0.0-0.45 [facility] Comment on above: Performed By: #### C RP, TSH3, ESR, BMP, BHOB, LIPASE, HEPATIC, SCAN CBC, PT #### [address] Eosinophils/100 WBC (Bld) 2.6 % Normal . [facility] Comment on above: Performed By: #### C RP, TSH3, ESR, BMP, BHOB, LIPASE, HEPATIC, SCAN CBC, PT #### [address] Erythrocyte distribution width (RBC) [Ratio] 25.2 % High 11.9-15.3 [facility] Comment on above: Performed By: #### C RP, TSH3, ESR, BMP, BHOB, LIPASE, HEPATIC, SCAN CBC, PT #### [address] Hematocrit (Bld) [Volume fraction] 40.2 % Normal 34.0-46.4 [facility] Comment on above: Performed By: #### C RP, TSH3, ESR, BMP, BHOB, LIPASE, HEPATIC, SCAN CBC, PT #### [address] Hemoglobin (Bld) [Mass/Vol] 13.2 g/dL Normal 11.8-15.4 [facility] Comment on above: Performed By: #### C RP, TSH3, ESR, BMP, BHOB, LIPASE, HEPATIC, SCAN CBC, PT #### [address] Hypochromasia Slight Normal [facility] Comment on above: Performed By: #### C RP, TSH3, ESR, BMP, BHOB, LIPASE, HEPATIC, SCAN CBC, PT #### [address] Lymphocytes (Bld) [#/Vol] 0.8 10*3/uL Low 1.00-4.8 [facility] Comment on above: Performed By: #### C RP, TSH3, ESR, BMP, BHOB, LIPASE, HEPATIC, SCAN CBC, PT #### [address] Lymphocytes/100 WBC (Bld) 23.3 % Normal . [facility] Comment on above: Performed By: #### C RP, TSH3, ESR, BMP, BHOB, LIPASE, HEPATIC, SCAN CBC, PT #### [address] MCH (RBC) [Entitic mass] 29.7 pg Normal 24.7-34.3 [facility] Comment on above: Performed By: #### C RP, TSH3, ESR, BMP, BHOB, LIPASE, HEPATIC, SCAN CBC, PT #### [address] MCV (RBC) [Entitic vol] 90.7 fL Normal 80-100 [facility] Comment on above: Performed By: #### C RP, TSH3, ESR, BMP, BHOB, LIPASE, HEPATIC, SCAN CBC, PT #### [address] Mean Corpuscular HGB Conc 32.8 g/dL Normal 32.0-35.0 [facility] Comment on above: Performed By: #### C RP, TSH3, ESR, BMP, BHOB, LIPASE, HEPATIC, SCAN CBC, PT #### [address] Monocytes (Bld) [#/Vol] 0.3 10*3/uL Normal 0.0-0.8 [facility] Comment on above: Performed By: #### C RP, TSH3, ESR, BMP, BHOB, LIPASE, HEPATIC, SCAN CBC, PT #### [address] Monocytes/100 WBC (Bld) 19.02 % Normal 0.00-20.00 [facility] Comment on above: Performed By: #### C RP, TSH3, ESR, BMP, BHOB, LIPASE, HEPATIC, SCAN CBC, PT #### [address] Monocytes/100 WBC (Bld) 9.3 % Normal . [facility] Comment on above: Performed By: #### C RP, TSH3, ESR, BMP, BHOB, LIPASE, HEPATIC, SCAN CBC, PT #### [address] Neutrophils (Bld) [#/Vol] 2.1 10*3/uL Normal 1.8-7.7 [facility] Comment on above: Performed By: #### C RP, TSH3, ESR, BMP, BHOB, LIPASE, HEPATIC, SCAN CBC, PT #### [address] Neutrophils/100 WBC (Bld) 64.0 % Normal . [facility] Comment on above: Performed By: #### C RP, TSH3, ESR, BMP, BHOB, LIPASE, HEPATIC, SCAN CBC, PT #### [facility] [address] NRBC% 0.2 /100{WBC} Normal 0-0.5 [facility] Comment on above: Performed By: #### C RP, TSH3, ESR, BMP, BHOB, LIPASE, HEPATIC, SCAN CBC, PT #### [facility] [address] Platelet Estimate Decreased Normal Normal [facility] Comment on above: Performed By: #### C RP, TSH3, ESR, BMP, BHOB, LIPASE, HEPATIC, SCAN CBC, PT #### [address] Platelet mean volume (Bld) [Entitic vol] 9.9 fL Normal 6.3-10.7 [facility] Comment on above: Performed By: #### C RP, TSH3, ESR, BMP, BHOB, LIPASE, HEPATIC, SCAN CBC, PT #### [facility] [address] Platelet Morphology Normal Normal Normal [facility] Comment on above: Performed By: #### C RP, TSH3, ESR, BMP, BHOB, LIPASE, HEPATIC, SCAN CBC, PT #### [address] Platelets (Bld) [#/Vol] 56 10*3/uL Low 150-450 [facility] Comment on above: Performed By: #### C RP, TSH3, ESR, BMP, BHOB, LIPASE, HEPATIC, SCAN CBC, PT #### [address] Polychromasia Moderate Normal [facility] Comment on above: Performed By: #### C RP, TSH3, ESR, BMP, BHOB, LIPASE, HEPATIC, SCAN CBC, PT #### [address] RBC (Bld) [#/Vol] 4.43 10*6/uL Normal 3.60-5.[address] [facility] Comment on above: Performed By: #### C RP, TSH3, ESR, BMP, BHOB, LIPASE, HEPATIC, SCAN CBC, PT #### [address] WBC (Bld) [#/Vol] 3.3 10*3/uL Low 3.8-11.6 [facility] Comment on above: Performed By: #### C RP, TSH3, ESR, BMP, BHOB, LIPASE, HEPATIC, SCAN CBC, PT #### [address] White Blood Count 3.3 [CFU]/mL Low 3.8-11.[address] [facility] Comment on above: Performed By: #### C RP, TSH3, ESR, BMP, BHOB, LIPASE, HEPATIC, SCAN CBC, PT #### [address] Serum or plasma ethanol elis urement (mass/volume)Ordered By: Deshaun Han on 08-19-2024 Ethanol [Mass/Vol] TNP [facility] Comment on above: Test not performed Serum or plasma non-glucuron idated bilirubin measurement (mass/volume)Ordered By: Deshaun Han on 08-19-2024 Bilirubin.indirect [Mass/Vol] 1.1 mg/dL [facility] Specific gravity Test strip (U) [Rel density]Ordered By: Deshaun Han on 08-19-2024 Specific gravity (U) [Rel density] 1.029 1.001-1.03 0 [facility] Thyroid Stimulating Hormoneo n 08-19-2024 TSH Qn 1.23 m[IU]/L Normal 0.45-5.33 [facility] Comment on above: Result Comment: PERF ORMED BY: [place] [address] PATHOLOGIST KEY BED INSTALLER CHAD FREY M.D. Performed By: #### C RP, TSH3, ESR, BMP, BHOB, LIPASE, HEPATIC, SCAN CBC, PT #### [place] [address] [place] Performed By: #### C RP, TSH3, ESR, BMP, BHOB, LIPASE, HEPATIC, SCAN CBC, PT ####[facility] Troponin I High Sensitivityo n 08-19-2024 Troponin I High Sensitivity 5 Normal 0-15 [facility] Comment on above: Result Comment: The Troponin units of report have been changed to meet the Chest Pain Accreditation requirement, element EC5.M1l2. Troponin units are changed from pg/ml to ng/L. Also, the decimal is removed and results are in whole numbers. PERFORMED BY: [place] [address] PATHOLOGIST KEY BED INSTALLER CHAD FREY M.D. Performed By: #### C RP, TSH3, ESR, BMP, BHOB, LIPASE, HEPATIC, SCAN CBC, PT #### [facility] [address] Troponin I.cardiac [Mass/vol ume] in Serum or Plasma by Detection limit <= 0.01 ng/mLOrdered By: Deshaun Han on 08-19-2024 Troponin I.cardiac DL <= 0.01 ng/mL [Mass/Vol] 5 ng/L 0-15 [facility] Comment on above: The Troponin units o f report have been changed to meet the Chest Pain Accreditation requirement, element EC5.M1l2. Troponin units are changed from pg/ml to ng/L. Also, the decimal is removed and results are in whole numbers. Urinalysison 08-19-2024 Bilirubin,Urine Negative Normal Negative [facility] Comment on above: Order Comment: Name Collection Type:: Clean-Voided Midstream Performed By: #### C RP, TSH3, ESR, BMP, BHOB, LIPASE, HEPATIC, SCAN CBC, PT #### [facility] [address] Glucose Ql (U) >= Normal Normal [facility] Comment on above: Order Comment: Name Collection Type:: Clean-Voided Midstream Performed By: #### C RP, TSH3, ESR, BMP, BHOB, LIPASE, HEPATIC, SCAN CBC, PT #### [address] Nitrite,Urine Negative Normal Negative [facility] Comment on above: Order Comment: Name Collection Type:: Clean-Voided Midstream Performed By: #### C RP, TSH3, ESR, BMP, BHOB, LIPASE, HEPATIC, SCAN CBC, PT #### [address] Occult Blood,Urine Negative Normal Negative [facility] Comment on above: Order Comment: Name Collection Type:: Clean-Voided Midstream Result Comment: PERF ORMED BY: [place] [address] PATHOLOGIST KEY BED INSTALLER CHAD FREY M.D. Performed By: #### C RP, TSH3, ESR, BMP, BHOB, LIPASE, HEPATIC, SCAN CBC, PT #### [address] Protein,Urine Negative Normal Negative [facility] Comment on above: Order Comment: Name Collection Type:: Clean-Voided Midstream Performed By: #### C RP, TSH3, ESR, BMP, BHOB, LIPASE, HEPATIC, SCAN CBC, PT #### [address] Specificy [place],Urine 1.029 Normal 1.001-1.03 0 [facility] Comment on above: Order Comment: Name Collection Type:: Clean-Voided Midstream Performed By: #### C RP, TSH3, ESR, BMP, BHOB, LIPASE, HEPATIC, SCAN CBC, PT #### [address] Urobilinogen,Urine Normal Normal Normal [facility] Comment on above: Order Comment: Name Collection Type:: Clean-Voided Midstream Performed By: #### C RP, TSH3, ESR, BMP, BHOB, LIPASE, HEPATIC, SCAN CBC, PT #### [address] Urobilinogen Test strip (U) [Mass/Vol]Ordered By: Deshaun Han on 08-19-2024 Urobilinogen (U) [Mass/Vol] Normal mg/dL Normal [facility] pH of Urine by Test stripOrd ered By: Deshaun Han on 08-19-2024 pH (U) 7.0 [pH] Normal 5.0-9.0 [facility] Comment on above: Order Comment: Name Collection Type:: Clean-Voided Midstream Performed By: #### C RP, TSH3, ESR, BMP, BHOB, LIPASE, HEPATIC, SCAN CBC, PT #### [facility] [address] CNCOon 08-10-2024 CNCO Letter Text Normal [facility] X-ray reportOrdered By: Gerardo Cardenas on 07-26-2024 Study report [facility] [address] [place] [address] XRay Report Signed Patient: Teresa Lyle MR#: [id number] : 1960 Acct:[id number] Age/Sex: 64 / F ADM Date: 5 Loc: [facility] Room: Type: [facility] Attending Dr: Roger Robbins DO Copies to: [...] Cardenas II, MD 07/26/241657 Signed By: 07/26/241658 [facility] Work Phone: Study report [facility] [address] [place] [id number] XRay Report Signed Patient: Teresa Lyle MR#: [id number] : 1960 Acct:[id number] Age/Sex: 64 / F ADM Date: 5 Loc: [facility] Room: Type: [facility] Attending Dr: Roger Robbins DO Copies to: [...] Cardenas II, MD 07/26/241658 Signed By: 07/26/241699 [facility] Work Phone: XR femur RT 2V*on 07-26-2024 XR femur RT 2V* [facility] [address] [place] [address] XRay Report Signed Patient: Teresa Lyle MR#: [id number] : 1960 Acct:[id number] Age/Sex: 64 / F ADM Date: 07/26/24 Loc: [facility] Room: Type: REG CLI Attending Dr: Roger [...] Cardenas M.D. 07/26/2024 4:59 PM Dictation Location: [place] [address] Transcribed By: [facility] 07/26/241658 Dictated By: Gerardo Cardenas II, MD 07/26/24 165 Signed By: 07/26/24 1659 Normal [facility] XR pelvis 1-2Von 07-26-2024 XR pelvis 1-2V [facility] [address] [place] [address] XRay Report Signed Patient: Teresa Lyle MR#: [id number] : 1960 Acct:[id number] Age/Sex: 64 / F ADM Date: 07/26/24 Loc: [facility] Room: Type: REG CLI Attending Dr: Roger [...] Cardenas M.D. 07/26/2024 5:00 PM Dictation Location: [place] [address] Transcribed By: [facility] 07/26/24 1700 Dictated By: Gerardo Cardenas II, MD 07/26/24 1659 Signed By: 07/26/24 1700 Normal [facility] Anisocytosis LM Ql (Bld)Orde red By: Jordan Thomson on 07-14-2024 Anisocytosis Ql (Bld) Anisocytosis [Pres ence] in Blood by Light microscopy [facility] Anisocytosis [Presence] in B lood by Light microscopyOrdered By: Jordan Thomson on 07-14-2024 Anisocytosis Ql (Bld) Marked Normal [facility] Comment on above: Performed By: #### C RP, TSH3, ESR, BMP, BHOB, LIPASE, HEPATIC, SCAN CBC, PT #### [facility] [address] Basophils Auto (Bld) [#/Vol] Ordered By: Jordan Thomson on 07-14-2024 Basophils (Bld) [#/Vol] Automated basophil count 0.0-0.2 [facility] Basophils [#/volume] in Bloo d by Automated countOrdered By: Jordan Thomson on 07-14-2024 Basophils (Bld) [#/Vol] 0.1 10*3/uL Normal 0.0-0.2 [facility] Comment on above: Performed By: #### C RP, TSH3, ESR, BMP, BHOB, LIPASE, HEPATIC, SCAN CBC, PT #### [facility] [address] [place] [address] [place] Basophils/100 WBC Auto (Bld) Ordered By: Jordan Bunting on 07-14-2024 Basophils/100 WBC (Bld) Automated basophil % . [facility] Basophils/100 leukocytes in Blood by Automated countOrdered By: Jordan Bunting on 07-14-2024 Basophils/100 WBC (Bld) 1.6 % Normal . [facility] Comment on above: Performed By: #### C RP, TSH3, ESR, BMP, BHOB, LIPASE, HEPATIC, SCAN CBC, PT #### [place] [address] [place] Eosinophils Auto (Bld) [#/Vo l]Ordered By: Jordan Bunting on 07-14-2024 Eosinophils (Bld) [#/Vol] Automated eosinophil count 0.0-0.45 [facility] Eosinophils [#/volume] in Bl ood by Automated countOrdered By: Jordan Bunting on 07-14-2024 Eosinophils (Bld) [#/Vol] 0.1 10*3/uL Normal 0.0-0.45 [facility] Comment on above: Performed By: #### C RP, TSH3, ESR, BMP, BHOB, LIPASE, HEPATIC, SCAN CBC, PT #### [facility] [address] [place] [address] [place] Eosinophils/100 WBC Auto (Bl d)Ordered By: Jordan Bunting on 07-14-2024 Eosinophils/100 WBC (Bld) Automated eosinophil % . [facility] Eosinophils/100 leukocytes i n Blood by Automated countOrdered By: Jordan Bunting on 07-14-2024 Eosinophils/100 WBC (Bld) 3.9 % Normal . [facility] Comment on above: Performed By: #### C RP, TSH3, ESR, BMP, BHOB, LIPASE, HEPATIC, SCAN CBC, PT #### [facility] [address] Erythrocyte distribution wid th Auto (RBC) [Ratio]Ordered By: Jordan Bunting on 07-14-2024 Erythrocyte distribution width (RBC) [Ratio] Erythrocyte distribution width [Ratio] by Automated count High 11.9-15.3 [facility] Erythrocyte distribution wid th [Ratio] by Automated countOrdered By: Jordan Bunting on 07-14-2024 Erythrocyte distribution width (RBC) [Ratio] 30.2 % High 11.9-15.3 [facility] Comment on above: Performed By: #### C RP, TSH3, ESR, BMP, BHOB, LIPASE, HEPATIC, SCAN CBC, PT #### [address] Erythrocyte morphology findi ng [Identifier] in BloodOrdered By: Jordan Bunting on 07-14-2024 RBC morphology finding Nom (Bld) RBC morphology [facility] RBC morphology finding Nom (Bld) N/A [facility] Erythrocytes [#/volume] in B lood by Automated countOrdered By: Jordan Bunting on 07-14-2024 RBC (Bld) [#/Vol] 3.99 10*6/uL Normal 3.60-5.00 [facility] Comment on above: Performed By: #### C RP, TSH3, ESR, BMP, BHOB, LIPASE, HEPATIC, SCAN CBC, PT #### [address] Hematocrit Auto (Bld) [Volum e fraction]Ordered By: Jordan Bunting on 07-14-2024 Hematocrit (Bld) [Volume fraction] Hematocrit [Volume Fraction] of Blood by Automated count Low 34.0-46.4 [facility] Hematocrit [Volume Fraction] of Blood by Automated countOrdered By: Jordan Bunting on 07-14-2024 Hematocrit (Bld) [Volume fraction] 32.9 % Low 34.0-46.4 [facility] Comment on above: Performed By: #### C RP, TSH3, ESR, BMP, BHOB, LIPASE, HEPATIC, SCAN CBC, PT #### [place] [address] [place] Hemoglobin [Mass/volume] in BloodOrdered By: Jordan Bunting on 07-14-2024 Hemoglobin (Bld) [Mass/Vol] Hemoglobin [Mass/volume] in Blood Low 11.8-15.4 [facility] Hemoglobin (Bld) [Mass/Vol] 10.6 g/dL Low 11.8-15.4 [facility] Comment on above: Performed By: #### C RP, TSH3, ESR, BMP, BHOB, LIPASE, HEPATIC, SCAN CBC, PT #### [facility] [address] Hypochromia LM Ql (Bld)Order ed By: Jordan Bunting on 07-14-2024 Hypochromia Ql (Bld) Hypochromia [Presen ce] in Blood by Light microscopy [facility] Hypochromia Ql (Bld) Moderate [facility] Leukocytes [#/volume] correc lyly for nucleated erythrocytes in Blood by Automated counOrdered By: Jordan Bunting on 07-14-2024 WBC corrected for nucl RBC Auto (Bld) [#/Vol] Leukocytes [#/volume] corrected for nucleated erythrocytes in Blood by Automated coun Low 3.8-11.6 [facility] WBC corrected for nucl RBC Auto (Bld) [#/Vol] 3.7 10*3/uL Low 3.8-11.6 [facility] Leukocytes [#/volume] in Blo od by Automated countOrdered By: Jordan Thomson on 07-14-2024 WBC (Bld) [#/Vol] 3.7 10*3/uL Low 3.8-11.6 [facility] Comment on above: Performed By: #### C RP, TSH3, ESR, BMP, BHOB, LIPASE, HEPATIC, SCAN CBC, PT #### [facility] [address] Lymphocytes Auto (Bld) [#/Vo l]Ordered By: Jordan Bunting on 07-14-2024 Lymphocytes (Bld) [#/Vol] Lymphocytes [#/volume] in Blood by Automated count Low 1.00-4.8 [facility] Lymphocytes [#/volume] in Bl ood by Automated countOrdered By: Jordan Bunting on 07-14-2024 Lymphocytes (Bld) [#/Vol] 0.8 10*3/uL Low 1.00-4.8 [facility] Comment on above: Performed By: #### C RP, TSH3, ESR, BMP, BHOB, LIPASE, HEPATIC, SCAN CBC, PT #### [facility] [address] Lymphocytes/100 WBC Auto (Bl d)Ordered By: Jordan Bunting on 07-14-2024 Lymphocytes/100 WBC (Bld) Lymphocytes/100 leukocytes in Blood by Automated count . [facility] Lymphocytes/100 leukocytes i n Blood by Automated countOrdered By: Jordan Bunting on 07-14-2024 Lymphocytes/100 WBC (Bld) 22.1 % Normal . [facility] Comment on above: Performed By: #### C RP, TSH3, ESR, BMP, BHOB, LIPASE, HEPATIC, SCAN CBC, PT #### [facility] [address] MCH Auto (RBC) [Entitic mass ]Ordered By: Jordan Bunting on 07-14-2024 MCH (RBC) [Entitic mass] MCH [Entitic mass] by Automated count 24.7-34.3 [facility] MCH [Entitic mass] by Automa lyly countOrdered By: Jordan Bunting on 07-14-2024 MCH (RBC) [Entitic mass] 26.6 pg Normal 24.7-34.3 [facility] Comment on above: Performed By: #### C RP, TSH3, ESR, BMP, BHOB, LIPASE, HEPATIC, SCAN CBC, PT #### [facility] [address] MCHC Auto (RBC) [Mass/Vol]Or dered By: Jordan Bunting on 07-14-2024 MCHC (RBC) [Mass/Vol] MCHC [Mass/volume] by Automated count 32.0-35.0 [facility] MCHC (RBC) [Mass/Vol] 32.2 g/dL 32.0-35.0 [facility] MCV Auto (RBC) [Entitic vol] Ordered By: Jordan Bunting on 07-14-2024 MCV (RBC) [Entitic vol] MCV [Entitic volume] by Automated count 80-100 [facility] MCV [Entitic volume] by Auto mated countOrdered By: Jordan Bunting on 07-14-2024 MCV (RBC) [Entitic vol] 82.6 fL Normal 80-100 [facility] Comment on above: Performed By: #### C RP, TSH3, ESR, BMP, BHOB, LIPASE, HEPATIC, SCAN CBC, PT #### [facility] [address] [place] [address] [place] Microcytes LM Ql (Bld)Ordere d By: Jordan Bunting on 07-14-2024 Microcytes Ql (Bld) Microcytes [Presence ] in Blood by Light microscopy [facility] Microcytes Ql (Bld) Slight [facility] Monocytes Auto (Bld) [#/Vol] Ordered By: Jordan Bunting on 07-14-2024 Monocytes (Bld) [#/Vol] Automated blood monocyte count 0.0-0.8 [facility] Monocytes [#/volume] in Bloo d by Automated countOrdered By: Jordan Bunting on 07-14-2024 Monocytes (Bld) [#/Vol] 0.4 10*3/uL Normal 0.0-0.8 [facility] Comment on above: Performed By: #### C RP, TSH3, ESR, BMP, BHOB, LIPASE, HEPATIC, SCAN CBC, PT #### [facility] [address] [place] [address] [place] Monocytes/100 WBC Auto (Bld) Ordered By: Jordan Bunting on 07-14-2024 Monocytes/100 WBC (Bld) Automated monocyte % . [facility] Monocytes/100 leukocytes in Blood by Automated countOrdered By: Jordan Bunting on 07-14-2024 Monocytes/100 WBC (Bld) 11.9 % Normal . [facility] Comment on above: Performed By: #### C RP, TSH3, ESR, BMP, BHOB, LIPASE, HEPATIC, SCAN CBC, PT #### [facility] [address] Neutrophils Auto (Bld) [#/Vo l]Ordered By: Jordan Bunting on 07-14-2024 Neutrophils (Bld) [#/Vol] Neutrophils [#/volume] in Blood by Automated count 1.8-7.7 [facility] Neutrophils [#/volume] in Bl ood by Automated countOrdered By: Jordan Bunting on 07-14-2024 Neutrophils (Bld) [#/Vol] 2.2 10*3/uL Normal 1.8-7.7 [facility] Comment on above: Performed By: #### C RP, TSH3, ESR, BMP, BHOB, LIPASE, HEPATIC, SCAN CBC, PT #### [facility] [address] Neutrophils/100 WBC Auto (Bl d)Ordered By: Jordan Bunting on 07-14-2024 Neutrophils/100 WBC (Bld) Automated neutrophil % . [facility] Neutrophils/100 leukocytes i n Blood by Automated countOrdered By: Jordan Bunting on 07-14-2024 Neutrophils/100 WBC (Bld) 60.5 % Normal . [facility] Comment on above: Performed By: #### C RP, TSH3, ESR, BMP, BHOB, LIPASE, HEPATIC, SCAN CBC, PT #### [facility] [address] Nucleated erythrocytes [Pres ence] in Blood by Automated countOrdered By: Jordan Bunting on 07-14-2024 Nucleated RBC Auto Ql (Bld) Nucleated erythrocytes [Presence] in Blood by Automated count 0-0.5 [facility] Nucleated RBC Auto Ql (Bld) 0.3 /100{WBC} 0-0.5 [facility] Platelet adequacy [Presence] in Blood by Light microscopyOrdered By: Jordan Bunting on 07-14-2024 Platelets LM Ql (Bld) Platelet adequacy [Presence] in Blood by Light microscopy Normal [facility] Platelets LM Ql (Bld) Decreased Normal [facility] Platelet mean volume Auto (B ld) [Entitic vol]Ordered By: Jordan Bunting on 07-14-2024 Platelet mean volume (Bld) [Entitic vol] Platelet mean volume [Entitic volume] in Blood by Automated count 6.3-10.7 [facility] Platelet mean volume [Entiti c volume] in Blood by Automated countOrdered By: Jordan Bunting on 07-14-2024 Platelet mean volume (Bld) [Entitic vol] 8.4 fL Normal 6.3-10.7 [facility] Comment on above: Performed By: #### C RP, TSH3, ESR, BMP, BHOB, LIPASE, HEPATIC, SCAN CBC, PT #### [facility] [address] Platelet morphology finding [Identifier] in BloodOrdered By: Jordan Bunting on 07-14-2024 Platelet morphology finding Nom (Bld) Platelet morphology finding [Identifier] in Blood Normal [facility] Platelet morphology finding Nom (Bld) Normal Normal [facility] Platelets Auto (Bld) [#/Vol] Ordered By: Jordan Bunting on 07-14-2024 Platelets (Bld) [#/Vol] Platelets [#/volume] in Blood by Automated count Low 150-450 [facility] Platelets [#/volume] in Bloo d by Automated countOrdered By: Jordan Bunting on 07-14-2024 Platelets (Bld) [#/Vol] 81 10*3/uL Low 150-450 [facility] Comment on above: Performed By: #### C RP, TSH3, ESR, BMP, BHOB, LIPASE, HEPATIC, SCAN CBC, PT #### [facility] [address] Polychromasia [Presence] in Blood by Light microscopyOrdered By: Jordan Bunting on 07-14-2024 Polychromasia LM Ql (Bld) Polychromasia [Presence] in Blood by Light microscopy [facility] Polychromasia LM Ql (Bld) Slight [facility] RBC Auto (Bld) [#/Vol]Ordere d By: Jordan Bunting on 07-14-2024 RBC (Bld) [#/Vol] Erythrocytes [#/volu me] in Blood by Automated count 3.60-5.00 [facility] Scan and CBCon 07-14-2024 Hypochromasia Moderate Normal [facility] Comment on above: Performed By: #### C RP, TSH3, ESR, BMP, BHOB, LIPASE, HEPATIC, SCAN CBC, PT #### [address] Mean Corpuscular HGB Conc 32.2 g/dL Normal 32.0-35.0 [facility] Comment on above: Performed By: #### C RP, TSH3, ESR, BMP, BHOB, LIPASE, HEPATIC, SCAN CBC, PT #### [address] Microcytosis Slight Normal [facility] Comment on above: Performed By: #### C RP, TSH3, ESR, BMP, BHOB, LIPASE, HEPATIC, SCAN CBC, PT #### [address] NRBC% 0.3 /100{WBC} Normal 0-0.5 [facility] Comment on above: Performed By: #### C RP, TSH3, ESR, BMP, BHOB, LIPASE, HEPATIC, SCAN CBC, PT #### [address] Platelet Estimate Decreased Normal Normal [facility] Comment on above: Performed By: #### C RP, TSH3, ESR, BMP, BHOB, LIPASE, HEPATIC, SCAN CBC, PT #### [address] Platelet Morphology Normal Normal Normal [facility] Comment on above: Result Comment: PERF ORMED BY: [place] [address] PATHOLOGIST KEY BED INSTALLER ADALBERTO MARTEL M.D. Performed By: #### C RP, TSH3, ESR, BMP, BHOB, LIPASE, HEPATIC, SCAN CBC, PT #### [address] Polychromasia Slight Normal [facility] Comment on above: Performed By: #### C RP, TSH3, ESR, BMP, BHOB, LIPASE, HEPATIC, SCAN CBC, PT #### [facility] [address] [place] [id number] [facility] Stomatocytes Slight Normal [facility] Comment on above: Performed By: #### C RP, TSH3, ESR, BMP, BHOB, LIPASE, HEPATIC, SCAN CBC, PT #### [facility] [address] [place] [id number] [place] Stomatocytes [Presence] in B lood by Light microscopyOrdered By: Jordan Thomson on 07-14-2024 Stomatocytes LM Ql (Bld) Red blood cell stomatocyte detection [facility] Stomatocytes LM Ql (Bld) Slight [facility] WBC Auto (Bld) [#/Vol]Ordere d By: Jordan Thomson on 07-14-2024 WBC (Bld) [#/Vol] Leukocytes [#/volume ] in Blood by Automated count Low 3.8-11.6 [facility] X-ray reportOrdered By: Gerardo Cardenas on 07-10-2024 Study report [facility] [address] [place] [address] [place], [place] [id number] XRay Report Signed Patient: Teresa Lyle MR#: [id number] : 1960 Acct:[id number] Age/Sex: 64 / F ADM Date: Loc: ER Room: Type: [facility] ER Attending Dr: Copies to: Darion Goss [...] By: CHRISTIN 07/10/24 1300 Dictated By: Gerardo Cardenas II, MD 07/10/241258 Signed By: 07/10/24 1300 [facility] Work Phone: Study report [facility] [place] [address] XRay Report Signed Patient: Teresa Lyle MR#: [id number] : 1960 Acct:[id number] Age/Sex: 64 / F ADM Date: 5 Loc: ER Room: Type: [facility] ER Attending Dr: Copies to: Darion Goss [...] Dictated By: Gerardo Cardenas II, MD 07/10/24 1254 Signed By: 07/10/241258 [facility] Work Phone: XR femur RT 2V*on 07-10-2024 XR femur RT 2V* [facility] Main [address] [address] XRay Report Signed Patient: Teresa Lyle MR#: [id number] : 1960 Acct:[id number] Age/Sex: 64 / F ADM Date: 07/10/24 Loc: ER Room: Type: [facility] ER Attending Dr: Copies to: Darion Goss [...] Cardenas M.D. 07/10/2024 12:59 PM Dictation Location: [place] [address] Transcribed By: [facility] 07/10/24 1259 Dictated By: Gerardo Cardenas II, MD 07/10/24 1258 Signed By: 07/10/24 1259 Normal [facility] XR pelvis 1-2Von 07-10-2024 XR pelvis 1-2V [facility] Main [address] [address] XRay Report Signed Patient: Teresa Lyle MR#: [id number] : 1960 Acct:[id number] Age/Sex: 64 / F ADM Date: 07/10/24 Loc: ER Room: Type: [facility] ER Attending Dr: Copies to: Darion Goss [...] Cardenas M.D. 07/10/2024 1:00 PM Dictation Location: [place] [address] Transcribed By: [facility] 07/10/24 1300 Dictated By: Gerardo Cardenas II, MD 07/10/24 1259 Signed By: 07/10/24 1300 Normal [facility] Basic Metabolic Panelon 06-29 Creatinine Clr Calc Pharmacy 115.42 Normal [facility] Comment on above: Result Comment: PERF ORMED BY: [place] [address] PATHOLOGIST KEY BED INSTALLER ADALBERTO MARTEL M.D. Performed By: #### C RP, TSH3, ESR, BMP, BHOB, LIPASE, HEPATIC, SCAN CBC, PT #### [facility] [address] [place] [address] [place] GFR/1.73 sq M.predicted MDRD (S/P/Bld) [Vol rate/Area] mL/min/{1.73_m2} Normal [facility] Comment on above: Performed By: #### C RP, TSH3, ESR, BMP, BHOB, LIPASE, HEPATIC, SCAN CBC, PT #### [facility] [address] [place] [address] [place] Calcium [Mass/volume] in Ser um or PlasmaOrdered By: Sylvia Centeno on 07-08-2024 Calcium [Mass/Vol] Calcium [Mass/volume ] in Serum or Plasma Low 8.6-10.3 [facility] Calcium [Mass/Vol] 7.7 mg/dL Low 8.6-10.3 [facility] Comment on above: Performed By: #### C RP, TSH3, ESR, BMP, BHOB, LIPASE, HEPATIC, SCAN CBC, PT #### [facility] [address] Capillary blood glucose elis urement by glucometer (mass/volume)Ordered By: Forest Quiroz on 07-08-2024 Glucose [Mass/Vol] 193 mg/dL Normal [facility] Comment on above: Random Glucose Refer ence Range is dependent on time and content of last meal. Glucose of more than 200 mg/dL in a nonstressed, ambulatory subject supports the diagnosis of Diabetes Mellitus. Result Comment: [place] [facility] Glucose Reference Range is dependent on time and content of last meal. Glucose of more than 200 mg/dL in a nonstressed, ambulatory subject supports the diagnosis of Diabetes Mellitus. Performed By: #### C RP, TSH3, ESR, BMP, BHOB, LIPASE, HEPATIC, SCAN CBC, PT #### [facility] [address] [place] [address] [place] Carbon dioxide, total [Moles /volume] in Serum or PlasmaOrdered By: Sylvia Centeno on 07-08-2024 CO2 [Moles/Vol] Carbon dioxide, tota l [Moles/volume] in Serum or Plasma 21.0-31.0 [facility] CO2 [Moles/Vol] 24.7 mmol/L Normal 21.0-31.0 [facility] Comment on above: Performed By: #### C RP, TSH3, ESR, BMP, BHOB, LIPASE, HEPATIC, SCAN CBC, PT #### [facility] [address] Chloride [Moles/volume] in S [place] or PlasmaOrdered By: Sylvia Centeno on 07-08-2024 Chloride [Moles/Vol] Chloride [Moles/vol ume] in Serum or Plasma 98-107 [facility] Chloride [Moles/Vol] 102 mmol/L Normal 98-107 [facility] Comment on above: Performed By: #### C RP, TSH3, ESR, BMP, BHOB, LIPASE, HEPATIC, SCAN CBC, PT #### [facility] [address] Creatinine [Mass/volume] in Serum or PlasmaOrdered By: Sylvia Centeno on 07-08-2024 Creatinine [Mass/Vol] Creatinine [Mass/v olume] in Serum or Plasma Low 0.60-1.20 [facility] Creatinine [Mass/Vol] 0.46 mg/dL Low 0.60-1.20 [facility] Comment on above: Performed By: #### C RP, TSH3, ESR, BMP, BHOB, LIPASE, HEPATIC, SCAN CBC, PT #### [facility] [address] Glucose Glucometer (BldC) [M ass/Vol]Ordered By: Forest Quiroz on 07-08-2024 Glucose [Mass/Vol] Capillary blood gluc ose measurement by glucometer (mass/volume) [facility] Comment on above: Random Glucose Refer ence Range is dependent on time and content of last meal. Glucose of more than 200 mg/dL in a nonstressed, ambulatory subject supports the diagnosis of Diabetes Mellitus. Glucose Poct Glucometerson 0 07-08-2024 Commemt1 Glu2: Cleaned Meter Normal [facility] Comment on above: Result Comment: PERF ORMED BY: [place] [address] PATHOLOGIST KEY BED INSTALLER ADALBERTO MARTEL M.D. Performed By: #### C RP, TSH3, ESR, BMP, BHOB, LIPASE, HEPATIC, SCAN CBC, PT #### [facility] [address] [place] [id number] [facility] Commemt1 Glu2: Cleaned Meter Normal [facility] Comment on above: Result Comment: PERF ORMED BY: [place] [address] PATHOLOGIST KEY BED INSTALLER ADALBERTO MARTEL M.D. Performed By: #### C RP, TSH3, ESR, BMP, BHOB, LIPASE, HEPATIC, SCAN CBC, PT #### [facility] [address] [place] [id number] [facility] Glucose [Mass/Vol] 177 mg/dL Normal [facility] Comment on above: Result Comment: [facility] Glucose Reference Range is dependent on time and content of last meal. Glucose of more than 200 mg/dL in a nonstressed, ambulatory subject supports the diagnosis of Diabetes Mellitus. Performed By: #### C RP, TSH3, ESR, BMP, BHOB, LIPASE, HEPATIC, SCAN CBC, PT #### [facility] [address] [place] [address] [place] Glucose [Mass/volume] in Ser um or PlasmaOrdered By: Sylvia Centeno on 07-08-2024 Glucose [Mass/Vol] Glucose [Mass/volume ] in Serum or Plasma 70-100 [facility] Comment on above: ADA recommended refe rence rangeRandom Glucose Reference Range is dependent on time and content of last meal. Glucose of more than 200 mg/dL in a nonstressed, ambulatory subject supports the diagnosis of Diabetes Mellitus. Glucose [Mass/Vol] 90 mg/dL Normal 70-100 [facility] Comment on above: ADA recommended refe rence rangeRandom Glucose Reference Range is dependent on time and content of last meal. Glucose of more than 200 mg/dL in a nonstressed, ambulatory subject supports the diagnosis of Diabetes Mellitus. Result Comment: [place] [facility] Glucose Reference Range is dependent on time and content of last meal. Glucose of more than 200 mg/dL in a nonstressed, ambulatory subject supports the diagnosis of Diabetes Mellitus. ADA recommended reference range Performed By: #### C RP, TSH3, ESR, BMP, BHOB, LIPASE, HEPATIC, SCAN CBC, PT #### [facility] [address] [place] [id number] [facility] No Panel InformationOrdered By: Forest Quiroz on 07-08-2024 Bedside Glucose Comment Glu2: cleaned meter [facility] No Panel InformationOrdered By: Sylvia Centeno on 07-08-2024 Estimated GFR (CKD-EPI) > 60.0 mL/Min [facility] Pharmacy Creatinine Clearance (Chem 115.42 [facility] Potassium [Moles/volume] in Serum or PlasmaOrdered By: Sylvia Centeno on 07-08-2024 Potassium [Moles/Vol] Potassium [Moles/v olume] in Serum or Plasma 3.5-5.1 [facility] Potassium [Moles/Vol] 4.4 mmol/L Normal 3.5-5.1 [facility] Comment on above: Performed By: #### C RP, TSH3, ESR, BMP, BHOB, LIPASE, HEPATIC, SCAN CBC, PT #### [facility] [address] Serum or plasma anion gap de terminationOrdered By: Sylvia Centeno on 07-08-2024 Anion gap [Moles/Vol] Serum or plasma an ion gap determination 6.0-15.0 [facility] Anion gap [Moles/Vol] 8.7 mmol/L Normal 6.0-15.0 [facility] Comment on above: Performed By: #### C RP, TSH3, ESR, BMP, BHOB, LIPASE, HEPATIC, SCAN CBC, PT #### [facility] [address] Sodium [Moles/volume] in Ser um or PlasmaOrdered By: Sylvia Centeno on 07-08-2024 Sodium [Moles/Vol] Sodium [Moles/volume ] in Serum or Plasma Significant change up 136-145 [facility] Comment on above: Delta: 125 on Sodium [Moles/Vol] 131 mmol/L Significant change down 136-145 [facility] Comment on above: [place]: 125 on Performed By: #### C RP, TSH3, ESR, BMP, BHOB, LIPASE, HEPATIC, SCAN CBC, PT #### [facility] [address] Urea nitrogen [Mass/volume] in Serum or PlasmaOrdered By: Sylvia Centeno on 07-08-2024 Urea nitrogen [Mass/Vol] Urea nitrogen [Mass/volume] in Serum or Plasma 09-22 [facility] Urea nitrogen [Mass/Vol] 10 mg/dL Normal 09-22 [facility] Comment on above: Performed By: #### C RP, TSH3, ESR, BMP, BHOB, LIPASE, HEPATIC, SCAN CBC, PT #### [facility] [address] Basic Metabolic Panelon Anion gap [Moles/Vol] 8.8 mmol/L Normal 6.0-15.0 [facility] Comment on above: Performed By: #### B MP ####[place] [id number] [address] Calcium [Mass/Vol] 7.4 mg/dL Low 8.6-10.3 [facility] Comment on above: Performed By: #### B MP ####[place] [address] [address] Chloride [Moles/Vol] 97 mmol/L Low 98-107 [facility] Comment on above: Performed By: #### B MP ####[address] CO2 [Moles/Vol] 23.7 mmol/L Normal 21.0-31.0 [facility] Comment on above: Performed By: #### B MP ####[address] Creatinine [Mass/Vol] 0.48 mg/dL Low 0.60-1.20 [facility] Comment on above: Performed By: #### B MP ####[place] [id number] [facility] Creatinine Clr Calc Pharmacy 107.55 Normal [facility] Comment on above: Result Comment: PERF ORMED BY: [address] [place] [id number] PATHOLOGIST KEY BED INSTALLER ADALBERTO MARTEL M.D. Performed By: #### B MP ####[address] [address] [facility] GFR/1.73 sq M.predicted MDRD (S/P/Bld) [Vol rate/Area] mL/min/{1.73_m2} Normal [facility] Comment on above: Performed By: #### B MP ####[address] Glucose [Mass/Vol] 153 mg/dL High 70-100 [facility] Comment on above: Result Comment: [facility] Glucose Reference Range is dependent on time and content of last meal. Glucose of more than 200 mg/dL in a nonstressed, ambulatory subject supports the diagnosis of Diabetes Mellitus. ADA recommended reference range Performed By: #### B MP ####[address] Potassium [Moles/Vol] 4.5 mmol/L Normal 3.5-5.1 [facility] Comment on above: Performed By: #### B MP ####[address] Sodium [Moles/Vol] 125 mmol/L Low 136-145 [facility] Comment on above: Performed By: #### B MP ####[address] Urea nitrogen [Mass/Vol] 11 mg/dL Normal 7-25 [facility] Comment on above: Performed By: #### B MP ####[place] [address] [place] Basophils Auto (Bld) [#/Vol] Ordered By: Sylvia Centeno on 07-07-2024 Basophils (Bld) [#/Vol] Automated basophil count 0.0-0.2 [facility] Basophils [#/volume] in Bloo d by Automated countOrdered By: Sylvia Centeno on 07-07-2024 Basophils (Bld) [#/Vol] 0.1 10*3/uL Normal 0.0-0.2 [facility] Comment on above: Result Comment: PERF ORMED BY: [facility] [address] [place] [address] PATHOLOGIST KEY BED INSTALLER ADALBERTO MARTEL M.D. Performed By: #### C BC ####[address] Basophils/100 WBC Auto (Bld) Ordered By: Sylvia Centeno on 07-07-2024 Basophils/100 WBC (Bld) Automated basophil % . [facility] Basophils/100 leukocytes in Blood by Automated countOrdered By: Sylvia Jackson on 07-07-2024 Basophils/100 WBC (Bld) 0.8 % Normal . [facility] Comment on above: Performed By: #### C BC ####[address] Complete Blood Count Auto Di ffon 07-07-2024 Mean Corpuscular HGB Conc 32.4 g/dL Normal 32.0-35.0 [facility] Comment on above: Performed By: #### C BC ####[address] NRBC% 0.2 /100{WBC} Normal 0-0.5 [facility] Comment on above: Performed By: #### C BC ####[address] Eosinophils Auto (Bld) [#/Vo l]Ordered By: Sylvia Centeno on 07-07-2024 Eosinophils (Bld) [#/Vol] Automated eosinophil count 0.0-0.45 [facility] Eosinophils [#/volume] in Bl ood by Automated countOrdered By: Sylvia Jackson on 07-07-2024 Eosinophils (Bld) [#/Vol] 0.1 10*3/uL Normal 0.0-0.45 [facility] Comment on above: Performed By: #### C BC ####[address] Eosinophils/100 WBC Auto (Bl d)Ordered By: Sylvia Centeno on 07-07-2024 Eosinophils/100 WBC (Bld) Automated eosinophil % . [facility] Eosinophils/100 leukocytes i n Blood by Automated countOrdered By: Sylviawily GoldsmithRonelManuel on 07-07-2024 Eosinophils/100 WBC (Bld) 1.4 % Normal . [facility] Comment on above: Performed By: #### C BC ####[address] [place] [address] [facility] Erythrocyte distribution wid th Auto (RBC) [Ratio]Ordered By: Sylvia GoldsmithRonel Manuel on 07-07-2024 Erythrocyte distribution width (RBC) [Ratio] Erythrocyte distribution width [Ratio] by Automated count High 11.9-15.3 [facility] Erythrocyte distribution wid th [Ratio] by Automated countOrdered By: Sylviawily GoldsmithRonelManuel on 07-07-2024 Erythrocyte distribution width (RBC) [Ratio] 21.1 % High 11.9-15.3 [facility] Comment on above: Performed By: #### C BC ####[place] [id number] [facility] Erythrocytes [#/volume] in B lood by Automated countOrdered By: Sylviawily GoldsmithRonel Caputoy on 07-07-2024 RBC (Bld) [#/Vol] 3.70 10*6/uL Normal 3.60-5.00 [facility] Comment on above: Performed By: #### C BC ####[address] [address] [facility] Glucose Poct Glucometerson 0 07-07-2024 Glucose [Mass/Vol] 174 mg/dL Normal [facility] Comment on above: Result Comment: [place] Glucose Reference Range is dependent on time and content of last meal. Glucose of more than 200 mg/dL in a nonstressed, ambulatory subject supports the diagnosis of Diabetes Mellitus. PERFORMED BY: [facility] [address] [place] [address] PATHOLOGIST KEY BED INSTALLER ADALBERTO MARTEL M.D. Performed By: #### G LULS ####Point of Care testing, Commemt1 Glu2: Cleaned Meter Normal [facility] Comment on above: Result Comment: PERF ORMED BY: [place] [address] PATHOLOGIST KEY BED INSTALLER ADALBERTO MARTEL M.D. Performed By: #### G LULS ####Point of Care testing, Glucose [Mass/Vol] 184 mg/dL Normal [facility] Comment on above: Result Comment: [place] om Glucose Reference Range is dependent on time and content of last meal. Glucose of more than 200 mg/dL in a nonstressed, ambulatory subject supports the diagnosis of Diabetes Mellitus. Performed By: #### G LULS ####Point of Care testing, Glucose [Mass/Vol] 283 mg/dL Normal [facility] Comment on above: Result Comment: [place] om Glucose Reference Range is dependent on time and content of last meal. Glucose of more than 200 mg/dL in a nonstressed, ambulatory subject supports the diagnosis of Diabetes Mellitus. PERFORMED BY: [place] [phone] PATHOLOGIST KEY BED INSTALLER ADALBERTO MARTEL M.D. Performed By: #### C RP, TSH3, ESR, BMP, BHOB, LIPASE, HEPATIC, SCAN CBC, PT #### [address] Glucose [Mass/Vol] 182 mg/dL Normal [facility] Comment on above: Result Comment: [place] om Glucose Reference Range is dependent on time and content of last meal. Glucose of more than 200 mg/dL in a nonstressed, ambulatory subject supports the diagnosis of Diabetes Mellitus. PERFORMED BY: [place] [address] PATHOLOGIST KEY BED INSTALLER ADALBERTO MARTEL M.D. Performed By: #### G LULS ####Point of Care testing, Hematocrit Auto (Bld) [Volum e fraction]Ordered By: Sylvia Centeno on 07-07-2024 Hematocrit (Bld) [Volume fraction] Hematocrit [Volume Fraction] of Blood by Automated count Low 34.0-46.4 [facility] Hematocrit [Volume Fraction] of Blood by Automated countOrdered By: Sylvia Centeno on 07-07-2024 Hematocrit (Bld) [Volume fraction] 28.6 % Low 34.0-46.4 [facility] Comment on above: Performed By: #### C BC ####[id number] [facility] Hemoglobin [Mass/volume] in BloodOrdered By: Sylvia Centeno on 07-07-2024 Hemoglobin (Bld) [Mass/Vol] Hemoglobin [Mass/volume] in Blood Low 11.8-15.4 [facility] Hemoglobin (Bld) [Mass/Vol] 9.3 g/dL Low 11.8-15.4 [facility] Comment on above: Performed By: #### C BC ####[address] [place] [id number] [facility] Leukocytes [#/volume] correc lyly for nucleated erythrocytes in Blood by Automated counOrdered By: Sylvia Centeno on 07-07-2024 WBC corrected for nucl RBC Auto (Bld) [#/Vol] Leukocytes [#/volume] corrected for nucleated erythrocytes in Blood by Automated coun 3.8-11.6 [facility] WBC corrected for nucl RBC Auto (Bld) [#/Vol] 6.5 10*3/uL 3.8-11.6 [facility] Leukocytes [#/volume] in Blo od by Automated countOrdered By: Sylvia Jackson on 07-07-2024 WBC (Bld) [#/Vol] 6.5 10*3/uL Normal 3.8-11.6 [facility] Comment on above: Performed By: #### C BC ####[address] [place] [id number] [facility] Lymphocytes Auto (Bld) [#/Vo l]Ordered By: Sylvia Centeno on 07-07-2024 Lymphocytes (Bld) [#/Vol] Lymphocytes [#/volume] in Blood by Automated count 1.00-4.8 [facility] Lymphocytes [#/volume] in Bl ood by Automated countOrdered By: Sylvia Jackson on 07-07-2024 Lymphocytes (Bld) [#/Vol] 1.0 10*3/uL Normal 1.00-4.8 [facility] Comment on above: Performed By: #### C BC ####[address] Lymphocytes/100 WBC Auto (Bl d)Ordered By: Sylvia Centeno on 07-07-2024 Lymphocytes/100 WBC (Bld) Lymphocytes/100 leukocytes in Blood by Automated count . [facility] Lymphocytes/100 leukocytes i n Blood by Automated countOrdered By: Sylvia Centeno on 07-07-2024 Lymphocytes/100 WBC (Bld) 14.7 % Normal . [facility] Comment on above: Performed By: #### C BC ####[address] MCH Auto (RBC) [Entitic mass ]Ordered By: Sylvia Centeno on 07-07-2024 MCH (RBC) [Entitic mass] MCH [Entitic mass] by Automated count 24.7-34.3 [facility] MCH [Entitic mass] by Automa lyly countOrdered By: Sylvia Centeno on 07-07-2024 MCH (RBC) [Entitic mass] 25.0 pg Normal 24.7-34.3 [facility] Comment on above: Performed By: #### C BC ####[address] MCHC Auto (RBC) [Mass/Vol]Or dered By: Sylvia Centeno on 07-07-2024 MCHC (RBC) [Mass/Vol] MCHC [Mass/volume] by Automated count 32.0-35.0 [facility] MCHC (RBC) [Mass/Vol] 32.4 g/dL 32.0-35.0 [facility] MCV Auto (RBC) [Entitic vol] Ordered By: Sylvia Centeno on 07-07-2024 MCV (RBC) [Entitic vol] MCV [Entitic volume] by Automated count Low 80-100 [facility] MCV [Entitic volume] by Auto mated countOrdered By: Sylvia Centeno on 07-07-2024 MCV (RBC) [Entitic vol] 77.2 fL Low 80-100 [facility] Comment on above: Performed By: #### C BC ####[address] [place] [id number] [facility] Monocytes Auto (Bld) [#/Vol] Ordered By: Sylvia Centeno on 07-07-2024 Monocytes (Bld) [#/Vol] Automated blood monocyte count High 0.0-0.8 [facility] Monocytes [#/volume] in Bloo d by Automated countOrdered By: Sylvia Centeno on 07-07-2024 Monocytes (Bld) [#/Vol] 0.9 10*3/uL High 0.0-0.8 [facility] Comment on above: Performed By: #### C BC ####[place] [id number] [facility] Monocytes/100 WBC Auto (Bld) Ordered By: Sylvia Centeno on 07-07-2024 Monocytes/100 WBC (Bld) Automated monocyte % . [facility] Monocytes/100 leukocytes in Blood by Automated countOrdered By: Sylvia Jackson on 07-07-2024 Monocytes/100 WBC (Bld) 13.6 % Normal . [facility] Comment on above: Performed By: #### C BC ####[place] [id number] [facility] Neutrophils Auto (Bld) [#/Vo l]Ordered By: Sylvia Centeno on 07-07-2024 Neutrophils (Bld) [#/Vol] Neutrophils [#/volume] in Blood by Automated count 1.8-7.7 [facility] Neutrophils [#/volume] in Bl ood by Automated countOrdered By: Sylvia Jackson on 07-07-2024 Neutrophils (Bld) [#/Vol] 4.5 10*3/uL Normal 1.8-7.7 [facility] Comment on above: Performed By: #### C BC ####[address] [place] [address] [facility] Neutrophils/100 WBC Auto (Bl d)Ordered By: Sylvia Centeno on 07-07-2024 Neutrophils/100 WBC (Bld) Automated neutrophil % . [facility] Neutrophils/100 leukocytes i n Blood by Automated countOrdered By: Sylvia Centeno on 07-07-2024 Neutrophils/100 WBC (Bld) 69.5 % Normal . [facility] Comment on above: Performed By: #### C BC ####[facility] [id number] [place] [address] [facility] Nucleated erythrocytes [Pres ence] in Blood by Automated countOrdered By: Sylvia Centeno on 07-07-2024 Nucleated RBC Auto Ql (Bld) Nucleated erythrocytes [Presence] in Blood by Automated count 0-0.5 [facility] Nucleated RBC Auto Ql (Bld) 0.2 /100{WBC} 0-0.5 [facility] Platelet mean volume Auto (B ld) [Entitic vol]Ordered By: Sylvia Centeno on 07-07-2024 Platelet mean volume (Bld) [Entitic vol] Platelet mean volume [Entitic volume] in Blood by Automated count 6.3-10.7 [facility] Platelet mean volume [Entiti c volume] in Blood by Automated countOrdered By: Sylvia Centeno on 07-07-2024 Platelet mean volume (Bld) [Entitic vol] 8.3 fL Normal 6.3-10.7 [facility] Comment on above: Performed By: #### C BC ####[facility] [id number] [place] [address] [facility] Platelets Auto (Bld) [#/Vol] Ordered By: Sylvia Centeno on 07-07-2024 Platelets (Bld) [#/Vol] Platelets [#/volume] in Blood by Automated count Low 150-450 [facility] Platelets [#/volume] in Bloo d by Automated countOrdered By: Sylvia Centeno on 07-07-2024 Platelets (Bld) [#/Vol] 136 10*3/uL Low 150-450 [facility] Comment on above: Performed By: #### C BC ####[address] RBC Auto (Bld) [#/Vol]Ordere d By: Sylvia Centeno on 07-07-2024 RBC (Bld) [#/Vol] Erythrocytes [#/volu me] in Blood by Automated count 3.60-5.00 [facility] WBC Auto (Bld) [#/Vol]Ordere d By: Sylvia Centeno on 07-07-2024 WBC (Bld) [#/Vol] Leukocytes [#/volume ] in Blood by Automated count 3.8-11.6 [facility] Complete Blood Count Auto Di ffon 07-06-2024 Basophils (Bld) [#/Vol] 0.1 10*3/uL Normal 0.0-0.2 [facility] Comment on above: Result Comment: PERF ORMED BY: [facility] [address] [place] [address] PATHOLOGIST KEY BED INSTALLER ADALBERTO MARTEL M.D. Performed By: #### C BC ####[address] Basophils/100 WBC (Bld) 0.8 % Normal . [facility] Comment on above: Performed By: #### C BC ####[address] Eosinophils (Bld) [#/Vol] 0.1 10*3/uL Normal 0.0-0.45 [facility] Comment on above: Performed By: #### C BC ####[address] Eosinophils/100 WBC (Bld) 1.4 % Normal . [facility] Comment on above: Performed By: #### C BC ####[address] Erythrocyte distribution width (RBC) [Ratio] 20.7 % High 11.9-15.3 [facility] Comment on above: Performed By: #### C BC ####[address] Hematocrit (Bld) [Volume fraction] 28.6 % Low 34.0-46.4 [facility] Comment on above: Performed By: #### C BC ####[address] Hemoglobin (Bld) [Mass/Vol] 9.3 g/dL Low 11.8-15.4 [facility] Comment on above: Performed By: #### C BC ####[address] Lymphocytes (Bld) [#/Vol] 1.4 10*3/uL Normal 1.00-4.8 [facility] Comment on above: Performed By: #### C BC ####[address] Lymphocytes/100 WBC (Bld) 16.6 % Normal . [facility] Comment on above: Performed By: #### C BC ####[address] MCH (RBC) [Entitic mass] 24.8 pg Normal 24.7-34.3 [facility] Comment on above: Performed By: #### C BC ####[address] MCV (RBC) [Entitic vol] 76.6 fL Low 80-100 [facility] Comment on above: Performed By: #### C BC ####[address] Mean Corpuscular HGB Conc 32.4 g/dL Normal 32.0-35.0 [facility] Comment on above: Performed By: #### C BC ####[address] Monocytes (Bld) [#/Vol] 1.2 10*3/uL High 0.0-0.8 [facility] Comment on above: Performed By: #### C BC ####[address] Monocytes/100 WBC (Bld) 14.0 % Normal . [facility] Comment on above: Performed By: #### C BC ####[place] [id number] [facility] Neutrophils (Bld) [#/Vol] 5.6 10*3/uL Normal 1.8-7.7 [facility] Comment on above: Performed By: #### C BC ####[address] Neutrophils/100 WBC (Bld) 67.2 % Normal . [facility] Comment on above: Performed By: #### C BC ####[address] NRBC% 0.8 /100{WBC} High 0-0.5 [facility] Comment on above: Performed By: #### C BC ####[address] Platelet mean volume (Bld) [Entitic vol] 8.5 fL Normal 6.3-10.7 [facility] Comment on above: Performed By: #### C BC ####[place] [id number] [facility] Platelets (Bld) [#/Vol] 152 10*3/uL Normal 150-450 [facility] Comment on above: Performed By: #### C BC ####[place] [id number] [facility] RBC (Bld) [#/Vol] 3.73 10*6/uL Normal 3.60-5.[address] [facility] Comment on above: Performed By: #### C BC ####[place] [id number] [facility] WBC (Bld) [#/Vol] 8.3 10*3/uL Normal 3.8-11.6 [facility] Comment on above: Performed By: #### C BC ####[address] [place] [address] [facility] Glucose Poct Glucometerson 0 07-06-2024 Glucose [Mass/Vol] 245 mg/dL Normal [facility] Comment on above: Result Comment: [facility] Glucose Reference Range is dependent on time and content of last meal. Glucose of more than 200 mg/dL in a nonstressed, ambulatory subject supports the diagnosis of Diabetes Mellitus. PERFORMED BY: [place] [address] PATHOLOGIST KEY BED INSTALLER ADALBERTO MARTEL M.D. Performed By: #### G LULS ####Point of Care testing, Glucose [Mass/Vol] 138 mg/dL Normal [facility] Comment on above: Result Comment: [facility] Glucose Reference Range is dependent on time and content of last meal. Glucose of more than 200 mg/dL in a nonstressed, ambulatory subject supports the diagnosis of Diabetes Mellitus. PERFORMED BY: [place] [address] PATHOLOGIST KEY BED INSTALLER ADALBERTO MARTEL M.D. Performed By: #### G LULS ####Point of Care testing, Commemt1 Glu2: Cleaned Meter Normal [facility] Comment on above: Result Comment: PERF ORMED BY: [place] [address] PATHOLOGIST KEY BED INSTALLER ADALBERTO MARTEL M.D. Performed By: #### C RP, TSH3, ESR, BMP, BHOB, LIPASE, HEPATIC, SCAN CBC, PT #### [address] Glucose [Mass/Vol] 333 mg/dL Normal [facility] Comment on above: Result Comment: [facility] Glucose Reference Range is dependent on time and content of last meal. Glucose of more than 200 mg/dL in a nonstressed, ambulatory subject supports the diagnosis of Diabetes Mellitus. Performed By: #### C RP, TSH3, ESR, BMP, BHOB, LIPASE, HEPATIC, SCAN CBC, PT #### [address] Commemt1 Glu2: Cleaned Meter Normal [facility] Comment on above: Result Comment: PERF ORMED BY: [facility] [address] [facility] [place] [id number] PATHOLOGIST KEY BED INSTALLER ADALBERTO MARTEL M.D. Performed By: #### C RP, TSH3, ESR, BMP, BHOB, LIPASE, HEPATIC, SCAN CBC, PT #### [facility] [address] [place] [id number] [facility] Glucose [Mass/Vol] 270 mg/dL Normal [facility] Comment on above: Result Comment: [facility] Glucose Reference Range is dependent on time and content of last meal. Glucose of more than 200 mg/dL in a nonstressed, ambulatory subject supports the diagnosis of Diabetes Mellitus. Performed By: #### C RP, TSH3, ESR, BMP, BHOB, LIPASE, HEPATIC, SCAN CBC, PT #### [facility] [address] [place] [id number] [facility] No Panel InformationOrdered By: Sylvia Centeno on 07-06-2024 Urine Osmolality 502 mosm 250-900 [facility] Osmolality, Urineon 07-07-19 25 Osmolality, Urine 502 mosm Normal 250-900 [facility] Comment on above: Order Comment: [...] COLLECTION TIME 1430, COLLECTED BY LENCHO CINTRON (-[id number]) Result Comment: PERF ORMED BY: [facility] [address] [facility]. [place] [id number] PATHOLOGIST KEY BED INSTALLER ADALBERTO MARTEL M.D. Performed By: #### C RP, TSH3, ESR, BMP, BHOB, LIPASE, HEPATIC, SCAN CBC, PT #### [facility] [address] [place] [id number] [facility] Sodium [Moles/volume] in Uri neOrdered By: Sylviawily RamirezManuel on 07-06-2024 Sodium (U) [Moles/Vol] Sodium [Moles/volume] in Urine [facility] Comment on above: No reference range e stablished Sodium (U) [Moles/Vol] 11.0 mmol/L Normal [facility] Comment on above: No reference range e [...] COLLECTION TIME 1430, COLLECTED BY LENCHO CINTRON ([id number]) Result Comment: No r eference range established PERFORMED BY: [place] [address] PATHOLOGIST KEY BED INSTALLER ADALBERTO MARTEL M.D. Performed By: #### C RP, TSH3, ESR, BMP, BHOB, LIPASE, HEPATIC, SCAN CBC, PT #### [address] Basic Metabolic Panelon 05-0 Anion gap [Moles/Vol] 9.5 mmol/L Normal 6.0-15.0 [facility] Comment on above: Performed By: #### C RP, TSH3, ESR, BMP, BHOB, LIPASE, HEPATIC, SCAN CBC, PT #### [address] Calcium [Mass/Vol] 7.4 mg/dL Low 8.6-10.3 [facility] Comment on above: Performed By: #### C RP, TSH3, ESR, BMP, BHOB, LIPASE, HEPATIC, SCAN CBC, PT #### [address] Chloride [Moles/Vol] 97 mmol/L Low 98-107 [facility] Comment on above: Performed By: #### C RP, TSH3, ESR, BMP, BHOB, LIPASE, HEPATIC, SCAN CBC, PT #### [facility] [address] CO2 [Moles/Vol] 24.3 mmol/L Normal 21.0-31.0 [facility] Comment on above: Performed By: #### C RP, TSH3, ESR, BMP, BHOB, LIPASE, HEPATIC, SCAN CBC, PT #### [facility] [address] Creatinine [Mass/Vol] 0.39 mg/dL Low 0.60-1.20 [facility] Comment on above: Performed By: #### C RP, TSH3, ESR, BMP, BHOB, LIPASE, HEPATIC, SCAN CBC, PT #### [facility] [address] Creatinine Clr Calc Pharmacy 132.36 Normal [facility] Comment on above: Performed By: #### C RP, TSH3, ESR, BMP, BHOB, LIPASE, HEPATIC, SCAN CBC, PT #### [facility] [address] GFR/1.73 sq M.predicted MDRD (S/P/Bld) [Vol rate/Area] mL/min/{1.73_m2} Normal [facility] Comment on above: Performed By: #### C RP, TSH3, ESR, BMP, BHOB, LIPASE, HEPATIC, SCAN CBC, PT #### [facility] [address] Glucose [Mass/Vol] 204 mg/dL High 70-100 [facility] Comment on above: Result Comment: [place] Glucose Reference Range is dependent on time and content of last meal. Glucose of more than 200 mg/dL in a nonstressed, ambulatory subject supports the diagnosis of Diabetes Mellitus. ADA recommended reference range Performed By: #### C RP, TSH3, ESR, BMP, BHOB, LIPASE, HEPATIC, SCAN CBC, PT #### [facility] [address] Potassium [Moles/Vol] 4.8 mmol/L Normal 3.5-5.1 [facility] Comment on above: Performed By: #### C RP, TSH3, ESR, BMP, BHOB, LIPASE, HEPATIC, SCAN CBC, PT #### [address] Sodium [Moles/Vol] 126 mmol/L Low 136-145 [facility] Comment on above: Performed By: #### C RP, TSH3, ESR, BMP, BHOB, LIPASE, HEPATIC, SCAN CBC, PT #### [address] Urea nitrogen [Mass/Vol] 17 mg/dL Normal 7-25 [facility] Comment on above: Performed By: #### C RP, TSH3, ESR, BMP, BHOB, LIPASE, HEPATIC, SCAN CBC, PT #### [address] Complete Blood Count Auto Di ffon 07-05-2024 Basophils (Bld) [#/Vol] 0.1 10*3/uL Normal 0.0-0.2 [facility] Comment on above: Result Comment: PERF ORMED BY: [place] [address] PATHOLOGIST KEY BED INSTALLER ADALBERTO MARTEL M.D. Performed By: #### C BC, OSMO ####[address] Basophils/100 WBC (Bld) 0.7 % Normal . [facility] Comment on above: Performed By: #### C BC, OSMO ####[address] Eosinophils (Bld) [#/Vol] 0.1 10*3/uL Normal 0.0-0.45 [facility] Comment on above: Performed By: #### C BC, OSMO ####[address] Eosinophils/100 WBC (Bld) 1.0 % Normal . [facility] Comment on above: Performed By: #### C BC, OSMO ####[place] [id number] [facility] Erythrocyte distribution width (RBC) [Ratio] 20.9 % High 11.9-15.3 [facility] Comment on above: Performed By: #### C BC, OSMO ####[address] Hematocrit (Bld) [Volume fraction] 27.5 % Low 34.0-46.4 [facility] Comment on above: Performed By: #### C BC, OSMO ####[place] [id number] [facility] Hemoglobin (Bld) [Mass/Vol] 9.0 g/dL Low 11.8-15.4 [facility] Comment on above: Performed By: #### C BC, OSMO ####[address] Lymphocytes (Bld) [#/Vol] 1.4 10*3/uL Normal 1.00-4.8 [facility] Comment on above: Performed By: #### C BC, OSMO ####[address] Lymphocytes/100 WBC (Bld) 18.1 % Normal . [facility] Comment on above: Performed By: #### C BC, OSMO ####[place] [id number] [facility] MCH (RBC) [Entitic mass] 24.5 pg Low 24.7-34.3 [facility] Comment on above: Performed By: #### C BC, OSMO ####[place] [id number] [facility] MCV (RBC) [Entitic vol] 74.8 fL Low 80-100 [facility] Comment on above: Performed By: #### C BC, OSMO ####[place] [id number] [facility] Mean Corpuscular HGB Conc 32.8 g/dL Normal 32.0-35.0 [facility] Comment on above: Performed By: #### C BC, OSMO ####[address] [address] [facility] Monocytes (Bld) [#/Vol] 1.2 10*3/uL High 0.0-0.8 [facility] [facility] Comment on above: Performed By: #### C BC, OSMO ####[address] [address] [facility] Monocytes/100 WBC (Bld) 15.0 % Normal . [facility] Comment on above: Performed By: #### C AZALEA, OSMO ####[address] [address] [facility] Neutrophils (Bld) [#/Vol] 5.1 10*3/uL Normal 1.8-7.7 [facility] Comment on above: Performed By: #### C AZALEA, OSMO ####[place] [id number] [facility] Neutrophils/100 WBC (Bld) 65.2 % Normal . [facility] Comment on above: Performed By: #### C AZALEA, OSMO ####[address] [address] [facility] NRBC% 0.4 /100{WBC} Normal 0-0.5 [facility] Comment on above: Performed By: #### C AZALEA, OSMO ####[place] [id number] [facility] Platelet mean volume (Bld) [Entitic vol] 8.5 fL Normal 6.3-10.7 [facility] Comment on above: Performed By: #### C BC, OSMO ####[address] [address] [facility] Platelets (Bld) [#/Vol] 130 10*3/uL Low 150-450 [facility] Comment on above: Performed By: #### C BC, OSMO ####[place] [id number] [facility] RBC (Bld) [#/Vol] 3.67 10*6/uL Normal 3.60-5.[address] [facility] Comment on above: Performed By: #### C BC, OSMO ####[facility] WBC (Bld) [#/Vol] 7.8 10*3/uL Normal 3.8-11.6 The [facility] Comment on above: Performed By: #### C BC, OSMO ####[facility] [place] [id number] [facility] Cortisolon 07-05-2024 Cortisol 8.4 ug/dL Normal [facility] Comment on above: Result Comment: Refe rence range: AM 6 - 24 ug/dl PM <10 ug/dl [facility] physician practice coordinator and method: [employer] UNICEL DXI, POLYCLONAL ANTIBODY CORTISOL ASSAY. PERFORMED BY: [place] [address] PATHOLOGIST KEY BED INSTALLER ADALBERTO MARTEL M.D. Performed By: #### C RP, TSH3, ESR, BMP, BHOB, LIPASE, HEPATIC, SCAN CBC, PT #### [facility] [address] Cortisol [Mass/volume] in Se rum or PlasmaOrdered By: Sylvia Centeno on 07-05-2024 Cortisol [Mass/Vol] Random cortisol measurement [facility] Comment on above: [facility] physician practice coordinator and method:JORDI UNICEL DXI, POLYCLONAL ANTIBODY CORTISOL ASSAY.Reference range: AM 6 - 24 ug/dl PM <10 ug/dl Cortisol [Mass/Vol] 8.4 ug/dL [facility] Comment on above: [facility] physician practice coordinator and method:JORDI UNICEL DXI, POLYCLONAL ANTIBODY CORTISOL ASSAY.Reference range: AM 6 - 24 ug/dl PM <10 ug/dl Glucose Poct Glucometerson 0 07-05-2024 Glucose [Mass/Vol] 327 mg/dL Normal [facility] Comment on above: Result Comment: [place] Glucose Reference Range is dependent on time and content of last meal. Glucose of more than 200 mg/dL in a nonstressed, ambulatory subject supports the diagnosis of Diabetes Mellitus. PERFORMED BY: [place] [id number] PATHOLOGIST KEY BED INSTALLER ADALBERTO MARTEL M.D. Performed By: #### C RP, TSH3, ESR, BMP, BHOB, LIPASE, HEPATIC, SCAN CBC, PT #### [facility] [address] [place] [address] [place] Glucose [Mass/Vol] 309 mg/dL Normal [facility] Comment on above: Result Comment: [place] om Glucose Reference Range is dependent on time and content of last meal. Glucose of more than 200 mg/dL in a nonstressed, ambulatory subject supports the diagnosis of Diabetes Mellitus. PERFORMED BY: [place] [address] PATHOLOGIST KEY BED INSTALLER ADALBERTO MARTEL M.D. Performed By: #### C RP, TSH3, ESR, BMP, BHOB, LIPASE, HEPATIC, SCAN CBC, PT #### [place] [address] [place] Glucose [Mass/Vol] 326 mg/dL Normal [facility] Comment on above: Result Comment: [place] om Glucose Reference Range is dependent on time and content of last meal. Glucose of more than 200 mg/dL in a nonstressed, ambulatory subject supports the diagnosis of Diabetes Mellitus. PERFORMED BY: [place] [address] PATHOLOGIST KEY BED INSTALLER ADALBERTO MARTEL M.D. Performed By: #### C RP, TSH3, ESR, BMP, BHOB, LIPASE, HEPATIC, SCAN CBC, PT #### [facility] [address] [place] [address] [place] Glucose [Mass/Vol] 285 mg/dL Normal [facility] Comment on above: Result Comment: [place] om Glucose Reference Range is dependent on time and content of last meal. Glucose of more than 200 mg/dL in a nonstressed, ambulatory subject supports the diagnosis of Diabetes Mellitus. PERFORMED BY: [place] [id number] PATHOLOGIST KEY BED INSTALLER ADALBERTO MARTEL M.D. Performed By: #### G VICKIE ####Point of Care testing, Magnesium [Mass/volume] in S michael or PlasmaOrdered By: Sylvia Centeno on 07-05-2024 Magnesium [Mass/Vol] Magnesium [Mass/vol ume] in Serum or Plasma 1.9-2.7 [facility] Magnesium [Mass/Vol] 1.9 mg/dL Normal 1.9-2.7 [facility] Comment on above: Performed By: #### C RP, TSH3, ESR, BMP, BHOB, LIPASE, HEPATIC, SCAN CBC, PT #### [facility] [address] Osmolalityon 07-05-2024 Osmolality 274 mosm Low 278-305 [facility] Comment on above: Result Comment: PERF ORMED BY: [place] [address] PATHOLOGIST KEY BED INSTALLER ADALBERTO MARTEL M.D. Performed By: #### C BC, OSMO ####[facility] [address] Osmolality measurementOrdere d By: Sylvia Centeno on 07-05-2024 Osmolality (Unsp spec) [Osmolality] Osmolality measurement Low 278-305 [facility] Osmolality (Unsp spec) [Osmolality] 274 mosm Low 278-305 [facility] Thyrotropin [Units/volume] i n Serum or PlasmaOrdered By: Sylvia Centeno on 07-05-2024 TSH Qn Thyrotropin [Units/v olume] in Serum or Plasma 0.45-5.33 [facility] TSH Qn 1.72 m[IU]/L Normal 0.45-5.33 [facility] Comment on above: Performed By: #### C RP, TSH3, ESR, BMP, BHOB, LIPASE, HEPATIC, SCAN CBC, PT #### [facility] [address] US venous duplex LE RTon US venous duplex LE RT [facility] [address] [place] [address] Ultrasound Report Signed Patient: Teresa Lyle MR#: [id number] : 1960 Acct:[id number] Age/Sex: 64 / F ADM Date: 06/30/24 Loc: 4N Room: 0Z9042-0 Type: ADM IN Attending Dr: Digna Roberto [...] Garces MD,FACS,FSVS 07/05/2024 7:38 AM Dictation Location: [place] [address] Tech: Raegan Christianbarber Transcribed By: [facility] 07/05/24 0738 Dictated By: Harsha Garces MD 07/05/24 0737 Signed By: 07/05/24 0738 Normal [facility] Basic Metabolic Panelon Anion gap [Moles/Vol] 8.2 mmol/L Normal 6.0-15.0 [facility] Comment on above: Performed By: #### B MARCELL, CBC ####[facility] [id number] [place] [id number] [facility] Calcium [Mass/Vol] 7.6 mg/dL Low 8.6-10.3 [facility] Comment on above: Performed By: #### B MP, CBC ####[facility] [address] Chloride [Moles/Vol] 98 mmol/L Normal 98-107 [facility] Comment on above: Performed By: #### B MP, CBC ####[address] CO2 [Moles/Vol] 23.7 mmol/L Normal 21.0-31.0 The [facility] Comment on above: Performed By: #### B MP, CBC ####[address] Creatinine [Mass/Vol] 0.42 mg/dL Low 0.60-1.20 [facility] Comment on above: Performed By: #### B MP, CBC ####[address] Creatinine Clr Calc Pharmacy 123.08 Normal [facility] Comment on above: Result Comment: PERF ORMED BY: [place] [address] PATHOLOGIST KEY BED INSTALLER ADALBERTO MARTEL M.D. Performed By: #### B MP, CBC ####[address] GFR/1.73 sq M.predicted MDRD (S/P/Bld) [Vol rate/Area] mL/min/{1.73_m2} Normal [facility] Comment on above: Performed By: #### B MP, CBC ####[address] Glucose [Mass/Vol] 276 mg/dL High 70-100 [facility] Comment on above: Result Comment: [place] Glucose Reference Range is dependent on time and content of last meal. Glucose of more than 200 mg/dL in a nonstressed, ambulatory subject supports the diagnosis of Diabetes Mellitus. ADA recommended reference range Performed By: #### B MP, CBC ####[address] Potassium [Moles/Vol] 4.9 mmol/L Normal 3.5-5.1 [facility] Comment on above: Performed By: #### B MP, CBC ####[address] Sodium [Moles/Vol] 125 mmol/L Low 136-145 [facility] Comment on above: Performed By: #### B MP, CBC ####[place] [id number] [facility] Urea nitrogen [Mass/Vol] 18 mg/dL Normal 7-25 [facility] Comment on above: Performed By: #### B MP, CBC ####[place] [id number] [facility] Complete Blood Count Auto Di ffon 07-04-2024 Basophils (Bld) [#/Vol] 0.0 10*3/uL Normal 0.0-0.2 [facility] Comment on above: Result Comment: PERF ORMED BY: [facility] [address] [facility] [place] [address] PATHOLOGIST KEY BED INSTALLER ADALBERTO MARTEL M.D. Performed By: #### B MP, CBC ####[address] Basophils/100 WBC (Bld) 0.5 % Normal . [facility] Comment on above: Performed By: #### B MP, CBC ####[address] Eosinophils (Bld) [#/Vol] 0.0 10*3/uL Normal 0.0-0.45 [facility] Comment on above: Performed By: #### B MP, CBC ####[place] [id number] [facility] Eosinophils/100 WBC (Bld) 0.4 % Normal . [facility] Comment on above: Performed By: #### B MP, CBC ####[address] Erythrocyte distribution width (RBC) [Ratio] 21.4 % High 11.9-15.3 [facility] Comment on above: Performed By: #### B MP, CBC ####[address] Hematocrit (Bld) [Volume fraction] 24.7 % Low 34.0-46.4 [facility] Comment on above: Performed By: #### B MP, CBC ####[address] Hemoglobin (Bld) [Mass/Vol] 7.7 g/dL Low 11.8-15.4 [facility] Comment on above: Performed By: #### B MP, CBC ####[address] Lymphocytes (Bld) [#/Vol] 1.1 10*3/uL Normal 1.00-4.8 [facility] Comment on above: Performed By: #### B MP, CBC ####[address] Lymphocytes/100 WBC (Bld) 16.2 % Normal . [facility] Comment on above: Performed By: #### B MP, CBC ####[address] MCH (RBC) [Entitic mass] 23.3 pg Low 24.7-34.3 [facility] Comment on above: Performed By: #### B MP, CBC ####[address] MCV (RBC) [Entitic vol] 74.5 fL Low 80-100 [facility] Comment on above: Performed By: #### B MP, CBC ####[address] Mean Corpuscular HGB Conc 31.3 g/dL Low 32.0-35.0 [facility] Comment on above: Performed By: #### B MP, CBC ####[address] Monocytes (Bld) [#/Vol] 1.0 10*3/uL High 0.0-0.8 [facility] Comment on above: Performed By: #### B MP, CBC ####[address] [address] [facility] Monocytes/100 WBC (Bld) 15.1 % Normal . [facility] Comment on above: Performed By: #### B MP, CBC ####[address] [address] [facility] Neutrophils (Bld) [#/Vol] 4.7 10*3/uL Normal 1.8-7.7 [facility] Comment on above: Performed By: #### B MP, CBC ####[address] [address] [facility] Neutrophils/100 WBC (Bld) 67.8 % Normal . [facility] Comment on above: Performed By: #### B MP, CBC ####[address] NRBC% 0.2 /100{WBC} Normal 0-0.5 [facility] Comment on above: Performed By: #### B MP, CBC ####[place] [id number] [facility] Platelet mean volume (Bld) [Entitic vol] 8.5 fL Normal 6.3-10.7 [facility] Comment on above: Performed By: #### B MP, CBC ####[address] [address] [facility] Platelets (Bld) [#/Vol] 116 10*3/uL Low 150-450 [facility] Comment on above: Performed By: #### B MP, CBC ####[address] [address] [facility] RBC (Bld) [#/Vol] 3.31 10*6/uL Low 3.60-5.[address] [facility] Comment on above: Performed By: #### B MP, CBC ####[address] [address] [facility] WBC (Bld) [#/Vol] 6.9 10*3/uL Normal 3.8-11.6 [facility] Comment on above: Performed By: #### B MP, CBC ####[facility] [id number] Glucose Poct Glucometerson 0 07-04-2024 Glucose [Mass/Vol] 299 mg/dL Normal [facility] Comment on above: Result Comment: [place] om Glucose Reference Range is dependent on time and content of last meal. Glucose of more than 200 mg/dL in a nonstressed, ambulatory subject supports the diagnosis of Diabetes Mellitus. PERFORMED BY: [facility] [address] [place] [address] PATHOLOGIST KEY BED INSTALLER ADALBERTO MARTEL M.D. Performed By: #### G LULS ####Point of Care testing, Glucose [Mass/Vol] 311 mg/dL Normal [facility] Comment on above: Result Comment: [place] Glucose Reference Range is dependent on time and content of last meal. Glucose of more than 200 mg/dL in a nonstressed, ambulatory subject supports the diagnosis of Diabetes Mellitus. PERFORMED BY: [place] [address] PATHOLOGIST KEY BED INSTALLER ADALBERTO MARTEL M.D. Performed By: #### G LULS ####Point of Care testing, Commemt1 Glu2: Cleaned Meter Normal The [facility] Comment on above: Result Comment: PERF ORMED BY: [place] [address] PATHOLOGIST KEY BED INSTALLER ADALBERTO MARTEL M.D. Performed By: #### C RP, TSH3, ESR, BMP, BHOB, LIPASE, HEPATIC, SCAN CBC, PT #### [facility] [address] Glucose [Mass/Vol] 276 mg/dL Normal [facility] Comment on above: Result Comment: [place] om Glucose Reference Range is dependent on time and content of last meal. Glucose of more than 200 mg/dL in a nonstressed, ambulatory subject supports the diagnosis of Diabetes Mellitus. Performed By: #### C RP, TSH3, ESR, BMP, BHOB, LIPASE, HEPATIC, SCAN CBC, PT #### [address] Glucose [Mass/Vol] 299 mg/dL Normal [facility] Comment on above: Result Comment: [facility] Glucose Reference Range is dependent on time and content of last meal. Glucose of more than 200 mg/dL in a nonstressed, ambulatory subject supports the diagnosis of Diabetes Mellitus. PERFORMED BY: [place] [address] PATHOLOGIST KEY BED INSTALLER ADALBERTO MARTEL M.D. Performed By: #### G VICKIE ####Point of Care testing, Aerobic culture with sensiti vityOrdered By: Digna Roberto on 07-03-2024 Bacteria identified Aer cx Nom (Unsp spec) Aerobic culture with sensitivity [facility] Bacteria identified Aer cx Nom (Unsp spec) 2 Days [facility] Basic Metabolic Panelon Anion gap [Moles/Vol] 9.6 mmol/L Normal 6.0-15.0 [facility] Comment on above: Performed By: #### C RP, TSH3, ESR, BMP, BHOB, LIPASE, HEPATIC, SCAN CBC, PT #### [address] Calcium [Mass/Vol] 7.4 mg/dL Low 8.6-10.3 [facility] Comment on above: Performed By: #### C RP, TSH3, ESR, BMP, BHOB, LIPASE, HEPATIC, SCAN CBC, PT #### [place] [address] [place] Chloride [Moles/Vol] 99 mmol/L Normal 98-107 [facility] Comment on above: Performed By: #### C RP, TSH3, ESR, BMP, BHOB, LIPASE, HEPATIC, SCAN CBC, PT #### [place] [address] [place] CO2 [Moles/Vol] 23.9 mmol/L Normal 21.0-31.0 [facility] Comment on above: Performed By: #### C RP, TSH3, ESR, BMP, BHOB, LIPASE, HEPATIC, SCAN CBC, PT #### [facility] [address] Creatinine [Mass/Vol] 0.49 mg/dL Low 0.60-1.20 [facility] Comment on above: Performed By: #### C RP, TSH3, ESR, BMP, BHOB, LIPASE, HEPATIC, SCAN CBC, PT #### [facility] [address] Creatinine Clr Calc Pharmacy 94.15 Normal [facility] Comment on above: Result Comment: PERF ORMED BY: [place] [address] PATHOLOGIST KEY BED INSTALLER ADALBERTO MARTEL M.D. Performed By: #### C RP, TSH3, ESR, BMP, BHOB, LIPASE, HEPATIC, SCAN CBC, PT #### [address] GFR/1.73 sq M.predicted MDRD (S/P/Bld) [Vol rate/Area] mL/min/{1.73_m2} Normal [facility] Comment on above: Performed By: #### C RP, TSH3, ESR, BMP, BHOB, LIPASE, HEPATIC, SCAN CBC, PT #### [address] Glucose [Mass/Vol] 291 mg/dL High 70-100 [facility] Comment on above: Result Comment: [facility] Glucose Reference Range is dependent on time and content of last meal. Glucose of more than 200 mg/dL in a nonstressed, ambulatory subject supports the diagnosis of Diabetes Mellitus. ADA recommended reference range Performed By: #### C RP, TSH3, ESR, BMP, BHOB, LIPASE, HEPATIC, SCAN CBC, PT #### [address] Potassium [Moles/Vol] 4.5 mmol/L Normal 3.5-5.1 [facility] Comment on above: Performed By: #### C RP, TSH3, ESR, BMP, BHOB, LIPASE, HEPATIC, SCAN CBC, PT #### [address] Sodium [Moles/Vol] 128 mmol/L Low 136-145 [facility] Comment on above: Performed By: #### C RP, TSH3, ESR, BMP, BHOB, LIPASE, HEPATIC, SCAN CBC, PT #### [address] Urea nitrogen [Mass/Vol] 18 mg/dL Normal 7-25 [facility] Comment on above: Performed By: #### C RP, TSH3, ESR, BMP, BHOB, LIPASE, HEPATIC, SCAN CBC, PT #### [address] Complete Blood Count Auto Di ffon 07-03-2024 Basophils (Bld) [#/Vol] 0.0 10*3/uL Normal 0.0-0.2 [facility] Comment on above: Result Comment: PERF ORMED BY: [place] [address] PATHOLOGIST KEY BED INSTALLER ADALBERTO MARTEL M.D. Performed By: #### C RP, TSH3, ESR, BMP, BHOB, LIPASE, HEPATIC, SCAN CBC, PT #### [address] Basophils/100 WBC (Bld) 0.6 % Normal . [facility] Comment on above: Performed By: #### C RP, TSH3, ESR, BMP, BHOB, LIPASE, HEPATIC, SCAN CBC, PT #### [address] Eosinophils (Bld) [#/Vol] 0.0 10*3/uL Normal 0.0-0.45 [facility] Comment on above: Performed By: #### C RP, TSH3, ESR, BMP, BHOB, LIPASE, HEPATIC, SCAN CBC, PT #### [address] Eosinophils/100 WBC (Bld) 0.4 % Normal . [facility] Comment on above: Performed By: #### C RP, TSH3, ESR, BMP, BHOB, LIPASE, HEPATIC, SCAN CBC, PT #### [address] Erythrocyte distribution width (RBC) [Ratio] 21.7 % High 11.9-15.3 [facility] Comment on above: Performed By: #### C RP, TSH3, ESR, BMP, BHOB, LIPASE, HEPATIC, SCAN CBC, PT #### [address] Hematocrit (Bld) [Volume fraction] 26.9 % Low 34.0-46.4 [facility] Comment on above: Performed By: #### C RP, TSH3, ESR, BMP, BHOB, LIPASE, HEPATIC, SCAN CBC, PT #### [address] Hemoglobin (Bld) [Mass/Vol] 8.6 g/dL Low 11.8-15.4 [facility] Comment on above: Performed By: #### C RP, TSH3, ESR, BMP, BHOB, LIPASE, HEPATIC, SCAN CBC, PT #### [address] Lymphocytes (Bld) [#/Vol] 0.6 10*3/uL Low 1.00-4.8 [facility] Comment on above: Performed By: #### C RP, TSH3, ESR, BMP, BHOB, LIPASE, HEPATIC, SCAN CBC, PT #### [address] Lymphocytes/100 WBC (Bld) 10.5 % Normal . [facility] Comment on above: Performed By: #### C RP, TSH3, ESR, BMP, BHOB, LIPASE, HEPATIC, SCAN CBC, PT #### [address] MCH (RBC) [Entitic mass] 24.1 pg Low 24.7-34.3 [facility] Comment on above: Performed By: #### C RP, TSH3, ESR, BMP, BHOB, LIPASE, HEPATIC, SCAN CBC, PT #### [address] MCV (RBC) [Entitic vol] 74.9 fL Low 80-100 [facility] Comment on above: Performed By: #### C RP, TSH3, ESR, BMP, BHOB, LIPASE, HEPATIC, SCAN CBC, PT #### [address] Mean Corpuscular HGB Conc 32.2 g/dL Normal 32.0-35.0 [facility] Comment on above: Performed By: #### C RP, TSH3, ESR, BMP, BHOB, LIPASE, HEPATIC, SCAN CBC, PT #### [address] Monocytes (Bld) [#/Vol] 0.9 10*3/uL High 0.0-0.8 [facility] Comment on above: Performed By: #### C RP, TSH3, ESR, BMP, BHOB, LIPASE, HEPATIC, SCAN CBC, PT #### [address] Monocytes/100 WBC (Bld) 15.7 % Normal . [facility] Comment on above: Performed By: #### C RP, TSH3, ESR, BMP, BHOB, LIPASE, HEPATIC, SCAN CBC, PT #### [address] Neutrophils (Bld) [#/Vol] 4.2 10*3/uL Normal 1.8-7.7 [facility] Comment on above: Performed By: #### C RP, TSH3, ESR, BMP, BHOB, LIPASE, HEPATIC, SCAN CBC, PT #### [address] Neutrophils/100 WBC (Bld) 72.8 % Normal . [facility] Comment on above: Performed By: #### C RP, TSH3, ESR, BMP, BHOB, LIPASE, HEPATIC, SCAN CBC, PT #### [address] NRBC% 0.1 /100{WBC} Normal 0-0.5 [facility] Comment on above: Performed By: #### C RP, TSH3, ESR, BMP, BHOB, LIPASE, HEPATIC, SCAN CBC, PT #### [facility] [address] Platelet mean volume (Bld) [Entitic vol] 9.1 fL Normal 6.3-10.7 [facility] Comment on above: Performed By: #### C RP, TSH3, ESR, BMP, BHOB, LIPASE, HEPATIC, SCAN CBC, PT #### [facility] [address] Platelets (Bld) [#/Vol] 106 10*3/uL Low 150-450 [facility] Comment on above: Performed By: #### C RP, TSH3, ESR, BMP, BHOB, LIPASE, HEPATIC, SCAN CBC, PT #### [facility] [address] RBC (Bld) [#/Vol] 3.59 10*6/uL Low 3.60-5.[address] [facility] Comment on above: Performed By: #### C RP, TSH3, ESR, BMP, BHOB, LIPASE, HEPATIC, SCAN CBC, PT #### [address] WBC (Bld) [#/Vol] 5.8 10*3/uL Normal 3.8-11.6 [facility] Comment on above: Performed By: #### C RP, TSH3, ESR, BMP, BHOB, LIPASE, HEPATIC, SCAN CBC, PT #### [facility] [address] Glucose Poct Glucometerson 0 07-03-2024 Glucose [Mass/Vol] 279 mg/dL Normal [facility] Comment on above: Result Comment: [place] Glucose Reference Range is dependent on time and content of last meal. Glucose of more than 200 mg/dL in a nonstressed, ambulatory subject supports the diagnosis of Diabetes Mellitus. PERFORMED BY: [place] [address] PATHOLOGIST KEY BED INSTALLER ADALBERTO MARTEL M.D. Performed By: #### G LULS ####Point of Care testing, Glucose [Mass/Vol] 369 mg/dL Normal [facility] Comment on above: Result Comment: [facility] Glucose Reference Range is dependent on time and content of last meal. Glucose of more than 200 mg/dL in a nonstressed, ambulatory subject supports the diagnosis of Diabetes Mellitus. PERFORMED BY: [place] [address] PATHOLOGIST KEY BED INSTALLER ADALBERTO MARTEL M.D. Performed By: #### G LULS ####Point of Care testing, Commemt1 Normal [facility] Comment on above: Result Comment: Glu2 : WILL NOTIFY DR/RN Performed By: #### C RP, TSH3, ESR, BMP, BHOB, LIPASE, HEPATIC, SCAN CBC, PT #### [address] Commemt2 Cleaned Meter Normal [facility] Comment on above: Result Comment: PERF ORMED BY: [place] [address] PATHOLOGIST KEY BED INSTALLER ADALBERTO MARTEL M.D. Performed By: #### C RP, TSH3, ESR, BMP, BHOB, LIPASE, HEPATIC, SCAN CBC, PT #### [address] Glucose [Mass/Vol] 412 mg/dL Off scale high [facility] Comment on above: Result Comment: [facility] Glucose Reference Range is dependent on time and content of last meal. Glucose of more than 200 mg/dL in a nonstressed, ambulatory subject supports the diagnosis of Diabetes Mellitus. Performed By: #### C RP, TSH3, ESR, BMP, BHOB, LIPASE, HEPATIC, SCAN CBC, PT #### [address] Commemt1 Normal [facility] Comment on above: Result Comment: Glu2 : Will Repeat Test PERFORMED BY: [place] [id number] PATHOLOGIST KEY BED INSTALLER ADALBERTO MARTEL M.D. Performed By: #### C RP, TSH3, ESR, BMP, BHOB, LIPASE, HEPATIC, SCAN CBC, PT #### [facility] [address] [place] [id number] [facility] Glucose [Mass/Vol] 438 mg/dL Off scale high [facility] Comment on above: Result Comment: [place] Glucose Reference Range is dependent on time and content of last meal. Glucose of more than 200 mg/dL in a nonstressed, ambulatory subject supports the diagnosis of Diabetes Mellitus. Performed By: #### C RP, TSH3, ESR, BMP, BHOB, LIPASE, HEPATIC, SCAN CBC, PT #### [facility] [address] Glucose [Mass/Vol] 302 mg/dL Normal [facility] Comment on above: Result Comment: [facility] Glucose Reference Range is dependent on time and content of last meal. Glucose of more than 200 mg/dL in a nonstressed, ambulatory subject supports the diagnosis of Diabetes Mellitus. PERFORMED BY: [place] [address] PATHOLOGIST KEY BED INSTALLER ADALBERTO MARTEL M.D. Performed By: #### G VICKIE ####Point of Care testing, MRSA - MSSA Nasal PCRon MRSA - MSSA Nasal PCR MRSA Result MRSA Negative MSSA Result MSSA Negative Real-time PCR Test performed by real-time PCR Reference Range Reference Range for all targets = Neg / Not Detected Reference Note 20 -- Reference Note 26 -- PERFORMED BY: [place] [address] PATHOLOGIST KEY BED INSTALLER ADALBERTO MARTEL M.D. Normal [facility] Comment on above: Performed By: #### C RP, TSH3, ESR, BMP, BHOB, LIPASE, HEPATIC, SCAN CBC, PT #### [facility] [address] No Panel InformationOrdered By: Sylvia Centeno on 07-03-2024 Nasal Screen MRSA/MSSA [facility] No Panel InformationOrdered By: Digna Roberto on 07-03-2024 Bedside Glucose #2 Comment Cleaned meter [facility] Superficial Wound Cultureon 07-03-2024 Superficial Wound Culture Heavy Normal Skin Hortencia 2 Days PERFORMED BY: [place] [address] PATHOLOGIST KEY BED INSTALLER ADALBERTO MARTEL M.D. Normal [facility] Comment on above: Performed By: #### C USUP ####[address] BNP ser/plasOrdered By: Darin Waite on 07-02-2024 Natriuretic peptide B (Bld) [Mass/Vol] 50.0 pg/mL Normal 5-100 [facility] Comment on above: Result Comment: PERF ORMED BY: [place] [address] PATHOLOGIST KEY BED INSTALLER ADALBERTO MARTEL M.D. Performed By: #### C RP, TSH3, ESR, BMP, BHOB, LIPASE, HEPATIC, SCAN CBC, PT #### [address] Complete Blood Count Auto Di ffon 07-02-2024 Basophils (Bld) [#/Vol] 0.1 10*3/uL Normal 0.0-0.2 [facility] Comment on above: Result Comment: PERF ORMED BY: [place] [address] PATHOLOGIST KEY BED INSTALLER MOHAMED M EL-FAKHARANY M.D. Performed By: #### C RP, TSH3, ESR, BMP, BHOB, LIPASE, HEPATIC, SCAN CBC, PT #### [address] Basophils/100 WBC (Bld) 2.4 % Normal . [facility] Comment on above: Performed By: #### C RP, TSH3, ESR, BMP, BHOB, LIPASE, HEPATIC, SCAN CBC, PT #### [address] Eosinophils (Bld) [#/Vol] 0.1 10*3/uL Normal 0.0-0.45 [facility] Comment on above: Performed By: #### C RP, TSH3, ESR, BMP, BHOB, LIPASE, HEPATIC, SCAN CBC, PT #### [address] Eosinophils/100 WBC (Bld) 1.1 % Normal . [facility] Comment on above: Performed By: #### C RP, TSH3, ESR, BMP, BHOB, LIPASE, HEPATIC, SCAN CBC, PT #### [address] Erythrocyte distribution width (RBC) [Ratio] 21.2 % High 11.9-15.3 [facility] Comment on above: Performed By: #### C RP, TSH3, ESR, BMP, BHOB, LIPASE, HEPATIC, SCAN CBC, PT #### [address] Hematocrit (Bld) [Volume fraction] 28.1 % Low 34.0-46.4 [facility] Comment on above: Performed By: #### C RP, TSH3, ESR, BMP, BHOB, LIPASE, HEPATIC, SCAN CBC, PT #### [address] Hemoglobin (Bld) [Mass/Vol] 9.0 g/dL Low 11.8-15.4 [facility] Comment on above: Performed By: #### C RP, TSH3, ESR, BMP, BHOB, LIPASE, HEPATIC, SCAN CBC, PT #### [address] [place] [address] [place] Lymphocytes (Bld) [#/Vol] 0.9 10*3/uL Low 1.00-4.8 [facility] Comment on above: Performed By: #### C RP, TSH3, ESR, BMP, BHOB, LIPASE, HEPATIC, SCAN CBC, PT #### [address] Lymphocytes/100 WBC (Bld) 16.8 % Normal . [facility] Comment on above: Performed By: #### C RP, TSH3, ESR, BMP, BHOB, LIPASE, HEPATIC, SCAN CBC, PT #### [address] MCH (RBC) [Entitic mass] 23.5 pg Low 24.7-34.3 [facility] Comment on above: Performed By: #### C RP, TSH3, ESR, BMP, BHOB, LIPASE, HEPATIC, SCAN CBC, PT #### [address] MCV (RBC) [Entitic vol] 73.1 fL Low 80-100 [facility] Comment on above: Performed By: #### C RP, TSH3, ESR, BMP, BHOB, LIPASE, HEPATIC, SCAN CBC, PT #### [address] Mean Corpuscular HGB Conc 32.1 g/dL Normal 32.0-35.0 [facility] Comment on above: Performed By: #### C RP, TSH3, ESR, BMP, BHOB, LIPASE, HEPATIC, SCAN CBC, PT #### [address] Monocytes (Bld) [#/Vol] 0.7 10*3/uL Normal 0.0-0.8 [facility] Comment on above: Performed By: #### C RP, TSH3, ESR, BMP, BHOB, LIPASE, HEPATIC, SCAN CBC, PT #### [address] Monocytes/100 WBC (Bld) 14.2 % Normal . [facility] Comment on above: Performed By: #### C RP, TSH3, ESR, BMP, BHOB, LIPASE, HEPATIC, SCAN CBC, PT #### [address] Neutrophils (Bld) [#/Vol] 3.4 10*3/uL Normal 1.8-7.7 [facility] Comment on above: Performed By: #### C RP, TSH3, ESR, BMP, BHOB, LIPASE, HEPATIC, SCAN CBC, PT #### [address] Neutrophils/100 WBC (Bld) 65.5 % Normal . [facility] Comment on above: Performed By: #### C RP, TSH3, ESR, BMP, BHOB, LIPASE, HEPATIC, SCAN CBC, PT #### [address] NRBC% 0.1 /100{WBC} Normal 0-0.5 [facility] Comment on above: Performed By: #### C RP, TSH3, ESR, BMP, BHOB, LIPASE, HEPATIC, SCAN CBC, PT #### [address] Platelet mean volume (Bld) [Entitic vol] 8.3 fL Normal 6.3-10.7 [facility] Comment on above: Performed By: #### C RP, TSH3, ESR, BMP, BHOB, LIPASE, HEPATIC, SCAN CBC, PT #### [address] Platelets (Bld) [#/Vol] 88 10*3/uL Low 150-450 [facility] Comment on above: Performed By: #### C RP, TSH3, ESR, BMP, BHOB, LIPASE, HEPATIC, SCAN CBC, PT #### [address] RBC (Bld) [#/Vol] 3.84 10*6/uL Normal 3.60-5.[address] [facility] Comment on above: Performed By: #### C RP, TSH3, ESR, BMP, BHOB, LIPASE, HEPATIC, SCAN CBC, PT #### [facility] [address] WBC (Bld) [#/Vol] 5.2 10*3/uL Normal 3.8-11.6 [facility] Comment on above: Performed By: #### C RP, TSH3, ESR, BMP, BHOB, LIPASE, HEPATIC, SCAN CBC, PT #### [facility] [address] Glucose Poct Glucometerson 0 07-02-2024 Glucose [Mass/Vol] 351 mg/dL Normal [facility] Comment on above: Result Comment: [place] Glucose Reference Range is dependent on time and content of last meal. Glucose of more than 200 mg/dL in a nonstressed, ambulatory subject supports the diagnosis of Diabetes Mellitus. PERFORMED BY: [place] [address] PATHOLOGIST KEY BED INSTALLER ADALBERTO MARTEL M.D. Performed By: #### C RP, TSH3, ESR, BMP, BHOB, LIPASE, HEPATIC, SCAN CBC, PT #### [address] Glucose [Mass/Vol] 222 mg/dL Normal [facility] Comment on above: Result Comment: [place] Glucose Reference Range is dependent on time and content of last meal. Glucose of more than 200 mg/dL in a nonstressed, ambulatory subject supports the diagnosis of Diabetes Mellitus. PERFORMED BY: [place] [address] PATHOLOGIST KEY BED INSTALLER ADALBERTO MARTEL M.D. Performed By: #### G LULS ####Point of Care testing, Glucose [Mass/Vol] 267 mg/dL Normal [facility] Comment on above: Result Comment: [place] Glucose Reference Range is dependent on time and content of last meal. Glucose of more than 200 mg/dL in a nonstressed, ambulatory subject supports the diagnosis of Diabetes Mellitus. PERFORMED BY: [place] [phone] PATHOLOGIST KEY BED INSTALLER ADALBERTO MARTEL M.D. Performed By: #### G LULS ####Point of Care testing, Glucose [Mass/Vol] 266 mg/dL Normal [facility] Comment on above: Result Comment: [facility] Glucose Reference Range is dependent on time and content of last meal. Glucose of more than 200 mg/dL in a nonstressed, ambulatory subject supports the diagnosis of Diabetes Mellitus. PERFORMED BY: [place] [address] PATHOLOGIST KEY BED INSTALLER ADALBERTO MARTEL M.D. Performed By: #### C RP, TSH3, ESR, BMP, BHOB, LIPASE, HEPATIC, SCAN CBC, PT #### [address] Glucose [Mass/Vol] 208 mg/dL Normal [facility] Comment on above: Result Comment: [facility] Glucose Reference Range is dependent on time and content of last meal. Glucose of more than 200 mg/dL in a nonstressed, ambulatory subject supports the diagnosis of Diabetes Mellitus. PERFORMED BY: [place] [address] PATHOLOGIST KEY BED INSTALLER ADALBERTO MARTEL M.D. Performed By: #### C RP, TSH3, ESR, BMP, BHOB, LIPASE, HEPATIC, SCAN CBC, PT #### [address] Commemt1 Glu2: Cleaned Meter Normal [facility] Comment on above: Result Comment: PERF ORMED BY: [place] [address] PATHOLOGIST KEY BED INSTALLER ADALBERTO MARTEL M.D. Performed By: #### G LULS ####Point of Care testing, Glucose [Mass/Vol] 249 mg/dL Normal [facility] Comment on above: Result Comment: [place] Glucose Reference Range is dependent on time [...] in Platelet poor plasma by Coagulation assay [facility] Comment on above: INR Therapeutic Rang e [...] Coag (PPP) [Relative time] 1.2 {INR} Normal [facility] Comment on above: INR Therapeutic Rang e [...] heart valves: 3 - 4.5 PERFORMED BY: [facility] [address] [place] [address] PATHOLOGIST KEY BED INSTALLER ADALBERTO MARTEL M.D. Performed By: #### P T ####[facility] [id number] [place] [address] [facility] Natriuretic peptide B [Mass/ Vol]Ordered By: Solo Waite on 07-02-2024 Natriuretic peptide B (Bld) [Mass/Vol] BNP ser/plas 5-100 [facility] Prothrombin time (PT)Ordered By: Roger Robbins on 07-02-2024 PT Coag (PPP) [Time] Prothrombin time (PT) High 9.0- 12.9 [facility] Comment on above: A hematocrit value g reater than 55% may lead to inaccurate results in coagulation testing. Patients having hematocrit values >55% require a special collection tube for coagulation studies. Please contact the laboratory at [phone] for redraw instructions. PT Coag (PPP) [Time] 14.0 s High 9.0-12.9 [facility] Comment on above: A hematocrit value g reater than 55% may lead to inaccurate results in coagulation testing. Patients having hematocrit values >55% require a special collection tube for coagulation studies. Please contact the laboratory at [phone] for redraw instructions. Result Comment: A he matocrit value greater than 55% may lead to inaccurate results in coagulation testing. Patients having hematocrit values >55% require a special collection tube for coagulation studies. Please contact the laboratory at [phone] for redraw instructions. Performed By: #### P T ####[facility] [address] X-ray reportOrdered By: Loco Aaron on 07-02-2024 Study report [facility] [address] [place] [address] XRay Report Signed Patient: Teresa Lyle MR#: [id number] : 1960 Acct:[id number] Age/Sex: 64 / F ADM Date: 5 Loc: Room: [address] [place] [address] Type: ADM IN Attending Dr: Digna Roberto [...] Aaron Jr, DO 07/02/242031 Signed By: 07/02/242032 [facility] X-ray reportOrdered By: Farrukh Lange on 07-02-2024 Study report [facility] [place] [address] XRay Report Signed Patient: Teresa Lyle MR#: [id number] : 1960 Acct:[id number] Age/Sex: 64 / F ADM Date: Loc: Room: [address] [place] [address] Type: ADM IN Attending Dr: Digna Roberto MD Copies to: DO Digna Peraza MD~ Ordering Provider: Roger Robbins DO Date of Service: 07/02/24 XR/XR pelvis 1-2V: Hip Fracture Post op ([id number]) XR/XR femur RT 2V*: Hip Fracture Post [...] Navarro Lange MD 07/02/24946 Signed By: 07/02/24950 [facility] Work Phone: XR hip RT min 2V(w/wo pelvis )*on 07-02-2024 XR hip RT min 2V(w/wo pelvis)* [facility] Main [address] [address] XRay Report Signed Patient: Teresa Lyle MR#: [id number] : 1960 Acct:[id number] Age/Sex: 64 / F ADM Date: 06/30/24 Loc: 4N Room: [address] [place] [address] Type: ADM IN Attending Dr: Digna Roberto [...] 8:33 PM Dictation Location: [id number] Transcribed By: [facility] 07/02/242032 Dictated By: Rubin Aaron Jr, DO 07/02/242031 Signed By: 07/02/242032 Normal [facility] XR pelvis 1-2Von 07-02-2024 XR pelvis 1-2V [address] [address] XRay Report Signed Patient: Teresa Lyle MR#: [id number] : 1960 Acct:[id number] Age/Sex: 64 / F ADM Date: 06/30/24 Loc: 4N Room: [address] [place] [address] Type: ADM IN Attending Dr: Digna Roberto MD Copies to: DO Digna Peraza MD Ordering Provider: Roger Robbins DO Date of Service: 07/02/24 XR/XR pelvis 1-2V: Hip Fracture Post op ([id number]) XR/XR femur RT 2V*: Hip Fracture Post [...] Lange M.D. 07/02/2024 9:51 AM Dictation Location: [facility]- Transcribed By: [facility] 07/02/2451 Dictated By: Navarro Lange MD 07/02/2447 Signed By: 07/02/2451 Normal [facility] A1C with Estimated Average G neeru 07-01-2024 Glucose [Mass/Vol] 332 mg/dL Normal [facility] Comment on above: Result Comment: PERF ORMED BY: [facility] [address] [place] [address] PATHOLOGIST KEY BED INSTALLER ADALBERTO MARTEL M.D. Performed By: #### P TT, PT, MG, BMP, FE and TIBC, A1C WTH eA, SABAS, CBC ####[place] [address] [place] [id number] [facility] Basic Metabolic Panelon 05-0 Anion gap [Moles/Vol] 7.5 mmol/L Normal 6.0-15.0 [facility] Comment on above: Performed By: #### P TT, PT, MG, BMP, FE and TIBC, A1C WTH eA, SABAS, CBC ####[place] [address] [place] [address] [facility] Calcium [Mass/Vol] 7.7 mg/dL Low 8.6-10.3 [facility] Comment on above: Performed By: #### P TT, PT, MG, BMP, FE and TIBC, A1C WTH eA, SABAS, CBC ####[place] [address] [place] [id number] [facility] Chloride [Moles/Vol] 105 mmol/L Normal 98-107 [facility] Comment on above: Performed By: #### P TT, PT, MG, BMP, FE and TIBC, A1C WTH eA, SABAS, CBC ####[address] CO2 [Moles/Vol] 23.5 mmol/L Normal 21.0-31.0 [facility] Comment on above: Performed By: #### P TT, PT, MG, BMP, FE and TIBC, A1C WTH eA, SABAS, CBC ####[address] Creatinine [Mass/Vol] 0.39 mg/dL Low 0.60-1.20 [facility] Comment on above: Performed By: #### P TT, PT, MG, BMP, FE and TIBC, A1C WTH eA, SABAS, CBC ####[address] Creatinine Clr Calc Pharmacy 118.29 Normal [facility] Comment on above: Performed By: #### P TT, PT, MG, BMP, FE and TIBC, A1C WTH eA, SABAS, CBC ####[address] GFR/1.73 sq M.predicted MDRD (S/P/Bld) [Vol rate/Area] mL/min/{1.73_m2} Normal [facility] Comment on above: Performed By: #### P TT, PT, MG, BMP, FE and TIBC, A1C WTH eA, SABAS, CBC ####[address] Glucose [Mass/Vol] 294 mg/dL Significant change up 70-100 [facility] Comment on above: Result Comment: [place] Glucose Reference Range is dependent on time and content of last meal. Glucose of more than 200 mg/dL in a nonstressed, ambulatory subject supports the diagnosis of Diabetes Mellitus. ADA recommended reference range Performed By: #### P TT, PT, MG, BMP, FE and TIBC, A1C WTH eA, SABAS, CBC ####[address] [place] [address] [place] Potassium [Moles/Vol] 4.0 mmol/L Normal 3.5-5.1 [facility] Comment on above: Performed By: #### P TT, PT, MG, BMP, FE and TIBC, A1C WTH eA, SABAS, CBC ####[place] [address] [address] Sodium [Moles/Vol] 132 mmol/L Low 136-145 [facility] Comment on above: Performed By: #### P TT, PT, MG, BMP, FE and TIBC, A1C WTH eA, SABAS, CBC ####[place] [address] [address] Urea nitrogen [Mass/Vol] 11 mg/dL Normal 7-25 [facility] Comment on above: Performed By: #### P TT, PT, MG, BMP, FE and TIBC, A1C WTH eA, SABAS, CBC ####[place] [address] [address] Blood estimated average gluc ose determination by estimation from glycated hemoglobinOrdered By: Coco Zamora on 07-01-2024 Average glucose Estimated from glycated hemoglobin (Bld) [Mass/Vol] Glucose mean value [Mass/volume] in Blood Estimated from glycated hemoglobin [facility] Average glucose Estimated from glycated hemoglobin (Bld) [Mass/Vol] 332 mg/dL [facility] Complete Blood Count Auto Di ffon 07-01-2024 Basophils (Bld) [#/Vol] 0.1 10*3/uL Normal 0.0-0.2 [facility] Comment on above: Result Comment: PERF ORMED BY: [facility] [address] [place] [address] PATHOLOGIST KEY BED INSTALLER ADALBERTO MARTEL M.D. Performed By: #### C RP, TSH3, ESR, BMP, BHOB, LIPASE, HEPATIC, SCAN CBC, PT #### [facility] [address] Basophils/100 WBC (Bld) 1.3 % Normal . [facility] Comment on above: Performed By: #### C RP, TSH3, ESR, BMP, BHOB, LIPASE, HEPATIC, SCAN CBC, PT #### [address] Eosinophils (Bld) [#/Vol] 0.1 10*3/uL Normal 0.0-0.45 [facility] Comment on above: Performed By: #### C RP, TSH3, ESR, BMP, BHOB, LIPASE, HEPATIC, SCAN CBC, PT #### [address] Eosinophils/100 WBC (Bld) 2.0 % Normal . [facility] Comment on above: Performed By: #### C RP, TSH3, ESR, BMP, BHOB, LIPASE, HEPATIC, SCAN CBC, PT #### [address] Erythrocyte distribution width (RBC) [Ratio] 21.2 % High 11.9-15.3 [facility] Comment on above: Performed By: #### C RP, TSH3, ESR, BMP, BHOB, LIPASE, HEPATIC, SCAN CBC, PT #### [address] Hematocrit (Bld) [Volume fraction] 28.2 % Low 34.0-46.4 [facility] Comment on above: Performed By: #### C RP, TSH3, ESR, BMP, BHOB, LIPASE, HEPATIC, SCAN CBC, PT #### [address] Hemoglobin (Bld) [Mass/Vol] 9.0 g/dL Low 11.8-15.4 [facility] Comment on above: Performed By: #### C RP, TSH3, ESR, BMP, BHOB, LIPASE, HEPATIC, SCAN CBC, PT #### [address] Lymphocytes (Bld) [#/Vol] 1.0 10*3/uL Normal 1.00-4.8 [facility] Comment on above: Performed By: #### C RP, TSH3, ESR, BMP, BHOB, LIPASE, HEPATIC, SCAN CBC, PT #### [address] Lymphocytes/100 WBC (Bld) 18.3 % Normal . [facility] Comment on above: Performed By: #### C RP, TSH3, ESR, BMP, BHOB, LIPASE, HEPATIC, SCAN CBC, PT #### [address] MCH (RBC) [Entitic mass] 23.5 pg Low 24.7-34.3 [facility] Comment on above: Performed By: #### C RP, TSH3, ESR, BMP, BHOB, LIPASE, HEPATIC, SCAN CBC, PT #### [address] MCV (RBC) [Entitic vol] 73.2 fL Low 80-100 [facility] Comment on above: Performed By: #### C RP, TSH3, ESR, BMP, BHOB, LIPASE, HEPATIC, SCAN CBC, PT #### [address] Mean Corpuscular HGB Conc 32.1 g/dL Normal 32.0-35.0 [facility] Comment on above: Performed By: #### C RP, TSH3, ESR, BMP, BHOB, LIPASE, HEPATIC, SCAN CBC, PT #### [address] Monocytes (Bld) [#/Vol] 0.7 10*3/uL Normal 0.0-0.8 [facility] Comment on above: Performed By: #### C RP, TSH3, ESR, BMP, BHOB, LIPASE, HEPATIC, SCAN CBC, PT #### [address] Monocytes/100 WBC (Bld) 13.8 % Normal . [facility] Comment on above: Performed By: #### C RP, TSH3, ESR, BMP, BHOB, LIPASE, HEPATIC, SCAN CBC, PT #### [address] Neutrophils (Bld) [#/Vol] 3.4 10*3/uL Normal 1.8-7.7 [facility] Comment on above: Performed By: #### C RP, TSH3, ESR, BMP, BHOB, LIPASE, HEPATIC, SCAN CBC, PT #### [facility] [address] Neutrophils/100 WBC (Bld) 64.6 % Normal . [facility] Comment on above: Performed By: #### C RP, TSH3, ESR, BMP, BHOB, LIPASE, HEPATIC, SCAN CBC, PT #### [facility] [address] NRBC% 0.1 /100{WBC} Normal 0-0.5 [facility] Comment on above: Performed By: #### C RP, TSH3, ESR, BMP, BHOB, LIPASE, HEPATIC, SCAN CBC, PT #### [facility] [address] Platelet mean volume (Bld) [Entitic vol] 8.4 fL Normal 6.3-10.7 [facility] Comment on above: Performed By: #### C RP, TSH3, ESR, BMP, BHOB, LIPASE, HEPATIC, SCAN CBC, PT #### [facility] [address] [place] [address] [place] Platelets (Bld) [#/Vol] 85 10*3/uL Significant change down 150-450 [facility] Comment on above: Performed By: #### C RP, TSH3, ESR, BMP, BHOB, LIPASE, HEPATIC, SCAN CBC, PT #### [facility] [address] [place] [address] [place] RBC (Bld) [#/Vol] 3.85 10*6/uL Normal 3.60-5.[address] [facility] Comment on above: Performed By: #### C RP, TSH3, ESR, BMP, BHOB, LIPASE, HEPATIC, SCAN CBC, PT #### [facility] [address] [place] [address] [place] WBC (Bld) [#/Vol] 5.3 10*3/uL Normal 3.8-11.6 [facility] Comment on above: Performed By: #### C RP, TSH3, ESR, BMP, BHOB, LIPASE, HEPATIC, SCAN CBC, PT #### [address] Basophils (Bld) [#/Vol] 0.0 10*3/uL Normal 0.0-0.2 [facility] Comment on above: Result Comment: PERF ORMED BY: [place] [address] PATHOLOGIST KEY BED INSTALLER ADALBERTO MARTEL M.D. Performed By: #### P TT, PT, MG, BMP, FE and TIBC, A1C WTH eA, SABAS, CBC ####[address] Basophils/100 WBC (Bld) 0.8 % Normal . [facility] Comment on above: Performed By: #### P TT, PT, MG, BMP, FE and TIBC, A1C WTH eA, SABAS, CBC ####[address] Eosinophils (Bld) [#/Vol] 0.1 10*3/uL Normal 0.0-0.45 [facility] Comment on above: Performed By: #### P TT, PT, MG, BMP, FE and TIBC, A1C WTH eA, SABAS, CBC ####[address] Eosinophils/100 WBC (Bld) 1.1 % Normal . [facility] Comment on above: Performed By: #### P TT, PT, MG, BMP, FE and TIBC, A1C WTH eA, SABAS, CBC ####[address] Erythrocyte distribution width (RBC) [Ratio] 21.8 % High 11.9-15.3 [facility] Comment on above: Performed By: #### P TT, PT, MG, BMP, FE and TIBC, A1C WTH eA, SABAS, CBC ####[place] [address] [place] Hematocrit (Bld) [Volume fraction] 29.5 % Low 34.0-46.4 [facility] Comment on above: Performed By: #### P TT, PT, MG, BMP, FE and TIBC, A1C WTH eA, SABAS, CBC ####[address] Hemoglobin (Bld) [Mass/Vol] 9.5 g/dL Low 11.8-15.4 [facility] Comment on above: Performed By: #### P TT, PT, MG, BMP, FE and TIBC, A1C WTH eA, SABAS, CBC ####[address] Lymphocytes (Bld) [#/Vol] 0.8 10*3/uL Low 1.00-4.8 [facility] Comment on above: Performed By: #### P TT, PT, MG, BMP, FE and TIBC, A1C WTH eA, SABAS, CBC ####[address] Lymphocytes/100 WBC (Bld) 13.6 % Normal . [facility] Comment on above: Performed By: #### P TT, PT, MG, BMP, FE and TIBC, A1C WTH eA, SABAS, CBC ####[address] MCH (RBC) [Entitic mass] 23.7 pg Low 24.7-34.3 [facility] Comment on above: Performed By: #### P TT, PT, MG, BMP, FE and TIBC, A1C WTH eA, SABAS, CBC ####[address] MCV (RBC) [Entitic vol] 73.9 fL Low 80-100 [facility] Comment on above: Performed By: #### P TT, PT, MG, BMP, FE and TIBC, A1C WTH eA, SABAS, CBC ####[address] Mean Corpuscular HGB Conc 32.1 g/dL Normal 32.0-35.0 [facility] Comment on above: Performed By: #### P TT, PT, MG, BMP, FE and TIBC, A1C WTH eA, SABAS, CBC ####[address] Monocytes (Bld) [#/Vol] 0.8 10*3/uL Normal 0.0-0.8 [facility] Comment on above: Performed By: #### P TT, PT, MG, BMP, FE and TIBC, A1C WTH eA, SABAS, CBC ####[address] Monocytes/100 WBC (Bld) 12.8 % Normal . [facility] Comment on above: Performed By: #### P TT, PT, MG, BMP, FE and TIBC, A1C WTH eA, SABAS, CBC ####[address] Neutrophils (Bld) [#/Vol] 4.2 10*3/uL Normal 1.8-7.7 [facility] Comment on above: Performed By: #### P TT, PT, MG, BMP, FE and TIBC, A1C WTH eA, SABAS, CBC ####[address] Neutrophils/100 WBC (Bld) 71.7 % Normal . [facility] Comment on above: Performed By: #### P TT, PT, MG, BMP, FE and TIBC, A1C WTH eA, SABAS, CBC ####[address] NRBC% 0.1 /100{WBC} Normal 0-0.5 [facility] Comment on above: Performed By: #### P TT, PT, MG, BMP, FE and TIBC, A1C WTH eA, SABAS, CBC ####[address] Platelet mean volume (Bld) [Entitic vol] 8.8 fL Normal 6.3-10.7 [facility] Comment on above: Performed By: #### P TT, PT, MG, BMP, FE and TIBC, A1C WTH eA, SABAS, CBC ####[place] [id number] [facility] Platelets (Bld) [#/Vol] 58 10*3/uL Low 150-450 [facility] Comment on above: Performed By: #### P TT, PT, MG, BMP, FE and TIBC, A1C WTH eA, SABAS, CBC ####[place] [id number] [facility] RBC (Bld) [#/Vol] 3.99 10*6/uL Normal 3.60-5.[address] [facility] Comment on above: Performed By: #### P TT, PT, MG, BMP, FE and TIBC, A1C WTH eA, SABAS, CBC ####[address] WBC (Bld) [#/Vol] 5.9 10*3/uL Normal 3.8-11.6 [facility] Comment on above: Performed By: #### P TT, PT, MG, BMP, FE and TIBC, A1C WTH eA, SABAS, CBC ####[address] Ferritin [Mass/volume] in Se rum or PlasmaOrdered By: Coco Zamora on 07-01-2024 Ferritin [Mass/Vol] Ferritin [Mass/volum e] in Serum or Plasma 11.0-306.8 [facility] Ferritin [Mass/Vol] 11.3 ng/mL Normal 11.0-306.8 [facility] Comment on above: Result Comment: PERF ORMED BY: [facility] [address] [place] [id number] PATHOLOGIST KEY BED INSTALLER ADALBERTO MARTEL M.D. Performed By: #### P TT, PT, MG, BMP, FE and TIBC, A1C WTH eA, SABAS, CBC ####[place] [id number] [facility] Glucose Poct Glucometerson 0 07-01-2024 Glucose [Mass/Vol] 261 mg/dL Normal [facility] Comment on above: Result Comment: [place] om Glucose Reference Range is dependent on time and content of last meal. Glucose of more than 200 mg/dL in a nonstressed, ambulatory subject supports the diagnosis of Diabetes Mellitus. PERFORMED BY: [place] [address] PATHOLOGIST KEY BED INSTALLER ADALBERTO MARTEL M.D. Performed By: #### C RP, TSH3, ESR, BMP, BHOB, LIPASE, HEPATIC, SCAN CBC, PT #### [address] Glucose [Mass/Vol] 351 mg/dL Normal [facility] Comment on above: Result Comment: [place] Glucose Reference Range is dependent on time and content of last meal. Glucose of more than 200 mg/dL in a nonstressed, ambulatory subject supports the diagnosis of Diabetes Mellitus. PERFORMED BY: [place] [address] PATHOLOGIST KEY BED INSTALLER ADALBERTO MARTEL M.D. Performed By: #### G LULS ####Point of Care testing, Glucose [Mass/Vol] 270 mg/dL Normal [facility] Comment on above: Result Comment: [place] Glucose Reference Range is dependent on time and content of last meal. Glucose of more than 200 mg/dL in a nonstressed, ambulatory subject supports the diagnosis of Diabetes Mellitus. PERFORMED BY: [place] [address] PATHOLOGIST KEY BED INSTALLER ADALBERTO MARTEL M.D. Performed By: #### C RP, TSH3, ESR, BMP, BHOB, LIPASE, HEPATIC, SCAN CBC, PT #### [address] Glucose [Mass/Vol] 269 mg/dL Normal [facility] Comment on above: Result Comment: [place] Glucose Reference Range is dependent on time and content of last meal. Glucose of more than 200 mg/dL in a nonstressed, ambulatory subject supports the diagnosis of Diabetes Mellitus. PERFORMED BY: [place] [address] PATHOLOGIST KEY BED INSTALLER ADALBERTO MARTEL M.D. Performed By: #### C RP, TSH3, ESR, BMP, BHOB, LIPASE, HEPATIC, SCAN CBC, PT #### [facility] [address] Commemt1 Normal [facility] Comment on above: Result Comment: Glu2 : WILL NOTIFY DR/RN PERFORMED BY: [place] [address] PATHOLOGIST KEY BED INSTALLER ADALBERTO MARTEL M.D. Performed By: #### C RP, TSH3, ESR, BMP, BHOB, LIPASE, HEPATIC, SCAN CBC, PT #### [facility] [address] [place] [id number] [facility] Glucose [Mass/Vol] 430 mg/dL Off scale high Th e [facility] Comment on above: Result Comment: [place] Glucose Reference Range is dependent on time and content of last meal. Glucose of more than 200 mg/dL in a nonstressed, ambulatory subject supports the diagnosis of Diabetes Mellitus. Performed By: #### C RP, TSH3, ESR, BMP, BHOB, LIPASE, HEPATIC, SCAN CBC, PT #### [facility] [address] [place] [id number] [facility] Hemoglobin A1c/Hemoglobin.to jesus alberto in BloodOrdered By: Coco Zamora on 07-01-2024 HbA1c (Bld) [Mass fraction] Hemoglobin A1c percentage High 4.3-5.6 [facility] Comment on above: Increased risk for d iabetes: 5.7 - 6.4diabetes: >6.4glycemic control for adults with diabetes: <7.0 HbA1c (Bld) [Mass fraction] 13.2 % High 4.3-5.6 [facility] Comment on above: Increased risk for d iabetes: 5.7 - 6.4diabetes: >6.4glycemic control for adults with diabetes: <7.0 Result Comment: Incr eased risk for diabetes: 5.7 - 6.4 diabetes: >6.4 glycemic control for adults with diabetes: <7.0 Performed By: #### P TT, PT, MG, BMP, FE and TIBC, A1C WTH eA, SABAS, CBC ####[address] Iron [Mass/volume] in Serum or PlasmaOrdered By: Coco Zamora on 07-01-2024 Iron [Mass/Vol] Iron [Mass/volume] i n Serum or Plasma Low 50-212 [facility] Iron [Mass/Vol] 17 ug/dL Low 50-212 [facility] Comment on above: Performed By: #### P TT, PT, MG, BMP, FE and TIBC, A1C WTH eA, SABAS, CBC ####[address] Iron and TIBC Profileon 05-0 % Iron Saturation 5.2 % Low 20-50 [facility] Comment on above: Performed By: #### P TT, PT, MG, BMP, FE and TIBC, A1C WTH eA, SABAS, CBC ####[address] Total Iron Binding Capacity 328 ug/dL Normal 255-450 [facility] Comment on above: Performed By: #### P TT, PT, MG, BMP, FE and TIBC, A1C WTH eA, SABAS, CBC ####[address] LeukoReduced RBCon LeukoReduced RBC TRANSFUSED 07/04/24 1330 Normal [facility] Magnesiumon 07-01-2024 Magnesium [Mass/Vol] 1.8 mg/dL Low 1.9-2.7 [facility] Comment on above: Performed By: #### P TT, PT, MG, BMP, FE and TIBC, A1C WTH eA, SABAS, CBC ####[address] Partial Thromboplastin Timeo n 07-01-2024 aPTT Coag (Bld) [Time] 37.3 s High 25.1-36.5 [facility] Comment on above: Result Comment: A he matocrit value greater than 55% may lead to inaccurate results in coagulation testing. Patients having hematocrit values >55% require a special collection tube for coagulation studies. Please contact the laboratory at [phone] for redraw instructions. PERFORMED BY: [facility] [address] [place] [id number] PATHOLOGIST KEY BED INSTALLER ADALBERTO MARTEL M.D. Performed By: #### P TT, PT, MG, BMP, FE and TIBC, A1C WTH eA, SABAS, CBC ####[place] [address] [place] [address] [facility] Platelet Pheresis LRon 07-01 Platelet Pheresis LR TRANSFUSED 07/01/24 1736 Normal [facility] Prothrombin Time INRon 07-01 INR Coag (PPP) [Relative time] 1.2 {INR} Normal [facility] Comment on above: Result Comment: INR Therapeutic [...] and TIBC, A1C WTH eA, SABAS, CBC ####[place] [id number] [facility] PT Coag (PPP) [Time] 13.6 s High 9.0-12.9 [facility] Comment on above: Result Comment: A he matocrit value greater than 55% may lead to inaccurate results in coagulation testing. Patients having hematocrit values >55% require a special collection tube for coagulation studies. Please contact the laboratory at [phone] for redraw instructions. Performed By: #### P TT, PT, MG, BMP, FE and TIBC, A1C WTH eA, SABAS, CBC ####[place] [id number] [facility] Serum or plasma 25-hydroxyca lciferol measurement (mass/volume)Ordered By: Coco Zamora on 07-01-2024 25-hydroxyvitamin D2 [Mass/Vol] Serum or plasma 25-hydroxycalciferol measurement (mass/volume) . [facility] Comment on above: This test was develo ped and its performance characteristicsdetermined by [facility]. It has not been cleared or approvedby the Food and Drug Administration. 25-hydroxyvitamin D2 [Mass/Vol] 11 ng/mL . [facility] Comment on above: This test was develo ped and its performance characteristicsdetermined by [facility]. It has not been cleared or approvedby the Food and Drug Administration. Serum or plasma 25-hydroxyvi tamin D measurement (mass/volume)Ordered By: Coco Zamora on 07-01-2024 25-hydroxyvitamin D [Mass/Vol] Serum or plasma 25-hydroxyvitamin D measurement (mass/volume) Low . [facility] Comment on above: Reference Range:All Ages: Target levels 30 - 100 25-hydroxyvitamin D [Mass/Vol] 15 ng/mL Low . [facility] Comment on above: Reference Range:All Ages: Target levels 30 - 100 Serum or plasma calcidiol me asurement (mass/volume)Ordered By: Coco Zamora on 07-01-2024 25-hydroxyvitamin D3 [Mass/Vol] Serum or plasma calcidiol measurement (mass/volume) . [facility] Comment on above: This test was develo ped and its performance characteristicsdetermined by [facility]. It has not been cleared or approvedby the Food and Drug Administration.Performed at: [facility] [id number] [place], [place] [id number] Director: John Rao MD, Phone: [phone] 25-hydroxyvitamin D3 [Mass/Vol] 4.2 ng/mL . [facility] Comment on above: This test was develo ped and its performance characteristicsdetermined by [facility]. It has not been cleared or approvedby the Food and Drug Administration.Performed at: [facility] [id number] [place], [place] [id number] Director: John Rao MD, Phone: [phone] Serum or plasma iron binding capacity measurement (mass/volume)Ordered By: Coco Zamora on 07-01-2024 Iron binding capacity [Mass/Vol] Iron binding capacity [Mass/volume] in Serum or Plasma 255-450 [facility] Iron binding capacity [Mass/Vol] 328 ug/dL 255-450 [facility] Serum or plasma iron saturat ion measurement (mass fraction)Ordered By: Coco Zamora on 07-01-2024 Iron saturation [Mass fraction] Iron saturation [Mass Fraction] in Serum or Plasma Low 20-50 [facility] Iron saturation [Mass fraction] 5.2 % Low 20-50 [facility] Transferrin [Mass/volume] in Serum or PlasmaOrdered By: Coco Zamora on 07-01-2024 Transferrin [Mass/Vol] Transferrin [Mass/volume] in Serum or Plasma 203-362 [facility] Transferrin [Mass/Vol] 234 mg/dL Normal -362 [facility] Comment on above: Performed By: #### P TT, PT, MG, BMP, FE and TIBC, A1C WTH eA, SABAS, CBC ####[facility] [id number] [place] [id number] [facility] Type and Screenon 07-01-2024 ABO and Rh group Nom (Bld) Blood group A Rh(D) positive Normal [facility] Comment on above: Order Comment: Trans fuse now? Y Number of units to transfuse now? 2 Comment Hold 1 unit for OR procedure tomorrow Transfuse now? N Transfuse now? Y Number of units to transfuse now? 1 Vitamin D 25 Hydroxy,Tot+D2+ D3on 07-01-2024 [facility] Vitamin D 25 [place] 15 ng/mL Low . [facility] Comment on above: Result Comment: Refe rence Range: All Ages: Target levels 30 - 100 Performed By: #### V ITD+D2+D3 ####[facility] , Vitamin D-2 11 ng/mL Normal . [facility] Comment on above: Result Comment: This test was developed and its performance characteristics determined by [facility]. It has not been cleared or approved by the Food and Drug Administration. Performed By: #### V ITD+D2+D3 ####[facility] , Vitamin D-3 4.2 ng/mL Normal . [facility] Comment on above: Result Comment: This test was developed and its performance characteristics determined by [facility] [employer]. It has not been cleared or approved by the Food and Drug Administration. Performed at: [facility] [address] [place] [id number] [employer] Assistant: John Rao MD, Phone: [phone] PERFORMED BY: [place] [address] PATHOLOGIST KEY BED INSTALLER ADALBERTO MARTEL M.D. Performed By: #### V ITD+D2+D3 ####[facility] , aPTT in Platelet poor plasma by Coagulation assayOrdered By: Coco Zamora on 07-01-2024 aPTT Coag (PPP) [Time] Activated partial thromboplastin time (aPTT) in platelet poor plasma by coagulation a High 25.1-36.5 [facility] Comment on above: A hematocrit value g reater than 55% may lead to inaccurate results in coagulation testing. Patients having hematocrit values >55% require a special collection tube for coagulation studies. Please contact the laboratory at [phone] for redraw instructions. aPTT Coag (PPP) [Time] 37.3 s High 25.1-36.5 [facility] Comment on above: A hematocrit value g reater than 55% may lead to inaccurate results in coagulation testing. Patients having hematocrit values >55% require a special collection tube for coagulation studies. Please contact the laboratory at [phone] for redraw instructions. Alanine aminotransferase [En zymatic activity/volume] in Serum or PlasmaOrdered By: Harsha Wren on 06-30-2024 ALT [Catalytic activity/Vol] Alanine aminotransferase [Enzymatic activity/volume] in Serum or Plasma [facility] ALT [Catalytic activity/Vol] 34 U/L Normal [address] Comment on above: Performed By: #### C RP, TSH3, ESR, BMP, BHOB, LIPASE, HEPATIC, SCAN CBC, PT #### [facility] [address] [place] [address] [place] Albumin [Mass/volume] in Ser um or Plasma by Bromocresol green (BCG) dye binding methoOrdered By: Harsha Yolette on 06-30-2024 Albumin BCG dye [Mass/Vol] Albumin [Mass/volume] in Serum or Plasma by Bromocresol green (BCG) dye binding metho Low 3.5-5.7 [facility] Albumin BCG dye [Mass/Vol] 2.4 g/dL Low 3.5-5.7 [facility] Alkaline phosphatase [Enzyma tic activity/volume] in Serum or PlasmaOrdered By: Harsha Wren on 06-30-2024 ALP [Catalytic activity/Vol] Alkaline phosphatase [Enzymatic activity/volume] in Serum or Plasma High 34-104 [facility] ALP [Catalytic activity/Vol] 201 U/L [facility] 34-104 [facility] Comment on above: Performed By: #### C RP, TSH3, ESR, BMP, BHOB, LIPASE, HEPATIC, SCAN CBC, PT #### [facility] [address] Appearance of UrineOrdered B y: Harsha Villaarthy on 06-30-2024 Appearance (U) Urine appearance Clear [facility] Appearance (U) Clear Normal Clear [facility] Comment on above: Order Comment: Name Collection Type:: Newman Catheter Performed By: #### U A ####[facility] Aspartate aminotransferase [ Enzymatic activity/volume] in Serum or PlasmaOrdered By: Harsha Wren on 06-30-2024 AST [Catalytic activity/Vol] Aspartate aminotransferase [Enzymatic activity/volume] in Serum or Plasma High 13-39 [facility] AST [Catalytic activity/Vol] 43 U/L [facility] 13-39 [facility] Comment on above: Performed By: #### C RP, TSH3, ESR, BMP, BHOB, LIPASE, HEPATIC, SCAN CBC, PT #### [facility] [address] Basic Metabolic Panelon 050 Anion gap [Moles/Vol] 11.3 mmol/L Normal 6.0-15.0 [facility] Comment on above: Performed By: #### C RP, TSH3, ESR, BMP, BHOB, LIPASE, HEPATIC, SCAN CBC, PT #### [facility] [address] Calcium [Mass/Vol] 8.0 mg/dL Low 8.6-10.3 [facility] Comment on above: Performed By: #### C RP, TSH3, ESR, BMP, BHOB, LIPASE, HEPATIC, SCAN CBC, PT #### [facility] [address] Chloride [Moles/Vol] 98 mmol/L Normal 98-107 [facility] Comment on above: Performed By: #### C RP, TSH3, ESR, BMP, BHOB, LIPASE, HEPATIC, SCAN CBC, PT #### [address] CO2 [Moles/Vol] 23.2 mmol/L Normal 21.0-31.0 [facility] Comment on above: Performed By: #### C RP, TSH3, ESR, BMP, BHOB, LIPASE, HEPATIC, SCAN CBC, PT #### [facility] [address] Creatinine [Mass/Vol] 0.59 mg/dL Low 0.60-1.20 [facility] Comment on above: Performed By: #### C RP, TSH3, ESR, BMP, BHOB, LIPASE, HEPATIC, SCAN CBC, PT #### [address] Creatinine Clr Calc Pharmacy 85.81 Normal [facility] Comment on above: Performed By: #### C RP, TSH3, ESR, BMP, BHOB, LIPASE, HEPATIC, SCAN CBC, PT #### [place] [address] [place] GFR/1.73 sq M.predicted MDRD (S/P/Bld) [Vol rate/Area] mL/min/{1.73_m2} Normal [facility] Comment on above: Performed By: #### C RP, TSH3, ESR, BMP, BHOB, LIPASE, HEPATIC, SCAN CBC, PT #### [facility] [address] Glucose [Mass/Vol] 605 mg/dL Off scale high 70-100 [facility] Comment on above: Result Comment: [...] BHOB, LIPASE, HEPATIC, SCAN CBC, PT #### [facility] [address] Potassium [Moles/Vol] 4.5 mmol/L Normal 3.5-5.1 [facility] Comment on above: Performed By: #### C RP, TSH3, ESR, BMP, BHOB, LIPASE, HEPATIC, SCAN CBC, PT #### [facility] [address] Sodium [Moles/Vol] 128 mmol/L Low 136-145 [facility] Comment on above: Performed By: #### C RP, TSH3, ESR, BMP, BHOB, LIPASE, HEPATIC, SCAN CBC, PT #### [facility] [address] Urea nitrogen [Mass/Vol] 10 mg/dL Normal 7-25 [facility] Comment on above: Performed By: #### C RP, TSH3, ESR, BMP, BHOB, LIPASE, HEPATIC, SCAN CBC, PT #### [facility] [address] [place] [address] [place] Basophils Auto (Bld) [#/Vol] Ordered By: Harsha Wren on 06-30-2024 Basophils (Bld) [#/Vol] Automated basophil count 0.0-0.2 [facility] Basophils/100 WBC Auto (Bld) Ordered By: Harsha Wren on 06-30-2024 Basophils/100 WBC (Bld) Automated basophil % . [facility] Bilirubin Test strip Ql (U)O rdered By: Harsha Wren on 06-30-2024 Bilirubin Ql (U) Bilirubin.total [Pre sence] in Urine by Test strip Negative [facility] Bilirubin Ql (U) Negative Negative [facility] Bilirubin.direct [Mass/volum e] in Serum or PlasmaOrdered By: Harsha Wren on 06-30-2024 Bilirubin.direct [Mass/Vol] Bilirubin.direct [Mass/volume] in Serum or Plasma High 0.03-0.18 [facility] Bilirubin.direct [Mass/Vol] 0.50 mg/dL High 0.03-0.18 [facility] Bilirubin.total [Mass/volume ] in Serum or PlasmaOrdered By: Harsha Wren on 06-30-2024 Bilirubin [Mass/Vol] Bilirubin.total [Mass/volume] in Serum or Plasma High 0.3-1.0 [facility] Bilirubin [Mass/Vol] 1.2 mg/dL High 0.3-1.0 [facility] Comment on above: Performed By: #### C RP, TSH3, ESR, BMP, BHOB, LIPASE, HEPATIC, SCAN CBC, PT #### [address] cervical spine wo conon 0 06-30-2024 CT cervical spine wo con [facility] [address] [place] [address] [place] [address] CT Scan Report Signed Patient: Teresa Lyle MR#: [id number] : 1960 Acct:[id number] Age/Sex: 64 / F ADM Date: 06/30/24 Loc: ER Room: Type: [facility] ER Attending Dr: Copies to: Harsha Wren [...] Lange M.D. 06/30/2024 8:34 PM Dictation Location: [place] [address] Transcribed By: [facility] 06/30/242033 Dictated By: Navarro Lange MD 06/30/242030 Signed By: 06/30/242033 Normal [facility] CT head/brain wo conon 06-30 CT head/brain wo con [facility] [place] [address] CT Scan Report Signed Patient: Teresa Lyle MR#: [id number] : 1960 Acct:[id number] Age/Sex: 64 / F ADM Date: 06/30/24 [...] Lange M.D. 06/30/2024 8:22 PM Dictation Location: [facility]- Transcribed By: CHRISTIN 06/30/242021 Dictated By: Navarro Lange MD 06/30/242016 Signed By: 06/30/242021 Normal [facility] Calcium [Mass/volume] in Ser um or PlasmaOrdered By: Harsha Wren on 06-30-2024 Calcium [Mass/Vol] Calcium [Mass/volume ] in Serum or Plasma Low 8.6-10.3 [facility] Carbon dioxide, total [Moles /volume] in Serum or PlasmaOrdered By: Harsha Wren on 06-30-2024 CO2 [Moles/Vol] Carbon dioxide, tota l [Moles/volume] in Serum or Plasma 21.0-31.0 [facility] Chloride [Moles/volume] in S michael or PlasmaOrdered By: Harsha Wren on 06-30-2024 Chloride [Moles/Vol] Chloride [Moles/vol ume] in Serum or Plasma 98-107 [facility] Color Auto (U)Ordered By: Felicity Wren on 06-30-2024 Color (U) Color of Urine by Auto [facility] Color of Urine by AutoOrdere d By: Harsha Wren on 06-30-2024 Color (U) Light-yellow Normal Yellow [facility] Comment on above: Order Comment: Name Collection Type:: Newman Catheter Performed By: #### U A ####[facility] [place] [id number] [facility] Complete Blood Count Auto Di ffon 06-30-2024 Basophils (Bld) [#/Vol] 0.1 10*3/uL Normal 0.0-0.2 [facility] Comment on above: Result Comment: PERF ORMED BY: [facility] [address] [id number] PATHOLOGIST KEY BED INSTALLER ADALBERTO MARTEL M.D. Performed By: #### C RP, TSH3, ESR, BMP, BHOB, LIPASE, HEPATIC, SCAN CBC, PT #### [address] Basophils/100 WBC (Bld) 1.1 % Normal . [facility] Comment on above: Performed By: #### C RP, TSH3, ESR, BMP, BHOB, LIPASE, HEPATIC, SCAN CBC, PT #### [address] Eosinophils (Bld) [#/Vol] 0.1 10*3/uL Normal 0.0-0.45 [facility] Comment on above: Performed By: #### C RP, TSH3, ESR, BMP, BHOB, LIPASE, HEPATIC, SCAN CBC, PT #### [address] Eosinophils/100 WBC (Bld) 1.0 % Normal . [facility] Comment on above: Performed By: #### C RP, TSH3, ESR, BMP, BHOB, LIPASE, HEPATIC, SCAN CBC, PT #### [address] Erythrocyte distribution width (RBC) [Ratio] 22.6 % High 11.9-15.3 [facility] Comment on above: Performed By: #### C RP, TSH3, ESR, BMP, BHOB, LIPASE, HEPATIC, SCAN CBC, PT #### [address] Hematocrit (Bld) [Volume fraction] 35.1 % Normal 34.0-46.4 [facility] Comment on above: Performed By: #### C RP, TSH3, ESR, BMP, BHOB, LIPASE, HEPATIC, SCAN CBC, PT #### [address] Hemoglobin (Bld) [Mass/Vol] 11.0 g/dL Low 11.8-15.4 [facility] Comment on above: Performed By: #### C RP, TSH3, ESR, BMP, BHOB, LIPASE, HEPATIC, SCAN CBC, PT #### [address] Lymphocytes (Bld) [#/Vol] 0.7 10*3/uL Low 1.00-4.8 [facility] Comment on above: Performed By: #### C RP, TSH3, ESR, BMP, BHOB, LIPASE, HEPATIC, SCAN CBC, PT #### [address] Lymphocytes/100 WBC (Bld) 13.2 % Normal . [facility] Comment on above: Performed By: #### C RP, TSH3, ESR, BMP, BHOB, LIPASE, HEPATIC, SCAN CBC, PT #### [address] MCH (RBC) [Entitic mass] 23.4 pg Low 24.7-34.3 [facility] Comment on above: Performed By: #### C RP, TSH3, ESR, BMP, BHOB, LIPASE, HEPATIC, SCAN CBC, PT #### [address] MCV (RBC) [Entitic vol] 75.1 fL Low 80-100 [facility] Comment on above: Performed By: #### C RP, TSH3, ESR, BMP, BHOB, LIPASE, HEPATIC, SCAN CBC, PT #### [address] Mean Corpuscular HGB Conc 31.2 g/dL Low 32.0-35.0 [facility] Comment on above: Performed By: #### C RP, TSH3, ESR, BMP, BHOB, LIPASE, HEPATIC, SCAN CBC, PT #### [address] Monocytes (Bld) [#/Vol] 0.5 10*3/uL Normal 0.0-0.8 [facility] Comment on above: Performed By: #### C RP, TSH3, ESR, BMP, BHOB, LIPASE, HEPATIC, SCAN CBC, PT #### [address] Monocytes/100 WBC (Bld) 20.23 % High 0.00-20.00 [facility] Comment on above: Result Comment: For adults in ED, MDW > 20.0 may be associated with a higher risk of sepsis during the first 12 hrs of hospital admission Performed By: #### C RP, TSH3, ESR, BMP, BHOB, LIPASE, HEPATIC, SCAN CBC, PT #### [address] Monocytes/100 WBC (Bld) 10.2 % Normal . [facility] Comment on above: Performed By: #### C RP, TSH3, ESR, BMP, BHOB, LIPASE, HEPATIC, SCAN CBC, PT #### [address] Neutrophils (Bld) [#/Vol] 3.9 10*3/uL Normal 1.8-7.7 [facility] Comment on above: Performed By: #### C RP, TSH3, ESR, BMP, BHOB, LIPASE, HEPATIC, SCAN CBC, PT #### [address] Neutrophils/100 WBC (Bld) 74.5 % Normal . [facility] Comment on above: Performed By: #### C RP, TSH3, ESR, BMP, BHOB, LIPASE, HEPATIC, SCAN CBC, PT #### [address] NRBC% 0.0 /100{WBC} Normal 0-0.5 [facility] Comment on above: Performed By: #### C RP, TSH3, ESR, BMP, BHOB, LIPASE, HEPATIC, SCAN CBC, PT #### [address] Platelet mean volume (Bld) [Entitic vol] 8.8 fL Normal 6.3-10.7 [facility] Comment on above: Performed By: #### C RP, TSH3, ESR, BMP, BHOB, LIPASE, HEPATIC, SCAN CBC, PT #### [address] Platelets (Bld) [#/Vol] 65 10*3/uL Low 150-450 [facility] Comment on above: Performed By: #### C RP, TSH3, ESR, BMP, BHOB, LIPASE, HEPATIC, SCAN CBC, PT #### [facility] [address] [place] [id number] [facility] RBC (Bld) [#/Vol] 4.68 10*6/uL Normal 3.60-5.[address] [facility] Comment on above: Performed By: #### C RP, TSH3, ESR, BMP, BHOB, LIPASE, HEPATIC, SCAN CBC, PT #### [facility] [address] [place] [id number] [facility] WBC (Bld) [#/Vol] 5.2 10*3/uL Normal 3.8-11.6 [facility] Comment on above: Performed By: #### C RP, TSH3, ESR, BMP, BHOB, LIPASE, HEPATIC, SCAN CBC, PT #### [facility] [address] [place] [id number] [facility] Creatinine [Mass/volume] in Serum or PlasmaOrdered By: Harsha Wren on 06-30-2024 Creatinine [Mass/Vol] Creatinine [Mass/v olume] in Serum or Plasma Low 0.60-1.20 [facility] ECG 12 lead ECGon 06-30-2024 ECG 12 lead ECG [facility] [address] [place] [address] [place] [address] Electrocardiograph Report Signed Patient: Teresa Lyle MR#: [id number] : 1960 Acct:[id number] Age/Sex: 64 / F ADM Date: 06/30/24 Loc: Room: 2N1183-6 Type: ADM IN Attending Dr: Digna Roberto [...] Rightward axis Confirmed by Harsha Wren DO ([id number]) on 07/02/2024 1:07:04 AM Referred By: Electronically Signed By: Harsha Wren DO Transcribed By: MUS Signed By Harsha Wren DO 0107 Normal [facility] Eosinophils Auto (Bld) [#/Vo l]Ordered By: Harsha Wren on 06-30-2024 Eosinophils (Bld) [#/Vol] Automated eosinophil count 0.0-0.45 [facility] Eosinophils/100 WBC Auto (Bl d)Ordered By: Harsha Wren on 06-30-2024 Eosinophils/100 WBC (Bld) Automated eosinophil % . [facility] Erythrocyte distribution wid th Auto (RBC) [Ratio]Ordered By: Harsha Wren on 06-30-2024 Erythrocyte distribution width (RBC) [Ratio] Erythrocyte distribution width [Ratio] by Automated count High 11.9-15.3 [facility] Globulin Calc (S) [Mass/Vol] Ordered By: Harsha Wren on 06-30-2024 Globulin (S) [Mass/Vol] Serum globulin measurement by calculation (mass/volume) [facility] Glucose Glucometer (BldC) [M ass/Vol]Ordered By: Sarah Helm on 06-30-2024 Glucose [Mass/Vol] Capillary blood gluc ose measurement by glucometer (mass/volume) Critically high [facility] Comment on above: Random Glucose Refer ence Range is dependent on time and content of last meal. Glucose of more than 200 mg/dL in a nonstressed, ambulatory subject supports the diagnosis of Diabetes Mellitus. Glucose Poct Glucometerson 0 06-30-2024 Commemt1 Normal [facility] Comment on above: Result Comment: Glu2 : WILL NOTIFY DR/RN Performed By: #### C RP, TSH3, ESR, BMP, BHOB, LIPASE, HEPATIC, SCAN CBC, PT #### [facility] [address] [place] [address] Commemt2 Cleaned Meter Normal [facility] Comment on above: Result Comment: PERF ORMED BY: [address] [place] [address] PATHOLOGIST KEY BED INSTALLER ADALBERTO MARTEL M.D. Performed By: #### C RP, TSH3, ESR, BMP, BHOB, LIPASE, HEPATIC, SCAN CBC, PT #### [facility] [address] [place] [address] [place] Glucose [Mass/Vol] 408 mg/dL Off scale high [facility] Comment on above: Result Comment: [place] om Glucose Reference Range is dependent on time and content of last meal. Glucose of more than 200 mg/dL in a nonstressed, ambulatory subject supports the diagnosis of Diabetes Mellitus. Performed By: #### C RP, TSH3, ESR, BMP, BHOB, LIPASE, HEPATIC, SCAN CBC, PT #### [facility] [address] [place] [address] [place] Glucose [Mass/volume] in Ser um or PlasmaOrdered By: Harsha Wren on 06-30-2024 Glucose [Mass/Vol] Glucose [Mass/volume ] in Serum or Plasma Critically high 70-100 [facility] Comment on above: Critical Result Call ed [...] Glucose [Mass/volume] in Urine by Test strip [facility] Normal [facility] Glucose Test strip (U) [Mass/Vol] >=1000 mg/dL [facility] Hematocrit Auto (Bld) [Volum e fraction]Ordered By: Harsha Wren on 06-30-2024 Hematocrit (Bld) [Volume fraction] Hematocrit [Volume Fraction] of Blood by Automated count 34.0-46.4 [facility] Hemoglobin Test strip Ql (U) Ordered By: Harsha Wren on 06-30-2024 Hemoglobin Ql (U) Hemoglobin [Presence ] in Urine by Test strip Negative [facility] Hemoglobin Ql (U) Negative Negative [facility] Hemoglobin [Mass/volume] in BloodOrdered By: Harsha Wren on 06-30-2024 Hemoglobin (Bld) [Mass/Vol] Hemoglobin [Mass/volume] in Blood Low 11.8-15.4 [facility] Hepatic Panelon 06-30-2024 Albumin [Mass/Vol] 2.4 g/dL Low 3.5-5.7 [facility] Comment on above: Performed By: #### C RP, TSH3, ESR, BMP, BHOB, LIPASE, HEPATIC, SCAN CBC, PT #### [facility] [address] Bilirubin,Indirect 0.7 mg/dL Normal [facility] Comment on above: Performed By: #### C RP, TSH3, ESR, BMP, BHOB, LIPASE, HEPATIC, SCAN CBC, PT #### [facility] [address] Bilirubin.indirect [Mass/Vol] 0.50 mg/dL High 0.03-0.18 [facility] Comment on above: Performed By: #### C RP, TSH3, ESR, BMP, BHOB, LIPASE, HEPATIC, SCAN CBC, PT #### [facility] [address] Ketones Test strip Ql (U)Ord ered By: Harsha Wren on 06-30-2024 Ketones Ql (U) Ketones [Presence] i n Urine by Test strip Negative [facility] Ketones [Presence] in Urine by Test stripOrdered By: Harsha Wren on 06-30-2024 Ketones Ql (U) Negative Normal Negative [facility] Comment on above: Order Comment: Name Collection Type:: Newman Catheter Performed By: #### U A ####[facility] Leukocyte esterase [Presence ] in Urine by Test stripOrdered By: Harsha Wren on 06-30-2024 Leukocyte esterase Test strip Ql (U) Leukocyte esterase [Presence] in Urine by Test strip Negative [facility] Leukocyte esterase Test strip Ql (U) Negative Normal Negative [facility] Comment on above: Order Comment: Name Collection Type:: Newman Catheter Performed By: #### U A ####[facility] [address] Leukocytes [#/volume] correc lyly for nucleated erythrocytes in Blood by Automated counOrdered By: Harsha Wren on 06-30-2024 WBC corrected for nucl RBC Auto (Bld) [#/Vol] Leukocytes [#/volume] corrected for nucleated erythrocytes in Blood by Automated coun 3.8-11.6 [facility] Lipase [Enzymatic activity/v olume] in Serum or PlasmaOrdered By: Harsha Wren on 06-30-2024 Lipase [Catalytic activity/Vol] Lipase [Enzymatic activity/volume] in Serum or Plasma 11.0-82.0 [facility] Lipase [Catalytic activity/Vol] 58.0 U/L Normal 11.0-82.0 [facility] Comment on above: Result Comment: PERF ORMED BY: [facility] [address] [place] [address] PATHOLOGIST KEY BED INSTALLER ADALBERTO MARTEL M.D. Performed By: #### C RP, TSH3, ESR, BMP, BHOB, LIPASE, HEPATIC, SCAN CBC, PT #### [facility] [address] Lymphocytes Auto (Bld) [#/Vo l]Ordered By: Harsha Wren on 06-30-2024 Lymphocytes (Bld) [#/Vol] Lymphocytes [#/volume] in Blood by Automated count Low 1.00-4.8 [facility] Lymphocytes/100 WBC Auto (Bl d)Ordered By: Harsha Wren on 06-30-2024 Lymphocytes/100 WBC (Bld) Lymphocytes/100 leukocytes in Blood by Automated count . [facility] MCH Auto (RBC) [Entitic mass ]Ordered By: Harsha Wren on 06-30-2024 MCH (RBC) [Entitic mass] MCH [Entitic mass] by Automated count Low 24.7-34.3 [facility] MCHC Auto (RBC) [Mass/Vol]Or dered By: Harsha Wren on 06-30-2024 MCHC (RBC) [Mass/Vol] MCHC [Mass/volume] by Automated count Low 32.0-35.0 [facility] MCV Auto (RBC) [Entitic vol] Ordered By: Harsha Wren on 06-30-2024 MCV (RBC) [Entitic vol] MCV [Entitic volume] by Automated count Low 80-100 [facility] Monocyte distribution width [Entitic volume] in Blood by AutomatedOrdered By: Harsha Wren on 06-30-2024 Monocyte distribution width Auto (Bld) [Entitic vol] Monocyte distribution width [Entitic volume] in Blood by Automated High 0.00-20.00 [facility] Comment on above: For adults in ED, MD W > 20.0 may be associated with a higher risk of sepsis during the first 12 hrs of hospital admission Monocyte distribution width Auto (Bld) [Entitic vol] 20.23 % High 0.00-20.00 [facility] Comment on above: For adults in ED, MD W > 20.0 may be associated with a higher risk of sepsis during the first 12 hrs of hospital admission Monocytes Auto (Bld) [#/Vol] Ordered By: Harsha Wren on 06-30-2024 Monocytes (Bld) [#/Vol] Automated blood monocyte count 0.0-0.8 [facility] Monocytes/100 WBC Auto (Bld) Ordered By: Harsha Wren on 06-30-2024 Monocytes/100 WBC (Bld) Automated monocyte % . [facility] Neutrophils Auto (Bld) [#/Vo l]Ordered By: Harsha Wren on 06-30-2024 Neutrophils (Bld) [#/Vol] Neutrophils [#/volume] in Blood by Automated count 1.8-7.7 [facility] Neutrophils/100 WBC Auto (Bl d)Ordered By: Harsha Wren on 06-30-2024 Neutrophils/100 WBC (Bld) Automated neutrophil % . [facility] Nitrite Test strip Ql (U)Ord ered By: Harsha Wren on 06-30-2024 Nitrite Ql (U) Nitrite [Presence] i n Urine by Test strip Negative [facility] Nitrite Ql (U) Negative Negative [facility] No Panel InformationOrdered By: Sarah Helm on 06-30-2024 Bedside Glucose #2 Comment Cleaned meter [facility] Bedside Glucose Comment See comment [facility] Comment on above: Glu2: WILL NOTIFY DR /RN No Panel InformationOrdered By: Harsha Wren on 06-30-2024 Estimated GFR (CKD-EPI) > 60.0 mL/Min [facility] Creatinine Clearance (Chem 85.81 [facility] Nucleated erythrocytes [Pres ence] in Blood by Automated countOrdered By: Harsha Wren on 06-30-2024 Nucleated RBC Auto Ql (Bld) Nucleated erythrocytes [Presence] in Blood by Automated count 0-0.5 [facility] Platelet mean volume Auto (B ld) [Entitic vol]Ordered By: Harsha Wren on 06-30-2024 Platelet mean volume (Bld) [Entitic vol] Platelet mean volume [Entitic volume] in Blood by Automated count 6.3-10.7 [facility] Platelets Auto (Bld) [#/Vol] Ordered By: Harsha Wren on 06-30-2024 Platelets (Bld) [#/Vol] Platelets [#/volume] in Blood by Automated count Low 150-450 [facility] Potassium [Moles/volume] in Serum or PlasmaOrdered By: Harsha Wren on 06-30-2024 Potassium [Moles/Vol] Potassium [Moles/v olume] in Serum or Plasma 3.5-5.1 [facility] Protein Test strip (U) [Mass /Vol]Ordered By: Harsha Wren on 06-30-2024 Protein (U) [Mass/Vol] Protein [Mass/volume] in Urine by Test strip Negative [facility] Protein (U) [Mass/Vol] Negative Negative [facility] Protein [Mass/volume] in Ser um or PlasmaOrdered By: Harsha Wren on 06-30-2024 Protein [Mass/Vol] Protein [Mass/volume ] in Serum or Plasma 6.4-8.9 [facility] Protein [Mass/Vol] 6.5 g/dL Normal 6.4-8.9 [facility] Comment on above: Performed By: #### C RP, TSH3, ESR, BMP, BHOB, LIPASE, HEPATIC, SCAN CBC, PT #### [facility] [address] RBC Auto (Bld) [#/Vol]Ordere d By: Harsha Wren on 06-30-2024 RBC (Bld) [#/Vol] Erythrocytes [#/volu me] in Blood by Automated count 3.60-5.00 [facility] Serum globulin measurement b y calculation (mass/volume)Ordered By: Harsha Wren on 06-30-2024 Globulin (S) [Mass/Vol] 4.1 g/dL Normal [facility] Comment on above: Performed By: #### C RP, TSH3, ESR, BMP, BHOB, LIPASE, HEPATIC, SCAN CBC, PT #### [address] Serum or plasma albumin/glob ulin mass ratioOrdered By: Harsha Wren on 06-30-2024 Albumin/Globulin [Mass ratio] Serum or plasma albumin/globulin mass ratio [facility] Albumin/Globulin [Mass ratio] 0.6 {ratio} Normal [facility] Comment on above: Performed By: #### C RP, TSH3, ESR, BMP, BHOB, LIPASE, HEPATIC, SCAN CBC, PT #### [facility] [address] [place] [address] Serum or plasma anion gap de terminationOrdered By: Harsha Wren on 06-30-2024 Anion gap [Moles/Vol] Serum or plasma an ion gap determination 6.0-15.0 [facility] Serum or plasma non-glucuron idated bilirubin measurement (mass/volume)Ordered By: Harsha Wren on 06-30-2024 Bilirubin.indirect [Mass/Vol] Serum or plasma non-glucuronidated bilirubin measurement (mass/volume) [facility] Bilirubin.indirect [Mass/Vol] 0.7 mg/dL [facility] Sodium [Moles/volume] in Ser um or PlasmaOrdered By: Harsha Wren on 06-30-2024 Sodium [Moles/Vol] Sodium [Moles/volume ] in Serum or Plasma Low 136-145 [facility] Specific gravity Test strip (U) [Rel density]Ordered By: Harsha Wren on 06-30-2024 Specific gravity (U) [Rel density] Specific gravity of Urine by Test strip 1.001-1.03 0 [facility] Specific gravity (U) [Rel density] 1.027 1.001-1.03 0 [facility] Urea nitrogen [Mass/volume] in Serum or PlasmaOrdered By: Harsha Wren on 06-30-2024 Urea nitrogen [Mass/Vol] Urea nitrogen [Mass/volume] in Serum or Plasma 7 [facility] Urinalysison 06-30-2024 Bilirubin,Urine Negative Normal Negative [facility] Comment on above: Order Comment: Name Collection Type:: Newman Catheter Performed By: #### U A ####[place] [address] [place] [address] [facility] Glucose Ql (U) >= High Normal [facility] Comment on above: Order Comment: Name Collection Type:: Newman Catheter Performed By: #### U A ####[address] [address] [facility] Nitrite,Urine Negative Normal Negative [facility] Comment on above: Order Comment: Name Collection Type:: Newman Catheter Performed By: #### U A ####[address] [address] [facility] Occult Blood,Urine Negative Normal Negative [facility] Comment on above: Order Comment: Name Collection Type:: Newman Catheter Result Comment: PERF ORMED BY: [facility] [address] [place] [address] PATHOLOGIST KEY BED INSTALLER ADALBERTO MARTEL M.D. Performed By: #### U A ####[address] [address] [facility] Protein,Urine Negative Normal Negative [facility] Comment on above: Order Comment: Name Collection Type:: Newman Catheter Performed By: #### U A ####[address] [address] [facility] Specificy [place],Urine 1.027 Normal 1.001-1.03 0 [facility] Comment on above: Order Comment: Name Collection Type:: Newman Catheter Performed By: #### U A ####[place] [address] Urobilinogen,Urine Normal Normal Normal [facility] Comment on above: Order Comment: Name Collection Type:: Newman Catheter Performed By: #### U A ####[place] [address] [place] [id number] [facility] Urobilinogen Test strip (U) [Mass/Vol]Ordered By: Harsha Wren on 06-30-2024 Urobilinogen (U) [Mass/Vol] Urobilinogen [Mass/volume] in Urine by Test strip Normal [facility] Urobilinogen (U) [Mass/Vol] Normal mg/dL Normal [facility] WBC Auto (Bld) [#/Vol]Ordere d By: Harsha Wren on 06-30-2024 WBC (Bld) [#/Vol] Leukocytes [#/volume ] in Blood by Automated count 3.8-11.6 [facility] X-ray reportOrdered By: Farrukh Lange on 06-30-2024 Study report [facility] [address] XRay Report Signed Patient: Teresa Lyle MR#: [id number] : 1960 Acct:[id number] Age/Sex: 64 / F ADM Date: Loc: ER Room: Type: [facility] ER Attending Dr: Copies to: Harsha Wren [...] Navarro Lange MD 06/30/242104 Signed By: 06/30/242106 [facility] Work Phone: Study report [facility] [place] [address] XRay Report Signed Patient: Teresa Lyle MR#: [id number] : 1960 Acct:[id number] Age/Sex: 64 / F ADM Date: 5 Loc: ER Room: Type: [facility] ER Attending Dr: Copies to: Harsha Wren DO~ Ordering Provider: Harsha Wren DO Date of Service: 06/30/24 XR/XR ankle RT min 3V*: Extremity Injury, Lower ([id number]) XR/XR femur RT 2V*: Extremity Injury, Lower ([id number]) XR/XR pelvis 1-2V: Extremity Injury, Lower ([id number]) XR/XR tibia fibula RT 2V*: Extremity Injury, [...] Navarro Lange MD 06/30/242025 Signed By: 06/30/242030 [facility] Work Phone: XR ankle RT min 3V*on 2024 XR ankle RT min 3V* [facility] [place] [address] [place] [address] XRay Report Signed Patient: Teresa Lyle MR#: [id number] : 1960 Acct:[id number] Age/Sex: 64 / F ADM Date: 06/30/24 Loc: ER Room: Type: [facility] ER Attending Dr: Copies to: Harsha Wren DO Ordering Provider: Harsha Wren DO Date of Service: 06/30/24 XR/XR ankle RT min 3V*: Extremity Injury, Lower ([id number]) XR/XR femur RT 2V*: Extremity Injury, Lower ([id number]) XR/XR pelvis 1-2V: Extremity Injury, Lower ([id number]) XR/XR tibia fibula RT 2V*: Extremity Injury, [...] MD 06/30/242025 Signed By: 06/30/242030 Normal [facility] XR chest 1V portableon 06-30 XR chest 1V portable [facility] [place] [address] XRay Report Signed Patient: Teresa Lyle MR#: [id number] : 1960 Acct:[id number] Age/Sex: 64 / F ADM Date: 06/30/24 Loc: ER Room: Type: [facility] ER Attending Dr: Copies to: Harsha Wren [...] 9:07 PM Dictation Location: RADIO-PC-29 Transcribed By: [facility] 06/30/242106 Dictated By: Navarro Lange MD 06/30/242104 Signed By: 06/30/242106 Normal [facility] pH Test strip (U)Ordered By: Harsha Wren on 06-30-2024 pH (U) pH of Urine by Test strip 5.0-9.0 [facility] pH of Urine by Test stripOrd ered By: Harsha Wren on 06-30-2024 pH (U) 6.5 [pH] Normal 5.0-9.0 [facility] Comment on above: Order Comment: Name Collection Type:: Newman Catheter Performed By: #### U A ####[facility] [id number] [place] [address] [place] Reminderson 04-24-2024 Reminders Reminders From: Chapis [...] 10.0 % (14.0 - 50.0) 04/18/2024 15:15 Power Auto 4.8 % (4.0 - 14.0) 04/18/2024 15:15 Eos Auto 0.2 % (0.0 - 8.0) 04/18/2024 15:15 Basophil Auto 0.6 % (0.0 - 2.0) 04/18/2024 15:15 Neutro Absolute 7.5 E9/L (2.0 - 7.5) 04/18/2024 15:15 Lymph Absolute ((L)) 0.9 E9/L (1.0 - 4.0) 04/18/2024 15:15 Power Absolute 0.4 E9/L (0.2 - 1.0) 04/18/2024 [...] 04/24/2024 15:08:00 EST Subject: Lab results Normal [facility] CBC w/ Auto Diffon 5 Basophils/100 WBC (Bld) 0.6 % Normal 0.0-2.0 [facility] Comment on above: Performed By: #### 2 [id number] #### [facility] Laboratory [address] [place] [address] Basophils/Leukocytes Auto (Bld) [Pure # fraction] 0.0 E9/L Normal 0.0-0.2 [facility] Comment on above: Performed By: #### 2 258669 #### [facility] Laboratory [address] [place] [address] Eosinophils (Bld) [#/Vol] 0.0 E9/L Normal 0.0-0.5 [facility] Comment on above: Performed By: #### 2 701725 #### [facility] Laboratory [address] [place] [address] Eosinophils/100 WBC (Bld) 0.2 % Normal 0.0-8.0 [facility] Comment on above: Performed By: #### 2 250845 #### [facility] Laboratory [address] [place] [address] Erythrocyte distribution width (RBC) [Ratio] 23.8 % High 10.9-14.2 [facility] Comment on above: Performed By: #### 2 164466 #### [facility] [address] [place] [address] Hematocrit (Bld) [Volume fraction] 35.4 % Normal 34.0-46.0 [facility] Comment on above: Performed By: #### 2 181201 #### [facility] Laboratory [address] [place] [address] Hemoglobin (Bld) [Mass/Vol] 11.0 g/dL Low 12.0-16.0 [facility] Comment on above: Performed By: #### 2 242907 #### [facility] [address] [place] [address] Hypochromia Auto Ql (Bld) PRESENT Invalid Interpretation Code [facility] Comment on above: Performed By: #### 2 230507 #### [facility] [address] [place] [address] Lymphocytes (Bld) [#/Vol] 0.9 E9/L Low 1.0-4.0 [facility] Comment on above: Performed By: #### 2 869364 #### [facility] Laboratory [address] [place] [address] Lymphocytes/100 WBC (Bld) 10.0 % Low 14.0-50.0 [facility] Comment on above: Performed By: #### 2 603726 #### [facility] [address] [place] [address] MCH (RBC) [Entitic mass] 22.6 pg Low 27.0-34.0 [facility] Comment on above: Performed By: #### 2 967118 #### [facility] [address] [place] [address] MCHC (RBC) [Mass/Vol] 31.1 g/dL Low 31.4-36.0 [facility] Comment on above: Performed By: #### 2 594766 #### [facility] [address] [place] [address] MCV (RBC) [Entitic vol] 72.5 fL Low 80.0-100.0 [facility] Comment on above: Performed By: #### 2 172513 #### [facility] [address] [place] [address] Microcytes Ql (Bld) PRESENT Invalid Interpretation Code [facility] Comment on above: Performed By: #### 2 424908 #### [facility] [address] [place] [address] Monocytes (Bld) [#/Vol] 0.4 E9/L Normal 0.2-1.0 [facility] Comment on above: Performed By: #### 2 479655 #### [facility] [address] [place] [address] Neutrophils (Bld) [#/Vol] 7.5 E9/L Normal 2.0-7.5 [facility] Comment on above: Performed By: #### 2 558548 #### [facility] [address] [place] [address] Neutrophils/100 WBC (Bld) 84.4 % High 36.0-75.0 [facility] Comment on above: Performed By: #### 2 099798 #### [facility] [address] [place] [address] Ovalocytes LM Ql (Bld) PRESENT Invalid Interpretation Code [facility] Comment on above: Performed By: #### 2 385974 #### [facility] [address] [place] [address] Platelet mean volume (Bld) [Entitic vol] 9.8 fL Normal 6.4-10.8 [facility] Comment on above: Performed By: #### 2 330438 #### [facility] [address] [place] [address] Platelets (Bld) [#/Vol] 89.0 E9/L Low 150.0-500. 0 [facility] Comment on above: Result Comment: Cheryl pheral smear review performed. Performed By: #### 2 947803 #### [facility] [address] [place] [address] RBC (Bld) [#/Vol] 4.9 E12/L Normal 4.3-5.9 [facility] Comment on above: Performed By: #### 2 133502 #### [facility] [address] [place] [address] RBC size Nom (Bld) SEE MORPHOLOGY Invalid Interpretation Code [facility] Comment on above: Performed By: #### 2 670382 #### [facility] [address] [place] [address] WBC corrected for nucl RBC Auto (Bld) [#/Vol] 8.9 E9/L Normal 4.0-11.0 [facility] Comment on above: Performed By: #### 2 216483 #### [facility] [address] [place] [address] CMPon 04-19-2024 Albumin [Mass/Vol] 2.5 g/dL Low 3.3-5.0 [facility] Comment on above: Performed By: #### 2 [id number] #### [facility] [address] [place] [address] Albumin/Globulin (S) [Mass conc ratio] 0.5 Low 1.1-2.2 [facility] Comment on above: Performed By: #### 2 292027 #### [facility] [address] [place] [address] ALP [Catalytic activity/Vol] 219 Int._Unit/L High 21-98 [facility] Comment on above: Performed By: #### 2 229797 #### [facility] [address] [place] [address] ALT No additional P-5'-P [Catalytic activity/Vol] 22 Int._Unit/L Normal 6-46 [facility] Comment on above: Performed By: #### 2 396020 #### [facility] [address] [place] [address] Anion gap [Moles/Vol] 10 mmol/L Normal 6-16 [facility] Comment on above: Performed By: #### 2 092038 #### [facility] [address] [place] [address] AST [Catalytic activity/Vol] 39 Int._Unit/L Normal 5-43 [facility] Comment on above: Performed By: #### 2 966043 #### [facility] [address] [place] [address] Bilirubin [Mass/Vol] 2.0 mg/dL High 0.0-1.1 [facility] Comment on above: Performed By: #### 2 009977 #### [facility] [address] [place] [address] Calcium [Mass/Vol] 7.6 mg/dL Low 8.9-11.1 [facility] Comment on above: Performed By: #### 2 382346 #### [facility] [address] [place] [address] Chloride [Moles/Vol] 99 mmol/L Low 101-111 [facility] Comment on above: Performed By: #### 2 859453 #### [facility] [address] [place] [address] CO2 [Moles/Vol] 25 mmol/L Normal 21-31 [facility] Comment on above: Performed By: #### 2 359828 #### [facility] [address] [place] [address] Creatinine [Mass/Vol] 0.5 mg/dL Normal 0.5-1.3 [facility] Comment on above: Performed By: #### 2 930464 #### [facility] [address] [place] [address] Globulin (S) [Mass/Vol] 4.7 g/dL High 1.4-4.0 [facility] Comment on above: Performed By: #### 2 889255 #### [facility] [address] [place] [address] Glucose [Mass/Vol] 330 mg/dL High 55-199 [facility] Comment on above: Performed By: #### 2 835069 #### [facility] [address] [place] [address] Potassium [Moles/Vol] 4.8 mmol/L Normal 3.5-5.3 [facility] Comment on above: Performed By: #### 2 392385 #### [facility] [address] [place] [address] Protein [Mass/Vol] 7.2 g/dL Normal 6.0-7.8 [facility] Comment on above: Performed By: #### 2 673813 #### [facility] [address] [place] [address] Sodium [Moles/Vol] 129 mmol/L Low 135-145 [facility] Comment on above: Performed By: #### 2 622448 #### [facility] [address] [place] [address] Urea nitrogen [Mass/Vol] 6 mg/dL Normal 5-21 [facility] Comment on above: Performed By: #### 2 193486 #### [facility] [address] [place] [address] Urea nitrogen/Creatinine [Mass ratio] 12 No Units Normal 10-20 [facility] Comment on above: Performed By: #### 2 819811 #### [facility] [address] [place] [address] [id number] 04-19-2024 HbA1c (Bld) [Mass fraction] 11.8 % High <=5.9 [facility] Comment on above: Performed By: #### 7 [id number] #### [facility] [address] [place] [address] Lipid Panelon 04-19-2024 Cholesterol [Mass/Vol] 86 mg/dL Low 120-200 [facility] Comment on above: Performed By: #### 2 283117 #### [facility] [address] [place] [address] Cholesterol in HDL [Mass/Vol] 26 mg/dL Invalid Interpretation Code [facility] Comment on above: Result Comment: '>= 60 LOW RISK' '<= 40 HIGH RISK' Performed By: #### 2 864339 #### [facility] [address] [place] [address] Cholesterol in LDL [Mass/Vol] 49 mg/dL Normal <=129 [facility] Comment on above: Performed By: #### 2 648188 #### [facility] [address] [place] [address] Cholesterol in VLDL [Mass/Vol] 14 mg/dL Normal 7-40 [facility] Comment on above: Performed By: #### 2 630524 #### [facility] [address] [place] [address] Triglyceride [Mass/Vol] 69 mg/dL Normal <=149 [facility] Comment on above: Performed By: #### 2 989771 #### [facility] [address] [place] [address] TSHon 04-19-2024 TSH Qn 1.38 m[IU]/L Normal 0.34-5.60 [facility] Comment on above: Performed By: #### 2 [id number] #### [facility] [address] [place] [address] eGFRon 04-19-2024 eGFR 106 mL/min/1.73 m2 Normal >=59 [facility] Comment on above: Performed By: #### 1 [id number] #### [facility] [address] [place] [address] Family Medicine Office/Clini c Noteon 04-18-2024 Family [...] times recently no injuries. Was seen at [facility] ER on 04/06 for URI covid test [...] inh, Inhalation, q6hr, 8.5 gm, Refill(s) 0, [facility], 155.8, cm, 04/18/24 14:43:00 EST, Height/Length Dosing, 61.8, kg, 04/18/24 14:43:00 EST, Weight Dosing fluticasone-salmeterol, 1 puff(s), Inhalation, BID for 90 day(s), 180 EA, Refill(s) 0, [facility], 155.8, cm, 04/18/24 14:43:00 EST, Height/Length Dosing, 61.8, kg, 04/18/24 14:43:00 EST, Weight Dosing levofloxacin, 500 mg = 1 tab(s), Oral, q24hr, X 7 day(s), # 7 tab(s), Refills(s) 0, Pharmacy: [facility], 155.8, cm, 04/18/24 14:43:00 EST, Height/Length Dosing, 61.8, kg, 04/18/24 14:43:00 EST, Weight Dosing triamcinolone, 40 mg = 1 mL, Injection, IntraARTICULAR, Once, Stop date 04/18/24 15:03:00 EST, Routine, Start date 04/18/24 15:03:00 EST, 04/18/24 15:03:00 EST CBC w/ Auto Diff Comprehensive Metabolic Panel HgbA1c Lab Specimen Collect [id number] Lipid Panel Thyroid Stimulating Hormone 2. Congestion of nasal sinus (R09.81: Nasal congestion) covid and flu negative Ordered: albuterol, 180 mcg, 2 inh, Inhalation, q6hr, 8.5 gm, Refill(s) 0, [facility], 155.8, cm, 04/18/24 14:43:00 EST, Height/Length Dosing, 61.8, kg, 04/18/24 14:43:00 EST, Weight Dosing fluticasone-salmeterol, 1 puff(s), Inhalation, BID for 90 day(s), 180 EA, Refill(s) 0, [facility], 155.8, cm, 04/18/24 14:43:00 EST, Height/Length Dosing, 61.8, kg, 04/18/24 14:43:00 EST, Weight Dosing levofloxacin, 500 mg = 1 tab(s), Oral, q24hr, X 7 day(s), # 7 tab(s), Refills(s) 0, Pharmacy: [facility], 155.8, cm, 04/18/24 14:43:00 EST, Height/Length Dosing, 61.8, kg, 04/18/24 14:43:00 EST, Weight Dosing triamcinolone, 40 mg = 1 mL, Injection, IntraARTICULAR, Once, Stop date 04/18/24 15:03:00 EST, Routine, Start date 04/18/24 15:03:00 EST, 04/18/24 15:03:00 EST CBC w/ Auto Diff Comprehensive Metabolic Panel HgbA1c Lab Specimen Collect 11252 Lipid Panel Thyroid Stimulating Hormone 3. Dizziness (R42: Dizziness and giddiness) CBC checked Ordered: albuterol, 180 mcg, 2 inh, Inhalation, q6hr, 8.5 gm, Refill(s) 0, [facility], 155.8, cm, 04/18/24 14:43:00 EST, Height/Length Dosing, 61.8, kg, 04/18/24 14:43:00 EST, Weight Dosing fluticasone-salmeterol, 1 puff(s), Inhalation, BID for 90 day(s), 180 EA, Refill(s) 0, [facility], 155.8, cm, 04/18/24 14:43:00 EST, Height/Length Dosing, 61.8, kg, 04/18/24 14:43:00 EST, Weight Dosing levofloxacin, 500 mg = 1 tab(s), Oral, q24hr, X 7 day(s), # 7 tab(s), Refills(s) 0, Pharmacy: [facility], 155.8, cm, 04/18/24 14:43:00 EST, Height/Length Dosing, 61.8, kg, 04/18/24 14:43:00 EST, Weight Dosing triamcinolone, 40 mg = 1 mL, Injection, IntraARTICULAR, Once, Stop date 04/18/24 15:03:00 EST, Routine, Start date 04/18/24 15:03:00 EST, 04/18/24 15:03:00 EST CBC w/ Auto Diff Comprehensive Metabolic Panel HgbA1c Lab Specimen Collect 18538 Lipid Panel Thyroid Stimulating Hormone 4. Hypomagnesemia (E83.42: Hypomagnesemia) CMP drawn Ordered: albuterol, 180 mcg, 2 inh, Inhalation, q6hr, 8.5 gm, Refill(s) 0, [facility], 155.8, cm, 04/18/24 14:43:00 EST, Height/Length Dosing, 61.8, kg, 04/18/24 14:43:00 EST, Weight Dosing fluticasone-salmeterol, 1 puff(s), Inhalation, BID for 90 day(s), 180 EA, Refill(s) 0, [facility], 155.8, cm, 04/18/24 14:43:00 EST, Height/Length Dosing, 61.8, (more content not included)... Normal [facility] Comment on above: Result Comment: Elec tronically Signed By: Chapis Dumont.robbie\Date and Time Signed: 04/18/24 15:41 EST Anthony 01-18-2024 CNOV Office Visit (GASTA5 ) -- TERESA LYLE ([id number]) 1960 F Date Time Provider Department 01/18/24 11:30 AM NOEMI LOCKETT GASTA5 During your visit today, we recorded the following information about you: Temperature Pulse Blood pressure Weight 98.5 degrees 84/minute 126/41 63.6 kg Height 1.575 m Noemi Lockett APRN.CNP 01/19/2024 4:47 PM Signed NAME: Teresa Lyle CLINIC NO: [id number] REFERRING PHYSICIAN: Jena Cohen PRESENTING COMPLAINT: follow [...] daily. blood sugar diagnostic (ONE TOUCH TEST [facility]) (Patient not taking: Reported on 08/17/2022) Fluticasone Propionate 50 mcg/actuation diskus inhaler Inhale 1 Puff as instructed twice daily. (Patient not taking: Reported on 06/11/2023) tiotropium bromide 1.25 mcg/actuation mist Inhale 2 Puffs as instructed once daily. (Patient not t (more content not included)... Normal [facility] MR Biliary ducts and Pancrea tic [...] Lower chest: Unremarkable. DIVISION OF RADIOLOGY Provider, [facility] - 01/18/2024 * * *Final Report* * * DATE OF EXAM: Jan 18 2024 10:41AM [facility] 0730 - MRI PANC/TRISTAN WO/W IVCON / [...] be communicated with the ordering provider via [employer] staff message or phone message by [facility] within 2 business days of report finalization. --END OF FINDING-- Information Systems Specialist: PSCAugusto Transcribe Date/Time: Jan 18 2024 11:12A Dictated by : JOSE RAMON JENNINGS MD This examination was interpreted and the report reviewed and electronically signed by: ALEXEY SILVA MD on Jan 18 2024 4:53PM [facility] MR Unspecified body region 3 D post [...] chest: Unremarkable. DIVISION [facility]OLOGY [facility] * * *Final Report* * * DATE OF EXAM: Jan 18 2024 10:41AM [facility] 0280 - MRI 3D POST PROCESSING / [...] be communicated with the ordering provider via [employer] staff message or phone message by [facility] within 2 business days of report finalization. --END OF FINDING-- Information Systems Specialist: EDDIE Transcribe Date/Time: Jan 18 2024 11:12A Dictated by : JOSE RAMON JENNINGS MD This examination was interpreted and the report reviewed and electronically signed by: ALEXEY SILVA MD on Jan 18 2024 4:53PM [facility] MRI 3D POST PROCESSINGon MRI 3D POST [...] be communicated with the ordering provider via [employer] staff message or phone message by [facility] within 2 business days of report finalization. --END OF FINDING-- Information Systems Specialist: EDDIE Transcribe Date/Time: Jan 18 2024 11:12A Dictated by : JOSE RAMON JENNINGS MD This examination was interpreted and the report reviewed and electronically signed by: ALEXEY SILVA MD on Jan 18 2024 4:53PM EST [id number] ACTIONABLE Invalid Interpretation Code [facility] MRI PANC/TRISTAN WO/W IVCONon MRI PANC/TRISTAN WO/W IVCON * * *Final Report* * * DATE OF EXAM: Jan 18 2024 10:41AM [facility] 0730 - MRI PANC/TRITSAN WO/W IVCON / PROCEDURE REASON: Hepatic cirrhosis [...] be communicated with the ordering provider via [employer] staff message or phone message by [facility] within 2 business days of report finalization. --END OF FINDING-- Information Systems Specialist: EDDIE Transcribe Date/Time: Jan 18 2024 11:12A Dictated by : JOSE RAMON JENNINGS MD This examination was interpreted and the report reviewed and electronically signed by: ALEXEY SILVA MD on Jan 18 2024 4:53PM EST [id number] ACTIONABLE Invalid Interpretation Code [facility] No Panel InformationOrdered By: [facility] Provider on 01-18-2024 Interpretation and review of laboratory results Abnormal [facility] Radiology Result ACTIONABLE Abnormal [facility] Comment on above: This report contains an [...] contact your provider for the next steps. [facility] No Panel Informationon 01-17 IMPRESSION: Cirrhotic [...] be communicated with the ordering provider via [employer] staff message or phone message by [facility] within 2 business days of report finalization. --END OF FINDING-- Information Systems Specialist: EDDIE Transcribe Date/Time: Jan 18 2024 11:12A Dictated by : JOSE RAMON JENNINGS MD This examination was interpreted and the report reviewed and electronically signed by: ALEXEY SILVA MD on Jan 18 2024 4:53PM 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 Chronic obstructive pulmonary disease (COPD) Cirrhosis of liver with ascites Diabetic neuropathy, type I diabetes mellitus Esophageal varices determined by endoscopy Gastro-esophageal reflux disease without esophagitis Hyperlipidemia Hypertensive disorder Hypo-osmolality and hyponatremia Hypomagnesemia Hypophosphatemia Iron deficiency anemia Localized edema superintendent terminal (current) use of insulin Moderate protein-calorie malnutrition [...] choosing us for your care. Normal [facility] Family Medicine Office/Clini c Noteon 01-13-2024 Family Medicine Office/Clinic Note Family Medicine Office/Clinic Note HPI Staff Teresa is a 63 year old female presenting for medication refill Gabapentin needs refilled [facility] said she was too young to get [...] had any falls since starting it. 2. superintendent terminal (current) use of insulin (Z79.4: superintendent terminal (current) use of insulin) pt manages DM with endocrinology 3. Moderate protein-calorie malnutrition (E44.0: Moderate protein-calorie malnutrition) 4. BMI 26.0-26.9,adult (Z68.26: Body mass index [BMI] 26.0-26.9, adult) BMI education given 5. Smoker (F17.200: Nicotine dependence, unspecified, uncomplicated) consider not smoking Orders: gabapentin, 300 mg = 1 cap(s), Oral, TID, X 90 day(s), # 270 cap(s), Refills(s) 3, Pharmacy: [id number], 155.8, cm, 01/13/24 14:55:00 EST, Height/Length Dosing, 64.7, kg, 01/13/24 14:55:00 EST, Weight Dosing gabapentin, 300 mg = 1 cap(s), Oral, TID, # 90 cap(s), Refills(s) 5, Pharmacy: [facility], 155.8, cm, 12/21/22 13:11:00 EDT, Height/Length Dosing, 70, kg, 12/21/22 13:11:00 EDT, Weight Dosing pantoprazole, 40 mg = 1 tab(s), Oral, Daily, # 90 tab(s), Refills(s) 3, Pharmacy: [facility]72, 155.8, cm, 12/21/22 13:11:00 EDT, Height/Length [...] Hypomagnesemia Hypophosphatemia Iron deficiency anemia Localized edema [facility] (current) use of insulin Moderate protein-calorie malnutrition [...] influenza virus vaccine, inactivated 10/20/2021 Recorded SARSCoV2 mRNA([id number]-pavtau ) vac 05/27/2021 Recorded hepatitis B adult vaccine 10/23/2020 Recorded SARS-CoV-2 (COVID-19) mRNA BNT-162b2 vax 07/24/2020 Recorded SARS-CoV-2 (COVID-19) mRNA BNT-162b2 vax 07/03/2020 Recorded influenza virus vaccine, inactivated 11/01/2019 Recorded pneumococcal 23-valent vaccine 11/23/2017 Recorded influenza virus vaccine, inactivated 11/23/2017 Recorded influenza vir (more content not included)... Normal [facility] Comment on above: Result Comment: Elec tronically Signed By: Chapis Dumont\Date and Time Signed: 01/13/24 15:10 EST AFP Tumor Marker, Serumon AFP Tumor Marker, Serum <1.8 Normal 0.0-9.2 [facility] Comment on above: Result Comment: [facility] [employer] Electrochemiluminescence Immunoassay (ECLIA) Values obtained with different assay methods or kits cannot be used interchangeably. Results cannot be interpreted as absolute evidence of the presence or absence of malignant disease. This test is not interpretable in females. Performed at: [facility] [id number] Library Media Assistant: Bret Montgomery PhD, Phone: [phone] PERFORMED BY: [place] [address] PATHOLOGIST KEY BED INSTALLER CLAU PONCE M.D. Performed By: #### C RP, TSH3, ESR, BMP, BHOB, LIPASE, HEPATIC, SCAN CBC, PT #### [address] Alanine aminotransferase [En zymatic activity/volume] in Serum or PlasmaOrdered By: Jena Cohen on 11-23-2023 ALT [Catalytic activity/Vol] 25 U/L Normal 7-52 [facility] Comment on above: Performed By: #### C RP, TSH3, ESR, BMP, BHOB, LIPASE, HEPATIC, SCAN CBC, PT #### [place] [address] [place] Albumin [Mass/volume] in Ser um or Plasma by Bromocresol green (BCG) dye binding methoOrdered By: Jena Cohen on 11-23-2023 Albumin BCG dye [Mass/Vol] 2.8 g/dL Low 3.5-5.7 [facility] Alkaline phosphatase [Enzyma tic activity/volume] in Serum or PlasmaOrdered By: Jena Cohen on 11-23-2023 ALP [Catalytic activity/Vol] 222 U/L High 34-104 [facility] Comment on above: Performed By: #### C RP, TSH3, ESR, BMP, BHOB, LIPASE, HEPATIC, SCAN CBC, PT #### [facility] [address] Anisocytosis [Presence] in B lood by Light microscopyOrdered By: Jena Cohen on 11-23-2023 Anisocytosis Ql (Bld) Marked Normal [facility] Comment on above: Performed By: #### C RP, TSH3, ESR, BMP, BHOB, LIPASE, HEPATIC, SCAN CBC, PT #### [address] Aspartate aminotransferase [ Enzymatic activity/volume] in Serum or PlasmaOrdered By: Jena Cohen on 11-23-2023 AST [Catalytic activity/Vol] 43 U/L High 13-39 [facility] Comment on above: Performed By: #### C RP, TSH3, ESR, BMP, BHOB, LIPASE, HEPATIC, SCAN CBC, PT #### [address] Automated basophil %Ordered By: Jena Cohen on 11-23-2023 Basophils/100 WBC (Bld) 1.0 % Normal . [facility] Comment on above: Performed By: #### C RP, TSH3, ESR, BMP, BHOB, LIPASE, HEPATIC, SCAN CBC, PT #### [address] Automated basophil countOrde red By: Jena Cohen on 11-23-2023 Basophils (Bld) [#/Vol] 0.0 10*3/uL Normal 0.0-0.2 [facility] Comment on above: Performed By: #### C RP, TSH3, ESR, BMP, BHOB, LIPASE, HEPATIC, SCAN CBC, PT #### [address] Automated blood monocyte cou ntOrdered By: Jena Cohen on 11-23-2023 Monocytes (Bld) [#/Vol] 0.4 10*3/uL Normal 0.0-0.8 [facility] Comment on above: Performed By: #### C RP, TSH3, ESR, BMP, BHOB, LIPASE, HEPATIC, SCAN CBC, PT #### [address] [place] [address] [place] Automated eosinophil %Ordere d By: Jena Cohen on 11-23-2023 Eosinophils/100 WBC (Bld) 4.4 % Normal . [facility] Comment on above: Performed By: #### C RP, TSH3, ESR, BMP, BHOB, LIPASE, HEPATIC, SCAN CBC, PT #### [facility] [address] Automated eosinophil countOr dered By: Jena Cohen on 11-23-2023 Eosinophils (Bld) [#/Vol] 0.2 10*3/uL Normal 0.0-0.45 [facility] Comment on above: Performed By: #### C RP, TSH3, ESR, BMP, BHOB, LIPASE, HEPATIC, SCAN CBC, PT #### [facility] [address] Automated monocyte %Ordered By: Jena Cohen on 11-23-2023 Monocytes/100 WBC (Bld) 10.4 % Normal . [facility] Comment on above: Performed By: #### C RP, TSH3, ESR, BMP, BHOB, LIPASE, HEPATIC, SCAN CBC, PT #### [facility] [address] Automated neutrophil %Ordere d By: Jena Cohen on 11-23-2023 Neutrophils/100 WBC (Bld) 62.1 % Normal . [facility] Comment on above: Performed By: #### C RP, TSH3, ESR, BMP, BHOB, LIPASE, HEPATIC, SCAN CBC, PT #### [facility] [address] Basic Metabolic Panelon 10-31 GFR/1.73 sq M.predicted MDRD (S/P/Bld) [Vol rate/Area] mL/min/{1.73_m2} Normal [facility] Comment on above: Performed By: #### C RP, TSH3, ESR, BMP, BHOB, LIPASE, HEPATIC, SCAN CBC, PT #### [address] Bilirubin.direct [Mass/volum e] in Serum or PlasmaOrdered By: Jena Cohen on 11-23-2023 Bilirubin.direct [Mass/Vol] 0.70 mg/dL High 0.03-0.18 [facility] Bilirubin.total [Mass/volume ] in Serum or PlasmaOrdered By: Jena Cohen on 11-23-2023 Bilirubin [Mass/Vol] 1.5 mg/dL High 0.3-1.0 [facility] Comment on above: Samples from patient [...] BHOB, LIPASE, HEPATIC, SCAN CBC, PT #### [facility] [address] [place] [address] [place] Calcium [Mass/volume] in Ser um or PlasmaOrdered By: Jena Cohen on 11-23-2023 Calcium [Mass/Vol] 8.0 mg/dL Low 8.6-10.3 [facility] Comment on above: Result Comment: PERF ORMED BY: [facility] [address] [place] [address] PATHOLOGIST KEY BED INSTALLER CLAU PONCE M.D. Performed By: #### C RP, TSH3, ESR, BMP, BHOB, LIPASE, HEPATIC, SCAN CBC, PT #### [facility] [address] [place] [id number] [place] Carbon dioxide, total [Moles /volume] in Serum or PlasmaOrdered By: Jena Cohen on 11-23-2023 CO2 [Moles/Vol] 25.9 mmol/L Normal 21.0-31.0 [facility] Comment on above: Performed By: #### C RP, TSH3, ESR, BMP, BHOB, LIPASE, HEPATIC, SCAN CBC, PT #### [facility] [address] [place] [address] [place] Chloride [Moles/volume] in S michael or PlasmaOrdered By: Jena Cohen on 11-23-2023 Chloride [Moles/Vol] 103 mmol/L Normal 98-107 [facility] Comment on above: Performed By: #### C RP, TSH3, ESR, BMP, BHOB, LIPASE, HEPATIC, SCAN CBC, PT #### [facility] [address] Creatinine [Mass/volume] in Serum or PlasmaOrdered By: Jena Cohen on 11-23-2023 Creatinine [Mass/Vol] 0.61 mg/dL Normal 0.60-1.20 [facility] Comment on above: Performed By: #### C RP, TSH3, ESR, BMP, BHOB, LIPASE, HEPATIC, SCAN CBC, PT #### [facility] [address] Erythrocyte distribution wid th [Ratio] by Automated countOrdered By: Jena Cohen on 11-23-2023 Erythrocyte distribution width (RBC) [Ratio] 20.5 % High 11.9-15.3 [facility] Comment on above: Performed By: #### C RP, TSH3, ESR, BMP, BHOB, LIPASE, HEPATIC, SCAN CBC, PT #### [facility] [address] [place] [address] [place] Erythrocytes [#/volume] in B lood by Automated countOrdered By: Jena Cohen on 11-23-2023 RBC (Bld) [#/Vol] 4.48 10*6/uL Normal 3.60-5.00 [facility] Comment on above: Performed By: #### C RP, TSH3, ESR, BMP, BHOB, LIPASE, HEPATIC, SCAN CBC, PT #### [facility] [address] [place] [address] [place] Glucose [Mass/volume] in Ser um or PlasmaOrdered By: Jena Cohen on 11-23-2023 Glucose [Mass/Vol] 334 mg/dL High 70-100 [facility] Comment on above: ADA recommended refe rence rangeRandom Glucose Reference Range is dependent on time and content of last meal. Glucose of more than 200 mg/dL in a nonstressed, ambulatory subject supports the diagnosis of Diabetes Mellitus. Result Comment: [place] om Glucose Reference Range is dependent on time and content of last meal. Glucose of more than 200 mg/dL in a nonstressed, ambulatory subject supports the diagnosis of Diabetes Mellitus. ADA recommended reference range Performed By: #### C RP, TSH3, ESR, BMP, BHOB, LIPASE, HEPATIC, SCAN CBC, PT #### [facility] [address] Hematocrit [Volume Fraction] of Blood by Automated countOrdered By: Jena Cohen on 11-23-2023 Hematocrit (Bld) [Volume fraction] 31.2 % Low 34.0-46.4 [facility] Comment on above: Performed By: #### C RP, TSH3, ESR, BMP, BHOB, LIPASE, HEPATIC, SCAN CBC, PT #### [facility] [address] Hemoglobin [Mass/volume] in BloodOrdered By: Jena Cohen on 11-23-2023 Hemoglobin (Bld) [Mass/Vol] 9.7 g/dL Low 11.8-15.4 [facility] Comment on above: Performed By: #### C RP, TSH3, ESR, BMP, BHOB, LIPASE, HEPATIC, SCAN CBC, PT #### [facility] [address] Hepatic Panelon 11-23-2023 Albumin [Mass/Vol] 2.8 g/dL Low 3.5-5.7 [facility] Comment on above: Performed By: #### C RP, TSH3, ESR, BMP, BHOB, LIPASE, HEPATIC, SCAN CBC, PT #### [facility] [address] Bilirubin,Indirect 0.8 mg/dL Normal [facility] Comment on above: Performed By: #### C RP, TSH3, ESR, BMP, BHOB, LIPASE, HEPATIC, SCAN CBC, PT #### [facility] [address] Bilirubin.indirect [Mass/Vol] 0.70 mg/dL High 0.03-0.18 [facility] Comment on above: Performed By: #### C RP, TSH3, ESR, BMP, BHOB, LIPASE, HEPATIC, SCAN CBC, PT #### [address] Hypochromia LM Ql (Bld)Order ed By: Jena Cohen on 11-23-2023 Hypochromia Ql (Bld) Moderate [facility] INR in Platelet poor plasma by Coagulation assayOrdered By: Jena Cohen on 11-23-2023 INR Coag (PPP) [Relative time] 1.2 {INR} Normal [facility] Comment on above: INR Therapeutic Rang e [...] heart valves: 3 - 4.5 PERFORMED BY: [place] [address] PATHOLOGIST KEY BED INSTALLER CLAU PONCE M.D. Performed By: #### C RP, TSH3, ESR, BMP, BHOB, LIPASE, HEPATIC, SCAN CBC, PT #### [address] Leukocytes [#/volume] correc lyly for nucleated erythrocytes in Blood by Automated counOrdered By: Jena Cohen on 11-23-2023 WBC corrected for nucl RBC Auto (Bld) [#/Vol] 3.7 10*3/uL Low 3.8-11.6 [facility] Leukocytes [#/volume] in Blo od by Automated countOrdered By: Jena Cohen on 11-23-2023 WBC (Bld) [#/Vol] 3.7 10*3/uL Low 3.8-11.6 [facility] Comment on above: Performed By: #### C RP, TSH3, ESR, BMP, BHOB, LIPASE, HEPATIC, SCAN CBC, PT #### [address] Lymphocytes [#/volume] in Bl ood by Automated countOrdered By: Jena Cohen on 11-23-2023 Lymphocytes (Bld) [#/Vol] 0.8 10*3/uL Low 1.00-4.8 [facility] Comment on above: Performed By: #### C RP, TSH3, ESR, BMP, BHOB, LIPASE, HEPATIC, SCAN CBC, PT #### [facility] [address] Lymphocytes/100 leukocytes i n Blood by Automated countOrdered By: Jena Cohen on 11-23-2023 Lymphocytes/100 WBC (Bld) 22.1 % Normal . [facility] Comment on above: Performed By: #### C RP, TSH3, ESR, BMP, BHOB, LIPASE, HEPATIC, SCAN CBC, PT #### [facility] [address] MCH [Entitic mass] by Automa lyly countOrdered By: Jena Cohen on 11-23-2023 MCH (RBC) [Entitic mass] 21.7 pg Low 24.7-34.3 [facility] Comment on above: Performed By: #### C RP, TSH3, ESR, BMP, BHOB, LIPASE, HEPATIC, SCAN CBC, PT #### [address] MCHC Auto (RBC) [Mass/Vol]Or dered By: Jena Cohen on 11-23-2023 MCHC (RBC) [Mass/Vol] 31.2 g/dL Low 32.0-35.0 [facility] MCV [Entitic volume] by Auto mated countOrdered By: Jena Cohen on 11-23-2023 MCV (RBC) [Entitic vol] 69.6 fL Low 80-100 [facility] Comment on above: Performed By: #### C RP, TSH3, ESR, BMP, BHOB, LIPASE, HEPATIC, SCAN CBC, PT #### [facility] [address] Magnesium [Mass/volume] in S michael or PlasmaOrdered By: Mickey Lovett on 11-23-2023 Magnesium [Mass/Vol] 1.7 mg/dL Low 1.9-2.7 [facility] Comment on above: Performed By: #### C RP, TSH3, ESR, BMP, BHOB, LIPASE, HEPATIC, SCAN CBC, PT #### [facility] [address] Microcytes LM Ql (Bld)Ordere d By: Jena Cohen on 11-23-2023 Microcytes Ql (Bld) Moderate [facility] Neutrophils [#/volume] in Bl ood by Automated countOrdered By: Jena Cohen on 11-23-2023 Neutrophils (Bld) [#/Vol] 2.3 10*3/uL Normal 1.8-7.7 [facility] Comment on above: Performed By: #### C RP, TSH3, ESR, BMP, BHOB, LIPASE, HEPATIC, SCAN CBC, PT #### [facility] [address] No Panel InformationOrdered By: Jena Cohen on 11-23-2023 Estimated GFR (CKD-EPI) > 60.0 mL/Min [facility] Creatinine Clearance (Chem N/A [facility] Nucleated erythrocytes [Pres ence] in Blood by Automated countOrdered By: Jena Cohen on 11-23-2023 Nucleated RBC Auto Ql (Bld) 0.2 /100{WBC} 0-0.5 [facility] Ovalocyte detectionOrdered B y: Jena Cohen on 11-23-2023 Ovalocytes LM Ql (Bld) Slight [facility] Phosphate [Mass/volume] in S michael or PlasmaOrdered By: Mickey Lovett on 11-23-2023 Phosphate [Mass/Vol] 3.5 mg/dL Normal 2.5-4.5 [facility] Comment on above: Performed By: #### R ENAL ####[facility] [id number] [address] Platelet adequacy [Presence] in Blood by Light microscopyOrdered By: Jena Cohne on 11-23-2023 Platelets LM Ql (Bld) Decreased Normal [facility] Platelet mean volume [Entiti c volume] in Blood by Automated countOrdered By: Jena Cohen on 11-23-2023 Platelet mean volume (Bld) [Entitic vol] 9.0 fL Normal 6.3-10.7 [facility] Comment on above: Performed By: #### C RP, TSH3, ESR, BMP, BHOB, LIPASE, HEPATIC, SCAN CBC, PT #### [facility] [address] [place] [address] [place] Platelet morphology finding [Identifier] in BloodOrdered By: Jena Cohen on 11-23-2023 Platelet morphology finding Nom (Bld) Normal Normal [facility] Platelets [#/volume] in Bloo d by Automated countOrdered By: Jena Cohen on 11-23-2023 Platelets (Bld) [#/Vol] 63 10*3/uL Low 150-450 [facility] Comment on above: Performed By: #### C RP, TSH3, ESR, BMP, BHOB, LIPASE, HEPATIC, SCAN CBC, PT #### [facility] [address] [place] [address] [place] Poikilocytosis [Presence] in Blood by Light microscopyOrdered By: Jena Cohen on 11-23-2023 Poikilocytosis LM Ql (Bld) [facility] Polychromasia [Presence] in Blood by Light microscopyOrdered By: Jena Cohen on 11-23-2023 Polychromasia LM Ql (Bld) [facility] Potassium [Moles/volume] in Serum or PlasmaOrdered By: Jena Cohen on 11-23-2023 Potassium [Moles/Vol] 4.1 mmol/L Normal 3.5-5.1 [facility] Comment on above: Performed By: #### C RP, TSH3, ESR, BMP, BHOB, LIPASE, HEPATIC, SCAN CBC, PT #### [facility] [address] Protein [Mass/volume] in Ser um or PlasmaOrdered By: Jena Cohen on 11-23-2023 Protein [Mass/Vol] 6.9 g/dL Normal 6.4-8.9 [facility] Comment on above: Performed By: #### C RP, TSH3, ESR, BMP, BHOB, LIPASE, HEPATIC, SCAN CBC, PT #### [facility] [address] Prothrombin time (PT)Ordered By: Jena Cohen on 11-23-2023 PT Coag (PPP) [Time] 14.2 s High 9.0-12.9 [facility] Comment on above: A hematocrit value g reater than 55% may lead to inaccurate results in coagulation testing. Patients having hematocrit values >55% require a special collection tube for coagulation studies. Please contact the laboratory at [phone] for redraw instructions. Result Comment: A he matocrit value greater than 55% may lead to inaccurate results in coagulation testing. Patients having hematocrit values >55% require a special collection tube for coagulation studies. Please contact the laboratory at [phone] for redraw instructions. Performed By: #### C RP, TSH3, ESR, BMP, BHOB, LIPASE, HEPATIC, SCAN CBC, PT #### [facility] [address] RBC morphologyOrdered By: Mirian Cohen on 11-23-2023 RBC morphology finding Nom (Bld) N/A [facility] Renal Function Panelon 11-22 Albumin [Mass/Vol] 2.7 g/dL Low 3.5-5.7 [facility] Comment on above: Result Comment: PERF ORMED BY: [facility] [place] [id number] PATHOLOGIST KEY BED INSTALLER CLAU PONCE M.D. Performed By: #### R ENAL ####[place] [id number] [facility] Anion gap [Moles/Vol] 7.0 mmol/L Normal 6.0-15.0 [facility] Comment on above: Performed By: #### R ENAL ####[address] Calcium [Mass/Vol] 7.9 mg/dL Low 8.6-10.3 [facility] Comment on above: Performed By: #### R ENAL ####[address] Chloride [Moles/Vol] 103 mmol/L Normal 98-107 [facility] Comment on above: Performed By: #### R ENAL ####[address] CO2 [Moles/Vol] 26.1 mmol/L Normal 21.0-31.0 [facility] Comment on above: Performed By: #### R ENAL ####[address] Creatinine [Mass/Vol] 0.61 mg/dL Normal 0.60-1.20 [facility] Comment on above: Performed By: #### R ENAL ####[address] GFR/1.73 sq M.predicted MDRD (S/P/Bld) [Vol rate/Area] mL/min/{1.73_m2} Normal [facility] Comment on above: Performed By: #### R ENAL ####[address] Glucose [Mass/Vol] 337 mg/dL High 70-100 [facility] Comment on above: Result Comment: [place] Glucose Reference Range is dependent on time and content of last meal. Glucose of more than 200 mg/dL in a nonstressed, ambulatory subject supports the diagnosis of Diabetes Mellitus. ADA recommended reference range Performed By: #### R ENAL ####[place] [id number] [address] Potassium [Moles/Vol] 4.1 mmol/L Normal 3.5-5.1 [facility] Comment on above: Performed By: #### R ENAL ####[place] [address] [address] Sodium [Moles/Vol] 132 mmol/L Low 136-145 [facility] Comment on above: Performed By: #### R ENAL ####[place] [address] [address] Urea nitrogen [Mass/Vol] 10 mg/dL Normal 7-25 [facility] Comment on above: Performed By: #### R ENAL ####[address] Scan and CBCon 11-23-2023 Hypochromasia Moderate Normal [facility] Comment on above: Performed By: #### C RP, TSH3, ESR, BMP, BHOB, LIPASE, HEPATIC, SCAN CBC, PT #### [facility] [address] Mean Corpuscular HGB Conc 31.2 g/dL Low 32.0-35.0 [facility] Comment on above: Performed By: #### C RP, TSH3, ESR, BMP, BHOB, LIPASE, HEPATIC, SCAN CBC, PT #### [facility] [address] Microcytosis Moderate Normal [facility] Comment on above: Performed By: #### C RP, TSH3, ESR, BMP, BHOB, LIPASE, HEPATIC, SCAN CBC, PT #### [facility] [address] NRBC% 0.2 /100{WBC} Normal 0-0.5 [facility] Comment on above: Performed By: #### C RP, TSH3, ESR, BMP, BHOB, LIPASE, HEPATIC, SCAN CBC, PT #### [address] Ovalocytes Slight Normal [facility] Comment on above: Performed By: #### C RP, TSH3, ESR, BMP, BHOB, LIPASE, HEPATIC, SCAN CBC, PT #### [facility] [address] Platelet Estimate Decreased Normal Normal [facility] Comment on above: Performed By: #### C RP, TSH3, ESR, BMP, BHOB, LIPASE, HEPATIC, SCAN CBC, PT #### [facility] [address] Platelet Morphology Normal Normal Normal [facility] Comment on above: Result Comment: PERF ORMED BY: [place] [address] PATHOLOGIST KEY BED INSTALLER CLAU PONCE M.D. Performed By: #### C RP, TSH3, ESR, BMP, BHOB, LIPASE, HEPATIC, SCAN CBC, PT #### [address] Poikilocytosis Slight Normal [facility] Comment on above: Performed By: #### C RP, TSH3, ESR, BMP, BHOB, LIPASE, HEPATIC, SCAN CBC, PT #### [address] Polychromasia Slight Normal [facility] Comment on above: Performed By: #### C RP, TSH3, ESR, BMP, BHOB, LIPASE, HEPATIC, SCAN CBC, PT #### [address] Tear Drop Cells Slight Normal [facility] Comment on above: Performed By: #### C RP, TSH3, ESR, BMP, BHOB, LIPASE, HEPATIC, SCAN CBC, PT #### [address] Serum globulin measurement b y calculation (mass/volume)Ordered By: Jena Cohen on 11-23-2023 Globulin (S) [Mass/Vol] 4.1 g/dL Normal [facility] Comment on above: Performed By: #### C RP, TSH3, ESR, BMP, BHOB, LIPASE, HEPATIC, SCAN CBC, PT #### [facility] [address] Serum or plasma albumin/glob ulin mass ratioOrdered By: Jena Cohen on 11-23-2023 Albumin/Globulin [Mass ratio] 0.7 {ratio} Normal [facility] Comment on above: Performed By: #### C RP, TSH3, ESR, BMP, BHOB, LIPASE, HEPATIC, SCAN CBC, PT #### [facility] [address] Serum or plasma [id number] protein tumor marker measurement (mass/volume)Ordered By: Jena Cohen on 11-23-2023 AFP.tumor marker [Mass/Vol] ng/mL 0.0-9.2 [facility] Comment on above: [employer] [place] ectrochemiluminescence Immunoassay(ECLIA)Values obtained with different assay methods or kits cannotbe used interchangeably. Results cannot be interpreted asabsolute evidence of the presence or absence of malignantdisease.This test is not interpretable in females.Performed at: [facility] Director: Bret Montgomery PhD, Phone: [phone] Serum or plasma anion gap de terminationOrdered By: Jena Cohen on 11-23-2023 Anion gap [Moles/Vol] 7.2 mmol/L Normal 6.0-15.0 [facility] Comment on above: Performed By: #### C RP, TSH3, ESR, BMP, BHOB, LIPASE, HEPATIC, SCAN CBC, PT #### [address] Serum or plasma non-glucuron idated bilirubin measurement (mass/volume)Ordered By: Jena Cohen on 11-23-2023 Bilirubin.indirect [Mass/Vol] 0.8 mg/dL [facility] Sodium [Moles/volume] in Ser um or PlasmaOrdered By: Jena Cohen on 11-23-2023 Sodium [Moles/Vol] 132 mmol/L Low 136-145 [facility] Comment on above: Performed By: #### C RP, TSH3, ESR, BMP, BHOB, LIPASE, HEPATIC, SCAN CBC, PT #### [facility] [address] Teardrop cell detectionOrder ed By: Jena Cohen on 11-23-2023 Dacrocytes LM Ql (Bld) Slight [facility] Urea nitrogen [Mass/volume] in Serum or PlasmaOrdered By: Jena Cohen on 11-23-2023 Urea nitrogen [Mass/Vol] 10 mg/dL Normal 7-25 [facility] Comment on above: Performed By: #### C RP, TSH3, ESR, BMP, BHOB, LIPASE, HEPATIC, SCAN CBC, PT #### [facility] [address] [id number] [facility] Vitamin D 25 Hydroxy Totalon 11-23-2023 Vitamin D 25 Hydroxy Total 25.6 ng/mL Low 30-100 [facility] Comment on above: Result Comment: DEVAN MIN D STATUS 25(OH)VITAMIN D RANGE (ng/mL) Deficient <20 Insufficient 20 to <30 Sufficient 30 to 100 Reference: Benson Teran, Bola GIRON, et al. Evaluation,treatment, and prevention of vitamin D deficiency; an Endocrine Society clinical practice guideline. JCEM. 2010; 96(7):1911-30. PERFORMED BY: [place] [address] PATHOLOGIST KEY BED INSTALLER CLAU PONCE M.D. Performed By: #### C RP, TSH3, ESR, BMP, BHOB, LIPASE, HEPATIC, SCAN CBC, PT #### [facility] [id number] [facility] Vitamin D+Metabolites [Mass/ volume] in Serum or PlasmaOrdered By: Mickey Lovett on 11-23-2023 Vitamin D+Metabolites [Mass/Vol] 25.6 ng/mL Low 30-100 [facility] Comment on above: VITAMIN D STATUS 25( OH)VITAMIN D RANGE (ng/mL) Deficient <20 Insufficient 20 to <30Sufficient 30 to 100Reference: Benson Teran, Bola GIRON, et al. Evaluation,treatment, and prevention of vitamin D deficiency; an Endocrine Society clinical practice guideline. JCEM. 2010; 96(7):1911-30. Consultation Noteon 07-22-19 Consultation Note [id number]#1.00TIFF Normal [facility] Home Health Recordson 2023 Home Health Records [id number]#1.00TIFF Normal [facility] Alanine aminotransferase [En zymatic activity/volume] in Serum or PlasmaOrdered By: Ajay Elam on 07-16-2023 ALT [Catalytic activity/Vol] 19 U/L 7-52 [facility] Albumin [Mass/volume] in Ser um or Plasma by Bromocresol green (BCG) dye binding methoOrdered By: Ajay Elam on 07-16-2023 Albumin BCG dye [Mass/Vol] 2.8 g/dL 3.5-5.7 [facility] Alkaline phosphatase [Enzyma tic activity/volume] in Serum or PlasmaOrdered By: Ajay Elam on 07-16-2023 ALP [Catalytic activity/Vol] 227 U/L 34-104 [facility] Aspartate aminotransferase [ Enzymatic activity/volume] in Serum or PlasmaOrdered By: Ajay Elam on 07-16-2023 AST [Catalytic activity/Vol] 36 U/L 13-39 [facility] Bilirubin.total [Mass/volume ] in Serum or PlasmaOrdered By: Ajay Elam on 07-16-2023 Bilirubin [Mass/Vol] 1.5 mg/dL 0.3-1.0 [facility] Comment on above: Samples from patient s who have taken Naproxen have shown spurious elevation in Total Bilirubin levels. A metabolite of Naproxen, O-desmethylnaproxen, has been shown to interfere with the Ashley method for measuring Total Bilirubin. Calcium [Mass/volume] in Ser um or PlasmaOrdered By: Ajay Elam on 07-16-2023 Calcium [Mass/Vol] 8.3 mg/dL 8.6-10.3 [facility] Carbon dioxide, total [Moles /volume] in Serum or PlasmaOrdered By: Ajay Elam on 07-16-2023 CO2 [Moles/Vol] 26.4 mmol/L 21.0-31.0 [facility] Chloride [Moles/volume] in S michael or PlasmaOrdered By: Ajay Elam on 07-16-2023 Chloride [Moles/Vol] 103 mmol/L 98-107 [facility] Cholesterol [Mass/volume] in Serum or PlasmaOrdered By: Ajay Elam on 07-16-2023 Cholesterol [Mass/Vol] 116 mg/dL 140-200 [facility] Comment on above: Chol less than 200 m g/dl low riskChol 201-239 mg/dl borderline riskChol 240 mg/dl and greater high risk Cholesterol in LDL Calc [Mas s/Vol]Ordered By: Ajay Elam on 07-16-2023 Cholesterol in LDL [Mass/Vol] 55 mg/dL 0-100 [facility] Comment on above: LDL ATP III CLASSIFI CATIONLDL less than 100 mg/dL OptimalLDL 100-129 mg/dL Near or above optimalLDL 130-159 mg/dL Borderline highLDL 160-189 mg/dL HighLDL greater than 189 mg/dL Very high Cholesterol in VLDL Calc [Ma ss/Vol]Ordered By: Ajay Elam on 07-16-2023 Cholesterol in VLDL [Mass/Vol] 15 mg/dL [facility] Creatinine [Mass/volume] in Serum or PlasmaOrdered By: Ajay Elam on 07-16-2023 Creatinine [Mass/Vol] 0.55 mg/dL 0.60-1.20 [facility] Creatinine [Mass/volume] in UrineOrdered By: Ajay Elam on 07-16-2023 Creatinine (U) [Mass/Vol] 81.0 mg/dL [facility] Comment on above: No reference range e stablished Globulin Calc (S) [Mass/Vol] Ordered By: Ajay Elam on 07-16-2023 Globulin (S) [Mass/Vol] 4.2 g/dL [facility] Glucose [Mass/volume] in Ser um or PlasmaOrdered By: Ajay Elam on 07-16-2023 Glucose [Mass/Vol] 197 mg/dL 70-100 [facility] Comment on above: ADA recommended refe rence rangeRandom Glucose Reference Range is dependent on time and content of last meal. Glucose of more than 200 mg/dL in a nonstressed, ambulatory subject supports the diagnosis of Diabetes Mellitus. Glucose mean value [Mass/vol ume] in Blood Estimated from glycated hemoglobinOrdered By: Ajay Elam on 07-16-2023 Average glucose Estimated from glycated hemoglobin (Bld) [Mass/Vol] 237 mg/dL [facility] Hemoglobin A1c percentageOrd ered By: Ajay Elam on 07-16-2023 HbA1c (Bld) [Mass fraction] 9.9 % 4.3-5.6 [facility] Comment on above: Increased risk for d iabetes: 5.7 - 6.4diabetes: >6.4glycemic control for adults with diabetes: <7.0 Microalbumin [Mass/volume] i n UrineOrdered By: Ajay Elam on 07-16-2023 Albumin DL <= 20 mg/L (U) [Mass/Vol] mg/dL 0.0-1.8 [facility] No Panel InformationOrdered By: Ajay Elam on 07-16-2023 Estimated GFR (CKD-EPI) > 60.0 mL/Min [facility] Creatinine Clearance (Chem N/A [facility] Potassium [Moles/volume] in Serum or PlasmaOrdered By: Ajay Elam on 07-16-2023 Potassium [Moles/Vol] 4.6 mmol/L 3.5-5.1 [facility] Protein [Mass/volume] in Ser um or PlasmaOrdered By: Ajay Elam on 07-16-2023 Protein [Mass/Vol] 7.0 g/dL 6.4-8.9 [facility] Serum or plasma albumin/glob ulin mass ratioOrdered By: Ajay Elam on 07-16-2023 Albumin/Globulin [Mass ratio] 0.7 {ratio} [facility] Serum or plasma anion gap de terminationOrdered By: Ajay Elam on 07-16-2023 Anion gap [Moles/Vol] 8.2 mmol/L 6.0-15.0 [facility] Serum or plasma high density lipoprotein (HDL) cholesterol measurementOrdered By: Ajay Elam on 07-16-2023 Cholesterol in HDL [Mass/Vol] 45 mg/dL 23-92 [facility] Comment on above: HDL CHOL ATP-III CLA SSIFICATION Cardiovascular RiskHDL > or equal to 60 mg/dL LOWHDL < 40 mg/dL HIGH Serum or plasma total choles terol/high density lipoprotein (HDL) cholesterol mass ratOrdered By: Ajay Elam on 07-16-2023 Cholesterol.total/Cho lesterol in HDL [Mass ratio] 2.6 {ratio} <5.0 [facility] Sodium [Moles/volume] in Ser um or PlasmaOrdered By: Ajay Elam on 07-16-2023 Sodium [Moles/Vol] 133 mmol/L 136-145 [facility] Triglyceride [Mass/volume] i n Serum or PlasmaOrdered By: Ajay Elam on 07-16-2023 Triglyceride [Mass/Vol] 79 mg/dL 0-149 [facility] Comment on above: TRIG ATP III CLASSIF ICATIONTRIG less than 150 mg/dL NormalTRIG 150-199 mg/dL Borderline highTRIG 200-500 mg/dL High TRIG greater than 500 mg/dL Very highStandard traceable to the Center for Disease Conrtrol and Prevention (CDC) test method. Urea nitrogen [Mass/volume] in Serum or PlasmaOrdered By: Ajay Elam on 07-16-2023 Urea nitrogen [Mass/Vol] 11 mg/dL 7- [facility] Urine microalbumin/creatinin e mass ratioOrdered By: Ajay Elam on 07-16-2023 Albumin/Creatinine DL <= 20 mg/L (U) [Mass ratio] TNP [facility] Comment on above: Test not performed Home Health Recordson 2023 Home Health Records [id number]#1.00TIFF Normal [facility] No Panel InformationOrdered By: Ccf Provider on 07-05-2023 Interpretation and review of laboratory results Abnormal [facility] Radiology Result ACTIONABLE Abnormal [facility] Comment on above: This report contains an [...] contact your provider for the next steps. [facility] No Panel Informationon 07-04 IMPRESSION: PATENT [...] be communicated with the ordering provider via [employer] staff message or phone message by [employer] within 2 business days of report finalization. --END OF FINDING-- Information Systems Specialist: PSCAugusto Transcribe Date/Time: Jul 05 2023 1:50P Dictated by : VERONA SANDRA MD This examination was interpreted and the report reviewed and electronically signed by: VERONA SANDRA MD on Jul 05 2023 2:01PM [facility] DIVISION OF RADIOLOGY Radiology Study observation (narrative) [facility] US.doppler Abdominal vessels on 07-05-2023 * * *Final Report* * * DATE OF EXAM: Jul 05 2023 1:15PM [facility] 1233 - US ABD LIVER VASCULAR / [...] vein: 144 cm/s HEPATIC ARTERIES: - Main GIORN: Normal waveform PSV: 86-104 cm/sec. RI: 0.77, 0.78 - Right anterior GIRON: Normal waveform - Right posterior GIRON: Normal waveform - Left GIRON: Normal waveform HEPATIC VEINS: -Left: Patent with triphasic waveform. -Middle: Patent with triphasic waveform. -Right: Patent with triphasic waveform. IVC: Patent with normal, phasic wave form. DIVISION OF RADIOLOGY Provider, [facility] - 07/05/2023 * * *Final Report* * [...] be communicated with the ordering provider via [employer] staff message or phone message by [employer] within 2 business days of report finalization. --END OF FINDING-- Information Systems Specialist: PSCB Transcribe Date/Time: Jul 05 2023 1:50P Dictated by : VERONA SANDRA MD This examination was interpreted and the report reviewed and electronically signed by: VERONA SANDRA MD on Jul 05 2023 2:01PM [facility] US.doppler Unspecified body regionon 07-05-2023 * * [...] phasic wave form. DIVISION OF RADIOLOGY Provider, [facility] - 07/05/2023 * * *Final Report* * [...] be communicated with the ordering provider via [employer] staff message or phone message by [facility] [employer] within 2 business days of report finalization. --END OF FINDING-- Information Systems Specialist: EDDIE Transcribe Date/Time: Jul 05 2023 1:50P Dictated by : VERONA SANDRA MD This examination was interpreted and the report reviewed and electronically signed by: VERONA SANDRA MD on Jul 05 2023 2:01PM [facility] Retail - Clinical Noteon Retail - Clinical Note [id number]#1.00TIFF Normal [facility] ED Note-Physicianon 06-23-19 ED Note-Physician [id number]#1.00TIFF Normal [facility] RAD - MISCon 06-23-2023 RAD - MISC [id number]#1.00TIFF Normal [facility] Home Health Recordson 2023 Home Health Records [id number]#1.00TIFF Normal [facility] Consultation Noteon 06-21-19 Consultation Note [id number]#1.00TIFF Normal [facility] Home Health Recordson 2023 Home Health Records [id number]#1.00TIFF Normal [facility] US ABD LIVER VASCULARon US ABD LIVER [...] No focal hepatic lesions. Small volume ascites. Information Systems Specialist: EDDIE Transcribe Date/Time: Jun 06 2023 2:35P Dictated by : VICKY ARCEO DO This examination was interpreted and the report reviewed and electronically signed by: VICKY ARCEO DO on Jun 06 2023 2:50PM EST [id number] Normal [facility] US DOPPLER COMPLETEon 2023 US DOPPLER [...] No focal hepatic lesions. Small volume ascites. Information Systems Specialist: EDDIE Transcribe Date/Time: Jun 06 2023 2:35P Dictated by : VICKY ARCEO DO This examination was interpreted and the report reviewed and electronically signed by: VICKY ARCEO DO on Jun 06 2023 2:50PM EST [id number] [facility] [place] Case Information Case Priority: None Programs: -- Referral Source: [employer] Referral Reason: Care coordination Case Type: Transition [...] yes Do you have Home Health? yes, [facility] Called patient for initial Transitional Care Management [...] (min): 8 Outcome: Case discussion Contact Type: site coordinator Contact Name: Hayden Sahu Notes: TCM#1- see tcm note. Created By: Hayden Sahu [facility] ED Note-Physicianon 05-25-19 24 ED Note-Physician [id number]#1.00TIFF [facility] Operative Reporton Operative Report [id number]#1.00TIFF [facility] Outside Hospital Correspo ndenceon 05-25-2023 Outside [facility] Correspondence [id number]#1.00TIFF [facility] Absolute reticulocyte countO rdered By: Harsha Wren on 05-24-2023 Reticulocytes (Bld) [#/Vol] 0.036 10*6/uL 0.024-0.08 4 [facility] Activated partial thrombopla stin time (aPTT) in platelet poor plasma by coagulation aOrdered By: Danielle Glass on 05-24-2023 aPTT Coag (PPP) [Time] 46.8 s 25.1-36.5 [facility] Comment on above: A hematocrit value g reater than 55% may lead to inaccurate results in coagulation testing. Patients having hematocrit values >55% require a special collection tube for coagulation studies. Please contact the laboratory at [phone] for redraw instructions. Alanine aminotransferase [En zymatic activity/volume] in Serum or PlasmaOrdered By: Harsha Wren on 05-24-2023 ALT [Catalytic activity/Vol] 13 U/L 7-52 [facility] Albumin [Mass/volume] in Bod y fluidOrdered By: Arnoldo Arguello on 05-24-2023 Albumin (Body fld) [Mass/Vol] < 1.5 g/dL [facility] Comment on above: No reference range e stablished Albumin [Mass/volume] in Ser um or Plasma by Bromocresol green (BCG) dye binding methoOrdered By: Harsha Wren on 05-24-2023 Albumin BCG dye [Mass/Vol] 2.3 g/dL 3.5-5.7 [facility] Alkaline phosphatase [Enzyma tic activity/volume] in Serum or PlasmaOrdered By: Harsha Wren on 05-24-2023 ALP [Catalytic activity/Vol] 129 U/L 34-104 [facility] Anisocytosis LM Ql (Bld)Orde red By: Harsha Wren on 05-24-2023 Anisocytosis Ql (Bld) Slight [facility] Aspartate aminotransferase [ Enzymatic activity/volume] in Serum or PlasmaOrdered By: Harsha Wren on 05-24-2023 AST [Catalytic activity/Vol] 33 U/L 13-39 [facility] Basophils Auto (Bld) [#/Vol] Ordered By: Harsha Wren on 05-24-2023 Basophils (Bld) [#/Vol] N/A [facility] Basophils/100 WBC Auto (Bld) Ordered By: Harsha Wren on 05-24-2023 Basophils/100 WBC (Bld) N/A [facility] Bilirubin.direct [Mass/volum e] in Serum or PlasmaOrdered By: Harsha Wren on 05-24-2023 Bilirubin.direct [Mass/Vol] 0.30 mg/dL 0.03-0.18 [facility] Bilirubin.total [Mass/volume ] in Serum or PlasmaOrdered By: Harsha Wren on 05-24-2023 Bilirubin [Mass/Vol] 1.0 mg/dL 0.3-1.0 [facility] Body fluid differential cell countOrdered By: Arnoldo Arguello on 05-24-2023 Differential panel (Body fld) 78 % [facility] Comment on above: The reference interv al and other method performance specifications have not been established for this body fluid. The test result must be integrated into the clinical context for interpretation. Calcium [Mass/volume] in Ser um or PlasmaOrdered By: Danielle Glass on 05-24-2023 Calcium [Mass/Vol] 7.5 mg/dL 8.6-10.3 [facility] Calcium [Mass/volume] in Ser um or PlasmaOrdered By: Harsha Wren on 05-24-2023 Calcium [Mass/Vol] 7.4 mg/dL 8.6-10.3 [facility] Carbon dioxide, total [Moles /volume] in Serum or PlasmaOrdered By: Danielle Glass on 05-24-2023 CO2 [Moles/Vol] 25.2 mmol/L 21.0-31.0 [facility] Carbon dioxide, total [Moles /volume] in Serum or PlasmaOrdered By: Harsha Wren on 05-24-2023 CO2 [Moles/Vol] 23.0 mmol/L 21.0-31.0 [facility] Cells Counted Total [#] in B betty fluidOrdered By: Arnoldo Arguello on 05-24-2023 Cells Counted Total (Body fld) [#] 32 mm^3 [facility] Comment on above: The reference interv al and other method performance specifications have not been established for this body fluid. The test result must be integrated into the clinical context for interpretation. Chloride [Moles/volume] in S michael or PlasmaOrdered By: Danielle Glass on 05-24-2023 Chloride [Moles/Vol] 105 mmol/L 98-107 [facility] Chloride [Moles/volume] in S michael or PlasmaOrdered By: Harsha Wren on 05-24-2023 Chloride [Moles/Vol] 103 mmol/L 98-107 [facility] Color of Spun Body fluidOrde red By: Arnoldo Arguello on 05-24-2023 Color (Spun body fld) Straw [facility] Comment on above: The reference interv al and other method performance specifications have not been established for this body fluid. The test result must be integrated into the clinical context for interpretation. Creatinine [Mass/volume] in Serum or PlasmaOrdered By: Danielle Glass on 05-24-2023 Creatinine [Mass/Vol] 0.70 mg/dL 0.60-1.20 [facility] Creatinine [Mass/volume] in Serum or PlasmaOrdered By: Harsha Wren on 05-24-2023 Creatinine [Mass/Vol] 0.75 mg/dL 0.60-1.20 [facility] Determination of appearance of body fluidOrdered By: Arnoldo Arguello on 05-24-2023 Appearance (Body fld) Clear [facility] Comment on above: The reference interv al and other method performance specifications have not been established for this body fluid. The test result must be integrated into the clinical context for interpretation. Eosinophils Auto (Bld) [#/Vo l]Ordered By: Harsha Wren on 05-24-2023 Eosinophils (Bld) [#/Vol] N/A [facility] Eosinophils/100 WBC Auto (Bl d)Ordered By: Harsha Wren on 05-24-2023 Eosinophils/100 WBC (Bld) N/A [facility] Erythrocyte distribution wid th Auto (RBC) [Ratio]Ordered By: Danielle Yvonnedarvin on 05-24-2023 Erythrocyte distribution width (RBC) [Ratio] 22.3 % 11.9-15.3 [facility] Erythrocyte distribution wid th Auto (RBC) [Ratio]Ordered By: Harsha Wren on 05-24-2023 Erythrocyte distribution width (RBC) [Ratio] 20.9 % 11.9-15.3 [facility] Evaluation of color of body fluidOrdered By: Arnoldo Arguello on 05-24-2023 Color (Body fld) Straw [facility] Comment on above: The reference interv al and other method performance specifications have not been established for this body fluid. The test result must be integrated into the clinical context for interpretation. Ferritin [Mass/volume] in Se rum or PlasmaOrdered By: Harsha Wren on 05-24-2023 Ferritin [Mass/Vol] 12.7 ng/mL 11.0-306.8 [facility] Globulin Calc (S) [Mass/Vol] Ordered By: Harsha Wren on 05-24-2023 Globulin (S) [Mass/Vol] 3.7 g/dL [facility] Glucose Glucometer (BldC) [M ass/Vol]Ordered By: Arnoldo Arguello on 05-24-2023 Glucose [Mass/Vol] 89 mg/dL [facility] Comment on above: Random Glucose Refer ence Range is dependent on time and content of last meal. Glucose of more than 200 mg/dL in a nonstressed, ambulatory subject supports the diagnosis of Diabetes Mellitus. Glucose [Mass/volume] in Ser um or PlasmaOrdered By: Danielle Glass on 05-24-2023 Glucose [Mass/Vol] 37 mg/dL 70-100 [facility] Comment on above: Delta: 195 on Critical [...] on 05-24-2023 Glucose [Mass/Vol] 195 mg/dL 70-100 [facility] Comment on above: ADA recommended refe rence rangeRandom Glucose Reference Range is dependent on time and content of last meal. Glucose of more than 200 mg/dL in a nonstressed, ambulatory subject supports the diagnosis of Diabetes Mellitus. Gram stain for investigation of transfusion reactionOrdered By: Arnoldo Arguello on 05-24-2023 Microscopic observation Gram stain Nom (Unsp spec) No Anaerobes Isolated 3 Days [facility] Hematocrit Auto (Bld) [Volum e fraction]Ordered By: Danielle Glass on 05-24-2023 Hematocrit (Bld) [Volume fraction] 24.6 % 34.0-46.4 [facility] Hematocrit Auto (Bld) [Volum e fraction]Ordered By: Harsha Wren on 05-24-2023 Hematocrit (Bld) [Volume fraction] 21.5 % 34.0-46.4 [facility] Hemoglobin [Mass/volume] in BloodOrdered By: Danielle Glass on 05-24-2023 Hemoglobin (Bld) [Mass/Vol] 7.9 g/dL 11.8-15.4 [facility] Hemoglobin [Mass/volume] in BloodOrdered By: Harsha Wren on 05-24-2023 Hemoglobin (Bld) [Mass/Vol] 6.7 g/dL 11.8-15.4 [facility] Hypochromia LM Ql (Bld)Order ed By: Harsha Wren on 05-24-2023 Hypochromia Ql (Bld) Moderate [facility] INR in Platelet poor plasma by Coagulation assayOrdered By: Danielle Glass on 05-24-2023 INR Coag (PPP) [Relative time] 1.3 {INR} [facility] Comment on above: INR Therapeutic Rang e [...] on 05-24-2023 Iron [Mass/Vol] 15 ug/dL 50-212 [facility] Iron binding capacity [Mass/ volume] in Serum or PlasmaOrdered By: Harsha Wren on 05-24-2023 Iron binding capacity [Mass/Vol] 381 ug/dL 255-450 [facility] Lactate dehydrogenase [Enzym atic activity/volume] in Body fluid by Lactate to pyruvatOrdered By: Arnoldo Arguello on 05-24-2023 LDH Lactate to pyruvate reaction (Body fld) [Catalytic activity/Vol] 41 [IU]/mL [facility] Comment on above: No reference range e stablished Leukocytes [#/volume] correc lyly for nucleated erythrocytes in Blood by Automated counOrdered By: Danielle Glass on 05-24-2023 WBC corrected for nucl RBC Auto (Bld) [#/Vol] 4.8 10*3/uL 3.8-11.6 [facility] Leukocytes [#/volume] correc lyly for nucleated erythrocytes in Blood by Automated counOrdered By: Harsha Wren on 05-24-2023 WBC corrected for nucl RBC Auto (Bld) [#/Vol] 5.4 10*3/uL 3.8-11.6 [facility] Lipase [Enzymatic activity/v olume] in Serum or PlasmaOrdered By: Harsha Wren on 05-24-2023 Lipase [Catalytic activity/Vol] 32.0 U/L 11.0-82.0 [facility] Lymphocytes Auto (Bld) [#/Vo l]Ordered By: Harsha Wren on 05-24-2023 Lymphocytes (Bld) [#/Vol] N/A [facility] Lymphocytes/100 WBC Auto (Bl d)Ordered By: Harsha Wren on 05-24-2023 Lymphocytes/100 WBC (Bld) N/A [facility] MCH Auto (RBC) [Entitic mass ]Ordered By: Danielle Glass on 05-24-2023 MCH (RBC) [Entitic mass] 22.8 pg 24.7-34.3 [facility] MCH Auto (RBC) [Entitic mass ]Ordered By: Harsha Wren on 05-24-2023 MCH (RBC) [Entitic mass] 21.4 pg 24.7-34.3 [facility] MCHC Auto (RBC) [Mass/Vol]Or dered By: Danielle Glass on 05-24-2023 MCHC (RBC) [Mass/Vol] 32.3 g/dL 32.0-35.0 [facility] MCHC Auto (RBC) [Mass/Vol]Or dered By: Harsha Wren on 05-24-2023 MCHC (RBC) [Mass/Vol] 31.3 g/dL 32.0-35.0 [facility] MCV Auto (RBC) [Entitic vol] Ordered By: Danielle Glass on 05-24-2023 MCV (RBC) [Entitic vol] 70.5 fL 80-100 [facility] MCV Auto (RBC) [Entitic vol] Ordered By: Harsha Wren on 05-24-2023 MCV (RBC) [Entitic vol] 68.6 fL 80-100 [facility] Manual body fluid eosinophil s/100 leukocytesOrdered By: Arnoldo Arguello on 05-24-2023 Eosinophils/100 WBC Manual cnt (Body fld) 0 /100{WBC} 0-3 [facility] Manual body fluid erythrocyt es count (number/volume)Ordered By: Arnoldo Arguello on 05-24-2023 RBC Manual cnt (Body fld) [#/Vol] 115 /uL [facility] Comment on above: The reference interv al and other method performance specifications have not been established for this body fluid. The test result must be integrated into the clinical context for interpretation. Manual body fluid lymphocyte s/100 leukocytesOrdered By: Arnoldo Arguello on 05-24-2023 Lymphocytes/100 WBC Manual cnt (Body fld) 22 % [facility] Comment on above: The reference interv al and other method performance specifications have not been established for this body fluid. The test result must be integrated into the clinical context for interpretation. Microcytes LM Ql (Bld)Ordere d By: Harsha Wren on 05-24-2023 Microcytes Ql (Bld) Slight [facility] Monocyte distribution width [Entitic volume] in Blood by AutomatedOrdered By: Harsha Wren on 05-24-2023 Monocyte distribution width Auto (Bld) [Entitic vol] 17.10 % 0.00-20.00 [facility] Monocytes Auto (Bld) [#/Vol] Ordered By: Harsha Wren on 05-24-2023 Monocytes (Bld) [#/Vol] N/A [facility] Monocytes/100 WBC Auto (Bld) Ordered By: Harsha Wren on 05-24-2023 Monocytes/100 WBC (Bld) N/A [facility] Neutrophils Auto (Bld) [#/Vo l]Ordered By: Harsha Wren on 05-24-2023 Neutrophils (Bld) [#/Vol] N/A [facility] Neutrophils/100 WBC Auto (Bl d)Ordered By: Harsha Wren on 05-24-2023 Neutrophils/100 WBC (Bld) N/A [facility] Neutrophils/100 WBC Manual c nt (Body fld)Ordered By: Arnoldo Arguello on 05-24-2023 Neutrophils/100 WBC (Body fld) 0 % [facility] Comment on above: The reference interv al and other method performance specifications have not been established for this body fluid. The test result must be integrated into the clinical context for interpretation. No Panel InformationOrdered By: Arnoldo Arguello on 05-24-2023 Bedside Glucose Comment See comment [facility] Comment on above: Glu2: Result Not Con firmed No Panel InformationOrdered By: Danielle Glass on 05-24-2023 Estimated GFR (CKD-EPI) > 60.0 mL/Min [facility] Creatinine Clearance (Chem 75.22 [facility] No Panel InformationOrdered By: Harsha Wren on 05-24-2023 Estimated GFR (CKD-EPI) > 60.0 mL/Min [facility] Creatinine Clearance (Chem 70.32 [facility] Nucleated erythrocytes [Pres ence] in Blood by Automated countOrdered By: Harsha Wren on 05-24-2023 Nucleated RBC Auto Ql (Bld) N/A [facility] Platelet adequacy [Presence] in Blood by Light microscopyOrdered By: Harsha Wren on 05-24-2023 Platelets LM Ql (Bld) Decreased Normal [facility] Platelet mean volume Auto (B ld) [Entitic vol]Ordered By: Danielle Glass on 05-24-2023 Platelet mean volume (Bld) [Entitic vol] 9.1 fL 6.3-10.7 [facility] Platelet mean volume Auto (B ld) [Entitic vol]Ordered By: Harsha Wren on 05-24-2023 Platelet mean volume (Bld) [Entitic vol] 9.2 fL 6.3-10.7 [facility] Platelet morphology finding [Identifier] in BloodOrdered By: Harsha Wren on 05-24-2023 Platelet morphology finding Nom (Bld) N/A [facility] Platelets Auto (Bld) [#/Vol] Ordered By: Danielle Glass on 05-24-2023 Platelets (Bld) [#/Vol] 96 10*3/uL 150-450 [facility] Platelets Auto (Bld) [#/Vol] Ordered By: Harsha Wren on 05-24-2023 Platelets (Bld) [#/Vol] 88 10*3/uL 150-450 [facility] Platelets Large [Presence] i n Blood by Light microscopyOrdered By: Harsha Wren on 05-24-2023 Platelets Large LM Ql (Bld) Slight [facility] Polychromasia [Presence] in Blood by Light microscopyOrdered By: Harsha Wren on 05-24-2023 Polychromasia LM Ql (Bld) Moderate [facility] Potassium [Moles/volume] in Serum or PlasmaOrdered By: Danielle Glass on 05-24-2023 Potassium [Moles/Vol] 3.8 mmol/L 3.5-5.1 [facility] Potassium [Moles/volume] in Serum or PlasmaOrdered By: Harsha Wren on 05-24-2023 Potassium [Moles/Vol] 3.9 mmol/L 3.5-5.1 [facility] Protein [Mass/volume] in Bod y fluidOrdered By: Arnoldo Arguello on 05-24-2023 Protein (Body fld) [Mass/Vol] g/dL [facility] Protein [Mass/volume] in Ser um or PlasmaOrdered By: Harsha Wren on 05-24-2023 Protein [Mass/Vol] 6.0 g/dL 6.4-8.9 [facility] Prothrombin time (PT)Ordered By: Danielle Glass on 05-24-2023 PT Coag (PPP) [Time] 15.4 s 9.0-12.9 [facility] Comment on above: A hematocrit value g reater than 55% may lead to inaccurate results in coagulation testing. Patients having hematocrit values >55% require a special collection tube for coagulation studies. Please contact the laboratory at [phone] for redraw instructions. RBC Auto (Bld) [#/Vol]Ordere d By: Danielle Glass on 05-24-2023 RBC (Bld) [#/Vol] 3.48 10*6/uL 3.60-5.00 [facility] RBC Auto (Bld) [#/Vol]Ordere d By: Harsha Wren on 05-24-2023 RBC (Bld) [#/Vol] 3.13 10*6/uL 3.60-5.00 [facility] RBC morphologyOrdered By: Felicity Wren on 05-24-2023 RBC morphology finding Nom (Bld) N/A [facility] Reticulocytes/100 RBC Auto ( Bld)Ordered By: Harsha Wren on 05-24-2023 Reticulocytes/100 RBC (Bld) 1.2 % 0.5-1.5 [facility] Serum or plasma albumin/glob ulin mass ratioOrdered By: Harsha Wren on 05-24-2023 Albumin/Globulin [Mass ratio] 0.6 {ratio} [facility] Serum or plasma anion gap de terminationOrdered By: Danielle Glass on 05-24-2023 Anion gap [Moles/Vol] 6.6 mmol/L 6.0-15.0 [facility] Serum or plasma anion gap de terminationOrdered By: Harsha Wren on 05-24-2023 Anion gap [Moles/Vol] 8.9 mmol/L 6.0-15.0 [facility] Serum or plasma non-glucuron idated bilirubin measurement (mass/volume)Ordered By: Harsha Wren on 05-24-2023 Bilirubin.indirect [Mass/Vol] 0.7 mg/dL [facility] Sodium [Moles/volume] in Ser um or PlasmaOrdered By: Danielle Glass on 05-24-2023 Sodium [Moles/Vol] 133 mmol/L 136-145 [facility] Sodium [Moles/volume] in Ser um or PlasmaOrdered By: Harsha Wren on 05-24-2023 Sodium [Moles/Vol] 131 mmol/L 136-145 [facility] Transferrin [Mass/volume] in Serum or PlasmaOrdered By: Harsha Wren on 05-24-2023 Transferrin [Mass/Vol] 272 mg/dL 203-362 [facility] Urea nitrogen [Mass/volume] in Serum or PlasmaOrdered By: Danielle Glass on 05-24-2023 Urea nitrogen [Mass/Vol] 12 mg/dL 09-22 [facility] Urea nitrogen [Mass/volume] in Serum or PlasmaOrdered By: Harsha Wren on 05-24-2023 Urea nitrogen [Mass/Vol] 13 mg/dL 09-22 [facility] WBC Auto (Bld) [#/Vol]Ordere d By: Harsha Wren on 05-24-2023 WBC (Bld) [#/Vol] 5.4 10*3/uL 3.8-11.6 [facility] Consultation Noteon 04-21-19 Consultation Note [id number] Normal [facility] Glucose mean value [Mass/vol ume] in Blood Estimated from glycated hemoglobinOrdered By: Ajay Elam on 04-13-2023 Average glucose Estimated from glycated hemoglobin (Bld) [Mass/Vol] 252 mg/dL [facility] Hemoglobin A1c percentageOrd ered By: Ajay Elam on 04-13-2023 HbA1c (Bld) [Mass fraction] 10.4 % 4.3-5.6 [facility] Comment on above: Increased risk for d iabetes: 5.7 - 6.4diabetes: >6.4glycemic control for adults with diabetes: <7.0 Alanine aminotransferase [En zymatic activity/volume] in Serum or PlasmaOrdered By: Mickey Lovett on 02-02-2023 ALT [Catalytic activity/Vol] 14 U/L [facility] Albumin [Mass/volume] in Ser um or Plasma by Bromocresol green (BCG) dye binding methoOrdered By: Mickey Lovett on 02-02-2023 Albumin BCG dye [Mass/Vol] 2.5 g/dL 3.5-5.7 [facility] Alkaline phosphatase [Enzyma tic activity/volume] in Serum or PlasmaOrdered By: Mickey Lovett on 02-02-2023 ALP [Catalytic activity/Vol] 193 U/L 34-104 [facility] Aspartate aminotransferase [ Enzymatic activity/volume] in Serum or PlasmaOrdered By: Mickey Lovett on 02-02-2023 AST [Catalytic activity/Vol] 26 U/L 13-39 [facility] Bilirubin.total [Mass/volume ] in Serum or PlasmaOrdered By: Mickey Lovett on 02-02-2023 Bilirubin [Mass/Vol] 1.2 mg/dL 0.3-1.0 [facility] Calcium [Mass/volume] in Ser um or PlasmaOrdered By: Mickey Lovett on 02-02-2023 Calcium [Mass/Vol] 7.8 mg/dL 8.6-10.3 [facility] Carbon dioxide, total [Moles /volume] in Serum or PlasmaOrdered By: Mickey Lovett on 02-02-2023 CO2 [Moles/Vol] 27.0 mmol/L 21.0-31.0 [facility] Chloride [Moles/volume] in S michael or PlasmaOrdered By: Mickey Lovett on 02-02-2023 Chloride [Moles/Vol] 102 mmol/L 98-107 [facility] Creatinine [Mass/volume] in Serum or PlasmaOrdered By: Mickey Lovett on 02-02-2023 Creatinine [Mass/Vol] 0.60 mg/dL 0.60-1.20 [facility] Globulin Calc (S) [Mass/Vol] Ordered By: Mickey Lovett on 02-02-2023 Globulin (S) [Mass/Vol] 3.7 g/dL [facility] Glucose Glucometer (BldC) [M ass/Vol]Ordered By: Nimesh Chin on 02-02-2023 Glucose [Mass/Vol] 131 mg/dL [facility] Comment on above: Random Glucose Refer ence Range is dependent on time and content of last meal. Glucose of more than 200 mg/dL in a nonstressed, ambulatory subject supports the diagnosis of Diabetes Mellitus. Glucose [Mass/volume] in Ser um or PlasmaOrdered By: Mickey Lovett on 02-02-2023 Glucose [Mass/Vol] 124 mg/dL 70-100 [facility] Comment on above: ADA recommended refe rence rangeRandom Glucose Reference Range is dependent on time and content of last meal. Glucose of more than 200 mg/dL in a nonstressed, ambulatory subject supports the diagnosis of Diabetes Mellitus. Magnesium [Mass/volume] in S michael or PlasmaOrdered By: Mickey Lovett on 02-02-2023 Magnesium [Mass/Vol] 1.7 mg/dL 1.9-2.7 [facility] No Panel InformationOrdered By: Nimesh Chin on 02-02-2023 Bedside Glucose Comment Glu2: cleaned meter [facility] No Panel InformationOrdered By: Mickey Lovett on 02-02-2023 Estimated GFR (CKD-EPI) > 60.0 mL/Min [facility] Creatinine Clearance (Chem 90.73 [facility] Phosphate [Mass/volume] in S michael or PlasmaOrdered By: Mickey Lovett on 02-02-2023 Phosphate [Mass/Vol] 2.9 mg/dL 2.5-4.5 [facility] Potassium [Moles/volume] in Serum or PlasmaOrdered By: Mickey Lovett on 02-02-2023 Potassium [Moles/Vol] 3.9 mmol/L 3.5-5.1 [facility] Protein [Mass/volume] in Ser um or PlasmaOrdered By: Mickey Lovett on 02-02-2023 Protein [Mass/Vol] 6.2 g/dL 6.4-8.9 [facility] Serum or plasma albumin/glob ulin mass ratioOrdered By: Mickey Lovett on 02-02-2023 Albumin/Globulin [Mass ratio] 0.7 {ratio} [facility] Serum or plasma anion gap de terminationOrdered By: Mickey Lovett on 02-02-2023 Anion gap [Moles/Vol] 6.9 mmol/L 6.0-15.0 [facility] Sodium [Moles/volume] in Ser um or PlasmaOrdered By: Mickey Lovett on 02-02-2023 Sodium [Moles/Vol] 132 mmol/L 136-145 [facility] Urea nitrogen [Mass/volume] in Serum or PlasmaOrdered By: Mickey Lovett on 02-02-2023 Urea nitrogen [Mass/Vol] 9 mg/dL 7-25 [facility] Vitamin D+Metabolites [Mass/ volume] in Serum or PlasmaOrdered By: Mickey Lovett on 02-02-2023 Vitamin D+Metabolites [Mass/Vol] 31.1 ng/mL 30-100 [facility] Comment on above: VITAMIN D STATUS 25( [place])VITAMIN D RANGE (ng/mL) Deficient <20 Insufficient 20 to <30Sufficient 30 to 100Reference: Mynor MF,Benson FORDE, Bola GIRON, et al. Evaluation,treatment, and prevention of vitamin D deficiency; an Endocrine Society clinical practice guideline. JCEM. 2010; 96(7):1911-30. A1C HEMOGLOBINon 11-11-2022 HbA1c (Bld) [Mass fraction] 11.6 % [facility] [employer] Other Glucose - FINGER STICKon Glucose [Mass/Vol] 139 mg/dL [facility] [employer] Other HbA1c (Bld) [Mass fraction]o n 11-11-2022 A1C HEMOGLOBIN [facility] [employer] Other Glucose Glucometer (BldC) [M ass/Vol]Ordered By: Nimesh Chin on 10-27-2022 Glucose [Mass/Vol] 118 mg/dL [facility] Comment on above: Random Glucose Refer ence Range is dependent on time and content of last meal. Glucose of more than 200 mg/dL in a nonstressed, ambulatory subject supports the diagnosis of Diabetes Mellitus. No Panel InformationOrdered By: Nimesh Chin on 10-27-2022 Bedside Glucose Comment Glu2: cleaned meter [facility] Activated partial thrombopla stin time (aPTT) in platelet poor plasma by coagulation aOrdered By: Nimesh Chin on 10-08-2022 aPTT Coag (PPP) [Time] 45.7 s 25.1-36.5 [facility] Alanine aminotransferase [En zymatic activity/volume] in Serum or PlasmaOrdered By: Nimesh Chin on 10-08-2022 ALT [Catalytic activity/Vol] 28 U/L 7-52 [facility] Albumin [Mass/volume] in Ser um or Plasma by Bromocresol green (BCG) dye binding methoOrdered By: Nimesh Chin on 10-08-2022 Albumin BCG dye [Mass/Vol] 2.8 g/dL 3.5-5.7 [facility] Alkaline phosphatase [Enzyma tic activity/volume] in Serum or PlasmaOrdered By: Nimesh Chin on 10-08-2022 ALP [Catalytic activity/Vol] 196 U/L 34-104 [facility] Anisocytosis LM Ql (Bld)Orde red By: Nimesh Chin on 10-08-2022 Anisocytosis Ql (Bld) Slight [facility] Aspartate aminotransferase [ Enzymatic activity/volume] in Serum or PlasmaOrdered By: Nimesh Chin on 10-08-2022 AST [Catalytic activity/Vol] 52 U/L 13-39 [facility] Basophils Auto (Bld) [#/Vol] Ordered By: Nimesh Chin on 10-08-2022 Basophils (Bld) [#/Vol] 0.1 10*3/uL 0.0-0.2 [facility] Basophils/100 WBC Auto (Bld) Ordered By: Nimesh Chin on 10-08-2022 Basophils/100 WBC (Bld) 1.1 % . [facility] Bilirubin.total [Mass/volume ] in Serum or PlasmaOrdered By: Nimesh Chin on 10-08-2022 Bilirubin [Mass/Vol] 1.1 mg/dL 0.3-1.0 [facility] Calcium [Mass/volume] in Ser um or PlasmaOrdered By: Nimesh Chin on 10-08-2022 Calcium [Mass/Vol] 8.2 mg/dL 8.6-10.3 [facility] Carbon dioxide, total [Moles /volume] in Serum or PlasmaOrdered By: Nimesh Chin on 10-08-2022 CO2 [Moles/Vol] 26.5 mmol/L 21.0-31.0 [facility] Chloride [Moles/volume] in S michael or PlasmaOrdered By: Nimesh Chin on 10-08-2022 Chloride [Moles/Vol] 101 mmol/L 98-107 [facility] Creatinine [Mass/volume] in Serum or PlasmaOrdered By: Nimesh Chin on 10-08-2022 Creatinine [Mass/Vol] 0.69 mg/dL 0.60-1.20 [facility] Eosinophils Auto (Bld) [#/Vo l]Ordered By: Nimesh Chin on 10-08-2022 Eosinophils (Bld) [#/Vol] 0.1 10*3/uL 0.0-0.45 [facility] Eosinophils/100 WBC Auto (Bl d)Ordered By: Nimesh Chin on 10-08-2022 Eosinophils/100 WBC (Bld) 1.6 % . [facility] Erythrocyte distribution wid th Auto (RBC) [Ratio]Ordered By: Nimesh Chin on 10-08-2022 Erythrocyte distribution width (RBC) [Ratio] 16.8 % 11.9-15.3 [facility] Globulin Calc (S) [Mass/Vol] Ordered By: Nimesh Chin on 10-08-2022 Globulin (S) [Mass/Vol] 3.8 g/dL [facility] Glucose [Mass/volume] in Ser um or PlasmaOrdered By: Nimesh Chin on 10-08-2022 Glucose [Mass/Vol] 158 mg/dL 70-100 [facility] Comment on above: ADA recommended refe rence rangeRandom Glucose Reference Range is dependent on time and content of last meal. Glucose of more than 200 mg/dL in a nonstressed, ambulatory subject supports the diagnosis of Diabetes Mellitus. Hematocrit Auto (Bld) [Volum e fraction]Ordered By: Nimesh Chin on 10-08-2022 Hematocrit (Bld) [Volume fraction] 40.5 % 34.0-46.4 [facility] Hemoglobin [Mass/volume] in BloodOrdered By: Nimesh Chin on 10-08-2022 Hemoglobin (Bld) [Mass/Vol] 13.4 g/dL 11.8-15.4 [facility] Leukocytes [#/volume] correc lyly for nucleated erythrocytes in Blood by Automated counOrdered By: Nimesh Chin on 10-08-2022 WBC corrected for nucl RBC Auto (Bld) [#/Vol] 4.7 10*3/uL 3.8-11.6 [facility] Lymphocytes Auto (Bld) [#/Vo l]Ordered By: Nimesh Chin on 10-08-2022 Lymphocytes (Bld) [#/Vol] 0.7 10*3/uL 1.00-4.8 [facility] Lymphocytes/100 WBC Auto (Bl d)Ordered By: Nimesh Chin on 10-08-2022 Lymphocytes/100 WBC (Bld) 14.5 % . [facility] MCH Auto (RBC) [Entitic mass ]Ordered By: Nimesh Chin on 10-08-2022 MCH (RBC) [Entitic mass] 29.9 pg 24.7-34.3 [facility] MCHC Auto (RBC) [Mass/Vol]Or dered By: Nimesh Chin on 10-08-2022 MCHC (RBC) [Mass/Vol] 33.1 g/dL 32.0-35.0 [facility] MCV Auto (RBC) [Entitic vol] Ordered By: Nimesh Chin on 10-08-2022 MCV (RBC) [Entitic vol] 90.4 fL 80-100 [facility] Monocytes Auto (Bld) [#/Vol] Ordered By: Nimesh Chin on 10-08-2022 Monocytes (Bld) [#/Vol] 0.5 10*3/uL 0.0-0.8 [facility] Monocytes/100 WBC Auto (Bld) Ordered By: Nimesh Chin on 10-08-2022 Monocytes/100 WBC (Bld) 10.9 % . [facility] Neutrophils Auto (Bld) [#/Vo l]Ordered By: Nimesh Chin on 10-08-2022 Neutrophils (Bld) [#/Vol] 3.4 10*3/uL 1.8-7.7 [facility] Neutrophils/100 WBC Auto (Bl d)Ordered By: Nimesh Chin on 10-08-2022 Neutrophils/100 WBC (Bld) 71.9 % . [facility] No Panel InformationOrdered By: Nimesh Chin on 10-08-2022 Estimated GFR (CKD-EPI) > 60.0 mL/Min [facility] Creatinine Clearance (Chem N/A [facility] Nucleated erythrocytes [Pres ence] in Blood by Automated countOrdered By: Nimesh Chin on 10-08-2022 Nucleated RBC Auto Ql (Bld) 0.2 /100{WBC} 0-0.5 [facility] Platelet adequacy [Presence] in Blood by Light microscopyOrdered By: Nimesh Chin on 10-08-2022 Platelets LM Ql (Bld) Decreased Normal [facility] Platelet mean volume Auto (B ld) [Entitic vol]Ordered By: Nimesh Chin on 10-08-2022 Platelet mean volume (Bld) [Entitic vol] 10.5 fL 6.3-10.7 [facility] Platelet morphology finding [Identifier] in BloodOrdered By: Nimesh Chin on 10-08-2022 Platelet morphology finding Nom (Bld) N/A [facility] Platelets Auto (Bld) [#/Vol] Ordered By: Nimesh Chin on 10-08-2022 Platelets (Bld) [#/Vol] 63 10*3/uL 150-450 [facility] Potassium [Moles/volume] in Serum or PlasmaOrdered By: Nimesh Chin on 10-08-2022 Potassium [Moles/Vol] 4.1 mmol/L 3.5-5.1 [facility] Protein [Mass/volume] in Ser um or PlasmaOrdered By: Nimesh Chin on 10-08-2022 Protein [Mass/Vol] 6.6 g/dL 6.4-8.9 [facility] RBC Auto (Bld) [#/Vol]Ordere d By: Nimesh Chin on 10-08-2022 RBC (Bld) [#/Vol] 4.48 10*6/uL 3.60-5.00 [facility] RBC morphologyOrdered By: Yolanda Chin on 10-08-2022 RBC morphology finding Nom (Bld) N/A [facility] Serum or plasma albumin/glob ulin mass ratioOrdered By: Nimesh Chin on 10-08-2022 Albumin/Globulin [Mass ratio] 0.7 {ratio} [facility] Serum or plasma [id number] protein tumor marker measurement (mass/volume)Ordered By: Nimesh Chin on 10-08-2022 AFP.tumor marker [Mass/Vol] ng/mL 0.0-9.2 [facility] Comment on above: [employer] El ectrochemiluminescence Immunoassay(ECLIA)Values obtained with different assay methods or kits cannotbe used interchangeably. Results cannot be interpreted asabsolute evidence of the presence or absence of malignantdisease.This test is not interpretable in females.Performed at: [employer] [facility] [employer] [id number] Director: Bret Montgomery PhD, Phone: [phone] Serum or plasma anion gap de terminationOrdered By: Nimesh Chin on 10-08-2022 Anion gap [Moles/Vol] 9.6 mmol/L 6.0-15.0 [facility] Sodium [Moles/volume] in Ser um or PlasmaOrdered By: Nimesh Chin on 10-08-2022 Sodium [Moles/Vol] 133 mmol/L 136-145 [facility] Urea nitrogen [Mass/volume] in Serum or PlasmaOrdered By: Nimesh Chin on 10-08-2022 Urea nitrogen [Mass/Vol] 13 mg/dL 7-25 [facility] WBC Auto (Bld) [#/Vol]Ordere d By: Nimesh Chin on 10-08-2022 WBC (Bld) [#/Vol] 4.7 10*3/uL 3.8-11.6 [facility] A1C HEMOGLOBINon 08-03-2022 HbA1c (Bld) [Mass fraction] 13.2 % [employer] Other Glucose - FINGER [employer] Glucose [Mass/Vol] 202 mg/dL [employer] Other HbA1c (Bld) [Mass fraction]o n 08-03-2022 A1C HEMOGLOBIN [employer] Other Alanine aminotransferase [En zymatic activity/volume] in Serum or PlasmaOrdered By: Mickey Lovett on 07-01-2022 ALT [Catalytic activity/Vol] 35 U/L 7-52 [facility] Albumin [Mass/volume] in Ser um or Plasma by Bromocresol green (BCG) dye binding methoOrdered By: Mickey Lovett on 07-01-2022 Albumin BCG dye [Mass/Vol] 3.0 g/dL 3.5-5.7 [facility] Alkaline phosphatase [Enzyma tic activity/volume] in Serum or PlasmaOrdered By: Mickey Lovett on 07-01-2022 ALP [Catalytic activity/Vol] 231 U/L 34-104 [facility] Aspartate aminotransferase [ Enzymatic activity/volume] in Serum or PlasmaOrdered By: Mickey Lovett on 07-01-2022 AST [Catalytic activity/Vol] 53 U/L 13-39 [facility] Bilirubin.total [Mass/volume ] in Serum or PlasmaOrdered By: Mickey Lovett on 07-01-2022 Bilirubin [Mass/Vol] 1.0 mg/dL 0.3-1.0 [facility] Calcium [Mass/volume] in Ser um or PlasmaOrdered By: Mickey Lovett on 07-01-2022 Calcium [Mass/Vol] 8.1 mg/dL 8.6-10.3 [facility] Carbon dioxide, total [Moles /volume] in Serum or PlasmaOrdered By: Mickey Lovett on 07-01-2022 CO2 [Moles/Vol] 26.9 mmol/L 21.0-31.0 [facility] Chloride [Moles/volume] in S michael or PlasmaOrdered By: Mickey Lovett on 07-01-2022 Chloride [Moles/Vol] 99 mmol/L 98-107 [facility] Creatinine [Mass/volume] in Serum or PlasmaOrdered By: Mickey Lovett on 07-01-2022 Creatinine [Mass/Vol] 0.76 mg/dL 0.60-1.20 [facility] Globulin Calc (S) [Mass/Vol] Ordered By: Mickey Lovett on 07-01-2022 Globulin (S) [Mass/Vol] 4.1 g/dL [facility] Glucose Glucometer (BldC) [M ass/Vol]Ordered By: Nimesh Chin on 07-01-2022 Glucose [Mass/Vol] 126 mg/dL [facility] Comment on above: Random Glucose Refer ence Range is dependent on time and content of last meal. Glucose of more than 200 mg/dL in a nonstressed, ambulatory subject supports the diagnosis of Diabetes Mellitus. Glucose [Mass/volume] in Ser um or PlasmaOrdered By: Mickey Lovett on 07-01-2022 Glucose [Mass/Vol] 136 mg/dL 70-100 [facility] Comment on above: ADA recommended refe rence rangeRandom Glucose Reference Range is dependent on time and content of last meal. Glucose of more than 200 mg/dL in a nonstressed, ambulatory subject supports the diagnosis of Diabetes Mellitus. Magnesium [Mass/volume] in S michael or PlasmaOrdered By: Mickey Lovett on 07-01-2022 Magnesium [Mass/Vol] 1.8 mg/dL 1.9-2.7 [facility] No Panel InformationOrdered By: Nimesh Chin on 07-01-2022 Bedside Glucose Comment Glu2: cleaned meter [facility] No Panel InformationOrdered By: Mickey Lovett on 07-01-2022 Estimated GFR (CKD-EPI) > 60.0 mL/Min [facility]acy Creatinine Clearance (Chem 70.95 [facility] Phosphate [Mass/volume] in S michael or PlasmaOrdered By: Mickey Lovett on 07-01-2022 Phosphate [Mass/Vol] 3.4 mg/dL 3.7-7.2 [facility] Potassium [Moles/volume] in Serum or PlasmaOrdered By: Mickey Lovett on 07-01-2022 Potassium [Moles/Vol] 4.2 mmol/L 3.5-5.1 [facility] Protein [Mass/volume] in Ser um or PlasmaOrdered By: Mickey Lovett on 07-01-2022 Protein [Mass/Vol] 7.1 g/dL 6.4-8.9 [facility] Serum or plasma albumin/glob ulin mass ratioOrdered By: Mickey Lovett on 07-01-2022 Albumin/Globulin [Mass ratio] 0.7 {ratio} [facility] Serum or plasma anion gap de terminationOrdered By: Mickey Lovett on 07-01-2022 Anion gap [Moles/Vol] 10.3 mmol/L 6.0-15.0 [facility] Sodium [Moles/volume] in Ser um or PlasmaOrdered By: Mickey Lovett on 07-01-2022 Sodium [Moles/Vol] 132 mmol/L 136-145 [facility] Urea nitrogen [Mass/volume] in Serum or PlasmaOrdered By: Mickey Lovett on 07-01-2022 Urea nitrogen [Mass/Vol] 20 mg/dL 7-25 [facility] A1C HEMOGLOBINon 04-20-2022 HbA1c (Bld) [Mass fraction] 11.9 % [employer] Other Basophils Auto (Bld) [#/Vol] Ordered By: Nimesh Chin on 04-20-2022 Basophils (Bld) [#/Vol] 0.1 10*3/uL 0.0-0.2 [facility] Basophils/100 WBC Auto (Bld) Ordered By: Nimesh Chin on 04-20-2022 Basophils/100 WBC (Bld) 0.8 % . [facility] Body fluid albumin measureme nt (mass/volume)Ordered By: Nimesh Chin on 04-20-2022 Albumin (Body fld) [Mass/Vol] 2.8 g/dL 3.2-5.5 [facility] Creatinine and Glomerular fi ltration rate.predicted panel (S/P/Bld)Ordered By: Nimesh Chin on 04-20-2022 Creatinine [Mass/Vol] 0.76 mg/dL 0.44-1.03 [facility] Eosinophils Auto (Bld) [#/Vo l]Ordered By: Nimesh Chin on 04-20-2022 Eosinophils (Bld) [#/Vol] 0.1 10*3/uL 0.0-0.45 [facility] Eosinophils/100 WBC Auto (Bl d)Ordered By: Nimesh Chin on 04-20-2022 Eosinophils/100 WBC (Bld) 1.0 % . [facility] Erythrocyte distribution wid th Auto (RBC) [Ratio]Ordered By: Nimesh Chin on 04-20-2022 Erythrocyte distribution width (RBC) [Ratio] 13.6 % 11.9-15.3 [facility] Estimated glomerular filtrat ion rate (GFR) non- AmericanOrdered By: Nimesh Chin on 04-20-2022 GFR/1.73 sq M.predicted among non-blacks MDRD (S/P/Bld) [Vol rate/Area] > 60 mL/Min [facility] Globulin Calc (S) [Mass/Vol] Ordered By: Nimesh Chin on 04-20-2022 Globulin (S) [Mass/Vol] 4.3 g/dL [facility] Glucose - FINGER STICKon Glucose [Mass/Vol] 239 mg/dL [employer] Other HbA1c (Bld) [Mass fraction]o n 04-20-2022 A1C HEMOGLOBIN [employer] Other Hematocrit Auto (Bld) [Volum e fraction]Ordered By: Nimesh Chin on 04-20-2022 Hematocrit (Bld) [Volume fraction] 42.1 % 34.0-46.4 [facility] Hemoglobin [Mass/volume] in BloodOrdered By: Nimesh Chin on 04-20-2022 Hemoglobin (Bld) [Mass/Vol] 14.0 g/dL 11.8-15.4 [facility] Laboratory - CoagulationOrde red By: Nimesh Chin on 04-20-2022 PT Coag (PPP) [Time] 13.5 s 9.0-12.9 [facility] Leukocytes [#/volume] correc lyly for nucleated erythrocytes in Blood by Automated counOrdered By: Nimesh Chin on 04-20-2022 WBC corrected for nucl RBC Auto (Bld) [#/Vol] 6.6 10*3/uL 3.8-11.6 [facility] Lymphocytes Auto (Bld) [#/Vo l]Ordered By: Nimesh Chin on 04-20-2022 Lymphocytes (Bld) [#/Vol] 0.9 10*3/uL 1.00-4.8 [facility] Lymphocytes/100 WBC Auto (Bl d)Ordered By: Nimesh Chin on 04-20-2022 Lymphocytes/100 WBC (Bld) 13.0 % . [facility] MCH Auto (RBC) [Entitic mass ]Ordered By: Nimesh Chin on 04-20-2022 MCH (RBC) [Entitic mass] 31.4 pg 24.7-34.3 [facility] MCHC Auto (RBC) [Mass/Vol]Or dered By: Nimesh Chin on 04-20-2022 MCHC (RBC) [Mass/Vol] 33.3 g/dL 32.0-35.0 [facility] MCV Auto (RBC) [Entitic vol] Ordered By: Nimesh Chin on 04-20-2022 MCV (RBC) [Entitic vol] 94.4 fL 80-100 [facility] Monocytes Auto (Bld) [#/Vol] Ordered By: Nimesh Chin on 04-20-2022 Monocytes (Bld) [#/Vol] 0.5 10*3/uL 0.0-0.8 [facility] Monocytes/100 WBC Auto (Bld) Ordered By: Nimesh Chin on 04-20-2022 Monocytes/100 WBC (Bld) 7.4 % . [facility] Neutrophils Auto (Bld) [#/Vo l]Ordered By: Nimesh Chin on 04-20-2022 Neutrophils (Bld) [#/Vol] 5.1 10*3/uL 1.8-7.7 [facility] Neutrophils/100 WBC Auto (Bl d)Ordered By: Nimesh Chin on 04-20-2022 Neutrophils/100 WBC (Bld) 77.8 % . [facility] No Panel InformationOrdered By: Nimesh Chin on 04-20-2022 Estimated GFR () > 60 mL/Min [facility] Comment on above: GFR estimated refere nce range: According to KDOQI guidelines, <60 ml/min/1.73m2 is sufficient to diagnose a patient with chronic kidney disease. Pharmacy Creatinine Clearance (Chem N/A [facility] Nucleated erythrocytes [Pres ence] in Blood by Automated countOrdered By: Nimesh Chin on 04-20-2022 Nucleated RBC Auto Ql (Bld) 0.3 /100{WBC} 0-0.5 [facility] Platelet adequacy [Presence] in Blood by Light microscopyOrdered By: Nimesh Chin on 04-20-2022 Platelets LM Ql (Bld) Decreased Normal [facility] Platelet mean volume Auto (B ld) [Entitic vol]Ordered By: Nimesh Chin on 04-20-2022 Platelet mean volume (Bld) [Entitic vol] 11.4 fL 6.3-10.7 [facility] Platelet morphology finding [Identifier] in BloodOrdered By: Nimesh Chin on 04-20-2022 Platelet morphology finding Nom (Bld) N/A [facility] Platelet poor plasma interna tional normalized ratio (INR) by coagulation assay (relatOrdered By: Nimesh Chin on 04-20-2022 INR Coag (PPP) [Relative time] 1.2 {INR} [facility] Comment on above: INR Therapeutic Rang e [...] 04-20-2022 Platelets (Bld) [#/Vol] 80 10*3/uL 150-450 [facility] Protein [Mass/volume] in Ser um or PlasmaOrdered By: Nimesh Chin on 04-20-2022 Protein [Mass/Vol] 7.1 g/dL 6.1-7.9 [facility] RBC Auto (Bld) [#/Vol]Ordere d By: Nimesh Chin on 04-20-2022 RBC (Bld) [#/Vol] 4.46 10*6/uL 3.60-5.00 [facility] RBC morphologyOrdered By: Yolanda Chin on 04-20-2022 RBC morphology finding Nom (Bld) Normal Normal [facility] Serum or plasma alanine grajeda otransferase measurement without P-5'-P (enzymatic activiOrdered By: Nimesh Chin on 04-20-2022 ALT No additional P-5'-P [Catalytic activity/Vol] 26 U/L 10-60 [facility] Serum or plasma albumin/glob ulin mass ratioOrdered By: Nimesh Chin on 04-20-2022 Albumin/Globulin [Mass ratio] 0.7 {ratio} [facility] Serum or plasma alkaline jordan sphatase measurement (enzymatic activity/volume)Ordered By: Nimesh Chin on 04-20-2022 ALP [Catalytic activity/Vol] 211 U/L 32-92 [facility] Serum or plasma [id number] protein tumor marker measurement (mass/volume)Ordered By: Nimesh Chin on 04-20-2022 AFP.tumor marker [Mass/Vol] 2.0 ng/mL 0.0-9.2 [facility] Comment on above: [employer] El ectrochemiluminescence Immunoassay(ECLIA)Values obtained with different assay methods or kits cannotbe used interchangeably. Results cannot be interpreted asabsolute evidence of the presence or absence of malignantdisease.This test is not interpretable in females.Performed at: [facility] [id number] Director: Bret Montgomery PhD, Phone: [phone] Serum or plasma anion gap de terminationOrdered By: Nimesh Chin on 04-20-2022 Anion gap [Moles/Vol] 11.9 mmol/L 6.0-15.0 [facility] Serum or plasma aspartate am inotransferase measurement (enzymatic activity/volume)Ordered By: Nimesh Chin on 04-20-2022 AST [Catalytic activity/Vol] 49 U/L 10-42 [facility] Serum or plasma calcium elis urement (mass/volume)Ordered By: Nimesh Chin on 04-20-2022 Calcium [Mass/Vol] 8.7 mg/dL 8.2-10.2 [facility] Serum or plasma chloride neo surement (moles/volume)Ordered By: Nimesh Chin on 04-20-2022 Chloride [Moles/Vol] 94 mmol/L 95-114 [facility] Serum or plasma glucose elis urement (mass/volume)Ordered By: Nimesh Chin on 04-20-2022 Glucose [Mass/Vol] 217 mg/dL 70-100 [facility] Comment on above: ADA recommended refe rence rangeRandom Glucose Reference Range is dependent on time and content of last meal. Glucose of more than 200 mg/dL in a nonstressed, ambulatory subject supports the diagnosis of Diabetes Mellitus. Serum or plasma potassium me asurement (moles/volume)Ordered By: Nimesh Chin on 04-20-2022 Potassium [Moles/Vol] 4.8 mmol/L 3.5-5.1 [facility] Serum or plasma sodium measu rement (moles/volume)Ordered By: Nimesh Chin on 04-20-2022 Sodium [Moles/Vol] 128 mmol/L 136-146 [facility] Serum or plasma total biliru bin measurement (mass/volume)Ordered By: Nimesh Chin on 04-20-2022 Bilirubin [Mass/Vol] 1.4 mg/dL 0.3-1.2 [facility] Comment on above: Samples from patient s who have taken Naproxen have shown spurious elevation in Total Bilirubin levels. A metabolite of Naproxen, O-desmethylnaproxen, has been shown to interfere with the Handy-Danny method for measuring Total Bilirubin. Serum or plasma total carbon dioxide measurement (moles/volume)Ordered By: Nimesh Chin on 04-20-2022 CO2 [Moles/Vol] 26.9 mmol/L 22.0-30.0 [facility] Serum or plasma urea nitroge n measurement (mass/volume)Ordered By: Nimesh Chin on 04-20-2022 Urea nitrogen [Mass/Vol] 15 mg/dL 9-23 [facility] WBC Auto (Bld) [#/Vol]Ordere d By: Nimesh Chin on 04-20-2022 WBC (Bld) [#/Vol] 6.6 10*3/uL 3.8-11.6 [facility] Albumin [Mass/volume] in Ser um or PlasmaOrdered By: Ajay Elam on 02-25-2022 Albumin [Mass/Vol] 3.1 g/dL 3.2-5.5 [facility] Basophils Auto (Bld) [#/Vol] Ordered By: Laurent Clark on 02-25-2022 Basophils (Bld) [#/Vol] 0.0 10*3/uL 0.0-0.2 [facility] Basophils/100 WBC Auto (Bld) Ordered By: Laurent Clark on 02-25-2022 Basophils/100 WBC (Bld) 0.7 % . [facility] Cholesterol [Mass/volume] in Serum or PlasmaOrdered By: Ajay Elam on 02-25-2022 Cholesterol [Mass/Vol] 130 mg/dL 140-200 [facility] Comment on above: Chol less than 200 m g/dl low riskChol 201-239 mg/dl borderline riskChol 240 mg/dl and greater high risk Cholesterol in LDL Calc [Mas s/Vol]Ordered By: Ajay Elam on 02-25-2022 Cholesterol in LDL [Mass/Vol] 59 mg/dL 0-100 [facility] Comment on above: LDL ATP III CLASSIFI CATIONLDL less than 100 mg/dL OptimalLDL 100-129 mg/dL Near or above optimalLDL 130-159 mg/dL Borderline highLDL 160-189 mg/dL HighLDL greater than 189 mg/dL Very high Cholesterol in VLDL Calc [Ma ss/Vol]Ordered By: Ajay Elam on 02-25-2022 Cholesterol in VLDL [Mass/Vol] 16 mg/dL [facility] Creatinine [Mass/volume] in UrineOrdered By: Ajay Elam on 02-25-2022 Creatinine (U) [Mass/Vol] 107.5 mg/dL [facility] Comment on above: No reference range e stablished Creatinine and Glomerular fi ltration rate.predicted panel (S/P/Bld)Ordered By: Ajay Elam on 02-25-2022 Creatinine [Mass/Vol] 0.76 mg/dL 0.44-1.03 [facility] Eosinophils Auto (Bld) [#/Vo l]Ordered By: Laurent Clark on 02-25-2022 Eosinophils (Bld) [#/Vol] 0.1 10*3/uL 0.0-0.45 [facility] Eosinophils/100 WBC Auto (Bl d)Ordered By: Laurent Clark on 02-25-2022 Eosinophils/100 WBC (Bld) 1.9 % . [facility] Erythrocyte distribution wid th Auto (RBC) [Ratio]Ordered By: Laurent Clark on 02-25-2022 Erythrocyte distribution width (RBC) [Ratio] 13.1 % 11.9-15.3 [facility] Estimated glomerular filtrat ion rate (GFR) non- AmericanOrdered By: Ajay Elam on 02-25-2022 GFR/1.73 sq M.predicted among non-blacks MDRD (S/P/Bld) [Vol rate/Area] > 60 mL/Min [facility] Globulin Calc (S) [Mass/Vol] Ordered By: Ajay Elam on 02-25-2022 Globulin (S) [Mass/Vol] 4.6 g/dL [facility] Hematocrit Auto (Bld) [Volum e fraction]Ordered By: Laurent Clark on 02-25-2022 Hematocrit (Bld) [Volume fraction] 46.1 % 34.0-46.4 [facility] Hemoglobin [Mass/volume] in BloodOrdered By: Laurent Clark on 02-25-2022 Hemoglobin (Bld) [Mass/Vol] 15.7 g/dL 11.8-15.4 [facility] Laboratory - Chemistry and C hemistry - challengeOrdered By: Mickey Lovett on 02-25-2022 Magnesium [Mass/Vol] 1.8 mg/dL 1.6-2.6 [facility] Laboratory - CoagulationOrde red By: Laurent Clark on 02-25-2022 PT Coag (PPP) [Time] 13.0 s 9.0-12.9 [facility] Leukocytes [#/volume] correc lyly for nucleated erythrocytes in Blood by Automated counOrdered By: Laurent Clark on 02-25-2022 WBC corrected for nucl RBC Auto (Bld) [#/Vol] 5.6 10*3/uL 3.8-11.6 [facility] Lymphocytes Auto (Bld) [#/Vo l]Ordered By: Laurent Clark on 02-25-2022 Lymphocytes (Bld) [#/Vol] 0.7 10*3/uL 1.00-4.8 [facility] Lymphocytes/100 WBC Auto (Bl d)Ordered By: Laurent Clark on 02-25-2022 Lymphocytes/100 WBC (Bld) 11.7 % . [facility] MCH Auto (RBC) [Entitic mass ]Ordered By: Laurent Clark on 02-25-2022 MCH (RBC) [Entitic mass] 32.9 pg 24.7-34.3 [facility] MCHC Auto (RBC) [Mass/Vol]Or dered By: Laurent Clark on 02-25-2022 MCHC (RBC) [Mass/Vol] 34.2 g/dL 32.0-35.0 [facility] MCV Auto (RBC) [Entitic vol] Ordered By: Laurent Clark on 02-25-2022 MCV (RBC) [Entitic vol] 96.2 fL 80-100 [facility] Monocytes Auto (Bld) [#/Vol] Ordered By: Laurent Clark on 02-25-2022 Monocytes (Bld) [#/Vol] 0.4 10*3/uL 0.0-0.8 [facility] Monocytes/100 WBC Auto (Bld) Ordered By: Laurent Clark on 02-25-2022 Monocytes/100 WBC (Bld) 7.6 % . [facility] Neutrophils Auto (Bld) [#/Vo l]Ordered By: Laurent Clark on 02-25-2022 Neutrophils (Bld) [#/Vol] 4.4 10*3/uL 1.8-7.7 [facility] Neutrophils/100 WBC Auto (Bl d)Ordered By: Laurent Clark on 02-25-2022 Neutrophils/100 WBC (Bld) 78.1 % . [facility] No Panel InformationOrdered By: Ajay Elam on 02-25-2022 Estimated GFR () > 60 mL/Min [facility] Comment on above: GFR estimated refere nce range: According to KDOQI guidelines, <60 ml/min/1.73m2 is sufficient to diagnose a patient with chronic kidney disease. Pharmacy Creatinine Clearance (Chem N/A [facility] Nucleated erythrocytes [Pres ence] in Blood by Automated countOrdered By: Laurent Clark on 02-25-2022 Nucleated RBC Auto Ql (Bld) 0.2 /100{WBC} 0-0.5 [facility] Phosphate [Mass/volume] in S michael or PlasmaOrdered By: Mickey Lovett on 02-25-2022 Phosphate [Mass/Vol] 3.8 mg/dL 2.5-4.6 [facility] Platelet adequacy [Presence] in Blood by Light microscopyOrdered By: Laurent Clark on 02-25-2022 Platelets LM Ql (Bld) Decreased Normal [facility] Platelet mean volume Auto (B ld) [Entitic vol]Ordered By: Laurent Clark on 02-25-2022 Platelet mean volume (Bld) [Entitic vol] 10.2 fL 6.3-10.7 [facility] Platelet morphology finding [Identifier] in BloodOrdered By: Laurent Clark on 02-25-2022 Platelet morphology finding Nom (Bld) N/A [facility] Platelet poor plasma interna tional normalized ratio (INR) by coagulation assay (relatOrdered By: Laurent Clark on 02-25-2022 INR Coag (PPP) [Relative time] 1.2 {INR} [facility] Comment on above: INR Therapeutic Rang e [...] 02-25-2022 Platelets (Bld) [#/Vol] 69 10*3/uL 150-450 [facility] Platelets Large [Presence] i n Blood by Light microscopyOrdered By: Laurent Clark on 02-25-2022 Platelets Large LM Ql (Bld) Slight [facility] Polychromasia [Presence] in Blood by Light microscopyOrdered By: Laurent Clark on 02-25-2022 Polychromasia LM Ql (Bld) Slight [facility] Protein [Mass/volume] in Ser um or PlasmaOrdered By: Ajay Elam on 02-25-2022 Protein [Mass/Vol] 7.7 g/dL 6.1-7.9 [facility] RBC Auto (Bld) [#/Vol]Ordere d By: Laurent Clark on 02-25-2022 RBC (Bld) [#/Vol] 4.79 10*6/uL 3.60-5.00 [facility] RBC morphologyOrdered By: Michael Clark on 02-25-2022 RBC morphology finding Nom (Bld) N/A [facility] Serum or plasma alanine grajeda otransferase measurement without P-5'-P (enzymatic activiOrdered By: Ajay Elam on 02-25-2022 ALT No additional P-5'-P [Catalytic activity/Vol] 34 U/L 10-60 [facility] Serum or plasma albumin/glob ulin mass ratioOrdered By: Ajay Elam on 02-25-2022 Albumin/Globulin [Mass ratio] 0.7 {ratio} [facility] Serum or plasma alkaline jordan sphatase measurement (enzymatic activity/volume)Ordered By: Ajay Elam on 02-25-2022 ALP [Catalytic activity/Vol] 160 U/L 32-92 [facility] Serum or plasma urrbh-[id number] protein tumor marker measurement (mass/volume)Ordered By: Laurent Clark on 02-25-2022 AFP.tumor marker [Mass/Vol] 2.7 ng/mL 0.0-9.2 [facility] Comment on above: [employer] El ectrochemiluminescence Immunoassay(ECLIA)Values obtained with different assay methods or kits cannotbe used interchangeably. Results cannot be interpreted asabsolute evidence of the presence or absence of malignantdisease.This test is not interpretable in females.Performed at: [facility] [employer] [id number] Director: Bret Montgomery PhD, Phone: [phone] Serum or plasma anion gap de terminationOrdered By: Ajay Elam on 02-25-2022 Anion gap [Moles/Vol] 13.4 mmol/L 6.0-15.0 [facility] Serum or plasma aspartate am inotransferase measurement (enzymatic activity/volume)Ordered By: Ajay Elam on 02-25-2022 AST [Catalytic activity/Vol] 49 U/L 10-42 [facility] Serum or plasma calcium elis urement (mass/volume)Ordered By: Ajay Elam on 02-25-2022 Calcium [Mass/Vol] 8.8 mg/dL 8.2-10.2 [facility] Serum or plasma chloride neo surement (moles/volume)Ordered By: Ajay Elam on 02-25-2022 Chloride [Moles/Vol] 94 mmol/L 95-114 [facility] Serum or plasma glucose elis urement (mass/volume)Ordered By: Ajay Elam on 02-25-2022 Glucose [Mass/Vol] 308 mg/dL 70-100 [facility] Comment on above: ADA recommended refe rence rangeRandom Glucose Reference Range is dependent on time and content of last meal. Glucose of more than 200 mg/dL in a nonstressed, ambulatory subject supports the diagnosis of Diabetes Mellitus. Serum or plasma high density lipoprotein (HDL) cholesterol measurementOrdered By: Ajay Elam on 02-25-2022 Cholesterol in HDL [Mass/Vol] 54 mg/dL 35-85 [facility] Comment on above: HDL CHOL ATP-III CLA SSIFICATION Cardiovascular RiskHDL > or equal to 60 mg/dL LOWHDL < 40 mg/dL HIGH Serum or plasma potassium me asurement (moles/volume)Ordered By: Ajay Elam on 02-25-2022 Potassium [Moles/Vol] 4.8 mmol/L 3.5-5.1 [facility] Serum or plasma sodium measu rement (moles/volume)Ordered By: Ajay Elam on 02-25-2022 Sodium [Moles/Vol] 126 mmol/L 136-146 [facility] Serum or plasma total biliru bin measurement (mass/volume)Ordered By: Ajay Elam on 02-25-2022 Bilirubin [Mass/Vol] 1.7 mg/dL 0.3-1.2 [facility] Comment on above: Samples from patient s who have taken Naproxen have shown spurious elevation in Total Bilirubin levels. A metabolite of Naproxen, O-desmethylnaproxen, has been shown to interfere with the Handy-Danny method for measuring Total Bilirubin. Serum or plasma total carbon dioxide measurement (moles/volume)Ordered By: Ajay Elam on 02-25-2022 CO2 [Moles/Vol] 23.4 mmol/L 22.0-30.0 [facility] Serum or plasma total choles terol/high density lipoprotein (HDL) cholesterol mass ratOrdered By: Ajay Elam on 02-25-2022 Cholesterol.total/Cho lesterol in HDL [Mass ratio] 2.4 {ratio} <5.0 [facility] Serum or plasma urea nitroge n measurement (mass/volume)Ordered By: Ajay Elam on 02-25-2022 Urea nitrogen [Mass/Vol] 14 mg/dL 9- [facility] Triglyceride [Mass/volume] i n Serum or PlasmaOrdered By: Ajay [facility] on 02-25-2022 Triglyceride [Mass/Vol] 83 mg/dL 35-149 [facility] Comment on above: TRIG ATP III CLASSIF [...] 20 mg/L (U) [Mass/Vol] 0.4 mg/dL 0.0-1.8 [facility] Urine microalbumin/creatinin e mass ratioOrdered By: Ajay Elam on 02-25-2022 Albumin/Creatinine DL <= 20 mg/L (U) [Mass ratio] 3.0 mg/g 0.0-30.0 [facility] Comment on above: 30-300 mg/g indicate s an increased risk for diabetic nephropathy. Greater than 300 mg/g is consistent with clinical nephropathy. (Am. J. Kidney Disease 1995, 25:107) WBC Auto (Bld) [#/Vol]Ordere d By: Laurent Clark on 02-25-2022 WBC (Bld) [#/Vol] 5.6 10*3/uL 3.8-11.6 [facility] A1C HEMOGLOBINon 01-05-2022 HbA1c (Bld) [Mass fraction] 11 % [employer] Other Glucose - FINGER STICKon Glucose [Mass/Vol] 195 mg/dL [employer] Other HbA1c (Bld) [Mass fraction]o n 01-05-2022 A1C HEMOGLOBIN [employer] Other A1C HEMOGLOBINon 09-23-2021 HbA1c (Bld) [Mass fraction] 9.3 % [employer] [facility] [employer] Other Glucose - FINGER STICKon Glucose [Mass/Vol] 151 mg/dL [employer] Other HbA1c (Bld) [Mass fraction]o n 09-23-2021 A1C HEMOGLOBIN [employer] Other OSMOLALITYon 05-14-2021 Osmolality [Osmolality] 273 mosm/kg Critically low 275-[address] [facility] Comment on above: Performed By: #### C BC #### [facility] [address] [place] [address] Edy Mari OSMOLALITY URINEon Osmolality, Urine 221 mOsmol/kg Normal [facility] Comment on above: Result Comment: 24 h r : 300 - 900 Random: 50 - 1400 After 12hr fluid restriction: >850 Performed By: #### C BC #### [facility] [address] [id number] Edy Mari MAGNESIUMon 05-12-2021 Magnesium [Mass/Vol] 1.7 mg/dL Normal 1.6-2.3 [facility] Comment on above: Performed By: #### C MP #### [facility] [address] [place], [place] [id number] Edy Mari PROF CHEM 8 (BAS METB)on Anion gap [Moles/Vol] 10.0 mmol/L Normal [facility] Comment on above: Performed By: #### C MP #### [facility] [address] [place] [address] Edy Mari Calcium [Mass/Vol] 8.1 mg/dL Critically low 8.4-10.2 [facility] Comment on above: Performed By: #### C MP #### [facility] [address] [place] [address] Edy Mari Chloride [Moles/Vol] 93 mmol/L Critically low 98-107 [facility] [facility] Comment on above: Performed By: #### C MP #### [facility] [address] [place] [address] Edy Mari CO2 [Moles/Vol] 30.2 mmol/L Critically high 22.0-30.0 [facility] Comment on above: Performed By: #### C MP #### [facility] [address] [place] [address] Edy Mari Creatinine [Mass/Vol] 0.75 mg/dL Normal 0.52-1.04 [facility] Comment on above: Performed By: #### C MP #### [facility] [address] [place], [place] [id number] Edy Mari EGFR-AF RWANDAN >60 Normal >=60 [facility] Comment on above: Performed By: #### C MP #### [facility] [address] [place], [place] [id number] Edy Mari EGFR-NON AF RWANDAN >60 Normal >=60 [facility] Comment on above: Performed By: #### C MP #### [facility] [address] [place], [place] [id number] Edy Mari Glucose [Mass/Vol] 269 mg/dL Critically high 74-106 [facility] Comment on above: Performed By: #### C MP #### [facility] [address] [place], [place] [address] Edy Mari Potassium [Moles/Vol] 4.2 mmol/L Normal 3.4-5.0 [facility] Comment on above: Performed By: #### C MP #### [facility] [address] [place] [address] Edy Mari Sodium [Moles/Vol] 129 mmol/L Critically low 137-145 [facility] Comment on above: Performed By: #### C MP #### [facility] [address] [place] [address] Edy Mari Urea nitrogen [Mass/Vol] 11.0 mg/dL Normal 7.0-17.0 [facility] Comment on above: Performed By: #### C MP #### [facility] [address] [place], [place] [id number] Edy Mari Urea nitrogen/Creatinine [Mass ratio] 14.7 mg/mg Normal [facility] Comment on above: Performed By: #### C MP #### [facility] [address] [place], [place] [id number] Edy Mari SODIUM RANDOM URINEon 2021 Sodium (U) [Moles/Vol] 68 mmol/L Normal 30-90 [facility] Comment on above: Performed By: #### C MP #### [facility] [address] [place], [place] [id number] Edy Mari VITAMIN D 25 OHon 05-12-2021 VIT D 25-OH 37.7 ng/mL Normal [facility] Comment on above: Performed By: #### C BC #### [facility] [address] [place] [address] Edy Mari VIT D RANGES SEE BELOW Normal [facility] Comment on above: Result Comment: <20 ng/mL Vit D deficient 20 - <30 ng/mL Vit D insufficient 30 - 100 ng/mL Vit D sufficient >100 ng/mL Potential Toxicity Performed By: #### C BC #### [facility] [address] [place] [address] Edy Mari ACETONE SERUMon 05-09-2021 ACETONE Negative Normal NEGATIVE [facility] Comment on above: Performed By: #### C BC #### [facility] [address] [place], [place] [address] Edy Mari CBC AUTO DIFFon 05-09-2021 BASO # 0.1 103/ul Normal 0.0-0.1 [facility] Comment on above: Performed By: #### C MP #### [facility] [address] [id number] Edy Mari Basophils/100 WBC (Bld) 0.7 % Normal 0.2-2.[address] [facility] Comment on above: Performed By: #### C MP #### [facility] [address] [id number] Edy Mari EO # 0.2 103/ul Normal 0.0-0.[address] [facility] Comment on above: Performed By: #### C MP #### [facility] [address] [id number] Edy Mari Eosinophils/100 WBC (Bld) 2.0 % Normal 0.9-7.[address] [facility] Comment on above: Performed By: #### C MP #### [facility] [address] [id number] Edy Mari Erythrocyte distribution width (RBC) [Ratio] 12.8 % Normal 11.0-15.0 [facility] Comment on above: Performed By: #### C MP #### [facility] [address] [place], [place] [id number] Edy Mari Hematocrit (Bld) [Volume fraction] 43.1 % Normal 36.0-48.[address] [facility] Comment on above: Performed By: #### C MP #### [facility] [address] [id number] Edy Mari Hemoglobin (Bld) [Mass/Vol] 15.1 g/dL Normal 12.0-16.[address] [facility] Comment on above: Performed By: #### C MP #### [facility] [address] [id number] Edy Mari IG # 0.03 10e3/ul Normal 0.00-0.[address] [facility] Comment on above: Performed By: #### C MP #### [facility] [address] [place], [place] [phone] Edy Mari IG % 0.4 % Normal 0.0-0.[address] [facility] Comment on above: Performed By: #### C MP #### [facility] [address] [place], [place] [id number] Edy Mari LYMPH # 1.0 103/ul Critically low 1.2-3.8 The [facility] Comment on above: Performed By: #### C MP #### [facility] [address] [place], [place] [id number] Edy Guerra Lymphocytes/100 WBC (Bld) 13.0 % Critically low 20.5-60.[address] [facility] Comment on above: Performed By: #### C MP #### [facility] [address] [place], [place] [phone] Edy Guerra MANUAL DIFF REQ NO Normal [facility] Comment on above: Performed By: #### C MP #### [facility] [address] [place], [place] [phone] Edyjax Salmeronen MCH (RBC) [Entitic mass] 32.1 pg Normal 26.7-34.[address] [facility] Comment on above: Performed By: #### C MP #### [facility] [address] [place], [place] [phone] Edyjax Guerra MCHC (RBC) [Mass/Vol] 35.0 g/dL Normal 29.9-35.[address] [facility] Comment on above: Performed By: #### C MP #### [facility] [address] [place] [address] Edyjax Guerra MCV (RBC) [Entitic vol] 91.7 fL Normal 81.0-99.[address] [facility] Comment on above: Performed By: #### C MP #### [facility] [address] [place], [place] [phone] Edy Mari MONO # 0.7 103/ul Normal 0.3-0.[address] [facility] Comment on above: Performed By: #### C MP #### [facility] [address] [place], [place] [phone] Edyjax Guerra Monocytes/100 WBC (Bld) 8.8 % Normal 1.7-12.0 [facility] Comment on above: Performed By: #### C MP #### [facility] [address] [place], [place] [phone] Edy Guerra NEUT # 5.6 103/ul Normal 1.4-6.5 [facility] Comment on above: Performed By: #### C MP #### [facility] [address] [place], [place] [phone] Edy Guerra Neutrophils/100 WBC (Bld) 75.1 % Critically high 43.0-75.0 [facility] Comment on above: Performed By: #### C MP #### [facility] [address] [place] [address] Edy Guerra Platelet mean volume (Bld) [Entitic vol] 10.8 fL Normal 9.5-13.[address] [facility] Comment on above: Performed By: #### C MP #### [facility] [address] [place] [address] Edyjax Salmeronen PLT 115 103/ul Critically low 150-450 [facility] Comment on above: Performed By: #### C MP #### [facility] [address] [place] [address] Edy Mari RBC 4.70 106/ul Normal 4.20-5.40 [facility] Comment on above: Performed By: #### C MP #### [facility] [address] [place] [address] Edyjax Salmeronen WBC 7.4 103/ul Normal 4.0-11.0 [facility] Comment on above: Performed By: #### C MP #### [facility] [address] [place], [place] [phone] Edyjax Guerra ER URINE PROFILEon 2 Bilirubin Ql (U) Negative Normal NEGATIVE [facility] Comment on above: Performed By: #### C BC #### [facility] [address] [place], [place] [phone] Edy Mari Clarity (U) CLEAR Normal CLEAR [facility] Comment on above: Performed By: #### C BC #### [facility] [address] [place] [address] Edy Mari Color (U) LT. YELLOW Normal YELLOW [facility] Comment on above: Performed By: #### C BC #### [facility] [address] [place] [address] Edy Mari ERUAHD A micrscopic examina tion will be performed if indicated. Normal [facility] Comment on above: Performed By: #### C BC #### [facility] [address] [place] [address] Edy Mari Glucose Ql (U) >1000 Abnormal NEGATIVE The [facility] Comment on above: Performed By: #### C BC #### [facility] [address] [place] [address] Edy Mari Hemoglobin Ql (U) Negative Normal NEGATIVE [facility] Comment on above: Performed By: #### C BC #### [facility] [address] [place] [address] Edy Mari Ketones Ql (U) Negative Normal NEGATIVE The [facility] Comment on above: Performed By: #### C BC #### [facility] [address] [place] [address] Edy Mari LEUKOCYTES Negative Normal NEGATIVE [facility] Comment on above: Performed By: #### C BC #### [facility] [address] [place] [address] Dey Mari Nitrite Ql (U) Negative Normal NEGATIVE The [facility] Comment on above: Performed By: #### C BC #### [facility] [address] [place] [address] Edy Mari pH (U) 6.5 [pH] Normal 5-[address] [facility] Comment on above: Performed By: #### C BC #### [facility] [address] [place] [address] Edy Mari SPEC GRAVITY <=1.005 Abnormal 1.005-<=1. 025 [facility] Comment on above: Performed By: #### C BC #### [facility] [address] [place] [address] Edy Mari UA PROTEIN Negative Normal NEGATIVE/ TRACE [facility] Comment on above: Performed By: #### C BC #### [facility] [address] [place] [address] Edy Guerra UR MICRO IND NOT INDICATED Normal [facility] [place] Comment on above: Performed By: #### C BC #### [facility] [address] [place], [place] [phone] Edy Guerra Urobilinogen Qn (U) 0.2 {Bin'U}/dL Normal 0.2 - 1. 0 [facility] Comment on above: Performed By: #### C BC #### [facility] [address] [place], [place] [phone] Edy Guerra PH VENOUS BLOODon 05-09-2021 PCO2 VENOUS 43.4 mmHg Normal 40.0-52.0 [facility] Comment on above: Performed By: #### C BC #### [facility] [address] [place] [address] Edy Guerra pH VENOUS 7.431 Critically high 7.330-7.43 0 [facility] Comment on above: Performed By: #### C BC #### [facility] [address] [place] [address] Edy Guerra POINT OF CARE GLUCOSEon 04-29 Glucose [Mass/Vol] 222 mg/dL Critically high 74-106 [facility] Comment on above: Performed By: #### C BC #### [facility] [address] [place], [place] [phone] Edy Guerra PROF 14(COMP METB)on 022 Albumin [Mass/Vol] 2.4 g/dL Critically low 3.5-5.0 Th [facility] Comment on above: Performed By: #### C MP #### [facility] [address] [place], [place] [phone] Edy Mari Albumin/Globulin [Mass ratio] 0.5 {ratio} Normal [facility] Comment on above: Performed By: #### C MP #### [facility] [address] [place] [address] Edy Mari ALP [Catalytic activity/Vol] 125 U/L Normal 38-126 [facility] Comment on above: Performed By: #### C MP #### [facility] [address] [place], [place] [address] Edy Mari ALT [Catalytic activity/Vol] 19 U/L Normal 9-52 [facility] Comment on above: Performed By: #### C MP #### [facility] [address] [place], [place] [address] Edy Mari Anion gap [Moles/Vol] 8.8 mmol/L Normal [facility] Comment on above: Performed By: #### C MP #### [facility] [address] [id number] Edy Mari AST [Catalytic activity/Vol] 24 U/L Normal 14-36 [facility] Comment on above: Performed By: #### C MP #### [facility] [address] [place], [place] [phone] Edy Mari Bilirubin [Mass/Vol] 1.2 mg/dL Normal 0.2-1.3 [facility] Comment on above: Performed By: #### C MP #### [facility] [address] [place], [place] [address] Edy Mari Calcium [Mass/Vol] 8.0 mg/dL Critically low 8.4-10.2 [facility] Comment on above: Performed By: #### C MP #### [facility] [address] [place], [place] [phone] Edy Mari Chloride [Moles/Vol] 91 mmol/L Critically low 98-[address] [facility] Comment on above: Performed By: #### C MP #### [facility] [address] [place], [place] [address] Edy Mari CO2 [Moles/Vol] 27.4 mmol/L Normal 22.0-30.0 [facility] Comment on above: Performed By: #### C MP #### [facility] [address] [place], [place] [address] Edy Mari Creatinine [Mass/Vol] 0.72 mg/dL Normal 0.52-1.04 [facility] Comment on above: Performed By: #### C MP #### [facility] [address] [id number] Edy Mari EGFR-AF RWANDAN >60 Normal >=60 [facility] Comment on above: Performed By: #### C MP #### [facility] [address] [id number] Edy Mari EGFR-NON AF RWANDAN >60 Normal >=60 [facility] Comment on above: Performed By: #### C MP #### [facility] [address] [address] Edy Mari Globulin (S) [Mass/Vol] 4.4 g/dL Normal [facility] Comment on above: Performed By: #### C MP #### [facility] [address] [place] [address] Edy Mari Glucose [Mass/Vol] 307 mg/dL Critically high 74-106 [facility] Comment on above: Performed By: #### C MP #### [facility] [address] [place] [address] Edy Mari Potassium [Moles/Vol] 4.2 mmol/L Normal 3.4-5.0 [facility] Comment on above: Performed By: #### C MP #### [facility] [address] [place] [address] Edy Mari Protein [Mass/Vol] 6.8 g/dL Normal 6.1-8.2 [facility] Comment on above: Performed By: #### C MP #### [facility] [address] [place] [address] Edy Mari Sodium [Moles/Vol] 123 mmol/L Critically low 137-145 [facility] Comment on above: Result Comment: TEST REPEATED CRITICAL VALUE VERIFIED Performed By: #### C MP #### [facility] [address] [place] [address] Edy Mari Urea nitrogen [Mass/Vol] 10.0 mg/dL Normal 7.0-17.0 [facility] Comment on above: Performed By: #### C MP #### [facility] [address] [place] [address] Edy Guerra Urea nitrogen/Creatinine [Mass ratio] 13.9 mg/mg Normal [facility] Comment on above: Performed By: #### C MP #### [facility] [address] [id number] Edy Guerra PROF CHEM 8 (BAS METB)on Anion gap [Moles/Vol] 9.1 mmol/L Normal [facility] Comment on above: Performed By: #### C BC #### [facility] [address] [id number] Edy Mari Calcium [Mass/Vol] 7.4 mg/dL Critically low 8.4-10.2 [facility] Comment on above: Performed By: #### C BC #### [facility] [address] [place] [address] Edy Mari Chloride [Moles/Vol] 94 mmol/L Critically low 98-107 [facility] Comment on above: Performed By: #### C BC #### [facility] [address] [id number] Edy Mari CO2 [Moles/Vol] 26.8 mmol/L Normal 22.0-30.0 [facility] Comment on above: Performed By: #### C BC #### [facility] [address] [place], [place] [phone] Edy Mari Creatinine [Mass/Vol] 0.81 mg/dL Normal 0.52-1.[address] [facility] Comment on above: Performed By: #### C BC #### [facility] [address] [place], [place] [address] Edy Mari EGFR-AF RWANDAN >60 Normal >=60 [facility] Comment on above: Performed By: #### C BC #### [facility] [address] [place], [place] [address] Edy Mari EGFR-NON AF RWANDAN >60 Normal >=[address] [facility] Comment on above: Performed By: #### C BC #### [facility] [address] [id number] Edy Mari Glucose [Mass/Vol] 535 mg/dL Critically high 74-106 [facility] Comment on above: Performed By: #### C BC #### [facility] [address] [id number] Edy Mari Potassium [Moles/Vol] 4.9 mmol/L Normal 3.4-5.0 [facility] Comment on above: Performed By: #### C BC #### [facility] [address] [id number] Edy Mari Sodium [Moles/Vol] 125 mmol/L Critically low 137-145 [facility] Comment on above: Performed By: #### C BC #### [facility] [address] [place], [place] [id number] Edy Mari Urea nitrogen [Mass/Vol] 9.0 mg/dL Normal 7.0-17.0 [facility] Comment on above: Performed By: #### C BC #### [facility] [address] [place] [address] Edy Mari Urea nitrogen/Creatinine [Mass ratio] 11.1 mg/mg Normal [facility] Comment on above: Performed By: #### C BC #### [facility] [address] [place], [place] [id number] Edy Mari CBC AUTO DIFFon 03-31-2021 BASO # 0.1 103/ul Normal 0.0-0.1 [facility] Comment on above: Performed By: #### C MP #### [facility] [address] [place], [place] [id number] Edy Mari Basophils/100 WBC (Bld) 0.6 % Normal 0.2-2.0 [facility] Comment on above: Performed By: #### C MP #### [facility] [address] [place], [place] [address] Edy Mari EO # 0.1 103/ul Normal 0.0-0.7 [facility] Comment on above: Performed By: #### C MP #### [facility] [address] [place], [place] [id number] Edy Mari Eosinophils/100 WBC (Bld) 0.9 % Normal 0.9-7.0 [facility] Comment on above: Performed By: #### C MP #### [facility] [address] [place] [address] Edyjax Guerra Erythrocyte distribution width (RBC) [Ratio] 13.7 % Normal 11.0-15.0 [facility] Comment on above: Performed By: #### C MP #### [facility] [address] [place] [address] Edy Mari Hematocrit (Bld) [Volume fraction] 50.9 % Critically high 36.0-48.0 [facility] Comment on above: Performed By: #### C MP #### [facility] [address] [place] [address] Edy Mari Hemoglobin (Bld) [Mass/Vol] 17.1 g/dL Critically high 12.0-16.0 [facility] Comment on above: Performed By: #### C MP #### [facility] [address] [place] [address] Edy Mari IG # 0.03 10e3/ul Normal 0.00-0.03 [facility] Comment on above: Performed By: #### C MP #### [facility] [address] [place] [address] Edy Mari IG % 0.3 % Normal 0.0-0.5 [facility] Comment on above: Performed By: #### C MP #### [facility] [address] [place] [address] Edy Amri LYMPH # 1.1 103/ul Critically low 1.2-3.8 [facility] Comment on above: Performed By: #### C MP #### [facility] [address] [place] [address] Edy Guerra Lymphocytes/100 WBC (Bld) 10.0 % Critically low 20.5-60.[address] [facility] Comment on above: Performed By: #### C MP #### [facility] [address] [place], [place] [id number] Edy Guerra MANUAL DIFF REQ NO Normal [facility] [place] Comment on above: Performed By: #### C MP #### [facility] [address] [place], [place] [address] Edyjax Guerra MCH (RBC) [Entitic mass] 31.6 pg Normal 26.7-34.[address] [facility] Comment on above: Performed By: #### C MP #### [facility] [address] [id number] Edy Guerra MCHC (RBC) [Mass/Vol] 33.6 g/dL Normal 29.9-35.[address] [facility] Comment on above: Performed By: #### C MP #### [facility] [address] [id number] Edyjax Guerra MCV (RBC) [Entitic vol] 94.1 fL Normal 81.0-99.[address] [facility] Comment on above: Performed By: #### C MP #### [facility] [address] [place], [place] [address] Edy Salmeronen MONO # 1.0 103/ul Critically high 0.3-0.8 [facility] Comment on above: Performed By: #### C MP #### [facility] [address] [id number] Edyjax Salmeronen Monocytes/100 WBC (Bld) 9.3 % Normal 1.7-12.[address] [facility] Comment on above: Performed By: #### C MP #### [facility] [address] [id number] Edy Guerra NEUT # 8.5 103/ul Critically high 1.4-6.5 [facility] Comment on above: Performed By: #### C MP #### [facility] [address] [place], [place] [id number] Edy Mari Neutrophils/100 WBC (Bld) 78.9 % Critically high 43.0-75.[address] [facility] Comment on above: Performed By: #### C MP #### [facility] [address] [id number] Edy Mari Platelet mean volume (Bld) [Entitic vol] 11.5 fL Normal 9.5-13.[address] [facility] Comment on above: Performed By: #### C MP #### [facility] [address] [place], [place] [address] Edy Guerra PLT 91 103/ul Critically low 150-450 The [facility] Comment on above: Performed By: #### C MP #### [facility] [address] [place], [place] [address] Edy Guerra RBC 5.41 106/ul Critically high 4.20-5.40 [facility] Comment on above: Performed By: #### C MP #### [facility] [address] [place], [place] [address] Edy Salmeronen WBC 10.8 103/ul Normal 4.0-11.[address] [facility] Comment on above: Performed By: #### C MP #### [facility] [address] [place], [place] [address] ABD/PELV W CONon 03-31-19 [...] SONAL JJ Date: 2021-03-31 00:[address] [facility] Covid-19 PCR (CVDTBH)on 03-03 SARS-CoV-2 (COVID-19) RNA QUYNH+probe Ql (Unsp spec) Not detected Normal NOT DETECTED [facility] Comment on above: Result Comment: This test is not yet approved or cleared by the [place] FDA. When there are no FDA-approved or cleared tests available, and other criteria are met, FDA can make tests available under an emergency access mechanism called an Emergency Use Authorization (EUA). The EUA for this test is supported by the [place] of [place] and Human Service's (HHS's) declaration [...] SARS-CoV-2. Performed By: #### C MP #### [facility] [address] [place] [address] Edy Guerra LACTATE/LACTIC ACIDon 2021 Lactate [Moles/Vol] 2.1 mmol/L Critically high 0.7-2.0 [facility] Comment on above: Performed By: #### C BC #### [facility] [address] [place] [address] Edy Guerra PROF 14(COMP METB)on 022 Albumin [Mass/Vol] 3.2 g/dL Critically low 3.5-5.[address] [facility] Comment on above: Performed By: #### C MP #### [facility] [address] [place] [address] Dr. Dallin Harper Albumin/Globulin [Mass ratio] 0.6 {ratio} Normal [facility] Comment on above: Performed By: #### C MP #### [facility] [address] [place] [address] Dr. Dallin Harper ALP [Catalytic activity/Vol] 168 U/L Critically high 38-126 [facility] Comment on above: Performed By: #### C MP #### [facility] [address] [place] [address] Dr. Dallin Harper ALT [Catalytic activity/Vol] 22 U/L Normal 9-52 [facility] [facility] Comment on above: Performed By: #### C MP #### [facility] [address] [place] [address] Dr. Dallin Harper Anion gap [Moles/Vol] 11.5 mmol/L Normal [facility] Comment on above: Performed By: #### C MP #### [facility] [address] [address] [address] Dallin Harper AST [Catalytic activity/Vol] 30 U/L Normal 14-36 [facility] Comment on above: Performed By: #### C MP #### [facility] [address] [address] [address] Dallin Harper Bilirubin [Mass/Vol] 1.8 mg/dL Critically high 0.2-1.3 [facility] Comment on above: Performed By: #### C MP #### [facility] [address] [address] [address] Dallin Harper Calcium [Mass/Vol] 9.0 mg/dL Normal 8.4-10.2 [facility] Comment on above: Performed By: #### C MP #### [facility] [address] [address] [address] Dallin Harper Chloride [Moles/Vol] 95 mmol/L Critically low 98-107 [facility] Comment on above: Performed By: #### C MP #### [facility] [address] [address] [address] Dallin Harper CO2 [Moles/Vol] 26.0 mmol/L Normal 22.0-30.0 [facility] Comment on above: Performed By: #### C MP #### [facility] [address] [address] [address] Dallin Harper Creatinine [Mass/Vol] 0.93 mg/dL Normal 0.52-1.04 [facility] Comment on above: Performed By: #### C MP #### [facility] [address] [address] [address] Dallin Harper EGFR-AF RWANDAN >60 Normal >=60 [facility] Comment on above: Performed By: #### C MP #### [facility] [address] [address] [address] Dallin Harper EGFR-NON AF RWANDAN >60 Normal >=60 [facility] Comment on above: Performed By: #### C MP #### [facility] [address] [address] [address] Dallin Harper Globulin (S) [Mass/Vol] 5.3 g/dL Normal [facility] Comment on above: Performed By: #### C MP #### [facility] [address] [address] [address] Dallin Harper Glucose [Mass/Vol] 289 mg/dL Critically high 74-106 [facility] Comment on above: Performed By: #### C MP #### [facility] [address] [address] [address] Dallin Harper Potassium [Moles/Vol] 4.5 mmol/L Normal 3.4-5.0 [facility] Comment on above: Performed By: #### C MP #### [facility] [address] [address] [address] Dallin Harper Protein [Mass/Vol] 8.5 g/dL Critically high 6.1-8.2 [facility] Comment on above: Performed By: #### C MP #### [facility] [address] [address] [address] Dallin Harper Sodium [Moles/Vol] 128 mmol/L Critically low 137-145 [facility] Comment on above: Performed By: #### C MP #### [facility] [address] [address] [address] Dallin Harper Urea nitrogen [Mass/Vol] 20.0 mg/dL Critically high 7.0-17.0 [facility] Comment on above: Performed By: #### C MP #### [facility] [address] [address] [address] Dallin Harper Urea nitrogen/Creatinine [Mass ratio] 21.5 mg/mg Normal [facility] Comment on above: Performed By: #### C MP #### [facility] [address] [place] [address] Dr. Dallin Harper XR CHEST 1 Von [...] FELISHA DA SILVA Date: 2021-03-31 03:58 Normal [facility] LIPID PROFILEon 02-18-2021 CHOL-HDL RATIO NORM SEE BELOW Normal [facility] Comment on above: Result Comment: 3.3 - 4.4 LOW RISK 4.4 - 7.1 AVERAGE RISK 7.1 - 11.0 MODERATE RISK >11.0 HIGH RISK Performed By: #### L IPID, CMP #### [facility] [address] [address] [address] Dallin Harper Cholesterol [Mass/Vol] 94 mg/dL Normal <=200 [facility] Comment on above: Performed By: #### L IPID, CMP #### [facility] [address] [address] [address] Dallin Harper Cholesterol in HDL [Mass/Vol] 44 mg/dL Normal [facility] Comment on above: Performed By: #### L IPID, CMP #### [facility] [address] [address] [address] Dallin Harper Cholesterol in LDL [Mass/Vol] 38.4 mg/dL Normal [facility] Comment on above: Performed By: #### L IPID, CMP #### [facility] [address] [address] [address] Dallin Harper Cholesterol.total/Cho lesterol in HDL [Mass ratio] 2.1 {ratio} Normal [facility] Comment on above: Performed By: #### L IPID, CMP #### [facility] [address] [address] [address] Dallin Harper HDL NORMAL > or = 60 mg/dl - LO W CARDIOVASCULAR RISK <40 mg/dl - HIGH CARDIOVASCULAR RISK Normal [facility] Comment on above: Performed By: #### L IPID, CMP #### [facility] [address] [address] [address] Dallin Harper LDL CALC NORMAL SEE BELOW Normal [facility] [place] Comment on above: Result Comment: <100 mg/dl OPTIMAL 100 - 129 mg/dl NEAR OR ABOVE OPTIMAL 130 - 159 mg/dl BORDERLINE HIGH 160 - 189 mg/dl HIGH >190 mg/dl VERY HIGH Performed By: #### L IPID, CMP #### [facility] [address] [address] [address] Dallin Harper Triglyceride [Mass/Vol] 58 mg/dL Normal <=150 [facility] Comment on above: Performed By: #### L IPID, CMP #### [facility] [address] [address] [address] Dallin Harper VLDL CALC 11.6 mg/dL Normal [facility] Comment on above: Performed By: #### L IPID, CMP #### [facility] [address] [address] [address] Dallin Harper MICROALB CREAT RATIO RANDOMo n 02-18-2021 mALB <1.3 Normal <=30.0 [facility] Comment on above: Performed By: #### C MP #### [facility] [address] [place] [address] Edy Guerra URINE CREAT 55.13 mg/dL Normal 20.00-300. 00 [facility] Comment on above: Performed By: #### C MP #### [facility] [address] [address] Edy Guerra PROF 14(COMP METB)on 021 Albumin [Mass/Vol] 2.6 g/dL Critically low 3.5-5.[address] [facility] Comment on above: Performed By: #### L IPID, CMP #### [facility] [address] [place] [address] Dr. Dallin Harper Albumin/Globulin [Mass ratio] 0.5 {ratio} Normal [facility] Comment on above: Performed By: #### L IPID, CMP #### [facility] [address] [address] [address] Dallin Harpre ALP [Catalytic activity/Vol] 158 U/L Critically high 38-126 [facility] Comment on above: Performed By: #### L IPID, CMP #### [facility] [address] [address] [address] Dallin Harper ALT [Catalytic activity/Vol] 17 U/L Normal 9-52 [facility] Comment on above: Performed By: #### L IPID, CMP #### [facility] [address] [address] [address] Dallin Harper Anion gap [Moles/Vol] 11.0 mmol/L Normal [facility] Comment on above: Performed By: #### L IPID, CMP #### [facility] [address] [address] [address] Dallin Harper AST [Catalytic activity/Vol] 28 U/L Normal 14-36 [facility] Comment on above: Performed By: #### L IPID, CMP #### [facility] [address] [address] [address] Dallin Harper Bilirubin [Mass/Vol] 1.0 mg/dL Normal 0.2-1.3 [facility] Comment on above: Performed By: #### L IPID, CMP #### [facility] [address] [address] [address] Dallin Harper Calcium [Mass/Vol] 8.5 mg/dL Normal 8.4-10.2 [facility] Comment on above: Performed By: #### L IPID, CMP #### [facility] [address] [address] [address] Dallin Harper Chloride [Moles/Vol] 102 mmol/L Normal 98-107 [facility] Comment on above: Performed By: #### L IPID, CMP #### [facility] [address] [address] [address] Dallin Harper CO2 [Moles/Vol] 28.7 mmol/L Normal 22.0-30.0 [facility] Comment on above: Performed By: #### L IPID, CMP #### [facility] [address] [address] [address] Dallin Harper Creatinine [Mass/Vol] 0.60 mg/dL Normal 0.52-1.04 [facility] Comment on above: Performed By: #### L IPID, CMP #### [facility] [address] [address] [address] Dallin Harper EGFR-AF RWANDAN >60 Normal >=60 [facility] Comment on above: Performed By: #### L IPID, CMP #### [facility] [address] [address] [address] Dallin Harper EGFR-NON AF RWANDAN >60 Normal >=60 [facility] Comment on above: Performed By: #### L IPID, CMP #### [facility] [address] [address] [address] Dallin Harper Globulin (S) [Mass/Vol] 4.8 g/dL Normal [facility] Comment on above: Performed By: #### L IPID, CMP #### [facility] [address] [address] [address] Dallin Harper Glucose [Mass/Vol] 229 mg/dL Critically high 74-106 [facility] Comment on above: Performed By: #### L IPID, CMP #### [facility] [address] [address] [address] Dallin Harper Potassium [Moles/Vol] 4.7 mmol/L Normal 3.4-5.0 [facility] Comment on above: Performed By: #### L IPID, CMP #### [facility] [address] [address] [address] Dallin Harper Protein [Mass/Vol] 7.4 g/dL Normal 6.1-8.2 [facility] Comment on above: Performed By: #### L IPID, CMP #### [facility] [address] [address] [address] Dallin Harper Sodium [Moles/Vol] 137 mmol/L Normal 137-145 [facility] Comment on above: Performed By: #### L IPID, CMP #### [facility] [address] [address] [address] Dallin Harper Urea nitrogen [Mass/Vol] 8.0 mg/dL Normal 7.0-17.0 [facility] Comment on above: Performed By: #### L IPID, CMP #### [facility] [address] [address] [address] Dallin Harper Urea nitrogen/Creatinine [Mass ratio] 13.3 mg/mg Normal [facility] Comment on above: Performed By: #### L IPID, CMP #### [facility] [address] [address] [address] Dallin Harper A1C HEMOGLOBINon 02-11-2021 HbA1c (Bld) [Mass fraction] 8.8 % [employer] Other Glucose - FINGER STICKon Glucose [Mass/Vol] 129 mg/dL [employer] Other HbA1c (Bld) [Mass fraction]o n 02-11-2021 A1C HEMOGLOBIN [facility] [employer] Other PROF CHEM 8 (BAS METB)on Anion gap [Moles/Vol] 9.1 mmol/L Normal [facility] Comment on above: Performed By: #### C BC #### [facility] [address] [address] Edy Mari Calcium [Mass/Vol] 8.0 mg/dL Critically low 8.4-10.2 [facility] Comment on above: Performed By: #### C BC #### [facility] [address] [address] Edy Mari Chloride [Moles/Vol] 103 mmol/L Normal 98-107 [facility] Comment on above: Performed By: #### C BC #### [facility] [address] [address] Edy Mari CO2 [Moles/Vol] 28.1 mmol/L Normal 22.0-30.0 [facility] Comment on above: Performed By: #### C BC #### [facility] [address] [id number] Edy Mari Creatinine [Mass/Vol] 0.55 mg/dL Normal 0.52-1.04 [facility] Comment on above: Performed By: #### C BC #### [facility] [address] [id number] Edy Mari EGFR-AF RWANDAN >60 Normal >=60 [facility] Comment on above: Performed By: #### C BC #### [facility] [address] [place] [address] Edy Mari EGFR-NON AF RWANDAN >60 Normal >=60 [facility] Comment on above: Performed By: #### C BC #### [facility] [address] [place] [address] Edy Mari Glucose [Mass/Vol] 173 mg/dL Critically high 74-106 [facility] Comment on above: Performed By: #### C BC #### [facility] [address] [place] [address] Edy Mari Potassium [Moles/Vol] 4.2 mmol/L Normal 3.4-5.0 [facility] Comment on above: Performed By: #### C BC #### [facility] [address] [place] [address] Edy Mari Sodium [Moles/Vol] 136 mmol/L Critically low 137-145 [facility] Comment on above: Performed By: #### C BC #### [facility] [address] [place] [address] Edy Mari Urea nitrogen [Mass/Vol] 8.0 mg/dL Normal 7.0-17.0 [facility] Comment on above: Performed By: #### C BC #### [facility] [address] [place] [address] Edy Mari Urea nitrogen/Creatinine [Mass ratio] 14.5 mg/mg Normal [facility] Comment on above: Performed By: #### C BC #### [facility] [address] [place], [place] [id number] Edy Mari AFP (TUMOR MARKER)on 021 AFP, Serum, Tumor Marker 1.7 ng/mL Normal 0.0-8.[address] [facility] Comment on above: Result Comment: [employer] Electrochemiluminescence Immunoassay (ECLIA) . Values obtained with different assay methods or kits cannot be used interchangeably. Results cannot be interpreted as absolute evidence of the presence or absence of malignant disease. . This test is not interpretable in females. Performed By: #### C MP #### [facility] [address] [place] [address] Edy Mari CBC AUTO DIFFon 10-29-2020 BASO # 0.1 103/ul Normal 0.0-0.1 [facility] Comment on above: Performed By: #### C BC #### [facility] [address] [place] [address] Edy Mari Basophils/100 WBC (Bld) 0.7 % Normal 0.2-2.0 [facility] Comment on above: Performed By: #### C BC #### [facility] [address] [place] [address] Edy Mari EO # 0.2 103/ul Normal 0.0-0.7 [facility] Comment on above: Performed By: #### C BC #### [facility] [address] [place] [address] Edy Mari Eosinophils/100 WBC (Bld) 2.2 % Normal 0.9-7.0 [facility] Comment on above: Performed By: #### C BC #### [facility] [address] [place] [address] Edy Mari Erythrocyte distribution width (RBC) [Ratio] 13.4 % Normal 11.0-15.[address] [facility] Comment on above: Performed By: #### C BC #### [facility] [address] [place] [address] Edy Mari Hematocrit (Bld) [Volume fraction] 44.8 % Normal 36.0-48.0 [facility] Comment on above: Performed By: #### C BC #### [facility] [address] [place], [place] [id number] Edy Mari Hemoglobin (Bld) [Mass/Vol] 15.2 g/dL Normal 12.0-16.0 [facility] Comment on above: Performed By: #### C BC #### [facility] [address] [place] [address] Edyjax Guerra IG # 0.02 10e3/ul Normal 0.00-0.03 [facility] Comment on above: Performed By: #### C BC #### [facility] [address] [place] [address] Edyjax Guerra IG % 0.3 % Normal 0.0-0.5 [facility] Comment on above: Performed By: #### C BC #### [facility] [address] [place] [address] Edyjax Guerra LYMPH # 1.1 103/ul Critically low 1.2-3.8 [facility] Comment on above: Performed By: #### C BC #### [facility] [address] [place] [address] Edy Guerra Lymphocytes/100 WBC (Bld) 15.0 % Critically low 20.5-60.0 [facility] Comment on above: Performed By: #### C BC #### [facility] [address] [place] [address] Edy Guerra MANUAL DIFF REQ NO Normal [facility] [place] Comment on above: Performed By: #### C BC #### [facility] [address] [place] [address] Edy Guerra MCH (RBC) [Entitic mass] 32.8 pg Normal 26.7-34.0 [facility] Comment on above: Performed By: #### C BC #### [facility] [address] [place] [address] Edy Guerra MCHC (RBC) [Mass/Vol] 33.9 g/dL Normal 29.9-35.[address] [facility] Comment on above: Performed By: #### C BC #### [facility] [address] [place] [address] Edy Guerra MCV (RBC) [Entitic vol] 96.8 fL Normal 81.0-99.0 [facility] Comment on above: Performed By: #### C BC #### [facility] [address] [place], [place] [address] Edy Salmeronen MONO # 0.8 103/ul Normal 0.3-0.8 [facility] Comment on above: Performed By: #### C BC #### [facility] [address] [id number] Edyjxa Salmeronen Monocytes/100 WBC (Bld) 10.6 % Normal 1.7-12.0 [facility] Comment on above: Performed By: #### C BC #### [facility] [address] [id number] Edy Mari NEUT # 5.2 103/ul Normal 1.4-6.5 [facility] Comment on above: Performed By: #### C BC #### [facility] [address] [place], [place] [id number] Edy Mari Neutrophils/100 WBC (Bld) 71.2 % Normal 43.0-75.0 [facility] Comment on above: Performed By: #### C BC #### [facility] [address] [place], [place] [id number] Edyjax Guerra Platelet mean volume (Bld) [Entitic vol] 11.5 fL Normal 9.5-13.5 [facility] Comment on above: Performed By: #### C BC #### [facility] [address] [place], [place] [id number] Edy Mari PLT 106 103/ul Critically low 150-450 The [facility] Comment on above: Performed By: #### C BC #### [facility] [address] [place], [place] [id number] Edy Mari RBC 4.63 106/ul Normal 4.20-5.[address] [facility] Comment on above: Performed By: #### C BC #### [facility] [address] [place], [place] [id number] Edy Mari WBC 7.3 103/ul Normal 4.0-11.[address] [facility] Comment on above: Performed By: #### C BC #### [facility] [address] [id number] Edy Mari PROF 14(COMP METB)on 021 Albumin [Mass/Vol] 2.6 g/dL Critically low 3.5-5.0 [facility] Comment on above: Performed By: #### C MP #### [facility] [address] [id number] Edy Mari Albumin/Globulin [Mass ratio] 0.5 {ratio} Normal [facility] Comment on above: Performed By: #### C MP #### [facility] [address] [id number] Edy Mari ALP [Catalytic activity/Vol] 194 U/L Critically high 38-126 [facility] Comment on above: Performed By: #### C MP #### [facility] [address] [place] [address] Edy Mari ALT [Catalytic activity/Vol] 23 U/L Normal 9-52 [facility] Comment on above: Performed By: #### C MP #### [facility] [address] [place], [place] [id number] Edy Mari Anion gap [Moles/Vol] 10.2 mmol/L Normal [facility] Comment on above: Performed By: #### C MP #### [facility] [address] [place] [address] Edy Mari AST [Catalytic activity/Vol] 40 U/L Critically high 14-36 [facility] Comment on above: Performed By: #### C MP #### [facility] [address] [place], [place] [id number] Edy Mari Bilirubin [Mass/Vol] 1.3 mg/dL Normal 0.2-1.3 [facility] Comment on above: Performed By: #### C MP #### [facility] [address] [place], [place] [id number] Edy Mari Calcium [Mass/Vol] 8.7 mg/dL Normal 8.4-10.2 [facility] Comment on above: Performed By: #### C MP #### [facility] [address] [place], [place] [address] Edy Mari Chloride [Moles/Vol] 93 mmol/L Critically low 98-107 [facility] Comment on above: Performed By: #### C MP #### [facility] [address] [id number] Edy Mari CO2 [Moles/Vol] 28.5 mmol/L Normal 22.0-30.0 [facility] Comment on above: Performed By: #### C MP #### [facility] [address] [address] Edy Mari Creatinine [Mass/Vol] 0.72 mg/dL Normal 0.52-1.04 [facility] Comment on above: Performed By: #### C MP #### [facility] [address] [place] [address] Edy Mari EGFR-AF RWANDAN >60 Normal >=60 [facility] Comment on above: Performed By: #### C MP #### [facility] [address] [address] Edy Mari EGFR-NON AF RWANDAN >60 Normal >=60 [facility] Comment on above: Performed By: #### C MP #### [facility] [address] [place], [place] [id number] Edy Mari Globulin (S) [Mass/Vol] 5.3 g/dL Normal [facility] Comment on above: Performed By: #### C MP #### [facility] [address] [place] [address] Edy Mari Glucose [Mass/Vol] 237 mg/dL Critically high 74-106 [facility] Comment on above: Performed By: #### C MP #### [facility] [address] [place] [address] Edy Mari Potassium [Moles/Vol] 4.7 mmol/L Normal 3.4-5.0 [facility] Comment on above: Performed By: #### C MP #### [facility] [address] [place] [address] Edy Mari Protein [Mass/Vol] 7.9 g/dL Normal 6.1-8.2 [facility] Comment on above: Performed By: #### C MP #### [facility] [address] [id number] Edy Mari Sodium [Moles/Vol] 127 mmol/L Critically low 137-[address] [facility] Comment on above: Performed By: #### C MP #### [facility] [address] [id number] Edy Mari Urea nitrogen [Mass/Vol] 8.0 mg/dL Normal 7.0-17.0 [facility] Comment on above: Performed By: #### C MP #### [facility] [address] [id number] Edyjax Guerra Urea nitrogen/Creatinine [Mass ratio] 11.1 mg/mg Normal [facility] Comment on above: Performed By: #### C MP #### [facility] [address] [place] [address] Edy Guerra PROTIMEon 10-29-2020 INR Coag (PPP) [Relative time] 1.18 {INR} Normal [facility] Comment on above: Performed By: #### C BC #### [facility] [address] [place], [place] [id number] Edy Mari INR GUIDELINES SEE BELOW Normal [facility] Comment on above: Result Comment: GABY RED INR: 2.0 - 3.0 CONDITIONS NOT LISTED BELOW 2.5 - 3.5 FOR PROSTHETIC HEART VALVE REPLACEMENT 2.5 - 3.5 RECURRENT THROMBOSIS Performed By: #### C BC #### [facility] [address] [place], [place] [id number] Edy Mari PT Coag (PPP) [Time] 12.6 s Critically high 9.0-11.6 [facility] Comment on above: Performed By: #### C BC #### [facility] [address] [place], [place] [id number] Edyjax Guerra BASIC METABOLIC PANELon 09-30 Calcium [Mass/Vol] 7.7 mg/dL Low 8.6-10.3 [facility] Comment on above: Order Comment: No: D o not add to previous draw Performed By: #### 1 69, [id number] #### [facility] [address] [place] [address], [place] Chloride [Moles/Vol] 102 mmol/L Normal 98-107 [facility] Comment on above: Order Comment: No: D o not add to previous draw Performed By: #### 1 69, [id number] #### [facility] [address] [place] [address], [place] CO2 [Moles/Vol] 23 mmol/L Normal 21-31 [facility] Comment on above: Order Comment: No: D o not add to previous draw Performed By: #### 1 69, [id number] #### [facility] [address] [place] [address], [place] Creatinine [Mass/Vol] 0.57 mg/dL Low 0.60-1.20 [facility] Comment on above: Order Comment: No: D o not add to previous draw Performed By: #### 1 69, [id number] #### [facility] [address] [place] [address], [place] GFR/1.73 sq M.predicted among blacks MDRD (S/P/Bld) [Vol rate/Area] mL/min/{1.73_m2} Normal >60 [facility] Comment on above: Order Comment: No: D o not add to previous draw Performed By: #### 1 69, 75474 #### [facility] [address] [place] [address], [place] GFR/1.73 sq M.predicted among non-blacks MDRD (S/P/Bld) [Vol rate/Area] mL/min/{1.73_m2} Normal >60 [facility] Comment on above: Order Comment: No: D o not add to previous draw Performed By: #### 1 69, 71568 #### [facility] [address] [place] [address], [place] Glucose [Mass/Vol] 226 mg/dL High 70-100 [facility] Comment on above: Order Comment: No: D o not add to previous draw Performed By: #### 1 69, 73611 #### [facility] [address] [place] [address], [facility] Potassium [Moles/Vol] 4.4 mmol/L Normal 3.5-5.1 [facility] Comment on above: Order Comment: No: D o not add to previous draw Performed By: #### 1 69, 27709 #### [facility] [address] [place] [address], [facility] Sodium [Moles/Vol] 131 mmol/L Low 136-145 [facility] Comment on above: Order Comment: No: D o not add to previous draw Performed By: #### 1 69, 06724 #### [facility] [address] Urea nitrogen [Mass/Vol] 10 mg/dL Normal 7-25 [facility] Comment on above: Order Comment: No: D o not add to previous draw Performed By: #### 1 69, 11138 #### [facility] [address] [facility] [place] [address], [facility] CBC W/DIFFon 10-18-2020 ABS IMM GRANS 0.0 10*3/uL Normal 0.0-0.2 [facility] Comment on above: Order Comment: No: D o not add to previous draw Performed By: #### 9 9908, 37138 #### [facility] [address] [place] [address], [facility] ABS NEUTROPHILS 5.1 10*3/uL Normal 1.6-7.6 [facility] Comment on above: Order Comment: No: D o not add to previous draw Performed By: #### 9 9908, 60476 #### [facility] [address] [place] [id number], [facility] Basophils (Bld) [#/Vol] 0.0 10*3/uL Normal 0.0-0.2 [facility] Comment on above: Order Comment: No: D o not add to previous draw Performed By: #### 9 9908, 47778 #### [facility] [address] [place] [address], [place] Basophils/100 WBC (Bld) 0.6 % Normal 0.0-1.0 [facility] Comment on above: Order Comment: No: D o not add to previous draw Performed By: #### 9 9908, 16787 #### [facility] [address] [place] [address], [place] Eosinophils (Bld) [#/Vol] 0.1 10*3/uL Normal 0.0-0.5 [facility] Comment on above: Order Comment: No: D o not add to previous draw Performed By: #### 9 9908, 81526 #### [facility] [address] [place] [id number], [place] Eosinophils/100 WBC (Bld) 1.8 % Normal 0.0-6.0 [facility] Comment on above: Order Comment: No: D o not add to previous draw Performed By: #### 9 9908, 58720 #### [facility] [address] [place] [id number], [place] Erythrocyte distribution width (RBC) [Ratio] 13.0 % Normal 11.5-15.0 [facility] Comment on above: Order Comment: No: D o not add to previous draw Performed By: #### 9 9908, 64454 #### [facility] [address] [place] [address], [place] Hematocrit (Bld) [Volume fraction] 39.2 % Normal 36.0-45.0 [facility] Comment on above: Order Comment: No: D o not add to previous draw Performed By: #### 9 9908, 70753 #### [facility] [address] [place] [address], [place] Hemoglobin (Bld) [Mass/Vol] 13.2 g/dL Normal 12.0-15.0 [facility] Comment on above: Order Comment: No: D o not add to previous draw Performed By: #### 9 9908, 95003 #### [facility] [address] [place] [address], [facility] IMM PLATELET FRAC 7.0 % High 0.8-6.3 [facility] Comment on above: Order Comment: No: D o not add to previous draw Performed By: #### 9 9908, 91502 #### [facility] [address] [place] [address], [facility] IMMATURE GRANS 0.4 % Normal 0.0-1.0 [facility] Comment on above: Order Comment: No: D o not add to previous draw Performed By: #### 9 9908, 49781 #### [facility] [address] [place] [address], [facility] Lymphocytes (Bld) [#/Vol] 1.0 10*3/uL Low 1.2-4.0 [facility] Comment on above: Order Comment: No: D o not add to previous draw Performed By: #### 9 9908, 90033 #### [facility] [address] [facility] [facility] [place] [address], [facility] Lymphocytes/100 WBC (Bld) 14.5 % Low 20.0-45.0 [facility] Comment on above: Order Comment: No: D o not add to previous draw Performed By: #### 9 9908, 93963 #### [facility] [address] [place] [id number], [facility] MCH (RBC) [Entitic mass] 32.7 pg Normal 27.0-33.0 [facility] Comment on above: Order Comment: No: D o not add to previous draw Performed By: #### 9 9908, 49522 #### [facility] [address] [place] [address], [facility] MCHC (RBC) [Mass/Vol] 33.7 g/dL Normal 32.0-35.0 [facility] Comment on above: Order Comment: No: D o not add to previous draw Performed By: #### 9 9908, 28676 #### [facility] [address] [place] [id number], [facility] MCV (RBC) [Entitic vol] 97.0 fL Normal 82.0-98.0 [facility] Comment on above: Order Comment: No: D o not add to previous draw Performed By: #### 9 9908, 08005 #### [facility] [address] [place] [address], [facility] Monocytes (Bld) [#/Vol] 0.8 10*3/uL Normal 0.1-1.0 [facility] Comment on above: Order Comment: No: D o not add to previous draw Performed By: #### 9 9908, 01945 #### [facility] [address] [place] [address], [facility] MONOS 11.3 % Normal 5.0-12.0 [facility] Comment on above: Order Comment: No: D o not add to previous draw Performed By: #### 9 9908, 70881 #### [facility] [address] [place] [id number], [facility] Neutrophils/100 WBC (Bld) 71.4 % Normal 40.0-72.0 [facility] Comment on above: Order Comment: No: D o not add to previous draw Performed By: #### 9 9908, 12444 #### [facility] [address] [place] [id number], [place] Nucleated RBC/100 WBC (Bld) [Ratio] 0 % Normal 0-0 [facility] Comment on above: Order Comment: No: D o not add to previous draw Performed By: #### 9 9908, 37723 #### [facility] [address] [place] [address], [facility] PLAT CNT 90 10*3/uL Low 150-400 [facility] Comment on above: Order Comment: No: D o not add to previous draw Performed By: #### 9 9908, 72995 #### [facility] [address] [place] [address], [place] RBC (Bld) [#/Vol] 4.04 10*6/uL Normal 3.80-5.00 [facility] Comment on above: Order Comment: No: D o not add to previous draw Performed By: #### 9 9908, 15098 #### [facility] [address] [place] [address], [facility] WBC (Bld) [#/Vol] 7.17 10*3/uL Normal 4.00-10.60 [facility] Comment on above: Order Comment: No: D o not add to previous draw Performed By: #### 9 9908, 74343 #### [facility] [address] [place] [address], [facility] MAGNESIUM BLOODon 10-18-2020 Magnesium [Mass/Vol] 1.6 mg/dL Low 1.9-2.7 [facility] Comment on above: Order Comment: No: D o not add to previous draw Performed By: #### 1 69, 91137 #### [facility] [address] [place] [address], [facility] POC GLUCOSE LABon 10-18-2020 Glucose [Mass/Vol] 261 mg/dL High 70-100 [facility] Comment on above: Performed By: #### 1 69, 30697 #### [facility] [address] [place] [address], [place] Glucose [Mass/Vol] 153 mg/dL High 70-100 [facility] Comment on above: Performed By: #### 1 69, 19487 #### [facility] [address] [place] [address], [facility] BASIC METABOLIC PANELon 08-1 Calcium [Mass/Vol] 7.8 mg/dL Low 8.6-10.3 [facility] Comment on above: Order Comment: No: D o not add to previous draw Performed By: #### 0 0071, 28317 #### [facility] [address] [place] [address], [place] Chloride [Moles/Vol] 104 mmol/L Normal 98-107 [facility] Comment on above: Order Comment: No: D o not add to previous draw Performed By: #### 0 0071, 93974 #### [facility] [address] [place] [address], [facility] CO2 [Moles/Vol] 25 mmol/L Normal 21-31 [facility] Comment on above: Order Comment: No: D o not add to previous draw Performed By: #### 0 0071, 57105 #### [facility] [address] [place] [address], [place] Creatinine [Mass/Vol] 0.45 mg/dL Low 0.60-1.20 [facility] Comment on above: Order Comment: No: D o not add to previous draw Performed By: #### 0 0071, 43103 #### [facility] [address] [place] [address], [place] GFR/1.73 sq M.predicted among blacks MDRD (S/P/Bld) [Vol rate/Area] mL/min/{1.73_m2} Normal >60 [facility] Comment on above: Order Comment: No: D o not add to previous draw Performed By: #### 0 0071, 88258 #### [facility] [address] [place] [address], [place] GFR/1.73 sq M.predicted among non-blacks MDRD (S/P/Bld) [Vol rate/Area] mL/min/{1.73_m2} Normal >60 [facility] Comment on above: Order Comment: No: D o not add to previous draw Performed By: #### 0 0071, 44202 #### [facility] [address] [place] [address], [place] Glucose [Mass/Vol] 53 mg/dL Low 70-100 [facility] Comment on above: Order Comment: No: D o not add to previous draw Performed By: #### 0 0071, 71006 #### [facility] [address] [place] [address], [facility] Potassium [Moles/Vol] 4.3 mmol/L Normal 3.5-5.1 [facility] Comment on above: Order Comment: No: D o not add to previous draw Performed By: #### 0 0071, 89255 #### [facility] [address] [place] [address], [place] Sodium [Moles/Vol] 134 mmol/L Low 136-145 [facility] Comment on above: Order Comment: No: D o not add to previous draw Performed By: #### 0 0071, 31559 #### [facility] [address] [place] [address], [facility] Urea nitrogen [Mass/Vol] 7 mg/dL Normal 7-25 [facility] Comment on above: Order Comment: No: D o not add to previous draw Performed By: #### 0 0071, 57414 #### [facility] [address] [place] [address], [facility] CBC COMPLETE BLOOD COUNTon 0 - Erythrocyte distribution width (RBC) [Ratio] 13.3 % Normal 11.5-15.0 [facility] Comment on above: Order Comment: No: D o not add to previous draw Performed By: #### 1 0070, 79109 #### [facility] [address] [place] [address], [place] Hematocrit (Bld) [Volume fraction] 42.8 % Normal 36.0-45.0 [facility] Comment on above: Order Comment: No: D o not add to previous draw Performed By: #### 1 69, 71451 #### [facility] [address] [place] [address], [facility] Hemoglobin (Bld) [Mass/Vol] 13.8 g/dL Normal 12.0-15.0 [facility] Comment on above: Order Comment: No: D o not add to previous draw Performed By: #### 1 69, 86909 #### [facility] [address] [place] [address], [facility] IMM PLATELET FRAC 5.9 % Normal 0.8-6.3 [facility] Comment on above: Order Comment: No: D o not add to previous draw Performed By: #### 1 69, #### [facility] [address] [facility] [place] [id number], [facility] MCH (RBC) [Entitic mass] 32.1 pg Normal 27.0-33.0 [facility] Comment on above: Order Comment: No: D o not add to previous draw Performed By: #### 1 69, 82641 #### [facility] [address] [facility] [place] [address], [facility] MCHC (RBC) [Mass/Vol] 32.2 g/dL Normal 32.0-35.0 [facility] Comment on above: Order Comment: No: D o not add to previous draw Performed By: #### 1 69, 05685 #### [facility] [address] [place] [address], [facility] MCV (RBC) [Entitic vol] 99.5 fL High 82.0-98.0 [facility] Comment on above: Order Comment: No: D o not add to previous draw Performed By: #### 1 69, 53119 #### [facility] [address] [place] [id number], [facility] Nucleated RBC/100 WBC (Bld) [Ratio] 0 % Normal 0-0 [facility] Comment on above: Order Comment: No: D o not add to previous draw Performed By: #### 1 69, 78483 #### [facility] [address] [place] [address], [facility] PLAT CNT 97 10*3/uL Low 150-400 [facility] Comment on above: Order Comment: No: D o not add to previous draw Result Comment: Prev iously Resulted 109 Performed By: #### 1 69, 93123 #### [facility] [address] [place] [address], [place] RBC (Bld) [#/Vol] 4.30 10*6/uL Normal 3.80-5.00 [facility] Comment on above: Order Comment: No: D o not add to previous draw Performed By: #### 1 69, 77730 #### [facility] [address] [place] [address], [place] WBC (Bld) [#/Vol] 6.62 10*3/uL Normal 4.00-10.60 [facility] Comment on above: Order Comment: No: D o not add to previous draw Performed By: #### 1 69, 83356 #### [facility] [address] [place] [address], [place] MAGNESIUM BLOODon 10-17-2020 Magnesium [Mass/Vol] 1.9 mg/dL Normal 1.9-2.7 [facility] Comment on above: Order Comment: No: D o not add to previous draw Performed By: #### 0 0071, 39934 #### [facility] [address] [place] [address], [place] POC GLUCOSE LABon 10-17-2020 Glucose [Mass/Vol] 205 mg/dL High 70-100 [facility] Comment on above: Performed By: #### 9 9909, 05962 #### [facility] [address] [place] [address], [place] Glucose [Mass/Vol] 165 mg/dL High 70-100 [facility] Comment on above: Performed By: #### 1 69, 21294 #### [facility] [address] [place] [address], [place] Glucose [Mass/Vol] 190 mg/dL High 70-100 [facility] Comment on above: Performed By: #### 1 69, 99757 #### [facility] [address] [place] [address], [place] Glucose [Mass/Vol] 228 mg/dL High 70-100 [facility] Comment on above: Performed By: #### 1 69, 92376 #### [facility] [address] [place] [address], [place] Glucose [Mass/Vol] 162 mg/dL High 70-100 [facility] Comment on above: Performed By: #### 1 69, 74866 #### [facility] [address] [place] [address], [place] Glucose [Mass/Vol] 66 mg/dL Low 70-100 [facility] Comment on above: Performed By: #### 9 09, 42337 #### [facility] [address] [place] [address], [facility] *AFB CULTUREon 10-16-2020 *AFB CULTURE Clinical Report: (D) Specimen/Source: FLUID/PARACENTESIS FLUID Collected: 10/16/2020 13:15 Status: Final Last Updated: 12/30/2020 07:37 (1) Paracentesis Fluid AFB (Final) No Acid Fast Bacilli Seen CULT RES (Final) No growth after 42 days of incubation Normal [facility] Comment on above: Order Comment: No: D o not add to previous draw Performed By: #### 1 69, 97721 #### [facility] [address] [place] [address], [facility] *ANAEROBIC CULTUREon 021 *ANAEROBIC CULTURE Clinical Report: (D) Specimen/Source: FLUID/PARACENTESIS FLUID Collected: 10/16/2020 13:15 Status: Final Last Updated: 10/21/2020 09:04 (1) Paracentesis FLuid No: Do not add to previous draw CULT RES (Final) No Anaerobes Isolated 5 Days Normal [facility] Comment on above: Order Comment: Parac entesis FLuidNo: Do not add to previous draw Performed By: #### 9 9909, 66243 #### [facility] [address] [facility]. [address] *BODY FLUID CULTUREon 2020 *BODY FLUID CULTURE Clinical Report: (D) Specimen/Source: FLUID/PARACENTESIS FLUID Collected: 10/16/2020 13:15 Status: Final Last Updated: 10/21/2020 08:49 (1) No: Do not add to previous draw GRAM (Final) Polys Present No Bacteria Seen CYTOSPUN (Final) This Gram Stain was done on a cytocentrifuged specimen CULT RES (Final) No Growth Day 5 Normal [facility] Comment on above: Order Comment: No: D o not add to previous draw Performed By: #### 9 9909, 50729 #### [facility] [address] [facility] [place] [address], [facility] ALBUMIN FLUID MISCon 021 Albumin [Mass/Vol] g/dL Normal [facility] Comment on above: Result Comment: The reference range and other method performance specifications have not been established for this test in fluids. the test result should be integrated into the clinical context for interpretation. Performed By: #### 1 0070, 49140 #### [facility] [address] [place] [address], [facility] BASIC METABOLIC PANELon 09-29 Calcium [Mass/Vol] 8.0 mg/dL Low 8.6-10.3 [facility] Comment on above: Order Comment: No: D o not add to previous draw Performed By: #### 9 9909, 63145 #### [facility] [address] [place] [address], [place] Chloride [Moles/Vol] 106 mmol/L Normal 98-107 [facility] Comment on above: Order Comment: No: D o not add to previous draw Performed By: #### 9 9908, 61817 #### [facility] [address] [place] [address], [place] CO2 [Moles/Vol] 22 mmol/L Normal 21-31 [facility] Comment on above: Order Comment: No: D o not add to previous draw Performed By: #### 9 9908, 79133 #### [facility] [address] [place] [address], [place] Creatinine [Mass/Vol] 0.40 mg/dL Low 0.60-1.20 [facility] Comment on above: Order Comment: No: D o not add to previous draw Performed By: #### 9 9908, 97789 #### [facility] [address] [place] [address], [place] GFR/1.73 sq M.predicted among blacks MDRD (S/P/Bld) [Vol rate/Area] mL/min/{1.73_m2} Normal >60 [facility] Comment on above: Order Comment: No: D o not add to previous draw Performed By: #### 9 9908, 73900 #### [facility] [address] [place] [address], [place] GFR/1.73 sq M.predicted among non-blacks MDRD (S/P/Bld) [Vol rate/Area] mL/min/{1.73_m2} Normal >60 [facility] Comment on above: Order Comment: No: D o not add to previous draw Performed By: #### 9 9908, 94347 #### [facility] [address] [place] [address], [place] Glucose [Mass/Vol] 76 mg/dL Normal 70-100 [facility] Comment on above: Order Comment: No: D o not add to previous draw Performed By: #### 9 9908, 93045 #### [facility] [address] Potassium [Moles/Vol] 4.0 mmol/L Normal 3.5-5.1 [facility] Comment on above: Order Comment: No: D o not add to previous draw Performed By: #### 9 9908, 14333 #### [facility] [address] [facility] Sodium [Moles/Vol] 134 mmol/L Low 136-145 [facility] Comment on above: Order Comment: No: D o not add to previous draw Performed By: #### 9 9908, 82980 #### [facility] [address] [facility]. [address] Urea nitrogen [Mass/Vol] 6 mg/dL Low 7-25 [facility] Comment on above: Order Comment: No: D o not add to previous draw Performed By: #### 9 9908, 63936 #### [facility] [address] [facility]. [address] CBC W/DIFFon 10-16-2020 ABS IMM GRANS 0.0 10*3/uL Normal 0.0-0.2 [facility] Comment on above: Order Comment: No: D o not add to previous draw Performed By: #### 9 9909, 68441 #### [facility] [address] [facility] [place] [address], [facility] ABS NEUTROPHILS 4.3 10*3/uL Normal 1.6-7.6 [facility] Comment on above: Order Comment: No: D o not add to previous draw Performed By: #### 9 9908, 37198 #### [facility] [address] [facility] [place] [address], [facility] Basophils (Bld) [#/Vol] 0.1 10*3/uL Normal 0.0-0.2 [facility] Comment on above: Order Comment: No: D o not add to previous draw Performed By: #### 9 9908, 55278 #### [facility] [address] [place] [address], [facility] Basophils/100 WBC (Bld) 1.0 % Normal 0.0-1.0 [facility] Comment on above: Order Comment: No: D o not add to previous draw Performed By: #### 9 9908, 51726 #### [facility] [address] [place] [address], [facility] Eosinophils (Bld) [#/Vol] 0.2 10*3/uL Normal 0.0-0.5 [facility] Comment on above: Order Comment: No: D o not add to previous draw Performed By: #### 9 9908, 73945 #### [facility] [address] [place] [address], [facility] Eosinophils/100 WBC (Bld) 2.7 % Normal 0.0-6.0 [facility] Comment on above: Order Comment: No: D o not add to previous draw Performed By: #### 9 9908, 44881 #### [facility] [address] [place] [address], [facility] Erythrocyte distribution width (RBC) [Ratio] 13.4 % Normal 11.5-15.0 [facility] Comment on above: Order Comment: No: D o not add to previous draw Performed By: #### 9 9908, 40458 #### [facility] [address] [place] [address], [place] Hematocrit (Bld) [Volume fraction] 43.6 % Normal 36.0-45.0 [facility] Comment on above: Order Comment: No: D o not add to previous draw Performed By: #### 9 9908, 92767 #### [facility] [address] [place] [address], [place] Hemoglobin (Bld) [Mass/Vol] 14.4 g/dL Normal 12.0-15.0 [facility] Comment on above: Order Comment: No: D o not add to previous draw Performed By: #### 9 9908, 93138 #### [facility] [address] [place] [id number], [facility] IMM PLATELET FRAC 5.7 % Normal 0.8-6.3 [facility] Comment on above: Order Comment: No: D o not add to previous draw Performed By: #### 9 [id number], [id number] #### [facility] [address] [place] [address], [facility] IMMATURE GRANS 0.4 % Normal 0.0-1.0 [facility] Comment on above: Order Comment: No: D o not add to previous draw Performed By: #### 9 [id number], [id number] #### [facility] [address] [place] [id number], [facility] Lymphocytes (Bld) [#/Vol] 1.1 10*3/uL Low 1.2-4.0 [facility] Comment on above: Order Comment: No: D o not add to previous draw Performed By: #### 9 9908, 36308 #### [facility] [address] [facility] [address], [facility] Lymphocytes/100 WBC (Bld) 16.6 % Low 20.0-45.0 [facility] Comment on above: Order Comment: No: D o not add to previous draw Performed By: #### 9 9908, 59829 #### [facility] [address] [place] [id number], [facility] MCH (RBC) [Entitic mass] 32.6 pg Normal 27.0-33.0 [facility] Comment on above: Order Comment: No: D o not add to previous draw Performed By: #### 9 9908, 99961 #### [facility] [address] [place] [address], [facility] MCHC (RBC) [Mass/Vol] 33.0 g/dL Normal 32.0-35.0 [facility] Comment on above: Order Comment: No: D o not add to previous draw Performed By: #### 9 9908, 15461 #### [facility] [address] [facility] [place] [address], [facility] MCV (RBC) [Entitic vol] 98.6 fL High 82.0-98.0 [facility] Comment on above: Order Comment: No: D o not add to previous draw Performed By: #### 9 9908, 07477 #### [facility] [address] [place] [address], [facility] Monocytes (Bld) [#/Vol] 0.9 10*3/uL Normal 0.1-1.0 [facility] Comment on above: Order Comment: No: D o not add to previous draw Performed By: #### 9 9908, 67965 #### [facility] [address] [facility]. [address] MONOS 14.1 % High 5.0-12.0 [facility] Comment on above: Order Comment: No: D o not add to previous draw Performed By: #### 9 9908, 34338 #### [facility] [address] [facility] [place] [address], [facility] Neutrophils/100 WBC (Bld) 65.2 % Normal 40.0-72.0 [facility] Comment on above: Order Comment: No: D o not add to previous draw Performed By: #### 9 9908, 27707 #### [facility] [address] [facility] [place] [address], [facility] Nucleated RBC/100 WBC (Bld) [Ratio] 0 % Normal 0-0 [facility] Comment on above: Order Comment: No: D o not add to previous draw Performed By: #### 9 9908, 27225 #### [facility] [address] [facility] [place] [address], [facility] PLAT CNT 109 10*3/uL Low 150-400 [facility] Comment on above: Order Comment: No: D o not add to previous draw Performed By: #### 9 9909, 85221 #### [facility] [address] [place] [address], [facility] RBC (Bld) [#/Vol] 4.42 10*6/uL Normal 3.80-5.00 [facility] Comment on above: Order Comment: No: D o not add to previous draw Performed By: #### 9 9909, 83317 #### [facility] [address] [place] [address], [facility] WBC (Bld) [#/Vol] 6.67 10*3/uL Normal 4.00-10.60 [facility] Comment on above: Order Comment: No: D o not add to previous draw Performed By: #### 9 9909, 81999 #### [facility] [address] [facility] [place] [address], [facility] CT ABDOMEN AND PELVIS W IV C [facility] 10-16-2020 CT ABDOMEN AND PELVIS W IV CONTRAST [facility] Department of Radiology [address] [place] [id number] Patient Name: TERESA LYLE : 1960 Sex: F Age: Race: NA Pt. Location: [facility] Patient Status: E Ordered Date: 10/15/2020 8:45:00 PM Completed Date: 10/15/2020 10:01 PM Requesting Provider: OPAL MSOES Attending Provider: JAISON JOHNS Report Copy To: [...] diameter. Electronically signed: Duran Archibald. Transcribed by: [email or web address], User Resident: Electronically Signed by: DURAN ARCHIBALD @ 10/15/2020 10:16 PM Normal [facility] Comment on above: Order Comment: Obstr uction FLUID CELL COUNTon 1 Lymphocytes/100 WBC (Bld) 19 % Normal [facility] Comment on above: Order Comment: Parac entesis FLuidNo: Do not add to previous draw Performed By: #### 9 9909, 80866 #### [facility] [address] [place] [address], [facility] MESOTHELIAL 65 % Normal [facility] Comment on above: Order Comment: Parac entesis FLuidNo: Do not add to previous draw Performed By: #### 9 9908, 23557 #### [facility] [address] [place] [address], [place] OTHER F1 Diff done by cytospin Normal [facility] Comment on above: Order Comment: Parac entesis FLuidNo: Do not add to previous draw Performed By: #### 9 9908, 12250 #### [facility] [address] [place] [address], [place] OTHER F3 Checked by Berta Urbina M.D. Normal [facility] Comment on above: Order Comment: Parac entesis FLuidNo: Do not add to previous draw Result Comment: Resu lt changed by JIMENA on 10/17/2020 10:09. The previous value was Preliminary report; verified report to follow. Performed By: #### 9 9908, 81502 #### [facility] [address] [place] [address], [place] RBC 2553 RBC/uL Normal [facility] Comment on above: Order Comment: Parac entesis FLuidNo: Do not add to previous draw Performed By: #### 9 9908, 22243 #### [facility] [address] [place] [address], [place] SEGS 16 % Normal [facility] Comment on above: Order Comment: Parac entesis FLuidNo: Do not add to previous draw Performed By: #### 9 9908, 02663 #### [facility] [address] [place] [address], [place] SOURCE Paracentesis Normal [facility] Comment on above: Order Comment: Parac entesis FLuidNo: Do not add to previous draw Performed By: #### 9 9908, 61128 #### [facility] [address] [place] [address], [place] TOTAL VOLUME 1000 ml Normal [facility] Comment on above: Order Comment: Parac entesis FLuidNo: Do not add to previous draw Performed By: #### 9 9909, 27735 #### [facility] [address] [place] [address], [facility] WBC 372 WBC/uL Normal [facility] Comment on above: Order Comment: Parac entesis FLuidNo: Do not add to previous draw Result Comment: Some reference interval(s) and other method performance specifications have not been established for analytes on this body fluid. The test result must be integrated into the clinical context for interpretation. Performed By: #### 9 9909, 58786 #### [facility] [address] [place] [id number], [facility] LDH FLUIDon 10-16-2020 LDH 74 Units/L Normal [facility] Comment on above: Order Comment: No: D o not add to previous draw Result Comment: The reference range and other method performance specifications have not been established for this test in fluids. the test result should be integrated into the clinical context for interpretation. Performed By: #### 1 0070, 92086 #### [facility] [address] [place] [address], [facility] LIVER BATTERYon 10-16-2020 Albumin [Mass/Vol] 2.4 g/dL Low 3.5-5.7 [facility] Comment on above: Order Comment: No: D o not add to previous draw Performed By: #### 9 99, 73826 #### [facility] [address] [place] [address], [facility] ALKALINE PHOSPH 160 IU/L High 34-104 [facility] Comment on above: Order Comment: No: D o not add to previous draw Performed By: #### 9 9909, 77720 #### [facility] [address] [place] [id number], [facility] ALT [Catalytic activity/Vol] 10 U/L Normal 7-52 [facility] Comment on above: Order Comment: No: D o not add to previous draw Performed By: #### 9 99, 48856 #### [facility] [address] [place] [address], [facility] AST [Catalytic activity/Vol] 25 U/L Normal 13-39 [facility] Comment on above: Order Comment: No: D o not add to previous draw Performed By: #### 9 99, 76220 #### [facility] [address] [place] [address], [place] Bilirubin [Mass/Vol] 1.0 mg/dL Normal 0.3-1.0 [facility] Comment on above: Order Comment: No: D o not add to previous draw Performed By: #### 9 9908, 08347 #### [facility] [address] [place] [address], [facility] Bilirubin.direct [Mass/Vol] 0.4 mg/dL High 0.0-0.2 [facility] Comment on above: Order Comment: No: D o not add to previous draw Performed By: #### 9 9908, 30811 #### [facility] [address] [place] [address], [facility] Protein [Mass/Vol] 5.8 g/dL Low 6.0-8.3 [facility] Comment on above: Order Comment: No: D o not add to previous draw Performed By: #### 9 9909, 36044 #### [facility] [address] [place] [address], [place] MAGNESIUM BLOODon 10-16-2020 Magnesium [Mass/Vol] 1.6 mg/dL Low 1.9-2.7 [facility] Comment on above: Order Comment: No: D o not add to previous draw Performed By: #### 9 9908, 16637 #### [facility] [address] [place] [address], [place] PHOSPHORUS BLOODon Phosphate [Mass/Vol] 3.9 mg/dL Normal 2.5-5.0 [facility] Comment on above: Order Comment: No: D o not add to previous draw Performed By: #### 9 9908, 25495 #### [facility] [address] [place] [address], [place] POC GLUCOSE LABon 10-16-2020 Glucose [Mass/Vol] 268 mg/dL High 70-100 [facility] Comment on above: Performed By: #### 1 69, 61308 #### [facility] [address] [place] [address], [place] Glucose [Mass/Vol] 142 mg/dL High 70-100 [facility] Comment on above: Performed By: #### 9 9908, 56848 #### [facility] [address] [place] [address], [place] Glucose [Mass/Vol] 91 mg/dL Normal 70-100 [facility] Comment on above: Performed By: #### 1 69, 29447 #### [facility] [address] [place] [address], [place] Glucose [Mass/Vol] 77 mg/dL Normal 70-100 [facility] Comment on above: Order Comment: No: D o not add to previous draw Performed By: #### 1 69, 97852 #### [facility] [address] [place] [address], [place] Glucose [Mass/Vol] 74 mg/dL Normal 70-100 [facility] Comment on above: Performed By: #### 1 69, 66297 #### [facility] [address] [place] [address], [place] T PROT FLUIDon 10-16-2020 Protein [Mass/Vol] g/dL Normal [facility] Comment on above: Result Comment: The reference range and other method performance specifications have not been established for this test in fluids. the test result should be integrated into the clinical context for interpretation. Performed By: #### 1 69, 41132 #### [facility] [address] [place] [address], [place] US PARACENTESISon 10-16-2020 US PARACENTESIS [facility] Department of Radiology [address] [place] [address] Patient Name: TERESA LYLE : 1960 Sex: F Age: Race: NA Pt. Location: [id number] Patient Status: I Ordered Date: 10/16/2020 11:45:00 AM Completed Date: 10/16/2020 02:04 PM Requesting Provider: MATT GIBBONS Attending Provider: ADALEBRTO VOGEL Report Copy To: Signs & Symptoms: [...] complications Electronically signed: Ike Rodriguez Transcribed by: [email or web address], User Resident: Electronically Signed by: IKE MARTINObey @ 10/16/2020 02:24 PM Normal [facility] Comment on above: Order Comment: No: D o not add to previous draw APTTon 10-15-2020 aPTT Coag (Bld) [Time] 40.4 s High 25.0-35.0 [facility] Comment on above: Result Comment: ALL RESULTS [...] THIS PURPOSE. Performed By: #### 1 0070, 07325 #### [facility] [address] [place] [address], [facility] BASIC METABOLIC PANELon 09-29 Calcium [Mass/Vol] 8.3 mg/dL Low 8.6-10.3 [facility] Comment on above: Performed By: #### 9 9909, 08212 #### [facility] [address] [place] [address], [facility] Chloride [Moles/Vol] 100 mmol/L Normal 98-107 [facility] Comment on above: Performed By: #### 9 9909, 97936 #### [facility] [address] [place] [id number], [facility] CO2 [Moles/Vol] 24 mmol/L Normal 21-31 [facility] Comment on above: Performed By: #### 9 9909, 48049 #### [facility] [address] [place] [id number], [facility] Creatinine [Mass/Vol] 0.47 mg/dL Low 0.60-1.20 [facility] Comment on above: Performed By: #### 9 9909, 38910 #### [facility] [address] [place] [address], [facility] GFR/1.73 sq M.predicted among blacks MDRD (S/P/Bld) [Vol rate/Area] mL/min/{1.73_m2} Normal >60 [facility] Comment on above: Performed By: #### 9 9908, 80875 #### [facility] [address] [place] [address], [place] GFR/1.73 sq M.predicted among non-blacks MDRD (S/P/Bld) [Vol rate/Area] mL/min/{1.73_m2} Normal >60 [facility] Comment on above: Performed By: #### 9 9908, 07446 #### [facility] [address] [place] [address], [facility] Glucose [Mass/Vol] 164 mg/dL High 70-100 [facility] Comment on above: Performed By: #### 9 9908, 81459 #### [facility] [address] [facility] [place] [address], [facility] Potassium [Moles/Vol] 4.1 mmol/L Normal 3.5-5.1 [facility] Comment on above: Performed By: #### 9 9908, 37803 #### [facility] [address] [place] [address], [place] Sodium [Moles/Vol] 129 mmol/L Low 136-145 [facility] Comment on above: Performed By: #### 9 9908, 17499 #### [facility] [address] [place] [address], [place] Urea nitrogen [Mass/Vol] 7 mg/dL Normal 7-25 [facility] Comment on above: Performed By: #### 9 9908, 50339 #### [facility] [address] [place] [address], [place] CBC W/DIFFon 10-15-2020 ABS IMM GRANS 0.0 10*3/uL Normal 0.0-0.2 [facility] Comment on above: Performed By: #### 9 9908, 85179 #### [facility] [address] [place] [address], [facility] ABS NEUTROPHILS 5.4 10*3/uL Normal 1.6-7.6 [facility] Comment on above: Performed By: #### 9 9908, 00891 #### [facility] [address] [place] [address], [facility] Basophils (Bld) [#/Vol] 0.1 10*3/uL Normal 0.0-0.2 [facility] Comment on above: Performed By: #### 9 9908, 29642 #### [facility] [address] [place] [address], [facility] Basophils/100 WBC (Bld) 0.8 % Normal 0.0-1.0 [facility] Comment on above: Performed By: #### 9 9908, 91165 #### [facility] [address] [facility] [place] [address], [facility] Eosinophils (Bld) [#/Vol] 0.2 10*3/uL Normal 0.0-0.5 [facility] Comment on above: Performed By: #### 9 9908, 29202 #### [facility] [address] [facility] [place] [address], [facility] Eosinophils/100 WBC (Bld) 2.2 % Normal 0.0-6.0 [facility] Comment on above: Performed By: #### 9 9908, 90810 #### [facility] [address] [place] [address], [facility] Erythrocyte distribution width (RBC) [Ratio] 13.2 % Normal 11.5-15.0 [facility] Comment on above: Performed By: #### 9 9908, 16159 #### [facility] [address] [place] [address], [facility] Hematocrit (Bld) [Volume fraction] 43.0 % Normal 36.0-45.0 [facility] Comment on above: Performed By: #### 9 9908, 55173 #### [facility] [address] [facility] [place] [address], [facility] Hemoglobin (Bld) [Mass/Vol] 14.5 g/dL Normal 12.0-15.0 [facility] Comment on above: Performed By: #### 9 9908, 95713 #### [facility] [address] [facility] IMMATURE GRANS 0.3 % Normal 0.0-1.0 [facility] Comment on above: Performed By: #### 9 9908, 91706 #### [facility] [address] [facility]. [address] Lymphocytes (Bld) [#/Vol] 1.1 10*3/uL Low 1.2-4.0 [facility] Comment on above: Performed By: #### 9908, 22419 #### [facility] [address] [facility]. [address] Lymphocytes/100 WBC (Bld) 14.5 % Low 20.0-45.0 [facility] Comment on above: Performed By: #### 9908, 41668 #### [facility] [address] [facility] [place] [address], [facility] MCH (RBC) [Entitic mass] 32.5 pg Normal 27.0-33.0 [facility] Comment on above: Performed By: #### 9 9908, 78095 #### [facility] [address] [facility] [place] [address], [facility] MCHC (RBC) [Mass/Vol] 33.7 g/dL Normal 32.0-35.0 [facility] Comment on above: Performed By: #### 9908, 05039 #### [facility] [address] [facility]. [address] MCV (RBC) [Entitic vol] 96.4 fL Normal 82.0-98.0 [facility] Comment on above: Performed By: #### 9 9908, 00161 #### [facility] [address] [facility] [place] [address], [facility] Monocytes (Bld) [#/Vol] 0.9 10*3/uL Normal 0.1-1.0 [facility] Comment on above: Performed By: #### 9 9908, 32675 #### [facility] [address] [facility]. [address] MONOS 11.3 % Normal 5.0-12.0 [facility] Comment on above: Performed By: #### 9 9908, 92824 #### [facility] [address] [facility]. [address] Neutrophils/100 WBC (Bld) 70.9 % Normal 40.0-72.0 [facility] Comment on above: Performed By: #### 9 9908, 69559 #### [facility] [address] [facility]. [address] Nucleated RBC/100 WBC (Bld) [Ratio] 0 % Normal 0-0 [facility] Comment on above: Performed By: #### 9 9908, 29830 #### [facility] [address] [facility] [place] [address], [facility] PLAT CNT 108 10*3/uL Low 150-400 [facility] Comment on above: Performed By: #### 9 9908, 22793 #### [facility] [address] [facility] [place] [address], [facility] RBC (Bld) [#/Vol] 4.46 10*6/uL Normal 3.80-5.00 [facility] Comment on above: Performed By: #### 9 9908, 16365 #### [facility] [address] [facility] [place] [address], [facility] WBC (Bld) [#/Vol] 7.63 10*3/uL Normal 4.00-10.60 [facility] Comment on above: Performed By: #### 9 9908, 09089 #### [facility] [address] [facility] [place] [address], [facility] LACTATE WITH REFLEXon 2020 Lactate [Moles/Vol] 0.9 mmol/L Normal .5-2.2 [facility] Comment on above: Performed By: #### 3 1414 #### [facility] [address] [facility] [place] [address], [facility] LIVER BATTERYon 10-15-2020 Albumin [Mass/Vol] 2.7 g/dL Low 3.5-5.7 [facility] Comment on above: Performed By: #### 9 9908, 85468 #### [facility] [address] [place] [address], [facility] ALKALINE PHOSPH 175 IU/L High 34-104 [facility] Comment on above: Performed By: #### 9 9908, 13412 #### [facility] [address] [facility] [place] [address], [facility] ALT [Catalytic activity/Vol] 12 U/L Normal 7-52 [facility] Comment on above: Performed By: #### 9 9908, 35362 #### [facility] [address] [place] [address], [facility] AST [Catalytic activity/Vol] 28 U/L Normal 13-39 [facility] Comment on above: Performed By: #### 9 9908, 24097 #### [facility] [address] [place] [address], [facility] Bilirubin [Mass/Vol] 1.2 mg/dL High 0.3-1.0 [facility] Comment on above: Performed By: #### 9 9908, 46356 #### [facility] [address] [place] [address], [facility] Bilirubin.direct [Mass/Vol] 0.4 mg/dL High 0.0-0.2 [facility] Comment on above: Performed By: #### 9 9909, 36087 #### [facility] [address] [place] [address], [facility] Protein [Mass/Vol] 6.4 g/dL Normal 6.0-8.3 [facility] Comment on above: Performed By: #### 9 9909, 57047 #### [facility] [address] [facility] POC SARS COV2 ANTIGEN NEGATI VEon 10-15-2020 POC SARS COV2 ANTIGEN NEG Negative Normal NEGATIVE [facility] Comment on above: Result Comment: Nega tive [...] signs and symptoms consistent with COVID-19. The [employer] COVID-19 Ag Card is a lateral flow [...] of Accreditation. Performed By: #### 1 0070, 35614 #### [facility] [address] [place] [address], [facility] PROTHROMBIN TIMEon INR Coag (PPP) [Relative time] 1.13 {INR} Normal 0.91-1.16 [facility] Comment on above: Result Comment: ACCC P [...] CHEST 1995;[id number]. Performed By: #### 1 69, 49225 #### [facility] [address] [place] [address], [facility] PT Coag (PPP) [Time] 14.6 s Normal 12.3-14.8 [facility] Comment on above: Result Comment: ALL RESULTS MUST BE INTERPRETED WITH RESPECT TO BLOOD DRAWING ARTIFACT OR DILUTION ERROR OF ANTICOAGULANT AT THE TIME OF SAMPLING. Performed By: #### 1 007, 69715 #### [facility] [address] [place] [id number], [facility] TYPE AND SCREENon 10-15-2020 ABO INTERPRETATION A Normal [facility] Comment on above: Performed By: #### 1 69, 51720 #### [facility] [address] [place] [address], [place] RH INTERPRETATION Positive Normal [facility] Comment on above: Performed By: #### 1 007, [id number] #### [facility] [address] [place] [address], [facility] URINALYSIS REFLEXon 10-16-19 21 Appearance (U) CLEAR Normal CLEAR [facility] Comment on above: Order Comment: Crite libby for reflexing a culture was not met. Please call the lab at [phone] within 24 hours of collection time if culture is needed Performed By: #### 3 [id number] #### [facility] [address] [place] [address], [place] Bilirubin Ql (U) Negative Normal NEGATIVE [facility] Comment on above: Order Comment: Crite libby for reflexing a culture was not met. Please call the lab at [phone] within 24 hours of collection time if culture is needed Performed By: #### 3 [id number] #### [facility] [address] [place] [address], [place] Color (U) YELLOW Normal YELLOW [facility] Comment on above: Order Comment: Crite libby for reflexing a culture was not met. Please call the lab at [phone] within 24 hours of collection time if culture is needed Performed By: #### 3 [id number] #### [facility] [address] [facility] [place] [address], [place] Glucose Ql (U) Negative Normal NEGATIVE [facility] Comment on above: Order Comment: Crite libby for reflexing a culture was not met. Please call the lab at [phone] within 24 hours of collection time if culture is needed Performed By: #### 3 [id number] #### [facility] [address] [place] [address], [place] Hemoglobin Ql (U) Negative Normal NEGATIVE [facility] Comment on above: Order Comment: Crite libby for reflexing a culture was not met. Please call the lab at [phone] within 24 hours of collection time if culture is needed Performed By: #### 3 [id number] #### [facility] [address] [place] [address], [place] KETONE Negative Normal NEGATIVE [facility] Comment on above: Order Comment: Crite libby for reflexing a culture was not met. Please call the lab at [phone] within 24 hours of collection time if culture is needed Performed By: #### 3 0965 #### [facility] [address] [place] [address], [place] LEUK MINDA Negative Normal NEGATIVE [facility] Comment on above: Order Comment: Crite libby for reflexing a culture was not met. Please call the lab at [phone] within 24 hours of collection time if culture is needed Performed By: #### 3 0965 #### [facility] [address] [place] [address], [place] MICRO NOT DONE Normal [facility] Comment on above: Order Comment: Crite libby for reflexing a culture was not met. Please call the lab at [phone] within 24 hours of collection time if culture is needed Result Comment: Micr oscopics not performed on urines with negative chemical reactions unless requested in original order Performed By: #### 3 [id number] #### [facility] [address] [facility] [place] [address], [place] Nitrite Ql (U) Negative Normal NEGATIVE [facility] Comment on above: Order Comment: Crite libby for reflexing a culture was not met. Please call the lab at [phone] within 24 hours of collection time if culture is needed Performed By: #### 3 [id number] #### [facility] [address] [facility] [place] [address], [facility] pH (U) 8.0 [pH] Normal 5.0-8.0 [facility] Comment on above: Order Comment: Crite libby for reflexing a culture was not met. Please call the lab at [phone] within 24 hours of collection time if culture is needed Performed By: #### 3 0965 #### [facility] [address] [place] [address], [place] Protein Ql (U) Negative Normal NEGATIVE [facility] Comment on above: Order Comment: Crite libby for reflexing a culture was not met. Please call the lab at [phone] within 24 hours of collection time if culture is needed Performed By: #### 3 0965 #### [facility] [address] [place] [address], [facility] SPEC GRAV 1.005 Low 1.015-1.02 0 [facility] Comment on above: Order Comment: Crite libby for reflexing a culture was not met. Please call the lab at [phone] within 24 hours of collection time if culture is needed Performed By: #### 3 [id number] #### [facility] [address] [place] [address], [facility] AMYLASEon 10-02-2020 Amylase [Catalytic activity/Vol] 34 U/L Normal 31-[address] [facility] Comment on above: Performed By: #### C BC #### [facility] [address] [place] [address] Edy Mari CBC AUTO DIFFon 10-02-2020 BASO # 0.1 103/ul Normal 0.0-0.1 [facility] Comment on above: Performed By: #### C BC #### [facility] [address] [place] [address] Edy Mari Basophils/100 WBC (Bld) 0.5 % Normal 0.2-2.0 [facility] Comment on above: Performed By: #### C BC #### [facility] [address] [place] [address] Edy Mari EO # 0.1 103/ul Normal 0.0-0.7 [facility] Comment on above: Performed By: #### C BC #### [facility] [address] [place] [address] Edy Mari Eosinophils/100 WBC (Bld) 0.6 % Critically low 0.9-7.[address] [facility] Comment on above: Performed By: #### C BC #### [facility] [address] [place] [address] Edy Mari Erythrocyte distribution width (RBC) [Ratio] 13.7 % Normal 11.0-15.0 [facility] Comment on above: Performed By: #### C BC #### [facility] [address] [place] [address] Edy Mari Hematocrit (Bld) [Volume fraction] 48.5 % Critically high 36.0-48.0 [facility] Comment on above: Performed By: #### C BC #### [facility] [address] [place] [address] Edy Guerra Hemoglobin (Bld) [Mass/Vol] 16.1 g/dL Critically high 12.0-16.0 [facility] Comment on above: Performed By: #### C BC #### [facility] [address] [place] [address] Edy Guerra IG # 0.03 10e3/ul Normal 0.00-0.03 [facility] Comment on above: Performed By: #### C BC #### [facility] [address] [place] [address] Edy Guerra IG % 0.3 % Normal 0.0-0.5 [facility] Comment on above: Performed By: #### C BC #### [facility] [address] [place] [address] Edy Guerra LYMPH # 0.9 103/ul Critically low 1.2-3.8 The [facility] Comment on above: Performed By: #### C BC #### [facility] [address] [place] [address] Edy Guerra Lymphocytes/100 WBC (Bld) 9.2 % Critically low 20.5-60.0 [facility] Comment on above: Performed By: #### C BC #### [facility] [address] [place] [address] Edy Guerra MANUAL DIFF REQ NO Normal [facility] [place] Comment on above: Performed By: #### C BC #### [facility] [address] [place], [place] [id number] Edy Guerra MCH (RBC) [Entitic mass] 32.3 pg Normal 26.7-34.0 [facility] Comment on above: Performed By: #### C BC #### [facility] [address] [place] [address] Edy Guerra MCHC (RBC) [Mass/Vol] 33.2 g/dL Normal 29.9-35.2 [facility] Comment on above: Performed By: #### C BC #### [facility] [address] [id number] Edy Guerra MCV (RBC) [Entitic vol] 97.4 fL Normal 81.0-99.0 [facility] Comment on above: Performed By: #### C BC #### [facility] [address] [id number] Edy Guerra MONO # 0.8 103/ul Normal 0.3-0.8 [facility] Comment on above: Performed By: #### C BC #### [facility] [address] [id number] Edy Guerra Monocytes/100 WBC (Bld) 8.1 % Normal 1.7-12.0 [facility] Comment on above: Performed By: #### C BC #### [facility] [address] [id number] Edy Salmeronen NEUT # 8.0 103/ul Critically high 1.4-6.5 [facility] [place] Comment on above: Performed By: #### C BC #### [facility] [address] [place], [place] [id number] Edy Guerra Neutrophils/100 WBC (Bld) 81.3 % Critically high 43.0-75.0 [facility] Comment on above: Performed By: #### C BC #### [facility] [address] [id number] Edy Guerra Platelet mean volume (Bld) [Entitic vol] 12.7 fL Normal 9.5-13.5 [facility] Comment on above: Performed By: #### C BC #### [facility] [address] [id number] Edyjax Salmeronen PLT 85 103/ul Critically low 150-450 The [facility] Comment on above: Performed By: #### C BC #### [facility] [address] [id number] Edy Mari RBC 4.98 106/ul Normal 4.20-5.40 [facility] Comment on above: Performed By: #### C BC #### [facility] [address] [place], [place] [address] Edy Guerra WBC 9.8 103/ul Normal 4.0-11.0 [facility] Comment on above: Performed By: #### C BC #### [facility] [address] [place], [place] [address] ABD/PELV W CONon 10-03-19 [...] by: JAMES ALEX Date: 2020-10-02 15:36 Normal [facility] LACTATE/LACTIC ACIDon 2020 Lactate [Moles/Vol] 1.7 mmol/L Normal 0.7-2.0 [facility] Comment on above: Performed By: #### C BC #### [facility] [address] [place], [place] [id number] Edy Mari LIPASEon 10-02-2020 Lipase [Catalytic activity/Vol] 56.0 U/L Normal 23.0-300.0 [facility] Comment on above: Performed By: #### C BC #### [facility] [address] [place], [place] [id number] Edy Mari LIVER PROFILEon 10-02-2020 Albumin [Mass/Vol] 2.6 g/dL Critically low 3.5-5.0 [facility] Comment on above: Performed By: #### C BC #### [facility] [address] [place], [place] [id number] Edy Mari Albumin/Globulin [Mass ratio] 0.6 {ratio} Normal [facility] Comment on above: Performed By: #### C BC #### [facility] [address] [place], [place] [id number] Edy Mari ALP [Catalytic activity/Vol] 203 U/L Critically high 38-126 [facility] Comment on above: Performed By: #### C BC #### [facility] [address] [place], [place] [id number] Edy Mari ALT [Catalytic activity/Vol] 21 U/L Normal 9-52 [facility] Comment on above: Performed By: #### C BC #### [facility] [address] [place], [place] [address] Edy Mari AST [Catalytic activity/Vol] 43 U/L Critically high 14-36 [facility] Comment on above: Performed By: #### C BC #### [facility] [address] [place] [address] Edy Mari BILI, CONJUGATED 0.5 mg/dL Critically high 0.0-0.3 [facility] Comment on above: Performed By: #### C BC #### [facility] [address] [place], [place] [id number] Edy Mari Bilirubin [Mass/Vol] 1.5 mg/dL Critically high 0.2-1.3 [facility] Comment on above: Performed By: #### C BC #### [facility] [address] [place], [place] [id number] Edy Mari Globulin (S) [Mass/Vol] 4.7 g/dL Normal [facility] Comment on above: Performed By: #### C BC #### [facility] [address] [place], [place] [id number] Edy Mari Protein [Mass/Vol] 7.3 g/dL Normal 6.1-8.2 [facility] Comment on above: Performed By: #### C BC #### [facility] [address] [place], [place] [id number] Edy Mari PROF CHEM 8 (BAS METB)on Anion gap [Moles/Vol] 15.3 mmol/L Normal [facility] Comment on above: Performed By: #### C BC #### [facility] [address] [place], [place] [id number] Edy Mari Calcium [Mass/Vol] 8.5 mg/dL Normal 8.4-10.2 [facility] Comment on above: Performed By: #### C BC #### [facility] [address] [place], [place] [id number] Edy Mari Chloride [Moles/Vol] 100 mmol/L Normal 98-107 [facility] Comment on above: Performed By: #### C BC #### [facility] [address] [place], [place] [id number] Edy Mari CO2 [Moles/Vol] 23.5 mmol/L Normal 22.0-30.0 [facility] Comment on above: Performed By: #### C BC #### [facility] [address] [place], [place] [address] Edy Mari Creatinine [Mass/Vol] 0.74 mg/dL Normal 0.52-1.04 [facility] Comment on above: Performed By: #### C BC #### [facility] [address] [place], [place] [address] Edy Mari EGFR-AF RWANDAN >60 Normal >=60 [facility] Comment on above: Performed By: #### C BC #### [facility] [address] [id number] Edy Mari EGFR-NON AF RWANDAN >60 Normal >=60 [facility] Comment on above: Performed By: #### C BC #### [facility] [address] [place], [place] [id number] Edy Mari Glucose [Mass/Vol] 245 mg/dL Critically high 74-106 [facility] Comment on above: Performed By: #### C BC #### [facility] [address] [place], [place] [address] Edy Mari Potassium [Moles/Vol] 4.8 mmol/L Normal 3.4-5.0 [facility] Comment on above: Performed By: #### C BC #### [facility] [address] [place], [place] [phone] Edy Mari Sodium [Moles/Vol] 134 mmol/L Critically low 137-145 Th [facility] Comment on above: Performed By: #### C BC #### [facility] [address] [place] [address] Edy Mari Urea nitrogen [Mass/Vol] 13.0 mg/dL Normal 7.0-17.0 [facility] Comment on above: Performed By: #### C BC #### [facility] [address] [place], [place] [address] Edy Mari Urea nitrogen/Creatinine [Mass ratio] 17.6 mg/mg Normal [facility] Comment on above: Performed By: #### C BC #### [facility] [address] [place] [address] Edy Guerra PROTIMEon 10-02-2020 INR Coag (PPP) [Relative time] 1.14 {INR} Normal [facility] Comment on above: Performed By: #### P TT, PT #### [facility] [address] [place] [address] Eyd Guerra INR GUIDELINES SEE BELOW Normal The [facility] Comment on above: Result Comment: GABY RED INR: 2.0 - 3.0 CONDITIONS NOT LISTED BELOW 2.5 - 3.5 FOR PROSTHETIC HEART VALVE REPLACEMENT 2.5 - 3.5 RECURRENT THROMBOSIS Performed By: #### P TT, PT #### [facility] [address] [place] [address] Edy Guerra PT Coag (PPP) [Time] 12.2 s Critically high 9.0-11.[address] [facility] Comment on above: Performed By: #### P TT, PT #### [facility] [address] [place] [address] Edy Guerra PTTon 10-02-2020 aPTT Coag (Bld) [Time] 36.0 s Normal 22.3-36.[address] [facility] Comment on above: Performed By: #### P TT, PT #### [facility] [address] [place] [address] Edy Mari CBC AUTO DIFFon 09-04-2020 BASO # 0.0 103/ul Normal 0.0-0.[address] [facility] Comment on above: Performed By: #### C BC #### [facility] [address] [place] [address] Edy Guerra Basophils/100 WBC (Bld) 0.5 % Normal 0.2-2.[address] [facility] Comment on above: Performed By: #### C BC #### [facility] [address] [place] [address] Edy Mari EO # 0.2 103/ul Normal 0.0-0.[address] [facility] Comment on above: Performed By: #### C BC #### [facility] [address] [id number] Edy Mari Eosinophils/100 WBC (Bld) 2.0 % Normal 0.9-7.[address] [facility] Comment on above: Performed By: #### C BC #### [facility] [address] [place] [address] Edy Mari Erythrocyte distribution width (RBC) [Ratio] 14.1 % Normal 11.0-15.[address] [facility] Comment on above: Performed By: #### C BC #### [facility] [address] [place] [address] Edy Mari Hematocrit (Bld) [Volume fraction] 42.7 % Normal 36.0-48.[address] [facility] Comment on above: Performed By: #### C BC #### [facility] [address] [place] [address] Edy Mari Hemoglobin (Bld) [Mass/Vol] 14.7 g/dL Normal 12.0-16.[address] [facility] Comment on above: Performed By: #### C BC #### [facility] [address] [place] [address] Edy Mari IG # 0.02 10e3/ul Normal 0.00-0.[address] [facility] Comment on above: Performed By: #### C BC #### [facility] [address] [place] [address] Edy Mari IG % 0.2 % Normal 0.0-0.[address] [facility] Comment on above: Performed By: #### C BC #### [facility] [address] [place] [address] Edy Mari LYMPH # 0.9 103/ul Critically low 1.2-3.8 The [facility] Comment on above: Performed By: #### C BC #### [facility] [address] [place] [address] Edy Mari Lymphocytes/100 WBC (Bld) 10.9 % Critically low 20.5-60.[address] [facility] Comment on above: Performed By: #### C BC #### [facility] [address] [place] [address] Edy Guerra MANUAL DIFF REQ NO Normal [facility] Comment on above: Performed By: #### C BC #### [facility] [address] [address] Edy Guerra MCH (RBC) [Entitic mass] 33.1 pg Normal 26.7-34.0 [facility] Comment on above: Performed By: #### C BC #### [facility] [address] [place] [address] Edy Guerra MCHC (RBC) [Mass/Vol] 34.4 g/dL Normal 29.9-35.[address] [facility] Comment on above: Performed By: #### C BC #### [facility] [address] [place] [address] Edy Guerra MCV (RBC) [Entitic vol] 96.2 fL Normal 81.0-99.0 [facility] Comment on above: Performed By: #### C BC #### [facility] [address] [place] [address] Edy Guerra MONO # 0.7 103/ul Normal 0.3-0.[address] [facility] Comment on above: Performed By: #### C BC #### [facility] [address] [place] [address] Edy Guerra Monocytes/100 WBC (Bld) 8.1 % Normal 1.7-12.[address] [facility] Comment on above: Performed By: #### C BC #### [facility] [address] [place] [address] Edy Guerra NEUT # 6.8 103/ul Critically high 1.4-6.5 The [facility] Comment on above: Performed By: #### C BC #### [facility] [address] [place], [place] [id number] Edy Guerra Neutrophils/100 WBC (Bld) 78.3 % Critically high 43.0-75.0 [facility] Comment on above: Performed By: #### C BC #### [facility] [address] [place] [address] Edyjax Guerra Platelet mean volume (Bld) [Entitic vol] 12.1 fL Normal 9.5-13.5 [facility] Comment on above: Performed By: #### C BC #### [facility] [address] [place], [place] [address] Edy Guerra PLT 80 103/ul Critically low 150-450 [facility] Comment on above: Performed By: #### C BC #### [facility] [address] [place], [place] [address] Edy Guerra RBC 4.44 106/ul Normal 4.20-5.40 [facility] Comment on above: Performed By: #### C BC #### [facility] [address] [place], [place] [address] Edy Guerra WBC 8.6 103/ul Normal 4.0-11.0 [facility] Comment on above: Performed By: #### C BC #### [facility] [address] [place], [place] [address] ABD/PELV W CONon 09-05-19 [...] JENA MELARA Date: 2020-09-04 03:[address] [facility] ER URINE PROFILEon 1 Bilirubin Ql (U) Negative Normal NEGATIVE [facility] Comment on above: Performed By: #### C MP #### [facility] [address] [place] [address] Edy Mari Clarity (U) CLEAR Normal CLEAR [facility] Comment on above: Performed By: #### C MP #### [facility] [address] [place] [address] Edy Mari Color (U) LT. YELLOW Normal YELLOW [facility] Comment on above: Performed By: #### C MP #### [facility] [address] [place] [address] Edy Mari ERUAHD A micrscopic examina tion will be performed if indicated. Normal [facility] Comment on above: Performed By: #### C MP #### [facility] [address] [place] [address] Edy Mari Glucose Ql (U) 250 mg/dl Abnormal NEGATIVE The [facility] Comment on above: Performed By: #### C MP #### [facility] [address] [place] [address] Edy Mari Hemoglobin Ql (U) Negative Normal NEGATIVE [facility] Comment on above: Performed By: #### C MP #### [facility] [address] [place] [address] Edy Mari Ketones Ql (U) Negative Normal NEGATIVE The [facility] Comment on above: Performed By: #### C MP #### [facility] [address] [place] [address] Edy Mari LEUKOCYTES Negative Normal NEGATIVE [facility] Comment on above: Performed By: #### C MP #### [facility] [address] [place] [address] Edy Guerra Nitrite Ql (U) Negative Normal NEGATIVE [facility] Comment on above: Performed By: #### C MP #### [facility] [address] [place], [place] [id number] Edy Guerra pH (U) 6.5 [pH] Normal 5-9 [facility] Comment on above: Performed By: #### C MP #### [facility] [address] [place] [address] Edy Guerra SPEC GRAVITY 1.015 Normal 1.005-<=1. 025 [facility] Comment on above: Performed By: #### C MP #### [facility] [address] [place] [address] Edy Guerra UA PROTEIN Negative Normal NEGATIVE/ TRACE [facility] Comment on above: Performed By: #### C MP #### [facility] [address] [place] [address] Edy Guerra UR MICRO IND NOT INDICATED Normal [facility] [place] Comment on above: Performed By: #### C MP #### [facility] [address] [place] [address] Edy Guerra Urobilinogen Qn (U) 0.2 {Bin'U}/dL Normal 0.2 - 1. 0 [facility] Comment on above: Performed By: #### C MP #### [facility] [address] [place] [address] Edy Guerra LACTATE/LACTIC ACIDon 2020 Lactate [Moles/Vol] 1.2 mmol/L Normal 0.7-2.0 [facility] Comment on above: Performed By: #### L ACT #### [facility] [address] [place], [place] [id number] Edy Guerra PROF 14(COMP METB)on 021 Albumin [Mass/Vol] 2.4 g/dL Critically low 3.5-5.0 [facility] Comment on above: Performed By: #### C BC #### [facility] [address] [place] [address] Edy Mari Albumin/Globulin [Mass ratio] 0.5 {ratio} Normal [facility] Comment on above: Performed By: #### C BC #### [facility] [address] [place], [place] [address] Edy Mari ALP [Catalytic activity/Vol] 211 U/L Critically high 38-126 [facility] Comment on above: Performed By: #### C BC #### [facility] [address] [place], [place] [address] Edy Mari ALT [Catalytic activity/Vol] 28 U/L Normal 9-52 [facility] Comment on above: Performed By: #### C BC #### [facility] [address] [id number] Edy Mari Anion gap [Moles/Vol] 9.8 mmol/L Normal [facility] Comment on above: Performed By: #### C BC #### [facility] [address] [place] [address] Edy Mari AST [Catalytic activity/Vol] 46 U/L Critically high 14-36 [facility] Comment on above: Performed By: #### C BC #### [facility] [address] [place] [address] Edy Mari Bilirubin [Mass/Vol] 1.1 mg/dL Normal 0.2-1.3 [facility] Comment on above: Performed By: #### C BC #### [facility] [address] [place], [place] [id number] Edy Mari Calcium [Mass/Vol] 8.2 mg/dL Critically low 8.4-10.2 [facility] Comment on above: Performed By: #### C BC #### [facility] [address] [place] [id number] Edy Mari Chloride [Moles/Vol] 100 mmol/L Normal 98-107 [facility] Comment on above: Performed By: #### C BC #### [facility] [address] [place] [id number] Edy Mari CO2 [Moles/Vol] 25.7 mmol/L Normal 22.0-30.0 [facility] Comment on above: Performed By: #### C BC #### [facility] [address] [place], [place] [address] Edy Mari Creatinine [Mass/Vol] 0.74 mg/dL Normal 0.52-1.04 [facility] Comment on above: Performed By: #### C BC #### [facility] [address] [place], [place] [address] Edy Mari EGFR-AF RWANDAN >60 Normal >=60 [facility] Comment on above: Performed By: #### C BC #### [facility] [address] [place], [place] [address] Edy Mari EGFR-NON AF RWANDAN >60 Normal >=60 [facility] Comment on above: Performed By: #### C BC #### [facility] [address] [place], [place] [id number] Edy Mari Globulin (S) [Mass/Vol] 4.8 g/dL Normal [facility] Comment on above: Performed By: #### C BC #### [facility] [address] [place] [address] Edy Mari Glucose [Mass/Vol] 259 mg/dL Critically high 74-106 [facility] Comment on above: Performed By: #### C BC #### [facility] [address] [place], [place] [id number] Edy Mari Potassium [Moles/Vol] 4.5 mmol/L Normal 3.4-5.0 [facility] Comment on above: Performed By: #### C BC #### [facility] [address] [place] [address] Edy Mari Protein [Mass/Vol] 7.2 g/dL Normal 6.1-8.2 [facility] Comment on above: Performed By: #### C BC #### [facility] [address] [place], [place] [id number] Edy Mari Sodium [Moles/Vol] 131 mmol/L Critically low 137-145 [facility] Comment on above: Performed By: #### C BC #### [facility] [address] [place], [place] [id number] Edy Mari Urea nitrogen [Mass/Vol] 11.0 mg/dL Normal 7.0-17.0 [facility] Comment on above: Performed By: #### C BC #### [facility] [address] [place], [place] [address] Edy Guerra Urea nitrogen/Creatinine [Mass ratio] 14.9 mg/mg Normal [facility] Comment on above: Performed By: #### C BC #### [facility] [address] [place], [place] [address] Edy Guerra Body fluid albumin measureme nt (mass/volume)on 12-20-2017 Albumin (Body fld) [Mass/Vol] 3.3 g/dL 3.2-5.5 [facility] Cholesterol [Mass/volume] in Serum or Plasmaon 12-20-2017 Cholesterol [Mass/Vol] 194 mg/dL 140-200 [facility] Comment on above: Chol less than 200 m g/dl low riskChol 201-239 mg/dl borderline riskChol 240 mg/dl and greater high risk Cholesterol in LDL Calc [Mas s/Vol]on 12-20-2017 Cholesterol in LDL [Mass/Vol] 110 mg/dL 0-100 [facility] Comment on above: LDL ATP III CLASSIFI CATIONLDL less than 100 mg/dL OptimalLDL 100-129 mg/dL Near or above optimalLDL 130-159 mg/dL Borderline highLDL 160-189 mg/dL HighLDL greater than 189 mg/dL Very high Cholesterol in VLDL Calc [Ma ss/Vol]on 12-20-2017 Cholesterol in VLDL [Mass/Vol] 19 mg/dL [facility] Creatinine [Mass/volume] in Urineon 12-20-2017 Creatinine (U) [Mass/Vol] 11.6 mg/dL [facility] Comment on above: No reference range e stablished Creatinine and Glomerular fi ltration rate.predicted panel (S/P/Bld)on 12-20-2017 Creatinine [Mass/Vol] 0.54 mg/dL 0.44-1.03 [facility] Estimated glomerular filtrat ion rate (GFR) non- Americanon 12-20-2017 GFR/1.73 sq M.predicted among non-blacks MDRD (S/P/Bld) [Vol rate/Area] mL/min/{1.73_m2} [facility] Globulin Calc (S) [Mass/Vol] on 12-20-2017 Globulin (S) [Mass/Vol] 4.0 g/dL [facility] Laboratory - Chemistry and C hemistry - challengeon 12-20-2017 Cholesterol.total/Cho lesterol in HDL [Mass ratio] 3.0 {ratio} <5.0 [facility] GFR/1.73 sq M.predicted among blacks MDRD (S/P/Bld) [Vol rate/Area] mL/min/{1.73_m2} [facility] Comment on above: GFR estimated refere nce range: According to KDOQI guidelines, <60 ml/min/1.73m2 is sufficient to diagnose a patient with chronic kidney disease. No Panel Informationon 12-20 Pharmacy Creatinine Clearance (Chem N/A [facility] Protein [Mass/volume] in Ser um or Plasmaon 12-20-2017 Protein [Mass/Vol] 7.3 g/dL 6.1-7.9 [facility] Serum or plasma alanine grajeda otransferase measurement without P-5'-P (enzymatic activion 12-20-2017 ALT No additional P-5'-P [Catalytic activity/Vol] 27 U/L [facility] Serum or plasma albumin/glob ulin mass ratioon 12-20-2017 Albumin/Globulin [Mass ratio] 0.8 {ratio} [facility] Serum or plasma alkaline jordan sphatase measurement (enzymatic activity/volume)on 12-20-2017 ALP [Catalytic activity/Vol] 185 U/L 32-92 [facility] Serum or plasma aspartate am inotransferase measurement (enzymatic activity/volume)on 12-20-2017 AST [Catalytic activity/Vol] 41 U/L [facility] Serum or plasma calcidiol me asurement (mass/volume)on 12-20-2017 25-hydroxyvitamin D3 [Mass/Vol] 31.3 ng/mL 30-100 [facility] Comment on above: VITAMIN D STATUS 25( [place])VITAMIN D RANGE (ng/mL) Deficient <20 Insufficient 20 to <30Sufficient 30 to 100Reference: Mynor MF,Benson NC, Bola GIRON, et al. Evaluation,treatment, and prevention of vitamin D deficiency; an Endocrine Society clinical practice guideline. JCEM. 2010; 96(7):1911-30. Serum or plasma calcium elis urement (mass/volume)on 12-20-2017 Calcium [Mass/Vol] 8.8 mg/dL 8.2-10.2 [facility] Serum or plasma chloride neo surement (moles/volume)on 12-20-2017 Chloride [Moles/Vol] 103 mmol/L 95-114 [facility] Serum or plasma glucose elis urement (mass/volume)on 12-20-2017 Glucose [Mass/Vol] 172 mg/dL 70-100 [facility] Comment on above: ADA recommended refe rence rangeRandom Glucose Reference Range is dependent on time and content of last meal. Glucose of more than 200 mg/dL in a nonstressed, ambulatory subject supports the diagnosis of Diabetes Mellitus. Serum or plasma high density lipoprotein (HDL) cholesterol measurementon 12-20-2017 Cholesterol in HDL [Mass/Vol] 65 mg/dL 35-85 [facility] Comment on above: HDL CHOL ATP-III CLA SSIFICATION Cardiovascular RiskHDL > or equal to 60 mg/dL LOWHDL < 40 mg/dL HIGH Serum or plasma potassium me asurement (moles/volume)on 12-20-2017 Potassium [Moles/Vol] 4.0 mmol/L 3.5-5.1 [facility] Serum or plasma sodium measu rement (moles/volume)on 12-20-2017 Sodium [Moles/Vol] 137 mmol/L 136-146 [facility] Serum or plasma total biliru bin measurement (mass/volume)on 12-20-2017 Bilirubin [Mass/Vol] 1.2 mg/dL 0.3-1.2 [facility] Serum or plasma total carbon dioxide measurement (moles/volume)on 12-20-2017 CO2 [Moles/Vol] 25.8 mmol/L 22.0-30.0 [facility] Serum or plasma urea nitroge n measurement (mass/volume)on 12-20-2017 Urea nitrogen [Mass/Vol] 6 mg/dL - [facility] Triglyceride [Mass/volume] i n Serum or Plasmaon 12-20-2017 Triglyceride [Mass/Vol] 97 mg/dL 35-149 [facility] Comment on above: TRIG ATP III CLASSIF ICATIONTRIG less than 150 mg/dL NormalTRIG 150-199 mg/dL Borderline highTRIG 200-500 mg/dL High TRIG greater than 500 mg/dL Very highStandard traceable to the Center for Disease Conrtrol and Prevention (CDC) test method. Urine microalbumin measureme nt with detection limit of 20 mg/L or less (mass/volume)on 12-20-2017 Albumin DL <= 20 mg/L (U) [Mass/Vol] mg/dL 0.0-1.8 [facility] Urine microalbumin/creatinin e mass ratioon 12-20-2017 Albumin/Creatinine DL <= 20 mg/L (U) [Mass ratio] TNP [facility] Comment on above: Test not performed Vitamin B12 ser/plason 12-20 Cobalamin (Vitamin B12) [Mass/Vol] 823 pg/mL 180-914 [facility] Vital Signs Date Time Vital Sign Value Performing Clinician Facility 08-21-2024 16:00-0400 Body temperature 97.8 [degF] Chapis Joshua ASSOCIATE PROFESSOR OF COMMUNICATION-C Work Phone: [facility] 08-21-2024 16:00-0400 Diastolic blood pressure 73 mm[Hg] Chapis Joshua ASSOCIATE PROFESSOR OF COMMUNICATION-C Work Phone: [facility] 08-21-2024 16:00-0400 Heart rate 89 /min Chapis Joshua ASSOCIATE PROFESSOR OF COMMUNICATION-C Work Phone: [facility] 08-21-2024 16:00-0400 Respiratory rate 18 /min Chapis Joshua ASSOCIATE PROFESSOR OF COMMUNICATION-C Work Phone: [facility] 08-21-2024 16:00-0400 SaO2% (BldA) [Mass fraction] 100 % Chapis Joshua ASSOCIATE PROFESSOR OF COMMUNICATION-C Work Phone: [facility] 08-21-2024 16:00-0400 Systolic blood pressure 124 mm[Hg] Chapis Joshua ASSOCIATE PROFESSOR OF COMMUNICATION-C Work Phone: [facility] 08-21-2024 06:00-0400 Body weight 54.5 kg Chapis Joshua ASSOCIATE PROFESSOR OF COMMUNICATION-C Work Phone: [facility] 08-19-2024 21:03-0400 Body height 157.48 cm Chapis Joshua ASSOCIATE PROFESSOR OF COMMUNICATION-C Work Phone: [facility] 07-10-2024 15:08-0400 Diastolic blood pressure 72 mm[Hg] Chapis Joshua ASSOCIATE PROFESSOR OF COMMUNICATION-C Work Phone: [facility] 07-10-2024 15:08-0400 Heart rate 93 /min Chapis Joshua ASSOCIATE PROFESSOR OF COMMUNICATION-C Work Phone: [facility] 07-10-2024 15:08-0400 Respiratory rate 16 /min Chapis Joshua ASSOCIATE PROFESSOR OF COMMUNICATION-C Work Phone: [facility] 07-10-2024 15:08-0400 SaO2% (BldA) [Mass fraction] 100 % Chapis Joshua ASSOCIATE PROFESSOR OF COMMUNICATION-C Work Phone: [facility] 07-10-2024 15:08-0400 Systolic blood pressure 156 mm[Hg] Chapis Joshua ASSOCIATE PROFESSOR OF COMMUNICATION-C Work Phone: [facility] 07-10-2024 12:09-0400 Body height 165.1 cm Chapis Joshua ASSOCIATE PROFESSOR OF COMMUNICATION-C Work Phone: [facility] 07-10-2024 12:09-0400 Body temperature 97.8 [degF] Chapis Joshua ASSOCIATE PROFESSOR OF COMMUNICATION-C Work Phone: [facility] 07-10-2024 12:09-0400 Body weight 64.7 kg Chapis Joshua ASSOCIATE PROFESSOR OF COMMUNICATION-C Work Phone: [facility] 07-08-2024 12:00-0400 Body temperature 97.4 [degF] Chapis Joshua ASSOCIATE PROFESSOR OF COMMUNICATION-C Work Phone: [facility] 07-08-2024 12:00-0400 Diastolic blood pressure 65 mm[Hg] Chapis Joshua ASSOCIATE PROFESSOR OF COMMUNICATION-C Work Phone: [facility] 07-08-2024 12:00-0400 Heart rate 97 /min Chapis Joshua ASSOCIATE PROFESSOR OF COMMUNICATION-C Work Phone: [facility] 07-08-2024 12:00-0400 Respiratory rate 16 /min Chapis Joshua ASSOCIATE PROFESSOR OF COMMUNICATION-C Work Phone: [facility] 07-08-2024 12:00-0400 SaO2% (BldA) [Mass fraction] 98 % Chapis Joshua ASSOCIATE PROFESSOR OF COMMUNICATION-C Work Phone: [facility] 07-08-2024 12:00-0400 Systolic blood pressure 119 mm[Hg] Chapis Joshua ASSOCIATE PROFESSOR OF COMMUNICATION-C Work Phone: [facility] 07-08-2024 06:06-0400 Body weight 69 kg Chapis Joshua ASSOCIATE PROFESSOR OF COMMUNICATION-C Work Phone: [facility] 07-07-2024 16:29-0400 Body height 157.48 cm Chapis Joshua ASSOCIATE PROFESSOR OF COMMUNICATION-C Work Phone: [facility] 07-02-2024 09:20-0400 Inhaled oxygen flow rate 8 L/min Chapis Joshua ASSOCIATE PROFESSOR OF COMMUNICATION-C Work Phone: [facility] 06-30-2024 21:41-0400 Diastolic blood pressure 69 mm[Hg] Chapis Joshua ASSOCIATE PROFESSOR OF COMMUNICATION-C Work Phone: [facility] 06-30-2024 21:41-0400 Heart rate 95 /min Chapis Joshua ASSOCIATE PROFESSOR OF COMMUNICATION-C Work Phone: [facility] 06-30-2024 21:41-0400 Respiratory rate 16 /min Chapis Joshua ASSOCIATE PROFESSOR OF COMMUNICATION-C Work Phone: [facility] 06-30-2024 21:41-0400 SaO2% (BldA) [Mass fraction] 99 % Chapis Joshua ASSOCIATE PROFESSOR OF COMMUNICATION-C Work Phone: [facility] 06-30-2024 21:41-0400 Systolic blood pressure 155 mm[Hg] Chapis Joshua ASSOCIATE PROFESSOR OF COMMUNICATION-C Work Phone: [facility] 06-30-2024 19:20-0400 Body height 157.48 cm Chapis Joshua ASSOCIATE PROFESSOR OF COMMUNICATION-C Work Phone: [facility] 06-30-2024 19:20-0400 Body temperature 98.1 [degF] Chapis Joshua ASSOCIATE PROFESSOR OF COMMUNICATION-C Work Phone: [facility] 06-30-2024 19:20-0400 Body weight 62.3 kg Chapis Joshua ASSOCIATE PROFESSOR OF COMMUNICATION-C Work Phone: [facility] 01-18-2024 11:30-0500 Body height 157.5 [address]emi [address] MAGISTRATE.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 Work Phone: [facility] 01-18-2024 11:30-0500 Body mass index (BMI) [Ratio] 25.65 kg/m2 Noemi Lockett NIGHT COURT MAGISTRATE.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 Work Phone: [facility] 01-18-2024 11:30-0500 Body temperature 98.49 [degF] Noemi Lockett NIGHT COURT MAGISTRATE.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 Work Phone: [facility] 01-18-2024 11:30-0500 Body weight 63.6 kg Noemi Lockett NIGHT [address] MAGISTRATE.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 Work Phone: [facility] 01-18-2024 11:30-0500 Diastolic blood pressure 41 mm[Hg] Noemi Lockett APRN.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 Work Phone: [facility] Comment on above: Patient states headache lack of sleep no distress 01-18-2024 11:30-0500 Heart rate 84 /min Noemi Lockett NIGHT COURT MAGISTRATE.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 Work Phone: [facility] 01-18-2024 11:30-0500 SaO2% (BldA) [Mass fraction] 100 % Noemi Lockett NIGHT COURT MAGISTRATE.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 Work Phone: [facility] 01-18-2024 11:30-0500 Systolic blood pressure 126 mm[Hg] Noemi Lockett NIGHT COURT MAGISTRATE.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 Work Phone: [facility] Comment on above: Patient states headache lack of sleep no distress 11-30-2023 10:26-0400 Body height 157.48 cm ASSOCIATE PROFESSOR OF COMMUNICATION-C Chapis Joshua Work Phone: [facility] 11-30-2023 10:26-0400 Body mass index (BMI) [Ratio] 24.7 kg/m2 ASSOCIATE PROFESSOR OF COMMUNICATION-C Chapis Joshua Work Phone: [facility] 11-30-2023 10:26-0400 Body temperature 98 [degF] ASSOCIATE PROFESSOR OF COMMUNICATION-C Chapis Joshua Work Phone: [facility] 11-30-2023 10:26-0400 Body weight 61.34 kg ASSOCIATE PROFESSOR OF COMMUNICATION-C Chapis Joshua Work Phone: [facility] 11-30-2023 10:26-0400 Diastolic blood pressure 61 mm[Hg] ASSOCIATE PROFESSOR OF COMMUNICATION-C Chapis Joshua Work Phone: [facility] 11-30-2023 10:26-0400 Heart rate 81 /min ASSOCIATE PROFESSOR OF COMMUNICATION-C Chapis Joshua Work Phone: [facility] 11-30-2023 10:26-0400 Respiratory rate 16 /min ASSOCIATE PROFESSOR OF COMMUNICATION-C Chapis Joshua Work Phone: [facility] 11-30-2023 10:26-0400 SaO2% (BldA) [Mass fraction] 99 % ASSOCIATE PROFESSOR OF COMMUNICATION-C Chapis Joshua Work Phone: [facility] 11-30-2023 10:26-0400 Systolic blood pressure 143 mm[Hg] ASSOCIATE PROFESSOR OF COMMUNICATION-C Chapis Joshua Work Phone: [facility] 07-21-2023 13:54-0400 Body height 157.48 cm ASSOCIATE PROFESSOR OF COMMUNICATION-C Chapis Joshua Work Phone: [facility] 07-21-2023 13:54-0400 Body mass index (BMI) [Ratio] 22.6 kg/m2 ASSOCIATE PROFESSOR OF COMMUNICATION-C Chapis Joshua Work Phone: [facility] 07-21-2023 13:54-0400 Body weight 56.24 kg ASSOCIATE PROFESSOR OF COMMUNICATION-C Chapis Joshua Work Phone: [facility] 07-21-2023 13:54-0400 Diastolic blood pressure 74 mm[Hg] ASSOCIATE PROFESSOR OF COMMUNICATION-C Chapis Joshua Work Phone: [facility] 07-21-2023 13:54-0400 Heart rate 80 /min ASSOCIATE PROFESSOR OF COMMUNICATION-C Chapis Joshua Work Phone: [facility] 07-21-2023 13:54-0400 Respiratory rate 18 /min ASSOCIATE PROFESSOR OF COMMUNICATION-C Chapis Joshua Work Phone: [facility] 07-21-2023 13:54-0400 SaO2% (BldA) [Mass fraction] 99 % ASSOCIATE PROFESSOR OF COMMUNICATION-C Chapis Joshua Work Phone: [facility] 07-21-2023 13:54-0400 Systolic blood pressure 133 mm[Hg] ASSOCIATE PROFESSOR OF COMMUNICATION-C Chapis Joshua Work Phone: [facility] 07-05-2023 10:53-0400 Body height 157.5 cm Jena Cohen MD Work Phone: [facility] 07-05-2023 10:53-0400 Body mass index (BMI) [Ratio] 23.15 kg/m2 Jena Cohen MD Work Phone: [facility] 07-05-2023 10:53-0400 Body temperature 98.1 [degF] Jena Cohen MD Work Phone: [facility] 07-05-2023 10:53-0400 Body weight 57.4 kg Jena Cohen MD Work Phone: [facility] 07-05-2023 10:53-0400 Diastolic blood pressure 51 mm[Hg] Jena Cohen MD Work Phone: [facility] 07-05-2023 10:53-0400 Heart rate 86 /min Jena Cohen MD Work Phone: [facility] 07-05-2023 10:53-0400 SaO2% (BldA) [Mass fraction] 100 % Jena Cohen MD Work Phone: [facility] 07-05-2023 10:53-0400 Systolic blood pressure 110 mm[Hg] Jena Cohen MD Work Phone: [facility] 06-15-2023 13:40-0400 Body height 157.48 cm ASSOCIATE PROFESSOR OF COMMUNICATION-C Chapis Joshua Work Phone: [facility] 06-15-2023 13:40-0400 Body mass index (BMI) [Ratio] 23.4 kg/m2 ASSOCIATE PROFESSOR OF COMMUNICATION-C Chapis Joshua Work Phone: [facility] 06-15-2023 13:40-0400 Body temperature 96 [degF] ASSOCIATE PROFESSOR OF COMMUNICATION-C Chapis Joshua Work Phone: [facility] 06-15-2023 13:40-0400 Body weight 58.17 kg ASSOCIATE PROFESSOR OF COMMUNICATION-C Chapis Joshua Work Phone: [facility] 06-15-2023 13:40-0400 Diastolic blood pressure 68 mm[Hg] ASSOCIATE PROFESSOR OF COMMUNICATION-C Chapis Joshua Work Phone: [facility] 06-15-2023 13:40-0400 Heart rate 84 /min ASSOCIATE PROFESSOR OF COMMUNICATION-C Chapis Joshua Work Phone: [facility] 06-15-2023 13:40-0400 Respiratory rate 16 /min ASSOCIATE PROFESSOR OF COMMUNICATION-C Chapis Joshua Work Phone: [facility] 06-15-2023 13:40-0400 SaO2% (BldA) [Mass fraction] 99 % ASSOCIATE PROFESSOR OF COMMUNICATION-C Chapis Joshua Work Phone: [facility] 06-15-2023 13:40-0400 Systolic blood pressure 130 mm[Hg] ASSOCIATE PROFESSOR OF COMMUNICATION-C Chapis Joshua Work Phone: [facility] 06-11-2023 16:05-0400 Body height 157.5 cm Moon Bhardwajdenberry NIGHT COURT MAGISTRATE.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 Work Phone: [facility] 06-11-2023 16:05-0400 Body temperature 97.39 [degF] Moon Rosinadenberry NIGHT COURT MAGISTRATE.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 Work Phone: [facility] 06-11-2023 16:05-0400 Body weight 61.5 kg Moon Roddenberry NIGHT [address] MAGISTRATE.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 Work Phone: [facility] 06-11-2023 16:05-0400 Diastolic blood pressure 51 mm[Hg] Moon Roddenberry NIGHT COURT MAGISTRATE.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 Work Phone: [facility] 06-11-2023 16:05-0400 Heart rate 84 /min Moon Rosinadenberry NIGHT COURT MAGISTRATE.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 Work Phone: [facility] 06-11-2023 16:05-0400 SaO2% (BldA) [Mass fraction] 100 % Moon Rosinadenberry NIGHT COURT MAGISTRATE.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 Work Phone: [facility] 06-11-2023 16:05-0400 Systolic blood pressure 127 mm[Hg] Moon Roddenberry NIGHT COURT MAGISTRATE.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 Work Phone: [facility] 05-24-2023 21:00-0400 Diastolic blood pressure 59 mm[Hg] ASSOCIATE PROFESSOR OF COMMUNICATION-C Chapis Joshua Work Phone: [facility] 05-24-2023 21:00-0400 Heart rate 72 /min ASSOCIATE PROFESSOR OF COMMUNICATION-C Chapis Joshua Work Phone: [facility] 05-24-2023 21:00-0400 Respiratory rate 20 /min ASSOCIATE PROFESSOR OF COMMUNICATION-C Chapis Joshua Work Phone: [facility] 05-24-2023 21:00-0400 SaO2% (BldA) [Mass fraction] 100 % ASSOCIATE PROFESSOR OF COMMUNICATION-C Chapis Joshua Work Phone: [facility] 05-24-2023 21:00-0400 Systolic blood pressure 111 mm[Hg] ASSOCIATE PROFESSOR OF COMMUNICATION-C Chapis Joshua Work Phone: [facility] 05-24-2023 16:04-0400 Body temperature 97.5 [degF] ASSOCIATE PROFESSOR OF COMMUNICATION-C Chapis Joshua Work Phone: [facility] 05-24-2023 15:11-0400 Inhaled oxygen flow rate 2 L/min ASSOCIATE PROFESSOR OF COMMUNICATION-C Chapis Joshua Work Phone: [facility] 05-24-2023 03:02-0400 Body height 157.48 cm ASSOCIATE PROFESSOR OF COMMUNICATION-C Chapis Joshua Work Phone: [facility] 05-24-2023 03:02-0400 Body temperature 98.6 [degF] ASSOCIATE PROFESSOR OF COMMUNICATION-C Chapis Joshua Work Phone: [facility] 05-24-2023 03:02-0400 Body weight 66 kg ASSOCIATE PROFESSOR OF COMMUNICATION-C Chapis Joshua Work Phone: [facility] 05-24-2023 03:02-0400 Diastolic blood pressure 68 mm[Hg] ASSOCIATE PROFESSOR OF COMMUNICATION-C Chapis Joshua Work Phone: [facility] 05-24-2023 03:02-0400 Heart rate 88 /min ASSOCIATE PROFESSOR OF COMMUNICATION-C Chapis Joshua Work Phone: [facility] 05-24-2023 03:02-0400 Respiratory rate 24 /min ASSOCIATE PROFESSOR OF COMMUNICATION-C Chapis Joshua Work Phone: [facility] 05-24-2023 03:02-0400 SaO2% (BldA) [Mass fraction] 99 % ASSOCIATE PROFESSOR OF COMMUNICATION-C Chapis Joshua Work Phone: [facility] 05-24-2023 03:02-0400 Systolic blood pressure 145 mm[Hg] ASSOCIATE PROFESSOR OF COMMUNICATION-C Chapis Joshua Work Phone: [facility] 02-09-2023 11:40-0500 Body height 157.48 cm ASSOCIATE PROFESSOR OF COMMUNICATION-C Chapis Joshua Work Phone: [facility] 02-02-2023 13:20-0500 Diastolic blood pressure 73 mm[Hg] ASSOCIATE PROFESSOR OF COMMUNICATION-C Chapis Joshua Work Phone: [facility] 02-02-2023 13:20-0500 Heart rate 61 /min ASSOCIATE PROFESSOR OF COMMUNICATION-C Chapis Joshua Work Phone: [facility] 02-02-2023 13:20-0500 Respiratory rate 18 /min ASSOCIATE PROFESSOR OF COMMUNICATION-C Chapis Joshua Work Phone: [facility] 02-02-2023 13:20-0500 SaO2% (BldA) [Mass fraction] 100 % ASSOCIATE PROFESSOR OF COMMUNICATION-C Chapis Joshua Work Phone: [facility] 02-02-2023 13:20-0500 Systolic blood pressure 106 mm[Hg] ASSOCIATE PROFESSOR OF COMMUNICATION-C Chapis Joshua Work Phone: [facility] 02-02-2023 11:42-0500 Body height 157.48 cm ASSOCIATE PROFESSOR OF COMMUNICATION-C Chapis Joshua Work Phone: [facility] 02-02-2023 11:42-0500 Body weight 68.94 kg ASSOCIATE PROFESSOR OF COMMUNICATION-C Chapis Joshua Work Phone: [facility] 11-11-2022 15:15-0400 Body height 157.48 cm Tondra Mapus Other [employer] Other 11-11-2022 15:15-0400 Body mass index (BMI) [Ratio] 24.91 kg/m2 Tondra Mapus Other [employer] Other 11-11-2022 15:15-0400 Body weight 61.78 kg Tondra Mapus Other [employer] Other 11-11-2022 15:15-0400 Diastolic blood pressure 68 mm[Hg] Tondra Mapus Other [employer] Other 11-11-2022 15:15-0400 Respiratory rate 18 /min Tondra Mapus Other [employer] Other 11-11-2022 15:15-0400 SaO2% (BldA) [Mass fraction] 99 % Tondra Mapus Other [employer] Other 11-11-2022 15:15-0400 Systolic blood pressure 119 mm[Hg] Tondra Mapus Other [employer] Other 10-27-2022 13:33-0400 Diastolic blood pressure 58 mm[Hg] MD Rain Hebert Work Phone: [facility] 10-27-2022 13:33-0400 Heart rate 87 /min MD Rain Hebert Work Phone: [facility] 10-27-2022 13:33-0400 Respiratory rate 16 /min MD Rain Hebert Work Phone: [facility] 10-27-2022 13:33-0400 SaO2% (BldA) [Mass fraction] 100 % MD Rain Hebert Work Phone: [facility] 10-27-2022 13:33-0400 Systolic blood pressure 108 mm[Hg] MD Rain Hebert Work Phone: [facility] 10-27-2022 11:12-0400 Body height 157.48 cm MD Rain Hebert Work Phone: [facility] 10-27-2022 11:12-0400 Body weight 68.03 kg MD Rain Hebert Work Phone: [facility] 10-08-2022 14:45-0400 Body height 157.48 cm Nimesh Chin Other [facility] [employer] Other 10-08-2022 14:45-0400 Body mass index (BMI) [Ratio] 26.15 kg/m2 Nimesh Chin Other [employer] Other 10-08-2022 14:45-0400 Body weight 64.86 kg Nimesh Chin Other [employer] Other 10-08-2022 14:45-0400 Diastolic blood pressure 74 mm[Hg] Nimesh Chin Other [employer] Other 10-08-2022 14:45-0400 Systolic blood pressure 110 mm[Hg] Nimesh Chin Other [employer] Other 08-17-2022 12:57-0400 Body height 157.5 cm Moon Roddenberry NIGHT [address] MAGISTRATE.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 Work Phone: [facility] 08-17-2022 12:57-0400 Body temperature 98.01 [degF] Moon Roddenberry NIGHT COURT MAGISTRATE.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 Work Phone: [facility] 08-17-2022 12:57-0400 Body weight 62.32 kg Moon Roddenberry NIGHT COURT MAGISTRATE.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 Work Phone: [facility] 08-17-2022 12:57-0400 Diastolic blood pressure 59 mm[Hg] Moon Roddenberry NIGHT COURT MAGISTRATE.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 Work Phone: [facility] 08-17-2022 12:57-0400 Heart rate 77 /min Moon Roddenberry NIGHT COURT MAGISTRATE.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 Work Phone: [facility] 08-17-2022 12:57-0400 SaO2% (BldA) [Mass fraction] 98 % Moon Roddenberry NIGHT COURT MAGISTRATE.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 Work Phone: [facility] 08-17-2022 12:57-0400 Systolic blood pressure 120 mm[Hg] Moon Roddenberry NIGHT COURT MAGISTRATE.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 Work Phone: [facility] 08-03-2022 15:00-0400 Body height 157.48 cm Tondra Mapus Other [employer] Other 08-03-2022 15:00-0400 Body mass index (BMI) [Ratio] 26.23 kg/m2 Tondra Mapus Other [employer] Other 08-03-2022 15:00-0400 Body weight 65.05 kg Tondra Mapus Other [employer] Other 08-03-2022 15:00-0400 Diastolic blood pressure 70 mm[Hg] Tondra Mapus Other [employer] Other 08-03-2022 15:00-0400 Respiratory rate 18 /min Tondra Mapus Other [employer] Other 08-03-2022 15:00-0400 SaO2% (BldA) [Mass fraction] 98 % Tondra Mapus Other [employer] Other 08-03-2022 15:00-0400 Systolic blood pressure 106 mm[Hg] Tondra Mapus Other [employer] Other 07-01-2022 10:38-0400 Diastolic blood pressure 58 mm[Hg] MD Rain Hebert Work Phone: [facility] 07-01-2022 10:38-0400 Heart rate 68 /min MD Rain Hebert Work Phone: [facility] 07-01-2022 10:38-0400 Respiratory rate 16 /min MD Rain Hebert Work Phone: [facility] 07-01-2022 10:38-0400 SaO2% (BldA) [Mass fraction] 100 % MD Rain Hebert Work Phone: [facility] 07-01-2022 10:38-0400 Systolic blood pressure 96 mm[Hg] MD Rain Hebert Work Phone: [facility] 07-01-2022 08:27-0400 Body height 157.48 cm MD Rain Hebert Work Phone: [facility] 07-01-2022 08:27-0400 Body weight 67.58 kg MD Rain Hebert Work Phone: [facility] 04-20-2022 15:00-0500 Body height 157.48 cm Tondra Mapus Other [employer] Other 04-20-2022 15:00-0500 Body mass index (BMI) [Ratio] 25.86 kg/m2 Tondra Mapus Other [employer] Other 04-20-2022 15:00-0500 Body weight 64.14 kg Tondra Mapus Other [employer] Other 04-20-2022 15:00-0500 Diastolic blood pressure 65 mm[Hg] Tondra Mapus Other [employer] Other 04-20-2022 15:00-0500 Respiratory rate 18 /min Tondra Mapus Other [employer] Other 04-20-2022 15:00-0500 SaO2% (BldA) [Mass fraction] 99 % Tondra Mapus Other [employer] Other 04-20-2022 15:00-0500 Systolic blood pressure 108 mm[Hg] Tondra Mapus Other [employer] Other 03-18-2022 14:00-0500 Body height 157.48 cm Nimesh Chin Other [employer] Other 03-18-2022 14:00-0500 Body mass index (BMI) [Ratio] 25.05 kg/m2 Nimesh Chin Other [employer] Other 03-18-2022 14:00-0500 Body weight 62.14 kg Nimesh Chin Other [employer] Other 03-18-2022 14:00-0500 Diastolic blood pressure 58 mm[Hg] Nimesh Kiddy Other [employer] Other 03-18-2022 14:00-0500 Systolic blood pressure 104 mm[Hg] Nimesh Chin Other [employer] Other 03-10-2022 15:40-0500 Body height 157.48 cm Aziz Fosubos Other [employer] Other 03-10-2022 15:40-0500 Body mass index (BMI) [Ratio] 25.02 kg/m2 Aziz Loxam Holdinghous Other [employer] Other 03-10-2022 15:40-0500 Body temperature 97.7 [degF] Aziz Bakhous Other [employer] Other 03-10-2022 15:40-0500 Body weight 62.05 kg Aziz Bakhous Other [employer] Other 03-10-2022 15:40-0500 Diastolic blood pressure 40 mm[Hg] Aziz Bakhous Other [employer] Other 03-10-2022 15:40-0500 Respiratory rate 16 /min Aziz Bakleslies Other [employer] Other 03-10-2022 15:40-0500 SaO2% (BldA) [Mass fraction] 97 % Mickey Melaras Other [employer] Other 03-10-2022 15:40-0500 Systolic blood pressure 80 mm[Hg] Christosiz Bakleslies Other [employer] Other 01-05-2022 16:00-0500 Body height 157.48 cm Tondra Mapus Other [employer] Other 01-05-2022 16:00-0500 Body mass index (BMI) [Ratio] 26.52 kg/m2 Tondra Mapus Other [employer] Other 01-05-2022 16:00-0500 Body weight 65.77 kg Tondra Mapus Other [employer] Other 01-05-2022 16:00-0500 Diastolic blood pressure 64 mm[Hg] Tondra Mapus Other [employer] Other 01-05-2022 16:00-0500 Respiratory rate 16 /min Tondra Mapus Other [employer] Other 01-05-2022 16:00-0500 SaO2% (BldA) [Mass fraction] 100 % Tondra Mapus Other [employer] Other 01-05-2022 16:00-0500 Systolic blood pressure 111 mm[Hg] Tondra Mapus Other [employer] Other 09-23-2021 15:30-0400 Body height 157.48 cm Tondra Mapus Other [employer] Other 09-23-2021 15:30-0400 Body mass index (BMI) [Ratio] 25.53 kg/m2 Tondra Mapus Other [employer] Other 09-23-2021 15:30-0400 Body weight 63.32 kg Tondra Mapus Other [employer] Other 09-23-2021 15:30-0400 Diastolic blood pressure 70 mm[Hg] Tondra Mapus Other [employer] Other 09-23-2021 15:30-0400 Respiratory rate 18 /min Tondra Mapus Other [employer] Other 09-23-2021 15:30-0400 SaO2% (BldA) [Mass fraction] 100 % Tondra Mapus Other [employer] Other 09-23-2021 15:30-0400 Systolic blood pressure 111 mm[Hg] Tondra Mapus Other [employer] Other 08-12-2021 16:30-0400 Body height 157.48 cm Laurent Clark Other [employer] Other 08-12-2021 16:30-0400 Body mass index (BMI) [Ratio] 25.24 kg/m2 Laurent Clark Other [employer] Other 08-12-2021 16:30-0400 Body weight 62.6 kg Laurent Clark Other [employer] Other 08-12-2021 16:30-0400 Diastolic blood pressure 68 mm[Hg] Laurent Clark Other [employer] Other 08-12-2021 16:30-0400 Systolic blood pressure 125 mm[Hg] Laurent Clark Other [employer] Other 07-08-2021 16:00-0400 Body height 157.48 cm Azdiogo Loxam Holdingleslies Other [employer] Other 07-08-2021 16:00-0400 Body mass index (BMI) [Ratio] 25.09 kg/m2 Azdiogo Fosubos Other [employer] Other 07-08-2021 16:00-0400 Body temperature 97.3 [degF] Aziz Fosubos Other [employer] Other 07-08-2021 16:00-0400 Body weight 62.23 kg Azdiogo L[employer] Other [employer] Other 07-08-2021 16:00-0400 Diastolic blood pressure 49 mm[Hg] Aziz Fosubos Other [employer] Other 07-08-2021 16:00-0400 Respiratory rate 20 /min Aziz Loxam Holdinghous Other [employer] Other 07-08-2021 16:00-0400 SaO2% (BldA) [Mass fraction] 98 % Azdiogo Bakhous Other [employer] Other 07-08-2021 16:00-0400 Systolic blood pressure 91 mm[Hg] Mickey Lovett Other [employer] Other 04-08-2021 16:15-0500 Body height 157.48 cm Laurent Clark Other [employer] Other 04-08-2021 16:15-0500 Body mass index (BMI) [Ratio] 23.77 kg/m2 Laurent Clark Other [employer] Other 04-08-2021 16:15-0500 Body weight 58.97 kg Laurent Clark Other [employer] Other 02-11-2021 16:30-0500 Body height 157.48 cm Tondra Mapus Other [employer] Other 02-11-2021 16:30-0500 Body mass index (BMI) [Ratio] 26.52 kg/m2 Tondra Mapus Other [employer] Other 02-11-2021 16:30-0500 Body weight 65.77 kg Tondra Mapus Other [employer] Other 02-11-2021 16:30-0500 Diastolic blood pressure 66 mm[Hg] Tondra Mapus Other [employer] Other 02-11-2021 16:30-0500 Respiratory rate 16 /min Tondra Mapus Other [employer] Other 02-11-2021 16:30-0500 SaO2% (BldA) [Mass fraction] 99 % Ajay Kiddus Other [facility] [employer] Other 02-11-2021 16:30-0500 Systolic blood pressure 112 mm[Hg] Ajay Kiddus Other [facility] [employer] Other 12-22-2018 14:36-0400 Body height 157.48 cm MD Rain Hebert Work Phone: [facility] 12-22-2018 14:36-0400 Body weight 63.23 kg MD Rain Hebert Work Phone: [facility] Encounters Encounter Date Encounter Type Care Provider Facility Start: 10-11-2024 ambulatory Chapis L Joshua Facility: [facility] Start: 09-12-2024 ambulatory PA-C NICOLE KELLEY Facility:[facility] Start: 09-12-2024 End: 09-12-2024 Patient encounter procedure [facility] Start: 09-11-2024 ambulatory Chapis Joshua Facility:[facility] Start: 08-30-2024 End: 08-30-2024 ambulatory Chapis L Joshua Facility:[facility] [place] Start: 08-23-2024 End: 08-23-2024 Patient encounter procedure Roger Robbins [facility] Work Phone: Start: 08-23-2024 End: 08-23-2024 ambulatory Chapis Sylvia Joshua ASSOCIATE PROFESSOR OF COMMUNICATION-C Work Phone: [facility] Work Phone: Start: 08-22-2024 ambulatory Chapis L Joshua Facility: [id number] Start: 08-19-2024 End: 08-21-2024 ambulatory Mack Carmona Facility:[facility] Start: 08-19-2024 End: 08-21-2024 Evaluation and management of inpatient Aly Hooks MD -[facility] Work Phone: Start: 07-26-2024 End: 07-26-2024 ambulatory Chapis Ward Joshua ASSOCIATE PROFESSOR OF COMMUNICATION-C Work Phone: [facility] Work Phone: Start: 07-26-2024 End: 07-26-2024 Patient encounter procedure Chapis Joshua ASSOCIATE PROFESSOR OF COMMUNICATION-C Work Phone: [facility] Physician [facility] Work Phone: Start: 07-26-2024 End: 07-26-2024 Patient encounter procedure Chapis Joshua ASSOCIATE PROFESSOR OF COMMUNICATION-C Work Phone: [facility] [place] Start: 07-26-2024 End: 07-26-2024 ambulatory Chapis Ward Joshua ASSOCIATE PROFESSOR OF COMMUNICATION-C Work Phone: [facility] Work Phone: Start: 07-14-2024 End: 07-14-2024 ambulatory Jordan R Bunting Facility:[facility] Start: 07-14-2024 End: 07-14-2024 Departed Referred Chapis Joshua ASSOCIATE PROFESSOR OF COMMUNICATION-C Work Phone: [facility] Work Phone: Start: 07-10-2024 End: 07-10-2024 Emergency department patient visit Chapis Joshua ASSOCIATE PROFESSOR OF COMMUNICATION-C Work Phone: [facility] Work Phone: Start: 07-03-2024 Non-patient / Non-visit Chapis Joshua ASSOCIATE PROFESSOR OF COMMUNICATION-C Work Phone: [facility] Physician [facility] Work Phone: Start: 07-01-2024 Non-patient / Non-visit Chapis Joshua ASSOCIATE PROFESSOR OF COMMUNICATION-C Work Phone: [facility] Phys[facility] Work Phone: Start: 06-30-2024 End: 07-08-2024 Evaluation and management of inpatient Chapis Joshua ASSOCIATE PROFESSOR OF COMMUNICATION-C Work Phone: [facility] [place] Work Phone: Start: 06-28-2024 End: 06-28-2024 ambulatory No Follow Up Required [facility] Start: 06-28-2024 End: 06-28-2024 Follow-up encounter No Follow Up Required Community Outreach Comment on above: Community Outreach ( Screening Mammogram Referral/ Open Pit Quarry Supervisor/) Start: 06-27-2024 End: 06-27-2024 ambulatory No Follow Up Required [facility] Start: 06-27-2024 End: 06-27-2024 Follow-up encounter No Follow Up Required Community Outreach Comment on above: Community Outreach ( Screening Mammogram Referral/ Open Pit Quarry Supervisor ) Start: 04-18-2024 End: 04-18-2024 Lab Drop off Chapis L Joshua [facility] Start: 04-18-2024 End: 04-18-2024 ambulatory Chapis L Joshua [place] Start: 01-18-2024 End: 01-18-2024 Patient encounter procedure Noemi Lockett NIGHT COURT MAGISTRATE.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 Work Phone: Gastroenterology Comment on above: 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); Vitamin D deficiency Start: 01-18-2024 End: 01-18-2024 ambulatory [facility] Facility:[facility] Start: 01-18-2024 End: 01-18-2024 ambulatory [facility] Facility:[facility] Start: 01-18-2024 End: 01-18-2024 Subsequent hospital visit by physician Mri 4 [facility] (I-Stat/1.5t/3t) Work Phone: MRI Q Comment on above: 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) [K74.3] Start: 01-13-2024 End: 01-13-2024 ambulatory Chapis L Joshua Facility:[facility] Josephine esteves Start: 11-30-2023 End: 11-30-2023 ambulatory ASSOCIATE PROFESSOR OF COMMUNICATION-C Chapis Sylvia Joshua Work Phone: [facility] Work Phone: Start: 11-30-2023 End: 11-30-2023 Patient encounter procedure ASSOCIATE PROFESSOR OF COMMUNICATION-C Chapis Lewis Work Phone: [facility] Physician [facility] Work Phone: Start: 11-23-2023 End: 11-23-2023 Patient encounter procedure ASSOCIATE PROFESSOR OF COMMUNICATION-C Chapis Lewis Work Phone: [facility] [place] Work Phone: Start: 11-23-2023 End: 11-23-2023 ambulatory ASSOCIATE PROFESSOR OF COMMUNICATION-C Chapis Sylvia Lewis Work Phone: [facility] Work Phone: Start: 08-27-2023 Refill Jena bolanos MD Work Phone: [facility] Comment on above: Refill Request Start: 07-21-2023 End: 07-21-2023 ambulatory ASSOCIATE PROFESSOR OF COMMUNICATION-C Chapis Lewis Work Phone: [facility] Work Phone: Start: 07-21-2023 End: 07-21-2023 Patient encounter procedure ASSOCIATE PROFESSOR OF COMMUNICATION-Jona Chapis Joshua Work Phone: [facility] Physician [facility] Work Phone: Start: 07-20-2023 Orders Only Jena bolanos MD Work Phone: Gastroenterology Comment on above: 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) Start: 07-16-2023 Telephone encounter Jena Lyon MD Work Phone: Gastroenterology Start: 07-16-2023 End: 07-16-2023 ambulatory ASSOCIATE PROFESSOR OF COMMUNICATION-C Chapis Lewis Work Phone: [facility] Work Phone: Start: 07-16-2023 End: 07-16-2023 Patient encounter procedure ASSOCIATE PROFESSOR OF COMMUNICATION-C Chapis Lewis Work Phone: [facility] [place] Work Phone: Start: 07-05-2023 End: 07-05-2023 Subsequent [...] 06-30-2023 ambulatory Chapis L Joshua Facility:[facility] [place] Start: 06-29-2023 End: 06-29-2023 ambulatory Chapis L Joshua Facility:[facility] [place] Start: 06-15-2023 Telephone encounter Moon brooks APRN.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 Work Phone: Gastroenterology Comment on above: 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); Esophageal varices without bleeding, unspecified esophageal varices type (HCC); Malnutrition of moderate degree (HCC) Start: 06-03-2023 ambulatory RAIN Lemons ity:[facility] Start: 06-03-2023 End: 06-03-2023 Subsequent hospital visit by physician [facility] Work Phone: Radiology Comment on above: 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] Start: 06-02-2023 End: 06-14-2023 ambulatory Chapis Lewis Facility:[id number] Start: 05-24-2023 End: 05-24-2023 Non-patient / Non-visit ASSOCIATE PROFESSOR OF COMMUNICATION-C Chapis Lewis Work Phone: [facility] Physician [facility] Gastroenterology Work Phone: Start: 05-24-2023 End: 05-24-2023 Non-patient / Non-visit ASSOCIATE PROFESSOR OF COMMUNICATION-C Chapis Lewis Work Phone: [facility] Physician [facility] Work Phone: Start: 05-24-2023 End: 05-24-2023 Evaluation and management of inpatient ASSOCIATE PROFESSOR OF COMMUNICATION-C Chapis Lewis Work Phone: [facility] [place] [facility] Work Phone: Start: 04-20-2023 End: 04-20-2023 ambulatory ASSOCIATE PROFESSOR OF COMMUNICATION-C Chapis Lewis Work Phone: [facility] Work Phone: Start: 04-20-2023 End: 04-20-2023 Patient encounter procedure ASSOCIATE PROFESSOR OF COMMUNICATION-C Chapis Lewis Work Phone: [facility] Physician [facility] Work Phone: Start: 04-13-2023 End: 04-13-2023 ambulatory ASSOCIATE PROFESSOR OF COMMUNICATION-C Chapis Lewis Work Phone: [facility] Work Phone: Start: 04-13-2023 End: 04-13-2023 Patient encounter procedure ASSOCIATE PROFESSOR OF COMMUNICATION-C Chapis Lewis Work Phone: [facility] [place] Work Phone: Start: 04-01-2023 End: 04-01-2023 ambulatory Tondra Mapus Other [employer] Other Start: 04-01-2023 Telephone encounter Tondra Mapus [facility] Start: 03-17-2023 End: 03-17-2023 ambulatory Tondra Mapus Other [employer] Other Start: 03-17-2023 Telephone encounter Tondra Mapus [facility] Start: 03-10-2023 End: 03-10-2023 ambulatory Azdiogo Melaras Other [employer] Other Start: 03-10-2023 Telephone encounter Azdiogo Melaras [facility] Start: 2023 End: 2023 ambulatory Nimesh Chin Other [employer] Other Start: 2023 Telephone encounter Nimesh Chin [facility] Start: 02-11-2023 End: 02-11-2023 ambulatory Tondra Mapus Other [employer] Other Start: 02-11-2023 Telephone encounter Tondra Mapus [facility] Start: 02-09-2023 End: 02-09-2023 Patient encounter procedure ASSOCIATE PROFESSOR OF COMMUNICATION-C Chapis Lewis Work Phone: [facility] Work Phone: Start: 02-04-2023 End: 02-04-2023 ambulatory Nimesh Chin Other [employer] Other Start: 02-04-2023 Telephone encounter Nimesh DHILLON [facility] G[facility]enterology Start: 02-02-2023 End: 02-02-2023 Admission to same day surgery center JESSIE Lewis Work Phone: [facility] Work Phone: Start: 01-27-2023 End: 01-27-2023 ambulatory Nimesh Chin Other [employer] Other Start: 01-27-2023 Telephone encounter Nimesh DHILLON G Gastroenterology Start: 12-02-2022 End: 12-02-2022 ambulatory Nimesh Chin Other [employer] Other Start: 12-02-2022 Telephone encounter Nimesh DHILLON [facility] Gastroenterology Start: 11-11-2022 (DM) Diabetes Tondra Mapus [facility] Start: 11-11-2022 End: 11-11-2022 ambulatory Tondra Mapus Other [employer] Other Start: 10-28-2022 End: 10-28-2022 ambulatory Tondra Mapus Other [employer] Other Start: 10-28-2022 Telephone encounter Tondra Mapus [facility] Start: 10-27-2022 Telephone encounter Nimesh DHILLON [facility] Gastroenterology Start: 10-27-2022 End: 10-27-2022 Admission to same day surgery center MD Rain Hebert Work Phone: [facility] Work Phone: Start: 10-27-2022 End: 10-27-2022 ambulatory MD Rain Hebert Work Phone: [facility] Work Phone: Start: 10-20-2022 End: 10-20-2022 ambulatory MD Rain Hebert Work Phone: [facility] Work Phone: Start: 10-20-2022 End: 10-20-2022 Patient encounter procedure MD Rain Hebert Work Phone: [facility] Work Phone: Start: 10-13-2022 Orders Only Moon jang NIGHT COURT MAGISTRATE.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 Work Phone: Gastroenterology Comment on above: Rectal varices (Prim nat Dx); Primary biliary cirrhosis (HCC) Consult (TIPS) Start: 10-08-2022 End: 10-08-2022 ambulatory MD Rain Hebert Work Phone: [facility] [employer] Other Start: 10-08-2022 End: 10-08-2022 Patient encounter procedure Nimesh AGUILLON Gastroenterology Start: 08-28-2022 Telephone encounter Moon brooks NIGHT COURT MAGISTRATE.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 Work Phone: Gastroenterology Comment on above: Request Outside [facility] Records Start: 08-17-2022 End: 08-17-2022 Patient encounter procedure Moon Roper NIGHT COURT MAGISTRATE.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 Work Phone: Gastroenterology Comment on above: 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) Start: 08-03-2022 Registered Recurring MD Rain maldonado Work Phone: [facility] Work Phone: Start: 08-03-2022 (DM) Diabetes Tondra Mapus [facility] Start: 08-03-2022 End: 08-03-2022 ambulatory Tondra Mapus Other [employer] Other Start: 07-23-2022 End: 07-23-2022 ambulatory Tondra Mapus Other [employer] Other Start: 07-23-2022 Telephone encounter Tondra Mapus [facility] Start: 07-02-2022 End: 07-02-2022 ambulatory Nimesh Chin Other [employer] Other Start: 07-02-2022 Telephone encounter Nimesh DHILLON G Gastroenterology Start: 07-01-2022 End: 07-01-2022 Admission to [facility] MD Rain Hebert Work Phone: [facility] Work Phone: Start: 07-01-2022 End: 07-01-2022 ambulatory MD Rain Hebert Work Phone: [facility] Work Phone: Start: 05-25-2022 End: 05-25-2022 ambulatory Nimesh Chin Other [employer] Other Start: 05-25-2022 Telephone encounter Nimesh DHILLON [facility] Start: 04-27-2022 End: 04-27-2022 ambulatory Tondra Elam Other [employer] Other Start: 04-27-2022 Telephone encounter Ajay Delvalle [facility] Start: 04-20-2022 End: 04-20-2022 Patient encounter procedure MD Rain Hebert Work Phone: [facility] [place] Work Phone: Start: 04-20-2022 Registered Recurring MD Rain maldonado Work Phone: [facility] Work Phone: Start: 04-20-2022 (DM) Diabetes Tondrbehzad Elam [facility] Start: 04-20-2022 End: 04-20-2022 ambulatory MD Rain Hebert Work Phone: [facility] Work Phone: Start: 03-18-2022 End: 03-18-2022 ambulatory Nimesh Chin Other [employer] Other Start: 03-18-2022 Patient encounter procedure Nimesh Chin [facility] Start: 03-10-2022 End: 03-10-2022 ambulatory Aziz Bakhous Other [employer] Other Start: 03-10-2022 Office outpatient visit 25 minutes Aziz Bakhous [facility] Start: 03-06-2022 End: 03-06-2022 ambulatory Tondra Mapus Other [employer] Other Start: 03-06-2022 Telephone encounter Tondra Mapus [facility] Start: 02-25-2022 End: 02-25-2022 ambulatory MD Rain Hebert Work Phone: [facility] Work Phone: Start: 02-25-2022 End: 02-25-2022 Patient encounter procedure MD Rain Hebert Work Phone: [facility] [place] Work Phone: Start: 01-05-2022 Registered Recurring MD Rain maldonado Work Phone: [facility] Work Phone: Start: 01-05-2022 (DM) Diabetes Tondra Mapus [facility] Start: 01-05-2022 End: 01-05-2022 ambulatory Tondra Mapus Other [employer] Other Start: 10-15-2021 End: 10-15-2021 ambulatory Tondra Mapus Other [employer] Other Start: 10-15-2021 Telephone encounter Tondra Mapus [facility] Start: 10-14-2021 End: 10-14-2021 ambulatory Laurent Clark Other [employer] Other Start: 10-14-2021 Telephone encounter Laurent Clark [facility] Start: 10-13-2021 End: 10-13-2021 ambulatory Laurent Clark Other [employer] Other Start: 10-13-2021 Telephone encounter Laurent Clark [facility] Start: 10-06-2021 End: 10-06-2021 ambulatory Tondra Mapus Other [employer] Other Start: 10-06-2021 Telephone encounter Tondra Mapus [facility] Start: 09-23-2021 (DM) Diabetes Tondra Mapus [facility] Start: 09-23-2021 End: 09-23-2021 ambulatory Tondra Mapus Other [employer] Other Start: 08-12-2021 End: 08-12-2021 ambulatory Laurent Clark Other [employer] Other Start: 08-12-2021 Office outpatient visit 25 minutes Laurent Clark [facility] Start: 08-05-2021 End: 08-05-2021 ambulatory Tondra Mapus Other [employer] Other Start: 08-05-2021 Telephone encounter Tondra Mapus [facility] Start: 07-16-2021 End: 07-16-2021 ambulatory Tondra Mapus Other [employer] Other Start: 07-16-2021 Telephone encounter Tondra Mapus [facility] Start: 07-08-2021 End: 07-08-2021 ambulatory Christosdiogo Melaras Other [employer] Other Start: 07-08-2021 Office outpatient ne w 30 minutes Mickey Lovett [facility] Start: 06-18-2021 End: 06-18-2021 ambulatory Tondra Mapus Other [employer] Other Start: 06-18-2021 Telephone encounter Tondra Mapus [facility] Start: 05-12-2021 End: 05-13-[address] RAIN HEBERT Facility:[facility] Start: 05-09-2021 End: 05-09-[address] NASRA CALDWELL Facility:[facility] Start: 05-08-2021 End: 05-08-2021 ambulatory Tondra Mapus Other [employer] Other Start: 05-08-2021 Telephone encounter Tondra Mapus [facility] Start: 05-07-2021 End: 05-08-2021 ambulatory LAURENT CLARK Facility:[facility] Start: 05-07-2021 Telephone encounter Laurent Clark [facility] Start: 05-05-2021 End: 05-05-2021 ambulatory Laurent Clark Other [employer] Other Start: 05-05-2021 Telephone encounter Laurent Clark [facility] Start: 04-16-2021 End: 04-16-2021 ambulatory Tondra Mapus Other [employer] Other Start: 04-16-2021 Telephone encounter Tondra Mapus [facility] Start: 04-09-2021 End: 04-09-2021 ambulatory Laurent Clark Other [employer] Other Start: 04-09-2021 Telephone encounter Laurent Clark [facility] Start: 04-08-2021 End: 04-08-2021 ambulatory Laurent Clark Other [employer] Other Start: 04-08-2021 Office outpatient visit 25 minutes Laurent Clark [facility] Start: 03-30-2021 End: 03-31-2021 ambulatory MARGARITA KEENE Facility:[facility] Start: 03-18-2021 End: 03-18-2021 ambulatory Laurent Amber Other [employer] Other Start: 03-18-2021 Telephone encounter Laurent Amber [facility] Start: 02-19-2021 End: 02-19-2021 ambulatory Tondra Mapus Other [employer] Other Start: 02-19-2021 Telephone encounter Tondra Mapus [facility] Start: 02-18-2021 End: 02-19-2021 ambulatory TONDRA MAPUS Facility:[facility] Start: 02-11-2021 (DM) Diabetes Tondra Mapus [facility] Start: 02-11-2021 End: 02-11-2021 ambulatory Tondra Mapus Other [employer] Other Start: 12-18-2020 Telephone encounter Tondra Mapus [facility] Start: 12-04-2020 End: 12-05-[address] RAIN HEBERT Facility:[facility] Start: 10-29-2020 End: 10-30-2020 ambulatory LAURENT CLARK JR Facility:[facility] Start: 10-16-2020 End: 10-18-[address] Facility:[facility] Start: 10-02-2020 End: 10-02-2020 ambulatory FLORIN RITTER Facility:[facility] Start: 09-04-2020 End: 09-04-[address] NASRA CALDWELL Facility:[facility] Procedures Date Procedure Procedure Detail Performing Clinician Start: 08-23-2024 Plain radiography of pelvis Chapis Lewis [employer]OCI[employer] Work Phone: Start: 08-23-2024 Plain X-ray of right femur Chapis Lewis N P-C Work Phone: Start: 08-20-2024 Respiratory Panel (PCR) Chapis Lewis ASSOCIATE [employer] Work Phone: Start: 08-19-2024 CT of head without contrast Chapis Joshua ASSOCIATE PROF[employer] COMM[employer] Work Phone: Start: 08-19-2024 Computed tomography of abdomen and pelvis with contrast Chapis Joshua ASSOCIATE [employer] Work Phone: Start: 07-26-2024 Plain radiography of pelvis Chapis Joshua ASSOCIATE [employer] Work Phone: Start: 07-26-2024 Plain X-ray of right femur Chapis Joshua N P-[facility] Work Phone: Start: 07-10-2024 Plain radiography of pelvis Chapis Joshua ASSOCIATE PROF[employer] COMM[employer] Work Phone: Start: 07-10-2024 Plain X-ray of right femur Chapis Joshua N P[facility] Work Phone: Start: 07-04-2024 Duplex scan of lower limb veins Chapsi Hari wab ASSOCIATE PROFESS[employer] OF COMM[employer]ICATION-[employer] Work Phone: Start: 07-03-2024 Aerobic microbial culture Chapis Joshua [employer]OCI[employer] Work Phone: Start: 07-03-2024 Nasal Screen MRSA/MSSA Chapis Joshua [employer]OCIATE [employer] Work Phone: Start: 07-02-2024 Plain radiography of pelvis Chapis Joshua ASSOCIATE [employer] Work Phone: Start: 07-02-2024 Plain X-ray of right femur Chapis Joshua N P-C Work Phone: Start: 07-02-2024 Plain X-ray of right hip Chapis Joshua ASSOCIATE PROF[employer]- C Work Phone: Start: 07-01-2024 Antibody screen Teodora Fajardo Comment on above: Order Comment: Transfuse now? Y Number o f units to transfuse now? 2 Comment Hold 1 unit for OR procedure tomorrow Transfuse now? N Transfuse now? Y Number of units to transfuse now? 1 Result Comment: PERF ORMED BY: [facility] [address] [place] [address] PATHOLOGIST KEY BED INSTALLER ADALBERTO MARTEL M.D. Start: 06-30-2024 Plain X-ray of right tibia and right fibula Chapis Joshua ASSOCIATE PROF[employer] COMM[employer] Work Phone: Start: 06-30-2024 X-ray of right ankle Chapis Villagomezab ASSOCIATE PROFESSOR [employer] COMM[employer]ICATION[employer] Work Phone: Start: 06-30-2024 CT cervical spine without contrast Chapis Villagomezab ASSOCIATE [employer] Work Phone: Start: 06-30-2024 CT of head without contrast Chapis Villagomezab ASSOCIATE [employer] COMM[employer] Work Phone: Start: 06-30-2024 Plain chest X-ray Chapis Villagomezab ASSOCIATE [employer] Work Phone: Start: 06-30-2024 Plain radiography of pelvis Chapis Villagomezab ASSOCIATE [employer] Work Phone: Start: 06-30-2024 Plain X-ray of [...] Phone: Start: 05-24-2023 Investigation of transfusion reaction ASSOCIATE PROFESSOR [employer] COMM[employer]ICATION-[employer] Chapis Joshua Work Phone: Start: 05-24-2023 Ultrasonography guided puncture and aspiration of abdomen ASSOCIATE PROFESS[employer] COMM[employer]ICATION[employer] Chapis Joshua Work Phone: Start: 05-24-2023 Computed tomography of abdomen and pelvis with contrast ASSOCIATE PROF[employer] COMM[employer]ICATION[employer] Chapis Joshua Work Phone: Start: 02-02-2023 Esophagogastroduodenoscopy JESSIE botello Work Phone: Start: 10-27-2022 Esophagogastroduodenoscopy MD Rain Hebert Work Phone: Start: 10-20-2022 Ultrasound elastography of liver MD Rain Hebert Work Phone: Start: 07-01-2022 Destruction internal hemorrhoid thermal energy MD Rain Hebert Work Phone: Start: 10-15-2020 Antibody screen Comment on above: Performed By: #### [id number] #### [address] Start: 10-15-2020 Abdom paracentesis dx/ther w/imaging guidance ADALBERTO VOGEL Colonoscopy Chapis Lewis Esophagogastroduoden oscopic electrohydraulic lithotripsy of bezoar in stomach Chapis Lewis H/O: surgery S/P TIPS (transjugular intrahepatic portosystemic shunt) [facility] Work Phone: H/O: surgery S/P TIPS (transjugular intrahepatic portosystemic shunt) [facility] Work Phone: Plan of Treatment Date Care Activity Detail Author Start: 10-23-2025 LIPID SCREEN LIPID SCREEN [facility] Start: 08-23-2024 Plain radiography of pelvis XR pelvis 1-2V [facility] Start: 08-23-2024 Plain X-ray of right femur XR femur RT 2V* [facility] Start: 08-23-2024 XR Femur - right 2 Views [facility] Start: 08-23-2024 XR Pelvis 1 or 2 Views [facility] Start: 08-21-2024 [facility] Start: 08-19-2024 [facility] Start: 08-19-2024 Hospital admission [facility] Start: 08-19-2024 Bacteria identified in Blood by Culture Blood Culture [facility] Start: 07-26-2024 Plain radiography of pelvis XR pelvis 1-2V [facility] Start: 07-26-2024 Plain X-ray of right femur XR femur RT 2V* [facility] Start: 07-26-2024 XR Femur - right 2 Views [facility] Start: 07-26-2024 XR Pelvis 1 or 2 Views [facility] Start: 07-12-2024 End: 07-12-2024 Patient encounter procedure 07/12/2024 1:00 PM EDT Office Visit Gastroenterology [address] [address] Jena Cohen MD [address] [place] [address] biliary cirrhosis f/u - ok per pt Sujit R PSS Gastroenterology Comment on above: biliary cirrhosis f/u - ok per pt Sujit R PSS Start: 07-09-2024 [facility] Start: 07-08-2024 [facility] Start: 07-03-2024 Administration of prophylactic treatment [facility] Start: 07-03-2024 Referral to rehabilitation physician [facility] Start: 07-01-2024 aPTT in Platelet poor plasma by Coagulation assay [facility] Start: 07-01-2024 [facility] Start: 06-30-2024 Consultation [facility] Start: 06-30-2024 [facility] Start: 06-30-2024 Hospital admission [facility] Start: 06-30-2024 Reposition Right Hip Joint with Internal Fixation Device, Percutaneous Approach Reposition Right Hip Joint with Internal Fixation Device, Percutaneous Approach [facility] Start: 05-23-2024 Diabetic foot examination Diabetic Foot Exam [facility] Start: 04-01-2024 DIABETES SCREEN DIABETES SCREEN [facility] Start: 01-18-2024 End: 04-18-2024 [id number] [Mass/volume] in Serum or Plasma ALPHA FETOPROTEIN Lab Routine 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) Expected: 01/18/2024, Expires: 04/18/2024 [facility] Comment on above: Expected: 01/18/2024, Expires: Start: 01-18-2024 End: 01-17-2025 Basic metabolic 2000 panel - Serum or Plasma BASIC METABOLIC PANEL Lab Routine 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) Expected: 01/18/2024, Expires: 01/17/2025 [facility] Comment on above: Expected: 01/18/2024, Expires: Start: 01-18-2024 End: 01-17-2025 CBC W Auto Differential panel - Blood COMPLETE BLOOD COUNT AND DIFFERENTIAL Lab Routine 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) Expected: 01/18/2024, Expires: 01/17/2025 [facility] Comment on above: Expected: 01/18/2024, Expires: Start: 01-18-2024 End: 01-17-2025 Hepatic function 2000 panel - Serum or Plasma HEPATIC FUNCTION PNL Lab Routine 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) Expected: 01/18/2024, Expires: 01/17/2025 [facility] Work Phone: Comment on above: Expected: 01/18/2024, Expires: Start: 01-18-2024 End: 01-17-2025 PT panel - Platelet poor plasma by Coagulation assay PROTHROMBIN TIME Lab Routine 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) Expected: 01/18/2024, Expires: 01/17/2025 [facility] Comment on above: Expected: 01/18/2024, Expires: Start: 01-18-2024 End: 04-18-2024 Retinol [Mass/volume] in Serum or Plasma VITAMIN A/RETINOL Lab Routine 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) Expected: 01/18/2024, Expires: 04/18/2024 [facility] Comment on above: Expected: 01/18/2024, Expires: Start: 01-18-2024 End: 01-18-2024 Patient encounter procedure 01/18/2024 11:30 AM EST Office Visit Gastroenterology [address] [place] [address] Jena Cohen MD [address] [place] [address] Primary Biliary Cirrhosis Follow Up Gastroenterology Comment [...] screening for osteoporosis Expected: 01/05/2024, Expires: 08/03/2024 [facility] Comment on above: Expected: 01/05/2024, Expires: Start: 11-27-2023 Hemoglobin A1c measurement HbA1C [facility] Start: 10-31-2023 Covid-19 Vaccine ( season) Covid-19 Vaccine () [facility] Start: 10-31-2023 Influenza vaccination [facility] Start: 07-20-2023 End: 07-20-2023 ambulatory 07/20/2023 1:30 PM EDT Radiology Radiology [address] [address] F/U (EM) prepped BT Radiology Comment on above: F/U (EM) prepped BT Start: 07-16-2023 [facility] Start: 06-11-2023 End: 09-10-2023 CBC W Auto Differential panel - Blood COMPLETE BLOOD COUNT AND DIFFERENTIAL Lab Routine 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) Expected: 06/11/2023, Expires: 09/10/2023 [facility] Work Phone: Comment on above: Expected: 06/11/2023, Expires: Start: 06-11-2023 End: 09-10-2023 Comprehensive metabolic 2000 panel - Serum or Plasma COMPREHENSIVE METABOLIC PANEL Lab Routine 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) Expected: 06/11/2023, Expires: 09/10/2023 [facility] Work Phone: Comment on above: Expected: 06/11/2023, Expires: 4 Start: 06-11-2023 End: 09-10-2023 Hepatitis B virus surface Ab [Presence] in Serum HEPATITIS B SURFACE ANTIBODY Lab Routine 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) Expected: 06/11/2023, Expires: 09/10/2023 [facility] Work Phone: Comment on above: Expected: 06/11/2023, Expires: 4 Start: 06-11-2023 End: 09-10-2023 PT panel - Platelet poor plasma by Coagulation assay PROTHROMBIN TIME Lab Routine 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) Expected: 06/11/2023, Expires: 09/10/2023 [facility] Work Phone: Comment on above: Expected: 06/11/2023, Expires: Start: 05-24-2023 Drainage of Peritoneal Cavity, Percutaneous Approach Drainage of Peritoneal Cavity, Percutaneous Approach [facility] Start: 05-24-2023 Inspection of Upper Intestinal Tract, Via Natural or Artificial Opening Endoscopic Inspection of Upper Intestinal Tract, Via Natural or Artificial Opening Endoscopic [facility] Start: 05-24-2023 [facility] Start: 05-24-2023 Referral to supervisor computer operations [facility] Start: 05-24-2023 Hospital admission [facility] Start: 05-24-2023 Sleep disorder assessment [facility] Start: 05-24-2023 [facility] Start: 05-24-2023 Computed tomography of abdomen and pelvis with contrast CT abdomen pelvis w con [facility] Start: 05-24-2023 CT Abdomen and Pelvis W contrast IV [facility] Start: 05-24-2023 [facility] Start: 03-01-2023 Behavioral Health Screening Behavioral Health Screening [facility] Start: 02-02-2023 [facility] Start: 11-17-2022 End: 01-17-2023 CBC W Auto Differential panel - Blood CBC + DIFF Lab Routine 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) Expected: 11/17/2022 (Approximate), Expires: 01/17/2023 [facility] Work Phone: Comment on above: Expected: 11/17/2022 (Approximate), Expi res: 01/17/2023 Start: 11-17-2022 End: 01-17-2023 Comprehensive metabolic 2000 panel - Serum or Plasma COMP METABOLIC PANEL Lab Routine 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) Expected: 11/17/2022 (Approximate), Expires: 01/17/2023 [facility] Work Phone: Comment on above: Expected: 11/17/2022 (Approximate), Expi res: 01/17/2023 Start: 10-30-2022 Covid-19 Vaccine () Covid-19 Vaccine () [facility] Start: 10-30-2022 Influenza vaccination INFLUENZA (#1) [facility] Start: 10-27-2022 [facility] Start: 10-20-2022 [facility] Start: 08-17-2022 End: 10-17-2022 PT panel - Platelet poor plasma by Coagulation assay PROTHROMBIN TIME/PT Lab Routine 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) Expected: 08/17/2022 (Approximate), Expires: 10/17/2022 [facility] Work Phone: Comment on above: Expected: 08/17/2022 (Approximate), Expi res: 10/17/2022 Start: 07-01-2022 [facility] Start: 2022 RSV Vaccine (1 - 1-dose 60+ series) RSV Vaccine (1 - 1-dose 60+ series) [facility] Start: 2022 RSV Vaccine (1 - Risk 60-74 years 1-dose series) RSV Vaccine (1 - Risk 60-74 years 1-dose series) [facility] Start: 03-01-2022 DEPRESSION ASSESSMENT DEPRESSION ASSESSMENT [facility] Start: 10-23-2021 Hepatitis B surface antibody level LDL Cholesterol [facility] Start: 07-22-2021 COVID-19 VACCINE (4 - Booster for Pfizer series) COVID-19 VACCINE (4 - Booster for Pfizer series) [facility] Start: 07-22-2021 COVID-19 VACCINE (4 - Pfizer series) COVID-19 VACCINE (4 - Pfizer series) [facility] Start: 11-20-2020 HEPATITIS B (2 of 2 - CpG risk 2-dose series) HEPATITIS B (2 of 2 - CpG risk 2-dose series) [facility] Start: 11-20-2020 Hepatitis B Vaccine (2 of 2 - CpG risk 2-dose series) Hepatitis B Vaccine (2 of 2 - CpG risk 2-dose series) [facility] Start: 11-23-2018 Pneumococcal vaccination Pneumococcal Vaccine (2 of 2 - PCV) [facility] Start: 11-23-2018 Pneumococcal Vaccine: 50+ (2 of 2 - PCV) Pneumococcal Vaccine: 50+ (2 of 2 - PCV) [facility] Start: 2012 SHINGRIX VACCINE (1 of 2) SHINGRIX VACCINE (1 of 2) [facility] Start: 2007 COLOGUARD (FIT-DNA) COLOGUARD (FIT-DNA) [facility] Start: 2007 Colonoscopy COLONOSCOPY [facility] Start: 2007 COLORECTAL CANCER SCREENING COLORECTAL CANCER SCREENING [facility] Start: [address] COLONOGRAPHY [facility] Start: 2007 FECAL OCCULT BLOOD FECAL OCCULT BLOOD [facility] Start: 2007 Screening for malignant neoplasm of colon [facility] Start: 2007 SIGMOIDOSCOPY SIGMOIDOSCOPY [facility] Start: 2002 Mammography MAMMOGRAM [facility] Start: 2002 Screening for malignant neoplasm of breast Mammogram Screening [facility] Start: 1992 HPV TESTING HPV TESTING [facility] Start: 1992 Screening for malignant neoplasm of cervix HPV Testing [facility] Start: 1983 PAP TESTING PAP TESTING [facility] Start: 1983 Screening for malignant neoplasm of cervix [facility] Start: 1981 Urine microalbumin profile [facility] Start: 1980 Annual PCP Team Chronic Disease Visit Annual PCP Team Chronic Disease Visit [facility] Start: 1980 Anxiety Screening Anxiety Screening [facility] Start: 1980 Depression Screening Depression Screening [facility] Start: 1972 Glaucoma screening Dilated Retinal Exam [facility] Start: 1972 Hepatitis B screening Urine Albumin:Creatinine Ratio [facility] Start: 1968 PNEUMOCOCCAL (1 - PCV) PNEUMOCOCCAL (1 - PCV) [facility] End: 07-04-2024 [id number] [Mass/volume] in Serum or Plasma ALPHA FETOPROTEIN Lab Routine Encounter for screening for osteoporosis 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 tumor marker [Mass/volume] in Serum or Plasma [facility] [id number]. 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) Every 3 months for 4 Occurrences starting 07/05/2023 until 07/04/2024 [facility] Comment on above: Every 3 months for 4 Occurrences startin g 07/05/2023 until 07/04/2024 End: 07-04-2024 CBC W Auto Differential panel - Blood COMPLETE BLOOD COUNT AND DIFFERENTIAL Lab Routine Encounter for screening for osteoporosis 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) Every 3 months for 4 Occurrences starting 07/05/2023 until 07/04/2024 [facility] Comment on above: Every 3 months for 4 Occurrences startin g 07/05/2023 until 07/04/2024 Comprehensive metabo lic 2000 panel - Serum or Plasma [facility] End: 08-03-2024 DXA Skeletal system.axial Views for bone density DXA-AXIAL SKELETON Radiology Routine Encounter for screening for osteoporosis 1 Occurrences starting 07/05/2023 until 08/03/2024 [facility] [facility] Work Phone: Comment on above: 1 Occurrences starting 07/05/2023 until 08/03/2024 End: 07-04-2024 Hepatic function 2000 panel - Serum or Plasma HEPATIC FUNCTION PNL Lab Routine Encounter for screening for osteoporosis 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) Every 3 months for 4 Occurrences starting 07/05/2023 until 07/04/2024 [facility] Comment on above: Every 3 months for 4 Occurrences startin g 07/05/2023 until 07/04/2024 INR in Platelet poor plasma by Coagulation assay [facility] End: 08-18-2024 MR Biliary ducts and Pancreatic duct WO and W contrast IV MRI PANC/TRISTAN WO/W IVCON Radiology Routine 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) 1 Occurrences starting 07/20/2023 until 08/18/2024 [facility] Work Phone: Comment on above: 1 Occurrences starting 07/20/2023 until 08/18/2024 End: 08-18-2024 MR Unspecified body region 3D post processing MRI 3D POST PROCESSING Radiology Routine 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) 1 Occurrences starting 07/20/2023 until 08/18/2024 [facility] Comment on above: 1 Occurrences starting 07/20/2023 until 08/18/2024 Patient Education [facility] Work Phone: Patient referral [facility] Work Phone: Prothrombin time (PT) [facility] End: 07-04-2024 PT panel - Platelet poor plasma by Coagulation assay PROTHROMBIN TIME Lab Routine Encounter for screening for osteoporosis 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) Every 3 months for 4 Occurrences starting 07/05/2023 until 07/04/2024 [facility] Comment on above: Every 3 months for 4 Occurrences startin g 07/05/2023 until 07/04/2024 Renal function 1999 panel - Serum or Plasma [facility] Renal function 1999 panel - Serum or Plasma [facility] US.doppler Abdominal vessels US ABD LIVER VASCULAR Radiology Routine S/P TIPS (transjugular intrahepatic portosystemic shunt) 06/03/2023 3:06 PM EDT [facility] Work Phone: US.doppler Unspecifi ed body region US DOPPLER COMPLETE Radiology Routine S/P TIPS (transjugular intrahepatic portosystemic shunt) 06/03/2023 3:06 PM EDT [facility] Work Phone: End: 08-03-2024 US.doppler Unspecified body region US DOPPLER COMPLETE Radiology Routine Encounter for screening for osteoporosis 1 Occurrences starting 07/05/2023 until 08/03/2024 [facility] Comment on above: 1 Occurrences starting 07/05/2023 until 08/03/2024 [facility] Immunizations Immunization Date Immunization Notes Care Provider Lydia bui 10-20-2021 influenza virus vaccine, unspecified formulation Us 2 Work Phone: [facility] 05-27-2021 SARS-CoV-2 mRNA (vaxqpfmgtda-knud-hhpcc se) vaccine Chapis Joshua [facility] 10-23-2020 Hepatitis B vaccine (recombinant), CpG adjuvanted Moon Roddenberry [address] [address] 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 Work Phone: [facility] 10-23-2020 hepatitis B vaccine, adult dosage Chapis Joshua [facility] 10-23-2020 hepatitis B vaccine, unspecified formulation Moon Roddenberry [address] 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 Work Phone: [facility] 07-24-2020 COVID-19 mRNA, Comirnaty (Pfizer) MD Rain Hebert Work Phone: [facility] 07-03-2020 COVID-19 mRNA, Comirnaty (Pfizer) MD Rain Hebert Work Phone: [facility] 11-01-2019 influenza virus vaccine, unspecified formulation Chapis Joshua [facility] 11-23-2017 influenza virus vaccine, unspecified formulation Chapis Joshua [facility] 11-23-2017 pneumococcal polysaccharide vaccine, 23 valent Chapis Joshua [facility] 11-21-2016 influenza virus vaccine, unspecified formulation Chapis Joshua [facility] 11-06-2015 influenza virus vaccine, unspecified formulation Chapis Joshua [facility] 12-12-2014 influenza virus vaccine, unspecified formulation Chapis Joshua [facility] Payers Date Payer Category Payer Medicare [id number] 2023 Self-pay [id number] 2017 Medicare [id number]. [id number] 2017 Medicare (Managed Care) O [employer] HMO [id number]. [id number] 1960 Unknown [id number] 2.16840.1.013114.3.579. 2.647 1960 Unknown [id number] 2.16840.1.365912.3.579. 2.593 1962 Unknown [id number] 2.16.840.1.545733.3.579. 2.593 1962 Unknown [id number] 2.16.840.1.288819.3.579. 2.593 1962 Unknown [id number] 2.16.840.1.563237.3.579. 2.593 1962 Unknown [id number] 2.16.840.1.920149.3.579. 2.593 1962 Unknown [id number] 2.16.840.1.916004.3.579. 2.593 1962 Unknown [id number] 2.16.840.1.188425.3.579. 2.593 1962 Unknown [id number] 2.16.840.1.259278.3.579. 2.593 1962 Unknown [id number] 2.16.840.1.170472.3.579. 2.593 1962 Unknown [id number] 2.16.840.1.044910.3.579. 2.727 1962 Unknown [id number] 2.16.840.1.770688.3.579. 2.727 1962 Unknown [id number] 2.16.840.1.915441.3.579. 2.727 1962 Unknown [id number] 2.16.840.1.729216.3.579. 2.727 1962 Unknown [id number] 2.16.840.1.097183.3.579. 2.727 1962 Unknown [id number] 2.16.840.1.943020.3.579. 2.727 1962 Unknown [id number] 2.16.840.1.752425.3.579. 2.727 1962 Unknown [id number] 2.16.840.1.203878.3.579. 2.727 1962 Unknown [id number] 2.16.840.1.290617.3.579. 2.727 1962 Unknown [id number] 2.16.840.1.579386.3.579. 2.727 1959 Unknown [id number] Unknown [id number] Unknown HCAP/HFA/FAP Active [id number] Unknown [id number] 2.16.840.1.781993.3.579. 2.531 Unknown [id number] 2.16.840.1.429146.3.579. 2.531 Unknown [id number] 2.16.840.1.390876.3.579. 2.531 Unknown [id number] 2.16.840.1.655715.3.579. 2.531 Unknown [id number] 2.16.840.1.083695.3.579. 2.531 Unknown [id number] 2.16.840.1.007844.3.579. 2.531 Unknown [id number] 2.16.840.1.157307.3.579. 2.531 Social History Date Type Detail Facility Start: 08-17-2022 End: 05-26-2023 Sex Assigned At [facility] Start: 12-25-2020 End: 07-10-2024 Tobacco smoking status MOIS Smoker (finding) [facility] Start: 1960 Sex Assigned At Female [facility] Start: 08-17-2022 End: 08-19-2024 Tobacco smoking status [facility] Smokes tobacco daily [facility] History of tobacco use Cigarette Smoker [facility] Start: 08-17-2022 End: 05-26-2023 Cigarettes smoked current (pack per day) - Reported 1 [facility] Start: 08-17-2022 End: 01-18-2024 Tobacco use and exposure Smokeless tobacco non-user [facility] Start: 08-17-2022 End: 01-18-2024 Alcohol intake Ex-drinker (finding) [facility] Start: 1960 Sex Assigned At Not on file [facility] National Score (1-10 0), lower number is lower risk 74 [facility] Start: 04-13-2023 Tobacco smoking stat us MOIS Tobacco smoking consumption unknown (finding) [facility] Has the electric, [employer], oil, or water company threatened to shut off services in your home in past 12Mo No [facility] (I/We) worried елена er (my/our) food would run out before (I/we) got money to buy more. Sometimes true [facility] Start: 01-13-2024 Tobacco smoking status Heavy t obacco smoker (finding) [facility] Start: 06-30-2024 End: 07-27-2024 Sex Female (finding) [facility] Start: 08-20-2024 SDOH Follow up SDOH Follow up [facility] Work Phone: Start: 08-30-2024 Tobacco smoking status Light t obacco smoker (finding) [facility] Sexual Orientation [facility] Medical Equipment Procedure Code Equipment Code Equipment Origin al Text Equipment Identifier Dates ORIF, hip Orthopaedic bone screw, non-bioabsorbable, non-sterile [id number] FDA Start: 07-02-2024 ORIF, hip Femur nail, sterile ( [id number] FDA Start: 07-02-2024 ORIF, hip Spiral blade [id number] FDA Start: 07-02-2024 [id number] Start: 08-23-2013 Comment on above: before meals and at bedtime. Use as instructed lancets (OneTouc h Delica Plus Lancet) Start: 04-18-2023 lancets (OneTouc h Delica Plus Lancet) Start: 04-18-2023 Coil Embl 14mmx4 0cm Conc 3d - [id number] Start: 05-28-2023 Coil Embl 14mmx4 0cm Conc 3d - [id number] Start: 05-28-2023 Stent Endopros 8 cm 8-10mm [place] - [id number] Start: 05-28-2023 lancets (OneTouc h Delica [...] Facility 08-21-2024 Functional status Patient at Baseline [facility] Work Phone: 07-08-2024 Functional status Patient is Pro gressing Toward Baseline [facility] Work Phone: 05-24-2023 Functional status Patient is Pro gressing Toward Baseline [facility] Work Phone: Mental Status Date Assessment Result Facility 08-21-2024 Cognitive function Cognitive Sta tus Patient at Baseline [facility] Work Phone: 07-08-2024 Cognitive function Cognitive Sta tus Patient is Progressing Toward Baseline [facility] Work Phone: 05-24-2023 Cognitive function Cognitive Sta tus Patient is Progressing Toward Baseline [facility] Work Phone: Clinical Notes 10-19-2020 to 07-08-2024 Note Date & Type Note Facility 07-08-2024 Discharge summary [facility] 07-05-2024 Progress note Note Date/Time July 05, 2024 8:40pm [facility] [address] [place] [address] Hospitalist Progress Note Signed Patient: Teresa Lyle MR#: [id number] : 1960 Acct:[id number] Age/Sex: 64 / F Adm Date: 5 Loc: 4N Room: [address] [place] [address] Type: ADM IN Attending Dr: Digna Roberto [...] site?reported approximately 5 years ago at the [facility] - Seen by wound nurses, culture obtained?no [...] <Electronically signed by Digna Roberto MD> 07/05/242039 [facility] Work Phone: 1(910) 790-791405-07-2025 [place] [address] Hospitalist Progress Note Signed Patient: Teresa Lyle MR#: [id number] : 1960 Acct:[id number] Age/Sex: 64 / F Adm Date: 5 Loc: Room: [address] [place] [address] Type: ADM IN Attending Dr: Digna Roberto [...] site?reported approximately 5 years ago at the [facility] - Seen by wound nurses, culture obtained?no [...] 09/22 1148 Signed By: 07/05/24 1217 07/05/242039 [facility]05-07-2025 Radiology Diagnostic study note [facility] [place] [address] [place] [address] Ultrasound Report Signed Patient: Teresa Lyle MR#: [id number] : 1960 Acct:[id number] Age/Sex: 64 / F ADM Date: 5 Loc: Room: [address] [place] [address] Type: ADM IN Attending Dr: Digna Roberto [...] Garces MD,FACS,FSVS 07/05/2024 7:38 AM Dictation Location: [place] [address] Tech: Raegan Wright Transcribed By: PWS 07/05/24737 Dictated By: Harsha Garces MD 07/05/2437 Signed By: 07/05/24737 [facility] Work Phone: 1(131) 460-268205-06-2025 Progress note Author Sylvia Centeno [facility] Note Date/Time July 04, 2024 5:18pm [facility] [address] [place] [address] Hospitalist Progress Note Signed Patient: Teresa Lyle MR#: [id number] : 1960 Acct:[id number] Age/Sex: 64 / F Adm Date: 5 Loc: Room: [address] [place] [address] Type: ADM IN Attending Dr: Digna Roberto [...] <Electronically signed by Digna Roberto MD> 07/04/24 1713 [facility] Work Phone: 1(492) 362-564805-06-2025 Progress note Author Sylvia Centeno [facility] Note Date/Time July 04, 2024 5:18pm [facility] [address] [place] [address] Hospitalist Progress Note Signed Patient: Teresa Lyle MR#: [id number] : 1960 Acct:[id number] Age/Sex: 64 / F Adm Date: 5 Loc: 4N Room: [address] [place] [address] Type: ADM IN Attending Dr: Digna Roberto [...] Ml SUBCUT 07/01/25 07:59 8 units TID.WM.HS [facility] Administration Protocol Insulin Aspart 4 units 07/01/24 [...] site?reported approximately 5 years ago at the [facility] - Seen by wound nurses, culture obtained?pending, [...] <Electronically signed by Digna Roberto MD> 07/04/24 3755 [facility] Work Phone: 1(758) 534-572005-06-2025 [place] [id number] Hospitalist Progress Note Signed Patient: Teresa Lyle MR#: [id number] : 1960 Acct:[id number] Age/Sex: 64 / F Adm Date: 5 Loc: Room: [address] [place] [address] Type: ADM IN Attending Dr: Digna Roberto [...] 1220 Signed By: 07/02/24 1644 07/04/24 1718 [facility]05-06-2025 [place] [address] Hospitalist Progress Note Signed Patient: Teresa Lyle MR#: [id number] : 1960 Acct:[id number] Age/Sex: 64 / F Adm Date: 5 Loc: 4N Room: 7Q5496-5 Type: ADM IN Attending Dr: Digna Roberto [...] site?reported approximately 5 years ago at the [facility] - Seen by wound nurses, culture obtained?pending, [...] 1225 Signed By: 07/04/24 1417 07/04/24 1718 [facility]05-06-2025 Progress note Author Roger Robbins [facility] Note Date/Time July 04, 2024 11:27a m [facility] [address] [place] [address] Orthopedic Progress Note Signed Patient: Teresa Lyle MR#: [id number] : 1960 Acct:[id number] Age/Sex: 64 / F Adm Date: 5 Loc: 4N Room: [id number] Type: ADM IN Attending Dr: Digna Roberto [...] MPV Neut % (Auto) Lymph % (Auto) Power % (Auto) Eos % (Auto) Baso % (Auto) Nucleat RBC Rel Count Neut # (Auto) Lymph # (Auto) Power # (Auto) Eos # (Auto) Baso # [...] MPV Neut % (Auto) Lymph % (Auto) Power % (Auto) Eos % (Auto) Baso % (Auto) Nucleat RBC Rel Count Neut # (Auto) Lymph # (Auto) Power # (Auto) Eos # (Auto) Baso # [...] % (Auto) 67.8 Lymph % (Auto) 16.2 Power % (Auto) 15.1 Eos % (Auto) 0.4 Baso % (Auto) 0.5 Nucleat RBC Rel Count 0.2 Neut # (Auto) 4.7 Lymph # (Auto) 1.1 Power # (Auto) 1.0 H Eos # (Auto) 0.0 Baso # (Auto) 0.0 PHA Creatinine Clear 123.08 Sodium 125 L Potassium 4.9 Chloride 98 Carbon Dioxide 23.7 Anion Gap 8.2 BUN 18 Creatinine 0.42 L Est GFR (CKD-EPI) > 60.0 Glucose 276 H POC Glucose 299 POC Glucose Comment Calcium 7.6 L Blood Type Antibody Screen Crossmatch ([facility]) Micro Microbiology Results: Microbiology 07/03/24 10:45 Umbilical [...] supplementation with every meal. Dr. Roger Robbins [facility] [address] [place], [place] [address] Documented By: Roger Robbins DO 07/04/24 1126 Signed By: <Electronically signed by Roger Robbins DO> 07/04/24 1127 [facility] Work Phone: 1(704) 631-838505-06-[address] [address] Orthopedic Progress Note Signed Patient: Teresa Lyle MR#: [id number] : 1960 Acct:[id number] Age/Sex: 64 / F Adm Date: 5 Loc: 4N Room: [id number] Type: ADM IN Attending Dr: Digna Roberto [...] MPV Neut % (Auto) Lymph % (Auto) Power % (Auto) Eos % (Auto) Baso % (Auto) Nucleat RBC Rel Count Neut # (Auto) Lymph # (Auto) Power # (Auto) Eos # (Auto) Baso # (Auto) PHA Creatinine Clear Sodium Potassium Chloride Carbon Dioxide Anion Gap BUN Creatinine Est GFR (CKD-EPI) Glucose POC Glucose 438 H* 412 H* POC Glucose Comment Calcium Blood Type A Positive Antibody Screen Negative Crossmatch ([facility]) See Detail 07/03/24 07/03/24 07/03/24 12:36 15:26 21:01 Corrected WBC Uncorrected WBC Count RBC Hgb Hct MCV MCH MCHC RDW Plt Count MPV Neut % (Auto) Lymph % (Auto) Power % (Auto) Eos % (Auto) Baso % (Auto) Nucleat RBC Rel Count Neut # (Auto) Lymph # (Auto) Power # (Auto) Eos # (Auto) Baso # (Auto) PHA Creatinine Clear Sodium Potassium Chloride Carbon Dioxide Anion Gap BUN Creatinine Est GFR (CKD-EPI) Glucose POC Glucose 369 279 POC Glucose Comment Cleaned meter Calcium Blood Type Antibody Screen Crossmatch ([facility]) 07/04/24 07/04/24 06:26 07:45 Corrected WBC 6.9 Uncorrected WBC Count 6.9 RBC 3.31 L Hgb 7.7 L Hct 24.7 L MCV 74.5 L MCH 23.3 L MCHC 31.3 L RDW 21.4 H Plt Count 116 L MPV 8.5 Neut % (Auto) 67.8 Lymph % (Auto) 16.2 Power % (Auto) 15.1 Eos % (Auto) 0.4 Baso % (Auto) 0.5 Nucleat RBC Rel Count 0.2 Neut # (Auto) 4.7 Lymph # (Auto) 1.1 Power # (Auto) 1.0 H Eos # (Auto) 0.0 Baso # (Auto) 0.0 PHA Creatinine Clear 123.08 Sodium 125 L Potassium 4.9 Chloride 98 Carbon Dioxide 23.7 Anion Gap 8.2 BUN 18 Creatinine 0.42 L Est GFR (CKD-EPI) > 60.0 Glucose 276 H POC Glucose 299 POC Glucose Comment Calcium 7.6 L Blood Type Antibody Screen Crossmatch ([facility]) Micro Microbiology Results: Microbiology 07/03/24 10:45 Umbilical [...] with every meal. [facility] [address] [place] [address] Documented By: Roger Robbins DO 07/04/24 112 Signed By: 07/04/24 1127 [facility]05-06-2025 Progress note Author Sylvia Centeno [facility] Note Date/Time July 03, 2024 10:23p m [facility] [address] [place] [address] Hospitalist Progress Note Signed Patient: Teresa Lyle MR#: [id number] : 1960 Acct:[id number] Age/Sex: 64 / F Adm Date: 5 Loc: 4N Room: [address] [place] [address] Type: ADM IN Attending Dr: Digna Roberto [...] hernia repair. No records are available in [facility] or the [facility] EMR. I did discuss with her daughter [...] site?reported approximately 5 years ago at the [facility] - Seen by wound nurses, culture obtained?pending, [...] <Electronically signed by Digna Roberto MD> 07/03/24 9030 [facility] Work Phone: 1(653) 558-525705-05-2025 Consult note Author Kraig Hubbard [facility] Note Date/Time July 03, 2024 8:45pm [facility] [address] [place] [address] General Surgery Consult Note Signed Patient: Teresa Lyle MR#: [id number] : 1960 Acct:[id number] Age/Sex: 64 / F Adm Date: 5 Loc: Room: [address] [place] [address] Type: ADM IN Attending Dr: Digna Roberto [...] healing. She does have a specialist in [place] that take care of her. She apparently was not offered additional surgical treatment. [facility] Medical History Esophageal varices with [...] 07/21/23 [History Confirmed 06/30/24] blood sugar diagnostic ([employer] Ultra Test strips) #400 ea 10/05/23 [Rx [...] Chloride 110 mls @ 110 mls/hr IVQAM [facility] Stop: 07/05/24 09:01 Last Admin: 07/03/24 08:41 Dose: 110 mls/hr Ceftriaxone Sodium (Rocephin) 1 gm in 50 mls @ 100 mls/hr IV Q24H [facility] Last Admin: 07/03/24 15:03 Dose: 100 mls/hr Insulin Aspart (Insulin Aspart 300 Units/3 Ml) 0 units SUBCUT TID.WM.HS [facility]; Protocol Stop: 07/01/25 07:59 Last Admin: 07/03/24 17:13 Dose: 14 units Insulin Aspart (Insulin Aspart 300 Units/3 Ml) 4 units SUBCUT TID.AC [facility] Stop: 07/01/25 11:29 Last Admin: 07/03/24 17:13 Dose: 4 units Insulin Glargine (Insulin Glargine 300 Units/3 Ml Insuln.Pen) 24 units SUBCUT DAILY [facility] Stop: 07/01/25 08:59 Last Admin: 07/03/24 08:30 Dose: 24 units Lactulose (Lactulose 20 Gm/30 Ml Udc) 10 gm PO DAILY PRN PRN Reason: Constipation Stop: 06/30/25 21:59 Lidocaine HCl (Lidocaine 1% 50 Ml Vial) 0.1 ml INTRADERMA PREOP PRN PRN Reason: Venipuncture x 1 Dose Magnesium Oxide (Magnesium Oxide 400 Mg Tablet) 400 mg PO DAILY [facility] Stop: 07/01/25 08:59 Last Admin: 07/03/24 08:29 Dose: 400 mg Nicotine (Nicotine Patch 21 Mg/24hr 1 Each Patch.Td24) 1 each TRANSDERML DAILY [facility] Stop: 08/11/24 09:01 Last Admin: 07/03/24 08:32 Dose: Not Given Ursodiol 250 Mg (Tablet) 250 mg PO BID [facility] Stop: 07/01/25 08:59 Last Admin: 07/03/24 08:33 [...] 50 Mg Tablet) 50 mg PO DAILY [facility] Stop: 07/01/25 08:59 Last Admin: 07/03/24 08:30 [...] % (Auto) 72.8, Lymph % (Auto) 10.5, Power % (Auto) 15.7, Eos % (Auto) 0.4, Baso % (Auto) 0.6, Nucleat RBC Rel Count 0.1, Neut # (Auto) 4.2, Lymph # (Auto) 0.6 L, Power # (Auto) 0.9 H, Eos # (Auto) [...] % (Auto) 65.5, Lymph % (Auto) 16.8, Power % (Auto) 14.2, Eos % (Auto) 1.1, Baso % (Auto) 2.4, Nucleat RBC Rel Count 0.1, Neut # (Auto) 3.4, Lymph # (Auto) 0.9 L, Power # (Auto) 0.7, Eos # (Auto) 0.1, Baso # (Auto) 0.1, PT14.0 H, INR 1.2, B- Natriuretic Peptide 50.0 07/01/24 22:11: Corrected WBC 5.3, Uncorrected WBC Count 5.3, RBC 3.85, Hgb 9.0 L, Hct 28.2 L, MCV 73.2 L, MCH 23.5 L, MCHC 32.1, RDW 21.2 H, Plt Count 85 L D, MPV 8.4, Neut % (Auto) 64.6, Lymph % (Auto) 18.3, Power % (Auto) 13.8, Eos % (Auto) 2.0, Baso % (Auto) 1.3, Nucleat RBC Rel Count 0.1, Neut # (Auto) 3.4, Lymph # (Auto) 1.0, Power # (Auto) 0.7, Eos # (Auto) 0.1, [...] % (Auto) 71.7, Lymph % (Auto) 13.6, Power % (Auto) 12.8, Eos % (Auto) 1.1, Baso % (Auto) 0.8, Nucleat RBC Rel Count 0.1, Neut # (Auto) 4.2, Lymph # (Auto) 0.8 L, Power # (Auto) 0.8, Eos # (Auto) 0.1, [...] Appearance Clear, Urine pH 6.5, Ur Specific [place] 1.027, Urine Protein Negative, Urine Glucose (UA) [...] % (Auto) 74.5, Lymph % (Auto) 13.2, Power % (Auto) 10.2, Eos % (Auto) 1.0, Baso % (Auto) 1.1, Nucleat RBC Rel Count 0.0, Neut # (Auto) 3.9, Lymph # (Auto) 0.7 L, Power # (Auto) 0.5, Eos # (Auto) 0.1, [...] original surgeon or to someone at the [facility] where she is being treated for her cirrhosis. I will sign off the case at this time. Documented By: Kraig Hubbard DO 07/03/24 20 37 Signed By: <Electronically signed by Kraig Hubbard DO> 07/03/242044 [facility] Work Phone: 1(152) 229-371205-05-2025 [place] [address] Hospitalist Progress Note Signed Patient: Teresa Lyle MR#: [id number] : 1960 Acct:[id number] Age/Sex: 64 / F Adm Date: 5 Loc: Room: [address] [place] [address] Type: ADM IN Attending Dr: Digna Roberto [...] hernia repair. No records are available in [facility] or the [facility] EMR. I did discuss with her daughter [...] Insuln.Pen SUBCUT 07/01/25 08:59 24 units DAILY [facility] Administration Lactulose 10 gm 06/30/24 22:00 Lactulose [...] site?reported approximately 5 years ago at the [facility] - Seen by wound nurses, culture obtained?pending, [...] 1038 Signed By: 07/03/24 1432 07/03/24 2223 [facility]05-05-2025 [place] [address] General Surgery Consult Note Signed Patient: Teresa Lyle MR#: [id number] : 1960 Acct:[id number] Age/Sex: 64 / F Adm Date: 5 Loc: N Room: [address] [place] [address] Type: ADM IN Attending Dr: Digna Roberto [...] healing. She does have a specialist in [place] that take care of her. She apparently was not offered additional surgical treatment. [facility] Medical History Esophageal varices with [...] 07/21/23 [History Confirmed 06/30/24] blood sugar diagnostic ([employer] Ultra Test strips) #400 ea 10/05/23 [Rx [...] 20 Mg Tablet) 20 mg PO DAILY [facility] Stop: 07/01/25 08:59 Last Admin: 07/03/24 08:30 [...] 1,000 mls @ 50 mls/hr IV .Q20H [facility] Stop: 07/01/25 00:04 Last Admin: 07/03/24 13:04 Dose: 50 mls/hr Ferric Sodium Gluconate Complex 125 mg/ Sodium Chloride 110 mls @ 110 mls/hr IVQAM [facility] Stop: 07/05/24 09:01 Last Admin: 07/03/24 08:41 Dose: 110 mls/hr Ceftriaxone Sodium (Rocephin) 1 gm in 50 mls @ 100 mls/hr IV Q24H [facility] Last Admin: 07/03/24 15:03 Dose: 100 mls/hr Insulin Aspart (Insulin Aspart 300 Units/3 Ml) 0 units SUBCUT TID.WM.HS [facility] [facility]; Protocol Stop: 07/01/25 07:59 Last Admin: 07/03/24 17:13 Dose: 14 units Insulin Aspart (Insulin Aspart 300 Units/3 Ml) 4 units SUBCUT TID.AC [facility] Stop: 07/01/25 11:29 Last Admin: 07/03/24 17:13 Dose: 4 units Insulin Glargine (Insulin Glargine 300 Units/3 Ml Insuln.Pen) 24 units SUBCUT DAILY [facility] Stop: 07/01/25 08:59 Last Admin: 07/03/24 08:30 Dose: 24 units Lactulose (Lactulose 20 Gm/30 Ml Udc) 10 gm PO DAILY PRN PRN Reason: Constipation Stop: 06/30/25 21:59 Lidocaine HCl (Lidocaine 1% 50 Ml Vial) 0.1 ml INTRADERMA PREOP PRN PRN Reason: Venipuncture x 1 Dose Magnesium Oxide (Magnesium Oxide 400 Mg Tablet) 400 mg PO DAILY [facility] Stop: 07/01/25 08:59 Last Admin: 07/03/24 08:29 Dose: 400 mg Nicotine (Nicotine Patch 21 Mg/24hr 1 Each Patch.Td24) 1 each TRANSDERML DAILY [facility] Stop: 08/11/24 09:01 Last Admin: 07/03/24 08:32 Dose: Not Given Ursodiol 250 Mg (Tablet) 250 mg PO BID [facility] Stop: 07/01/25 08:59 Last Admin: 07/03/24 08:33 [...] 40 Mg Tablet.Dr) 40 mg PO DAILY [facility] Stop: 07/01/25 08:59 Last Admin: 07/03/24 08:29 Dose: 40 mg Polyethylene Glycol (Polyethylene Glycol 3350 17 Gm Powd.Pack) 17 gm PO TID [facility] Stop: 07/01/25 08:59 Last Admin: 07/03/24 14:23 Dose: 17 gm Sennosides (Sennosides 8.6 Mg Tablet) 8.6 mg PO BID [facility] Stop: 07/01/25 08:59 Last Admin: 07/03/24 08:33 [...] 50 Mg Tablet) 50 mg PO DAILY [facility] Stop: 07/01/25 08:59 Last Admin: 07/03/24 08:30 [...] % (Auto) 72.8, Lymph % (Auto) 10.5, Power % (Auto) 15.7, Eos % (Auto) 0.4, Baso % (Auto) 0.6, Nucleat RBC Rel Count 0.1, Neut# (Auto) 4.2, Lymph # (Auto) 0.6 L, Power # (Auto) 0.9 H, Eos # (Auto) [...] % (Auto) 65.5, Lymph % (Auto) 16.8, Power % (Auto) 14.2, Eos % (Auto) 1.1, Baso % (Auto) 2.4, Nucleat RBC Rel Count 0.1, Neut # (Auto) 3.4, Lymph # (Auto) 0.9 L, Power # (Auto) 0.7, Eos # (Auto) 0.1, Baso # (Auto) 0.1, PT14.0 H, INR 1.2, B-Natriuretic Peptide 50.0 07/01/24 22:11: Corrected WBC 5.3, Uncorrected WBC Count 5.3, RBC 3.85, Hgb 9.0 L, Hct 28.2 L, MCV 73.2 L, MCH 23.5 L, MCHC 32.1, RDW 21.2 H, Plt Count 85 L D, MPV 8.4, Neut % (Auto) 64.6, Lymph % (Auto) 18.3, Power % (Auto) 13.8, Eos % (Auto) 2.0, Baso % (Auto) 1.3, Nucleat RBC Rel Count 0.1, Neut # (Auto) 3.4, Lymph # (Auto) 1.0, Power # (Auto) 0.7, Eos # (Auto) 0.1, [...] % (Auto) 71.7, Lymph % (Auto) 13.6, Power % (Auto) 12.8, Eos % (Auto) 1.1, Baso % (Auto) 0.8, Nucleat RBC Rel Count 0.1, Neut # (Auto) 4.2, Lymph # (Auto) 0.8 L, Power # (Auto) 0.8, Eos # (Auto) 0.1, [...] % (Auto) 74.5, Lymph % (Auto) 13.2, Power % (Auto) 10.2, Eos % (Auto) 1.0, Baso % (Auto) 1.1, Nucleat RBC Rel Count 0.0, Neut # (Auto) 3.9, Lymph # (Auto) 0.7 L, Power # (Auto) 0.5, Eos # (Auto) 0.1, [...] original surgeon or to someone at the [facility] where she is being treated for her cirrhosis. I will sign off the case at this time. Documented By: Kraig Hubbard, 07/03/24 Signed By: 07/03/242044 [facility]05-05-2025 Consult note Author Tremayne Pak [facility] Note Date/Time July 03, 2024 1:47pm [facility] [address] [place] [address] Physiatry (Rehab) Consult Note Signed Patient: Teresa Lyle MR#: [id number] : 1960 Acct:[id number] Age/Sex: 64 / F Adm Date: 5 Loc: Room: [address] [place] [address] Type: ADM IN Attending Dr: Digna Roberto MD Copies to: MD Chapis Delatorre 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 Digna Roberto MD~ HPI Consult Date: 07/03/24 [...] negative unless noted below or in HPI [facility] Medical History Esophageal varices with [...] 07/21/23 [History Confirmed 06/30/24] blood sugar diagnostic (Direct Grid TechnologiesTouch Ultra Test strips) #400 ea 10/05/23 [Rx [...] MPV Neut % (Auto) Lymph % (Auto) Power % (Auto) Eos % (Auto) Baso % (Auto) Nucleat RBC Rel Count Neut # (Auto) Lymph # (Auto) Power # (Auto) Eos # (Auto) Baso # [...] % (Auto) 72.8 Lymph % (Auto) 10.5 Power % (Auto) 15.7 Eos % (Auto) 0.4 Baso % (Auto) 0.6 Nucleat RBC Rel Count 0.1 Neut # (Auto) 4.2 Lymph # (Auto) 0.6 L Power # (Auto) 0.9 H Eos # (Auto) [...] MPV Neut % (Auto) Lymph % (Auto) Power % (Auto) Eos % (Auto) Baso % (Auto) Nucleat RBC Rel Count Neut # (Auto) Lymph # (Auto) Power # (Auto) Eos # (Auto) Baso # [...] physician supervision is bothreasonable and necessary, including [id number] visits at least 3 days/week with the [...] chart, including current orders, allied health and public relations consultant notes, labs/imaging and performed carbone elements of exam and I formulated the plan of care and facilitated the medical decision making. I completed a substantive portion of this encounter, the medical decision makingportion of this note in its entirety, including Allied health note review, nursing note review, public relations consultant note review, discussion with nursing and case management, and more than 50% of my time was spent on counseling and coordination of care, time spent 50 minutes Documented By: Tremayne Pak MD 1332 Signed By: <Electronically signed by Tremayne Pak MD> 07/03/24 1342 [facility] Work Phone: 1(184) 273-810505-05-2025 [place] [address] Physiatry (Rehab) Consult Note Signed Patient: Teresa Lyle MR#: [id number] : 1960 Acct:[id number] Age/Sex: 64 / F Adm Date: 5 Loc: 4N Room: [address] [place] [address] Type: ADM IN Attending Dr: Digna Roberto MD Copies to: MD Chapis Delatorre 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 Digna Roberto MD~ HPI Consult Date: 07/03/24 Requesting Physician: Digna Roberto MD Primary Care Provider: Chapis Lewis ASSOCIATE PROFESSOR OF COMMUNICATION-C Consult Narrative Reason for consult: Evaluation for [...] negative unless noted below or in HPI [facility] Medical History Esophageal varices with [...] 07/21/23 [History Confirmed 06/30/24] blood sugar diagnostic (Direct Grid TechnologiesTouch Ultra Test strips) #400 ea 10/05/23 [Rx [...] MPV Neut % (Auto) Lymph % (Auto) Power % (Auto) Eos % (Auto) Baso % (Auto) Nucleat RBC Rel Count Neut # (Auto) Lymph # (Auto) Power # (Auto) Eos # (Auto) Baso # [...] % (Auto) 72.8 Lymph % (Auto) 10.5 Power % (Auto) 15.7 Eos % (Auto) 0.4 Baso % (Auto) 0.6 Nucleat RBC Rel Count 0.1 Neut # (Auto) 4.2 Lymph # (Auto) 0.6 L Power # (Auto) 0.9 H Eos # (Auto) [...] MPV Neut % (Auto) Lymph % (Auto) Power % (Auto) Eos % (Auto) Baso % (Auto) Nucleat RBC Rel Count Neut # (Auto) Lymph # (Auto) Power # (Auto) Eos # (Auto) Baso # [...] physician supervision is bothreasonable and necessary, including [id number]-hf-[id number] visits at least 3 days/week with the [...] chart, including current orders, allied health and public relations consultant notes, labs/imaging and performed carbone elements of exam and I formulated the plan of care and facilitated the medical decision making. I completed a substantive portion of this encounter, the medical decision makingportion of this note in its entirety, including Allied health note review, nursing note review, public relations consultant note review,discussion with nursing and case management, and more than 50% of my time was spent on counseling and coordination of care, time spent 50 minutes Documented By: Tremayne Pak MD 1332 Signed By: 07/03/24 1347 [facility]05-05-2025 Progress note Author Roger Robbins [facility] Note Date/Time July 03, 2024 8:21am [facility] [address] [place], [place] [address] Orthopedic Progress Note Signed Patient: Teresa Lyle MR#: [id number] : 1960 Acct:[id number] Age/Sex: 64 / F Adm Date: 5 Loc: 4N Room: [id number] Type: ADM IN Attending Dr: Digna Roberto [...] MPV Neut % (Auto) Lymph % (Auto) Power % (Auto) Eos % (Auto) Baso % (Auto) Nucleat RBC Rel Count Neut # (Auto) Lymph # (Auto) Power # (Auto) Eos # (Auto) Baso # [...] MPV Neut % (Auto) Lymph % (Auto) Power % (Auto) Eos % (Auto) Baso % (Auto) Nucleat RBC Rel Count Neut # (Auto) Lymph # (Auto) Power # (Auto) Eos # (Auto) Baso # [...] % (Auto) 72.8 Lymph % (Auto) 10.5 Power % (Auto) 15.7 Eos % (Auto) 0.4 Baso % (Auto) 0.6 Nucleat RBC Rel Count 0.1 Neut # (Auto) 4.2 Lymph # (Auto) 0.6 L Power # (Auto) 0.9 H Eos # (Auto) [...] supplementation with every meal. Dr. Roger Robbins [facility] [address] [facility] [address] [facility] [place], [place] [address] Documented By: Roger Robbins DO 07/03/24 0734 Signed By: <Electronically signed by Roger Robbins DO> 07/03/24 0821 [facility] Work Phone: 1(382) 484-124005-05-[address] [address] Orthopedic Progress Note Signed Patient: Teresa Lyle MR#: [id number] : 1960 Acct:[id number] Age/Sex: 64 / F Adm Date: 5 Loc: 4N Room: [address] [place] [address] Type: ADM IN Attending Dr: Digna Roberto [...] MPV Neut % (Auto) Lymph % (Auto) Power % (Auto) Eos % (Auto) Baso % (Auto) Nucleat RBC Rel Count Neut # (Auto) Lymph # (Auto) Power # (Auto) Eos # (Auto) Baso # [...] MPV Neut % (Auto) Lymph % (Auto) Power % (Auto) Eos % (Auto) Baso % (Auto) Nucleat RBC Rel Count Neut # (Auto) Lymph # (Auto) Power # (Auto) Eos # (Auto) Baso # [...] % (Auto) 72.8 Lymph % (Auto) 10.5 Power % (Auto) 15.7 Eos % (Auto) 0.4 Baso % (Auto) 0.6 Nucleat RBC Rel Count 0.1 Neut # (Auto) 4.2 Lymph # (Auto) 0.6 L Power # (Auto) 0.9 H Eos # (Auto) [...] with every meal. [facility]. [facility] [address] [place] [address] Documented By: Roger Robbins DO 07/03/24 0734 Signed By: 07/03/24 0821 [facility]05-04-2025 Progress note Author Yahaira Turner [facility] Note Date/Time July 02, 2024 1:39pm [facility] [address] [place] [address] Hospitalist Progress Note Signed Patient: Teresa Lyle MR#: [id number] : 1960 Acct:[id number] Age/Sex: 64 / F Adm Date: 5 Loc: 4N Room: [id number] Type: ADM IN Attending Dr: Digna Roberto [...] mg/ Sodium IV 07/05/24 09:01 Chloride QAM [facility] Insulin Aspart 0 units 07/01/24 08:00 07/01/24 09:04 Insulin Aspart 300 Units/3 Ml SUBCUT 07/01/25 07:59 8 units TID.WM.HS [facility] Administration Protocol Insulin Glargine 24 units 07/01/24 [...] 400 Mg Tablet PO 07/01/25 08:59 DAILY [facility] Non-Formulary Medication 0 unit 07/01/24 08:30 Insulin Aspart (Niacinamide) [Fiasp Flextouch U-100 Insulin] SUBCUT 07/02/2607:29 USEASDIRECTD [facility] Ursodiol 250 Mg 250 mg 07/01/24 09:00 Tablet PO 07/01/25 08:59 BID [facility] Ondansetron HCl 4 mg 06/30/24 22:00 Ondansetron 4 Mg/2 Ml Vial IV-PUSH 06/30/25 21:59 Q6H PRN Nausea And Vomiting Oxycodone HCl 5 mg 06/30/24 22:00 06/30/24 23:33 Oxycodone Ir 5 Mg Tablet PO 5 mg Q6HR PRN Administration Pain Scale 4 - 7 Pantoprazole Sodium 40 mg 07/01/24 09:00 Pantoprazole 40 Mg Tablet. PO 07/01/25 08:59 DAILY [facility] Polyethylene Glycol 17 gm 07/01/24 09:00 Polyethylene Glycol 3350 17 Gm Powd.Pack PO 07/01/25 08:59 TID [facility] Sennosides 8.6 mg 07/01/24 09:00 Sennosides 8.6 [...] signed by Digna Roberto MD> 07/02/24 1339 [facility] Work Phone: 1(252) 780-592705-04-2025 [place] [address] Hospitalist Progress Note Signed Patient: Teresa Lyle MR#: [id number] : 1960 Acct:[id number] Age/Sex: 64 / F Adm Date: 5 Loc: 4N Room: [address] [place] [address] Type: ADM IN Attending Dr: Digna Roberto [...] 20 Mg Tablet PO 07/01/25 08:59 DAILY [facility] Glucose 0 gm 06/30/24 22:05 Dextrose 40% [...] mg/ Sodium IV 07/05/24 09:01 Chloride QAM [facility] Insulin Aspart 0 units 07/01/24 08:00 07/01/24 09:04 Insulin Aspart 300 Units/3 Ml SUBCUT 07/01/25 07:59 8 units TID.WM.HS [facility] Administration Protocol Insulin Glargine 24 units 07/01/24 [...] 400 Mg Tablet PO 07/01/25 08:59 DAILY [facility] Non-Formulary Medication 0 unit 07/01/24 08:30 Insulin Aspart (Niacinamide) [Fiasp Flextouch U-100 Insulin] SUBCUT 07/02/2607:29 USEASDIRECTD [facility] Ursodiol 250 Mg 250 mg 07/01/24 09:00 Tablet PO 07/01/25 08:59 BID [facility] Ondansetron HCl 4 mg 06/30/24 22:00 Ondansetron [...] 17 Gm Powd.Pack PO 07/01/25 08:59 TID [facility] Sennosides 8.6 mg 07/01/24 09:00 Sennosides 8.6 Mg Tablet PO 07/01/25 08:59 BID [facility] Sodium Chloride 0 ml 06/30/24 19:23 06/30/24 20:28 Sodium Chloride 0.9 % 10 Ml Syringe IV-PUSH 06/30/25 19:22 10 ml PRN PRN Administration Flush Sodium Chloride 0 ml 07/01/24 07:00 Sodium Chloride 0.9 % 10 Ml Syringe IV-PUSH 07/01/25 06:59 PRN PRN Flush Spironolactone 50 mg 07/01/24 09:00 Spironolactone 50 Mg Tablet PO 07/01/25 08:59 DAILY [facility] A&P - Hospitalist Assessment/Plan (1) Closed right [...] 1015 Signed By: 07/01/24 1140 07/02/24 1339 [facility]05-03-2025 Consult note Author Roger Robbins [facility] Note Date/Time July 01, 2024 11:33a m [facility] [address] [place] [address] Orthopedic Consult Note Signed Patient: Teresa Lyle MR#: [id number] : 1960 Acct:[id number] Age/Sex: 64 / F Adm Date: 5 Loc: Room: [address] [place] [address] Type: ADM IN Attending Dr: Digna Roberto [...] numbness or tingling ofthe right lower extremity [facility] Medical History Esophageal varices with [...] % (Auto) 71.7, Lymph % (Auto) 13.6, Power % (Auto) 12.8, Eos % (Auto) 1.1, Baso % (Auto) 0.8, Nucleat RBC Rel Count 0.1, Neut # (Auto) 4.2, Lymph # (Auto) 0.8 L, Power # (Auto) 0.8, Eos # (Auto) 0.1, Baso # (Auto) 0.0 07/01/24 00:26: POC Glucose 430 H*, POC Glucose Comment 06/30/24 22:41: POC Glucose Comment Cleaned meter 06/30/24 22:41: POC Glucose 408 H*, POC Glucose Comment 06/30/24 20:50: Urine Color Light-yellow, Urine Appearance Clear, Urine pH 6.5, Ur Specific [place] 1.027, Urine Protein Negative, Urine Glucose (UA) [...] % (Auto) 74.5, Lymph % (Auto) 13.2, Power % (Auto) 10.2, Eos % (Auto) 1.0, Baso % (Auto) 1.1, Nucleat RBC Rel Count 0.0, Neut # (Auto) 3.9, Lymph # (Auto) 0.7 L, Power # (Auto) 0.5, Eos # (Auto) 0.1, [...] poor healing. I have advised against the correction use of narcotic pain medication. I have [...] 0704 Signed By: <Electronically signed by Roger Robbisn DO> 07/01/24 4021 [facility] Work Phone: 1(781) 562-500305-03-[address] [address] Orthopedic Consult Note Signed Patient: Teresa Lyle MR#: [id number] : 1960 Acct:[id number] Age/Sex: 64 / F Adm Date: 5 Loc: 4N Room: [id number] Type: ADM IN Attending Dr: Digna Roberto [...] numbness or tingling ofthe right lower extremity [facility] Medical History Esophageal varices with [...] 07/21/23 [History Confirmed 06/30/24] blood sugar diagnostic (Second & [employer] Ultra Test strips) #400 ea 10/05/23 [Rx [...] % (Auto) 71.7, Lymph % (Auto) 13.6, Power % (Auto) 12.8, Eos % (Auto) 1.1, Baso % (Auto) 0.8, Nucleat RBC Rel Count 0.1, Neut # (Auto) 4.2, Lymph # (Auto) 0.8 L, Power # (Auto) 0.8, Eos # (Auto) 0.1, [...] % (Auto) 74.5, Lymph % (Auto) 13.2, Power % (Auto) 10.2, Eos % (Auto) 1.0, Baso % (Auto) 1.1, Nucleat RBC Rel Count 0.0, Neut # (Auto) 3.9, Lymph # (Auto) 0.7 L, Power # (Auto) 0.5, Eos # (Auto) 0.1, [...] poor healing. I have advised against the exterminator termite use of narcotic pain medication. I have [...] DO 07/01/24 0704 Signed By: 07/01/24 1133 [facility]05-03-2025 History and physical note Author Coco Zamora [facility] Note Date/Time July 01, 2024 12:11a m [facility] [address] [place] [address] Hospitalist H&P Signed Patient: Teresa Lyle MR#: [id number] : 1960 Acct:[id number] Age/Sex: 64 / F Adm Date: 5 Loc: 4N Room: [address] [place] [address] Type: ADM IN Attending Dr: Sarah Helm MD Copies to: MD Coco Finn CNP, NIGHT COURT MAGISTRATE~ HPI DATE OF EXAMINATION: 06/30/24 CHIEF COMPLAINT: [...] transportation. She sees a Dr. Cohen in [place] for her liver disease and she is [...] unless noted in the HPI or below. [facility] Medical History Esophageal varices with [...] 07/21/23 [History Confirmed 06/30/24] blood sugar diagnostic (Direct Grid TechnologiesTouch Ultra Test strips) #400 ea 10/05/23 [Rx [...] % (Auto) 13.2 % (.) 06/30/24 20:36 Power % (Auto) 10.2 % (.) 06/30/24 20: Eos % (Auto) 1.0 % (.) 06/30/24: Baso % (Auto) 1.1 % (.) 06/30/24 20: Nucleat RBC Rel Count 0.0 /100 WBC (0-0.5) 06/30/24: Neut # (Auto) 3.9 x10E3/uL (1.8-7.7) 06/30/24 20: Lymph # (Auto) 0.7 x10E3/uL (1.00-4.8) L 06/30/24 20:36 Power # (Auto) 0.5 x10E3/uL (0.0-0.8) 06/30/24 20: [...] pH 6.5 (5.0-9.0) 06/30/24 20:50 Ur Specific [place] 1.027 (1.001-1.030) 06/30/24 20:50 Urine Protein Negative [...] signed by Sarah Helm MD> 07/01/24 0011 [facility] Work Phone: 1(303) 503-796805-03-2025 History and physical [place] [id number] Hospitalist H&P Signed Patient: Teresa Lyle MR#: [id number] : 1960 Acct:[id number] Age/Sex: 64 / F Adm Date: 5 Loc: 4N Room: [id number] Type: ADM IN Attending Dr: Sarah Helm MD Copies to: MD Coco Finn CNP, NIGHT COURT MAGISTRATE~ HPI DATE OF EXAMINATION: 06/30/24 CHIEF COMPLAINT: [...] transportation. She sees a Dr. Cohen in [place] for her liver disease and she is [...] 07/21/23 [History Confirmed 06/30/24] blood sugar diagnostic (Second & [employer]uch Ultra Test strips) #400 ea 10/05/23 [Rx [...] % (Auto) 13.2 % (.) 06/30/24 20:36 Power % (Auto) 10.2 % (.) 06/30/24 20:36 Eos % (Auto) 1.0 % (.) 06/30/24 20: Baso % (Auto) 1.1 % (.) 06/30/24 20:36 Nucleat RBC Rel Count 0.0 /100 WBC (0-0.5) 06/30/24 20:36 Neut # (Auto) 3.9 x10E3/uL (1.8-7.7) 06/30/24 20:36 Lymph # (Auto) 0.7 x10E3/uL (1.00-4.8) L 06/30/24 20:36 Power # (Auto) 0.5 x10E3/uL (0.0-0.8) 06/30/24 20:36 [...] pH 6.5 (5.0-9.0) 06/30/24 20:50 Ur Specific [place] 1.027 (1.001-1.030) 06/30/24 20:50 Urine Protein Negative [...] of days): 3 Documented By: Coco Zamora, NIGHT COURT MAGISTRATE 06/30/242206 Signed By: 06/30/24225607/01/24 0011 [facility]05-02-2025 Evaluation note* Diagnosis Onset Date Resolution Status [...] D deficiency acute June 30, 2024 9:16pm [facility] Work Phone: 1(405) 615-681505-02-2025 Evaluation note* Diagnosis Onset Date Resolution Status [...] al states noneactive July 26, 2024 2:13pm [facility] Work Phone: 1(678) 464-461105-02-2025 Evaluation note* Diagnosis Onset Date Resolution Status [...] al states noneactive August 23, 2024 2:42pm [facility] Work Phone: 1(421) 109-268505-02-2025 Radiology Diagnostic study [facility] [place] [address] [place], [place] [address] CT Scan Report Signed Patient: Teresa Lyle MR#: [id number] : 1960 Acct:[id number] Age/Sex: 64 / F ADM Date: 5 Loc: ER Room: Type: [facility] ER Attending Dr: Copies to: Harsha Wren [...] Lange M.D. 06/30/2024 8:34 PM Dictation Location: [place] [address] Transcribed By: [facility] 06/30/242033 Dictated By: Navarro Lange MD 06/30/242030 Signed By: 06/30/242033 [facility] Work Phone: 1(518) 843-957705-02-2025 [facility]iology [facility] [address] [address] [address] Scan Report Signed Patient: Teresa Lyle MR#: [id number] : 1960 Acct:[id number] Age/Sex: 64 / F ADM Date: 5 [...] Lange M.D. 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 Service: ? Author Type: ? Type: Progress Notes Filed: 06/28/2024 11:18 Note Text: [facility] Provider Action/FYI Patient is referred by Gary for screening mammogram. LMOVM to call me back to schedule. [facility]. [facility] History of Present illness Narrative* Laz Reed - 06/28/2024 11:14 AM EDT [facility] Provider Action/FYI Patient is referred by Gary for screening mammogram. LMOVM to call me back to schedule. Letter sent. Laz Reed [facility] NotePatient Outreach ([facility]) TERESA LYLE ([id number]) 1960 F Date Time Provider Department 06/28/24 NO FOLLOW UP REQUIRED HEMACO During your visit today, we recorded the following information about you: Laz Reed 06/28/2024 11:18 AM Signed [facility] Provider Action/THEODOREI Patient is referred by Gary for screening mammogram. LMOVM to call me back to schedule. Letter sent. Laz Reed Allergies As of Date: 06/28/2024 (No Known Allergies) Date Reviewed: 01/18/2024 Reviewed by: Arelis Montalvo LPN - Fully Assessed Reason for Visit: Community Outreach [Other] Cmt: Screening Mammogram Referral/ Open Pit Quarry Supervisor Prescriptions as of 06/28/2024 - ergocalciferol 50,000 [...] - blood sugar diagnostic (ONE TOUCH TEST [facility]) - gabapentin (NEURONTIN) 300 mg capsule Take [...] Text Encounter Status:Closed by LAZ REED on 06/28/24[facility] 06-27-2024 NoteHNO ID: [id number] Author: ?, ?, ? Service: ? Author Type: ? Type: Progress Notes Filed: 06/27/2024 15:39 Note Text: [facility] Provider Action/FYI Patient is referred by Gary for screening mammogram. LMOVM to call me back to schedule. [facility] History of Present illness Narrative* Laz Reed - 06/27/2024 3:12 PM EDT [facility] Provider Action/FYI Patient is referred by Gary for screening mammogram. LMOVM to call me back to schedule. Laz Reed documented [facility]25 NotePatient Outreach ([facility]) TERESA LYLE ([id number]) 1960 F Date Time Provider Department 06/27/24 NO FOLLOW UP REQUIRED HEMACO During your visit today, we recorded the following information about you: Laz Reed 06/27/2024 3:39 PM Signed [facility] Provider Action/THEODOREI Patient is referred by Gary for screening mammogram. LMOVM to call me back to schedule. Laz Reed Allergies As of Date: 06/27/2024 (No Known Allergies) Date Reviewed: 01/18/2024 Reviewed by: Rocky Jason, Arelis, EXECUTIVE DIRECTOR OF NURSING - Fully Assessed Reason for Visit: Community Outreach [Other] Cmt: Screening Mammogram Referral/ Open Pit Quarry Supervisor Prescriptions as of 06/27/2024 - ergocalciferol 50,000 [...] 05/31/2023 Encounter Status:Closed by LAZ REED on 06/27/24[facility] 04-18-2024 Evaluation + Plan note Diagnostic Tests Pending * CBC w/ Auto Diff 04/18/24 * Comprehensive Metabolic Panel 04/18/24 * HgbA1c 04/18/24 * Lipid Panel 04/18/24 * Thyroid Stimulating Hormone 04/18/24 [facility] [id number] Instructions* Patient Instructions* Noemi Lockett APRN.CNP - 01/18/2024 12:01 PM EST Blood work in April locally Schedule bone density scan to be done near you Continue with medications as prescribed Follow up in [address] Cohen documented [facility]-2024 NoteHNO ID: [id number] Author: NOEMI LOCKETT APRN.CNP Service: ? Author Type: Nurse Practitioner Type: Progress Notes Filed: 01/19/2024 16:47 Note Text: NAME: Teresa Lyle [facility] NO: [id number] REFERRING PHYSICIAN: Jena Cohen PRESENTING COMPLAINT: follow [...] daily. blood sugar diagnostic (ONE TOUCH TEST [facility]) (Patient not taking: Reported on 08/17/2022) Fluticasone [...] History Tobacco Use Sm (more content not included)...[facility]11-19-2024 History of Present illness Narrative* Noemi Lockett, ALLY.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 - 01/18/2024 11:43 AM EST NAME: Teresa Lyle CLINIC NO: [id number] REFERRING PHYSICIAN: Jena Cohen PRESENTING COMPLAINT: follow [...] daily. blood sugar diagnostic (ONE TOUCH TEST [facility]) (Patient not taking: Reported on 08/17/2022) Fluticasone [...] 18, 2024 11:43 AM documented in this encounterMer[facility]11-[facility] History of Present illness Narrative* Samantha [...] PATIENT PRESENTS WITH AN IMPLANTABLE OR ATTACHED COUNSELING SERVICES DIRECTOR: No RADIOLOGY DEPARTMENT: MR; Exam(s) Completed: Body: Pancreas/Biliary PERIPHERAL IV DATA: Site assessment: Clean,Dry and Intact, Site disposition Discontinued SIGNED BY: RT Ju(R) January 18, 2024 10:11 AM documented in this encounterMercer County Community Hospital11-19-2024 NoteHNO ID: [id number] Author: SAMANTHA EATON RN Service: Nursing Author [...] Lyle DATE: January 18, 2024 TIME: 9:13 [facility]11-19-2024 NoteHNO ID: [id number] Author: SUSANNA MURRY RT(R) Service: Radiology Author [...] PATIENT PRESENTS WITH AN IMPLANTABLE OR ATTACHED COUNSELING SERVICES DIRECTOR: No RADIOLOGY DEPARTMENT: MR; Exam(s) Completed: Body: Pancreas/Biliary PERIPHERAL IV DATA: Site assessment: Clean,Dry and Intact, Site disposition Discontinued SIGNED BY: Susanna Murry, RT(R) January 18, 2024 10:11 [facility]05-18-2024 Telephone encounter Note* Telephone Encounter - Jena Cohen MD - 07/17/2023 10:34 PM EDT I think this is in reference to the bone mineral density test - can you try and figure out why this fails diagnostic necessity ? Thanks [facility]05-18-2024 Miscellaneous Notes* Telephone Encounter - Jena Cohen MD - 07/17/2023 10:34 PM EDT I think this is in reference to the bone mineral density test - can you try and figure out why this fails diagnostic necessity ? Thanks * Telephone Encounter - Yoko Platt - 07/16/2023 3:59 PM EDT Diagnosis Fails Medical Necessity Fax from [facility] Scanned under external correspondence/Insurance Yoko Newellsolo Watershed Program Manager II documented in this encounterMercer County [facility] Hospital05-17-2024 Telephone encounter Note * Telephone Encounter - Yoko Platt - 07/16/2023 3:59 PM EDT Diagnosis Fails Medical Necessity Fax from [facility] Scanned under external correspondence/Insurance Yoko Newellsolo Watershed Program Manager II [facility]05-06-2024 Instructions* Patient Instructions* Jena Cohen MD [...] your usual activities immediately. 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 09/17/2017 -+/- HE -vol overload; on aldactone 100 (08/28/2019) + lasix 20 mg/d (started 08/07/2019) -portal Htn -ascites - s/p LVP x 1 @ [facility] [place] -itching - now resolved Since last [...] T2DM, GERD and HTN who presented to [facility] on 05/23 as a transfer from [facility] where she presented due to BRBPR where she underwent EGD 05/23 showing large EV (not banded due to significant scarring from prior EVLs) and severe PHG and paracentesis -6.2L c/b hypotension requiring increased midodrine dose and albumin. She was transferred to the [facility] MICU 05/23, where she was HDS on [...] 2 Puffs as instructed once daily. MV-Min-Vit B-Gusj-[id number]-Hb124 (AIR PROTECTOR) 1,000-50 mg tbef Take by [...] AM EDT NAME: Teresa Lyle CLINIC NO: [id number] REFERRING PHYSICIAN: Nimesh Chin PRESENTING COMPLAINT: PBC [...] T2DM, GERD and HTN who presented to [facility] on 05/23 as a transfer from [facility] where she presented due to BRBPR where she underwent EGD 05/23 showing large EV (not banded due to significant scarring from prior EVLs) and severe PHG and paracentesis -6.2L c/b hypotension requiring increased midodrine dose and albumin. She was transferred to the [facility] MICU 05/23, where she was HDS on [...] daily) Patient was skilled for home with [facility] and deemed stable for discharge on 05/31/2023 Since Last visit 06/11/23: Overall, feeling much improved since admission Taking Miralax TID, reports having 3 BM. Still on ursodiol 250mg BID Takes Lasix 40mg BID, 50mg daily, and Atorvastatin 10mg. Stopped Midodrine and Carvedilol. Scheudled for Liver Vascular US Today 07/05/23 Had total of 6.2L drained in para at [facility], 4.7L at [facility] (05/27/23). ETOH use: Denies Nutrition: predominantly eating [...] daily. blood sugar diagnostic (ONE TOUCH TEST [facility]) (Patient not taking: Reported on 08/17/2022) Fluticasone [...] back pain COPD (chronic obstructive pulmonary disease) ([facility]) Current every day smoker 1 PPD Diabetes [...] and esophageal varices. Patient was admitted to [facility] then transferred to [facility] on 05/23 - [...] sheis not interested in following up at [facility] EV: BRBPR. Continue Coreg. Will obtain records. If no recent EGD, may need EGD given rectal varices. Ascites: continue with current diuretics. <2,000mg Na diet. - History of 2x Paracentesis (05/23 [facility] 6.2L + 05/26 [facility]: 4.7 L) HE: Was previously on Lactulose, converted to Miralax TID with ~3 Bms daily, no corroboration on HE. documented in this encounterMercer County Community Hospital04-16-2024 Miscellaneous Notes* Telephone Encounter - Julia Banda RN - 06/15/2023 2:54 PM EDT Received message from Moon Roper CNP and speciality pharmacy that pt needs assistance withcompleting [employer] PAP application. Outgoing call placed to pt. Pt verified by name and . Pt states they did not complete their portion of the [employer] forms for Xifaxan. Pt's portion to be overnighted to her home address. Office portion completed and faxed to [employer]. Julia Banda RN June 15, 2023 3:22 PM documented in this encounterMercer County Community Hospital04-12-2024 Instructions* Patient Instructions* Moon Roper APRN.COURT - 06/11/2023 5:03 PM EDT Please continue ursodiol 500mg twice daily Please continue Miralax with goal of 3 bowel movements daily Please adhere to <2,000mg sodium diet Please be 6 hours fasting prior to your next ultrasound documented in this encounterMercer County Community Hospital04-12-2024 History of Present illness Narrative* Moon Roper APRN.CNP - 06/11/2023 4:00 PM EDT NAME: Teresa Lyle CLINIC NO: [id number] REFERRING PHYSICIAN: Sallie West PRESENTING COMPLAINT: hospital [...] T2DM, GERD and HTN who presented to [facility] on 05/23 as a transfer from [facility] where she presented due to BRBPR where she underwent EGD 05/23 showing large EV (not banded due to significant scarring from prior EVLs) and severe PHG and paracentesis -6.2L c/b hypotension requiring increased midodrine dose and albumin. She was transferred to the [facility] MICU 05/23, where she was HDS on [...] daily) Patient was skilled for home with [facility] and deemed stable for discharge on 05/31/2023 [...] tablet blood sugar diagnostic [facility] (Patient not taking: Reported on 08/17/2022) gabapentin [...] follow up for hospital discharge. [facility] TIPS completed on May 27 [...] daily - will attempt Rifaximin rx via [facility] HCC screening: - LVUS in 1 month for post TIPS surveillance, order in place HAV/HBV immunity: immune to HAV. Not immune to HBV. Received 1 Heplisav vaccine dose. Will assess for immunity to HBV. Follow up as scheduled. Please contact sooner if you have questions or problems develop. Moon Roper APRN.CNP June 11, 2023 12:44 PM documented in this encounterMercer County Community Hospital04-04-2024 NoteHNO ID: [id number] Author: AMAYA DOMÍNGUEZ RDMS Service: ? Author [...] PATIENT PRESENTS WITH AN IMPLANTABLE OR ATTACHED COUNSELING SERVICES DIRECTOR: No RADIOLOGY DEPARTMENT: Ultrasound PERIPHERAL IV DATA: Not applicable SIGNED BY: Amaya Domínguez RDMS June 03, 2023 3:07 [facility]04-04-2024 History of Present illness Narrative* Amaya Domínguez [...] PATIENT PRESENTS WITH AN IMPLANTABLE OR ATTACHED COUNSELING SERVICES DIRECTOR: No RADIOLOGY DEPARTMENT: Ultrasound PERIPHERAL IV DATA: Not applicable SIGNED BY: Amaya Domínguez RDMS June 03, 2023 3:07 PM documented in this encounterMercer County Community Hospital03-30-2024 History of Past illness Narrative* Problem Noted Date Diagnosed Date Resolved Date Moderate protein-calorie malnutrition 05/29/2023 05/31/2023 Hypophosphataemia 05/28/2023 05/31/2023 ABLA (acute blood loss anemia) 05/25/2023 05/31/2023 Hypoglycemia 05/25/2023 05/31/2023 Rectal varices 05/24/2023 05/31/2023 documented as of this encounter (statuses as of 06/04/2023) [facility]03-30-2024 History of Past illness Narrative* Problem Noted Date Diagnosed Date Resolved Date Moderate protein-calorie malnutrition 05/29/2023 05/31/2023 Hypophosphataemia 05/28/2023 05/31/2023 ABLA (acute blood loss anemia) 05/25/2023 05/31/2023 Hypoglycemia 05/25/2023 05/31/2023 Rectal varices 05/24/2023 05/31/2023 documented as of this encounter (statuses as of 06/16/2023) [facility]03-30-[facility] History of Past illness Narrative* Problem Noted Date Diagnosed Date Resolved Date Moderate protein-calorie malnutrition 05/29/2023 05/31/2023 Hypophosphataemia 05/28/2023 05/31/2023 ABLA (acute blood loss anemia) 05/25/2023 05/31/2023 Hypoglycemia 05/25/2023 05/31/2023 Rectal varices 05/24/2023 05/31/2023 documented as of this encounter (statuses as of 06/17/2023) [facility]03-28-2024 [id number] [facility]01-10-2024 Evaluation note* Encounter Date Diagnosis Assessment Notes Treatment Notes Treatment Clinical Notes Mar, Hypotension, unspecified hypotension type (ICD-10 - I95.9) [employer] Other 12-14-2023 Evaluation note* Encounter Date Diagnosis Assessment Notes Treatment Notes Treatment Clinical Notes Jan, Hyperlipidemia LDL goal <100 (ICD-10 - E78.5) [employer] Other 09-13-2023 Evaluation note* Encounter Date Diagnosis [...] given today; order for dexcom g7 cgm senior architect/sensors to dme. 7. Prescriptions will not be filled unless you are compliant with follow up appointments or have a follow up appointment scheduled as ordered by your provider. Refills should be requested at the time of your visit. 8. Pt would greatly benefit from correction personal use of CGM device with ability [...] 2022 BMI 24.0-24.9, adult (ICD-10 - Z68.24) [employer] Other [id number] Procedure [facility]08-15-2023 Miscellaneous Notes* Telephone Encounter - Julia Banda [...] AM EDT ----- Message from Moon Roper APRN.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 sent at 10/13/2022 7:24 AM EDT ----- [...] Thanks in advance, Moon documented in this encounterMercer County Community Hospital08-10-2023 Evaluation note* Encounter Date Diagnosis Assessment Notes Treatment Notes Treatment Clinical Notes Sep, Primary biliary cirrhosis (ICD-10 - K74.3) Patient reports that she has a small amount of intermittent rectal bleeding Paitent is to increase corig to BID Paitent is due for blood work today Patient is to have a fibroscan to be scheduled today [employer] Other 07-10-2023 Miscellaneous Notes* Telephone Encounter - [...] PM EDT ----- Message from Moon Roper APRN.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 sent at 08/27/2022 8:32 AM EDT ----- Regarding: Outside Records Hi Julia, This patient came for possible TIPS. I can see a referral was placed, but I cannot see any recent records from her local GI (Dr. Nimesh Chin - [place], [place]). Is there any way we can obtain her flex sig report and recent records? (Last imaging, last EGD). Please let me know if any other information is needed, and please let me know when that informationis obtained. Thanks in advance, Moon documented in this encounterMercer County Community Hospital06-19-2023 History of Present illness Narrative* Moon Roper APRN.COURT - 08/17/2022 12:54 PM EDT NAME: Teresa Lyle [facility] NO: [id number] REFERRING PHYSICIAN: Nimesh Chin PRESENTING COMPLAINT: PBC [...] relatively low MELD (based on bloodwork from [place] from , MELD Na = 7)-likely too [...] mg daily States she follows with nephrology [id number] locally 07/14 d/t to water pills . [...] daily. blood sugar diagnostic (ONE TOUCH TEST [facility]) amitriptyline (ELAVIL) 10 mg tablet Take 10 mg by mouth daily at bedtime. metFORMIN (GLUCOPHAGE) 500 mg tablet Take 500 mg by mouth daily with breakfast. insulin lispro (HUMALOG PEN SUBCUTANEOUS) Inject subcutaneously. Fluticasone Propionate 50 mcg/actuation diskus inhaler Inhale 1 Puff as instructed twice daily. tiotropium bromide (SPIRIVA RESPIMAT) 1.25 mcg/actuation mist Inhale 2 Puffs as instructed once daily. MV-Min-Vit U-Wivh-Kgvisa-Hb124 (AIR PROTECTOR) 1,000-50 mg tbef Take by [...] found in the last year. Assessment IMPRESSION Treesa Lyle is a 62 year old female [...] Dr. Nimesh Chin who has referred herto [facility] for possible TIPS procedure d/t rectal hemorrhage [...] sheis not interested in following up at [facility] EV: BRBPR. Continue Coreg. Will obtain records. [...] 17, 2022 12:57 PM documented in this encounterMercer County Community Hospital06-05-2023 Evaluation note* Encounter Date Diagnosis Assessment [...] BMI 26.0-26.9,adult (ICD-10 - Z68.26) see above [employer] Other 05-04-2023 Evaluation note* Encounter Date Diagnosis Assessment Notes Treatment Notes Treatment Clinical Notes June, Primary biliary cirrhosis (ICD-10 - K74.3) [employer] [facility] Other 05-03-2023 [facility]* Encounter Date Diagnosis Assessment Notes Treatment Notes Treatment Clinical Notes Apr, Primary biliary cirrhosis (ICD-10 - K74.3) [employer] Other 02-20-2023 Evaluation note* Encounter Date Diagnosis [...] or diabetes medication issues. 6. Prescriptions: Gets [employer] for tresiba/fiasp. Refill request for Atorvastatin sent to [facility] in [place] 04/20/22 7. Prescriptions will not be filled [...] above Apr, BMI 25.0-25.9,adult (ICD-10 - Z68.25) [employer] [facility] Other 01-18-2023 Evaluation note* Encounter Date Diagnosis Assessment Notes Treatment Notes Treatment Clinical Notes Mar, Hemorrhoids (ICD-10 - K64.9) Flex sig +/- HET Mar, Rectal bleeding (ICD-10 - K62.5) Mar, Primary biliary cirrhosis (ICD-10 - K74.3) Labs as indicated above [employer] Other 01-10-2023 Evaluation note* Encounter Date Diagnosis [...] increase midodrine to 5 mg PO TID [employer] [facility] Other 11-07-2022 Evaluation note* Encounter Date Diagnosis [...] Z91.19) Dec, BMI 26.0-26.9,adult (ICD-10 - Z68.26) [employer] Other 08-16-2022 Evaluation note* Encounter Date Diagnosis Assessment Notes Treatment Notes Treatment Clinical Notes Sep, Localized edema (ICD-10 - R60.0) [facility] [facility] Other 08-15-2022 Evaluation note* Encounter Date Diagnosis Assessment Notes Treatment Notes Treatment Clinical Notes Sep, Localized edema (ICD-10 - R60.0) [employer] Other 07-26-2022 Evaluation note* Encounter Date Diagnosis [...] Non-adherence to medical treatment (ICD-10 - Z91.19) [employer] Other 06-14-2022 Evaluation note* Encounter Date Diagnosis Assessment Notes Treatment Notes Treatment Clinical Notes Jul, Primary biliary cirrhosis (ICD-10 - K74.3) CONTINUE URSODIOL 300 MG QID CONTINUE OCALIVA 5 MG DAILY Jul, Secondary esophageal varices without bleeding (ICD-10 - I85.10) [employer] Other 05-10-2022 Evaluation note* Encounter Date Diagnosis [...] start midodrine 2.5 mg 3 times daily. [employer] Other 03-09-2022 Evaluation note* Encounter Date Diagnosis Assessment Notes Treatment Notes Treatment Clinical Notes Apr, Primary biliary cirrhosis (ICD-10 - K74.3) Apr, Secondary esophageal varices without bleeding (ICD-10 - I85.10) [employer] Other 03-07-2022 Evaluation note* Encounter Date Diagnosis Assessment Notes Treatment Notes Treatment Clinical Notes Apr, Primary biliary cirrhosis (ICD-10 - K74.3) [employer] Other 02-09-2022 Evaluation note* Encounter Date Diagnosis Assessment Notes Treatment Notes Treatment Clinical Notes Apr, Primary biliary cirrhosis (ICD-10 - K74.3) [employer] Other 02-08-2022 Evaluation note* Encounter Date Diagnosis [...] BEING REMOVED CONTINUE ALL MEDICATIONS WITHOUT CHANGE [employer] [facility] Other 01-18-2022 Evaluation note* Encounter Date Diagnosis Assessment Notes Treatment Notes Treatment Clinical Notes Mar, Primary biliary cirrhosis (ICD-10 - K74.3) [employer] Other 12-14-2021 Evaluation note* Encounter Date Diagnosis Assessment Notes Treatment Notes Treatment Clinical Notes Jan, Type 1 diabetes mellitus (ICD-10 - E10.9) Learning About Low Blood Sugar (Hypoglycemia) in Diabetes material was printed 1. Uncontrolled, Type 1 diabetes with A1C of 8.8%. 2. Blood glucose above target with a great deal of variability. According to [employer]pert cgm download 01/29/2021- 1: Avg glucose 213. [...] progressive beta cell , concepts of basal/bolus/correct sadny insulin requirements. Basal: The goal is fasting [...] BMI 26.0-26.9,adult (ICD-10 - Z68.26) see above [employer] Other 08-21-2021 NoteMR#: [id number] I [facility] Pt. Name: Teresa Lyle Admitted: 10/15/2020 Discharged: [...] hernia. She was directed to come to [facility] for further evaluation. In the emergency department, [...] be discharged home with followup with [facility]. The patient was instructed that after ascites improved, she could follow up with the surgical team to discuss hernia repair. The patient stated that she already had followup appointment scheduled with sagger maker at [facility]. All discharge instructions were explained to [...] Patterson CNP Date Trans: 10/19/2020 05:55 A/zee [id number] cc: Rain Hebert M.D. [address] [place], [place] [address]Discharge summary Author Sylvia Centeno [facility] Note Date/Time July 08, 2024 4:13p [facility] ENTER [address] [place] [address] Discharge Summary Signed Patient: Teresa Lyle MR#: [id number] : 1960 Acct:[id number] Age/Sex: 64 / F Adm Date: 5 Loc: 4N Room: 2U1377-[address]: Forest Quiroz MD Copies to: Chapis Lewis [facility] ALLY Haddad MD~ Providers Date of Admission: 06/30/24 Date of Discharge: 07/08/24 Discharging Provider: Forest Quiroz Additional Discharging Provider: Forest Quiroz Primary Care Provider: Chapis Lewis Consults: 06/30/24 22:00 Consult to Orthopedic Surgery Routine Comment: Consulting Provider: [facility] Reason For Exam: right hip [...] rehab unit and [facility], noting [...] DO Discharge Plan Discharge Plan Patient Disposition: Correction Facility Activity: Ambulate as Tolerated Comment: See [...] please callDr. Robbins's office. Dr. Roger Robbins [facility] [address] [place] [address] Instructions: Hope Pamphlet Prescriptions: New sennosides [Senna [...] signed by Forest Quiroz MD> 07/09/24 1525 [facility] Work Phone: Evaluation + Plan note Future Appointments Appointment Date:09/20/2024 01:30:00 PM Scheduled Provider:Berta Abreu PA-C Location:[place] Appointment Type:URO New Patient Appointment Date:10/11/2024 02:20:00 PM Scheduled Provider:Chapis Dumont Location:[facility] Appointment Type:FM Open Appointment Date:10/11/2024 02:30:00 PM Scheduled Provider: Location:[facility] Appointment Type: Medicare Wellness Subsequent [facility] evaluation noteNo InformationNort [employer] Other Evaluation noteNo assessment information available [facility] Work Phone: evaluefpnp note* Diagnosis 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 documented in this encounter [facility]* Diagnosis Rectal varices- Primary Unspecified hemorrhoids without mention of complication Primary biliary cirrhosis (HCC) Biliary cirrhosis documented in this encounter [facility] [place] [facility]* Diagnosis Onset Date Resolution Status Dietary counseling and surveillance acute Hyperlipidemia acute Type 1 diabetes mellitus with hyperglycemia acute [facility] Work Phone: evaluation note* Diagnosis Onset Date Resolution Status Dietary counseling and surveillance acute Hyperlipidemia acute Type 1 diabetes mellitus with hyperglycemia acute Anemia acute BRBPR (bright red blood per rectum) acute GI bleed acute [facility] Work Phone: Evaluation note* Diagnosis S/P TIPS (transjugular intrahepatic portosystemic shunt) Other postprocedural status documented in this encounter [facility] [place] [facility]* Diagnosis Onset Date Resolution Status Dietary [...] Localized edema acute Vitamin D deficiency acute [facility] Work Phone: Evaluation note* Diagnosis 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 Esophageal varices without bleeding, unspecified esophageal varices type (HCC) Malnutrition of moderate degree (HCC) Malnutrition of moderate degree documented in this encounter [facility] [place] [facility]* Diagnosis S/P TIPS (transjugular intrahepatic portosystemic shunt) Other postprocedural status documented in this encounter [facility] [place] [facility]* Diagnosis Encounter for screening for osteoporosis- Primary Special screening for osteoporosis 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) Esophageal varices without bleeding, unspecified esophageal varices type (HCC) Malnutrition of moderate degree (HCC) Malnutrition of moderate degree documented in this encounter [facility] [place] [facility]* Diagnosis 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 documented in this encounter [facility] [place] [facility]* Diagnosis Onset Date Resolution Status Anemia acute Diabetes acute Esophageal varices determined by endoscopy acute GI bleed acute Portal hypertensive gastropathy acute Primary biliary cholangitis acute Rectal varices acute Chronic hypotension acute Cirrhosis of liver with ascites acute Hypomagnesemia acute Hyponatremia acute Hypophosphatemia acute Localized edema acute Vitamin D deficiency acute [facility] Work Phone: Evaluation note* Diagnosis Onset [...] Type 1 diabetes mellitus with hyperglycemia acute [facility] Work Phone: Evaluation note* Diagnosis Onset Date Resolution Status Chronic hypotension acute Cirrhosis of liver with ascites acute Hypomagnesemia acute Hyponatremia acute Hypophosphatemia acute Localized edema acute Vitamin D deficiency acute [facility] Work Phone: Evaluation note* Diagnosis 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) [facility] 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 Vitamin D deficiency Unspecified vitamin D deficiency documented in this encounter [facility] Author Nimesh Chin [facility] July 01, 2022 9:56am Note Date/Time July 01, 2022 9:56am [facility] [address] [place] [address] Gastroenterology H&P Signed Patient: Teresa Lyle MR#: [id number] : 1960 Acct:[id number] Age/Sex: 62 / F Adm Date: 3 Loc: Room: Type: [facility] Attending Dr: Nimesh Chin MD [...] signed by Nimesh Chin MD> 07/01/22 0956 [facility] Work Phone: Hisvatg general Narrative - Reported* Type Description Date [...] History [facility]mbilical hernia[facility] [place] 09[facility]2020 [employer] Other Hissowl general Narrative - Reported* Type Description Date [...] [facility] [place] 09/2020 Hospitalization History [facility] -Hernia repair 03/31/2021 [employer] Other Hisejib general Narrative - Reported* Type Description Date [...] [facility] [place] 09/2020 Hospitalization History [facility] -Hernia repair 03/31/2021 [employer] Other Hisdoej general Narrative - Reported* Type Description Date [...] [facility] [place] 09/2020 Hospitalization History [facility] -Hernia repair 03/31/2021 [employer] Other Hospital course Narrative No data available for this section [facility] Discharge instructions Additional Instructions DISCHARGE INSTRUCTIONS [...] NOT operate machinery such as power tools, Micro Interventional Devicesn mowers, snow blowers, sewing machines, etc. for [...] Chin's office will give you referral to [facility] pathology for consideration of the special procedure for your rectal bleeding -Notify the doctor if you have any problems. -Follow up with PCP. -Office number [phone].[facility] Work Phone: Hospital Discharge instructions Additional [...] problems. -Follow up with PCP. -Office number [phone].[facility] Work Phone: Hospital Discharge instructions No data available for this section [facility] Discharge instructions Additional Instructions If your symptoms return/worsen or you develop any further concerns or symptoms please see your doctor or return to the emergency department immediately. It is imperative that you go over today's visit and all results with your primary care provider.[facility] Work Phone: Progress note No data available for this section [facility] Reason for referral (narrative)* Reason Referral to [facility] live [facility] clinic for TIPS evaluation due to rectal varices. Please send flex sig report. Diagnosis 1 Primary biliary cirr hosis (K74.3) Referral Organization [facility] Referring Provider First Name Nimesh Referring Provider Last Name Elsy Referring Provider Specialty Gastroenter ology Referred [facility] Ref[facility] Address [address] [place] [place] Referred Provider Specialty Hepatology Referral Priority Routine [employer] Other Reason for referral (narrative)* Diagnostic Procedure Only (Routine) - Closed Specialty Diagnoses / Procedures Referred By Contac t Referred To Contact US IMAGING Diagnoses S/P TIPS (transjugular intrahepatic portosystemic shunt) Procedures US DOPPLER COMPLETE DUP-SCAN ARTL AISHA ABDL/PEL/SCROT&/RPR ORGN COM Sallie West PA-C [address] [place] [address] Us Imaging [place] [address] Referral ID Status Reason Start Date Expiration Date V isits Requested Visits Authorized [id number] Closed Auto-Generate d Referral 06/29/2023 06/28/2024 1 1 * Diagnostic Procedure Only (Routine) - Closed Specialty Diagnoses / Procedures Referred By Contac t Referred To Contact US IMAGING Diagnoses S/P TIPS (transjugular intrahepatic portosystemic shunt) Procedures US ABD LIVER VASCULAR US ABDOMINAL REAL TIME W/IMAGE LIMITED DUP-SCAN ARTL AISHA ABDL/PEL/SCROT&/RPR ORGN COM Sallie West PA-C [address] [place] [address] Us Imaging [id number] Referral ID Status Reason Start Date Expiration Date V isits Requested Visits Authorized [id number] Closed Auto-Generate d Referral 06/29/2023 06/28/2024 1 1 [facility] Diagnostic Procedure Only (Routine) - Pending Review Specialty Diagnoses / Procedures Referred By Contac t Referred To Contact US IMAGING Diagnoses Encounter for screening for osteoporosis Procedures US DOPPLER COMPLETE DUP-SCAN ARTL AISHA ABDL/PEL/SCROT&/RPR ORGN COM Jena Cohen MD [address] [facility] [facility] [place] [id number] [place] [address] Referral ID Status Reason Start Date Expiration Date Visits Requested Visits Authorized [id number] Pending Review Auto-Generat ed Referral 07/05/2023 08/03/2024 1 1 * Diagnostic Procedure Only (Routine) - Authorized Specialty Diagnoses / Procedures Referred By Contac t Referred To Contact US IMAGING Diagnoses Encounter for screening for osteoporosis Procedures US ABD LIVER VASCULAR US ABDOMINAL REAL TIME W/IMAGE LIMITED DUP-SCAN ARTL AISHA ABDL/PEL/SCROT&/RPR ORGN COM Jena Cohen MD [address] [place] [address] Us [facility] [place] [address] Referral ID Status Reason Start Date Expiration Date Visits Requested Visits Authorized [id number] Authorized Auto-Generat ed Referral 01/05/2024 08/03/2024 1 1 * Diagnostic Procedure Only (Routine) - Pending Review Specialty Diagnoses / Procedures Referred By Contac t Referred To Contact XR IMAGING Diagnoses Encounter for screening for osteoporosis Procedures DXA-AXIAL SKELETON Jena Cohen MD [address] [place] [address] Xr Imaging [id number] Referral ID Status Reason Start Date Expiration Date Visits Requested Visits Authorized [id number] Pending Review Auto-Generat ed Referral 07/05/2023 08/03/2024 1 1 [facility] for visit Narrative* Diagnostic Procedure Only (Routine) - Closed Specialty Diagnoses / Procedures Referred By Contac t Referred To Contact US IMAGING Diagnoses S/P TIPS (transjugular intrahepatic portosystemic shunt) Procedures US ABD LIVER VASCULAR US ABDOMINAL REAL TIME W/IMAGE LIMITED DUP-SCAN ARTL AISHA ABDL/PEL/SCROT&/RPR ORGN COM Sallie West PA-C [address] [place] [id number] Us Imaging [place] [address] Referral ID Status Reason Start Date Expiration Date V isits Requested Visits Authorized [id number] Closed Auto-Generate d Referral 05/28/2023 06/26/2024 1 1 [facility] for visit Narrative* Diagnostic Procedure Only (Routine) - Closed Specialty Diagnoses / Procedures Referred By Rl t Referred To Contact US IMAGING Diagnoses S/P TIPS (transjugular intrahepatic portosystemic shunt) Procedures US DOPPLER COMPLETE DUP-SCAN ARTL AISHA ABDL/PEL/SCROT&/RPR ORGN COM Sallie West PA-C [address] [place] [address] Us Imaging [place] [address] Referral ID Status Reason Start Date Expiration Date V isits Requested Visits Authorized [id number] Closed Auto-Generate d Referral 06/29/2023 06/28/2024 1 1 [facility] Summary Purpose Family History Relationship Condition [...] STATION Jena Cohen MD [address] [place] [id number] Mr Imaging [id number] Referral ID Status Reason Start Date Expiration Date Visits Requested Visits Authorized [id number] Pending Review Auto-Generat ed Referral 07/20/2023 08/18/2024 1 1 Specialty Diagnoses / Procedures Referred By Contac t Referred To Contact MR IMAGING Diagnoses 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) Procedures MRI PANC/TRISTAN WO/W IVCON MRI ABDOMEN W/O & W/CONTRAST MATERIAL Jena Cohen MD [address] [place] [address] Mr Imaging [id number] Referral ID Status Reason Start Date Expiration Date Visits Requested Visits Authorized [id number] Pending Review Auto-Generat ed Referral 07/20/2023 08/18/2024 1 1 Specialty Diagnoses / Procedures Referred By Contac t Referred To Contact Diagnoses Rectal varices Primary biliary cirrhosis (HCC) Procedures CONSULT TO TIPS CLINIC OFFICE/OUTPATIENT [facility] 60-74 MINUTES Moon Roper APRN.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 [address] [place] [id number] Referral ID Status Reason Start Date Expiration Date Visits Requested Visits Authorized [id number] Authorized PCP Requested Referral 10/13/2022 10/13/2023 1 1 Additional Source Comments INFORMATION SOURCE (unrecogn ized section and content) DATE CREATED AUTHOR 01/19/2021 [facility] DATE CREATED AUTHOR AUTHOR'S ORGANIZ ATION 05/14/2021 [facility] DATE CREATED AUTHOR AUTHOR'S ORGANIZ ATION 06/06/2023 [facility] DATE CREATED AUTHOR AUTHOR'S ORGANIZ ATION 04/20/2024 [facility] DATE CREATED AUTHOR AUTHOR'S ORGANIZ ATION 04/21/2024 [facility] DATE CREATED AUTHOR AUTHOR'S ORGANIZ ATION 08/13/2024 [facility] DATE CREATED AUTHOR AUTHOR'S ORGANIZ ATION 09/10/2024 [facility] DATE CREATED AUTHOR AUTHOR'S ORGANIZ ATION 09/11/2024 Manolo Amezcua [facility] REASON FOR VISIT (unrecogniz ed section and content) Reason Comments New Patient Primary biliary cirr hosis Reason Comments Request Outside Medical Records Reason Comments Consult TIPS Reason 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 Reason Onset Date Comments Community Outreach 06/28/2024 Screening Nasim mogram Referral/ Open [employer]ar[employer] Supervisor Care Teams (unrecognized sec tion and content) Personnel Name: Chapis Dumont Address: [address] [place] [address]- Telecom: Team Status: Active Member Role Status [...] perry 2024 End: July 08, 2024 Jillian Mohna APRN Other Provider Active St art: June [...] Active Member Role Status Dates Chapis Lewis ASSOCIATE PROFESSOR OF COMMUNICATION-C Primary Care Provider Active Start: July 01, [...] Active Member Role Status Dates Chapis Lewis ASSOCIATE PROFESSOR OF COMMUNICATION-C Primary Care Provider Active Start: July 03, [...] Rain Hebert MD Primary Care Provider Active Criminal Lawyer Relationship Specialty Start Date End Date Rain Hebert MD [address] [place] [address] [phone] (work) PCP - General Family Medicine 09/25/19 Al Gómez [address] [place] [address] Gastroenterology 09/22/19 Nimesh Chin [address] [place] [address] Referring Gastroenterology 07/06/22 Criminal Lawyer Relationship Specialty Start Date End Date Rain Hebert MD [address] [place] [address] PCP - General Family Medicine 09/25/19 Al Gómez [address] [place] [address] Gastroenterology 09/22/19 Nimesh Chin [address] [place] [address] Referring Gastroenterology 07/06/22 Team Status: Inactive Member Role Status Dates PHYSICIAN NO FAMILY Primary Care Provider Active Nimesh Chin MD Attending Provider Active Criminal Lawyer Relationship Specialty Start Date End Date Rain Hebert MD [address] [place] [address] PCP - General Family Medicine 09/25/19 Al Gómez [address] [place] [address] Gastroenterology 09/22/19 Nimesh Chin [address] [place] [address] Referring Gastroenterology 07/06/22 Team Status: Inactive Member Role Status Dates Nimesh Chin MD Attending Provider Active S tart: February 02, 2023 End: February 02, 2023 Chapis Lewis NP-C Primary Care Provider Active Start: February 02, 2023 End: February 02, 2023 Mickey Lovett MD Other Provider Active Start: Janell 2022 End: February 02, 2023 Team Status: Inactive Member Role Status Dates Mickey Lovett MD Attending Provider Active Star t: February 09, 2023 End: February 09, 2023 Team Status: Inactive Member Role Status Dates Chapis Lewis ASSOCIATE PROFESSOR OF COMMUNICATION-C Primary Care Provider Active Start: April 13, 2023 End: April 13, 2023 Ajay Elam APRN Attending Provider Active Start: April 13, 2023 End: April 13, 2023 Mickey Lovett MD Other Provider Active Start: [facility] 2023 End: April 13, 2023 Team Status: Inactive Member Role Status Dates Chapis Lewis ASSOCIATE PROFESSOR OF COMMUNICATION-C Primary Care Provider Active Start: April 20, 2023 End: April 20, 2023 Ajay Elam APRN Attending Provider Active Start: April 20, 2023 End: April 20, 2023 Team Status: Active Member Role Status Dates Chapis Lewis ASSOCIATE PROFESSOR OF COMMUNICATION-C Primary Care Provider Active Start: May 24, 2023 Harsha Wren DO Emergency Provider Active Start: May 24, 2023 Danielle Glass MD Admit Provider, Atte nding Provider Active Start: May 24, 2023 Criminal Lawyer Relationship Specialty Start Date End Date Rain Hebert MD [address] [facility] [address] PCP - General Family Medicine 09/25/19 Al Gómez [address] [place] [address] Gastroenterology 09/22/19 Nimesh Chin MD [address] [place] [address] [place] [address] Referring Gastroenterology 07/06/22 Team Status: Inactive Member [...] Active Member Role Status Dates Chapis Lewis ASSOCIATE PROFESSOR OF COMMUNICATION-C Primary Care Provider Active Start: May 24, 2023 End: May 24, 2023 Harsha Wren DO Emergency Provider Active Start: May 24, 2023 End: May 24, 2023 Danielle Glass MD Admit Provider, Atte nding Provider, Other [...] June 15, 2023 End: June 15, 2023 Criminal Lawyer Relationship Specialty Start Date End Date Rain Hebert MD [address] [place] [address] PCP - General Family Medicine 09/25/19 [place] [address] Gastroenterology 09/22/19 [place] [address] Referring Gastroenterology 07/06/22 Criminal Lawyer Relationship Specialty Start Date End Date Rain Hebert MD [address] [place] [address] PCP - General Family Medicine 09/25/19 [place] [address] Gastroenterology 09/22/19 Nimesh Chin MD [address] [place] [address] Referring Gastroenterology 07/06/22 Criminal Lawyer Relationship Specialty Start Date End Date Rain Hebert MD [address] [place] [address] PCP - General Family Medicine 09/25/19 Al G[address]mez [address] [place] [address] Gastroenterology 09/22/19 Nimesh Chin MD [address] [place] [address] Referring Gastroenterology 07/06/22 Criminal Lawyer Relationship Specialty Start Date End Date Rain Hebert MD [address] [place] [address] PCP - General Family Medicine 09/25/19 Al G[address] [facility] [place] [address] Gastroenterology 09/22/19 Nimesh Chin MD [address] [facility] [place] [address] Referring Gastroenterology 07/06/22 Team Status: Inactive Member [...] July 21, 2023 End: July 21, 2023 Criminal Lawyer Relationship Specialty Start Date End Date Rain Hebert MD [address] [place] [address] PCP - General Family Medicine 09/25/19 Al Gómez [address] [facility] [place] [address] Gastroenterology 09/22/19 Nimesh Chin MD [address] [facility] [place] [address] Referring Gastroenterology 07/06/22 Team Status: Inactive Member [...] November 30, 2023 End: November 30, 2023 Criminal Lawyer Relationship Specialty Start Date End Date Rain Hebert MD [address] [facility] [place] [address] PCP - General Family Medicine 09/25/19 Al Gómez [address] [facility] [address] [place] [address] Gastroenterology 09/22/19 Nimesh Chin MD [address] [place] [address] Referring Gastroenterology 07/06/22 Criminal Lawyer Relationship Specialty Start Date End Date Rain Hebert MD [address] [facility] [place] [address] PCP - General Family Medicine 09/25/19 Al Gómez [address] [place] [address] Gastroenterology 09/22/19 Nimesh Chin MD [address] [address] Referring Gastroenterology 07/06/22 Criminal Lawyer Relationship Specialty Start Date End Date Rain Hebert MD [address] [facility] [place] [address] PCP - General Family Medicine 09/25/19 Al Gómez MD [address] [place] [address] Gastroenterology 09/22/19 Nimesh Chin MD [address] [place] [address] Referring Gastroenterology 07/06/22 Team Status: Inactive Member Role Status Dates Chapis Lewis ASSOCIATE PROFESSOR OF COMMUNICATION-C Primary Care Provider Active Start: July 10, 2024 End: July 10, 2024 Darion Goss DO Emergency Provider Active Start: July 10, 2024 End: July 10, 2024 Team Status: Inactive Member Role Status Dates Chapis Lewis ASSOCIATE PROFESSOR OF COMMUNICATION-C Primary Care Provider Active Start: July 14, 2024 End: July 14, 2024 Jordan Thomson DO Attending Provider Active Start: July 14, 2024 End: July 14, 2024 Team Status: Active Member Role Status Dates Roger Robbins DO Attending Provider Active S tart: July 26, 2024 Chapis Lewis ASSOCIATE PROFESSOR OF COMMUNICATION-C Primary Care Provider Active Start: July 26, [...] July 26, 2024 Chapis Sylvia Joshua , ASSOCIATE PROFESSOR OF COMMUNICATION-C Primary Care Provider Active Start: July 26, 2024 End: July 26, 2024 Team Status: Active Member Role Status Dates Chapis Lewis ASSOCIATE PROFESSOR OF COMMUNICATION-C Primary Care Provider Active Start: July 01, [...] Provider Active S tart: July 01, 2024 Rogre Robbins , DO Other Provider Active Start : July 01, 2024 Jena Long II, MD Other Provider Active S tart: July 01, 2024 Solo Waite , DO Other Provider Active Start: July 01, 2024 Team Status: Active Member Role Status Dates Chapis Lewis ASSOCIATE PROFESSOR OF COMMUNICATION-C Primary Care Provider Active Start: July 03, 2024 Harsha Wren , Emergency Provider Active Start: July 03, 2024 Sarah Helm MD Admit Provider Active Sta rt: July 03, 2024 Digna Roberto MD Other Provider Active Start: M ay 2024 George Arciniega MD Other Provider Active Start: M ay 2024 Tmaanna Barajas MD Other Provider Active Star t: [...] 2024 End: August 21, 2024 Chapis Lewis ASSOCIATE PROFESSOR OF COMMUNICATION-C Primary Care Provider Active Start: August 19, 2024 End: August 21, 2024 Team Status: Active Member Role Status Dates Roger Robbins DO Attending Provider Active S tart: August 23, 2024 Chapis Lewis , ASSOCIATE PROFESSOR OF COMMUNICATION-C Primary Care Provider Active Start: August 23, 2024 Team Status: Inactive Member Role Status Dates Chapis Lewis ASSOCIATE PROFESSOR OF COMMUNICATION-C Primary Care Provider Active Start: August 23, 2024 End: August 23, 2024 Roger Robbins DO Attending Provider Active S tart: August 23, 2024 End: August 23, 2024 Team Status: Inactive Member Role Status Dates Roger Robbins DO Attending Provider Active S tart: August 23, 2024 End: August 23, 2024 Chapis Lewis , ASSOCIATE PROFESSOR OF COMMUNICATION-C Primary Care Provider Active Start: August 23, [...] or prosecute any alcohol or drug abuse patient.[facility] the event this information is protected by the Federal Confidentiality of Alcohol and Drug Abuse Patient Records regulations: The Federal rules restrict any use of the information to criminally investigate or prosecute any alcohol or drug abuse patient.[facility]In the event this information is protected by the Federal Confidentiality of Alcohol and Drug Abuse Patient Records regulations: The Federal rules restrict any use of the information to criminally investigate or prosecute any alcohol or drug abuse patient.[facility] the event this information is protected by the Federal Confidentiality of Alcohol and Drug Abuse Patient Records regulations: The Federal rules restrict any use of the information to criminally investigate or prosecute any alcohol or drug abuse patient.[facility] the event this information is protected by the Federal Confidentiality of Alcohol and Drug Abuse Patient Records regulations: The Federal rules restrict any use of the information to criminally investigate or prosecute any alcohol or drug abuse patient.[facility] Hospital[facility] the event this information is protected by the Federal Confidentiality of Alcohol and Drug Abuse Patient Records regulations: The Federal rules restrict any use of the information to criminally investigate or prosecute any alcohol or drug abuse patient.[facility] the event this information is protected by the Federal Confidentiality of Alcohol and Drug Abuse Patient Records regulations: The Federal rules restrict any use of the information to criminally investigate or prosecute any alcohol or drug abuse patient.[facility] the event this information is protected by the Federal Confidentiality of Alcohol and Drug Abuse Patient Records regulations: The Federal rules restrict any use of the information to criminally investigate or prosecute any alcohol or drug abuse patient.[facility] Hospital[facility] the event this information is protected by the Federal Confidentiality of Alcohol and Drug Abuse Patient Records regulations: The Federal rules restrict any use of the information to criminally investigate or prosecute any alcohol or drug abuse patient.[facility] HospitalIn the event this information is protected by the Federal Confidentiality of Alcohol and Drug Abuse Patient Records regulations: The Federal rules restrict any use of the information to criminally investigate or prosecute any alcohol or drug abuse patient.[facility] HospitalIn the event this information is protected by the Federal Confidentiality of Alcohol and Drug Abuse Patient Records regulations: The Federal rules restrict any use of the information to criminally investigate or prosecute any alcohol or drug abuse patient.[facility] the event this information is protected by the Federal Confidentiality of Alcohol and Drug Abuse Patient Records regulations: The Federal rules restrict any use of the information to criminally investigate or prosecute any alcohol or drug abuse patient.[facility] HospitalIn the event this information is protected by the Federal Confidentiality of Alcohol and Drug Abuse Patient Records regulations: The Federal rules restrict any use of the information to criminally investigate or prosecute any alcohol or drug abuse patient.[facility] HospitalIn the event this information is protected by the Federal Confidentiality of Alcohol and Drug Abuse Patient Records regulations: The Federal rules restrict any use of the information to criminally investigate or prosecute any alcohol or drug abuse patient.[facility] HospitalIn the event this information is protected by the Federal Confidentiality of Alcohol and Drug Abuse Patient Records regulations: The Federal rules restrict any use of the information to criminally investigate or prosecute any alcohol or drug abuse patient.[facility] HospitalIn the event this information is protected by the Federal Confidentiality of Alcohol and Drug Abuse Patient Records regulations: The Federal rules restrict any use of the information to criminally investigate or prosecute any alcohol or drug abuse patient.[facility] FOR RECORDS PERTAINING TO PATIENTS WHO [...] BE BASED ON THE PRIMARY CLINICAL RECORDS. [employer] [facility]. provides no warranty or guarantee of the accuracy or completeness of information in this document.
[2024-09-15] MEDS: LACTULOSE 10 GM/15 ML BOTTLE 237 ML 30 GM PO ×4 (03:01→22:29)
[2024-09-15 03:11] LABS: Lactate/Lactic Acid 1.5 mmol/L (0.4-2.0)
[2024-09-15 05:53] LABS: Hematocrit 45.1 % (36.0-48.0); Hemoglobin 15.1 g/dL (12.0-16.0); Immature Granulocytes Abs Auto 0.01 10^3/uL (0.00-0.03); Immature Granulocytes Pct Auto 0.2 % (0.0-0.5); Lymphocytes Absolute Auto 1.2 10^3/uL (1.2-3.8); Mean Corpuscular HGB Conc 33.5 g/dL (29.9-35.2); Mean Corpuscular Hemoglobin 29.7 pg (26.7-34.0); Mean Corpuscular Volume 88.6 fL (81.0-99.0); Platelet Count 87 10^3/uL (150-450); Red Blood Count 5.09 10^6/uL (4.20-5.40); White Blood Count 5.8 10^3/uL (4.0-11.0)
[2024-09-15 05:56] LABS: INR 1.19; Prothrombin Time 12.4 sec (9.0-11.6)
[2024-09-15 06:04] LABS: Lactate/Lactic Acid 1.4 mmol/L (0.4-2.0)
[2024-09-15 06:11] LABS: Alanine Aminotransferase 35 U/L (14-59); Albumin Globulin Ratio 0.4; Albumin Level 1.9 g/dL (3.4-5.0); Alkaline Phosphatase 320 U/L (46-116); Anion Gap 12.1; Aspartate Amino Transferase 56 U/L (15-37); Blood Urea Nitrogen 12.0 mg/dL (7.0-18.0); Calcium 8.6 mg/dL (8.5-10.1); Carbon Dioxide 25.7 mmol/L (21.0-32.0); Chloride 110 mmol/L (98-107); Estimated GFR (African America >60 (>=60 mL/min/1.73m^2); Estimated GFR (Non-African Ame >60 (>=60 mL/min/1.73m^2); Globulin 5.1 g/dL; Glucose 92 mg/dL (74-106); Magnesium 1.9 mg/dL (1.8-2.4); Potassium 3.8 mmol/L (3.5-5.1); Sodium 144 mmol/L (136-145); Total Protein 7.0 g/dL (6.4-8.2)
--- NOTE | 2024-09-15 08:30 | CM.NOTE ---
Rounds made with Dr. Arguello, pt still having some underlying confusion this AM. Dr. Arguello discussed diagnosis and plan of care with pt. Pt is inpatient status. PT and OT will evaluate patient for discharge planning.
[2024-09-15] MEDS: DOCUSATE SODIUM 100 MG CAPSULE 200 MG PO ×2 (08:56→22:29)
[2024-09-15] MEDS: SENNOSIDES/DOCUSATE SODIUM 1 TAB TABLET PO (08:56)
--- NOTE | 2024-09-15 11:09 | CM.NOTE ---
Spoke with pt regarding PT recommendations, pt would like Case Management to reach out to daughter (pt lives with daughter Ladi). Case Management called Ladi regarding discharge planning and PT recommendations for skilled therapy. Daughter states pt had hip fx in June and had surgery, pt then went to [facility] for skilled rehab. Pt has been at home for about 3 weeks. Pt uses walker at home with ambulation. Daughter verbalizes concern of mother going back to skilled at discharge d/t pt's eyesight. Pt has bilat cataracts that is awaiting surgery and has severe vision loss. Being in an unfamiliar environment had caused the pt anxiety and pt had difficulty with rehab d/t vision loss. Daughter will be coming to hospital in the next couple hours and discuss this with her mother. Ladi will get into contact with Case Management when she arrives.
[2024-09-15] MEDS: PANTOPRAZOLE SODIUM 40 MG TABLET.DR PO (11:27)
[2024-09-15] MEDS: INSULIN ASPART 300 UNIT/3 ML PEN SUBQ ×3 (11:27→22:28)
[2024-09-15] MEDS: URSODIOL 300 MG CAPSULE PO ×3 (11:27→22:40)
--- NOTE | 2024-09-15 12:04 | PM.HP ---
HPI H&P: HPI History of Present Illness Chief complaint: AMS Narrative: Mrs Lyle is a 64-year-old female with a known diagnosis of nonalcoholic hepatic steatitis and liver cirrhosis. Patient was brought to the emergency room with lethargy, confusion and change in mental status. No fever or chills. No focal weakness or numbness. Patient was found to have an elevated ammonia level. Patient also was found to have UTI. No diarrhea. No vomiting. No hematemesis or melena. No chest pain or palpitation. No shortness of breath Opioid HPI Opioid Management Most Recent Pain and Opioid Data: Last Pain Scale 7 06/22/23, 15:27 Last Pain Assessment Today, 02:00 Last ORT Total Score 0 Today, 01:44 Last ORT Risk Category Low Risk Today, 01:44 Review of Systems ROS Status of ROS 10 or more systems reviewed and unremarkable except as noted in history and below [facility] Medical History (Updated 09/15/24 @ 12:05 by Arnoldo Arguello MD) COPD (chronic obstructive pulmonary disease) ?J44.9 - Chronic obstructive pulmonary disease, unspecified (ICD-10) Urinary retention ?R33.9 - Retention of urine, unspecified (ICD-10) Nonalcoholic steatohepatitis (STANTON) ?K75.81 - Nonalcoholic steatohepatitis (STANTON) (ICD-10) Surgical History (Updated 09/15/24 @ 09:41 by Anila Kong RN) S/P TIPS (transjugular intrahepatic portosystemic shunt) ?Z95.828 - Presence of other vascular implants and grafts (ICD-10) History of open reduction and internal fixation (ORIF) procedure ?Z98.890 - Other specified postprocedural states (ICD-10) Family History (Updated 09/15/24 @ 10:14 by Anila Kong RN) Mother Family history of myocardial infarction Family history of CHF (congestive heart failure) Family history of diabetes mellitus Sister Family history of hypertension Brother Family history of cancer Social History (Updated 09/15/24 @ 10:13 by Anila Kong RN) Within the past year, how often did you have a drink containing alcohol: never Score interpretation: A score less than 3 is consistent with normal alcohol consumption. Smoking status: Current some day smoker Non-prescribed substance use: denies use Highest level of school completed/degree received: high school graduate Little interest or pleasure in doing things: not at all Feeling down, depressed, or hopeless: more than half the days Meds Home Medications and Allergies Home Medications ?Medication ?Instructions ?Recorded ?Confirmed ?Type atorvastatin 10 mg tablet 10 mg PO DAILY 11/18/22 09/14/24 History furosemide 40 mg tablet 40 mg PO BID 11/18/22 09/14/24 History magnesium oxide 400 mg (241.3 mg 400 mg PO DAILY constipation 11/18/22 09/15/24 History magnesium) tablet pantoprazole 40 mg tablet,delayed 40 mg PO DAILY 11/18/22 09/15/24 History release spironolactone 100 mg tablet 50 mg PO BID 11/18/22 09/14/24 History ursodiol 300 mg capsule 300 mg PO QID 11/18/22 09/14/24 History gabapentin 300 mg capsule 300 mg PO Q8H 06/22/23 09/14/24 History albuterol sulfate 90 mcg/actuation 2 inh inhalation Q6H PRN shortness 09/14/24 09/14/24 History aerosol inhaler of breath or wheezing insulin aspart 1 sliding scale dose subcut 09/14/24 09/14/24 History (niacinamide)(U-100) 100 unit/mL(3 USEASDIRECTD mL) subcutaneous pen (Fiasp FlexTouch U-100 Insulin) insulin degludec 200 unit/mL (3 40 unit subcut BID 09/14/24 09/14/24 History mL) subcutaneous pen (Tresiba FlexTouch U-200 insulin) polyethylene glycol 3350 17 17 g PO TID 09/15/24 09/15/24 History gram/dose oral powder (Miralax) tramadol 50 mg tablet 50 mg PO Q4H PRN pain 09/15/24 09/15/24 History Allergies Allergy/AdvReac Type Severity Reaction Status Date / Time No Known Drug Allergies Allergy Verified 09/14/24 21:43 Exam Narrative Exam Narrative: Patient is lying in bed. Awake but not fully alert. Able to simple questions. Unable to provide complaints of details. Patient became frail in appearance. Bitemporal muscle wasting. Upper and lower extremities muscle wasting and atrophy. Neck is supple. Chest is clear, heart is regular. Abdomen is soft, nontender. Minimal ascites evident. Lower extremities no edema. Able to move her extremities. Symmetrical motor and tone. Constitutional Vital Signs, click to edit/add: Last Vital Signs Temp 97.9 F 09/15/24 07:47 Pulse 98 H 09/15/24 10:00 Resp 16 09/15/24 07:47 BP 129/73 09/15/24 07:47 Pulse Ox 96 09/15/24 07:47 O2 Del Method Room Air 09/15/24 07:47 Results Labs Labs: Short CBC 09/14/24 09/15/24 Range/Units 21:40 04:56 WBC 6.4 5.8 (4.0-11.0) 10^3/uL Hgb 16.2 H 15.1 (12.0-16.0) g/dL Hct 48.5 H 45.1 (36.0-48.0) % Plt Count 94 L 87 L (150-450) 10^3/uL BMP 09/14/24 09/15/24 21:40 04:56 Sodium 137 144 Potassium 4.7 3.8 Chloride 106 110 H Carbon Dioxide 24.6 25.7 BUN 11.0 12.0 Creatinine 0.57 0.49 L Glucose 131 H 92 Calcium 9.0 8.6 Liver Function 09/14/24 09/15/24 Range/Units 21:40 04:56 Total Bilirubin 1.9 H 1.5 H (0.2-1.0) mg/dL AST 66 H 56 H (15-37) U/L ALT 39 35 (14-59) U/L Alkaline Phosphatase 379 H 320 H (46-116) U/L Albumin 2.2 L 1.9 L (3.4-5.0) g/dL Urine 09/14/24 Range/Units 21:00 Urine Color Lt. yellow (YELLOW) Urine Clarity Sl cloudy (CLEAR) Urine pH 7.0 (5.0-9.0) Ur Specific [place] <=1.005 A (1.005-1.025) Urine Protein Negative (NEG/TRACE) mg/dL Urine Glucose (UA) Negative (NEGATIVE) mg/dL Assessment and Plan Assessment and Plan (1) Hyperammonemia: (2) UTI (urinary tract infection): (3) Encephalopathy: (4) Thrombocytopenia: Plan Encephalopathy. Likely multifactorial secondary to hepatic encephalopathy with elevated ammonia level, septic encephalopathy secondary to UTI, rule out bacteremia. CT head is negative for acute intracranial process. Clinically I could not exclude the possibility of acute or subacute cerebrovascular accident. Proceed with MRI of the brain if no improvement of her encephalopathy over the next 24 to 48 hours. Start the patient on lactulose and Xifaxan for hepatic encephalopathy Started patient on antibiotic for UTI. Her abdomen is soft nontender. No strong clinical indication of SBP. UTI Urine and blood culture Empiric ceftriaxone IV. Thrombocytopenia Likely secondary to liver cirrhosis Avoid anticoagulation and/or antiplatelets Liver cirrhosis. Reported to be STANTON associated with thrombocytopenia and hepatic encephalopathy Patient with need investigation and surveillance for liver cancer Patient will need investigation and surveillance of portal hypertension and esophageal varices. These are to be addressed in the outpatient setting by PCP and/or hepatology. Calculate MELD score: 10 keep patient new bulimic state. Reduce risk of hepatic encephalopathy Cachexia, frailty, muscle wasting and atrophy, failure to thrive, moderate protein calorie malnutrition Patient would need protein oral supplementation however avoid this at this time due to her ammonia level . Further investigation may be needed to rule out underlying malignancy. Handled by PCP. 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 Patient has failure support and supervision at home as per report. DVT prophylaxis Avoid pharmacological intervention due to thrombocytopenia SCD Chronic medical conditions not listed above, incidental findings seen on labs and imaging. These would need to be addressed. Could be addressed when time and condition are appropriate. Could be addressed in the outpatient setting by PCP collaboration with other needed outpatient providers.
--- NOTE | 2024-09-15 12:30 | DIETREC ---
Recommend 1500 CCD diet d/t IDDM.
[2024-09-15] MEDS: SPIRONOLACTONE 25 MG TABLET PO ×2 (13:05→22:29)
[2024-09-15] MEDS: RIFAXIMIN 550 MG TABLET PO ×2 (13:05→22:29)
--- NOTE | 2024-09-15 13:53 | CM.NOTE ---
Awaiting daughter to come in to speak about discharge planning. Case Management spoke with pt and pt's father regarding discharge planning. Pt at this time is A&Ox3. Updated pt on PT recommendations for skilled therapy. Pt is not opposed to skilled care but would like a list of places that would except insurance. Case Management will call and update pt.
--- NOTE | 2024-09-15 14:45 | CM.NOTE ---
Daughter voices she and mother have talked and feel it would be best for pt to return home with services d/t vision issues and difficulty participating in therapy.
--- NOTE | 2024-09-15 14:47 | SWNOTE1 ---
Important Message from Medicare discussed with pt. Pt verbalized understanding and pt's daughter signed the form. Copy placed in chart and original given to pt.
--- NOTE | 2024-09-15 14:51 | SWNOTE1 ---
PT recommends rehab at SNF for pt at d/c. Per case management pt's daughter would prefer [facility] if pt goes anywhere. I called [facility] to check if they accept pt's insurance and Vernon at [facility] is running pt's benefits. I stopped in pt's room to have her sign IMM. Pt's daughter was at bedside. I let pt and her daughter know we are calling around to see who takes pt's insurance for SNF. Pt's daughter did ask if outpatient therapy was an option. She voiced she would be able to transport pt to and from. I let her know that outpatient therapy is an option so we could look into that. At this time waiting for Vernon at [facility] to run pt's benefits to possibly start precert.
--- NOTE | 2024-09-15 15:04 | SWNOTE1 ---
I received a call from Wendi, [employer] Safety [facility] them currently. She voiced to me that she was concerned with the dynamic between pt and her daughter, Ladi. Wendi voiced that pt's daughter had stated that pt is not a primary concern for her right now. Wendi voiced concern that pt's apartment is very unkempt as well. She also voiced that pt's daughter is unemployed currently and living with pt, and stated she may be living off her mother's money. Wendi did voice she is hopeful pt will go to a care home facility as she would benefit from rehab. I let Wendi know at this time we are working on placement for SNF vs. outpatient therapy.
--- NOTE | 2024-09-15 15:53 | SWNOTE1 ---
Vernon from [facility] called back and they can not accept pt due to insurance being out of network.
--- NOTE | 2024-09-15 16:05 | SWNOTE1 ---
Faxed updates to [facility].
[2024-09-15] MEDS: ATORVASTATIN CALCIUM 10 MG TABLET PO (22:29)
[2024-09-16] VITALS (17 sets, daily range): BP systolic 123–172; BP diastolic 67–82; PULSE 79–112; TEMP 36.7–37.2; O2SAT 97
[2024-09-16] MEDS: URSODIOL 300 MG CAPSULE PO ×4 (05:51→21:11)
[2024-09-16 06:22] LABS: Hematocrit 46.1 % (36.0-48.0); Hemoglobin 15.1 g/dL (12.0-16.0); Mean Corpuscular HGB Conc 32.8 g/dL (29.9-35.2); Mean Corpuscular Hemoglobin 29.6 pg (26.7-34.0); Mean Corpuscular Volume 90.4 fL (81.0-99.0); Platelet Count 80 10^3/uL (150-450); Red Blood Count 5.10 10^6/uL (4.20-5.40); White Blood Count 5.5 10^3/uL (4.0-11.0)
[2024-09-16 06:28] LABS: Alanine Aminotransferase 35 U/L (14-59); Albumin Globulin Ratio 0.4; Albumin Level 1.8 g/dL (3.4-5.0); Alkaline Phosphatase 327 U/L (46-116); Anion Gap 12.8; Aspartate Amino Transferase 49 U/L (15-37); Blood Urea Nitrogen 8.0 mg/dL (7.0-18.0); Calcium 8.3 mg/dL (8.5-10.1); Carbon Dioxide 23.2 mmol/L (21.0-32.0); Chloride 104 mmol/L (98-107); Estimated GFR (African America >60 (>=60 mL/min/1.73m^2); Estimated GFR (Non-African Ame >60 (>=60 mL/min/1.73m^2); Globulin 5.1 g/dL; Glucose 210 mg/dL (74-106); Magnesium 1.6 mg/dL (1.8-2.4); Potassium 4.0 mmol/L (3.5-5.1); Sodium 136 mmol/L (136-145); Total Protein 6.9 g/dL (6.4-8.2)
[2024-09-16 06:33] LABS: Ammonia 58 umol/L (11-32)
--- NOTE | 2024-09-16 09:00 | P.PN_ITS ---
Progress Note: Subjective Subjective Interval history: Patient is much more awake and coherent compared to yesterday. Able to engage more. She continues to have cognitive loss and confusion. Much less than before. Exam Narrative Exam Narrative: Patient is laying in bed. Awake and oriented. Much more coherent than yesterday. Able to engage. She continues to have some confusion about details. Cachectic and frail. Bitemporal muscle wasting. Upper and lower extremities muscle wasting and atrophy. Chest is clear, heart is regular. Abdomen is soft, nontender. Lower extremities no edema. Patient is legally blind Constitutional Vital Signs, click to edit/add: Last Vital Signs Temp 98.1 F 09/16/24 03:05 Pulse 82 09/16/24 07:52 Resp 18 09/16/24 03:05 BP 153/77 H 09/16/24 03:05 Pulse Ox 97 09/16/24 03:05 O2 Del Method Room Air 09/16/24 03:05 Progress Note: Objective Labs Labs: Short CBC 09/16/24 Range/Units 06:03 WBC 5.5 (4.0-11.0) 10^3/uL Hgb 15.1 (12.0-16.0) g/dL Hct 46.1 (36.0-48.0) % Plt Count 80 L (150-450) 10^3/uL BMP 09/16/24 06:03 Sodium 136 Potassium 4.0 Chloride 104 Carbon Dioxide 23.2 BUN 8.0 Creatinine 0.50 L Glucose 210 H Calcium 8.3 L Liver Function 09/16/24 Range/Units 06:03 Total Bilirubin 1.5 H (0.2-1.0) mg/dL AST 49 H (15-37) U/L ALT 35 (14-59) U/L Alkaline Phosphatase 327 H (46-116) U/L Albumin 1.8 L (3.4-5.0) g/dL Progress Note: A&P Assessment and Plan (1) Hyperammonemia: (2) UTI (urinary tract infection): (3) Encephalopathy: (4) Thrombocytopenia: Plan Encephalopathy. Likely multifactorial secondary to hepatic encephalopathy with elevated ammonia level, septic encephalopathy secondary to UTI, rule out bacteremia. CT head is negative for acute intracranial process. Clinically I could not exclude the possibility of acute or subacute cerebrovascular accident. Proceed with MRI of the brain if no improvement of her encephalopathy over the next 24 to 48 hours. Patient is improving. Less likely need of an MRI Started the patient on lactulose and Xifaxan for hepatic encephalopathy. Ammonia level is declining. Patient is having to 3 bowel movement Started patient on antibiotic for UTI. Urine culture is pending Her abdomen is soft nontender. No strong clinical indication of SBP. CAUTI present on admission Urine and blood culture Empiric ceftriaxone IV. Culture is pending. Remove catheter. Monitoring voiding pattern, frequent and volume Urinary retention Patient had significant urinary retention when she was admitted to [facility] 3 weeks ago. Newman catheter was placed and continues to have Newman catheter Remove Newman catheter. Monitor postvoid residual. Reinsert Newman if PVR is mor e than 350. Thrombocytopenia Likely secondary to liver cirrhosis Avoid anticoagulation and/or antiplatelets Liver cirrhosis. Reported to be STANTON associated with thrombocytopenia and hepatic encephalopathy. I reviewed her [facility] record. 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 These are to be addressed in the outpatient setting by PCP and/or hepatology. Calculate MELD score: 10 keep patient euvolemic state. Avoid opiates and benzo. Avoid anticholinergics. Avoid medications with BRANCH BILLING PAYROLL CLERK side effect. Reduce risk of hepatic encephalopathy Cachexia, frailty, muscle wasting and atrophy, failure to thrive, moderate protein calorie malnutrition Patient would need protein oral supplementation however avoid this at this time due to her ammonia level Further investigation may be needed to rule out underlying malignancy. Handled by PCP. 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 Patient has failure support and supervision at home as per report. Encourage ambulation. Up in chair. DVT prophylaxis Avoid pharmacological intervention due to thrombocytopenia SCD Legal blindness secondary to cataract according to her daughter. Patient is scheduled to have cataract surgery within the next few weeks according to her daughter. Chronic medical conditions not listed above, incidental findings seen on labs and imaging. These would need to be addressed. Could be addressed when time and condition are appropriate. Could be addressed in the outpatient setting by PCP collaboration with other needed outpatient providers. Urinary Catheter Management Urinary Catheter Management Urethral: Cath placed during this visit: no
[2024-09-16] MEDS: SPIRONOLACTONE 25 MG TABLET PO ×2 (09:29→21:11)
[2024-09-16] MEDS: RIFAXIMIN 550 MG TABLET PO ×2 (09:29→21:11)
[2024-09-16] MEDS: MAGNESIUM SULFATE IN WATER 2 GM/50 ML PREMIX IV (09:29)
[2024-09-16] MEDS: PANTOPRAZOLE SODIUM 40 MG TABLET.DR PO (09:29)
[2024-09-16] MEDS: INSULIN ASPART 300 UNIT/3 ML PEN SUBQ ×4 (09:30→21:11)
[2024-09-16] MEDS: INSULIN GLARGINE 300 UNIT/3 ML INSULN.PEN 25 UNIT SQ (09:32)
[2024-09-16 10:16] LABS: A. calcoaceticus-baumannii Cpx NOT DETECTED (NOT DETECTE); Bacteroides fragilis NOT DETECTED (NOT DETECTE); Candida auris NOT DETECTED (NOT DETECTE); Candida glabrata NOT DETECTED (NOT DETECTE); Enterobacterales NOT DETECTED (NOT DETECTE); Enterococcus faecalis NOT DETECTED (NOT DETECTE); Enterococcus faecium NOT DETECTED (NOT DETECTE); Klebsiella aerogenes NOT DETECTED (NOT DETECTE); Klebsiella pneumoniae group NOT DETECTED (NOT DETECTE); Proteus spp. NOT DETECTED (NOT DETECTE); Salmonella spp. NOT DETECTED (NOT DETECTE); Serratia marcescens NOT DETECTED (NOT DETECTE); Staphylococcus lugdunensis NOT DETECTED (NOT DETECTE); Stenotrophomonas maltophilia NOT DETECTED (NOT DETECTE); Streptococcus pyogenes NOT DETECTED (NOT DETECTE); Streptococcus spp. NOT DETECTED (NOT DETECTE)
--- NOTE | 2024-09-16 10:36 | PT.DAILY ---
Physical Therapy Daily Note PT Daily Note/Assess Start: 09/16/24 10:30 Freq: Status: Active Protocol: Document 09/16/24 10:00 RYLAND (Rec: 09/16/24 10:36 RYLAND [id number]) Physical Therapy Daily Note/Assessment Time In/Time Out Time In 10:01 Time Out 10:25 Subjective Subjective Patient reports feeling better, agrees to PT. When asked if having pain patient states, I don't think so but if I am it is my R knee, I just had surgery on my R hip in the beginning of August or end of July I can't remember. Therapeutic Exercise Time Therapeutic Exercise 10 Minutes (minutes) Therapeutic Exercise 1 Units Therapeutic Exercise Treatment Therapeutic Exercise Seated exercises with Verbal and tactile cues as needed Treatment to promote improved B LE strength: -Toe raises 10x -Heel raises 10x -Marches 10x -LAQ 10x -Isometric hip adduction 10x -Gentle MRE into hip abduction 10x -Gentle MRE into HS curl 10x Therapeutic Activity Time Therapeutic Activity 13 Minutes (minutes) Therapeutic Activity 1 Units Therapeutic Activity Treatment Chair Transfer Minimum Assist Ability Therapeutic Activity Sit to stand 5x from chair at RW. Patient with one hand Comments on walker and one hand pushing up from chair with min assist due to vision restriction. 1st rep increased assistance required to mod assist for initial standing balance, but balance improves with this with additional reps of exercise. Gait 5'x2 with RW and mod assist due to vision restriction. Verbal cues for maneuvering in tight space. Total Physical Therapy Time Total Therapy 23 Minutes Total Physical 2 Therapy Units Summary Daily Note Summary Patient demonstrates improved ability with transfers and gait today. Requires assistance for safety due to vision restriction. Completed seated exercise program to promote improved strength. Patient is in chair with alarm on, feet elevated, call light in reach and all needs met post RX.
[2024-09-16 11:31] LABS: Source BLOOD; mecA/C NOT DETECTED (NOT DETECTE)
[2024-09-16] MEDS: LACTULOSE 10 GM/15 ML BOTTLE 237 ML 30 GM PO (14:37)
[2024-09-16] MEDS: 0.9 % SODIUM CHLORIDE 250 ML 10 ML IV (14:45)
--- NOTE | 2024-09-16 14:45 | PC.NURSE ---
patient refusing lactulose after much encouragement
--- NOTE | 2024-09-16 18:54 | PC.NURSE ---
PVR 404ml, Dr. Arguello notified, awaiting further orders
[2024-09-16] MEDS: ATORVASTATIN CALCIUM 10 MG TABLET PO (21:11)
[2024-09-16] MEDS: DOCUSATE SODIUM 100 MG CAPSULE 200 MG PO (21:11)
[2024-09-17] VITALS (18 sets, daily range): BP systolic 119–148; BP diastolic 60–84; PULSE 85–106; TEMP 36.7–36.9; O2SAT 95–98
[2024-09-17] MEDS: URSODIOL 300 MG CAPSULE PO ×4 (05:09→21:07)
[2024-09-17 06:25] LABS: Anion Gap 11.6; Blood Urea Nitrogen 9.0 mg/dL (7.0-18.0); Calcium 7.7 mg/dL (8.5-10.1); Carbon Dioxide 24.5 mmol/L (21.0-32.0); Chloride 101 mmol/L (98-107); Estimated GFR (African America >60 (>=60 mL/min/1.73m^2); Estimated GFR (Non-African Ame >60 (>=60 mL/min/1.73m^2); Glucose 253 mg/dL (74-106); Magnesium 1.6 mg/dL (1.8-2.4); Potassium 4.1 mmol/L (3.5-5.1); Sodium 133 mmol/L (136-145)
[2024-09-17 06:29] LABS: Ammonia 80 umol/L (11-32)
[2024-09-17] MEDS: RIFAXIMIN 550 MG TABLET PO ×2 (08:19→21:07)
[2024-09-17] MEDS: SENNOSIDES/DOCUSATE SODIUM 1 TAB TABLET PO (08:19)
[2024-09-17] MEDS: INSULIN GLARGINE 300 UNIT/3 ML INSULN.PEN 25 UNIT SQ (08:20)
[2024-09-17] MEDS: SPIRONOLACTONE 25 MG TABLET PO ×2 (08:20→21:07)
[2024-09-17] MEDS: PANTOPRAZOLE SODIUM 40 MG TABLET.DR PO (08:20)
[2024-09-17] MEDS: DOCUSATE SODIUM 100 MG CAPSULE 200 MG PO ×2 (08:20→21:07)
[2024-09-17] MEDS: INSULIN ASPART 300 UNIT/3 ML PEN SUBQ ×4 (08:21→21:08)
--- NOTE | 2024-09-17 08:42 | P.PN_ITS ---
Progress Note: Subjective Subjective Interval history: Patient is much more awake and coherent compared to yesterday. Able to engage more. She continues to have cognitive loss and confusion. Much less than before. Nursing staff reported the patient had refused to take lactulose twice yesterday. Her ammonia level is rising Exam Narrative Exam Narrative: Patient is laying in bed. Awake and oriented. Much more coherent than yesterday. Able to engage. She continues to have some confusion about details. Cachectic and frail. Bitemporal muscle wasting. Upper and lower extremities muscle wasting and atrophy. Chest is clear, heart is regular. Abdomen is soft, nontender. Lower extremities no edema. Patient is legally blind Constitutional Vital Signs, click to edit/add: Last Vital Signs Temp 98.1 F 09/17/24 07:32 Pulse 86 09/17/24 08:00 Resp 16 09/17/24 07:32 BP 119/61 09/17/24 07:32 Pulse Ox 95 09/17/24 07:32 O2 Del Method Room Air 09/17/24 07:32 Progress Note: Objective Labs Labs: [facility] 09/17/24 06:07 Sodium 133 L Potassium 4.1 Chloride 101 Carbon Dioxide 24.5 BUN 9.0 Creatinine 0.35 L Glucose 253 H Calcium 7.7 L Progress Note: A&P Assessment and Plan (1) Hyperammonemia: (2) UTI (urinary tract infection): (3) Encephalopathy: (4) Thrombocytopenia: Plan Encephalopathy. Likely multifactorial secondary to hepatic encephalopathy with elevated ammonia level, septic encephalopathy secondary to UTI, rule out bacteremia. CT head is negative for acute intracranial process. Clinically I could not exclude the possibility of acute or subacute cerebrovascular accident. Proceed with MRI of the brain if no improvement of her encephalopathy over the next 24 to 48 hours. Patient is improving. Less likely need of an MRI. No focal neurodeficit. Patient is much more coherent and engaging Started the patient on lactulose and Xifaxan for hepatic encephalopathy. Ammonia level declined. Patient requested refused to take it. Lactulose, ammonia level started to rise. I provided the patient education regarding the need to be compliant with the medication Started patient on antibiotic for UTI. Urine culture is pending Her abdomen is soft nontender. No strong clinical indication of SBP. CAUTI present on admission Urine and blood culture Empiric ceftriaxone IV. Culture is pending. Remove catheter. Monitoring voiding pattern, frequent and volume Urinary retention Patient had [facility] Newman catheter was placed and continues to have Newman catheter Newman catheter is removed today. Patient is able to void. Postvoid residual is ranging between [id number] Continue to keep patient off Newman. Risk of recurrent CAUTI and sepsis outweighs benefit. Refer patient to see urology. She may need to have a pelvic exam, urodynamic study and cystoscopy Thrombocytopenia Likely secondary to liver cirrhosis Avoid anticoagulation and/or antiplatelets Liver cirrhosis. Reported to be STANTON associated with thrombocytopenia and hepatic encephalopathy. I reviewed her [facility] record. 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 These are to be addressed in the outpatient setting by PCP and/or hepatology. Calculated MELD score: 10 keep patient euvolemic state. Avoid opiates and benzo. Avoid anticholinergics. Avoid medications with FOREMAN OR SUPERVISOR AND OPERATOR side effect. Reduce risk of hepatic encephalopathy Cachexia, frailty, muscle wasting and atrophy, failure to thrive, moderate protein calorie malnutrition Patient would need protein oral supplementation however avoid this at this time due to her ammonia level Further investigation may be needed to rule out underlying malignancy. Handled by PCP. 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 Patient has failure support and supervision at home as per report. Encourage ambulation. Up in chair. DVT prophylaxis Avoid pharmacological intervention due to thrombocytopenia SCD Legal blindness secondary to cataract according to her daughter. Patient is scheduled to have cataract surgery within the next few weeks according to her daughter. Chronic medical conditions not listed above, incidental findings seen on labs and imaging. These would need to be addressed. Could be addressed when time and condition are appropriate. Could be addressed in the outpatient setting by PCP collaboration with other needed outpatient providers. Urinary Catheter Management Urinary Catheter Management Urethral: Cath placed during this visit: yes, but has since been removed by the nurse Removal date: 09/16/24 Removal time: 09:23
[2024-09-17] MEDS: INSULIN GLARGINE 300 UNIT/3 ML INSULN.PEN SQ (10:23)
[2024-09-17] MEDS: MAGNESIUM SULFATE IN WATER 2 GM/50 ML PREMIX IV (10:25)
[2024-09-17] MEDS: LACTULOSE 10 GM/15 ML BOTTLE 237 ML 30 GM PO ×2 (13:12→21:07)
[2024-09-17 15:18] LABS: Staphylococcus epidermidis DETECTED (NOT DETECTE); Staphylococcus spp. DETECTED (NOT DETECTE)
[2024-09-17] MEDS: ATORVASTATIN CALCIUM 10 MG TABLET PO (21:07)
[2024-09-18] VITALS (7 sets, daily range): BP systolic 120–140; BP diastolic 64–73; PULSE 88–110; TEMP 36.7–37.1; O2SAT 93–99
[2024-09-18] MEDS: URSODIOL 300 MG CAPSULE PO (05:21)
[2024-09-18] MEDS: LACTULOSE 10 GM/15 ML BOTTLE 237 ML 30 GM PO (05:21)
[2024-09-18 05:38] LABS: Magnesium 1.6 mg/dL (1.8-2.4)
[2024-09-18 06:17] LABS: Ammonia 66 umol/L (11-32)
[2024-09-18] MEDS: INSULIN ASPART 300 UNIT/3 ML PEN SUBQ (08:10)
[2024-09-18] MEDS: INSULIN GLARGINE 300 UNIT/3 ML INSULN.PEN 30 UNIT SQ (08:12)
[2024-09-18] MEDS: SENNOSIDES/DOCUSATE SODIUM 1 TAB TABLET PO (08:15)
[2024-09-18] MEDS: RIFAXIMIN 550 MG TABLET PO (08:15)
[2024-09-18] MEDS: SPIRONOLACTONE 25 MG TABLET PO (08:15)
[2024-09-18] MEDS: DOCUSATE SODIUM 100 MG CAPSULE 200 MG PO (08:15)
[2024-09-18] MEDS: PANTOPRAZOLE SODIUM 40 MG TABLET.DR PO (08:15)
[2024-09-18] MEDS: MAGNESIUM OXIDE 400 MG TABLET PO (08:16)
--- NOTE | 2024-09-18 09:00 | CM.NOTE ---
Pt continues to have underlying confusion, Dr. Roberto will consult teleneuro and get MRI.
--- NOTE | 2024-09-18 09:00 | CM.NOTE ---
Rounds made with Dr. Roberto, discussed with pt AM labs and elevated ammonia level. Newman has been removed will do bladder scan q8hr to f/u on bladder empting. SW will discuss again with pt and daughter regarding skilled therapy at discharge and home safety.
[2024-09-18 09:44] LABS: Hematocrit 43.8 % (36.0-48.0); Hemoglobin 14.7 g/dL (12.0-16.0); Immature Granulocytes Abs Auto 0.01 10^3/uL (0.00-0.03); Immature Granulocytes Pct Auto 0.2 % (0.0-0.5); Lymphocytes Absolute Auto 1.0 10^3/uL (1.2-3.8); Mean Corpuscular HGB Conc 33.6 g/dL (29.9-35.2); Mean Corpuscular Hemoglobin 29.9 pg (26.7-34.0); Mean Corpuscular Volume 89.2 fL (81.0-99.0); Platelet Count 83 10^3/uL (150-450); Red Blood Count 4.91 10^6/uL (4.20-5.40); White Blood Count 5.1 10^3/uL (4.0-11.0)
--- NOTE | 2024-09-18 10:38 | SWNOTE1 ---
SW spoke to case management and at this time it is still recommended that pt goes to a assisted facility for rehab for a short time. No family in room at this time and pt has altered mental status. SW called and left message for pt's daughter, Sona, to discuss dc planning.
--- NOTE | 2024-09-18 10:40 | SWNOTE1 ---
[facility] did call to see if pt was discharged over the weekend. SW let them know pt is still here and going to discuss SNF again with family.
--- NOTE | 2024-09-18 11:16 | P.PN_ITS ---
Progress Note: Subjective Subjective Interval history: I took over this patient's care today. She is alert and x 3 however appears to be more confused when having conversation deeper than just questioning her about the place person and time. He was sitting up in the chair not in acute distress. Denies any complaints today. No fever no chills. Ammonia still elevated today. Exam Narrative Exam Narrative: Constitutional: no apparent distress and alert and oriented x 3. Very frail and fragile. Bitemporal muscle wasting was noticed. Somewhat confused when having some conversation with her. HENMT Common normals: normocephalic and head/scalp atraumatic Eye Common normals: PERRL and EOMs intact bilaterally Respiratory Common normals: normal respiratory effort, no retractions, no use of accessory muscles and clear to auscultation bilaterally Cardio Common normals: regular rate, regular rhythm, S1 normal heart sound and S2 normal heart sound GI Common normals: Normal to inspection, nondistended, normoactive bowel sounds present, soft to palpation and non-tender, no ascites on my exam Extremity Common normals: normal to inspection Neuro Common normals: CN's II-XII intact bilaterally and moves all extremities Sensorium/orientation: oriented to person, place, and year. Show some confusion when trying to ask other questions. Follow commands no focal logic deficits on my exam Constitutional Vital Signs, click to edit/add: Last Vital Signs Temp 98.4 F 09/18/24 07:34 Pulse 100 H 09/18/24 07:34 Resp 16 09/18/24 07:34 BP 120/68 09/18/24 07:34 Pulse Ox 95 09/18/24 07:34 O2 Del Method Room Air 09/18/24 07:34 Progress Note: Objective Labs Labs: Short CBC 09/18/24 Range/Units 09:33 WBC 5.1 (4.0-11.0) 10^3/uL Hgb 14.7 (12.0-16.0) g/dL Hct 43.8 (36.0-48.0) % Plt Count 83 L (150-450) 10^3/uL Progress Note: A&P Assessment and Plan (1) Hyperammonemia: (2) UTI (urinary tract infection): (3) Encephalopathy: (4) Thrombocytopenia: Plan Encephalopathy. Likely multifactorial secondary to hepatic encephalopathy with elevated ammonia level, septic encephalopathy secondary to UTI, rule out bacteremia. CT head is negative for acute intracranial process. Clinically I could not exclude the possibility of acute or subacute cerebrovascular accident. Proceed with MRI of the brain if no improvement of her encephalopathy over the next 24 to 48 hours. Start the patient on lactulose and Xifaxan for hepatic encephalopathy Started patient on antibiotic for UTI. Her abdomen is soft nontender. No strong clinical indication of SBP. UTI Urine and blood culture Empiric ceftriaxone IV. Thrombocytopenia Likely secondary to liver cirrhosis Avoid anticoagulation and/or antiplatelets Liver cirrhosis. Reported to be STANTON associated with thrombocytopenia and hepatic encephalopathy Patient with need investigation and surveillance for liver cancer Patient will need investigation and surveillance of portal hypertension and esophageal varices. These are to be addressed in the outpatient setting by PCP and/or hepatology. Calculate MELD score: 10 Reduce risk of hepatic encephalopathy Cachexia, frailty, muscle wasting and atrophy, failure to thrive, moderate protein calorie malnutrition Patient would need protein oral supplementation however avoid this at this time due to her ammonia level . Further investigation may be needed to rule out underlying malignancy. Handled by PCP. 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 Patient has failure support and supervision at home as per report. DVT prophylaxis Avoid pharmacological intervention due to thrombocytopenia SCD 09/18/2024 patient's ammonia still elevated today. Appears to be alert oriented and awake however does appear to be somewhat confused when asking a couple questions other than the orientation questions. No fever no leukocytosis on labs. Still hypomagnesemic she is on magnesium p.o. twice daily which we will continue. I will obtain MRI brain without contrast to better delineate her encephalopathy reasons. I am continuing her UTI treatment with IV ceftriaxone for now. Pending urine cultures. Tried to reach out to her daughter Flaca over the phone to discuss her the plan. Could not get a hold of her and kept voicemail message for her. Also patient was seen by PT recommended SNF, I had a conversation with the physical therapist as well today however patient's family wishing to bring her back home once stable. Patient at high risk of fall and readmissions at the time understands that. I ordering bladder scan every 8 hour to make sure patient does not need any Newman. She we will have urology follow- up regardless as she may need aerodynamic study and cystoscopy urology as outpatient. Urinary Catheter Management Urinary Catheter Management Urethral: Cath placed during this visit: yes, but has since been removed by the nurse Removal date: 09/16/24 Removal time: 09:23
--- NOTE | 2024-09-18 11:42 | CM.NOTE ---
2nd Important message From [employer] discussed with pt and daughter, denies questions or concerns.
--- NOTE | 2024-09-18 13:16 | SWNOTE1 ---
Pt's daughter signed pt out Against Medical Advice. NOEMY called [facility] and updated them. Lisseth voiced that she will have to call pt's PCP to get an order to resume HH. NOEMY did send [facility] updated physician note from today and therapy from today.
--- NOTE | 2024-09-18 14:45 | CM.NOTE ---
Spoke with Dr. Roberto regarding pt leaving AMA and if he would like an antibiotic or lactulose called in for pt. Orders received and called in Cefpodoxime 100mg P.O BID for 5 days and lactulose 20gms P.O TID goal for pt to have 3 BM's daily. Called pt's daughter at home (Ladi) about medications being called into [facility], reason for medications and how to take. Daughter very appreciative and verbalizes understanding.
--- NOTE | 2024-09-21 11:32 | P.DS_ITS ---
DS: Providers Provider Date of admission: 09/15/24 01:30 Primary care physician: FAY BERMUDEZ Consults: 09/15/24 Occupational Therapy Eval and Treat Routine Reason for consultation: weakness Physical Therapy Eval and Treat Routine Reason for consultation: weakness 09/15/24 08:17 Physical Therapy Eval and Treat Routine Reason for consultation: Weakness Discharging clinician: Digna Roberto Anticipated date of discharge: 08/19/24 DS: Diagnosis Discharge Diagnosis (1) Hyperammonemia: (2) UTI (urinary tract infection): (3) Encephalopathy: (4) Thrombocytopenia: DS: Summary Hospital Course Hospital Course: Mrs Lyle is a 64-year-old female with a known diagnosis of nonalcoholic hepatic steatitis and liver cirrhosis. Patient was brought to the emergency room with lethargy, confusion and change in mental status. No fever or chills. No focal weakness or numbness. Patient was found to have an elevated ammonia level. Patient also was found to have UTI. No diarrhea. No vomiting. No hematemesis or melena. No chest pain or palpitation. No shortness of breath. Encephalopathy. Likely multifactorial secondary to hepatic encephalopathy with elevated ammonia level, septic encephalopathy secondary to UTI, rule out bacteremia. CT head is negative for acute intracranial process. Clinically I could not exclude the possibility of acute or subacute cerebrovascular accident. Proceed with MRI of the brain if no improvement of her encephalopathy over the next 24 to 48 hours. Start the patient on lactulose and Xifaxan for hepatic encephalopathy Started patient on antibiotic for UTI. Her abdomen is soft nontender. No strong clinical indication of SBP. UTI Urine and blood culture Empiric ceftriaxone IV. Thrombocytopenia Likely secondary to liver cirrhosis Avoid anticoagulation and/or antiplatelets Liver cirrhosis. Reported to be STANTON associated with thrombocytopenia and hepatic encephalopathy Patient with need investigation and surveillance for liver cancer Patient will need investigation and surveillance of portal hypertension and esophageal varices. These are to be addressed in the outpatient setting by PCP and/or hepatology. Calculate MELD score: 10 Reduce risk of hepatic encephalopathy Cachexia, frailty, muscle wasting and atrophy, failure to thrive, moderate p rotein calorie malnutrition Patient would need protein oral supplementation however avoid this at this time due to her ammonia level . Further investigation may be needed to rule out underlying malignancy. Handled by PCP. 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 Patient has failure support and supervision at home as per report. DVT prophylaxis Avoid pharmacological intervention due to thrombocytopenia SCD 09/18/2024 patient's ammonia still elevated today. Appears to be alert oriented and awake however does appear to be somewhat confused when asking a couple questions other than the orientation questions. No fever no leukocytosis on labs. Still hypomagnesemic she is on magnesium p.o. twice daily which we will continue. I will obtain MRI brain without contrast to better delineate her encephalopathy reasons. I am continuing her UTI treatment with IV ceftriaxone for now. Pending urine cultures. Tried to reach out to her daughter Flaca over the phone to discuss her the plan. Could not get a hold of her and kept voicemail message for her. Also patient was seen by PT recommended SNF, I had a conversation with the physical therapist as well today however patient's family wishing to bring her back home once stable. Patient at high risk of fall and readmissions at the time understands that. I ordering bladder scan every 8 hour to make sure patient does not need any Newman. She we will have urology follow- up regardless as she may need aerodynamic study and cystoscopy urology as outpatient. Same day update, I was informed by the nursing team that the patient's daughter wants to take her home AMA as she is fed up . Tried to speak to her over the phone could not get a hold of her. Nursing tried to speak to the patient's daughter as well and to explain to her that the patient faces a risk of complication including severe encephalopathy and liver failure followed by . Patient daughter understand and she still wants her to leave AMA. She signed the forms and left AMA. I still sent her lactulose as well as cefpodoxime. My nursing hospitalist spoke to the patient's daughter and educated on the medication that I sent even though the patient left AMA. Just wanted to try to avoid readmissions. Patient's daughter was appreciative those efforts. Fortunately patient left AMA and could not let me continue to care for Time Spent with Patient Time attestation: Total time spent providing and/or coordinating discharge services: Exam Constitutional Vital Signs, click to edit/add: Last Vital Signs Temp 98.0 F 09/18/24 11:59 Pulse 100 H 09/18/24 11:59 Resp 16 09/18/24 11:59 BP 140/73 09/18/24 11:59 Pulse Ox 99 09/18/24 11:59 O2 Del Method Room Air 09/18/24 11:59 DS: Data Data Completed and Pending Labs on day of discharge: Preliminary micro results at discharge 09/14/24 00:12 Anaerobe Identification - Preliminary Blood Discharge Plan Discharge Disposition: Left Against Medical Advice Discharge Date/Time: 09/18/24 12:12
== END 2024-09-18 12:12 | disposition left against medical advice (07) | DRG 698 ==
LOC: ER 21:26 → MS 09-15 01:33
PROVIDERS: Admitting Provider Internal Medicine; Emergency Provider Internal Medicine; PCP Nurse Practitioner; Visit Provider Student in an Organized Health Care Education/Training Program
DX: T83.511A Infection and inflammatory reaction due to indwelling urethral catheter, initial encounter (principal); G93.41 Metabolic encephalopathy; E72.20 Disorder of urea cycle metabolism, unspecified; E44.0 Moderate protein-calorie malnutrition; R64 Cachexia; N39.0 Urinary tract infection, site not specified; Z53.29 Procedure and treatment not carried out because of patient's decision for other reasons; D69.6 Thrombocytopenia, unspecified; K74.60 Unspecified cirrhosis of liver; K75.81 Nonalcoholic steatohepatitis (NASH); K76.82 Hepatic encephalopathy; F17.200 Nicotine dependence, unspecified, uncomplicated; J44.9 Chronic obstructive pulmonary disease, unspecified; Z74.09 Other reduced mobility; H54.8 Legal blindness, as defined in USA; R33.9 Retention of urine, unspecified; E83.42 Hypomagnesemia; B96.89 Other specified bacterial agents as the cause of diseases classified elsewhere; Z91.148 Patient's other noncompliance with medication regimen for other reason
CPT/HCPCS: 36415; 51798; 70450; 71045; 80048; 80053; 80320; 81001; 82140; 82948; 83605; 83735; 84100; 84484; 85007; 85025; 85027; 85610; 87040; 87077; 87086; 87088; 87150; 87186; 93005; 97110; 97162; 97165; 97530; 99285; J0696; J3475